=== PATIENT | female | born 1945 | race Hispanic/Latino ===

== ENCOUNTER 2016-06-08 20:24 | Inpatient (IN) | payer MEDICARE ==
[2016-06-08 20:30] VITALS: BMI 37.2
[2016-06-08 21:24] LABS: ADD MANUAL DIFF? NO
--- NOTE | 2016-06-08 21:37 | ED PDOC ---
Arrival/HPI - General Chief Complaint: Shortness Of Breath Time Seen by Provider: 06/08/16 20:31 Historian: Patient - History of Present Illness Narrative History of Present Illness (Text): 06/08/16 21:35 70 year old female with a past medical history that includes COPD and CHF presents to the emergency department with increasing shortness of breath since yesterday. Patient also reports chronic dry cough. Denies chest pain, fever, nausea, or vomiting. Time/Duration: 24 hours Symptom Onset: Gradual Symptom Course: Unchanged Modifying Factors (Text): None Associated Symptoms (Text): None Past Medical History - Provider Review Nursing Documentation Reviewed: Yes - Infectious Disease Hx of Infectious Diseases: None - Tetanus Immunization Tetanus Immunization: Unknown - Cardiac Hx Cardiac Disorders: Yes Hx Congestive Heart Failure: Yes Hx Hypertension: Yes - Pulmonary Hx Chronic Obstructive Pulmonary Disease (COPD): Yes (Home O2 2L) - Neurological Hx Neurological Disorder: Yes - HEENT Hx HEENT Disorder: No - Renal Hx Renal Failure: Yes - Endocrine/Metabolic Hx Diabetes Mellitus Type 2: Yes Hx Hypothyroidism: Yes - Hematological/Oncological Hx Blood Transfusions: No Hx Blood Transfusion Reaction: No - Integumentary Hx Dermatological Disorder: Yes Other/Comment: +3 pitting edema ble redness dry skin, toenail was removed to b/ l great toes " yrs ago". small red area to nose - Musculoskeletal/Rheumatological Hx Falls: No - Gastrointestinal Hx Gastrointestinal Disorders: Yes (obesity) Hx Gastroesophageal Reflux: Yes (GI bleed) - Genitourinary/Gynecological Hx Genitourinary Disorders: Yes Hx Incontinence: Yes - Psychiatric Hx Emotional Abuse: No Hx Physical Abuse: No Hx Substance Use: No - Surgical History Hx Cardiac Catheterization: Yes Hx Hysterectomy: Yes Hx Joint Replacement: Yes (bilateral knee replacement) Other/Comment: L breast lumpectomy, h/o breast CA, rcw pac - Anesthesia Hx Anesthesia Reactions: No Hx Malignant Hyperthermia: No - Suicidal Assessment Feels Threatened In Home Enviroment: No Family/Social History - Physician Review Nursing Documentation Reviewed: Yes Family/Social History: Unknown Family HX Smoking Status: Heavy Smoker > 10 Cigarettes Daily Hx Alcohol Use: No Hx Substance Use: No Hx Substance Use Treatment: No Allergies/Home Meds Allergies/Adverse Reactions: Allergies No Known Allergies Allergy (Verified 06/08/16 20:30) Home Medications: Home Meds Medication Instructions Recorded Confirmed Aspirin [Aspir 81] 81 mg PO DAILY 10/29/12 05/06/16 Furosemide [Lasix] 20 mg PO QPM 01/14/16 05/06/16 Furosemide [Lasix] 40 mg PO QAM 01/14/16 05/06/16 Potassium Chloride [Klor-Con 10] 10 meq PO DAILY 01/14/16 05/06/16 oxyCODONE [oxyCODONE Immediate 1 tab PO Q6H PRN 01/14/16 05/06/16 Release Tab] Review of Systems - Physician Review All systems were reviewed & negative as marked: Yes - Review of Systems Constitutional: absent: Fevers Respiratory: SOB, Cough (chronic) Cardiovascular: absent: Chest Pain Gastrointestinal: absent: Nausea, Vomiting Physical Exam Vital Signs Reviewed: Yes Vital Signs Temp Pulse Resp BP Pulse Ox 06/08/16 21:34 117/61 06/08/16 20:31 98.2 F 82 25 H 117/61 94 L 06/08/16 20:30 98.2 F 82 25 H 117/61 94 L Temperature: Afebrile Blood Pressure: Normal Pulse: Regular Respiratory Rate: Tachypneic Appearance: Positive for: Well-Appearing, Non-Toxic, Comfortable Pain Distress: None Mental Status: Positive for: Alert and Oriented X 3 - Systems Exam Head: Present: Atraumatic, Normocephalic Pupils: Present: PERRL Extroacular Muscles: Present: EOMI Conjunctiva: Present: Normal Mouth: Present: Moist Mucous Membranes Neck: Present: Normal Range of Motion Respiratory/Chest: Present: Good Air Exchange, Rales (at the bases bilaterally) . No: Respiratory Distress, Accessory Muscle Use Cardiovascular: Present: Normal S1, S2, Irregular Rhythm (Irregularly irregular) . No: Murmurs Abdomen: Present: Normal Bowel Sounds. No: Tenderness, Distention, Peritoneal Signs Back: Present: Normal Inspection Upper Extremity: Present: Normal Inspection. No: Cyanosis, Edema Lower Extremity: Present: Edema (Bilateral edema with warmth and redness. ) Neurological: Present: GCS=15, CN II-XII Intact, Speech Normal Skin: Present: Warm, Dry, Normal Color. No: Rashes Psychiatric: Present: Alert, Oriented x 3, Normal Insight, Normal Concentration Medical Decision Making ED Course and Treatment: Impression: 70 year old female with a past medical history that includes COPD and CHF presents to the emergency department with increasing shortness of breath since yesterday. Differential Diagnosis included but are not limited to: COPD exacerbation vs CHF exacerbation Plan: -- EKG, Chest X-ray -- Lasix -- Labs -- Reassess and disposition Prior Visits: Notes and results from previous visits were reviewed. Patient was admitted for cellulitis on 05/06/16. Progress Notes: 06/08/16 21:40 EKG shows atrial fibrillation at 80 BPM, no changes from previous EKG, interpreted by me. . - Lab Interpretations Lab Results: 06/08/16 21:05 06/08/16 21:05 Lab Results 06/08/16 21:05: WBC 8.0 D, RBC 2.73 L, Hgb 7.6 L, Hct 24.8 L, MCV 90.8, MCH 27.8, MCHC 30.6 L, RDW 17.0 H, Plt Count 252, MPV 10.5, Gran % 68.4 H, Lymph % ( Auto) 19.8 L, [place] % (Auto) 8.3 H, Eos % (Auto) 3.1, Baso % (Auto) 0.4, Gran # 5.46, Lymph # 1.6, [place] # 0.7 H, Eos # 0.3, Baso # 0.03, Sodium 136, Potassium 3.6, Chloride 98, Carbon Dioxide 28, Anion Gap 14, BUN 43 H, Creatinine 0.9, Est GFR ( Amer) > 60, Est GFR (Non-Af Amer) > 60, Random Glucose 206 H, Calcium 8.9, Magnesium 1.7, Total Bilirubin 0.5, AST 15, ALT 13, Alkaline Phosphatase 73, Lactate Dehydrogenase 377, Total Creatine Kinase 27 L, Troponin I 0.02 D, NT-Pro-B Natriuret Pep 2350 H, Total Protein 6.2, Albumin 3.7, Globulin 2.6, Albumin/Globulin Ratio 1.4 - RAD Interpretation Radiology Orders: 06/08/16 20:35 CHEST PORTABLE [RAD] Stat - EKG Interpretation Interpreted by ED Physician: Yes Type: 12 lead EKG - Medication Orders Current Medication Orders: Discontinued Medications Furosemide (Lasix) 40 mg IVP STAT STA Stop: 06/08/16 20:58 Last Admin: 06/08/16 21:34 Dose: 40 MG MAR Blood Pressure Document 06/08/16 21:34 [email or web address] (Rec: 06/08/16 21:34 [email or web address] [id number]) Blood Pressure Blood Pressure (100/60-150/90) 117/61 IVP Administration Document 06/08/16 21:34 [email or web address] (Rec: 06/08/16 21:34 [email or web address] [id number]) Charges for Administration # of IVP Administrations 1 - Scribe Statement The provider has reviewed the documentation as recorded by the Martina Virk Provider Scribe Attestation: All medical record entries made by the Martina were at my direction and personally dictated by me. I have reviewed the chart and agree that the record accurately reflects my personal performance of the history, physical exam, medical decision making, and the department course for this patient. I have also personally directed, reviewed, and agree with the discharge instructions and disposition. Disposition/Present on Arrival - Present on Arrival Any Indicators Present on Arrival: No History of DVT/PE: No History of Uncontrolled Diabetes: No Urinary Catheter: No History of Decub. Ulcer: No History Surgical Site Infection Following: None - Disposition Have Diagnosis and Disposition been Completed?: Yes Diagnosis: CHF (congestive heart failure) Disposition: HOSPITALIZED Disposition Time: 23:00 Patient Plan: Admission, Telemetry Condition: STABLE Discharge Instructions (ExitCare): Heart Failure (ED)
[2016-06-08 22:04] LABS: BASO # 0.03 K/mm3 (0.0-2.0); BASO % 0.4 % (0.0-3.0); EOS # 0.3 (0.0-0.7); EOS % 3.1 % (1.5-5.0); GRAN # 5.46 (1.4-6.5); GRAN % 68.4 % (50.0-68.0); HEMATOCRIT 24.8 % (36.0-48.0); LYMPH # 1.6 (1.2-3.4); LYMPH % 19.8 % (22.0-35.0); MEAN CELL VOLUME 90.8 fL (80.0-105.0); MEAN CORPUSCULAR HEMOGLOBIN 27.8 pg (25.0-35.0); MEAN CORPUSCULAR HGB CONC 30.6 g/dl (31.0-37.0); MEAN PLATELET VOLUME 10.5 fl (7.0-11.0); MONO # 0.7 (0.1-0.6); MONO % 8.3 % (1.0-6.0); PLATELET COUNT 252 10^3/uL (120.0-450.0)
[2016-06-08 22:08] LABS: ALB/GLOB RATIO 1.4 (1.1-1.8); ALKALINE PHOSPHATASE 73 U/L (38-133); ALT/SGPT 13 U/L (7-56); AST/SGOT 15 U/L (15-39); BILIRUBIN,TOTAL 0.5 mg/dL (0.2-1.3); BLOOD UREA NITROGEN 43 mg/dL (7-21); CALCIUM 8.9 mg/dL (8.4-10.5); CARBON DIOXIDE 28 mmol/L (21-33); CHLORIDE 98 mmol/L (98-107); GFR AFRICAN-AMERICAN > 60; GLUCOSE,RANDOM 206 mg/dL (70-110); MAGNESIUM 1.7 mg/dL (1.7-2.2); POTASSIUM 3.6 mmol/L (3.6-5.0); SODIUM 136 mmol/L (132-148); TOTAL PROTEIN 6.2 g/dL (5.8-8.3)
[2016-06-08 22:19] LABS: TROPONIN I 0.02 ng/mL
[2016-06-08] MEDS ORDERED: Albuterol-Ipratrop 3 mg / 0.5 (3 ml) UD IH PRN ×2 (23:17→23:19)
[2016-06-08] MEDS ORDERED: Oxycodone/Acetaminophen 5/325 mg Tab PO PRN (23:19)
[2016-06-09 00:07] LABS: URINE BILIRUBIN NEGATIVE (NEGATIVE); URINE BLOOD SMALL (NEGATIVE); URINE GLUCOSE (UA) NEGATIVE (NEGATIVE); URINE KETONE NEGATIVE (NEGATIVE); URINE LEUKOCYTE ESTERASE SMALL Leu/uL (NEGATIVE); URINE PROTEIN NEGATIVE mg/dL (<30 mg/dL); URINE UROBILINOGEN 0.2 E.U./dL (<1 E.U./dL)
[2016-06-09 00:09] LABS: URINE APPEARANCE SLIGHT-CLOUDY (CLEAR); URINE COLOR YELLOW (YELLOW)
[2016-06-09 00:25] LABS: URINE BACTERIA SMALL (NEG)
[2016-06-09] MEDS: Pantoprazole 40 mg EC Tab PO SCH (06:35)
[2016-06-09 06:45] LABS: ADD MANUAL DIFF? NO
[2016-06-09 07:10] LABS: BASO # 0.01 K/mm3 (0.0-2.0); BASO % 0.1 % (0.0-3.0); EOS # 0.3 (0.0-0.7); EOS % 3.7 % (1.5-5.0); GRAN % 58.2 % (50.0-68.0); HEMATOCRIT 25.9 % (36.0-48.0); LYMPH # 1.9 (1.2-3.4); MEAN CELL VOLUME 89.9 fL (80.0-105.0); MEAN CORPUSCULAR HEMOGLOBIN 27.4 pg (25.0-35.0); MEAN CORPUSCULAR HGB CONC 30.5 g/dl (31.0-37.0); MEAN PLATELET VOLUME 10.4 fl (7.0-11.0); MONO # 0.7 (0.1-0.6); PLATELET COUNT 220 10^3/uL (120.0-450.0); WHITE BLOOD COUNT 6.7 10^3/ul (4.5-11.0)
[2016-06-09 07:12] LABS: ALB/GLOB RATIO 1.3 (1.1-1.8); ALKALINE PHOSPHATASE 72 U/L (38-133); ALT/SGPT 16 U/L (7-56); AST/SGOT 18 U/L (15-39); BILIRUBIN,TOTAL 0.4 mg/dL (0.2-1.3); BLOOD UREA NITROGEN 43 mg/dL (7-21); CALCIUM 9.2 mg/dL (8.4-10.5); CARBON DIOXIDE 31 mmol/L (21-33); CHLORIDE 98 mmol/L (98-107); GFR AFRICAN-AMERICAN > 60; GLUCOSE,RANDOM 172 mg/dL (70-110); MAGNESIUM 1.8 mg/dL (1.7-2.2); PHOSPHOROUS 3.9 mg/dL (2.5-4.5); POTASSIUM 3.7 mmol/L (3.6-5.0); SODIUM 140 mmol/L (132-148); TOTAL PROTEIN 6.2 g/dL (5.8-8.3)
[2016-06-09 07:15] LABS: TROPONIN I 0.03 ng/mL
[2016-06-09 07:24] LABS: INR 4.46 (0.93-1.08)
[2016-06-09] MEDS: Insulin Reg-MEDIUM-Coverage SC SCH ×4 (07:52→22:42)
[2016-06-09] MEDS ORDERED: Insulin Regular 1 UNITS/0.01 ML ML ONE (07:53)
--- NOTE | 2016-06-09 10:04 | CARD ---
APPROVED REPORT EKG Measurement Heart [id number] <Conclusion> Atrial fibrillation Anterior infarct, old IMI, old STTW changes c/w ischemia No change
[2016-06-09] MEDS: Potassium Chloride 10 mEq ER Tab PO SCH (11:20)
--- NOTE | 2016-06-09 12:04 | RAD ---
HISTORY: SOB COMPARISON: Comparison is made to the previous study dated 05/06/2016 FINDINGS: LUNGS: Mild pulmonary vascular congestion is noted. PLEURA: No significant pleural effusion identified, no pneumothorax apparent. CARDIOVASCULAR: The cardiac silhouette is enlarged. OSSEOUS STRUCTURES: No significant abnormalities. VISUALIZED UPPER ABDOMEN: Normal. OTHER FINDINGS: Right-sided subclavian catheter is seen in place. IMPRESSION: Cardiomegaly and mild pulmonary vascular congestion.
[2016-06-09] MEDS ORDERED: Levalbuterol 1.25 MG/3 ML Inhal Soln UD IH PRN (12:13)
[2016-06-09] MEDS: Tiotropium 18 mcg Cap For Inhalation IH SCH (12:38)
--- NOTE | 2016-06-09 13:30 | HP ---
HISTORY OF PRESENT ILLNESS: The patient is a 70-year-old who came to Emergency Room because of incre asing cough, congestion and bilateral leg swelling. She denies any fever or chills. She denies any nausea or vomiting. She did not have black stool nor hemoptysis, no hematemesis. She does have occa sional dry cough, but no fever or chills noted at home. However, she did complain of increasing shor tness of breath that was going on for the last few days, but it got worse last night, so she came to the ER. PAST MEDICAL HISTORY: Significant for: 1. Hypertension. 2. Coronary artery disease, status post cardiac cath. She was found to have portal RCA occlusion wi th good collateral development. 3. History of pulmonary hypertension. 4. Congestive gastropathy. 5. Cardiac cirrhosis. 6. Morbid obesity. 7. Status post right carotid endarterectomy. 8. Non-insulin dependent diabetes. 9. Chronic anemia, status post multiple endoscopies. 10. Chronic atrial fibrillation. 11. Chronic anemia. ALLERGIES: She is not allergic to any medications. MEDICATIONS AT HOME: She is on hydralazine 50 mg twice a day. She is on Coumadin 5 mg daily, valsar [place] 320 daily, Spiriva 18 mcg daily. She is on Janumet one twice a day, potassium 10 mEq debo ly, nadolol 20 mg daily, isosorbide 60 mg daily, Amaryl 4 mg twice a day, Lasix 20 mg daily, Advair 2 50/50 one puff twice a day, aspirin 81 daily and nebulizer treatment. SOCIAL HISTORY: She lives by herself. She has a daughter who lives a little distance from the [facility], but in the same town. She actively smokes almost half pack a day. REVIEW OF SYSTEMS: Significant for leg swelling, increasing shortness of breath and generalized body aches and pain. PHYSICAL EXAMINATION: GENERAL: She is awake and alert, communicative. VITAL SIGNS: She is afebrile, pulse 78, respirations 22, blood pressure 124/60. LUNGS: Bilateral expiratory rhonchi. Soft crackle at bases. HEART: S1, S2 audible. ABDOMEN: Soft, obese, nontender, no rebound, no guarding. NEUROLOGIC: The patient is awake and alert, communicative. EXTREMITIES: Bilateral leg +2 edema. LABORATORY EXAMINATION: Upon admission, her WBC 8.0, hemoglobin 7.6; followup hemoglobin is 7.9, hem atocrit 25.9 and PT is 48.2, INR 4.46. Chemistry: Sodium 140, potassium 3.7, chloride 98, CO2 31, B UN 43, creatinine 0.9, blood sugar 174. BNP is 2350. Urinalysis shows positive nitrites and leukocy te is small. Her x-ray chest shows cardiomegaly and mild pulmonary vascular congestion. ASSESSMENT AND PLAN: 1. Chronic obstructive pulmonary disease exacerbation. 2. Congestive heart failure exacerbation. 3. Non-insulin dependent diabetes. 4. Coronary artery disease. 5. Chronic atrial fibrillation. 6. Hypertension. 7. Pulmonary hypertension. 8. Congestive gastropathy. 9. Morbid obesity. 10. Acute on chronic anemia. PLAN: Given patient's comorbidities, will transfuse 1 pack RBCs. Will continue to diurese. Follow up H and H in the a.m. Continue on her own nebulizer treatment and will hold Coumadin today. Willie holloway follow up patient in the a.m. Edwige Kirby MD cc: [phone] TT: 06/09/2016 13:30:20 kareem
--- NOTE | 2016-06-09 16:40 | CON ---
DATE: 06/09/2016 REASON FOR CONSULTATION AND FOLLOWUP: Cardiac evaluation, history of chronic atrial fibrillation, one vessel coronary artery disease, admitted with complaint of cough, congestion, shortness of breath. BRIEF CLINICAL HISTORY: This is a 70-year-old morbidly obese female with past medical history of tobacco abuse, active pulmonary hypertension, diabetes, hypertension, hyperlipidemia, chronic atrial fibrillation, coronary artery disease. Came to the ER with complaint of shortness of breath, cough, congestion. PAST MEDICAL HISTORY: Significant for diabetes, hypertension, hyperlipidemia, chronic atrial fibrillation, morbid obesity, congestive heart failure, history of single vessel RCA totally occluded very ____ LAD, cardiac cath 2-1/2 years ago, chronic atrial fibrillation, hypertension, hyperlipidemia, obesity, pulmonary hypertension. History of GI bleed, on Coumadin. PREVIOUS CARDIAC WORKUP: As follows: History of cardiac catheterization 2-1/2 years ago, one vessel coronary artery disease, RCA ____ from LAD. RCA is total. Most recently, patient had a DARIUS, transesophageal echo done to rule out endocarditis, dated 04/07/2016, that shows ejection fraction 65%, atrial fibrillation, trace aortic regurgitation, moderate valvular aortic stenosis, valve area 1 cm2 by planimetry and continuity equation. Peak gradient across the aortic valve was 21 mmHg. Mitral regurgitation was moderate to severe, mild tricuspid regurgitation, moderate plaque in descending aorta, velocity in left atrial appendage less than 0.4 meter per second. No vegetation noted, dated 04/07/2016. SOCIAL HISTORY: He claims that she quits but in fact still smokes a half a pack a day. ALLERGIES: No known drug allergy. CURRENT MEDICATIONS: The patient is taking at home oxycodone, hydralazine, warfarin, valsartan, Spiriva, potassium chloride, nadolol, Cozaar, isosorbide mononitrate, glimepiride, Amaryl, Lasix 40 in the morning and 20 mg at noon, aspirin, and albuterol inhaler. REVIEW OF SYSTEMS: As per HPI. PHYSICAL EXAMINATION: As follows: VITAL SIGNS: Temperature afebrile, heart rate 66, blood pressure 121/60. HEENT: PERRLA. Extraocular muscles intact. NECK: Supple. No carotid bruits. No thyromegaly. CHEST: Clear to auscultation. HEART: S1, S2 regular. ABDOMEN: Soft. EXTREMITIES: Clubbing and cyanosis negative. BLOOD WORKUP: As follows: WBC 6.7, hemoglobin 7.9, hematocrit 25.9, platelet count 220. Chemistry shows sodium 140, potassium 3.7, chloride 90, carbon dioxide 31, anion gap of 15, BUN 43, creatinine 0.9. Troponin 0.03, negative. INR 4.46. IMPRESSION: Supratherapeutic INR, chronic atrial fibrillation, anemia, history of gastrointestinal bleed, morbid obesity, active tobacco abuse, one vessel coronary artery disease, status post cardiac catheterization 2-1/2 years ago, right coronary artery totally occluded, status post recently transesophageal echocardiogram on 04/07/2016 that shows moderate aortic stenosis, valve area 1 cm2, [id number] mitral regurgitation, moderate tricuspid regurgitation, preserved left ventricular function, ejection fraction 60% to 65%. RECOMMENDATION: Continue Lasix. Hold Coumadin. Closely monitor for drop in H and H. We will try not to reverse at this time, but see the trend of PT/INR. If the trend up, then we can reverse it. Otherwise, we will resume all previous medication including nadolol, valsartan, ____, isosorbide. Continue IV Lasix daily. We will follow with you. Thank you, Dr. Kirby, for providing the opportunity in taking care of the patient. We will follow with you. We will get lipid profile, TSH, and hemoglobin A1c as well. Thank you, Dr. Kirby, for providing the opportunity in taking care of the patient. Brianna Sandra MD cc: Edwige Kirby MD [phone] TT: 06/09/2016 16:39:22 Confirmation # [id number] Dictation # [id number] sn [email or web address]
[2016-06-10] MEDS: Pantoprazole 40 mg EC Tab PO SCH (06:33)
[2016-06-10 07:27] LABS: ADD MANUAL DIFF? NO
[2016-06-10 07:29] LABS: BASO # 0.01 K/mm3 (0.0-2.0); BASO % 0.1 % (0.0-3.0); EOS # 0.2 (0.0-0.7); EOS % 2.7 % (1.5-5.0); GRAN % 71.6 % (50.0-68.0); HEMATOCRIT 25.7 % (36.0-48.0); LYMPH # 1.3 (1.2-3.4); MEAN CELL VOLUME 89.9 fL (80.0-105.0); MEAN CORPUSCULAR HEMOGLOBIN 27.6 pg (25.0-35.0); MEAN CORPUSCULAR HGB CONC 30.7 g/dl (31.0-37.0); MEAN PLATELET VOLUME 10.3 fl (7.0-11.0); MONO # 0.7 (0.1-0.6); MONO % 8.6 % (1.0-6.0); PLATELET COUNT 239 10^3/uL (120.0-450.0); RED CELL DISTRIBUTION WIDTH 16.9 % (11.5-14.5); WHITE BLOOD COUNT 7.8 10^3/ul (4.5-11.0)
[2016-06-10 07:30] LABS: INR 2.77 (0.93-1.08)
[2016-06-10 07:38] LABS: ALB/GLOB RATIO 1.3 (1.1-1.8); ALKALINE PHOSPHATASE 71 U/L (38-133); ALT/SGPT 16 U/L (7-56); AST/SGOT 22 U/L (15-39); BILIRUBIN,TOTAL 0.5 mg/dL (0.2-1.3); BLOOD UREA NITROGEN 41 mg/dL (7-21); CALCIUM 9.5 mg/dL (8.4-10.5); CARBON DIOXIDE 35 mmol/L (21-33); CHLORIDE 98 mmol/L (98-107); CHOLESTEROL 185 mg/dL (130-200); GFR AFRICAN-AMERICAN > 60; GLUCOSE,RANDOM 76 mg/dL (70-110); MAGNESIUM 1.8 mg/dL (1.7-2.2); PHOSPHOROUS 3.8 mg/dL (2.5-4.5); POTASSIUM 4.3 mmol/L (3.6-5.0); SODIUM 140 mmol/L (132-148); TOTAL PROTEIN 6.3 g/dL (5.8-8.3)
[2016-06-10] MEDS: Insulin Reg-MEDIUM-Coverage SC SCH ×4 (07:57→22:00)
[2016-06-10] MEDS: Potassium Chloride 10 mEq ER Tab PO SCH (10:11)
[2016-06-10] MEDS: Tiotropium 18 mcg Cap For Inhalation IH SCH (10:12)
--- NOTE | 2016-06-10 12:49 | PN ---
DATE: 06/10/2016 REASON FOR CONSULTATION AND FOLLOWUP: Cardiac evaluation, history of chronic atrial fibrillation, ad mitted with shortness of breath, severe anemia, decompensated congestive heart failure. BRIEF CLINICAL HISTORY: This is a 70-year-old morbidly obese female with a past medical history of t obacco abuse, pulmonary hypertension, diabetes, hypertension, hyperlipidemia, chronic atrial fibrilla tion, COPD, who came with leg swelling and shortness of breath, found to be severely anemic. Repeat hemoglobin today is 7.5. Did not get blood but in the preparation of getting blood. PHYSICAL EXAMINATION: VITAL SIGNS: Temperature afebrile, heart rate ____, blood pressure 118/62. HEENT: PERRLA. Extraocular muscles intact. NECK: Supple. No carotid bruit or thyromegaly. CHEST: Clear to auscultation. HEART: S1, S2 regular. ABDOMEN: Soft. EXTREMITIES: Clubbing and cyanosis negative. BLOOD WORKUP: WBC 7.____, hemoglobin 7.9, hematocrit 25.7, platelet count 239. Chemistry shows sodi um 140, potassium 4.____, chloride ____, carbon dioxide 35, anion gap of 11, BUN 41, creatinine 1.0. BNP 2550. IMPRESSION: Morbid obesity, body mass index 37.5 kg/m2; diabetes, hypertension, hyperlipidemia; carina nary artery disease, 1-vessel coronary artery disease, right coronary artery totally occluded, well c ollateralized from left anterior descending; moderate aortic stenosis, valve area 1 cm2 by planimetry and continuity equation; congestive heart failure secondary to diastolic dysfunction as well as anem ia; ejection fraction 65% by last transesophageal echocardiogram dated 04/07/2016; severe anemia. RECOMMENDATION: Will give 2 units of packed RBCs. Today INR is 2.77, therapeutic. Give the Lasix i n between. Continue hydralazine. Avoid nephrotoxic medication. Supplement potassium, electrolytes as needed. Repeat the blood workup in the morning. Continue diuretics. Will follow with you. Thank you, Dr. Kirby, for providing the opportunity in taking care of this patient. Will discontin ue telemetry. Brianna Sandra MD cc: [phone] TT: 06/10/2016 12:49:24 Confirmation # [id number] Dictation # [id number] mn
[2016-06-10] MEDS: metOLazone 2.5 MG TAB PO SCH (13:19)
--- NOTE | 2016-06-10 14:27 | PN ---
DATE: 06/10/2016 The patient is a 70-year-old, seen and examined. She came in with increasing shortness of breath. S he was supposed to get blood transfusion yesterday but did not happen, and patient received 1 blood t ransfusion this morning. No complaint of chest pain, no shortness of breath. The patient complained of feeling tired. No nausea, vomiting. No diarrhea. PHYSICAL EXAMINATION: VITAL SIGNS: She is afebrile, pulse 70, respirations 18, blood pressure 118/62. LUNGS: Bilateral fair airflow. No rhonchi. A few soft crackles at bases. HEART: S1, S2 audible. ABDOMEN: Soft, obese, nontender. No rebound, no guarding. NEUROLOGIC: The patient is awake and alert, communicative. Moves all extremities. EXTREMITIES: Bilateral legs positive cellulitis and +2 edema. LABORATORY EXAM: WBC 7.8, hemoglobin 7.9, hematocrit 25.7, platelets 239 before transfusion. Her PT is 29.9, INR 2.77. Chemistry: Sodium 140, potassium 4.3, chloride 98, CO2 35, BUN 41, creatinine 1 .0, blood sugar of 55, hemoglobin A1c 6.6. ASSESSMENT AND PLAN: 1. Congestive heart failure exacerbation. 2. The patient has episode of bradycardia and 2 pauses at different timings. 3. Chronic obstructive pulmonary disease. 4. Pulmonary hypertension. 5. Bradycardia. 6. Hypertension. 7. Noninsulin-dependent diabetes. 8. Coronary artery disease, status post cardiac catheterization a year and a half or so ago and was found to have complete right coronary artery occlusion with collaterals. 9. Gastritis and congestive gastropathy. PLAN: Will continue patient on Xopenex, glimepiride and metformin. She is getting Spiriva. She is on Protonix and analgesic as needed. I will increase her Lasix. I will add metolazone, as she usual ly responds well to metolazone. I will add 2.5 mg metolazone daily. She will get a second blood tra nsfusion and will follow up her CBC and CMP in the a.m. Edwige Kirby MD cc: [phone] TT: 06/10/2016 14:27:01 Confirmation # [id number] Dictation # [id number] mn
[2016-06-11] MEDS: Pantoprazole 40 mg EC Tab PO SCH (06:08)
[2016-06-11 07:17] LABS: ADD MANUAL DIFF? NO
[2016-06-11 07:30] LABS: BASO # 0.01 K/mm3 (0.0-2.0); BASO % 0.1 % (0.0-3.0); EOS # 0.3 (0.0-0.7); EOS % 3.7 % (1.5-5.0); GRAN # 4.42 (1.4-6.5); GRAN % 66.1 % (50.0-68.0); HEMATOCRIT 29.7 % (36.0-48.0); LYMPH # 1.3 (1.2-3.4); MEAN CELL VOLUME 88.1 fL (80.0-105.0); MEAN CORPUSCULAR HEMOGLOBIN 27.9 pg (25.0-35.0); MEAN CORPUSCULAR HGB CONC 31.6 g/dl (31.0-37.0); MEAN PLATELET VOLUME 10.1 fl (7.0-11.0); MONO # 0.7 (0.1-0.6); MONO % 11.1 % (1.0-6.0); PLATELET COUNT 223 10^3/uL (120.0-450.0); RED CELL DISTRIBUTION WIDTH 15.9 % (11.5-14.5); WHITE BLOOD COUNT 6.7 10^3/ul (4.5-11.0)
[2016-06-11 08:01] LABS: ALB/GLOB RATIO 1.3 (1.1-1.8); ALKALINE PHOSPHATASE 69 U/L (38-133); ALT/SGPT 19 U/L (7-56); AST/SGOT 23 U/L (15-39); BILIRUBIN,TOTAL 0.8 mg/dL (0.2-1.3); BLOOD UREA NITROGEN 33 mg/dL (7-21); CALCIUM 9.1 mg/dL (8.4-10.5); CARBON DIOXIDE 36 mmol/L (21-33); CHLORIDE 94 mmol/L (98-107); GFR AFRICAN-AMERICAN > 60; GLUCOSE,RANDOM 75 mg/dL (70-110); MAGNESIUM 1.8 mg/dL (1.7-2.2); PHOSPHOROUS 3.7 mg/dL (2.5-4.5); POTASSIUM 3.5 mmol/L (3.6-5.0); SODIUM 137 mmol/L (132-148); TOTAL PROTEIN 6.5 g/dL (5.8-8.3)
[2016-06-11] MEDS: Insulin Reg-MEDIUM-Coverage SC SCH ×4 (08:01→22:21)
[2016-06-11] MEDS ORDERED: Potassium Chloride 20 mEq ER Tab PO ONE (10:20)
[2016-06-11] MEDS: Tiotropium 18 mcg Cap For Inhalation IH SCH (10:22)
[2016-06-11] MEDS: metOLazone 2.5 MG TAB PO SCH (10:22)
[2016-06-11] MEDS: Potassium Chloride 10 mEq ER Tab PO SCH (10:22)
--- NOTE | 2016-06-11 11:46 | RAD ---
HISTORY: F/U pneumonia Vs CHF and compare COMPARISON: No prior. TECHNIQUE: Chest PA and lateral FINDINGS: LUNGS: The pulmonary vasculature appears less congested. Suspect bibasilar atelectasis. No change right subclavian catheter with tip in the SVC PLEURA: No significant pleural effusion identified. No pneumothorax apparent. CARDIOVASCULAR: Cardiomegaly. OSSEOUS STRUCTURES: No significant abnormalities. VISUALIZED UPPER ABDOMEN: Normal. OTHER FINDINGS: None. IMPRESSION: Cardiomegaly. Mild bibasilar atelectasis. Pulmonary vasculature appears less congested.
[2016-06-11] MEDS: Nystatin-Triamcinolone Cream(30 gm) TOP SCH (17:58)
--- NOTE | 2016-06-11 19:58 | PN ---
DATE: 06/11/2016 The patient is 70 years old, seen and examined lying in bed. Complained of generalized weakness. Co mplained of leg swelling and redness. Complained of generalized weakness. Eating and tolerating. VITAL SIGNS: She is afebrile, pulse 75, respirations 18, blood pressure 137/60. LUNGS: Bilateral good airflow. No rhonchi or crackle. HEART: S1, S2 audible. No murmur. ABDOMEN: Soft, obese, nontender. No guarding. NEUROLOGICALLY: The patient is awake and alert, communicative. Moves all extremities. Bilateral legs +1 edema. LABORATORY EXAMINATION: WBC 6.7, hemoglobin 9.4, hematocrit 29.7, platelet 223. PTT 29.9, INR 2.77. Chemistry: Sodium 137, potassium 3.5, chloride 94, CO2 of 36, BUN 33, creatinine 0.9. Blood sugar of 76. Urine analysis shows Escherichia coli UTI that is sensitive to Cipro, nitrofurantoin, and Ro cephin. ASSESSMENT AND PLAN: 1. Chronic obstructive pulmonary disease exacerbation. 2. . 3. Symptomatic anemia. 4. Congestive heart failure exacerbation. 5. Non-insulin dependent diabetes. 6. Hypertension. 7. Hyperlipidemia. 8. Non-insulin dependent diabetes. 9. Pulmonary hypertension. 10. Congestive gastropathy. 11. Escherichia coli urinary tract infection. PLAN: Will start the patient on Rocephin. Will monitor her blood sugar. Physical therapy evaluatio n has been requested, and TCU evaluation has been requested also. If patient is accepted, she can be transferred to TCU. Edwige Kirby MD cc: [phone] TT: 06/11/2016 19:57:36 Confirmation # [id number] Dictation # [id number] kulwinder
--- NOTE | 2016-06-11 20:36 | PN ---
DATE: 06/11/2016 REASON FOR CONSULTATION AND FOLLOWUP: Cardiac evaluation, history of chronic atrial fibrillation, ad mitted with shortness of breath, severe anemia, decompensated congestive heart failure, status post 2 units of packed RBCs. BRIEF CLINICAL HISTORY: A 70-year-old female, morbidly obese, with past medical history significant for tobacco abuse, pulmonary hypertension, diabetes, hypertension, hyperlipidemia, chronic atrial fib rillation, COPD, who came in with leg swelling and shortness of breath, found to be hemoglobin 7.5. Yesterday patient got 2 units of packed RBCs. Lying flat. Denies any chest pain, denies any shortne ss of breath. PHYSICAL EXAMINATION: VITAL SIGNS: Temperature afebrile, heart rate 60, blood pressure 135/60. HEENT: PERRLA. Extraocular muscles intact. NECK: Supple. No carotid bruits. No thyromegaly. CHEST: Clear to auscultation. HEART: S1, S2 regular. ABDOMEN: Soft. EXTREMITIES: Clubbing and cyanosis negative. LABORATORY DATA: Blood workup as follows: WBC ____, hemoglobin ____, hematocrit 29.7, platelet coun t 223. Chemistry shows sodium 137, potassium 3.5, chloride 94, carbon dioxide 36, anion gap of 11, B UN ____, creatinine 0.9. IMPRESSION: Chronic atrial fibrillation, diabetes, hypertension, hyperlipidemia, morbid obesity, cor onary artery disease, 1 vessel, right coronary artery totally occluded, very well collateralized from left anterior descending, moderate aortic stenosis, valve area ____ cm2, chronic obstructive pulmona ry disease, pulmonary hypertension, severe anemia, status post 2 packed RBC transfusion. RECOMMENDATION: Monitor H and H. Resume back Coumadin. Goal is to keep INR between 2 and 2.5. We w ill give 1 mg of Coumadin today and PT/INR in the morning. We will follow with you. Since the INR i s not available, we will not give Coumadin today. Will repeat lab in the morning depending upon ____ will follow the Coumadin level. Supplement potassium. We will check the lab in the morning. Thank you, Dr. Kriby, for providing the opportunity in taking care of this patient. Brianna Sandra MD cc:Edwige Kirby MD [phone] TT: 06/11/2016 20:36:07 Confirmation # [id number] Dictation # [id number] rn
[2016-06-12] MEDS: Pantoprazole 40 mg EC Tab PO SCH (05:36)
[2016-06-12 08:18] LABS: ADD MANUAL DIFF? NO
[2016-06-12 08:24] LABS: BASO # 0.02 K/mm3 (0.0-2.0); BASO % 0.3 % (0.0-3.0); EOS # 0.3 (0.0-0.7); EOS % 3.5 % (1.5-5.0); GRAN # 5.12 (1.4-6.5); GRAN % 69.3 % (50.0-68.0); HEMATOCRIT 32.6 % (36.0-48.0); LYMPH # 1.3 (1.2-3.4); LYMPH % 18.1 % (22.0-35.0); MEAN CELL VOLUME 88.8 fL (80.0-105.0); MEAN CORPUSCULAR HEMOGLOBIN 27.5 pg (25.0-35.0); MEAN PLATELET VOLUME 9.5 fl (7.0-11.0); MONO # 0.7 (0.1-0.6); MONO % 8.8 % (1.0-6.0); PLATELET COUNT 232 10^3/uL (120.0-450.0); RED CELL DISTRIBUTION WIDTH 15.7 % (11.5-14.5); WHITE BLOOD COUNT 7.4 10^3/ul (4.5-11.0)
[2016-06-12 08:29] LABS: INR 1.2 (0.93-1.08)
[2016-06-12] MEDS: Insulin Reg-MEDIUM-Coverage SC SCH ×4 (08:32→22:34)
[2016-06-12 09:11] LABS: ALB/GLOB RATIO 1.3 (1.1-1.8); ALKALINE PHOSPHATASE 70 U/L (38-133); ALT/SGPT 15 U/L (7-56); AST/SGOT 22 U/L (15-39); BILIRUBIN,TOTAL 0.7 mg/dL (0.2-1.3); BLOOD UREA NITROGEN 32 mg/dL (7-21); CALCIUM 9.5 mg/dL (8.4-10.5); CARBON DIOXIDE 35 mmol/L (21-33); CHLORIDE 95 mmol/L (98-107); GFR AFRICAN-AMERICAN > 60; GLUCOSE,RANDOM 112 mg/dL (70-110); MAGNESIUM 1.9 mg/dL (1.7-2.2); PHOSPHOROUS 3.7 mg/dL (2.5-4.5); POTASSIUM 4.1 mmol/L (3.6-5.0); SODIUM 139 mmol/L (132-148); TOTAL PROTEIN 6.7 g/dL (5.8-8.3)
[2016-06-12] MEDS: Potassium Chloride 10 mEq ER Tab PO SCH (11:19)
[2016-06-12] MEDS: metOLazone 2.5 MG TAB PO SCH (11:21)
[2016-06-12] MEDS: Tiotropium 18 mcg Cap For Inhalation IH SCH (11:23)
[2016-06-12] MEDS: cefTRIAXone 1 gm 100 ML IVPB SCH (11:23)
[2016-06-12] MEDS: Nystatin-Triamcinolone Cream(30 gm) TOP SCH ×2 (11:23→17:02)
[2016-06-12] MEDS: Oxycodone/Acetaminophen 5/325 mg Tab PO PRN ×2 (12:24→16:56)
--- NOTE | 2016-06-12 13:33 | PN ---
DATE: 06/12/2016 SUBJECTIVE: The patient is 70 years old, seen and examined, sitting in chair, complaining of pain in the left foot close to the heel. Probably heel spur, having difficulty walking because of that. Chi shah thinks because of that she probably fell at home. PHYSICAL EXAMINATION: VITAL SIGNS: She is afebrile, pulse 60, respirations 20, blood pressure 140/70. LUNGS: Bilateral good airflow, no rhonchi or crackle. HEART: S1, S2 audible. No murmur. ABDOMEN: Soft, obese, nontender, no rebound, no guarding. NEUROLOGIC: She is awake and alert, communicative, able to ambulate. EXTREMITIES: Left heel, she has palpable discomfort close to her heel area, more so on lateral aspec t, but no erythema, no lump palpable. LABORATORY EXAMINATION: WBC 7.4, hemoglobin 10, hematocrit 32.6, platelet of 232. PT is 13.0, INR 1 .20. Chemistry: Sodium 139, potassium 4.1, chloride 95, CO2 35, BUN 32, creatinine 0.9, blood sugar of 221. Has urine culture positive for E. coli sensitive to Rocephin. ASSESSMENT: 1. Congestive heart failure exacerbation. 2. Chronic obstructive pulmonary disease exacerbation. 3. Escherichia coli urinary tract infection. 4. Left heel calcaneal spur, difficulty walking because of that 5. Deconditioning and difficulty walking. PLAN: We will continue patient on current medication. I will give her 10 mg of Coumadin today and w ill monitor her PT/INR. TCU evaluation has been requested. If she is accepted, she will be transfer red to TCU when bed available. Edwige Kirby MD cc: [phone] TT: 06/12/2016 13:32:28 Confirmation # [id number] Dictation # [id number] tn
--- NOTE | 2016-06-12 14:45 | RAD ---
PROCEDURE: Left Foot Radiographs. HISTORY: Pain. No history of recent/ related trauma provided, anatomic area of interest left heel COMPARISON: None. FINDINGS: BONES: Plantar and Achilles Tendon insertion calcaneal spurs JOINTS: The ankle mortise is intact including the anatomic relationships of the distal tibia, fibula and talus. SOFT TISSUES: No appreciable soft tissue swelling. OTHER FINDINGS: Hallux valgus deformity noted. IMPRESSION: No acute findings related to/accounting for the clinical presentation.
--- NOTE | 2016-06-12 20:41 | PN ---
DATE: 06/12/2016 Room 372, bed 1. REASON FOR CONSULTATION AND FOLLOWUP: Chronic atrial fibrillation, shortness of breath, severe anemi a, decompensated congestive heart failure, status post packed cell transfusions. HISTORY OF PRESENT ILLNESS: A 70-year-old female, morbidly obese, with past medical history signific ant for tobacco abuse, pulmonary hypertension, diabetes, hypertension, hyperlipidemia, chronic atrial fibrillation, COPD, was admitted with swelling of legs and shortness of breath; found to have hemogl obin 7.5. The patient received 2 units of packed RBCs. The patient is sitting in chair comfortably without chest pain, shortness of breath, palpitation. The patient on examination: VITAL SIGNS: Blood pressure 100/58, respirations 18, pulse 73, temperature 98.6. HEAD: Normocephalic. EYES: Pupils normal, conjunctivae slightly pale. NECK: JVP low. Carotids equal. THORAX: AP diameter normal. LUNGS: Clear. CARDIOVASCULAR: S1, S2. Irregular rhythm due to atrial fibrillation. ABDOMEN: Soft, nontender, no organomegaly. EXTREMITIES: No clubbing, no cyanosis. LABORATORIES: WBC 7.4, hemoglobin 10.1, hematocrit 32.6, platelet 232. Sodium 139, potassium 4.1, B UN 32, creatinine 0.9. Random sugar 191, blood sugar level 112. Calcium, phosphorus, magnesium, AST , ALT, total protein, and albumin normal. DIAGNOSES: Chronic atrial fibrillation, diabetes, hypertension, hyperlipidemia, morbid obesity. Cor onary artery disease, 1 vessel right coronary artery which is totally occluded, very well collaterali zed from left anterior descending artery. Moderate aortic stenosis, chronic obstructive pulmonary di sease, pulmonary hypertension, severe anemia, status post RBC transfusion. PLAN: The patient's prothrombin time today is 13.0, INR 1.20, and at time of admission, the patient' s prothrombin time was at 48.2 and INR 4.46. The patient on 10 mg b.i.d., warfarin 10 mg p.o. for today has been ordered by Dr. Kofi june. Diovan 320 p.o. daily and DuoNeb hand nebulizer therapy, aspirin 81 mg daily, isosorbide mono 60 p.o. daily, Januvia 50 mg daily, potassium 10 mEq p.o. daily, furosemide 40 mg IV daily, Protonix 40 p.o. daily, Rocephin 1 g IV daily, Xopenex nebulizer therapy, Zaroxolyn 2.5 mg p.o. daily, Amaryl 4 mg b.i.d., metformin 1000 mg b.i.d. Will continue present therapy, and will continue diuresis and will follow with you. Brianna Deng MD cc: [phone] TT: 06/12/2016 20:40:44 Confirmation # [id number] Dictation # [id number] jn
[2016-06-13] MEDS: Insulin Reg-MEDIUM-Coverage SC SCH ×4 (08:23→21:20)
[2016-06-13] MEDS: Tiotropium 18 mcg Cap For Inhalation IH SCH (10:02)
[2016-06-13] MEDS: Potassium Chloride 10 mEq ER Tab PO SCH (10:03)
[2016-06-13] MEDS: metOLazone 2.5 MG TAB PO SCH (10:04)
[2016-06-13] MEDS: cefTRIAXone 1 gm 100 ML IVPB SCH (10:05)
[2016-06-13] MEDS: Nystatin-Triamcinolone Cream(30 gm) TOP SCH ×2 (12:22→17:06)
--- NOTE | 2016-06-13 12:33 | PN ---
DATE: 06/13/2016 The patient is 70 years old, seen and examined, lying in bed, complained of pain in the left foot, un able to stand up and walk because of the pain and shortness of breath, complaining of having craving for smoking. No nausea, vomiting or diarrhea. PHYSICAL EXAMINATION: VITAL SIGNS: She is afebrile, pulse 84, respirations 20, blood pressure 145/74. LUNGS: Bilateral good airflow, few expiratory rhonchi. HEART: S1, S2 audible. Irregular rate control. ABDOMEN: Soft, obese, nontender, no rebound, no guarding. NEUROLOGIC: She is awake and alert. She has bilateral cellulitis that is improving. LABORATORY EXAMINATION: Her blood sugar is 205. Her urine is positive for E. coli. X-ray of the fo ot shows no acute finding related for the clinical presentation. ASSESSMENT: 1. Left heel pain, probably calcaneal spur. 2. Chronic obstructive pulmonary disease, seems to be stable. 3. Bilateral leg cellulitis. 4. Escherichia coli urinary tract infection. 5. Hypertension. 6. Coronary artery disease. PLAN: We will continue her on current dose of Coumadin. Follow up CBC, CMP, PT, INR in a.m. [facility] podiatry input. She has had a fall because of limping and not having stable gait. Once her foot issue is resolved and her PT/INR is therapeutic, we will make discharge plan. Edwige Kirby MD cc: [facility] TT: 06/13/2016 12:32:36 Confirmation # [id number] Dictation # [id number]
--- NOTE | 2016-06-13 13:10 | CP.PCM.CON ---
<Laisha De Leon - Last Filed: 06/13/16 13:06> History of Present Illness - History of Present Illness History of Present Illness: 70 year old female with a past medical history that includes COPD and CHF seen at bedside at the request of podiatry consultation. Patient states that she has been having a lot of pain in her left heel for the past 2 weeks. patient states that she usually uses a walker to ambulate but she has been having too much pain now. Patient denies any other pedal complaints. Patient denies numbness, burning, tingling in her feet. Patient denies n/f/c/v/d/sob. Review of Systems - Constitutional Constitutional: As Per HPI Past Patient History - Infectious Disease Hx of Infectious Diseases: None - Tetanus Immunizations Tetanus Immunization: Unknown - Past Social History Smoking Status: Current Some Days Smoker - CARDIAC Hx Cardiac Disorders: Yes Hx Congestive Heart Failure: Yes Hx Hypertension: Yes - PULMONARY Hx Chronic Obstructive Pulmonary Disease (COPD): Yes (Home O2 2L) - NEUROLOGICAL Hx Neurological Disorder: Yes - HEENT Hx HEENT Problems: No - RENAL Hx Renal Failure: Yes - ENDOCRINE/METABOLIC Hx Diabetes Mellitus Type 2: Yes Hx Hypothyroidism: Yes - HEMATOLOGICAL/ONCOLOGICAL Hx Blood Transfusions: No Hx Blood Transfusion Reaction: No - INTEGUMENTARY Hx Dermatological Problems: Yes Other/Comment: +3 pitting edema ble redness dry skin, toenail was removed to b/ l great toes " yrs ago". small red area to nose - MUSCULOSKELETAL/RHEUMATOLOGICAL Hx Falls: No - GASTROINTESTINAL Hx Gastrointestinal Disorders: Yes (obesity) Hx Gastroesophageal Reflux: Yes (GI bleed) - GENITOURINARY/GYNECOLOGICAL Hx Genitourinary Disorders: Yes Hx Incontinence: Yes - PSYCHIATRIC Hx Substance Use: Yes - SURGICAL HISTORY Hx Cardiac Catheterization: Yes Hx Hysterectomy: Yes Hx Joint Replacement: Yes (bilateral knee replacement) Other/Comment: L breast lumpectomy, h/o breast CA, rcw pac - ANESTHESIA Hx Anesthesia Reactions: No Hx Malignant Hyperthermia: No Meds Allergies/Adverse Reactions: Allergies Allergy/AdvReac Type Severity Reaction Status Date / Time No Known Allergies Allergy Verified 06/08/16 20:30 - Medications Medications: Current Medications Acetaminophen (Tylenol 325mg Tab) 650 mg PO Q6H PRN PRN Reason: Fever >100.4 F Albuterol/Ipratropium (Duoneb 3 Mg/0.5 Mg (3 Ml) Ud) 3 ml IH Q2H PRN PRN Reason: Shortness of Breath Aspirin (Ecotrin) 81 mg PO DAILY [facility] Last Admin: 06/13/16 10:01 Dose: 81 mg Furosemide (Lasix) 40 mg IVP DAILY [facility] Last Admin: 06/13/16 10:04 Dose: 40 mg Glimepiride (Amaryl) 4 mg PO BID [facility] Last Admin: 06/13/16 10:03 Dose: 4 mg Hydralazine HCl (Apresoline) 50 mg PO BID [facility] Last Admin: 06/13/16 10:03 Dose: 50 mg Ceftriaxone Sodium (Rocephin 1 Gram Ivpb) 100 mls @ 100 mls/hr IVPB DAILY [facility] PRN Reason: Protocol Last Admin: 06/13/16 10:05 Dose: 100 mls/hr Insulin Human Regular (Humulin R Med) 0 units SC ACHS [facility] PRN Reason: Protocol Last Admin: 06/13/16 12:16 Dose: 3 units Isosorbide Mononitrate (Imdur) 60 mg PO DAILY [facility] Last Admin: 06/13/16 10:03 Dose: 60 mg Levalbuterol HCl (Xopenex) 1.25 mg IH [id number] PRN PRN Reason: Shortness of Breath Metformin HCl (Glucophage) 1,000 mg PO BID [facility] Last Admin: 06/13/16 10:04 Dose: 1,000 mg Metolazone (Zaroxolyn) 2.5 mg PO DAILY [facility] Last Admin: 06/13/16 10:04 Dose: 2.5 mg Nadolol (Corgard) 10 mg PO BID [facility] Last Admin: 06/13/16 10:02 Dose: 10 mg Nicotine (Nicoderm Cq) 1 patch TD DAILY [facility] Last Admin: 06/13/16 12:15 Dose: 1 patch Nystatin/Triamcinolone Acetonide (Nystatin/Triamcinolone Cream) 0 ea TOP BID [facility] Last Admin: 06/13/16 12:22 Dose: Not Given Oxycodone/Acetaminophen (Percocet 5/325 Mg Tab) 1 tab PO Q4H PRN PRN Reason: Pain, moderate (4-7) Stop: 06/15/16 12:19 Last Admin: 06/12/16 16:56 Dose: 1 tab Pantoprazole Sodium (Protonix Ec Tab) 40 mg PO 0630 [facility] Last Admin: 06/12/16 05:36 Dose: 40 mg Potassium Chloride (Klor-Con 10) 10 meq PO DAILY [facility] Last Admin: 06/13/16 10:03 Dose: 10 meq Sitagliptin Phosphate (Januvia) 50 mg PO DAILY [facility] Last Admin: 06/13/16 10:04 Dose: 50 mg Tiotropium [place] (Spiriva) 18 mcg IH DAILY [facility] Last Admin: 06/13/16 10:02 Dose: 18 mcg Valsartan (Diovan) 320 mg PO DAILY [facility] Last Admin: 06/13/16 10:01 Dose: 320 mg Warfarin Sodium (Coumadin) 10 mg PO 1800 [facility] PRN Reason: Protocol Last Admin: 06/12/16 17:01 Dose: 10 mg Warfarin Sodium (Coumadin) 6 mg PO 1800 [facility] PRN Reason: Protocol Zolpidem Tartrate (Ambien) 5 mg PO HS [facility] PRN Reason: Protocol Last Admin: 06/12/16 22:33 Dose: 5 mg Physical Exam - Constitutional Appears: Well, Non-toxic, No Acute Distress - Extremities Exam Additional comments: Vasc: nonpalpable pedal pulses bilaterally, TG wnl, CFT < 3 sec to all digits, + 1 pitting edema b/l neuro: grossly diminished derm: +1 pitting edema, diffuse brawny discoloration and hyperpigmentation to dorsal feet and legs b/l with purplish color, no open lesions, no acute clinical signs of infection, no hyperkeratotitc lesions, mild xerosis noted to plantar feet b/l ortho: pain on palpation of plantar medial tubercle of left foot - Neurological Exam Neurological exam: Alert, Oriented x3 - Psychiatric Exam Psychiatric exam: Normal Affect, Normal Mood Results - Vital Signs Recent Vital Signs: Last Vital Signs Temp 98.3 F 06/13/16 06:00 Pulse 84 06/13/16 10:03 Resp 20 06/13/16 06:00 BP 145/74 06/13/16 10:04 Pulse Ox 96 06/13/16 06:00 - Labs Result Diagrams: 06/12/16 08:00 06/12/16 08:00 Labs: Laboratory Results - last 24 hr 03/23/17 03/23/17 03/24/17 16:15 21:24 07:37 POC Glucose (mg/dL) 191 H 92 147 H 06/13/16 11:52 POC Glucose (mg/dL) 205 H Assessment & Plan - Assessment and Plan (Free Text) Assessment: 70 y/o female with a past medical history that includes COPD and CHF, seen at bedside for left heel pain Plan: patient evaluated and chart reviewed discussed in detail with attending Dr. Henriquez labs and vitals reviewed Rx Ibuprofen 600mg BID Rx multipodus boots while bedbound ordered RAMON/PVR to assess vascular flow since pulses nonpalpable x rays show plantar heel spur, no evidence of fracture or dislocation, mild soft tissue swelling podiatry will continue to follow while patient remains in house <Deric Henriquez - Last Filed: 06/14/16 07:26> Meds - Medications Medications: Current Medications Acetaminophen (Tylenol 325mg Tab) 650 mg PO Q6H PRN PRN Reason: Fever >100.4 F Albuterol/Ipratropium (Duoneb 3 Mg/0.5 Mg (3 Ml) Ud) 3 ml IH Q2H PRN PRN Reason: Shortness of Breath Aspirin (Ecotrin) 81 mg PO DAILY [facility] Last Admin: 06/13/16 10:01 Dose: 81 mg Furosemide (Lasix) 40 mg IVP DAILY [facility] Last Admin: 06/13/16 10:04 Dose: 40 mg Glimepiride (Amaryl) 4 mg PO BID [facility] Last Admin: 06/13/16 17:06 Dose: 4 mg Hydralazine HCl (Apresoline) 50 mg PO BID [facility] Last Admin: 06/13/16 17:08 Dose: Not Given Ceftriaxone Sodium (Rocephin 1 Gram Ivpb) 100 mls @ 100 mls/hr IVPB DAILY [facility] PRN Reason: Protocol Last Admin: 06/13/16 10:05 Dose: 100 mls/hr Ibuprofen (Motrin Tab) 600 mg PO BID PRN PRN Reason: Pain, moderate (4-7) Insulin Human Regular (Humulin R Med) 0 units SC ACHS [facility] PRN Reason: Protocol Last Admin: 06/13/16 21:20 Dose: Not Given Isosorbide Mononitrate (Imdur) 60 mg PO DAILY [facility] Last Admin: 06/13/16 10:03 Dose: 60 mg Levalbuterol HCl (Xopenex) 1.25 mg IH [id number] PRN PRN Reason: Shortness of Breath Metformin HCl (Glucophage) 1,000 mg PO BID [facility] Last Admin: 06/13/16 17:06 Dose: 1,000 mg Metolazone (Zaroxolyn) 2.5 mg PO DAILY [facility] Last Admin: 06/13/16 10:04 Dose: 2.5 mg Nadolol (Corgard) 10 mg PO BID [facility] Last Admin: 06/13/16 17:08 Dose: Not Given Nicotine (Nicoderm Cq) 1 patch TD DAILY [facility] Last Admin: 06/13/16 12:15 Dose: 1 patch Nystatin/Triamcinolone Acetonide (Nystatin/Triamcinolone Cream) 0 ea TOP BID [facility] Last Admin: 06/13/16 17:06 Dose: 1 applic Oxycodone/Acetaminophen (Percocet 5/325 Mg Tab) 1 tab PO Q4H PRN PRN Reason: Pain, moderate (4-7) Stop: 06/15/16 12:19 Last Admin: 06/13/16 19:44 Dose: 1 tab Pantoprazole Sodium (Protonix Ec Tab) 40 mg PO 0630 [facility] Last Admin: 06/12/16 05:36 Dose: 40 mg Potassium Chloride (Klor-Con 10) 10 meq PO DAILY [facility] Last Admin: 06/13/16 10:03 Dose: 10 meq Sitagliptin Phosphate (Januvia) 50 mg PO DAILY [facility] Last Admin: 06/13/16 10:04 Dose: 50 mg Tiotropium [place] (Spiriva) 18 mcg IH DAILY [facility] Last Admin: 06/13/16 10:02 Dose: 18 mcg Valsartan (Diovan) 320 mg PO DAILY [facility] Last Admin: 06/13/16 10:01 Dose: 320 mg Warfarin Sodium (Coumadin) 10 mg PO 1800 [facility] PRN Reason: Protocol Last Admin: 06/13/16 17:06 Dose: 10 mg Warfarin Sodium (Coumadin) 6 mg PO 1800 [facility] PRN Reason: Protocol Results - Vital Signs Recent Vital Signs: Last Vital Signs Temp 98.2 F 06/13/16 16:00 Pulse 71 06/13/16 16:00 Resp 20 06/13/16 16:00 BP 103/41 L 06/13/16 17:08 Pulse Ox 99 06/13/16 16:00 - Labs Result Diagrams: 06/12/16 08:00 06/12/16 08:00 Labs: Laboratory Results - last 24 hr 06/13/16 06/13/16 06/13/16 07:37 11:52 16:18 POC Glucose (mg/dL) 147 H 205 H 103 06/13/16 06/14/16 20:47 03:00 POC Glucose (mg/dL) 86 92 Attending/Attestation - Attestation I have personally seen and examined this patient.: Yes I have fully participated in the care of the patient.: Yes I have reviewed all pertinent clinical information: Yes
[2016-06-13] MEDS: Oxycodone/Acetaminophen 5/325 mg Tab PO PRN ×2 (14:45→19:44)
--- NOTE | 2016-06-13 14:47 | PN ---
DATE: 06/13/2016 Room 372, bed 1. REASON FOR CONSULTATION AND FOLLOWUP: Chronic atrial fibrillation, shortness of breath, severe anemi a and decompensated congestive heart failure, status post packed cell transfusion. HISTORY OF PRESENT ILLNESS: A 70-year-old female, morbidly obese, with past medical history signific ant for tobacco abuse, the patient still continues to smoke, pulmonary hypertension, diabetes, hypert ension, hyperlipidemia, chronic atrial fibrillation, chronic obstructive pulmonary disease was admitt ed with swelling of legs and shortness of breath and found to have hemoglobin was 7.5. The patient r eceived blood transfusions. The patient denies any chest pain. Her breathing is better and denies a ny palpitation. PHYSICAL EXAMINATION: VITAL SIGNS: Blood pressure 145/74, respirations 20, pulse 84, temperature 98.3. HEAD: Normocephalic. EYES: Pupils normal. Conjunctivae slightly pale. NECK: JVP low. Carotid equal. THORAX: AP diameter normal. LUNGS: Clear. CARDIOVASCULAR: S1, S2. ABDOMEN: Soft, nontender, no organomegaly. EXTREMITIES: No clubbing, no cyanosis. LABORATORY DATA: WBC 7.4, hemoglobin 10.1, hematocrit 32.6, platelet 232. Sodium 139, potassium 4.1 , BUN 32, creatinine 0.9. Random glucose 112. Calcium, phosphorus, magnesium normal. AST, ALT norm al. Total protein and albumin normal. DIAGNOSES: Chronic atrial fibrillation, diabetes, hypertension, hyperlipidemia, morbid obesity, carina nary artery disease, 1 vessel right coronary artery, which is occluded, but getting very well collate ralized from the left anterior descending artery, moderate aortic stenosis, chronic obstructive pulmo nary disease, pulmonary hypertension, severe anemia, status post blood transfusions. PLAN: The patient on Corgard 10 mg b.i.d., warfarin 10 mg given today as per Dr. Kirby and kunal perez tomorrow the patient will be on Coumadin 6 mg p.o. daily, Diovan 320 mg p.o. daily, DuoNeb hand neb ulizer therapy, aspirin 81 mg p.o. daily, isosorbide mono 60 p.o. daily, Januvia 50 mg p.o. daily, po tassium 10 mEq p.o. daily, furosemide 40 mg IV daily, Protonix 40 mg p.o. daily, Rocephin 1 gram IV d aida, Xopenex hand nebulizer therapy, Amaryl 4 mg b.i.d., metformin 1000 mg b.i.d. The patient will have a PT/INR checked tomorrow morning. We will follow with you. Brianna Deng MD cc: [phone] TT: 06/13/2016 14:46:37 Confirmation # [id number] Dictation # [id number] jn
--- NOTE | 2016-06-14 02:56 | CP.PCM.PN ---
Subjective - Date & Time of Evaluation Date of Evaluation: 06/14/16 Time of Evaluation: 02:55 - Subjective Subjective: Patient has been confused. It was requested to hold Ambien. Patient was seen at bedside. Has no complaints to offer. States that this is May,she is in the hospital. Complains that "They have locked me up here." FSBS-92 mg% , Pulse ox 97% on 2L/Min. Medical record was reviewed. This 70 year old white woman was admitted with increasing cough, congestion , bilateral leg swelling. Has PMH of Hypertension, S/P cardiac cath, occlusion RCA , pulmonary HTN, cardiac cirrhosis, anemia, NIDDM, atrial fibrillation, obesity, right carotid endarterectomy. Objective - Vital Signs/Intake and Output Vital Signs (last 24 hours): Temp Pulse Resp BP Pulse Ox 98.2 F 71 20 103/41 L 99 06/13/16 16:00 06/13/16 16:00 06/13/16 16:00 06/13/16 17:08 06/13/16 16:00 Intake and Output: 06/13/16 06/14/16 18:59 06:59 Intake Total 840 Output Total 600 Balance 240 - Medications Medications: Current Medications Acetaminophen (Tylenol 325mg Tab) 650 mg PO Q6H PRN PRN Reason: Fever >100.4 F Albuterol/Ipratropium (Duoneb 3 Mg/0.5 Mg (3 Ml) Ud) 3 ml IH Q2H PRN PRN Reason: Shortness of Breath Aspirin (Ecotrin) 81 mg PO DAILY [facility] Last Admin: 06/13/16 10:01 Dose: 81 mg Furosemide (Lasix) 40 mg IVP DAILY [facility] Last Admin: 06/13/16 10:04 Dose: 40 mg Glimepiride (Amaryl) 4 mg PO BID [facility] Last Admin: 06/13/16 17:06 Dose: 4 mg Hydralazine HCl (Apresoline) 50 mg PO BID [facility] Last Admin: 06/13/16 17:08 Dose: Not Given Ceftriaxone Sodium (Rocephin 1 Gram Ivpb) 100 mls @ 100 mls/hr IVPB DAILY [facility] PRN Reason: Protocol Last Admin: 06/13/16 10:05 Dose: 100 mls/hr Ibuprofen (Motrin Tab) 600 mg PO BID PRN PRN Reason: Pain, moderate (4-7) Insulin Human Regular (Humulin R Med) 0 units SC ACHS [facility] PRN Reason: Protocol Last Admin: 06/13/16 21:20 Dose: Not Given Isosorbide Mononitrate (Imdur) 60 mg PO DAILY [facility] Last Admin: 06/13/16 10:03 Dose: 60 mg Levalbuterol HCl (Xopenex) 1.25 mg IH [id number] PRN PRN Reason: Shortness of Breath Metformin HCl (Glucophage) 1,000 mg PO BID [facility] Last Admin: 06/13/16 17:06 Dose: 1,000 mg Metolazone (Zaroxolyn) 2.5 mg PO DAILY [facility] Last Admin: 06/13/16 10:04 Dose: 2.5 mg Nadolol (Corgard) 10 mg PO BID [facility] Last Admin: 06/13/16 17:08 Dose: Not Given Nicotine (Nicoderm Cq) 1 patch TD DAILY [facility] Last Admin: 06/13/16 12:15 Dose: 1 patch Nystatin/Triamcinolone Acetonide (Nystatin/Triamcinolone Cream) 0 ea TOP BID [facility] Last Admin: 06/13/16 17:06 Dose: 1 applic Oxycodone/Acetaminophen (Percocet 5/325 Mg Tab) 1 tab PO Q4H PRN PRN Reason: Pain, moderate (4-7) Stop: 06/15/16 12:19 Last Admin: 06/13/16 19:44 Dose: 1 tab Pantoprazole Sodium (Protonix Ec Tab) 40 mg PO 0630 [facility] Last Admin: 06/12/16 05:36 Dose: 40 mg Potassium Chloride (Klor-Con 10) 10 meq PO DAILY [facility] Last Admin: 06/13/16 10:03 Dose: 10 meq Sitagliptin Phosphate (Januvia) 50 mg PO DAILY [facility] Last Admin: 06/13/16 10:04 Dose: 50 mg Tiotropium [place] (Spiriva) 18 mcg IH DAILY [facility] Last Admin: 06/13/16 10:02 Dose: 18 mcg Valsartan (Diovan) 320 mg PO DAILY [facility] Last Admin: 06/13/16 10:01 Dose: 320 mg Warfarin Sodium (Coumadin) 10 mg PO 1800 [facility] PRN Reason: Protocol Last Admin: 06/13/16 17:06 Dose: 10 mg Warfarin Sodium (Coumadin) 6 mg PO 1800 [facility] PRN Reason: Protocol - Labs Labs: 06/12/16 08:00 06/12/16 08:00 PT 13.0 Seconds (9.9-11.8) H 06/12/16 08:00 INR 1.20 (0.93-1.08) H 06/12/16 08:00 - Constitutional Appears: No Acute Distress - Head Exam Head Exam: ATRAUMATIC, NORMAL INSPECTION, NORMOCEPHALIC - Eye Exam Eye Exam: Normal appearance - ENT Exam ENT Exam: Normal External Ear Exam - Neck Exam Neck Exam: Normal Inspection - Respiratory Exam Respiratory Exam: NORMAL BREATHING PATTERN - Cardiovascular Exam Cardiovascular Exam: absent: JVD - GI/Abdominal Exam GI & Abdominal Exam: absent: Distended - Rectal Exam Rectal Exam: Deferred - Extremities Exam Extremities Exam: Normal Inspection - Back Exam Back Exam: NORMAL INSPECTION - Neurological Exam Neurological Exam: Altered - Psychiatric Exam Psychiatric exam: Normal Affect - Skin Skin Exam: Normal Color Assessment and Plan - Assessment and Plan (Free Text) Assessment: A/P Confusion 2* to Ambien? HTN. Pulmonary HTN. CAD NIDDM. Hold Ambien.
[2016-06-14] MEDS: Pantoprazole 40 mg EC Tab PO SCH (06:30)
[2016-06-14] MEDS: Insulin Reg-MEDIUM-Coverage SC SCH ×4 (08:00→22:39)
[2016-06-14 08:05] LABS: ADD MANUAL DIFF? NO
[2016-06-14 08:22] LABS: BASO # 0.01 K/mm3 (0.0-2.0); BASO % 0.2 % (0.0-3.0); EOS # 0.3 (0.0-0.7); EOS % 4.2 % (1.5-5.0); GRAN # 3.79 (1.4-6.5); LYMPH # 1.5 (1.2-3.4); LYMPH % 24.5 % (22.0-35.0); MEAN CELL VOLUME 88.4 fL (80.0-105.0); MEAN CORPUSCULAR HEMOGLOBIN 27.3 pg (25.0-35.0); MEAN CORPUSCULAR HGB CONC 30.9 g/dl (31.0-37.0); MEAN PLATELET VOLUME 9.8 fl (7.0-11.0); MONO # 0.6 (0.1-0.6); MONO % 10.1 % (1.0-6.0); PLATELET COUNT 236 10^3/uL (120.0-450.0); RED CELL DISTRIBUTION WIDTH 15.3 % (11.5-14.5); WHITE BLOOD COUNT 6.2 10^3/ul (4.5-11.0)
[2016-06-14 08:24] LABS: INR 1.53 (0.93-1.08)
[2016-06-14 08:35] LABS: ALB/GLOB RATIO 1.3 (1.1-1.8); ALKALINE PHOSPHATASE 63 U/L (38-133); ALT/SGPT 16 U/L (7-56); AST/SGOT 21 U/L (15-39); BILIRUBIN,TOTAL 0.4 mg/dL (0.2-1.3); BLOOD UREA NITROGEN 49 mg/dL (7-21); CALCIUM 9.4 mg/dL (8.4-10.5); CARBON DIOXIDE 36 mmol/L (21-33); CHLORIDE 97 mmol/L (95-110); GFR AFRICAN-AMERICAN > 60; GLUCOSE,RANDOM 109 mg/dL (70-110); POTASSIUM 4.4 mmol/L (3.6-5.0); SODIUM 140 mmol/L (132-148); TOTAL PROTEIN 6.6 g/dL (5.8-8.3)
[2016-06-14] MEDS: Potassium Chloride 10 mEq ER Tab PO SCH (10:30)
[2016-06-14] MEDS: metOLazone 2.5 MG TAB PO SCH (10:31)
[2016-06-14] MEDS: cefTRIAXone 1 gm 100 ML IVPB SCH (10:38)
[2016-06-14] MEDS: Nystatin-Triamcinolone Cream(30 gm) TOP SCH ×2 (10:38→18:00)
[2016-06-14] MEDS: Tiotropium 18 mcg Cap For Inhalation IH SCH (10:39)
[2016-06-14] MEDS: Oxycodone/Acetaminophen 5/325 mg Tab PO PRN (11:38)
--- NOTE | 2016-06-14 12:19 | PN ---
DATE: 06/14/2016 SUBJECTIVE: The patient is a 70-year-old, seen and examined. She states she is doing well, but her left foot is hurting. She is unable to walk. She lives by herself. She is high risk to fall. She has fallen multiple times, awaiting podiatry input. PHYSICAL EXAMINATION: GENERAL: Otherwise, she is awake, alert, oriented, not much shortness of breath. VITAL SIGNS: She is afebrile, pulse 79, respirations 20, blood pressure 127/48. LUNGS: Bilateral good airflow, no rhonchi or crackle. HEART: S1, S2 audible, irregular rate control. ABDOMEN: Soft, obese, nontender, no rebound, no guarding. NEUROLOGIC: She is awake and alert, communicative. EXTREMITIES: Bilateral leg +1 edema and mild erythema. LABORATORY EXAMINATION: WBC 6.2, hemoglobin 9.9, hematocrit 32, platelet of 236. PT 16.5, INR is 1. 53. Chemistry: Sodium 140, potassium 4.4, chloride 97, CO2 36, BUN 49, creatinine 0.9, blood sugar of 181. ASSESSMENT: 1. Status post chronic obstructive pulmonary disease exacerbation. 2. Congestive heart failure exacerbation. 3. Symptomatic anemia, status post blood transfusion. 4. Left foot calcaneal spur 5. Chronic atrial fibrillation. 6. Non-insulin dependent diabetes. 7. Morbid obesity. 8. Coronary artery disease, complete occlusion of right coronary artery. PLAN: The patient is still subtherapeutic for her Coumadin. Currently, she is getting oral hypoglyc emic. She is on aspirin 81 daily. She will receive Coumadin 10 mg today. We will reevaluate ronen rivera in a.m. I will order for PT/INR for a.m. Awaiting Dr. Henriquez. Once her foot problem is taken car e of, we will make discharge plan. Edwige Kirby MD cc: [phone] TT: 06/14/2016 12:18:54 Confirmation # [id number] Dictation # [id number] tn
--- NOTE | 2016-06-14 13:44 | PN ---
DATE: 06/14/2016 A 70-year-old female seen at bedside stating that she has been having a great deal of pain in both of her heels for the last few days. She does state that she fell, but does not believe that it is rela leticia to her heel pain. X-rays taken reveal plantar and Achilles tendon insertion calcaneal spurs. VITAL SIGNS: Reveal a temperature of 97.8, pulse rate of 79, blood pressure of 127/48, respiratory r ate of 20. LABORATORY FINDINGS: Reveal a white count of 6.2, hemoglobin of 9.9, hematocrit of 32.0, platelet co unt of 236. OBJECTIVE: Nonpalpable posterior tibial pulse and palpable dorsalis pedis pulse noted bilaterally. The patient is able to detect 5.07 gram monofilament wire testing bilaterally, +1 pitting edema noted bilaterally. Capillary filling time is delayed. Both heels present with full thickness skin fissur ing which are extremely painful upon palpation. There appears to be no drainage and no acute bacteri al infection. ASSESSMENT: Full thickness heel fissures on both heels as well as calcaneal spurs. PLAN: Excisional debridement was performed on heel fissures and we will apply Xeroform and a dry swati rile dressing daily. Lac-Hydrin will be ordered to hydrate both heels and the patient will be seen a nd followed as needed. Deric Henriquez DPM cc: [phone] TT: 06/14/2016 13:43:30 Confirmation # [id number] Dictation # [id number] tn
--- NOTE | 2016-06-14 16:52 | US ---
PROCEDURE: Lower extremity RAMON exam HISTORY: Peripheral vascular disease with pain and claudication. PHYSICIAN(S): Maldonado Barnett MD. FINDINGS: The resting RAMON's are moderately abnormal: Right 0.62 and left 0.51. The RAMON are likely inaccurate due to Ca++ The low thigh pressures and waveforms are relatively normal. The right calf PVR waveform is relatively normal. The left calf PVR waveform is mildly blunted c/w left SFA disease. The right ankle PVR waveform is mildly abnormal. The left ankle PVR waveform is essentially flat IMPRESSION: 1. Bilateral tibial disease, greater on the left than right 2. Left SFA occlusive disease.
[2016-06-14] MEDS: Ammonium Lactate 12% Lotion (225 g) EXT SCH (19:52)
[2016-06-15 05:47] LABS: INR 1.81 (0.93-1.08)
[2016-06-15] MEDS: Insulin Reg-MEDIUM-Coverage SC SCH ×4 (07:39→21:34)
[2016-06-15] MEDS: cefTRIAXone 1 gm 100 ML IVPB SCH (09:17)
[2016-06-15] MEDS: Nystatin-Triamcinolone Cream(30 gm) TOP SCH ×2 (09:17→17:19)
[2016-06-15] MEDS: Potassium Chloride 10 mEq ER Tab PO SCH (09:18)
[2016-06-15] MEDS: metOLazone 2.5 MG TAB PO SCH (09:19)
[2016-06-15] MEDS: Tiotropium 18 mcg Cap For Inhalation IH SCH (09:19)
[2016-06-15] MEDS: Ammonium Lactate 12% Lotion (225 g) EXT SCH (09:20)
[2016-06-15] MEDS: Oxycodone/Acetaminophen 5/325 mg Tab PO PRN (13:58)
--- NOTE | 2016-06-15 15:06 | PN ---
DATE: 06/15/2016 The patient is a 70-year-old, seen and examined, doing well, complaining of left foot pain. She stat es she feels somewhat better since she was treated by ventilating engineer. Still not very stable to walk. No chest pain, no shortness of breath. PHYSICAL EXAMINATION: VITAL SIGNS: She is afebrile, pulse 94, respirations 18, blood pressure 120/55. LUNGS: Bilateral good airflow, no rhonchi or crackle. HEART: S1, S2 audible. No murmur. ABDOMEN: Soft, obese, nontender, no rebound, no guarding. NEUROLOGIC: She is awake and alert, communicative. Ambulates with a walker. EXTREMITIES: Still has pain in the left foot. Her PT is 19.5, INR 1.85. ASSESSMENT: 1. Symptomatic anemia. 2. Chronic atrial fibrillation. 3. Coronary artery disease. 4. Hypertension. 5. Hyperlipidemia. PLAN: We will continue patient on current medication. I will talk to ventilating engineer if something else c an be done to improve her foot pain, so she can be discharged home in a stable condition since she is high risk to fall since she lives alone. Follow up PT/INR in a.m. Edwige Kirby MD cc: [phone] TT: 06/15/2016 15:05:55 Confirmation # [id number] Dictation # [id number] en
[2016-06-15] MEDS ORDERED: Oxycodone/Acetaminophen 5/325 mg Tab PO PRN ×2 (15:28→15:29)
[2016-06-16 05:32] LABS: ADD MANUAL DIFF? NO
[2016-06-16 05:39] LABS: BASO # 0.01 K/mm3 (0.0-2.0); BASO % 0.2 % (0.0-3.0); EOS # 0.2 (0.0-0.7); EOS % 3.1 % (1.5-5.0); GRAN % 72.7 % (50.0-68.0); HEMATOCRIT 30.9 % (36.0-48.0); LYMPH # 0.5 (1.2-3.4); LYMPH % 9.4 % (22.0-35.0); MEAN CELL VOLUME 87.5 fL (80.0-105.0); MEAN CORPUSCULAR HEMOGLOBIN 27.5 pg (25.0-35.0); MEAN CORPUSCULAR HGB CONC 31.4 g/dl (31.0-37.0); MEAN PLATELET VOLUME 9.6 fl (7.0-11.0); MONO # 0.8 (0.1-0.6); MONO % 14.6 % (1.0-6.0); PLATELET COUNT 212 10^3/uL (120.0-450.0); RED CELL DISTRIBUTION WIDTH 15.4 % (11.5-14.5); WHITE BLOOD COUNT 5.8 10^3/ul (4.5-11.0)
[2016-06-16 05:46] LABS: INR 2.57 (0.93-1.08)
[2016-06-16] MEDS: Pantoprazole 40 mg EC Tab PO SCH (08:23)
[2016-06-16] MEDS: Insulin Reg-MEDIUM-Coverage SC SCH ×4 (08:24→21:15)
[2016-06-16] MEDS: Nystatin-Triamcinolone Cream(30 gm) TOP SCH ×2 (09:23→17:30)
[2016-06-16] MEDS: cefTRIAXone 1 gm 100 ML IVPB SCH (09:23)
[2016-06-16] MEDS: Tiotropium 18 mcg Cap For Inhalation IH SCH (09:25)
[2016-06-16] MEDS: Potassium Chloride 10 mEq ER Tab PO SCH (09:26)
[2016-06-16] MEDS: metOLazone 2.5 MG TAB PO SCH (09:27)
[2016-06-16] MEDS: Ammonium Lactate 12% Lotion (225 g) EXT SCH ×2 (09:28→17:29)
[2016-06-16 12:16] LABS: ADD MANUAL DIFF? NO
[2016-06-16 12:23] LABS: BASO # 0.01 K/mm3 (0.0-2.0); BASO % 0.2 % (0.0-3.0); EOS # 0.1 (0.0-0.7); EOS % 2.4 % (1.5-5.0); GRAN # 4.12 (1.4-6.5); GRAN % 71.7 % (50.0-68.0); HEMATOCRIT 31.7 % (36.0-48.0); LYMPH # 0.6 (1.2-3.4); LYMPH % 9.8 % (22.0-35.0); MEAN CELL VOLUME 86.8 fL (80.0-105.0); MEAN CORPUSCULAR HEMOGLOBIN 27.7 pg (25.0-35.0); MEAN CORPUSCULAR HGB CONC 31.9 g/dl (31.0-37.0); MEAN PLATELET VOLUME 9.7 fl (7.0-11.0); MONO # 0.9 (0.1-0.6); MONO % 15.9 % (1.0-6.0); PLATELET COUNT 213 10^3/uL (120.0-450.0); RED CELL DISTRIBUTION WIDTH 15.3 % (11.5-14.5); WHITE BLOOD COUNT 5.7 10^3/ul (4.5-11.0)
[2016-06-16 12:28] LABS: ALB/GLOB RATIO 1.3 (1.1-1.8); ALKALINE PHOSPHATASE 65 U/L (38-133); ALT/SGPT 11 U/L (7-56); AST/SGOT 24 U/L (15-39); BILIRUBIN,TOTAL 0.4 mg/dL (0.2-1.3); BLOOD UREA NITROGEN 45 mg/dL (7-21); CALCIUM 9.6 mg/dL (8.4-10.5); CARBON DIOXIDE 34 mmol/L (21-33); CHLORIDE 93 mmol/L (95-110); GFR AFRICAN-AMERICAN > 60; GLUCOSE,RANDOM 161 mg/dL (70-110); MAGNESIUM 1.8 mg/dL (1.7-2.2); POTASSIUM 4.1 mmol/L (3.6-5.0); SODIUM 136 mmol/L (132-148); TOTAL PROTEIN 6.9 g/dL (5.8-8.3)
--- NOTE | 2016-06-16 13:06 | PN ---
DATE: 06/16/2016 SUBJECTIVE: The patient is 70 years old, seen and examined. Had diarrhea all night, seems to be wea k, tired, somewhat confused. PHYSICAL EXAMINATION: VITAL SIGNS: She has temperature 99.0, pulse 81, respirations 19, blood pressure 153/61. LUNGS: Bilateral fair airflow, no rhonchi or crackle. HEART: S1, S2 audible. No murmur. ABDOMEN: Soft, nontender, no rebound, no guarding. NEUROLOGIC: The patient is awake and alert, communicative, somewhat confused and forgetful, able to answer simple questions. LABORATORY EXAMINATION: WBC is 5.7, hemoglobin 10, hematocrit 31.7, platelets of 213. PT 27.8, INR 2.57. Chemistry: Sodium 136, potassium 4.1, chloride 93, CO2 of 34, BUN 45, creatinine 0.9. Stool for C. diff is negative. ASSESSMENT AND PLAN: Diarrhea, probably secondary to antibiotic related. PLAN: We will continue patient on current medication. I will discontinue metolazone and stool for C . diff is negative and encourage p.o. intake and ambulation. Once patient's mental status improved, we will make discharge plan. Edwige Kirby MD cc: [phone] TT: 06/16/2016 13:06:08 Confirmation # [id number] Dictation # [id number]
--- NOTE | 2016-06-16 21:15 | PN ---
DATE: 06/16/2016 This is a 70-year-old female seen at bedside for bilateral fissures, which were debrided by Dr. Mirza mendoza to her heels on Thursday. The patient is seen at bedside. She is awake, but not very alert. She is in offloading boots. Her neurovascular status is unchanged. She has capillary refill time. She has mild edema to the feet and legs, and there are no wounds, there are no ulcers, and the fissures h ave resolved. ASSESSMENT: Resolved fissures status post debridement. PLAN OF TREATMENT: The patient will continue with the Lac-Hydrin, the offloading boots, and the bandar ge topped preventive cream should be placed on the heels daily. Nikia Hfofman DPM cc: [phone] TT: 06/16/2016 21:14:48 Confirmation # [id number] Dictation # [id number] mn
[2016-06-17] MEDS: Insulin Reg-MEDIUM-Coverage SC SCH ×4 (08:38→22:18)
[2016-06-17] MEDS: cefTRIAXone 1 gm 100 ML IVPB SCH (11:03)
[2016-06-17] MEDS: Tiotropium 18 mcg Cap For Inhalation IH SCH (11:03)
[2016-06-17] MEDS: Pantoprazole 40 mg EC Tab PO SCH (11:07)
[2016-06-17] MEDS: Potassium Chloride 10 mEq ER Tab PO SCH (11:08)
[2016-06-17] MEDS: Ammonium Lactate 12% Lotion (225 g) EXT SCH ×3 (11:09→17:58)
[2016-06-17] MEDS: Nystatin-Triamcinolone Cream(30 gm) TOP SCH ×2 (11:10→17:34)
--- NOTE | 2016-06-17 11:59 | PN ---
DATE: 06/17/2016 REASON FOR CONSULTATION AND FOLLOWUP: Chronic atrial fibrillation, shortness of breath, severe anemi a, decompensated congestive heart failure, status post packed RBC transfusion. BRIEF CLINICAL HISTORY: A 70-year-old morbidly obese female with past medical history significant fo r tobacco abuse, active, still smokes, pulmonary hypertension, diabetes, hypertension, hyperlipidemia , chronic atrial fibrillation, 1-vessel coronary artery disease, had been feeling weak and lethargic, hemoglobin 7, status post 2 packed RBC transfusion. Denies any chest pain, shortness of breath, any palpitation. PHYSICAL EXAMINATION: VITAL SIGNS: Temperature afebrile, heart rate 84, blood pressure 150/74. HEENT: PERRLA. Extraocular muscles intact. NECK: Supple. No carotid bruit or thyromegaly. CHEST: Clear to auscultation. HEART: S1, S2 regular. ABDOMEN: Soft. EXTREMITIES: Clubbing and cyanosis negative. LABORATORY DATA: Blood workup as follows: WBC 5.0, hemoglobin 10.9, hematocrit 31.7, platelet count 213. Chemistry shows sodium on 06/16 of 130, potassium 4.0, chloride 93, carbon dioxide 34, anion ga p of 13, BUN 45, creatinine 0.9. IMPRESSION: Chronic atrial fibrillation, diabetes, hypertension, hyperlipidemia, obesity, coronary a rtery disease, 1-vessel, right coronary artery occluded, very well collateralized from left anterior descending and circumflex, moderate aortic stenosis, chronic obstructive pulmonary disease, pulmonary hypertension, severe anemia, status post packed red blood cell transfusion. RECOMMENDATION: Continue Corgard. Continue Coumadin. Goal is to keep INR 2-2.5. Try not to over s hoot since today the patient has Coumadin, 2.57 INR. We will put down 4 mg of Coumadin today and try to keep PT on low side to prevent further anemia and GI bleed. We will follow with you. Thank you, Dr. Kirby, for providing us the opportunity in taking care of the patient. Medical ricky tment for CAD,, complete cessation of smoking and complete modification of lifestyle. Emphasis on we ight reduction and aggressive medical treatment recommended. No invasive cardiac workup at this poin t. Brianna Sandra MD cc: [phone] TT: 06/17/2016 11:58:49 Confirmation # [id number] Dictation # [id number] tn
--- NOTE | 2016-06-17 12:07 | CP.PCM.PN ---
<Laisha De Leon - Last Filed: 06/17/16 12:04> Subjective - Date & Time of Evaluation Date of Evaluation: 06/17/16 Time of Evaluation: 12:04 - Subjective Subjective: 70 y/o female seen at bedside for bilateral fissures which were debrided by Dr. Henriquez on thursday. Patient seen at bedside awake, not very alert or oriented. Patient appears in NAD. Patient's offloading boots appear intact to both feet. Objective - Vital Signs/Intake and Output Vital Signs (last 24 hours): Temp Pulse Resp BP Pulse Ox 99.9 F H 84 17 151/74 H 89 L 06/17/16 06:00 06/17/16 11:08 06/17/16 06:00 06/17/16 11:09 06/17/16 06:00 Intake and Output: 06/17/16 06/17/16 06:59 18:59 Intake Total 540 Balance 540 - Medications Medications: Current Medications Acetaminophen (Tylenol 325mg Tab) 650 mg PO Q6H PRN PRN Reason: Fever >100.4 F Albuterol/Ipratropium (Duoneb 3 Mg/0.5 Mg (3 Ml) Ud) 3 ml IH Q2H PRN PRN Reason: Shortness of Breath Aspirin (Ecotrin) 81 mg PO DAILY [facility] Last Admin: 06/17/16 11:08 Dose: 81 mg Furosemide (Lasix) 40 mg IVP DAILY [facility] Last Admin: 06/17/16 11:09 Dose: 40 mg Glimepiride (Amaryl) 4 mg PO BID [facility] Last Admin: 06/17/16 11:07 Dose: 4 mg Hydralazine HCl (Apresoline) 50 mg PO BID [facility] Last Admin: 06/17/16 11:06 Dose: 50 mg Ceftriaxone Sodium (Rocephin 1 Gram Ivpb) 100 mls @ 100 mls/hr IVPB DAILY [facility] PRN Reason: Protocol Last Admin: 06/17/16 11:03 Dose: 100 mls/hr Ibuprofen (Motrin Tab) 600 mg PO BID PRN PRN Reason: Pain, moderate (4-7) Insulin Human Regular (Humulin R Med) 0 units SC ACHS [facility] PRN Reason: Protocol Last Admin: 06/17/16 08:38 Dose: Not Given Isosorbide Mononitrate (Imdur) 60 mg PO DAILY [facility] Last Admin: 06/17/16 11:08 Dose: 60 mg Lactic Acid (Lac-Hydrin 12% Lotion (225 G)) 0 gm EXT BID [facility] Last Admin: 06/17/16 11:09 Dose: 1 applic Levalbuterol HCl (Xopenex) 1.25 mg IH [id number] PRN PRN Reason: Shortness of Breath Metformin HCl (Glucophage) 1,000 mg PO BID [facility] Last Admin: 06/17/16 11:07 Dose: 1,000 mg Nadolol (Corgard) 10 mg PO BID [facility] Last Admin: 06/17/16 11:08 Dose: 10 mg Nicotine (Nicoderm Cq) 1 patch TD DAILY [facility] Last Admin: 06/17/16 11:10 Dose: 1 patch Nystatin/Triamcinolone Acetonide (Nystatin/Triamcinolone Cream) 0 ea TOP BID [facility] Last Admin: 06/17/16 11:10 Dose: 1 applic Oxycodone/Acetaminophen (Percocet 5/325 Mg Tab) 1 tab PO Q4H PRN PRN Reason: Pain, moderate (4-7) Stop: 06/18/16 15:30 Pantoprazole Sodium (Protonix Ec Tab) 40 mg PO ACB [facility] Last Admin: 06/17/16 11:07 Dose: 40 mg Potassium Chloride (Klor-Con 10) 10 meq PO DAILY [facility] Last Admin: 06/17/16 11:08 Dose: 10 meq Sitagliptin Phosphate (Januvia) 50 mg PO DAILY [facility] Last Admin: 06/17/16 11:07 Dose: 50 mg Tiotropium [place] (Spiriva) 18 mcg IH DAILY [facility] Last Admin: 06/17/16 11:03 Dose: 18 mcg Valsartan (Diovan) 320 mg PO DAILY [facility] Last Admin: 06/17/16 11:07 Dose: 320 mg Warfarin Sodium (Coumadin) 4 mg PO 1800 WAYNE PRN Reason: Protocol - Labs Labs: 06/16/16 12:00 06/16/16 12:00 PT 27.8 Seconds (9.9-11.8) H 06/16/16 05:31 INR 2.57 (0.93-1.08) H 06/16/16 05:31 - Constitutional Appears: Well, Non-toxic, No Acute Distress - Extremities Exam Additional comments: Vasc: nonpalpable pedal pulses due to nonpittng edema, CFT < 3 sec to all digis , TG wnl neuro: grossly diminished derm: resolved fissures, no open wounds, no acute clinical signs of infection, no erythema, no hyperkeratotic lesions - Neurological Exam Neurological Exam: Alert Assessment and Plan - Assessment and Plan (Free Text) Assessment: 70 y/o female seen at bedside for resolved fissures s/p debridement Plan: patient evaluated and chart reviewed discussed in detail with attending Dr. Henriquez labs and vitals reviewed continue applying lac hydrin daily continue offloading boots while patient remains in bed podiatry will continue to monitor while patient remains in house <Deric Henriquez - Last Filed: 06/17/16 12:42> Objective - Vital Signs/Intake and Output Vital Signs (last 24 hours): Temp Pulse Resp BP Pulse Ox 101.7 F H 84 17 151/74 H 89 L 06/17/16 12:05 06/17/16 11:08 06/17/16 06:00 06/17/16 11:09 06/17/16 06:00 Intake and Output: 06/17/16 06/17/16 06:59 18:59 Intake Total 540 Balance 540 - Medications Medications: Current Medications Acetaminophen (Tylenol 325mg Tab) 650 mg PO Q6H PRN PRN Reason: Fever >100.4 F Last Admin: 06/17/16 12:05 Dose: 650 mg Albuterol/Ipratropium (Duoneb 3 Mg/0.5 Mg (3 Ml) Ud) 3 ml IH Q2H PRN PRN Reason: Shortness of Breath Aspirin (Ecotrin) 81 mg PO DAILY [facility] Last Admin: 06/17/16 11:08 Dose: 81 mg Furosemide (Lasix) 40 mg IVP DAILY [facility] Last Admin: 06/17/16 11:09 Dose: 40 mg Glimepiride (Amaryl) 4 mg PO BID [facility] Last Admin: 06/17/16 11:07 Dose: 4 mg Hydralazine HCl (Apresoline) 50 mg PO BID [facility] Last Admin: 06/17/16 11:06 Dose: 50 mg Ceftriaxone Sodium (Rocephin 1 Gram Ivpb) 100 mls @ 100 mls/hr IVPB DAILY [facility] PRN Reason: Protocol Last Admin: 06/17/16 11:03 Dose: 100 mls/hr Ibuprofen (Motrin Tab) 600 mg PO BID PRN PRN Reason: Pain, moderate (4-7) Insulin Human Regular (Humulin R Med) 0 units SC ACHS [facility] PRN Reason: Protocol Last Admin: 06/17/16 12:04 Dose: Not Given Isosorbide Mononitrate (Imdur) 60 mg PO DAILY [facility] Last Admin: 06/17/16 11:08 Dose: 60 mg Lactic Acid (Lac-Hydrin 12% Lotion (225 G)) 0 gm EXT BID [facility] Last Admin: 06/17/16 11:09 Dose: 1 applic Levalbuterol HCl (Xopenex) 1.25 mg IH [id number] PRN PRN Reason: Shortness of Breath Metformin HCl (Glucophage) 1,000 mg PO BID [facility] Last Admin: 06/17/16 11:07 Dose: 1,000 mg Nadolol (Corgard) 10 mg PO BID [facility] Last Admin: 06/17/16 11:08 Dose: 10 mg Nicotine (Nicoderm Cq) 1 patch TD DAILY [facility] Last Admin: 06/17/16 11:10 Dose: 1 patch Nystatin/Triamcinolone Acetonide (Nystatin/Triamcinolone Cream) 0 ea TOP BID [facility] Last Admin: 06/17/16 11:10 Dose: 1 applic Oxycodone/Acetaminophen (Percocet 5/325 Mg Tab) 1 tab PO Q4H PRN PRN Reason: Pain, moderate (4-7) Stop: 06/18/16 15:30 Pantoprazole Sodium (Protonix Ec Tab) 40 mg PO ACB [facility] Last Admin: 06/17/16 11:07 Dose: 40 mg Potassium Chloride (Klor-Con 10) 10 meq PO DAILY [facility] Last Admin: 06/17/16 11:08 Dose: 10 meq Sitagliptin Phosphate (Januvia) 50 mg PO DAILY [facility] Last Admin: 06/17/16 11:07 Dose: 50 mg Tiotropium [place] (Spiriva) 18 mcg IH DAILY [facility] Last Admin: 06/17/16 11:03 Dose: 18 mcg Valsartan (Diovan) 320 mg PO DAILY [facility] Last Admin: 06/17/16 11:07 Dose: 320 mg Warfarin Sodium (Coumadin) 4 mg PO 1800 WAYNE PRN Reason: Protocol - Labs Labs: 06/16/16 12:00 06/16/16 12:00 PT 27.8 Seconds (9.9-11.8) H 06/16/16 05:31 INR 2.57 (0.93-1.08) H 06/16/16 05:31 Attending/Attestation - Attestation I have personally seen and examined this patient.: Yes I have fully participated in the care of the patient.: Yes I have reviewed all pertinent clinical information, including history, physical exam and plan: Yes
--- NOTE | 2016-06-17 13:20 | CT ---
PROCEDURE: CT Chest without contrast HISTORY: fever, r/o infiltrates COMPARISON: 12/17/2015 TECHNIQUE: Contiguous axial images were obtained through the chest without intravenous contrast enhancement. Sagittal and coronal reconstructions were performed. Radiation dose (DLP): 821 mGy-cm. FINDINGS: LUNGS: Minimal patchy infiltrates are seen in the posterior left upper lobe. There is also an infiltrate in the posterior left upper lobe bordering the major fissure. The right lung is clear. The previous study showed right-sided infiltrates which have cleared. MEDIASTINUM: Coronary artery calcifications are seen. Mild cardiomegaly Main pulmonary artery unremarkable. No vascular congestion. No lymphadenopathy. PLEURA: No pleural fluid. No pneumothorax. BONES: No fracture. No destructive lesion. UPPER ABDOMEN: Grossly unremarkable. OTHER FINDINGS: None. IMPRESSION: Infiltrates in the left upper lobe
--- NOTE | 2016-06-17 14:17 | PN ---
DATE: 06/16/2016 The patient in room 372, bed 1. REASON FOR CONSULTATION AND FOLLOWUP: Chronic atrial fibrillation, shortness of breath, severe anemi a, decompensated congestive heart failure status post packed cell transfusions, diarrhea last night. HISTORY OF PRESENT ILLNESS: A 70-year-old female with morbid obesity, past medical history significa nt for tobacco abuse; the patient still continues to smoke, pulmonary hypertension, diabetes, hypert ension, hyperlipidemia, chronic atrial fibrillation, chronic obstructive pulmonary disease, decompens ated CHF, admitted with swelling of legs and shortness of breath, and found to have a hemoglobin of 7 .5. The patient received blood transfusion. The patient denies chest pain now. She says her breath ing is better. Denies palpitations. The patient had diarrhea during the night. The patient lying f lat in bed without any cardiac symptoms. The patient, on examination: VITAL SIGNS: Blood pressure 153/61, respirations 18, pulse 72, temperature 97. HEAD: Normocephalic. EYES: Pupils normal. Conjunctivae slightly pale. NECK: JVP low. Carotid equal. THORAX: AP diameter normal. LUNGS: No significant rales. CARDIOVASCULAR: S1, S2, systolic murmur, no rub. ABDOMEN: Soft, nontender, no organomegaly. EXTREMITIES: No clubbing, no cyanosis. LABORATORIES: WBC 5.7, hemoglobin 10.1, hematocrit 31.7, platelet 213. Sodium 136, BUN 45, creatini ne 0.9, , potassium 4.1, glucose 105, calcium 9.6, magnesium 1.8. AST, ALT normal. Total prote in 6.9, albumin 3.9. DIAGNOSES: Chronic atrial fibrillation, diabetes, hypertension, hyperlipidemia, morbid obesity, 1-ve ssel right coronary artery disease which is occluded but getting very well collaterals from the left anterior descending artery, moderate aortic stenosis, chronic obstructive pulmonary disease, pulmonar y hypertension, severe anemia status post blood transfusions, tobacco abuse, decompensated congestive heart failure. PLAN: Today the patient's prothrombin time 27.8, INR 2.57 which is therapeutic. Will continue Corga rd 10 mg b.i.d., warfarin 6 mg daily, Diovan 320 daily, aspirin 81 mg daily, isosorbide mono 60 mg da chris, Januvia 50 mg daily, potassium 10 mEq daily, Spiriva 18 daily, Amaryl 4 mg b.i.d., metform in 1000 mg b.i.d. The patient's C. diff antigen and toxin both are negative. Will continue present therapy. Will foll ow with you. Brianna Deng MD cc: [phone] TT: 06/17/2016 08:46:00 Confirmation # [id number] Dictation # [id number]
[2016-06-17] MEDS ORDERED: Levalbuterol 1.25 MG/3 ML Inhal Soln UD IH PRN (22:00)
[2016-06-17] MEDS: Vancomycin 1gm in NS 250ml 250 ML IVPB SCH (22:19)
--- NOTE | 2016-06-17 23:14 | PN ---
DATE: 06/17/2016 SUBJECTIVE: The patient is a 70-year-old, seen and examined. She was scheduled to be discharged; ho wever, she spiked fever of 101.7 rectally this morning, so her discharge was canceled. Panculture is being done. Urine culture is sent. The patient was already on Rocephin for her E. coli UTI. PHYSICAL EXAMINATION: GENERAL: She is awake and alert, somewhat lethargic, complained of cough and congestion. VITAL SIGNS: She had a T-max of 101.7 this morning, followup of 100.7, pulse 93, respirations 18, bl ood pressure 123/76. LUNGS: Bilateral fair airflow. Upper lung region, few expiratory rhonchi, more so on the right uppe r and left upper lung region. HEART: S1, S2 audible with murmur. ABDOMEN: Soft, obese, nontender, no rebound, no guarding. NEUROLOGIC: She is awake and alert, able to communicate. EXTREMITIES: Bilateral leg, no edema. LABORATORY EXAMINATION: WBC is 5.7, hemoglobin 10.1, hematocrit 31.7, platelets 213. PT 27.8, INR 2 .57. Chemistry: Blood sugar is 153. Urinalysis positive for nitrite. Her CT scan that was done [facility] this morning shows left upper lobe infiltrate. ASSESSMENT AND PLAN: 1. Probably aspiration pneumonia, left upper lobe. 2. Chronic obstructive pulmonary disease. 3. Status post acute on chronic congestive heart failure. 4. Coronary artery disease, status post cardiac catheterization and found to have RCA complete occlu ranjan. 5. Peptic ulcer disease. 6. Angiodysplasia in the stomach. 7. Congestive gastropathy. PLAN: We will add vancomycin 1 gram q. 12, continue on Rocephin and start nebulizer treatment. Foll ow up blood culture and ID consult by is requested. Edwige Kirby MD cc: [phone] TT: 06/17/2016 23:13:50 Confirmation # [id number] Dictation # [id number] mn
[2016-06-18] MEDS: Cefepime 1gm in NS 100ml 100 ML IVPB SCH ×3 (00:01→14:30)
[2016-06-18 07:03] LABS: INR 1.53 (0.93-1.08)
[2016-06-18 07:08] LABS: ALB/GLOB RATIO 1.2 (1.1-1.8); BILIRUBIN,TOTAL 0.4 mg/dL (0.2-1.3); CALCIUM 8.7 mg/dL (8.4-10.5); POTASSIUM 3.9 mmol/L (3.6-5.0); TOTAL PROTEIN 6.7 g/dL (5.8-8.3)
[2016-06-18 07:10] LABS: HEMATOCRIT 31.3 % (36.0-48.0); MEAN CELL VOLUME 87.2 fL (80.0-105.0); MEAN CORPUSCULAR HEMOGLOBIN 27.3 pg (25.0-35.0); MEAN CORPUSCULAR HGB CONC 31.3 g/dl (31.0-37.0); MEAN PLATELET VOLUME 10.1 fl (7.0-11.0); RED CELL DISTRIBUTION WIDTH 15.6 % (11.5-14.5); WHITE BLOOD COUNT 4.4 10^3/ul (4.5-11.0)
[2016-06-18] MEDS: Insulin Reg-MEDIUM-Coverage SC SCH ×3 (07:34→17:03)
[2016-06-18] MEDS: Tiotropium 18 mcg Cap For Inhalation IH SCH (09:50)
[2016-06-18] MEDS: Potassium Chloride 10 mEq ER Tab PO SCH (09:50)
[2016-06-18] MEDS: Pantoprazole 40 mg EC Tab PO SCH (09:53)
[2016-06-18] MEDS: Vancomycin 1gm in NS 250ml 250 ML IVPB SCH (09:56)
[2016-06-18] MEDS: Nystatin-Triamcinolone Cream(30 gm) TOP SCH ×2 (09:57→17:04)
[2016-06-18] MEDS: Ammonium Lactate 12% Lotion (225 g) EXT SCH ×2 (09:58→17:03)
--- NOTE | 2016-06-18 12:58 | PN ---
DATE: 06/18/2016 The patient is in room 372, bed 1. REASON FOR CONSULTATION AND FOLLOWUP: Chronic atrial fibrillation, shortness of breath, severe anemi a and decompensated congestive heart failure, status post blood transfusion. HISTORY OF PRESENT ILLNESS: A 70-year-old morbidly obese female with past medical history significan t for tobacco abuse, she is still smoking, pulmonary hypertension, diabetes, hypertension, hyperlipid emia, chronic atrial fibrillation, 1-vessel coronary artery disease, was admitted with feeling weak a nd lethargic, found to have hemoglobin of 7. The patient was given blood transfusions. The patient lying flat in bed without chest pain, shortness of breath, or palpitation. PHYSICAL EXAMINATION: VITAL SIGNS: Blood pressure 126/50, respirations 17, pulse 79, temperature 99.9. HEAD: Normocephalic. EYES: Pupils normal. Conjunctivae slightly pale. NECK: JVP low. Carotid equal. THORAX: AP diameter normal. LUNGS: A few fine basilar rales. CARDIOVASCULAR: S1, S2, ejection systolic murmur. No rub. ABDOMEN: Soft, nontender, no organomegaly. EXTREMITIES: No clubbing, no cyanosis. LABORATORY DATA: WBC 4.4, hemoglobin 9.8, hematocrit 31.3, platelets 197. Sodium 134, potassium 3.9 , BUN 49, creatinine 1.1, calcium 8.7. AST 31, ALT 20, total protein 6.7, albumin 3.6. DIAGNOSES: Chronic atrial fibrillation, diabetes, hypertension, hyperlipidemia, obesity, 1-vessel co ronary artery disease with right coronary artery completely occluded with well collateralization from the left anterior descending coronary artery, moderate aortic stenosis, chronic obstructive pulmonar y disease, pulmonary hypertension, severe anemia, status post packed red blood cell transfusions. PLAN: Continue hydralazine 50 mg b.i.d., Corgard 10 mg b.i.d., warfarin 10 mg p.o. daily, Diovan 320 p.o. daily, DuoNeb hand nebulizer therapy, aspirin 81 mg p.o. daily, isosorbide mono 60 mg p.o. patricia y, Januvia 50 mg p.o. daily, potassium 10 mEq p.o. daily, furosemide 40 mg IV daily, cefepime 1 gram IV q. 8 hours, Motrin 600 mg b.i.d. p.r.n., nicotine patch, glimepiride 4 mg p.o. b.i.d., metformin 1 000 mg p.o. b.i.d., Xopenex hand nebulizer therapy p.r.n., vancomycin 1 gram IV q. 12 hours. We bo l continue present therapy. Today, the prothrombin time was 16.5, INR 1.53. The patient on warfarin 10 mg p.o. daily. We will continue that and we will follow with you. Brianna Deng MD cc: [id number] TT: 06/18/2016 12:57:34 Confirmation # [id number] Dictation # [id number] tn
--- NOTE | 2016-06-18 13:34 | DS ---
The patient is a 70-year-old, seen and examined, sitting in chair. She states her mental status has significantly improved. She is awake, alert, oriented. She had low-grade fever of 99.9 and complai adalberto of feeling tired, scanty cough. PHYSICAL EXAMINATION: VITAL SIGNS: Temperature 99.9, pulse 79, respirations 17, blood pressure 126/50. LUNGS: Bilateral soft crackles, upper lung region. HEART: S1, S2 audible. ABDOMEN: Soft, obese, nontender, no rebound, no guarding. NEUROLOGIC: She is awake and alert, communicative, ambulatory. LABORATORY EXAM: WBC is 4.4, hemoglobin 9.8, hematocrit 31.3, platelets 197. PT 16.5, INR 1.53. Ch emistry: Sodium 134, potassium 3.9, chloride 95, CO2 30, BUN 49, creatinine 1.1, blood sugar of 183. ASSESSMENT: 1. Left upper lobe infiltrate. 2. Chronic obstructive pulmonary disease. 3. Non-insulin dependent diabetes. 4. Hypertension. 5. Bilateral leg cellulitis, improving. 6. Coronary artery disease. 7. Hyperlipidemia. 8. Status post right carotid endarterectomy. 9. Gastric arteriovenous malformation, status post multiple endoscopies. PLAN: The patient is currently on Maxipime. She is on nebulizer treatment, encourage physical thera py. She has been presented to [facility] and if accepted, she will be discharged to subacute rehab an d completion of course of her antibiotic. Edwige Kirby MD cc: [phone] TT: 06/18/2016 13:33:02 tn
--- NOTE | 2016-06-18 13:58 | CP.PCM.CON ---
History of Present Illness - History of Present Illness History of Present Illness: 70 year old female with PMH of morbid obesity with BMI 42, CAD, GERD, arthritis , history of bilateral knee replacements, chronic CHF, COPD, DM, history of breast CA, History of Strep bovis bacteremia (2012), S/P Port-a-cath placement, history of Group G Strep bacteremia, history of E. coli UTI came in to [facility] because of increasing shortness of breath associated with cough productive of whitish sputum for the past 2-3 days, although she has a cough on a occasion. She denies fever or chills, no sore throat, no rhinorrhea, no chest pain, no headache or dizziness, no diarrhea, no dysuria, no abdominal pain. In the ED, CXR and CT chest revealed left-sided lung infiltrates. Infectious Diseases consult is requested to further evaluate and manage. Review of Systems - Review of Systems All systems: reviewed and no additional remarkable complaints except (as per HPI ) Past Patient History - Infectious Disease Hx of Infectious Diseases: None - Tetanus Immunizations Tetanus Immunization: Unknown - Past Medical History & Family History Past Medical History?: Yes Past Family History: Reviewed and not pertinent - Past Social History Smoking Status: Current Some Days Smoker Alcohol: Occasional Drugs: Denies Home Situation {Lives}: With Family - CARDIAC Hx Cardiac Disorders: Yes Hx Congestive Heart Failure: Yes Hx Hypertension: Yes - PULMONARY Hx Chronic Obstructive Pulmonary Disease (COPD): Yes (Home O2 2L) - NEUROLOGICAL Hx Neurological Disorder: Yes - HEENT Hx HEENT Problems: No - RENAL Hx Renal Failure: Yes - ENDOCRINE/METABOLIC Hx Diabetes Mellitus Type 2: Yes Hx Hypothyroidism: Yes - HEMATOLOGICAL/ONCOLOGICAL Hx Blood Transfusions: No Hx Blood Transfusion Reaction: No - INTEGUMENTARY Hx Dermatological Problems: Yes Other/Comment: +3 pitting edema ble redness dry skin, toenail was removed to b/ l great toes " yrs ago". small red area to nose - MUSCULOSKELETAL/RHEUMATOLOGICAL Hx Falls: No - GASTROINTESTINAL Hx Gastrointestinal Disorders: Yes (obesity) Hx Gastroesophageal Reflux: Yes (GI bleed) - GENITOURINARY/GYNECOLOGICAL Hx Genitourinary Disorders: Yes Hx Incontinence: Yes - PSYCHIATRIC Hx Substance Use: Yes - SURGICAL HISTORY Hx Cardiac Catheterization: Yes Hx Hysterectomy: Yes Hx Joint Replacement: Yes (bilateral knee replacement) Other/Comment: L breast lumpectomy, h/o breast CA, rcw pac - ANESTHESIA Hx Anesthesia Reactions: No Hx Malignant Hyperthermia: No Meds Allergies/Adverse Reactions: Allergies Allergy/AdvReac Type Severity Reaction Status Date / Time No Known Allergies Allergy Verified 06/08/16 20:30 - Medications Medications: Current Medications Acetaminophen (Tylenol 325mg Tab) 650 mg PO Q6H PRN PRN Reason: Fever >100.4 F Last Admin: 06/17/16 12:05 Dose: 650 mg Albuterol/Ipratropium (Duoneb 3 Mg/0.5 Mg (3 Ml) Ud) 3 ml IH Q2H PRN PRN Reason: Shortness of Breath Aspirin (Ecotrin) 81 mg PO DAILY [facility] Last Admin: 06/17/16 11:08 Dose: 81 mg Furosemide (Lasix) 40 mg IVP DAILY [facility] Last Admin: 06/17/16 11:09 Dose: 40 mg Glimepiride (Amaryl) 4 mg PO BID [facility] Last Admin: 06/17/16 17:30 Dose: 4 mg Hydralazine HCl (Apresoline) 50 mg PO BID [facility] Last Admin: 06/17/16 17:30 Dose: 50 mg Ceftriaxone Sodium (Rocephin 1 Gram Ivpb) 100 mls @ 100 mls/hr IVPB DAILY [facility] PRN Reason: Protocol Last Admin: 06/17/16 11:03 Dose: 100 mls/hr Vancomycin HCl (Vancomycin 1gm) 250 mls @ 167 mls/hr IVPB Q12H [facility] PRN Reason: Protocol Last Admin: 06/17/16 22:19 Dose: 167 mls/hr Ibuprofen (Motrin Tab) 600 mg PO BID PRN PRN Reason: Pain, moderate (4-7) Insulin Human Regular (Humulin R Med) 0 units SC ACHS [facility] PRN Reason: Protocol Last Admin: 06/17/16 22:18 Dose: Not Given Isosorbide Mononitrate (Imdur) 60 mg PO DAILY [facility] Last Admin: 06/17/16 11:08 Dose: 60 mg Lactic Acid (Lac-Hydrin 12% Lotion (225 G)) 0 gm EXT BID [facility] Last Admin: 06/17/16 17:34 Dose: 1 applic Levalbuterol HCl (Xopenex) 1.25 mg IH [id number] PRN PRN Reason: Shortness of Breath Levalbuterol HCl (Xopenex) 1.25 mg IH [id number] PRN PRN Reason: Shortness of Breath Metformin HCl (Glucophage) 1,000 mg PO BID [facility] Last Admin: 06/17/16 17:30 Dose: 1,000 mg Nadolol (Corgard) 10 mg PO BID [facility] Last Admin: 06/17/16 17:30 Dose: 10 mg Nicotine (Nicoderm Cq) 1 patch TD DAILY [facility] Last Admin: 06/17/16 11:10 Dose: 1 patch Nystatin/Triamcinolone Acetonide (Nystatin/Triamcinolone Cream) 0 ea TOP BID [facility] Last Admin: 06/17/16 17:34 Dose: 1 applic Oxycodone/Acetaminophen (Percocet 5/325 Mg Tab) 1 tab PO Q4H PRN PRN Reason: Pain, moderate (4-7) Stop: 06/18/16 15:30 Pantoprazole Sodium (Protonix Ec Tab) 40 mg PO ACB [facility] Last Admin: 06/17/16 11:07 Dose: 40 mg Potassium Chloride (Klor-Con 10) 10 meq PO DAILY [facility] Last Admin: 06/17/16 11:08 Dose: 10 meq Sitagliptin Phosphate (Januvia) 50 mg PO DAILY [facility] Last Admin: 06/17/16 11:07 Dose: 50 mg Tiotropium [place] (Spiriva) 18 mcg IH DAILY [facility] Last Admin: 06/17/16 11:03 Dose: 18 mcg Valsartan (Diovan) 320 mg PO DAILY [facility] Last Admin: 06/17/16 11:07 Dose: 320 mg Warfarin Sodium (Coumadin) 4 mg PO 1800 [facility] PRN Reason: Protocol Last Admin: 06/17/16 17:31 Dose: 4 mg Physical Exam - Constitutional Appears: Non-toxic, No Acute Distress - Head Exam Head Exam: NORMAL INSPECTION - ENT Exam ENT Exam: Mucous Membranes Moist - Neck Exam Neck exam: Negative for: Lymphadenopathy, Meningismus - Respiratory Exam Respiratory Exam: Decreased Breath Sounds - Cardiovascular Exam Cardiovascular Exam: +S1, +S2 - GI/Abdominal Exam GI & Abdominal Exam: Soft. absent: Tenderness Results - Vital Signs Recent Vital Signs: Last Vital Signs Temp 98.6 F 06/17/16 16:00 Pulse 88 06/17/16 19:40 Resp 18 06/17/16 16:00 BP 150/102 H 06/17/16 19:40 Pulse Ox 99 06/17/16 16:00 - Labs Result Diagrams: 06/18/16 06:50 06/18/16 06:50 Labs: Laboratory Results - last 24 hr 06/17/16 06/17/16 06/17/16 00:10 07:44 11:47 POC Glucose (mg/dL) 107 107 105 06/17/16 06/17/16 06/17/16 15:10 16:05 21:22 POC Glucose (mg/dL) 162 H 141 H 153 H Assessment & Plan - Assessment and Plan (Free Text) Plan: Assessment Sepsis with acute hypoxic respiratory failure secondary to left-sided healthcare -associated pneumonia with possible gram positive cocci and/or gram negative bacilli Coagulase negative staph in one out of 4 bottles, consider contamination history of Group G Strep bacteremia history of E. coli UTI history of healthcare-associated pneumonia acute renal failure obesity with BMI 38 CAD GERD arthritis history of bilateral knee replacements chronic CHF COPD DM history of breast CA History of Strep bovis bacteremia (2012) S/P Port-a-cath placement Plan started patient on Vancomycin and Cefepime pending sputum cx; reviewed CXR; will follow up PCT will repeat 2 sets of blood cx Will monitor clinical response
[2016-06-18 14:58] VITALS: TEMP 98.6
[2016-06-18 16:13] VITALS: BP 110/50; PULSE 65; RESP 18; O2SAT 94
== END 2016-06-18 17:31 | DRG 166 ==
LOC: ED 20:24 → ERH 22:55 → 2RSO 06-10 00:23 → 3RSO 06-11 16:22
PROVIDERS: ADMIT Internal Medicine; ATTEND Internal Medicine
PROC: 30233N1 Transfusion of Nonautologous Red Blood Cells into Peripheral Vein, Percutaneous Approach (ICD-10-PCS; 2016-06-10)
PROC: 0HBNXZZ Excision of Left Foot Skin, External Approach (ICD-10-PCS; principal; 2016-06-14)
PROC: 0HBMXZZ Excision of Right Foot Skin, External Approach (ICD-10-PCS; 2016-06-14)
DX: J69.0 Pneumonitis due to inhalation of food and vomit (principal); A41.9 Sepsis, unspecified organism; J96.01 Acute respiratory failure with hypoxia; I50.43 Acute on chronic combined systolic (congestive) and diastolic (congestive) heart failure; N17.9 Acute kidney failure, unspecified; K52.1 Toxic gastroenteritis and colitis; L03.115 Cellulitis of right lower limb; J44.1 Chronic obstructive pulmonary disease with (acute) exacerbation; L03.116 Cellulitis of left lower limb; N39.0 Urinary tract infection, site not specified; I25.82 Chronic total occlusion of coronary artery; E66.01 Morbid (severe) obesity due to excess calories; K76.1 Chronic passive congestion of liver; I11.0 Hypertensive heart disease with heart failure; I27.2 Other secondary pulmonary hypertension; D64.9 Anemia, unspecified; E11.9 Type 2 diabetes mellitus without complications; I48.2 Chronic atrial fibrillation; I25.10 Atherosclerotic heart disease of native coronary artery without angina pectoris; I08.3 Combined rheumatic disorders of mitral, aortic and tricuspid valves; E03.9 Hypothyroidism, unspecified; E78.5 Hyperlipidemia, unspecified; F17.210 Nicotine dependence, cigarettes, uncomplicated; K21.9 Gastro-esophageal reflux disease without esophagitis; K27.9 Peptic ulcer, site unspecified, unspecified as acute or chronic, without hemorrhage or perforation; K31.819 Angiodysplasia of stomach and duodenum without bleeding; K31.89 Other diseases of stomach and duodenum; Z68.38 Body mass index [BMI] 38.0-38.9, adult; Z79.01 Long term (current) use of anticoagulants; Z79.51 Long term (current) use of inhaled steroids; Z79.82 Long term (current) use of aspirin; Z79.84 Long term (current) use of oral hypoglycemic drugs; Z85.3 Personal history of malignant neoplasm of breast; Y95 Nosocomial condition; Q27.33 Arteriovenous malformation of digestive system vessel; K29.70 Gastritis, unspecified, without bleeding; M19.90 Unspecified osteoarthritis, unspecified site; M77.30 Calcaneal spur, unspecified foot; Z96.653 Presence of artificial knee joint, bilateral; Z90.710 Acquired absence of both cervix and uterus; Z87.440 Personal history of urinary (tract) infections; B96.20 Unspecified Escherichia coli [E. coli] as the cause of diseases classified elsewhere; Z91.81 History of falling; R40.2412 Glasgow coma scale score 13-15, at arrival to emergency department; Z87.19 Personal history of other diseases of the digestive system; R32 Unspecified urinary incontinence; R00.1 Bradycardia, unspecified; R53.81 Other malaise; R26.2 Difficulty in walking, not elsewhere classified; R41.0 Disorientation, unspecified; T42.6X5A Adverse effect of other antiepileptic and sedative-hypnotic drugs, initial encounter; R23.4 Changes in skin texture; T36.95XA Adverse effect of unspecified systemic antibiotic, initial encounter

== ENCOUNTER 2016-06-18 17:31 | Inpatient (IN) | payer MEDICARE ==
[2016-06-18] MEDS ORDERED: Sodium Chloride 0.9% 500 ML IV SCH (19:15)
[2016-06-18] MEDS ORDERED: Albuterol-Ipratrop 3 mg / 0.5 (3 ml) UD IH PRN (20:21)
[2016-06-18] MEDS ORDERED: Levalbuterol 1.25 MG/3 ML Inhal Soln UD IH PRN ×2 (20:21→20:50)
[2016-06-18] MEDS: Cefepime 1gm in NS 100ml 100 ML IVPB SCH (22:22)
[2016-06-18] MEDS: Insulin Reg-MEDIUM-Coverage SC SCH (22:22)
[2016-06-18] MEDS: Vancomycin 1gm in NS 250ml 250 ML IVPB SCH (22:22)
[2016-06-18] MEDS ORDERED: Dextrose 50% SYRINGE Inj (50 ml) ONE (23:15)
[2016-06-18 23:24] VITALS: BMI 41.8
[2016-06-18] MEDS ORDERED: Influenza Vaccine 45 MCG/0.5 ml IM ONE (23:25)
[2016-06-18] MEDS ORDERED: Pneumococcal 23-Valent Vaccine IM ONE (23:25)
[2016-06-19] MEDS: Pantoprazole 40 mg EC Tab PO SCH (05:39)
[2016-06-19] MEDS: Cefepime 1gm in NS 100ml 100 ML IVPB SCH ×3 (06:04→21:45)
[2016-06-19] MEDS: Insulin Reg-MEDIUM-Coverage SC SCH ×4 (06:47→22:08)
[2016-06-19 07:12] LABS: INR 1.46 (0.93-1.08)
[2016-06-19] MEDS: Potassium Chloride 10 mEq ER Tab PO SCH (08:40)
[2016-06-19] MEDS: Ammonium Lactate 12% Lotion (225 g) EXT SCH ×2 (11:18→17:47)
[2016-06-19] MEDS: Nystatin-Triamcinolone Cream(30 gm) TOP SCH ×2 (11:19→17:47)
[2016-06-19] MEDS: Vancomycin 1gm in NS 250ml 250 ML IVPB SCH ×2 (11:20→21:45)
[2016-06-19] MEDS: Tiotropium 18 mcg Cap For Inhalation IH SCH (11:20)
--- NOTE | 2016-06-19 12:25 | CON ---
DATE: 06/19/2016 The patient is in room 313, bed 1. REASON FOR CONSULTATION: Coronary artery disease, chronic atrial fibrillation, COPD, hypertension. HISTORY OF PRESENT ILLNESS: The patient is a 70-year-old morbidly obese female with past medical his tory significant for tobacco abuse, patient continues to smoke, hypertension, diabetes, hyperlipidemi a, chronic atrial fibrillation, coronary artery disease, COPD, was admitted to the medical floor with shortness of breath, cough and congestion. The patient was treated on medical floor and she improve d and patient also was found to have anemia. She got blood transfusion. 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 The patient now transferred to transitional care unit for deconditio eunice and physical therapy. PAST MEDICAL HISTORY: Positive for diabetes, hypertension, hyperlipidemia, chronic atrial fibrillati on, morbid obesity, congestive heart failure, history of single vessel RCA totally occluded, very wel l collateralized from LAD on cardiac catheterization 2-1/2 years ago, COPD, pulmonary hypertension, h istory of GI bleed, on Coumadin. The patient has history of arteriovenous malformation in the stomac h. PREVIOUS CARDIAC WORKUP: The patient had cardiac catheterization 2-1/2 years ago, 1-vessel coronary artery disease, RCA totally occluded and very well collateralized from LAD. Recently, patient had TE E to rule out endocarditis dated 04/07/2016 that showed ejection fraction 65%. The patient was in atr ial fibrillation, trace aortic regurg, moderate valvular aortic stenosis, valve area 1 cm squared by planimetry and continuity equation, peak gradient across the aortic valve was 21 mmHg, mitral regurgi tation was moderate to severe, mild to moderate tricuspid regurg, moderate plaque in descending aorta , no vegetations were seen on 04/07/2016. PERSONAL HISTORY: Despite telling patient multiple times, patient continues to smoke. Denies drinki ng. ALLERGIES: No known allergies. HOME MEDICATIONS: The patient was on hydralazine, warfarin, valsartan, Spiriva, potassium, nadolol, Cozaar, isosorbide mono, glimepiride, Amaryl, Lasix 40 in the morning and 20 mg at noon time, aspirin , albuterol inhaler. REVIEW OF SYSTEMS: All the systems were reviewed, positives mentioned in the history, others were ne gative. PHYSICAL EXAMINATION: VITAL SIGNS: Blood pressure 100/73, respirations 20, pulse 78, temperature 99. HEAD: Normocephalic. EYES: Pupils normal. Conjunctivae slightly pale. NECK: JVP low. Carotid equal. THORAX: AP diameter normal. LUNGS: No significant rales. CARDIOVASCULAR: S1, S2, ejection systolic murmur grade III/. No rub. ABDOMEN: Soft, no tenderness, no organomegaly. EXTREMITIES: No clubbing, no cyanosis. LABORATORY DATA: WBC 4.4, hemoglobin 9.8, hematocrit 31.3, platelets 197. Random sugar 139, sodium 134, potassium 3.9, BUN 49, creatinine 1.1. AST, ALT normal. DIAGNOSES: Chronic atrial fibrillation, diabetes mellitus, hypertension, hyperlipidemia, obesity, 1- vessel coronary artery disease, totally occluded right coronary artery getting collateral from left a nterior descending, moderate aortic stenosis, chronic obstructive pulmonary disease, pulmonary hypert ension, severe anemia, status post packed cell transfusions, history of arteriovenous malformation in the stomach, deconditioning. PLAN: To continue hydralazine 50 mg b.i.d., nadolol 10 mg p.o. b.i.d., warfarin 10 mg p.o. daily, Di ovan 320 p.o. daily, DuoNeb hand nebulizer therapy, aspirin 81 mg p.o. daily, insulin as ordered, iso sorbide mono 60 mg p.o. daily, Januvia 50 mg p.o. daily, potassium chloride 10 mEq p.o. daily, furose mide 40 mg IV daily, Maxipime 1 gram IV q. 8 hours, Protonix 40 mg daily, Spiriva 18 mcg inhaled patricia y, vancomycin 1 gram IV q. 12 hours, Xopenex hand nebulizer therapy, Amaryl 4 mg b.i.d., metformin 10 00 mg p.o. b.i.d. Continue physical therapy. We will follow with you. Brianna Deng MD cc: [phone] TT: 06/19/2016 12:24:28 Confirmation # [id number] Dictation # [id number] en
--- NOTE | 2016-06-19 13:31 | CP.PCM.CON ---
History of Present Illness - History of Present Illness History of Present Illness: 70 year old female with PMH of morbid obesity with BMI 42, CAD, GERD, arthritis , history of bilateral knee replacements, chronic CHF, COPD, DM, history of breast CA, History of Strep bovis bacteremia (2012), S/P Port-a-cath placement, history of Group G Strep bacteremia, history of E. coli UTI was initially admitted in [facility] because of increasing shortness of breath with cough. She was found to have left-sided pneumonia and was placed on antibiotics. She is now transferred to [facility] for continued medical therapy and physical rehabilitation. Infectious Diseases consult is requested to continue her antibiotic management. She is currently afebrile, breathing a little better. Still with cough but a little better as well. Denies nausea or vomiting , no diarrhea, no abdominal pain, no diarrhea, no dysuria, no chest pain. Review of Systems - Review of Systems All systems: reviewed and no additional remarkable complaints except (as per HPI ) Past Patient History - Infectious Disease Hx of Infectious Diseases: None - Tetanus Immunizations Tetanus Immunization: Unknown - Past Medical History & Family History Past Medical History?: Yes Past Family History: Reviewed and not pertinent - Past Social History Smoking Status: Current Some Days Smoker Alcohol: None Drugs: Denies - CARDIAC Hx Cardiac Disorders: Yes Hx Congestive Heart Failure: Yes Hx Hypertension: Yes - PULMONARY Hx Chronic Obstructive Pulmonary Disease (COPD): Yes (Home O2 2L) - NEUROLOGICAL Hx Neurological Disorder: Yes - HEENT Hx HEENT Problems: No - RENAL Hx Renal Failure: Yes - ENDOCRINE/METABOLIC Hx Diabetes Mellitus Type 2: Yes Hx Hypothyroidism: Yes - HEMATOLOGICAL/ONCOLOGICAL Hx Blood Transfusions: No Hx Blood Transfusion Reaction: No - INTEGUMENTARY Hx Dermatological Problems: Yes Other/Comment: +3 pitting edema ble redness dry skin, toenail was removed to b/ l great toes " yrs ago". small red area to nose - MUSCULOSKELETAL/RHEUMATOLOGICAL Hx Falls: No - GASTROINTESTINAL Hx Gastrointestinal Disorders: (obese/reflux/gib) - GENITOURINARY/GYNECOLOGICAL Hx Reproductive Disorders: Yes (breast ca/ hyst) - PSYCHIATRIC Hx Substance Use: Yes - SURGICAL HISTORY Hx Cardiac Catheterization: Yes Hx Hysterectomy: Yes Hx Joint Replacement: Yes (bilateral knee replacement) Other/Comment: L breast lumpectomy, h/o breast CA, rcw pac - ANESTHESIA Hx Anesthesia Reactions: No Hx Malignant Hyperthermia: No Meds Allergies/Adverse Reactions: Allergies Allergy/AdvReac Type Severity Reaction Status Date / Time No Known Allergies Allergy Verified 06/18/16 20:18 - Medications Medications: Current Medications Acetaminophen (Tylenol 325mg Tab) 650 mg PO Q6H PRN; Protocol PRN Reason: Fever >100.4 F Albuterol/Ipratropium (Duoneb 3 Mg/0.5 Mg (3 Ml) Ud) 3 ml IH Q2H PRN; Protocol PRN Reason: Shortness of Breath Aspirin (Ecotrin) 81 mg PO 0800 [facility] PRN Reason: Protocol Furosemide (Lasix) 40 mg IVP DAILY [facility] PRN Reason: Protocol Glimepiride (Amaryl) 4 mg PO BID [facility] PRN Reason: Protocol Hydralazine HCl (Apresoline) 50 mg PO BID [facility] PRN Reason: Protocol Cefepime HCl (Maxipime 1gm) 100 mls @ 100 mls/hr IVPB Q8 [facility] PRN Reason: Protocol Last Admin: 06/19/16 06:04 Dose: 100 mls/hr Vancomycin HCl (Vancomycin 1gm) 250 mls @ 167 mls/hr IVPB Q12H [facility] PRN Reason: Protocol Last Admin: 06/18/16 22:22 Dose: 167 mls/hr Ibuprofen (Motrin Tab) 600 mg PO BID PRN; Protocol PRN Reason: Pain, moderate (4-7) Insulin Human Regular (Humulin R Med) 0 units SC ACHS [facility] PRN Reason: Protocol Last Admin: 06/19/16 06:47 Dose: Not Given Isosorbide Mononitrate (Imdur) 60 mg PO 0630 [facility] PRN Reason: Protocol Last Admin: 06/19/16 05:39 Dose: 60 mg Lactic Acid (Lac-Hydrin 12% Lotion (225 G)) 0 gm EXT BID [facility] PRN Reason: Protocol Levalbuterol HCl (Xopenex) 1.25 mg IH [id number] PRN; Protocol PRN Reason: Shortness of Breath Levalbuterol HCl (Xopenex) 1.25 mg IH [id number] PRN; Protocol PRN Reason: Shortness of Breath Metformin HCl (Glucophage) 1,000 mg PO 0800,1700 [facility] PRN Reason: Protocol Last Admin: 06/19/16 08:05 Dose: Not Given Nadolol (Corgard) 10 mg PO BID [facility] PRN Reason: Protocol Nicotine (Nicoderm Cq) 1 patch TD DAILY [facility] PRN Reason: Protocol Nystatin/Triamcinolone Acetonide (Nystatin/Triamcinolone Cream) 0 ea TOP BID [facility] PRN Reason: Protocol Pantoprazole Sodium (Protonix Ec Tab) 40 mg PO 0630 [facility] PRN Reason: Protocol Last Admin: 06/19/16 05:39 Dose: 40 mg Potassium Chloride (Klor-Con 10) 10 meq PO 0800 [facility] PRN Reason: Protocol Sitagliptin Phosphate (Januvia) 50 mg PO DAILY [facility] PRN Reason: Protocol Tiotropium [place] (Spiriva) 18 mcg IH DAILY [facility] PRN Reason: Protocol Valsartan (Diovan) 320 mg PO DAILY [facility] PRN Reason: Protocol Warfarin Sodium (Coumadin) 10 mg PO 1800 [facility] PRN Reason: Protocol Physical Exam - Constitutional Appears: No Acute Distress - Head Exam Head Exam: NORMAL INSPECTION - Respiratory Exam Respiratory Exam: Decreased Breath Sounds - Cardiovascular Exam Cardiovascular Exam: +S1, +S2 - GI/Abdominal Exam GI & Abdominal Exam: Soft. absent: Tenderness Results - Vital Signs Recent Vital Signs: Last Vital Signs Temp 99 F 06/18/16 23:15 Pulse 78 06/18/16 23:15 Resp 20 06/18/16 23:15 BP 83/44 L 06/18/16 23:15 Pulse Ox - Labs Labs: Laboratory Results - last 24 hr 06/19/16 06/19/16 06/19/16 00:02 01:56 02:37 PT INR POC Glucose (mg/dL) 124 H 58 L 89 06/19/16 06/19/16 04:48 06:50 PT 15.8 H INR 1.46 H POC Glucose (mg/dL) 104 Assessment & Plan - Assessment and Plan (Free Text) Plan: Assessment Sepsis with acute hypoxic respiratory failure secondary to left-sided healthcare -associated pneumonia with possible gram positive cocci and/or gram negative bacilli, slowly improving Coagulase negative staph in one out of 4 bottles, consider contamination history of Group G Strep bacteremia history of E. coli UTI history of healthcare-associated pneumonia acute renal failure obesity with BMI 38 CAD GERD arthritis history of bilateral knee replacements chronic CHF COPD DM history of breast CA History of Strep bovis bacteremia (2012) S/P Port-a-cath placement Plan continue Vancomycin and Cefepime day 2 pending sputum cx; reviewed CXR; check PCT will repeat 2 sets of blood cx Will continue to monitor clinical response
--- NOTE | 2016-06-19 13:51 | HP ---
HISTORY OF PRESENT ILLNESS: The patient is a 70-year-old, seen and examined. The patient was transf erred from acute care floor because she had new onset of fever and found to have left upper lobe infi ltrate, needed IV antibiotic and physical therapy, so transferred to TCU to complete her course of an tibiotic and get physical therapy. On examination today, denies fever, chills. No nausea, vomiting. Does have cough that is productive, binging clear to yellow phlegm. PAST MEDICAL HISTORY: Significant for: 1. Non-insulin dependent diabetes. 2. Hypertension. 3. Hyperlipidemia. 4. Coronary artery disease with complete occlusion of RCA with good collaterals. 5. Gastropathy, congestive. 6. Pulmonary hypertension. 7. Right heart failure. 8. Chronic anemia. ALLERGIES: She is not allergic to any medications. MEDICATIONS AT HOME: She is on hydralazine 50 mg twice a day, Coumadin 10 mg daily, Diovan 320 daily , Spiriva 18 mcg daily. She is on Janumet, potassium 10 mEq daily, Protonix 40 daily. She is on a n icotine patch, nadolol 10 mg twice a day, metformin 1000 twice a day, Xopenex 1.25 q. 6, isosorbide 6 0 mg daily, glimepiride 4 mg twice a day, Lasix 40 mg daily, aspirin 81 daily. SOCIAL HISTORY: She is single, lives by herself. Daughter is supportive. She is actively smoking a s soon as she goes home. PHYSICAL EXAMINATION: GENERAL: She is awake and alert, communicative. VITAL SIGNS: She is afebrile, pulse 56, respirations 20, blood pressure 100/73. LUNGS: Bilateral fair airflow, no rhonchi or crackle. HEART: S1, S2 audible. ABDOMEN: Soft, nontender, no rebound, no guarding. NEUROLOGIC: The patient is awake and alert, communicative. Moves all extremities. EXTREMITIES: Bilateral legs +1 edema. LABORATORY EXAM: Today, PT is 15.8, INR 1.46. ASSESSMENT: 1. Hospital-acquired pneumonia. 2. Hypertension. 3. Coronary artery disease. 4. Chronic obstructive pulmonary disease. 5. Non-insulin dependent diabetes. 6. Congestive gastropathy. 7. Hyperlipidemia. 8. Deconditioning and difficulty walking. PLAN: I will make some adjustment in her blood pressure medication since her blood pressure has been running low. We will follow PT/INR in a.m. Edwige Kirby MD cc: [phone] TT: 06/19/2016 13:51:18 tn
[2016-06-19 15:40] LABS: ALB/GLOB RATIO 1.2 (1.1-1.8); BILIRUBIN,TOTAL 0.4 mg/dL (0.2-1.3); CALCIUM 8.9 mg/dL (8.4-10.5); POTASSIUM 4.4 mmol/L (3.6-5.0); TOTAL PROTEIN 6.9 g/dL (5.8-8.3)
[2016-06-20] MEDS: Cefepime 1gm in NS 100ml 100 ML IVPB SCH ×3 (05:38→22:36)
[2016-06-20] MEDS: Pantoprazole 40 mg EC Tab PO SCH (05:39)
[2016-06-20] MEDS: Insulin Reg-MEDIUM-Coverage SC SCH ×4 (06:49→22:45)
[2016-06-20] MEDS: Potassium Chloride 10 mEq ER Tab PO SCH (08:21)
[2016-06-20] MEDS: Tiotropium 18 mcg Cap For Inhalation IH SCH (09:44)
[2016-06-20] MEDS: Ammonium Lactate 12% Lotion (225 g) EXT SCH ×2 (09:45→17:09)
[2016-06-20] MEDS: Nystatin-Triamcinolone Cream(30 gm) TOP SCH ×2 (11:08→17:09)
--- NOTE | 2016-06-20 11:58 | PN ---
DATE: 06/20/2016 The patient is in room 313, bed 1. REASON FOR CONSULTATION: Coronary artery disease, chronic atrial fibrillation, COPD, hypertension. HISTORY OF PRESENT ILLNESS: The patient is a 70-year-old morbidly obese female with past medical his tory significant for tobacco abuse, and the patient continues to still smoke; hypertension, diabetes, hyperlipidemia, chronic atrial fibrillation, coronary artery disease, was admitted to medical floor with shortness of breath, cough and congestion. The patient was treated on medical floor. She impro ernie, and now she is in transitional care unit for deconditioning and physical therapy. The patient a lso found to have anemia, and got blood transfusions. The patient has history of AV malformation of the stomach. The patient sitting in chair without any chest pain. She says breathing is also stable . No palpitation. PHYSICAL EXAMINATION: VITAL SIGNS: Blood pressure 132/72, respirations 20, pulse 75. The patient is afebrile. HEAD: Normocephalic. EYES: Pupils normal. Conjunctivae slightly pale. NECK: JVP low. Carotid equal. THORAX: AP diameter normal. LUNGS: No significant rales. CARDIOVASCULAR: S1, S2, systolic murmur, no rub. ABDOMEN: Protuberant, no organomegaly. EXTREMITIES: No clubbing, no cyanosis. LABORATORY DATA: Sodium 133, potassium 4.4, BUN 58, creatinine 1.4. Random sugar 202. Calcium, pebbles irubin, AST, ALT, total protein, and albumin normal. Prothrombin time 15.8, INR 1.46. DIAGNOSES: Chronic atrial fibrillation, diabetes mellitus, hypertension, hyperlipidemia, obesity, 1- vessel coronary artery disease totally occluded, right coronary artery was getting good collaterals f rom left anterior descending coronary artery, moderate aortic stenosis, chronic obstructive pulmonary disease, pulmonary hypertension, severe anemia, status post packed cell transfusions, history of art eriovenous malformation in the stomach, deconditioning. PLAN: Corgard 10 mg b.i.d., warfarin 10 mg daily, Diovan 320 p.o. daily, Doryx 100 mg q. 12 hours, D uoNeb hand nebulizer therapy, aspirin 81 mg daily, isosorbide mono 60 p.o. daily, Januvia 50 mg daily , metformin 1000 mg p.o. b.i.d., Amaryl 4 mg b.i.d., Xopenex p.r.n. The patient getting physical therapy. Will continue present therapy and will follow with you. Brianna Deng MD cc: [phone] TT: 06/20/2016 11:58:52 Confirmation # [id number] Dictation # [id number] jn
--- NOTE | 2016-06-20 13:25 | CP.PCM.PN ---
Subjective - Date & Time of Evaluation Date of Evaluation: 06/20/16 Time of Evaluation: 10:30 - Subjective Subjective: Comfortable in bed, not in distress, afebrile, less short of breath. Objective - Vital Signs/Intake and Output Vital Signs (last 24 hours): Temp Pulse Resp BP Pulse Ox 98.8 F 75 20 75/45 L 100 06/19/16 10:00 06/19/16 17:46 06/19/16 10:00 06/19/16 17:46 06/19/16 10:00 - Medications Medications: Current Medications Acetaminophen (Tylenol 325mg Tab) 650 mg PO Q6H PRN; Protocol PRN Reason: Fever >100.4 F Albuterol/Ipratropium (Duoneb 3 Mg/0.5 Mg (3 Ml) Ud) 3 ml IH Q2H PRN; Protocol PRN Reason: Shortness of Breath Aspirin (Ecotrin) 81 mg PO 0800 [facility] PRN Reason: Protocol Last Admin: 06/20/16 08:20 Dose: 81 mg Doxycycline Hyclate (Doryx) 100 mg PO Q12 [facility] PRN Reason: Protocol Furosemide (Lasix) 40 mg IVP DAILY [facility] PRN Reason: Protocol Last Admin: 06/19/16 11:25 Dose: 40 mg Glimepiride (Amaryl) 4 mg PO BID [facility] PRN Reason: Protocol Last Admin: 06/19/16 17:46 Dose: Not Given Hydralazine HCl (Apresoline) 50 mg PO BID PRN; Protocol PRN Reason: IF BP>160 Cefepime HCl (Maxipime 1gm) 100 mls @ 100 mls/hr IVPB Q8 [facility] PRN Reason: Protocol Last Admin: 06/20/16 05:38 Dose: 100 mls/hr Ibuprofen (Motrin Tab) 600 mg PO BID PRN; Protocol PRN Reason: Pain, moderate (4-7) Insulin Human Regular (Humulin R Med) 0 units SC ACHS [facility] PRN Reason: Protocol Last Admin: 06/20/16 06:49 Dose: Not Given Isosorbide Mononitrate (Imdur) 60 mg PO 0630 [facility] PRN Reason: Protocol Last Admin: 06/20/16 05:39 Dose: 60 mg Lactic Acid (Lac-Hydrin 12% Lotion (225 G)) 0 gm EXT BID [facility] PRN Reason: Protocol Last Admin: 06/19/16 17:47 Dose: 1 applic Levalbuterol HCl (Xopenex) 1.25 mg IH [id number] PRN; Protocol PRN Reason: Shortness of Breath Metformin HCl (Glucophage) 1,000 mg PO 0800,1700 [facility] PRN Reason: Protocol Last Admin: 06/20/16 08:20 Dose: 1,000 mg Nadolol (Corgard) 10 mg PO BID [facility] PRN Reason: Protocol Last Admin: 06/19/16 17:46 Dose: Not Given Nicotine (Nicoderm Cq) 1 patch TD DAILY [facility] PRN Reason: Protocol Last Admin: 06/19/16 11:26 Dose: 1 patch Nystatin/Triamcinolone Acetonide (Nystatin/Triamcinolone Cream) 0 ea TOP BID [facility] PRN Reason: Protocol Last Admin: 06/19/16 17:47 Dose: Not Given Pantoprazole Sodium (Protonix Ec Tab) 40 mg PO 0630 [facility] PRN Reason: Protocol Last Admin: 06/20/16 05:39 Dose: 40 mg Potassium Chloride (Klor-Con 10) 10 meq PO 0800 [facility] PRN Reason: Protocol Last Admin: 06/20/16 08:21 Dose: 10 meq Sitagliptin Phosphate (Januvia) 50 mg PO DAILY [facility] PRN Reason: Protocol Last Admin: 06/19/16 11:18 Dose: Not Given Tiotropium [place] (Spiriva) 18 mcg IH DAILY [facility] PRN Reason: Protocol Last Admin: 06/19/16 11:20 Dose: 18 mcg Valsartan (Diovan) 320 mg PO DAILY [facility] PRN Reason: Protocol Last Admin: 06/19/16 11:18 Dose: Not Given Warfarin Sodium (Coumadin) 10 mg PO 1800 [facility] PRN Reason: Protocol Last Admin: 06/19/16 17:47 Dose: 10 mg - Labs Labs: 06/19/16 15:10 PT 15.8 Seconds (9.9-11.8) H 06/19/16 06:50 INR 1.46 (0.93-1.08) H 06/19/16 06:50 - Constitutional Appears: Non-toxic, No Acute Distress - Head Exam Head Exam: NORMAL INSPECTION - Respiratory Exam Respiratory Exam: Decreased Breath Sounds - Cardiovascular Exam Cardiovascular Exam: +S1, +S2 - GI/Abdominal Exam GI & Abdominal Exam: absent: Tenderness Assessment and Plan - Assessment and Plan (Free Text) Plan: Assessment Sepsis with acute hypoxic respiratory failure secondary to left-sided healthcare -associated pneumonia with possible gram positive cocci and/or gram negative bacilli as well as persistent methicillin-resistant coagulase negative staph bacteremia, R/O port infection history of Group G Strep bacteremia history of E. coli UTI history of healthcare-associated pneumonia acute renal failure obesity with BMI 38 CAD GERD arthritis history of bilateral knee replacements chronic CHF COPD DM history of breast CA History of Strep bovis bacteremia (2012) S/P Port-a-cath placement Plan continue Cefepime day 3 and Doxycycline; will d/c Vancomycin because of the change in renal function and switch to Daptomycin; reviewed CXR; PCT noted to be low will follow up the repeat 2 sets of blood cx from yesterday; will order 2D echo - port may need to be removed Will continue to monitor clinical response
--- NOTE | 2016-06-20 15:27 | PN ---
DATE: 06/20/2016 A 70-year-old female seen at bedside for continued evaluation and management of painful bilateral kay ls. The patient states her heels are feeling much better since the medication has been applied. VITAL SIGNS: Reveal a temperature of 98.3, pulse rate of 75, blood pressure of 100/73 and a respirat ory rate of 18. LABORATORY FINDINGS: Most recent reveal a white count of 4.4, hemoglobin of 9.8, hematocrit of 31.3, platelet count of 197. Her ESR is elevated at 83. OBJECTIVE: Weakly palpable dorsalis pedis pulse and nonpalpable posterior tibial pulse bilaterally. The patient is able to detect 5.07 gram monofilament wire testing bilaterally. Absent pedal hair gr owth noted bilaterally, +1 nonpitting lower extremity edema noted bilaterally. Both heels present wi th discomfort upon palpation, but no longer any pain. There are resolving heel fissures located on b oth heels. There are no acute signs of bacterial infection. ASSESSMENT: Resolving pain in both heels, secondary to healing skin fissures. PLAN: The patient's heels were examined and we will continue applying the orange-topped moisturizing cream to be done twice a day. She was told to continue offloading using the foam boots. The patien t will be seen and followed while in-house. Deric Henriquez DPM cc: [phone] TT: 06/20/2016 15:26:55 Confirmation # [id number] Dictation # [id number]
--- NOTE | 2016-06-20 22:42 | PN ---
DATE: 06/20/2016 SUBJECTIVE: The patient is 70 years old, seen and examined, lying in bed. States she is still cough ing and bringing a lot of phlegm. PHYSICAL EXAMINATION: VITAL SIGNS: He is afebrile, pulse 75, respirations 18, blood pressure 100/73. LUNGS: Bilateral fair airflow. No rhonchi or crackle. HEART: S1, S2 audible. No murmur. ABDOMEN: Soft, obese, nontender. No rebound. No guarding. NEUROLOGIC: The patient is awake and alert, communicative. ASSESSMENT: 1. hospital-acquired pneumonia. 2. Hypertension. 3. Chronic obstructive pulmonary disease. 4. Asthmatic bronchitis. 5. Left upper lobe pneumonia. 6. Non-insulin dependent diabetes. PLAN: Currently, the patient is on Maxipime, daptomycin, and doxycycline. The patient's blood press ure has been running on low side. I will hold off Diovan. Continue on her Lasix, hydralazine is as needed. Continue her on isosorbide, and follow up her CBC, CMP, PT, INR in a.m. Edwige Kirby MD cc: [phone] TT: 06/20/2016 22:41:18 Confirmation # [id number] Dictation # [id number] tn
[2016-06-21] MEDS: Cefepime 1gm in NS 100ml 100 ML IVPB SCH ×2 (05:26→13:24)
[2016-06-21] MEDS: Insulin Reg-MEDIUM-Coverage SC SCH ×4 (06:35→22:15)
[2016-06-21] MEDS: Pantoprazole 40 mg EC Tab PO SCH (06:35)
[2016-06-21 06:50] LABS: ADD MANUAL DIFF? NO
[2016-06-21 06:53] LABS: BASO # 0.01 K/mm3 (0.0-2.0); BASO % 0.3 % (0.0-3.0); EOS # 0.1 (0.0-0.7); EOS % 3.3 % (1.5-5.0); GRAN # 2.47 (1.4-6.5); HEMATOCRIT 28.9 % (36.0-48.0); LYMPH # 0.9 (1.2-3.4); LYMPH % 23.2 % (22.0-35.0); MEAN CELL VOLUME 86.5 fL (80.0-105.0); MEAN CORPUSCULAR HEMOGLOBIN 27.2 pg (25.0-35.0); MEAN CORPUSCULAR HGB CONC 31.5 g/dl (31.0-37.0); MEAN PLATELET VOLUME 9.4 fl (7.0-11.0); MONO # 0.4 (0.1-0.6); MONO % 10.2 % (1.0-6.0); PLATELET COUNT 150 10^3/uL (120.0-450.0); RED CELL DISTRIBUTION WIDTH 15.5 % (11.5-14.5); WHITE BLOOD COUNT 3.9 10^3/ul (4.5-11.0)
[2016-06-21 07:03] LABS: ALB/GLOB RATIO 1.2 (1.1-1.8); ALKALINE PHOSPHATASE 58 U/L (38-133); ALT/SGPT 20 U/L (7-56); AST/SGOT 31 U/L (15-39); BILIRUBIN,TOTAL 0.3 mg/dL (0.2-1.3); BLOOD UREA NITROGEN 52 mg/dL (7-21); CALCIUM 9.3 mg/dL (8.4-10.5); CARBON DIOXIDE 28 mmol/L (21-33); CHLORIDE 103 mmol/L (98-107); GFR AFRICAN-AMERICAN > 60; GLUCOSE,RANDOM 110 mg/dL (70-110); MAGNESIUM 1.8 mg/dL (1.7-2.2); POTASSIUM 4.2 mmol/L (3.6-5.0); SODIUM 139 mmol/L (132-148); TOTAL PROTEIN 6.9 g/dL (5.8-8.3)
[2016-06-21 07:04] LABS: INR 3.3 (0.93-1.08)
[2016-06-21] MEDS: Potassium Chloride 10 mEq ER Tab PO SCH (08:04)
--- NOTE | 2016-06-21 08:39 | CP.PCM.CON ---
<Khris Rowland - Last Filed: 06/21/16 10:05> History of Present Illness - History of Present Illness History of Present Illness: 70 year old female with a past medical history of COPD & CHF seen at bedside for follow-up podiatric care for for bilateral fissures after Transition Care Unit. Patient denies any new pedal complaints. Patient denies numbness, burning , tingling in her feet. Patient appears in NAD. Patient's offloading boots appear intact to both feet. Patient denies n/f/c/v/d/sob. Past Patient History - Infectious Disease Hx of Infectious Diseases: None - Tetanus Immunizations Tetanus Immunization: Unknown - Past Medical History & Family History Past Medical History?: Yes Past Family History: Reviewed and not pertinent - Past Social History Smoking Status: Current Some Days Smoker Alcohol: None Drugs: Denies - CARDIAC Hx Cardiac Disorders: Yes (CAD, Afib) Hx Congestive Heart Failure: Yes Hx Hypertension: Yes - PULMONARY Hx Chronic Obstructive Pulmonary Disease (COPD): Yes (+active smoker; +home O2) - NEUROLOGICAL Hx Neurological Disorder: Yes - HEENT Hx HEENT Problems: No - RENAL Hx Renal Failure: Yes - ENDOCRINE/METABOLIC Hx Diabetes Mellitus Type 2: Yes Hx Hypothyroidism: Yes - HEMATOLOGICAL/ONCOLOGICAL Hx Blood Transfusions: No Hx Blood Transfusion Reaction: No - INTEGUMENTARY Hx Dermatological Problems: Yes Other/Comment: +3 pitting edema ble redness dry skin, toenail was removed to b/ l great toes " yrs ago". small red area to nose - MUSCULOSKELETAL/RHEUMATOLOGICAL Hx Falls: No - GASTROINTESTINAL Hx Gastrointestinal Disorders: (obese/reflux/gib) - GENITOURINARY/GYNECOLOGICAL Hx Reproductive Disorders: Yes (breast ca/ hyst) - PSYCHIATRIC Hx Substance Use: Yes - SURGICAL HISTORY Hx Cardiac Catheterization: Yes Hx Hysterectomy: Yes Hx Joint Replacement: Yes (bilateral knee replacement) Other/Comment: L breast lumpectomy, h/o breast CA, rcw pac - ANESTHESIA Hx Anesthesia Reactions: No Hx Malignant Hyperthermia: No Meds Allergies/Adverse Reactions: Allergies Allergy/AdvReac Type Severity Reaction Status Date / Time No Known Allergies Allergy Verified 06/18/16 20:18 - Medications Medications: Current Medications Acetaminophen (Tylenol 325mg Tab) 650 mg PO Q6H PRN; Protocol PRN Reason: Fever >100.4 F Albuterol/Ipratropium (Duoneb 3 Mg/0.5 Mg (3 Ml) Ud) 3 ml IH Q2H PRN; Protocol PRN Reason: Shortness of Breath Aspirin (Ecotrin) 81 mg PO 0800 [facility] PRN Reason: Protocol Last Admin: 06/21/16 08:04 Dose: 81 mg Doxycycline Hyclate (Doryx) 100 mg PO Q12 [facility] PRN Reason: Protocol Last Admin: 06/20/16 22:35 Dose: 100 mg Furosemide (Lasix) 40 mg IVP DAILY [facility] PRN Reason: Protocol Last Admin: 06/20/16 09:45 Dose: 40 mg Glimepiride (Amaryl) 4 mg PO BID [facility] PRN Reason: Protocol Last Admin: 06/20/16 17:08 Dose: 4 mg Hydralazine HCl (Apresoline) 50 mg PO BID PRN; Protocol PRN Reason: IF BP>160 Cefepime HCl (Maxipime 1gm) 100 mls @ 100 mls/hr IVPB Q8 [facility] PRN Reason: Protocol Last Admin: 06/21/16 05:26 Dose: 100 mls/hr Daptomycin 640 mg/ Sodium (Chloride) 100 mls @ 200 mls/hr IV Q24H [facility] PRN Reason: Protocol Stop: 06/30/16 13:31 Last Admin: 06/20/16 15:04 Dose: 200 mls/hr Ibuprofen (Motrin Tab) 600 mg PO BID PRN; Protocol PRN Reason: Pain, moderate (4-7) Insulin Human Regular (Humulin R Med) 0 units SC ACHS [facility] PRN Reason: Protocol Last Admin: 06/21/16 06:35 Dose: Not Given Isosorbide Mononitrate (Imdur) 60 mg PO 0630 [facility] PRN Reason: Protocol Last Admin: 06/21/16 06:34 Dose: 60 mg Lactic Acid (Lac-Hydrin 12% Lotion (225 G)) 0 gm EXT BID [facility] PRN Reason: Protocol Last Admin: 06/20/16 17:09 Dose: 1 applic Levalbuterol HCl (Xopenex) 1.25 mg IH [id number] PRN; Protocol PRN Reason: Shortness of Breath Metformin HCl (Glucophage) 1,000 mg PO 0800,1700 [facility] PRN Reason: Protocol Last Admin: 06/21/16 08:06 Dose: Not Given Nadolol (Corgard) 10 mg PO BID [facility] PRN Reason: Protocol Last Admin: 06/20/16 17:07 Dose: 10 mg Nicotine (Nicoderm Cq) 1 patch TD DAILY [facility] PRN Reason: Protocol Last Admin: 06/20/16 09:44 Dose: 1 patch Nystatin/Triamcinolone Acetonide (Nystatin/Triamcinolone Cream) 0 ea TOP BID [facility] PRN Reason: Protocol Last Admin: 06/20/16 17:09 Dose: 1 appl Pantoprazole Sodium (Protonix Ec Tab) 40 mg PO 0630 [facility] PRN Reason: Protocol Last Admin: 06/21/16 06:35 Dose: 40 mg Potassium Chloride (Klor-Con 10) 10 meq PO 0800 [facility] PRN Reason: Protocol Last Admin: 06/21/16 08:04 Dose: 10 meq Sitagliptin Phosphate (Januvia) 50 mg PO DAILY [facility] PRN Reason: Protocol Last Admin: 06/20/16 09:44 Dose: 50 mg Tiotropium [place] (Spiriva) 18 mcg IH DAILY [facility] PRN Reason: Protocol Last Admin: 06/20/16 09:44 Dose: 18 mcg Warfarin Sodium (Coumadin) 10 mg PO 1800 [facility] PRN Reason: Protocol Last Admin: 06/20/16 17:09 Dose: 10 mg Physical Exam - Constitutional Appears: Well, Non-toxic, No Acute Distress - Extremities Exam Additional comments: VASC: Non-palpable pedal pulses due to nonpittng edema, CFT < 3 sec to all digis , TG wnl NEURO: grossly diminished DERM: resolved fissures, no open wounds, no acute clinical signs of infection, no erythema, no hyperkeratotic lesions - Neurological Exam Neurological exam: Alert, Oriented x3 - Psychiatric Exam Psychiatric exam: Normal Affect, Normal Mood Results - Vital Signs Recent Vital Signs: Last Vital Signs Temp 98.8 F 06/19/16 10:00 Pulse 75 06/19/16 17:46 Resp 20 06/19/16 10:00 BP 132/72 06/20/16 09:45 Pulse Ox 100 06/19/16 10:00 - Labs Result Diagrams: 06/21/16 06:30 06/21/16 06:30 Labs: Laboratory Results - last 24 hr 06/20/16 06/20/16 06/20/16 05:21 11:02 16:10 WBC RBC Hgb Hct MCV MCH MCHC RDW Plt Count MPV Gran % Lymph % (Auto) [place] % (Auto) Eos % (Auto) Baso % (Auto) Gran # Lymph # [place] # Eos # Baso # PT INR Sodium Potassium Chloride Carbon Dioxide Anion Gap BUN Creatinine Est GFR ( Amer) Est GFR (Non-Af Amer) POC Glucose (mg/dL) 136 H 202 H 131 H Random Glucose Calcium Magnesium Total Bilirubin AST ALT Alkaline Phosphatase Total Protein Albumin Globulin Albumin/Globulin Ratio 06/20/16 06/21/16 06/21/16 21:19 01:29 04:57 WBC RBC Hgb Hct MCV MCH MCHC RDW Plt Count MPV Gran % Lymph % (Auto) [place] % (Auto) Eos % (Auto) Baso % (Auto) Gran # Lymph # [place] # Eos # Baso # PT INR Sodium Potassium Chloride Carbon Dioxide Anion Gap BUN Creatinine Est GFR ( Amer) Est GFR (Non-Af Amer) POC Glucose (mg/dL) 95 90 106 Random Glucose Calcium Magnesium Total Bilirubin AST ALT Alkaline Phosphatase Total Protein Albumin Globulin Albumin/Globulin Ratio 06/21/16 06:30 WBC 3.9 L RBC 3.34 L Hgb 9.1 L Hct 28.9 L MCV 86.5 MCH 27.2 MCHC 31.5 RDW 15.5 H Plt Count 150 MPV 9.4 Gran % 63.0 Lymph % (Auto) 23.2 [place] % (Auto) 10.2 H Eos % (Auto) 3.3 Baso % (Auto) 0.3 Gran # 2.47 Lymph # 0.9 L [place] # 0.4 Eos # 0.1 Baso # 0.01 PT 35.6 H* INR 3.30 H Sodium 139 Potassium 4.2 Chloride 103 Carbon Dioxide 28 Anion Gap 12 BUN 52 H Creatinine 0.9 Est GFR ( Amer) > 60 Est GFR (Non-Af Amer) > 60 POC Glucose (mg/dL) Random Glucose 110 Calcium 9.3 Magnesium 1.8 Total Bilirubin 0.3 AST 31 ALT 20 Alkaline Phosphatase 58 Total Protein 6.9 Albumin 3.7 Globulin 3.1 Albumin/Globulin Ratio 1.2 Assessment & Plan - Assessment and Plan (Free Text) Assessment: 70 y/o female seen at bedside for resolved heel fissures bilaterally. Plan: Patient evaluated & treated with attending Dr. Henriquez. Labs and chart reviewed. Continue applying Lac-hydrin daily. Continue offloading boots while patient remains in bed Podiatry will continue to monitor while patient remains in house - Date & Time Date: 06/21/16 Time: 07:55 <Deric Henriquez - Last Filed: 06/24/16 12:19> Meds - Medications Medications: Current Medications Acetaminophen (Tylenol 325mg Tab) 650 mg PO Q6H PRN; Protocol PRN Reason: Fever >100.4 F Albuterol/Ipratropium (Duoneb 3 Mg/0.5 Mg (3 Ml) Ud) 3 ml IH Q2H PRN; Protocol PRN Reason: Shortness of Breath Aspirin (Ecotrin) 81 mg PO 0800 [facility] PRN Reason: Protocol Last Admin: 06/24/16 07:54 Dose: 81 mg Doxycycline Hyclate (Doryx) 100 mg PO Q12 [facility] PRN Reason: Protocol Last Admin: 06/24/16 09:39 Dose: 100 mg Furosemide (Lasix) 40 mg PO DAILY [facility] Last Admin: 06/24/16 09:39 Dose: 40 mg Glimepiride (Amaryl) 4 mg PO BID [facility] PRN Reason: Protocol Last Admin: 06/24/16 09:37 Dose: Not Given Hydralazine HCl (Apresoline) 50 mg PO BID PRN; Protocol PRN Reason: IF BP>160 Daptomycin 640 mg/ Sodium (Chloride) 100 mls @ 200 mls/hr IV 0600 [facility] PRN Reason: Protocol Stop: 07/02/16 06:01 Last Admin: 06/24/16 05:07 Dose: 200 mls/hr Ibuprofen (Motrin Tab) 600 mg PO BID PRN; Protocol PRN Reason: Pain, moderate (4-7) Last Admin: 06/22/16 14:25 Dose: 600 mg Insulin Human Regular (Humulin R Med) 0 units SC ACHS [facility] PRN Reason: Protocol Last Admin: 06/24/16 12:10 Dose: Not Given Isosorbide Mononitrate (Imdur) 60 mg PO 0630 [facility] PRN Reason: Protocol Last Admin: 06/24/16 07:55 Dose: Not Given Lactic Acid (Lac-Hydrin 12% Lotion (225 G)) 0 gm EXT BID [facility] PRN Reason: Protocol Last Admin: 06/24/16 09:39 Dose: 1 applic Levalbuterol HCl (Xopenex) 1.25 mg IH [id number] PRN; Protocol PRN Reason: Shortness of Breath Metformin HCl (Glucophage) 1,000 mg PO 0800,1700 [facility] PRN Reason: Protocol Last Admin: 06/24/16 07:54 Dose: 1,000 mg Nadolol (Corgard) 10 mg PO BID [facility] PRN Reason: Protocol Last Admin: 06/23/16 17:29 Dose: 10 mg Nicotine (Nicoderm Cq) 1 patch TD DAILY [facility] PRN Reason: Protocol Last Admin: 06/24/16 09:40 Dose: 1 patch Nystatin/Triamcinolone Acetonide (Nystatin/Triamcinolone Cream) 0 ea TOP BID [facility] PRN Reason: Protocol Last Admin: 06/24/16 09:40 Dose: 1 appl Pantoprazole Sodium (Protonix Ec Tab) 40 mg PO 0630 [facility] PRN Reason: Protocol Last Admin: 06/24/16 07:56 Dose: Not Given Potassium Chloride (Klor-Con 10) 10 meq PO 0800 [facility] PRN Reason: Protocol Last Admin: 06/24/16 07:55 Dose: 10 meq Sitagliptin Phosphate (Januvia) 50 mg PO DAILY [facility] PRN Reason: Protocol Last Admin: 06/24/16 09:39 Dose: 50 mg Tiotropium [place] (Spiriva) 18 mcg IH DAILY [facility] PRN Reason: Protocol Last Admin: 06/24/16 09:40 Dose: 18 mcg Warfarin Sodium (Coumadin) 1 mg PO 1800 [facility] PRN Reason: Protocol Last Admin: 06/23/16 17:30 Dose: 1 mg Results - Vital Signs Recent Vital Signs: Last Vital Signs Temp 97.4 F L 06/24/16 10:00 Pulse 84 06/24/16 10:00 Resp 20 06/24/16 10:00 BP 148/83 06/24/16 10:00 Pulse Ox 97 06/24/16 10:00 - Labs Result Diagrams: 06/24/16 11:05 06/24/16 11:05 Labs: Laboratory Results - last 24 hr 06/23/16 06/23/16 06/24/16 16:37 21:43 04:32 WBC RBC Hgb Hct MCV MCH MCHC RDW Plt Count MPV Gran % Lymph % (Auto) [place] % (Auto) Eos % (Auto) Baso % (Auto) Gran # Lymph # [place] # Eos # Baso # PT INR APTT Sodium Potassium Chloride Carbon Dioxide Anion Gap BUN Creatinine Est GFR ( Amer) Est GFR (Non-Af Amer) POC Glucose (mg/dL) 169 H 174 H 72 Random Glucose Calcium Total Bilirubin AST ALT Alkaline Phosphatase Total Protein Albumin Globulin Albumin/Globulin Ratio 06/24/16 11:05 WBC 6.9 D RBC 3.21 L Hgb 8.8 L Hct 27.8 L MCV 86.6 MCH 27.4 MCHC 31.7 RDW 15.4 H Plt Count 222 MPV 9.7 Gran % 71.6 H Lymph % (Auto) 20.6 L [place] % (Auto) 5.8 Eos % (Auto) 1.7 Baso % (Auto) 0.3 Gran # 4.93 Lymph # 1.4 [place] # 0.4 Eos # 0.1 Baso # 0.02 PT 16.0 H INR 1.48 H APTT 31.7 H Sodium 143 Potassium 4.5 Chloride 105 Carbon Dioxide 26 Anion Gap 17 BUN 46 H Creatinine 0.9 Est GFR ( Amer) > 60 Est GFR (Non-Af Amer) > 60 POC Glucose (mg/dL) Random Glucose 180 H Calcium 9.6 Total Bilirubin 0.4 AST 24 ALT 24 Alkaline Phosphatase 61 Total Protein 7.1 Albumin 3.9 Globulin 3.2 Albumin/Globulin Ratio 1.2 Attending/Attestation - Attestation I have personally seen and examined this patient.: Yes I have fully participated in the care of the patient.: Yes I have reviewed all pertinent clinical information: Yes
[2016-06-21] MEDS: Ammonium Lactate 12% Lotion (225 g) EXT SCH ×2 (10:46→17:32)
[2016-06-21] MEDS: Tiotropium 18 mcg Cap For Inhalation IH SCH (10:47)
[2016-06-21] MEDS: Nystatin-Triamcinolone Cream(30 gm) TOP SCH ×2 (10:47→17:33)
--- NOTE | 2016-06-21 15:44 | CP.PCM.PN ---
Subjective - Date & Time of Evaluation Date of Evaluation: 06/21/16 Time of Evaluation: 11:40 - Subjective Subjective: Comfortable in bed, not in distress, afebrile overnight. Objective - Vital Signs/Intake and Output Vital Signs (last 24 hours): Temp Pulse Resp BP Pulse Ox 98.8 F 75 20 132/72 100 06/19/16 10:00 06/19/16 17:46 06/19/16 10:00 06/20/16 09:45 06/19/16 10:00 Intake and Output: 06/21/16 06/21/16 06:59 18:59 Intake Total 520 Output Total 400 Balance 120 - Medications Medications: Current Medications Acetaminophen (Tylenol 325mg Tab) 650 mg PO Q6H PRN; Protocol PRN Reason: Fever >100.4 F Albuterol/Ipratropium (Duoneb 3 Mg/0.5 Mg (3 Ml) Ud) 3 ml IH Q2H PRN; Protocol PRN Reason: Shortness of Breath Aspirin (Ecotrin) 81 mg PO 0800 [facility] PRN Reason: Protocol Last Admin: 06/20/16 08:20 Dose: 81 mg Doxycycline Hyclate (Doryx) 100 mg PO Q12 [facility] PRN Reason: Protocol Last Admin: 06/20/16 22:35 Dose: 100 mg Furosemide (Lasix) 40 mg IVP DAILY [facility] PRN Reason: Protocol Last Admin: 06/20/16 09:45 Dose: 40 mg Glimepiride (Amaryl) 4 mg PO BID [facility] PRN Reason: Protocol Last Admin: 06/20/16 17:08 Dose: 4 mg Hydralazine HCl (Apresoline) 50 mg PO BID PRN; Protocol PRN Reason: IF BP>160 Cefepime HCl (Maxipime 1gm) 100 mls @ 100 mls/hr IVPB Q8 [facility] PRN Reason: Protocol Last Admin: 06/21/16 05:26 Dose: 100 mls/hr Daptomycin 640 mg/ Sodium (Chloride) 100 mls @ 200 mls/hr IV Q24H [facility] PRN Reason: Protocol Stop: 06/30/16 13:31 Last Admin: 06/20/16 15:04 Dose: 200 mls/hr Ibuprofen (Motrin Tab) 600 mg PO BID PRN; Protocol PRN Reason: Pain, moderate (4-7) Insulin Human Regular (Humulin R Med) 0 units SC ACHS [facility] PRN Reason: Protocol Last Admin: 06/21/16 06:35 Dose: Not Given Isosorbide Mononitrate (Imdur) 60 mg PO 0630 [facility] PRN Reason: Protocol Last Admin: 06/21/16 06:34 Dose: 60 mg Lactic Acid (Lac-Hydrin 12% Lotion (225 G)) 0 gm EXT BID [facility] PRN Reason: Protocol Last Admin: 06/20/16 17:09 Dose: 1 applic Levalbuterol HCl (Xopenex) 1.25 mg IH [id number] PRN; Protocol PRN Reason: Shortness of Breath Metformin HCl (Glucophage) 1,000 mg PO 0800,1700 [facility] PRN Reason: Protocol Last Admin: 06/20/16 17:08 Dose: 1,000 mg Nadolol (Corgard) 10 mg PO BID [facility] PRN Reason: Protocol Last Admin: 06/20/16 17:07 Dose: 10 mg Nicotine (Nicoderm Cq) 1 patch TD DAILY [facility] PRN Reason: Protocol Last Admin: 06/20/16 09:44 Dose: 1 patch Nystatin/Triamcinolone Acetonide (Nystatin/Triamcinolone Cream) 0 ea TOP BID [facility] PRN Reason: Protocol Last Admin: 06/20/16 17:09 Dose: 1 appl Pantoprazole Sodium (Protonix Ec Tab) 40 mg PO 0630 [facility] PRN Reason: Protocol Last Admin: 06/21/16 06:35 Dose: 40 mg Potassium Chloride (Klor-Con 10) 10 meq PO 0800 [facility] PRN Reason: Protocol Last Admin: 06/20/16 08:21 Dose: 10 meq Sitagliptin Phosphate (Januvia) 50 mg PO DAILY [facility] PRN Reason: Protocol Last Admin: 06/20/16 09:44 Dose: 50 mg Tiotropium [place] (Spiriva) 18 mcg IH DAILY [facility] PRN Reason: Protocol Last Admin: 06/20/16 09:44 Dose: 18 mcg Warfarin Sodium (Coumadin) 10 mg PO 1800 [facility] PRN Reason: Protocol Last Admin: 06/20/16 17:09 Dose: 10 mg - Labs Labs: 06/21/16 06:30 06/21/16 06:30 PT 35.6 Seconds (9.9-11.8) H* 06/21/16 06:30 INR 3.30 (0.93-1.08) H 06/21/16 06:30 - Constitutional Appears: Non-toxic, No Acute Distress - Head Exam Head Exam: NORMAL INSPECTION - ENT Exam ENT Exam: Mucous Membranes Moist - Neck Exam Neck Exam: absent: Lymphadenopathy, Meningismus - Respiratory Exam Respiratory Exam: Decreased Breath Sounds Additional comments: right sided port on the anterior chest wall in place, site intact - Cardiovascular Exam Cardiovascular Exam: +S1, +S2 - GI/Abdominal Exam GI & Abdominal Exam: Soft. absent: Tenderness Assessment and Plan - Assessment and Plan (Free Text) Plan: Assessment Sepsis with acute hypoxic respiratory failure secondary to left-sided healthcare -associated pneumonia with possible gram positive cocci and/or gram negative bacilli as well as persistent methicillin-resistant coagulase negative staph bacteremia, R/O port infection history of Group G Strep bacteremia history of E. coli UTI history of healthcare-associated pneumonia acute renal failure obesity with BMI 38 CAD GERD arthritis history of bilateral knee replacements chronic CHF COPD DM history of breast CA History of Strep bovis bacteremia (2012) S/P Port-a-cath placement Plan on Cefepime and Doxycycline day 4; reviewed CXR; since PCT is low, will d/c Cefepime and continue Doxycycline to complete a 4-7 day course we have d/c'ed Vancomycin because of the change in renal function and have switched to Daptomycin (day 3 since 1st negative blood cx on 06/19) follow up 2D echo - port may need to be removed because of the bacteremia Will continue to monitor clinical response
--- NOTE | 2016-06-21 16:18 | PN ---
DATE: 06/21/2016 The patient is a 70-year-old, seen and examined, lying in bed, still has cough and congestion. No le g swelling, no nausea, vomiting, no diarrhea. Eating and tolerating. PHYSICAL EXAMINATION: VITAL SIGNS: She is afebrile. Pulse 75, respirations 20, blood pressure 112/44. LUNGS: Bilateral fair airflow. Soft crackle in the upper lung region. HEART: S1, S2 audible. Irregular rate control. ABDOMEN: Soft, obese, nontender, no rebound, no guarding. NEUROLOGIC: She is awake and alert, communicative, moves all extremities. EXTREMITIES: Bilateral legs, no edema. LABORATORY: WBC 3.9, hemoglobin 9.1, hematocrit 28.9, platelets of 150. PT 35.6, INR 3.30. Lace Roller ry: Sodium 139, potassium 4.2, chloride 103, CO2 of 28, BUN 52, creatinine 0.9, blood sugar of 192. ASSESSMENT: 1. Community-acquired pneumonia. 2. Improved congestive heart failure exacerbation. 3. Chronic atrial fibrillation. 4. Chronic obstructive pulmonary disease. 5. Chronic anemia. 6. 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 7. Non-insulin dependent diabetes. PLAN: Lately her blood pressure has been running low. Her medication is adjusted. Will continue he r on nadolol. Will give her 2 mg of warfarin. She is currently on daptomycin, doxycycline, continue nebulizer treatment. She is on aspirin 81 daily. We will monitor her blood sugar. She is on Januv ia 50 daily. Continue her on Lasix. Continue her on Protonix. Will reevaluate the patient in a.m. Edwige Kirby MD cc: [phone] TT: 06/21/2016 16:16:59 Confirmation # [id number] Dictation # [id number] bridget
--- NOTE | 2016-06-21 20:07 | PN ---
DATE: 06/21/2016 LOCATION: Room 313, bed 1. REASON FOR CONSULTATION: Coronary artery disease, chronic atrial fibrillation, chronic obstructive p ulmonary disease, hypertension. HISTORY OF PRESENT ILLNESS: The patient is a 70-year-old morbidly obese female with a past medical h istory significant for tobacco abuse. The patient continues to still smoke, hypertension, diabetes, hyperlipidemia, chronic atrial fibrillation, coronary artery disease, who was admitted to the medical floor with shortness of breath, cough and congestion. The patient was treated on the medical floor. She improved and now she is on the transitional care unit for deconditioning and physical therapy. The patient was also found to have anemia and got blood transfusion. The patient has a history of A V malformation of the stomach. The patient is getting physical therapy. Denies chest pain, shortnes s of breath or palpitations. PHYSICAL EXAMINATION: VITAL SIGNS: Blood pressure 119/52, respirations 18, pulse 67, temperature 97.9. HEAD: Normocephalic. EYES: Pupils normal. Conjunctivae slightly pale. NECK: JVP low. Carotid equal. THORAX: AP diameter normal. LUNGS: No significant rales. CARDIOVASCULAR: S1, S2, ejection systolic murmur, no rub. ABDOMEN: Soft, nontender, no organomegaly. Bowel sounds normal. EXTREMITIES: No clubbing, no cyanosis. LABORATORY DATA: WBC 3.9, hemoglobin 9.1, hematocrit 28.9, and platelets 150. Sodium 139, potassium 4.0, BUN 52, creatinine 0.9, random glucose 110. AST, ALT, total protein and albumin normal. DIAGNOSES: Chronic atrial fibrillation, diabetes mellitus, hypertension, hyperlipidemia, obesity, 1- vessel coronary artery disease, totally occluded right coronary artery, getting collaterals from the left anterior descending coronary artery, moderate aortic stenosis, chronic obstructive pulmonary dis ease, pulmonary hypertension, severe anemia, status post blood transfusions, history of arteriovenous malformation in the stomach and deconditioning. PLAN: Continue physical therapy. Continue Corgard 10 mg b.i.d., warfarin 2 mg daily, daptomycin 640 mg IV q.24 hours, Doryx 100 mg p.o. q.12 hours, DuoNeb hand nebulizer therapy, aspirin 81 mg daily, isosorbide mono 60 mg p.o. daily, Januvia 50 mg p.o. daily, potassium chloride 10 mEq p.o. daily, Las ix 40 mg IV daily, Protonix 40 daily, Xopenex hand nebulizer therapy p.r.n., Amaryl 4 mg b.i.d., metf ormin 1000 mg b.i.d. Today's prothrombin time was 35.6 and INR 3.30. Will hold Coumadin today and f ollow PT/INR tomorrow. Will also discontinue IV Lasix and put Lasix 40 mg daily and will follow with you. Brianna Deng MD cc: [phone] TT: 06/21/2016 20:07:06 Confirmation # [id number] Dictation # [id number] dn
[2016-06-22] MEDS: Pantoprazole 40 mg EC Tab PO SCH (05:35)
[2016-06-22] MEDS: Insulin Reg-MEDIUM-Coverage SC SCH ×4 (06:33→22:05)
[2016-06-22 06:55] LABS: INR 4.31 (0.93-1.08)
[2016-06-22] MEDS: Potassium Chloride 10 mEq ER Tab PO SCH (08:23)
--- NOTE | 2016-06-22 09:59 | PN ---
DATE: 06/22/2016 The patient is in room 313, bed 1. REASON FOR CONSULTATION AND FOLLOWUP: Coronary artery disease, chronic atrial fibrillation, chronic obstructive pulmonary disease, hypertension. HISTORY OF PRESENT ILLNESS: The patient is a 70-year-old morbidly obese female with past medical his tory significant for tobacco abuse. The patient continues to still smoke, hypertension, diabetes, hy perlipidemia, chronic atrial fibrillation, coronary artery disease, was admitted to medical floor wit h shortness of breath, cough and congestion. The patient, with treatment, got better. Now she is in transitional care unit for deconditioning and physical therapy. The patient denies any cardiac symp toms at present. The patient was found to have anemia and got blood transfusion. The patient has hi story of AV malformation of the stomach. The patient continues physical therapy without any chest pa in. PHYSICAL EXAMINATION: VITAL SIGNS: Blood pressure 119/52, respirations 18, pulse 67, temperature 97.9. HEAD: Normocephalic. EYES: Pupils normal. Conjunctivae slightly pale. NECK: JVP low. Carotid equal. THORAX: AP diameter normal. LUNGS: Scattered wheezing. CARDIOVASCULAR: S1 and S2. Systolic murmur grade III/. No rub. ABDOMEN: Protuberant, no organomegaly. EXTREMITIES: No clubbing, no cyanosis. LABORATORY DATA: WBC 3.9, hemoglobin 9.1, hematocrit 28.9, platelets 150. Sodium 139, potassium 4.2 , BUN 52, creatinine 0.9, sugar 178. Calcium, magnesium, total bilirubin normal. Total protein, alb umin normal. DIAGNOSES: Chronic atrial fibrillation, diabetes mellitus, hypertension, hyperlipidemia, obesity, 1- vessel coronary artery disease, totally occluded right coronary artery, getting collateral from the l eft anterior descending coronary artery, moderate aortic stenosis, chronic obstructive pulmonary dise ase, pulmonary hypertension, severe anemia, status post blood transfusions, history of arteriovenous malformation in the stomach and deconditioning. PLAN: Told patient again to stop smoking and we will continue physical therapy. Continue Coreg 10 m g b.i.d. We will hold Coumadin because today's prothrombin time is 46.6 and INR 4.31 and will repeat protime tomorrow. Daptomycin 640 mg IV daily, Doryx 100 mg p.o. q. 12 hours, aspirin 81 mg p.o. debo ly, isosorbide mono 60 daily, Januvia 50 daily, potassium 10 mEq daily, furosemide 40 p.o. daily, Pro tonix 40 daily, Xopenex hand nebulizer therapy, Amaryl 4 mg b.i.d., metformin 1000 mg b.i.d. We will continue to follow with you. Brianna Deng MD cc: [phone] TT: 06/22/2016 09:59:21 Confirmation # [id number] Dictation # [id number] en
[2016-06-22] MEDS: Ammonium Lactate 12% Lotion (225 g) EXT SCH ×2 (10:28→17:57)
--- NOTE | 2016-06-22 10:28 | PN ---
DATE: 06/22/2016 The patient is in bed, was seen earlier this morning. PHYSICAL EXAMINATION: VITAL SIGNS: Temperature is 97, blood pressure is 119/50, respiratory rate of 18. HEENT: Unremarkable. NECK: Supple. LUNGS: Decreased breath sounds. HEART: Normal S1, S2. ABDOMEN: Soft. LABORATORY EXAMINATION: Reveals the blood cultures are negative. White count 3.9, platelets of 150. BUN of 52, creatinine of 0.9. Microbiology reveals the blood cultures are negative. ASSESSMENT AND PLAN: A 70-year-old with sepsis with acute hypoxic respiratory failure secondary to l eft-sided healthcare associated pneumonia, possible gram-positive cocci, possible gram-negative carolyn a s well as methicillin-resistant coag-negative Staph, rule out a port infection with a history of grou p G Strep bacteremia, history of Escherichia coli urinary tract infection, history of healthcare-asso ciated pneumonia, obesity with a body mass index of 38, coronary artery disease, hypertension, gastro esophageal reflux disease and arthritis and bilateral knee replacement in a diabetic with chronic obs tructive lung disease, congestive heart failure, chronic obstructive pulmonary disease and diabetes a nd on cefepime and doxycycline and treated. Now on day #5 of doxycycline. Would complete 4-7 days. The cefepime was discontinued. Review of the orders reveals the patient is on daptomycin and doxycy camejo. The repeat cultures from the are negative. The initial cultures, coag-negative Staph as noted. The repeat cultures from the were positive. However, the cultures from the 30th are ne gative. Today is day #4 of daptomycin. Benjamin Obrien MD cc: [phone] TT: 06/22/2016 10:27:43 Confirmation # [id number] Dictation # [id number] en
[2016-06-22] MEDS: Nystatin-Triamcinolone Cream(30 gm) TOP SCH ×2 (10:29→17:57)
[2016-06-22] MEDS: Tiotropium 18 mcg Cap For Inhalation IH SCH (10:29)
[2016-06-23] MEDS: Pantoprazole 40 mg EC Tab PO SCH (06:36)
[2016-06-23] MEDS: Insulin Reg-MEDIUM-Coverage SC SCH ×4 (07:44→23:58)
[2016-06-23 08:11] LABS: INR 2.13 (0.93-1.08)
[2016-06-23] MEDS: Potassium Chloride 10 mEq ER Tab PO SCH (08:21)
[2016-06-23] MEDS: Ammonium Lactate 12% Lotion (225 g) EXT SCH ×2 (09:45→17:32)
[2016-06-23] MEDS: Nystatin-Triamcinolone Cream(30 gm) TOP SCH ×2 (09:46→17:33)
[2016-06-23] MEDS: Tiotropium 18 mcg Cap For Inhalation IH SCH (09:46)
--- NOTE | 2016-06-23 12:16 | PN ---
DATE: 06/23/2016 The patient in room 313, bed 1. REASON FOR CONSULTATION AND FOLLOWUP: Coronary artery disease, chronic atrial fibrillation, chronic obstructive pulmonary disease, hypertension. HISTORY OF PRESENT ILLNESS: The patient is a 70-year-old morbidly obese female with past medical his tory significant for tobacco abuse. The patient continues to still smoke, hypertension, diabetes, hy perlipidemia, chronic atrial fibrillation, coronary artery disease. Was admitted to medical floor wi th shortness of breath, cough and congestion. The patient had left-sided healthcare related pneumoni a. The patient was treated and got better. Now, she is in transitional care unit where she is getti ng physical therapy. The patient denies any symptoms during physical therapy. The patient also has history of AV malformation stomach. The patient was found to have anemia and got blood transfusion. The patient has no chest pain at present. No palpitation. PHYSICAL EXAMINATION: VITAL SIGNS: Blood pressure 128/74, respirations 18, pulse 68, temperature 98.4. HEAD: Normocephalic. EYES: Pupils normal. Conjunctivae slightly pale. NECK: JVP low. Carotid equal. THORAX: AP diameter is normal. LUNGS: A few rales on the right base, otherwise lungs are clear. CARDIOVASCULAR: S1, S2, ejection systolic murmur grade III/. No rub. ABDOMEN: Soft, no organomegaly. Bowel sounds normal. EXTREMITIES: No clubbing, no cyanosis. LABORATORY DATA: WBC 3.9, hemoglobin 9.1, hematocrit 28.9, platelet 150, random sugar 68. Sodium 13 3, potassium 4.4, BUN 58, creatinine 1.4, random glucose 144, calcium 8.9, bilirubin 0.4. AST, ALT n ormal. Total protein 6.9, albumin 3.8. DIAGNOSES: Chronic atrial fibrillation, diabetes mellitus, hypertension, hyperlipidemia, obesity, on e vessel coronary artery disease, totally occluded right coronary artery, getting collateral from lef t anterior descending coronary artery; moderate aortic stenosis, chronic obstructive pulmonary diseas e, pulmonary hypertension, severe anemia, status post blood transfusion, history of arteriovenous mal formation stomach, deconditioning, respiratory tract infection, pneumonia. PLAN: The patient on Corgard 10 mg b.i.d. Today, patient's prothrombin time is 23.0 with INR 2.13. The patient was on warfarin 2 mg p.o. daily and her INR prothrombin time was elevated yesterday, so we will start today warfarin 1 mg daily. The patient on daptomycin ____ mg IV daily, Doryx 100 mg p. o. q.12 hours, aspirin 81 mg daily, isosorbide mono 60 mg p.o. daily, Januvia 50 mg p.o. daily, potas sium 10 mEq p.o. daily, furosemide 40 mg p.o. daily, Protonix 40 p.o. daily. We will follow with you. Brianna Deng MD cc: [phone] TT: 06/23/2016 12:15:27 Confirmation # [id number] Dictation # [id number] sn
--- NOTE | 2016-06-23 16:24 | CP.PCM.PN ---
Subjective - Date & Time of Evaluation Date of Evaluation: 06/23/16 Time of Evaluation: 10:40 - Subjective Subjective: Comfortable on a chair, not in distress, afebrile overnight, no pain over the port area on the chest, no diarrhea. Objective - Vital Signs/Intake and Output Vital Signs (last 24 hours): Temp Pulse Resp BP Pulse Ox 97.8 F 54 L 18 119/51 L 98 06/23/16 10:00 06/23/16 10:00 06/23/16 10:00 06/23/16 10:00 06/23/16 10:00 - Medications Medications: Current Medications Acetaminophen (Tylenol 325mg Tab) 650 mg PO Q6H PRN; Protocol PRN Reason: Fever >100.4 F Albuterol/Ipratropium (Duoneb 3 Mg/0.5 Mg (3 Ml) Ud) 3 ml IH Q2H PRN; Protocol PRN Reason: Shortness of Breath Aspirin (Ecotrin) 81 mg PO 0800 [facility] PRN Reason: Protocol Last Admin: 06/23/16 08:21 Dose: 81 mg Doxycycline Hyclate (Doryx) 100 mg PO Q12 [facility] PRN Reason: Protocol Last Admin: 06/23/16 09:44 Dose: 100 mg Furosemide (Lasix) 40 mg PO DAILY [facility] Last Admin: 06/23/16 09:45 Dose: 40 mg Glimepiride (Amaryl) 4 mg PO BID [facility] PRN Reason: Protocol Last Admin: 06/23/16 09:56 Dose: 4 mg Hydralazine HCl (Apresoline) 50 mg PO BID PRN; Protocol PRN Reason: IF BP>160 Daptomycin 640 mg/ Sodium (Chloride) 100 mls @ 200 mls/hr IV 0600 [facility] PRN Reason: Protocol Stop: 07/02/16 06:01 Last Admin: 06/23/16 06:33 Dose: 200 mls/hr Ibuprofen (Motrin Tab) 600 mg PO BID PRN; Protocol PRN Reason: Pain, moderate (4-7) Last Admin: 06/22/16 14:25 Dose: 600 mg Insulin Human Regular (Humulin R Med) 0 units SC ACHS [facility] PRN Reason: Protocol Last Admin: 06/23/16 12:25 Dose: 1 units Isosorbide Mononitrate (Imdur) 60 mg PO 0630 [facility] PRN Reason: Protocol Last Admin: 06/23/16 06:35 Dose: 60 mg Lactic Acid (Lac-Hydrin 12% Lotion (225 G)) 0 gm EXT BID [facility] PRN Reason: Protocol Last Admin: 06/23/16 09:45 Dose: 1 applic Levalbuterol HCl (Xopenex) 1.25 mg IH [id number] PRN; Protocol PRN Reason: Shortness of Breath Metformin HCl (Glucophage) 1,000 mg PO 0800,1700 [facility] PRN Reason: Protocol Last Admin: 06/23/16 08:21 Dose: 1,000 mg Nadolol (Corgard) 10 mg PO BID [facility] PRN Reason: Protocol Last Admin: 06/23/16 09:45 Dose: 10 mg Nicotine (Nicoderm Cq) 1 patch TD DAILY [facility] PRN Reason: Protocol Last Admin: 06/23/16 09:45 Dose: 1 patch Nystatin/Triamcinolone Acetonide (Nystatin/Triamcinolone Cream) 0 ea TOP BID [facility] PRN Reason: Protocol Last Admin: 06/23/16 09:46 Dose: 1 appl Pantoprazole Sodium (Protonix Ec Tab) 40 mg PO 0630 [facility] PRN Reason: Protocol Last Admin: 06/23/16 06:36 Dose: 40 mg Potassium Chloride (Klor-Con 10) 10 meq PO 0800 [facility] PRN Reason: Protocol Last Admin: 06/23/16 08:21 Dose: 10 meq Sitagliptin Phosphate (Januvia) 50 mg PO DAILY [facility] PRN Reason: Protocol Last Admin: 06/23/16 09:44 Dose: 50 mg Tiotropium [place] (Spiriva) 18 mcg IH DAILY [facility] PRN Reason: Protocol Last Admin: 06/23/16 09:46 Dose: 18 mcg Warfarin Sodium (Coumadin) 1 mg PO 1800 [facility] PRN Reason: Protocol - Labs Labs: 06/21/16 06:30 06/21/16 06:30 PT 23.0 Seconds (9.9-11.8) H 06/23/16 05:00 INR 2.13 (0.93-1.08) H 06/23/16 05:00 - Constitutional Appears: Non-toxic, No Acute Distress - Head Exam Head Exam: NORMAL INSPECTION - ENT Exam ENT Exam: Mucous Membranes Moist - Neck Exam Neck Exam: absent: Lymphadenopathy, Meningismus - Respiratory Exam Respiratory Exam: Decreased Breath Sounds Additional comments: right anterior chest wall port site clean and intact - Cardiovascular Exam Cardiovascular Exam: +S1, +S2 - GI/Abdominal Exam GI & Abdominal Exam: Soft. absent: Tenderness
--- NOTE | 2016-06-23 20:02 | PN ---
DATE: 06/23/2016 The patient is 70 years old, seen and examined, doing well. Complained of scanty cough. PHYSICAL EXAMINATION: VITAL SIGNS: She is afebrile, pulse 64, respirations 18, blood pressure 116/63. LUNGS: Bilateral fair airflow, no rhonchi or crackle. HEART: S1, S2 audible. No murmur. ABDOMEN: Soft, obese, nontender, no rebound, no guarding. NEUROLOGIC: She is awake and alert, communicative, ambulatory. LABORATORY: PT is 23.0, INR 2.13. Chemistry: Blood sugar is 68. ASSESSMENT AND PLAN: 1. Hospital-acquired pneumonia. 2. Chronic obstructive pulmonary disease exacerbation, improving. 3. Coronary artery disease. 4. Non-insulin dependent diabetes. 5. Hypertension. 6. Chronic anemia. PLAN: Dr. Palomino's notes reviewed and appreciated. In this hospitalization, she has coag negative st aph bacteremia, but her repeat cultures are negative. Will consult Dr. Glynn and get his opinion, because according to last discussion with him, we had decided to keep Port-A-Cath until she comes in again with bacteremia. Will discuss with patient and Dr. Glynn in a.m. for possible Port-A-Cath removal and then we will finalize if port has to be removed after discussing with the patient and anthony espinoza. For now will give just 1 mg of Coumadin today in case it has to be reversed. Edwige Kirby MD cc: [phone] TT: 06/23/2016 20:02:08 Confirmation # [id number] Dictation # [id number] jn
--- NOTE | 2016-06-23 22:53 | CP.PCM.CON ---
<Zoya Gutierrez - Last Filed: 06/24/16 08:27> History of Present Illness - History of Present Illness History of Present Illness: General Surgery Consult note for Dr. Glynn Consult reason: infected portacath Pt is a 70F with extensive PMH including pulmonary HTN, strep bovis bacteremia, group B strep bacteremia, severe obesity, NIDDM, CAD, CHF who was recently [place] [facility] upper lobe pneumonia with IV antibiotics. She was recently transferred to the TCU after being stabilized for continue IV antibiotic administration. Dr. Glynn is consulted due to previous plans to D/ C her chronic portacath if she developed repeat bacteremia. Pt currently reports persistent cough improved since admit to hospital, BL lower extremity edema worse than baseline, and tingling in her fingers BL. Patient denies any SOB, chest pain, fevers, chills, nausea, vomiting, diarrhea, dysuria, hematuria, increased urinary frequency, or any other symptoms. Port is currently utilized for IV access and functioning well with no complications. PMH: HTN, HLD, NIDDM, obeity, strep bovis bacteremia, group B strep bacteremia, CAD, CHF, carotid artery stenosis with 100% block in R CA, L breast cancer, chronic anemia, GERD, congestive gastropathy PSH: BL knee replacements, L breast lumpectomy, removal of nasal skin lesion ALL: NKDA Social: Tob: 1PPD for 46 years, last smoked a month ago. Denies ETOH and drug use. Review of Systems - Review of Systems All systems: reviewed and no additional remarkable complaints except - Constitutional Constitutional: As Per HPI - EENT Nose/Mouth/Throat: absent: Neck Pain - Cardiovascular Cardiovascular: Edema. absent: Chest Pain, Dyspnea, Palpitations - Respiratory Respiratory: As Per HPI. absent: Hemoptysis - Gastrointestinal Gastrointestinal: As Per HPI. absent: Constipation - Genitourinary Genitourinary: As Per HPI, Urinary Incontinence - Musculoskeletal Musculoskeletal: Tingling (in the fingers BL). absent: Numbness - Integumentary Integumentary: absent: Erythema, Swelling - Neurological Neurological: As Per HPI. absent: Numbness - Endocrine Endocrine: absent: Palpitations, Polyuria Past Patient History - Infectious Disease Hx of Infectious Diseases: None - Tetanus Immunizations Tetanus Immunization: Unknown - Past Medical History & Family History Past Medical History?: Yes Past Family History: Reviewed and not pertinent - Past Social History Smoking Status: Current Some Days Smoker Alcohol: None Drugs: Denies - CARDIAC Hx Cardiac Disorders: Yes (CAD, Afib) Hx Congestive Heart Failure: Yes Hx Hypertension: Yes - PULMONARY Hx Chronic Obstructive Pulmonary Disease (COPD): Yes (+active smoker; +home O2) - NEUROLOGICAL Hx Neurological Disorder: Yes - HEENT Hx HEENT Problems: No - RENAL Hx Renal Failure: Yes - ENDOCRINE/METABOLIC Hx Diabetes Mellitus Type 2: Yes Hx Hypothyroidism: Yes - HEMATOLOGICAL/ONCOLOGICAL Hx Blood Transfusions: No Hx Blood Transfusion Reaction: No - INTEGUMENTARY Hx Dermatological Problems: Yes Other/Comment: +3 pitting edema ble redness dry skin, toenail was removed to b/ l great toes " yrs ago". small red area to nose - MUSCULOSKELETAL/RHEUMATOLOGICAL Hx Falls: No - GASTROINTESTINAL Hx Gastrointestinal Disorders: (obese/reflux/gib) - GENITOURINARY/GYNECOLOGICAL Hx Reproductive Disorders: Yes (breast ca/ hyst) - PSYCHIATRIC Hx Substance Use: Yes - SURGICAL HISTORY Hx Cardiac Catheterization: Yes Hx Hysterectomy: Yes Hx Joint Replacement: Yes (bilateral knee replacement) Other/Comment: L breast lumpectomy, h/o breast CA, rcw pac - ANESTHESIA Hx Anesthesia Reactions: No Hx Malignant Hyperthermia: No Meds Allergies/Adverse Reactions: Allergies Allergy/AdvReac Type Severity Reaction Status Date / Time No Known Allergies Allergy Verified 06/18/16 20:18 - Medications Medications: Current Medications Acetaminophen (Tylenol 325mg Tab) 650 mg PO Q6H PRN; Protocol PRN Reason: Fever >100.4 F Albuterol/Ipratropium (Duoneb 3 Mg/0.5 Mg (3 Ml) Ud) 3 ml IH Q2H PRN; Protocol PRN Reason: Shortness of Breath Aspirin (Ecotrin) 81 mg PO 0800 [facility] PRN Reason: Protocol Last Admin: 06/23/16 08:21 Dose: 81 mg Doxycycline Hyclate (Doryx) 100 mg PO Q12 [facility] PRN Reason: Protocol Last Admin: 06/23/16 21:36 Dose: 100 mg Furosemide (Lasix) 40 mg PO DAILY [facility] Last Admin: 06/23/16 09:45 Dose: 40 mg Glimepiride (Amaryl) 4 mg PO BID [facility] PRN Reason: Protocol Last Admin: 06/23/16 17:28 Dose: 4 mg Hydralazine HCl (Apresoline) 50 mg PO BID PRN; Protocol PRN Reason: IF BP>160 Daptomycin 640 mg/ Sodium (Chloride) 100 mls @ 200 mls/hr IV 0600 [facility] PRN Reason: Protocol Stop: 07/02/16 06:01 Last Admin: 06/23/16 06:33 Dose: 200 mls/hr Ibuprofen (Motrin Tab) 600 mg PO BID PRN; Protocol PRN Reason: Pain, moderate (4-7) Last Admin: 06/22/16 14:25 Dose: 600 mg Insulin Human Regular (Humulin R Med) 0 units SC ACHS [facility] PRN Reason: Protocol Last Admin: 06/23/16 16:45 Dose: 1 units Isosorbide Mononitrate (Imdur) 60 mg PO 0630 [facility] PRN Reason: Protocol Last Admin: 06/23/16 06:35 Dose: 60 mg Lactic Acid (Lac-Hydrin 12% Lotion (225 G)) 0 gm EXT BID [facility] PRN Reason: Protocol Last Admin: 06/23/16 17:32 Dose: 1 applic Levalbuterol HCl (Xopenex) 1.25 mg IH [id number] PRN; Protocol PRN Reason: Shortness of Breath Metformin HCl (Glucophage) 1,000 mg PO 0800,1700 [facility] PRN Reason: Protocol Last Admin: 06/23/16 17:30 Dose: 1,000 mg Nadolol (Corgard) 10 mg PO BID [facility] PRN Reason: Protocol Last Admin: 06/23/16 17:29 Dose: 10 mg Nicotine (Nicoderm Cq) 1 patch TD DAILY [facility] PRN Reason: Protocol Last Admin: 06/23/16 09:45 Dose: 1 patch Nystatin/Triamcinolone Acetonide (Nystatin/Triamcinolone Cream) 0 ea TOP BID [facility] PRN Reason: Protocol Last Admin: 06/23/16 17:33 Dose: Not Given Pantoprazole Sodium (Protonix Ec Tab) 40 mg PO 0630 [facility] PRN Reason: Protocol Last Admin: 06/23/16 06:36 Dose: 40 mg Potassium Chloride (Klor-Con 10) 10 meq PO 0800 [facility] PRN Reason: Protocol Last Admin: 06/23/16 08:21 Dose: 10 meq Sitagliptin Phosphate (Januvia) 50 mg PO DAILY [facility] PRN Reason: Protocol Last Admin: 06/23/16 09:44 Dose: 50 mg Tiotropium [place] (Spiriva) 18 mcg IH DAILY [facility] PRN Reason: Protocol Last Admin: 06/23/16 09:46 Dose: 18 mcg Warfarin Sodium (Coumadin) 1 mg PO 1800 [facility] PRN Reason: Protocol Last Admin: 06/23/16 17:30 Dose: 1 mg Physical Exam - Constitutional Appears: Non-toxic, No Acute Distress - Head Exam Head Exam: ATRAUMATIC, NORMOCEPHALIC - Eye Exam Eye Exam: Normal appearance. absent: Scleral icterus - ENT Exam ENT Exam: Mucous Membranes Moist, Normal Oropharynx - Respiratory Exam Respiratory Exam: Prolonged Expiratory Phase, Wheezes, NORMAL BREATHING PATTERN. absent: Accessory Muscle Use Additional comments: BL - Cardiovascular Exam Cardiovascular Exam: RRR, +S1, +S2, Systolic Murmur (V/ harsh sytolic murmur) - GI/Abdominal Exam GI & Abdominal Exam: Soft. absent: Distended, Tenderness - Extremities Exam Extremities exam: Positive for: pedal edema (2+ pitting edema from the foot to the knee), tenderness (anterior lower leg). Negative for: calf tenderness - Neurological Exam Neurological exam: Alert, Oriented x3 - Psychiatric Exam Psychiatric exam: Normal Affect, Normal Mood - Skin Skin Exam: Dry, Intact, Normal Color, Warm Results - Vital Signs Recent Vital Signs: Last Vital Signs Temp 98.6 F 06/23/16 16:30 Pulse 67 06/23/16 17:29 Resp 18 06/23/16 16:30 BP 116/63 06/23/16 17:29 Pulse Ox 94 L 06/23/16 16:30 - Labs Result Diagrams: 06/21/16 06:30 06/21/16 06:30 Labs: Laboratory Results - last 24 hr 06/22/16 06/22/16 06/22/16 04:13 16:35 21:59 PT INR POC Glucose (mg/dL) 74 280 H 168 H 06/23/16 06/23/16 04:46 05:00 PT 23.0 H INR 2.13 H POC Glucose (mg/dL) 68 Assessment & Plan - Assessment and Plan (Free Text) Assessment: 70F currently undergoing IV antibiotic treatment for recent L upper lobe pneumonia with current leukopenia with concern for possible infected portacath afebrile, VSS WBC on 06/21: 3.9, H/H: 9.1/28.9 Blood cultures 06/17: coagulase neg staph x2 Blood cultures 06/19: negative for growth for 4 days Plan: -No indication for emergent surgical intervention -f/u AM labs -continue antibiotic therapy per ID -continue cardiac therapy per cardiology -continue management per primary team -consult Dr. Maldonado Barnett for PICC line -Plan to remove portacath after established other vascular access site Discussed with Dr. Glynn Thank you for this consult Zoya Gutierrez, PGY1 <Parviz Glynn - Last Filed: 06/30/16 10:11> Meds - Medications Medications: Current Medications Acetaminophen (Tylenol 325mg Tab) 650 mg PO Q6H PRN; Protocol PRN Reason: Fever >100.4 F Last Admin: 06/30/16 02:45 Dose: 650 mg Albuterol/Ipratropium (Duoneb 3 Mg/0.5 Mg (3 Ml) Ud) 3 ml IH Q2H PRN; Protocol PRN Reason: Shortness of Breath Aspirin (Ecotrin) 81 mg PO 0800 [facility] PRN Reason: Protocol Last Admin: 06/30/16 08:34 Dose: 81 mg Enoxaparin Sodium (Lovenox) 100 mg SC 0600,1800 [facility] PRN Reason: Protocol Last Admin: 06/30/16 05:18 Dose: 100 mg Furosemide (Lasix) 40 mg PO DAILY [facility] Last Admin: 06/30/16 09:15 Dose: 40 mg Glimepiride (Amaryl) 4 mg PO 0800,1700 [facility] PRN Reason: Protocol Last Admin: 06/30/16 08:34 Dose: 4 mg Hydralazine HCl (Apresoline) 50 mg PO BID PRN; Protocol PRN Reason: IF BP>160 Last Admin: 06/28/16 18:56 Dose: 50 mg Vancomycin HCl (Vancomycin 1gm) 250 mls @ 167 mls/hr IVPB 0600,1800 [facility] PRN Reason: Protocol Stop: 07/01/16 06:00 Last Admin: 06/30/16 05:17 Dose: 167 mls/hr Ibuprofen (Motrin Tab) 600 mg PO BID PRN; Protocol PRN Reason: Pain, moderate (4-7) Last Admin: 06/22/16 14:25 Dose: 600 mg Insulin Human Regular (Humulin R Med) 0 units SC ACHS [facility] PRN Reason: Protocol Last Admin: 06/30/16 06:48 Dose: Not Given Isosorbide Mononitrate (Imdur) 60 mg PO 0630 [facility] PRN Reason: Protocol Last Admin: 06/30/16 06:47 Dose: 60 mg Lactic Acid (Lac-Hydrin 12% Lotion (225 G)) 0 gm EXT BID [facility] PRN Reason: Protocol Last Admin: 06/30/16 09:15 Dose: 1 applic Levalbuterol HCl (Xopenex) 1.25 mg IH [id number] PRN; Protocol PRN Reason: Shortness of Breath Metformin HCl (Glucophage) 1,000 mg PO 0800,1700 [facility] PRN Reason: Protocol Last Admin: 06/30/16 08:34 Dose: 1,000 mg Nadolol (Corgard) 10 mg PO BID [facility] PRN Reason: Protocol Last Admin: 06/30/16 09:14 Dose: 10 mg Nicotine (Nicoderm Cq) 1 patch TD DAILY [facility] PRN Reason: Protocol Last Admin: 06/30/16 09:16 Dose: 1 patch Nystatin/Triamcinolone Acetonide (Nystatin/Triamcinolone Cream) 0 ea TOP BID [facility] PRN Reason: Protocol Last Admin: 06/30/16 09:16 Dose: Not Given Pantoprazole Sodium (Protonix Ec Tab) 40 mg PO 0630 [facility] PRN Reason: Protocol Last Admin: 06/30/16 06:47 Dose: 40 mg Potassium Chloride (Klor-Con 10) 10 meq PO 0800 [facility] PRN Reason: Protocol Last Admin: 06/30/16 08:35 Dose: 10 meq Sitagliptin Phosphate (Januvia) 50 mg PO DAILY [facility] PRN Reason: Protocol Last Admin: 06/30/16 09:15 Dose: 50 mg Tiotropium [place] (Spiriva) 18 mcg IH DAILY [facility] PRN Reason: Protocol Last Admin: 06/30/16 09:16 Dose: 18 mcg Warfarin Sodium (Coumadin) 10 mg PO 1800 [facility] PRN Reason: Protocol Last Admin: 06/29/16 17:54 Dose: 10 mg Warfarin Sodium (Coumadin) 5 mg PO 1800 [facility] PRN Reason: Protocol Last Admin: 06/29/16 17:55 Dose: 5 mg Results - Vital Signs Recent Vital Signs: Last Vital Signs Temp 98.6 F 06/29/16 16:00 Pulse 74 06/30/16 09:14 Resp 15 06/29/16 16:00 BP 159/70 H 06/30/16 09:15 Pulse Ox 94 L 06/29/16 16:00 - Labs Result Diagrams: 06/30/16 06:00 06/29/16 09:01 Labs: Laboratory Results - last 24 hr 06/29/16 06/29/16 06/30/16 06:06 06:59 06:00 WBC 6.6 D RBC 2.99 L Hgb 8.1 L Hct 26.3 L MCV 88.0 MCH 27.1 MCHC 30.8 L RDW 16.1 H Plt Count 222 MPV 10.4 Gran % 69.6 H Lymph % (Auto) 19.8 L Mills % (Auto) 8.7 H Eos % (Auto) 1.7 Baso % (Auto) 0.2 Gran # 4.57 Lymph # 1.3 Mills # 0.6 Eos # 0.1 Baso # 0.01 PT 17.3 H INR 1.60 H POC Glucose (mg/dL) 54 L 101 Assessment & Plan - Assessment and Plan (Free Text) Assessment: Dx Recurrent Infected Portacath Jesus Removal(Off coumadin) Consult done under my direct supervision Traci Glynn MD FACS
[2016-06-24] MEDS: Pantoprazole 40 mg EC Tab PO SCH ×2 (05:14→07:56)
[2016-06-24] MEDS: Insulin Reg-MEDIUM-Coverage SC SCH ×4 (06:33→22:37)
--- NOTE | 2016-06-24 07:53 | CP.PCM.PCO ---
Physician Communication Note - Physician Communication Note Physician Communication Note: Rec Bacteremia/Rx PICC then remove PAC
[2016-06-24] MEDS: Potassium Chloride 10 mEq ER Tab PO SCH (07:55)
--- NOTE | 2016-06-24 09:09 | CP.PCM.PN ---
Subjective - Date & Time of Evaluation Date of Evaluation: 06/24/16 Time of Evaluation: 09:05 - Subjective Subjective: SURGICAL PROGRESS NOTE FOR DR. WALKER Pt seen and examined. No acute events overnight. Denies having any pain at site of portacath. Denies having any N/V/D/C, fevers or chills. Objective - Vital Signs/Intake and Output Vital Signs (last 24 hours): Temp Pulse Resp BP Pulse Ox 98.6 F 67 18 116/63 94 L 06/23/16 16:30 06/23/16 17:29 06/23/16 16:30 06/23/16 17:29 06/23/16 16:30 - Medications Medications: Current Medications Acetaminophen (Tylenol 325mg Tab) 650 mg PO Q6H PRN; Protocol PRN Reason: Fever >100.4 F Albuterol/Ipratropium (Duoneb 3 Mg/0.5 Mg (3 Ml) Ud) 3 ml IH Q2H PRN; Protocol PRN Reason: Shortness of Breath Aspirin (Ecotrin) 81 mg PO 0800 [facility] PRN Reason: Protocol Last Admin: 06/24/16 07:54 Dose: 81 mg Doxycycline Hyclate (Doryx) 100 mg PO Q12 [facility] PRN Reason: Protocol Last Admin: 06/23/16 21:36 Dose: 100 mg Furosemide (Lasix) 40 mg PO DAILY [facility] Last Admin: 06/23/16 09:45 Dose: 40 mg Glimepiride (Amaryl) 4 mg PO BID [facility] PRN Reason: Protocol Last Admin: 06/24/16 07:54 Dose: 4 mg Hydralazine HCl (Apresoline) 50 mg PO BID PRN; Protocol PRN Reason: IF BP>160 Daptomycin 640 mg/ Sodium (Chloride) 100 mls @ 200 mls/hr IV 0600 [facility] PRN Reason: Protocol Stop: 07/02/16 06:01 Last Admin: 06/24/16 05:07 Dose: 200 mls/hr Ibuprofen (Motrin Tab) 600 mg PO BID PRN; Protocol PRN Reason: Pain, moderate (4-7) Last Admin: 06/22/16 14:25 Dose: 600 mg Insulin Human Regular (Humulin R Med) 0 units SC ACHS [facility] PRN Reason: Protocol Last Admin: 06/24/16 06:33 Dose: Not Given Isosorbide Mononitrate (Imdur) 60 mg PO 0630 [facility] PRN Reason: Protocol Last Admin: 06/24/16 07:55 Dose: Not Given Lactic Acid (Lac-Hydrin 12% Lotion (225 G)) 0 gm EXT BID [facility] PRN Reason: Protocol Last Admin: 06/23/16 17:32 Dose: 1 applic Levalbuterol HCl (Xopenex) 1.25 mg IH [id number] PRN; Protocol PRN Reason: Shortness of Breath Metformin HCl (Glucophage) 1,000 mg PO 0800,1700 [facility] PRN Reason: Protocol Last Admin: 06/24/16 07:54 Dose: 1,000 mg Nadolol (Corgard) 10 mg PO BID [facility] PRN Reason: Protocol Last Admin: 06/23/16 17:29 Dose: 10 mg Nicotine (Nicoderm Cq) 1 patch TD DAILY [facility] PRN Reason: Protocol Last Admin: 06/23/16 09:45 Dose: 1 patch Nystatin/Triamcinolone Acetonide (Nystatin/Triamcinolone Cream) 0 ea TOP BID [facility] PRN Reason: Protocol Last Admin: 06/23/16 17:33 Dose: Not Given Pantoprazole Sodium (Protonix Ec Tab) 40 mg PO 0630 [facility] PRN Reason: Protocol Last Admin: 06/24/16 07:56 Dose: Not Given Potassium Chloride (Klor-Con 10) 10 meq PO 0800 [facility] PRN Reason: Protocol Last Admin: 06/24/16 07:55 Dose: 10 meq Sitagliptin Phosphate (Januvia) 50 mg PO DAILY [facility] PRN Reason: Protocol Last Admin: 06/23/16 09:44 Dose: 50 mg Tiotropium [place] (Spiriva) 18 mcg IH DAILY [facility] PRN Reason: Protocol Last Admin: 06/23/16 09:46 Dose: 18 mcg Warfarin Sodium (Coumadin) 1 mg PO 1800 [facility] PRN Reason: Protocol Last Admin: 06/23/16 17:30 Dose: 1 mg - Labs Labs: 06/21/16 06:30 06/21/16 06:30 PT 23.0 Seconds (9.9-11.8) H 06/23/16 05:00 INR 2.13 (0.93-1.08) H 06/23/16 05:00 - Constitutional Appears: Non-toxic, No Acute Distress - Head Exam Head Exam: ATRAUMATIC - ENT Exam ENT Exam: Mucous Membranes Moist - Respiratory Exam Respiratory Exam: absent: Accessory Muscle Use, Respiratory Distress - GI/Abdominal Exam GI & Abdominal Exam: Soft. absent: Distended, Firm, Guarding, Rigid, Tenderness - Neurological Exam Neurological Exam: Alert, Awake, Oriented x3 - Skin Skin Exam: Dry, Normal Color, Warm Additional comments: no erythema or tenderness around portacath site Assessment and Plan - Assessment and Plan (Free Text) Assessment: 70F currently undergoing IV antibiotic treatment for recent L upper lobe pneumonia with current leukopenia with concern for possible infected portacath Plan: - PICC line placed. Will remove portacath in future - Continue IV abx - Cont current medical management Will discuss with attending Dr. Renard Dnaiels PGY1
[2016-06-24] MEDS: Ammonium Lactate 12% Lotion (225 g) EXT SCH ×2 (09:39→18:20)
[2016-06-24] MEDS: Tiotropium 18 mcg Cap For Inhalation IH SCH (09:40)
[2016-06-24] MEDS: Nystatin-Triamcinolone Cream(30 gm) TOP SCH ×2 (09:40→18:20)
[2016-06-24 11:17] LABS: ADD MANUAL DIFF? NO
[2016-06-24 11:22] LABS: BASO # 0.02 K/mm3 (0.0-2.0); BASO % 0.3 % (0.0-3.0); EOS # 0.1 (0.0-0.7); EOS % 1.7 % (1.5-5.0); GRAN # 4.93 (1.4-6.5); GRAN % 71.6 % (50.0-68.0); HEMATOCRIT 27.8 % (36.0-48.0); LYMPH # 1.4 (1.2-3.4); LYMPH % 20.6 % (22.0-35.0); MEAN CELL VOLUME 86.6 fL (80.0-105.0); MEAN CORPUSCULAR HEMOGLOBIN 27.4 pg (25.0-35.0); MEAN CORPUSCULAR HGB CONC 31.7 g/dl (31.0-37.0); MEAN PLATELET VOLUME 9.7 fl (7.0-11.0); MONO # 0.4 (0.1-0.6); MONO % 5.8 % (1.0-6.0); PLATELET COUNT 222 10^3/uL (120.0-450.0); RED CELL DISTRIBUTION WIDTH 15.4 % (11.5-14.5); WHITE BLOOD COUNT 6.9 10^3/ul (4.5-11.0)
[2016-06-24 11:30] LABS: ALB/GLOB RATIO 1.2 (1.1-1.8); ALKALINE PHOSPHATASE 61 U/L (38-133); ALT/SGPT 24 U/L (7-56); AST/SGOT 24 U/L (15-39); BILIRUBIN,TOTAL 0.4 mg/dL (0.2-1.3); BLOOD UREA NITROGEN 46 mg/dL (7-21); CALCIUM 9.6 mg/dL (8.4-10.5); CARBON DIOXIDE 26 mmol/L (21-33); CHLORIDE 105 mmol/L (98-107); GFR AFRICAN-AMERICAN > 60; GLUCOSE,RANDOM 180 mg/dL (70-110); POTASSIUM 4.5 mmol/L (3.6-5.0); SODIUM 143 mmol/L (132-148); TOTAL PROTEIN 7.1 g/dL (5.8-8.3)
[2016-06-24 11:33] LABS: INR 1.48 (0.93-1.08); PARTIAL THROMBOPLASTIN TIME 31.7 Seconds (23.7-30.8)
--- NOTE | 2016-06-24 13:33 | PN ---
DATE: 06/24/2016 The patient is a 70 years old, seen and examined sitting in chair, comfortable. Scanty cough. No fe modesta, no chills. No nausea, vomiting, no diarrhea. VITAL SIGNS: She is afebrile, pulse 84, respirations 20, blood pressure 148/83. LUNGS: Bilateral fair airflow. No rhonchi or crackle. HEART: S1, S2 audible. No murmur. ABDOMEN: Soft, obese, nontender, no rebound, no guarding. NEUROLOGIC: She is awake and alert, communicative. Ambulates with a walker. LABORATORY EXAMINATION: WBC 6.9, hemoglobin 8.8, hematocrit 27.8, platelet of 222. PT 16.0, INR 1.4 8. Chemistry: Sodium 143, potassium 4.5, chloride 105, CO2 of 26, BUN 46, creatinine 0.9. Blood gonzalez gar of 180. Her previous blood cultures were negative. She did have positive blood culture on 06/18 with coag negative staph that she always has, so Dr. Glynn was consulted. : 1. Chronic obstructive pulmonary disease exacerbation that is stable. 2. Hospital-acquired pneumonia. 3. Hypertension. 4. Non-insulin dependent diabetes. PLAN: Dr. Glynn' input noted and appreciated. I will consult Dr. Maldonado Barnett for PICC line, and once PICC line is in, Port-A-Cath will be removed. Edwige Kirby MD cc: [phone] TT: 06/24/2016 13:32:39 Confirmation # [id number] Dictation # [id number]
--- NOTE | 2016-06-24 14:00 | CP.PCM.PN ---
<Conrad Vega - Last Filed: 06/24/16 13:57> Subjective - Date & Time of Evaluation Date of Evaluation: 06/24/16 Time of Evaluation: 11:00 - Subjective Subjective: 70 year old female patient with PMHx of COPD & CHF was seen at bedside concerning bilateral fissures to feet. Patient was resting comfortably in bed with no acute overnight distress. AAO x3. Patient denies any new pedal complaints. Patient denies numbness, burning, tingling in her feet. Patient appears in NAD. Patient's offloading boots appear intact to both feet. Patient denies n/f/c/v/d/sob. Objective - Vital Signs/Intake and Output Vital Signs (last 24 hours): Temp Pulse Resp BP Pulse Ox 97.4 F L 84 20 148/83 97 06/24/16 10:00 06/24/16 10:40 06/24/16 10:00 06/24/16 10:40 06/24/16 10:00 - Medications Medications: Current Medications Acetaminophen (Tylenol 325mg Tab) 650 mg PO Q6H PRN; Protocol PRN Reason: Fever >100.4 F Albuterol/Ipratropium (Duoneb 3 Mg/0.5 Mg (3 Ml) Ud) 3 ml IH Q2H PRN; Protocol PRN Reason: Shortness of Breath Aspirin (Ecotrin) 81 mg PO 0800 [facility] PRN Reason: Protocol Last Admin: 06/24/16 07:54 Dose: 81 mg Doxycycline Hyclate (Doryx) 100 mg PO Q12 [facility] PRN Reason: Protocol Last Admin: 06/24/16 09:39 Dose: 100 mg Furosemide (Lasix) 40 mg PO DAILY [facility] Last Admin: 06/24/16 09:39 Dose: 40 mg Glimepiride (Amaryl) 4 mg PO BID [facility] PRN Reason: Protocol Last Admin: 06/24/16 09:37 Dose: Not Given Hydralazine HCl (Apresoline) 50 mg PO BID PRN; Protocol PRN Reason: IF BP>160 Daptomycin 640 mg/ Sodium (Chloride) 100 mls @ 200 mls/hr IV 0600 [facility] PRN Reason: Protocol Stop: 07/02/16 06:01 Last Admin: 06/24/16 05:07 Dose: 200 mls/hr Ibuprofen (Motrin Tab) 600 mg PO BID PRN; Protocol PRN Reason: Pain, moderate (4-7) Last Admin: 06/22/16 14:25 Dose: 600 mg Insulin Human Regular (Humulin R Med) 0 units SC ACHS [facility] PRN Reason: Protocol Last Admin: 06/24/16 12:10 Dose: Not Given Isosorbide Mononitrate (Imdur) 60 mg PO 0630 [facility] PRN Reason: Protocol Last Admin: 06/24/16 07:55 Dose: Not Given Lactic Acid (Lac-Hydrin 12% Lotion (225 G)) 0 gm EXT BID [facility] PRN Reason: Protocol Last Admin: 06/24/16 09:39 Dose: 1 applic Levalbuterol HCl (Xopenex) 1.25 mg IH [id number] PRN; Protocol PRN Reason: Shortness of Breath Metformin HCl (Glucophage) 1,000 mg PO 0800,1700 [facility] PRN Reason: Protocol Last Admin: 06/24/16 07:54 Dose: 1,000 mg Nadolol (Corgard) 10 mg PO BID [facility] PRN Reason: Protocol Last Admin: 06/24/16 10:40 Dose: 10 mg Nicotine (Nicoderm Cq) 1 patch TD DAILY [facility] PRN Reason: Protocol Last Admin: 06/24/16 09:40 Dose: 1 patch Nystatin/Triamcinolone Acetonide (Nystatin/Triamcinolone Cream) 0 ea TOP BID [facility] PRN Reason: Protocol Last Admin: 06/24/16 09:40 Dose: 1 appl Pantoprazole Sodium (Protonix Ec Tab) 40 mg PO 0630 [facility] PRN Reason: Protocol Last Admin: 06/24/16 07:56 Dose: Not Given Potassium Chloride (Klor-Con 10) 10 meq PO 0800 [facility] PRN Reason: Protocol Last Admin: 06/24/16 07:55 Dose: 10 meq Sitagliptin Phosphate (Januvia) 50 mg PO DAILY [facility] PRN Reason: Protocol Last Admin: 06/24/16 09:39 Dose: 50 mg Tiotropium [place] (Spiriva) 18 mcg IH DAILY [facility] PRN Reason: Protocol Last Admin: 06/24/16 09:40 Dose: 18 mcg Warfarin Sodium (Coumadin) 1 mg PO 1800 [facility] PRN Reason: Protocol Last Admin: 06/23/16 17:30 Dose: 1 mg - Labs Labs: 06/24/16 11:05 06/24/16 11:05 PT 16.0 Seconds (9.9-11.8) H 06/24/16 11:05 INR 1.48 (0.93-1.08) H 06/24/16 11:05 APTT 31.7 Seconds (23.7-30.8) H 06/24/16 11:05 - Constitutional Appears: Well, Non-toxic, No Acute Distress - Extremities Exam Additional comments: DERM: No open wound noted. Resolved fissures, no drainage, no acute clinical signs of infection, no erythema, no hyperkeratotic lesions VASC: Non-palpable pedal pulses due to nonpittng edema, CFT < 3 sec to all digis , TG wnl NEURO: grossly diminished - Psychiatric Exam Psychiatric exam: Normal Mood - Skin Skin Exam: Normal Color, Warm Assessment and Plan - Assessment and Plan (Free Text) Assessment: 70 y/o female seen at bedside for resolved heel fissures bilaterally. Plan: Patient evaluated & treated with attending Dr. Henriquez. Labs and chart reviewed. Continue applying Lac-hydrin daily. Continue offloading boots while patient remains in bed Podiatry will continue to monitor while patient remains in house <Deric Henriquez - Last Filed: 06/24/16 15:28> Objective - Vital Signs/Intake and Output Vital Signs (last 24 hours): Temp Pulse Resp BP Pulse Ox 97.4 F L 84 20 148/83 97 06/24/16 10:00 06/24/16 10:40 06/24/16 10:00 06/24/16 10:40 06/24/16 10:00 - Medications Medications: Current Medications Acetaminophen (Tylenol 325mg Tab) 650 mg PO Q6H PRN; Protocol PRN Reason: Fever >100.4 F Albuterol/Ipratropium (Duoneb 3 Mg/0.5 Mg (3 Ml) Ud) 3 ml IH Q2H PRN; Protocol PRN Reason: Shortness of Breath Aspirin (Ecotrin) 81 mg PO 0800 [facility] PRN Reason: Protocol Last Admin: 06/24/16 07:54 Dose: 81 mg Doxycycline Hyclate (Doryx) 100 mg PO Q12 [facility] PRN Reason: Protocol Last Admin: 06/24/16 09:39 Dose: 100 mg Furosemide (Lasix) 40 mg PO DAILY [facility] Last Admin: 06/24/16 09:39 Dose: 40 mg Glimepiride (Amaryl) 4 mg PO BID [facility] PRN Reason: Protocol Last Admin: 06/24/16 09:37 Dose: Not Given Hydralazine HCl (Apresoline) 50 mg PO BID PRN; Protocol PRN Reason: IF BP>160 Daptomycin 640 mg/ Sodium (Chloride) 100 mls @ 200 mls/hr IV 0600 [facility] PRN Reason: Protocol Stop: 07/02/16 06:01 Last Admin: 06/24/16 05:07 Dose: 200 mls/hr Ibuprofen (Motrin Tab) 600 mg PO BID PRN; Protocol PRN Reason: Pain, moderate (4-7) Last Admin: 06/22/16 14:25 Dose: 600 mg Insulin Human Regular (Humulin R Med) 0 units SC ACHS [facility] PRN Reason: Protocol Last Admin: 06/24/16 12:10 Dose: Not Given Isosorbide Mononitrate (Imdur) 60 mg PO 0630 [facility] PRN Reason: Protocol Last Admin: 06/24/16 07:55 Dose: Not Given Lactic Acid (Lac-Hydrin 12% Lotion (225 G)) 0 gm EXT BID [facility] PRN Reason: Protocol Last Admin: 06/24/16 09:39 Dose: 1 applic Levalbuterol HCl (Xopenex) 1.25 mg IH [id number] PRN; Protocol PRN Reason: Shortness of Breath Metformin HCl (Glucophage) 1,000 mg PO 0800,1700 [facility] PRN Reason: Protocol Last Admin: 06/24/16 07:54 Dose: 1,000 mg Nadolol (Corgard) 10 mg PO BID [facility] PRN Reason: Protocol Last Admin: 06/24/16 10:40 Dose: 10 mg Nicotine (Nicoderm Cq) 1 patch TD DAILY [facility] PRN Reason: Protocol Last Admin: 06/24/16 09:40 Dose: 1 patch Nystatin/Triamcinolone Acetonide (Nystatin/Triamcinolone Cream) 0 ea TOP BID [facility] PRN Reason: Protocol Last Admin: 06/24/16 09:40 Dose: 1 appl Pantoprazole Sodium (Protonix Ec Tab) 40 mg PO 0630 [facility] PRN Reason: Protocol Last Admin: 06/24/16 07:56 Dose: Not Given Potassium Chloride (Klor-Con 10) 10 meq PO 0800 [facility] PRN Reason: Protocol Last Admin: 06/24/16 07:55 Dose: 10 meq Sitagliptin Phosphate (Januvia) 50 mg PO DAILY [facility] PRN Reason: Protocol Last Admin: 06/24/16 09:39 Dose: 50 mg Tiotropium [place] (Spiriva) 18 mcg IH DAILY [facility] PRN Reason: Protocol Last Admin: 06/24/16 09:40 Dose: 18 mcg Warfarin Sodium (Coumadin) 1 mg PO 1800 [facility] PRN Reason: Protocol Last Admin: 06/23/16 17:30 Dose: 1 mg - Labs Labs: 06/24/16 11:05 06/24/16 11:05 PT 16.0 Seconds (9.9-11.8) H 06/24/16 11:05 INR 1.48 (0.93-1.08) H 06/24/16 11:05 APTT 31.7 Seconds (23.7-30.8) H 06/24/16 11:05 Attending/Attestation - Attestation I have personally seen and examined this patient.: Yes I have fully participated in the care of the patient.: Yes I have reviewed all pertinent clinical information, including history, physical exam and plan: Yes
--- NOTE | 2016-06-24 14:55 | CP.PCM.PN ---
Subjective - Date & Time of Evaluation Date of Evaluation: 06/24/16 Time of Evaluation: 09:55 - Subjective Subjective: Comfortable in bed, not in distress, afebrile overnight. Objective - Vital Signs/Intake and Output Vital Signs (last 24 hours): Temp Pulse Resp BP Pulse Ox 97.4 F L 84 20 148/83 97 06/24/16 10:00 06/24/16 10:40 06/24/16 10:00 06/24/16 10:40 06/24/16 10:00 - Medications Medications: Current Medications Acetaminophen (Tylenol 325mg Tab) 650 mg PO Q6H PRN; Protocol PRN Reason: Fever >100.4 F Albuterol/Ipratropium (Duoneb 3 Mg/0.5 Mg (3 Ml) Ud) 3 ml IH Q2H PRN; Protocol PRN Reason: Shortness of Breath Aspirin (Ecotrin) 81 mg PO 0800 [facility] PRN Reason: Protocol Last Admin: 06/24/16 07:54 Dose: 81 mg Doxycycline Hyclate (Doryx) 100 mg PO Q12 [facility] PRN Reason: Protocol Last Admin: 06/24/16 09:39 Dose: 100 mg Furosemide (Lasix) 40 mg PO DAILY [facility] Last Admin: 06/24/16 09:39 Dose: 40 mg Glimepiride (Amaryl) 4 mg PO BID [facility] PRN Reason: Protocol Last Admin: 06/24/16 09:37 Dose: Not Given Hydralazine HCl (Apresoline) 50 mg PO BID PRN; Protocol PRN Reason: IF BP>160 Daptomycin 640 mg/ Sodium (Chloride) 100 mls @ 200 mls/hr IV 0600 [facility] PRN Reason: Protocol Stop: 07/02/16 06:01 Last Admin: 06/24/16 05:07 Dose: 200 mls/hr Ibuprofen (Motrin Tab) 600 mg PO BID PRN; Protocol PRN Reason: Pain, moderate (4-7) Last Admin: 06/22/16 14:25 Dose: 600 mg Insulin Human Regular (Humulin R Med) 0 units SC ACHS [facility] PRN Reason: Protocol Last Admin: 06/24/16 12:10 Dose: Not Given Isosorbide Mononitrate (Imdur) 60 mg PO 0630 [facility] PRN Reason: Protocol Last Admin: 06/24/16 07:55 Dose: Not Given Lactic Acid (Lac-Hydrin 12% Lotion (225 G)) 0 gm EXT BID [facility] PRN Reason: Protocol Last Admin: 06/24/16 09:39 Dose: 1 applic Levalbuterol HCl (Xopenex) 1.25 mg IH [id number] PRN; Protocol PRN Reason: Shortness of Breath Metformin HCl (Glucophage) 1,000 mg PO 0800,1700 [facility] PRN Reason: Protocol Last Admin: 06/24/16 07:54 Dose: 1,000 mg Nadolol (Corgard) 10 mg PO BID [facility] PRN Reason: Protocol Last Admin: 06/24/16 10:40 Dose: 10 mg Nicotine (Nicoderm Cq) 1 patch TD DAILY [facility] PRN Reason: Protocol Last Admin: 06/24/16 09:40 Dose: 1 patch Nystatin/Triamcinolone Acetonide (Nystatin/Triamcinolone Cream) 0 ea TOP BID [facility] PRN Reason: Protocol Last Admin: 06/24/16 09:40 Dose: 1 appl Pantoprazole Sodium (Protonix Ec Tab) 40 mg PO 0630 [facility] PRN Reason: Protocol Last Admin: 06/24/16 07:56 Dose: Not Given Potassium Chloride (Klor-Con 10) 10 meq PO 0800 [facility] PRN Reason: Protocol Last Admin: 06/24/16 07:55 Dose: 10 meq Sitagliptin Phosphate (Januvia) 50 mg PO DAILY [facility] PRN Reason: Protocol Last Admin: 06/24/16 09:39 Dose: 50 mg Tiotropium [place] (Spiriva) 18 mcg IH DAILY [facility] PRN Reason: Protocol Last Admin: 06/24/16 09:40 Dose: 18 mcg Warfarin Sodium (Coumadin) 1 mg PO 1800 [facility] PRN Reason: Protocol Last Admin: 06/23/16 17:30 Dose: 1 mg - Labs Labs: 06/24/16 11:05 06/24/16 11:05 PT 16.0 Seconds (9.9-11.8) H 06/24/16 11:05 INR 1.48 (0.93-1.08) H 06/24/16 11:05 APTT 31.7 Seconds (23.7-30.8) H 06/24/16 11:05 - Constitutional Appears: Non-toxic, No Acute Distress - Head Exam Head Exam: NORMAL INSPECTION - ENT Exam ENT Exam: Mucous Membranes Moist - Neck Exam Neck Exam: absent: Lymphadenopathy, Meningismus - Respiratory Exam Respiratory Exam: Decreased Breath Sounds - Cardiovascular Exam Cardiovascular Exam: +S1, +S2 - GI/Abdominal Exam GI & Abdominal Exam: Soft. absent: Tenderness Assessment and Plan - Assessment and Plan (Free Text) Plan: Assessment Sepsis with acute hypoxic respiratory failure secondary to left-sided healthcare -associated pneumonia with possible gram positive cocci and/or gram negative bacilli, clinically improved as well as persistent methicillin-resistant coagulase negative staph bacteremia, R/O port infection history of Group G Strep bacteremia history of E. coli UTI history of healthcare-associated pneumonia acute renal failure obesity with BMI 38 CAD GERD arthritis history of bilateral knee replacements chronic CHF COPD DM history of breast CA History of Strep bovis bacteremia (2012) S/P Port-a-cath placement Plan on Doxycycline day 7 - will d/c after today we have d/c'ed Vancomycin because of the change in renal function and have switched to Daptomycin (day 6 since 1st negative blood cx on 06/19) discussed with Dr. Kirby - plan is to remove the port because of the bacteremia
--- NOTE | 2016-06-24 20:55 | PN ---
DATE: 06/24/2016 The patient is in room 313, bed 1. REASON FOR CONSULTATION AND FOLLOWUP: Coronary artery disease, chronic atrial fibrillation, chronic obstructive pulmonary disease, hypertension. HISTORY OF PRESENT ILLNESS: A 70-year-old morbidly obese female with past medical history significan t for tobacco abuse. The patient continues to still smoke. History of hypertension, diabetes, hyper lipidemia, chronic atrial fibrillation, coronary artery disease, admitted to medical floor with short ness of breath, cough and congestion. The patient had left-sided healthcare-related pneumonia. The patient was treated with medication and she got better. Now she is in transitional care unit for dec onditioning and physical therapy. 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 The patient denies any cardiac symptoms at present, and she is getting physical therapy. The patient, on examination: VITAL SIGNS: Blood pressure 132/63, respirations 20, pulse 84, temperature 97.4. HEAD: Normocephalic. EYES: Pupils normal, conjunctivae slightly pale. NECK: JVP low. Carotid equal. THORAX: AP diameter normal. LUNGS: No significant rales. CARDIOVASCULAR: S1, S2, ejection systolic murmur grade III/. No rub. ABDOMEN: Protuberant, no organomegaly. EXTREMITIES: No clubbing, no cyanosis. LABORATORIES: WBC 6.9, hemoglobin 8.8, hematocrit 27.8, platelet 222. Sodium 143, potassium 4.5, BU N 46, creatinine 0.9. Random sugar 180. AST, ALT, total protein, albumin normal. Prothrombin time today is 16.2 with INR 1.48. DIAGNOSES: Chronic atrial fibrillation, diabetes mellitus, hypertension, hyperlipidemia, obesity, 1- vessel coronary artery disease, totally occluded right coronary artery getting collaterals from the l eft anterior descending coronary artery, moderate aortic stenosis, chronic obstructive pulmonary dise ase, pulmonary hypertension, severe anemia, status post blood transfusion, history of intravenous mal formations stoma, deconditioned, respiratory tract infection, pneumonia, tobacco abuse. PLAN: The patient on Corgard 10 mg t.i.d., daptomycin 640 mg IV daily, Doryx 100 mg p.o. q. 12 hours , DuoNeb hand nebulizer therapy, aspirin 81 mg daily, isosorbide mono 60 mg daily, Januvia 50 mg patricia y, potassium 10 mEq daily, furosemide 40 daily, Protonix 40 daily, Amaryl 4 mg daily, metformin 1000 mg p.o. b.i.d. Brianna Deng MD cc: [phone] TT: 06/24/2016 20:54:53 Confirmation # [id number] Dictation # [id number]
[2016-06-25] MEDS: Pantoprazole 40 mg EC Tab PO SCH (05:48)
[2016-06-25 06:38] LABS: ADD MANUAL DIFF? NO
[2016-06-25 06:46] LABS: BASO # 0.02 K/mm3 (0.0-2.0); BASO % 0.3 % (0.0-3.0); EOS # 0.1 (0.0-0.7); EOS % 2.2 % (1.5-5.0); GRAN # 4.43 (1.4-6.5); GRAN % 69.7 % (50.0-68.0); HEMATOCRIT 26.6 % (36.0-48.0); LYMPH # 1.4 (1.2-3.4); LYMPH % 21.3 % (22.0-35.0); MEAN CELL VOLUME 86.9 fL (80.0-105.0); MEAN CORPUSCULAR HEMOGLOBIN 27.5 pg (25.0-35.0); MEAN CORPUSCULAR HGB CONC 31.6 g/dl (31.0-37.0); MEAN PLATELET VOLUME 9.8 fl (7.0-11.0); MONO # 0.4 (0.1-0.6); MONO % 6.5 % (1.0-6.0); PLATELET COUNT 230 10^3/uL (120.0-450.0); RED CELL DISTRIBUTION WIDTH 15.4 % (11.5-14.5); WHITE BLOOD COUNT 6.4 10^3/ul (4.5-11.0)
[2016-06-25 06:55] LABS: ALB/GLOB RATIO 1.1 (1.1-1.8); ALKALINE PHOSPHATASE 58 U/L (38-133); ALT/SGPT 27 U/L (7-56); AST/SGOT 23 U/L (15-39); BILIRUBIN,TOTAL 0.3 mg/dL (0.2-1.3); BLOOD UREA NITROGEN 44 mg/dL (7-21); CALCIUM 9.6 mg/dL (8.4-10.5); CARBON DIOXIDE 28 mmol/L (21-33); CHLORIDE 107 mmol/L (98-107); GFR AFRICAN-AMERICAN > 60; GLUCOSE,RANDOM 67 mg/dL (70-110); POTASSIUM 4.3 mmol/L (3.6-5.0); SODIUM 143 mmol/L (132-148); TOTAL PROTEIN 6.8 g/dL (5.8-8.3)
[2016-06-25 07:00] LABS: INR 1.47 (0.93-1.08); PARTIAL THROMBOPLASTIN TIME 32.2 Seconds (23.7-30.8)
[2016-06-25] MEDS: Insulin Reg-MEDIUM-Coverage SC SCH ×4 (07:05→23:02)
[2016-06-25] MEDS: Potassium Chloride 10 mEq ER Tab PO SCH (08:00)
--- NOTE | 2016-06-25 08:27 | CP.PCM.PN ---
Subjective - Date & Time of Evaluation Date of Evaluation: 06/25/16 Time of Evaluation: 08:25 - Subjective Subjective: SURGICAL PROGRESS NOTE FOR DR. WALKER Pt seen and examined. No acute events overnight. Pt had PICC line inserted yesterday. Denies having any pain at site of portacath. Denies having any pain or pruritus on nose from previous lesion. Objective - Vital Signs/Intake and Output Vital Signs (last 24 hours): Temp Pulse Resp BP Pulse Ox 97.4 F L 79 20 132/63 97 06/24/16 10:00 06/24/16 18:18 06/24/16 10:00 06/24/16 18:18 06/24/16 10:00 - Medications Medications: Current Medications Acetaminophen (Tylenol 325mg Tab) 650 mg PO Q6H PRN; Protocol PRN Reason: Fever >100.4 F Albuterol/Ipratropium (Duoneb 3 Mg/0.5 Mg (3 Ml) Ud) 3 ml IH Q2H PRN; Protocol PRN Reason: Shortness of Breath Aspirin (Ecotrin) 81 mg PO 0800 [facility] PRN Reason: Protocol Last Admin: 06/25/16 07:58 Dose: 81 mg Doxycycline Hyclate (Doryx) 100 mg PO Q12 [facility] PRN Reason: Protocol Last Admin: 06/24/16 22:37 Dose: 100 mg Furosemide (Lasix) 40 mg PO DAILY [facility] Last Admin: 06/24/16 09:39 Dose: 40 mg Glimepiride (Amaryl) 4 mg PO 0800,1700 [facility] PRN Reason: Protocol Last Admin: 06/25/16 07:58 Dose: Not Given Hydralazine HCl (Apresoline) 50 mg PO BID PRN; Protocol PRN Reason: IF BP>160 Daptomycin 640 mg/ Sodium (Chloride) 100 mls @ 200 mls/hr IV 0600 [facility] PRN Reason: Protocol Stop: 07/02/16 06:01 Last Admin: 06/25/16 05:41 Dose: 200 mls/hr Ibuprofen (Motrin Tab) 600 mg PO BID PRN; Protocol PRN Reason: Pain, moderate (4-7) Last Admin: 06/22/16 14:25 Dose: 600 mg Insulin Human Regular (Humulin R Med) 0 units SC ACHS [facility] PRN Reason: Protocol Last Admin: 06/25/16 07:05 Dose: Not Given Isosorbide Mononitrate (Imdur) 60 mg PO 0630 [facility] PRN Reason: Protocol Last Admin: 06/25/16 07:04 Dose: 60 mg Lactic Acid (Lac-Hydrin 12% Lotion (225 G)) 0 gm EXT BID [facility] PRN Reason: Protocol Last Admin: 06/24/16 18:20 Dose: 1 applic Levalbuterol HCl (Xopenex) 1.25 mg IH [id number] PRN; Protocol PRN Reason: Shortness of Breath Metformin HCl (Glucophage) 1,000 mg PO 0800,1700 [facility] PRN Reason: Protocol Last Admin: 06/25/16 07:58 Dose: Not Given Nadolol (Corgard) 10 mg PO BID [facility] PRN Reason: Protocol Last Admin: 06/24/16 18:18 Dose: 10 mg Nicotine (Nicoderm Cq) 1 patch TD DAILY [facility] PRN Reason: Protocol Last Admin: 06/24/16 09:40 Dose: 1 patch Nystatin/Triamcinolone Acetonide (Nystatin/Triamcinolone Cream) 0 ea TOP BID [facility] PRN Reason: Protocol Last Admin: 06/24/16 18:20 Dose: 1 appl Pantoprazole Sodium (Protonix Ec Tab) 40 mg PO 0630 [facility] PRN Reason: Protocol Last Admin: 06/25/16 05:48 Dose: 40 mg Phytonadione (Vitamin K Inj) 10 mg SC ONCE ONE Stop: 06/25/16 08:31 Last Admin: 06/25/16 08:00 Dose: 10 mg Potassium Chloride (Klor-Con 10) 10 meq PO 0800 [facility] PRN Reason: Protocol Last Admin: 06/25/16 08:00 Dose: 10 meq Sitagliptin Phosphate (Januvia) 50 mg PO DAILY [facility] PRN Reason: Protocol Last Admin: 06/24/16 09:39 Dose: 50 mg Tiotropium [place] (Spiriva) 18 mcg IH DAILY [facility] PRN Reason: Protocol Last Admin: 06/24/16 09:40 Dose: 18 mcg - Labs Labs: 06/25/16 05:00 06/25/16 05:00 PT 15.9 Seconds (9.9-11.8) H 06/25/16 05:00 INR 1.47 (0.93-1.08) H 06/25/16 05:00 APTT 32.2 Seconds (23.7-30.8) H 06/25/16 05:00 - Constitutional Appears: Non-toxic, No Acute Distress - Head Exam Head Exam: ATRAUMATIC - ENT Exam ENT Exam: Mucous Membranes Moist - Respiratory Exam Respiratory Exam: absent: Accessory Muscle Use, Respiratory Distress - GI/Abdominal Exam GI & Abdominal Exam: Soft. absent: Distended, Firm, Guarding, Rigid, Tenderness - Neurological Exam Neurological Exam: Alert, Awake, Oriented x3 - Psychiatric Exam Psychiatric exam: Normal Affect, Normal Mood - Skin Skin Exam: Dry, Intact, Normal Color, Warm Assessment and Plan - Assessment and Plan (Free Text) Assessment: 70F currently undergoing IV antibiotic treatment for recent L upper lobe pneumonia with current leukopenia with concern for possible infected portacath Plan: - PICC line placed yesterday. Portacath removal tentatively scheduled for tomorrow - Continue IV abx - Cont current medical management Will discuss with attending Dr. Renard Daniels PGY1
[2016-06-25] MEDS ORDERED: Phytonadione 10 mg/ml Inj (Adult) SC ONE (08:30)
[2016-06-25] MEDS: Ammonium Lactate 12% Lotion (225 g) EXT SCH ×2 (09:58→17:27)
[2016-06-25] MEDS: Nystatin-Triamcinolone Cream(30 gm) TOP SCH ×2 (09:59→17:27)
[2016-06-25] MEDS: Tiotropium 18 mcg Cap For Inhalation IH SCH (10:00)
--- NOTE | 2016-06-25 11:54 | CP.PCM.PCO ---
Physician Communication Note - Physician Communication Note Physician Communication Note: OR am-removal PAC
--- NOTE | 2016-06-25 15:30 | CP.PCM.PN ---
Subjective - Date & Time of Evaluation Date of Evaluation: 06/25/16 Time of Evaluation: 10:20 - Subjective Subjective: Comfortable in bed, not in distress, no fevers overnight. No nausea, no body aches. Objective - Vital Signs/Intake and Output Vital Signs (last 24 hours): Temp Pulse Resp BP Pulse Ox 98.3 F 81 20 142/80 99 06/25/16 10:00 06/25/16 10:00 06/25/16 10:00 06/25/16 10:00 06/25/16 10:00 - Medications Medications: Current Medications Acetaminophen (Tylenol 325mg Tab) 650 mg PO Q6H PRN; Protocol PRN Reason: Fever >100.4 F Albuterol/Ipratropium (Duoneb 3 Mg/0.5 Mg (3 Ml) Ud) 3 ml IH Q2H PRN; Protocol PRN Reason: Shortness of Breath Aspirin (Ecotrin) 81 mg PO 0800 [facility] PRN Reason: Protocol Last Admin: 06/25/16 07:58 Dose: 81 mg Furosemide (Lasix) 40 mg PO DAILY [facility] Last Admin: 06/25/16 09:58 Dose: 40 mg Glimepiride (Amaryl) 4 mg PO 0800,1700 [facility] PRN Reason: Protocol Last Admin: 06/25/16 07:58 Dose: Not Given Heparin Sodium (Porcine) (Heparin) 5,000 units SC Q8 [facility] PRN Reason: Protocol Stop: 06/26/16 07:00 Last Admin: 06/25/16 09:57 Dose: Not Given Hydralazine HCl (Apresoline) 50 mg PO BID PRN; Protocol PRN Reason: IF BP>160 Daptomycin 640 mg/ Sodium (Chloride) 100 mls @ 200 mls/hr IV 0600 [facility] PRN Reason: Protocol Stop: 07/02/16 06:01 Last Admin: 06/25/16 05:41 Dose: 200 mls/hr Ibuprofen (Motrin Tab) 600 mg PO BID PRN; Protocol PRN Reason: Pain, moderate (4-7) Last Admin: 06/22/16 14:25 Dose: 600 mg Insulin Human Regular (Humulin R Med) 0 units SC ACHS [facility] PRN Reason: Protocol Last Admin: 06/25/16 11:56 Dose: Not Given Isosorbide Mononitrate (Imdur) 60 mg PO 0630 [facility] PRN Reason: Protocol Last Admin: 06/25/16 07:04 Dose: 60 mg Lactic Acid (Lac-Hydrin 12% Lotion (225 G)) 0 gm EXT BID [facility] PRN Reason: Protocol Last Admin: 06/25/16 09:58 Dose: 1 applic Levalbuterol HCl (Xopenex) 1.25 mg IH [id number] PRN; Protocol PRN Reason: Shortness of Breath Metformin HCl (Glucophage) 1,000 mg PO 0800,1700 [facility] PRN Reason: Protocol Last Admin: 06/25/16 07:58 Dose: Not Given Nadolol (Corgard) 10 mg PO BID [facility] PRN Reason: Protocol Last Admin: 06/25/16 09:56 Dose: 10 mg Nicotine (Nicoderm Cq) 1 patch TD DAILY [facility] PRN Reason: Protocol Last Admin: 06/25/16 09:59 Dose: 1 patch Nystatin/Triamcinolone Acetonide (Nystatin/Triamcinolone Cream) 0 ea TOP BID [facility] PRN Reason: Protocol Last Admin: 06/25/16 09:59 Dose: 1 appl Pantoprazole Sodium (Protonix Ec Tab) 40 mg PO 0630 [facility] PRN Reason: Protocol Last Admin: 06/25/16 05:48 Dose: 40 mg Potassium Chloride (Klor-Con 10) 10 meq PO 0800 [facility] PRN Reason: Protocol Last Admin: 06/25/16 08:00 Dose: 10 meq Sitagliptin Phosphate (Januvia) 50 mg PO DAILY [facility] PRN Reason: Protocol Last Admin: 06/25/16 09:58 Dose: Not Given Tiotropium [place] (Spiriva) 18 mcg IH DAILY [facility] PRN Reason: Protocol Last Admin: 06/25/16 10:00 Dose: 18 mcg - Labs Labs: 06/25/16 05:00 06/25/16 05:00 PT 15.9 Seconds (9.9-11.8) H 06/25/16 05:00 INR 1.47 (0.93-1.08) H 06/25/16 05:00 APTT 32.2 Seconds (23.7-30.8) H 06/25/16 05:00 - Constitutional Appears: Non-toxic, No Acute Distress - Head Exam Head Exam: NORMAL INSPECTION - Neck Exam Neck Exam: absent: Lymphadenopathy, Meningismus - Respiratory Exam Respiratory Exam: Decreased Breath Sounds - Cardiovascular Exam Cardiovascular Exam: +S1, +S2 - GI/Abdominal Exam GI & Abdominal Exam: Soft. absent: Tenderness Assessment and Plan - Assessment and Plan (Free Text) Plan: Assessment Sepsis with acute hypoxic respiratory failure secondary to left-sided healthcare -associated pneumonia with possible gram positive cocci and/or gram negative bacilli, clinically improved and S/P treatment as well as persistent methicillin -resistant coagulase negative staph bacteremia, suspect port infection history of Group G Strep bacteremia history of E. coli UTI history of healthcare-associated pneumonia acute renal failure obesity with BMI 38 CAD GERD arthritis history of bilateral knee replacements chronic CHF COPD DM history of breast CA History of Strep bovis bacteremia (2012) S/P Port-a-cath placement Plan continue Daptomycin (day 7 since 1st negative blood cx on 06/19) - awaiting port removal - discussed with Dr. Kirby
--- NOTE | 2016-06-25 19:15 | PN ---
DATE: 06/25/2016 LOCATION: Room 313, bed 1. REASON FOR CONSULTATION AND FOLLOWUP: Coronary artery disease, chronic atrial fibrillation, chronic obstructive pulmonary disease, hypertension. HISTORY OF PRESENT ILLNESS: A 70-year-old morbidly obese female with past medical history significan t for tobacco abuse, patient continues to smoke, hypertension, diabetes, hyperlipidemia, chronic atri al fibrillation, coronary artery disease, admitted to medical floor with shortness of breath, cough a nd congestion. The patient also found to have left-sided healthcare related pneumonia. The patient also got blood transfusion due to severe anemia. The patient known to have AV malformation in the [facility]. The patient clinically stable, getting physical therapy without any cardiac symptoms. PHYSICAL EXAMINATION: VITAL SIGNS: Blood pressure is 142/80, repeat blood pressure 123/74, respirations 20, pulse 81, temp erature 98.3. HEENT: Head is normocephalic. Eyes: Pupils normal. Conjunctivae are slightly pale. NECK: JVP low. Carotids equal. THORAX: AP diameter normal. LUNGS: Clear. CARDIOVASCULAR: S1, S2, ejection systolic murmur grade III/. No rub. ABDOMEN: Soft, protuberant, no organomegaly. Bowel sounds normal. EXTREMITIES: No clubbing, no cyanosis. LABORATORY DATA: WBC 6.4, hemoglobin 8.4, hematocrit 26.6, platelet 230. Sodium 143, potassium 4.3, BUN 44, creatinine 0.8, sugar 128. AST, ALT, total protein and albumin normal. DIAGNOSES: Chronic atrial fibrillation, diabetes mellitus, hypertension, hyperlipidemia, obesity, 1 vessel coronary artery disease, totally occluded right coronary artery, getting collaterals from the left anterior descending coronary artery, moderate aortic stenosis, chronic obstructive pulmonary dis ease, pulmonary hypertension, severe anemia, status post blood transfusion, history of AV malformati on in the stomach, deconditioning, respiratory tract infection, healthcare related pneumonia, tobacco abuse. PLAN: Clinically, the patient getting physical therapy and she is symptomatic. Will continue presen t therapy and will continue physical therapy. The patient on nadolol 10 mg b.i.d., daptomycin 640 IV daily, aspirin 81 mg p.o. daily, heparin 5000 units subq q. 8 hours, isosorbide mono 60 mg p.o. patricia y, Januvia 50 mg daily, furosemide 40 daily, Protonix 40 daily, Amaryl 4 mg daily, metformin 1000 mg daily. The patient's Coumadin is on hold because the patient is going to OR tomorrow for removal of . We will continue present therapy and will follow with you. Brianna Deng MD cc: [phone] TT: 06/25/2016 19:14:26 Confirmation # [id number] Dictation # [id number] rn
--- NOTE | 2016-06-25 19:49 | PN ---
DATE: 06/25/2016 The patient is a 70-year-old, seen and examined, lying in bed, comfortable, complained of feeling wea k and tired. PHYSICAL EXAMINATION: VITAL SIGNS: She is afebrile, pulse 81, respirations 20, blood pressure 142/80. LUNGS: Bilateral fair airflow, no rhonchi or crackle. HEART: S1, S2 audible. ABDOMEN: Soft, obese, nontender, no rebound, no guarding. NEUROLOGIC: She is awake and alert, tired but able to ambulate with some assistance. EXTREMITIES: Bilateral legs, no edema. Her erythema has improved significantly. LABORATORY EXAMINATION: WBCs 6.4, hemoglobin 8.4, hematocrit 26, platelet 230. PT is 15.9, INR 1.47 . Chemistry: Sodium 143, potassium 4.3, chloride 107, CO2 28, BUN 44, creatinine 0.8, blood sugar o f 128. ASSESSMENT: 1. Status post coagulase-negative Staphylococcus bacteremia, currently on antibiotic. 2. Hospital-acquired pneumonia. 3. Hypertension. 4. Coronary artery disease. 5. Chronic obstructive pulmonary disease. 6. Non-insulin dependent diabetes. PLAN: Currently, her Coumadin is on hold. We will start her on Lovenox until she has her Port-A-Cat h removed tomorrow. Her PICC line has been placed by Dr. Maldonado Barnett yesterday. After Port-A-Cath i s placed, we will restart her on Coumadin and take her off of Lovenox. Edwige Kirby MD cc: [phone] TT: 06/25/2016 19:48:58 Confirmation # [id number] Dictation # [id number] en
[2016-06-25] MEDS: Enoxaparin 120 mg Syringe SC SCH (23:24)
[2016-06-26] MEDS: Pantoprazole 40 mg EC Tab PO SCH (05:49)
[2016-06-26] MEDS: Insulin Reg-MEDIUM-Coverage SC SCH ×4 (06:36→22:40)
[2016-06-26 07:21] LABS: PARTIAL THROMBOPLASTIN TIME 33.4 Seconds (23.7-30.8)
[2016-06-26] MEDS: Enoxaparin 120 mg Syringe SC SCH ×2 (09:36→22:38)
[2016-06-26] MEDS: Potassium Chloride 10 mEq ER Tab PO SCH (09:37)
[2016-06-26 10:00] LABS: INR 1.29 (0.93-1.08)
[2016-06-26] MEDS: Ammonium Lactate 12% Lotion (225 g) EXT SCH ×2 (10:17→17:56)
[2016-06-26] MEDS: Nystatin-Triamcinolone Cream(30 gm) TOP SCH ×2 (10:17→17:56)
[2016-06-26] MEDS: Tiotropium 18 mcg Cap For Inhalation IH SCH (11:02)
--- NOTE | 2016-06-26 11:10 | CP.PCM.PN ---
<Conrad Vega - Last Filed: 06/26/16 11:08> Subjective - Date & Time of Evaluation Date of Evaluation: 06/26/16 Time of Evaluation: 06:50 - Subjective Subjective: 70 year old female patient with PMHx of COPD & CHF was seen at bedside concerning bilateral fissures to feet and xerosis. Patient was sleeping in bed and reports no acute overnight distress. AAO x3. Patient denies any new pedal complaints. Patient denies numbness, burning, tingling in her feet. Patient appears in NAD. Patient's offloading boots appear intact to both feet. Patient denies n/f/c/v/d/sob. Objective - Vital Signs/Intake and Output Vital Signs (last 24 hours): Temp Pulse Resp BP Pulse Ox 98 F 78 18 164/65 H 97 06/26/16 06:00 06/26/16 06:00 06/26/16 06:00 06/26/16 06:00 06/26/16 06:00 - Medications Medications: Current Medications Acetaminophen (Tylenol 325mg Tab) 650 mg PO Q6H PRN; Protocol PRN Reason: Fever >100.4 F Albuterol/Ipratropium (Duoneb 3 Mg/0.5 Mg (3 Ml) Ud) 3 ml IH Q2H PRN; Protocol PRN Reason: Shortness of Breath Aspirin (Ecotrin) 81 mg PO 0800 [facility] PRN Reason: Protocol Last Admin: 06/26/16 09:37 Dose: Not Given Enoxaparin Sodium (Lovenox) 110 mg SC Q12H [facility] PRN Reason: Protocol Last Admin: 06/26/16 09:36 Dose: Not Given Furosemide (Lasix) 40 mg PO DAILY [facility] Last Admin: 06/26/16 11:01 Dose: Not Given Glimepiride (Amaryl) 4 mg PO 0800,1700 [facility] PRN Reason: Protocol Last Admin: 06/26/16 09:37 Dose: Not Given Hydralazine HCl (Apresoline) 50 mg PO BID PRN; Protocol PRN Reason: IF BP>160 Daptomycin 640 mg/ Sodium (Chloride) 100 mls @ 200 mls/hr IV 0600 [facility] PRN Reason: Protocol Stop: 07/02/16 06:01 Last Admin: 06/26/16 05:26 Dose: 200 mls/hr Ibuprofen (Motrin Tab) 600 mg PO BID PRN; Protocol PRN Reason: Pain, moderate (4-7) Last Admin: 06/22/16 14:25 Dose: 600 mg Insulin Human Regular (Humulin R Med) 0 units SC ACHS [facility] PRN Reason: Protocol Last Admin: 06/26/16 06:36 Dose: Not Given Isosorbide Mononitrate (Imdur) 60 mg PO 0630 [facility] PRN Reason: Protocol Last Admin: 06/26/16 05:30 Dose: 60 mg Lactic Acid (Lac-Hydrin 12% Lotion (225 G)) 0 gm EXT BID [facility] PRN Reason: Protocol Last Admin: 06/26/16 10:17 Dose: Not Given Levalbuterol HCl (Xopenex) 1.25 mg IH [id number] PRN; Protocol PRN Reason: Shortness of Breath Metformin HCl (Glucophage) 1,000 mg PO 0800,1700 [facility] PRN Reason: Protocol Last Admin: 06/26/16 09:37 Dose: Not Given Nadolol (Corgard) 10 mg PO BID [facility] PRN Reason: Protocol Last Admin: 06/26/16 11:01 Dose: Not Given Nicotine (Nicoderm Cq) 1 patch TD DAILY [facility] PRN Reason: Protocol Last Admin: 06/26/16 11:02 Dose: Not Given Nystatin/Triamcinolone Acetonide (Nystatin/Triamcinolone Cream) 0 ea TOP BID [facility] PRN Reason: Protocol Last Admin: 06/26/16 10:17 Dose: Not Given Pantoprazole Sodium (Protonix Ec Tab) 40 mg PO 0630 [facility] PRN Reason: Protocol Last Admin: 06/26/16 05:49 Dose: Not Given Potassium Chloride (Klor-Con 10) 10 meq PO 0800 [facility] PRN Reason: Protocol Last Admin: 06/26/16 09:37 Dose: Not Given Sitagliptin Phosphate (Januvia) 50 mg PO DAILY [facility] PRN Reason: Protocol Last Admin: 06/26/16 10:17 Dose: Not Given Tiotropium [place] (Spiriva) 18 mcg IH DAILY [facility] PRN Reason: Protocol Last Admin: 06/26/16 11:02 Dose: Not Given - Labs Labs: 06/25/16 05:00 06/25/16 05:00 PT 13.9 Seconds (9.9-11.8) H 06/26/16 06:50 INR 1.29 (0.93-1.08) H 06/26/16 06:50 APTT 33.4 Seconds (23.7-30.8) H 06/26/16 06:50 - Constitutional Appears: Well, Non-toxic, No Acute Distress - Extremities Exam Additional comments: DERM: No open wound noted. Resolved fissures, no drainage, no acute clinical signs of infection, no erythema, no hyperkeratotic lesions Xerosis noted to bilateral lower extremities VASC: Non-palpable pedal pulses due to nonpittng edema, CFT < 3 sec to all digis , TG wnl NEURO: grossly diminished - Neurological Exam Neurological Exam: Alert, Awake, Oriented x3 - Psychiatric Exam Psychiatric exam: Normal Affect, Normal Mood - Skin Skin Exam: Normal Color, Warm Assessment and Plan - Assessment and Plan (Free Text) Assessment: 70 y/o female seen at bedside for resolved heel fissures bilaterally. Plan: Patient evaluated & treated this AM Labs and chart reviewed. Continue applying Lac-hydrin daily. Continue offloading boots while patient remains in bed Podiatry will continue to monitor while patient remains in house <Deric Henriquez - Last Filed: 06/28/16 08:17> Objective - Vital Signs/Intake and Output Vital Signs (last 24 hours): Temp Pulse Resp BP Pulse Ox 98.8 F 78 18 154/70 H 100 06/27/16 16:00 06/27/16 17:22 06/27/16 16:00 06/27/16 17:22 06/27/16 16:00 - Medications Medications: Current Medications Acetaminophen (Tylenol 325mg Tab) 650 mg PO Q6H PRN; Protocol PRN Reason: Fever >100.4 F Albuterol/Ipratropium (Duoneb 3 Mg/0.5 Mg (3 Ml) Ud) 3 ml IH Q2H PRN; Protocol PRN Reason: Shortness of Breath Aspirin (Ecotrin) 81 mg PO 0800 [facility] PRN Reason: Protocol Last Admin: 06/27/16 07:53 Dose: 81 mg Enoxaparin Sodium (Lovenox) 100 mg SC 0600,1800 [facility] PRN Reason: Protocol Last Admin: 06/28/16 05:18 Dose: 100 mg Furosemide (Lasix) 40 mg PO DAILY [facility] Last Admin: 06/27/16 10:03 Dose: 40 mg Glimepiride (Amaryl) 4 mg PO 0800,1700 [facility] PRN Reason: Protocol Last Admin: 06/27/16 17:22 Dose: 4 mg Hydralazine HCl (Apresoline) 50 mg PO BID PRN; Protocol PRN Reason: IF BP>160 Vancomycin HCl (Vancomycin 1gm) 250 mls @ 167 mls/hr IVPB 0600,1800 [facility] PRN Reason: Protocol Stop: 07/01/16 06:00 Last Admin: 06/28/16 05:17 Dose: 167 mls/hr Ibuprofen (Motrin Tab) 600 mg PO BID PRN; Protocol PRN Reason: Pain, moderate (4-7) Last Admin: 06/22/16 14:25 Dose: 600 mg Insulin Human Regular (Humulin R Med) 0 units SC ACHS [facility] PRN Reason: Protocol Last Admin: 06/28/16 06:47 Dose: Not Given Isosorbide Mononitrate (Imdur) 60 mg PO 0630 [facility] PRN Reason: Protocol Last Admin: 06/28/16 06:20 Dose: 60 mg Lactic Acid (Lac-Hydrin 12% Lotion (225 G)) 0 gm EXT BID [facility] PRN Reason: Protocol Last Admin: 06/27/16 17:26 Dose: 1 applic Levalbuterol HCl (Xopenex) 1.25 mg IH [id number] PRN; Protocol PRN Reason: Shortness of Breath Metformin HCl (Glucophage) 1,000 mg PO 0800,1700 [facility] PRN Reason: Protocol Last Admin: 06/27/16 17:25 Dose: 1,000 mg Nadolol (Corgard) 10 mg PO BID [facility] PRN Reason: Protocol Last Admin: 06/27/16 17:22 Dose: 10 mg Nicotine (Nicoderm Cq) 1 patch TD DAILY [facility] PRN Reason: Protocol Last Admin: 06/27/16 10:03 Dose: 1 patch Nystatin/Triamcinolone Acetonide (Nystatin/Triamcinolone Cream) 0 ea TOP BID [facility] PRN Reason: Protocol Last Admin: 06/27/16 17:27 Dose: 1 appl Pantoprazole Sodium (Protonix Ec Tab) 40 mg PO 0630 [facility] PRN Reason: Protocol Last Admin: 06/28/16 06:20 Dose: 40 mg Potassium Chloride (Klor-Con 10) 10 meq PO 0800 [facility] PRN Reason: Protocol Last Admin: 06/27/16 07:54 Dose: 10 meq Sitagliptin Phosphate (Januvia) 50 mg PO DAILY [facility] PRN Reason: Protocol Last Admin: 06/27/16 10:03 Dose: 50 mg Tiotropium [place] (Spiriva) 18 mcg IH DAILY [facility] PRN Reason: Protocol Last Admin: 06/27/16 10:04 Dose: 18 mcg Warfarin Sodium (Coumadin) 8 mg PO 1800 [facility] PRN Reason: Protocol Last Admin: 06/27/16 17:24 Dose: 8 mg - Labs Labs: 06/25/16 05:00 06/25/16 05:00 PT 12.0 Seconds (9.9-11.8) H 06/28/16 06:56 INR 1.11 (0.93-1.08) H 06/28/16 06:56 APTT 28.9 Seconds (23.7-30.8) 06/28/16 06:56 Attending/Attestation - Attestation I have personally seen and examined this patient.: Yes I have fully participated in the care of the patient.: Yes I have reviewed all pertinent clinical information, including history, physical exam and plan: Yes
[2016-06-26] MEDS ORDERED: HYDROmorphone 0.5 mg/0.5 ml ISec IVP PRN (11:29)
[2016-06-26] MEDS ORDERED: Lactated Ringer's 1,000 ML IV SCH (11:30)
--- NOTE | 2016-06-26 13:06 | PN ---
DATE: 06/26/2016 SUBJECTIVE: The patient is a 70-year-old, seen and examined, lying in bed, seems to be comfortable, had Port-A-Cath removed. No chest pain, no shortness of breath. PHYSICAL EXAMINATION: VITAL SIGNS: She is afebrile, pulse 70, respirations 18, blood pressure 164/65. LUNGS: Bilateral fair airflow, no rhonchi or crackle. HEART: S1, S2 audible, irregular rate control. ABDOMEN: Soft, nontender, obese. No hepatosplenomegaly. NEUROLOGIC: She is awake and alert, communicative. LABORATORY EXAMINATION: PT 13.9, INR 1.29, blood sugar this morning was 72. ASSESSMENT: 1. Coagulase-negative staph bacteremia, probably secondary to hardware of Port-A-Cath, so the patien t had a PICC line placed by Dr. Maldonado Barnett yesterday, had a Port-A-Cath removed today. 2. Chronic obstructive pulmonary disease exacerbation. 3. Hypertension. 4. Noninsulin dependent diabetes. 5. Hyperlipidemia. 6. Coronary artery disease. 7. Congestive gastropathy. 8. Pulmonary hypertension. PLAN: The patient really became hypothermic after anesthesia. That will be watched closely during r ecovery. If patient remains stable, we will make discharge plan according to Dr. Eugene's suggestio n of duration of antibiotic. Edwige Kirby MD cc: [phone] TT: 06/26/2016 13:05:49 Confirmation # [id number] Dictation # [id number] tn
--- NOTE | 2016-06-26 20:00 | PN ---
DATE: 06/26/2016 The patient is in room 313, bed 1. REASON FOR CONSULTATION AND FOLLOWUP: Coronary artery disease, chronic atrial fibrillation, chronic obstructive pulmonary disease, hypertension. HISTORY OF PRESENT ILLNESS: The patient is a 70-year-old, was admitted with shortness of breath, cou gh and congestion to medical floor. The patient also received blood transfusion due to severe anemia . The patient had AV malformation in the stomach. The patient also developed staph bacteremia and p guerline's Port-A-Cath is being removed today. The patient's shortness of breath, cough has improved. The patient has been getting physical therapy without any cardiac symptoms. PHYSICAL EXAMINATION: VITAL SIGNS: Blood pressure is 156/82, yesterday was 123/74, respirations 18, pulse 80, temperature 98.8. HEAD: Normocephalic. EYES: Pupils normal. Conjunctivae slightly pale. NECK: JVP low. Carotid equal. THORAX: AP diameter normal. LUNGS: No significant rales. CARDIOVASCULAR: S1, S2, ejection systolic murmur. No rub. ABDOMEN: Soft, nontender, no organomegaly. EXTREMITIES: No clubbing, no cyanosis. LABORATORY DATA: WBC 6.4, hemoglobin 8.4, hematocrit 26.6, platelet 230. Sodium 143, potassium 4.3, BUN 44, creatinine 0.8, sugar 72. AST, ALT normal. Total protein and albumin normal. Prothrombin time 13.9, INR 1.29. DIAGNOSES: Chronic atrial fibrillation, diabetes mellitus, hypertension, hyperlipidemia, obesity, on e vessel coronary artery disease, totally occluded right coronary artery getting collaterals from lef t anterior descending coronary artery, moderate aortic stenosis, chronic obstructive pulmonary diseas e, pulmonary hypertension, severe anemia, status post blood transfusion, history of AV malformation o f the stomach, deconditioning, respiratory tract infection, healthcare related pneumonia, staph bacte remia, tobacco abuse. PLAN: Due to staph bacteria the patient's Port-A-Cath is being removed today and the patient will co ntinue present therapy. We will continue physical therapy and will follow with you. Brianna Deng MD cc: [phone] TT: 06/26/2016 19:59:17 Confirmation # [id number] Dictation # [id number] jn
[2016-06-27] MEDS: Pantoprazole 40 mg EC Tab PO SCH (06:37)
[2016-06-27] MEDS: Insulin Reg-MEDIUM-Coverage SC SCH ×4 (06:38→22:34)
[2016-06-27] MEDS: Potassium Chloride 10 mEq ER Tab PO SCH (07:54)
--- NOTE | 2016-06-27 08:35 | CP.PCM.PN ---
Subjective - Date & Time of Evaluation Date of Evaluation: 06/27/16 Time of Evaluation: 07:25 - Subjective Subjective: SURGERY NOTE FOR DR MARIA EUGENIA WALKER Pt seen and evaluated at the bedside. Denies pain. Is eating, no N/V. Afebrile overnight. Objective - Vital Signs/Intake and Output Vital Signs (last 24 hours): Temp Pulse Resp BP Pulse Ox 98.8 F 80 18 156/82 H 100 06/26/16 16:00 06/26/16 17:55 06/26/16 16:00 06/26/16 17:55 06/26/16 16:00 Intake and Output: 06/27/16 06/27/16 06:59 18:59 Intake Total 240 Balance 240 - Medications Medications: Current Medications Acetaminophen (Tylenol 325mg Tab) 650 mg PO Q6H PRN; Protocol PRN Reason: Fever >100.4 F Albuterol/Ipratropium (Duoneb 3 Mg/0.5 Mg (3 Ml) Ud) 3 ml IH Q2H PRN; Protocol PRN Reason: Shortness of Breath Aspirin (Ecotrin) 81 mg PO 0800 [facility] PRN Reason: Protocol Last Admin: 06/27/16 07:53 Dose: 81 mg Enoxaparin Sodium (Lovenox) 110 mg SC Q12H [facility] PRN Reason: Protocol Last Admin: 06/26/16 22:38 Dose: 110 mg Furosemide (Lasix) 40 mg PO DAILY [facility] Last Admin: 06/26/16 11:01 Dose: Not Given Glimepiride (Amaryl) 4 mg PO 0800,1700 [facility] PRN Reason: Protocol Last Admin: 06/27/16 07:53 Dose: 4 mg Hydralazine HCl (Apresoline) 50 mg PO BID PRN; Protocol PRN Reason: IF BP>160 Daptomycin 640 mg/ Sodium (Chloride) 100 mls @ 200 mls/hr IV 0600 [facility] PRN Reason: Protocol Stop: 07/02/16 06:01 Last Admin: 06/27/16 05:13 Dose: 200 mls/hr Ibuprofen (Motrin Tab) 600 mg PO BID PRN; Protocol PRN Reason: Pain, moderate (4-7) Last Admin: 06/22/16 14:25 Dose: 600 mg Insulin Human Regular (Humulin R Med) 0 units SC ACHS [facility] PRN Reason: Protocol Last Admin: 06/27/16 06:38 Dose: Not Given Isosorbide Mononitrate (Imdur) 60 mg PO 0630 [facility] PRN Reason: Protocol Last Admin: 06/27/16 06:37 Dose: 60 mg Lactic Acid (Lac-Hydrin 12% Lotion (225 G)) 0 gm EXT BID [facility] PRN Reason: Protocol Last Admin: 06/26/16 17:56 Dose: 1 applic Levalbuterol HCl (Xopenex) 1.25 mg IH [id number] PRN; Protocol PRN Reason: Shortness of Breath Metformin HCl (Glucophage) 1,000 mg PO 0800,1700 [facility] PRN Reason: Protocol Last Admin: 06/27/16 07:53 Dose: 1,000 mg Nadolol (Corgard) 10 mg PO BID [facility] PRN Reason: Protocol Last Admin: 06/26/16 17:55 Dose: 10 mg Nicotine (Nicoderm Cq) 1 patch TD DAILY [facility] PRN Reason: Protocol Last Admin: 06/26/16 11:02 Dose: Not Given Nystatin/Triamcinolone Acetonide (Nystatin/Triamcinolone Cream) 0 ea TOP BID [facility] PRN Reason: Protocol Last Admin: 06/26/16 17:56 Dose: 1 appl Pantoprazole Sodium (Protonix Ec Tab) 40 mg PO 0630 [facility] PRN Reason: Protocol Last Admin: 06/27/16 06:37 Dose: 40 mg Potassium Chloride (Klor-Con 10) 10 meq PO 0800 [facility] PRN Reason: Protocol Last Admin: 06/27/16 07:54 Dose: 10 meq Sitagliptin Phosphate (Januvia) 50 mg PO DAILY [facility] PRN Reason: Protocol Last Admin: 06/26/16 10:17 Dose: Not Given Tiotropium [place] (Spiriva) 18 mcg IH DAILY [facility] PRN Reason: Protocol Last Admin: 06/26/16 11:02 Dose: Not Given - Labs Labs: 06/25/16 05:00 06/25/16 05:00 PT 13.9 Seconds (9.9-11.8) H 06/26/16 06:50 INR 1.29 (0.93-1.08) H 06/26/16 06:50 APTT 33.4 Seconds (23.7-30.8) H 06/26/16 06:50 - Constitutional Appears: No Acute Distress - Head Exam Head Exam: NORMAL INSPECTION - Eye Exam Eye Exam: EOMI - ENT Exam ENT Exam: Mucous Membranes Moist - Respiratory Exam Respiratory Exam: NORMAL BREATHING PATTERN - Cardiovascular Exam Cardiovascular Exam: REGULAR RHYTHM - GI/Abdominal Exam GI & Abdominal Exam: Soft. absent: Tenderness - Neurological Exam Neurological Exam: Alert, Awake - Skin Skin Exam: Normal Color, Warm Additional comments: surgical site on R chest w/o erythema, induration or discharge. Assessment and Plan - Assessment and Plan (Free Text) Assessment: 70F currently undergoing IV antibiotic treatment for recent L upper lobe pneumonia, s/p portacath removal POD#1 for infected portacath Plan: - Continue IV abx - coumadin on board-taper Lovenox/Hold Ibuprofen now Will discuss with attending Dr. Renard Ribeiro PGY1
[2016-06-27] MEDS: Ammonium Lactate 12% Lotion (225 g) EXT SCH ×2 (10:03→17:26)
[2016-06-27] MEDS: Nystatin-Triamcinolone Cream(30 gm) TOP SCH ×2 (10:04→17:27)
[2016-06-27] MEDS: Tiotropium 18 mcg Cap For Inhalation IH SCH (10:04)
[2016-06-27] MEDS ORDERED: Enoxaparin 100 mg Syringe SC SCH (12:00)
--- NOTE | 2016-06-27 14:57 | CP.PCM.PCO ---
Physician Communication Note - Physician Communication Note Physician Communication Note: Rx coumadin-taper Lovenox/Hold Ibuprofen now
[2016-06-27] MEDS: Enoxaparin 100 mg Syringe SC SCH (17:27)
[2016-06-27] MEDS: Vancomycin 1gm in NS 250ml 250 ML IVPB SCH (17:36)
[2016-06-27] MEDS: Enoxaparin 120 mg Syringe SC SCH (17:36)
[2016-06-27] MEDS ORDERED: Vancomycin 1gm in NS 250ml 250 ML IVPB SCH (18:00)
[2016-06-27] MEDS ORDERED: Enoxaparin 120 mg Syringe SC SCH (18:00)
--- NOTE | 2016-06-27 19:02 | PN ---
DATE: 06/27/2016 The patient is 70 years old, seen and examined, sitting in a chair, comfortable. PHYSICAL EXAMINATION: VITAL SIGNS: The patient is afebrile, pulse 70, respirations 18, blood pressure 154/70. LUNGS: Bilateral fair airflow, no rhonchi or crackle. HEART: S1, S2 audible. ABDOMEN: Soft, obese, nontender, no rebound, no guarding. NEUROLOGIC: The patient is awake and alert, communicative. EXTREMITIES: Bilateral leg, no edema. LABORATORY: WBC 6.4, hemoglobin 8.4, hematocrit 26, platelet 230. PT 13.9, INR 1.29. Chemistry: B lood sugar is . Blood cultures are negative. ASSESSMENT: 1. Status post Port-A-Cath removal secondary to persistent bacteremia on 3 different admissions. 2. Community-acquired pneumonia, improving. 3. Chronic obstructive pulmonary disease. 4. Hypertension. 5. Coronary artery disease. 6. Congestive gastropathy. PLAN: Will give her 8 mg of Coumadin today. Will continue her on Lovenox. I will monitor her blood sugar and I will reevaluate the patient in a.m. Edwige Kirby MD cc: [phone] TT: 06/27/2016 19:02:27 Confirmation # [id number] Dictation # [id number]
--- NOTE | 2016-06-27 23:54 | CP.PCM.PN ---
Subjective - Date & Time of Evaluation Date of Evaluation: 06/27/16 Time of Evaluation: 10:05 - Subjective Subjective: Comfortable in bed, not in distress. No fevers overnight, no pain in the chest, no nausea. Objective - Vital Signs/Intake and Output Vital Signs (last 24 hours): Temp Pulse Resp BP Pulse Ox 98.8 F 78 18 154/70 H 100 06/27/16 16:00 06/27/16 17:22 06/27/16 16:00 06/27/16 17:22 06/27/16 16:00 - Medications Medications: Current Medications Acetaminophen (Tylenol 325mg Tab) 650 mg PO Q6H PRN; Protocol PRN Reason: Fever >100.4 F Albuterol/Ipratropium (Duoneb 3 Mg/0.5 Mg (3 Ml) Ud) 3 ml IH Q2H PRN; Protocol PRN Reason: Shortness of Breath Aspirin (Ecotrin) 81 mg PO 0800 [facility] PRN Reason: Protocol Last Admin: 06/27/16 07:53 Dose: 81 mg Enoxaparin Sodium (Lovenox) 100 mg SC 0600,1800 [facility] PRN Reason: Protocol Last Admin: 06/27/16 17:27 Dose: 100 mg Furosemide (Lasix) 40 mg PO DAILY [facility] Last Admin: 06/27/16 10:03 Dose: 40 mg Glimepiride (Amaryl) 4 mg PO 0800,1700 [facility] PRN Reason: Protocol Last Admin: 06/27/16 17:22 Dose: 4 mg Hydralazine HCl (Apresoline) 50 mg PO BID PRN; Protocol PRN Reason: IF BP>160 Vancomycin HCl (Vancomycin 1gm) 250 mls @ 167 mls/hr IVPB 0600,1800 [facility] PRN Reason: Protocol Stop: 07/01/16 06:00 Last Admin: 06/27/16 17:36 Dose: 167 mls/hr Ibuprofen (Motrin Tab) 600 mg PO BID PRN; Protocol PRN Reason: Pain, moderate (4-7) Last Admin: 06/22/16 14:25 Dose: 600 mg Insulin Human Regular (Humulin R Med) 0 units SC ACHS [facility] PRN Reason: Protocol Last Admin: 06/27/16 22:34 Dose: Not Given Isosorbide Mononitrate (Imdur) 60 mg PO 0630 [facility] PRN Reason: Protocol Last Admin: 06/27/16 06:37 Dose: 60 mg Lactic Acid (Lac-Hydrin 12% Lotion (225 G)) 0 gm EXT BID [facility] PRN Reason: Protocol Last Admin: 06/27/16 17:26 Dose: 1 applic Levalbuterol HCl (Xopenex) 1.25 mg IH [id number] PRN; Protocol PRN Reason: Shortness of Breath Metformin HCl (Glucophage) 1,000 mg PO 0800,1700 [facility] PRN Reason: Protocol Last Admin: 06/27/16 17:25 Dose: 1,000 mg Nadolol (Corgard) 10 mg PO BID [facility] PRN Reason: Protocol Last Admin: 06/27/16 17:22 Dose: 10 mg Nicotine (Nicoderm Cq) 1 patch TD DAILY [facility] PRN Reason: Protocol Last Admin: 06/27/16 10:03 Dose: 1 patch Nystatin/Triamcinolone Acetonide (Nystatin/Triamcinolone Cream) 0 ea TOP BID [facility] PRN Reason: Protocol Last Admin: 06/27/16 17:27 Dose: 1 appl Pantoprazole Sodium (Protonix Ec Tab) 40 mg PO 0630 [facility] PRN Reason: Protocol Last Admin: 06/27/16 06:37 Dose: 40 mg Potassium Chloride (Klor-Con 10) 10 meq PO 0800 [facility] PRN Reason: Protocol Last Admin: 06/27/16 07:54 Dose: 10 meq Sitagliptin Phosphate (Januvia) 50 mg PO DAILY [facility] PRN Reason: Protocol Last Admin: 06/27/16 10:03 Dose: 50 mg Tiotropium [place] (Spiriva) 18 mcg IH DAILY [facility] PRN Reason: Protocol Last Admin: 06/27/16 10:04 Dose: 18 mcg Warfarin Sodium (Coumadin) 8 mg PO 1800 [facility] PRN Reason: Protocol Last Admin: 06/27/16 17:24 Dose: 8 mg - Labs Labs: 06/25/16 05:00 06/25/16 05:00 PT 13.9 Seconds (9.9-11.8) H 06/26/16 06:50 INR 1.29 (0.93-1.08) H 06/26/16 06:50 APTT 33.4 Seconds (23.7-30.8) H 04/06/17 06:50 - Constitutional Appears: Non-toxic, No Acute Distress - Head Exam Head Exam: NORMAL INSPECTION - Neck Exam Neck Exam: absent: Lymphadenopathy, Meningismus - Respiratory Exam Respiratory Exam: Decreased Breath Sounds - Cardiovascular Exam Cardiovascular Exam: +S1, +S2 - GI/Abdominal Exam GI & Abdominal Exam: Soft. absent: Tenderness Assessment and Plan - Assessment and Plan (Free Text) Plan: Assessment S/P Sepsis with acute hypoxic respiratory failure secondary to left-sided healthcare-associated pneumonia with possible gram positive cocci and/or gram negative bacilli, clinically improved and S/P treatment as well as sepsis from persistent methicillin-resistant coagulase negative staph bacteremia , probably port infection S/P removal of the port POD #1 history of Group G Strep bacteremia history of E. coli UTI history of healthcare-associated pneumonia acute renal failure obesity with BMI 38 CAD GERD arthritis history of bilateral knee replacements chronic CHF COPD DM history of breast CA History of Strep bovis bacteremia (2012) S/P Port-a-cath placement Plan switched Daptomycin back to Vancomycin (day 2 since surgery, to complete a 5-7 day course
[2016-06-28] MEDS: Vancomycin 1gm in NS 250ml 250 ML IVPB SCH ×2 (05:17→18:50)
[2016-06-28] MEDS: Enoxaparin 100 mg Syringe SC SCH ×2 (05:18→18:52)
[2016-06-28] MEDS: Pantoprazole 40 mg EC Tab PO SCH (06:20)
[2016-06-28] MEDS: Insulin Reg-MEDIUM-Coverage SC SCH ×4 (06:47→22:20)
[2016-06-28 07:35] LABS: INR 1.11 (0.93-1.08); PARTIAL THROMBOPLASTIN TIME 28.9 Seconds (23.7-30.8)
[2016-06-28] MEDS: Potassium Chloride 10 mEq ER Tab PO SCH (08:45)
--- NOTE | 2016-06-28 09:04 | CP.PCM.PN ---
<Merle Mckeon - Last Filed: 06/28/16 09:00> Subjective - Date & Time of Evaluation Date of Evaluation: 06/28/16 Time of Evaluation: 09:00 - Subjective Subjective: Patient seen and evaluated at bedside this morning, patient AAOx3, NAD. Patient denies any acute complaints at this time. Objective - Vital Signs/Intake and Output Vital Signs (last 24 hours): Temp Pulse Resp BP Pulse Ox 98.8 F 78 18 154/70 H 100 06/27/16 16:00 06/27/16 17:22 06/27/16 16:00 06/27/16 17:22 06/27/16 16:00 - Medications Medications: Current Medications Acetaminophen (Tylenol 325mg Tab) 650 mg PO Q6H PRN; Protocol PRN Reason: Fever >100.4 F Albuterol/Ipratropium (Duoneb 3 Mg/0.5 Mg (3 Ml) Ud) 3 ml IH Q2H PRN; Protocol PRN Reason: Shortness of Breath Aspirin (Ecotrin) 81 mg PO 0800 [facility] PRN Reason: Protocol Last Admin: 06/28/16 08:48 Dose: 81 mg Enoxaparin Sodium (Lovenox) 100 mg SC 0600,1800 [facility] PRN Reason: Protocol Last Admin: 06/28/16 05:18 Dose: 100 mg Furosemide (Lasix) 40 mg PO DAILY [facility] Last Admin: 06/27/16 10:03 Dose: 40 mg Glimepiride (Amaryl) 4 mg PO 0800,1700 [facility] PRN Reason: Protocol Last Admin: 06/28/16 08:48 Dose: 4 mg Hydralazine HCl (Apresoline) 50 mg PO BID PRN; Protocol PRN Reason: IF BP>160 Vancomycin HCl (Vancomycin 1gm) 250 mls @ 167 mls/hr IVPB 0600,1800 [facility] PRN Reason: Protocol Stop: 07/01/16 06:00 Last Admin: 06/28/16 05:17 Dose: 167 mls/hr Ibuprofen (Motrin Tab) 600 mg PO BID PRN; Protocol PRN Reason: Pain, moderate (4-7) Last Admin: 06/22/16 14:25 Dose: 600 mg Insulin Human Regular (Humulin R Med) 0 units SC ACHS [facility] PRN Reason: Protocol Last Admin: 06/28/16 06:47 Dose: Not Given Isosorbide Mononitrate (Imdur) 60 mg PO 0630 [facility] PRN Reason: Protocol Last Admin: 06/28/16 06:20 Dose: 60 mg Lactic Acid (Lac-Hydrin 12% Lotion (225 G)) 0 gm EXT BID [facility] PRN Reason: Protocol Last Admin: 06/27/16 17:26 Dose: 1 applic Levalbuterol HCl (Xopenex) 1.25 mg IH [id number] PRN; Protocol PRN Reason: Shortness of Breath Metformin HCl (Glucophage) 1,000 mg PO 0800,1700 [facility] PRN Reason: Protocol Last Admin: 06/28/16 08:47 Dose: 1,000 mg Nadolol (Corgard) 10 mg PO BID [facility] PRN Reason: Protocol Last Admin: 06/27/16 17:22 Dose: 10 mg Nicotine (Nicoderm Cq) 1 patch TD DAILY [facility] PRN Reason: Protocol Last Admin: 06/27/16 10:03 Dose: 1 patch Nystatin/Triamcinolone Acetonide (Nystatin/Triamcinolone Cream) 0 ea TOP BID [facility] PRN Reason: Protocol Last Admin: 06/27/16 17:27 Dose: 1 appl Pantoprazole Sodium (Protonix Ec Tab) 40 mg PO 0630 [facility] PRN Reason: Protocol Last Admin: 06/28/16 06:20 Dose: 40 mg Potassium Chloride (Klor-Con 10) 10 meq PO 0800 [facility] PRN Reason: Protocol Last Admin: 06/27/16 07:54 Dose: 10 meq Sitagliptin Phosphate (Januvia) 50 mg PO DAILY [facility] PRN Reason: Protocol Last Admin: 06/27/16 10:03 Dose: 50 mg Tiotropium [place] (Spiriva) 18 mcg IH DAILY [facility] PRN Reason: Protocol Last Admin: 06/27/16 10:04 Dose: 18 mcg Warfarin Sodium (Coumadin) 8 mg PO 1800 [facility] PRN Reason: Protocol Last Admin: 06/27/16 17:24 Dose: 8 mg - Labs Labs: 06/25/16 05:00 06/25/16 05:00 PT 12.0 Seconds (9.9-11.8) H 06/28/16 06:56 INR 1.11 (0.93-1.08) H 06/28/16 06:56 APTT 28.9 Seconds (23.7-30.8) 06/28/16 06:56 - Constitutional Appears: Well, Non-toxic, No Acute Distress - Neurological Exam Neurological Exam: Oriented x3 - Psychiatric Exam Psychiatric exam: Normal Affect, Normal Mood - Additional Findings Additional findings: DERMATOLOGIC: Diffuse xerosis of bilateral lower extremities present. There are no open lesions or rashes. skin color is normal, no drainage or erythema present. Nails are elongated and thickened x10. VASCULAR: DP/PT pulses 2/4, [employer]<3 seconds, skin temperature is normal b/l. Mild diffuse edema of the lower extremities is present. NEUROLOGIC: Gross sensation intact, motor function intact ORTHOPEDIC: Mild pain on palpation to the lower extremities Assessment and Plan - Assessment and Plan (Free Text) Assessment: 70 year old female with bilateral lower extremity xerosis Plan: Patient seen and evaluated, d/w attending Dr. Henriquez Applied Lac-hydrin cream to bilateral lower extremities Podiatry will continue to follow while in house <Deric Henriquez - Last Filed: 06/28/16 12:02> Objective - Vital Signs/Intake and Output Vital Signs (last 24 hours): Temp Pulse Resp BP Pulse Ox 98.8 F 84 18 119/62 100 06/27/16 16:00 06/28/16 10:42 06/27/16 16:00 06/28/16 10:43 06/27/16 16:00 - Medications Medications: Current Medications Acetaminophen (Tylenol 325mg Tab) 650 mg PO Q6H PRN; Protocol PRN Reason: Fever >100.4 F Albuterol/Ipratropium (Duoneb 3 Mg/0.5 Mg (3 Ml) Ud) 3 ml IH Q2H PRN; Protocol PRN Reason: Shortness of Breath Aspirin (Ecotrin) 81 mg PO 0800 [facility] PRN Reason: Protocol Last Admin: 06/28/16 08:48 Dose: 81 mg Enoxaparin Sodium (Lovenox) 100 mg SC 0600,1800 [facility] PRN Reason: Protocol Last Admin: 06/28/16 05:18 Dose: 100 mg Furosemide (Lasix) 40 mg PO DAILY [facility] Last Admin: 06/28/16 10:43 Dose: 40 mg Glimepiride (Amaryl) 4 mg PO 0800,1700 [facility] PRN Reason: Protocol Last Admin: 06/28/16 08:48 Dose: 4 mg Hydralazine HCl (Apresoline) 50 mg PO BID PRN; Protocol PRN Reason: IF BP>160 Last Admin: 06/28/16 10:41 Dose: 50 mg Vancomycin HCl (Vancomycin 1gm) 250 mls @ 167 mls/hr IVPB 0600,1800 [facility] PRN Reason: Protocol Stop: 07/01/16 06:00 Last Admin: 06/28/16 05:17 Dose: 167 mls/hr Ibuprofen (Motrin Tab) 600 mg PO BID PRN; Protocol PRN Reason: Pain, moderate (4-7) Last Admin: 06/22/16 14:25 Dose: 600 mg Insulin Human Regular (Humulin R Med) 0 units SC ACHS [facility] PRN Reason: Protocol Last Admin: 06/28/16 06:47 Dose: Not Given Isosorbide Mononitrate (Imdur) 60 mg PO 0630 [facility] PRN Reason: Protocol Last Admin: 06/28/16 06:20 Dose: 60 mg Lactic Acid (Lac-Hydrin 12% Lotion (225 G)) 0 gm EXT BID [facility] PRN Reason: Protocol Last Admin: 06/28/16 10:44 Dose: 1 applic Levalbuterol HCl (Xopenex) 1.25 mg IH [id number] PRN; Protocol PRN Reason: Shortness of Breath Metformin HCl (Glucophage) 1,000 mg PO 0800,1700 [facility] PRN Reason: Protocol Last Admin: 06/28/16 08:47 Dose: 1,000 mg Nadolol (Corgard) 10 mg PO BID [facility] PRN Reason: Protocol Last Admin: 06/28/16 10:42 Dose: 10 mg Nicotine (Nicoderm Cq) 1 patch TD DAILY [facility] PRN Reason: Protocol Last Admin: 06/28/16 10:43 Dose: 1 patch Nystatin/Triamcinolone Acetonide (Nystatin/Triamcinolone Cream) 0 ea TOP BID [facility] PRN Reason: Protocol Last Admin: 06/28/16 10:44 Dose: 1 appl Pantoprazole Sodium (Protonix Ec Tab) 40 mg PO 0630 [facility] PRN Reason: Protocol Last Admin: 06/28/16 06:20 Dose: 40 mg Potassium Chloride (Klor-Con 10) 10 meq PO 0800 [facility] PRN Reason: Protocol Last Admin: 06/28/16 08:45 Dose: 10 meq Sitagliptin Phosphate (Januvia) 50 mg PO DAILY [facility] PRN Reason: Protocol Last Admin: 06/28/16 10:40 Dose: 50 mg Tiotropium [place] (Spiriva) 18 mcg IH DAILY [facility] PRN Reason: Protocol Last Admin: 06/28/16 10:43 Dose: 18 mcg Warfarin Sodium (Coumadin) 10 mg PO 1800 [facility] PRN Reason: Protocol - Labs Labs: 06/25/16 05:00 06/25/16 05:00 PT 12.0 Seconds (9.9-11.8) H 06/28/16 06:56 INR 1.11 (0.93-1.08) H 06/28/16 06:56 APTT 28.9 Seconds (23.7-30.8) 06/28/16 06:56 Attending/Attestation - Attestation I have personally seen and examined this patient.: Yes I have fully participated in the care of the patient.: Yes I have reviewed all pertinent clinical information, including history, physical exam and plan: Yes
--- NOTE | 2016-06-28 10:36 | CP.PCM.PN ---
Subjective - Date & Time of Evaluation Date of Evaluation: 06/28/16 Time of Evaluation: 09:00 - Subjective Subjective: GENERAL SURGERY PROGRESS NOTE FOR DR. WALKER Patient seen and examined in TCU. She states that she is tired but denies pain. She is tolerating her diet. Objective - Vital Signs/Intake and Output Vital Signs (last 24 hours): Temp Pulse Resp BP Pulse Ox 98.8 F 78 18 154/70 H 100 06/27/16 16:00 06/27/16 17:22 06/27/16 16:00 06/27/16 17:22 06/27/16 16:00 - Medications Medications: Current Medications Acetaminophen (Tylenol 325mg Tab) 650 mg PO Q6H PRN; Protocol PRN Reason: Fever >100.4 F Albuterol/Ipratropium (Duoneb 3 Mg/0.5 Mg (3 Ml) Ud) 3 ml IH Q2H PRN; Protocol PRN Reason: Shortness of Breath Aspirin (Ecotrin) 81 mg PO 0800 [facility] PRN Reason: Protocol Last Admin: 06/28/16 08:48 Dose: 81 mg Enoxaparin Sodium (Lovenox) 100 mg SC 0600,1800 [facility] PRN Reason: Protocol Last Admin: 06/28/16 05:18 Dose: 100 mg Furosemide (Lasix) 40 mg PO DAILY [facility] Last Admin: 06/27/16 10:03 Dose: 40 mg Glimepiride (Amaryl) 4 mg PO 0800,1700 [facility] PRN Reason: Protocol Last Admin: 06/28/16 08:48 Dose: 4 mg Hydralazine HCl (Apresoline) 50 mg PO BID PRN; Protocol PRN Reason: IF BP>160 Vancomycin HCl (Vancomycin 1gm) 250 mls @ 167 mls/hr IVPB 0600,1800 [facility] PRN Reason: Protocol Stop: 07/01/16 06:00 Last Admin: 06/28/16 05:17 Dose: 167 mls/hr Ibuprofen (Motrin Tab) 600 mg PO BID PRN; Protocol PRN Reason: Pain, moderate (4-7) Last Admin: 06/22/16 14:25 Dose: 600 mg Insulin Human Regular (Humulin R Med) 0 units SC ACHS [facility] PRN Reason: Protocol Last Admin: 06/28/16 06:47 Dose: Not Given Isosorbide Mononitrate (Imdur) 60 mg PO 0630 [facility] PRN Reason: Protocol Last Admin: 06/28/16 06:20 Dose: 60 mg Lactic Acid (Lac-Hydrin 12% Lotion (225 G)) 0 gm EXT BID [facility] PRN Reason: Protocol Last Admin: 06/27/16 17:26 Dose: 1 applic Levalbuterol HCl (Xopenex) 1.25 mg IH [id number] PRN; Protocol PRN Reason: Shortness of Breath Metformin HCl (Glucophage) 1,000 mg PO 0800,1700 [facility] PRN Reason: Protocol Last Admin: 06/28/16 08:47 Dose: 1,000 mg Nadolol (Corgard) 10 mg PO BID [facility] PRN Reason: Protocol Last Admin: 06/27/16 17:22 Dose: 10 mg Nicotine (Nicoderm Cq) 1 patch TD DAILY [facility] PRN Reason: Protocol Last Admin: 06/27/16 10:03 Dose: 1 patch Nystatin/Triamcinolone Acetonide (Nystatin/Triamcinolone Cream) 0 ea TOP BID [facility] PRN Reason: Protocol Last Admin: 06/27/16 17:27 Dose: 1 appl Pantoprazole Sodium (Protonix Ec Tab) 40 mg PO 0630 [facility] PRN Reason: Protocol Last Admin: 06/28/16 06:20 Dose: 40 mg Potassium Chloride (Klor-Con 10) 10 meq PO 0800 [facility] PRN Reason: Protocol Last Admin: 06/27/16 07:54 Dose: 10 meq Sitagliptin Phosphate (Januvia) 50 mg PO DAILY [facility] PRN Reason: Protocol Last Admin: 06/27/16 10:03 Dose: 50 mg Tiotropium [place] (Spiriva) 18 mcg IH DAILY [facility] PRN Reason: Protocol Last Admin: 06/27/16 10:04 Dose: 18 mcg Warfarin Sodium (Coumadin) 8 mg PO 1800 [facility] PRN Reason: Protocol Last Admin: 06/27/16 17:24 Dose: 8 mg - Labs Labs: 06/25/16 05:00 06/25/16 05:00 PT 12.0 Seconds (9.9-11.8) H 06/28/16 06:56 INR 1.11 (0.93-1.08) H 06/28/16 06:56 APTT 28.9 Seconds (23.7-30.8) 06/28/16 06:56 - Constitutional Appears: Non-toxic, No Acute Distress - Respiratory Exam Respiratory Exam: NORMAL BREATHING PATTERN. absent: Respiratory Distress Additional comments: Right portacath site: dressing clean/dry/intact. Removed. Dermabond in place - Cardiovascular Exam Cardiovascular Exam: +S1, +S2 - Neurological Exam Neurological Exam: Alert, Awake, Oriented x3 - Psychiatric Exam Psychiatric exam: Normal Affect, Normal Mood - Skin Skin Exam: Normal Color, Warm Assessment and Plan - Assessment and Plan (Free Text) Plan: 70yo F with infected portacath s/p removal POD#2 - Afebrile, VSS - Dressing clean/dry/intact, removed, dermabond in place - INR 1.11 today, PT 12, PTT 28.9 - On Warfarin and Lovenox - Further recs per Dr. Renard Andrea PGY-2
[2016-06-28] MEDS: Tiotropium 18 mcg Cap For Inhalation IH SCH (10:43)
[2016-06-28] MEDS: Ammonium Lactate 12% Lotion (225 g) EXT SCH ×2 (10:44→18:51)
[2016-06-28] MEDS: Nystatin-Triamcinolone Cream(30 gm) TOP SCH ×2 (10:44→18:55)
--- NOTE | 2016-06-28 11:55 | PN ---
DATE: 06/28/2016 The patient is a 70-year-old, seen and examined. Doing well, sitting in chair. Had Port-A-Cath gibran ernie because of recurrent bacteremia. On examination, the patient is awake and alert, communicative. VITAL SIGNS: She is afebrile, pulse 84, respirations 18, blood pressure 119/62. LUNGS: Bilateral fair airflow. No rhonchi or crackle. HEART: S1, S2 audible, irregular rate control. ABDOMEN: Soft, nontender, no rebound, no guarding. NEUROLOGICALLY: The patient is awake and alert, communicative. LABORATORY EXAMINATION: Her PT is 12.0, INR 1.11. Chemistry: Blood sugar is 172. ASSESSMENT AND PLAN: 1. Status post Port-A-Cath removal. 2. Status post left arm PICC line placement. 3. Congestive gastropathy. 4. Chronic obstructive pulmonary disease. 5. Non-insulin dependent diabetes. PLAN: Will continue patient on Lovenox and give 10 mg of Coumadin today, and will monitor blood suga r. Will reevaluate the patient in a.m. Follow up on PT/INR and CBC in a.m. Edwige Kirby MD cc: [phone] TT: 06/28/2016 11:53:59 Confirmation # [id number] Dictation # [id number] [email or web address]
[2016-06-28 14:03] LABS: ADD MANUAL DIFF? NO
[2016-06-28 14:05] LABS: BASO # 0.02 K/mm3 (0.0-2.0); BASO % 0.2 % (0.0-3.0); EOS # 0.1 (0.0-0.7); EOS % 1.4 % (1.5-5.0); GRAN # 6.56 (1.4-6.5); GRAN % 74.8 % (50.0-68.0); HEMATOCRIT 27.8 % (36.0-48.0); LYMPH # 1.4 (1.2-3.4); LYMPH % 15.8 % (22.0-35.0); MEAN CELL VOLUME 86.9 fL (80.0-105.0); MEAN CORPUSCULAR HEMOGLOBIN 27.5 pg (25.0-35.0); MEAN CORPUSCULAR HGB CONC 31.7 g/dl (31.0-37.0); MEAN PLATELET VOLUME 9.5 fl (7.0-11.0); MONO # 0.7 (0.1-0.6); MONO % 7.8 % (1.0-6.0); PLATELET COUNT 263 10^3/uL (120.0-450.0); RED CELL DISTRIBUTION WIDTH 15.7 % (11.5-14.5); WHITE BLOOD COUNT 8.8 10^3/ul (4.5-11.0)
[2016-06-28 14:16] LABS: ALB/GLOB RATIO 1.2 (1.1-1.8); ALKALINE PHOSPHATASE 69 U/L (38-133); ALT/SGPT 29 U/L (7-56); AST/SGOT 22 U/L (15-39); BILIRUBIN,TOTAL 0.5 mg/dL (0.2-1.3); BLOOD UREA NITROGEN 23 mg/dL (7-21); CALCIUM 9.8 mg/dL (8.4-10.5); CARBON DIOXIDE 25 mmol/L (21-33); CHLORIDE 104 mmol/L (98-107); GFR AFRICAN-AMERICAN > 60; GLUCOSE,RANDOM 127 mg/dL (70-110); POTASSIUM 4.2 mmol/L (3.6-5.0); SODIUM 140 mmol/L (132-148); TOTAL PROTEIN 7.1 g/dL (5.8-8.3)
--- NOTE | 2016-06-28 14:30 | CP.PCM.PN ---
Subjective - Date & Time of Evaluation Date of Evaluation: 06/28/16 Time of Evaluation: 13:45 - Subjective Subjective: Comfortable on a chair, no fevers overnight, no diarrhea. Objective - Vital Signs/Intake and Output Vital Signs (last 24 hours): Temp Pulse Resp BP Pulse Ox 98.8 F 84 18 119/62 100 06/27/16 16:00 06/28/16 10:42 06/27/16 16:00 06/28/16 10:43 06/27/16 16:00 - Medications Medications: Current Medications Acetaminophen (Tylenol 325mg Tab) 650 mg PO Q6H PRN; Protocol PRN Reason: Fever >100.4 F Albuterol/Ipratropium (Duoneb 3 Mg/0.5 Mg (3 Ml) Ud) 3 ml IH Q2H PRN; Protocol PRN Reason: Shortness of Breath Aspirin (Ecotrin) 81 mg PO 0800 [facility] PRN Reason: Protocol Last Admin: 06/28/16 08:48 Dose: 81 mg Enoxaparin Sodium (Lovenox) 100 mg SC 0600,1800 [facility] PRN Reason: Protocol Last Admin: 06/28/16 05:18 Dose: 100 mg Furosemide (Lasix) 40 mg PO DAILY [facility] Last Admin: 06/28/16 10:43 Dose: 40 mg Glimepiride (Amaryl) 4 mg PO 0800,1700 [facility] PRN Reason: Protocol Last Admin: 06/28/16 08:48 Dose: 4 mg Hydralazine HCl (Apresoline) 50 mg PO BID PRN; Protocol PRN Reason: IF BP>160 Last Admin: 06/28/16 10:41 Dose: 50 mg Vancomycin HCl (Vancomycin 1gm) 250 mls @ 167 mls/hr IVPB 0600,1800 [facility] PRN Reason: Protocol Stop: 07/01/16 06:00 Last Admin: 06/28/16 05:17 Dose: 167 mls/hr Ibuprofen (Motrin Tab) 600 mg PO BID PRN; Protocol PRN Reason: Pain, moderate (4-7) Last Admin: 06/22/16 14:25 Dose: 600 mg Insulin Human Regular (Humulin R Med) 0 units SC ACHS [facility] PRN Reason: Protocol Last Admin: 06/28/16 06:47 Dose: Not Given Isosorbide Mononitrate (Imdur) 60 mg PO 0630 [facility] PRN Reason: Protocol Last Admin: 06/28/16 06:20 Dose: 60 mg Lactic Acid (Lac-Hydrin 12% Lotion (225 G)) 0 gm EXT BID [facility] PRN Reason: Protocol Last Admin: 06/28/16 10:44 Dose: 1 applic Levalbuterol HCl (Xopenex) 1.25 mg IH [id number] PRN; Protocol PRN Reason: Shortness of Breath Metformin HCl (Glucophage) 1,000 mg PO 0800,1700 [facility] PRN Reason: Protocol Last Admin: 06/28/16 08:47 Dose: 1,000 mg Nadolol (Corgard) 10 mg PO BID [facility] PRN Reason: Protocol Last Admin: 06/28/16 10:42 Dose: 10 mg Nicotine (Nicoderm Cq) 1 patch TD DAILY [facility] PRN Reason: Protocol Last Admin: 06/28/16 10:43 Dose: 1 patch Nystatin/Triamcinolone Acetonide (Nystatin/Triamcinolone Cream) 0 ea TOP BID [facility] PRN Reason: Protocol Last Admin: 06/28/16 10:44 Dose: 1 appl Pantoprazole Sodium (Protonix Ec Tab) 40 mg PO 0630 [facility] PRN Reason: Protocol Last Admin: 06/28/16 06:20 Dose: 40 mg Potassium Chloride (Klor-Con 10) 10 meq PO 0800 [facility] PRN Reason: Protocol Last Admin: 06/28/16 08:45 Dose: 10 meq Sitagliptin Phosphate (Januvia) 50 mg PO DAILY [facility] PRN Reason: Protocol Last Admin: 06/28/16 10:40 Dose: 50 mg Tiotropium [place] (Spiriva) 18 mcg IH DAILY [facility] PRN Reason: Protocol Last Admin: 06/28/16 10:43 Dose: 18 mcg Warfarin Sodium (Coumadin) 10 mg PO 1800 [facility] PRN Reason: Protocol - Labs Labs: 06/28/16 14:00 06/28/16 14:00 PT 12.0 Seconds (9.9-11.8) H 06/28/16 06:56 INR 1.11 (0.93-1.08) H 06/28/16 06:56 APTT 28.9 Seconds (23.7-30.8) 06/28/16 06:56 - Constitutional Appears: Non-toxic, No Acute Distress - Head Exam Head Exam: NORMAL INSPECTION - ENT Exam ENT Exam: Mucous Membranes Moist - Neck Exam Neck Exam: absent: Lymphadenopathy, Meningismus - Respiratory Exam Respiratory Exam: Decreased Breath Sounds - Cardiovascular Exam Cardiovascular Exam: +S1, +S2 - GI/Abdominal Exam GI & Abdominal Exam: Soft. absent: Tenderness Assessment and Plan - Assessment and Plan (Free Text) Plan: Assessment S/P Sepsis with acute hypoxic respiratory failure secondary to left-sided healthcare-associated pneumonia with possible gram positive cocci and/or gram negative bacilli, clinically improved and S/P treatment as well as sepsis from persistent methicillin-resistant coagulase negative staph bacteremia , probably port infection S/P removal of the port POD #2 history of Group G Strep bacteremia history of E. coli UTI history of healthcare-associated pneumonia acute renal failure obesity with BMI 38 CAD GERD arthritis history of bilateral knee replacements chronic CHF COPD DM history of breast CA History of Strep bovis bacteremia (2012) S/P Port-a-cath placement Plan continue Vancomycin (day 3 since surgery, to complete a 5-7 day course - follow up BUN/Crea today) Will follow clinically
[2016-06-29] MEDS: Vancomycin 1gm in NS 250ml 250 ML IVPB SCH ×2 (05:38→17:57)
[2016-06-29] MEDS: Enoxaparin 100 mg Syringe SC SCH ×2 (05:38→17:56)
[2016-06-29] MEDS: Pantoprazole 40 mg EC Tab PO SCH (05:39)
[2016-06-29] MEDS: Insulin Reg-MEDIUM-Coverage SC SCH ×4 (08:55→21:46)
[2016-06-29] MEDS: Potassium Chloride 10 mEq ER Tab PO SCH (08:55)
[2016-06-29 09:03] LABS: ADD MANUAL DIFF? NO
[2016-06-29 09:14] LABS: BASO # 0.01 K/mm3 (0.0-2.0); BASO % 0.1 % (0.0-3.0); EOS # 0.1 (0.0-0.7); EOS % 1.7 % (1.5-5.0); GRAN # 6.11 (1.4-6.5); HEMATOCRIT 26.5 % (36.0-48.0); LYMPH # 1.4 (1.2-3.4); LYMPH % 16.9 % (22.0-35.0); MEAN CORPUSCULAR HEMOGLOBIN 27.9 pg (25.0-35.0); MEAN CORPUSCULAR HGB CONC 31.7 g/dl (31.0-37.0); MEAN PLATELET VOLUME 9.7 fl (7.0-11.0); MONO # 0.7 (0.1-0.6); MONO % 8.3 % (1.0-6.0); PLATELET COUNT 244 10^3/uL (120.0-450.0); WHITE BLOOD COUNT 8.4 10^3/ul (4.5-11.0)
[2016-06-29 09:23] LABS: INR 1.22 (0.93-1.08)
[2016-06-29 09:24] LABS: ALB/GLOB RATIO 1.2 (1.1-1.8); ALKALINE PHOSPHATASE 69 U/L (38-133); ALT/SGPT 24 U/L (7-56); AST/SGOT 22 U/L (15-39); BILIRUBIN,TOTAL 0.3 mg/dL (0.2-1.3); BLOOD UREA NITROGEN 25 mg/dL (7-21); CALCIUM 9.3 mg/dL (8.4-10.5); CARBON DIOXIDE 27 mmol/L (21-33); CHLORIDE 104 mmol/L (95-110); GFR AFRICAN-AMERICAN > 60; GLUCOSE,RANDOM 179 mg/dL (70-110); POTASSIUM 4.1 mmol/L (3.6-5.0); SODIUM 142 mmol/L (132-148); TOTAL PROTEIN 6.4 g/dL (5.8-8.3)
[2016-06-29] MEDS: Ammonium Lactate 12% Lotion (225 g) EXT SCH ×2 (11:02→17:56)
[2016-06-29] MEDS: Tiotropium 18 mcg Cap For Inhalation IH SCH (11:05)
[2016-06-29] MEDS: Nystatin-Triamcinolone Cream(30 gm) TOP SCH ×2 (11:14→17:58)
--- NOTE | 2016-06-29 13:18 | CP.PCM.PN ---
Subjective - Date & Time of Evaluation Date of Evaluation: 06/29/16 Time of Evaluation: 11:50 - Subjective Subjective: Comfortable on a chair, no fevers overnight, no nausea, no diarrhea, no SOB or cough currently. Objective - Vital Signs/Intake and Output Vital Signs (last 24 hours): Temp Pulse Resp BP Pulse Ox 97.3 F L 64 20 133/61 95 06/29/16 10:35 06/29/16 11:01 06/29/16 10:35 06/29/16 11:03 06/29/16 10:35 - Medications Medications: Current Medications Acetaminophen (Tylenol 325mg Tab) 650 mg PO Q6H PRN; Protocol PRN Reason: Fever >100.4 F Albuterol/Ipratropium (Duoneb 3 Mg/0.5 Mg (3 Ml) Ud) 3 ml IH Q2H PRN; Protocol PRN Reason: Shortness of Breath Aspirin (Ecotrin) 81 mg PO 0800 [facility] PRN Reason: Protocol Last Admin: 06/29/16 08:54 Dose: 81 mg Enoxaparin Sodium (Lovenox) 100 mg SC 0600,1800 [facility] PRN Reason: Protocol Last Admin: 06/29/16 05:38 Dose: 100 mg Furosemide (Lasix) 40 mg PO DAILY [facility] Last Admin: 06/29/16 11:03 Dose: 40 mg Glimepiride (Amaryl) 4 mg PO 0800,1700 [facility] PRN Reason: Protocol Last Admin: 06/29/16 08:54 Dose: 4 mg Hydralazine HCl (Apresoline) 50 mg PO BID PRN; Protocol PRN Reason: IF BP>160 Last Admin: 06/28/16 18:56 Dose: 50 mg Vancomycin HCl (Vancomycin 1gm) 250 mls @ 167 mls/hr IVPB 0600,1800 [facility] PRN Reason: Protocol Stop: 07/01/16 06:00 Last Admin: 06/29/16 05:38 Dose: 167 mls/hr Ibuprofen (Motrin Tab) 600 mg PO BID PRN; Protocol PRN Reason: Pain, moderate (4-7) Last Admin: 06/22/16 14:25 Dose: 600 mg Insulin Human Regular (Humulin R Med) 0 units SC ACHS [facility] PRN Reason: Protocol Last Admin: 06/29/16 11:06 Dose: 10 units Isosorbide Mononitrate (Imdur) 60 mg PO 0630 [facility] PRN Reason: Protocol Last Admin: 06/29/16 05:39 Dose: 60 mg Lactic Acid (Lac-Hydrin 12% Lotion (225 G)) 0 gm EXT BID [facility] PRN Reason: Protocol Last Admin: 06/29/16 11:02 Dose: 1 applic Levalbuterol HCl (Xopenex) 1.25 mg IH [id number] PRN; Protocol PRN Reason: Shortness of Breath Metformin HCl (Glucophage) 1,000 mg PO 0800,1700 [facility] PRN Reason: Protocol Last Admin: 06/29/16 08:54 Dose: 1,000 mg Nadolol (Corgard) 10 mg PO BID [facility] PRN Reason: Protocol Last Admin: 06/29/16 11:01 Dose: 10 mg Nicotine (Nicoderm Cq) 1 patch TD DAILY [facility] PRN Reason: Protocol Last Admin: 06/29/16 11:03 Dose: 1 patch Nystatin/Triamcinolone Acetonide (Nystatin/Triamcinolone Cream) 0 ea TOP BID [facility] PRN Reason: Protocol Last Admin: 06/29/16 11:14 Dose: Not Given Pantoprazole Sodium (Protonix Ec Tab) 40 mg PO 0630 [facility] PRN Reason: Protocol Last Admin: 06/29/16 05:39 Dose: 40 mg Potassium Chloride (Klor-Con 10) 10 meq PO 0800 [facility] PRN Reason: Protocol Last Admin: 06/29/16 08:55 Dose: 10 meq Sitagliptin Phosphate (Januvia) 50 mg PO DAILY [facility] PRN Reason: Protocol Last Admin: 06/29/16 11:01 Dose: 50 mg Tiotropium [place] (Spiriva) 18 mcg IH DAILY [facility] PRN Reason: Protocol Last Admin: 06/29/16 11:05 Dose: 18 mcg Warfarin Sodium (Coumadin) 10 mg PO 1800 [facility] PRN Reason: Protocol Last Admin: 06/28/16 18:51 Dose: 10 mg - Labs Labs: 06/29/16 09:01 06/29/16 09:01 PT 13.2 Seconds (9.9-11.8) H 06/29/16 09:01 INR 1.22 (0.93-1.08) H 06/29/16 09:01 APTT 28.9 Seconds (23.7-30.8) 06/28/16 06:56 - Constitutional Appears: Non-toxic, No Acute Distress - Head Exam Head Exam: NORMAL INSPECTION - ENT Exam ENT Exam: Mucous Membranes Moist - Neck Exam Neck Exam: absent: Lymphadenopathy, Meningismus - Respiratory Exam Respiratory Exam: Decreased Breath Sounds - Cardiovascular Exam Cardiovascular Exam: +S1, +S2 - GI/Abdominal Exam GI & Abdominal Exam: Soft. absent: Tenderness Assessment and Plan - Assessment and Plan (Free Text) Plan: Assessment S/P Sepsis with acute hypoxic respiratory failure secondary to left-sided healthcare-associated pneumonia with possible gram positive cocci and/or gram negative bacilli, clinically improved and S/P treatment as well as sepsis from persistent methicillin-resistant coagulase negative staph bacteremia , probably port infection S/P removal of the port POD #3 history of Group G Strep bacteremia history of E. coli UTI history of healthcare-associated pneumonia acute renal failure obesity with BMI 38 CAD GERD arthritis history of bilateral knee replacements chronic CHF COPD DM history of breast CA History of Strep bovis bacteremia (2012) S/P Port-a-cath placement Plan continue Vancomycin (day 4 since surgery, to complete a 5-7 day course - continue to monitor BUN/Crea) Will continue to follow clinically
--- NOTE | 2016-06-29 14:01 | CP.PCM.PN ---
Subjective - Date & Time of Evaluation Date of Evaluation: 06/29/16 Time of Evaluation: 12:30 - Subjective Subjective: General Surgery progress note for Dr. Glynn Pt s/e at bedside. NAEO. Patient reports a productive cough but denies any pain , fevers, chills, nausea, vomiting, SOB, chest pain. Denies any pain, swelling, or active drainage from the site of the portacath removal in the right upper chest. Objective - Vital Signs/Intake and Output Vital Signs (last 24 hours): Temp Pulse Resp BP Pulse Ox 97.3 F L 64 20 133/61 95 06/29/16 10:35 06/29/16 11:01 06/29/16 10:35 06/29/16 11:03 06/29/16 10:35 - Medications Medications: Current Medications Acetaminophen (Tylenol 325mg Tab) 650 mg PO Q6H PRN; Protocol PRN Reason: Fever >100.4 F Albuterol/Ipratropium (Duoneb 3 Mg/0.5 Mg (3 Ml) Ud) 3 ml IH Q2H PRN; Protocol PRN Reason: Shortness of Breath Aspirin (Ecotrin) 81 mg PO 0800 [facility] PRN Reason: Protocol Last Admin: 06/29/16 08:54 Dose: 81 mg Enoxaparin Sodium (Lovenox) 100 mg SC 0600,1800 [facility] PRN Reason: Protocol Last Admin: 06/29/16 05:38 Dose: 100 mg Furosemide (Lasix) 40 mg PO DAILY [facility] Last Admin: 06/29/16 11:03 Dose: 40 mg Glimepiride (Amaryl) 4 mg PO 0800,1700 [facility] PRN Reason: Protocol Last Admin: 06/29/16 08:54 Dose: 4 mg Hydralazine HCl (Apresoline) 50 mg PO BID PRN; Protocol PRN Reason: IF BP>160 Last Admin: 06/28/16 18:56 Dose: 50 mg Vancomycin HCl (Vancomycin 1gm) 250 mls @ 167 mls/hr IVPB 0600,1800 [facility] PRN Reason: Protocol Stop: 07/01/16 06:00 Last Admin: 06/29/16 05:38 Dose: 167 mls/hr Ibuprofen (Motrin Tab) 600 mg PO BID PRN; Protocol PRN Reason: Pain, moderate (4-7) Last Admin: 06/22/16 14:25 Dose: 600 mg Insulin Human Regular (Humulin R Med) 0 units SC ACHS [facility] PRN Reason: Protocol Last Admin: 06/29/16 11:06 Dose: 10 units Isosorbide Mononitrate (Imdur) 60 mg PO 0630 [facility] PRN Reason: Protocol Last Admin: 06/29/16 05:39 Dose: 60 mg Lactic Acid (Lac-Hydrin 12% Lotion (225 G)) 0 gm EXT BID [facility] PRN Reason: Protocol Last Admin: 06/29/16 11:02 Dose: 1 applic Levalbuterol HCl (Xopenex) 1.25 mg IH [id number] PRN; Protocol PRN Reason: Shortness of Breath Metformin HCl (Glucophage) 1,000 mg PO 0800,1700 [facility] PRN Reason: Protocol Last Admin: 06/29/16 08:54 Dose: 1,000 mg Nadolol (Corgard) 10 mg PO BID [facility] PRN Reason: Protocol Last Admin: 06/29/16 11:01 Dose: 10 mg Nicotine (Nicoderm Cq) 1 patch TD DAILY [facility] PRN Reason: Protocol Last Admin: 06/29/16 11:03 Dose: 1 patch Nystatin/Triamcinolone Acetonide (Nystatin/Triamcinolone Cream) 0 ea TOP BID [facility] PRN Reason: Protocol Last Admin: 06/29/16 11:14 Dose: Not Given Pantoprazole Sodium (Protonix Ec Tab) 40 mg PO 0630 [facility] PRN Reason: Protocol Last Admin: 06/29/16 05:39 Dose: 40 mg Potassium Chloride (Klor-Con 10) 10 meq PO 0800 [facility] PRN Reason: Protocol Last Admin: 06/29/16 08:55 Dose: 10 meq Sitagliptin Phosphate (Januvia) 50 mg PO DAILY [facility] PRN Reason: Protocol Last Admin: 06/29/16 11:01 Dose: 50 mg Tiotropium [place] (Spiriva) 18 mcg IH DAILY [facility] PRN Reason: Protocol Last Admin: 06/29/16 11:05 Dose: 18 mcg Warfarin Sodium (Coumadin) 10 mg PO 1800 [facility] PRN Reason: Protocol Last Admin: 06/28/16 18:51 Dose: 10 mg - Labs Labs: 06/29/16 09:01 06/29/16 09:01 PT 13.2 Seconds (9.9-11.8) H 06/29/16 09:01 INR 1.22 (0.93-1.08) H 06/29/16 09:01 APTT 28.9 Seconds (23.7-30.8) 06/28/16 06:56 - Constitutional Appears: Well, Non-toxic, No Acute Distress - Head Exam Head Exam: ATRAUMATIC, NORMOCEPHALIC - Eye Exam Eye Exam: Normal appearance. absent: Conjunctival injection, Scleral icterus - ENT Exam ENT Exam: Mucous Membranes Moist, Normal Oropharynx - Respiratory Exam Respiratory Exam: Respiratory Distress, NORMAL BREATHING PATTERN. absent: Accessory Muscle Use Additional comments: intermittent productive cough. Surgical site of the portacath removal in right chest is covered in dermabond, well approximated, with no active drainage, surrounding erythema or swelling. - GI/Abdominal Exam GI & Abdominal Exam: Distended, Soft - Extremities Exam Extremities Exam: Pedal Edema. absent: Calf Tenderness Additional comments: PICC line in the left upper extremity with no active bleeding - Neurological Exam Neurological Exam: Alert, Awake, Oriented x3 - Psychiatric Exam Psychiatric exam: Normal Affect, Normal Mood - Skin Skin Exam: Dry, Intact, Normal Color, Warm Assessment and Plan - Assessment and Plan (Free Text) Assessment: 70yo F with infected portacath s/p removal POD#3 WBC wnl Hgb slightly decreased: 8.4 INR only 1.22 up from 1.11 with 10mg coumadin Plan: - F/U AM Hgb - Increase dose of coumadin today to 15mg PO - Continue therapeutic lovenox Pt discussed with Dr. Renard Gutierrez, PGY1
--- NOTE | 2016-06-29 17:05 | PN ---
DATE: 06/29/2016 REASON FOR CONSULTATION: Coronary artery disease, chronic atrial fibrillation, COPD, hypertension. BRIEF CLINICAL HISTORY: A 70-year-old morbidly obese female with a past medical history significant for 1 vessel coronary artery disease, chronic atrial fibrillation, aortic stenosis, developed staph b acteremia, status post removal of Port-A-Cath. Now patient is in transitional care for the continuit y of care. Denies any chest pain, shortness of breath, any palpitation. PHYSICAL EXAMINATION: VITAL SIGNS: Temperature afebrile, heart rate 64, blood pressure 152/61. HEENT: PERRLA. Extraocular muscles intact. NECK: Supple. No carotid bruits. No thyromegaly. CHEST: Clear to auscultation. HEART: S1, S2 regular. ABDOMEN: Soft. EXTREMITIES: Clubbing, cyanosis negative. LABORATORY DATA: Blood workup as follows: WBC 8.4, hemoglobin 8.4, hematocrit 26.5, platelet count 244. Chemistry shows sodium 140, potassium 4.0, chloride 104, carbon dioxide 27, anion gap of 15, BU N 25, creatinine 0.9. INR 1.22. IMPRESSION: Atrial fibrillation, aortic stenosis, coronary artery disease, 1 vessel, chronic obstruct klaus pulmonary disease, morbid obesity, staph bacteremia, status post removal of the Port-A-Cath, hype rtension, hyperlipidemia, pneumonia, community-acquired healthcare pneumonia. RECOMMENDATION: Continue hydralazine, continue Coumadin, restart it. Continue medication. Continue rehabilitation. Continue enoxaparin as a bridge . Repeat the lab in the morning. Repeat a CB C and PT in the morning. We will follow with you. Thank you, Dr. Kirby, for providing the opportunity in taking care of this patient. Will follow wi th you. Brianna Sandra MD cc: [phone] TT: 06/29/2016 17:05:07 Confirmation # [id number] Dictation # [id number] bridget
[2016-06-30] MEDS ORDERED: Dextrose 50% SYRINGE Inj (50 ml) ONE (02:34)
[2016-06-30] MEDS ORDERED: Dextrose 50% SYRINGE Inj (50 ml) IVP STA ×2 (02:47→06:03)
--- NOTE | 2016-06-30 02:52 | CP.PCM.PN ---
Subjective - Date & Time of Evaluation Date of Evaluation: 06/30/16 Time of Evaluation: 02:48 - Subjective Subjective: S:Nurse calls with finger stick reading of 40 mg %.Patient awake , alert , asymptomatic. I ordered D50% , 50 ml IV stat. Went to see patient . She is getting D50%. Has no complaints. Had been eating all day allegedly . Has not received extra insulin. Denies sweating, palpitation, stomach cramps. Pertinent medical record was reviewed. O: Last Vital Signs 3 Temp 98.6 F 06/29/16 16:00 Pulse 76 06/29/16 17:53 Resp 15 06/29/16 16:00 BP 139/65 06/29/16 17:53 Pulse Ox 94 L 06/29/16 16:00 Awake, alert, not in distress. Sitting on the edge of bed. LUNGS:Normal breathing pattern. NEURO:Speech normal. A:Hypoglycemia.Aetio? P:D50% , 50 ml IV stat. Objective - Vital Signs/Intake and Output Vital Signs (last 24 hours): Temp Pulse Resp BP Pulse Ox 98.6 F 76 15 139/65 94 L 06/29/16 16:00 06/29/16 17:53 06/29/16 16:00 06/29/16 17:53 06/29/16 16:00 - Medications Medications: Current Medications Acetaminophen (Tylenol 325mg Tab) 650 mg PO Q6H PRN; Protocol PRN Reason: Fever >100.4 F Last Admin: 06/30/16 02:45 Dose: 650 mg Albuterol/Ipratropium (Duoneb 3 Mg/0.5 Mg (3 Ml) Ud) 3 ml IH Q2H PRN; Protocol PRN Reason: Shortness of Breath Aspirin (Ecotrin) 81 mg PO 0800 [facility] PRN Reason: Protocol Last Admin: 06/29/16 08:54 Dose: 81 mg Dextrose (Dextrose 50% Inj) 50 ml IVP STAT [facility] Stop: 06/30/16 02:48 Enoxaparin Sodium (Lovenox) 100 mg SC 0600,1800 [facility] PRN Reason: Protocol Last Admin: 06/29/16 17:56 Dose: 100 mg Furosemide (Lasix) 40 mg PO DAILY [facility] Last Admin: 06/29/16 11:03 Dose: 40 mg Glimepiride (Amaryl) 4 mg PO 0800,1700 [facility] PRN Reason: Protocol Last Admin: 06/29/16 17:53 Dose: 4 mg Hydralazine HCl (Apresoline) 50 mg PO BID PRN; Protocol PRN Reason: IF BP>160 Last Admin: 06/28/16 18:56 Dose: 50 mg Vancomycin HCl (Vancomycin 1gm) 250 mls @ 167 mls/hr IVPB 0600,1800 [facility] PRN Reason: Protocol Stop: 07/01/16 06:00 Last Admin: 06/29/16 17:57 Dose: 167 mls/hr Ibuprofen (Motrin Tab) 600 mg PO BID PRN; Protocol PRN Reason: Pain, moderate (4-7) Last Admin: 06/22/16 14:25 Dose: 600 mg Insulin Human Regular (Humulin R Med) 0 units SC ACHS [facility] PRN Reason: Protocol Last Admin: 06/29/16 21:46 Dose: Not Given Isosorbide Mononitrate (Imdur) 60 mg PO 0630 [facility] PRN Reason: Protocol Last Admin: 06/29/16 05:39 Dose: 60 mg Lactic Acid (Lac-Hydrin 12% Lotion (225 G)) 0 gm EXT BID [facility] PRN Reason: Protocol Last Admin: 06/29/16 17:56 Dose: 1 applic Levalbuterol HCl (Xopenex) 1.25 mg IH [id number] PRN; Protocol PRN Reason: Shortness of Breath Metformin HCl (Glucophage) 1,000 mg PO 0800,1700 [facility] PRN Reason: Protocol Last Admin: 06/29/16 17:55 Dose: 1,000 mg Nadolol (Corgard) 10 mg PO BID [facility] PRN Reason: Protocol Last Admin: 06/29/16 17:53 Dose: 10 mg Nicotine (Nicoderm Cq) 1 patch TD DAILY [facility] PRN Reason: Protocol Last Admin: 06/29/16 11:03 Dose: 1 patch Nystatin/Triamcinolone Acetonide (Nystatin/Triamcinolone Cream) 0 ea TOP BID [facility] PRN Reason: Protocol Last Admin: 06/29/16 17:58 Dose: Not Given Pantoprazole Sodium (Protonix Ec Tab) 40 mg PO 0630 [facility] PRN Reason: Protocol Last Admin: 06/29/16 05:39 Dose: 40 mg Potassium Chloride (Klor-Con 10) 10 meq PO 0800 [facility] PRN Reason: Protocol Last Admin: 06/29/16 08:55 Dose: 10 meq Sitagliptin Phosphate (Januvia) 50 mg PO DAILY [facility] PRN Reason: Protocol Last Admin: 06/29/16 11:01 Dose: 50 mg Tiotropium [place] (Spiriva) 18 mcg IH DAILY [facility] PRN Reason: Protocol Last Admin: 06/29/16 11:05 Dose: 18 mcg Warfarin Sodium (Coumadin) 10 mg PO 1800 [facility] PRN Reason: Protocol Last Admin: 06/29/16 17:54 Dose: 10 mg Warfarin Sodium (Coumadin) 5 mg PO 1800 [facility] PRN Reason: Protocol Last Admin: 06/29/16 17:55 Dose: 5 mg - Labs Labs: 06/29/16 09:01 06/29/16 09:01 PT 13.2 Seconds (9.9-11.8) H 06/29/16 09:01 INR 1.22 (0.93-1.08) H 06/29/16 09:01 APTT 28.9 Seconds (23.7-30.8) 06/28/16 06:56
[2016-06-30] MEDS: Vancomycin 1gm in NS 250ml 250 ML IVPB SCH ×2 (05:17→17:28)
[2016-06-30] MEDS: Enoxaparin 100 mg Syringe SC SCH (05:18)
[2016-06-30 06:40] LABS: ADD MANUAL DIFF? NO
[2016-06-30] MEDS: Pantoprazole 40 mg EC Tab PO SCH (06:47)
[2016-06-30] MEDS: Insulin Reg-MEDIUM-Coverage SC SCH ×4 (06:48→22:43)
[2016-06-30 06:54] LABS: INR 1.6 (0.93-1.08)
[2016-06-30 07:16] LABS: BASO # 0.01 K/mm3 (0.0-2.0); BASO % 0.2 % (0.0-3.0); EOS # 0.1 (0.0-0.7); EOS % 1.7 % (1.5-5.0); GRAN # 4.57 (1.4-6.5); GRAN % 69.6 % (50.0-68.0); HEMATOCRIT 26.3 % (36.0-48.0); LYMPH # 1.3 (1.2-3.4); LYMPH % 19.8 % (22.0-35.0); MEAN CORPUSCULAR HEMOGLOBIN 27.1 pg (25.0-35.0); MEAN CORPUSCULAR HGB CONC 30.8 g/dl (31.0-37.0); MEAN PLATELET VOLUME 10.4 fl (7.0-11.0); MONO # 0.6 (0.1-0.6); MONO % 8.7 % (1.0-6.0); PLATELET COUNT 222 10^3/uL (120.0-450.0); RED CELL DISTRIBUTION WIDTH 16.1 % (11.5-14.5); WHITE BLOOD COUNT 6.6 10^3/ul (4.5-11.0)
[2016-06-30] MEDS: Potassium Chloride 10 mEq ER Tab PO SCH (08:35)
--- NOTE | 2016-06-30 09:06 | PN ---
DATE: 06/27/2016 The patient is in room 313, bed 1. REASON FOR CONSULTATION AND FOLLOWUP: Coronary artery disease, chronic atrial fibrillation, chronic obstructive pulmonary disease, hypertension. HISTORY OF PRESENT ILLNESS: The patient is a 70-year-old female admitted with shortness of breath, c ough and congestion. The patient also found to have severe anemia, received blood transfusion. 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 The patient also noted to have Staph bacterem ia and patient's Port-A-Cath has to be removed. The patient is sitting in chair without any chest pa in, shortness of breath, or palpitation. The patient continues to get physical therapy. PHYSICAL EXAMINATION: VITAL SIGNS: Blood pressure 146/67, respirations 18, pulse 88. The patient is afebrile. HEAD: Normocephalic. EYES: Pupils normal. Conjunctivae slightly pale. NECK: JVP low. Carotid equal. THORAX: AP diameter normal. LUNGS: Few wheezing. CARDIOVASCULAR: S1, S2, ejection systolic murmur grade III/. No rub. ABDOMEN: Protuberant, no organomegaly. EXTREMITIES: No clubbing, no cyanosis. LABORATORIES: Random sugar 248. Other labs were done on 06/25. They were reported in our previous n otes. 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 PLAN: The patient's Port-A-Cath has been removed because of Staph bacteremia. The patient on Corgar d 10 mg b.i.d., warfarin has been started again 8 mg p.o. daily, DuoNeb hand nebulizer therapy, aspir in 81 mg p.o. daily, vancomycin 1 gram IV q. 12 hours, Xopenex hand nebulizer therapy, Amaryl 4 mg da chris, metformin 1000 mg b.i.d., Amaryl 4 mg b.i.d., Lovenox 100 mg subQ b.i.d., furosemide 40 mg daily , potassium 10 mEq daily, Januvia 50 mg daily, isosorbide mono 60 mg daily. We will continue to jordan tor the blood pressure and if it stays high, we will adjust the medication. Brianna Deng MD cc: [id number] TT: 06/27/2016 15:11:44 Confirmation # [id number] Dictation # [id number] en
[2016-06-30] MEDS: Ammonium Lactate 12% Lotion (225 g) EXT SCH ×2 (09:15→17:27)
[2016-06-30] MEDS: Nystatin-Triamcinolone Cream(30 gm) TOP SCH ×2 (09:16→17:27)
[2016-06-30] MEDS: Tiotropium 18 mcg Cap For Inhalation IH SCH (09:16)
[2016-06-30 12:53] VITALS: RESP 20; O2SAT 96
--- NOTE | 2016-06-30 12:58 | PN ---
DATE: 06/30/2016 The patient seen earlier today in room 313. No fevers and no chills, no nausea. She wants to leave. She wants to be discharged. She wants to have a cigarette. PHYSICAL EXAMINATION: VITAL SIGNS: Temperature is 98, blood pressure is 130/60, respiratory rate of 18. HEENT: Unremarkable. NECK: Supple. LUNGS: Have decreased breath sounds. HEART: Normal S1, S2. ABDOMEN: Soft, nontender, no rebound, no guarding. LABORATORY EXAMINATION: Reveals the patient's white count is 6.6, hemoglobin of 8, platelets of 222. BUN of 25, creatinine of 0.9. Procalcitonin is less than 0.05. ASSESSMENT AND PLAN: A 71-year-old with status post sepsis with acute hypoxic respiratory failure, l eft-sided healthcare-associated pneumonia and possible gram-positive cocci, possible gram-negative ro d, clinically improved, now in transitional care with methicillin-resistant with resistant coag negat klaus Staph bacteremia secondary to a Port-A-Cath, which was removed, postop day #4. Currently on vanc omycin, day #5. Would complete 7-10 days. Case discussed with Dr. Kirby at length. If the patien t insists on going home, would ideally like to reach at least 10 days of intravenous therapy from the time of the cultures and the Port-A-Cath had been removed. Benjamin Obrien MD cc: [id number] TT: 06/30/2016 12:57:58 Confirmation # [id number] Dictation # [id number] en
--- NOTE | 2016-06-30 13:17 | PN ---
DATE: 06/30/2016 The patient is in room 313, bed 1. REASON FOR CONSULTATION AND FOLLOWUP: Coronary artery disease, chronic atrial fibrillation, COPD, hy pertension. HISTORY OF PRESENT ILLNESS: The patient is a 71-year-old morbidly obese female with a past medical h istory significant for 1-vessel coronary artery disease, chronic atrial fibrillation, aortic stenosis , developed staph bacteremia, status post removal of Port-A-Cath. Now patient is in transitional car e unit for continuity of the care. The patient is getting physical therapy without any cardiac sympt oms. PHYSICAL EXAMINATION: VITAL SIGNS: Blood pressure 130/66, respirations 20, pulse 75, temperature 97.8. HEAD: Normocephalic. EYES: Pupils normal. Conjunctivae slightly pale. NECK: JVP low. Carotid equal. THORAX: AP diameter normal. LUNGS: Clear. CARDIOVASCULAR: S1, S2, ejection systolic murmur grade III/, no rub. ABDOMEN: Soft, no tenderness, no organomegaly. Bowel sounds normal. EXTREMITIES: No clubbing, no cyanosis. LABORATORY DATA: WBC 6.6, hemoglobin 8.1, hematocrit 26.3, platelets 222. Sodium 142, potassium 4.1 , BUN 25, creatinine 0.9, random sugar 179. AST, ALT normal. Total protein, albumin normal. DIAGNOSES: Atrial fibrillation, aortic stenosis, 1-vessel coronary artery disease, totally occluded right coronary artery getting collateral from left anterior descending artery, chronic obstructive pu lmonary disease, morbid obesity, staph bacteremia, status post removal of Port-A-Cath, hypertension, hyperlipidemia, community-acquired pneumonia. PLAN: The patient's prothrombin time today is 17.3, INR 1.60. The patient is getting nadolol 10 mg b.i.d., warfarin 10 mg p.o. daily. The patient received yesterday 5 mg extra of Coumadin. Now, she is on 10 plus 5, 15 mg of Coumadin, DuoNeb hand nebulizer therapy, aspirin 81 mg daily, isosorbide mo no 60 daily, Januvia 50 mg daily, potassium 10 mEq daily, furosemide 40 daily, Protonix 40 daily, Spi christiano 18 mcg inhaled daily, vancomycin 1 gram IV b.i.d., Amaryl 4 mg daily, metformin 1000 mg b.i.d. Brianna Deng MD cc: [phone] TT: 06/30/2016 13:16:23 Confirmation # [id number] Dictation # [id number] en
--- NOTE | 2016-06-30 18:11 | CP.PCM.PN ---
Subjective - Date & Time of Evaluation Date of Evaluation: 06/30/16 Time of Evaluation: 18:04 - Subjective Subjective: Patient has Picc line that could not be flushed. She has very poor veins,needs iv access. Objective - Vital Signs/Intake and Output Vital Signs (last 24 hours): Temp Pulse Resp BP Pulse Ox 97.8 F 75 20 125/60 96 06/30/16 10:00 06/30/16 17:25 06/30/16 10:00 06/30/16 17:25 06/30/16 10:00 - Medications Medications: Current Medications Acetaminophen (Tylenol 325mg Tab) 650 mg PO Q6H PRN; Protocol PRN Reason: Fever >100.4 F Last Admin: 06/30/16 02:45 Dose: 650 mg Albuterol/Ipratropium (Duoneb 3 Mg/0.5 Mg (3 Ml) Ud) 3 ml IH Q2H PRN; Protocol PRN Reason: Shortness of Breath Aspirin (Ecotrin) 81 mg PO 0800 [facility] PRN Reason: Protocol Last Admin: 06/30/16 08:34 Dose: 81 mg Furosemide (Lasix) 40 mg PO DAILY [facility] Last Admin: 06/30/16 09:15 Dose: 40 mg Glimepiride (Amaryl) 4 mg PO 0800,1700 [facility] PRN Reason: Protocol Last Admin: 06/30/16 17:25 Dose: 4 mg Hydralazine HCl (Apresoline) 50 mg PO BID PRN; Protocol PRN Reason: IF BP>160 Last Admin: 06/28/16 18:56 Dose: 50 mg Vancomycin HCl (Vancomycin 1gm) 250 mls @ 167 mls/hr IVPB 0600,1800 [facility] PRN Reason: Protocol Stop: 07/01/16 06:00 Last Admin: 06/30/16 17:28 Dose: 167 mls/hr Insulin Human Regular (Humulin R Med) 0 units SC ACHS [facility] PRN Reason: Protocol Last Admin: 06/30/16 17:27 Dose: Not Given Isosorbide Mononitrate (Imdur) 60 mg PO 0630 [facility] PRN Reason: Protocol Last Admin: 06/30/16 06:47 Dose: 60 mg Lactic Acid (Lac-Hydrin 12% Lotion (225 G)) 0 gm EXT BID [facility] PRN Reason: Protocol Last Admin: 06/30/16 17:27 Dose: 1 applic Levalbuterol HCl (Xopenex) 1.25 mg IH [id number] PRN; Protocol PRN Reason: Shortness of Breath Metformin HCl (Glucophage) 1,000 mg PO 0800,1700 [facility] PRN Reason: Protocol Last Admin: 06/30/16 17:26 Dose: 1,000 mg Nadolol (Corgard) 10 mg PO BID [facility] PRN Reason: Protocol Last Admin: 06/30/16 17:25 Dose: 10 mg Nicotine (Nicoderm Cq) 1 patch TD DAILY [facility] PRN Reason: Protocol Last Admin: 06/30/16 09:16 Dose: 1 patch Nystatin/Triamcinolone Acetonide (Nystatin/Triamcinolone Cream) 0 ea TOP BID [facility] PRN Reason: Protocol Last Admin: 06/30/16 17:27 Dose: Not Given Pantoprazole Sodium (Protonix Ec Tab) 40 mg PO 0630 [facility] PRN Reason: Protocol Last Admin: 06/30/16 06:47 Dose: 40 mg Potassium Chloride (Klor-Con 10) 10 meq PO 0800 [facility] PRN Reason: Protocol Last Admin: 06/30/16 08:35 Dose: 10 meq Sitagliptin Phosphate (Januvia) 50 mg PO DAILY [facility] PRN Reason: Protocol Last Admin: 06/30/16 09:15 Dose: 50 mg Tiotropium Stephenson (Spiriva) 18 mcg IH DAILY [facility] PRN Reason: Protocol Last Admin: 06/30/16 09:16 Dose: 18 mcg Warfarin Sodium (Coumadin) 10 mg PO 1800 [facility] PRN Reason: Protocol Last Admin: 06/30/16 17:26 Dose: 10 mg Warfarin Sodium (Coumadin) 5 mg PO 1800 [facility] PRN Reason: Protocol Last Admin: 06/30/16 17:26 Dose: 5 mg - Labs Labs: 06/30/16 06:00 06/29/16 09:01 PT 17.3 Seconds (9.9-11.8) H 06/30/16 06:00 INR 1.60 (0.93-1.08) H 06/30/16 06:00 APTT 28.9 Seconds (23.7-30.8) 06/28/16 06:56 - Constitutional Appears: No Acute Distress Assessment and Plan - Assessment and Plan (Free Text) Assessment: Poor venous access. Plan: Hep lock inserted in the L hand, #24 angiocath used.
--- NOTE | 2016-06-30 19:16 | PN ---
DATE: 06/30/2016 SUBJECTIVE: The patient is a 71-year-old, seen and examined sitting in chair. Anxious to go home be cause today is her birthday. She is desperate to go home and smoke a cigarette. PHYSICAL EXAMINATION: VITAL SIGNS: She is afebrile, pulse 75, respirations 20, blood pressure 125/60. LUNGS: Bilateral fair airflow. Few expiratory crackles bilaterally. HEART: S1, S2 audible, irregular rate control. ABDOMEN: Soft, obese, nontender, no rebound, no guarding. NEUROLOGIC: She is awake and alert, communicative, moves all extremities. EXTREMITIES: Bilateral legs, +1 edema. LABORATORY: WBC 6.6, hemoglobin 8.1, hematocrit 26.3, platelets 222. PT 17.3, INR 1.60. Chemistry: Blood sugar is 179. ASSESSMENT: 1. Status post Port-A-Cath removal. 2. Coagulase-negative staphylococcus bacteremia. 3. Hypertension. 4. Coronary artery disease. 5. [id number] diabetes. PLAN: I will continue patient on nadolol for congestive gastropathy. I will give her Coumadin 10 mg today. I will continue her on nebulizer treatment. She is on aspirin 81 daily. She will continue her Imdur and Januvia. Continue her on Protonix. She is getting vancomycin that she will be finishi ng by tomorrow. Will make discharge plan in the a.m. Edwige Kirby MD cc: [phone] TT: 06/30/2016 19:15:40 Confirmation # [id number] Dictation # [id number] mn
[2016-07-01] MEDS: Pantoprazole 40 mg EC Tab PO SCH (05:48)
[2016-07-01] MEDS: Vancomycin 1gm in NS 250ml 250 ML IVPB SCH (05:48)
[2016-07-01 06:30] VITALS: PULSE 81; TEMP 98.4
[2016-07-01] MEDS: Insulin Reg-MEDIUM-Coverage SC SCH (06:48)
[2016-07-01] MEDS: Potassium Chloride 10 mEq ER Tab PO SCH (08:09)
[2016-07-01] MEDS: Ammonium Lactate 12% Lotion (225 g) EXT SCH (09:56)
[2016-07-01] MEDS: Nystatin-Triamcinolone Cream(30 gm) TOP SCH (09:57)
[2016-07-01] MEDS: Tiotropium 18 mcg Cap For Inhalation IH SCH (09:58)
[2016-07-01 10:01] VITALS: BP 182/76
--- NOTE | 2016-07-01 10:13 | CP.PCM.PN ---
Subjective - Date & Time of Evaluation Date of Evaluation: 07/01/16 Time of Evaluation: 10:09 - Subjective Subjective: PICC Line removed upon request of the PMD as the patient was being discharged home. Area in the left arm cleaned after removal of tegaderm, sutures removed, picc line pulled out without difficulty, hemostasis achieved, area cleaned again and covered with tegaderm around white gauze. 45 cm arnaldo noticed on the picc line. Patient tolerated well. Objective - Vital Signs/Intake and Output Vital Signs (last 24 hours): Temp Pulse Resp BP Pulse Ox 98.4 F 81 20 182/76 H 96 07/01/16 06:00 07/01/16 09:55 07/01/16 06:00 07/01/16 09:57 07/01/16 06:00 - Medications Medications: Current Medications Acetaminophen (Tylenol 325mg Tab) 650 mg PO Q6H PRN; Protocol PRN Reason: Fever >100.4 F Last Admin: 06/30/16 02:45 Dose: 650 mg Albuterol/Ipratropium (Duoneb 3 Mg/0.5 Mg (3 Ml) Ud) 3 ml IH Q2H PRN; Protocol PRN Reason: Shortness of Breath Aspirin (Ecotrin) 81 mg PO 0800 [facility] PRN Reason: Protocol Last Admin: 07/01/16 08:08 Dose: 81 mg Furosemide (Lasix) 40 mg PO DAILY [facility] Last Admin: 07/01/16 09:57 Dose: 40 mg Glimepiride (Amaryl) 4 mg PO 0800,1700 [facility] PRN Reason: Protocol Last Admin: 07/01/16 08:07 Dose: 4 mg Hydralazine HCl (Apresoline) 50 mg PO BID PRN; Protocol PRN Reason: IF BP>160 Last Admin: 06/28/16 18:56 Dose: 50 mg Insulin Human Regular (Humulin R Med) 0 units SC ACHS [facility] PRN Reason: Protocol Last Admin: 07/01/16 06:48 Dose: Not Given Isosorbide Mononitrate (Imdur) 60 mg PO 0630 [facility] PRN Reason: Protocol Last Admin: 07/01/16 05:47 Dose: 60 mg Lactic Acid (Lac-Hydrin 12% Lotion (225 G)) 0 gm EXT BID [facility] PRN Reason: Protocol Last Admin: 07/01/16 09:56 Dose: 1 applic Levalbuterol HCl (Xopenex) 1.25 mg IH [id number] PRN; Protocol PRN Reason: Shortness of Breath Metformin HCl (Glucophage) 1,000 mg PO 0800,1700 [facility] PRN Reason: Protocol Last Admin: 07/01/16 08:08 Dose: 1,000 mg Nadolol (Corgard) 10 mg PO BID [facility] PRN Reason: Protocol Last Admin: 07/01/16 09:55 Dose: 10 mg Nicotine (Nicoderm Cq) 1 patch TD DAILY [facility] PRN Reason: Protocol Last Admin: 07/01/16 09:57 Dose: 1 patch Nystatin/Triamcinolone Acetonide (Nystatin/Triamcinolone Cream) 0 ea TOP BID [facility] PRN Reason: Protocol Last Admin: 07/01/16 09:57 Dose: 1 appl Pantoprazole Sodium (Protonix Ec Tab) 40 mg PO 0630 [facility] PRN Reason: Protocol Last Admin: 07/01/16 05:48 Dose: 40 mg Potassium Chloride (Klor-Con 10) 10 meq PO 0800 [facility] PRN Reason: Protocol Last Admin: 07/01/16 08:09 Dose: 10 meq Sitagliptin Phosphate (Januvia) 50 mg PO DAILY [facility] PRN Reason: Protocol Last Admin: 07/01/16 09:56 Dose: 50 mg Tiotropium Beverly (Spiriva) 18 mcg IH DAILY [facility] PRN Reason: Protocol Last Admin: 07/01/16 09:58 Dose: 18 mcg Warfarin Sodium (Coumadin) 10 mg PO 1800 [facility] PRN Reason: Protocol Last Admin: 06/30/16 17:26 Dose: 10 mg - Labs Labs: 06/30/16 06:00 06/29/16 09:01 PT 17.3 Seconds (9.9-11.8) H 06/30/16 06:00 INR 1.60 (0.93-1.08) H 06/30/16 06:00 APTT 28.9 Seconds (23.7-30.8) 06/28/16 06:56
--- NOTE | 2016-07-01 11:48 | PN ---
DATE: 07/01/2016 The patient is in bed, in no acute distress, nontoxic. PHYSICAL EXAMINATION: VITAL SIGNS: Temperature is 98, blood pressure is 180/70, respiratory rate of 20, heart rate of 81. HEENT: Unremarkable. NECK: Supple. LUNGS: Have decreased breath sounds. HEART: Normal S1, S2. ABDOMEN: Soft, nontender. LABORATORY DATA: Reveals a white count of 6.6, hemoglobin of 8, platelets of 222. Chemistries revea l a BUN of 25, creatinine of 0.9. ASSESSMENT AND PLAN: This is a 71-year-old status post sepsis with acute hypoxic respiratory failure , left-sided healthcare-associated pneumonia, possible gram-positive cocci, possible gram-negative ro d, clinically improved now with transitional care with a methicillin-resistant coagulase-negative sta phylococcus bacteremia secondary to a Port-A-Cath which was removed. Postoperative day #5. Currentl y on vancomycin day #6. The patient for possible discharge today. The patient had received vancomyc in prior to that and will follow up with PMD closely as outpatient. Benjamin Obrien MD cc: [phone] TT: 07/01/2016 11:48:02 Confirmation # [id number] Dictation # [id number] mn
--- NOTE | 2016-07-01 12:17 | PN ---
DATE: 07/01/2016 REASON FOR CONSULTATION AND FOLLOWUP: Coronary artery disease, chronic atrial fibrillation, COPD, hy pertension. BRIEF CLINICAL HISTORY: This is a 71-year-old obese female with past medical history significant for 1-vessel coronary artery disease, moderate aortic stenosis, COPD, admitted with sepsis, bacteremia, status post removal of the Port-A-Cath, getting rehab in TCU. Denies any chest pain, shortness of br eath, any palpitation. PHYSICAL EXAMINATION: VITAL SIGNS: Temperature afebrile, heart rate 81, blood pressure 157/74. HEENT: PERRLA. Extraocular muscles intact. NECK: Supple. No carotid bruits. No thyromegaly. CHEST: Clear to auscultation. HEART: S1, S2 regular. ABDOMEN: Soft. EXTREMITIES: Clubbing and cyanosis negative. LABORATORY DATA: Blood workup as follows: WBC 6.6 as of yesterday, hemoglobin 8.1, hematocrit 26.3, platelet count 222. IMPRESSION: Sepsis, status removal of Port-A-Cath, morbid obesity, chronic obstructive pulmonary dis ease, diabetes, hypertension, hyperlipidemia, chronic atrial fibrillation on anticoagulation. INR is 1.6 today, 1-vessel coronary artery disease, aortic stenosis. RECOMMENDATION: Aggressive medical treatment. Continue rehab. We will follow with you. Thank you, Dr. Kirby, for providing the opportunity in taking care of the patient. CVS status is s table. Brianna Sandra MD cc: [phone] TT: 07/01/2016 12:17:01 Confirmation # [id number] Dictation # [id number] tn
--- NOTE | 2016-07-01 13:01 | CP.PCM.PN ---
<Conrad Vega - Last Filed: 07/01/16 12:57> Subjective - Date & Time of Evaluation Date of Evaluation: 07/01/16 Time of Evaluation: 11:00 - Subjective Subjective: 70 year old female patient with PMHx of COPD & CHF was seen at bedside this morning concerning bilateral fissures to feet and xerosis. Patient was resting in bedside chair and denies of any acute overnight distress. AAO x3. Patient denies any new pedal complaints. Patient denies numbness, burning, tingling in her feet. Patient denies n/f/c/v/d/sob. Patient was reminded of wearing prevlon boots when in bed. Objective - Vital Signs/Intake and Output Vital Signs (last 24 hours): Temp Pulse Resp BP Pulse Ox 98.4 F 81 20 182/76 H 96 07/01/16 06:00 07/01/16 09:55 07/01/16 06:00 07/01/16 09:57 07/01/16 06:00 - Labs Labs: 06/30/16 06:00 06/29/16 09:01 PT 17.3 Seconds (9.9-11.8) H 06/30/16 06:00 INR 1.60 (0.93-1.08) H 06/30/16 06:00 APTT 28.9 Seconds (23.7-30.8) 06/28/16 06:56 - Constitutional Appears: Well, Non-toxic, No Acute Distress - Extremities Exam Additional comments: DERM: No open wound noted. Resolved fissures, no drainage, no acute clinical signs of infection, no erythema, no hyperkeratotic lesions Mild Xerosis noted to bilateral lower extremities VASC: Non-palpable pedal pulses due to nonpittng edema, CFT < 3 sec to all digis , TG wnl NEURO: grossly diminished - Neurological Exam Neurological Exam: Alert, Awake, Oriented x3 - Psychiatric Exam Psychiatric exam: Normal Affect, Normal Mood - Skin Skin Exam: Normal Color, Warm Assessment and Plan - Assessment and Plan (Free Text) Assessment: 70 y/o female seen at bedside for resolved heel fissures bilaterally presenting with xerosis Plan: Patient seen and evaluated this AM discussed with Dr. Henriquez Labs and chart reviewed. Continue applying Lac-hydrin daily. Continue offloading boots while patient remains in bed Patient is stable from podiatry stand point. Podiatry signing off. Please re-consul podiatry as needed. Thank you. <Deric Henriquez - Last Filed: 07/04/16 11:35> Objective - Vital Signs/Intake and Output Vital Signs (last 24 hours): Temp Pulse Resp BP Pulse Ox 98.4 F 81 20 182/76 H 96 07/01/16 06:00 07/01/16 09:55 07/01/16 06:00 07/01/16 09:57 07/01/16 06:00 - Labs Labs: 06/30/16 06:00 06/29/16 09:01 PT 17.3 Seconds (9.9-11.8) H 06/30/16 06:00 INR 1.60 (0.93-1.08) H 06/30/16 06:00 APTT 28.9 Seconds (23.7-30.8) 06/28/16 06:56 Attending/Attestation - Attestation I have personally seen and examined this patient.: Yes I have fully participated in the care of the patient.: Yes I have reviewed all pertinent clinical information, including history, physical exam and plan: Yes
--- NOTE | 2016-07-01 19:37 | DS ---
The patient is 71 years old, who came to Emergency Room on 06/08 with a complaint of cough, congestio n, shortness of breath, leg swelling. She was found to be bacteremic. Was doing well, and developed acute shortness of breath. Developed hospital-acquired pneumonia, and also during this time her blo od culture came out positive for coag negative Staphylococcus. The patient has a Port-A-Cath for the last 5 years, so ID recommended to remove the Port-A-Cath since she has blood culture on 06/17 two b ottles, and 06/18 one bottle positive. So, she ended up having a Port-A-Cath removed and she receive d antibiotic for 10 days, and she had PICC line placed that was removed today also. On examination today she looks comfortable, has scanty cough here and there. VITAL SIGNS: She is afebrile, pulse 81, respirations 20, blood pressure 157/74. LUNGS: Bilateral few soft crackles in left upper lung region. HEART: S1, S2 audible. ABDOMEN: Soft, obese, nontender. No rebound, no guarding. NEUROLOGICALLY: She is awake and alert, able to communicate. Feels tired and sleepy. Her blood sugar is 179. ASSESSMENT AND PLAN: 1. Coagulase negative Staphylococcus bacteremia, status post Port-A-Cath removal. The patient recei ernie 10 days of antibiotic. Initially was on daptomycin and vancomycin, and then daptomycin was disco ntinued by ID, and maintained on vancomycin for total of 10 days. 1. Hypertension. 2. Coronary artery disease. 3. Hyperlipidemia. 4. Non-insulin dependent diabetes. 5. Morbid obesity. 6. Chronic obstructive pulmonary disease. 7. Pulmonary hypertension. 8. Right heart failure. PLAN: The patient finished her course of antibiotics. She is being discharged home. She is on hydr alazine 50 mg twice a day. She is on Coumadin 10 mg daily, valsartan 320 daily, Spiriva 18 mcg daily . She is on metformin twice a day, potassium 10 mEq daily, Protonix 40 daily, nadolol 10 mg twice a day, metformin 1000 twice a day, Xopenex, isosorbide. She is on glimepiride 4 mg twice a day , aspirin 81 daily. The patient will be followed as an outpatient to monitor her PT/INR end of this week. Edwige Kirby MD cc: [phone] TT: 07/01/2016 19:36:19 jn
== END 2016-07-01 12:35 | disposition home or self-care (01) | DRG 871 ==
LOC: TRCU 17:31
PROVIDERS: ADMIT Internal Medicine; ATTEND Internal Medicine
PROC: F07Z9FZ Gait Training/Functional Ambulation Treatment using Assistive, Adaptive, Supportive or Protective Equipment (ICD-10-PCS; principal; 2016-06-20)
PROC: F07Z5FZ Bed Mobility Treatment using Assistive, Adaptive, Supportive or Protective Equipment (ICD-10-PCS; 2016-06-20)
PROC: F07Z8FZ Transfer Training Treatment using Assistive, Adaptive, Supportive or Protective Equipment (ICD-10-PCS; 2016-06-20)
PROC: F07L6YZ Therapeutic Exercise Treatment of Musculoskeletal System - Lower Back / Lower Extremity using Other Equipment (ICD-10-PCS; 2016-06-20)
PROC: F08Z1FZ Dressing Techniques Treatment using Assistive, Adaptive, Supportive or Protective Equipment (ICD-10-PCS; 2016-06-25)
DX: A41.9 Sepsis, unspecified organism (principal); J18.9 Pneumonia, unspecified organism; J44.0 Chronic obstructive pulmonary disease with (acute) lower respiratory infection; J44.1 Chronic obstructive pulmonary disease with (acute) exacerbation; Z68.41 Body mass index [BMI] 40.0-44.9, adult; I11.0 Hypertensive heart disease with heart failure; I25.82 Chronic total occlusion of coronary artery; E11.649 Type 2 diabetes mellitus with hypoglycemia without coma; I50.9 Heart failure, unspecified; T80.218A Other infection due to central venous catheter, initial encounter; I27.2 Other secondary pulmonary hypertension; E66.01 Morbid (severe) obesity due to excess calories; R26.2 Difficulty in walking, not elsewhere classified; Z79.2 Long term (current) use of antibiotics; K31.89 Other diseases of stomach and duodenum; I25.10 Atherosclerotic heart disease of native coronary artery without angina pectoris; I48.2 Chronic atrial fibrillation; K31.819 Angiodysplasia of stomach and duodenum without bleeding; D64.9 Anemia, unspecified; I35.0 Nonrheumatic aortic (valve) stenosis; K21.9 Gastro-esophageal reflux disease without esophagitis; E78.5 Hyperlipidemia, unspecified; F17.200 Nicotine dependence, unspecified, uncomplicated; M19.90 Unspecified osteoarthritis, unspecified site; M79.672 Pain in left foot; M79.671 Pain in right foot; J45.909 Unspecified asthma, uncomplicated; L85.3 Xerosis cutis; Z96.653 Presence of artificial knee joint, bilateral; R23.4 Changes in skin texture; Y95 Nosocomial condition; Y83.8 Other surgical procedures as the cause of abnormal reaction of the patient, or of later complication, without mention of misadventure at the time of the procedure; Z85.3 Personal history of malignant neoplasm of breast; Z79.01 Long term (current) use of anticoagulants; Z79.84 Long term (current) use of oral hypoglycemic drugs

== ENCOUNTER 2016-06-24 11:41 | Day surgery (SDC) | payer MEDICARE, OTHER ==
[2016-06-24 12:02] VITALS: RESP 18; O2SAT 99
[2016-06-24] MEDS ORDERED: Lidocaine 2% Inj (20ml) ONE (13:15)
[2016-06-24 14:26] VITALS: BP 146/53; PULSE 69; TEMP 98
--- NOTE | 2016-06-24 17:53 | VASCULAR ---
PROCEDURE: Ultrasound and fluoroscopically placed left upper extremity PICC line. HISTORY: Sepsis. Possible infected port. Long-term IV antibiotics. Needs PICC line PHYSICIAN(S): Maldonado Barnett MD. TECHNIQUE: The relative risks and indications of the procedure were explained to the patient and consent obtained. The patient was placed supine on the arteriogram table and the left arm prepped and draped in the usual sterile fashion. A tourniquet was applied to the left axilla. 1% Xylocaine was used to anesthetize the skin and soft tissues at the puncture site above the elbow. The left basilic vein was punctured under direct ultrasound guidance with a micropuncture set. A 0.018 guidewire was advanced centrally and used to measure the length to the SVC/RA junction. A 5 [place] single-lumen PICC line 45 cm long was advanced to the SVC/RA junction. The catheter was flushed and secured. The patient tolerated the procedure well. IMPRESSION: 1. Ultrasound and fluoroscopically placed left upper extremity PICC line. A 5 [place] single-lumen PICC line 45 cm long was advanced to the SVC/RA junction.
== END 2016-06-24 14:40 | disposition home or self-care (01) ==
LOC: OPSURG 11:41
PROVIDERS: ATTEND Radiology Vascular & Interventional Radiology
DX: A41.9 Sepsis, unspecified organism (principal); Z79.2 Long term (current) use of antibiotics
CPT/HCPCS: 36569; 76937; 77001; C1751; J1644

== ENCOUNTER 2016-06-26 09:13 | Day surgery (SDC) | payer MEDICARE, OTHER ==
[2016-06-25 12:58] VITALS: BMI 39.4
[2016-06-26] MEDS ORDERED: Lidocaine 1% Inj (20ml) ONE (09:58)
[2016-06-26] MEDS ORDERED: Bupivacaine 0.5% Inj(30mL) ONE (09:58)
[2016-06-26] MEDS ORDERED: Midazolam 2 MG/2 ML VIAL ONE (10:26)
--- NOTE | 2016-06-26 11:24 | PCM.SURG1 ---
Surgeon's Initial Post Op Note - Surgeon's Notes Surgeon: Dr. Glynn Electrician Rectifier Maintenance: Dr. Key PGY-1 Type of Anesthesia: MAC, Local Pre-Operative Diagnosis: Infected Port Operative Findings: See Operative note Post-Operative Diagnosis: Infected Port Operation Performed: Portacath Removal Specimen/Specimens Removed: Portacath Estimated Blood Loss: EBL {In ML}: 1 Post-Op Condition: Good Date of Surgery/Procedure: 06/26/16 Time of Surgery/Procedure: 11:24
[2016-06-26] MEDS ORDERED: Lactated Ringer's 1,000 ML IV SCH (12:00)
[2016-06-26 12:14] VITALS: BP 116/65; PULSE 76; RESP 18; TEMP 98.2; O2SAT 93
--- NOTE | 2016-07-02 14:53 | OP ---
PROCEDURE DATE: 06/26/2016 ROOM: [facility]. SURGEON: Parviz Glynn M.D. HUMAN RESOURCES TRAINING MANAGER: DO Yesi, PGY-1. STORE SALES LEADER: Dr. Rivera. ANESTHESIA: MAC -- Marcaine 0.5-14 mL. PREOPERATIVE DIAGNOSES: 1. Recurrent infected Port-A-Cath with bacteremia. 2. Hypertensive coronary disease. 3. History of breast carcinoma. POSTOPERATIVE DIAGNOSES: 1. Recurrent infected Port-A-Cath with bacteremia. 2. Hypertensive coronary disease. 3. History of breast carcinoma. PROCEDURE: 06/26/2016: 1. Removal of a Port-A-Cath. 2. Intermediate layered closure 6 cm. OPERATIVE INDICATION: The patient is a 70-year-old morbidly obese female with recurring ba cteremias and a Port-A-Cath that has been in place for the past 8 years. She has not needed a Port-A -Cath for the past 3 years following treatment for breast cancer and has been treated with antibiotic s on previous bacteremias and sepsis and advised that when she recurs, that the port will be removed. Risks, benefits and alternatives with their anticipated outcomes were discussed with the patient an d she signs the informed consent. OPERATIVE NOTE: The patient was brought to the operating room, identified by her wrist band, undergo es timeout procedure, and is placed on the table in a supine manner and undergoes light intravenous s edation and oxygenation monitoring by the anesthesiologist. The right chest was prepped with Hibiclens, chlorhexidine preparation and the patient is aseptically draped. Infiltration over the palpable port is employed with bupivacaine plain and following this, incision m carlos over the port down through the skin, controlling hemostasis with coagulating . The port is exposed. The content of the pocket is cultured and the port is then brought out through the incision , removing adhesions with the cautery scalpel. The entry site into the subcutaneous tissue was close d with a pursestring suture of 3-0 Polysorb and the port is removed with gentle traction releasing ad hesions and pulling the port out completely and closing the catheter site to prevent air aspiration a nd embolism. The contents of the port are now evacuated onto a culturette by compressing the diaphragm of the port and the port is submitted to pathology for gross examination. The skin is closed with subcutaneous 3-0 Polysorb interrupted suture and 4-0 Biosyn subcuticular clos ure with Dermabond and Steri-Strip. A Tegaderm dressing is placed over same. The patient is awakene d, extubated and transported to the recovery room in a satisfactory condition. Sponge, instrument an d suture count were verified as correct at the end of the procedure. Estimated blood loss during thi s procedure was less than 10 mL of blood. The surgical orderly was present throughout the procedure from beginning to end and was extremely h elpful in removal of the port and closing the incision in a plastic layer. Parviz Glynn MD cc: [phone] TT: 07/02/2016 14:52:52 bridget
== END 2016-06-26 11:57 ==
LOC: SDS 09:13
PROVIDERS: ATTEND Surgery
DX: T80.212A Local infection due to central venous catheter, initial encounter (principal); T82.7XXA Infection and inflammatory reaction due to other cardiac and vascular devices, implants and grafts, initial encounter; I11.9 Hypertensive heart disease without heart failure; Z85.3 Personal history of malignant neoplasm of breast
CPT/HCPCS: 12031; 36590; 87070; 87075; 88300; J2250; J3010; J7120 ×2

== ENCOUNTER 2016-07-16 14:50 | Inpatient (IN) | payer MEDICARE, OTHER ==
--- NOTE | 2016-07-16 15:04 | ED PDOC ---
Arrival/HPI - General Time Seen by Provider: 07/16/16 14:58 Historian: Family (Daughter), EMS - History of Present Illness Narrative History of Present Illness (Text): 07/16/16 15:00 71 year old female with a past medical history that includes COPD, CHF, and anemia presents to the emergency department with altered mental status since yesterday. Daughter states family came home and saw her slumped over. Daughter reports the patient has had episodes of altered mental status in the past when the patient had a low blood count. Daughter reports at baseline, the patient is alert and oriented x 3. On arrival patient is lethargic, answering questions. Denies chest pain or bloody stool. Time/Duration: 24 hours Symptom Onset: Sudden Symptom Course: Unchanged Modifying Factors (Text): None Associated Symptoms (Text): None Past Medical History - Provider Review Nursing Documentation Reviewed: Yes - Infectious Disease Hx of Infectious Diseases: None - Tetanus Immunization Tetanus Immunization: Unknown - Cardiac Hx Pacemaker: No - Pulmonary Hx Chronic Obstructive Pulmonary Disease (COPD): Yes (+active smoker; +home O2) - Neurological Hx Paralysis: No - HEENT Hx HEENT Disorder: No - Renal Hx Renal Failure: Yes - Endocrine/Metabolic Hx Diabetes Mellitus Type 2: Yes Hx Hypothyroidism: Yes - Hematological/Oncological Hx Blood Transfusions: No Hx Blood Transfusion Reaction: No - Integumentary Hx Dermatological Disorder: Yes Other/Comment: +3 pitting edema ble redness dry skin, toenail was removed to b/ l great toes " yrs ago". small red area to nose - Musculoskeletal/Rheumatological Hx Musculoskeletal Disorders: No - Gastrointestinal Hx Gastrointestinal Disorders: (obese/reflux/gib) - Genitourinary/Gynecological Hx Reproductive Disorders: Yes (breast ca/ hyst) - Psychiatric Hx Emotional Abuse: No Hx Physical Abuse: No - Surgical History Hx Cardiac Catheterization: Yes Hx Hysterectomy: Yes Hx Joint Replacement: Yes (bilateral knee replacement) Other/Comment: L breast lumpectomy, h/o breast CA, rcw pac - Anesthesia Hx Anesthesia Reactions: No Hx Malignant Hyperthermia: No - Suicidal Assessment Feels Threatened In Home Enviroment: No Family/Social History - Physician Review Nursing Documentation Reviewed: Yes Family/Social History: Unknown Family HX Smoking Status: Current Some Days Smoker Hx Alcohol Use: Yes Hx Substance Use Treatment: No Allergies/Home Meds Allergies/Adverse Reactions: Allergies No Known Allergies Allergy (Verified 06/18/16 20:18) Review of Systems - Review of Systems Systems not reviewed;Unavailable: Altered Mental Status Cardiovascular: absent: Chest Pain Gastrointestinal: absent: Stool Changes, Hematochezia Physical Exam Vital Signs Reviewed: Yes Vital Signs Temp Pulse Resp BP Pulse Ox 07/17/16 00:36 113 H 07/16/16 23:25 70 18 165/74 H 100 07/16/16 22:04 99.2 F 102 H 18 152/93 H 07/16/16 19:18 102 H 18 152/93 H 100 07/16/16 17:16 70 18 145/52 L 100 07/16/16 15:25 99.2 F 80 24 146/70 97 07/16/16 15:04 18 Temperature: Afebrile Blood Pressure: Normal Pulse: Regular Respiratory Rate: Normal Appearance: Positive for: Non-Toxic, Other (Morbidly obese) Pain Distress: None Mental Status: Positive for: Lethargic - Systems Exam Head: Present: Atraumatic, Normocephalic Pupils: Present: PERRL Extroacular Muscles: Present: EOMI Conjunctiva: Present: Normal Mouth: Present: Moist Mucous Membranes Neck: Present: Normal Range of Motion Respiratory/Chest: Present: Good Air Exchange, Rhonchi (mainly on the right), Other (Healing wound over chest wall from previous port. No signs of infection) . No: Respiratory Distress, Accessory Muscle Use Cardiovascular: Present: Regular Rate and Rhythm, Normal S1, S2. No: Murmurs Abdomen: Present: Normal Bowel Sounds. No: Tenderness, Distention, Peritoneal Signs Back: Present: Normal Inspection Upper Extremity: Present: Normal Inspection. No: Cyanosis, Edema Lower Extremity: Present: Edema (2+ bilateral pitting edema) Neurological: Present: GCS=15, CN II-XII Intact, Other (No focal deficits) Skin: Present: Warm, Dry, Normal Color. No: Rashes Psychiatric: Present: Normal Concentration, Lethargic Medical Decision Making ED Course and Treatment: EKG shows atrial fibrillation at 77 BPM with nonspecific IVCD, ST and T-wave changes in I, aVL, and III; appears similar to prior on 06/08/16 07/16/16 18:50 - Critical Care Critical Care Minutes: 60 minutes - Lab Interpretations Microbiology Results: Microbiology Results 07/16/16 15:15 Blood-Venous Blood Culture - Preliminary NO GROWTH AFTER 24 HOURS 07/16/16 15:00 Blood-Venous Blood Culture - Preliminary NO GROWTH AFTER 24 HOURS 07/16/16 15:00 Urine Urine Culture - Preliminary Gram Negative Sameer Lab Results: 07/16/16 15:00 07/16/16 15:00 Lab Results 07/16/16 17:00: Blood Type AB NEGATIVE, Antibody Screen Negative, Crossmatch See Detail, BBK History Checked Patient has bt 07/16/16 16:55: pCO2 60 H, pO2 208.0 H, HCO3 25.7, ABG pH 7.24 L, ABG Total CO2 27.5, ABG O2 Saturation 98.6 H, ABG O2 Content 9.7 L, ABG Base Excess -1.7, ABG Hemoglobin 6.9 L, ABG Carboxyhemoglobin 4.0 H, POC ABG HHb (Measured) 1.3, ABG Methemoglobin 0.4, ABG O2 Capacity 9.8 L, Hgb O2 Saturation 94.4 L, FiO2 50.0 07/16/16 16:00: pCO2 63 H, pO2 372.0 H, HCO3 27.0, ABG pH 7.24 L, ABG Total CO2 28.9 H, ABG O2 Saturation 98.6 H, ABG Base Excess -1.7, ABG Potassium 3.9, Glucose 135 H, Lactate 0.9, FiO2 100.0, Sodium 139.0, Chloride 112.0 H, Arterial Blood Potassium 3.9 07/16/16 15:00: Serum Osmolality 313 H, Alcohol, Quantitative < 10 07/16/16 15:00: WBC 8.0 D, RBC 2.87 L, Hgb 7.9 L, Hct 26.3 L, MCV 91.6, MCH 27.5, MCHC 30.0 L, RDW 20.4 H, Plt Count 278, MPV 11.0, Gran % 69.1 H, Lymph % ( Auto) 17.5 L, [place] % (Auto) 10.5 H, Eos % (Auto) 2.6, Baso % (Auto) 0.3, Gran # 5.51, Lymph # 1.4, [place] # 0.8 H, Eos # 0.2, Baso # 0.02 07/16/16 15:00: Sodium 140, Potassium 4.2, Chloride 102, Carbon Dioxide 27, Anion Gap 15, BUN 54 H, Creatinine 1.4, Est GFR ( Amer) 45, Est GFR (Non- Af Amer) 37, Random Glucose 153 H, Calcium 8.8, Total Bilirubin 0.6, AST 22, ALT 30, Alkaline Phosphatase 79, Troponin I 0.09 D, NT-Pro-B Natriuret Pep 4050 H, Total Protein 6.9, Albumin 3.9, Globulin 3.0, Albumin/Globulin Ratio 1.3 07/16/16 15:00: Urine Color Yellow, Urine Appearance Sl cloudy, Urine pH 6.0, Ur Specific [place] 1.020, Urine Protein 30 H, Urine Glucose (UA) Negative, Urine Ketones Negative, Urine Blood Large H, Urine Nitrate Positive H, Urine Bilirubin Negative, Urine Urobilinogen 0.2, Ur Leukocyte Esterase Small H, Urine RBC 25 - 30, Urine WBC 2 - 5, Ur Epithelial Cells 1 - 3, Amorphous Sediment Moderate, Urine Bacteria Large, Urine Other Fiber 07/16/16 15:00: PT 51.8 H*, INR 4.80 H* - RAD Interpretation Radiology Orders: 07/16/16 15:01 CHEST PORTABLE [RAD] Stat - EKG Interpretation Interpreted by ED Physician: Yes Type: 12 lead EKG - Medication Orders Current Medication Orders: Acetaminophen (Tylenol 325mg Tab) 650 mg PO Q6H PRN PRN Reason: Fever >100.4 F Albuterol/Ipratropium (Duoneb 3 Mg/0.5 Mg (3 Ml) Ud) 3 ml IH Q2H PRN PRN Reason: Shortness of Breath Albuterol/Ipratropium (Duoneb 3 Mg/0.5 Mg (3 Ml) Ud) 3 ml IH Q6H [facility] Last Admin: 07/17/16 20:50 Dose: 3 ml Aspirin (Ecotrin) 81 mg PO DAILY [facility] Last Admin: 07/17/16 11:34 Dose: 81 mg Furosemide (Lasix) 40 mg IVP DAILY [facility] Last Admin: 07/17/16 11:26 Dose: 40 mg Glimepiride (Amaryl) 4 mg PO BID [facility] Last Admin: 07/16/16 21:00 Dose: Guaifenesin (Mucinex La) 600 mg PO BID [facility] Last Admin: 07/17/16 17:15 Dose: 600 mg Hydralazine HCl (Apresoline) 50 mg PO BID [facility] Last Admin: 07/17/16 17:11 Dose: 50 mg Vancomycin HCl (Vancomycin 1gm) 1 gm in 250 mls @ 167 mls/hr IVPB DAILY [facility] PRN Reason: Protocol Last Admin: 07/17/16 11:40 Dose: 167 mls/hr Cefepime HCl (Maxipime 1gm) 1 gm in 100 mls @ 100 mls/hr IVPB Q24H [facility] PRN Reason: Protocol Last Admin: 07/17/16 11:25 Dose: 100 mls/hr Insulin Human Lispro (Humalog High) 0 units SC ACHS [facility] PRN Reason: Protocol Last Admin: 07/17/16 22:11 Dose: 2 units Isosorbide Mononitrate (Imdur) 60 mg PO DAILY [facility] Last Admin: 07/17/16 11:35 Dose: 60 mg Methylprednisolone (Solu-Medrol) 30 mg IVP BID [facility] Last Admin: 07/17/16 18:17 Dose: 30 mg Nadolol (Corgard) 10 mg PO BID [facility] Last Admin: 07/17/16 17:10 Dose: 10 mg Nicotine (Nicoderm Cq) 1 patch TD DAILY [facility] Last Admin: 07/17/16 11:20 Dose: 1 patch Pantoprazole Sodium (Protonix Ec Tab) 40 mg PO ACB [facility] Last Admin: 07/17/16 08:48 Dose: 40 mg Potassium Chloride (Klor-Con 10) 10 meq PO DAILY [facility] Last Admin: 07/17/16 11:29 Dose: 10 meq Sitagliptin Phosphate (Januvia) 50 mg PO DAILY [facility] Sodium Chloride ([place] Nasal [place]) 0 ml NS BID PRN PRN Reason: Dry nasal passages Valsartan (Diovan) 320 mg PO DAILY [facility] Last Admin: 07/17/16 11:34 Dose: 320 mg Discontinued Medications Albuterol/Ipratropium (Duoneb 3 Mg/0.5 Mg (3 Ml) Ud) 3 ml IH Q15M [facility] Stop: 07/16/16 15:46 Last Admin: 07/16/16 16:35 Dose: 3 ml Albuterol/Ipratropium (Duoneb 3 Mg/0.5 Mg (3 Ml) Ud) 3 ml IH Q2 [facility] Stop: 07/17/16 00:01 Last Admin: 07/16/16 22:40 Dose: Furosemide (Lasix) 60 mg IVP STAT [facility] Stop: 07/16/16 20:58 Last Admin: 07/16/16 21:00 Dose: 60 mg Ceftriaxone Sodium (Rocephin 1 Gram Ivpb) 1 gm in 100 mls @ 200 mls/hr IVPB STAT [facility] PRN Reason: Protocol Last Admin: 07/16/16 16:45 Dose: 200 mls/hr Azithromycin (Zithromax 500mg In Ns) 500 mg in 250 mls @ 167 mls/hr IVPB STAT [facility] PRN Reason: Protocol Stop: 07/16/16 17:53 Last Admin: 07/16/16 17:43 Dose: 167 mls/hr Methylprednisolone (Solu-Medrol) 125 mg IVP STAT ST[facility] Stop: 07/16/16 15:04 Last Admin: 07/16/16 15:50 Dose: 125 mg Methylprednisolone (Solu-Medrol) 40 mg IVP BID [facility] Last Admin: 07/17/16 11:35 Dose: 40 mg Pneumococcal Polyvalent Vaccine (Pneumovax 23 Vaccine) 0.5 ml IM .ONCE ONE Stop: 07/16/16 22:26 - Scribe Statement The provider has reviewed the documentation as recorded by the Martina Virk Provider Scribe Attestation: All medical record entries made by the Nancyibjanel were at my direction and personally dictated by me. I have reviewed the chart and agree that the record accurately reflects my personal performance of the history, physical exam, medical decision making, and the department course for this patient. I have also personally directed, reviewed, and agree with the discharge instructions and disposition. Disposition/Present on Arrival - Present on Arrival Any Indicators Present on Arrival: No History of DVT/PE: No History of Uncontrolled Diabetes: No Urinary Catheter: No History Surgical Site Infection Following: None - Disposition Have Diagnosis and Disposition been Completed?: Yes Diagnosis: COPD exacerbation, Acute hypercapnic respiratory failure, Altered mental status Disposition: HOSPITALIZED Disposition Time: 18:32 Patient Problems: Current Active Problems Problem Status Onset Acute hypercapnic respiratory failure Acute Altered mental status Acute COPD exacerbation Acute Condition: GUARDED
--- NOTE | 2016-07-16 15:27 | RAD ---
HISTORY: ams COMPARISON: 06/11/2016 FINDINGS: LUNGS: Exam is limited given patient's ability to cooperate and portable status and large body habitus. 2 frontal views were obtained. On the 1st image there is vague hazy opacity the root right lung base than on the 2nd they image with greater penetration this appears clear. Visualization is limited regarding the left retrocardiac lung base due to the cardiomegaly and soft tissue summation/ large body habitus. . Pulmonary venous congestion is a consideration. This may be chronic PLEURA: No significant pleural effusion identified, no pneumothorax apparent. CARDIOVASCULAR: Cardio megaly OSSEOUS STRUCTURES: No significant abnormalities. VISUALIZED UPPER ABDOMEN: Normal. OTHER FINDINGS: The prior right central line has been removed IMPRESSION: Limited exam. Pulmonary venous congestion -is suspect. This may be chronic. The hazy opacity at the right lung base inconstant between the 2 exams. No dense consolidation noted Cardiomegaly as before
[2016-07-16 15:28] VITALS: BMI 41.8
[2016-07-16 15:46] LABS: URINE BILIRUBIN NEGATIVE (NEGATIVE); URINE BLOOD LARGE (NEGATIVE); URINE GLUCOSE (UA) NEGATIVE (NEGATIVE); URINE KETONE NEGATIVE (NEGATIVE); URINE LEUKOCYTE ESTERASE SMALL Leu/uL (NEGATIVE); URINE PROTEIN 30 mg/dL (<30 mg/dL); URINE UROBILINOGEN 0.2 E.U./dL (<1 E.U./dL)
[2016-07-16 15:47] LABS: URINE APPEARANCE SL CLOUDY (CLEAR); URINE COLOR YELLOW (YELLOW)
[2016-07-16] MEDS: Albuterol-Ipratrop 3 mg / 0.5 (3 ml) UD IH SCH ×5 (15:50→22:40)
[2016-07-16 15:53] LABS: ALB/GLOB RATIO 1.3 (1.1-1.8); BILIRUBIN,TOTAL 0.6 mg/dL (0.2-1.3); CALCIUM 8.8 mg/dL (8.4-10.5); POTASSIUM 4.2 mmol/L (3.6-5.0); TOTAL PROTEIN 6.9 g/dL (5.8-8.3)
[2016-07-16 16:05] LABS: TROPONIN I 0.09 ng/mL
[2016-07-16 16:11] LABS: ARTERIAL BLOOD GAS PH 7.24 (7.35-7.45)
[2016-07-16] MEDS ORDERED: cefTRIAXone 1 gm 1 GM/100 ML BAG IVPB SCH (16:23)
[2016-07-16] MEDS ORDERED: Azithromycin 500MG/NS 250ml 500 MG/250 ML BAG IVPB STA (16:24)
[2016-07-16 16:49] LABS: ADD MANUAL DIFF? NO
[2016-07-16 16:52] LABS: BASO # 0.02 K/mm3 (0.0-2.0); BASO % 0.3 % (0.0-3.0); EOS # 0.2 (0.0-0.7); EOS % 2.6 % (1.5-5.0); GRAN # 5.51 (1.4-6.5); GRAN % 69.1 % (50.0-68.0); HEMATOCRIT 26.3 % (36.0-48.0); LYMPH # 1.4 (1.2-3.4); LYMPH % 17.5 % (22.0-35.0); MEAN CELL VOLUME 91.6 fL (80.0-105.0); MEAN CORPUSCULAR HEMOGLOBIN 27.5 pg (25.0-35.0); MONO # 0.8 (0.1-0.6); MONO % 10.5 % (1.0-6.0); PLATELET COUNT 278 10^3/uL (120.0-450.0); RED CELL DISTRIBUTION WIDTH 20.4 % (11.5-14.5)
[2016-07-16 17:04] LABS: ARTERIAL BLOOD GAS HCO3 25.7 mmol/L (21-28); ARTERIAL BLOOD GAS O2 CAPACITY 9.8 mL/dl (16-24); ARTERIAL BLOOD GAS O2 CONTENT 9.7 ML/dl (15-23); ARTERIAL BLOOD GAS PH 7.24 (7.35-7.45); ARTERIAL BLOOD HGB O2 SAT 94.4 % (95.0-98.0); HHB 1.3 % (0-5); METHEMOGLOBIN 0.4 % (0.0-3.0)
[2016-07-16 17:18] LABS: URINE BACTERIA LARGE (NEG); URINE RBC 25 - 30 /hpf (0-2)
[2016-07-16 17:19] LABS: URINE AMORPHOUS SEDIMENT MODERATE
--- NOTE | 2016-07-16 18:16 | CP.PCM.CON ---
History of Present Illness - History of Present Illness History of Present Illness: 71 year old female with PMH includes COPD on home 02, active smoker, CHF, IDDM 2 , Hx breast Cancer (rcw pac) s/p L breast lumpectomy, and Hx GI bleed chronic anemia presents to the emergency department with altered mental status since yesterday. Daughter reports this has happened before when the patient had a low blood count. Daughter reports at baseline, the patient is alert and oriented x 3. On arrival patient is lethargic, answering questions. At ED arrival T 99.2 rectal, P80, RR 24 shallow, 146/70. 97POx Mask. 100 on biPAP CO2 not changed IPAP increased Received Duoneb x 1, solumedrol 125, Azithromax, ceftriaxone EKG shows atrial fibrillation at 77 BPM with nonspecific IVCD, ST and T-wave changes in I, aVL, and III; appears similar to prior on 06/08/16 Denies chest pain or bloody stool. AMS - ISchemic Metabolic Iatrogenic Resp Acid Non-pily MA Past Patient History - Infectious Disease Hx of Infectious Diseases: None - Tetanus Immunizations Tetanus Immunization: Unknown - Past Medical History & Family History Past Medical History?: Yes - Past Social History Smoking Status: Current Some Days Smoker - CARDIAC Hx Pacemaker: No - PULMONARY Hx Chronic Obstructive Pulmonary Disease (COPD): Yes (+active smoker; +home O2) - NEUROLOGICAL Hx Paralysis: No - HEENT Hx HEENT Problems: No - RENAL Hx Renal Failure: Yes - ENDOCRINE/METABOLIC Hx Diabetes Mellitus Type 2: Yes Hx Hypothyroidism: Yes - HEMATOLOGICAL/ONCOLOGICAL Hx Blood Transfusions: No Hx Blood Transfusion Reaction: No - INTEGUMENTARY Hx Dermatological Problems: Yes Other/Comment: +3 pitting edema ble redness dry skin, toenail was removed to b/ l great toes " yrs ago". small red area to nose - MUSCULOSKELETAL/RHEUMATOLOGICAL Hx Musculoskeletal Disorders: No - GASTROINTESTINAL Hx Gastrointestinal Disorders: (obese/reflux/gib) - GENITOURINARY/GYNECOLOGICAL Hx Reproductive Disorders: Yes (breast ca/ hyst) - PSYCHIATRIC Hx Emotional Abuse: No Hx Physical Abuse: No - SURGICAL HISTORY Hx Cardiac Catheterization: Yes Hx Hysterectomy: Yes Hx Joint Replacement: Yes (bilateral knee replacement) Other/Comment: L breast lumpectomy, h/o breast CA, rcw pac - ANESTHESIA Hx Anesthesia Reactions: No Hx Malignant Hyperthermia: No Meds Allergies/Adverse Reactions: Allergies Allergy/AdvReac Type Severity Reaction Status Date / Time No Known Allergies Allergy Verified 06/18/16 20:18 - Medications Medications: Current Medications Ceftriaxone Sodium (Rocephin 1 Gram Ivpb) 1 gm in 100 mls @ 200 mls/hr IVPB STAT [facility] PRN Reason: Protocol Last Admin: 07/16/16 16:45 Dose: 200 mls/hr Results - Vital Signs Recent Vital Signs: Last Vital Signs Temp 99.2 F 07/16/16 15:25 Pulse 70 07/16/16 17:16 Resp 18 07/16/16 17:16 BP 145/52 L 07/16/16 17:16 Pulse Ox 100 07/16/16 17:16 - Labs Result Diagrams: 07/16/16 15:00 07/16/16 15:00 Labs: Laboratory Results - last 24 hr 07/16/16 07/16/16 07/16/16 15:00 15:00 15:00 WBC 8.0 D RBC 2.87 L Hgb 7.9 L Hct 26.3 L MCV 91.6 MCH 27.5 MCHC 30.0 L RDW 20.4 H Plt Count 278 MPV 11.0 Gran % 69.1 H Lymph % (Auto) 17.5 L [place] % (Auto) 10.5 H Eos % (Auto) 2.6 Baso % (Auto) 0.3 Gran # 5.51 Lymph # 1.4 [place] # 0.8 H Eos # 0.2 Baso # 0.02 pCO2 pO2 HCO3 ABG pH ABG Total CO2 ABG O2 Saturation ABG O2 Content ABG Base Excess ABG Hemoglobin ABG Carboxyhemoglobin POC ABG HHb (Measured) ABG Methemoglobin ABG O2 Capacity ABG Potassium Hgb O2 Saturation Glucose Lactate FiO2 Sodium 140 Potassium 4.2 Chloride 102 Carbon Dioxide 27 Anion Gap 15 BUN 54 H Creatinine 1.4 Est GFR ( Amer) 45 Est GFR (Non-Af Amer) 37 Random Glucose 153 H Calcium 8.8 Total Bilirubin 0.6 AST 22 ALT 30 Alkaline Phosphatase 79 Troponin I 0.09 D NT-Pro-B Natriuret Pep 4050 H Total Protein 6.9 Albumin 3.9 Globulin 3.0 Albumin/Globulin Ratio 1.3 Arterial Blood Potassium Urine Color Yellow Urine Appearance Sl cloudy Urine pH 6.0 Ur Specific [place] 1.020 Urine Protein 30 H Urine Glucose (UA) Negative Urine Ketones Negative Urine Blood Large H Urine Nitrate Positive H Urine Bilirubin Negative Urine Urobilinogen 0.2 Ur Leukocyte Esterase Small H Urine RBC 25 - 30 Urine WBC 2 - 5 Ur Epithelial Cells 1 - 3 Amorphous Sediment Moderate Urine Bacteria Large Urine Other Fiber 07/16/16 07/16/16 16:00 16:55 WBC RBC Hgb Hct MCV MCH MCHC RDW Plt Count MPV Gran % Lymph % (Auto) [place] % (Auto) Eos % (Auto) Baso % (Auto) Gran # Lymph # [place] # Eos # Baso # pCO2 63 H 60 H pO2 372.0 H 208.0 H HCO3 27.0 25.7 ABG pH 7.24 L 7.24 L ABG Total CO2 28.9 H 27.5 ABG O2 Saturation 98.6 H 98.6 H ABG O2 Content 9.7 L ABG Base Excess -1.7 -1.7 ABG Hemoglobin 6.9 L ABG Carboxyhemoglobin 4.0 H POC ABG HHb (Measured) 1.3 ABG Methemoglobin 0.4 ABG O2 Capacity 9.8 L ABG Potassium 3.9 Hgb O2 Saturation 94.4 L Glucose 135 H Lactate 0.9 FiO2 100.0 50.0 Sodium 139.0 Potassium Chloride 112.0 H Carbon Dioxide Anion Gap BUN Creatinine Est GFR ( Amer) Est GFR (Non-Af Amer) Random Glucose Calcium Total Bilirubin AST ALT Alkaline Phosphatase Troponin I NT-Pro-B Natriuret Pep Total Protein Albumin Globulin Albumin/Globulin Ratio Arterial Blood Potassium 3.9 Urine Color Urine Appearance Urine pH Ur Specific [place] Urine Protein Urine Glucose (UA) Urine Ketones Urine Blood Urine Nitrate Urine Bilirubin Urine Urobilinogen Ur Leukocyte Esterase Urine RBC Urine WBC Ur Epithelial Cells Amorphous Sediment Urine Bacteria Urine Other
[2016-07-16 18:52] LABS: ARTERIAL BLOOD GAS HCO3 24.7 mmol/L (21-28); ARTERIAL BLOOD GAS O2 CAPACITY 9.6 mL/dl (16-24); ARTERIAL BLOOD GAS O2 CONTENT 9.4 ML/dl (15-23); ARTERIAL BLOOD GAS PH 7.26 (7.35-7.45); ARTERIAL BLOOD HGB O2 SAT 94.5 % (95.0-98.0); CARBOXYHEMOGLOBIN 3.6 % (0.5-1.5); HHB 1.5 % (0-5); METHEMOGLOBIN 0.4 % (0.0-3.0)
--- NOTE | 2016-07-16 19:01 | CARD ---
APPROVED REPORT EKG Measurement Heart [id number] <Conclusion> Atrial fibrillation Nonspecific intraventricular block Inferior infarct, age undetermined Possible Anterolateral infarct, age undetermined Abnormal ECG
[2016-07-16] MEDS ORDERED: Albuterol-Ipratrop 3 mg / 0.5 (3 ml) UD IH PRN (19:15)
[2016-07-16 19:20] LABS: ALCOHOL SERUM < 10 mg/dL (0-10)
[2016-07-16 19:46] LABS: OSMOLALITY,SERUM 313 mosm/kg (271-296)
[2016-07-16 20:02] LABS: INR 4.8 (0.93-1.08)
--- NOTE | 2016-07-16 20:02 | HP ---
ADDENDUM The patient was reevaluated. Since her ABG shows CO2 narcosis with CO2 of 63 she is currently on BiPAP, so will be transferred to ICU where she will be closely monitored. Will start her on IV st eroids and monitor her blood sugar closely. Dr. Sandra will be consulted and will follow up. Will give her 1 blood transfusion and follow up her CBC and CMP in a.m. Edwige Kirby MD cc: [phone] TT: 07/16/2016 20:01:41 bridget
[2016-07-16 20:26] LABS: TROPONIN I 0.09 ng/mL
[2016-07-16] MEDS ORDERED: Insulin Reg-LOW-Coverage SC SCH (22:00)
[2016-07-16] MEDS ORDERED: Insulin Reg-MEDIUM-Coverage SC SCH (22:00)
[2016-07-16] MEDS ORDERED: MethylPREDNISolone 40 mg Vial IV SCH (22:00)
[2016-07-16] MEDS ORDERED: Pneumococcal 23-Valent Vaccine IM ONE (22:25)
--- NOTE | 2016-07-16 23:25 | HP ---
HISTORY OF PRESENT ILLNESS: The patient is a 71-year-old who came to Emergency Room because of incre asing shortness of breath. She has been complaining of cough and congestion and also complained of b ilateral leg swelling. The patient is very noncompliant and she sits all day long watching TV and, a ccording to daughter, she is a chain smoker and she was seen by Dr. Oneill and had iron transfusions g iven few days ago. According to Dr. Oneill, she was getting short of breath even at that time. Her s hortness of breath got worse, so she called ambulance and she was brought to the Emergency Room. Den ies any fever or chills. Complained of cough with phlegm. Denies any chest pain. Does complain of shortness of breath. No headache, no dizziness, no blurry vision. PAST MEDICAL HISTORY: Significant for: 1. Hypertension. 2. Non-insulin dependent diabetes. 3. Pulmonary hypertension. 4. Coronary artery disease, status post cardiac catheterization 2 years ago and was found to have ri ght carotic artery complete occlusion with good collaterals. 5. According to daughter, she has been somewhat confused for the last 24 hours. 6. Morbid obesity. 7. Bilateral groin fungal infection. 8. Congestive hepatomegaly. 9. Cirrhosis of liver. ALLERGIES: She is not allergic to any medications. MEDICATIONS AT HOME: She is on hydralazine 50 mg twice a day, Coumadin 10 mg daily, Diovan 320 daily , Spiriva 18 mcg daily, Januvia 50 daily, potassium 10 mEq daily, Protonix. Nadolol, metformin, Xope nex, isosorbide, Motrin and Glimepiride. SOCIAL HISTORY: She lives by herself. She is a heavy smoker and denies alcohol use. PHYSICAL EXAMINATION: GENERAL: She is sleepy, but arousable. VITAL SIGNS: She has temperature 99.2, pulse 80, respirations 18, blood pressure ____/93. LUNGS: Bilateral fair airflow, but few expiratory rhonchi and diffusely decreased breath sounds in t he lower lung region. HEART: S1, S2 audible, irregular rate control. ABDOMEN: Soft, obese, nontender, no rebound, no guarding. NEUROLOGIC: She is sleepy, but arousable. EXTREMITIES: Bilateral leg +1 edema. LABORATORY DATA: WBC is 8.0, hemoglobin 7.9, hematocrit 26.3, platelet 278. Chemistry: Sodium 140, potassium 4.2, chloride 102, CO2 of 27, BUN 54, creatinine 1.4, blood sugar 153 and BNP 4050. Urine is positive for nitrites and small leukocyte. X-ray chest shows pulmonary venous congestion. EKG s hows AFib, nonspecific intraventricular block. ASSESSMENT: 1. Altered mental status, probably secondary to hypoxia. 2. Chronic obstructive pulmonary disease. 3. Hypertension. 4. Non-insulin dependent diabetes. 5. Chronic atrial fibrillation. 6. Coronary artery disease. 7. Chronic anemia. 8. History of gastric arteriovenous malformation. 9. Status post endoscopic submucosal resection of the polyp. PLAN: We will monitor her blood sugar, will continue nebulizer treatment. Will start IV steroids. Monitor blood sugar. IV diuretic has been started. We will call cardiology consult and will reevalu ate the patient in a.m. Edwige Kirby MD cc: [phone] TT: 07/16/2016 23:24:58 [email or web address]
--- NOTE | 2016-07-16 23:26 | CON ---
DATE: 07/16/2016 HISTORY OF PRESENT ILLNESS: The patient is a 71-year-old female with multiple admissions to the medical ICU in [facility] in the past, who presents with acute altered mental status and decreased ability to be aroused, increased shortness of breath in the Emergency Room. The patient's family is at bedside and explained that the patient has been smoking more recently, and after smoking a cigarette earlier today, was found to be difficult to arouse, shortness of breath, difficulty speaking in sentences. Upon seeing the patient in the ER, she was placed on BiPAP, arousable to voice and touch, but not able to fully conversate and follow commands. PAST MEDICAL HISTORY: Diabetes, hypertension, hyperlipidemia, CAD, COPD, pulmonary hypertension, right heart failure, chronic anemia. ALLERGIES: No known drug allergies. HOME MEDICATIONS: Hydralazine, Coumadin, Diovan, Spiriva, Janumet, Protonix, nicotine patch, metformin, Xopenex, isosorbide, glimepiride, Lasix, aspirin. SOCIAL HISTORY: The patient has a [id number] smoking history. Continues to smoke, no alcohol or IV drug abuse. LABORATORY RESULTS: White blood cell count 8, hemoglobin 8, platelet count 278. Sodium 140, potassium 4.2, chloride 102, bicarb 27, BUN 54, creatinine 1.4 , glucose 153. ProBNP 4000. Arterial blood gas showed ABG pH 7.24, pO2 of 208 on 50%, pCO2 of 60. Chest x-ray reviewed by me showed difficult to view lung bases, mild pulmonary vascular congestion, no obvious infiltrate. PHYSICAL EXAMINATION: VITAL SIGNS: Temp 99.2, heart rate 70, blood pressure 145/52, respiratory rate 18, 100% on BiPAP 50%, 16/5, respiratory rate is 22. HEENT: The pupils are equal, round, reactive to light. Extraocular eye movements are intact. Dry mucous membranes. BiPAP mask on face. NECK: No JVD. CHEST: Scattered rhonchi, decreased breath sounds at the bases, poor air entry. CARDIOVASCULAR: S1, S2 is heard, irregular without any murmurs. ABDOMEN: Soft, nontender, without any rebound or guarding. EXTREMITIES: Show bilateral erythema with further ulceration on the patient's toes and redness, +2 pedal edema. GENITOURINARY: Rosas is in place. The patient moves all extremities. NEUROLOGIC: The patient is oriented, awake, alertness. ASSESSMENT AND PLAN: The patient is a 71-year-old female with presumed chronic obstructive pulmonary disease exacerbation, also found to have a urinary tract infection on UA. At this time, the patient will continue on BiPAP repeat arterial blood gas to be done. The patient has obstructive sleep apnea, chronic obstructive pulmonary disease and possibly obesity hypoventilation disorder the patient is a chronic CO2 retainer. At this time, the patient is more lethargic, which possibly could be from chronic obstructive pulmonary disease exacerbation, CO2 narcosis. Therefore, at this time, we will see what the new arterial blood gas shows after the patient's settings have been changed. The patient should be off of all medications that can cause alveolar hypoventilation. The patient should be placed on albuterol with ipratropium q. 4 hours standing. The patient should also be started on Solu-Medrol 40 mg b.i.d., nicotine patch to be placed. The patient also should have sputum cultures, urine culture, blood cultures sent. The patient empirically treated with Zithromax and Rocephin in the ER for which the patient was treated for community-acquired pneumonia, for chronic obstructive pulmonary disease exacerbation and the patient's presumed urinary tract infection. The patient's blood pressure is currently under control. The patient has diabetes, she will be placed on insulin sliding scale, hold all oral hypoglycemics. The patient is in atrial fibrillation, was on Coumadin at home. Currently right now, hemoglobin is 7.9, which is mildly lower no signs of bleeding right now, Coumadin can be started. The patient also needs to have an INR checked at this time prior to Coumadin starting. SCDs for DVT prophylaxis. The patient's cellulitis also looks pretty rampant. Need to have ID consult and follow. The patient was on treatment prior 2 weeks ago. May need to upgrade antibiotics thus far. TOTAL CRITICAL CARE TIME: 60 minutes. Braden Gaitan M.D. cc: [id number] TT: 07/16/2016 23:26:35 Confirmation # [id number] Dictation # [id number] MTDD
[2016-07-17 03:23] LABS: BASO # 0.01 K/mm3 (0.0-2.0); BASO % 0.1 % (0.0-3.0); EOS % 0.1 % (1.5-5.0); GRAN # 6.29 (1.4-6.5); GRAN % 88.6 % (50.0-68.0); HEMATOCRIT 25.7 % (36.0-48.0); LYMPH # 0.7 (1.2-3.4); LYMPH % 9.9 % (22.0-35.0); MEAN CELL VOLUME 91.8 fL (80.0-105.0); MEAN CORPUSCULAR HEMOGLOBIN 27.9 pg (25.0-35.0); MEAN CORPUSCULAR HGB CONC 30.4 g/dl (31.0-37.0); MONO # 0.1 (0.1-0.6); MONO % 1.3 % (1.0-6.0); PLATELET COUNT 214 10^3/uL (120.0-450.0); RED CELL DISTRIBUTION WIDTH 20.4 % (11.5-14.5); WHITE BLOOD COUNT 7.1 10^3/ul (4.5-11.0)
[2016-07-17 03:31] LABS: ALB/GLOB RATIO 1.2 (1.1-1.8); BILIRUBIN,TOTAL 0.5 mg/dL (0.2-1.3); CALCIUM 8.7 mg/dL (8.4-10.5); MAGNESIUM 2.1 mg/dL (1.7-2.2); PHOSPHOROUS 4.7 mg/dL (2.5-4.5); POTASSIUM 4.2 mmol/L (3.6-5.0); TOTAL PROTEIN 6.8 g/dL (5.8-8.3)
[2016-07-17 03:36] LABS: PARTIAL THROMBOPLASTIN TIME 46.8 Seconds (23.7-30.8)
[2016-07-17 03:40] LABS: INR 4.89 (0.93-1.08)
[2016-07-17 03:41] LABS: TROPONIN I 0.07 ng/mL
[2016-07-17 05:50] LABS: ADD MANUAL DIFF? NO
[2016-07-17] MEDS: Albuterol-Ipratrop 3 mg / 0.5 (3 ml) UD IH SCH ×3 (08:10→20:50)
[2016-07-17] MEDS: Insulin Lispro (HUMAlog) HIGH Coverage SC SCH ×5 (08:45→22:11)
[2016-07-17] MEDS: Pantoprazole 40 mg EC Tab PO SCH (08:48)
--- NOTE | 2016-07-17 08:49 | RAD ---
HISTORY: eval for infiltrate COMPARISON: 06/11/2016 FINDINGS: LUNGS: Bilateral perihilar infiltrates common nonspecific. Mild congestive change. Possible pulmonary edema versus bilateral pneumonia. Followup advised. PLEURA: Probable small left pleural effusion. No right pleural effusion. No pneumothorax. CARDIOVASCULAR: Normal. OSSEOUS STRUCTURES: No significant abnormalities. VISUALIZED UPPER ABDOMEN: Normal. OTHER FINDINGS: None. IMPRESSION: Bilateral perihilar infiltrate mild congestive change. Small left pleural effusion. Congestive heart failure/pulmonary edema versus bilateral pneumonia. Followup advised.
[2016-07-17 09:58] LABS: ARTERIAL BLOOD GAS HCO3 29.5 mmol/L (21-28); ARTERIAL BLOOD GAS O2 CAPACITY 10.4 mL/dl (16-24); ARTERIAL BLOOD GAS O2 CONTENT 10.3 ML/dl (15-23); ARTERIAL BLOOD HGB O2 SAT 96.5 % (95.0-98.0); CARBOXYHEMOGLOBIN 2.3 % (0.5-1.5); HHB 1.2 % (0-5)
--- NOTE | 2016-07-17 09:58 | RAD ---
HISTORY: Chest congestion COMPARISON: 07/16/2016 FINDINGS: LUNGS: Decreased vascular congestion. PLEURA: No significant pleural effusion identified, no pneumothorax apparent. CARDIOVASCULAR: Moderate cardiomegaly OSSEOUS STRUCTURES: No significant abnormalities. VISUALIZED UPPER ABDOMEN: Normal. OTHER FINDINGS: None. IMPRESSION: Moderate cardiomegaly. Decreased vascular congestion
[2016-07-17] MEDS ORDERED: cefTRIAXone 1 gm 1 GM/100 ML BAG IVPB SCH (10:00)
[2016-07-17] MEDS ORDERED: MethylPREDNISolone 40 mg Vial IVP SCH (10:00)
--- NOTE | 2016-07-17 11:22 | CON ---
DATE: 07/17/2016 SERVICE: Cardiology. CONSULTING PHYSICIAN: Dr. Brianna Sandra. REASON FOR CONSULTATION: Cardiac evaluation, history of coronary artery disease, history of atrial f ibrillation, chronic aortic stenosis, 1-vessel RCA disease, admitted with altered mental status. BRIEF CLINICAL HISTORY: This is a 71-year-old morbidly obese female, very noncompliant to the medica tion as well as active tobacco abuse, history of COPD, morbid obesity, diabetes, hypertension, hyperl ipidemia, chronic atrial fibrillation, failed DARIUS cardioversion in the past, history of 1-vessel RCA disease, moderate aortic stenosis, came to the Emergency Room at [facility] because of altered mental st atus, brought by the family. The patient was watching TV the whole day as per daughter and smoking a nd later on, became very weak, lethargic, brought here with acute exacerbation of COPD as well. Kimo es any chest pain. Now, patient is much awake and alert in ICU 128, bed 4. Denies any chest pain, s hortness of breath, any palpitation. PAST MEDICAL HISTORY: Significant for morbid obesity, congestive heart failure, aortic stenosis, lamin betes, hypertension, hyperlipidemia, chronic atrial fibrillation, status post failed DARIUS cardioversio n, 1-vessel RCA, totally occluded RCA, very well collateralized from LAD, cardiac catheterization 2-1 /2 years ago, chronic atrial fibrillation, hypertension, hyperlipidemia, pulmonary hypertension, hist ory of GI bleed on Coumadin. Previous cardiac workup as follows: History of cardiac catheterization 2-1/2 years ago, 1-vessel cor onary artery disease, RCA which is the very well collateralized from LAD, RCA has a total CODING TEAM LEAD. Most recently, patient's transesophageal echo was done to rule out endocarditis dated 04/07/2016 that showe d ejection fraction 65%, atrial fibrillation, trace aortic regurgitation, moderate valvular aortic st enosis, valve area 1 cm2 by planimetry and continuity equation. Peak gradient across the aortic valv e was 21 mmHg. Mitral regurgitation was moderate to severe, mild tricuspid regurgitation, moderate p laque in descending aorta. Velocity in left atrial appendage was 0.4 meter per second. No vegetatio n noted, dated 03/28/2016. SOCIAL HISTORY: Active tobacco abuse. Denies any history of alcohol abuse. ALLERGIES: No known drug allergy. CURRENT MEDICATIONS: The patient is taking oxycodone, hydralazine, warfarin, losartan, Spiriva, pota ssium chloride, nadolol, Cozaar, isosorbide nitrate, glyburide, Amaryl, Lasix in the morning 40 and 2 0 at night, aspirin, and albuterol inhaler. REVIEW OF SYSTEMS: As per HPI. PHYSICAL EXAMINATION: VITAL SIGNS: Temperature afebrile, heart rate 68, blood pressure 122/55. HEENT: PERRLA. Extraocular muscles intact. NECK: Supple. No carotid bruits. No thyromegaly. CHEST: Clear to auscultation. HEART: S1, S2 regular. ABDOMEN: Soft. EXTREMITIES: Clubbing and cyanosis negative. LABORATORY DATA: Blood workup as follows: WBC 7.1, hemoglobin 7.8, hematocrit 25.7, platelet count 214. Chemistry shows sodium 140, potassium 4.2, chloride 111, carbon dioxide 28, anion gap of 15, BU N 52, creatinine 1.3. Troponin, 0.07 and 0.07. INR 4.89. IMPRESSION: The patient has supratherapeutic INR, anemia, history of gastrointestinal bleed in the p ast, history of 1-vessel coronary artery disease, right coronary artery, very well collateralized fro m left anterior descending, preserved left ventricular function. Recent echo shows ejection fraction 65%, moderate to severe mitral regurgitation, mild tricuspid regurgitation, moderate aortic stenosis , valve area of 1.0 cm2 planimetry and continuity equation consistent with moderate aortic stenosis, chronic atrial fibrillation, failed transesophageal echocardiogram/cardioversion in the ____, history of chronic obstructive pulmonary disease, history of removal of the Port-A-Cath, history of sepsis. No evidence of endocarditis in March by transesophageal echocardiogram . RECOMMENDATION: Avoid narcotic analgesics. Monitor H and H. history of GI bleed, hold Coumadin for now until the patient gets therapeutic INR. Stool guaiac. Overall, the patient's condition is criti rosalino. Prognosis overall prison is guarded because the patient is very noncompliant. We will follow with you. No further cardiac workup is planned at this time. Thank you, Dr. Kirby, for providing the opportunity in taking care of the patient. We will follow with you. Brianna Sandra MD cc: [id number] TT: 07/17/2016 11:21:34 Confirmation # [id number] Dictation # [id number]
[2016-07-17] MEDS: Cefepime 1gm in NS 100ml 1 GM/100 ML BAG IVPB SCH (11:25)
[2016-07-17] MEDS: Potassium Chloride 10 mEq ER Tab PO SCH (11:29)
[2016-07-17] MEDS: Vancomycin 1gm in NS 250ml 1 GM/250 ML BAG IVPB SCH (11:40)
[2016-07-17 12:59] LABS: ARTERIAL BLOOD GAS HCO3 27.8 mmol/L (21-28); ARTERIAL BLOOD GAS O2 CAPACITY 10.3 mL/dl (16-24); ARTERIAL BLOOD GAS O2 CONTENT 10.1 ML/dl (15-23); ARTERIAL BLOOD GAS PH 7.32 (7.35-7.45); ARTERIAL BLOOD HGB O2 SAT 95.2 % (95.0-98.0); CARBOXYHEMOGLOBIN 2.3 % (0.5-1.5); HHB 1.9 % (0-5); METHEMOGLOBIN 0.6 % (0.0-3.0)
--- NOTE | 2016-07-17 13:52 | CP.CCUPN ---
<Heaven Smith - Last Filed: 07/17/16 16:00> CCU Subjective - Physician Review Events Since Last Encounter (Free Text): 07/17/16 13:50 Mentation improves. Switch to 4L NC from bipap. 07/17/16 15:34 No acute complaint. CCU Objective - Vital Signs / Intake & Output Vital Signs (Last 4 hours): Vital Signs Pulse BP 07/17/16 11:31 67 135/100 H 07/17/16 11:26 150/100 H Intake and Output (Last 8hrs): Intake & Output 07/16/16 07/17/16 07/17/16 22:59 06:59 14:59 Intake Total 400 Output Total 775 1375 Balance -775 -975 Weight 236 lb 242 lb 12.8 oz Intake: IV 400 Right Anterior Chest Wall 400 Output: Urine 575 1375 Urethral (Rosas) 1200 Stool 200 Other: Voiding Method Indwelling Catheter Indwelling Catheter - Physical Exam Head: Positive for: Atraumatic, Normocephalic Pupils: Positive for: PERRL Extroacular Muscles: Positive for: EOMI Conjunctiva: Positive for: Normal Mouth: Positive for: Moist Mucous Membranes Neck: Positive for: Normal Range of Motion Respiratory/Chest: Positive for: Good Air Exchange, Rales, Rhonchi (mainly on the right), Other (Healing wound over chest wall from previous port. No signs of infection). Negative for: Respiratory Distress, Accessory Muscle Use Cardiovascular: Positive for: Regular Rate and Rhythm, Normal S1, S2. Negative for: Murmurs Abdomen: Positive for: Normal Bowel Sounds. Negative for: Tenderness, Distention, Peritoneal Signs Back: Positive for: Normal Inspection Upper Extremity: Positive for: Normal Inspection. Negative for: Cyanosis, Edema Lower Extremity: Positive for: Edema (2+ bilateral pitting edema) Neurological: Positive for: GCS=15, CN II-XII Intact, Other (No focal deficits) Skin: Positive for: Warm, Dry, Normal Color. Negative for: Rashes Psychiatric: Positive for: Normal Concentration - Medications Active Medications: Active Medications Generic Name Dose Route Start Last Admin Trade Name Freq PRN Reason Stop Dose Admin Acetaminophen 650 mg 07/16/16 19:15 Tylenol 325mg Tab PO Q6H PRN Fever >100.4 F Albuterol/Ipratropium 3 ml 07/16/16 19:15 Duoneb 3 Mg/0.5 Mg (3 Ml) Ud IH Q2H PRN Shortness of Breath Albuterol/Ipratropium 3 ml 07/16/16 21:15 07/17/16 13:33 Duoneb 3 Mg/0.5 Mg (3 Ml) Ud IH 3 ml Q6H WAYNE Administration Aspirin 81 mg 07/17/16 10:00 07/17/16 11:34 Ecotrin PO 81 mg DAILY WAYNE Administration Furosemide 40 mg 07/17/16 10:00 07/17/16 11:26 Lasix IVP 40 mg DAILY WAYNE Administration Glimepiride 4 mg 07/16/16 19:15 07/16/16 21:00 Amaryl PO Not Given BID WAYNE Hydralazine HCl 50 mg 07/16/16 19:15 07/17/16 11:31 Apresoline PO 50 mg BID WAYNE Administration Vancomycin HCl 1 gm in 250 mls @ 167 mls/hr 07/17/16 10:00 07/17/16 11:40 Vancomycin 1gm IVPB 167 mls/hr DAILY WAYNE Administration Protocol Cefepime HCl 1 gm in 100 mls @ 100 mls/hr 07/17/16 10:00 07/17/16 11:25 Maxipime 1gm IVPB 100 mls/hr Q24H WAYNE Administration Protocol Insulin Human Lispro 0 units 07/16/16 22:00 07/17/16 08:46 Humalog High SC 4 units ACHS WAYNE Administration Protocol Isosorbide Mononitrate 60 mg 07/17/16 10:00 07/17/16 11:35 Imdur PO 60 mg DAILY WAYNE Administration Methylprednisolone 40 mg 07/17/16 10:00 07/17/16 11:35 Solu-Medrol IVP 40 mg BID WAYNE Administration Nadolol 10 mg 07/16/16 19:15 07/17/16 11:31 Corgard PO 10 mg BID WAYNE Administration Nicotine 1 patch 07/17/16 10:00 07/17/16 11:20 Nicoderm Cq TD 1 patch DAILY WAYNE Administration Pantoprazole Sodium 40 mg 07/17/16 07:30 07/17/16 08:48 Protonix Ec Tab PO 40 mg ACB WAYNE Administration Potassium Chloride 10 meq 07/17/16 10:00 07/17/16 11:29 Klor-Con 10 PO 10 meq DAILY WAYNE Administration Sitagliptin Phosphate 50 mg 07/17/16 10:00 Januvia PO DAILY WAYNE Valsartan 320 mg 07/17/16 10:00 07/17/16 11:34 Diovan PO 320 mg DAILY WAYNE Administration - Patient Studies Lab Studies: Lab Studies 07/17/16 07/17/16 07/17/16 Range/Units 12:00 09:56 03:05 WBC (4.5-11.0) 10^3/ul RBC (3.5-6.1) 10^6/uL Hgb (12.0-16.0) gm/dL Hct (36.0-48.0) % MCV (80.0-105.0) fL MCH (25.0-35.0) pg MCHC (31.0-37.0) g/dl RDW (11.5-14.5) % Plt Count (120.0-450.0) 10^3/uL MPV (7.0-11.0) fl Gran % (50.0-68.0) % Lymph % (Auto) (22.0-35.0) % Antelope % (Auto) (1.0-6.0) % Eos % (Auto) (1.5-5.0) % Baso % (Auto) (0.0-3.0) % Gran # (1.4-6.5) Lymph # (1.2-3.4) Antelope # (0.1-0.6) Eos # (0.0-0.7) Baso # (0.0-2.0) K/mm3 PT 52.8 H* (9.9-11.8) Seconds INR 4.89 H* (0.93-1.08) APTT 46.8 H (23.7-30.8) Seconds pCO2 54 H 60 H (35-45) mm/Hg pO2 99.0 124.0 H (80-100) mm/Hg HCO3 27.8 29.5 H (21-28) mmol/L ABG pH 7.32 L 7.30 L (7.35-7.45) ABG Total CO2 29.5 H 31.3 H (22-28) mmol.L ABG O2 Saturation 98.0 98.8 H (95-98) % ABG O2 Content 10.1 L 10.3 L (15-23) ML/dl ABG Base Excess 1.4 2.6 (-2.0-3.0) mmol/L ABG Hemoglobin 7.4 L 7.4 L (11.7-17.4) g/dL ABG Carboxyhemoglobin 2.3 H 2.3 H (0.5-1.5) % POC ABG HHb (Measured) 1.9 1.2 (0-5) % ABG Methemoglobin 0.6 0.0 (0.0-3.0) % ABG O2 Capacity 10.3 L 10.4 L (16-24) mL/dl Hgb O2 Saturation 95.2 96.5 (95.0-98.0) % FiO2 32.0 35.0 % Sodium (132-148) mmol/L Potassium (3.6-5.0) mmol/L Chloride (98-107) mmol/L Carbon Dioxide (21-33) mmol/L Anion Gap (10-20) BUN (7-21) mg/dL Creatinine (0.5-1.4) mg/dL Est GFR ( Amer) Est GFR (Non-Af Amer) POC Glucose (mg/dL) (65-110) mg/dL Random Glucose (70-110) mg/dL Calcium (8.4-10.5) mg/dL Phosphorus (2.5-4.5) mg/dL Magnesium (1.7-2.2) mg/dL Total Bilirubin (0.2-1.3) mg/dL AST (15-39) U/L ALT (7-56) U/L Alkaline Phosphatase (38-133) U/L Lactate Dehydrogenase (333-699) U/L Total Creatine Kinase (35-230) U/L Troponin I ng/mL Total Protein (5.8-8.3) g/dL Albumin (3.0-4.8) g/dL Globulin gm/dL Albumin/Globulin Ratio (1.1-1.8) Urine Osmolality (50-645) mosm/kg Ur Random Creatinine mg/dL Urine Opiates Screen (NEGATIVE) Urine Methadone Screen (NEGATIVE) Ur Barbiturates Screen (NEGATIVE) Ur Phencyclidine Scrn (NEGATIVE) Ur Amphetamines Screen (NEGATIVE) U Benzodiazepines Scrn (NEGATIVE) U Oth Cocaine Metabols (NEGATIVE) U Cannabinoids Screen (NEGATIVE) 07/17/16 07/17/16 07/17/16 Range/Units 03:05 03:05 01:48 WBC 7.1 (4.5-11.0) 10^3/ul RBC 2.80 L (3.5-6.1) 10^6/uL Hgb 7.8 L (12.0-16.0) gm/dL Hct 25.7 L (36.0-48.0) % MCV 91.8 (80.0-105.0) fL MCH 27.9 (25.0-35.0) pg MCHC 30.4 L (31.0-37.0) g/dl RDW 20.4 H (11.5-14.5) % Plt Count 214 (120.0-450.0) 10^3/uL MPV 10.0 (7.0-11.0) fl Gran % 88.6 H (50.0-68.0) % Lymph % (Auto) 9.9 L (22.0-35.0) % Antelope % (Auto) 1.3 (1.0-6.0) % Eos % (Auto) 0.1 L (1.5-5.0) % Baso % (Auto) 0.1 (0.0-3.0) % Gran # 6.29 (1.4-6.5) Lymph # 0.7 L (1.2-3.4) Antelope # 0.1 (0.1-0.6) Eos # 0.0 (0.0-0.7) Baso # 0.01 (0.0-2.0) K/mm3 PT (9.9-11.8) Seconds INR (0.93-1.08) APTT (23.7-30.8) Seconds pCO2 (35-45) mm/Hg pO2 (80-100) mm/Hg HCO3 (21-28) mmol/L ABG pH (7.35-7.45) ABG Total CO2 (22-28) mmol.L ABG O2 Saturation (95-98) % ABG O2 Content (15-23) ML/dl ABG Base Excess (-2.0-3.0) mmol/L ABG Hemoglobin (11.7-17.4) g/dL ABG Carboxyhemoglobin (0.5-1.5) % POC ABG HHb (Measured) (0-5) % ABG Methemoglobin (0.0-3.0) % ABG O2 Capacity (16-24) mL/dl Hgb O2 Saturation (95.0-98.0) % FiO2 % Sodium 140 (132-148) mmol/L Potassium 4.2 (3.6-5.0) mmol/L Chloride 101 (98-107) mmol/L Carbon Dioxide 28 (21-33) mmol/L Anion Gap 15 (10-20) BUN 52 H (7-21) mg/dL Creatinine 1.3 (0.5-1.4) mg/dL Est GFR ( Amer) 49 Est GFR (Non-Af Amer) 41 POC Glucose (mg/dL) 272 H (65-110) mg/dL Random Glucose 240 H (70-110) mg/dL Calcium 8.7 (8.4-10.5) mg/dL Phosphorus 4.7 H (2.5-4.5) mg/dL Magnesium 2.1 (1.7-2.2) mg/dL Total Bilirubin 0.5 (0.2-1.3) mg/dL AST 21 (15-39) U/L ALT 32 (7-56) U/L Alkaline Phosphatase 81 (38-133) U/L Lactate Dehydrogenase 432 (333-699) U/L Total Creatine Kinase 39 (35-230) U/L Troponin I 0.07 D ng/mL Total Protein 6.8 (5.8-8.3) g/dL Albumin 3.7 (3.0-4.8) g/dL Globulin 3.1 gm/dL Albumin/Globulin Ratio 1.2 (1.1-1.8) Urine Osmolality (50-645) mosm/kg Ur Random Creatinine mg/dL Urine Opiates Screen (NEGATIVE) Urine Methadone Screen (NEGATIVE) Ur Barbiturates Screen (NEGATIVE) Ur Phencyclidine Scrn (NEGATIVE) Ur Amphetamines Screen (NEGATIVE) U Benzodiazepines Scrn (NEGATIVE) U Oth Cocaine Metabols (NEGATIVE) U Cannabinoids Screen (NEGATIVE) 07/16/16 07/16/16 07/16/16 Range/Units 19:50 18:49 18:49 WBC (4.5-11.0) 10^3/ul RBC (3.5-6.1) 10^6/uL Hgb (12.0-16.0) gm/dL Hct (36.0-48.0) % MCV (80.0-105.0) fL MCH (25.0-35.0) pg MCHC (31.0-37.0) g/dl RDW (11.5-14.5) % Plt Count (120.0-450.0) 10^3/uL MPV (7.0-11.0) fl Gran % (50.0-68.0) % Lymph % (Auto) (22.0-35.0) % Antelope % (Auto) (1.0-6.0) % Eos % (Auto) (1.5-5.0) % Baso % (Auto) (0.0-3.0) % Gran # (1.4-6.5) Lymph # (1.2-3.4) Antelope # (0.1-0.6) Eos # (0.0-0.7) Baso # (0.0-2.0) K/mm3 PT (9.9-11.8) Seconds INR (0.93-1.08) APTT (23.7-30.8) Seconds pCO2 55 H (35-45) mm/Hg pO2 110.0 H (80-100) mm/Hg HCO3 24.7 (21-28) mmol/L ABG pH 7.26 L (7.35-7.45) ABG Total CO2 26.4 (22-28) mmol.L ABG O2 Saturation 98.4 H (95-98) % ABG O2 Content 9.4 L (15-23) ML/dl ABG Base Excess -2.3 L (-2.0-3.0) mmol/L ABG Hemoglobin 6.9 L (11.7-17.4) g/dL ABG Carboxyhemoglobin 3.6 H (0.5-1.5) % POC ABG HHb (Measured) 1.5 (0-5) % ABG Methemoglobin 0.4 (0.0-3.0) % ABG O2 Capacity 9.6 L (16-24) mL/dl Hgb O2 Saturation 94.5 L (95.0-98.0) % FiO2 35.0 % Sodium (132-148) mmol/L Potassium (3.6-5.0) mmol/L Chloride (98-107) mmol/L Carbon Dioxide (21-33) mmol/L Anion Gap (10-20) BUN (7-21) mg/dL Creatinine (0.5-1.4) mg/dL Est GFR ( Amer) Est GFR (Non-Af Amer) POC Glucose (mg/dL) (65-110) mg/dL Random Glucose (70-110) mg/dL Calcium (8.4-10.5) mg/dL Phosphorus (2.5-4.5) mg/dL Magnesium (1.7-2.2) mg/dL Total Bilirubin (0.2-1.3) mg/dL AST (15-39) U/L ALT (7-56) U/L Alkaline Phosphatase (38-133) U/L Lactate Dehydrogenase 444 (333-699) U/L Total Creatine Kinase 44 (35-230) U/L Troponin I 0.09 ng/mL Total Protein (5.8-8.3) g/dL Albumin (3.0-4.8) g/dL Globulin gm/dL Albumin/Globulin Ratio (1.1-1.8) Urine Osmolality 424 (50-645) mosm/kg Ur Random Creatinine 66 mg/dL Urine Opiates Screen Negative (NEGATIVE) Urine Methadone Screen Negative (NEGATIVE) Ur Barbiturates Screen Negative (NEGATIVE) Ur Phencyclidine Scrn Negative (NEGATIVE) Ur Amphetamines Screen Negative (NEGATIVE) U Benzodiazepines Scrn Negative (NEGATIVE) U Oth Cocaine Metabols Negative (NEGATIVE) U Cannabinoids Screen Negative (NEGATIVE) Laboratory Results - last 24 hr 07/16/16 07/16/16 07/16/16 18:49 18:49 19:50 WBC RBC Hgb Hct MCV MCH MCHC RDW Plt Count MPV Gran % Lymph % (Auto) Antelope % (Auto) Eos % (Auto) Baso % (Auto) Gran # Lymph # Antelope # Eos # Baso # PT INR APTT pCO2 55 H pO2 110.0 H HCO3 24.7 ABG pH 7.26 L ABG Total CO2 26.4 ABG O2 Saturation 98.4 H ABG O2 Content 9.4 L ABG Base Excess -2.3 L ABG Hemoglobin 6.9 L ABG Carboxyhemoglobin 3.6 H POC ABG HHb (Measured) 1.5 ABG Methemoglobin 0.4 ABG O2 Capacity 9.6 L Hgb O2 Saturation 94.5 L FiO2 35.0 Sodium Potassium Chloride Carbon Dioxide Anion Gap BUN Creatinine Est GFR ( Amer) Est GFR (Non-Af Amer) POC Glucose (mg/dL) Random Glucose Calcium Phosphorus Magnesium Total Bilirubin AST ALT Alkaline Phosphatase Lactate Dehydrogenase 444 Total Creatine Kinase 44 Troponin I 0.09 Total Protein Albumin Globulin Albumin/Globulin Ratio Urine Osmolality 424 Ur Random Creatinine 66 Urine Opiates Screen Negative Urine Methadone Screen Negative Ur Barbiturates Screen Negative Ur Phencyclidine Scrn Negative Ur Amphetamines Screen Negative U Benzodiazepines Scrn Negative U Oth Cocaine Metabols Negative U Cannabinoids Screen Negative 07/17/16 07/17/16 07/17/16 01:48 03:05 03:05 WBC 7.1 RBC 2.80 L Hgb 7.8 L Hct 25.7 L MCV 91.8 MCH 27.9 MCHC 30.4 L RDW 20.4 H Plt Count 214 MPV 10.0 Gran % 88.6 H Lymph % (Auto) 9.9 L Antelope % (Auto) 1.3 Eos % (Auto) 0.1 L Baso % (Auto) 0.1 Gran # 6.29 Lymph # 0.7 L Antelope # 0.1 Eos # 0.0 Baso # 0.01 PT INR APTT pCO2 pO2 HCO3 ABG pH ABG Total CO2 ABG O2 Saturation ABG O2 Content ABG Base Excess ABG Hemoglobin ABG Carboxyhemoglobin POC ABG HHb (Measured) ABG Methemoglobin ABG O2 Capacity Hgb O2 Saturation FiO2 Sodium 140 Potassium 4.2 Chloride 101 Carbon Dioxide 28 Anion Gap 15 BUN 52 H Creatinine 1.3 Est GFR ( Amer) 49 Est GFR (Non-Af Amer) 41 POC Glucose (mg/dL) 272 H Random Glucose 240 H Calcium 8.7 Phosphorus 4.7 H Magnesium 2.1 Total Bilirubin 0.5 AST 21 ALT 32 Alkaline Phosphatase 81 Lactate Dehydrogenase 432 Total Creatine Kinase 39 Troponin I 0.07 D Total Protein 6.8 Albumin 3.7 Globulin 3.1 Albumin/Globulin Ratio 1.2 Urine Osmolality Ur Random Creatinine Urine Opiates Screen Urine Methadone Screen Ur Barbiturates Screen Ur Phencyclidine Scrn Ur Amphetamines Screen U Benzodiazepines Scrn U Oth Cocaine Metabols U Cannabinoids Screen 07/17/16 07/17/16 07/17/16 03:05 09:56 12:00 WBC RBC Hgb Hct MCV MCH MCHC RDW Plt Count MPV Gran % Lymph % (Auto) Antelope % (Auto) Eos % (Auto) Baso % (Auto) Gran # Lymph # Antelope # Eos # Baso # PT 52.8 H* INR 4.89 H* APTT 46.8 H pCO2 60 H 54 H pO2 124.0 H 99.0 HCO3 29.5 H 27.8 ABG pH 7.30 L 7.32 L ABG Total CO2 31.3 H 29.5 H ABG O2 Saturation 98.8 H 98.0 ABG O2 Content 10.3 L 10.1 L ABG Base Excess 2.6 1.4 ABG Hemoglobin 7.4 L 7.4 L ABG Carboxyhemoglobin 2.3 H 2.3 H POC ABG HHb (Measured) 1.2 1.9 ABG Methemoglobin 0.0 0.6 ABG O2 Capacity 10.4 L 10.3 L Hgb O2 Saturation 96.5 95.2 FiO2 35.0 32.0 Sodium Potassium Chloride Carbon Dioxide Anion Gap BUN Creatinine Est GFR ( Amer) Est GFR (Non-Af Amer) POC Glucose (mg/dL) Random Glucose Calcium Phosphorus Magnesium Total Bilirubin AST ALT Alkaline Phosphatase Lactate Dehydrogenase Total Creatine Kinase Troponin I Total Protein Albumin Globulin Albumin/Globulin Ratio Urine Osmolality Ur Random Creatinine Urine Opiates Screen Urine Methadone Screen Ur Barbiturates Screen Ur Phencyclidine Scrn Ur Amphetamines Screen U Benzodiazepines Scrn U Oth Cocaine Metabols U Cannabinoids Screen EKG/Cardiology Studies: Cardiology / EKG Studies 07/17/16 07:14 EKG [ELECTROCARDIOGRAM] Urgent Comment: Reason For Exam: follow up Fingerstick Blood Sugar Results: 240 Critical Care Progress Note - Nutrition Nutrition: Nutrition Category Date Time Status Heart Healthy Diet [DIET] Diets 07/17/16 Lunch Ordered Assessment/Plan - Assessment and Plan (Free Text) Plan: 71 F [place] PMHx of non-compliant, morbid-obese, diabetes, HTN, HLD, [id number] , A-fib on coumadin, COPD, pulm HTN, R heart failure, chronic anemia Hx GI bleed , was admitted for AMS. After pt smoked a cigarrette, she was found to difficulty arouse, SOB, difficulty speaking in full sentences. She was on Bipap. Pt has respiratory acidosis, likely from COPD exacerbation and CO2 narcosis Neuro - improves mentation, back to baseline - nicoderm PRN - Avoid narcotics Card - Hold comadin for supratherapeutic INR - asa, laxis 40 iv daily, hydralazine 50 PO BID, isosorbide 60 PO daily, Valsartan 320 daily Pulm - CO2 narcosis - On 4L NC. 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 - Monitor POx when eating, should be off Bipap mask during eating - BUN is high at 50s; stool guaiac ordered; consider GI consult for EGD/ Colonoscopy. - Hold amaryl, hold januvia Endo - ISSS Heme - Hb 7.9, no sign of bleedind; stool guaiac ordered - On coumadin; INR supratherapeutic - will receive 1u pRBC per primary team ID - Urine - GNR - Pending sputum, blood culture - Zithromax and rocephin in ED - Cefepime, vanco daily - Pt was hospitalized 2 weeks ago, at risk for hospital infection Prophylaxis - SCD - protonix CONSULT - Dr. Sandra S/R/D/w Dr. Yaa Gaitan - Date & Time Date: 07/17/16 Time: 13:52 <Kandy MERLOS,Braden Raymond - Last Filed: 07/17/16 17:03> CCU Objective - Vital Signs / Intake & Output Vital Signs (Last 4 hours): Vital Signs Temp Pulse Resp BP 07/17/16 16:41 98.3 F 68 18 106/53 L Intake and Output (Last 8hrs): Intake & Output 07/17/16 07/17/16 07/17/16 06:59 14:59 22:59 Intake Total 400 0 Output Total 1375 Balance -975 0 Weight 242 lb 12.8 oz Intake: IV 400 Right Anterior Chest Wall 400 Blood Product 0 Red Blood Cells Cpd As1 0 Lr Unit [id number] Output: Urine 1375 Urethral (Rosas) 1200 Other: Voiding Method Indwelling Catheter - Medications Active Medications: Active Medications Generic Name Dose Route Start Last Admin Trade Name Freq PRN Reason Stop Dose Admin Acetaminophen 650 mg 07/16/16 19:15 Tylenol 325mg Tab PO Q6H PRN Fever >100.4 F Albuterol/Ipratropium 3 ml 07/16/16 19:15 Duoneb 3 Mg/0.5 Mg (3 Ml) Ud IH Q2H PRN Shortness of Breath Albuterol/Ipratropium 3 ml 07/16/16 21:15 07/17/16 13:33 Duoneb 3 Mg/0.5 Mg (3 Ml) Ud IH 3 ml Q6H WAYNE Administration Aspirin 81 mg 07/17/16 10:00 07/17/16 11:34 Ecotrin PO 81 mg DAILY WAYNE Administration Furosemide 40 mg 07/17/16 10:00 07/17/16 11:26 Lasix IVP 40 mg DAILY WAYNE Administration Glimepiride 4 mg 07/16/16 19:15 07/16/16 21:00 Amaryl PO Not Given BID WAYNE Hydralazine HCl 50 mg 07/16/16 19:15 07/17/16 11:31 Apresoline PO 50 mg BID WAYNE Administration Vancomycin HCl 1 gm in 250 mls @ 167 mls/hr 07/17/16 10:00 07/17/16 11:40 Vancomycin 1gm IVPB 167 mls/hr DAILY WAYNE Administration Protocol Cefepime HCl 1 gm in 100 mls @ 100 mls/hr 07/17/16 10:00 07/17/16 11:25 Maxipime 1gm IVPB 100 mls/hr Q24H WAYNE Administration Protocol Insulin Human Lispro 0 units 07/16/16 22:00 07/17/16 13:15 Humalog High SC 4 units ACHS WAYNE Administration Protocol Isosorbide Mononitrate 60 mg 07/17/16 10:00 07/17/16 11:35 Imdur PO 60 mg DAILY WAYNE Administration Methylprednisolone 40 mg 07/17/16 10:00 07/17/16 11:35 Solu-Medrol IVP 40 mg BID WAYNE Administration Nadolol 10 mg 07/16/16 19:15 07/17/16 11:31 Corgard PO 10 mg BID WAYNE Administration Nicotine 1 patch 07/17/16 10:00 07/17/16 11:20 Nicoderm Cq TD 1 patch DAILY WAYNE Administration Pantoprazole Sodium 40 mg 07/17/16 07:30 07/17/16 08:48 Protonix Ec Tab PO 40 mg ACB WAYNE Administration Potassium Chloride 10 meq 07/17/16 10:00 07/17/16 11:29 Klor-Con 10 PO 10 meq DAILY WAYNE Administration Sitagliptin Phosphate 50 mg 07/17/16 10:00 Januvia PO DAILY WAYNE Valsartan 320 mg 07/17/16 10:00 07/17/16 11:34 Diovan PO 320 mg DAILY WAYNE Administration - Patient Studies Lab Studies: Lab Studies 07/17/16 07/17/16 07/17/16 Range/Units 12:00 09:56 03:05 WBC (4.5-11.0) 10^3/ul RBC (3.5-6.1) 10^6/uL Hgb (12.0-16.0) gm/dL Hct (36.0-48.0) % MCV (80.0-105.0) fL MCH (25.0-35.0) pg MCHC (31.0-37.0) g/dl RDW (11.5-14.5) % Plt Count (120.0-450.0) 10^3/uL MPV (7.0-11.0) fl Gran % (50.0-68.0) % Lymph % (Auto) (22.0-35.0) % Antelope % (Auto) (1.0-6.0) % Eos % (Auto) (1.5-5.0) % Baso % (Auto) (0.0-3.0) % Gran # (1.4-6.5) Lymph # (1.2-3.4) Antelope # (0.1-0.6) Eos # (0.0-0.7) Baso # (0.0-2.0) K/mm3 PT 52.8 H* (9.9-11.8) Seconds INR 4.89 H* (0.93-1.08) APTT 46.8 H (23.7-30.8) Seconds pCO2 54 H 60 H (35-45) mm/Hg pO2 99.0 124.0 H (80-100) mm/Hg HCO3 27.8 29.5 H (21-28) mmol/L ABG pH 7.32 L 7.30 L (7.35-7.45) ABG Total CO2 29.5 H 31.3 H (22-28) mmol.L ABG O2 Saturation 98.0 98.8 H (95-98) % ABG O2 Content 10.1 L 10.3 L (15-23) ML/dl ABG Base Excess 1.4 2.6 (-2.0-3.0) mmol/L ABG Hemoglobin 7.4 L 7.4 L (11.7-17.4) g/dL ABG Carboxyhemoglobin 2.3 H 2.3 H (0.5-1.5) % POC ABG HHb (Measured) 1.9 1.2 (0-5) % ABG Methemoglobin 0.6 0.0 (0.0-3.0) % ABG O2 Capacity 10.3 L 10.4 L (16-24) mL/dl Hgb O2 Saturation 95.2 96.5 (95.0-98.0) % FiO2 32.0 35.0 % Sodium (132-148) mmol/L Potassium (3.6-5.0) mmol/L Chloride (98-107) mmol/L Carbon Dioxide (21-33) mmol/L Anion Gap (10-20) BUN (7-21) mg/dL Creatinine (0.5-1.4) mg/dL Est GFR ( Amer) Est GFR (Non-Af Amer) POC Glucose (mg/dL) (65-110) mg/dL Random Glucose (70-110) mg/dL Calcium (8.4-10.5) mg/dL Phosphorus (2.5-4.5) mg/dL Magnesium (1.7-2.2) mg/dL Total Bilirubin (0.2-1.3) mg/dL AST (15-39) U/L ALT (7-56) U/L Alkaline Phosphatase (38-133) U/L Lactate Dehydrogenase (333-699) U/L Total Creatine Kinase (35-230) U/L Troponin I ng/mL Total Protein (5.8-8.3) g/dL Albumin (3.0-4.8) g/dL Globulin gm/dL Albumin/Globulin Ratio (1.1-1.8) Urine Osmolality (50-645) mosm/kg Ur Random Creatinine mg/dL Urine Opiates Screen (NEGATIVE) Urine Methadone Screen (NEGATIVE) Ur Barbiturates Screen (NEGATIVE) Ur Phencyclidine Scrn (NEGATIVE) Ur Amphetamines Screen (NEGATIVE) U Benzodiazepines Scrn (NEGATIVE) U Oth Cocaine Metabols (NEGATIVE) U Cannabinoids Screen (NEGATIVE) 07/17/16 07/17/16 07/17/16 Range/Units 03:05 03:05 01:48 WBC 7.1 (4.5-11.0) 10^3/ul RBC 2.80 L (3.5-6.1) 10^6/uL Hgb 7.8 L (12.0-16.0) gm/dL Hct 25.7 L (36.0-48.0) % MCV 91.8 (80.0-105.0) fL MCH 27.9 (25.0-35.0) pg MCHC 30.4 L (31.0-37.0) g/dl RDW 20.4 H (11.5-14.5) % Plt Count 214 (120.0-450.0) 10^3/uL MPV 10.0 (7.0-11.0) fl Gran % 88.6 H (50.0-68.0) % Lymph % (Auto) 9.9 L (22.0-35.0) % Antelope % (Auto) 1.3 (1.0-6.0) % Eos % (Auto) 0.1 L (1.5-5.0) % Baso % (Auto) 0.1 (0.0-3.0) % Gran # 6.29 (1.4-6.5) Lymph # 0.7 L (1.2-3.4) Antelope # 0.1 (0.1-0.6) Eos # 0.0 (0.0-0.7) Baso # 0.01 (0.0-2.0) K/mm3 PT (9.9-11.8) Seconds INR (0.93-1.08) APTT (23.7-30.8) Seconds pCO2 (35-45) mm/Hg pO2 (80-100) mm/Hg HCO3 (21-28) mmol/L ABG pH (7.35-7.45) ABG Total CO2 (22-28) mmol.L ABG O2 Saturation (95-98) % ABG O2 Content (15-23) ML/dl ABG Base Excess (-2.0-3.0) mmol/L ABG Hemoglobin (11.7-17.4) g/dL ABG Carboxyhemoglobin (0.5-1.5) % POC ABG HHb (Measured) (0-5) % ABG Methemoglobin (0.0-3.0) % ABG O2 Capacity (16-24) mL/dl Hgb O2 Saturation (95.0-98.0) % FiO2 % Sodium 140 (132-148) mmol/L Potassium 4.2 (3.6-5.0) mmol/L Chloride 101 (98-107) mmol/L Carbon Dioxide 28 (21-33) mmol/L Anion Gap 15 (10-20) BUN 52 H (7-21) mg/dL Creatinine 1.3 (0.5-1.4) mg/dL Est GFR ( Amer) 49 Est GFR (Non-Af Amer) 41 POC Glucose (mg/dL) 272 H (65-110) mg/dL Random Glucose 240 H (70-110) mg/dL Calcium 8.7 (8.4-10.5) mg/dL Phosphorus 4.7 H (2.5-4.5) mg/dL Magnesium 2.1 (1.7-2.2) mg/dL Total Bilirubin 0.5 (0.2-1.3) mg/dL AST 21 (15-39) U/L ALT 32 (7-56) U/L Alkaline Phosphatase 81 (38-133) U/L Lactate Dehydrogenase 432 (333-699) U/L Total Creatine Kinase 39 (35-230) U/L Troponin I 0.07 D ng/mL Total Protein 6.8 (5.8-8.3) g/dL Albumin 3.7 (3.0-4.8) g/dL Globulin 3.1 gm/dL Albumin/Globulin Ratio 1.2 (1.1-1.8) Urine Osmolality (50-645) mosm/kg Ur Random Creatinine mg/dL Urine Opiates Screen (NEGATIVE) Urine Methadone Screen (NEGATIVE) Ur Barbiturates Screen (NEGATIVE) Ur Phencyclidine Scrn (NEGATIVE) Ur Amphetamines Screen (NEGATIVE) U Benzodiazepines Scrn (NEGATIVE) U Oth Cocaine Metabols (NEGATIVE) U Cannabinoids Screen (NEGATIVE) 07/16/16 07/16/16 07/16/16 Range/Units 19:50 18:49 18:49 WBC (4.5-11.0) 10^3/ul RBC (3.5-6.1) 10^6/uL Hgb (12.0-16.0) gm/dL Hct (36.0-48.0) % MCV (80.0-105.0) fL MCH (25.0-35.0) pg MCHC (31.0-37.0) g/dl RDW (11.5-14.5) % Plt Count (120.0-450.0) 10^3/uL MPV (7.0-11.0) fl Gran % (50.0-68.0) % Lymph % (Auto) (22.0-35.0) % Antelope % (Auto) (1.0-6.0) % Eos % (Auto) (1.5-5.0) % Baso % (Auto) (0.0-3.0) % Gran # (1.4-6.5) Lymph # (1.2-3.4) Antelope # (0.1-0.6) Eos # (0.0-0.7) Baso # (0.0-2.0) K/mm3 PT (9.9-11.8) Seconds INR (0.93-1.08) APTT (23.7-30.8) Seconds pCO2 55 H (35-45) mm/Hg pO2 110.0 H (80-100) mm/Hg HCO3 24.7 (21-28) mmol/L ABG pH 7.26 L (7.35-7.45) ABG Total CO2 26.4 (22-28) mmol.L ABG O2 Saturation 98.4 H (95-98) % ABG O2 Content 9.4 L (15-23) ML/dl ABG Base Excess -2.3 L (-2.0-3.0) mmol/L ABG Hemoglobin 6.9 L (11.7-17.4) g/dL ABG Carboxyhemoglobin 3.6 H (0.5-1.5) % POC ABG HHb (Measured) 1.5 (0-5) % ABG Methemoglobin 0.4 (0.0-3.0) % ABG O2 Capacity 9.6 L (16-24) mL/dl Hgb O2 Saturation 94.5 L (95.0-98.0) % FiO2 35.0 % Sodium (132-148) mmol/L Potassium (3.6-5.0) mmol/L Chloride (98-107) mmol/L Carbon Dioxide (21-33) mmol/L Anion Gap (10-20) BUN (7-21) mg/dL Creatinine (0.5-1.4) mg/dL Est GFR ( Amer) Est GFR (Non-Af Amer) POC Glucose (mg/dL) (65-110) mg/dL Random Glucose (70-110) mg/dL Calcium (8.4-10.5) mg/dL Phosphorus (2.5-4.5) mg/dL Magnesium (1.7-2.2) mg/dL Total Bilirubin (0.2-1.3) mg/dL AST (15-39) U/L ALT (7-56) U/L Alkaline Phosphatase (38-133) U/L Lactate Dehydrogenase 444 (333-699) U/L Total Creatine Kinase 44 (35-230) U/L Troponin I 0.09 ng/mL Total Protein (5.8-8.3) g/dL Albumin (3.0-4.8) g/dL Globulin gm/dL Albumin/Globulin Ratio (1.1-1.8) Urine Osmolality 424 (50-645) mosm/kg Ur Random Creatinine 66 mg/dL Urine Opiates Screen Negative (NEGATIVE) Urine Methadone Screen Negative (NEGATIVE) Ur Barbiturates Screen Negative (NEGATIVE) Ur Phencyclidine Scrn Negative (NEGATIVE) Ur Amphetamines Screen Negative (NEGATIVE) U Benzodiazepines Scrn Negative (NEGATIVE) U Oth Cocaine Metabols Negative (NEGATIVE) U Cannabinoids Screen Negative (NEGATIVE) Laboratory Results - last 24 hr 07/16/16 07/16/16 07/16/16 18:49 18:49 19:50 WBC RBC Hgb Hct MCV MCH MCHC RDW Plt Count MPV Gran % Lymph % (Auto) Antelope % (Auto) Eos % (Auto) Baso % (Auto) Gran # Lymph # Antelope # Eos # Baso # PT INR APTT pCO2 55 H pO2 110.0 H HCO3 24.7 ABG pH 7.26 L ABG Total CO2 26.4 ABG O2 Saturation 98.4 H ABG O2 Content 9.4 L ABG Base Excess -2.3 L ABG Hemoglobin 6.9 L ABG Carboxyhemoglobin 3.6 H POC ABG HHb (Measured) 1.5 ABG Methemoglobin 0.4 ABG O2 Capacity 9.6 L Hgb O2 Saturation 94.5 L FiO2 35.0 Sodium Potassium Chloride Carbon Dioxide Anion Gap BUN Creatinine Est GFR ( Amer) Est GFR (Non-Af Amer) POC Glucose (mg/dL) Random Glucose Calcium Phosphorus Magnesium Total Bilirubin AST ALT Alkaline Phosphatase Lactate Dehydrogenase 444 Total Creatine Kinase 44 Troponin I 0.09 Total Protein Albumin Globulin Albumin/Globulin Ratio Urine Osmolality 424 Ur Random Creatinine 66 Urine Opiates Screen Negative Urine Methadone Screen Negative Ur Barbiturates Screen Negative Ur Phencyclidine Scrn Negative Ur Amphetamines Screen Negative U Benzodiazepines Scrn Negative U Oth Cocaine Metabols Negative U Cannabinoids Screen Negative 07/17/16 07/17/16 07/17/16 01:48 03:05 03:05 WBC 7.1 RBC 2.80 L Hgb 7.8 L Hct 25.7 L MCV 91.8 MCH 27.9 MCHC 30.4 L RDW 20.4 H Plt Count 214 MPV 10.0 Gran % 88.6 H Lymph % (Auto) 9.9 L Antelope % (Auto) 1.3 Eos % (Auto) 0.1 L Baso % (Auto) 0.1 Gran # 6.29 Lymph # 0.7 L Antelope # 0.1 Eos # 0.0 Baso # 0.01 PT INR APTT pCO2 pO2 HCO3 ABG pH ABG Total CO2 ABG O2 Saturation ABG O2 Content ABG Base Excess ABG Hemoglobin ABG Carboxyhemoglobin POC ABG HHb (Measured) ABG Methemoglobin ABG O2 Capacity Hgb O2 Saturation FiO2 Sodium 140 Potassium 4.2 Chloride 101 Carbon Dioxide 28 Anion Gap 15 BUN 52 H Creatinine 1.3 Est GFR ( Amer) 49 Est GFR (Non-Af Amer) 41 POC Glucose (mg/dL) 272 H Random Glucose 240 H Calcium 8.7 Phosphorus 4.7 H Magnesium 2.1 Total Bilirubin 0.5 AST 21 ALT 32 Alkaline Phosphatase 81 Lactate Dehydrogenase 432 Total Creatine Kinase 39 Troponin I 0.07 D Total Protein 6.8 Albumin 3.7 Globulin 3.1 Albumin/Globulin Ratio 1.2 Urine Osmolality Ur Random Creatinine Urine Opiates Screen Urine Methadone Screen Ur Barbiturates Screen Ur Phencyclidine Scrn Ur Amphetamines Screen U Benzodiazepines Scrn U Oth Cocaine Metabols U Cannabinoids Screen 07/17/16 07/17/16 07/17/16 03:05 09:56 12:00 WBC RBC Hgb Hct MCV MCH MCHC RDW Plt Count MPV Gran % Lymph % (Auto) Antelope % (Auto) Eos % (Auto) Baso % (Auto) Gran # Lymph # Antelope # Eos # Baso # PT 52.8 H* INR 4.89 H* APTT 46.8 H pCO2 60 H 54 H pO2 124.0 H 99.0 HCO3 29.5 H 27.8 ABG pH 7.30 L 7.32 L ABG Total CO2 31.3 H 29.5 H ABG O2 Saturation 98.8 H 98.0 ABG O2 Content 10.3 L 10.1 L ABG Base Excess 2.6 1.4 ABG Hemoglobin 7.4 L 7.4 L ABG Carboxyhemoglobin 2.3 H 2.3 H POC ABG HHb (Measured) 1.2 1.9 ABG Methemoglobin 0.0 0.6 ABG O2 Capacity 10.4 L 10.3 L Hgb O2 Saturation 96.5 95.2 FiO2 35.0 32.0 Sodium Potassium Chloride Carbon Dioxide Anion Gap BUN Creatinine Est GFR ( Amer) Est GFR (Non-Af Amer) POC Glucose (mg/dL) Random Glucose Calcium Phosphorus Magnesium Total Bilirubin AST ALT Alkaline Phosphatase Lactate Dehydrogenase Total Creatine Kinase Troponin I Total Protein Albumin Globulin Albumin/Globulin Ratio Urine Osmolality Ur Random Creatinine Urine Opiates Screen Urine Methadone Screen Ur Barbiturates Screen Ur Phencyclidine Scrn Ur Amphetamines Screen U Benzodiazepines Scrn U Oth Cocaine Metabols U Cannabinoids Screen EKG/Cardiology Studies: Cardiology / EKG Studies 07/17/16 07:14 EKG [ELECTROCARDIOGRAM] Urgent Comment: Reason For Exam: follow up Critical Care Progress Note - Nutrition Nutrition: Nutrition Category Date Time Status Heart Healthy Diet [DIET] Diets 07/17/16 Lunch Ordered Attending/Attestation - Attestation I have personally seen and examined this patient.: Yes I have fully participated in the care of the patient.: Yes I have reviewed all pertinent clinical information: Yes Notes (Text): 07/17/16 17:02 71 y/o F w/ End stage COPD walk distance (<100 ft) Active smoker On BIPAP overnight with subjective improvement but co2 remains high at baseline. Placed on NC , with improved mentation. On Steroids, nebulizers and 3L NC to keep o2 sat> 92%. UTi on ABX, cx pending. Pt need to stop smoking, pulmonary Rehab . Out of bd/ PT/OT cc time 65 min
[2016-07-17] MEDS: guaiFENesin 600 mg ER Tab PO SCH (17:15)
[2016-07-17] MEDS: MethylPREDNISolone 40 mg Vial IVP SCH (18:17)
--- NOTE | 2016-07-17 18:39 | PN ---
DATE: 07/17/2016 The patient is a 71-year-old, seen and examined. She is on BiPAP. She is fully awake and alert, com municative, just had breakfast. PHYSICAL EXAMINATION: VITAL SIGNS: She is afebrile, pulse 79, respirations 18, blood pressure 109/52. LUNGS: Bilateral fair airflow, no rhonchi or crackle. HEART: S1, S2 audible. Irregular rate control. ABDOMEN: Soft, nontender, obese. No hepatosplenomegaly. NEUROLOGIC: She is awake and alert, communicative. EXTREMITIES: Bilateral legs +1 edema. LABORATORY EXAMINATION: WBCs 7.1, hemoglobin 7.8, hematocrit 25.7, platelets of 214. PT 52.8, INR 4 .89. Chemistry: Sodium 140, potassium 4.2, chloride 101, CO2 28, BUN 52, creatinine 1.3, blood suga r of 240. ASSESSMENT: 1. Status post altered mental status, secondary to carbon dioxide narcosis. 2. Chronic obstructive pulmonary disease exacerbation. 3. Congestive heart failure exacerbation. 4. Hypertension. 5. Noninsulin dependent diabetes. 6. Hyperlipidemia. 7. Gastric arteriovenous malformation, status post cauterization. 8. Blood loss anemia. PLAN: The patient will receive 1 blood transfusion. We will diurese her and continue her on her usu al medication including Amaryl 4 mg twice a day. She is on hydralazine 50 twice a day. Will give he r a small dose of steroid. She is on Maxipime. She is on Protonix. Edwige Kirby MD cc: [phone] TT: 07/17/2016 18:38:45 Confirmation # [id number] Dictation # [id number] en
[2016-07-18] MEDS: Albuterol-Ipratrop 3 mg / 0.5 (3 ml) UD IH SCH ×6 (02:24→19:57)
[2016-07-18 06:10] LABS: ADD MANUAL DIFF? NO
[2016-07-18 06:15] LABS: GRAN # 7.78 (1.4-6.5); GRAN % 86.3 % (50.0-68.0); LYMPH # 0.7 (1.2-3.4); LYMPH % 7.9 % (22.0-35.0); MEAN CELL VOLUME 90.6 fL (80.0-105.0); MEAN CORPUSCULAR HEMOGLOBIN 27.9 pg (25.0-35.0); MEAN CORPUSCULAR HGB CONC 30.7 g/dl (31.0-37.0); MEAN PLATELET VOLUME 10.2 fl (7.0-11.0); MONO # 0.5 (0.1-0.6); MONO % 5.8 % (1.0-6.0); PLATELET COUNT 237 10^3/uL (120.0-450.0); RED CELL DISTRIBUTION WIDTH 19.3 % (11.5-14.5)
[2016-07-18 06:38] LABS: ARTERIAL BLOOD GAS O2 CAPACITY 15.5 mL/dl (16-24); ARTERIAL BLOOD GAS O2 CONTENT 9.5 ML/dl (15-23); ARTERIAL BLOOD HGB O2 SAT 59.7 % (95.0-98.0); CARBOXYHEMOGLOBIN 2.2 % (0.5-1.5); HHB 37.7 % (0-5); METHEMOGLOBIN 0.4 % (0.0-3.0)
[2016-07-18 06:44] LABS: ALB/GLOB RATIO 1.2 (1.1-1.8); BILIRUBIN,TOTAL 0.6 mg/dL (0.2-1.3); CALCIUM 9.3 mg/dL (8.4-10.5); MAGNESIUM 2.3 mg/dL (1.7-2.2); PHOSPHOROUS 3.6 mg/dL (2.5-4.5); POTASSIUM 4.6 mmol/L (3.6-5.0); TOTAL PROTEIN 6.7 g/dL (5.8-8.3)
[2016-07-18 06:53] LABS: INR 4.06 (0.93-1.08)
[2016-07-18] MEDS: Pantoprazole 40 mg EC Tab PO SCH (07:55)
[2016-07-18] MEDS: Insulin Lispro (HUMAlog) HIGH Coverage SC SCH ×3 (07:55→17:31)
[2016-07-18] MEDS: MethylPREDNISolone 40 mg Vial IVP SCH (09:17)
[2016-07-18] MEDS: Cefepime 1gm in NS 100ml 1 GM/100 ML BAG IVPB SCH (09:17)
[2016-07-18] MEDS: Vancomycin 1gm in NS 250ml 1 GM/250 ML BAG IVPB SCH (09:18)
[2016-07-18] MEDS: Potassium Chloride 10 mEq ER Tab PO SCH (09:19)
[2016-07-18] MEDS: guaiFENesin 600 mg ER Tab PO SCH ×2 (09:20→17:30)
--- NOTE | 2016-07-18 09:53 | PN ---
DATE: 07/18/2016 REASON FOR CONSULTATION AND FOLLOWUP: Cardiac evaluation, history of coronary artery disease, histor y of atrial fibrillation, chronic atrial fibrillation, aortic stenosis, 1-vessel CAD, admitted with a ltered mental status, improved. BRIEF CLINICAL HISTORY: A 71-year-old morbidly obese female, very noncompliant, active tobacco abuse , history of COPD, morbid obesity, diabetes, hypertension, hyperlipidemia, chronic atrial fibrillatio n, failed DARIUS cardioversion in the past, history of 1-vessel RCA disease, very well collateralized fr om LAD, moderate aortic stenosis. Came with altered mental status after having keep on smoking at [facility]. Now, patient is awake, alert. Denies any chest pain, shortness of breath, any palpitation. Say s that she will quit smoking. PHYSICAL EXAMINATION: VITAL SIGNS: Temperature afebrile, heart rate 64, blood pressure 149/ . HEENT: PERRLA. Extraocular muscles intact. NECK: Supple. No carotid bruits. No thyromegaly. CHEST: Clear to auscultation. HEART: S1, S2 regular. ABDOMEN: Soft. EXTREMITIES: Clubbing, cyanosis negative. BLOOD WORKUP: WBC 9, hemoglobin 8. , hematocrit 27, platelet count 237. Chemistry shows sodium 130, potassium 4. , chloride 90, carbon dioxide 32, anion gap of 13, BUN 54, creatinine 1.1. IMPRESSION: Chronic atrial fibrillation, anemia, history of gastrointestinal bleed, on anticoagulati on, supratherapeutic INR, trending down, 1-vessel coronary artery disease, right coronary artery tota lly occluded, very well collateralized from left anterior descending, moderate aortic stenosis, chron ic obstructive pulmonary disease, morbid obesity, active tobacco abuse. RECOMMENDATION: Compliance with the medication, compliance with complete cessation of smoking, compl iance with the diet. Continue Corgard. Continue gentle diuretics. Hold off Coumadin for now. Shelley tor H and H. Once therapeutic below 2-2.5, will start Coumadin. We will follow with you. No furthe r cardiac workup is planned. Thank you, Dr. Kirby. The patient had recently DARIUS done to rule out endocarditis dated 04/07/2016 t hat shows ejection fraction 65%, trace aortic regurgitation, moderate aortic stenosis, valve area 1.0 cm squared by planimetry and continuity equation, peak gradient across aortic valve was 21 mmHg, mod erate to severe mitral regurgitation, mild tricuspid regurgitation, moderate plaque in descending aor ta, velocity in left atrial appendage was less than 0.4 meters per second, no vegetation noted, dated 03/28/2016. No further cardiac workup is planned at this time. Thank you, Dr. Kirby, for providing us the opportunity in taking care of the patient. We will foll ow with you. Brianna Sandra MD cc: [phone] TT: 07/18/2016 09:36:49 Confirmation # [id number] Dictation # [id number] en
--- NOTE | 2016-07-18 09:53 | CP.PCM.PN ---
Subjective - Date & Time of Evaluation Date of Evaluation: 07/18/16 Time of Evaluation: 09:00 - Subjective Subjective: No acute events overnight Respiratory status at baseline Sitting up eating breakfast today without distress. Objective - Vital Signs/Intake and Output Vital Signs (last 24 hours): Temp Pulse Resp BP Pulse Ox 98.6 F 73 23 141/71 100 07/18/16 04:00 07/18/16 09:19 07/18/16 07:30 07/18/16 09:20 07/18/16 07:30 Intake and Output: 07/18/16 07/18/16 06:59 18:59 Intake Total 325 Output Total 600 Balance -275 - Medications Medications: Current Medications Acetaminophen (Tylenol 325mg Tab) 650 mg PO Q6H PRN PRN Reason: Fever >100.4 F Albuterol/Ipratropium (Duoneb 3 Mg/0.5 Mg (3 Ml) Ud) 3 ml IH Q2H PRN PRN Reason: Shortness of Breath Albuterol/Ipratropium (Duoneb 3 Mg/0.5 Mg (3 Ml) Ud) 3 ml IH Q6H [facility] Last Admin: 07/18/16 07:20 Dose: 3 ml Aspirin (Ecotrin) 81 mg PO DAILY [facility] Last Admin: 07/18/16 09:19 Dose: 81 mg Furosemide (Lasix) 40 mg IVP DAILY [facility] Last Admin: 07/18/16 09:20 Dose: 40 mg Glimepiride (Amaryl) 4 mg PO BID [facility] Last Admin: 07/16/16 21:00 Dose: Not Given Guaifenesin (Mucinex La) 600 mg PO BID [facility] Last Admin: 07/18/16 09:20 Dose: 600 mg Hydralazine HCl (Apresoline) 50 mg PO BID [facility] Last Admin: 07/18/16 09:18 Dose: 50 mg Vancomycin HCl (Vancomycin 1gm) 1 gm in 250 mls @ 167 mls/hr IVPB DAILY [facility] PRN Reason: Protocol Last Admin: 07/18/16 09:18 Dose: 167 mls/hr Cefepime HCl (Maxipime 1gm) 1 gm in 100 mls @ 100 mls/hr IVPB Q24H [facility] PRN Reason: Protocol Last Admin: 07/18/16 09:17 Dose: 100 mls/hr Insulin Human Lispro (Humalog High) 0 units SC ACHS [facility] PRN Reason: Protocol Last Admin: 07/18/16 07:55 Dose: 4 units Isosorbide Mononitrate (Imdur) 60 mg PO DAILY [facility] Last Admin: 07/18/16 09:19 Dose: 60 mg Methylprednisolone (Solu-Medrol) 30 mg IVP BID [facility] Last Admin: 07/18/16 09:17 Dose: 30 mg Nadolol (Corgard) 10 mg PO BID [facility] Last Admin: 07/18/16 09:19 Dose: 10 mg Nicotine (Nicoderm Cq) 1 patch TD DAILY [facility] Last Admin: 07/18/16 09:16 Dose: 1 patch Pantoprazole Sodium (Protonix Ec Tab) 40 mg PO ACB [facility] Last Admin: 07/18/16 07:55 Dose: 40 mg Potassium Chloride (Klor-Con 10) 10 meq PO DAILY [facility] Last Admin: 07/18/16 09:19 Dose: 10 meq Sitagliptin Phosphate (Januvia) 50 mg PO DAILY [facility] Sodium Chloride ([place]al [place]) 0 ml NS BID PRN PRN Reason: Dry nasal passages Valsartan (Diovan) 320 mg PO DAILY [facility] Last Admin: 07/18/16 09:19 Dose: 320 mg - Labs Labs: 07/18/16 05:30 07/18/16 05:30 PT 43.8 Seconds (9.9-11.8) H* 07/18/16 05:30 INR 4.06 (0.93-1.08) H* 07/18/16 05:30 APTT 40.0 Seconds (23.7-30.8) H 07/18/16 05:30 - Constitutional Appears: No Acute Distress - Head Exam Head Exam: ATRAUMATIC, NORMAL INSPECTION - Eye Exam Eye Exam: EOMI, Normal appearance - ENT Exam ENT Exam: Mucous Membranes Moist, Normal Exam - Respiratory Exam Respiratory Exam: Rhonchi, Wheezes, NORMAL BREATHING PATTERN - Cardiovascular Exam Cardiovascular Exam: REGULAR RHYTHM - GI/Abdominal Exam GI & Abdominal Exam: Normal Bowel Sounds (hernia ) - Exam Exam: absent: Circumcision, NORMAL INSPECTION, Scrotal Swelling, Testicular Tenderness, Uretheral Discharge, Testicular Vertical Lie, Bladder Distension - Extremities Exam Extremities Exam: Full ROM - Back Exam Back Exam: NORMAL INSPECTION - Neurological Exam Neurological Exam: Alert, Awake, Oriented x3 Assessment and Plan - Assessment and Plan (Free Text) Assessment: 71 y/o F w/ COPD exacerbation and UTI COPD Continue Solumedrol 40mg BID Duoneb q4hrs prn needs Pulmonary Rehab and Smoking cessation ON NC 3L to keep o2 sat > 92% Walk distance < 100 ft. BIPAP as needed. OHS, SALOMON,COPD co2 appx 55 at baseline. UTI On ABX pending bacteria identification. dvt p Heparin sq tid.
--- NOTE | 2016-07-18 10:08 | RAD ---
HISTORY: Chest congestion COMPARISON: 07/17/2016 FINDINGS: LUNGS: No active pulmonary disease. PLEURA: No significant pleural effusion identified, no pneumothorax apparent. CARDIOVASCULAR: Mild cardiomegaly. Mild vascular congestion OSSEOUS STRUCTURES: No significant abnormalities. VISUALIZED UPPER ABDOMEN: Normal. OTHER FINDINGS: None. IMPRESSION: Mild vascular congestion
--- NOTE | 2016-07-18 18:15 | PN ---
DATE: 07/18/2016 SUBJECTIVE: The patient is 71 years old, seen and examined, sitting in chair, seems to be comfortab le. PHYSICAL EXAMINATION: GENERAL: Fully awake, alert, oriented, communicative, cognitive. VITAL SIGNS: She is afebrile, pulse 75, respirations 20, blood pressure 141/74. LUNGS: Bilateral good airflow. Few expiratory rhonchi but diffusely decreased breath sounds. HEART: S1, S2 audible. ABDOMEN: Soft, obese, nontender, no rebound, no guarding. NEUROLOGIC: She is awake and alert, communicative. EXTREMITIES: Bilateral leg +4 edema. LABORATORY EXAMINATION: WBC is 9.0, hemoglobin 8.3, hematocrit 27, platelet 237. PT 43.8, INR 4.06. Chemistry: Sodium 138, potassium 4.6, chloride 98, CO2 of 32, BUN 54, creatinine 1.1, blood sugar of 241. Urine shows E. coli that is sensitive to Cipro . ASSESSMENT: 1. Altered mental status secondary to CO2 narcosis. 2. Escherichia coli urinary tract infection. 3. Chronic obstructive pulmonary disease exacerbation. 4. Bronchospasm. 5. Non-insulin dependent diabetes. 6. Hypertension. 7. Peptic ulcer disease. 8. Coronary artery disease with a right coronary artery occlusion. 9. Supratherapeutic PT/INR. PLAN: Currently, the patient is on glimepiride. She is eating and tolerating, will restart that. C ontinue on hydralazine, nadolol and valsartan. Will continue on nebulizer treatment. She is on aspir in 81 daily. She is getting Lasix 40 daily. She is on cefepime q. 24 hours; discontinue cefepime an d start her on Rocephin. We will monitor her blood sugar. Start her on physical therapy and we will evaluate her in a.m. Edwige Kirby MD cc: [phone] TT: 07/18/2016 18:14:36 Confirmation # [id number] Dictation # [id number] ln
[2016-07-19] MEDS: Insulin Lispro (HUMAlog) HIGH Coverage SC SCH ×5 (03:17→22:39)
[2016-07-19 09:17] LABS: ADD MANUAL DIFF? NO
[2016-07-19 09:20] LABS: GRAN # 8.51 (1.4-6.5); GRAN % 85.9 % (50.0-68.0); HEMATOCRIT 26.2 % (36.0-48.0); LYMPH # 0.7 (1.2-3.4); LYMPH % 6.6 % (22.0-35.0); MEAN CELL VOLUME 90.3 fL (80.0-105.0); MEAN CORPUSCULAR HEMOGLOBIN 28.3 pg (25.0-35.0); MEAN CORPUSCULAR HGB CONC 31.3 g/dl (31.0-37.0); MEAN PLATELET VOLUME 10.4 fl (7.0-11.0); MONO # 0.7 (0.1-0.6); MONO % 7.5 % (1.0-6.0); PLATELET COUNT 237 10^3/uL (120.0-450.0); RED CELL DISTRIBUTION WIDTH 19.4 % (11.5-14.5); WHITE BLOOD COUNT 9.9 10^3/ul (4.5-11.0)
[2016-07-19 09:29] LABS: ALB/GLOB RATIO 1.3 (1.1-1.8); ALKALINE PHOSPHATASE 58 U/L (38-133); ALT/SGPT 27 U/L (7-56); AST/SGOT 16 U/L (15-39); BILIRUBIN,TOTAL 0.7 mg/dL (0.2-1.3); BLOOD UREA NITROGEN 48 mg/dL (7-21); CALCIUM 9.6 mg/dL (8.4-10.5); CARBON DIOXIDE 29 mmol/L (21-33); CHLORIDE 98 mmol/L (98-107); GFR AFRICAN-AMERICAN > 60; GLUCOSE,RANDOM 254 mg/dL (70-110); INR 2.36 (0.93-1.08); MAGNESIUM 2.1 mg/dL (1.7-2.2); PARTIAL THROMBOPLASTIN TIME 34.2 Seconds (23.7-30.8); PHOSPHOROUS 3.1 mg/dL (2.5-4.5); POTASSIUM 4.4 mmol/L (3.6-5.0); SODIUM 135 mmol/L (132-148); TOTAL PROTEIN 6.8 g/dL (5.8-8.3)
[2016-07-19] MEDS: Albuterol-Ipratrop 3 mg / 0.5 (3 ml) UD IH SCH ×3 (09:31→21:59)
[2016-07-19] MEDS: Potassium Chloride 10 mEq ER Tab PO SCH (09:58)
[2016-07-19] MEDS: cefTRIAXone 1 gm 1 GM/100 ML BAG IVPB SCH (09:58)
[2016-07-19] MEDS: guaiFENesin 600 mg ER Tab PO SCH ×2 (09:59→18:04)
[2016-07-19] MEDS: Pantoprazole 40 mg EC Tab PO SCH (09:59)
[2016-07-19] MEDS: Vancomycin 1gm in NS 250ml 1 GM/250 ML BAG IVPB SCH (10:00)
--- NOTE | 2016-07-19 12:09 | PN ---
DATE: 07/19/2016 REASON FOR CONSULTATION AND FOLLOWUP: Cardiac evaluation, history of coronary artery disease, histor y of atrial fibrillation, chronic aortic stenosis, 1 vessel coronary artery disease admitted with men nayan status change, now has improved. BRIEF CLINICAL HISTORY: A 71-year-old morbidly obese female, very noncompliant, active tobacco abuse , history of COPD, morbid obesity, diabetes, hypertension, hyperlipidemia, chronic atrial fibrillatio n, failed DARIUS cardioversion in the past, history of 1-vessel CAD, very well ____ from LAD, moderate a ortic stenosis, came with altered mental status after keeping smoking, now patient is in med/surg candice or 576, bed 2. Denies any chest pain, shortness of breath, any palpitation. PHYSICAL EXAMINATION: VITAL SIGNS: Temperature afebrile, heart rate 69, blood pressure 154/78. HEENT: PERRLA. Extraocular muscles intact. NECK: Supple. No carotid bruits. No thyromegaly. CHEST: Clear to auscultation. HEART: S1, S2 regular. ABDOMEN: Soft. EXTREMITIES: Clubbing, cyanosis negative. LABORATORY DATA: Blood workup as follows: WBC ____, hemoglobin 8.2, hematocrit 26.2, platelet count 237. Chemistry shows sodium 135, potassium 4.0, chloride 98, carbon dioxide 29, anion gap of 12, BU N 48, creatinine 0.8. IMPRESSION: Acute exacerbation of chronic obstructive pulmonary disease, altered mental status impro ernie, history of chronic atrial fibrillation, noncompliance with the medication, active tobacco abuse, morbid obesity, 1 vessel coronary artery disease, status post DARIUS on 04/07/2016. Ejection fraction o f 65%, trace aortic regurgitation, moderate aortic stenosis, 1.7 meters square ____ by ____ and by p lanimetry. There is moderate plaque in the descending aorta. INR is therapeutic now. We will resta rt Coumadin, it was on hold. RECOMMENDATION: Restart Continue losartan, continue nadolol. We will follow with you. We will star t 6 mg of Coumadin today and will follow the PT/INR. Brianna Sandra MD cc: [phone] TT: 07/19/2016 12:08:06 Confirmation # [id number] Dictation # [id number] jn
--- NOTE | 2016-07-19 17:51 | PN ---
DATE: 07/19/2016 SUBJECTIVE: The patient is 71 years old, seen and examined, sitting in chair, fully awake, alert and oriented. No cough, no congestion. Complained of difficulty walking. PHYSICAL EXAMINATION: VITAL SIGNS: She is afebrile, pulse 69, respirations 18, blood pressure 154/78. LUNGS: Bilateral diffusely decreased breath sounds, no active rhonchi or crackle. HEART: S1, S2 audible. ABDOMEN: Soft, obese, nontender, no rebound, no guarding. NEUROLOGIC: She is awake and alert, communicative. Moves all extremities. LABORATORY EXAMINATION: WBC is 9.9, hemoglobin 8.2, hematocrit 26, platelets 237. PT 25.1, INR 2.36 . Chemistry: Sodium 135, potassium 4.4, chloride 98, CO2 of 29, BUN 48, creatinine 0.8, blood sugar of 345. ASSESSMENT AND PLAN: 1. Status post CO2 narcosis. 2. Escherichia coli urinary tract infection. 3. Hypertension. 4. Insulin-dependent diabetes. 5. Chronic anemia. 6. Active smoker. 7. Deconditioning and difficulty walking. PLAN: Will continue her on her current medication. Continue nebulizer treatment. Will follow up el ectrolyte and CBC intermittently. Have a request for TCU evaluation. Start her on Coumadin 1 mg tod ay. Encourage physical therapy. Will reevaluate the patient in a.m. Edwige Kirby MD cc: [phone] TT: 07/19/2016 17:51:26 Confirmation # [id number] Dictation # [id number] dn
--- NOTE | 2016-07-19 18:31 | RAD ---
HISTORY: Chest congestion COMPARISON: Comparison chest dated 07/18/2016 and 5:22 a.m. FINDINGS: LUNGS: Re- demonstrated are mild vascular congestive changes with bilateral alveolar-type infiltrates and bilateral effusions left greater than right. PLEURA: As above. No evidence of pneumothorax pneumothorax apparent. CARDIOVASCULAR: Cardiomegaly. OSSEOUS STRUCTURES: No significant abnormalities. VISUALIZED UPPER ABDOMEN: Normal. OTHER FINDINGS: None. IMPRESSION: Re- demonstrated are mild vascular congestive changes with bilateral alveolar-type infiltrates and bilateral effusions left greater than right.
[2016-07-20] MEDS: Albuterol-Ipratrop 3 mg / 0.5 (3 ml) UD IH SCH ×4 (02:30→20:30)
[2016-07-20] MEDS: Pantoprazole 40 mg EC Tab PO SCH (08:19)
[2016-07-20] MEDS: Insulin Lispro (HUMAlog) HIGH Coverage SC SCH ×4 (08:20→21:21)
[2016-07-20] MEDS: guaiFENesin 600 mg ER Tab PO SCH ×2 (10:23→17:42)
[2016-07-20 10:24] LABS: ADD MANUAL DIFF? NO
[2016-07-20] MEDS: cefTRIAXone 1 gm 1 GM/100 ML BAG IVPB SCH (10:24)
[2016-07-20 10:29] LABS: BASO # 0.01 K/mm3 (0.0-2.0); BASO % 0.1 % (0.0-3.0); EOS % 0.3 % (1.5-5.0); GRAN # 6.44 (1.4-6.5); GRAN % 72.9 % (50.0-68.0); HEMATOCRIT 26.2 % (36.0-48.0); LYMPH # 1.5 (1.2-3.4); LYMPH % 16.6 % (22.0-35.0); MEAN CELL VOLUME 90.3 fL (80.0-105.0); MEAN CORPUSCULAR HEMOGLOBIN 27.9 pg (25.0-35.0); MEAN CORPUSCULAR HGB CONC 30.9 g/dl (31.0-37.0); MEAN PLATELET VOLUME 9.8 fl (7.0-11.0); MONO # 0.9 (0.1-0.6); MONO % 10.1 % (1.0-6.0); PLATELET COUNT 190 10^3/uL (120.0-450.0); RED CELL DISTRIBUTION WIDTH 18.9 % (11.5-14.5); WHITE BLOOD COUNT 8.8 10^3/ul (4.5-11.0)
[2016-07-20 10:37] LABS: INR 1.69 (0.93-1.08)
[2016-07-20 10:45] LABS: ALB/GLOB RATIO 1.3 (1.1-1.8); ALKALINE PHOSPHATASE 51 U/L (38-133); ALT/SGPT 32 U/L (7-56); AST/SGOT 20 U/L (15-39); BILIRUBIN,TOTAL 0.7 mg/dL (0.2-1.3); BLOOD UREA NITROGEN 43 mg/dL (7-21); CALCIUM 9.9 mg/dL (8.4-10.5); CARBON DIOXIDE 36 mmol/L (21-33); CHLORIDE 97 mmol/L (98-107); GFR AFRICAN-AMERICAN > 60; GLUCOSE,RANDOM 203 mg/dL (70-110); POTASSIUM 5.2 mmol/L (3.6-5.0); SODIUM 139 mmol/L (132-148); TOTAL PROTEIN 6.8 g/dL (5.8-8.3)
[2016-07-20] MEDS: Potassium Chloride 10 mEq ER Tab PO SCH (11:14)
[2016-07-20] MEDS: Vancomycin 1gm in NS 250ml 1 GM/250 ML BAG IVPB SCH (11:36)
--- NOTE | 2016-07-20 14:04 | PN ---
DATE: 07/20/2016 REASON FOR CONSULTATION: Cardiac evaluation, history of coronary artery disease, history of atrial f ibrillation, chronic, aortic stenosis, 1-vessel CAD, admitted with altered mental status. BRIEF CLINICAL HISTORY: A 71-year-old morbidly obese female, noncompliant, active tobacco abuse, his tory of COPD, history of aortic stenosis, moderate, history of 1-vessel coronary artery disease. Rec ently had DARIUS done, moderate aortic stenosis, no evidence of endocarditis. Admitted with altered men nayan status. Now, patient is awake and alert. Denies any chest pain, shortness of breath, any palpit ation. PHYSICAL EXAMINATION: VITAL SIGNS: Temperature afebrile, heart rate 61, blood pressure 171/68. HEENT: PERRLA. Extraocular muscles intact. NECK: Supple. No carotid bruits. No thyromegaly. CHEST: Clear to auscultation. HEART: S1, S2 regular. ABDOMEN: Soft. EXTREMITIES: Clubbing, cyanosis negative. WBC 8.8, hemoglobin , hematocrit 26.2, platelet count 190. Chemistry shows sodium 130, potassiu m 5.2, chloride 97, carbon dioxide 30, anion gap of 11, BUN , creatinine 0.8. IMPRESSION: Altered mental status, which is improved, active tobacco abuse, morbid obesity, chronic atrial fibrillation, 1-vessel coronary artery disease, recently had transesophageal echocardiogram , ejection fraction %, trace aortic regurgitation, moderate aortic stenosis, valve area o f 1.07 cm squared by planimetry and continuity equation, moderate plaque in descending aorta, INR yes terday was therapeutic, so started Coumadin. It slipped to 1.69, so we will increase back Coumadin. Yesterday, increased to 6 mg. Will give 7.5 today. We will follow with you. Thank you, Dr. Kirby, for providing us the opportunity in taking care of the patient. Brianna Sandra MD cc:Edwige Kirby MD [phone] TT: 07/20/2016 14:03:26 Confirmation # [id number] Dictation # [id number] en
--- NOTE | 2016-07-20 16:42 | RAD ---
HISTORY: Chest congestion COMPARISON: 07/19/2016. FINDINGS: LUNGS: Mild pulmonary vascular congestive changes with bilateral alveolar-type infiltrates slightly improved on the left side. . Small left and possible tiny right-sided effusion PLEURA: No pneumothorax apparent. CARDIOVASCULAR: Cardiomegaly. OSSEOUS STRUCTURES: No significant abnormalities. VISUALIZED UPPER ABDOMEN: Normal. OTHER FINDINGS: None. IMPRESSION: Mild pulmonary vascular congestive changes with bilateral alveolar-type infiltrates slightly improved on the left side. . Small left and possible tiny right-sided effusion
--- NOTE | 2016-07-20 21:08 | PN ---
DATE: 07/20/2016 SUBJECTIVE: The patient is currently comfortable. She says her breathing is better. She has no complaints of any headaches or dizziness. PHYSICAL EXAMINATION: VITAL SIGNS: Temperature is 97.8, pulse of 81, blood pressure 144/103, respiration is 18. GENERAL: The patient comfortable, in no acute distress. HEENT: Anicteric sclerae. Moist mucosa. NECK: No JVD or adenopathy. CARDIAC: S1/S2. No murmurs. No rubs. Regular. RESPIRATORY: Clear to auscultation bilaterally. No wheezes, rales, or rhonchi. Good air entry. ABDOMEN: Bowel sounds are positive, soft, nontender, and nondistended. EXTREMITIES: 1+ edema. Has 1+ pulses. LABORATORY: Hemoglobin is 8.1. ASSESSMENT: 1. Shortness of breath, improved. 2. Urinary tract infection secondary to Escherichia coli. 3. Hypertension. 4. Diabetes type 2. 5. Chronic anemia. 6. Smoking. 7. Gait dysfunction. PLAN: The patient is breathing better. Her hemoglobin borderline. She had a potassium that is elevated. I will discontinue her KCl. I will add iron studies to tomorrow's labs. She is on Coumadin. Her INR is subtherapeutic at 1.69. It was elevated initially. Dr. Sandra is managing it. The patient is on Amaryl for diabetes and Diovan for hypertension, is on isosorbide. Da Wooten MD cc: [phone] TT: 07/20/2016 21:07:45 Confirmation # [id number] Dictation # [id number] mn DELBERT
[2016-07-21] MEDS: Albuterol-Ipratrop 3 mg / 0.5 (3 ml) UD IH SCH ×5 (01:47→20:00)
[2016-07-21 07:27] LABS: ADD MANUAL DIFF? NO
[2016-07-21 07:34] LABS: EOS % 0.2 % (1.5-5.0); GRAN # 7.32 (1.4-6.5); HEMATOCRIT 27.6 % (36.0-48.0); LYMPH # 1.4 (1.2-3.4); LYMPH % 15.2 % (22.0-35.0); MEAN CELL VOLUME 89.9 fL (80.0-105.0); MEAN CORPUSCULAR HEMOGLOBIN 27.7 pg (25.0-35.0); MEAN CORPUSCULAR HGB CONC 30.8 g/dl (31.0-37.0); MEAN PLATELET VOLUME 10.3 fl (7.0-11.0); MONO # 0.6 (0.1-0.6); MONO % 6.6 % (1.0-6.0); PLATELET COUNT 218 10^3/uL (120.0-450.0); RED CELL DISTRIBUTION WIDTH 18.4 % (11.5-14.5); WHITE BLOOD COUNT 9.4 10^3/ul (4.5-11.0)
[2016-07-21 07:43] LABS: INR 1.68 (0.93-1.08)
[2016-07-21 07:53] LABS: IRON 33 ug/dL (45-180)
[2016-07-21 07:58] LABS: ALB/GLOB RATIO 1.3 (1.1-1.8); ALKALINE PHOSPHATASE 55 U/L (38-133); ALT/SGPT 40 U/L (7-56); AST/SGOT 24 U/L (15-39); BILIRUBIN,TOTAL 0.7 mg/dL (0.2-1.3); BLOOD UREA NITROGEN 42 mg/dL (7-21); CALCIUM 10.2 mg/dL (8.4-10.5); CARBON DIOXIDE 36 mmol/L (21-33); CHLORIDE 96 mmol/L (98-107); GFR AFRICAN-AMERICAN > 60; GLUCOSE,RANDOM 180 mg/dL (70-110); POTASSIUM 4.6 mmol/L (3.6-5.0); SODIUM 139 mmol/L (132-148); TOTAL PROTEIN 6.8 g/dL (5.8-8.3)
[2016-07-21] MEDS: Pantoprazole 40 mg EC Tab PO SCH (08:45)
[2016-07-21] MEDS: Insulin Lispro (HUMAlog) HIGH Coverage SC SCH ×4 (08:45→21:49)
[2016-07-21] MEDS: guaiFENesin 600 mg ER Tab PO SCH ×2 (09:13→17:51)
[2016-07-21] MEDS: cefTRIAXone 1 gm 1 GM/100 ML BAG IVPB SCH (09:16)
[2016-07-21] MEDS: Vancomycin 1gm in NS 250ml 1 GM/250 ML BAG IVPB SCH (09:16)
--- NOTE | 2016-07-21 11:42 | PN ---
DATE: 07/21/2016 The patient is in room 576, bed 2. REASON FOR CONSULTATION AND FOLLOWUP: History of coronary artery disease, history of atrial fibrilla tion, aortic stenosis, 1-vessel coronary artery disease, admitted with altered mental status. HISTORY OF PRESENT ILLNESS: The patient is a 71-year-old morbidly obese female, noncompliant, active tobacco abuse, history of COPD, aortic stenosis, 1-vessel coronary artery disease. Recent DARIUS was d one which showed moderate aortic stenosis, no evidence of endocarditis. Admitted with altered mental status. Now patient has improved. Denies any chest pain, shortness of breath or palpitation. The patient is sitting comfortably in a chair. PHYSICAL EXAMINATION: VITAL SIGNS: Blood pressure 140/73, respirations 20, pulse 61, temperature 97.5. HEAD: Normocephalic. EYES: Pupils normal. Conjunctivae slightly pale. NECK: JVP low. Carotid equal. THORAX: AP diameter normal. LUNGS: No rales. CARDIOVASCULAR: S1, S2. Systolic murmur, no rub. ABDOMEN: Protuberant, no organomegaly. EXTREMITIES: No clubbing, no cyanosis. LABORATORY DATA: WBC 9.4, hemoglobin 8.5, hematocrit 27.6, platelets 218. Sodium 139, potassium 4.6 , BUN 42, creatinine 0.8, random sugar 214, calcium 10.2. AST, ALT normal. Total protein and albumi n normal. DIAGNOSES: Altered mental status, active tobacco abuse, morbid obesity, chronic atrial fibrillation, 1-vessel coronary artery disease. Recent transesophageal echocardiogram on 04/07/2016 was negative for endocarditis, moderate aortic stenosis, valve area 1.7 cm2, moderate plaque in descending aorta, ejection fraction 65%. The patient's prothrombin time is 18.1, INR 1.68. On admission, the patient' s INR was elevated. PLAN: The patient is on Amaryl 4 mg p.o. ACB, hydralazine 50 mg b.i.d., Corgard 10 mg b.i.d., warfar in 7.5 mg p.o. daily, Diovan 320 p.o. daily, DuoNeb 3 mL IH q. 2 hours p.r.n., aspirin 81 mg p.o. debo ly, isosorbide 60 mg daily, Januvia 50 mg p.o. daily, Lasix 40 mg IV daily, prednisone 20 mg b.i.d., Protonix 40 daily, Rocephin 1 gram IV daily, vancomycin 1 gram IV daily. Will continue present thera jazz and will follow PT/INR tomorrow morning. Will follow with you. Brianna Deng MD cc: [phone] TT: 07/21/2016 11:41:49 Confirmation # [id number] Dictation # [id number] mn
[2016-07-22] MEDS: Albuterol-Ipratrop 3 mg / 0.5 (3 ml) UD IH SCH ×5 (03:43→20:26)
--- NOTE | 2016-07-22 08:06 | DS ---
The patient is a 71-year-old, seen and examined, sitting in chair, upset about her daughter telling h er that if she did not quit smoking, daughter will place her in a halfway. She is crying, does not want to go to halfway, wants some physical therapy. She states "Once I'm stable, I would li ke to go home". PHYSICAL EXAMINATION: GENERAL: She is awake and alert, communicative. VITAL SIGNS: She is afebrile, pulse 61, respiration 20, blood pressure 140/73. LUNGS: Bilateral diffusely decreased breath sounds, no significant rhonchi or crackle. HEART: S1, S2 audible. No murmur. ABDOMEN: Soft, obese, nontender, no rebound, no guarding. NEUROLOGIC: The patient is awake and alert, communicative. Moves all extremities. EXTREMITIES: Bilateral legs, +2 edema. LABORATORY EXAMINATION: WBCs 9.4, hemoglobin 8.5, hematocrit 27.6, platelets of 215. PT is 18.1, IN R 1.68. Chemistry: Sodium is 139, potassium 4.6, chloride 96, CO2 36, BUN 42, creatinine 0.8, blood sugar of 210. ASSESSMENT: 1. Status post chronic obstructive pulmonary disease exacerbation. 2. Anemia, status post blood transfusion. 3. Hypertension. 4. Coronary artery disease. 5. Chronic kidney disease. 6. Obstructive sleep apnea. 7. 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 PLAN: We will continue patient on current medication. She is getting nebulizer treatment. She is o n glimepiride. She will get nadolol 10 mg twice a day, Coumadin 7.5 twice a day and she is on Lasix 40 IV daily. She is doing well with the patch for now. She has Escherichia coli urinary tract infec tion that is being covered by Rocephin and she is receiving Rocephin that she needs 2 more days. Re uest for TCU evaluation. If accepted, she can be transferred to TCU. Edwige Kirby MD cc: [phone] TT: 07/21/2016 15:12:53 en
[2016-07-22 08:07] LABS: INR 2.1 (0.93-1.08)
[2016-07-22] MEDS: Pantoprazole 40 mg EC Tab PO SCH (08:50)
[2016-07-22] MEDS: Insulin Lispro (HUMAlog) HIGH Coverage SC SCH ×4 (08:50→21:17)
[2016-07-22] MEDS: guaiFENesin 600 mg ER Tab PO SCH ×2 (09:19→18:36)
[2016-07-22] MEDS: Vancomycin 1gm in NS 250ml 1 GM/250 ML BAG IVPB SCH (09:22)
[2016-07-22] MEDS: cefTRIAXone 1 gm 1 GM/100 ML BAG IVPB SCH (09:22)
--- NOTE | 2016-07-22 09:27 | RAD ---
HISTORY: Chest congestion COMPARISON: 07/20/2016 FINDINGS: LUNGS: There is improvement in the bilateral infiltrates and vascular congestion PLEURA: No significant pleural effusion identified, no pneumothorax apparent. CARDIOVASCULAR: Mild cardiomegaly OSSEOUS STRUCTURES: No significant abnormalities. VISUALIZED UPPER ABDOMEN: Normal. OTHER FINDINGS: None. IMPRESSION: Improvement in bilateral infiltrates and vascular congestion
--- NOTE | 2016-07-22 13:38 | PN ---
DATE: 07/22/2016 REASON FOR CONSULTATION AND FOLLOWUP: History of coronary artery disease, history of atrial fibrilla tion, aortic stenosis, one-vessel disease, admitted with altered mental status. BRIEF CLINICAL HISTORY: This is a 71-year-old morbidly obese female, noncompliant with the medicatio n, active tobacco abuse, COPD, aortic stenosis, one-vessel CAD, moderate aortic stenosis, admitted wi th altered mental status. Now, patient is stable. Denies any chest pain, shortness of breath, any p alpitation. Family, the daughter, is at the bedside. PHYSICAL EXAMINATION: As follows: VITAL SIGNS: Temperature afebrile, heart rate 63, blood pressure 163/63. HEENT: PERRLA. Extraocular muscles intact. NECK: Supple. No carotid bruits. No thyromegaly. CHEST: Clear to auscultation. HEART: S1, S2 regular. ABDOMEN: Soft. EXTREMITIES: Clubbing and cyanosis negative. LABORATORY DATA: WBC 9.4, hemoglobin 8.5, hematocrit 27.6 as of yesterday. INR today is 2.1. IMPRESSION: Morbid obesity, diabetes, hypertension, hyperlipidemia, one-vessel coronary artery disea se, moderate aortic stenosis, chronic atrial fibrillation, on anticoagulation; noncompliance with the medication, active tobacco abuse. RECOMMENDATION: Continue nadolol. Continue Coumadin. Monitor INR. Continue rehab, compliance with the medication, and complete compliance with medication and compliance with the diet and complete ce ssation of smoking. We will follow with you. Thank you, Dr. Kirby, for providing the opportunity in taking care of the patient. Brianna Sandra MD cc: [phone] TT: 07/22/2016 13:37:08 Confirmation # [id number] Dictation # [id number] sn
--- NOTE | 2016-07-22 13:51 | DS ---
The patient is 71 years old, seen and examined, sitting with her daughter. Seems to be upset and anthony olga is advising her not to smoke and she gets upset about it. She complained of feeling weak and t ired and difficulty walking. PHYSICAL EXAMINATION: VITAL SIGNS: She is afebrile, pulse 63, respirations 18, blood pressure 163/63. LUNGS: Bilateral fair airflow, no rhonchi or crackle. HEART: S1, S2 audible. ABDOMEN: Soft, nontender, obese. No hepatosplenomegaly. NEUROLOGIC: She is awake and alert, communicative. LABORATORY EXAM: Her PT is 22.7, INR 2.10. Chemistry: Blood sugar is 234. ASSESSMENT AND PLAN: 1. Status post CO2 narcosis with altered mental status. 2. Chronic obstructive pulmonary disease exacerbation. 3. Congestive heart failure exacerbation. 4. Hypertension. 5. Coronary artery disease. 6. Morbid obesity. 7. Non-insulin dependent diabetes. 8. Active smoking. 9. Deconditioning and difficulty walking. PLAN: Continue patient on current medication. She is on Amaryl, she is on hydralazine and nadolol. We will give her 5 mg of Coumadin today. We will monitor her PT/INR intermittently. Request for TC U has been placed and once she is accepted, she can be transferred to TCU today. Edwige Kirby MD cc: [phone] TT: 07/22/2016 13:50:40 sn
[2016-07-22 15:57] LABS: URINE BILIRUBIN NEGATIVE (NEGATIVE); URINE BLOOD LARGE (NEGATIVE); URINE GLUCOSE (UA) 500 mg/dL (NEGATIVE); URINE KETONE NEGATIVE (NEGATIVE); URINE LEUKOCYTE ESTERASE SMALL Leu/uL (NEGATIVE); URINE PROTEIN TRACE mg/dL (<30 mg/dL); URINE UROBILINOGEN 0.2 E.U./dL (<1 E.U./dL)
[2016-07-22 15:59] LABS: URINE APPEARANCE SL CLOUDY (CLEAR); URINE COLOR YELLOW (YELLOW)
[2016-07-22 16:13] LABS: URINE BACTERIA SMALL (NEG); URINE RBC TNTC /hpf (0-2)
[2016-07-22 16:22] VITALS: RESP 20
[2016-07-23] MEDS: Albuterol-Ipratrop 3 mg / 0.5 (3 ml) UD IH SCH ×5 (03:22→21:24)
[2016-07-23 07:41] LABS: INR 2.48 (0.93-1.08)
[2016-07-23] MEDS: Pantoprazole 40 mg EC Tab PO SCH (08:23)
[2016-07-23] MEDS: Insulin Lispro (HUMAlog) HIGH Coverage SC SCH ×4 (08:24→21:59)
[2016-07-23] MEDS: Vancomycin 1gm in NS 250ml 1 GM/250 ML BAG IVPB SCH (09:33)
[2016-07-23] MEDS: guaiFENesin 600 mg ER Tab PO SCH ×2 (09:37→17:41)
[2016-07-23] MEDS: cefTRIAXone 1 gm 1 GM/100 ML BAG IVPB SCH (11:46)
--- NOTE | 2016-07-23 12:07 | PN ---
DATE: 07/23/2016 The patient is in room 576, bed #2. REASON FOR CONSULTATION AND FOLLOWUP: Coronary artery disease, history of atrial fibrillation, aorti c stenosis, 1-vessel disease, admitted with altered mental status. HISTORY OF PRESENT ILLNESS: The patient is a 71-year-old morbidly obese female, noncompliant with me dication, active tobacco abuse, COPD, aortic stenosis, 1-vessel CAD, moderate aortic stenosis, admitt ed with altered mental status. Now, patient is sitting in chair without any chest pain, shortness of breath, or palpitation. The patient is conscious and alert now, answers questions appropriately. PHYSICAL EXAMINATION: VITAL SIGNS: Blood pressure 115/67, respirations 20, pulse 65, patient is afebrile. HEAD: Normocephalic. EYES: Pupils normal. Conjunctivae slightly pale. NECK: JVP low. Carotid equal. THORAX: AP diameter normal. LUNGS: Clear. CARDIOVASCULAR: S1, S2. Ejection systolic murmur grade III/. No rub. ABDOMEN: Protuberant, no organomegaly. EXTREMITIES: No clubbing, no cyanosis. LABORATORY DATA: WBC 9.4, hemoglobin 8.5, hematocrit 27.6, platelets 218. Random sugar 237. Sodium 139, potassium 4.6, BUN 42, creatinine 0.8. AST, ALT, total protein and albumin normal. DIAGNOSES: Morbid obesity, diabetes, hypertension, hyperlipidemia, 1-vessel coronary artery disease, moderate aortic stenosis; chronic atrial fibrillation, on anticoagulation, noncompliant with medicat ion; active tobacco abuse. PLAN: The patient is on glimepiride 4 mg daily, hydralazine 50 mg b.i.d., Corgard 10 mg b.i.d., warf alvin 5 mg daily, Diovan 320 p.o. daily, DuoNeb hand nebulizer therapy, aspirin 81 mg daily, metformin 500 b.i.d., isosorbide mono 60 p.o. daily, Januvia 50 mg daily, furosemide 40 IV daily for swelling on the legs, prednisone 20 mg daily, Protonix 40 daily, Rocephin 1 gram IV daily. Will continue pres ent therapy and will repeat SMA-7 in the morning. Brianna Deng MD cc: [phone] TT: 07/23/2016 12:06:34 Confirmation # [id number] Dictation # [id number] mn
[2016-07-24] MEDS: Albuterol-Ipratrop 3 mg / 0.5 (3 ml) UD IH SCH ×4 (07:25→19:37)
--- NOTE | 2016-07-24 07:55 | PN ---
DATE: 07/23/2016 The patient is a 71-year-old, seen and examined, sitting in chair, seems to be comfortable, eating al l different kind of food brought in by the family including chips, grapes, although patient is diabet ic. I spoke to patient's daughter, who states that mom is very depressed and she asked her to bring all those kinds of foods. She was instructed not to take high carb diet. That is raising her blood sugars since she is on oral steroids for her COPD exacerbation. PHYSICAL EXAMINATION: GENERAL: She is awake and alert, communicative. VITAL SIGNS: She is afebrile, pulse 63, respirations 20, blood pressure 137/59. LUNGS: Bilateral diffusely decreased breath sounds, occasional expiratory rhonchi. HEART: S1, S2 audible. ABDOMEN: Soft, obese, nontender, no rebound, no guarding. NEUROLOGIC: She is awake and alert, communicative, moves all extremities. EXTREMITIES: +2 leg edema. LABORATORY EXAMINATION: PT 26.8, INR 2.48. Blood sugar is 237. ASSESSMENT: 1. Status post carbon dioxide narcosis. 2. Chronic obstructive pulmonary disease exacerbation. 3. Hypertension. 4. Hyperlipidemia. 5. Non-insulin dependent diabetes. 6. Status post carotid endarterectomy. 7. Morbid obesity. PLAN: Earlier, plan was to send patient to TCU and her case was reviewed and she was about to be tra nsferred to TCU, but then she was declined because of her insurance reason. I will reach out to the patient's family and either she will be sent to subacute rehabilitation or sent home with PT. Edwige Kirby MD cc: [phone] TT: 07/24/2016 07:54:34 Confirmation # [id number] Dictation # [id number] en
[2016-07-24] MEDS: Insulin Lispro (HUMAlog) HIGH Coverage SC SCH ×3 (08:05→17:18)
[2016-07-24 08:58] LABS: BLOOD UREA NITROGEN 38 mg/dL (7-21); CALCIUM 9.9 mg/dL (8.4-10.5); CARBON DIOXIDE 36 mmol/L (21-33); CHLORIDE 97 mmol/L (98-107); GFR AFRICAN-AMERICAN > 60; GLUCOSE,RANDOM 95 mg/dL (70-110); MAGNESIUM 2.1 mg/dL (1.7-2.2); PHOSPHOROUS 4.2 mg/dL (2.5-4.5); POTASSIUM 4.5 mmol/L (3.6-5.0); SODIUM 139 mmol/L (132-148)
[2016-07-24] MEDS: Pantoprazole 40 mg EC Tab PO SCH (09:08)
[2016-07-24] MEDS: cefTRIAXone 1 gm 1 GM/100 ML BAG IVPB SCH (09:14)
[2016-07-24] MEDS: guaiFENesin 600 mg ER Tab PO SCH ×2 (09:16→17:18)
--- NOTE | 2016-07-24 12:56 | PN ---
DATE: 07/24/2016 The patient is in room 576, bed #2. REASON FOR CONSULTATION AND FOLLOWUP: Coronary artery disease, history of atrial fibrillation, aorti c stenosis, 1 vessel disease, admitted with altered mental status. HISTORY OF PRESENT ILLNESS: The patient is a 71-year-old morbidly obese female, noncompliant with me dication, continues to smoke, COPD, aortic stenosis, 1 vessel CAD, aortic stenosis which is moderate, admitted with altered mental status. The patient with therapy has improved. Denies chest pain, den ies shortness of breath. Sitting in chair comfortably. PHYSICAL EXAMINATION: VITAL SIGNS: Blood pressure 160/60, yesterday blood pressure was 137/59, respirations 20, pulse 60, temperature 97.5. HEAD: Normocephalic. EYES: Pupils normal. Conjunctivae are slightly pale. NECK: JVP low. Carotids equal. THORAX: AP diameter normal. LUNGS: No significant rales. CARDIOVASCULAR: S1, S2, ejection systolic murmur. ABDOMEN: Protuberant, no organomegaly. EXTREMITIES: No clubbing, no cyanosis. LABORATORY DATA: WBC 9.4, hemoglobin 8.5, hematocrit 27.6, platelets 218. Sodium 139, potassium 4.5 , BUN 38, creatinine 0.8, random glucose 95, calcium 9.9, phosphorus 4.2, magnesium 2.1. DIAGNOSES: Morbid obesity, diabetes, hypertension, hyperlipidemia, 1 vessel coronary artery disease, moderate aortic stenosis, chronic atrial fibrillation on anticoagulation, noncompliant with medicati on, active tobacco abuse, chronic obstructive pulmonary disease. PLAN: Prothrombin time yesterday 26.8, INR 2.48, therapeutic. Continue warfarin 5 mg daily. The jt villalobos is on Diovan, hydralazine, glimepiride, DuoNeb hand nebulizer therapy, aspirin 81 mg daily, iso sorbide mono 60 daily, Januvia 50 mg p.o. daily, furosemide 40 mg IV daily, prednisone 20 mg p.o. debo ly, Rocephin 1 gram IV daily. The patient is getting physical therapy. We will continue to follow w ith you. Brianna Deng MD cc: [phone] TT: 07/24/2016 12:55:55 Confirmation # [id number] Dictation # [id number] rn
[2016-07-24] MEDS: Nystatin 100,000 Units/gm Topical Pow(15 gm) TOP SCH ×2 (14:00→17:19)
[2016-07-24 16:14] VITALS: BP 157/51; PULSE 64; TEMP 98.2; O2SAT 95
--- NOTE | 2016-07-24 23:35 | DS ---
HISTORY OF PRESENT ILLNESS: The patient is 71 years old. Seen and examined and seemed to be doing wel l. No chest pain, no shortness of breath. Complained of bilateral leg swelling. As per nurse, she w as able to walk in the hallway with a walker without getting short of breath. PHYSICAL EXAMINATION: VITAL SIGNS: She is afebrile, pulse 60, respirations 20, blood pressure 160/60. LUNGS: Bilateral good air flow, although she has diffusely decreased breath sounds posteriorly. HEART: S1, S2 audible. ABDOMEN: Soft, obese, nontender, no rebound, no guarding. GENITOURINARY: She has vaginal itching. NEUROLOGIC: She is awake and alert. EXTREMITIES: Bilateral leg +2 edema. LABORATORY EXAM: WBC is 9.4, hemoglobin 8.5, hematocrit 27.6, platelet of 218. PT 2.48. Chem istry: Sodium 139, potassium 4.5, chloride 97, CO2 36, BUN 38, creatinine 0.8, blood sugar 138. ASSESSMENT AND PLAN: 1. Status post CO2 narcosis. 2. Chronic obstructive pulmonary disease exacerbation. 3. Hypertension. 4. Morbid obesity. 5. Pulmonary hypertension. 6. Coronary artery disease. PLAN: The patient was declined by TCU. She does need some rehabilitation. That has been arranged a s home PT, so we will discontinue IV Lasix and switch to p.o. and discontinue antibiotics since she h as finished course of 1 week of Rocephin and patient will be discharged home and she has no active wh eezing. Will discontinue her steroid also and follow her up as outpatient. Edwige Kirby MD cc: [phone] TT: 07/24/2016 23:34:43 ln
== END 2016-07-24 21:15 | DRG 191 ==
LOC: ED 14:50 → ERH 18:32 → CCU 07-17 00:43 → 5RSO 07-18 13:39
PROVIDERS: ADMIT Internal Medicine; ATTEND Internal Medicine
PROC: 5A09357 Assistance with Respiratory Ventilation, Less than 24 Consecutive Hours, Continuous Positive Airway Pressure (ICD-10-PCS; principal; 2016-07-17)
PROC: 3E0F7GC Introduction of Other Therapeutic Substance into Respiratory Tract, Via Natural or Artificial Opening (ICD-10-PCS; 2016-07-17)
PROC: 30233N1 Transfusion of Nonautologous Red Blood Cells into Peripheral Vein, Percutaneous Approach (ICD-10-PCS; 2016-07-17)
DX: J44.1 Chronic obstructive pulmonary disease with (acute) exacerbation (principal); N39.0 Urinary tract infection, site not specified; D50.0 Iron deficiency anemia secondary to blood loss (chronic); I27.2 Other secondary pulmonary hypertension; E11.22 Type 2 diabetes mellitus with diabetic chronic kidney disease; I13.0 Hypertensive heart and chronic kidney disease with heart failure and stage 1 through stage 4 chronic kidney disease, or unspecified chronic kidney disease; Z68.41 Body mass index [BMI] 40.0-44.9, adult; I50.9 Heart failure, unspecified; K31.819 Angiodysplasia of stomach and duodenum without bleeding; J98.01 Acute bronchospasm; K74.60 Unspecified cirrhosis of liver; I48.2 Chronic atrial fibrillation; I25.10 Atherosclerotic heart disease of native coronary artery without angina pectoris; E78.5 Hyperlipidemia, unspecified; R09.02 Hypoxemia; G47.33 Obstructive sleep apnea (adult) (pediatric); N18.9 Chronic kidney disease, unspecified; B96.20 Unspecified Escherichia coli [E. coli] as the cause of diseases classified elsewhere; E66.01 Morbid (severe) obesity due to excess calories; I08.3 Combined rheumatic disorders of mitral, aortic and tricuspid valves; K27.9 Peptic ulcer, site unspecified, unspecified as acute or chronic, without hemorrhage or perforation; F17.210 Nicotine dependence, cigarettes, uncomplicated; R26.2 Difficulty in walking, not elsewhere classified; Z96.653 Presence of artificial knee joint, bilateral; Z79.01 Long term (current) use of anticoagulants; Z79.84 Long term (current) use of oral hypoglycemic drugs; Z91.19 Patient's noncompliance with other medical treatment and regimen; Z91.14 Patient's other noncompliance with medication regimen; Z85.3 Personal history of malignant neoplasm of breast

== ENCOUNTER 2016-07-24 21:15 | Inpatient (IN) | payer MEDICARE, OTHER ==
[2016-07-24] MEDS ORDERED: Albuterol-Ipratrop 3 mg / 0.5 (3 ml) UD IH SCH (22:15)
[2016-07-24] MEDS ORDERED: Albuterol-Ipratrop 3 mg / 0.5 (3 ml) UD IH PRN (23:15)
[2016-07-25] MEDS: Albuterol-Ipratrop 3 mg / 0.5 (3 ml) UD IH SCH ×4 (01:46→20:14)
[2016-07-25] MEDS: Pantoprazole 40 mg EC Tab PO SCH (05:57)
[2016-07-25] MEDS: Insulin Lispro (HUMAlog) HIGH Coverage SC SCH ×4 (06:53→22:01)
[2016-07-25] MEDS: guaiFENesin 600 mg ER Tab PO SCH ×2 (09:40→17:32)
[2016-07-25] MEDS ORDERED: Nystatin 100,000 Units/gm Topical Pow(15 gm) TOP SCH (10:00)
--- NOTE | 2016-07-25 15:12 | HP ---
HISTORY OF PRESENT ILLNESS: The patient is a 71-year-old who was admitted with altered mental status when her daughter found her slumped over in the chair. She was brought to Emergency Room. ABG show ed CO2 retention. She was placed on BiPAP. She was in ICU for 2 days, given nebulizer treatment, IV steroids. Found to have UTI. Has been on IV antibiotics. Doing well. Complained of feeling weak, tired and unstable gait. She had multiple falls at home, so [facility] PAST MEDICAL HISTORY: Significant for: 1. Multiple admissions with COPD exacerbation and CHF exacerbation. 2. Coronary artery disease. 3. Hypertension. 4. Hyperlipidemia. 5. Chronic atrial fibrillation. 6. Qax-kaopyjs-wazjvzezo diabetes. 7. Gastric AVMs, status post multiple endoscopies. 8. Active smoker. 9. Coronary artery disease with complete occlusion of RCA. ALLERGIES: She is not allergic to any medications. MEDICATIONS AT HOME: She is on hydralazine 50 mg twice a day, Coumadin 10 mg daily, valsartan 320 da chris. She is on Spiriva. She is on Janumet and Januvia. She is on Protonix 40 daily. She is on july otine 25 daily, nadolol 10 mg twice a day, Xopenex 1.25 q. 6, isosorbide 60 mg daily, glimepiride 4 m g twice a day, Lasix 40 daily, aspirin 81 daily. SOCIAL HISTORY: She is single, lives by herself. Daughter often visits her on a twice a day basis. She is an active smoker. PHYSICAL EXAMINATION: GENERAL: She is awake and alert, communicative. VITAL SIGNS: She is afebrile, pulse 62, respirations 20, blood pressure 121/61. LUNGS: Bilateral good airflow. A few expiratory occasional rhonchi. HEART: S1, S2 audible. ABDOMEN: Soft, nontender, no rebound, no guarding. NEUROLOGIC: She is awake and alert, communicative. EXTREMITIES: Bilateral legs, +2 edema. ASSESSMENT: 1. Status post carbon dioxide narcosis. 2. Hypertension. 3. Sst-tcmrpnn-zzgmaulbj diabetes. 4. Morbid obesity. 5. Fungal infection in perineal area with erythema. 6. Coronary artery disease. 7. Peptic ulcer disease. PLAN: Will continue patient on nebulizer treatment. Monitor her blood sugars. Started her on oral hypoglycemic and aggressive physical therapy, and order for Mycostatin cream to the perineal area. Edwige Kirby MD cc: 413 TT: 07/25/2016 15:11:23 mn
[2016-07-25] MEDS: Nystatin 100,000 Units/gm Cream(15 gm) TOP SCH (17:32)
[2016-07-25] MEDS ORDERED: Nystatin-Triamcinolone Cream(30 gm) TOP SCH (18:00)
[2016-07-26] MEDS: Albuterol-Ipratrop 3 mg / 0.5 (3 ml) UD IH SCH ×4 (01:14→21:30)
[2016-07-26] MEDS: Pantoprazole 40 mg EC Tab PO SCH (05:48)
[2016-07-26] MEDS: Insulin Lispro (HUMAlog) HIGH Coverage SC SCH ×4 (07:30→22:04)
[2016-07-26] MEDS: Nystatin 100,000 Units/gm Cream(15 gm) TOP SCH ×3 (10:55→17:08)
[2016-07-26] MEDS: guaiFENesin 600 mg ER Tab PO SCH ×2 (10:55→17:03)
--- NOTE | 2016-07-26 12:16 | PN ---
DATE: 07/26/2016 SUBJECTIVE: Lying in bed, denies any shortness of breath, no chest pain. PHYSICAL EXAMINATION: VITAL SIGNS: The patient is afebrile, pulse 62, respirations 20, blood pressure 124/66. LUNGS: Bilateral few expiratory rhonchi, diffusely decreased breath sounds. HEART: S1, S2 audible. ABDOMEN: Soft, nontender, no rebound. Obese. She has perineal area redness, seems to be doing well with Mycostatin cream. EXTREMITIES: Bilateral legs +2 edema. ASSESSMENT: 1. Morbid obesity. 2. Chronic obstructive pulmonary disease exacerbation seems to be improving. 3. Status post CO2 narcosis. 4. Coronary artery disease, status post catheterization 2 years ago showing right coronary artery oc clusion with good collaterals. 5. Bilateral leg edema seems to be improving. 6. Chronic atrial fibrillation. 7. Non-insulin dependent diabetes. PLAN: MAR reviewed, seems to be appropriate. Encourage ambulation, monitor PT/INR in a.m. Edwige Kirby MD cc: [phone] TT: 07/26/2016 12:15:26 Confirmation # [id number] Dictation # [id number] tn
[2016-07-27] MEDS: Albuterol-Ipratrop 3 mg / 0.5 (3 ml) UD IH SCH ×4 (03:10→21:30)
[2016-07-27] MEDS: Pantoprazole 40 mg EC Tab PO SCH (06:14)
[2016-07-27] MEDS: Insulin Lispro (HUMAlog) HIGH Coverage SC SCH ×4 (07:18→21:45)
[2016-07-27 08:17] LABS: INR 2.2 (0.93-1.08)
[2016-07-27] MEDS: guaiFENesin 600 mg ER Tab PO SCH ×2 (09:18→17:49)
[2016-07-27] MEDS: Nystatin 100,000 Units/gm Cream(15 gm) TOP SCH ×3 (09:25→17:55)
--- NOTE | 2016-07-27 15:56 | PN ---
DATE: 07/27/2016 SUBJECTIVE: The patient is 71 years old, seen and examined, doing well, lying in bed, cooperative fo r therapy, eating and tolerating. PHYSICAL EXAMINATION: VITAL SIGNS: She is afebrile, pulse 61, respirations 20, blood pressure . LUNGS: Bilateral fair airflow. Diffusely decreased breath sounds. HEART: S1, S2 audible. ABDOMEN: Soft, obese, nontender, no rebound, no guarding. NEUROLOGIC: She is awake and alert, communicative, able to ambulate with a walker. LABORATORY DATA: PT 23.8, INR 2.20, blood sugar is 139. ASSESSMENT AND PLAN: 1. Morbid obesity. 2. Chronic obstructive pulmonary disease exacerbation. 3. Status post altered mental status secondary to CO2 narcosis. 4. Hyperlipidemia. 5. Coronary artery disease. 6. Peptic ulcer disease. 7. Gastric arteriovenous malformation. 8. Chronic anemia. PLAN: Will continue the patient on current medication. I will order for Venofer in the morning and continue all these current medication. Edwige Kirby MD cc: 413 TT: 07/27/2016 15:56:04 Confirmation # [id number] Dictation # [id number] dn
[2016-07-28] MEDS: Albuterol-Ipratrop 3 mg / 0.5 (3 ml) UD IH SCH ×3 (02:45→20:10)
[2016-07-28] MEDS: Pantoprazole 40 mg EC Tab PO SCH (06:24)
[2016-07-28] MEDS: Insulin Lispro (HUMAlog) HIGH Coverage SC SCH ×4 (06:34→21:44)
[2016-07-28] MEDS: guaiFENesin 600 mg ER Tab PO SCH ×2 (09:25→17:03)
[2016-07-28] MEDS: Nystatin 100,000 Units/gm Cream(15 gm) TOP SCH ×3 (09:25→17:04)
--- NOTE | 2016-07-28 13:04 | PN ---
DATE: 07/28/2016 The patient is a 71-year-old, seen and examined, lying in bed, seems to be comfortable, anxious to go home. No chest pain, no shortness of breath. Her perineal burning has improved significantly. PHYSICAL EXAMINATION: VITAL SIGNS: She is afebrile, pulse 84, respirations 16, blood pressure 102/ . LUNGS: Bilateral fair airflow, no rhonchi or crackle. HEART: S1, S2 audible. ABDOMEN: Soft, nontender, no rebound, no guarding. NEUROLOGIC: The patient is awake and alert, communicative, moves all extremities. EXTREMITIES: Bilateral legs, +1 edema. LABORATORY EXAMINATION: PT 23.8, INR 2.20. ASSESSMENT: 1. Status post chronic obstructive pulmonary disease exacerbation. 2. Status post carbon dioxide narcosis. 3. Congestive heart failure. 4. Morbid obesity. 5. Coronary artery disease, status post right coronary occlusion. 6. Hyperlipidemia. 7. Non-insulin dependent diabetes. 8. Gastropathy. PLAN: We will continue patient on current medication. Encourage ambulation. She is scheduled to be discharged on or Thursday. I will follow up for PT/INR. Edwige Kirby MD cc: [phone] TT: 07/28/2016 13:03:12 Confirmation # [id number] Dictation # [id number] en
[2016-07-29] MEDS: Albuterol-Ipratrop 3 mg / 0.5 (3 ml) UD IH SCH ×5 (02:14→19:29)
[2016-07-29] MEDS: Pantoprazole 40 mg EC Tab PO SCH (06:54)
[2016-07-29] MEDS: Insulin Lispro (HUMAlog) HIGH Coverage SC SCH ×4 (06:54→21:22)
[2016-07-29 07:17] LABS: INR 2.44 (0.93-1.08)
[2016-07-29] MEDS: guaiFENesin 600 mg ER Tab PO SCH ×2 (10:33→17:17)
[2016-07-29] MEDS: Nystatin 100,000 Units/gm Cream(15 gm) TOP SCH ×3 (10:36→17:18)
[2016-07-29] MEDS ORDERED: Iron Sucrose 100 mg/5 ml Inj (RENAL) IVP ONE (12:26)
--- NOTE | 2016-07-29 12:55 | CP.PCM.CON ---
<Kylah Byrd - Last Filed: 07/29/16 12:50> History of Present Illness - History of Present Illness History of Present Illness: 71 year old female with PMHx of DM, COPD, and CFH was seen resting comfortably at bedside regarding bilateral xerosis. Patient states that her left foot is more dry than her right foot. She states that last time she was here, she was given a cream which helped. She admits she has not had her toenails trimmed in a while as she cannot cut them. She denies any n/v/f/c/sob/cp. Past Patient History - Infectious Disease Hx of Infectious Diseases: None - Tetanus Immunizations Tetanus Immunization: Unknown - Past Medical History & Family History Past Medical History?: Yes - Past Social History Smoking Status: Current Some Days Smoker - CARDIAC Hx Cardiac Disorders: Yes (CAD; Chronic Afib) Hx Hypercholesterolemia: Yes Hx Hypertension: Yes - PULMONARY Hx Chronic Obstructive Pulmonary Disease (COPD): Yes - NEUROLOGICAL Hx Neurological Disorder: Yes - HEENT Hx HEENT Problems: No - RENAL Hx Renal Failure: Yes - ENDOCRINE/METABOLIC Hx Diabetes Mellitus Type 2: Yes - HEMATOLOGICAL/ONCOLOGICAL Hx Blood Disorders: Yes (sepsis) Hx Anemia: Yes (iron deficiency) Hx Cancer: Yes (left breast lumpectomy) Hx Chemotherapy: Yes - INTEGUMENTARY Hx Dermatological Problems: Yes Other/Comment: +3 pitting edema ble redness dry skin, toenail was removed to b/ l great toes " yrs ago". small red area to nose - MUSCULOSKELETAL/RHEUMATOLOGICAL Hx Falls: Yes Hx Unsteady Gait: Yes - GASTROINTESTINAL Hx Gastrointestinal Disorders: No - GENITOURINARY/GYNECOLOGICAL Hx Genitourinary Disorders: Yes Hx Incontinence: Yes Hx Reproductive Disorders: No Hx Urinary Tract Infection: Yes - PSYCHIATRIC Hx Anxiety: Yes - SURGICAL HISTORY Hx Cardiac Catheterization: Yes Hx Joint Replacement: Yes (B/L knee replacement.) - ANESTHESIA Hx Anesthesia Reactions: No Hx Malignant Hyperthermia: No Meds Allergies/Adverse Reactions: Allergies Allergy/AdvReac Type Severity Reaction Status Date / Time No Known Allergies Allergy Verified 06/18/16 20:18 - Medications Medications: Current Medications Acetaminophen (Tylenol 325mg Tab) 650 mg PO Q6H PRN; Protocol PRN Reason: Fever >100.4 F Albuterol/Ipratropium (Duoneb 3 Mg/0.5 Mg (3 Ml) Ud) 3 ml IH [id number] WAYNE PRN Reason: Protocol Last Admin: 07/29/16 07:46 Dose: Not Given Albuterol/Ipratropium (Duoneb 3 Mg/0.5 Mg (3 Ml) Ud) 3 ml IH Q2H PRN; Protocol PRN Reason: Shortness of Breath Alprazolam (Xanax) 0.25 mg PO HS WAYNE PRN Reason: Protocol Stop: 07/31/16 22:01 Last Admin: 07/28/16 21:44 Dose: Not Given Aspirin (Ecotrin) 81 mg PO 0800 WAYNE PRN Reason: Protocol Last Admin: 07/29/16 08:30 Dose: 81 mg Furosemide (Lasix) 40 mg PO BID WAYNE PRN Reason: Protocol Last Admin: 07/29/16 10:32 Dose: Not Given Glimepiride (Amaryl) 4 mg PO ACBD WAYNE PRN Reason: Protocol Last Admin: 07/29/16 08:30 Dose: 4 mg Guaifenesin (Mucinex La) 600 mg PO BID WAYNE PRN Reason: Protocol Last Admin: 07/29/16 10:33 Dose: 600 mg Hydralazine HCl (Apresoline) 50 mg PO BID WAYNE PRN Reason: Protocol Last Admin: 07/29/16 10:31 Dose: Not Given Iron Sucrose 100 mg/ Sodium (Chloride) 105 mls @ 210 mls/hr IVPB ONCE ONE Stop: 07/29/16 13:14 Insulin Human Lispro (Humalog High) 0 units SC ACHS WAYNE PRN Reason: Protocol Last Admin: 07/29/16 06:54 Dose: Not Given Isosorbide Mononitrate (Imdur) 60 mg PO 0600 WAYNE PRN Reason: Protocol Last Admin: 07/29/16 06:54 Dose: 60 mg Metformin HCl (Glucophage) 500 mg PO BID WAYNE PRN Reason: Protocol Last Admin: 07/29/16 10:32 Dose: 500 mg Nadolol (Corgard) 10 mg PO BID WAYNE PRN Reason: Protocol Last Admin: 07/29/16 10:31 Dose: Not Given Nicotine (Nicoderm Cq) 1 patch TD DAILY WAYNE PRN Reason: Protocol Last Admin: 07/29/16 10:34 Dose: 1 patch Nystatin (Mycostatin Cream) 0 ea TOP TID WAYNE Last Admin: 07/29/16 10:36 Dose: 1 applic Pantoprazole Sodium (Protonix Ec Tab) 40 mg PO 0630 WAYNE PRN Reason: Protocol Last Admin: 07/29/16 06:54 Dose: 40 mg Sitagliptin Phosphate (Januvia) 50 mg PO DAILY WAYNE PRN Reason: Protocol Last Admin: 07/29/16 10:32 Dose: 50 mg Sodium Chloride ([place]illar Nasal [place]) 0 ml NS BID PRN; Protocol PRN Reason: Nasal congestion Valsartan (Diovan) 320 mg PO DAILY WAYNE PRN Reason: Protocol Last Admin: 07/29/16 10:31 Dose: 320 mg Warfarin Sodium (Coumadin) 5 mg PO 1800 WAYNE PRN Reason: Protocol Last Admin: 07/28/16 17:03 Dose: 5 mg Physical Exam - Constitutional Appears: No Acute Distress, Chronically Ill - Extremities Exam Additional comments: Lower extremity focused exam: VASC: Non-palpable pedal pulses b/l. +1 pitting edema noted to b/l LE. CFT < 4 seconds to all digits. Skin temperature warm to cool from proximal to distal b/ l. DERM: Nails 2-5 b/l are thickened and elongated, no nail noted to digits 1 b/l. No open wound noted, no drainage, no acute clinical signs of infection, no erythema, no hyperkeratotic lesions Mild Xerosis noted to bilateral lower extremities. NEURO: grossly diminished ORTHO: No pain on palpation of distal digits b/l. - Neurological Exam Neurological exam: Alert - Psychiatric Exam Psychiatric exam: Agitated Results - Vital Signs Recent Vital Signs: Last Vital Signs Temp 97.6 F 07/29/16 10:00 Pulse 73 07/29/16 10:31 Resp 18 07/29/16 10:00 BP 99/44 L 07/29/16 10:32 Pulse Ox 96 07/29/16 10:00 - Labs Labs: Laboratory Results - last 24 hr 07/29/16 06:00 PT 26.4 H INR 2.44 H Assessment & Plan - Assessment and Plan (Free Text) Assessment: 71 year old female seen at bedside regarding b/l xerosis and elongated nails 2- 5 b/l. Plan: Patient examined evaluated discussed with Dr. Henriquez Labs and chart reviewed. Lac-hydrin ordered, to be applied to LE daily Nails 2-5 b/l were debrided in thickness and in length without incident Patient is stable from podiatry stand point. Podiatry will continue to follow patient while in house <Deric Henriquez - Last Filed: 08/01/16 11:25> Results - Vital Signs Recent Vital Signs: Last Vital Signs Temp 97.8 F 07/31/16 10:00 Pulse 72 07/31/16 10:04 Resp 16 07/31/16 10:00 BP 120/73 07/31/16 10:08 Pulse Ox 99 07/31/16 10:00 Attending/Attestation - Attestation I have personally seen and examined this patient.: Yes I have fully participated in the care of the patient.: Yes I have reviewed all pertinent clinical information: Yes
--- NOTE | 2016-07-29 13:02 | PN ---
DATE: 07/29/2016 SUBJECTIVE: The patient is a 71-year-old seen and examined, lying in bed, seems to be comfortable, e ating and tolerating. Bilateral leg swelling has significantly improved. No chest pain, no shortnes s of breath. PHYSICAL EXAMINATION: VITAL SIGNS: She is afebrile, pulse 73, respirations 18, blood pressure 99/54. LUNGS: Bilateral fair airflow, no rhonchi or crackle. HEART: S1, S2 audible. No murmur. ABDOMEN: Soft, obese, nontender, no rebound, no guarding. NEUROLOGIC: She is awake and alert, communicative. Moves all extremities. LABORATORY: PT is 26.4, INR 2.44. ASSESSMENT: 1. Status post CO2 narcosis. 2. Chronic obstructive pulmonary disease exacerbation. 3. Hypertension. 4. Coronary artery disease. 5. Congestive heart failure, acute on chronic systolic. 6. Noninsulin dependent diabetes. 7. Pulmonary hypertension. 8. Right RCA occlusion with good collaterals. 9. Chronic gastrointestinal bleed. PLAN: Will order for 1 dose of Venofer today. The patient is scheduled to be discharged on o r Thursday, depending on how she is going to perform in the next day or two. Edwige Kirby MD cc: [phone] TT: 07/29/2016 13:01:41 Confirmation # [id number] Dictation # [id number] bridget
[2016-07-29] MEDS: Ammonium Lactate 12% Lotion (225 g) EXT SCH (14:00)
--- NOTE | 2016-07-29 15:37 | CP.PCM.PN ---
Subjective - Date & Time of Evaluation Date of Evaluation: 07/29/16 Time of Evaluation: 15:36 - Subjective Subjective: pt needs angiocath insertion . Objective - Vital Signs/Intake and Output Vital Signs (last 24 hours): Temp Pulse Resp BP Pulse Ox 97.6 F 73 18 99/44 L 96 07/29/16 10:00 07/29/16 10:31 07/29/16 10:00 07/29/16 10:32 07/29/16 10:00 - Medications Medications: Current Medications Acetaminophen (Tylenol 325mg Tab) 650 mg PO Q6H PRN; Protocol PRN Reason: Fever >100.4 F Albuterol/Ipratropium (Duoneb 3 Mg/0.5 Mg (3 Ml) Ud) 3 ml IH [id number] WAYNE PRN Reason: Protocol Last Admin: 07/29/16 13:35 Dose: Not Given Albuterol/Ipratropium (Duoneb 3 Mg/0.5 Mg (3 Ml) Ud) 3 ml IH Q2H PRN; Protocol PRN Reason: Shortness of Breath Alprazolam (Xanax) 0.25 mg PO HS WAYNE PRN Reason: Protocol Stop: 07/31/16 22:01 Last Admin: 07/28/16 21:44 Dose: Not Given Aspirin (Ecotrin) 81 mg PO 0800 WAYNE PRN Reason: Protocol Last Admin: 07/29/16 08:30 Dose: 81 mg Furosemide (Lasix) 40 mg PO BID WAYNE PRN Reason: Protocol Last Admin: 07/29/16 10:32 Dose: Not Given Glimepiride (Amaryl) 4 mg PO ACBD WAYNE PRN Reason: Protocol Last Admin: 07/29/16 08:30 Dose: 4 mg Guaifenesin (Mucinex La) 600 mg PO BID WAYNE PRN Reason: Protocol Last Admin: 07/29/16 10:33 Dose: 600 mg Hydralazine HCl (Apresoline) 50 mg PO BID WAYNE PRN Reason: Protocol Last Admin: 07/29/16 10:31 Dose: Not Given Insulin Human Lispro (Humalog High) 0 units SC ACHS WAYNE PRN Reason: Protocol Last Admin: 07/29/16 12:50 Dose: 2 units Isosorbide Mononitrate (Imdur) 60 mg PO 0600 WAYNE PRN Reason: Protocol Last Admin: 07/29/16 06:54 Dose: 60 mg Lactic Acid (Lac-Hydrin 12% Lotion (225 G)) 0 gm EXT DAILY [facility] Metformin HCl (Glucophage) 500 mg PO BID WAYNE PRN Reason: Protocol Last Admin: 07/29/16 10:32 Dose: 500 mg Nadolol (Corgard) 10 mg PO BID WAYNE PRN Reason: Protocol Last Admin: 07/29/16 10:31 Dose: Not Given Nicotine (Nicoderm Cq) 1 patch TD DAILY WAYNE PRN Reason: Protocol Last Admin: 07/29/16 10:34 Dose: 1 patch Nystatin (Mycostatin Cream) 0 ea TOP TID WAYNE Last Admin: 07/29/16 10:36 Dose: 1 applic Pantoprazole Sodium (Protonix Ec Tab) 40 mg PO 0630 WAYNE PRN Reason: Protocol Last Admin: 07/29/16 06:54 Dose: 40 mg Sitagliptin Phosphate (Januvia) 50 mg PO DAILY WAYNE PRN Reason: Protocol Last Admin: 07/29/16 10:32 Dose: 50 mg Sodium Chloride ([place]anch Nasal [place]) 0 ml NS BID PRN; Protocol PRN Reason: Nasal congestion Valsartan (Diovan) 320 mg PO DAILY WAYNE PRN Reason: Protocol Last Admin: 07/29/16 10:31 Dose: 320 mg Warfarin Sodium (Coumadin) 5 mg PO 1800 WAYNE PRN Reason: Protocol Last Admin: 07/28/16 17:03 Dose: 5 mg - Labs Labs: PT 26.4 Seconds (9.9-11.8) H 07/29/16 06:00 INR 2.44 (0.93-1.08) H 07/29/16 06:00 Assessment and Plan - Assessment and Plan (Free Text) Assessment: 20 guagr angiocath inserted in left forearm.
[2016-07-30] MEDS: Albuterol-Ipratrop 3 mg / 0.5 (3 ml) UD IH SCH ×4 (03:00→20:51)
[2016-07-30] MEDS: Pantoprazole 40 mg EC Tab PO SCH (06:21)
[2016-07-30] MEDS: Insulin Lispro (HUMAlog) HIGH Coverage SC SCH ×4 (08:04→23:48)
[2016-07-30] MEDS: Ammonium Lactate 12% Lotion (225 g) EXT SCH (09:23)
[2016-07-30] MEDS: Nystatin 100,000 Units/gm Cream(15 gm) TOP SCH ×3 (09:24→17:28)
[2016-07-30] MEDS: guaiFENesin 600 mg ER Tab PO SCH ×2 (09:24→17:28)
[2016-07-30] MEDS ORDERED: Iron Sucrose 100 mg/5 ml Inj (RENAL) IVP ONE (18:43)
--- NOTE | 2016-07-30 19:12 | PN ---
DATE: 07/30/2016 SUBJECTIVE: The patient is a 71-year-old, seen and examined, sitting in chair, seems to be comfortab le. No chest pain, no shortness of breath, bilateral leg swelling has improved. PHYSICAL EXAMINATION: VITAL SIGNS: She is afebrile, pulse 74, respirations 18, blood pressure 100/48. LUNGS: Bilateral fair airflow, no rhonchi or crackle. HEART: S1, S2 audible. No murmur. ABDOMEN: Soft, nontender, no rebound, no guarding, obese, her inguinal fold erythema has significant ly improved. Bilateral leg +1 edema. ASSESSMENT AND PLAN: 1. Status post CO2 narcosis. 2. Chronic obstructive pulmonary disease exacerbation, improved. 3. Hypertension. 4. Hyperlipidemia. 5. Chronic atrial fibrillation. 6. Coronary artery disease. 7. Chronic anemia. PLAN: We will reevaluate the patient in a.m. I will order for to be given in the morning and then she will be discharged later on tomorrow. Edwige Kirby MD cc: [phone] TT: 07/30/2016 19:12:18 Confirmation # [id number] Dictation # [id number] mn
[2016-07-31] MEDS: Albuterol-Ipratrop 3 mg / 0.5 (3 ml) UD IH SCH ×2 (03:00→07:43)
[2016-07-31] MEDS: Pantoprazole 40 mg EC Tab PO SCH (05:58)
[2016-07-31] MEDS: Insulin Lispro (HUMAlog) HIGH Coverage SC SCH (06:43)
[2016-07-31 08:58] LABS: INR 2.56 (0.93-1.08)
[2016-07-31] MEDS: Ammonium Lactate 12% Lotion (225 g) EXT SCH (10:07)
[2016-07-31] MEDS: guaiFENesin 600 mg ER Tab PO SCH (10:09)
[2016-07-31] MEDS: Nystatin 100,000 Units/gm Cream(15 gm) TOP SCH (10:09)
[2016-07-31 10:13] VITALS: BP 120/73; PULSE 72
[2016-07-31 11:58] VITALS: RESP 16; TEMP 97.8; O2SAT 99
--- NOTE | 2016-07-31 13:40 | DS ---
The patient is 71 years old, seen and examined sitting in chair. Seems to be comfortable. No nausea , vomiting. No diarrhea. No fever, no chills. No rectal bleeding. No hemoptysis. No hematemesis. PHYSICAL EXAMINATION: VITAL SIGNS: She is afebrile. Pulse 72, respirations 16, blood pressure 120/73. LUNGS: Bilateral fair airflow, no rhonchi or crackle. HEART: S1, S2 audible. ABDOMEN: Soft, obese, nontender, no rebound, no guarding. EXTREMITIES: Bilateral leg, no erythema. No swelling. LABORATORY EXAM: PT 27.7, INR 2.56. Chemistry: Blood sugar is 260. ASSESSMENT AND PLAN: 1. Status post CO2 narcosis. 2. Hypertension. 3. Coronary artery disease. 4. Noninsulin dependent diabetes. 5. Hyperlipidemia. 6. Gastric arteriovenous malformations. 7. Chronic anemia. 8. Atrial fibrillation. PLAN: We will continue patient on current medication. She is off of steroids. She is ambulating wi th a walker with minimal shortness of breath. She will resume her medication as prior to admission. I will follow up in office in a week to check her PT/INR. Edwige Kirby MD cc: [phone] TT: 07/31/2016 13:39:35 sn
== END 2016-07-31 13:05 | disposition home or self-care (01) | DRG 945 ==
LOC: TRCU 21:15
PROVIDERS: ADMIT Internal Medicine; ATTEND Internal Medicine
PROC: F07Z9FZ Gait Training/Functional Ambulation Treatment using Assistive, Adaptive, Supportive or Protective Equipment (ICD-10-PCS; principal; 2016-07-25)
PROC: 3E0F7GC Introduction of Other Therapeutic Substance into Respiratory Tract, Via Natural or Artificial Opening (ICD-10-PCS; 2016-07-25)
PROC: F08Z4FZ Home Management Treatment using Assistive, Adaptive, Supportive or Protective Equipment (ICD-10-PCS; 2016-07-28)
PROC: 0HBRXZZ Excision of Toe Nail, External Approach (ICD-10-PCS; 2016-07-29)
PROC: 0HBRXZZ Excision of Toe Nail, External Approach (ICD-10-PCS; 2016-07-29)
PROC: 0HBRXZZ Excision of Toe Nail, External Approach (ICD-10-PCS; 2016-07-29)
PROC: 0HBRXZZ Excision of Toe Nail, External Approach (ICD-10-PCS; 2016-07-29)
PROC: 0HBRXZZ Excision of Toe Nail, External Approach (ICD-10-PCS; 2016-07-29)
PROC: 0HBRXZZ Excision of Toe Nail, External Approach (ICD-10-PCS; 2016-07-29)
PROC: 0HBRXZZ Excision of Toe Nail, External Approach (ICD-10-PCS; 2016-07-29)
PROC: 0HBRXZZ Excision of Toe Nail, External Approach (ICD-10-PCS; 2016-07-29)
DX: R53.1 Weakness (principal); R26.81 Unsteadiness on feet; J44.1 Chronic obstructive pulmonary disease with (acute) exacerbation; I27.2 Other secondary pulmonary hypertension; I11.0 Hypertensive heart disease with heart failure; I50.22 Chronic systolic (congestive) heart failure; Z68.41 Body mass index [BMI] 40.0-44.9, adult; I48.2 Chronic atrial fibrillation; E11.9 Type 2 diabetes mellitus without complications; K27.9 Peptic ulcer, site unspecified, unspecified as acute or chronic, without hemorrhage or perforation; D64.9 Anemia, unspecified; I25.10 Atherosclerotic heart disease of native coronary artery without angina pectoris; R29.6 Repeated falls; E66.01 Morbid (severe) obesity due to excess calories; F17.210 Nicotine dependence, cigarettes, uncomplicated; L85.3 Xerosis cutis; E78.5 Hyperlipidemia, unspecified; K31.819 Angiodysplasia of stomach and duodenum without bleeding; Z79.84 Long term (current) use of oral hypoglycemic drugs; Z79.01 Long term (current) use of anticoagulants

== ENCOUNTER 2016-08-07 18:20 | Inpatient (IN) | payer MEDICARE, OTHER ==
[2016-08-07 22:39] LABS: ALB/GLOB RATIO 1.5 (1.1-1.8); BILIRUBIN,TOTAL 0.8 mg/dL (0.2-1.3); CALCIUM 9.1 mg/dL (8.4-10.5); POTASSIUM 4.2 mmol/L (3.6-5.0); TOTAL PROTEIN 6.8 g/dL (5.8-8.3)
[2016-08-08 00:36] LABS: HEMATOCRIT 21.3 % (36.0-48.0); MEAN CELL VOLUME 93.4 fL (80.0-105.0); MEAN CORPUSCULAR HEMOGLOBIN 27.2 pg (25.0-35.0); MEAN CORPUSCULAR HGB CONC 29.1 g/dl (31.0-37.0); MEAN PLATELET VOLUME 10.4 fl (7.0-11.0); WHITE BLOOD COUNT 7.7 10^3/ul (4.5-11.0)
--- NOTE | 2016-08-08 01:46 | CP.PCM.PN ---
Subjective - Date & Time of Evaluation Date of Evaluation: 08/08/16 Time of Evaluation: 01:41 - Subjective Subjective: S: It was requested to get a consent for blood transfusion. Patient has no acute symptoms now. Denies CP, SOB. Has had blood transfusion in the past. She has no questions to ask me about blood transfusion. Pertinent medical record was reviewed. O:112/55,98*F 72 18 pulse ox 98 %. Awake, alert, not in distress. LUNGS:Normal breathing pattern. NEURO:Speech nomal. SKIN:Pale. A:Anemia. Informed consent. P:A consent for blood transfusion was obtained in presence of nurse Lv Mireles. Objective - Medications Medications: Current Medications Acetaminophen (Tylenol 325mg Tab) 650 mg PO Q4H PRN PRN Reason: Pain, moderate (4-7) Zolpidem Tartrate (Ambien) 5 mg PO HS PRN; Protocol PRN Reason: Insomnia Last Admin: 08/08/16 01:16 Dose: 5 mg - Labs Labs: 08/07/16 20:19 08/07/16 20:19
[2016-08-08 02:41] VITALS: BMI 39.9
[2016-08-08 07:42] LABS: MEAN CELL VOLUME 91.3 fL (80.0-105.0); MEAN CORPUSCULAR HEMOGLOBIN 28.1 pg (25.0-35.0); MEAN CORPUSCULAR HGB CONC 30.7 g/dl (31.0-37.0); RED CELL DISTRIBUTION WIDTH 20.1 % (11.5-14.5); WHITE BLOOD COUNT 5.9 10^3/ul (4.5-11.0)
[2016-08-08 08:18] LABS: ALB/GLOB RATIO 1.4 (1.1-1.8); BILIRUBIN,TOTAL 1.1 mg/dL (0.2-1.3); TOTAL PROTEIN 6.3 g/dL (5.8-8.3)
[2016-08-08 08:26] LABS: HEMATOCRIT 23.1 % (36.0-48.0)
[2016-08-08] MEDS: Pantoprazole 40 mg EC Tab PO SCH (10:57)
[2016-08-08] MEDS: Tiotropium 18 mcg Cap For Inhalation IH SCH (10:58)
--- NOTE | 2016-08-08 15:32 | CP.PCM.CON ---
<Leonides Pete - Last Filed: 08/08/16 15:49> History of Present Illness - History of Present Illness History of Present Illness: GI Consult for Dr. Hamilton 71 year old female with PMHx of GI bleed, Duodenal telangiectasia, diverticulosis, rectosigmoid ulcer and polyps, Abif on coumadin, DM, COPD, and CHF came with weakness. Pt was found to have hg level of 6.8 and 2PRBC was given. Pt was admitted many time for same reason. Pt is known to Dr. Hamilton. She denies recent hematemesis, hematochezia, melena, n/v/f/c/sob/cp/diarrhea. c-scope 06/2015 Diverticulosis, Rectosigmoid ulcer. Polyps (tubular adenoma) j EGD 04/2016 Duodenal telangiectasia Review of Systems - Review of Systems Review of Systems: See HPI Past Patient History - Infectious Disease Hx of Infectious Diseases: None - Tetanus Immunizations Tetanus Immunization: Unknown - Past Medical History & Family History Past Medical History?: Yes - Past Social History Smoking Status: Current Some Days Smoker - CARDIAC Hx Cardiac Disorders: Yes Hx Cardia Arrhythmia: Yes Hx Circulatory Problems: Yes Hx Congestive Heart Failure: Yes Hx Hypercholesterolemia: Yes Hx Hypertension: Yes Hx Peripheral Edema: Yes - PULMONARY Hx Chronic Obstructive Pulmonary Disease (COPD): Yes Hx Pneumonia: Yes Hx Respiratory Tract Infection: Yes Hx Sleep Apnea: Yes - NEUROLOGICAL Hx Neurological Disorder: Yes Hx Seizures: Yes - HEENT Hx HEENT Problems: No - RENAL Hx Chronic Kidney Disease: Yes Hx Renal Failure: Yes - ENDOCRINE/METABOLIC Hx Endocrine Disorders: Yes Hx Diabetes Mellitus Type 1: Yes Hx Diabetes Mellitus Type 2: Yes Hx Hypothyroidism: Yes - HEMATOLOGICAL/ONCOLOGICAL Hx Blood Disorders: Yes (sepsis) Hx Anemia: Yes (iron deficiency) Hx Cancer: Yes (left breast lumpectomy) Hx Chemotherapy: Yes - INTEGUMENTARY Hx Dermatological Problems: No - MUSCULOSKELETAL/RHEUMATOLOGICAL Hx Musculoskeletal Disorders: Yes Hx Arthritis: Yes Hx Back Pain: Yes Hx Degenerative Joint Disease: Yes (Bilateral knee replacement) Hx Falls: Yes Hx Unsteady Gait: Yes - GASTROINTESTINAL Hx Gastrointestinal Disorders: Yes Hx Gastroesophageal Reflux: Yes - GENITOURINARY/GYNECOLOGICAL Hx Genitourinary Disorders: Yes Hx Incontinence: Yes Hx Urinary Tract Infection: Yes - PSYCHIATRIC Hx Psychophysiologic Disorder: Yes Hx Anxiety: Yes - SURGICAL HISTORY Hx Surgeries: Yes Hx Cardiac Catheterization: Yes Hx Joint Replacement: Yes Hx Orthopedic Surgery: Yes - ANESTHESIA Hx Anesthesia Reactions: No Hx Malignant Hyperthermia: No Meds Allergies/Adverse Reactions: Allergies Allergy/AdvReac Type Severity Reaction Status Date / Time No Known Allergies Allergy Verified 06/18/16 20:18 - Medications Medications: Current Medications Acetaminophen (Tylenol 325mg Tab) 650 mg PO Q4H PRN PRN Reason: Pain, moderate (4-7) Last Admin: 08/08/16 10:58 Dose: 650 mg Glimepiride (Amaryl) 4 mg PO ACBD [facility] Hydralazine HCl (Apresoline) 50 mg PO BID [facility] Last Admin: 08/08/16 10:57 Dose: 50 mg Isosorbide Mononitrate (Imdur) 60 mg PO DAILY [facility] Last Admin: 08/08/16 10:58 Dose: 60 mg Nadolol (Corgard) 10 mg PO BID [facility] Pantoprazole Sodium (Protonix Ec Tab) 40 mg PO DAILY [facility] Last Admin: 08/08/16 10:57 Dose: 40 mg Tiotropium [place] (Spiriva) 18 mcg IH DAILY [facility] Last Admin: 08/08/16 10:58 Dose: 18 mcg Zolpidem Tartrate (Ambien) 5 mg PO HS PRN; Protocol PRN Reason: Insomnia Last Admin: 08/08/16 01:16 Dose: 5 mg Physical Exam - Constitutional Appears: Non-toxic, No Acute Distress - Head Exam Head Exam: ATRAUMATIC, NORMAL INSPECTION, NORMOCEPHALIC - Eye Exam Eye Exam: EOMI, Normal appearance, PERRL Pupil Exam: NORMAL ACCOMODATION, PERRL - ENT Exam ENT Exam: Mucous Membranes Moist, Normal Exam - Neck Exam Neck exam: Positive for: Normal Inspection - Respiratory Exam Respiratory Exam: Clear to Auscultation Bilateral, NORMAL BREATHING PATTERN - Cardiovascular Exam Cardiovascular Exam: REGULAR RHYTHM - GI/Abdominal Exam GI & Abdominal Exam: Normal Bowel Sounds, Soft. absent: Distended, Firm, Guarding, Hernia, Rigid, Tenderness - Extremities Exam Extremities exam: Positive for: normal inspection - Neurological Exam Neurological exam: Alert, CN II-XII Intact, Normal Gait, Oriented x3, Reflexes Normal - Psychiatric Exam Psychiatric exam: Normal Affect, Normal Mood - Skin Skin Exam: Dry, Intact, Normal Color, Warm Results - Vital Signs Recent Vital Signs: Last Vital Signs Temp 98.4 F 08/08/16 14:25 Pulse 78 08/08/16 14:25 Resp 18 08/08/16 14:25 BP 107/58 L 08/08/16 14:25 Pulse Ox 95 08/08/16 07:30 - Labs Result Diagrams: 08/08/16 07:30 08/08/16 07:30 Labs: Laboratory Results - last 24 hr 08/08/16 08/08/16 08/08/16 01:15 07:30 07:30 WBC 5.9 D RBC 2.53 L Hgb 7.1 L Hct 23.1 L MCV 91.3 MCH 28.1 MCHC 30.7 L RDW 20.1 H Plt Count 235 MPV 10.0 Sodium 140 Potassium 4.0 Chloride 100 Carbon Dioxide 30 Anion Gap 14 BUN 59 H Creatinine 1.2 Est GFR ( Amer) 54 Est GFR (Non-Af Amer) 45 Random Glucose 123 H Calcium 9.0 Total Bilirubin 1.1 AST 15 ALT 26 Alkaline Phosphatase 52 Total Protein 6.3 Albumin 3.7 Globulin 2.6 Albumin/Globulin Ratio 1.4 Blood Type AB NEGATIVE Antibody Screen Negative Crossmatch See Detail BBK History Checked Patient has bt Assessment & Plan - Assessment and Plan (Free Text) Assessment: Anemia Past EGD and colonoscopy, 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 Chronic A. fib Hypertension Coronary artery disease stable PLAN: Continue to monitor H&H Hold Coumadin Patient was seen and examined with Dr. Hamilton. <Rahel Hamilton V - Last Filed: 08/09/16 01:22> Meds - Medications Medications: Current Medications Acetaminophen (Tylenol 325mg Tab) 650 mg PO Q4H PRN PRN Reason: Pain, moderate (4-7) Last Admin: 08/08/16 10:58 Dose: 650 mg Glimepiride (Amaryl) 4 mg PO ACBD [facility] Last Admin: 08/08/16 17:39 Dose: 4 mg Hydralazine HCl (Apresoline) 50 mg PO BID [facility] Last Admin: 08/08/16 18:46 Dose: 50 mg Isosorbide Mononitrate (Imdur) 60 mg PO DAILY [facility] Last Admin: 08/08/16 10:58 Dose: 60 mg Nadolol (Corgard) 10 mg PO BID [facility] Last Admin: 08/08/16 17:39 Dose: 10 mg Pantoprazole Sodium (Protonix Ec Tab) 40 mg PO DAILY [facility] Last Admin: 08/08/16 10:57 Dose: 40 mg Tiotropium [place] (Spiriva) 18 mcg IH DAILY [facility] Last Admin: 08/08/16 10:58 Dose: 18 mcg Zolpidem Tartrate (Ambien) 5 mg PO HS PRN; Protocol PRN Reason: Insomnia Last Admin: 08/08/16 23:36 Dose: 5 mg Results - Vital Signs Recent Vital Signs: Last Vital Signs Temp 98 F 08/08/16 16:00 Pulse 10 L 08/08/16 17:39 Resp 18 08/08/16 16:00 BP 132/52 L 08/08/16 16:00 Pulse Ox 93 L 08/08/16 16:00 - Labs Result Diagrams: 08/08/16 07:30 08/08/16 07:30 Labs: Laboratory Results - last 24 hr 08/08/16 08/08/16 08/08/16 01:15 07:30 07:30 WBC 5.9 D RBC 2.53 L Hgb 7.1 L Hct 23.1 L MCV 91.3 MCH 28.1 MCHC 30.7 L RDW 20.1 H Plt Count 235 MPV 10.0 Sodium 140 Potassium 4.0 Chloride 100 Carbon Dioxide 30 Anion Gap 14 BUN 59 H Creatinine 1.2 Est GFR ( Amer) 54 Est GFR (Non-Af Amer) 45 Random Glucose 123 H Calcium 9.0 Total Bilirubin 1.1 AST 15 ALT 26 Alkaline Phosphatase 52 Total Protein 6.3 Albumin 3.7 Globulin 2.6 Albumin/Globulin Ratio 1.4 Blood Type AB NEGATIVE Antibody Screen Negative Crossmatch See Detail BBK History Checked Patient has bt Assessment & Plan - Assessment and Plan (Free Text) Assessment: This patient was seen and evaluated earlier. This is an addendum to consult report done by . Previous workup reviewed. Will dw Dr Kirby prior to cosiderig repeat endoscopic evaluation.Elevated INR,receiving PRBBC - Date & Time Date: 08/08/16 Time: 04:30
--- NOTE | 2016-08-08 20:51 | PN ---
DATE: 08/08/2016 SUBJECTIVE: The patient has no complaints of any chest pain or shortness of breath. PHYSICAL EXAMINATION: VITAL SIGNS: Temperature 98, pulse of 80, blood pressure 132/52. GENERAL: The patient comfortable, in no acute distress. HEENT: Anicteric sclerae. Moist mucosa. NECK: No JVD or adenopathy. CARDIAC: S1/S2. No murmurs. No rubs. Regular. RESPIRATORY: Clear to auscultation bilaterally. No wheezes, rales, or rhonchi. Good air entry. ABDOMEN: Bowel sounds are positive, soft, nontender, and nondistended. EXTREMITIES: No edema. Has 1+ pulses. LABORATORY DATA: White count of 5.9, hemoglobin 7.1, creatinine is 1.2. ASSESSMENT: 1. Acute anemia. 2. Diverticulosis. 3. Atrial fibrillation, on Coumadin, now on hold. 4. Coronary artery disease. 5. Hypertension. 6. Dyslipidemia. 7. Diabetes type 2. 8. Obese with a body mass index of 39. PLAN: The patient is currently on Amaryl for his diabetes. He is on hydralazine. The patient is go ing to be on Ambien for sleep. He is going to continue with Spiriva. The patient is on Tylenol as n eeded. Da Wooten MD cc: [phone] TT: 08/08/2016 20:51:14 Confirmation # [id number] Dictation # [id number]
--- NOTE | 2016-08-09 03:17 | CON ---
DATE: 08/08/2016 REASON FOR CONSULTATION AND FOLLOWUP: Shortness of breath, anemia, atrial fibrillation, coronary art dhaval disease. BRIEF CLINICAL HISTORY: This is a 71-year-old morbidly obese female with multiple admissions with CH F, COPD exacerbation, active tobacco abuse, who came in with complaints of feeling very weak, letharg ic, found to be severely anemic. Has a history of diabetes, hypertension, hyperlipidemia, chronic at rial fibrillation, status post failed DARIUS cardioversion, history of cardiac catheterization, 1-vessel , RCA, moderate aortic stenosis, who came in feeling very weak and lethargic. Admitting hemoglobin f ound to be 6.2. Denies any chest pain and denies any palpitation. PAST MEDICAL HISTORY: Significant for morbid obesity, congestive heart failure, aortic stenosis, lamin betes, hypertension, hyperlipidemia, chronic atrial fibrillation, status post DARIUS cardioversion, 1-ve ssel CAD, totally occluded RCA, well-collateralized. Cardiac catheterization 2-1/2 years ago. Chron ic atrial fibrillation, hypertension, hyperlipidemia, pulmonary hypertension, history of multiple gas trointestinal bleeds in the past. PREVIOUS CARDIAC WORKUP: History of cardiac catheterization 2-1/2 years ago,1-vessel CAD, RCA totall y occluded, very well-collateralized LAD. Most recently, the patient has a transesophageal echo to harsha altman dated 04/07/2016 that shows ejection fraction of 65%, chronic atrial fibrillation , trace aortic regurgitation, moderate valvular aortic stenosis, valve area 1 cm2 by planimetry and c ontinuity equation. Peak gradient across the aortic valve was 21 mmHg, mitral regurgitation moderate -to-severe, mild tricuspid regurgitation and moderate plaque in descending aorta. Velocity left ____ _ 0.4 meter per second squared. No vegetation noted at that time dated 03/28/2016. SOCIAL HISTORY: Active tobacco abuse. Denies any history of alcohol abuse. ALLERGIES: No known drug allergy. CURRENT MEDICATIONS: The patient is taking OxyContin, hydralazine, warfarin, losartan, Spiriva, pota ssium chloride, , Cozaar, isosorbide mononitrate, glyburide, Amaryl, Lasix and albuterol inhaler . REVIEW OF SYSTEMS: As per HPI. PHYSICAL EXAMINATION: VITAL SIGNS: Temperature afebrile, heart rate 80, blood pressure 130/52. HEENT: PERRLA. Extraocular muscles intact. NECK: Supple. No carotid bruits. No thyromegaly. CHEST: Clear to auscultation. HEART: S1, S2 regular. ABDOMEN: Soft. EXTREMITIES: Clubbing and cyanosis negative. LABORATORY DATA: Blood workup as follows: WBC , hemoglobin 7.1, hematocrit 23.1, platelet coun t 235. Chemistry shows sodium 140, potassium 4.1, chloride 100, carbon dioxide 30, anion gap of 14, BUN of 15, creatinine 1.2. IMPRESSION: Gastrointestinal bleed, anemia, coronary artery, 1-vessel coronary artery disease, faile d DARIUS cardioversion, moderate aortic stenosis, morbid obesity, chronic obstructive pulmonary disease. RECOMMENDATION: Transfuse blood , keep hemoglobin 10. If the patient needs endoscopy and colon oscopy, the patient is okay to go. No absolute contraindication. He is cleared from a cardiac point of view to go for endoscopy and colonoscopy. Will follow with you. The patient was on Coumadin for atrial fibrillation. INR was therapeutic in the past. Will repeat blood workup in the morning. Thank you, , for providing the opportunity in taking care of this patient. Brianna Sandra MD cc: [id number] TT: 08/08/2016 22:13:36 Confirmation # [id number] Dictation # [id number] denise
[2016-08-09 07:28] LABS: ADD MANUAL DIFF? NO
[2016-08-09 07:33] LABS: BASO # 0.01 K/mm3 (0.0-2.0); BASO % 0.2 % (0.0-3.0); EOS # 0.2 (0.0-0.7); EOS % 3.7 % (1.5-5.0); GRAN # 3.38 (1.4-6.5); GRAN % 69.1 % (50.0-68.0); LYMPH # 0.9 (1.2-3.4); LYMPH % 18.8 % (22.0-35.0); MEAN CELL VOLUME 89.1 fL (80.0-105.0); MEAN CORPUSCULAR HEMOGLOBIN 27.7 pg (25.0-35.0); MEAN CORPUSCULAR HGB CONC 31.1 g/dl (31.0-37.0); MEAN PLATELET VOLUME 9.6 fl (7.0-11.0); MONO # 0.4 (0.1-0.6); MONO % 8.2 % (1.0-6.0); PLATELET COUNT 206 10^3/uL (120.0-450.0); RED CELL DISTRIBUTION WIDTH 19.9 % (11.5-14.5); WHITE BLOOD COUNT 4.9 10^3/ul (4.5-11.0)
[2016-08-09 07:49] LABS: ALB/GLOB RATIO 1.5 (1.1-1.8); BILIRUBIN,TOTAL 0.8 mg/dL (0.2-1.3); MAGNESIUM 2.1 mg/dL (1.7-2.2); PHOSPHOROUS 4.4 mg/dL (2.5-4.5); POTASSIUM 3.5 mmol/L (3.6-5.0); TOTAL PROTEIN 5.7 g/dL (5.8-8.3)
[2016-08-09 08:12] LABS: INR 3.81 (0.93-1.08)
[2016-08-09 08:18] LABS: HEMATOCRIT 22.8 % (36.0-48.0)
[2016-08-09] MEDS: Pantoprazole 40 mg EC Tab PO SCH (10:57)
[2016-08-09] MEDS: Tiotropium 18 mcg Cap For Inhalation IH SCH (12:13)
[2016-08-09 16:54] VITALS: O2SAT 95
[2016-08-09] MEDS ORDERED: Nystatin 100,000 Units/gm Topical Pow(15 gm) TOP PRN (17:12)
--- NOTE | 2016-08-09 17:20 | CP.PCM.PN ---
<Juan RLeonides - Last Filed: 08/09/16 17:15> Subjective - Date & Time of Evaluation Date of Evaluation: 08/09/16 Time of Evaluation: 17:16 - Subjective Subjective: GI for Dr. Hamilton Pt s&e. Pt still feel weak. Tolerating PO. Hgb still low at 7.1 after transfusion. INR 3.8 this AM. Pt getting more transfusion today. Per nurse, she is having melena. Objective - Vital Signs/Intake and Output Vital Signs (last 24 hours): Temp Pulse Resp BP Pulse Ox 98.5 F 67 14 113/52 L 95 08/09/16 16:08 08/09/16 16:08 08/09/16 16:08 08/09/16 16:08 08/09/16 14:00 Intake and Output: 08/09/16 08/09/16 06:59 18:59 Intake Total 600 605 Output Total 420 Balance 600 185 - Medications Medications: Current Medications Acetaminophen (Tylenol 325mg Tab) 650 mg PO Q4H PRN PRN Reason: Pain, moderate (4-7) Last Admin: 08/08/16 10:58 Dose: 650 mg Glimepiride (Amaryl) 4 mg PO ACBD [facility] Last Admin: 08/09/16 10:49 Dose: 4 mg Hydralazine HCl (Apresoline) 50 mg PO BID [facility] Last Admin: 08/09/16 10:59 Dose: 50 mg Isosorbide Mononitrate (Imdur) 60 mg PO DAILY [facility] Last Admin: 08/09/16 10:49 Dose: 60 mg Nadolol (Corgard) 10 mg PO BID [facility] Last Admin: 08/09/16 10:49 Dose: 10 mg Nystatin (Nystop Topical Powder) 0 gm TOP DAILY PRN PRN Reason: Rash Pantoprazole Sodium (Protonix Ec Tab) 40 mg PO DAILY [facility] Last Admin: 08/09/16 10:57 Dose: 40 mg Tiotropium [place] (Spiriva) 18 mcg IH DAILY [facility] Last Admin: 08/09/16 12:13 Dose: 18 mcg Zolpidem Tartrate (Ambien) 5 mg PO HS PRN; Protocol PRN Reason: Insomnia Last Admin: 08/08/16 23:36 Dose: 5 mg - Labs Labs: 08/09/16 07:25 08/09/16 07:25 PT 41.2 Seconds (9.9-11.8) H* 08/09/16 07:25 INR 3.81 (0.93-1.08) H* 08/09/16 07:25 - Constitutional Appears: Non-toxic, Chronically Ill - Head Exam Head Exam: ATRAUMATIC, NORMAL INSPECTION, NORMOCEPHALIC - Eye Exam Eye Exam: EOMI, Normal appearance, PERRL Pupil Exam: NORMAL ACCOMODATION, PERRL - ENT Exam ENT Exam: Mucous Membranes Moist, Normal Exam - Neck Exam Neck Exam: Full ROM, Normal Inspection. absent: Lymphadenopathy - Respiratory Exam Respiratory Exam: Clear to Ausculation Bilateral, NORMAL BREATHING PATTERN - Cardiovascular Exam Cardiovascular Exam: REGULAR RHYTHM, +S1, +S2. absent: Murmur - GI/Abdominal Exam GI & Abdominal Exam: Soft, Normal Bowel Sounds. 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 Chronic A. fib Hypertension Coronary artery disease stable PLAN: Continue to monitor H&H and INR: hgb 7.1 and INR 3.8 Hold Coumadin for now Possible repeat endoscopy when INR normalize. Patient was seen and examined with Dr. Hamilton. <Rahel Hamilton V - Last Filed: 10/01/16 14:02> Objective - Vital Signs/Intake and Output Vital Signs (last 24 hours): Temp Pulse Resp BP Pulse Ox 97.7 F 92 H 22 136/70 95 08/11/16 07:25 08/11/16 07:25 08/11/16 07:25 08/11/16 10:39 08/11/16 07:25 - Labs Labs: 08/11/16 06:30 08/11/16 06:30 PT 17.1 Seconds (9.9-11.8) H 08/11/16 06:30 INR 1.58 (0.93-1.08) H 08/11/16 06:30 - GI/Abdominal Exam GI & Abdominal Exam: Soft, Normal Bowel Sounds. absent: Guarding, Tenderness, Organomegaly, Rebound Assessment and Plan - Assessment and Plan (Free Text) Assessment: This is an addendum note for the consult done by Dr. Pete, patient was seen and examined, chart reviewed by me and agree to the assessment and treatment plan of this patient.
--- NOTE | 2016-08-09 17:24 | CP.PCM.PN ---
Subjective - Date & Time of Evaluation Date of Evaluation: 08/09/16 Time of Evaluation: 14:00 - Subjective Subjective: Pt has very poor veins,needs iv access Objective - Vital Signs/Intake and Output Vital Signs (last 24 hours): Temp Pulse Resp BP Pulse Ox 98.5 F 67 14 113/52 L 95 08/09/16 16:08 08/09/16 16:08 08/09/16 16:08 08/09/16 16:08 08/09/16 14:00 Intake and Output: 08/09/16 08/09/16 06:59 18:59 Intake Total 600 605 Output Total 420 Balance 600 185 - Medications Medications: Current Medications Acetaminophen (Tylenol 325mg Tab) 650 mg PO Q4H PRN PRN Reason: Pain, moderate (4-7) Last Admin: 08/08/16 10:58 Dose: 650 mg Glimepiride (Amaryl) 4 mg PO ACBD [facility] Last Admin: 08/09/16 10:49 Dose: 4 mg Hydralazine HCl (Apresoline) 50 mg PO BID [facility] Last Admin: 08/09/16 10:59 Dose: 50 mg Isosorbide Mononitrate (Imdur) 60 mg PO DAILY [facility] Last Admin: 08/09/16 10:49 Dose: 60 mg Nadolol (Corgard) 10 mg PO BID [facility] Last Admin: 08/09/16 10:49 Dose: 10 mg Nystatin (Nystop Topical Powder) 0 gm TOP DAILY PRN PRN Reason: Rash Pantoprazole Sodium (Protonix Ec Tab) 40 mg PO DAILY [facility] Last Admin: 08/09/16 10:57 Dose: 40 mg Tiotropium [place] (Spiriva) 18 mcg IH DAILY [facility] Last Admin: 08/09/16 12:13 Dose: 18 mcg Zolpidem Tartrate (Ambien) 5 mg PO HS PRN; Protocol PRN Reason: Insomnia Last Admin: 08/08/16 23:36 Dose: 5 mg - Labs Labs: 08/09/16 07:25 08/09/16 07:25 PT 41.2 Seconds (9.9-11.8) H* 08/09/16 07:25 INR 3.81 (0.93-1.08) H* 08/09/16 07:25 - Constitutional Appears: No Acute Distress Assessment and Plan - Assessment and Plan (Free Text) Assessment: Poor venous access. Plan: Unable to insert heplock due to very poor veins. To be tried again later.
--- NOTE | 2016-08-09 19:30 | PN ---
DATE: 08/09/2016 SUBJECTIVE: The patient is 71 years old, known to me from multiple previous admissions. The patient was seen in the office 3 days ago when her daughter that she is very sleepy and barely arousab le; I checked her out. She looked anemic. I bishop blood work in the office. Her hemoglobin was 6.3, so I directed her daughter to bring her to the Emergency Room for blood transfusion. The patient re ceived 2 blood transfusions and her hemoglobin is still low and she will be receiving 2 more units of packed RBCs. PHYSICAL EXAMINATION: GENERAL: She is awake and alert, sleepy, but arousable. VITAL SIGNS: She is afebrile, pulse 67, respirations 14, blood pressure 130/52. LUNGS: Bilateral fair airflow, a few soft crackles that improve after coughing. HEART: S1, S2 audible. Irregular, rate controlled. ABDOMEN: Soft, very obese, nontender, no rebound, no guarding. NEUROLOGIC: She is awake and alert, answers appropriately. EXTREMITIES: Bilateral leg +2 edema. LABORATORY EXAMINATION: WBC is 4.9, hemoglobin 7.1, hematocrit 22.8, platelet of 206. PT is 41.2, I NR 3.81. Chemistry: Sodium 137, potassium 3.5, chloride 100, CO2 of 32, BUN 54, creatinine 1.1, blo od sugar of 51. ASSESSMENT AND PLAN: 1. Iron deficiency anemia versus blood loss anemia. The patient has cardiac cirrhosis and congestiv e gastropathy. She is has arteriovenous malformations on her upper GI system and probably she had a constant slow bleed. She has been given IV Venofer by Dr. Oneill intermittently. 2. Coronary artery disease, status post cardiac catheterization showing complete occlusion of right coronary artery. 3. Chronic atrial fibrillation. 4. Non-insulin dependent diabetes. 5. Deconditioning and difficulty walking. 6. Peptic ulcer disease. PLAN: At this point, her Coumadin is on hold. Will transfuse 2 packed RBCs Lasix and will fol low up CBC and CMP in a.m. Discussed with Dr. Hamilton. Since the patient's INR is very high, is no t feasible to do either endoscopy or colonoscopy. After giving 2 blood transfusions, will follow up her PT/INR and follow up her H and H. For now Coumadin is on hold until her INR is 2 and below. Edwige Kirby MD cc: [phone] TT: 08/09/2016 19:29:46 Confirmation # [id number] Dictation # [id number] dn
[2016-08-10 07:23] LABS: ADD MANUAL DIFF? NO
[2016-08-10 07:35] LABS: BASO # 0.01 K/mm3 (0.0-2.0); BASO % 0.2 % (0.0-3.0); EOS # 0.1 (0.0-0.7); EOS % 2.7 % (1.5-5.0); GRAN # 3.72 (1.4-6.5); GRAN % 71.4 % (50.0-68.0); HEMATOCRIT 27.9 % (36.0-48.0); LYMPH # 0.8 (1.2-3.4); LYMPH % 16.1 % (22.0-35.0); MEAN CELL VOLUME 89.1 fL (80.0-105.0); MEAN CORPUSCULAR HEMOGLOBIN 28.1 pg (25.0-35.0); MEAN CORPUSCULAR HGB CONC 31.5 g/dl (31.0-37.0); MEAN PLATELET VOLUME 9.7 fl (7.0-11.0); MONO # 0.5 (0.1-0.6); MONO % 9.6 % (1.0-6.0); PLATELET COUNT 192 10^3/uL (120.0-450.0); RED CELL DISTRIBUTION WIDTH 19.2 % (11.5-14.5); WHITE BLOOD COUNT 5.2 10^3/ul (4.5-11.0)
[2016-08-10 07:40] LABS: ALB/GLOB RATIO 1.5 (1.1-1.8); ALKALINE PHOSPHATASE 53 U/L (38-133); ALT/SGPT 31 U/L (7-56); AST/SGOT 16 U/L (15-39); BLOOD UREA NITROGEN 45 mg/dL (7-21); CALCIUM 9.2 mg/dL (8.4-10.5); CARBON DIOXIDE 31 mmol/L (21-33); CHLORIDE 104 mmol/L (98-107); GFR AFRICAN-AMERICAN > 60; GLUCOSE,RANDOM 82 mg/dL (70-110); POTASSIUM 3.6 mmol/L (3.6-5.0); SODIUM 140 mmol/L (132-148); TOTAL PROTEIN 5.9 g/dL (5.8-8.3)
--- NOTE | 2016-08-10 09:01 | PN ---
DATE: 08/09/2016 SUBJECTIVE: This patient was seen and evaluated earlier today. The patient is tolerating the diet. No bleeding per rectum. No melena. PHYSICAL EXAMINATION: VITAL SIGNS: Stable. She is afebrile, blood pressure 130/52. Respiration was 14, pulse 67. HEENT: Atraumatic, anicteric. NECK: Supple. HEART: S1, S2 heard. LUNGS: Bilateral air entry present. ABDOMEN: Soft. EXTREMITIES: Mild edema present. LABORATORY DATA: Hemoglobin 7.1, hematocrit 22.8, INR 3.8. IMPRESSION: This is review of a 71-year-old patient with a history of cirrhosis of the liver, with g astric vascular ectasia, arteriovenous malformations treated before with argon plasma coagulation, hi story of large polyps in the colon, status post endoscopic mucosal resection, recurrent admissions wi th anemia, multiple endoscopies done, but unfortunately even. The patient developed pneumonia with p revious ____ careful consideration with anesthesiologist. I suspect the real concern is the signific ant weight loss. INR is also elevated at 3.8 in this patient. We will continue to follow up the hemoglobin and hematocrit. We will discuss with Dr. Kirby again. INR is elevated at 3.8. Need to hold the Coumadin. Close followup of the hemoglobin and hematocri t. The patient did receive transfusions - hemoglobin on the low side. Thank you very much for allowing us to participate in the care of the patient. Rahel Hamilton MD cc: [phone] TT: 08/10/2016 09:00:42 Confirmation # [id number] Dictation # [id number] kulwinder
[2016-08-10 10:20] VITALS: RESP 22
[2016-08-10] MEDS: Tiotropium 18 mcg Cap For Inhalation IH SCH (10:22)
[2016-08-10] MEDS: Pantoprazole 40 mg EC Tab PO SCH (10:26)
--- NOTE | 2016-08-10 11:05 | PN ---
DATE: 08/10/2016 SUBJECTIVE: The patient has no complaints of any chest pain, no shortness of breath, no headaches. PHYSICAL EXAMINATION: VITAL SIGNS: Temperature is 98.7, pulse of 56, blood pressure 106/78, respirations 18. GENERAL: The patient comfortable, in no acute distress. HEENT: Anicteric sclerae. Moist mucosa. NECK: No JVD or adenopathy. CARDIAC: S1/S2. No murmurs. No rubs. Regular. RESPIRATORY: Clear to auscultation bilaterally. No wheezes, rales, or rhonchi. Good air entry. ABDOMEN: Bowel sounds are positive, soft, nontender, and nondistended. EXTREMITIES: No edema. Has 1+ pulses. LABORATORIES: White count of 5.2, hemoglobin 8.8. Creatinine 0.9. ASSESSMENT: 1. Acute anemia, secondary to blood loss. 2. Atrial fibrillation, Coumadin on hold. 3. Diverticulosis. 4. Coronary artery disease. 5. Hypertension. 6. Dyslipidemia. 7. Diabetes type 2. 8. Obesity with a body mass index of 39. PLAN: The patient is currently comfortable. She received a transfusion yesterday. Her hemoglobin i s better today. The patient's Coumadin continues to be on hold. She is being followed by Dr. María negrete. The patient is on nadolol, is going to continue on Lasix. The patient is on Spiriva for chronic obstructive pulmonary disease, is on Ambien for sleep. She is on Amaryl for her diabetes. We will place her on insulin coverage. Da Wooten MD cc: [id number] TT: 08/10/2016 11:04:41 Confirmation # [id number] Dictation # [id number] en
[2016-08-10] MEDS: Insulin Reg-LOW-Coverage SC SCH ×3 (12:05→22:47)
--- NOTE | 2016-08-10 17:12 | PN ---
DATE: 08/10/2016 SUBJECTIVE: This patient was seen and evaluated earlier. The patient is comfortable. No obvious bleeding, melena or bright red blood per rectum. PHYSICAL EXAMINATION: VITAL SIGNS: Temperature 98, her pulse 80, blood pressure 140/70. HEENT: Atraumatic, anicteric. NECK: Supple. HEART: S1, S2 heard. LUNGS: Bilateral air entry present. ABDOMEN: Soft, distended. EXTREMITIES: Mild edema present. LABORATORY DATA: Hemoglobin 8.8, hematocrit 27.9, WBC 5.2, platelets 192. Chemistry is essentially otherwise unremarkable. The patient had an upper GI endoscopy done 05/12/2016 and it was a push enteroscopy and she was found to have portal gastropathy and also an angiodysplasia seen in the duodenum which was treated. The patient had a colonoscopy done in 09/2015. She was also found to have multiple colon polyps. She was found to have small rectosigmoid ulcerations. It was done in 09/2015. The consent we had about this patient is her risk of endoscopic procedure. The patient did have episodes of post- procedure, patient did have pneumonias in spite of careful monitoring the airways. The risk/benefit ratio has to be clearly outweighed. The overall general plan is to supplement the patient on iron supplements and use p.r.n. blood transfusion and if the patient has significant drop in blood count, would consider repeating the endoscopic evaluation. PLAN: Presently, the patient's INR is significantly elevated. Would recommend to hold off the Coumadin and we will have further discussion with the patient and the family. If they are agreeable, we will consider repeating the EGD and the colonoscopic studies. This is a 71-year-old patient who has a multiple high risk condition. At the moment, the plan is to hold off the Coumadin. She may need a Lovenox bridge before the endoscopic evaluation is planned. Thank you very much for allowing us to participate in the care of the patient. Rahel Hamilton MD cc: [id number] TT: 08/10/2016 17:11:06 Confirmation # [id number] Dictation # [id number] [facility]
--- NOTE | 2016-08-10 22:35 | CP.PCM.CON ---
History of Present Illness - History of Present Illness History of Present Illness: Ms. Baxter is 71 year old female admitted with Hemoglobin of 6 gm/dl. She has occult GI bleed and chronic iron deficiency anemia. She is on coumadin for A-Fib. She also has COPD, continues to smoke. No shortness of breath. CHF - Stable. She has history of breast cancer, no evidence of disease. Received 2 units of PRBC since admission. Review of Systems - Constitutional Constitutional: Fatigue, Malaise, Weakness - EENT Eyes: absent: As Per HPI, Blind Spots, Blurred Vision, Change in Vision, Decreased Night Vision, Diplopia, Discharge, Dry Eye, Exophthalmos, Floaters, Irritation, Itchy Eyes, Loss of Peripheral Vision, Pain, Photophobia, Requires Corrective Lenses, Sees Flashes, Spots in Vision, Tunnel Vision, Other Visual Disturbances, Loss of Vision, Other Nose/Mouth/Throat: absent: As Per HPI, Epistaxis, Nasal Congestion, Nasal Discharge, Nasal Obstruction, Nasal Trauma, Nose Pain, Post Nasal Drip, Sinus Pain, Sinus Pressure, Bleeding Gums, Change in Voice, Dental Pain, Dry Mouth, Dysphagia, Halitosis, Hoarsness, Lip Swelling, Mouth Lesions, Mouth Pain, Odynophagia, Sore Throat, Throat Swelling, Tongue Swelling, Facial Pain, Neck Pain, Neck Mass, Other - Breasts Breasts: As Per HPI - Cardiovascular Cardiovascular: Dyspnea, Irregular Heart Rhythm - Respiratory Respiratory: Cough, Dyspnea on Exertion - Gastrointestinal Gastrointestinal: absent: As Per HPI, Abdominal Pain, Belching, Bloating, Change in Bowel Habits, Change in Stool Character, Coffee Ground Emesis, Constipation, Cramping, Diarrhea, Dyspepsia, Dysphagia, Early Satiety, Excessive Flatus, Fecal Incontinence, Heartburn, Hematemesis, Hematochezia, Loose Stools, Melena, Nausea, Odynophagia, Temesmus, Vomiting, Other - Genitourinary Genitourinary: absent: As Per HPI, Change in Urinary Stream, Difficulty Urinating, Dysuria, Flank Pain, Hematuria, Pyuria, Nocturia, Urinary Incontinence, Urinary Frequency, Urinary Hesitance, Urinary Urgency, Voiding Freq/Small Amts, Freq UTI, Hx Renal/Bladder Calculi, Hx /Renal Surgery, Bladder Distension, Other - Reproductive: Female Reproductive:Female: absent: As Per HPI, Amenorrhea, Amenorrhea/ Control, Currently Menstual, Cycle <21 Days, Cycle >35 Days, Cycle Variable, Menses 1-7 Days, Menses >/= 8 Days, Menses Variable, Cycle > 4 Weeks Between, No Menses for 6 Months, Heavy Menses, Light Menses, Normal Menses, Spotting Between Cycles , S/P Hysterectomy, Menopausal, Post Menopausal, Premenarche, Abnormal Vaginal Bleeding, Dysmenorrhea, Dyspareunia, Genital Lesions, Genital Pruritis, Pelvic Pain, Prolapse Symptoms, Sexual Dysfunction, Vaginal Discharge, Vaginal Dryness , Vaginal Odor, Vaginal Pruritis, Other - Musculoskeletal Musculoskeletal: Muscle Weakness. absent: As Per HPI, Abnormal Gait, Arthralgias, Atrophy, Back Pain, Deformity, Joint Swelling, Limited Range of Motion, Loss of Height, Muscle Cramps, Myalgias, Neck Pain, Numbness, Radiating Pain into Limb, Stiffness, Tingling, Other - Integumentary Integumentary: absent: As Per HPI, Acne, Alopecia, Bleeding Lesions, Change in Hair, Change in Nails, Change in Pigmentation, Changing Lesions, Dry Skin, Erythema, Furuncle, Hirsutism, Lesions, New Lesions, Non-Healing Lesions, Photosensitivity, Pruritus, Rash, Skin Pain, Skin Ulcer, Sores, Striae, Swelling , Unusual Bruising, Wounds, Jaundice, Other - Neurological Neurological: absent: As Per HPI, Abnormal Gait, Abnormal Hearing, Abnormal Movements, Abnormal Speech, Behavioral Changes, Burning Sensations, Confusion, Convulsions, Disequilibrium, Dizziness, Numbness, Focal Weakness, Frequent Falls , Headaches, Lack of Coordination, Loss of Vision, Memory Loss, Paresthesias, Radicular Pain, Restless Legs, Sensory Deficit, Syncope, Tingling, Tremor, Vertigo, Weakness, Other Visual Disturbances, Other - Psychiatric Psychiatric: absent: As Per HPI, Abnormal Sleep Pattern, Anhedonia, Anxiety, Auditory Hallucinations, Behavioral Changes, Change in Appetite, Change in Libido, Confusion, Depression, Difficulty Concentrating, Hallucinations, Homicidal Ideation, Hopelessness, Irritability, Memory Loss, Mood Swings, Panic Attacks, Paranoia, Suicidal Ideation, Visual Hallucinations, Tactile Hallucinations, Other - Endocrine Endocrine: absent: As Per HPI, Change in Body Appearance, Change in Libido, Cold Intolorance, Deepening of Voice, Excessive Sweating, Fatigue, Flushing, Heat Intolorance, Increase in Ring/Shoe/Hat Size, Palpitations, Polydipsia, Polyphagia, Polyuria, Other - Hematologic/Lymphatic Hematologic: As Per HPI Past Patient History - Infectious Disease Hx of Infectious Diseases: None - Tetanus Immunizations Tetanus Immunization: Unknown - Past Medical History & Family History Past Medical History?: Yes - Past Social History Smoking Status: Heavy Smoker > 10 Cigarettes Daily - CARDIAC Hx Cardiac Disorders: Yes Hx Cardia Arrhythmia: Yes Hx Circulatory Problems: Yes Hx Congestive Heart Failure: Yes Hx Hypercholesterolemia: Yes Hx Hypertension: Yes Hx Peripheral Edema: Yes - PULMONARY Hx Chronic Obstructive Pulmonary Disease (COPD): Yes Hx Pneumonia: Yes Hx Respiratory Tract Infection: Yes Hx Sleep Apnea: Yes - NEUROLOGICAL Hx Neurological Disorder: Yes Hx Seizures: Yes - HEENT Hx HEENT Problems: No - RENAL Hx Chronic Kidney Disease: Yes Hx Renal Failure: Yes - ENDOCRINE/METABOLIC Hx Endocrine Disorders: Yes Hx Diabetes Mellitus Type 1: Yes Hx Diabetes Mellitus Type 2: Yes Hx Hypothyroidism: Yes - HEMATOLOGICAL/ONCOLOGICAL Hx Blood Disorders: Yes (sepsis) Hx Anemia: Yes (iron deficiency) Hx Cancer: Yes (left breast lumpectomy) Hx Chemotherapy: Yes - INTEGUMENTARY Hx Dermatological Problems: No - MUSCULOSKELETAL/RHEUMATOLOGICAL Hx Musculoskeletal Disorders: Yes Hx Arthritis: Yes Hx Back Pain: Yes Hx Degenerative Joint Disease: Yes (Bilateral knee replacement) Hx Falls: Yes Hx Unsteady Gait: Yes - GASTROINTESTINAL Hx Gastrointestinal Disorders: Yes Hx Gastroesophageal Reflux: Yes - GENITOURINARY/GYNECOLOGICAL Hx Genitourinary Disorders: Yes Hx Incontinence: Yes Hx Urinary Tract Infection: Yes - PSYCHIATRIC Hx Psychophysiologic Disorder: Yes Hx Anxiety: Yes - SURGICAL HISTORY Hx Surgeries: Yes Hx Cardiac Catheterization: Yes Hx Joint Replacement: Yes Hx Orthopedic Surgery: Yes - ANESTHESIA Hx Anesthesia Reactions: No Hx Malignant Hyperthermia: No Meds Allergies/Adverse Reactions: Allergies Allergy/AdvReac Type Severity Reaction Status Date / Time No Known Allergies Allergy Verified 06/18/16 20:18 - Medications Medications: Current Medications Acetaminophen (Tylenol 325mg Tab) 650 mg PO Q4H PRN PRN Reason: Pain, moderate (4-7) Last Admin: 08/08/16 10:58 Dose: 650 mg Furosemide (Lasix) 40 mg IVP DAILY [facility] Last Admin: 08/10/16 10:22 Dose: 40 mg Glimepiride (Amaryl) 4 mg PO ACBD [facility] Last Admin: 08/10/16 18:21 Dose: 4 mg Hydralazine HCl (Apresoline) 50 mg PO BID [facility] Last Admin: 08/10/16 18:17 Dose: 50 mg Insulin Human Regular (Humulin R Low) 0 units SC ACHS [facility] PRN Reason: Protocol Last Admin: 08/10/16 16:21 Dose: Not Given Isosorbide Mononitrate (Imdur) 60 mg PO DAILY [facility] Last Admin: 08/10/16 10:24 Dose: 60 mg Nadolol (Corgard) 10 mg PO BID [facility] Last Admin: 08/10/16 18:18 Dose: 10 mg Nystatin (Nystop Topical Powder) 0 gm TOP DAILY PRN PRN Reason: Rash Last Admin: 08/10/16 10:22 Dose: 1 applic Pantoprazole Sodium (Protonix Ec Tab) 40 mg PO DAILY [facility] Last Admin: 08/10/16 10:26 Dose: 40 mg Tiotropium [place] (Spiriva) 18 mcg IH DAILY [facility] Last Admin: 08/10/16 10:22 Dose: 18 mcg Zolpidem Tartrate (Ambien) 5 mg PO HS PRN; Protocol PRN Reason: Insomnia Last Admin: 08/08/16 23:36 Dose: 5 mg Physical Exam - Constitutional Appears: Well, Non-toxic - Head Exam Head Exam: ATRAUMATIC, NORMAL INSPECTION, NORMOCEPHALIC - Eye Exam Eye Exam: Normal appearance Pupil Exam: NORMAL ACCOMODATION, PERRL - ENT Exam ENT Exam: Mucous Membranes Moist, Normal Exam - Neck Exam Neck exam: Positive for: Normal Inspection - Respiratory Exam Respiratory Exam: Clear to Auscultation Bilateral, NORMAL BREATHING PATTERN - Cardiovascular Exam Cardiovascular Exam: Irregular Rhythm, +S1, +S2 - GI/Abdominal Exam GI & Abdominal Exam: Normal Bowel Sounds, Soft - Extremities Exam Extremities exam: Positive for: normal inspection, pedal edema - Back Exam Back exam: NORMAL INSPECTION - Neurological Exam Neurological exam: CN II-XII Intact, Normal Gait, Oriented x3, Reflexes Normal - Skin Skin Exam: Normal Color, Pallor, Warm Results - Vital Signs Recent Vital Signs: Last Vital Signs Temp 98 F 08/10/16 16:18 Pulse 70 08/10/16 18:18 Resp 22 08/10/16 16:18 BP 140/70 08/10/16 18:18 Pulse Ox 95 08/10/16 08:00 - Labs Result Diagrams: 08/10/16 07:00 08/10/16 07:00 Labs: Laboratory Results - last 24 hr 08/10/16 08/10/16 07:00 07:00 WBC 5.2 RBC 3.13 L Hgb 8.8 L Hct 27.9 L MCV 89.1 MCH 28.1 MCHC 31.5 RDW 19.2 H Plt Count 192 MPV 9.7 Gran % 71.4 H Lymph % (Auto) 16.1 L [place] % (Auto) 9.6 H Eos % (Auto) 2.7 Baso % (Auto) 0.2 Gran # 3.72 Lymph # 0.8 L [place] # 0.5 Eos # 0.1 Baso # 0.01 Sodium 140 Potassium 3.6 Chloride 104 Carbon Dioxide 31 Anion Gap 9 L BUN 45 H Creatinine 0.9 Est GFR ( Amer) > 60 Est GFR (Non-Af Amer) > 60 Random Glucose 82 Calcium 9.2 Total Bilirubin 1.0 AST 16 ALT 31 Alkaline Phosphatase 53 Total Protein 5.9 Albumin 3.6 Globulin 2.4 Albumin/Globulin Ratio 1.5 Assessment & Plan (1) Anemia Status: Acute Comment: Chronic iron deficiecncy anemia. S/P 2 units of PRBC. iron studies. She has chronic GI bleed. She is on coumadin. mutliple EGD in past. I would recommend IV iron as out patient as and when needed. (2) Atrial fibrillation Status: Chronic Comment: heart rate controlled with current meds. On coumadin . Pt. INR monitoring. (3) CHF (congestive heart failure) Status: Chronic Comment: Stable. (4) COPD (chronic obstructive pulmonary disease) Status: Chronic Comment: no exacerbation during this admission, continues to smoke. Multiple frequent exacerbations
[2016-08-11 06:54] LABS: ADD MANUAL DIFF? NO
[2016-08-11 07:08] LABS: INR 1.58 (0.93-1.08)
[2016-08-11 07:17] LABS: BASO # 0.02 K/mm3 (0.0-2.0); BASO % 0.5 % (0.0-3.0); EOS # 0.1 (0.0-0.7); EOS % 3.2 % (1.5-5.0); GRAN # 2.92 (1.4-6.5); GRAN % 66.5 % (50.0-68.0); HEMATOCRIT 28.9 % (36.0-48.0); LYMPH # 0.9 (1.2-3.4); LYMPH % 20.5 % (22.0-35.0); MEAN CELL VOLUME 90.9 fL (80.0-105.0); MEAN CORPUSCULAR HGB CONC 30.8 g/dl (31.0-37.0); MEAN PLATELET VOLUME 10.1 fl (7.0-11.0); MONO # 0.4 (0.1-0.6); MONO % 9.3 % (1.0-6.0); PLATELET COUNT 211 10^3/uL (120.0-450.0); RED CELL DISTRIBUTION WIDTH 18.8 % (11.5-14.5); WHITE BLOOD COUNT 4.4 10^3/ul (4.5-11.0)
[2016-08-11 07:26] VITALS: BP 136/70; PULSE 92; TEMP 97.7
[2016-08-11 07:29] LABS: ALB/GLOB RATIO 1.4 (1.1-1.8); ALKALINE PHOSPHATASE 49 U/L (38-133); ALT/SGPT 30 U/L (7-56); AST/SGOT 18 U/L (15-39); BILIRUBIN,TOTAL 0.8 mg/dL (0.2-1.3); BLOOD UREA NITROGEN 42 mg/dL (7-21); CALCIUM 9.1 mg/dL (8.4-10.5); CARBON DIOXIDE 32 mmol/L (21-33); CHLORIDE 101 mmol/L (95-110); GFR AFRICAN-AMERICAN > 60; GLUCOSE,RANDOM 62 mg/dL (70-110); IRON 30 ug/dL (45-180); POTASSIUM 3.6 mmol/L (3.6-5.0); SODIUM 140 mmol/L (132-148); TOTAL PROTEIN 6.2 g/dL (5.8-8.3)
[2016-08-11] MEDS: Insulin Reg-LOW-Coverage SC SCH ×3 (07:52→17:13)
[2016-08-11] MEDS: Pantoprazole 40 mg EC Tab PO SCH (10:39)
[2016-08-11] MEDS: Tiotropium 18 mcg Cap For Inhalation IH SCH (10:39)
[2016-08-11] MEDS ORDERED: Iron Sucrose 100 mg/5 ml Inj IVP ONE (11:40)
--- NOTE | 2016-08-11 12:07 | PN ---
DATE: 08/11/2016 Seen and examined at the bedside this morning. She is out of bed to chair. No reports of any acute overnight events. Denies any nausea, vomiting or abdominal pain. No reports of any overt GI bleed. VITAL SIGNS: Temperature is 97.7, blood pressure is 136/70, pulse 92, respirations 18, 95% with nasal cannula. LABORATORIES: WBC 4.4, H and H is 8.9 and 28.9, platelets is . PT is 17.1 , INR is 1.58. Chem: Sodium 140, K 3.6, BUN 42, creatinine 0.9. Her iron is low at 30, TIBC is 428, and percent saturation is 7. LFTs are within normal limits. Ferritin is pending right now. PHYSICAL EXAMINATION: HEENT: Sclera is anicteric. NECK: Supple. CARDIAC: S1, S2. LUNG SOUNDS: With decreased breath sounds, but good air entry, no rales or wheeze. ABDOMEN: With bowel sounds, softly obese and distended, but no tenderness on palpation. EXTREMITIES: Positive bilateral edema. NEUROLOGIC: Awake, alert, and oriented. 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 She has a history of large colon polyps, status post endoscopic mucosal resection with recurrent admissions with anemia and status post multiple endoscopies. The patient is here with pneumonia with past history of chronic obstructive pulmonary disease and history of atrial fibrillation with coagulopathy. Her Coumadin is currently on hold. She also has a history of diabetes mellitus. PLAN: May benefit from EGD/flexsig in view of H/O AMV and anastomic ulcer, did speak to Dr Kirby, hold off for now as patient with multiple comorbidities and high risk, recondsider when patient is more optimal . Patient to be restarted back on Coumadin. Will continue the diet. Continue PPI. She is on Protonix. Continue to monitor H and H. The patient was seen and case discussed with Dr. Hamilton. Esther PÉREZ cc: [id number] TT: 08/11/2016 11:50:01 Confirmation # [id number] Dictation # [id number] en DELBERT
--- NOTE | 2016-08-11 13:48 | DS ---
The patient is a 71-year-old, seen and examined, sitting in chair, seems to be doing a little better, still feels very sleepy and tired. PHYSICAL EXAMINATION: VITAL SIGNS: The patient is afebrile, pulse 92, respirations 22, blood pressure 136/70. LUNGS: Bilateral good airflow, no rhonchi or crackle. HEART: S1, S2 audible. ABDOMEN: Soft, obese, nontender, no rebound, no guarding. NEUROLOGIC: The patient is awake and alert, communicative. LABORATORY EXAMINATION: WBCs 4.4, hemoglobin 8.9, hematocrit 28.9, platelets of 211. PT 17.1, INR 1 .58. Chemistry: Sodium 140, potassium 3.6, chloride 101, CO2 32, BUN 42, creatinine 0.9, blood suga r of 62. ASSESSMENT: 1. Symptomatic anemia. 2. Chronic obstructive pulmonary disease. 3. Right ventricular failure. 4. Coronary artery disease, status post angioplasty. 5. Non-insulin dependent diabetes. 6. Congestive gastropathy. PLAN: I will talk to Dr. Sandra. The patient is not actively bleeding. We might have to hold off for endoscopy and colonoscopy. If she continues to drop her hemoglobin, then we will make a plan for fl ex sig and endoscopy. We will resume her usual dose of Coumadin and make a discharge plan later on after she receives her Venofer. Edwige Kirby MD cc: [phone] TT: 08/11/2016 13:47:22 en
--- NOTE | 2016-08-11 18:23 | PN ---
DATE: 08/11/2016 The patient in room 561, bed #2. REASON FOR CONSULTATION AND FOLLOWUP: Shortness of breath, anemia, atrial fibrillation, coronary art dhaval disease. HISTORY OF PRESENT ILLNESS: A 71-year-old morbidly obese female who still continues to smoke. Known case of CHF, COPD exacerbation, active tobacco abuse, who was admitted feeling very weak, lethargic, found to have severe anemic. The patient also known to have diabetes, hypertension, hyperlipidemia, chronic atrial fibrillation, status post failed DARIUS cardioversion, history of cardiac catheterizatio n 1 vessel, RCA disease, moderate aortic stenosis. The patient's admitting hemoglobin 6.2. The nabil ent sitting in chair comfortably at present without chest pain, shortness of breath, or palpitation. The patient had cardiac catheterization 2-1/2 years ago and patient had a DARIUS 04/07/2016, findings we re mentioned in our consult of 08/08/2016. PHYSICAL EXAMINATION: VITAL SIGNS: Blood pressure 136/70, respirations 22, pulse 92, temperature 97.7. HEAD: Normocephalic. EYES: Pupils normal. Conjunctivae slightly pale. NECK: JVP low. Carotid equal. THORAX: AP diameter normal. LUNGS: No significant rales. CARDIOVASCULAR: S1, S2, ejection systolic murmur, no rub. ABDOMEN: Protuberant, no organomegaly. EXTREMITIES: No clubbing, no cyanosis. LABORATORY DATA: WBC 4.4, hemoglobin 8.9, hematocrit 28.9, platelet 211. Sodium 140, potassium 3.6, BUN 42, creatinine 0.9, random glucose 62 yesterday was 82, calcium 9.1. AST, ALT normal. Total pr otein and albumin normal. DIAGNOSES: Severe anemia, probably gastrointestinal bleeding, coronary artery disease, 1-vessel carina nary artery disease, failed DARIUS cardioversion of atrial fibrillation, moderate aortic stenosis, morbi d obesity, chronic obstructive pulmonary disease, tobacco abuse, hypertension, hyperlipidemia, diabet es, obesity, chronic atrial fibrillation. PLAN: The patient has been transfused and if patient needs any GI procedure, there is no absolute co ntraindication. The patient can go from cardiac point of view for endoscopy or colonoscopy or any ot her GI procedure. Prothrombin time is 17.1, INR 1.58. The patient had been restarted on warfarin 5 mg p.o. daily, Corgard 10 mg b.i.d., Amaryl 4 mg p.o. ____, hydralazine 50 mg b.i.d., isosorbide mono 60 daily, furosemide 40 IV daily, Protonix 40 p.o. daily, iron sucrose therapy has been also given t trey. We will follow with you. Brianna Deng MD cc: [phone] TT: 08/11/2016 18:22:45 Confirmation # [id number] Dictation # [id number] jn
--- NOTE | 2016-08-11 22:49 | CP.PCM.PN ---
Subjective - Date & Time of Evaluation Date of Evaluation: 08/11/16 Time of Evaluation: 15:00 - Subjective Subjective: Comfortable in bed. Hb is stable at 9.4 gm/dl. On coumadin for A-Fib. INR supratherapeutic. Shortness of breath on walking short distances. No bleeding RI, no dark colored stools. History of breast cancer, in remission. Objective - Vital Signs/Intake and Output Vital Signs (last 24 hours): Temp Pulse Resp BP Pulse Ox 97.7 F 92 H 22 136/70 95 08/11/16 07:25 08/11/16 07:25 08/11/16 07:25 08/11/16 10:39 08/11/16 07:25 Intake and Output: 08/11/16 08/12/16 18:59 06:59 Intake Total 720 Balance 720 - Labs Labs: 08/11/16 06:30 08/11/16 06:30 PT 17.1 Seconds (9.9-11.8) H 08/11/16 06:30 INR 1.58 (0.93-1.08) H 08/11/16 06:30 - Head Exam Head Exam: ATRAUMATIC, NORMAL INSPECTION, NORMOCEPHALIC - Eye Exam Eye Exam: Normal appearance, PERRL Pupil Exam: NORMAL ACCOMODATION - ENT Exam ENT Exam: Mucous Membranes Moist, Normal Exam, Normal Oropharynx - Neck Exam Neck Exam: Normal Inspection - Respiratory Exam Respiratory Exam: Clear to Ausculation Bilateral, NORMAL BREATHING PATTERN - Cardiovascular Exam Cardiovascular Exam: Irregular Rhythm, +S1, +S2 - GI/Abdominal Exam GI & Abdominal Exam: Soft, Normal Bowel Sounds - Extremities Exam Extremities Exam: Normal Inspection, Pedal Edema - Back Exam Back Exam: NORMAL INSPECTION - Neurological Exam Neurological Exam: Alert, Awake, CN II-XII Intact, Normal Gait, Oriented x3 - Psychiatric Exam Psychiatric exam: Normal Affect, Normal Mood - Skin Skin Exam: Dry, Normal Color, Warm Assessment and Plan (1) Anemia Assessment & Plan: Iron deficiency, will continue IV iron as out patient. Received one dose of IV iron today. Status: Acute (2) Atrial fibrillation Assessment & Plan: A- FIB , continue to be on coumadin. management as per Dr. Kirby Status: Chronic (3) CHF (congestive heart failure) Assessment & Plan: stable. Status: Chronic (4) COPD (chronic obstructive pulmonary disease) Assessment & Plan: continue to smoke. Gets frequent exacerbation Status: Chronic
--- NOTE | 2016-08-12 00:48 | PN ---
DATE: 08/11/2016 ADDENDUM: This is an addendum to the GI progress report dictated by Esther Santos NP. SUBJECTIVE: The patient's hemoglobin is 8.9. I have discussed, again, with Dr. Kirby regarding the endoscopy and flexible sigmoidoscopy examination on anticoagulation. She has discussed with the patient and the decision was to hold off the endoscopy and colonoscopy procedure. PLAN: The plan is to follow up in outpatient infusion and followup. If the hemoglobin continues to drop significantly, then, she we will consider for the endoscopic evaluation. The present plan was to cancel the procedure. Will hold off the procedure. Thank you very much for allowing us to participate in the care of the patient. Rahel Hamilton MD cc: [phone] TT: 08/12/2016 00:48:29 Confirmation # [id number] Dictation # [id number] [email or web address] [email or web address]
--- NOTE | 2016-10-15 08:39 | HP ---
DATE: 10/14/2016 BRIEF HISTORY AND HISTORY OF PRESENT ILLNESS: This is a 71-year-old female who is coming into the hospital with a hemoglobin of 6. The patient had chronic iron deficiency amenia and she was admitted to get evaluated for bleeding from the GI tract. She has been on Coumadin for her atrial fibrillation. The patient has a history of COPD. She is a smoker. She has a history of breast cancer. She says she is fatigued, she is weak, she has been having difficulty with walking because of shortness of breath. She has no complaints of any chest pain. No nausea. No vomiting. No dysuria or frequency. No nocturia. REVIEW OF SYSTEMS: All other review of systems are within normal limits except what is mentioned. ALLERGIES: NO KNOWN DRUG ALLERGIES. PAST MEDICAL HISTORY: As above. Also diabetes type 2, dyslipidemia, hypertension, atrial fibrillation, lower extremity edema and breast cancer status post lumpectomy. PAST SURGICAL HISTORY: Hysterectomy and lumpectomy. SOCIAL HISTORY: She is a smoker with greater than 10 cigarettes per day. FAMILY HISTORY: Noncontributory. PHYSICAL EXAMINATION VITAL SIGNS: Temperature is 98, pulse is 70, respirations 20, blood pressure is 140/70, O2 saturation 95%. GENERAL: The patient is lying in bed flat, comfortable, in no acute distress. HEENT: Atraumatic and normocephalic. EOMI, PERRLA. Anicteric sclerae. Moist mucosa. NECK: No JVD, adenopathy, thyromegaly or bruits. CARDIOVASCULAR: S1 and S2 irregular. No murmurs or rubs. LUNGS: Good bilateral air entry. No wheezes, rales, or rhonchi. ABDOMEN: Bowel sounds are positive. Soft, nontender and nondistended. No hepatosplenomegaly. No rebound. No guarding. NEUROLOGIC: She is alert, awake, and oriented x3. No facial asymmetry. Tongue is midline. No uvula deviation. PSYCHIATRIC: Good insight. No hallucinations. No depression. No anxiety. EXTREMITIES: No cyanosis, clubbing, or edema. Lower extremity 2+ pulses. LABORATORY DATA: The patient has a white count of 5.2, hemoglobin is 8.8. After the transfusion, creatinine is 0.9. ASSESSMENT: 1. Acute anemia secondary to blood loss. 2. Chronic obstructive pulmonary disease. 3. Hypertension. 4. Atrial fibrillation. 5. Aortic stenosis. 6. Diabetes type 2. 7. Dyslipidemia. PLAN: The patient is admitted to the hospital and is given transfusion. The patient is going to need to continue on Coumadin. The patient is going to have GI evaluation and cardiac evaluation. She has been treated with IV iron for iron deficiency. We will wait further input from Dr. Hamilton and Dr. Sandra. Da Wooten MD
== END 2016-08-11 17:57 | disposition home or self-care (01) | DRG 811 ==
LOC: ED 18:20 → ERH 19:07 → 5RNO 23:59 → OBSVTOIN 08-08 00:14
PROVIDERS: ADMIT Internal Medicine; ATTEND Internal Medicine
PROC: 30233N1 Transfusion of Nonautologous Red Blood Cells into Peripheral Vein, Percutaneous Approach (ICD-10-PCS; principal; 2016-08-08)
DX: D62 Acute posthemorrhagic anemia (principal); J18.9 Pneumonia, unspecified organism; K63.3 Ulcer of intestine; I13.0 Hypertensive heart and chronic kidney disease with heart failure and stage 1 through stage 4 chronic kidney disease, or unspecified chronic kidney disease; E11.22 Type 2 diabetes mellitus with diabetic chronic kidney disease; I25.82 Chronic total occlusion of coronary artery; I50.9 Heart failure, unspecified; J44.0 Chronic obstructive pulmonary disease with (acute) lower respiratory infection; E66.01 Morbid (severe) obesity due to excess calories; J44.1 Chronic obstructive pulmonary disease with (acute) exacerbation; K92.1 Melena; I27.2 Other secondary pulmonary hypertension; I48.2 Chronic atrial fibrillation; I25.10 Atherosclerotic heart disease of native coronary artery without angina pectoris; Z98.61 Coronary angioplasty status; E03.9 Hypothyroidism, unspecified; N18.9 Chronic kidney disease, unspecified; E78.00 Pure hypercholesterolemia, unspecified; E78.5 Hyperlipidemia, unspecified; F17.200 Nicotine dependence, unspecified, uncomplicated; F17.210 Nicotine dependence, cigarettes, uncomplicated; G47.30 Sleep apnea, unspecified; I08.1 Rheumatic disorders of both mitral and tricuspid valves; I35.0 Nonrheumatic aortic (valve) stenosis; K21.9 Gastro-esophageal reflux disease without esophagitis; K27.9 Peptic ulcer, site unspecified, unspecified as acute or chronic, without hemorrhage or perforation; K29.70 Gastritis, unspecified, without bleeding; K31.89 Other diseases of stomach and duodenum; K57.90 Diverticulosis of intestine, part unspecified, without perforation or abscess without bleeding; K74.60 Unspecified cirrhosis of liver; K76.1 Chronic passive congestion of liver; Z68.39 Body mass index [BMI] 39.0-39.9, adult; Z79.01 Long term (current) use of anticoagulants; D50.0 Iron deficiency anemia secondary to blood loss (chronic); Z79.4 Long term (current) use of insulin; Z79.84 Long term (current) use of oral hypoglycemic drugs; Z86.010 Personal history of colon polyps; Z87.01 Personal history of pneumonia (recurrent); Z85.3 Personal history of malignant neoplasm of breast; Z87.440 Personal history of urinary (tract) infections; Z96.653 Presence of artificial knee joint, bilateral; I78.1 Nevus, non-neoplastic; Z86.19 Personal history of other infectious and parasitic diseases; Z87.09 Personal history of other diseases of the respiratory system; Z86.69 Personal history of other diseases of the nervous system and sense organs; Z87.448 Personal history of other diseases of urinary system; M19.90 Unspecified osteoarthritis, unspecified site; R32 Unspecified urinary incontinence; F41.9 Anxiety disorder, unspecified; M54.9 Dorsalgia, unspecified; R53.81 Other malaise; R26.2 Difficulty in walking, not elsewhere classified; Z87.19 Personal history of other diseases of the digestive system

== ENCOUNTER 2016-09-24 14:44 | Inpatient (IN) | payer MEDICARE, OTHER ==
[2016-09-24] MEDS ORDERED: Vancomycin 1gm in NS 250ml 1 GM/250 ML BAG IVPB STA (15:45)
--- NOTE | 2016-09-24 16:02 | ED PDOC ---
Arrival/HPI - General Historian: Patient - History of Present Illness Time/Duration: < month Symptom Onset: Gradual Symptom Course: Worsening - General Chief Complaint: Lower Extremity Problem/Injury Time Seen by Provider: 09/24/16 15:05 - History of Present Illness Narrative History of Present Illness (Text): 09/24/16 16:02 71 year old female with past medical history DM, COPD, CHF, anemia, CAD, and Afib was sent in by Dr. Henriquez for diabetic left foot infection with ulceration. Patient reports accidentally kicking a rock with her left foot 3 weeks ago. Initially there was redness and eventually developed into an ulcer. Patient started experiencing pain 2 weeks ago. Patient finished a course of oral antibiotics prescribed by her PMD, but the toe did not improve. Patient also complains of chronic bilateral lower extremity swelling. Patient denies having headache, fever, chills, shortness of breath, chest pain, nausea, vomiting, or diarrhea. (Vicki Faye) Past Medical History - Provider Review Nursing Documentation Reviewed: Yes - Infectious Disease Hx of Infectious Diseases: None - Tetanus Immunization Tetanus Immunization: Unknown - Cardiac Hx Cardiac Disorders: Yes Hx Cardiac Arrhythmia: Yes Hx Circulatory Problems: Yes Hx Congestive Heart Failure: Yes Hx Hypertension: Yes Hx Peripheral Edema: Yes - Pulmonary Hx Chronic Obstructive Pulmonary Disease (COPD): Yes Hx Pneumonia: Yes Hx Respiratory Tract Infection: Yes Hx Sleep Apnea: Yes - Neurological Hx Neurological Disorder: Yes Hx Seizures: Yes - HEENT Hx HEENT Disorder: No - Renal Hx Renal Disorder: Yes Hx Renal Failure: Yes - Endocrine/Metabolic Hx Endocrine Disorders: Yes Hx Diabetes Mellitus Type 1: Yes Hx Diabetes Mellitus Type 2: Yes Hx Hypothyroidism: Yes - Hematological/Oncological Hx Blood Disorders: Yes (sepsis) Hx Anemia: Yes (iron deficiency) Hx Cancer: Yes (left breast lumpectomy) Hx Chemotherapy: Yes - Integumentary Hx Dermatological Disorder: No - Musculoskeletal/Rheumatological Hx Musculoskeletal Disorders: Yes Hx Arthritis: Yes Hx Back Pain: Yes Hx Degenerative Joint Disease: Yes (Bilateral knee replacement) Hx Falls: Yes Hx Unsteady Gait: Yes - Gastrointestinal Hx Gastrointestinal Disorders: Yes Hx Gastroesophageal Reflux: Yes - Genitourinary/Gynecological Hx Genitourinary Disorders: Yes Hx Incontinence: Yes Hx Urinary Tract Infection: Yes - Psychiatric Hx Psychophysiologic Disorder: Yes Hx Anxiety: Yes - Surgical History Hx Cardiac Catheterization: Yes Hx Joint Replacement: Yes Hx Orthopedic Surgery: Yes - Anesthesia Hx Anesthesia Reactions: No Hx Malignant Hyperthermia: No - Suicidal Assessment Feels Threatened In Home Enviroment: No Family/Social History - Physician Review Nursing Documentation Reviewed: Yes Family/Social History: Unknown Family HX Smoking Status: Heavy Smoker > 10 Cigarettes Daily Hx Alcohol Use: Yes Hx Substance Use Treatment: No Allergies/Home Meds Allergies/Adverse Reactions: Allergies No Known Allergies Allergy (Verified 09/24/16 15:08) Review of Systems - Review of Systems Constitutional: Normal. absent: Fatigue, Fevers Eyes: Normal ENT: Normal. absent: Hearing Changes, Rhinorrhea Respiratory: Normal. absent: SOB Cardiovascular: Normal. absent: Chest Pain, Syncope Gastrointestinal: Normal, Stool Changes. absent: Abdominal Pain, Nausea, Vomiting Musculoskeletal: Normal Skin: Skin Lesions, Cellulitis Neurological: Normal. absent: Headache, Dizziness Endocrine: Normal Psychiatric: Normal. absent: Anxiety, Depression Physical Exam Vital Signs Reviewed: Yes Temperature: Afebrile Blood Pressure: Normal Pulse: Regular Respiratory Rate: Normal Appearance: Positive for: Non-Toxic, Comfortable Pain Distress: None Mental Status: Positive for: Alert and Oriented X 3 - Systems Exam Head: Present: Atraumatic, Normocephalic Extroacular Muscles: Present: EOMI Conjunctiva: Present: Normal Mouth: Present: Moist Mucous Membranes Neck: Present: Normal Range of Motion Respiratory/Chest: Present: Clear to Auscultation, Good Air Exchange. No: Respiratory Distress, Accessory Muscle Use Cardiovascular: Present: Regular Rate and Rhythm, Normal S1, S2. No: Murmurs Abdomen: Present: Normal Bowel Sounds. No: Tenderness, Distention, Peritoneal Signs Upper Extremity: Present: Normal Inspection. No: Cyanosis, Edema Lower Extremity: Present: Edema (bilateral lower legs swelling with skin xerosis ), NORMAL PULSES, Tenderness, Erythema, Other (left medial great toe ulceration with minimal clear fluid drainage) Neurological: Present: GCS=15, CN II-XII Intact, Speech Normal. No: Normal Sensory Function (slight decreased senosry function on the left foot) Skin: Present: Warm, Dry Psychiatric: Present: Alert, Oriented x 3, Normal Insight, Normal Concentration Vital Signs Temp Pulse Resp BP Pulse Ox 09/24/16 18:00 75 18 105/65 98 09/24/16 16:26 98.7 F 77 18 103/66 98 09/24/16 15:03 99 F 77 16 103/ 96 Medical Decision Making ED Course and Treatment: Seen and examined with resident. 71 year old F p/w infected diabetic foot ulcer. Failed outpatient treatment, requires further inpatient care. 1st digit area swollen, erythematous with ulceration. (Avery Matta) 09/24/16 16:34 -CBC, CMP -Left foot xray -IV vancomycin -Wound and blood cultures DDx: Infect diabetic foot ulcer, osteomyelitis 09/24/16 16:[address] Kirby, accepted patient under her service. Recommended ID and podiatry consults Prior visit: 07/16/16 for COPD exacerbation and AMS 71 year old female with past medical history of DM, COPD, CHF, anemia, CAD, and Afib presents with infected diabetic left great toe. Patient was treated with vancomycin and zosyn. Patient will be admitted to med/surg for further treatment. (Vicki Faye) - Lab Interpretations Lab Results: 09/24/16 16:00 09/24/16 16:00 Lab Results 09/24/16 17:00: Blood Type AB NEGATIVE, Antibody Screen Positive, Antibody Identification Pending, Crossmatch See Detail, BBK History Checked Patient has bt 09/24/16 16:00: Sodium 138, Potassium 3.8, Chloride 99, Carbon Dioxide 28, Anion Gap 15, BUN 46 H, Creatinine 1.1, Est GFR ( Amer) 60, Est GFR (Non- Af Amer) 49, Random Glucose 244 H, Calcium 9.3, Total Bilirubin 0.4, AST 15, ALT 20, Alkaline Phosphatase 68, Total Protein 6.2, Albumin 3.8, Globulin 2.4, Albumin/Globulin Ratio 1.6 09/24/16 16:00: WBC 9.3 D, RBC 2.71 L, Hgb 7.5 L, Hct 24.2 L, MCV 89.3, MCH 27.7, MCHC 31.0, RDW 17.1 H, Plt Count 273, MPV 9.8, Gran % 74.1 H, Lymph % ( Auto) 17.0 L, [place] % (Auto) 6.9 H, Eos % (Auto) 1.7, Baso % (Auto) 0.3, Gran # 6.86 H, Lymph # 1.6, [place] # 0.6, Eos # 0.2, Baso # 0.03 - RAD Interpretation Radiology Orders: 09/24/16 15:51 FOOT LEFT GREAT TOE ROUTINE [RAD] Stat - Medication Orders Current Medication Orders: Cefepime HCl (Maxipime 1gm) 1 gm in 100 mls @ 100 mls/hr IVPB Q12 WAYNE PRN Reason: Protocol Discontinued Medications Vancomycin HCl (Vancomycin 1gm) 1 gm in 250 mls @ 167 mls/hr IVPB STAT STA PRN Reason: Protocol Stop: 09/24/16 17:14 Last Admin: 09/24/16 16:37 Dose: 167 mls/hr Piperacillin Sod/Tazobactam Sod (Zosyn 3.375 In Ns 100ml) 100 mls @ 200 mls/hr IVPB STAT STA PRN Reason: Protocol Stop: 09/24/16 17:18 Last Admin: 09/24/16 18:18 Dose: 200 mls/hr - PA / NANNY/HOUSEHOLD MANAGER / Resident Statement / has reviewed & agrees with the documentation as recorded. / has examined the patient and agrees with the treatment plan. Disposition/Present on Arrival - Present on Arrival Any Indicators Present on Arrival: No History of DVT/PE: No History of Uncontrolled Diabetes: No Urinary Catheter: No History of Decub. Ulcer: No History Surgical Site Infection Following: None - Disposition Have Diagnosis and Disposition been Completed?: Yes Disposition Time: 17:02 - Disposition Diagnosis: Type 2 diabetes mellitus with diabetic foot infection Disposition: HOSPITALIZED Condition: STABLE Referrals: Edwige Kirby MD [Primary Care Provider] - Follow up with primary
[2016-09-24 16:33] LABS: BASO # 0.03 K/mm3 (0.0-2.0); BASO % 0.3 % (0.0-3.0); EOS # 0.2 (0.0-0.7); EOS % 1.7 % (1.5-5.0); GRAN # 6.86 (1.4-6.5); GRAN % 74.1 % (50.0-68.0); LYMPH # 1.6 (1.2-3.4); MEAN CELL VOLUME 89.3 fL (80.0-105.0); MEAN CORPUSCULAR HEMOGLOBIN 27.7 pg (25.0-35.0); MEAN PLATELET VOLUME 9.8 fl (7.0-11.0); MONO # 0.6 (0.1-0.6); MONO % 6.9 % (1.0-6.0); PLATELET COUNT 273 10^3/uL (120.0-450.0); RBC 2.71 10^6/uL (3.5-6.1); RED CELL DISTRIBUTION WIDTH 17.1 % (11.5-14.5); WHITE BLOOD COUNT 9.3 10^3/ul (4.5-11.0)
[2016-09-24 16:39] LABS: HEMOGLOBIN 7.5 gm/dL (12.0-16.0)
[2016-09-24] MEDS ORDERED: Piperacillin/Tazobact 3.375 gm 100 ML IVPB STA (16:49)
[2016-09-24 16:52] LABS: ALB/GLOB RATIO 1.6 (1.1-1.8); ALBUMIN 3.8 g/dL (3.0-4.8); CALCIUM 9.3 mg/dL (8.4-10.5)
[2016-09-24] MEDS ORDERED: Albuterol-Ipratrop 3 mg / 0.5 (3 ml) UD IH PRN (21:29)
[2016-09-24] MEDS ORDERED: Non Formulary Medication (Sitagliptin Phos/Metformin Hcl [Janumet 50-1,000 Mg Tablet] 1 EA PO SCH (21:30)
[2016-09-24 22:14] VITALS: BMI 38.9
[2016-09-24] MEDS ORDERED: Pneumococcal 23-Valent Vaccine IM ONE (22:15)
[2016-09-24] MEDS: Cefepime 1gm in NS 100ml 1 GM/100 ML BAG IVPB SCH (22:25)
[2016-09-25] MEDS: Levalbuterol 1.25 MG/3 ML Inhal Soln UD IH SCH ×4 (00:20→20:27)
[2016-09-25] MEDS: Pantoprazole 40 mg EC Tab PO SCH (06:16)
[2016-09-25 07:18] LABS: BASO # 0.02 K/mm3 (0.0-2.0); BASO % 0.2 % (0.0-3.0); EOS # 0.2 (0.0-0.7); EOS % 2.9 % (1.5-5.0); GRAN # 5.77 (1.4-6.5); GRAN % 71.8 % (50.0-68.0); LYMPH # 1.4 (1.2-3.4); LYMPH % 17.5 % (22.0-35.0); MEAN CELL VOLUME 89.9 fL (80.0-105.0); MEAN CORPUSCULAR HGB CONC 30.1 g/dl (31.0-37.0); MEAN PLATELET VOLUME 9.9 fl (7.0-11.0); MONO # 0.6 (0.1-0.6); MONO % 7.6 % (1.0-6.0); PLATELET COUNT 249 10^3/uL (120.0-450.0); RBC 2.96 10^6/uL (3.5-6.1); RED CELL DISTRIBUTION WIDTH 16.8 % (11.5-14.5)
--- NOTE | 2016-09-25 08:23 | RAD ---
PROCEDURE: Radiographs of the left great toe. TECHNIQUE:: AP radiograph of the left foot, with oblique and lateral view of the left great toe. COMPARISON: None. FINDINGS: BONES: Normal. No fracture. JOINTS: Minimal hallux valgus. No arthritis identified. SOFT TISSUES: Normal. OTHER FINDINGS: None. IMPRESSION: No acute fracture.
[2016-09-25] MEDS: Insulin Lispro (humaLOG) MEDIUM Coverage SC SCH ×4 (09:25→21:46)
[2016-09-25 10:32] LABS: INR 3.39 (0.93-1.08); PROTHROMBIN TIME 36.6 Seconds (9.9-11.8)
--- NOTE | 2016-09-25 10:53 | CP.PCM.CON ---
<Kylah Byrd - Last Filed: 09/25/16 10:50> History of Present Illness - History of Present Illness History of Present Illness: 71 year old female with a PMHx including COPD & CHF was seen at bedside with attending, Dr. Hoffman regarding L hallux ulceration. Patient has her legs hanging of her bed and no dressing to her left hallux. Patient admits she still smokes cigarettes but states that she is smoking less then before. She states that she had outpatient Abx but they did not help. She denies any n/v/f/c /sob/cp. Past Patient History - Infectious Disease Hx of Infectious Diseases: None - Tetanus Immunizations Tetanus Immunization: Unknown - Past Medical History & Family History Past Medical History?: Yes - Past Social History Smoking Status: Heavy Smoker > 10 Cigarettes Daily - CARDIAC Hx Cardiac Disorders: Yes Hx Cardia Arrhythmia: Yes (afib) Hx Circulatory Problems: Yes Hx Congestive Heart Failure: Yes Hx Hypercholesterolemia: Yes Hx Hypertension: Yes Hx Peripheral Edema: Yes (ble +3 pitting edema) Hx Peripheral Vascular Disease: Yes - PULMONARY Hx Chronic Obstructive Pulmonary Disease (COPD): Yes Hx Pneumonia: Yes Hx Respiratory Tract Infection: Yes Hx Sleep Apnea: Yes Other/Comment: home o2 and home nebulizer machine - NEUROLOGICAL Hx Neurological Disorder: Yes Hx Seizures: (denies seizures) - HEENT Hx HEENT Problems: No - RENAL Hx Chronic Kidney Disease: Yes Hx Renal Failure: Yes - ENDOCRINE/METABOLIC Hx Endocrine Disorders: Yes Hx Diabetes Mellitus Type 1: Yes Hx Diabetes Mellitus Type 2: Yes Hx Hypothyroidism: Yes - HEMATOLOGICAL/ONCOLOGICAL Hx Blood Disorders: Yes (sepsis) Hx Anemia: Yes (iron deficiency) Hx Cancer: Yes (left breast lumpectomy) Hx Chemotherapy: Yes - INTEGUMENTARY Hx Dermatological Problems: No Other/Comment: left great toe has no toenail, red purple swollen painful drainage clear fluid, foul smell, redness to ble, no toenail to right great toe - MUSCULOSKELETAL/RHEUMATOLOGICAL Hx Musculoskeletal Disorders: Yes Hx Arthritis: Yes Hx Back Pain: Yes Hx Degenerative Joint Disease: Yes (Bilateral knee replacement) Hx Falls: Yes (past) Hx Unsteady Gait: Yes (cane walker) - GASTROINTESTINAL Hx Gastrointestinal Disorders: Yes (obese) Hx Gastroesophageal Reflux: Yes - GENITOURINARY/GYNECOLOGICAL Hx Genitourinary Disorders: Yes Hx Incontinence: Yes Hx Urinary Tract Infection: Yes - PSYCHIATRIC Hx Psychophysiologic Disorder: Yes Hx Anxiety: Yes Hx Substance Use: No - SURGICAL HISTORY Hx Cardiac Catheterization: Yes Hx Hysterectomy: Yes Hx Joint Replacement: Yes Hx Orthopedic Surgery: Yes Other/Comment: left breast lumpectomy, b/l knee replacement - ANESTHESIA Hx Anesthesia Reactions: No Hx Malignant Hyperthermia: No Meds Allergies/Adverse Reactions: Allergies Allergy/AdvReac Type Severity Reaction Status Date / Time No Known Allergies Allergy Verified 09/24/16 15:08 - Medications Medications: Current Medications Albuterol/Ipratropium (Duoneb 3 Mg/0.5 Mg (3 Ml) Ud) 3 ml IH Q2H PRN PRN Reason: Shortness of Breath Alprazolam (Xanax) 0.25 mg PO HS WAYNE PRN Reason: Protocol Stop: 10/01/16 22:01 Last Admin: 09/24/16 22:50 Dose: 0.25 mg Aspirin (Ecotrin) 81 mg PO 0800 [facility] Last Admin: 09/25/16 09:25 Dose: 81 mg Furosemide (Lasix) 40 mg IVP DAILY WAYNE Glimepiride (Amaryl) 4 mg PO ACBD [facility] Last Admin: 09/25/16 09:25 Dose: 4 mg Hydralazine HCl (Apresoline) 50 mg PO BID [facility] Last Admin: 09/24/16 22:47 Dose: Not Given Cefepime HCl (Maxipime 1gm) 1 gm in 100 mls @ 100 mls/hr IVPB Q12 WAYNE PRN Reason: Protocol Last Admin: 09/24/16 22:25 Dose: 100 mls/hr Linezolid (Zyvox 600mg/300ml D5w) 600 mg in 300 mls @ 200 mls/hr IVPB Q12 WAYNE PRN Reason: Protocol Stop: 10/02/16 10:01 Insulin Human Lispro (Humalog Med) 0 units SC ACHS WAYNE PRN Reason: Protocol Last Admin: 09/25/16 09:25 Dose: 1 units Isosorbide Mononitrate (Imdur) 60 mg PO DAILY [facility] Levalbuterol HCl (Xopenex) 1.25 mg IH [id number] [facility] Last Admin: 09/25/16 07:48 Dose: 1.25 mg Metformin HCl (Glucophage) 500 mg PO BID [facility] Last Admin: 09/24/16 22:48 Dose: 500 mg Nadolol (Corgard) 10 mg PO BID [facility] Last Admin: 09/24/16 22:47 Dose: Not Given Nystatin (Mycostatin Cream) 0 ea TOP TID [facility] Pantoprazole Sodium (Protonix Ec Tab) 40 mg PO 629 [facility] Last Admin: 09/25/16 06:16 Dose: 40 mg Potassium Chloride (Klor-Con 10) 10 meq PO DAILY [facility] Sitagliptin Phosphate (Januvia) 50 mg PO DAILY [facility] Tiotropium [place] (Spiriva) 18 mcg IH DAILY [facility] Valsartan (Diovan) 320 mg PO DAILY [facility] Physical Exam - Constitutional Appears: No Acute Distress, Chronically Ill - Extremities Exam Additional comments: Lower extremity focused exam: VASC: Non-palpable pedal pulses b/l. +1 pitting edema noted to b/l LE. CFT < 4 seconds to all digits. Skin temperature warm to cool from proximal to distal b/ l. DERM: ulceration noted to the medial aspect of the left great toe, with scant amount of serous drainage noted, periwound is erythematous. Mild Xerosis noted to bilateral lower extremities. NEURO: grossly diminished ORTHO: No pain on palpation of distal digits b/l. - Neurological Exam Neurological exam: Alert - Psychiatric Exam Psychiatric exam: Normal Affect, Normal Mood Results - Vital Signs Recent Vital Signs: Last Vital Signs Temp 98.4 F 09/25/16 08:08 Pulse 74 09/25/16 08:08 Resp 20 09/25/16 08:08 BP 134/47 L 09/25/16 08:08 Pulse Ox 95 09/25/16 08:08 - Labs Result Diagrams: 09/25/16 06:45 09/24/16 16:00 Labs: Laboratory Results - last 24 hr 09/25/16 09/25/16 06:45 10:20 WBC 8.0 RBC 2.96 L Hgb 8.0 L Hct 26.6 L MCV 89.9 MCH 27.0 MCHC 30.1 L RDW 16.8 H Plt Count 249 MPV 9.9 Gran % 71.8 H Lymph % (Auto) 17.5 L [place] % (Auto) 7.6 H Eos % (Auto) 2.9 Baso % (Auto) 0.2 Gran # 5.77 Lymph # 1.4 [place] # 0.6 Eos # 0.2 Baso # 0.02 ESR 75 H PT 36.6 H* INR 3.39 H Assessment & Plan - Assessment and Plan (Free Text) Assessment: 71 year old female with left great toe ulceration secondary to DM Plan: patient examined and evaluated with attending, Dr. Hoffman chart, labs, vitals reviewed radiographs reviewed-no signs of acute fracture noted wound culture pending left hallux dressed with DSD lotion applied to legs b/l podiatry will continue to follow patient while in house <Nikia Hoffman - Last Filed: 09/27/16 14:52> Meds - Medications Medications: Current Medications Albuterol/Ipratropium (Duoneb 3 Mg/0.5 Mg (3 Ml) Ud) 3 ml IH Q2H PRN PRN Reason: Shortness of Breath Alprazolam (Xanax) 0.25 mg PO HS WAYNE PRN Reason: Protocol Stop: 10/01/16 22:01 Last Admin: 09/26/16 21:44 Dose: 0.25 mg Aspirin (Ecotrin) 81 mg PO 0800 [facility] Last Admin: 09/26/16 08:19 Dose: 81 mg Enoxaparin Sodium (Lovenox) 70 mg SC Q12H WAYNE PRN Reason: Protocol Furosemide (Lasix) 40 mg IVP DAILY [facility] Last Admin: 09/27/16 10:20 Dose: 40 mg Glimepiride (Amaryl) 4 mg PO ACBD [facility] Last Admin: 09/26/16 16:19 Dose: 4 mg Hydralazine HCl (Apresoline) 50 mg PO BID [facility] Last Admin: 09/27/16 10:19 Dose: 50 mg Linezolid (Zyvox 600mg/300ml D5w) 600 mg in 300 mls @ 200 mls/hr IVPB Q12 WAYNE PRN Reason: Protocol Stop: 10/02/16 10:01 Last Admin: 09/27/16 10:22 Dose: 200 mls/hr Sodium Chloride (Sodium Chloride 0.45%) 1,000 mls @ 80 mls/hr IV .[id number] [facility] Stop: 09/28/16 12:00 Last Admin: 09/27/16 10:22 Dose: 80 mls/hr Insulin Human Lispro (Humalog Med) 0 units SC ACHS WAYNE PRN Reason: Protocol Last Admin: 09/27/16 12:00 Dose: Not Given Isosorbide Mononitrate (Imdur) 60 mg PO DAILY [facility] Last Admin: 09/27/16 10:21 Dose: 60 mg Levalbuterol HCl (Xopenex) 1.25 mg IH [id number] [facility] Last Admin: 09/27/16 13:43 Dose: Not Given Metformin HCl (Glucophage) 500 mg PO BID [facility] Last Admin: 09/27/16 10:00 Dose: Not Given Nadolol (Corgard) 10 mg PO BID [facility] Last Admin: 09/27/16 10:20 Dose: 10 mg Nystatin (Mycostatin Cream) 0 ea TOP TID [facility] Last Admin: 09/27/16 10:21 Dose: 1 dose Pantoprazole Sodium (Protonix Ec Tab) 40 mg PO 0630 [facility] Last Admin: 09/27/16 05:36 Dose: 40 mg Potassium Chloride (Klor-Con 10) 10 meq PO DAILY [facility] Last Admin: 09/27/16 10:20 Dose: 10 meq Sitagliptin Phosphate (Januvia) 50 mg PO DAILY [facility] Last Admin: 09/27/16 10:21 Dose: Not Given Tiotropium [place] (Spiriva) 18 mcg IH DAILY [facility] Last Admin: 09/27/16 10:19 Dose: 18 mcg Tramadol/Acetaminophen (Ultracet 37.5/325 Mg) 1 tab PO Q6H PRN PRN Reason: Pain, moderate (4-7) Valsartan (Diovan) 320 mg PO DAILY [facility] Last Admin: 09/27/16 10:19 Dose: 320 mg Results - Vital Signs Recent Vital Signs: Last Vital Signs Temp 97.7 F 09/27/16 08:00 Pulse 75 09/27/16 08:00 Resp 18 09/27/16 08:00 BP 140/78 09/27/16 10:20 Pulse Ox 97 09/27/16 08:00 - Labs Result Diagrams: 09/27/16 06:30 09/27/16 06:30 Labs: Laboratory Results - last 24 hr 09/27/16 09/27/16 09/27/16 06:30 06:30 06:30 WBC 8.7 RBC 3.16 L Hgb 8.7 L Hct 28.1 L MCV 88.9 MCH 27.5 MCHC 31.0 RDW 16.5 H Plt Count 244 MPV 10.2 PT 18.1 H INR 1.68 H APTT 33.6 H Sodium 138 Potassium 3.8 Chloride 100 Carbon Dioxide 29 Anion Gap 13 BUN 31 H Creatinine 0.8 Est GFR ( Amer) > 60 Est GFR (Non-Af Amer) > 60 Random Glucose 64 L Calcium 9.2 Attending/Attestation - Attestation I have personally seen and examined this patient.: Yes I have fully participated in the care of the patient.: Yes I have reviewed all pertinent clinical information: Yes
[2016-09-25] MEDS: Cefepime 1gm in NS 100ml 1 GM/100 ML BAG IVPB SCH ×2 (10:57→21:42)
[2016-09-25] MEDS: Nystatin 100,000 Units/gm Cream(15 gm) TOP SCH ×2 (11:07→16:10)
[2016-09-25] MEDS: Potassium Chloride 10 mEq ER Tab PO SCH (11:07)
[2016-09-25] MEDS: Tiotropium 18 mcg Cap For Inhalation IH SCH (11:08)
--- NOTE | 2016-09-25 11:38 | CP.PCM.CON ---
History of Present Illness - History of Present Illness History of Present Illness: 71 year old female with PMH of obesity with BMI 39, CAD, GERD, arthritis, history of bilateral knee replacements, chronic CHF, COPD, DM, history of breast CA, History of Strep bovis bacteremia (2012), S/P Port-a-cath placement, history of Group G Strep bacteremia, history of E. coli UTI, history of left sided HCAP, S/P methicillin-resistant coagulase negative staph bacteremia, probably port infection S/P removal of the port came in to [facility] because of worsening left hallux pain and ulceration. She apparently kicked a rock on a street about 3 weeks ago and developed a wound from it. The wound continued to worsen and the she started seeing her Account Supervisor for local wound care and was given PO antibiotics but the wound continued to worsen. The patient denies fever or chills, no headache or dizziness, no nausea or vomiting , no sore throat, no dysphagia, no diarrhea, no abdominal pain, no diarrhea, no dysuria, no chest pain. She also denies animal contacts and denies soaking her feet in water. Infectious Diseases consult is requested to further evaluate and manage. Review of Systems - Review of Systems All systems: reviewed and no additional remarkable complaints except (as per HPI ) Past Patient History - Infectious Disease Hx of Infectious Diseases: None - Tetanus Immunizations Tetanus Immunization: Unknown - Past Medical History & Family History Past Medical History?: Yes - Past Social History Smoking Status: Heavy Smoker > 10 Cigarettes Daily - CARDIAC Hx Cardiac Disorders: Yes Hx Cardia Arrhythmia: Yes Hx Circulatory Problems: Yes Hx Congestive Heart Failure: Yes Hx Hypertension: Yes Hx Peripheral Edema: Yes - PULMONARY Hx Chronic Obstructive Pulmonary Disease (COPD): Yes Hx Pneumonia: Yes Hx Respiratory Tract Infection: Yes Hx Sleep Apnea: Yes - NEUROLOGICAL Hx Neurological Disorder: Yes Hx Seizures: Yes - HEENT Hx HEENT Problems: No - RENAL Hx Chronic Kidney Disease: Yes Hx Renal Failure: Yes - ENDOCRINE/METABOLIC Hx Endocrine Disorders: Yes Hx Diabetes Mellitus Type 1: Yes Hx Diabetes Mellitus Type 2: Yes Hx Hypothyroidism: Yes - HEMATOLOGICAL/ONCOLOGICAL Hx Blood Disorders: Yes (sepsis) Hx Anemia: Yes (iron deficiency) Hx Cancer: Yes (left breast lumpectomy) Hx Chemotherapy: Yes - INTEGUMENTARY Hx Dermatological Problems: No - MUSCULOSKELETAL/RHEUMATOLOGICAL Hx Musculoskeletal Disorders: Yes Hx Arthritis: Yes Hx Back Pain: Yes Hx Degenerative Joint Disease: Yes (Bilateral knee replacement) Hx Falls: Yes Hx Unsteady Gait: Yes - GASTROINTESTINAL Hx Gastrointestinal Disorders: Yes Hx Gastroesophageal Reflux: Yes - GENITOURINARY/GYNECOLOGICAL Hx Genitourinary Disorders: Yes Hx Incontinence: Yes Hx Urinary Tract Infection: Yes - PSYCHIATRIC Hx Psychophysiologic Disorder: Yes Hx Anxiety: Yes - SURGICAL HISTORY Hx Cardiac Catheterization: Yes Hx Joint Replacement: Yes Hx Orthopedic Surgery: Yes - ANESTHESIA Hx Anesthesia Reactions: No Hx Malignant Hyperthermia: No Meds Allergies/Adverse Reactions: Allergies Allergy/AdvReac Type Severity Reaction Status Date / Time No Known Allergies Allergy Verified 09/24/16 15:08 Physical Exam - Constitutional Appears: Non-toxic, No Acute Distress - Head Exam Head Exam: NORMAL INSPECTION - Neck Exam Neck exam: Negative for: Meningismus - Respiratory Exam Respiratory Exam: Decreased Breath Sounds - Cardiovascular Exam Cardiovascular Exam: +S1, +S2 - GI/Abdominal Exam GI & Abdominal Exam: Soft. absent: Tenderness - Extremities Exam Additional comments: left hallux with medial ulceration, dry, tender to touch Results - Vital Signs Recent Vital Signs: Last Vital Signs Temp 98.7 F 09/24/16 16:26 Pulse 77 09/24/16 16:26 Resp 18 09/24/16 16:26 BP 103/66 09/24/16 16:26 Pulse Ox 98 09/24/16 16:26 - Labs Result Diagrams: 09/25/16 06:45 09/24/16 16:00 Assessment & Plan - Assessment and Plan (Free Text) Plan: Assessment Probable infected diabetic ulceration of the left hallux associated with trauma R/O peripheral vascular disease, R/O osteomyelitis S/P Sepsis with acute hypoxic respiratory failure secondary to left-sided healthcare-associated pneumonia with possible gram positive cocci and/or gram negative bacilli, clinically improved and S/P treatment as well as sepsis from persistent methicillin-resistant coagulase negative staph bacteremia , probably port infection S/P removal of the port POD #3 history of Group G Strep bacteremia history of E. coli UTI history of healthcare-associated pneumonia acute renal failure obesity with BMI 38 CAD GERD arthritis history of bilateral knee replacements chronic CHF COPD DM history of breast CA History of Strep bovis bacteremia (2012) S/P Port-a-cath placement Plan started patient on Zyvox and Cefepime pending wound cx and blood cx; Follow up Podiatry plans - recommend MRI of left foot and RAMON measurements will monitor clinically
[2016-09-25] MEDS: Linezolid 600 mg in D5W 300 ml 600 MG/300 ML BAG IVPB SCH ×2 (12:16→23:46)
--- NOTE | 2016-09-25 14:45 | US ---
PROCEDURE: Lower extremity RAMON exam HISTORY: Peripheral vascular disease with pain and claudication. Smoker. Diabetes. PHYSICIAN(S): Maldonado Barnett MD. FINDINGS: The resting RAMON's are inaccurate due to calcification: Right, 0.74 and left, 0.74 The brachial systolic pressures are symmetric. The low thigh PVR waveforms are mildly to moderately blunted. No obvious pressure gradient is seen. The appearance is suggestive of aortoiliac disease. The calf PVR waveforms are moderately blunted bilaterally. They do not augment. The findings are consistent with bilateral SFA disease The ankle and metatarsal waveforms are moderately to severely blunted and symmetric. This is consistent with bilateral tibial occlusive disease. IMPRESSION: 1. Aortoiliac disease. 2. Bilateral SFA disease. 3. Bilateral tibial occlusive disease. 4. If clinically indicated, further evaluation with CTA runoff, MRA runoff, or conventional arteriogram can be considered.
--- NOTE | 2016-09-25 20:56 | MRI ---
EXAM: MR Left Lower Extremity Without Intravenous Contrast, Foot CLINICAL HISTORY: The patient age is 71 years old and is female; Pain and injury or trauma; Injury As per patient she step on something. ? Osteo left toes; Initial encounter; Wound; Foot and toes; Left great; With foreign body; Additional info: Rule out osteomyelitis of the left hallux Facility exam id and description: Mri footwoconl foot w/o contrast left TECHNIQUE: Multiplanar magnetic resonance images of the left foot without intravenous contrast. EXAM DATE/TIME: 09/25/2016 11:39 AM COMPARISON: DX - FOOT LEFT GREAT TOE ROUTINE 09/24/2016 8:03:47 PM FINDINGS: LIGAMENTS: Medial collateral: No visible acute tear. Lateral collateral: No visible acute tear. Lisfranc: No visualized acute tear. TENDONS: No visualized acute tear of the flexor and extensor tendons of the forefoot. Muscles: No acute abnormality. Fluid: No significant joint effusion. Sinus tarsi: Mild edema is identified within the sinus tarsi. Plantar fascia: No visualized acute tear. Bones/joints: There is no acute marrow edema involving the visualized foot to suggest osteomyelitis. A bipartite medial subhallux sesamoid bone is visualized. There is dorsal spurring of the talus and midfoot. Soft tissues: There is mild soft tissue swelling at the dorsum of the foot, as well as the medial mid to hindfoot. This is consistent with cellulitis in the appropriate clinical setting. Other findings: There is mild valgus deviation of the great toe. This study concentrates on the mid or forefoot. There is a failure of fat saturation involving the toes on the T2-weighted sequence. IMPRESSION: 1. There is mild soft tissue swelling at the dorsum of the foot, as well as the medial mid to hindfoot. This is consistent with cellulitis in the appropriate clinical setting. 2. There is no acute marrow edema involving the visualized foot to suggest osteomyelitis. 3. There is mild valgus deviation of the great toe. 4. Degenerative changes are noted above. 5. Additional findings described above.
[2016-09-26] MEDS: Levalbuterol 1.25 MG/3 ML Inhal Soln UD IH SCH ×4 (02:09→20:00)
[2016-09-26] MEDS: Pantoprazole 40 mg EC Tab PO SCH (06:16)
[2016-09-26] MEDS: Insulin Lispro (humaLOG) MEDIUM Coverage SC SCH ×4 (07:56→23:18)
[2016-09-26 08:51] LABS: HEMOGLOBIN 9.1 gm/dL (12.0-16.0); MEAN CELL VOLUME 90.6 fL (80.0-105.0); MEAN CORPUSCULAR HEMOGLOBIN 28.4 pg (25.0-35.0); MEAN CORPUSCULAR HGB CONC 31.4 g/dl (31.0-37.0); MEAN PLATELET VOLUME 9.6 fl (7.0-11.0); RBC 3.2 10^6/uL (3.5-6.1); RED CELL DISTRIBUTION WIDTH 16.5 % (11.5-14.5); WHITE BLOOD COUNT 10.6 10^3/ul (4.5-11.0)
[2016-09-26 09:01] LABS: ALB/GLOB RATIO 1.5 (1.1-1.8); ALBUMIN 3.7 g/dL (3.0-4.8); ALT/SGPT 22 U/L (7-56); AST/SGOT 18 U/L (15-39); BLOOD UREA NITROGEN 33 mg/dL (7-21); GFR AFRICAN-AMERICAN > 60; GFR NON-AFRICAN AMERICAN > 60
[2016-09-26 09:41] LABS: INR 3.15 (0.93-1.08); PARTIAL THROMBOPLASTIN TIME 40.6 Seconds (23.7-30.8)
[2016-09-26] MEDS: Linezolid 600 mg in D5W 300 ml 600 MG/300 ML BAG IVPB SCH ×2 (10:36→21:44)
[2016-09-26] MEDS: Potassium Chloride 10 mEq ER Tab PO SCH (10:45)
[2016-09-26] MEDS: Tiotropium 18 mcg Cap For Inhalation IH SCH (10:45)
--- NOTE | 2016-09-26 11:18 | CP.PCM.PN ---
Subjective - Date & Time of Evaluation Date of Evaluation: 09/26/16 Time of Evaluation: 10:05 - Subjective Subjective: Less pain in the foot, comfortable, afebrile. Objective - Vital Signs/Intake and Output Vital Signs (last 24 hours): Temp Pulse Resp BP Pulse Ox 98.0 F 54 L 20 164/45 H 94 L 09/26/16 07:30 09/26/16 07:30 09/26/16 07:30 09/26/16 07:30 09/26/16 07:30 Intake and Output: 09/26/16 09/26/16 06:59 18:59 Intake Total 780 405 Balance 780 405 - Medications Medications: Current Medications Albuterol/Ipratropium (Duoneb 3 Mg/0.5 Mg (3 Ml) Ud) 3 ml IH Q2H PRN PRN Reason: Shortness of Breath Alprazolam (Xanax) 0.25 mg PO HS [facility] PRN Reason: Protocol Stop: 10/01/16 22:01 Last Admin: 09/25/16 23:50 Dose: Not Given Aspirin (Ecotrin) 81 mg PO 0800 [facility] Last Admin: 09/25/16 09:25 Dose: 81 mg Furosemide (Lasix) 40 mg IVP DAILY [facility] Last Admin: 09/25/16 10:57 Dose: 40 mg Glimepiride (Amaryl) 4 mg PO ACBD [facility] Last Admin: 09/25/16 17:23 Dose: 4 mg Hydralazine HCl (Apresoline) 50 mg PO BID [facility] Last Admin: 09/25/16 17:23 Dose: 50 mg Cefepime HCl (Maxipime 1gm) 1 gm in 100 mls @ 100 mls/hr IVPB Q12 [facility] PRN Reason: Protocol Last Admin: 09/25/16 21:42 Dose: 100 mls/hr Linezolid (Zyvox 600mg/300ml D5w) 600 mg in 300 mls @ 200 mls/hr IVPB Q12 [facility] PRN Reason: Protocol Stop: 10/02/16 10:01 Last Admin: 09/25/16 23:46 Dose: 200 mls/hr Insulin Human Lispro (Humalog Med) 0 units SC ACHS [facility] PRN Reason: Protocol Last Admin: 09/26/16 07:56 Dose: Not Given Isosorbide Mononitrate (Imdur) 60 mg PO DAILY [facility] Last Admin: 09/25/16 11:07 Dose: 60 mg Levalbuterol HCl (Xopenex) 1.25 mg IH [id number] [facility] Last Admin: 09/26/16 07:21 Dose: 1.25 mg Metformin HCl (Glucophage) 500 mg PO BID [facility] Last Admin: 09/25/16 17:23 Dose: 500 mg Nadolol (Corgard) 10 mg PO BID [facility] Last Admin: 09/25/16 17:23 Dose: 10 mg Nystatin (Mycostatin Cream) 0 ea TOP TID [facility] Last Admin: 09/25/16 16:10 Dose: Not Given Pantoprazole Sodium (Protonix Ec Tab) 40 mg PO 0630 [facility] Last Admin: 09/26/16 06:16 Dose: 40 mg Potassium Chloride (Klor-Con 10) 10 meq PO DAILY [facility] Last Admin: 09/25/16 11:07 Dose: 10 meq Sitagliptin Phosphate (Januvia) 50 mg PO DAILY [facility] Last Admin: 09/25/16 11:07 Dose: 50 mg Tiotropium [place] (Spiriva) 18 mcg IH DAILY [facility] Last Admin: 09/25/16 11:08 Dose: 18 mcg Valsartan (Diovan) 320 mg PO DAILY [facility] Last Admin: 09/25/16 11:06 Dose: 320 mg - Labs Labs: 09/25/16 06:45 PT 36.6 Seconds (9.9-11.8) H* 09/25/16 10:20 INR 3.39 (0.93-1.08) H 09/25/16 10:20 - Constitutional Appears: Non-toxic, No Acute Distress - Head Exam Head Exam: NORMAL INSPECTION - Neck Exam Neck Exam: absent: Lymphadenopathy, Meningismus - Respiratory Exam Respiratory Exam: Decreased Breath Sounds - Cardiovascular Exam Cardiovascular Exam: +S1, +S2 - GI/Abdominal Exam GI & Abdominal Exam: Soft. absent: Tenderness - Extremities Exam Additional comments: left hallux with dry dressings in place Assessment and Plan - Assessment and Plan (Free Text) Plan: Assessment Probable infected diabetic ulceration of the left hallux associated with trauma with probable peripheral vascular disease - no evidence of osteomyelitis on MRI S/P Sepsis with acute hypoxic respiratory failure secondary to left-sided healthcare-associated pneumonia with possible gram positive cocci and/or gram negative bacilli, clinically improved and S/P treatment as well as sepsis from persistent methicillin-resistant coagulase negative staph bacteremia , probably port infection S/P removal of the port history of Group G Strep bacteremia history of E. coli UTI history of healthcare-associated pneumonia acute renal failure obesity with BMI 38 CAD GERD arthritis history of bilateral knee replacements chronic CHF COPD DM history of breast CA History of Strep bovis bacteremia (2012) S/P Port-a-cath placement Plan continue Zyvox and Cefepime day 2 pending final wound cx results (so far growing Staph aureus); blood cx are negative; Follow up Podiatry plans -follow up RAMON measurements will monitor clinically
--- NOTE | 2016-09-26 11:49 | CP.PCM.PN ---
<Kylah Byrd - Last Filed: 09/26/16 11:46> Subjective - Date & Time of Evaluation Date of Evaluation: 09/26/16 Time of Evaluation: 11:46 - Subjective Subjective: 71 year old female was seen at bedside regarding left hallux ulceration. Dressing is clean, dry, intact to left foot. She admits to some pain to her left foot. She denies any n/v/f/c/sob/cp. Objective - Vital Signs/Intake and Output Vital Signs (last 24 hours): Temp Pulse Resp BP Pulse Ox 98.0 F 69 20 132/44 L 94 L 09/26/16 07:30 09/26/16 10:42 09/26/16 07:30 09/26/16 10:42 09/26/16 07:30 Intake and Output: 09/26/16 09/26/16 06:59 18:59 Intake Total 780 405 Balance 780 405 - Medications Medications: Current Medications Albuterol/Ipratropium (Duoneb 3 Mg/0.5 Mg (3 Ml) Ud) 3 ml IH Q2H PRN PRN Reason: Shortness of Breath Alprazolam (Xanax) 0.25 mg PO HS [facility] PRN Reason: Protocol Stop: 10/01/16 22:01 Last Admin: 09/25/16 23:50 Dose: Not Given Aspirin (Ecotrin) 81 mg PO 0800 [facility] Last Admin: 09/26/16 08:19 Dose: 81 mg Furosemide (Lasix) 40 mg IVP DAILY [facility] Last Admin: 09/26/16 10:20 Dose: 40 mg Glimepiride (Amaryl) 4 mg PO ACBD [facility] Last Admin: 09/26/16 08:19 Dose: 4 mg Hydralazine HCl (Apresoline) 50 mg PO BID [facility] Last Admin: 09/26/16 10:42 Dose: 50 mg Cefepime HCl (Maxipime 1gm) 1 gm in 100 mls @ 100 mls/hr IVPB Q12 [facility] PRN Reason: Protocol Last Admin: 09/25/16 21:42 Dose: 100 mls/hr Linezolid (Zyvox 600mg/300ml D5w) 600 mg in 300 mls @ 200 mls/hr IVPB Q12 [facility] PRN Reason: Protocol Stop: 10/02/16 10:01 Last Admin: 09/26/16 10:36 Dose: 200 mls/hr Insulin Human Lispro (Humalog Med) 0 units SC ACHS [facility] PRN Reason: Protocol Last Admin: 09/26/16 07:56 Dose: Not Given Isosorbide Mononitrate (Imdur) 60 mg PO DAILY [facility] Last Admin: 09/26/16 10:44 Dose: 60 mg Levalbuterol HCl (Xopenex) 1.25 mg IH [id number] [facility] Last Admin: 09/26/16 07:21 Dose: 1.25 mg Metformin HCl (Glucophage) 500 mg PO BID [facility] Last Admin: 09/26/16 10:43 Dose: 500 mg Nadolol (Corgard) 10 mg PO BID [facility] Last Admin: 09/26/16 10:42 Dose: 10 mg Nystatin (Mycostatin Cream) 0 ea TOP TID [facility] Last Admin: 09/25/16 16:10 Dose: Not Given Pantoprazole Sodium (Protonix Ec Tab) 40 mg PO 0630 [facility] Last Admin: 09/26/16 06:16 Dose: 40 mg Potassium Chloride (Klor-Con 10) 10 meq PO DAILY [facility] Last Admin: 09/26/16 10:45 Dose: 10 meq Sitagliptin Phosphate (Januvia) 50 mg PO DAILY [facility] Last Admin: 09/26/16 10:44 Dose: 50 mg Tiotropium [place] (Spiriva) 18 mcg IH DAILY [facility] Last Admin: 09/26/16 10:45 Dose: 18 mcg Valsartan (Diovan) 320 mg PO DAILY [facility] Last Admin: 09/26/16 10:43 Dose: 320 mg - Labs Labs: 09/26/16 08:20 09/26/16 08:20 PT 34.0 Seconds (9.9-11.8) H* 09/26/16 09:00 INR 3.15 (0.93-1.08) H 09/26/16 09:00 APTT 40.6 Seconds (23.7-30.8) H 09/26/16 09:00 - Constitutional Appears: No Acute Distress, Chronically Ill - Extremities Exam Additional comments: Lower extremity focused exam: VASC: Non-palpable pedal pulses b/l. +1 pitting edema noted to b/l LE. CFT < 4 seconds to all digits. Skin temperature cool to cool from proximal to distal b/ l. DERM: Unstageable ulceration noted to the medial aspect of the left great toe measure approximately 1.2 cm by 2 cm with scant amount of serous drainage noted , periwound is erythematous. Mild Xerosis noted to bilateral lower extremities. NEURO: grossly diminished ORTHO: No pain on palpation of distal digits b/l. - Neurological Exam Neurological Exam: Alert, Awake - Psychiatric Exam Psychiatric exam: Normal Affect, Normal Mood Assessment and Plan - Assessment and Plan (Free Text) Assessment: 71 year old female with left great toe ulceration secondary to DM Plan: patient examined and evaluated discussed with attending, Dr. Henriquez chart, labs, vitals reviewed radiographs reviewed-no signs of acute fracture noted wound culture pending continue ivab per ID left hallux dressed with betadine, DSD lotion applied to legs b/l podiatry will continue to follow patient while in house <Deric Henriquez - Last Filed: 09/26/16 12:18> Objective - Vital Signs/Intake and Output Vital Signs (last 24 hours): Temp Pulse Resp BP Pulse Ox 98.0 F 69 20 132/44 L 94 L 09/26/16 07:30 09/26/16 10:42 09/26/16 07:30 09/26/16 10:42 09/26/16 07:30 Intake and Output: 09/26/16 09/26/16 06:59 18:59 Intake Total 780 405 Balance 780 405 - Medications Medications: Current Medications Albuterol/Ipratropium (Duoneb 3 Mg/0.5 Mg (3 Ml) Ud) 3 ml IH Q2H PRN PRN Reason: Shortness of Breath Alprazolam (Xanax) 0.25 mg PO HS [facility] PRN Reason: Protocol Stop: 10/01/16 22:01 Last Admin: 09/25/16 23:50 Dose: Not Given Aspirin (Ecotrin) 81 mg PO 0800 [facility] Last Admin: 09/26/16 08:19 Dose: 81 mg Furosemide (Lasix) 40 mg IVP DAILY [facility] Last Admin: 09/26/16 10:20 Dose: 40 mg Glimepiride (Amaryl) 4 mg PO ACBD [facility] Last Admin: 09/26/16 08:19 Dose: 4 mg Hydralazine HCl (Apresoline) 50 mg PO BID [facility] Last Admin: 09/26/16 10:42 Dose: 50 mg Cefepime HCl (Maxipime 1gm) 1 gm in 100 mls @ 100 mls/hr IVPB Q12 [facility] PRN Reason: Protocol Last Admin: 09/25/16 21:42 Dose: 100 mls/hr Linezolid (Zyvox 600mg/300ml D5w) 600 mg in 300 mls @ 200 mls/hr IVPB Q12 [facility] PRN Reason: Protocol Stop: 10/02/16 10:01 Last Admin: 09/26/16 10:36 Dose: 200 mls/hr Insulin Human Lispro (Humalog Med) 0 units SC ACHS [facility] PRN Reason: Protocol Last Admin: 09/26/16 12:03 Dose: 3 units Isosorbide Mononitrate (Imdur) 60 mg PO DAILY [facility] Last Admin: 09/26/16 10:44 Dose: 60 mg Levalbuterol HCl (Xopenex) 1.25 mg IH [id number] [facility] Last Admin: 09/26/16 07:21 Dose: 1.25 mg Metformin HCl (Glucophage) 500 mg PO BID [facility] Last Admin: 09/26/16 10:43 Dose: 500 mg Nadolol (Corgard) 10 mg PO BID [facility] Last Admin: 09/26/16 10:42 Dose: 10 mg Nystatin (Mycostatin Cream) 0 ea TOP TID [facility] Last Admin: 09/26/16 12:08 Dose: Not Given Pantoprazole Sodium (Protonix Ec Tab) 40 mg PO 0630 [facility] Last Admin: 09/26/16 06:16 Dose: 40 mg Potassium Chloride (Klor-Con 10) 10 meq PO DAILY [facility] Last Admin: 09/26/16 10:45 Dose: 10 meq Sitagliptin Phosphate (Januvia) 50 mg PO DAILY [facility] Last Admin: 09/26/16 10:44 Dose: 50 mg Tiotropium [place] (Spiriva) 18 mcg IH DAILY [facility] Last Admin: 09/26/16 10:45 Dose: 18 mcg Valsartan (Diovan) 320 mg PO DAILY [facility] Last Admin: 09/26/16 10:43 Dose: 320 mg - Labs Labs: 09/26/16 08:20 09/26/16 08:20 PT 34.0 Seconds (9.9-11.8) H* 09/26/16 09:00 INR 3.15 (0.93-1.08) H 09/26/16 09:00 APTT 40.6 Seconds (23.7-30.8) H 09/26/16 09:00 Attending/Attestation - Attestation I have personally seen and examined this patient.: Yes I have fully participated in the care of the patient.: Yes I have reviewed all pertinent clinical information, including history, physical exam and plan: Yes
[2016-09-26] MEDS: Nystatin 100,000 Units/gm Cream(15 gm) TOP SCH ×2 (12:08→14:19)
[2016-09-26] MEDS: Cefepime 1gm in NS 100ml 1 GM/100 ML BAG IVPB SCH ×2 (13:23→21:43)
[2016-09-26] MEDS ORDERED: Phytonadione 10 mg/ml Inj (Adult) SC ONE (18:30)
--- NOTE | 2016-09-26 18:37 | CP.PCM.CON ---
Past Patient History - Infectious Disease Hx of Infectious Diseases: None - Tetanus Immunizations Tetanus Immunization: Unknown - Past Medical History & Family History Past Medical History?: Yes - Past Social History Smoking Status: Heavy Smoker > 10 Cigarettes Daily - CARDIAC Hx Cardiac Disorders: Yes Hx Cardia Arrhythmia: Yes Hx Circulatory Problems: Yes Hx Congestive Heart Failure: Yes Hx Hypertension: Yes Hx Peripheral Edema: Yes - PULMONARY Hx Chronic Obstructive Pulmonary Disease (COPD): Yes Hx Pneumonia: Yes Hx Respiratory Tract Infection: Yes Hx Sleep Apnea: Yes - NEUROLOGICAL Hx Neurological Disorder: Yes Hx Seizures: Yes - HEENT Hx HEENT Problems: No - RENAL Hx Chronic Kidney Disease: Yes Hx Renal Failure: Yes - ENDOCRINE/METABOLIC Hx Endocrine Disorders: Yes Hx Diabetes Mellitus Type 1: Yes Hx Diabetes Mellitus Type 2: Yes Hx Hypothyroidism: Yes - HEMATOLOGICAL/ONCOLOGICAL Hx Blood Disorders: Yes (sepsis) Hx Anemia: Yes (iron deficiency) Hx Cancer: Yes (left breast lumpectomy) Hx Chemotherapy: Yes - INTEGUMENTARY Hx Dermatological Problems: No - MUSCULOSKELETAL/RHEUMATOLOGICAL Hx Musculoskeletal Disorders: Yes Hx Arthritis: Yes Hx Back Pain: Yes Hx Degenerative Joint Disease: Yes (Bilateral knee replacement) Hx Falls: Yes Hx Unsteady Gait: Yes - GASTROINTESTINAL Hx Gastrointestinal Disorders: Yes Hx Gastroesophageal Reflux: Yes - GENITOURINARY/GYNECOLOGICAL Hx Genitourinary Disorders: Yes Hx Incontinence: Yes Hx Urinary Tract Infection: Yes - PSYCHIATRIC Hx Psychophysiologic Disorder: Yes Hx Anxiety: Yes - SURGICAL HISTORY Hx Cardiac Catheterization: Yes Hx Joint Replacement: Yes Hx Orthopedic Surgery: Yes - ANESTHESIA Hx Anesthesia Reactions: No Hx Malignant Hyperthermia: No Meds Allergies/Adverse Reactions: Allergies Allergy/AdvReac Type Severity Reaction Status Date / Time No Known Allergies Allergy Verified 09/24/16 15:08 - Medications Medications: Current Medications Albuterol/Ipratropium (Duoneb 3 Mg/0.5 Mg (3 Ml) Ud) 3 ml IH Q2H PRN PRN Reason: Shortness of Breath Alprazolam (Xanax) 0.25 mg PO HS [facility] PRN Reason: Protocol Stop: 10/01/16 22:01 Last Admin: 09/25/16 23:50 Dose: Not Given Aspirin (Ecotrin) 81 mg PO 0800 [facility] Last Admin: 09/26/16 08:19 Dose: 81 mg Furosemide (Lasix) 40 mg IVP DAILY [facility] Last Admin: 09/26/16 10:20 Dose: 40 mg Glimepiride (Amaryl) 4 mg PO ACBD [facility] Last Admin: 09/26/16 16:19 Dose: 4 mg Hydralazine HCl (Apresoline) 50 mg PO BID [facility] Last Admin: 09/26/16 10:42 Dose: 50 mg Cefepime HCl (Maxipime 1gm) 1 gm in 100 mls @ 100 mls/hr IVPB Q12 [facility] PRN Reason: Protocol Last Admin: 09/26/16 13:23 Dose: 100 mls/hr Linezolid (Zyvox 600mg/300ml D5w) 600 mg in 300 mls @ 200 mls/hr IVPB Q12 [facility] PRN Reason: Protocol Stop: 10/02/16 10:01 Last Admin: 09/26/16 10:36 Dose: 200 mls/hr Sodium Chloride (Sodium Chloride 0.45%) 1,000 mls @ 80 mls/hr IV .[id number] [facility] Stop: 09/28/16 12:00 Insulin Human Lispro (Humalog Med) 0 units SC ACHS [facility] PRN Reason: Protocol Last Admin: 09/26/16 16:19 Dose: 3 units Isosorbide Mononitrate (Imdur) 60 mg PO DAILY [facility] Last Admin: 09/26/16 10:44 Dose: 60 mg Levalbuterol HCl (Xopenex) 1.25 mg IH [id number] [facility] Last Admin: 09/26/16 13:13 Dose: 1.25 mg Metformin HCl (Glucophage) 500 mg PO BID [facility] Last Admin: 09/26/16 10:43 Dose: 500 mg Nadolol (Corgard) 10 mg PO BID [facility] Last Admin: 09/26/16 10:42 Dose: 10 mg Nystatin (Mycostatin Cream) 0 ea TOP TID [facility] Last Admin: 09/26/16 14:19 Dose: 1 dose Pantoprazole Sodium (Protonix Ec Tab) 40 mg PO 0630 [facility] Last Admin: 09/26/16 06:16 Dose: 40 mg Phytonadione (Vitamin K Inj) 10 mg SC ONCE [facility] Stop: 09/27/16 06:01 Potassium Chloride (Klor-Con 10) 10 meq PO DAILY [facility] Last Admin: 09/26/16 10:45 Dose: 10 meq Sitagliptin Phosphate (Januvia) 50 mg PO DAILY [facility] Last Admin: 09/26/16 10:44 Dose: 50 mg Tiotropium [place] (Spiriva) 18 mcg IH DAILY [facility] Last Admin: 09/26/16 10:45 Dose: 18 mcg Tramadol/Acetaminophen (Ultracet 37.5/325 Mg) 1 tab PO Q6H PRN PRN Reason: Pain, moderate (4-7) Valsartan (Diovan) 320 mg PO DAILY [facility] Last Admin: 09/26/16 10:43 Dose: 320 mg Results - Vital Signs Recent Vital Signs: Last Vital Signs Temp 98 F 09/26/16 15:57 Pulse 64 09/26/16 15:57 Resp 20 09/26/16 15:57 BP 119/49 L 09/26/16 15:57 Pulse Ox 96 09/26/16 15:57 - Labs Result Diagrams: 09/26/16 08:20 09/26/16 08:20 Labs: Laboratory Results - last 24 hr 09/26/16 09/26/16 09/26/16 08:20 08:20 09:00 WBC 10.6 D RBC 3.20 L Hgb 9.1 L Hct 29.0 L MCV 90.6 MCH 28.4 MCHC 31.4 RDW 16.5 H Plt Count 231 MPV 9.6 PT 34.0 H* INR 3.15 H APTT 40.6 H Sodium 136 Potassium 3.7 Chloride 98 Carbon Dioxide 32 Anion Gap 10 BUN 33 H Creatinine 0.9 Est GFR ( Amer) > 60 Est GFR (Non-Af Amer) > 60 Random Glucose 138 H Calcium 9.0 Total Bilirubin 0.6 AST 18 ALT 22 Alkaline Phosphatase 69 Total Protein 6.2 Albumin 3.7 Globulin 2.5 Albumin/Globulin Ratio 1.5 Assessment & Plan - Assessment and Plan (Free Text) Plan: Trauma left 1st toe 3 wks ago Pain and ulceration Smoker, DM, Afib on warfarin Nl Cr. Multilevel occlusive disease on RAMON/PVR Spoke with Dr. Henriquez Left forefoot is ischemic with cellulitis. Palpable left femoral pulse but absent left popliteal and pedal pulses. Plan Angio and LLE endovascular rx if possible. Spoke at length with pt.
[2016-09-26] MEDS: Sodium Chloride 0.45% 1,000 ML IV SCH (21:45)
--- NOTE | 2016-09-27 00:49 | CP.PCM.PN ---
Subjective - Date & Time of Evaluation Date of Evaluation: 09/27/16 Time of Evaluation: 00:48 - Subjective Subjective: # 22 angiocath was inserted in right upper arm. Dx: Poor venous access. Objective - Vital Signs/Intake and Output Vital Signs (last 24 hours): Temp Pulse Resp BP Pulse Ox 98 F 72 20 135/68 96 09/26/16 15:57 09/26/16 18:36 09/26/16 15:57 09/26/16 18:36 09/26/16 15:57 Intake and Output: 09/26/16 09/27/16 18:59 06:59 Intake Total 1230 660 Balance 1230 660 - Medications Medications: Current Medications Albuterol/Ipratropium (Duoneb 3 Mg/0.5 Mg (3 Ml) Ud) 3 ml IH Q2H PRN PRN Reason: Shortness of Breath Alprazolam (Xanax) 0.25 mg PO HS [facility] PRN Reason: Protocol Stop: 10/01/16 22:01 Last Admin: 09/26/16 21:44 Dose: 0.25 mg Aspirin (Ecotrin) 81 mg PO 0800 [facility] Last Admin: 09/26/16 08:19 Dose: 81 mg Furosemide (Lasix) 40 mg IVP DAILY [facility] Last Admin: 09/26/16 10:20 Dose: 40 mg Glimepiride (Amaryl) 4 mg PO ACBD [facility] Last Admin: 09/26/16 16:19 Dose: 4 mg Hydralazine HCl (Apresoline) 50 mg PO BID [facility] Last Admin: 09/26/16 18:36 Dose: 50 mg Cefepime HCl (Maxipime 1gm) 1 gm in 100 mls @ 100 mls/hr IVPB Q12 [facility] PRN Reason: Protocol Last Admin: 09/26/16 21:43 Dose: 100 mls/hr Linezolid (Zyvox 600mg/300ml D5w) 600 mg in 300 mls @ 200 mls/hr IVPB Q12 [facility] PRN Reason: Protocol Stop: 10/02/16 10:01 Last Admin: 09/26/16 21:44 Dose: 200 mls/hr Sodium Chloride (Sodium Chloride 0.45%) 1,000 mls @ 80 mls/hr IV .[id number] [facility] Stop: 09/28/16 12:00 Last Admin: 09/26/16 21:45 Dose: 80 mls/hr Insulin Human Lispro (Humalog Med) 0 units SC ACHS [facility] PRN Reason: Protocol Last Admin: 09/26/16 23:18 Dose: Not Given Isosorbide Mononitrate (Imdur) 60 mg PO DAILY [facility] Last Admin: 09/26/16 10:44 Dose: 60 mg Levalbuterol HCl (Xopenex) 1.25 mg IH [id number] [facility] Last Admin: 09/26/16 13:13 Dose: 1.25 mg Metformin HCl (Glucophage) 500 mg PO BID [facility] Last Admin: 09/26/16 18:36 Dose: 500 mg Nadolol (Corgard) 10 mg PO BID [facility] Last Admin: 09/26/16 18:35 Dose: 10 mg Nystatin (Mycostatin Cream) 0 ea TOP TID [facility] Last Admin: 09/26/16 14:19 Dose: 1 dose Pantoprazole Sodium (Protonix Ec Tab) 40 mg PO 0630 [facility] Last Admin: 09/26/16 06:16 Dose: 40 mg Phytonadione (Vitamin K Inj) 10 mg SC ONCE [facility] Stop: 09/27/16 06:01 Potassium Chloride (Klor-Con 10) 10 meq PO DAILY [facility] Last Admin: 09/26/16 10:45 Dose: 10 meq Sitagliptin Phosphate (Januvia) 50 mg PO DAILY [facility] Last Admin: 09/26/16 10:44 Dose: 50 mg Tiotropium [place] (Spiriva) 18 mcg IH DAILY [facility] Last Admin: 09/26/16 10:45 Dose: 18 mcg Tramadol/Acetaminophen (Ultracet 37.5/325 Mg) 1 tab PO Q6H PRN PRN Reason: Pain, moderate (4-7) Valsartan (Diovan) 320 mg PO DAILY [facility] Last Admin: 09/26/16 10:43 Dose: 320 mg - Labs Labs: 09/26/16 08:20 09/26/16 08:20 PT 34.0 Seconds (9.9-11.8) H* 09/26/16 09:00 INR 3.15 (0.93-1.08) H 09/26/16 09:00 APTT 40.6 Seconds (23.7-30.8) H 09/26/16 09:00
[2016-09-27] MEDS: Levalbuterol 1.25 MG/3 ML Inhal Soln UD IH SCH ×4 (02:15→21:09)
[2016-09-27] MEDS: Pantoprazole 40 mg EC Tab PO SCH (05:36)
[2016-09-27] MEDS ORDERED: Phytonadione 10 mg/ml Inj (Adult) SC ONE (06:00)
[2016-09-27 07:15] LABS: HEMOGLOBIN 8.7 gm/dL (12.0-16.0); MEAN CELL VOLUME 88.9 fL (80.0-105.0); MEAN CORPUSCULAR HEMOGLOBIN 27.5 pg (25.0-35.0); MEAN PLATELET VOLUME 10.2 fl (7.0-11.0); RBC 3.16 10^6/uL (3.5-6.1); RED CELL DISTRIBUTION WIDTH 16.5 % (11.5-14.5); WHITE BLOOD COUNT 8.7 10^3/ul (4.5-11.0)
[2016-09-27 07:19] LABS: BLOOD UREA NITROGEN 31 mg/dL (7-21); CALCIUM 9.2 mg/dL (8.4-10.5); GFR AFRICAN-AMERICAN > 60; GFR NON-AFRICAN AMERICAN > 60
[2016-09-27 07:22] LABS: INR 1.68 (0.93-1.08); PARTIAL THROMBOPLASTIN TIME 33.6 Seconds (23.7-30.8); PROTHROMBIN TIME 18.1 Seconds (9.9-11.8)
--- NOTE | 2016-09-27 09:46 | CP.PCM.PN ---
<Tone,Sp - Last Filed: 09/27/16 09:40> Subjective - Date & Time of Evaluation Date of Evaluation: 09/27/16 Time of Evaluation: 09:40 - Subjective Subjective: 71 year old female seen sitting next to her bed for left hallux ulceration. Patient states that her left foot is hurting her this morning. She denies any acute overnight events. She denies N/V/F/C/CP/SOB and she denies any further pedal complaints at this time. Objective - Vital Signs/Intake and Output Vital Signs (last 24 hours): Temp Pulse Resp BP Pulse Ox 97.7 F 75 18 140/56 L 97 09/27/16 08:00 09/27/16 08:00 09/27/16 08:00 09/27/16 08:00 09/27/16 08:00 Intake and Output: 09/27/16 09/27/16 06:59 18:59 Intake Total 900 Output Total 300 Balance 600 - Medications Medications: Current Medications Albuterol/Ipratropium (Duoneb 3 Mg/0.5 Mg (3 Ml) Ud) 3 ml IH Q2H PRN PRN Reason: Shortness of Breath Alprazolam (Xanax) 0.25 mg PO HS [facility] PRN Reason: Protocol Stop: 10/01/16 22:01 Last Admin: 09/26/16 21:44 Dose: 0.25 mg Aspirin (Ecotrin) 81 mg PO 0800 [facility] Last Admin: 09/26/16 08:19 Dose: 81 mg Enoxaparin Sodium (Lovenox) 70 mg SC Q12H [facility] PRN Reason: Protocol Furosemide (Lasix) 40 mg IVP DAILY [facility] Last Admin: 09/26/16 10:20 Dose: 40 mg Glimepiride (Amaryl) 4 mg PO ACBD [facility] Last Admin: 09/26/16 16:19 Dose: 4 mg Hydralazine HCl (Apresoline) 50 mg PO BID [facility] Last Admin: 09/26/16 18:36 Dose: 50 mg Cefepime HCl (Maxipime 1gm) 1 gm in 100 mls @ 100 mls/hr IVPB Q12 [facility] PRN Reason: Protocol Last Admin: 09/26/16 21:43 Dose: 100 mls/hr Linezolid (Zyvox 600mg/300ml D5w) 600 mg in 300 mls @ 200 mls/hr IVPB Q12 [facility] PRN Reason: Protocol Stop: 10/02/16 10:01 Last Admin: 09/26/16 21:44 Dose: 200 mls/hr Sodium Chloride (Sodium Chloride 0.45%) 1,000 mls @ 80 mls/hr IV .[id number] [facility] Stop: 09/28/16 12:00 Last Admin: 09/26/16 21:45 Dose: 80 mls/hr Insulin Human Lispro (Humalog Med) 0 units SC ACHS [facility] PRN Reason: Protocol Last Admin: 09/26/16 23:18 Dose: Not Given Isosorbide Mononitrate (Imdur) 60 mg PO DAILY [facility] Last Admin: 09/26/16 10:44 Dose: 60 mg Levalbuterol HCl (Xopenex) 1.25 mg IH [id number] [facility] Last Admin: 09/27/16 07:30 Dose: 1.25 mg Metformin HCl (Glucophage) 500 mg PO BID [facility] Last Admin: 09/26/16 18:36 Dose: 500 mg Nadolol (Corgard) 10 mg PO BID [facility] Last Admin: 09/26/16 18:35 Dose: 10 mg Nystatin (Mycostatin Cream) 0 ea TOP TID [facility] Last Admin: 09/26/16 14:19 Dose: 1 dose Pantoprazole Sodium (Protonix Ec Tab) 40 mg PO 0630 [facility] Last Admin: 09/27/16 05:36 Dose: 40 mg Potassium Chloride (Klor-Con 10) 10 meq PO DAILY [facility] Last Admin: 09/26/16 10:45 Dose: 10 meq Sitagliptin Phosphate (Januvia) 50 mg PO DAILY [facility] Last Admin: 09/26/16 10:44 Dose: 50 mg Tiotropium [place] (Spiriva) 18 mcg IH DAILY [facility] Last Admin: 09/26/16 10:45 Dose: 18 mcg Tramadol/Acetaminophen (Ultracet 37.5/325 Mg) 1 tab PO Q6H PRN PRN Reason: Pain, moderate (4-7) Valsartan (Diovan) 320 mg PO DAILY [facility] Last Admin: 09/26/16 10:43 Dose: 320 mg - Labs Labs: 09/27/16 06:30 09/27/16 06:30 PT 18.1 Seconds (9.9-11.8) H 09/27/16 06:30 INR 1.68 (0.93-1.08) H 09/27/16 06:30 APTT 33.6 Seconds (23.7-30.8) H 09/27/16 06:30 - Constitutional Appears: Well, Toxic, No Acute Distress - Extremities Exam Additional comments: Lower Extremity Focused exam Vasc: DP/PT pulses non-palpable b/l. Mild pitting edema noted to left lower extremity. CFT < 4 seconds to digits 1-10. Skin temperature cool to cool from proximal to distal b/l. Derm: Unstageable ulceration noted to medial aspect of patients left hallux which measures roughly 1.1 cm x 2.1 cm. Mild xerotic skin changes are noted to periwound area. No drainage, malodor, erythema, fluctuance or other clincal signs of infection are noted at this time. Neuro: Epicritic and protective sensation grossly diminished b/l Ortho: No POP noted to distal digits b/l - Neurological Exam Neurological Exam: Alert, Awake, Oriented x3 - Psychiatric Exam Psychiatric exam: Normal Affect, Normal Mood Assessment and Plan - Assessment and Plan (Free Text) Assessment: 71 year old female with left hallux ulceration secondary to DM Plan: Patient seen and evaluated in her room with attending Dr. Hoffman Charts, labs and vitals reviewed; afebrile, WBC 8.7 Final wound culture results (09/24/16) are positive for MRSA Continue IV abx per ID Left hallux dressed with betadine, DSD Patient scheduled for LE angio next week Podiatry will continue to follow while in house <Nikia Hoffman - Last Filed: 09/27/16 14:54> Objective - Vital Signs/Intake and Output Vital Signs (last 24 hours): Temp Pulse Resp BP Pulse Ox 97.7 F 75 18 140/78 97 09/27/16 08:00 09/27/16 08:00 09/27/16 08:00 09/27/16 10:20 09/27/16 08:00 Intake and Output: 09/27/16 09/27/16 06:59 18:59 Intake Total 900 Output Total 300 Balance 600 - Medications Medications: Current Medications Albuterol/Ipratropium (Duoneb 3 Mg/0.5 Mg (3 Ml) Ud) 3 ml IH Q2H PRN PRN Reason: Shortness of Breath Alprazolam (Xanax) 0.25 mg PO HS [facility] PRN Reason: Protocol Stop: 10/01/16 22:01 Last Admin: 09/26/16 21:44 Dose: 0.25 mg Aspirin (Ecotrin) 81 mg PO 0800 [facility] Last Admin: 09/26/16 08:19 Dose: 81 mg Enoxaparin Sodium (Lovenox) 70 mg SC Q12H [facility] PRN Reason: Protocol Furosemide (Lasix) 40 mg IVP DAILY [facility] Last Admin: 09/27/16 10:20 Dose: 40 mg Glimepiride (Amaryl) 4 mg PO ACBD [facility] Last Admin: 09/26/16 16:19 Dose: 4 mg Hydralazine HCl (Apresoline) 50 mg PO BID [facility] Last Admin: 09/27/16 10:19 Dose: 50 mg Linezolid (Zyvox 600mg/300ml D5w) 600 mg in 300 mls @ 200 mls/hr IVPB Q12 [facility] PRN Reason: Protocol Stop: 10/02/16 10:01 Last Admin: 09/27/16 10:22 Dose: 200 mls/hr Sodium Chloride (Sodium Chloride 0.45%) 1,000 mls @ 80 mls/hr IV .[id number] [facility] Stop: 09/28/16 12:00 Last Admin: 09/27/16 10:22 Dose: 80 mls/hr Insulin Human Lispro (Humalog Med) 0 units SC ACHS [facility] PRN Reason: Protocol Last Admin: 09/27/16 12:00 Dose: Not Given Isosorbide Mononitrate (Imdur) 60 mg PO DAILY [facility] Last Admin: 09/27/16 10:21 Dose: 60 mg Levalbuterol HCl (Xopenex) 1.25 mg IH [id number] [facility] Last Admin: 09/27/16 13:43 Dose: Not Given Metformin HCl (Glucophage) 500 mg PO BID [facility] Last Admin: 09/27/16 10:00 Dose: Not Given Nadolol (Corgard) 10 mg PO BID [facility] Last Admin: 09/27/16 10:20 Dose: 10 mg Nystatin (Mycostatin Cream) 0 ea TOP TID [facility] Last Admin: 09/27/16 10:21 Dose: 1 dose Pantoprazole Sodium (Protonix Ec Tab) 40 mg PO 0630 [facility] Last Admin: 09/27/16 05:36 Dose: 40 mg Potassium Chloride (Klor-Con 10) 10 meq PO DAILY [facility] Last Admin: 09/27/16 10:20 Dose: 10 meq Sitagliptin Phosphate (Januvia) 50 mg PO DAILY [facility] Last Admin: 09/27/16 10:21 Dose: Not Given Tiotropium [place] (Spiriva) 18 mcg IH DAILY [facility] Last Admin: 09/27/16 10:19 Dose: 18 mcg Tramadol/Acetaminophen (Ultracet 37.5/325 Mg) 1 tab PO Q6H PRN PRN Reason: Pain, moderate (4-7) Valsartan (Diovan) 320 mg PO DAILY [facility] Last Admin: 09/27/16 10:19 Dose: 320 mg - Labs Labs: 09/27/16 06:30 09/27/16 06:30 PT 18.1 Seconds (9.9-11.8) H 09/27/16 06:30 INR 1.68 (0.93-1.08) H 09/27/16 06:30 APTT 33.6 Seconds (23.7-30.8) H 09/27/16 06:30 Attending/Attestation - Attestation I have personally seen and examined this patient.: Yes I have fully participated in the care of the patient.: Yes I have reviewed all pertinent clinical information, including history, physical exam and plan: Yes
[2016-09-27] MEDS: Tiotropium 18 mcg Cap For Inhalation IH SCH (10:19)
[2016-09-27] MEDS: Potassium Chloride 10 mEq ER Tab PO SCH (10:20)
[2016-09-27] MEDS: Insulin Lispro (humaLOG) MEDIUM Coverage SC SCH ×4 (10:21→23:19)
[2016-09-27] MEDS: Nystatin 100,000 Units/gm Cream(15 gm) TOP SCH (10:21)
[2016-09-27] MEDS: Linezolid 600 mg in D5W 300 ml 600 MG/300 ML BAG IVPB SCH ×2 (10:22→21:43)
[2016-09-27] MEDS: Sodium Chloride 0.45% 1,000 ML IV SCH (10:22)
[2016-09-27] MEDS ORDERED: Lidocaine 2% Inj (20ml) ONE (11:33)
[2016-09-27] MEDS ORDERED: Midazolam 2 MG/2 ML VIAL ONE ×2 (11:34→13:13)
--- NOTE | 2016-09-27 11:38 | CP.PCM.PN ---
Subjective - Date & Time of Evaluation Date of Evaluation: 09/27/16 Time of Evaluation: 11:00 - Subjective Subjective: Comfortable in bed, not in distress, afebrile. Objective - Vital Signs/Intake and Output Vital Signs (last 24 hours): Temp Pulse Resp BP Pulse Ox 97.7 F 75 18 140/56 L 97 09/27/16 08:00 09/27/16 08:00 09/27/16 08:00 09/27/16 08:00 09/27/16 08:00 Intake and Output: 09/27/16 09/27/16 06:59 18:59 Intake Total 900 Output Total 300 Balance 600 - Medications Medications: Current Medications Albuterol/Ipratropium (Duoneb 3 Mg/0.5 Mg (3 Ml) Ud) 3 ml IH Q2H PRN PRN Reason: Shortness of Breath Alprazolam (Xanax) 0.25 mg PO HS [facility] PRN Reason: Protocol Stop: 10/01/16 22:01 Last Admin: 09/26/16 21:44 Dose: 0.25 mg Aspirin (Ecotrin) 81 mg PO 0800 [facility] Last Admin: 09/26/16 08:19 Dose: 81 mg Enoxaparin Sodium (Lovenox) 70 mg SC Q12H [facility] PRN Reason: Protocol Furosemide (Lasix) 40 mg IVP DAILY [facility] Last Admin: 09/26/16 10:20 Dose: 40 mg Glimepiride (Amaryl) 4 mg PO ACBD [facility] Last Admin: 09/26/16 16:19 Dose: 4 mg Hydralazine HCl (Apresoline) 50 mg PO BID [facility] Last Admin: 09/26/16 18:36 Dose: 50 mg Linezolid (Zyvox 600mg/300ml D5w) 600 mg in 300 mls @ 200 mls/hr IVPB Q12 [facility] PRN Reason: Protocol Stop: 10/02/16 10:01 Last Admin: 09/26/16 21:44 Dose: 200 mls/hr Sodium Chloride (Sodium Chloride 0.45%) 1,000 mls @ 80 mls/hr IV .[id number] [facility] Stop: 09/28/16 12:00 Last Admin: 09/26/16 21:45 Dose: 80 mls/hr Insulin Human Lispro (Humalog Med) 0 units SC ACHS [facility] PRN Reason: Protocol Last Admin: 09/26/16 23:18 Dose: Not Given Isosorbide Mononitrate (Imdur) 60 mg PO DAILY [facility] Last Admin: 09/26/16 10:44 Dose: 60 mg Levalbuterol HCl (Xopenex) 1.25 mg IH [id number] [facility] Last Admin: 09/27/16 07:30 Dose: 1.25 mg Metformin HCl (Glucophage) 500 mg PO BID [facility] Last Admin: 09/26/16 18:36 Dose: 500 mg Nadolol (Corgard) 10 mg PO BID [facility] Last Admin: 09/26/16 18:35 Dose: 10 mg Nystatin (Mycostatin Cream) 0 ea TOP TID [facility] Last Admin: 09/26/16 14:19 Dose: 1 dose Pantoprazole Sodium (Protonix Ec Tab) 40 mg PO 629 [facility] Last Admin: 09/27/16 05:36 Dose: 40 mg Potassium Chloride (Klor-Con 10) 10 meq PO DAILY [facility] Last Admin: 09/26/16 10:45 Dose: 10 meq Sitagliptin Phosphate (Januvia) 50 mg PO DAILY [facility] Last Admin: 09/26/16 10:44 Dose: 50 mg Tiotropium [place] (Spiriva) 18 mcg IH DAILY [facility] Last Admin: 09/26/16 10:45 Dose: 18 mcg Tramadol/Acetaminophen (Ultracet 37.5/325 Mg) 1 tab PO Q6H PRN PRN Reason: Pain, moderate (4-7) Valsartan (Diovan) 320 mg PO DAILY [facility] Last Admin: 09/26/16 10:43 Dose: 320 mg - Labs Labs: 09/27/16 06:30 09/27/16 06:30 PT 18.1 Seconds (9.9-11.8) H 09/27/16 06:30 INR 1.68 (0.93-1.08) H 09/27/16 06:30 APTT 33.6 Seconds (23.7-30.8) H 09/27/16 06:30 - Constitutional Appears: Non-toxic, No Acute Distress - Head Exam Head Exam: NORMAL INSPECTION - ENT Exam ENT Exam: Mucous Membranes Moist - Neck Exam Neck Exam: absent: Lymphadenopathy, Meningismus - Respiratory Exam Respiratory Exam: Decreased Breath Sounds - Cardiovascular Exam Cardiovascular Exam: +S1, +S2 - GI/Abdominal Exam GI & Abdominal Exam: Soft. absent: Tenderness - Extremities Exam Additional comments: left foot with dry dressings in place Assessment and Plan - Assessment and Plan (Free Text) Plan: Assessment Probable infected diabetic ulceration of the left hallux associated with trauma with probable peripheral vascular disease, growing MRSA - no evidence of osteomyelitis on MRI S/P Sepsis with acute hypoxic respiratory failure secondary to left-sided healthcare-associated pneumonia with possible gram positive cocci and/or gram negative bacilli, clinically improved and S/P treatment as well as sepsis from persistent methicillin-resistant coagulase negative staph bacteremia , probably port infection S/P removal of the port history of Group G Strep bacteremia history of E. coli UTI history of healthcare-associated pneumonia acute renal failure obesity with BMI 38 CAD GERD arthritis history of bilateral knee replacements chronic CHF COPD DM history of breast CA History of Strep bovis bacteremia (2012) S/P Port-a-cath placement Plan continue Zyvox day 3; blood cx are negative; reviewed Podiatry plans will continue to monitor clinically
--- NOTE | 2016-09-27 17:05 | VASCULAR ---
PROCEDURE: 1. Abdominal aortogram and bilateral lower extremity runoff with left selective views. 2. Left SFA jet stream atherectomy and drug-eluting balloon angioplasty 3. Left popliteal artery drug-eluting balloon angioplasty 4. Left posterior tibial origin angioplasty 5. Right common iliac artery origin angioplasty and stent placement HISTORY: Severe peripheral vascular disease. Smoker. Diabetes. Ischemic nonhealing ulcer of the left great toe. PHYSICIAN(S): Maldonado Barnett M.D. TECHNIQUE: The relative risks and indications of the procedure were explained to the patient and consent obtained. The patient was hydrated prior to the procedure and the appropriate labs drawn. The patient was placed supine on the arteriogram table and the right groin prepped and draped in the usual sterile fashion. Conscious sedation and monitoring were provided throughout the procedure by a nurse. Via a right common femoral artery approach, a 5 [place]ian sheath was placed in the right groin. Through the sheath and over a guidewire, a 5 [place]ian flush catheter was placed in the abdominal aorta at the level of the renal arteries and a PA DSA abdominal aortogram performed. The catheter was pulled down to the aortic bifurcation and bilateral oblique DSA pelvic arteriograms performed. Overlapping bilateral lower extremity DSA arteriograms were obtained from the inguinal ligaments to the feet. A 0.035 angled Glidewire was advanced over the bifurcation and placed in the proximal left SFA. A 7 Cambodian 45 cm destination sheath was placed in the left common femoral artery.. The diffuse disease throughout the left SFA was crossed with an angled Glidewire and trail oren catheter. 0.014 support wire was placed in the mid to distal left posterior tibial artery. The left posterior tibial artery origin was dilated with 2.5 x 8 cm angioplasty balloon. A good angiographic result was obtained. Left popliteal artery below the knee was dilated with a 5 mm drug-eluting balloon. There was a small dissection but it was not flow limiting. An Cespedes filter was placed in the left popliteal artery above the knee. Jet stream atherectomy of the entire left SFA was performed with 2.4/3 0.4 mm catheter. 3 passes were performed. The left SFA was then dilated with overlapping 6 mm drug-eluting balloons. A good angiographic result with brisk antegrade flow was noted. No stent was placed. The focal severe stenosis at the origin the right common iliac artery was treated with a 9 mm balloon. 10 mm x 3 cm self expanding stent was placed the origin of the right common iliac artery. An excellent result was obtained. Completion angiograms were performed. The sheath was removed and hemostasis obtained with a Mynx device FINDINGS: There are single renal arteries bilaterally which are widely patent and normal in appearance. The nephrograms are symmetric in appearance. The infrarenal abdominal aorta is calcified and ectatic with a small aneurysm distally.. There is a severe focal stenosis at the origin of the right common iliac artery. A mild stenosis of the origin of the left iliac artery is seen. It does not appear radiographically significant. The internal iliac arteries are patent bilaterally. The external iliac arteries are patent bilaterally. Right lower extremity: The right common femoral artery is patent with posterior plaque. The right profunda femoral artery is patent. The right SFA is continuous with diffuse mild to moderate stenoses. The popliteal arteries obscured by right total knee replacement. No obvious popliteal disease is seen. The trifurcation is intact. There is 3 vessel tibial runoff.. The right posterior tibial artery is atretic distally. Left lower extremity: Left common femoral artery is patent with posterior plaque.. The left profunda femoral artery is hypertrophied. The left superficial femoral artery is diffusely and severely disease with significant calcification. A critical stenosis is seen in the adductor canal.. The left popliteal artery is obscured by total knee replacement. There is moderate disease in the left popliteal artery below the knee. The left trifurcation demonstrates a critical stenosis of the origin of the left posterior tibial artery. The left anterior tibial artery occludes 6 cm from its origin. There is reconstitution of the terminal left anterior tibial artery. The predominant supply the foot is the left posterior tibial and peroneal arteries. IMPRESSION: 1.Successful left SFA jet stream atherectomy and drug-eluting balloon angioplasty. 2. Left popliteal artery drug-eluting balloon angioplasty below the knee. A mild dissection was noted but no stent was placed. 3. Successful left posterior tibial artery origin angioplasty. 4. Right common iliac artery origin angioplasty and stent placement.
--- NOTE | 2016-09-27 19:44 | CP.PCM.PN ---
Subjective - Date & Time of Evaluation Date of Evaluation: 09/27/16 Time of Evaluation: 18:46 - Subjective Subjective: Patient seen at the request of Dr Barnett for evaluation of a hematoma that was noted at the site of the R groin from where access was established for the femoral angiogram and angioplasty that pt underwent earlier today. According to pt's RN there was a 15x7cm at the site of the R groin and pt c/o pain at the site. Local pressure was applied for 30 mins with resolution of the hematoma.The pain was also reduced. I was asked to see this patient after this . Patient states the pain at the site is much less than before.She offers no other complaints. Her VS are stable. PMH: Trauma left first toe 3 weeks ago, pain and ulceration Smoker DM AFib Multi level occlusive disease Objective - Vital Signs/Intake and Output Vital Signs (last 24 hours): Temp Pulse Resp BP Pulse Ox 97.7 F 72 18 149/63 97 09/27/16 08:00 09/27/16 18:19 09/27/16 08:00 09/27/16 18:19 09/27/16 08:00 Intake and Output: 09/27/16 09/27/16 06:59 18:59 Intake Total 900 Output Total 300 Balance 600 - Medications Medications: Current Medications Albuterol/Ipratropium (Duoneb 3 Mg/0.5 Mg (3 Ml) Ud) 3 ml IH Q2H PRN PRN Reason: Shortness of Breath Alprazolam (Xanax) 0.25 mg PO HS [facility] PRN Reason: Protocol Stop: 10/01/16 22:01 Last Admin: 09/26/16 21:44 Dose: 0.25 mg Aspirin (Ecotrin) 81 mg PO 0800 [facility] Last Admin: 09/27/16 08:00 Dose: Not Given Enoxaparin Sodium (Lovenox) 70 mg SC Q12H [facility] PRN Reason: Protocol Furosemide (Lasix) 40 mg IVP DAILY [facility] Last Admin: 09/27/16 10:20 Dose: 40 mg Glimepiride (Amaryl) 4 mg PO ACBD [facility] Last Admin: 09/27/16 18:24 Dose: Not Given Hydralazine HCl (Apresoline) 50 mg PO BID [facility] Last Admin: 09/27/16 18:19 Dose: 50 mg Linezolid (Zyvox 600mg/300ml D5w) 600 mg in 300 mls @ 200 mls/hr IVPB Q12 [facility] PRN Reason: Protocol Stop: 10/02/16 10:01 Last Admin: 09/27/16 10:22 Dose: 200 mls/hr Sodium Chloride (Sodium Chloride 0.45%) 1,000 mls @ 80 mls/hr IV .[id number] [facility] Stop: 09/28/16 12:00 Last Admin: 09/27/16 10:22 Dose: 80 mls/hr Insulin Human Lispro (Humalog Med) 0 units SC ACHS [facility] PRN Reason: Protocol Last Admin: 09/27/16 17:10 Dose: Not Given Isosorbide Mononitrate (Imdur) 60 mg PO DAILY [facility] Last Admin: 09/27/16 10:21 Dose: 60 mg Levalbuterol HCl (Xopenex) 1.25 mg IH [id number] [facility] Last Admin: 09/27/16 13:43 Dose: Not Given Metformin HCl (Glucophage) 500 mg PO BID [facility] Last Admin: 09/27/16 18:20 Dose: 500 mg Nadolol (Corgard) 10 mg PO BID [facility] Last Admin: 09/27/16 18:19 Dose: 10 mg Nystatin (Mycostatin Cream) 0 ea TOP TID [facility] Last Admin: 09/27/16 10:21 Dose: 1 dose Pantoprazole Sodium (Protonix Ec Tab) 40 mg PO 0630 [facility] Last Admin: 09/27/16 05:36 Dose: 40 mg Potassium Chloride (Klor-Con 10) 10 meq PO DAILY [facility] Last Admin: 09/27/16 10:20 Dose: 10 meq Sitagliptin Phosphate (Januvia) 50 mg PO DAILY [facility] Last Admin: 09/27/16 10:21 Dose: Not Given Tiotropium [place] (Spiriva) 18 mcg IH DAILY [facility] Last Admin: 09/27/16 10:19 Dose: 18 mcg Tramadol/Acetaminophen (Ultracet 37.5/325 Mg) 1 tab PO Q6H PRN PRN Reason: Pain, moderate (4-7) Valsartan (Diovan) 320 mg PO DAILY [facility] Last Admin: 09/27/16 10:19 Dose: 320 mg - Labs Labs: 09/27/16 06:30 09/27/16 06:30 PT 18.1 Seconds (9.9-11.8) H 09/27/16 06:30 INR 1.68 (0.93-1.08) H 09/27/16 06:30 APTT 33.6 Seconds (23.7-30.8) H 09/27/16 06:30 - Constitutional Appears: No Acute Distress - Head Exam Head Exam: NORMAL INSPECTION - Eye Exam Eye Exam: PERRL - ENT Exam ENT Exam: Mucous Membranes Moist - Neck Exam Neck Exam: Normal Inspection - Respiratory Exam Respiratory Exam: Clear to Ausculation Bilateral - Cardiovascular Exam Cardiovascular Exam: Irregular Rhythm - GI/Abdominal Exam GI & Abdominal Exam: Soft, Normal Bowel Sounds. absent: Tenderness Additional comments: Examination of the R groin reveals mild tenderness,no hematoma felt.Three puncture wounds seen .No active bleeding noted. both femoral pulses felt.Pressure dressing is in place. - Extremities Exam Extremities Exam: absent: Calf Tenderness Additional comments: Non healed ulcer noted on the L big toe.DP pulse is heard by doppler,but is feeble. R DP and posterior tibial pulses heard by Doppler,better than the L side. - Neurological Exam Neurological Exam: Alert, Oriented x3 - Psychiatric Exam Psychiatric exam: Normal Affect - Skin Skin Exam: Dry, Warm Additional comments: Non healed ulcer noted on the L big toe. Assessment and Plan - Assessment and Plan (Free Text) Assessment: S/P femoral angiogram and angioplasty S/P hematoma, right groin, at site of access for procedure History of severe PVD DM A Fib Plan: CBC ordered STAT Discussed findings with Dr. Candi Barnett.Patient is to stay on bed rest tonite and Heparin is to be held.
[2016-09-27 20:02] LABS: HEMOGLOBIN 8.6 gm/dL (12.0-16.0); MEAN CELL VOLUME 89.5 fL (80.0-105.0); MEAN CORPUSCULAR HEMOGLOBIN 28.2 pg (25.0-35.0); MEAN CORPUSCULAR HGB CONC 31.5 g/dl (31.0-37.0); MEAN PLATELET VOLUME 9.2 fl (7.0-11.0); RBC 3.05 10^6/uL (3.5-6.1); RED CELL DISTRIBUTION WIDTH 16.5 % (11.5-14.5); WHITE BLOOD COUNT 11.2 10^3/ul (4.5-11.0)
[2016-09-27] MEDS: Enoxaparin 80 mg Syringe SC SCH (20:19)
[2016-09-27] MEDS: TraMADol/Apap 37.5/325 mg Tab PO PRN (20:47)
[2016-09-28] MEDS: Levalbuterol 1.25 MG/3 ML Inhal Soln UD IH SCH ×4 (01:24→20:10)
--- NOTE | 2016-09-28 02:12 | CP.PCM.PN ---
Subjective - Date & Time of Evaluation Date of Evaluation: 09/28/16 Time of Evaluation: 01:54 - Subjective Subjective: S: Nurse Allan calls and tells that patient is confused and agitated . Patient was seen at bedside. She is confused. States that she is in nurse Jaziel's house. Has no complaints. Medical record was reviewed. O: Last Vital Signs 3 Temp 98.2 F 09/27/16 17:00 Pulse 76 09/27/16 19:10 Resp 16 09/27/16 17:00 BP 133/78 09/27/16 19:10 Pulse Ox 97 09/27/16 08:00 Awake,confused. LUNGS: Normal breathing pattern. Right Inguinal : No expansion of hematoma. Left big toe:ischemic. A: Agitaton. P:Xanax 0.25 mg PO now. Objective - Vital Signs/Intake and Output Vital Signs (last 24 hours): Temp Pulse Resp BP Pulse Ox 98.2 F 76 16 133/78 97 09/27/16 17:00 09/27/16 19:10 09/27/16 17:00 09/27/16 19:10 09/27/16 08:00 - Medications Medications: Current Medications Albuterol/Ipratropium (Duoneb 3 Mg/0.5 Mg (3 Ml) Ud) 3 ml IH Q2H PRN PRN Reason: Shortness of Breath Alprazolam (Xanax) 0.25 mg PO HS [facility] PRN Reason: Protocol Stop: 10/01/16 22:01 Last Admin: 09/27/16 21:43 Dose: 0.25 mg Alprazolam (Xanax) 0.25 mg PO STAT STA PRN Reason: Protocol Stop: 09/28/16 01:53 Aspirin (Ecotrin) 81 mg PO 0800 [facility] Last Admin: 09/27/16 08:00 Dose: Not Given Enoxaparin Sodium (Lovenox) 70 mg SC Q12H [facility] PRN Reason: Protocol Last Admin: 09/27/16 20:19 Dose: Not Given Furosemide (Lasix) 40 mg IVP DAILY [facility] Last Admin: 09/27/16 10:20 Dose: 40 mg Glimepiride (Amaryl) 4 mg PO ACBD [facility] Last Admin: 09/27/16 18:24 Dose: Not Given Hydralazine HCl (Apresoline) 50 mg PO BID [facility] Last Admin: 09/27/16 18:19 Dose: 50 mg Linezolid (Zyvox 600mg/300ml D5w) 600 mg in 300 mls @ 200 mls/hr IVPB Q12 [facility] PRN Reason: Protocol Stop: 10/02/16 10:01 Last Admin: 09/27/16 21:43 Dose: 200 mls/hr Sodium Chloride (Sodium Chloride 0.45%) 1,000 mls @ 80 mls/hr IV .[id number] [facility] Stop: 09/28/16 12:00 Last Admin: 09/27/16 10:22 Dose: 80 mls/hr Insulin Human Lispro (Humalog Med) 0 units SC ACHS [facility] PRN Reason: Protocol Last Admin: 09/27/16 23:19 Dose: Not Given Isosorbide Mononitrate (Imdur) 60 mg PO DAILY [facility] Last Admin: 09/27/16 10:21 Dose: 60 mg Levalbuterol HCl (Xopenex) 1.25 mg IH [id number] [facility] Last Admin: 09/28/16 01:24 Dose: 1.25 mg Metformin HCl (Glucophage) 500 mg PO BID [facility] Last Admin: 09/27/16 18:20 Dose: 500 mg Nadolol (Corgard) 10 mg PO BID [facility] Last Admin: 09/27/16 18:19 Dose: 10 mg Nystatin (Mycostatin Cream) 0 ea TOP TID [facility] Last Admin: 09/27/16 10:21 Dose: 1 dose Pantoprazole Sodium (Protonix Ec Tab) 40 mg PO 0630 [facility] Last Admin: 09/27/16 05:36 Dose: 40 mg Potassium Chloride (Klor-Con 10) 10 meq PO DAILY [facility] Last Admin: 09/27/16 10:20 Dose: 10 meq Sitagliptin Phosphate (Januvia) 50 mg PO DAILY [facility] Last Admin: 09/27/16 10:21 Dose: Not Given Tiotropium [place] (Spiriva) 18 mcg IH DAILY [facility] Last Admin: 09/27/16 10:19 Dose: 18 mcg Tramadol/Acetaminophen (Ultracet 37.5/325 Mg) 1 tab PO Q6H PRN PRN Reason: Pain, moderate (4-7) Last Admin: 09/27/16 20:47 Dose: 1 tab Valsartan (Diovan) 320 mg PO DAILY [facility] Last Admin: 09/27/16 10:19 Dose: 320 mg - Labs Labs: 09/27/16 19:40 09/27/16 06:30 PT 18.1 Seconds (9.9-11.8) H 09/27/16 06:30 INR 1.68 (0.93-1.08) H 09/27/16 06:30 APTT 33.6 Seconds (23.7-30.8) H 09/27/16 06:30
[2016-09-28] MEDS: Pantoprazole 40 mg EC Tab PO SCH (06:22)
[2016-09-28] MEDS: Insulin Lispro (humaLOG) MEDIUM Coverage SC SCH ×4 (08:05→22:51)
[2016-09-28 08:09] LABS: BASO # 0.01 K/mm3 (0.0-2.0); BASO % 0.1 % (0.0-3.0); EOS # 0.2 (0.0-0.7); EOS % 2.7 % (1.5-5.0); GRAN # 5.69 (1.4-6.5); GRAN % 73.3 % (50.0-68.0); LYMPH # 1.2 (1.2-3.4); LYMPH % 15.3 % (22.0-35.0); MEAN CELL VOLUME 89.7 fL (80.0-105.0); MEAN CORPUSCULAR HEMOGLOBIN 28.9 pg (25.0-35.0); MEAN CORPUSCULAR HGB CONC 32.2 g/dl (31.0-37.0); MEAN PLATELET VOLUME 9.8 fl (7.0-11.0); MONO # 0.7 (0.1-0.6); MONO % 8.6 % (1.0-6.0); PLATELET COUNT 217 10^3/uL (120.0-450.0); RBC 2.73 10^6/uL (3.5-6.1); RED CELL DISTRIBUTION WIDTH 16.5 % (11.5-14.5); WHITE BLOOD COUNT 7.8 10^3/ul (4.5-11.0)
[2016-09-28 08:21] LABS: HEMOGLOBIN 7.9 gm/dL (12.0-16.0)
[2016-09-28 08:33] LABS: ALB/GLOB RATIO 1.5 (1.1-1.8); ALBUMIN 3.3 g/dL (3.0-4.8); ALT/SGPT 17 U/L (7-56); AST/SGOT 19 U/L (15-39); BLOOD UREA NITROGEN 24 mg/dL (7-21); CALCIUM 8.7 mg/dL (8.4-10.5); GFR AFRICAN-AMERICAN > 60; GFR NON-AFRICAN AMERICAN > 60
[2016-09-28] MEDS: Linezolid 600 mg in D5W 300 ml 600 MG/300 ML BAG IVPB SCH ×2 (10:19→22:50)
[2016-09-28] MEDS: Tiotropium 18 mcg Cap For Inhalation IH SCH (10:20)
[2016-09-28] MEDS: Potassium Chloride 10 mEq ER Tab PO SCH (10:20)
[2016-09-28] MEDS: Enoxaparin 80 mg Syringe SC SCH ×3 (10:23→22:49)
[2016-09-28] MEDS: Sodium Chloride 0.45% 1,000 ML IV SCH (10:24)
[2016-09-28] MEDS: Nystatin 100,000 Units/gm Cream(15 gm) TOP SCH ×3 (10:26→17:52)
--- NOTE | 2016-09-28 11:05 | CP.PCM.PN ---
Subjective - Date & Time of Evaluation Date of Evaluation: 09/28/16 Time of Evaluation: 10:20 - Subjective Subjective: Resting comfortably in bed, no fevers overnight. Had angioplasty and arthrectomy yesterday. Objective - Vital Signs/Intake and Output Vital Signs (last 24 hours): Temp Pulse Resp BP Pulse Ox 97.4 F L 54 L 21 126/94 H 97 09/28/16 06:00 09/28/16 06:00 09/28/16 06:00 09/28/16 06:00 09/28/16 06:00 Intake and Output: 09/28/16 09/28/16 06:59 18:59 Intake Total 1160 Output Total 1600 Balance -440 - Medications Medications: Current Medications Albuterol/Ipratropium (Duoneb 3 Mg/0.5 Mg (3 Ml) Ud) 3 ml IH Q2H PRN PRN Reason: Shortness of Breath Alprazolam (Xanax) 0.25 mg PO HS [facility] PRN Reason: Protocol Stop: 10/01/16 22:01 Last Admin: 09/27/16 21:43 Dose: 0.25 mg Aspirin (Ecotrin) 81 mg PO 0800 [facility] Last Admin: 09/27/16 08:00 Dose: Not Given Enoxaparin Sodium (Lovenox) 70 mg SC Q12H [facility] PRN Reason: Protocol Last Admin: 09/27/16 20:19 Dose: Not Given Furosemide (Lasix) 40 mg IVP DAILY [facility] Last Admin: 09/27/16 10:20 Dose: 40 mg Glimepiride (Amaryl) 4 mg PO ACBD [facility] Last Admin: 09/27/16 18:24 Dose: Not Given Hydralazine HCl (Apresoline) 50 mg PO BID [facility] Last Admin: 09/27/16 18:19 Dose: 50 mg Linezolid (Zyvox 600mg/300ml D5w) 600 mg in 300 mls @ 200 mls/hr IVPB Q12 [facility] PRN Reason: Protocol Stop: 10/02/16 10:01 Last Admin: 09/27/16 21:43 Dose: 200 mls/hr Sodium Chloride (Sodium Chloride 0.45%) 1,000 mls @ 80 mls/hr IV .[id number] [facility] Stop: 09/28/16 12:00 Last Admin: 09/27/16 10:22 Dose: 80 mls/hr Insulin Human Lispro (Humalog Med) 0 units SC ACHS [facility] PRN Reason: Protocol Last Admin: 09/27/16 23:19 Dose: Not Given Isosorbide Mononitrate (Imdur) 60 mg PO DAILY [facility] Last Admin: 09/27/16 10:21 Dose: 60 mg Levalbuterol HCl (Xopenex) 1.25 mg IH [id number] [facility] Last Admin: 09/28/16 01:24 Dose: 1.25 mg Metformin HCl (Glucophage) 500 mg PO BID [facility] Last Admin: 09/27/16 18:20 Dose: 500 mg Nadolol (Corgard) 10 mg PO BID [facility] Last Admin: 09/27/16 18:19 Dose: 10 mg Nystatin (Mycostatin Cream) 0 ea TOP TID [facility] Last Admin: 09/27/16 10:21 Dose: 1 dose Pantoprazole Sodium (Protonix Ec Tab) 40 mg PO 0630 [facility] Last Admin: 09/28/16 06:22 Dose: 40 mg Potassium Chloride (Klor-Con 10) 10 meq PO DAILY [facility] Last Admin: 09/27/16 10:20 Dose: 10 meq Sitagliptin Phosphate (Januvia) 50 mg PO DAILY [facility] Last Admin: 09/27/16 10:21 Dose: Not Given Tiotropium [place] (Spiriva) 18 mcg IH DAILY [facility] Last Admin: 09/27/16 10:19 Dose: 18 mcg Tramadol/Acetaminophen (Ultracet 37.5/325 Mg) 1 tab PO Q6H PRN PRN Reason: Pain, moderate (4-7) Last Admin: 09/27/16 20:47 Dose: 1 tab Valsartan (Diovan) 320 mg PO DAILY [facility] Last Admin: 09/27/16 10:19 Dose: 320 mg - Labs Labs: 09/27/16 19:40 09/27/16 06:30 PT 18.1 Seconds (9.9-11.8) H 09/27/16 06:30 INR 1.68 (0.93-1.08) H 09/27/16 06:30 APTT 33.6 Seconds (23.7-30.8) H 09/27/16 06:30 - Constitutional Appears: Non-toxic, No Acute Distress - Head Exam Head Exam: NORMAL INSPECTION - Neck Exam Neck Exam: absent: Meningismus - Respiratory Exam Respiratory Exam: Decreased Breath Sounds - Cardiovascular Exam Cardiovascular Exam: +S1, +S2 - GI/Abdominal Exam GI & Abdominal Exam: Soft. absent: Tenderness - Extremities Exam Additional comments: left foot with dry dressings in place Assessment and Plan - Assessment and Plan (Free Text) Plan: Assessment Probable infected diabetic ulceration of the left hallux associated with trauma with probable peripheral vascular disease, growing MRSA - no evidence of osteomyelitis on MRI - patient is S/P arthrectomy and angioplasty of left sided lower extremity vasculature S/P Sepsis with acute hypoxic respiratory failure secondary to left-sided healthcare-associated pneumonia with possible gram positive cocci and/or gram negative bacilli, clinically improved and S/P treatment as well as sepsis from persistent methicillin-resistant coagulase negative staph bacteremia , probably port infection S/P removal of the port history of Group G Strep bacteremia history of E. coli UTI history of healthcare-associated pneumonia acute renal failure obesity with BMI 38 CAD GERD arthritis history of bilateral knee replacements chronic CHF COPD DM history of breast CA History of Strep bovis bacteremia (2012) S/P Port-a-cath placement Plan continue Zyvox day 4 - should complete 7-10 days of antibiotics; blood cx are negative; reviewed Podiatry plans will continue to monitor clinically
[2016-09-28] MEDS ORDERED: Potassium Chloride 20 mEq ER Tab PO ONE (11:28)
[2016-09-29] MEDS: Levalbuterol 1.25 MG/3 ML Inhal Soln UD IH SCH ×4 (02:15→19:23)
[2016-09-29] MEDS: TraMADol/Apap 37.5/325 mg Tab PO PRN (04:55)
[2016-09-29] MEDS: Pantoprazole 40 mg EC Tab PO SCH (06:38)
[2016-09-29] MEDS: Nystatin 100,000 Units/gm Cream(15 gm) TOP SCH ×4 (07:59→18:05)
[2016-09-29] MEDS: Sodium Chloride 0.45% 1,000 ML IV SCH (07:59)
[2016-09-29] MEDS: Enoxaparin 80 mg Syringe SC SCH ×3 (07:59→21:44)
[2016-09-29] MEDS: Insulin Lispro (humaLOG) MEDIUM Coverage SC SCH ×4 (08:18→22:00)
[2016-09-29] MEDS: Tiotropium 18 mcg Cap For Inhalation IH SCH (09:22)
[2016-09-29] MEDS: Linezolid 600 mg in D5W 300 ml 600 MG/300 ML BAG IVPB SCH ×2 (09:22→21:43)
[2016-09-29] MEDS: Potassium Chloride 10 mEq ER Tab PO SCH (09:23)
--- NOTE | 2016-09-29 09:43 | CP.PCM.PN ---
<Kylah Byrd - Last Filed: 09/29/16 09:40> Subjective - Date & Time of Evaluation Date of Evaluation: 09/29/16 Time of Evaluation: 09:40 - Subjective Subjective: 71 year old female was seen sitting next to her bed with attending, Dr. Hoffman regarding left hallux ulceration. Patient states that her left foot is tender this morning. She denies any acute overnight events. She denies any n/v/f/c/sob/ cp. Objective - Vital Signs/Intake and Output Vital Signs (last 24 hours): Temp Pulse Resp BP Pulse Ox 97.8 F 82 18 105/51 L 98 09/29/16 06:00 09/29/16 06:00 09/29/16 06:00 09/29/16 09:24 09/28/16 17:00 Intake and Output: 09/29/16 09/29/16 06:59 18:59 Intake Total 100 Balance 100 - Medications Medications: Current Medications Albuterol/Ipratropium (Duoneb 3 Mg/0.5 Mg (3 Ml) Ud) 3 ml IH Q2H PRN PRN Reason: Shortness of Breath Alprazolam (Xanax) 0.25 mg PO HS [facility] PRN Reason: Protocol Stop: 10/01/16 22:01 Last Admin: 09/28/16 22:51 Dose: 0.25 mg Aspirin (Ecotrin) 81 mg PO 0800 [facility] Last Admin: 09/29/16 08:18 Dose: 81 mg Enoxaparin Sodium (Lovenox) 70 mg SC Q12H [facility] PRN Reason: Protocol Last Admin: 09/29/16 09:27 Dose: 70 mg Furosemide (Lasix) 40 mg IVP DAILY [facility] Last Admin: 09/29/16 09:24 Dose: 40 mg Glimepiride (Amaryl) 4 mg PO ACBD [facility] Last Admin: 09/29/16 08:18 Dose: 4 mg Hydralazine HCl (Apresoline) 50 mg PO BID [facility] Last Admin: 09/29/16 09:23 Dose: 50 mg Linezolid (Zyvox 600mg/300ml D5w) 600 mg in 300 mls @ 200 mls/hr IVPB Q12 [facility] PRN Reason: Protocol Stop: 10/02/16 10:01 Last Admin: 09/29/16 09:22 Dose: 200 mls/hr Insulin Human Lispro (Humalog Med) 0 units SC ACHS [facility] PRN Reason: Protocol Last Admin: 09/29/16 08:18 Dose: Not Given Isosorbide Mononitrate (Imdur) 60 mg PO DAILY [facility] Last Admin: 09/29/16 09:22 Dose: 60 mg Levalbuterol HCl (Xopenex) 1.25 mg IH [id number] [facility] Last Admin: 09/29/16 07:42 Dose: 1.25 mg Metformin HCl (Glucophage) 500 mg PO BID [facility] Last Admin: 09/29/16 09:22 Dose: 500 mg Nadolol (Corgard) 10 mg PO BID [facility] Last Admin: 09/29/16 09:22 Dose: 10 mg Nystatin (Mycostatin Cream) 0 ea TOP TID [facility] Last Admin: 09/29/16 09:23 Dose: 1 dose Pantoprazole Sodium (Protonix Ec Tab) 40 mg PO 0630 [facility] Last Admin: 09/29/16 06:38 Dose: 40 mg Potassium Chloride (Klor-Con 10) 10 meq PO DAILY [facility] Last Admin: 09/29/16 09:23 Dose: 10 meq Sitagliptin Phosphate (Januvia) 50 mg PO DAILY [facility] Last Admin: 09/29/16 09:22 Dose: 50 mg Tiotropium [place] (Spiriva) 18 mcg IH DAILY [facility] Last Admin: 09/29/16 09:22 Dose: 18 mcg Tramadol/Acetaminophen (Ultracet 37.5/325 Mg) 1 tab PO Q6H PRN PRN Reason: Pain, moderate (4-7) Last Admin: 09/29/16 04:55 Dose: 1 tab Valsartan (Diovan) 320 mg PO DAILY [facility] Last Admin: 09/29/16 09:23 Dose: 320 mg Warfarin Sodium (Coumadin) 5 mg PO 1800 [facility] PRN Reason: Protocol Last Admin: 09/28/16 17:58 Dose: 5 mg - Labs Labs: 09/28/16 07:30 09/28/16 07:30 PT 18.1 Seconds (9.9-11.8) H 09/27/16 06:30 INR 1.68 (0.93-1.08) H 09/27/16 06:30 APTT 33.6 Seconds (23.7-30.8) H 09/27/16 06:30 - Constitutional Appears: No Acute Distress, Chronically Ill - Extremities Exam Additional comments: Lower Extremity Focused exam Vasc: DP and PT pulses non-palpable b/l. Mild pitting edema noted to left lower extremity. CFT < 4 seconds to digits 1-5 b/l. Skin temperature cool to cool from proximal to distal b/l. Derm: Unstageable ulceration noted to medial aspect of patients left hallux which measures approximately 1.1 cm x 2.1 cm. Periwound area is erythematous. No drainage, malodor, erythema, fluctuance or other clincal signs of infection are noted at this time. Neuro: Gross sensation diminished b/l Ortho: Tenderness on palpation to left foot - Neurological Exam Neurological Exam: Alert, Awake, Oriented x3 - Psychiatric Exam Psychiatric exam: Normal Affect, Normal Mood Assessment and Plan - Assessment and Plan (Free Text) Assessment: 71 year old female with left hallux ulceration secondary to DM, PVD Plan: Patient examined and evaluated with attending Dr. Hoffman Charts, labs and vitals reviewed; afebrile, WBC 7.8 Final wound culture results (09/24/16) are positive for MRSA Dr. Hoffman spoke with Dr. Barnett regarding angio, IMPRESSION: 1.Successful left SFA jet stream atherectomy and drug-eluting balloon angioplasty. 2. Left popliteal artery drug-eluting balloon angioplasty below the knee. A mild dissection was noted but no stent was placed. 3. Successful left posterior tibial artery origin angioplasty. 4. Right common iliac artery origin angioplasty and stent placement. Pt is optimzed, no bone infection noted Continue IV abx per ID Left hallux cleansed with betadine, dressed with optifoam dressing santyl ordered, to be applied to left hallux wound bilateral surgical shoes ordered for patient to wear when ambulating encouraged patient to ambulate Pt is stable for D/C, may follow up in [facility] for local wound care Podiatry will continue to follow while in house <Nikia Hoffman - Last Filed: 10/05/16 17:15> Objective - Vital Signs/Intake and Output Vital Signs (last 24 hours): Temp Pulse Resp BP Pulse Ox 98.4 F 74 18 123/58 L 93 L 10/01/16 12:00 10/01/16 12:00 10/01/16 12:00 10/01/16 12:00 10/01/16 06:00 - Labs Labs: 10/01/16 07:05 10/01/16 07:05 PT 11.3 Seconds (9.9-11.8) 09/29/16 13:45 INR 1.05 (0.93-1.08) 09/29/16 13:45 APTT 33.6 Seconds (23.7-30.8) H 09/27/16 06:30 Attending/Attestation - Attestation I have personally seen and examined this patient.: Yes I have fully participated in the care of the patient.: Yes I have reviewed all pertinent clinical information, including history, physical exam and plan: Yes
[2016-09-29] MEDS: Collagenase 250 Units/gm Ointment(30 gm) TOP SCH (11:42)
[2016-09-29 14:04] LABS: INR 1.05 (0.93-1.08); PROTHROMBIN TIME 11.3 Seconds (9.9-11.8)
[2016-09-29 14:51] LABS: BASO # 0.04 K/mm3 (0.0-2.0); BASO % 0.4 % (0.0-3.0); EOS # 0.3 (0.0-0.7); EOS % 3.6 % (1.5-5.0); GRAN # 6.34 (1.4-6.5); LYMPH # 1.4 (1.2-3.4); LYMPH % 15.1 % (22.0-35.0); MEAN CELL VOLUME 90.8 fL (80.0-105.0); MEAN CORPUSCULAR HEMOGLOBIN 27.5 pg (25.0-35.0); MEAN CORPUSCULAR HGB CONC 30.3 g/dl (31.0-37.0); MEAN PLATELET VOLUME 9.9 fl (7.0-11.0); MONO # 0.9 (0.1-0.6); MONO % 9.9 % (1.0-6.0); PLATELET COUNT 208 10^3/uL (120.0-450.0); RBC 2.51 10^6/uL (3.5-6.1); RED CELL DISTRIBUTION WIDTH 16.9 % (11.5-14.5); WHITE BLOOD COUNT 8.9 10^3/ul (4.5-11.0)
[2016-09-29 15:05] LABS: HEMOGLOBIN 6.9 gm/dL (12.0-16.0)
--- NOTE | 2016-09-29 19:50 | CP.PCM.CON ---
History of Present Illness - History of Present Illness History of Present Illness: Reason for consultation < : bradicardia Heart rate -39, 2.41 second pause. 71 year old morbidly obese female woith past medical Hx of CAD, one vessel CAD RCA-100% occluded colatralized from LAD. Moderate SKYLER 1.0cm2 .ch. Afib active tobacco abuser, PAD admitted with left foot ulcer underwent peripheral intervention ,developed hematoma, this morning developed bradicardia herat rate 39 with 2.41 second pause on beta [place]. denies cp, SOB, Dizzyness. PMhx. CAD as above, Ch Afib. SKYLER 1 cmc, COPD CHF secodary to diastolic Dys fx. and valvular herat diz T2DM morbid obesity Recent Cardiac W/U DARIUS;04/07/2016 ..EF-65% Ch Afib Trace Ar Moderate SKYLER [id number] Moderate to Sever Mr S/p cardiac cath 2 1/2 years single vessel CAD invoklving RCA . [employer], well collateralized from LAD. Review of Systems - Constitutional Constitutional: As Per HPI - EENT Eyes: As Per HPI Ears: As Per HPI - Breasts Breasts: As Per HPI - Cardiovascular Cardiovascular: As Per HPI, Irregular Heart Rhythm - Respiratory Respiratory: As Per HPI - Gastrointestinal Gastrointestinal: As Per HPI - Genitourinary Genitourinary: As Per HPI - Integumentary Additional comments: Non healinfg ulcer on left Foot. Past Patient History - Infectious Disease Hx of Infectious Diseases: None - Tetanus Immunizations Tetanus Immunization: Unknown - Past Medical History & Family History Past Medical History?: Yes - Past Social History Smoking Status: Heavy Smoker > 10 Cigarettes Daily - CARDIAC Hx Cardiac Disorders: Yes Hx Congestive Heart Failure: Yes Hx Hypertension: Yes - PULMONARY Hx Chronic Obstructive Pulmonary Disease (COPD): Yes - NEUROLOGICAL Hx Neurological Disorder: Yes Hx Seizures: Yes - HEENT Hx HEENT Problems: No - RENAL Hx Renal Failure: Yes - ENDOCRINE/METABOLIC Hx Diabetes Mellitus Type 1: Yes Hx Diabetes Mellitus Type 2: Yes Hx Hypothyroidism: Yes - HEMATOLOGICAL/ONCOLOGICAL Hx Blood Disorders: Yes (sepsis) Hx Anemia: Yes (iron deficiency) Hx Cancer: Yes (left breast lumpectomy) Hx Chemotherapy: Yes - INTEGUMENTARY Hx Dermatological Problems: No - MUSCULOSKELETAL/RHEUMATOLOGICAL Hx Arthritis: Yes - GASTROINTESTINAL Hx Gastrointestinal Disorders: Yes Hx Gastroesophageal Reflux: Yes - GENITOURINARY/GYNECOLOGICAL Hx Genitourinary Disorders: Yes Hx Incontinence: Yes Hx Urinary Tract Infection: Yes - PSYCHIATRIC Hx Psychophysiologic Disorder: Yes Hx Anxiety: Yes - SURGICAL HISTORY Hx Cardiac Catheterization: Yes Hx Joint Replacement: Yes Hx Orthopedic Surgery: Yes - ANESTHESIA Hx Anesthesia Reactions: No Hx Malignant Hyperthermia: No Meds Allergies/Adverse Reactions: Allergies Allergy/AdvReac Type Severity Reaction Status Date / Time No Known Allergies Allergy Verified 09/24/16 15:08 - Medications Medications: Current Medications Albuterol/Ipratropium (Duoneb 3 Mg/0.5 Mg (3 Ml) Ud) 3 ml IH Q2H PRN PRN Reason: Shortness of Breath Alprazolam (Xanax) 0.25 mg PO HS [facility] PRN Reason: Protocol Stop: 10/01/16 22:01 Last Admin: 09/28/16 22:51 Dose: 0.25 mg Aspirin (Ecotrin) 81 mg PO 0800 [facility] Last Admin: 09/29/16 08:18 Dose: 81 mg Collagenase (Santyl) 0 gm TOP DAILY [facility] Last Admin: 09/29/16 11:42 Dose: 1 u Enoxaparin Sodium (Lovenox) 70 mg SC Q12H [facility] PRN Reason: Protocol Last Admin: 09/29/16 09:27 Dose: 70 mg Furosemide (Lasix) 40 mg IVP DAILY [facility] Last Admin: 09/29/16 09:24 Dose: 40 mg Glimepiride (Amaryl) 4 mg PO ACBD [facility] Last Admin: 09/29/16 18:02 Dose: 4 mg Hydralazine HCl (Apresoline) 50 mg PO BID [facility] Last Admin: 09/29/16 18:02 Dose: 50 mg Linezolid (Zyvox 600mg/300ml D5w) 600 mg in 300 mls @ 200 mls/hr IVPB Q12 [facility] PRN Reason: Protocol Stop: 10/02/16 10:01 Last Admin: 09/29/16 09:22 Dose: 200 mls/hr Insulin Human Lispro (Humalog Med) 0 units SC ACHS [facility] PRN Reason: Protocol Last Admin: 09/29/16 18:05 Dose: Not Given Isosorbide Mononitrate (Imdur) 60 mg PO DAILY [facility] Last Admin: 09/29/16 09:22 Dose: 60 mg Levalbuterol HCl (Xopenex) 1.25 mg IH [id number] [facility] Last Admin: 09/29/16 19:23 Dose: 1.25 mg Metformin HCl (Glucophage) 500 mg PO BID [facility] Last Admin: 09/29/16 18:02 Dose: 500 mg Nystatin (Mycostatin Cream) 0 ea TOP TID [facility] Last Admin: 09/29/16 18:05 Dose: 1 dose Pantoprazole Sodium (Protonix Ec Tab) 40 mg PO 0630 [facility] Last Admin: 09/29/16 06:38 Dose: 40 mg Potassium Chloride (Klor-Con 10) 10 meq PO DAILY [facility] Last Admin: 09/29/16 09:23 Dose: 10 meq Sitagliptin Phosphate (Januvia) 50 mg PO DAILY [facility] Last Admin: 09/29/16 09:22 Dose: 50 mg Tiotropium [place] (Spiriva) 18 mcg IH DAILY [facility] Last Admin: 09/29/16 09:22 Dose: 18 mcg Tramadol/Acetaminophen (Ultracet 37.5/325 Mg) 1 tab PO Q6H PRN PRN Reason: Pain, moderate (4-7) Last Admin: 09/29/16 04:55 Dose: 1 tab Valsartan (Diovan) 320 mg PO DAILY [facility] Last Admin: 09/29/16 09:23 Dose: 320 mg Warfarin Sodium (Coumadin) 5 mg PO 1800 [facility] PRN Reason: Protocol Last Admin: 09/29/16 18:05 Dose: 5 mg Physical Exam - Constitutional Appears: Non-toxic - Head Exam Head Exam: ATRAUMATIC - Eye Exam Eye Exam: Conjunctival injection - ENT Exam ENT Exam: Mucous Membranes Dry - Neck Exam Neck exam: Positive for: Full Rom - Respiratory Exam Respiratory Exam: Clear to Auscultation Bilateral - Cardiovascular Exam Cardiovascular Exam: Irregular Rhythm, Systolic Murmur - Rectal Exam Rectal Exam: Deferred Results - Vital Signs Recent Vital Signs: Last Vital Signs Temp 98 F 09/29/16 18:34 Pulse 64 09/29/16 18:34 Resp 18 09/29/16 18:34 BP 91/41 L 09/29/16 18:34 Pulse Ox 98 09/28/16 17:00 - Labs Result Diagrams: 09/29/16 14:30 09/28/16 07:30 Labs: Laboratory Results - last 24 hr 09/28/16 09/28/16 09/29/16 16:02 21:33 07:23 WBC RBC Hgb Hct MCV MCH MCHC RDW Plt Count MPV Gran % Lymph % (Auto) [place] % (Auto) Eos % (Auto) Baso % (Auto) Gran # Lymph # [place] # Eos # Baso # PT INR POC Glucose (mg/dL) 197 H 221 H 100 Blood Type Antibody Screen Crossmatch BBK History Checked 09/29/16 09/29/16 09/29/16 11:15 13:45 14:30 WBC 8.9 RBC 2.51 L Hgb 6.9 L* Hct 22.8 L MCV 90.8 MCH 27.5 MCHC 30.3 L RDW 16.9 H Plt Count 208 MPV 9.9 Gran % 71.0 H Lymph % (Auto) 15.1 L [place] % (Auto) 9.9 H Eos % (Auto) 3.6 Baso % (Auto) 0.4 Gran # 6.34 Lymph # 1.4 [place] # 0.9 H Eos # 0.3 Baso # 0.04 PT 11.3 INR 1.05 POC Glucose (mg/dL) 180 H Blood Type Antibody Screen Crossmatch BBK History Checked 09/29/16 16:12 WBC RBC Hgb Hct MCV MCH MCHC RDW Plt Count MPV Gran % Lymph % (Auto) [place] % (Auto) Eos % (Auto) Baso % (Auto) Gran # Lymph # [place] # Eos # Baso # PT INR POC Glucose (mg/dL) Blood Type AB NEGATIVE Antibody Screen Negative Crossmatch See Detail BBK History Checked Patient has bt Assessment & Plan - Assessment and Plan (Free Text) Assessment: Ch Afib Bradicardia with Heart ray=te 39 and 2.41 second pause R/O SSS. R/o Need for PPM Most likely Vagal secondary to groin hematoma and on Beta [place] CAD RCA..100% [employer] moderate PAD Moderate to Severe MR morbid obesity Anemia .. COPD Plan: Monitor in telemetry to Assess Need for PPM Hold Beta [place] observe 24-48 hours off beta [place] Monitor H &H will foloow. thx. will check TSH as well. - Date & Time Date: 09/29/16 Time: 18:00
[2016-09-30] MEDS: TraMADol/Apap 37.5/325 mg Tab PO PRN ×2 (01:53→21:50)
[2016-09-30] MEDS: Levalbuterol 1.25 MG/3 ML Inhal Soln UD IH SCH ×4 (02:30→20:11)
[2016-09-30] MEDS: Pantoprazole 40 mg EC Tab PO SCH (05:33)
[2016-09-30] MEDS: Enoxaparin 80 mg Syringe SC SCH ×2 (07:50→21:49)
[2016-09-30] MEDS: Insulin Lispro (humaLOG) MEDIUM Coverage SC SCH ×4 (07:59→22:00)
--- NOTE | 2016-09-30 10:04 | CP.PCM.PN ---
Subjective - Date & Time of Evaluation Date of Evaluation: 09/30/16 Time of Evaluation: 07:45 - Subjective Subjective: Feels ok, lying comfortably, No Chest pain, no dizzyness, no palpitation. Objective - Vital Signs/Intake and Output Vital Signs (last 24 hours): Temp Pulse Resp BP Pulse Ox 97.8 F 88 19 121/57 L 96 09/30/16 06:00 09/30/16 06:00 09/30/16 06:00 09/30/16 06:00 09/30/16 06:00 Intake and Output: 09/30/16 09/30/16 06:59 18:59 Intake Total 805 325 Output Total 2 Balance 803 325 - Medications Medications: Current Medications Albuterol/Ipratropium (Duoneb 3 Mg/0.5 Mg (3 Ml) Ud) 3 ml IH Q2H PRN PRN Reason: Shortness of Breath Alprazolam (Xanax) 0.25 mg PO HS [facility] PRN Reason: Protocol Stop: 10/01/16 22:01 Last Admin: 09/29/16 21:44 Dose: 0.25 mg Aspirin (Ecotrin) 81 mg PO 0800 [facility] Last Admin: 09/30/16 07:50 Dose: 81 mg Collagenase (Santyl) 0 gm TOP DAILY [facility] Last Admin: 09/29/16 11:42 Dose: 1 u Enoxaparin Sodium (Lovenox) 70 mg SC Q12H [facility] PRN Reason: Protocol Last Admin: 09/30/16 07:50 Dose: 70 mg Furosemide (Lasix) 40 mg IVP DAILY [facility] Last Admin: 09/29/16 09:24 Dose: 40 mg Glimepiride (Amaryl) 4 mg PO ACBD [facility] Last Admin: 09/30/16 07:50 Dose: 4 mg Hydralazine HCl (Apresoline) 50 mg PO BID [facility] Last Admin: 09/29/16 18:02 Dose: 50 mg Linezolid (Zyvox 600mg/300ml D5w) 600 mg in 300 mls @ 200 mls/hr IVPB Q12 [facility] PRN Reason: Protocol Stop: 10/02/16 10:01 Last Admin: 09/29/16 21:43 Dose: 200 mls/hr Insulin Human Lispro (Humalog Med) 0 units SC ACHS [facility] PRN Reason: Protocol Last Admin: 09/30/16 07:59 Dose: Not Given Isosorbide Mononitrate (Imdur) 60 mg PO DAILY [facility] Last Admin: 09/29/16 09:22 Dose: 60 mg Levalbuterol HCl (Xopenex) 1.25 mg IH [id number] [facility] Last Admin: 09/30/16 07:45 Dose: 1.25 mg Metformin HCl (Glucophage) 500 mg PO BID [facility] Last Admin: 09/29/16 18:02 Dose: 500 mg Nystatin (Mycostatin Cream) 0 ea TOP TID [facility] Last Admin: 09/29/16 18:05 Dose: 1 dose Pantoprazole Sodium (Protonix Ec Tab) 40 mg PO 0630 [facility] Last Admin: 09/30/16 05:33 Dose: 40 mg Potassium Chloride (Klor-Con 10) 10 meq PO DAILY [facility] Last Admin: 09/29/16 09:23 Dose: 10 meq Sitagliptin Phosphate (Januvia) 50 mg PO DAILY [facility] Last Admin: 09/29/16 09:22 Dose: 50 mg Tiotropium [place] (Spiriva) 18 mcg IH DAILY [facility] Last Admin: 09/29/16 09:22 Dose: 18 mcg Tramadol/Acetaminophen (Ultracet 37.5/325 Mg) 1 tab PO Q6H PRN PRN Reason: Pain, moderate (4-7) Last Admin: 09/30/16 01:53 Dose: 1 tab Valsartan (Diovan) 320 mg PO DAILY [facility] Last Admin: 09/29/16 09:23 Dose: 320 mg Warfarin Sodium (Coumadin) 5 mg PO 1800 [facility] PRN Reason: Protocol Last Admin: 09/29/16 18:05 Dose: 5 mg - Labs Labs: 09/29/16 14:30 09/28/16 07:30 PT 11.3 Seconds (9.9-11.8) 09/29/16 13:45 INR 1.05 (0.93-1.08) 09/29/16 13:45 APTT 33.6 Seconds (23.7-30.8) H 09/27/16 06:30 - Constitutional Appears: Well - Head Exam Head Exam: ATRAUMATIC - Eye Exam Eye Exam: Conjunctival injection - ENT Exam ENT Exam: Mucous Membranes Dry - Neck Exam Neck Exam: Full ROM - Respiratory Exam Respiratory Exam: Clear to Ausculation Bilateral - Cardiovascular Exam Cardiovascular Exam: Irregular Rhythm - GI/Abdominal Exam GI & Abdominal Exam: Soft Additional comments: Hematoma on right groin. - Rectal Exam Rectal Exam: Deferred - Extremities Exam Additional comments: Left foot in dessing Assessment and Plan - Assessment and Plan (Free Text) Assessment: Bradicardia multiple pauses but less than 2.5 second , possibly Vagal secondary to large hematoma in groin and was also on beta [place]. No further episode of pause in last 12 hours Ch afib Anemia S/p PRBCs transfusion obesity CAD PAD moderate MR COPD Plan: Monitor in tele 24 hours for heart rate off beta [place] Monitor H & H ( today;s lab Pending) Keep Hb = 10 gm monitor groin. asymptomatic will follow
[2016-09-30] MEDS: Tiotropium 18 mcg Cap For Inhalation IH SCH (10:10)
[2016-09-30] MEDS: Linezolid 600 mg in D5W 300 ml 600 MG/300 ML BAG IVPB SCH ×2 (10:11→21:49)
[2016-09-30] MEDS: Potassium Chloride 10 mEq ER Tab PO SCH (10:11)
[2016-09-30] MEDS: Nystatin 100,000 Units/gm Cream(15 gm) TOP SCH (10:12)
[2016-09-30] MEDS: Collagenase 250 Units/gm Ointment(30 gm) TOP SCH (10:12)
[2016-09-30 10:39] LABS: BASO # 0.02 K/mm3 (0.0-2.0); BASO % 0.3 % (0.0-3.0); EOS # 0.3 (0.0-0.7); EOS % 3.7 % (1.5-5.0); GRAN % 73.3 % (50.0-68.0); LYMPH % 13.3 % (22.0-35.0); MEAN CORPUSCULAR HEMOGLOBIN 28.7 pg (25.0-35.0); MEAN CORPUSCULAR HGB CONC 31.6 g/dl (31.0-37.0); MEAN PLATELET VOLUME 9.4 fl (7.0-11.0); MONO # 0.7 (0.1-0.6); MONO % 9.4 % (1.0-6.0); PLATELET COUNT 183 10^3/uL (120.0-450.0); RED CELL DISTRIBUTION WIDTH 16.6 % (11.5-14.5); WHITE BLOOD COUNT 7.8 10^3/ul (4.5-11.0)
[2016-09-30 10:40] LABS: HEMOGLOBIN 8.9 gm/dL (12.0-16.0)
[2016-09-30 10:45] LABS: ALB/GLOB RATIO 1.5 (1.1-1.8); ALBUMIN 3.7 g/dL (3.0-4.8); ALT/SGPT 16 U/L (7-56); AST/SGOT 16 U/L (15-39); BLOOD UREA NITROGEN 24 mg/dL (7-21); CALCIUM 9.2 mg/dL (8.4-10.5); GFR AFRICAN-AMERICAN > 60; GFR NON-AFRICAN AMERICAN > 60; HDL CHOLESTEROL 30 mg/dL (29-60); LDL CHOLESTEROL 75 mg/dL (0-129); MAGNESIUM 1.9 mg/dL (1.7-2.2)
--- NOTE | 2016-09-30 10:54 | CP.PCM.PN ---
Subjective - Date & Time of Evaluation Date of Evaluation: 09/30/16 Time of Evaluation: 09:55 - Subjective Subjective: Comfortable, not in distress, afebrile. Objective - Vital Signs/Intake and Output Vital Signs (last 24 hours): Temp Pulse Resp BP Pulse Ox 97.8 F 82 18 105/51 L 98 09/29/16 06:00 09/29/16 06:00 09/29/16 06:00 09/29/16 06:00 09/28/16 17:00 Intake and Output: 09/29/16 09/29/16 06:59 18:59 Intake Total 100 Balance 100 - Medications Medications: Current Medications Albuterol/Ipratropium (Duoneb 3 Mg/0.5 Mg (3 Ml) Ud) 3 ml IH Q2H PRN PRN Reason: Shortness of Breath Alprazolam (Xanax) 0.25 mg PO HS [facility] PRN Reason: Protocol Stop: 10/01/16 22:01 Last Admin: 09/28/16 22:51 Dose: 0.25 mg Aspirin (Ecotrin) 81 mg PO 0800 [facility] Last Admin: 09/29/16 08:18 Dose: 81 mg Enoxaparin Sodium (Lovenox) 70 mg SC Q12H [facility] PRN Reason: Protocol Last Admin: 09/29/16 07:59 Dose: Not Given Furosemide (Lasix) 40 mg IVP DAILY [facility] Last Admin: 09/28/16 10:23 Dose: Not Given Glimepiride (Amaryl) 4 mg PO ACBD [facility] Last Admin: 09/29/16 08:18 Dose: 4 mg Hydralazine HCl (Apresoline) 50 mg PO BID [facility] Last Admin: 09/28/16 17:54 Dose: Not Given Linezolid (Zyvox 600mg/300ml D5w) 600 mg in 300 mls @ 200 mls/hr IVPB Q12 [facility] PRN Reason: Protocol Stop: 10/02/16 10:01 Last Admin: 09/28/16 22:50 Dose: 200 mls/hr Insulin Human Lispro (Humalog Med) 0 units SC ACHS [facility] PRN Reason: Protocol Last Admin: 09/29/16 08:18 Dose: Not Given Isosorbide Mononitrate (Imdur) 60 mg PO DAILY [facility] Last Admin: 09/28/16 10:20 Dose: 60 mg Levalbuterol HCl (Xopenex) 1.25 mg IH [id number] [facility] Last Admin: 09/29/16 07:42 Dose: 1.25 mg Metformin HCl (Glucophage) 500 mg PO BID [facility] Last Admin: 09/28/16 17:58 Dose: 500 mg Nadolol (Corgard) 10 mg PO BID [facility] Last Admin: 09/28/16 17:53 Dose: Not Given Nystatin (Mycostatin Cream) 0 ea TOP TID [facility] Last Admin: 09/29/16 07:59 Dose: Not Given Pantoprazole Sodium (Protonix Ec Tab) 40 mg PO 0630 [facility] Last Admin: 09/29/16 06:38 Dose: 40 mg Potassium Chloride (Klor-Con 10) 10 meq PO DAILY [facility] Last Admin: 09/28/16 10:20 Dose: 10 meq Sitagliptin Phosphate (Januvia) 50 mg PO DAILY [facility] Last Admin: 09/28/16 10:20 Dose: 50 mg Tiotropium [place] (Spiriva) 18 mcg IH DAILY [facility] Last Admin: 09/28/16 10:20 Dose: 18 mcg Tramadol/Acetaminophen (Ultracet 37.5/325 Mg) 1 tab PO Q6H PRN PRN Reason: Pain, moderate (4-7) Last Admin: 09/29/16 04:55 Dose: 1 tab Valsartan (Diovan) 320 mg PO DAILY [facility] Last Admin: 09/28/16 10:20 Dose: 320 mg Warfarin Sodium (Coumadin) 5 mg PO 1800 [facility] PRN Reason: Protocol Last Admin: 09/28/16 17:58 Dose: 5 mg - Labs Labs: 09/28/16 07:30 09/28/16 07:30 PT 18.1 Seconds (9.9-11.8) H 09/27/16 06:30 INR 1.68 (0.93-1.08) H 09/27/16 06:30 APTT 33.6 Seconds (23.7-30.8) H 09/27/16 06:30 - Constitutional Appears: Non-toxic, No Acute Distress - Head Exam Head Exam: NORMAL INSPECTION - Respiratory Exam Respiratory Exam: Decreased Breath Sounds - Cardiovascular Exam Cardiovascular Exam: +S1, +S2 - GI/Abdominal Exam GI & Abdominal Exam: Soft. absent: Tenderness - Extremities Exam Additional comments: left foot with dry dressings in place Assessment and Plan - Assessment and Plan (Free Text) Plan: Assessment Probable infected diabetic ulceration of the left hallux associated with trauma with probable peripheral vascular disease, growing MRSA - no evidence of osteomyelitis on MRI - patient is S/P arthrectomy and angioplasty of left sided lower extremity vasculature S/P Sepsis with acute hypoxic respiratory failure secondary to left-sided healthcare-associated pneumonia with possible gram positive cocci and/or gram negative bacilli, clinically improved and S/P treatment as well as sepsis from persistent methicillin-resistant coagulase negative staph bacteremia , probably port infection S/P removal of the port history of Group G Strep bacteremia history of E. coli UTI history of healthcare-associated pneumonia acute renal failure obesity with BMI 38 CAD GERD arthritis history of bilateral knee replacements chronic CHF COPD DM history of breast CA History of Strep bovis bacteremia (2012) S/P Port-a-cath placement Plan continue Zyvox day 6 - should complete 7-10 days of antibiotics; blood cx are negative; reviewed Podiatry plans and discussed with Dr. Hoffman will continue to monitor clinically
--- NOTE | 2016-09-30 12:01 | CP.PCM.PN ---
<Kylah Byrd - Last Filed: 09/30/16 11:58> Subjective - Date & Time of Evaluation Date of Evaluation: 09/30/16 Time of Evaluation: 11:58 - Subjective Subjective: 71 year old female was seen resting comfortably at bedside regarding left hallux ulceration. Patient complains of tenderness to her left hallux. She denies any acute overnight events. She denies any n/v/f/c/sob/cp. Objective - Vital Signs/Intake and Output Vital Signs (last 24 hours): Temp Pulse Resp BP Pulse Ox 97.4 F L 75 19 119/47 L 96 09/30/16 11:42 09/30/16 11:42 09/30/16 11:42 09/30/16 11:42 09/30/16 06:00 Intake and Output: 09/30/16 09/30/16 06:59 18:59 Intake Total 805 325 Output Total 2 Balance 803 325 - Medications Medications: Current Medications Albuterol/Ipratropium (Duoneb 3 Mg/0.5 Mg (3 Ml) Ud) 3 ml IH Q2H PRN PRN Reason: Shortness of Breath Alprazolam (Xanax) 0.25 mg PO HS [facility] PRN Reason: Protocol Stop: 10/01/16 22:01 Last Admin: 09/29/16 21:44 Dose: 0.25 mg Aspirin (Ecotrin) 81 mg PO 0800 [facility] Last Admin: 09/30/16 07:50 Dose: 81 mg Collagenase (Santyl) 0 gm TOP DAILY [facility] Last Admin: 09/30/16 10:12 Dose: 1 u Enoxaparin Sodium (Lovenox) 70 mg SC Q12H [facility] PRN Reason: Protocol Last Admin: 09/30/16 07:50 Dose: 70 mg Furosemide (Lasix) 40 mg IVP DAILY [facility] Last Admin: 09/30/16 10:11 Dose: 40 mg Glimepiride (Amaryl) 4 mg PO ACBD [facility] Last Admin: 09/30/16 07:50 Dose: 4 mg Hydralazine HCl (Apresoline) 50 mg PO BID [facility] Last Admin: 09/30/16 10:11 Dose: 50 mg Linezolid (Zyvox 600mg/300ml D5w) 600 mg in 300 mls @ 200 mls/hr IVPB Q12 [facility] PRN Reason: Protocol Stop: 10/02/16 10:01 Last Admin: 09/30/16 10:11 Dose: 200 mls/hr Insulin Human Lispro (Humalog Med) 0 units SC ACHS [facility] PRN Reason: Protocol Last Admin: 09/30/16 07:59 Dose: Not Given Isosorbide Mononitrate (Imdur) 60 mg PO DAILY [facility] Last Admin: 09/30/16 10:10 Dose: 60 mg Levalbuterol HCl (Xopenex) 1.25 mg IH [id number] [facility] Last Admin: 09/30/16 07:45 Dose: 1.25 mg Metformin HCl (Glucophage) 500 mg PO BID [facility] Last Admin: 09/30/16 10:11 Dose: 500 mg Nystatin (Mycostatin Cream) 0 ea TOP TID [facility] Last Admin: 09/30/16 10:12 Dose: 1 dose Pantoprazole Sodium (Protonix Ec Tab) 40 mg PO 0630 [facility] Last Admin: 09/30/16 05:33 Dose: 40 mg Potassium Chloride (Klor-Con 10) 10 meq PO DAILY [facility] Last Admin: 09/30/16 10:11 Dose: 10 meq Sitagliptin Phosphate (Januvia) 50 mg PO DAILY [facility] Last Admin: 09/30/16 10:10 Dose: 50 mg Tiotropium [place] (Spiriva) 18 mcg IH DAILY [facility] Last Admin: 09/30/16 10:10 Dose: 18 mcg Tramadol/Acetaminophen (Ultracet 37.5/325 Mg) 1 tab PO Q6H PRN PRN Reason: Pain, moderate (4-7) Last Admin: 09/30/16 01:53 Dose: 1 tab Valsartan (Diovan) 320 mg PO DAILY [facility] Last Admin: 09/30/16 10:10 Dose: 320 mg Warfarin Sodium (Coumadin) 5 mg PO 1800 [facility] PRN Reason: Protocol Last Admin: 09/29/16 18:05 Dose: 5 mg - Labs Labs: 09/30/16 09:45 09/30/16 09:45 PT 11.3 Seconds (9.9-11.8) 09/29/16 13:45 INR 1.05 (0.93-1.08) 09/29/16 13:45 APTT 33.6 Seconds (23.7-30.8) H 09/27/16 06:30 - Constitutional Appears: Non-toxic, No Acute Distress, Chronically Ill - Extremities Exam Additional comments: Lower Extremity Focused exam Vasc: DP and PT pulses non-palpable b/l. Mild pitting edema noted to left lower extremity. CFT < 4 seconds to digits 1-5 b/l. Skin temperature cool to cool from proximal to distal b/l. Derm: Unstageable ulceration noted to medial aspect of patients left hallux which measures approximately 1.1 cm x 2.1 cm. Periwound area is erythematous. mild amount of sanguineous drainage. no malodor, no erythema, no fluctuance or other clincal signs of infection are noted at this time. Neuro: Gross sensation diminished b/l Ortho: Tenderness on palpation to left foot - Neurological Exam Neurological Exam: Alert, Awake, Oriented x3 - Psychiatric Exam Psychiatric exam: Normal Affect, Normal Mood Assessment and Plan - Assessment and Plan (Free Text) Assessment: 71 year old female with left hallux ulceration secondary to DM, PVD Plan: Patient examined and evaluated Discussed with attending Dr. Hoffman Charts, labs and vitals reviewed; afebrile, WBC 7.8 Final wound culture results (09/24/16) are positive for MRSA Pt is optimzed, no bone infection noted Continue IV abx per ID Left hallux cleansed with betadine, dressed with optifoam dressing encouraged patient to ambulate Pt is stable for D/C, may follow up in [facility] for local wound care Podiatry will continue to follow while in house <Nikia Hoffman - Last Filed: 10/05/16 17:19> Objective - Vital Signs/Intake and Output Vital Signs (last 24 hours): Temp Pulse Resp BP Pulse Ox 98.4 F 74 18 123/58 L 93 L 10/01/16 12:00 10/01/16 12:00 10/01/16 12:00 10/01/16 12:00 10/01/16 06:00 - Labs Labs: 10/01/16 07:05 10/01/16 07:05 PT 11.3 Seconds (9.9-11.8) 09/29/16 13:45 INR 1.05 (0.93-1.08) 09/29/16 13:45 APTT 33.6 Seconds (23.7-30.8) H 09/27/16 06:30 Attending/Attestation - Attestation I have personally seen and examined this patient.: Yes I have fully participated in the care of the patient.: Yes I have reviewed all pertinent clinical information, including history, physical exam and plan: Yes
[2016-09-30 18:55] LABS: HEMOGLOBIN 8.7 gm/dL (12.0-16.0); MEAN CELL VOLUME 92.1 fL (80.0-105.0); MEAN CORPUSCULAR HEMOGLOBIN 28.7 pg (25.0-35.0); MEAN CORPUSCULAR HGB CONC 31.2 g/dl (31.0-37.0); MEAN PLATELET VOLUME 9.6 fl (7.0-11.0); RBC 3.03 10^6/uL (3.5-6.1); RED CELL DISTRIBUTION WIDTH 16.7 % (11.5-14.5); WHITE BLOOD COUNT 8.7 10^3/ul (4.5-11.0)
--- NOTE | 2016-09-30 23:21 | CP.PCM.PN ---
Subjective - Date & Time of Evaluation Date of Evaluation: 09/30/16 Time of Evaluation: 23:19 - Subjective Subjective: # 24 angiocath inserted in right arm Dx:Poor venpous return. Objective - Vital Signs/Intake and Output Vital Signs (last 24 hours): Temp Pulse Resp BP Pulse Ox 98.4 F 73 20 138/69 96 09/30/16 18:00 09/30/16 18:00 09/30/16 18:00 09/30/16 18:00 09/30/16 06:00 Intake and Output: 09/30/16 10/01/16 18:59 06:59 Intake Total 325 Balance 325 - Medications Medications: Current Medications Albuterol/Ipratropium (Duoneb 3 Mg/0.5 Mg (3 Ml) Ud) 3 ml IH Q2H PRN PRN Reason: Shortness of Breath Alprazolam (Xanax) 0.25 mg PO HS [facility] PRN Reason: Protocol Stop: 10/01/16 22:01 Last Admin: 09/30/16 21:50 Dose: 0.25 mg Aspirin (Ecotrin) 81 mg PO 0800 [facility] Last Admin: 09/30/16 07:50 Dose: 81 mg Collagenase (Santyl) 0 gm TOP DAILY [facility] Last Admin: 09/30/16 10:12 Dose: 1 u Enoxaparin Sodium (Lovenox) 70 mg SC Q12H [facility] PRN Reason: Protocol Last Admin: 09/30/16 21:49 Dose: 70 mg Furosemide (Lasix) 40 mg IVP DAILY [facility] Last Admin: 09/30/16 10:11 Dose: 40 mg Glimepiride (Amaryl) 4 mg PO ACBD [facility] Last Admin: 09/30/16 15:54 Dose: 4 mg Hydralazine HCl (Apresoline) 50 mg PO BID [facility] Last Admin: 09/30/16 17:05 Dose: 50 mg Linezolid (Zyvox 600mg/300ml D5w) 600 mg in 300 mls @ 200 mls/hr IVPB Q12 [facility] PRN Reason: Protocol Stop: 10/02/16 10:01 Last Admin: 09/30/16 21:49 Dose: 200 mls/hr Insulin Human Lispro (Humalog Med) 0 units SC ACHS [facility] PRN Reason: Protocol Last Admin: 09/30/16 16:09 Dose: 1 units Isosorbide Mononitrate (Imdur) 60 mg PO DAILY [facility] Last Admin: 09/30/16 10:10 Dose: 60 mg Levalbuterol HCl (Xopenex) 1.25 mg IH [id number] [facility] Last Admin: 09/30/16 20:11 Dose: 1.25 mg Metformin HCl (Glucophage) 500 mg PO BID [facility] Last Admin: 09/30/16 17:05 Dose: 500 mg Nystatin (Mycostatin Cream) 0 ea TOP TID [facility] Last Admin: 09/30/16 10:12 Dose: 1 dose Pantoprazole Sodium (Protonix Ec Tab) 40 mg PO 0630 [facility] Last Admin: 09/30/16 05:33 Dose: 40 mg Potassium Chloride (Klor-Con 10) 10 meq PO DAILY [facility] Last Admin: 09/30/16 10:11 Dose: 10 meq Sitagliptin Phosphate (Januvia) 50 mg PO DAILY [facility] Last Admin: 09/30/16 10:10 Dose: 50 mg Tiotropium [place] (Spiriva) 18 mcg IH DAILY [facility] Last Admin: 09/30/16 10:10 Dose: 18 mcg Tramadol/Acetaminophen (Ultracet 37.5/325 Mg) 1 tab PO Q6H PRN PRN Reason: Pain, moderate (4-7) Last Admin: 09/30/16 21:50 Dose: 1 tab Valsartan (Diovan) 320 mg PO DAILY [facility] Last Admin: 09/30/16 10:10 Dose: 320 mg Warfarin Sodium (Coumadin) 5 mg PO 1800 [facility] PRN Reason: Protocol Last Admin: 09/30/16 17:05 Dose: 5 mg - Labs Labs: 09/30/16 18:44 09/30/16 09:45 PT 11.3 Seconds (9.9-11.8) 09/29/16 13:45 INR 1.05 (0.93-1.08) 09/29/16 13:45 APTT 33.6 Seconds (23.7-30.8) H 09/27/16 06:30
[2016-10-01] MEDS: Levalbuterol 1.25 MG/3 ML Inhal Soln UD IH SCH ×3 (01:23→14:01)
[2016-10-01 02:35] VITALS: O2SAT 93
[2016-10-01] MEDS: Pantoprazole 40 mg EC Tab PO SCH (05:36)
[2016-10-01 07:29] LABS: BASO # 0.03 K/mm3 (0.0-2.0); BASO % 0.4 % (0.0-3.0); EOS # 0.2 (0.0-0.7); EOS % 3.1 % (1.5-5.0); GRAN # 4.98 (1.4-6.5); GRAN % 72.9 % (50.0-68.0); HEMOGLOBIN 8.4 gm/dL (12.0-16.0); LYMPH % 15.1 % (22.0-35.0); MEAN CELL VOLUME 91.2 fL (80.0-105.0); MEAN CORPUSCULAR HEMOGLOBIN 28.4 pg (25.0-35.0); MEAN CORPUSCULAR HGB CONC 31.1 g/dl (31.0-37.0); MEAN PLATELET VOLUME 9.5 fl (7.0-11.0); MONO # 0.6 (0.1-0.6); MONO % 8.5 % (1.0-6.0); PLATELET COUNT 192 10^3/uL (120.0-450.0); RBC 2.96 10^6/uL (3.5-6.1); RED CELL DISTRIBUTION WIDTH 16.5 % (11.5-14.5); WHITE BLOOD COUNT 6.8 10^3/ul (4.5-11.0)
[2016-10-01] MEDS: Nystatin 100,000 Units/gm Cream(15 gm) TOP SCH ×4 (07:34→15:12)
[2016-10-01] MEDS: Enoxaparin 80 mg Syringe SC SCH (07:43)
[2016-10-01] MEDS: Insulin Lispro (humaLOG) MEDIUM Coverage SC SCH ×3 (07:46→16:40)
[2016-10-01 07:47] LABS: ALB/GLOB RATIO 1.3 (1.1-1.8); ALBUMIN 3.5 g/dL (3.0-4.8); ALT/SGPT 24 U/L (7-56); AST/SGOT 14 U/L (15-39); BLOOD UREA NITROGEN 23 mg/dL (7-21); CALCIUM 9.3 mg/dL (8.4-10.5); GFR AFRICAN-AMERICAN > 60; GFR NON-AFRICAN AMERICAN > 60
[2016-10-01] MEDS: Potassium Chloride 10 mEq ER Tab PO SCH (09:39)
[2016-10-01] MEDS: Tiotropium 18 mcg Cap For Inhalation IH SCH (09:39)
[2016-10-01] MEDS: Linezolid 600 mg in D5W 300 ml 600 MG/300 ML BAG IVPB SCH (09:40)
[2016-10-01] MEDS: Collagenase 250 Units/gm Ointment(30 gm) TOP SCH (09:40)
[2016-10-01] MEDS: TraMADol/Apap 37.5/325 mg Tab PO PRN (09:56)
--- NOTE | 2016-10-01 10:21 | CP.PCM.PN ---
Subjective - Date & Time of Evaluation Date of Evaluation: 10/01/16 Time of Evaluation: 09:20 - Subjective Subjective: Comfortable on a chair, not in distress, anxious to have her foot get better. Objective - Vital Signs/Intake and Output Vital Signs (last 24 hours): Temp Pulse Resp BP Pulse Ox 97.7 F 72 20 139/55 L 93 L 10/01/16 00:01 10/01/16 05:55 10/01/16 00:01 10/01/16 00:01 10/01/16 00:01 Intake and Output: 09/30/16 10/01/16 18:59 06:59 Intake Total 325 300 Output Total 300 Balance 325 0 - Medications Medications: Current Medications Albuterol/Ipratropium (Duoneb 3 Mg/0.5 Mg (3 Ml) Ud) 3 ml IH Q2H PRN PRN Reason: Shortness of Breath Alprazolam (Xanax) 0.25 mg PO HS [facility] PRN Reason: Protocol Stop: 10/01/16 22:01 Last Admin: 09/30/16 21:50 Dose: 0.25 mg Aspirin (Ecotrin) 81 mg PO 0800 [facility] Last Admin: 09/30/16 07:50 Dose: 81 mg Collagenase (Santyl) 0 gm TOP DAILY [facility] Last Admin: 09/30/16 10:12 Dose: 1 u Enoxaparin Sodium (Lovenox) 70 mg SC Q12H [facility] PRN Reason: Protocol Last Admin: 09/30/16 21:49 Dose: 70 mg Furosemide (Lasix) 40 mg IVP DAILY [facility] Last Admin: 09/30/16 10:11 Dose: 40 mg Glimepiride (Amaryl) 4 mg PO ACBD [facility] Last Admin: 09/30/16 15:54 Dose: 4 mg Hydralazine HCl (Apresoline) 50 mg PO BID [facility] Last Admin: 09/30/16 17:05 Dose: 50 mg Linezolid (Zyvox 600mg/300ml D5w) 600 mg in 300 mls @ 200 mls/hr IVPB Q12 [facility] PRN Reason: Protocol Stop: 10/02/16 10:01 Last Admin: 09/30/16 21:49 Dose: 200 mls/hr Insulin Human Lispro (Humalog Med) 0 units SC ACHS [facility] PRN Reason: Protocol Last Admin: 09/30/16 22:00 Dose: Not Given Isosorbide Mononitrate (Imdur) 60 mg PO DAILY [facility] Last Admin: 09/30/16 10:10 Dose: 60 mg Levalbuterol HCl (Xopenex) 1.25 mg IH [id number] [facility] Last Admin: 10/01/16 01:23 Dose: 1.25 mg Metformin HCl (Glucophage) 500 mg PO BID [facility] Last Admin: 09/30/16 17:05 Dose: 500 mg Nystatin (Mycostatin Cream) 0 ea TOP TID [facility] Last Admin: 09/30/16 10:12 Dose: 1 dose Pantoprazole Sodium (Protonix Ec Tab) 40 mg PO 0630 [facility] Last Admin: 10/01/16 05:36 Dose: 40 mg Potassium Chloride (Klor-Con 10) 10 meq PO DAILY [facility] Last Admin: 09/30/16 10:11 Dose: 10 meq Sitagliptin Phosphate (Januvia) 50 mg PO DAILY [facility] Last Admin: 09/30/16 10:10 Dose: 50 mg Tiotropium [place] (Spiriva) 18 mcg IH DAILY [facility] Last Admin: 09/30/16 10:10 Dose: 18 mcg Tramadol/Acetaminophen (Ultracet 37.5/325 Mg) 1 tab PO Q6H PRN PRN Reason: Pain, moderate (4-7) Last Admin: 09/30/16 21:50 Dose: 1 tab Valsartan (Diovan) 320 mg PO DAILY [facility] Last Admin: 09/30/16 10:10 Dose: 320 mg Warfarin Sodium (Coumadin) 5 mg PO 1800 [facility] PRN Reason: Protocol Last Admin: 09/30/16 17:05 Dose: 5 mg - Labs Labs: 09/30/16 18:44 09/30/16 09:45 PT 11.3 Seconds (9.9-11.8) 09/29/16 13:45 INR 1.05 (0.93-1.08) 09/29/16 13:45 APTT 33.6 Seconds (23.7-30.8) H 09/27/16 06:30 - Constitutional Appears: Non-toxic, No Acute Distress - Head Exam Head Exam: NORMAL INSPECTION - ENT Exam ENT Exam: Mucous Membranes Moist - Neck Exam Neck Exam: absent: Meningismus - Respiratory Exam Respiratory Exam: Decreased Breath Sounds - Cardiovascular Exam Cardiovascular Exam: +S1, +S2 - GI/Abdominal Exam GI & Abdominal Exam: Soft. absent: Tenderness - Extremities Exam Additional comments: left foot with dressings in place Assessment and Plan - Assessment and Plan (Free Text) Plan: Assessment infected diabetic ulceration of the left hallux associated with trauma with probable peripheral vascular disease, growing MRSA - no evidence of osteomyelitis on MRI - patient is S/P arthrectomy and angioplasty of left sided lower extremity vasculature S/P Sepsis with acute hypoxic respiratory failure secondary to left-sided healthcare-associated pneumonia with possible gram positive cocci and/or gram negative bacilli, clinically improved and S/P treatment as well as sepsis from persistent methicillin-resistant coagulase negative staph bacteremia , probably port infection S/P removal of the port history of Group G Strep bacteremia history of E. coli UTI history of healthcare-associated pneumonia acute renal failure obesity with BMI 38 CAD GERD arthritis history of bilateral knee replacements chronic CHF COPD DM history of breast CA History of Strep bovis bacteremia (2012) S/P Port-a-cath placement Plan continue Zyvox day 7 - should complete at least 10 days of antibiotics; blood cx are negative; reviewed Podiatry plans and discussed with Dr. Hoffman will continue to monitor clinically
[2016-10-01 12:01] VITALS: BP 123/58; PULSE 74; RESP 18; TEMP 98.4
--- NOTE | 2016-10-01 14:58 | CP.PCM.PN ---
<Kylah Byrd - Last Filed: 10/01/16 14:55> Subjective - Date & Time of Evaluation Date of Evaluation: 10/01/16 Time of Evaluation: 14:55 - Subjective Subjective: 71 year old female was seen resting comfortably at bedside with family member present regarding left hallux ulceration. She admits that her left great toe is tender to palpation. She denies any acute overnight events. She denies any n/v/f /c/sob/cp. Objective - Vital Signs/Intake and Output Vital Signs (last 24 hours): Temp Pulse Resp BP Pulse Ox 98.4 F 74 18 123/58 L 93 L 10/01/16 12:00 10/01/16 12:00 10/01/16 12:00 10/01/16 12:00 10/01/16 06:00 Intake and Output: 10/01/16 10/01/16 06:59 18:59 Intake Total 300 Output Total 300 Balance 0 - Medications Medications: Current Medications Albuterol/Ipratropium (Duoneb 3 Mg/0.5 Mg (3 Ml) Ud) 3 ml IH Q2H PRN PRN Reason: Shortness of Breath Alprazolam (Xanax) 0.25 mg PO HS [facility] PRN Reason: Protocol Stop: 10/01/16 22:01 Last Admin: 09/30/16 21:50 Dose: 0.25 mg Aspirin (Ecotrin) 81 mg PO 0800 [facility] Last Admin: 10/01/16 07:43 Dose: 81 mg Collagenase (Santyl) 0 gm TOP DAILY [facility] Last Admin: 10/01/16 09:40 Dose: 1 u Enoxaparin Sodium (Lovenox) 70 mg SC Q12H [facility] PRN Reason: Protocol Last Admin: 10/01/16 07:43 Dose: 70 mg Furosemide (Lasix) 40 mg IVP DAILY [facility] Last Admin: 10/01/16 09:39 Dose: 40 mg Glimepiride (Amaryl) 4 mg PO ACBD [facility] Last Admin: 10/01/16 07:43 Dose: 4 mg Hydralazine HCl (Apresoline) 50 mg PO BID [facility] Last Admin: 10/01/16 09:39 Dose: 50 mg Insulin Human Lispro (Humalog Med) 0 units SC ACHS [facility] PRN Reason: Protocol Last Admin: 10/01/16 07:46 Dose: Not Given Isosorbide Mononitrate (Imdur) 60 mg PO DAILY [facility] Last Admin: 10/01/16 09:39 Dose: 60 mg Levalbuterol HCl (Xopenex) 1.25 mg IH [id number] [facility] Last Admin: 10/01/16 14:01 Dose: 1.25 mg Linezolid (Zyvox) 600 mg PO BID [facility] PRN Reason: Protocol Last Admin: 10/01/16 11:08 Dose: Not Given Metformin HCl (Glucophage) 500 mg PO BID [facility] Last Admin: 10/01/16 09:38 Dose: 500 mg Nystatin (Mycostatin Cream) 0 ea TOP TID [facility] Last Admin: 10/01/16 09:40 Dose: 1 dose Pantoprazole Sodium (Protonix Ec Tab) 40 mg PO 0630 [facility] Last Admin: 10/01/16 05:36 Dose: 40 mg Potassium Chloride (Klor-Con 10) 10 meq PO DAILY [facility] Last Admin: 10/01/16 09:39 Dose: 10 meq Sitagliptin Phosphate (Januvia) 50 mg PO DAILY [facility] Last Admin: 10/01/16 09:39 Dose: 50 mg Tiotropium [place] (Spiriva) 18 mcg IH DAILY [facility] Last Admin: 10/01/16 09:39 Dose: 18 mcg Tramadol/Acetaminophen (Ultracet 37.5/325 Mg) 1 tab PO Q6H PRN PRN Reason: Pain, moderate (4-7) Last Admin: 10/01/16 09:56 Dose: 1 tab Valsartan (Diovan) 320 mg PO DAILY [facility] Last Admin: 10/01/16 09:39 Dose: 320 mg Warfarin Sodium (Coumadin) 5 mg PO 1800 [facility] PRN Reason: Protocol Last Admin: 09/30/16 17:05 Dose: 5 mg - Labs Labs: 10/01/16 07:05 10/01/16 07:05 PT 11.3 Seconds (9.9-11.8) 09/29/16 13:45 INR 1.05 (0.93-1.08) 09/29/16 13:45 APTT 33.6 Seconds (23.7-30.8) H 09/27/16 06:30 - Constitutional Appears: Non-toxic, No Acute Distress - Extremities Exam Additional comments: Lower Extremity Focused exam Vasc: DP and PT pulses non-palpable b/l. Mild pitting edema noted to left lower extremity. CFT < 4 seconds to digits 1-5 b/l. Skin temperature cool to cool from proximal to distal b/l. Derm: Unstageable ulceration noted to medial aspect of patients left hallux which measures approximately 1.1 cm x 2.1 cm. Periwound area is erythematous. mild amount of sanguineous drainage. no malodor, no erythema, no fluctuance or other clincal signs of infection are noted at this time. Neuro: Gross sensation diminished b/l Ortho: Tenderness on palpation to left foot - Neurological Exam Neurological Exam: Alert, Awake, Oriented x3 - Psychiatric Exam Psychiatric exam: Normal Affect, Normal Mood Assessment and Plan - Assessment and Plan (Free Text) Assessment: 71 year old female with left hallux ulceration secondary to DM, PVD Plan: Patient examined and evaluated Discussed with attending Dr. Hoffman Charts, labs and vitals reviewed; afebrile, WBC 6.8 Final wound culture results (09/24/16) are positive for MRSA Pt is optimzed, no bone infection noted Continue IV abx per ID Left hallux dressed with santyl, optifoam dressing encouraged patient to ambulate Pt is stable for D/C, may follow up in [facility] for local wound care Podiatry will continue to follow while in house <Nikia Hoffman - Last Filed: 10/05/16 17:22> Objective - Vital Signs/Intake and Output Vital Signs (last 24 hours): Temp Pulse Resp BP Pulse Ox 98.4 F 74 18 123/58 L 93 L 10/01/16 12:00 10/01/16 12:00 10/01/16 12:00 10/01/16 12:00 10/01/16 06:00 - Labs Labs: 10/01/16 07:05 10/01/16 07:05 PT 11.3 Seconds (9.9-11.8) 09/29/16 13:45 INR 1.05 (0.93-1.08) 09/29/16 13:45 APTT 33.6 Seconds (23.7-30.8) H 09/27/16 06:30 Attending/Attestation - Attestation I have personally seen and examined this patient.: Yes I have fully participated in the care of the patient.: Yes I have reviewed all pertinent clinical information, including history, physical exam and plan: Yes
--- NOTE | 2016-10-01 17:17 | CP.PCM.PN ---
Subjective - Date & Time of Evaluation Date of Evaluation: 10/01/16 Time of Evaluation: 09:15 - Subjective Subjective: Denies chesty pain, dizzyness Objective - Vital Signs/Intake and Output Vital Signs (last 24 hours): Temp Pulse Resp BP Pulse Ox 98.4 F 74 18 123/58 L 93 L 10/01/16 12:00 10/01/16 12:00 10/01/16 12:00 10/01/16 12:00 10/01/16 06:00 Intake and Output: 10/01/16 10/01/16 06:59 18:59 Intake Total 300 Output Total 300 Balance 0 - Labs Labs: 10/01/16 07:05 10/01/16 07:05 PT 11.3 Seconds (9.9-11.8) 09/29/16 13:45 INR 1.05 (0.93-1.08) 09/29/16 13:45 APTT 33.6 Seconds (23.7-30.8) H 09/27/16 06:30 - Constitutional Appears: Well - Head Exam Head Exam: ATRAUMATIC - Eye Exam Eye Exam: Periorbital tenderness - ENT Exam ENT Exam: Mucous Membranes Dry - Neck Exam Neck Exam: Full ROM - Respiratory Exam Respiratory Exam: Accessory Muscle Use, Clear to Ausculation Bilateral - Cardiovascular Exam Cardiovascular Exam: REGULAR RHYTHM Assessment and Plan - Assessment and Plan (Free Text) Assessment: Bradicardia ... improved off betablocker groin hamatoma.. 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
== END 2016-10-01 16:58 | DRG 271 ==
LOC: ED 14:44 → ERH 17:02 → 5RNO 18:31 → 2RNO 09-27 16:47
PROVIDERS: ADMIT Internal Medicine; ATTEND Internal Medicine
PROC: 30233N1 Transfusion of Nonautologous Red Blood Cells into Peripheral Vein, Percutaneous Approach (ICD-10-PCS; 2016-09-25)
PROC: B40DYZZ Plain Radiography of Aorta and Bilateral Lower Extremity Arteries using Other Contrast (ICD-10-PCS; principal; 2016-09-27)
PROC: 04CL3ZZ Extirpation of Matter from Left Femoral Artery, Percutaneous Approach (ICD-10-PCS; 2016-09-27)
PROC: 047C3DZ Dilation of Right Common Iliac Artery with Intraluminal Device, Percutaneous Approach (ICD-10-PCS; 2016-09-27)
PROC: 047L3Z1 Dilation of Left Femoral Artery using Drug-Coated Balloon, Percutaneous Approach (ICD-10-PCS; 2016-09-27)
PROC: 047N3Z1 Dilation of Left Popliteal Artery using Drug-Coated Balloon, Percutaneous Approach (ICD-10-PCS; 2016-09-27)
PROC: 047S3ZZ Dilation of Left Posterior Tibial Artery, Percutaneous Approach (ICD-10-PCS; 2016-09-27)
DX: E11.51 Type 2 diabetes mellitus with diabetic peripheral angiopathy without gangrene (principal); I13.0 Hypertensive heart and chronic kidney disease with heart failure and stage 1 through stage 4 chronic kidney disease, or unspecified chronic kidney disease; N17.9 Acute kidney failure, unspecified; E11.22 Type 2 diabetes mellitus with diabetic chronic kidney disease; I50.30 Unspecified diastolic (congestive) heart failure; E66.01 Morbid (severe) obesity due to excess calories; I25.82 Chronic total occlusion of coronary artery; L76.32 Postprocedural hematoma of skin and subcutaneous tissue following other procedure; E11.621 Type 2 diabetes mellitus with foot ulcer; L97.529 Non-pressure chronic ulcer of other part of left foot with unspecified severity; I27.2 Other secondary pulmonary hypertension; N18.9 Chronic kidney disease, unspecified; I25.10 Atherosclerotic heart disease of native coronary artery without angina pectoris; F17.210 Nicotine dependence, cigarettes, uncomplicated; E03.9 Hypothyroidism, unspecified; E78.00 Pure hypercholesterolemia, unspecified; G47.30 Sleep apnea, unspecified; I48.91 Unspecified atrial fibrillation; Z87.01 Personal history of pneumonia (recurrent); Z86.69 Personal history of other diseases of the nervous system and sense organs; Z86.19 Personal history of other infectious and parasitic diseases; D50.9 Iron deficiency anemia, unspecified; Z85.3 Personal history of malignant neoplasm of breast; Z92.21 Personal history of antineoplastic chemotherapy; M19.90 Unspecified osteoarthritis, unspecified site; M54.9 Dorsalgia, unspecified; Z96.653 Presence of artificial knee joint, bilateral; R26.81 Unsteadiness on feet; Z91.81 History of falling; K21.9 Gastro-esophageal reflux disease without esophagitis; R32 Unspecified urinary incontinence; Z87.440 Personal history of urinary (tract) infections; F41.9 Anxiety disorder, unspecified; R40.2412 Glasgow coma scale score 13-15, at arrival to emergency department; Z90.710 Acquired absence of both cervix and uterus; Z68.38 Body mass index [BMI] 38.0-38.9, adult; L08.9 Local infection of the skin and subcutaneous tissue, unspecified; Y84.8 Other medical procedures as the cause of abnormal reaction of the patient, or of later complication, without mention of misadventure at the time of the procedure; I34.0 Nonrheumatic mitral (valve) insufficiency; R00.1 Bradycardia, unspecified; R41.0 Disorientation, unspecified; B95.62 Methicillin resistant Staphylococcus aureus infection as the cause of diseases classified elsewhere

== ENCOUNTER 2016-10-01 16:55 | Inpatient (IN) | payer MEDICARE, OTHER ==
[2016-10-01 18:10] VITALS: BMI 42.1
[2016-10-01] MEDS ORDERED: Levalbuterol 1.25 MG/3 ML Inhal Soln UD IH PRN (18:10)
[2016-10-01] MEDS ORDERED: Albuterol-Ipratrop 3 mg / 0.5 (3 ml) UD IH PRN (18:10)
[2016-10-01] MEDS: Levalbuterol 1.25 MG/3 ML Inhal Soln UD IH SCH (19:30)
[2016-10-01] MEDS ORDERED: Pneumococcal 23-Valent Vaccine IM ONE (19:59)
[2016-10-01] MEDS: Insulin Lispro (humaLOG) MEDIUM Coverage SC SCH (21:41)
[2016-10-02] MEDS: Levalbuterol 1.25 MG/3 ML Inhal Soln UD IH SCH ×5 (01:05→20:14)
[2016-10-02] MEDS: Enoxaparin 80 mg Syringe SC SCH ×2 (06:08→17:57)
[2016-10-02] MEDS: Pantoprazole 40 mg EC Tab PO SCH (06:08)
[2016-10-02] MEDS: Insulin Lispro (humaLOG) MEDIUM Coverage SC SCH ×4 (06:40→21:56)
[2016-10-02] MEDS: Potassium Chloride 10 mEq ER Tab PO SCH (08:17)
[2016-10-02] MEDS: Nystatin 100,000 Units/gm Cream(15 gm) TOP SCH ×3 (09:16→17:57)
[2016-10-02] MEDS: Tiotropium 18 mcg Cap For Inhalation IH SCH (09:17)
[2016-10-02] MEDS: Collagenase 250 Units/gm Ointment(30 gm) TOP SCH (09:17)
--- NOTE | 2016-10-02 10:38 | CP.PCM.PN ---
<Kylah Byrd - Last Filed: 10/02/16 10:35> Subjective - Date & Time of Evaluation Date of Evaluation: 10/02/16 Time of Evaluation: 10:35 - Subjective Subjective: 71 year old female was seen resting comfortably at bedside with attending, Dr. Hoffman, regarding left hallux ulceration. She admits that her left great toe is tender to palpation. Dressing is intact to her left hallux. She denies any n/ v/f/c/sob/cp. Objective - Vital Signs/Intake and Output Vital Signs (last 24 hours): Temp Pulse Resp BP Pulse Ox 98.3 F 70 22 186/89 H 10/01/16 19:45 10/01/16 19:45 10/01/16 19:45 10/02/16 08:19 Intake and Output: 10/02/16 10/02/16 06:59 18:59 Intake Total 400 Balance 400 - Medications Medications: Current Medications Albuterol/Ipratropium (Duoneb 3 Mg/0.5 Mg (3 Ml) Ud) 3 ml IH Q2H PRN; Protocol PRN Reason: Shortness of Breath Alprazolam (Xanax) 0.25 mg PO HS [facility] PRN Reason: Protocol Stop: 10/08/16 22:01 Last Admin: 10/01/16 21:41 Dose: 0.25 mg Aspirin (Ecotrin) 81 mg PO 0800 [facility] PRN Reason: Protocol Last Admin: 10/02/16 08:16 Dose: 81 mg Collagenase (Santyl) 1 gm TOP DAILY [facility] PRN Reason: Protocol Last Admin: 10/02/16 09:17 Dose: Not Given Enoxaparin Sodium (Lovenox) 70 mg SC 0600,1800 [facility] PRN Reason: Protocol Last Admin: 10/02/16 06:08 Dose: 70 mg Furosemide (Lasix) 40 mg IVP 0800 [facility] PRN Reason: Protocol Last Admin: 10/02/16 08:19 Dose: 40 mg Glimepiride (Amaryl) 4 mg PO ACBD [facility] PRN Reason: Protocol Last Admin: 10/02/16 08:15 Dose: 4 mg Hydralazine HCl (Apresoline) 50 mg PO 1000,1800 [facility] PRN Reason: Protocol Last Admin: 10/02/16 09:15 Dose: Not Given Insulin Human Lispro (Humalog Med) 0 units SC ACHS [facility] PRN Reason: Protocol Last Admin: 10/02/16 06:40 Dose: Not Given Isosorbide Mononitrate (Imdur) 60 mg PO 0630 [facility] PRN Reason: Protocol Last Admin: 10/02/16 06:08 Dose: 60 mg Levalbuterol HCl (Xopenex) 1.25 mg IH [id number] [facility] PRN Reason: Protocol Last Admin: 10/02/16 07:21 Dose: 1.25 mg Linezolid (Zyvox) 600 mg PO BID [facility] PRN Reason: Protocol Last Admin: 10/02/16 09:18 Dose: 600 mg Metformin HCl (Glucophage) 500 mg PO 0730,1700 [facility] PRN Reason: Protocol Last Admin: 10/02/16 08:16 Dose: 500 mg Nystatin (Mycostatin Cream) 1 ea TOP TID [facility] PRN Reason: Protocol Last Admin: 10/02/16 09:16 Dose: 1 applic Pantoprazole Sodium (Protonix Ec Tab) 40 mg PO 0630 [facility] PRN Reason: Protocol Last Admin: 10/02/16 06:08 Dose: 40 mg Potassium Chloride (Klor-Con 10) 10 meq PO 0800 [facility] PRN Reason: Protocol Last Admin: 10/02/16 08:17 Dose: 10 meq Sitagliptin Phosphate (Januvia) 50 mg PO DAILY [facility] PRN Reason: Protocol Last Admin: 10/02/16 09:16 Dose: 50 mg Tiotropium [place] (Spiriva) 18 mcg IH DAILY [facility] PRN Reason: Protocol Last Admin: 10/02/16 09:17 Dose: 18 mcg Valsartan (Diovan) 320 mg PO DAILY [facility] PRN Reason: Protocol Last Admin: 10/02/16 09:15 Dose: 320 mg Warfarin Sodium (Coumadin) 5 mg PO 1800 [facility] PRN Reason: Protocol - Constitutional Appears: Non-toxic, No Acute Distress - Extremities Exam Additional comments: Lower Extremity Focused exam Vasc: DP and PT pulses non-palpable b/l. +2 pitting edema noted to left lower extremity. CFT < 4 seconds to digits 1-5 b/l. Skin temperature cool to cool from proximal to distal b/l. Derm: Unstageable ulceration noted to medial aspect of patients left hallux which measures approximately 1.1 cm x 2.1 cm. Periwound area is erythematous and macerated. mild amount of sanguineous drainage. no malodor, no erythema, no fluctuance or other clincal signs of infection are noted at this time. Neuro: Gross sensation diminished b/l Ortho: Tenderness on palpation to left foot - Neurological Exam Neurological Exam: Alert, Awake, Oriented x3 - Psychiatric Exam Psychiatric exam: Normal Affect, Normal Mood Assessment and Plan - Assessment and Plan (Free Text) Assessment: 71 year old female with left hallux ulceration secondary to DM, PVD Plan: Patient examined and evaluated with attending Dr. Hoffman Charts, labs and vitals reviewed; afebrile, WBC 6.8 (10/01/16) Final wound culture results (09/24/16) are positive for MRSA Pt is optimzed, no bone infection noted Continue IV abx per ID Left hallux dressed with xeroform, 4x4 gauze encouraged patient to ambulate Pt is stable for D/C, may follow up in [facility] for local wound care Podiatry will continue to follow while in house <Nikia Hoffman - Last Filed: 10/05/16 17:31> Objective - Vital Signs/Intake and Output Vital Signs (last 24 hours): Temp Pulse Resp BP Pulse Ox 98.2 F 95 H 20 119/51 L 97 10/04/16 05:46 10/05/16 09:53 10/04/16 05:46 10/05/16 09:53 10/04/16 05:46 - Medications Medications: Current Medications Acetaminophen (Tylenol 325mg Tab) 650 mg PO Q6H PRN PRN Reason: Fever >100.4 F Last Admin: 10/04/16 18:15 Dose: 650 mg Albuterol/Ipratropium (Duoneb 3 Mg/0.5 Mg (3 Ml) Ud) 3 ml IH Q2H PRN; Protocol PRN Reason: Shortness of Breath Aspirin (Ecotrin) 81 mg PO 0800 [facility] PRN Reason: Protocol Last Admin: 10/05/16 08:04 Dose: 81 mg Collagenase (Santyl) 1 gm TOP DAILY [facility] PRN Reason: Protocol Last Admin: 10/04/16 13:12 Dose: Not Given Enoxaparin Sodium (Lovenox) 70 mg SC 0600,1800 [facility] PRN Reason: Protocol Last Admin: 10/05/16 05:54 Dose: 70 mg Furosemide (Lasix) 40 mg IVP 0800 [facility] PRN Reason: Protocol Last Admin: 10/05/16 08:07 Dose: 40 mg Glimepiride (Amaryl) 4 mg PO ACBD [facility] PRN Reason: Protocol Last Admin: 10/05/16 08:04 Dose: 4 mg Hydralazine HCl (Apresoline) 50 mg PO 1000,1800 [facility] PRN Reason: Protocol Last Admin: 10/05/16 09:53 Dose: 50 mg Insulin Human Lispro (Humalog Med) 0 units SC ACHS [facility] PRN Reason: Protocol Last Admin: 10/05/16 13:32 Dose: Not Given Isosorbide Mononitrate (Imdur) 60 mg PO 0630 [facility] PRN Reason: Protocol Last Admin: 10/05/16 05:54 Dose: 60 mg Levalbuterol HCl (Xopenex) 1.25 mg IH [id number] [facility] PRN Reason: Protocol Last Admin: 10/05/16 13:20 Dose: Not Given Metformin HCl (Glucophage) 500 mg PO 0730,1700 [facility] PRN Reason: Protocol Last Admin: 10/05/16 08:04 Dose: 500 mg Nicotine (Nicoderm Cq) 1 patch TD DAILY [facility] Last Admin: 10/05/16 10:32 Dose: 1 patch Nystatin (Mycostatin Cream) 1 ea TOP TID [facility] PRN Reason: Protocol Last Admin: 10/05/16 13:32 Dose: Not Given Pantoprazole Sodium (Protonix Ec Tab) 40 mg PO 0630 [facility] PRN Reason: Protocol Last Admin: 10/05/16 05:54 Dose: 40 mg Potassium Chloride (Klor-Con 10) 10 meq PO 0800 [facility] PRN Reason: Protocol Last Admin: 10/05/16 08:05 Dose: 10 meq Sitagliptin Phosphate (Januvia) 50 mg PO DAILY [facility] PRN Reason: Protocol Last Admin: 10/05/16 09:54 Dose: 50 mg Tiotropium [place] (Spiriva) 18 mcg IH DAILY [facility] PRN Reason: Protocol Last Admin: 10/05/16 09:54 Dose: 18 mcg Valsartan (Diovan) 320 mg PO DAILY [facility] PRN Reason: Protocol Last Admin: 10/05/16 09:53 Dose: 320 mg Vancomycin HCl (Vancocin 25 Mg/Ml (Oral Use)) 250 mg PO QID [facility] PRN Reason: Protocol Warfarin Sodium (Coumadin) 5 mg PO 1800 [facility] PRN Reason: Protocol Last Admin: 10/04/16 17:57 Dose: 5 mg Zolpidem Tartrate (Ambien) 5 mg PO HS PRN; Protocol PRN Reason: Insomnia Last Admin: 10/04/16 21:33 Dose: 5 mg - Labs Labs: 10/03/16 07:30 10/03/16 07:30 PT 14.6 Seconds (9.9-11.8) H 10/04/16 08:30 INR 1.35 (0.93-1.08) H 10/04/16 08:30 Attending/Attestation - Attestation I have personally seen and examined this patient.: Yes I have fully participated in the care of the patient.: Yes I have reviewed all pertinent clinical information, including history, physical exam and plan: Yes
[2016-10-03] MEDS: Levalbuterol 1.25 MG/3 ML Inhal Soln UD IH SCH ×4 (02:28→21:30)
[2016-10-03] MEDS: Enoxaparin 80 mg Syringe SC SCH ×2 (06:36→17:32)
[2016-10-03] MEDS: Pantoprazole 40 mg EC Tab PO SCH (06:36)
[2016-10-03] MEDS: Insulin Lispro (humaLOG) MEDIUM Coverage SC SCH ×4 (06:37→22:07)
[2016-10-03 08:09] LABS: BASO # 0.02 K/mm3 (0.0-2.0); BASO % 0.3 % (0.0-3.0); EOS # 0.2 (0.0-0.7); EOS % 3.1 % (1.5-5.0); GRAN # 4.69 (1.4-6.5); HEMOGLOBIN 8.5 gm/dL (12.0-16.0); LYMPH # 0.9 (1.2-3.4); LYMPH % 14.6 % (22.0-35.0); MEAN CELL VOLUME 91.4 fL (80.0-105.0); MEAN CORPUSCULAR HEMOGLOBIN 28.1 pg (25.0-35.0); MEAN CORPUSCULAR HGB CONC 30.8 g/dl (31.0-37.0); MEAN PLATELET VOLUME 9.2 fl (7.0-11.0); MONO # 0.5 (0.1-0.6); PLATELET COUNT 204 10^3/uL (120.0-450.0); RBC 3.02 10^6/uL (3.5-6.1); RED CELL DISTRIBUTION WIDTH 16.7 % (11.5-14.5); WHITE BLOOD COUNT 6.4 10^3/ul (4.5-11.0)
[2016-10-03 08:17] LABS: INR 1.2 (0.93-1.08)
[2016-10-03 08:19] LABS: ALB/GLOB RATIO 1.3 (1.1-1.8); ALBUMIN 3.8 g/dL (3.0-4.8); ALT/SGPT 26 U/L (7-56); AST/SGOT 17 U/L (15-39); BLOOD UREA NITROGEN 20 mg/dL (7-21); CALCIUM 9.9 mg/dL (8.4-10.5); GFR AFRICAN-AMERICAN > 60; GFR NON-AFRICAN AMERICAN > 60
[2016-10-03] MEDS: Potassium Chloride 10 mEq ER Tab PO SCH (08:22)
--- NOTE | 2016-10-03 10:51 | CON ---
DATE: 10/02/2016 The patient is seen earlier today in room 321. CHIEF COMPLAINT: Weakness times several days. 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 PAST MEDICAL HISTORY: Significant for coronary artery disease, GERD, asthma, congestive heart failure, arthritis, breast cancer, diabetes, and Streptococcus bovis. PAST SURGICAL HISTORY: *------* of Port-A-Cath. ALLERGIES: THE PATIENT HAS NO KNOWN ALLERGIES. REVIEW OF SYSTEMS: Reveals no fevers and chills, no nausea, no vomiting, no chest pain. PHYSICAL EXAMINATION: VITAL SIGNS: The patient is in bed with temperature of 98, blood pressure is 120/70, respiratory rate of 16. HEENT: Unremarkable. NECK: Supple. HEART: Normal S1 and S2. LUNGS: Decreased breath sounds. ABDOMEN: Soft, nontender. LABORATORY DATA: Reveals white count of 8.7, hemoglobin of 8, hematocrit is 27, platelets of 210. BUN of 24, creatinine of 0.8. Microbiology is reviewed. ASSESSMENT AND PLAN: This 71-year-old female with a left foot hallux methicillin-resistant Staphylococcus aureus with status post arthrectomy, angioplasty and a negative MRI for osteomyelitis day #8 of Zyvox and we will complete 10 days of Zyvox as per Dr. Palomino's recommendation and we will follow with you. Review of orders, the patient is on Zyvox, today would be day 8 of 10 days. The patient is also on Coumadin and last platelet count of 192. We will follow closely with you. Benjamin Obrien MD
[2016-10-03] MEDS: Nystatin 100,000 Units/gm Cream(15 gm) TOP SCH ×3 (10:59→17:33)
[2016-10-03] MEDS: Tiotropium 18 mcg Cap For Inhalation IH SCH (10:59)
--- NOTE | 2016-10-03 11:47 | CP.PCM.PN ---
<Kylah Byrd - Last Filed: 10/03/16 11:44> Subjective - Date & Time of Evaluation Date of Evaluation: 10/03/16 Time of Evaluation: 11:45 - Subjective Subjective: 71 year old female was seen resting comfortably at bedside with attending, Dr. Hoffman, regarding left hallux ulceration. Patient is sleepy this morning. Dressing is intact to her left hallux. She denies any n/v/f/c/sob/cp. Objective - Vital Signs/Intake and Output Vital Signs (last 24 hours): Temp Pulse Resp BP Pulse Ox 97.8 F 81 18 145/64 100 10/03/16 10:00 10/03/16 10:00 10/03/16 10:00 10/03/16 10:00 10/03/16 10:00 - Medications Medications: Current Medications Acetaminophen (Tylenol 325mg Tab) 650 mg PO Q6H PRN PRN Reason: Fever >100.4 F Albuterol/Ipratropium (Duoneb 3 Mg/0.5 Mg (3 Ml) Ud) 3 ml IH Q2H PRN; Protocol PRN Reason: Shortness of Breath Alprazolam (Xanax) 0.25 mg PO HS [facility] PRN Reason: Protocol Stop: 10/09/16 22:01 Last Admin: 10/02/16 21:56 Dose: 0.25 mg Aspirin (Ecotrin) 81 mg PO 0800 [facility] PRN Reason: Protocol Last Admin: 10/03/16 08:22 Dose: 81 mg Collagenase (Santyl) 1 gm TOP DAILY [facility] PRN Reason: Protocol Last Admin: 10/02/16 09:17 Dose: Not Given Enoxaparin Sodium (Lovenox) 70 mg SC 0600,1800 [facility] PRN Reason: Protocol Last Admin: 10/03/16 06:36 Dose: 70 mg Furosemide (Lasix) 40 mg IVP 0800 [facility] PRN Reason: Protocol Last Admin: 10/03/16 08:24 Dose: 40 mg Glimepiride (Amaryl) 4 mg PO ACBD [facility] PRN Reason: Protocol Last Admin: 10/03/16 06:36 Dose: 4 mg Hydralazine HCl (Apresoline) 50 mg PO 1000,1800 [facility] PRN Reason: Protocol Last Admin: 10/02/16 17:53 Dose: 50 mg Insulin Human Lispro (Humalog Med) 0 units SC ACHS [facility] PRN Reason: Protocol Last Admin: 10/03/16 06:37 Dose: Not Given Isosorbide Mononitrate (Imdur) 60 mg PO 0630 [facility] PRN Reason: Protocol Last Admin: 10/03/16 06:36 Dose: 60 mg Levalbuterol HCl (Xopenex) 1.25 mg IH [id number] [facility] PRN Reason: Protocol Last Admin: 10/03/16 07:28 Dose: 1.25 mg Linezolid (Zyvox) 600 mg PO BID [facility] PRN Reason: Protocol Last Admin: 10/02/16 17:58 Dose: 600 mg Metformin HCl (Glucophage) 500 mg PO 0730,1700 [facility] PRN Reason: Protocol Last Admin: 10/03/16 06:36 Dose: 500 mg Nystatin (Mycostatin Cream) 1 ea TOP TID [facility] PRN Reason: Protocol Last Admin: 10/02/16 17:57 Dose: 1 applic Pantoprazole Sodium (Protonix Ec Tab) 40 mg PO 0630 [facility] PRN Reason: Protocol Last Admin: 10/03/16 06:36 Dose: 40 mg Potassium Chloride (Klor-Con 10) 10 meq PO 0800 [facility] PRN Reason: Protocol Last Admin: 10/03/16 08:22 Dose: 10 meq Sitagliptin Phosphate (Januvia) 50 mg PO DAILY [facility] PRN Reason: Protocol Last Admin: 10/02/16 09:16 Dose: 50 mg Tiotropium [place] (Spiriva) 18 mcg IH DAILY [facility] PRN Reason: Protocol Last Admin: 10/02/16 09:17 Dose: 18 mcg Valsartan (Diovan) 320 mg PO DAILY [facility] PRN Reason: Protocol Last Admin: 10/02/16 09:15 Dose: 320 mg Warfarin Sodium (Coumadin) 5 mg PO 1800 [facility] PRN Reason: Protocol Last Admin: 10/02/16 17:54 Dose: 5 mg - Labs Labs: 10/03/16 07:30 10/03/16 07:30 PT 13.0 Seconds (9.9-11.8) H 10/03/16 07:30 INR 1.20 (0.93-1.08) H 10/03/16 07:30 - Constitutional Appears: Non-toxic, No Acute Distress - Extremities Exam Additional comments: Lower Extremity Focused exam Vasc: DP and PT pulses non-palpable b/l. +2 pitting edema noted to left lower extremity. CFT < 4 seconds to digits 1-5 b/l. Skin temperature cool to cool from proximal to distal b/l. Derm: Unstageable ulceration noted to medial aspect of patients left hallux which measures approximately 1.1 cm x 2.1 cm. Periwound area is erythematous and macerated. mild amount of sanguineous drainage. no malodor, no erythema, no fluctuance or other clincal signs of infection are noted at this time. Neuro: Gross sensation diminished b/l Ortho: Tenderness on palpation to left foot - Neurological Exam Neurological Exam: Awake - Psychiatric Exam Psychiatric exam: Normal Affect, Normal Mood Assessment and Plan - Assessment and Plan (Free Text) Assessment: 71 year old female with left hallux ulceration secondary to DM, PVD Plan: Patient examined and evaluated with attending Dr. Hoffman Charts, labs and vitals reviewed; afebrile, WBC 6.4 Final wound culture results (09/24/16) are positive for MRSA Pt is optimzed, no bone infection noted Continue IV abx per ID Left hallux dressed with xeroform, 4x4 gauze encouraged patient to ambulate Pt is stable for D/C, may follow up in [facility] for local wound care Podiatry will continue to follow while in house <Nikia Hoffman - Last Filed: 10/05/16 18:34> Objective - Vital Signs/Intake and Output Vital Signs (last 24 hours): Temp Pulse Resp BP Pulse Ox 98.2 F 69 20 120/65 97 10/04/16 05:46 10/05/16 17:23 10/04/16 05:46 10/05/16 17:23 10/04/16 05:46 - Medications Medications: Current Medications Acetaminophen (Tylenol 325mg Tab) 650 mg PO Q6H PRN PRN Reason: Fever >100.4 F Last Admin: 10/04/16 18:15 Dose: 650 mg Albuterol/Ipratropium (Duoneb 3 Mg/0.5 Mg (3 Ml) Ud) 3 ml IH Q2H PRN; Protocol PRN Reason: Shortness of Breath Aspirin (Ecotrin) 81 mg PO 0800 [facility] PRN Reason: Protocol Last Admin: 10/05/16 08:04 Dose: 81 mg Collagenase (Santyl) 1 gm TOP DAILY [facility] PRN Reason: Protocol Last Admin: 10/05/16 17:28 Dose: Not Given Enoxaparin Sodium (Lovenox) 70 mg SC 0600,1800 [facility] PRN Reason: Protocol Last Admin: 10/05/16 17:27 Dose: 70 mg Furosemide (Lasix) 40 mg IVP 0800 [facility] PRN Reason: Protocol Last Admin: 10/05/16 08:07 Dose: 40 mg Glimepiride (Amaryl) 4 mg PO ACBD [facility] PRN Reason: Protocol Last Admin: 10/05/16 17:23 Dose: 4 mg Hydralazine HCl (Apresoline) 50 mg PO 1000,1800 [facility] PRN Reason: Protocol Last Admin: 10/05/16 17:23 Dose: 50 mg Insulin Human Lispro (Humalog Med) 0 units SC ACHS [facility] PRN Reason: Protocol Last Admin: 10/05/16 17:26 Dose: 1 units Isosorbide Mononitrate (Imdur) 60 mg PO 0630 [facility] PRN Reason: Protocol Last Admin: 10/05/16 05:54 Dose: 60 mg Levalbuterol HCl (Xopenex) 1.25 mg IH [id number] [facility] PRN Reason: Protocol Last Admin: 10/05/16 13:20 Dose: Not Given Metformin HCl (Glucophage) 500 mg PO 0730,1700 [facility] PRN Reason: Protocol Last Admin: 10/05/16 17:26 Dose: 500 mg Nicotine (Nicoderm Cq) 1 patch TD DAILY [facility] Last Admin: 10/05/16 10:32 Dose: 1 patch Nystatin (Mycostatin Cream) 1 ea TOP TID [facility] PRN Reason: Protocol Last Admin: 10/05/16 17:28 Dose: Not Given Pantoprazole Sodium (Protonix Ec Tab) 40 mg PO 0630 [facility] PRN Reason: Protocol Last Admin: 10/05/16 05:54 Dose: 40 mg Potassium Chloride (Klor-Con 10) 10 meq PO 0800 [facility] PRN Reason: Protocol Last Admin: 10/05/16 08:05 Dose: 10 meq Sitagliptin Phosphate (Januvia) 50 mg PO DAILY [facility] PRN Reason: Protocol Last Admin: 10/05/16 09:54 Dose: 50 mg Tiotropium [place] (Spiriva) 18 mcg IH DAILY [facility] PRN Reason: Protocol Last Admin: 10/05/16 09:54 Dose: 18 mcg Valsartan (Diovan) 320 mg PO DAILY [facility] PRN Reason: Protocol Last Admin: 10/05/16 09:53 Dose: 320 mg Vancomycin HCl (Vancocin 25 Mg/Ml (Oral Use)) 250 mg PO QID [facility] PRN Reason: Protocol Last Admin: 10/05/16 17:28 Dose: 250 mg Warfarin Sodium (Coumadin) 5 mg PO 1800 [facility] PRN Reason: Protocol Last Admin: 10/05/16 17:24 Dose: 5 mg Zolpidem Tartrate (Ambien) 5 mg PO HS PRN; Protocol PRN Reason: Insomnia Last Admin: 10/04/16 21:33 Dose: 5 mg - Labs Labs: 10/03/16 07:30 10/03/16 07:30 PT 14.6 Seconds (9.9-11.8) H 10/04/16 08:30 INR 1.35 (0.93-1.08) H 10/04/16 08:30 Attending/Attestation - Attestation I have personally seen and examined this patient.: Yes I have fully participated in the care of the patient.: Yes I have reviewed all pertinent clinical information, including history, physical exam and plan: Yes
[2016-10-03] MEDS: Collagenase 250 Units/gm Ointment(30 gm) TOP SCH (11:59)
--- NOTE | 2016-10-03 16:05 | CP.PCM.PN ---
Subjective - Date & Time of Evaluation Date of Evaluation: 10/03/16 Time of Evaluation: 11:45 - Subjective Subjective: Comfortable, afebrile, not in distress. Objective - Vital Signs/Intake and Output Vital Signs (last 24 hours): Temp Pulse Resp BP Pulse Ox 98 F 97 H 20 177/94 H 98 10/03/16 06:00 10/03/16 06:00 10/03/16 06:00 10/03/16 06:00 10/03/16 06:00 - Medications Medications: Current Medications Acetaminophen (Tylenol 325mg Tab) 650 mg PO Q6H PRN PRN Reason: Fever >100.4 F Albuterol/Ipratropium (Duoneb 3 Mg/0.5 Mg (3 Ml) Ud) 3 ml IH Q2H PRN; Protocol PRN Reason: Shortness of Breath Alprazolam (Xanax) 0.25 mg PO HS WAYNE PRN Reason: Protocol Stop: 10/09/16 22:01 Last Admin: 10/02/16 21:56 Dose: 0.25 mg Aspirin (Ecotrin) 81 mg PO 0800 WAYNE PRN Reason: Protocol Last Admin: 10/02/16 08:16 Dose: 81 mg Collagenase (Santyl) 1 gm TOP DAILY WAYNE PRN Reason: Protocol Last Admin: 10/02/16 09:17 Dose: Not Given Enoxaparin Sodium (Lovenox) 70 mg SC 0600,1800 WAYNE PRN Reason: Protocol Last Admin: 10/03/16 06:36 Dose: 70 mg Furosemide (Lasix) 40 mg IVP 0800 WAYNE PRN Reason: Protocol Last Admin: 10/02/16 08:19 Dose: 40 mg Glimepiride (Amaryl) 4 mg PO ACBD WAYNE PRN Reason: Protocol Last Admin: 10/03/16 06:36 Dose: 4 mg Hydralazine HCl (Apresoline) 50 mg PO 1000,1800 WAYNE PRN Reason: Protocol Last Admin: 10/02/16 17:53 Dose: 50 mg Insulin Human Lispro (Humalog Med) 0 units SC ACHS WAYNE PRN Reason: Protocol Last Admin: 10/03/16 06:37 Dose: Not Given Isosorbide Mononitrate (Imdur) 60 mg PO 0630 WAYNE PRN Reason: Protocol Last Admin: 10/03/16 06:36 Dose: 60 mg Levalbuterol HCl (Xopenex) 1.25 mg IH [id number] WAYNE PRN Reason: Protocol Last Admin: 10/03/16 07:28 Dose: 1.25 mg Linezolid (Zyvox) 600 mg PO BID WAYNE PRN Reason: Protocol Last Admin: 10/02/16 17:58 Dose: 600 mg Metformin HCl (Glucophage) 500 mg PO 0730,1700 WAYNE PRN Reason: Protocol Last Admin: 10/03/16 06:36 Dose: 500 mg Nystatin (Mycostatin Cream) 1 ea TOP TID WAYNE PRN Reason: Protocol Last Admin: 10/02/16 17:57 Dose: 1 applic Pantoprazole Sodium (Protonix Ec Tab) 40 mg PO 0630 WAYNE PRN Reason: Protocol Last Admin: 10/03/16 06:36 Dose: 40 mg Potassium Chloride (Klor-Con 10) 10 meq PO 0800 WAYNE PRN Reason: Protocol Last Admin: 10/02/16 08:17 Dose: 10 meq Sitagliptin Phosphate (Januvia) 50 mg PO DAILY WAYNE PRN Reason: Protocol Last Admin: 10/02/16 09:16 Dose: 50 mg Tiotropium Inez (Spiriva) 18 mcg IH DAILY WAYNE PRN Reason: Protocol Last Admin: 10/02/16 09:17 Dose: 18 mcg Valsartan (Diovan) 320 mg PO DAILY WAYNE PRN Reason: Protocol Last Admin: 10/02/16 09:15 Dose: 320 mg Warfarin Sodium (Coumadin) 5 mg PO 1800 WAYNE PRN Reason: Protocol Last Admin: 10/02/16 17:54 Dose: 5 mg - Labs Labs: 10/03/16 07:30 - Constitutional Appears: Non-toxic, No Acute Distress - Head Exam Head Exam: NORMAL INSPECTION - Neck Exam Neck Exam: absent: Meningismus - Respiratory Exam Respiratory Exam: Decreased Breath Sounds - Cardiovascular Exam Cardiovascular Exam: +S1, +S2 - GI/Abdominal Exam GI & Abdominal Exam: Soft. absent: Tenderness - Extremities Exam Additional comments: left foot with dressings in place Assessment and Plan - Assessment and Plan (Free Text) Plan: Assessment infected diabetic ulceration of the left hallux associated with trauma with probable peripheral vascular disease, growing MRSA - no evidence of osteomyelitis on MRI - patient is S/P arthrectomy and angioplasty of left sided lower extremity vasculature S/P Sepsis with acute hypoxic respiratory failure secondary to left-sided healthcare-associated pneumonia with possible gram positive cocci and/or gram negative bacilli, clinically improved and S/P treatment as well as sepsis from persistent methicillin-resistant coagulase negative staph bacteremia , probably port infection S/P removal of the port history of Group G Strep bacteremia history of E. coli UTI history of healthcare-associated pneumonia acute renal failure obesity with BMI 38 CAD GERD arthritis history of bilateral knee replacements chronic CHF COPD DM history of breast CA History of Strep bovis bacteremia (2012) S/P Port-a-cath placement Plan continue Zyvox day 9 - should complete at least 10 days of antibiotics; blood cx are negative; reviewed Podiatry plans and discussed with Dr. Hoffman will continue to monitor clinically
--- NOTE | 2016-10-03 16:56 | HP ---
HISTORY OF PRESENT ILLNESS: The patient is 71 years' old who was admitted with left foot redness and discomfort to the point where she had difficulty walking, sleeping, started on p.o. antibiotic as outpatient, and did not feel that was working who was monitoring her wound, so when she was seen by Dr. Henriquez on 09/24/2016, she was found to have ulcer on big toe, so she was admitted for IV antibiotics. The patient was evaluated by Dr. Maldonado Barnett and underwent angiography and angioplasty. She had left iliac and superficial femoral artery atherectomy and angioplasty. She also had left popliteal artery drug-eluted balloon angioplasty, left posterior tibial angioplasty, and right common iliac angioplasty and stent placement. PAST MEDICAL HISTORY: Significant for; 1. Hypertension and coronary artery disease, status post cardiac catheterization 2 years ago, was found to have RCA occlusion with good collaterals. 2. Severe peripheral vascular disease. 3. Hypertension. 4. Non-insulin dependent diabetes. 5. Pulmonary hypertension. 6. Heavy smoking. 7. GI AVMs with chronic blood loss requiring blood transfusion. She had multiple endoscopies and colonoscopies recently. ALLERGIES: SHE IS NOT ALLERGIC TO ANY MEDICATIONS. MEDICATIONS: At home, she is on metformin 500 twice a day, hydralazine 50 twice a day, Coumadin 5 mg daily, Diovan 320 daily, Spiriva 18 mcg daily. She is on Janumet. She is also getting Protonix, nadolol, isosorbide 60 mg daily, Amaryl 4 mg twice a day, Lasix 40 twice a day, aspirin 81 daily. SOCIAL HISTORY: She was an active smoker up until prior to admission. REVIEW OF SYSTEMS: Significant for difficulty walking and left foot pain. PHYSICAL EXAMINATION: GENERAL: She is awake and alert, communicative. VITAL SIGNS: She is afebrile, pulse 70, respirations 22, blood pressure 186/82. LUNGS: Bilateral fair air entry. Diffusely decreased breath sounds. No rhonchi or crackles. HEART: Reveals S1, S2 audible. ABDOMEN: Soft, diffuse, nontender. No rebound, no guarding. NEUROLOGIC: The patient is awake and alert. EXTREMITIES: Left toe is in dressing. She has erythema of both legs, left more than the right. ASSESSMENT: 1. Morbid obesity. 2. Peripheral vascular disease, status post angioplasty of left superficial femoral artery and left iliac. 3. Hypertension. 4. Coronary artery disease. 5. Peripheral vascular disease. 6. Chronic anemia. 7. Non-insulin dependent diabetes. 8. Congestive heart failure. 9. Chronic obstructive pulmonary disease. PLAN: Currently, the patient is on Coumadin 5 mg daily. She is on valsartan, nebulizer treatment, metformin 500 twice a day. Monitor her blood sugar. Follow her PT, INR, CBC, and CMP in the morning. The patient is requesting for some sleeping aid for tonight because she has difficulty falling asleep, so I will give a small dose of Xanax since Ambien makes her confused and disoriented. Edwige Kirby MD
[2016-10-04] MEDS: Levalbuterol 1.25 MG/3 ML Inhal Soln UD IH SCH ×4 (02:31→19:50)
[2016-10-04] MEDS: Pantoprazole 40 mg EC Tab PO SCH (05:59)
[2016-10-04] MEDS: Enoxaparin 80 mg Syringe SC SCH ×2 (05:59→17:59)
[2016-10-04] MEDS: Insulin Lispro (humaLOG) MEDIUM Coverage SC SCH ×4 (06:46→21:32)
[2016-10-04] MEDS: Potassium Chloride 10 mEq ER Tab PO SCH (08:12)
[2016-10-04 09:03] LABS: INR 1.35 (0.93-1.08); PROTHROMBIN TIME 14.6 Seconds (9.9-11.8)
[2016-10-04] MEDS: Nystatin 100,000 Units/gm Cream(15 gm) TOP SCH ×3 (10:27→17:59)
[2016-10-04] MEDS: Tiotropium 18 mcg Cap For Inhalation IH SCH (10:27)
--- NOTE | 2016-10-04 11:55 | PN ---
SUBJECTIVE: The patient is a 71-year-old, seen and examined. According to the nurse, the patient complained to the daughter that she is not able to sleep at night. She was given dose of Xanax last night since she become confused and disoriented with Ambien; however, her daughter brought Ambien from home and she was given Ambien along with Xanax, so the patient was found to be very sleepy and according to nurse, she was trying to get out naked. PHYSICAL EXAMINATION: GENERAL: She is sleepy, but arousable. No chest pain. No shortness of breath. VITAL SIGNS: She is afebrile, pulse 86, respirations 14, and blood pressure 143/63. HEART: S1 and S2 audible. LUNGS: Bilateral rhonchi. No expiratory rhonchi, decreased *------* breath sounds. ABDOMEN: Soft, obese, and nontender. No rebound. No guarding. EXTREMITIES: Left foot is in the dressing. NEUROLOGIC: She is awake and alert, communicative, and moves all extremities. LABORATORY DATA: WBC 6.4, hemoglobin 8.5, hematocrit 27.6, and platelets 204. PT 13.0 and INR 1.0. Chemistry; sodium 141, potassium 4.0, chloride 104, CO2 of 27, BUN 20, creatinine 0.7, and blood sugar 175. LFTs are within normal limits. ASSESSMENT: 1. Left big toe cellulitis and diabetic ulcer. 2. Peripheral vascular disease, status post angioplasty. 3. Hypertension. 4. Pulmonary hypertension. 5. Chronic obstructive pulmonary disease. 6. Coronary artery disease. 7. Ilr-Iofuodf-jhfnhqnbi diabetes. 8. Morbid obesity. PLAN: We will discontinue Xanax and start her on 5 mg of Ambien. We will continue her on warfarin 5 mg daily. We will followup her PT/INR in a.m. *------* we will discontinue her Lovenox. We will reevaluate the patient in a.m. Edwige Kirby MD
[2016-10-04] MEDS: Collagenase 250 Units/gm Ointment(30 gm) TOP SCH (13:12)
--- NOTE | 2016-10-04 17:31 | CP.PCM.PN ---
<Monserrat Rodriguez - Last Filed: 10/04/16 18:31> Subjective - Date & Time of Evaluation Date of Evaluation: 10/04/16 Time of Evaluation: 11:35 - Subjective Subjective: 71 year old female was seen resting comfortably in her chair with attending, Dr. Hoffman, regarding left hallux ulceration. Patient states she is still feeling pain in the left foot but has been walking around with her walker. Dressing is intact to her left hallux. She denies any n/v/f/c/sob/cp Objective - Vital Signs/Intake and Output Vital Signs (last 24 hours): Temp Pulse Resp BP Pulse Ox 98.2 F 93 H 20 120/47 L 97 10/04/16 05:46 10/04/16 10:25 10/04/16 05:46 10/04/16 10:25 10/04/16 05:46 - Medications Medications: Current Medications Acetaminophen (Tylenol 325mg Tab) 650 mg PO Q6H PRN PRN Reason: Fever >100.4 F Albuterol/Ipratropium (Duoneb 3 Mg/0.5 Mg (3 Ml) Ud) 3 ml IH Q2H PRN; Protocol PRN Reason: Shortness of Breath Aspirin (Ecotrin) 81 mg PO 0800 WAYNE PRN Reason: Protocol Last Admin: 10/04/16 08:11 Dose: 81 mg Collagenase (Santyl) 1 gm TOP DAILY WAYNE PRN Reason: Protocol Last Admin: 10/04/16 13:12 Dose: Not Given Enoxaparin Sodium (Lovenox) 70 mg SC 0600,1800 WAYNE PRN Reason: Protocol Last Admin: 10/04/16 05:59 Dose: 70 mg Furosemide (Lasix) 40 mg IVP 0800 WAYNE PRN Reason: Protocol Last Admin: 10/04/16 08:14 Dose: 40 mg Glimepiride (Amaryl) 4 mg PO ACBD WAYNE PRN Reason: Protocol Last Admin: 10/04/16 08:11 Dose: 4 mg Hydralazine HCl (Apresoline) 50 mg PO 1000,1800 WAYNE PRN Reason: Protocol Last Admin: 10/04/16 10:25 Dose: 50 mg Insulin Human Lispro (Humalog Med) 0 units SC ACHS WAYNE PRN Reason: Protocol Last Admin: 10/04/16 13:10 Dose: 1 units Isosorbide Mononitrate (Imdur) 60 mg PO 0630 WAYNE PRN Reason: Protocol Last Admin: 10/04/16 05:59 Dose: 60 mg Levalbuterol HCl (Xopenex) 1.25 mg IH [id number] WAYNE PRN Reason: Protocol Last Admin: 10/04/16 13:56 Dose: 1.25 mg Linezolid (Zyvox) 600 mg PO BID WAYNE PRN Reason: Protocol Last Admin: 10/04/16 10:27 Dose: 600 mg Metformin HCl (Glucophage) 500 mg PO 0730,1700 WAYNE PRN Reason: Protocol Last Admin: 10/04/16 08:12 Dose: 500 mg Nicotine (Nicoderm Cq) 1 patch TD DAILY WAYNE Last Admin: 10/04/16 12:11 Dose: 1 patch Nystatin (Mycostatin Cream) 1 ea TOP TID WAYNE PRN Reason: Protocol Last Admin: 10/04/16 13:11 Dose: Not Given Pantoprazole Sodium (Protonix Ec Tab) 40 mg PO 0630 WAYNE PRN Reason: Protocol Last Admin: 10/04/16 05:59 Dose: 40 mg Potassium Chloride (Klor-Con 10) 10 meq PO 0800 WAYNE PRN Reason: Protocol Last Admin: 10/04/16 08:12 Dose: 10 meq Sitagliptin Phosphate (Januvia) 50 mg PO DAILY WAYNE PRN Reason: Protocol Last Admin: 10/04/16 10:27 Dose: 50 mg Tiotropium Pillow (Spiriva) 18 mcg IH DAILY WAYNE PRN Reason: Protocol Last Admin: 10/04/16 10:27 Dose: 18 mcg Valsartan (Diovan) 320 mg PO DAILY WAYNE PRN Reason: Protocol Last Admin: 10/04/16 10:26 Dose: 320 mg Warfarin Sodium (Coumadin) 5 mg PO 1800 WAYNE PRN Reason: Protocol Last Admin: 10/03/16 17:31 Dose: 5 mg Zolpidem Tartrate (Ambien) 5 mg PO HS PRN; Protocol PRN Reason: Insomnia Last Admin: 10/03/16 22:04 Dose: 5 mg - Labs Labs: 10/03/16 07:30 10/03/16 07:30 PT 14.6 Seconds (9.9-11.8) H 10/04/16 08:30 INR 1.35 (0.93-1.08) H 10/04/16 08:30 - Constitutional Appears: Well, Non-toxic, No Acute Distress - Extremities Exam Additional comments: Lower Extremity Focused exam Vasc: DP and PT pulses non-palpable B/L. +2 pitting edema noted to left lower extremity. CFT < 4 seconds to digits 1-5 B/L. Skin temperature cool to cool from proximal to distal b/l. Derm: Unstageable ulceration noted to medial aspect of left hallux measuring approximately 1.0 cm x 2.1 cm. Periwound area is erythematous and macerated. No drainage noted today. No malodor, no erythema, no fluctuance or other clinical signs of infection are noted at this time. Neuro: Gross sensation diminished b/l Ortho: Tenderness on palpation to left foot - Neurological Exam Neurological Exam: Alert, Awake, Oriented x3 - Psychiatric Exam Psychiatric exam: Normal Affect, Normal Mood Assessment and Plan - Assessment and Plan (Free Text) Assessment: 71 year old female with left hallux ulceration secondary to DM, PVD Plan: Patient examined and evaluated with attending Dr. Hoffman Charts, labs and vitals reviewed; afebrile, WBC 6.4 ESR ordered today Continue IV abx per ID Left hallux dressed with betadine pad and 4x4 gauze Encouraged the patient to continue ambulation Pt is stable for D/C, may follow up in [facility] for local wound care Podiatry will continue to follow while in house <Nikia Hoffman - Last Filed: 10/05/16 18:40> Objective - Vital Signs/Intake and Output Vital Signs (last 24 hours): Temp Pulse Resp BP Pulse Ox 98.2 F 69 20 120/65 97 10/04/16 05:46 10/05/16 17:23 10/04/16 05:46 10/05/16 17:23 10/04/16 05:46 - Medications Medications: Current Medications Acetaminophen (Tylenol 325mg Tab) 650 mg PO Q6H PRN PRN Reason: Fever >100.4 F Last Admin: 10/04/16 18:15 Dose: 650 mg Albuterol/Ipratropium (Duoneb 3 Mg/0.5 Mg (3 Ml) Ud) 3 ml IH Q2H PRN; Protocol PRN Reason: Shortness of Breath Aspirin (Ecotrin) 81 mg PO 0800 WAYNE PRN Reason: Protocol Last Admin: 10/05/16 08:04 Dose: 81 mg Collagenase (Santyl) 1 gm TOP DAILY WAYNE PRN Reason: Protocol Last Admin: 10/05/16 17:28 Dose: Not Given Enoxaparin Sodium (Lovenox) 70 mg SC 0600,1800 WAYNE PRN Reason: Protocol Last Admin: 10/05/16 17:27 Dose: 70 mg Furosemide (Lasix) 40 mg IVP 0800 WAYNE PRN Reason: Protocol Last Admin: 10/05/16 08:07 Dose: 40 mg Glimepiride (Amaryl) 4 mg PO ACBD WAYNE PRN Reason: Protocol Last Admin: 10/05/16 17:23 Dose: 4 mg Hydralazine HCl (Apresoline) 50 mg PO 1000,1800 WAYNE PRN Reason: Protocol Last Admin: 10/05/16 17:23 Dose: 50 mg Insulin Human Lispro (Humalog Med) 0 units SC ACHS WAYNE PRN Reason: Protocol Last Admin: 10/05/16 17:26 Dose: 1 units Isosorbide Mononitrate (Imdur) 60 mg PO 0630 WAYNE PRN Reason: Protocol Last Admin: 10/05/16 05:54 Dose: 60 mg Levalbuterol HCl (Xopenex) 1.25 mg IH [id number] WAYNE PRN Reason: Protocol Last Admin: 10/05/16 13:20 Dose: Not Given Metformin HCl (Glucophage) 500 mg PO 0730,1700 WAYNE PRN Reason: Protocol Last Admin: 10/05/16 17:26 Dose: 500 mg Nicotine (Nicoderm Cq) 1 patch TD DAILY WAYNE Last Admin: 10/05/16 10:32 Dose: 1 patch Nystatin (Mycostatin Cream) 1 ea TOP TID WAYNE PRN Reason: Protocol Last Admin: 10/05/16 17:28 Dose: Not Given Pantoprazole Sodium (Protonix Ec Tab) 40 mg PO 0630 WAYNE PRN Reason: Protocol Last Admin: 10/05/16 05:54 Dose: 40 mg Potassium Chloride (Klor-Con 10) 10 meq PO 0800 WAYNE PRN Reason: Protocol Last Admin: 10/05/16 08:05 Dose: 10 meq Sitagliptin Phosphate (Januvia) 50 mg PO DAILY WAYNE PRN Reason: Protocol Last Admin: 10/05/16 09:54 Dose: 50 mg Tiotropium Pillow (Spiriva) 18 mcg IH DAILY WAYNE PRN Reason: Protocol Last Admin: 10/05/16 09:54 Dose: 18 mcg Valsartan (Diovan) 320 mg PO DAILY WAYNE PRN Reason: Protocol Last Admin: 10/05/16 09:53 Dose: 320 mg Vancomycin HCl (Vancocin 25 Mg/Ml (Oral Use)) 250 mg PO QID WAYNE PRN Reason: Protocol Last Admin: 10/05/16 17:28 Dose: 250 mg Warfarin Sodium (Coumadin) 5 mg PO 1800 WAYNE PRN Reason: Protocol Last Admin: 10/05/16 17:24 Dose: 5 mg Zolpidem Tartrate (Ambien) 5 mg PO HS PRN; Protocol PRN Reason: Insomnia Last Admin: 10/04/16 21:33 Dose: 5 mg - Labs Labs: 10/03/16 07:30 10/03/16 07:30 PT 14.6 Seconds (9.9-11.8) H 10/04/16 08:30 INR 1.35 (0.93-1.08) H 10/04/16 08:30 Attending/Attestation - Attestation I have personally seen and examined this patient.: Yes I have fully participated in the care of the patient.: Yes I have reviewed all pertinent clinical information, including history, physical exam and plan: Yes
[2016-10-05] MEDS: Levalbuterol 1.25 MG/3 ML Inhal Soln UD IH SCH ×5 (02:00→21:17)
--- NOTE | 2016-10-05 03:15 | PN ---
DATE: 10/04/2016 SUBJECTIVE: The patient is a 71-year-old, seen and examined, sitting on the chair. She is very upset and agitated because she lost her cell phone. She does admit. She slept well last night. No chest pain. No shortness of breath. No nausea, vomiting, or diarrhea. PHYSICAL EXAMINATION VITAL SIGNS: She is afebrile. Pulse 70, respirations 20, and blood pressure 109/62. LUNGS: Bilateral fair air flow. No rhonchi or crackle. HEART: S1 and S2 audible. ABDOMEN: Soft, obese and nontender. No rebound. No guarding. She has abdominal and cranial fold, improving erythema. NEUROLOGIC: She is awake and alert, communicative. LABORATORY DATA: PT is 14.6, INR 1.35. Blood sugar is 153. ASSESSMENT AND PLAN: 1. Left big toe cellulitis. 2. Severe peripheral vascular disease status post angioplasty. 3. Hypertension. 4. Coronary artery disease. 5. Non-insulin dependent diabetes. 6. Pulmonary hypertension. 7. Chronic anemia with *------* status post multiple endoscopies. 8. Morbid obesity. PLAN: We will continue the patient on Lovenox along with Coumadin. She is going to get 5 mg today. We will follow up PT/INR on Thursday and she is currently on Zyvox. We will follow up on CBC and CMP on Thursday. Edwige Kirby MD
[2016-10-05] MEDS: Enoxaparin 80 mg Syringe SC SCH ×2 (05:54→17:27)
[2016-10-05] MEDS: Pantoprazole 40 mg EC Tab PO SCH (05:54)
[2016-10-05] MEDS: Insulin Lispro (humaLOG) MEDIUM Coverage SC SCH ×4 (06:34→22:08)
[2016-10-05] MEDS: Potassium Chloride 10 mEq ER Tab PO SCH (08:05)
[2016-10-05] MEDS: Nystatin 100,000 Units/gm Cream(15 gm) TOP SCH ×3 (09:54→17:28)
[2016-10-05] MEDS: Tiotropium 18 mcg Cap For Inhalation IH SCH (09:54)
--- NOTE | 2016-10-05 15:54 | CP.PCM.PN ---
<MichaelMonserrat - Last Filed: 10/05/16 22:29> Subjective - Date & Time of Evaluation Date of Evaluation: 10/05/16 Time of Evaluation: 14:00 - Subjective Subjective: 71 year old female was seen resting comfortably in bed regarding left hallux ulceration. Patient is asleep upon visit and states she has been getting a lot of rest today. Dressing is intact to her left hallux and surgical shoe is on upon visit. She denies any F/C/N/V/SOB. Objective - Vital Signs/Intake and Output Vital Signs (last 24 hours): Temp Pulse Resp BP Pulse Ox 98.2 F 95 H 20 119/51 L 97 10/04/16 05:46 10/05/16 09:53 10/04/16 05:46 10/05/16 09:53 10/04/16 05:46 - Medications Medications: Current Medications Acetaminophen (Tylenol 325mg Tab) 650 mg PO Q6H PRN PRN Reason: Fever >100.4 F Last Admin: 10/04/16 18:15 Dose: 650 mg Albuterol/Ipratropium (Duoneb 3 Mg/0.5 Mg (3 Ml) Ud) 3 ml IH Q2H PRN; Protocol PRN Reason: Shortness of Breath Aspirin (Ecotrin) 81 mg PO 0800 [facility] PRN Reason: Protocol Last Admin: 10/05/16 08:04 Dose: 81 mg Collagenase (Santyl) 1 gm TOP DAILY [facility] PRN Reason: Protocol Last Admin: 10/04/16 13:12 Dose: Not Given Enoxaparin Sodium (Lovenox) 70 mg SC 0600,1800 [facility] PRN Reason: Protocol Last Admin: 10/05/16 05:54 Dose: 70 mg Furosemide (Lasix) 40 mg IVP 0800 [facility] PRN Reason: Protocol Last Admin: 10/05/16 08:07 Dose: 40 mg Glimepiride (Amaryl) 4 mg PO ACBD [facility] PRN Reason: Protocol Last Admin: 10/05/16 08:04 Dose: 4 mg Hydralazine HCl (Apresoline) 50 mg PO 1000,1800 [facility] PRN Reason: Protocol Last Admin: 10/05/16 09:53 Dose: 50 mg Insulin Human Lispro (Humalog Med) 0 units SC ACHS [facility] PRN Reason: Protocol Last Admin: 10/05/16 13:32 Dose: Not Given Isosorbide Mononitrate (Imdur) 60 mg PO 0630 [facility] PRN Reason: Protocol Last Admin: 10/05/16 05:54 Dose: 60 mg Levalbuterol HCl (Xopenex) 1.25 mg IH [id number] [facility] PRN Reason: Protocol Last Admin: 10/05/16 13:20 Dose: Not Given Linezolid (Zyvox) 600 mg PO BID [facility] PRN Reason: Protocol Last Admin: 10/05/16 09:55 Dose: 600 mg Metformin HCl (Glucophage) 500 mg PO 0730,1700 [facility] PRN Reason: Protocol Last Admin: 10/05/16 08:04 Dose: 500 mg Nicotine (Nicoderm Cq) 1 patch TD DAILY [facility] Last Admin: 10/05/16 10:32 Dose: 1 patch Nystatin (Mycostatin Cream) 1 ea TOP TID [facility] PRN Reason: Protocol Last Admin: 10/05/16 13:32 Dose: Not Given Pantoprazole Sodium (Protonix Ec Tab) 40 mg PO 0630 [facility] PRN Reason: Protocol Last Admin: 10/05/16 05:54 Dose: 40 mg Potassium Chloride (Klor-Con 10) 10 meq PO 0800 [facility] PRN Reason: Protocol Last Admin: 10/05/16 08:05 Dose: 10 meq Sitagliptin Phosphate (Januvia) 50 mg PO DAILY [facility] PRN Reason: Protocol Last Admin: 10/05/16 09:54 Dose: 50 mg Tiotropium [place] (Spiriva) 18 mcg IH DAILY [facility] PRN Reason: Protocol Last Admin: 10/05/16 09:54 Dose: 18 mcg Valsartan (Diovan) 320 mg PO DAILY [facility] PRN Reason: Protocol Last Admin: 10/05/16 09:53 Dose: 320 mg Vancomycin HCl (Vancocin 25 Mg/Ml (Oral Use)) 250 mg PO QID [facility] PRN Reason: Protocol Warfarin Sodium (Coumadin) 5 mg PO 1800 [facility] PRN Reason: Protocol Last Admin: 10/04/16 17:57 Dose: 5 mg Zolpidem Tartrate (Ambien) 5 mg PO HS PRN; Protocol PRN Reason: Insomnia Last Admin: 10/04/16 21:33 Dose: 5 mg - Labs Labs: 10/03/16 07:30 10/03/16 07:30 PT 14.6 Seconds (9.9-11.8) H 10/04/16 08:30 INR 1.35 (0.93-1.08) H 10/04/16 08:30 - Extremities Exam Additional comments: Lower extremity focused exam Vasc: DP and PT pulses non-palpable B/L. +2 pitting edema noted to left lower extremity. CFT < 4 seconds to digits 1-5 B/L. Skin temperature cool to cool from proximal to distal b/l. Derm: Unstageable ulceration noted to medial aspect of left hallux measuring approximately 1.0 cm x 2.1 cm. Periwound area is erythematous and slightly macerated. Minor serosanguinous drainage noted on dressing. No malodor, no erythema, no fluctuance or other clinical signs of infection are noted at this time. Neuro: Gross sensation diminished b/l Ortho: Tenderness on palpation to left foot Assessment and Plan - Assessment and Plan (Free Text) Assessment: 71 year old female with left hallux ulceration secondary to DM, PVD Plan: Patient examined and evaluated with attending Dr. Hoffman Charts, labs and vitals reviewed; afebrile, WBC 6.4, ESR 75 Continue IV abx per ID Left hallux dressed with betadine pad and 4x4 gauze Pt is stable for D/C, may follow up in [facility] for local wound care Podiatry will continue to follow while in house <Nikia Hoffman - Last Filed: 10/06/16 19:46> Objective - Vital Signs/Intake and Output Vital Signs (last 24 hours): Temp Pulse Resp BP Pulse Ox 97.4 F L 73 18 136/56 L 94 L 10/06/16 16:03 10/06/16 17:58 10/06/16 16:03 10/06/16 17:58 10/06/16 16:03 - Medications Medications: Current Medications Acetaminophen (Tylenol 325mg Tab) 650 mg PO Q6H PRN PRN Reason: Fever >100.4 F Last Admin: 10/06/16 18:04 Dose: 650 mg Albuterol/Ipratropium (Duoneb 3 Mg/0.5 Mg (3 Ml) Ud) 3 ml IH Q2H PRN; Protocol PRN Reason: Shortness of Breath Aspirin (Ecotrin) 81 mg PO 0800 [facility] PRN Reason: Protocol Last Admin: 10/06/16 08:50 Dose: 81 mg Collagenase (Santyl) 1 gm TOP DAILY [facility] PRN Reason: Protocol Last Admin: 10/06/16 18:02 Dose: Not Given Furosemide (Lasix) 40 mg IVP 0800 [facility] PRN Reason: Protocol Last Admin: 10/06/16 08:53 Dose: 40 mg Glimepiride (Amaryl) 4 mg PO ACBD [facility] PRN Reason: Protocol Last Admin: 10/06/16 17:57 Dose: 4 mg Hydralazine HCl (Apresoline) 50 mg PO 1000,1800 [facility] PRN Reason: Protocol Last Admin: 10/06/16 17:58 Dose: 50 mg Insulin Human Lispro (Humalog Med) 0 units SC ACHS [facility] PRN Reason: Protocol Last Admin: 10/06/16 18:01 Dose: Not Given Isosorbide Mononitrate (Imdur) 60 mg PO 0630 [facility] PRN Reason: Protocol Last Admin: 10/06/16 05:43 Dose: 60 mg Levalbuterol HCl (Xopenex) 1.25 mg IH [id number] [facility] PRN Reason: Protocol Last Admin: 10/06/16 19:06 Dose: Not Given Metformin HCl (Glucophage) 500 mg PO 0730,1700 [facility] PRN Reason: Protocol Last Admin: 10/06/16 18:01 Dose: 500 mg Nicotine (Nicoderm Cq) 1 patch TD DAILY [facility] Last Admin: 10/06/16 09:57 Dose: 1 patch Nystatin (Mycostatin Cream) 1 ea TOP TID [facility] PRN Reason: Protocol Last Admin: 10/06/16 18:02 Dose: Not Given Pantoprazole Sodium (Protonix Ec Tab) 40 mg PO 0630 [facility] PRN Reason: Protocol Last Admin: 10/06/16 05:43 Dose: 40 mg Potassium Chloride (Klor-Con 10) 10 meq PO 0800 [facility] PRN Reason: Protocol Last Admin: 10/06/16 08:51 Dose: 10 meq Sitagliptin Phosphate (Januvia) 50 mg PO DAILY [facility] PRN Reason: Protocol Last Admin: 10/06/16 09:56 Dose: 50 mg Tiotropium [place] (Spiriva) 18 mcg IH DAILY [facility] PRN Reason: Protocol Last Admin: 10/06/16 09:58 Dose: 18 mcg Valsartan (Diovan) 320 mg PO DAILY [facility] PRN Reason: Protocol Last Admin: 10/06/16 09:56 Dose: 320 mg Warfarin Sodium (Coumadin) 6 mg PO 1800 [facility] PRN Reason: Protocol Last Admin: 10/06/16 18:00 Dose: 6 mg Zolpidem Tartrate (Ambien) 5 mg PO HS PRN; Protocol PRN Reason: Insomnia Last Admin: 10/06/16 00:12 Dose: 5 mg - Labs Labs: 10/06/16 07:50 10/03/16 07:30 PT 20.6 Seconds (9.9-11.8) H 10/06/16 07:10 INR 1.91 (0.93-1.08) H 10/06/16 07:10 Attending/Attestation - Attestation I have personally seen and examined this patient.: Yes I have fully participated in the care of the patient.: Yes I have reviewed all pertinent clinical information, including history, physical exam and plan: Yes
--- NOTE | 2016-10-05 16:17 | CP.PCM.PN ---
Subjective - Date & Time of Evaluation Date of Evaluation: 10/05/16 Time of Evaluation: 09:20 - Subjective Subjective: Comfortable in bed, still with some foot discomfort, no fevers overnight. Objective - Vital Signs/Intake and Output Vital Signs (last 24 hours): Temp Pulse Resp BP Pulse Ox 98.2 F 107 H 20 146/73 97 10/04/16 05:46 10/04/16 05:46 10/04/16 05:46 10/04/16 05:46 10/04/16 05:46 - Medications Medications: Current Medications Acetaminophen (Tylenol 325mg Tab) 650 mg PO Q6H PRN PRN Reason: Fever >100.4 F Albuterol/Ipratropium (Duoneb 3 Mg/0.5 Mg (3 Ml) Ud) 3 ml IH Q2H PRN; Protocol PRN Reason: Shortness of Breath Aspirin (Ecotrin) 81 mg PO 0800 [facility] PRN Reason: Protocol Last Admin: 10/03/16 08:22 Dose: 81 mg Collagenase (Santyl) 1 gm TOP DAILY [facility] PRN Reason: Protocol Last Admin: 10/03/16 11:59 Dose: Not Given Enoxaparin Sodium (Lovenox) 70 mg SC 0600,1800 [facility] PRN Reason: Protocol Last Admin: 10/04/16 05:59 Dose: 70 mg Furosemide (Lasix) 40 mg IVP 0800 [facility] PRN Reason: Protocol Last Admin: 10/03/16 08:24 Dose: 40 mg Glimepiride (Amaryl) 4 mg PO ACBD [facility] PRN Reason: Protocol Last Admin: 10/03/16 17:29 Dose: 4 mg Hydralazine HCl (Apresoline) 50 mg PO 1000,1800 [facility] PRN Reason: Protocol Last Admin: 10/03/16 17:30 Dose: 50 mg Insulin Human Lispro (Humalog Med) 0 units SC ACHS [facility] PRN Reason: Protocol Last Admin: 10/04/16 06:46 Dose: 3 units Isosorbide Mononitrate (Imdur) 60 mg PO 0630 [facility] PRN Reason: Protocol Last Admin: 10/04/16 05:59 Dose: 60 mg Levalbuterol HCl (Xopenex) 1.25 mg IH [id number] [facility] PRN Reason: Protocol Last Admin: 10/04/16 02:31 Dose: Not Given Linezolid (Zyvox) 600 mg PO BID [facility] PRN Reason: Protocol Last Admin: 10/03/16 17:33 Dose: 600 mg Metformin HCl (Glucophage) 500 mg PO 0730,1700 [facility] PRN Reason: Protocol Last Admin: 10/03/16 17:31 Dose: 500 mg Nystatin (Mycostatin Cream) 1 ea TOP TID [facility] PRN Reason: Protocol Last Admin: 10/03/16 17:33 Dose: 1 applic Pantoprazole Sodium (Protonix Ec Tab) 40 mg PO 0630 [facility] PRN Reason: Protocol Last Admin: 10/04/16 05:59 Dose: 40 mg Potassium Chloride (Klor-Con 10) 10 meq PO 0800 [facility] PRN Reason: Protocol Last Admin: 10/03/16 08:22 Dose: 10 meq Sitagliptin Phosphate (Januvia) 50 mg PO DAILY [facility] PRN Reason: Protocol Last Admin: 10/03/16 10:58 Dose: 50 mg Tiotropium [place] (Spiriva) 18 mcg IH DAILY [facility] PRN Reason: Protocol Last Admin: 10/03/16 10:59 Dose: 18 mcg Valsartan (Diovan) 320 mg PO DAILY [facility] PRN Reason: Protocol Last Admin: 10/03/16 10:57 Dose: 320 mg Warfarin Sodium (Coumadin) 5 mg PO 1800 [facility] PRN Reason: Protocol Last Admin: 10/03/16 17:31 Dose: 5 mg Zolpidem Tartrate (Ambien) 5 mg PO HS PRN; Protocol PRN Reason: Insomnia Last Admin: 10/03/16 22:04 Dose: 5 mg - Labs Labs: 10/03/16 07:30 10/03/16 07:30 PT 13.0 Seconds (9.9-11.8) H 10/03/16 07:30 INR 1.20 (0.93-1.08) H 10/03/16 07:30 - Constitutional Appears: Non-toxic, No Acute Distress - Head Exam Head Exam: NORMAL INSPECTION - ENT Exam ENT Exam: Mucous Membranes Moist - Neck Exam Neck Exam: absent: Lymphadenopathy, Meningismus - Respiratory Exam Respiratory Exam: Decreased Breath Sounds - Cardiovascular Exam Cardiovascular Exam: +S1, +S2 - GI/Abdominal Exam GI & Abdominal Exam: Soft. absent: Tenderness Assessment and Plan - Assessment and Plan (Free Text) Plan: Assessment infected diabetic ulceration of the left hallux associated with trauma with probable peripheral vascular disease, growing MRSA - no evidence of osteomyelitis on MRI - patient is S/P arthrectomy and angioplasty of left sided lower extremity vasculature S/P Sepsis with acute hypoxic respiratory failure secondary to left-sided healthcare-associated pneumonia with possible gram positive cocci and/or gram negative bacilli, clinically improved and S/P treatment as well as sepsis from persistent methicillin-resistant coagulase negative staph bacteremia , probably port infection S/P removal of the port history of Group G Strep bacteremia history of E. coli UTI history of healthcare-associated pneumonia acute renal failure obesity with BMI 38 CAD GERD arthritis history of bilateral knee replacements chronic CHF COPD DM history of breast CA History of Strep bovis bacteremia (2012) S/P Port-a-cath placement Plan continue Zyvox day 11 - will d/c antibiotics and monitor
[2016-10-05] MEDS: Collagenase 250 Units/gm Ointment(30 gm) TOP SCH (17:28)
[2016-10-05] MEDS: Vancomycin 25 MG/ML PO SCH ×2 (17:28→22:08)
[2016-10-06] MEDS: Levalbuterol 1.25 MG/3 ML Inhal Soln UD IH SCH ×4 (01:49→19:06)
[2016-10-06] MEDS: Enoxaparin 80 mg Syringe SC SCH (05:43)
[2016-10-06] MEDS: Pantoprazole 40 mg EC Tab PO SCH (05:43)
[2016-10-06] MEDS: Insulin Lispro (humaLOG) MEDIUM Coverage SC SCH ×4 (06:34→22:44)
--- NOTE | 2016-10-06 07:09 | PN ---
DATE: 10/05/2016 SUBJECTIVE: The patient is a 71 years old, seen and examined, seems to be comfortable. No nausea or vomiting, no diarrhea, eating and tolerating. Left foot erythema seems to be improving significantly. PHYSICAL EXAMINATION: VITAL SIGNS: She is afebrile, pulse 69, respirations 18, and blood pressure 120/65. LUNGS: Bilateral fair airflow. No rhonchi or crackles. HEART: S1 and S2 audible. ABDOMEN: Soft, nontender. No rebound. No guarding. NEUROLOGIC: The patient is awake and alert, able to communicate. LABORATORY DATA: Her PT is 14.6, INR 1.35. Chemistry, blood sugar is 70. ASSESSMENT AND PLAN: 1. Left big toe diabetic ulcer. 2. Severe peripheral vascular disease, status post angioplasty. 3. Hypertension. 4. Pulmonary hypertension. 5. Coronary artery disease. 6. Diarrhea, rule out Clostridium difficile. 7. Gastrointestinal arteriovenous malformations, status post multiple endoscopies and colonoscopy and had endoscopic submucosal resection done. PLAN: I will order for PT/INR in the a.m. We will continue to monitor the patient's blood sugar and follow up CBC and CMP in the a.m. Since the patient complained of diarrhea and she has been on antibiotics, we will peripherally start her on p.o. vancomycin and awaiting the stool for C. diff. Currently, she is on p.o. vancomycin. Her Zyvox has been discontinued by ID recommendation. We will follow up this patient in the a.m. Edwige Kirby MD
[2016-10-06 08:10] LABS: INR 1.91 (0.93-1.08); PROTHROMBIN TIME 20.6 Seconds (9.9-11.8)
[2016-10-06 08:13] LABS: BASO # 0.03 K/mm3 (0.0-2.0); BASO % 0.5 % (0.0-3.0); EOS # 0.3 (0.0-0.7); EOS % 4.2 % (1.5-5.0); GRAN # 4.26 (1.4-6.5); GRAN % 68.5 % (50.0-68.0); HEMOGLOBIN 8.7 gm/dL (12.0-16.0); LYMPH # 1.1 (1.2-3.4); LYMPH % 17.5 % (22.0-35.0); MEAN CELL VOLUME 95.9 fL (80.0-105.0); MEAN CORPUSCULAR HEMOGLOBIN 29.8 pg (25.0-35.0); MEAN CORPUSCULAR HGB CONC 31.1 g/dl (31.0-37.0); MEAN PLATELET VOLUME 9.4 fl (7.0-11.0); MONO # 0.6 (0.1-0.6); MONO % 9.3 % (1.0-6.0); PLATELET COUNT 206 10^3/uL (120.0-450.0); RBC 2.92 10^6/uL (3.5-6.1); RED CELL DISTRIBUTION WIDTH 17.8 % (11.5-14.5); WHITE BLOOD COUNT 6.2 10^3/ul (4.5-11.0)
[2016-10-06] MEDS: Potassium Chloride 10 mEq ER Tab PO SCH (08:51)
[2016-10-06] MEDS: Tiotropium 18 mcg Cap For Inhalation IH SCH (09:58)
[2016-10-06] MEDS: Vancomycin 25 MG/ML PO SCH (09:59)
[2016-10-06] MEDS: Nystatin 100,000 Units/gm Cream(15 gm) TOP SCH ×3 (11:55→18:02)
--- NOTE | 2016-10-06 13:59 | CP.PCM.PN ---
Subjective - Date & Time of Evaluation Date of Evaluation: 10/06/16 Time of Evaluation: 08:50 - Subjective Subjective: Comfortable on a chair, no fevers overnight, not in distress. No nausea, no diarrhea. Objective - Vital Signs/Intake and Output Vital Signs (last 24 hours): Temp Pulse Resp BP Pulse Ox 98.2 F 69 20 120/65 97 10/04/16 05:46 10/05/16 17:23 10/04/16 05:46 10/05/16 17:23 10/04/16 05:46 - Medications Medications: Current Medications Acetaminophen (Tylenol 325mg Tab) 650 mg PO Q6H PRN PRN Reason: Fever >100.4 F Last Admin: 10/04/16 18:15 Dose: 650 mg Albuterol/Ipratropium (Duoneb 3 Mg/0.5 Mg (3 Ml) Ud) 3 ml IH Q2H PRN; Protocol PRN Reason: Shortness of Breath Aspirin (Ecotrin) 81 mg PO 0800 [facility] PRN Reason: Protocol Last Admin: 10/05/16 08:04 Dose: 81 mg Collagenase (Santyl) 1 gm TOP DAILY [facility] PRN Reason: Protocol Last Admin: 10/05/16 17:28 Dose: Not Given Enoxaparin Sodium (Lovenox) 70 mg SC 0600,1800 [facility] PRN Reason: Protocol Last Admin: 10/06/16 05:43 Dose: 70 mg Furosemide (Lasix) 40 mg IVP 0800 [facility] PRN Reason: Protocol Last Admin: 10/05/16 08:07 Dose: 40 mg Glimepiride (Amaryl) 4 mg PO ACBD [facility] PRN Reason: Protocol Last Admin: 10/05/16 17:23 Dose: 4 mg Hydralazine HCl (Apresoline) 50 mg PO 1000,1800 [facility] PRN Reason: Protocol Last Admin: 10/05/16 17:23 Dose: 50 mg Insulin Human Lispro (Humalog Med) 0 units SC ACHS [facility] PRN Reason: Protocol Last Admin: 10/06/16 06:34 Dose: Not Given Isosorbide Mononitrate (Imdur) 60 mg PO 0630 [facility] PRN Reason: Protocol Last Admin: 10/06/16 05:43 Dose: 60 mg Levalbuterol HCl (Xopenex) 1.25 mg IH [id number] [facility] PRN Reason: Protocol Last Admin: 10/06/16 07:30 Dose: 1.25 mg Metformin HCl (Glucophage) 500 mg PO 0730,1700 [facility] PRN Reason: Protocol Last Admin: 10/05/16 17:26 Dose: 500 mg Nicotine (Nicoderm Cq) 1 patch TD DAILY [facility] Last Admin: 10/05/16 10:32 Dose: 1 patch Nystatin (Mycostatin Cream) 1 ea TOP TID [facility] PRN Reason: Protocol Last Admin: 10/05/16 17:28 Dose: Not Given Pantoprazole Sodium (Protonix Ec Tab) 40 mg PO 0630 [facility] PRN Reason: Protocol Last Admin: 10/06/16 05:43 Dose: 40 mg Potassium Chloride (Klor-Con 10) 10 meq PO 0800 [facility] PRN Reason: Protocol Last Admin: 10/05/16 08:05 Dose: 10 meq Sitagliptin Phosphate (Januvia) 50 mg PO DAILY [facility] PRN Reason: Protocol Last Admin: 10/05/16 09:54 Dose: 50 mg Tiotropium [place] (Spiriva) 18 mcg IH DAILY [facility] PRN Reason: Protocol Last Admin: 10/05/16 09:54 Dose: 18 mcg Valsartan (Diovan) 320 mg PO DAILY [facility] PRN Reason: Protocol Last Admin: 10/05/16 09:53 Dose: 320 mg Vancomycin HCl (Vancocin 25 Mg/Ml (Oral Use)) 250 mg PO QID [facility] PRN Reason: Protocol Last Admin: 10/05/16 22:08 Dose: 250 mg Warfarin Sodium (Coumadin) 5 mg PO 1800 [facility] PRN Reason: Protocol Last Admin: 10/05/16 17:24 Dose: 5 mg Zolpidem Tartrate (Ambien) 5 mg PO HS PRN; Protocol PRN Reason: Insomnia Last Admin: 10/06/16 00:12 Dose: 5 mg - Labs Labs: 10/06/16 07:50 10/03/16 07:30 PT 20.6 Seconds (9.9-11.8) H 10/06/16 07:10 INR 1.91 (0.93-1.08) H 10/06/16 07:10 - Constitutional Appears: Non-toxic, No Acute Distress - Head Exam Head Exam: NORMAL INSPECTION - Neck Exam Neck Exam: absent: Meningismus - Respiratory Exam Respiratory Exam: Decreased Breath Sounds - Cardiovascular Exam Cardiovascular Exam: +S1, +S2 - GI/Abdominal Exam GI & Abdominal Exam: Soft. absent: Tenderness - Extremities Exam Additional comments: left foot with dressings in place Assessment and Plan - Assessment and Plan (Free Text) Plan: Assessment infected diabetic ulceration of the left hallux associated with trauma with probable peripheral vascular disease, growing MRSA - no evidence of osteomyelitis on MRI - patient is S/P arthrectomy and angioplasty of left sided lower extremity vasculature - S/P treatment with antibiotics S/P Sepsis with acute hypoxic respiratory failure secondary to left-sided healthcare-associated pneumonia with possible gram positive cocci and/or gram negative bacilli, clinically improved and S/P treatment as well as sepsis from persistent methicillin-resistant coagulase negative staph bacteremia , probably port infection S/P removal of the port history of Group G Strep bacteremia history of E. coli UTI history of healthcare-associated pneumonia acute renal failure obesity with BMI 38 CAD GERD arthritis history of bilateral knee replacements chronic CHF COPD DM history of breast CA History of Strep bovis bacteremia (2012) S/P Port-a-cath placement Plan S/P more than 10 days of Zyvox - will continue to monitor the patient off antibiotics since she is at risk for nosocomial infections
--- NOTE | 2016-10-06 16:17 | CP.PCM.PN ---
<Concepcion Samano - Last Filed: 10/06/16 16:13> Subjective - Date & Time of Evaluation Date of Evaluation: 10/06/16 Time of Evaluation: 16:00 - Subjective Subjective: 71 year old female pt seen resting comfortably in bedside chair at time of visit regarding left hallux ulceration. Pt denies any acute overnight events. Does complain of some tenderness to the left hallux today. Seen wearing surgical shoes to feet bl. Denies any other problems at this time. States that she may be going home later this week. Objective - Vital Signs/Intake and Output Vital Signs (last 24 hours): Temp Pulse Resp BP Pulse Ox 97.4 F L 73 18 136/56 L 94 L 10/06/16 16:03 10/06/16 16:03 10/06/16 16:03 10/06/16 16:03 10/06/16 16:03 - Medications Medications: Current Medications Acetaminophen (Tylenol 325mg Tab) 650 mg PO Q6H PRN PRN Reason: Fever >100.4 F Last Admin: 10/04/16 18:15 Dose: 650 mg Albuterol/Ipratropium (Duoneb 3 Mg/0.5 Mg (3 Ml) Ud) 3 ml IH Q2H PRN; Protocol PRN Reason: Shortness of Breath Aspirin (Ecotrin) 81 mg PO 0800 WAYNE PRN Reason: Protocol Last Admin: 10/06/16 08:50 Dose: 81 mg Collagenase (Santyl) 1 gm TOP DAILY WAYNE PRN Reason: Protocol Last Admin: 10/05/16 17:28 Dose: Not Given Furosemide (Lasix) 40 mg IVP 0800 WAYNE PRN Reason: Protocol Last Admin: 10/06/16 08:53 Dose: 40 mg Glimepiride (Amaryl) 4 mg PO ACBD WAYNE PRN Reason: Protocol Last Admin: 10/06/16 08:47 Dose: 4 mg Hydralazine HCl (Apresoline) 50 mg PO 1000,1800 WAYNE PRN Reason: Protocol Last Admin: 10/06/16 09:55 Dose: 50 mg Insulin Human Lispro (Humalog Med) 0 units SC ACHS WAYNE PRN Reason: Protocol Last Admin: 10/06/16 12:54 Dose: 3 units Isosorbide Mononitrate (Imdur) 60 mg PO 0630 WAYNE PRN Reason: Protocol Last Admin: 10/06/16 05:43 Dose: 60 mg Levalbuterol HCl (Xopenex) 1.25 mg IH [id number] WAYNE PRN Reason: Protocol Last Admin: 10/06/16 13:10 Dose: Not Given Metformin HCl (Glucophage) 500 mg PO 0730,1700 WAYNE PRN Reason: Protocol Last Admin: 10/06/16 08:50 Dose: 500 mg Nicotine (Nicoderm Cq) 1 patch TD DAILY WAYNE Last Admin: 10/06/16 09:57 Dose: 1 patch Nystatin (Mycostatin Cream) 1 ea TOP TID WAYNE PRN Reason: Protocol Last Admin: 10/06/16 13:56 Dose: Not Given Pantoprazole Sodium (Protonix Ec Tab) 40 mg PO 0630 WAYNE PRN Reason: Protocol Last Admin: 10/06/16 05:43 Dose: 40 mg Potassium Chloride (Klor-Con 10) 10 meq PO 0800 WAYNE PRN Reason: Protocol Last Admin: 10/06/16 08:51 Dose: 10 meq Sitagliptin Phosphate (Januvia) 50 mg PO DAILY WAYNE PRN Reason: Protocol Last Admin: 10/06/16 09:56 Dose: 50 mg Tiotropium [place] (Spiriva) 18 mcg IH DAILY WAYNE PRN Reason: Protocol Last Admin: 10/06/16 09:58 Dose: 18 mcg Valsartan (Diovan) 320 mg PO DAILY WAYNE PRN Reason: Protocol Last Admin: 10/06/16 09:56 Dose: 320 mg Warfarin Sodium (Coumadin) 6 mg PO 1800 WAYNE PRN Reason: Protocol Zolpidem Tartrate (Ambien) 5 mg PO HS PRN; Protocol PRN Reason: Insomnia Last Admin: 10/06/16 00:12 Dose: 5 mg - Labs Labs: 10/06/16 07:50 10/03/16 07:30 PT 20.6 Seconds (9.9-11.8) H 10/06/16 07:10 INR 1.91 (0.93-1.08) H 10/06/16 07:10 - Constitutional Appears: Non-toxic, No Acute Distress - Extremities Exam Extremities Exam: absent: Calf Tenderness Additional comments: Left ower extremity focused exam: Dressing appears c/d/i to left hallux Vasc: DP and PT pulses non-palpable B/L. +2 pitting edema noted to left lower extremity. CFT < 4 seconds to digits 1-5 B/L. Skin temperature cool to cool from proximal to distal b/l. Derm: unstageable ulceration with necrotic eschar noted to medial aspect of left hallux measuring approximately 1.0 cm x 2.1 cm. Periwound area is erythematous and slightly macerated. Minor serosanguinous drainage noted on dressing. No malodor, no erythema, no fluctuance or other clinical signs of infection are noted at this time, no ascending cellulitis Neuro: Gross sensation diminished b/l Ortho: tenderness noted on palpation of dorsal hallux - Neurological Exam Neurological Exam: Alert, Awake, Oriented x3 - Psychiatric Exam Psychiatric exam: Normal Affect, Normal Mood Assessment and Plan - Assessment and Plan (Free Text) Assessment: 71 year old female with left hallux ulceration secondary to DM, PVD Plan: Pt S&E at bedside with attending Dr. Hoffman present Chart, labs and vitals reviewed; afebrile, WBC 6.2, ESR 75 Continue IV abx per ID Left hallux cleansed with sterile water, dressed with xeroform, DSD, tape Santyl to be discontinued Additional left foot x-rays ordered: r/o OM Stable per podiatry Will continue to follow, advised to f/u in wound care center upon discharge <Nikia Hoffman - Last Filed: 10/06/16 19:50> Objective - Vital Signs/Intake and Output Vital Signs (last 24 hours): Temp Pulse Resp BP Pulse Ox 97.4 F L 73 18 136/56 L 94 L 10/06/16 16:03 10/06/16 17:58 10/06/16 16:03 10/06/16 17:58 10/06/16 16:03 - Medications Medications: Current Medications Acetaminophen (Tylenol 325mg Tab) 650 mg PO Q6H PRN PRN Reason: Fever >100.4 F Last Admin: 10/06/16 18:04 Dose: 650 mg Albuterol/Ipratropium (Duoneb 3 Mg/0.5 Mg (3 Ml) Ud) 3 ml IH Q2H PRN; Protocol PRN Reason: Shortness of Breath Aspirin (Ecotrin) 81 mg PO 0800 WAYNE PRN Reason: Protocol Last Admin: 10/06/16 08:50 Dose: 81 mg Collagenase (Santyl) 1 gm TOP DAILY WAYNE PRN Reason: Protocol Last Admin: 10/06/16 18:02 Dose: Not Given Furosemide (Lasix) 40 mg IVP 0800 WAYNE PRN Reason: Protocol Last Admin: 10/06/16 08:53 Dose: 40 mg Glimepiride (Amaryl) 4 mg PO ACBD WAYNE PRN Reason: Protocol Last Admin: 10/06/16 17:57 Dose: 4 mg Hydralazine HCl (Apresoline) 50 mg PO 1000,1800 WAYNE PRN Reason: Protocol Last Admin: 10/06/16 17:58 Dose: 50 mg Insulin Human Lispro (Humalog Med) 0 units SC ACHS WAYNE PRN Reason: Protocol Last Admin: 10/06/16 18:01 Dose: Not Given Isosorbide Mononitrate (Imdur) 60 mg PO 0630 WAYNE PRN Reason: Protocol Last Admin: 10/06/16 05:43 Dose: 60 mg Levalbuterol HCl (Xopenex) 1.25 mg IH [id number] WAYNE PRN Reason: Protocol Last Admin: 10/06/16 19:06 Dose: Not Given Metformin HCl (Glucophage) 500 mg PO 0730,1700 WAYNE PRN Reason: Protocol Last Admin: 10/06/16 18:01 Dose: 500 mg Nicotine (Nicoderm Cq) 1 patch TD DAILY WAYNE Last Admin: 10/06/16 09:57 Dose: 1 patch Nystatin (Mycostatin Cream) 1 ea TOP TID WAYNE PRN Reason: Protocol Last Admin: 10/06/16 18:02 Dose: Not Given Pantoprazole Sodium (Protonix Ec Tab) 40 mg PO 0630 WAYNE PRN Reason: Protocol Last Admin: 10/06/16 05:43 Dose: 40 mg Potassium Chloride (Klor-Con 10) 10 meq PO 0800 WAYNE PRN Reason: Protocol Last Admin: 10/06/16 08:51 Dose: 10 meq Sitagliptin Phosphate (Januvia) 50 mg PO DAILY WAYNE PRN Reason: Protocol Last Admin: 10/06/16 09:56 Dose: 50 mg Tiotropium [place] (Spiriva) 18 mcg IH DAILY WAYNE PRN Reason: Protocol Last Admin: 10/06/16 09:58 Dose: 18 mcg Valsartan (Diovan) 320 mg PO DAILY WAYNE PRN Reason: Protocol Last Admin: 10/06/16 09:56 Dose: 320 mg Warfarin Sodium (Coumadin) 6 mg PO 1800 WAYNE PRN Reason: Protocol Last Admin: 10/06/16 18:00 Dose: 6 mg Zolpidem Tartrate (Ambien) 5 mg PO HS PRN; Protocol PRN Reason: Insomnia Last Admin: 10/06/16 00:12 Dose: 5 mg - Labs Labs: 10/06/16 07:50 10/03/16 07:30 PT 20.6 Seconds (9.9-11.8) H 10/06/16 07:10 INR 1.91 (0.93-1.08) H 10/06/16 07:10 Attending/Attestation - Attestation I have personally seen and examined this patient.: Yes I have fully participated in the care of the patient.: Yes I have reviewed all pertinent clinical information, including history, physical exam and plan: Yes
[2016-10-06] MEDS: Collagenase 250 Units/gm Ointment(30 gm) TOP SCH (18:02)
[2016-10-07] MEDS: Levalbuterol 1.25 MG/3 ML Inhal Soln UD IH SCH ×4 (01:49→21:01)
[2016-10-07] MEDS: Pantoprazole 40 mg EC Tab PO SCH (06:13)
[2016-10-07] MEDS: Insulin Lispro (humaLOG) MEDIUM Coverage SC SCH ×4 (06:40→21:46)
[2016-10-07] MEDS: Potassium Chloride 10 mEq ER Tab PO SCH (08:26)
--- NOTE | 2016-10-07 08:56 | RAD ---
PROCEDURE: Left Foot Radiographs. HISTORY: r/o OM left hallux COMPARISON: None. FINDINGS: BONES: No bony destruction to suggest osteomyelitis. JOINTS: Degenerative changes in the 1st MTP joint and PIP joint SOFT TISSUES: Normal. OTHER FINDINGS: None. IMPRESSION: No evidence of osteomyelitis
[2016-10-07] MEDS: Collagenase 250 Units/gm Ointment(30 gm) TOP SCH (11:01)
[2016-10-07] MEDS: Tiotropium 18 mcg Cap For Inhalation IH SCH (11:01)
[2016-10-07] MEDS: Nystatin 100,000 Units/gm Cream(15 gm) TOP SCH ×3 (12:01→18:00)
[2016-10-07] MEDS ORDERED: Loperamide Hydrochloride 1 mg/5 ml Cup PO ONE (13:01)
--- NOTE | 2016-10-07 15:29 | PN ---
DATE: SUBJECTIVE: The patient is 71 years old, seen and examined with complaint of diarrhea, complaint of left foot pain, otherwise doing well. PHYSICAL EXAMINATION GENERAL: She is afebrile. VITAL SIGNS: Pulse 98. Respirations 20. Blood pressure 133/46. HEART: S1 and S2 is audible. LUNGS: Bilateral fair air flow. No rhonchi or click. ABDOMEN: Soft, nontender, no rebound, no guarding. NEUROLOGIC: She is awake and alert, communicative. EXTREMITIES: Bilateral leg, no edema; however, left foot cellulitis has significantly improved. Her left big toe is in the dressing. LABORATORY DATA: There is no . ASSESSMENT: 1. Left foot cellulitis. 2. Left big toe diabetic ulcer. 3. Pulmonary hypertension. 4. 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 5. Diarrhea, rule out C. diff. PLAN: I will get another sample of C. diff and give 1 dose of Imodium and reevaluate patient. Edwige Kirby MD
--- NOTE | 2016-10-07 21:31 | PN ---
DATE: 10/07/2016 SUBJECTIVE: The patient is in bed, in no acute distress and nontoxic. PHYSICAL EXAMINATION: VITAL SIGNS: Temperature is 98, blood pressure is 130/70, respiratory rate of 16. HEENT: Unremarkable. NECK: Supple. LUNGS: Decreased breath sounds. HEART: Normal S1 and S2. ABDOMEN: Soft, nontender. LABORATORY DATA: Reveals white count of 6, hemoglobin of 8 and platelets of 206. Coagulation is noted and chemistries are noted. ASSESSMENT AND PLAN: This is a 71-year-old female with infected diabetic ulcer of the left hallux associated with trauma, peripheral vascular disease, *------* MRSA, no osteo on the MRI currently, status post treatment with 10 days of Zyvox, off antibiotics. The patient had an x-ray of the foot reviewed. The orders reveal the patient is off of antibiotics and the x-ray of the foot from yesterday reveals the patient to have no evidence of osteomyelitis. We will follow with you. Benjamin Obrien MD
--- NOTE | 2016-10-07 21:49 | PN ---
DATE: 10/07/2016 SUBJECTIVE: A 71-year-old female, seen at bedside for continued evaluation and management of a now chronic diabetic left hallux ulceration. The patient had undergone successful left posterior tibial artery angioplasty, right common iliac artery angioplasty and stent placement as well as left popliteal balloon angioplasty on 09/27/2016. The patient is reporting no pain at her left hallux ulceration site. X-rays taken yesterday reveal no radiographic evidence of cortical disruption to suggest osteomyelitis at the underlying ulceration. PHYSICAL EXAMINATION VITAL SIGNS: Reveal a temperature of 98, blood pressure of 133/46, respiratory rate of 20, pulse rate of 98. EXTREMITIES: Nonpalpable pedal pulses noted bilaterally. The patient is unable to take 5.07 g monofilament wire testing bilaterally. Lower extremity skin presents thin, shining discolored bilaterally. There is a full-thickness ulceration located at the dorsal aspect of the left first IPJ. The base of the ulcerations are mixture of necrotic, fibrotic, and slightly gangrenous tissue. The periphery of the wound is macerated. There is no malodor. There is no purulence to suggest underlying abscess formation. The wound does not probe the tendon or bone. The entire area has decreased erythema and edema since admission. LABORATORY DATA: Findings revealed an ESR of 75. White blood cell count of 6.2, hemoglobin of 8.7, hematocrit of 28, platelet count of 206. ASSESSMENT: Full thickness diabetic left hallux ulceration secondary to longstanding diabetes with peripheral arterial disease and decades long history of smoking. PLAN: The patient's wound was cleansed with normal sterile saline. We will apply Xeroform and a dry sterile dressing. We will discontinue Santyl in the short-term as the periphery of the wound has become macerated, but we will continue once the periphery dries out. X-rays taken yesterday shows no radiographic evidence of cortical disruption to suggest osteomyelitis. Once the patient is discharged, he will follow up at the wound center weekly and we will arrange visiting nurses to come to the house to change her dressings twice a week. She will continue with IV antibiotics as per infectious disease. Dr. Kirby's note was read and appreciated. The patient will be seen and followed along at the house daily. Deric Henriquez DPM [facility] # [id number]
[2016-10-08] MEDS: Levalbuterol 1.25 MG/3 ML Inhal Soln UD IH SCH ×4 (03:05→20:38)
[2016-10-08] MEDS: Pantoprazole 40 mg EC Tab PO SCH (06:02)
[2016-10-08] MEDS: Insulin Lispro (humaLOG) MEDIUM Coverage SC SCH ×4 (06:45→21:57)
--- NOTE | 2016-10-08 07:16 | PN ---
SUBJECTIVE: The patient is a 71-year-old female, seen and examined lying in bed, comfortable, eating and tolerating, minimal pain to the left foot. Antibiotics, she finished course of 11 days of Zyvox, doing well. No nausea or vomiting. Diarrhea has improved. Stool for C. diff is negative. PHYSICAL EXAMINATION: VITAL SIGNS: She is afebrile, pulse 97, respirations 12, blood pressure 130/50. LUNGS: Bilateral fair airflow. No rhonchi or crackle. HEART: S1 and S2 audible. ABDOMEN: Soft, obese, nontender. No rebound. No guarding. NEUROLOGIC: The patient is awake and alert, able to communicate, ambulatory. EXTREMITIES: Left leg erythema has significantly improved. Left foot ulcer seems to be healing better. LABORATORY EXAM: WBC is 6.2, hemoglobin 8.7, hematocrit 28, platelet 206, PT 20.6, INR 1.90. Chemistry, blood sugar is 129. ASSESSMENT: 1. Left big toe ulcer. 2. Peripheral vascular disease, status post angioplasty. 3. Hypertension. 4. Hyperlipidemia. 5. Pulmonary hypertension. 6. Gastric arteriovenous malformation. 7. Coronary artery disease. 8. Wlj-jncvepk-neirgkdve diabetes. PLAN: I will give her 6 mg of Coumadin today. We will monitor her blood sugar. I will discontinue Lovenox, and we will reevaluate the patient in a.m. She is scheduled to be discharged on *------*. Edwige Kirby MD
[2016-10-08] MEDS: Potassium Chloride 10 mEq ER Tab PO SCH (08:43)
[2016-10-08] MEDS: Tiotropium 18 mcg Cap For Inhalation IH SCH (10:04)
[2016-10-08] MEDS: Nystatin 100,000 Units/gm Cream(15 gm) TOP SCH ×3 (10:06→17:51)
[2016-10-08] MEDS: Collagenase 250 Units/gm Ointment(30 gm) TOP SCH (10:09)
--- NOTE | 2016-10-09 01:54 | PN ---
DATE: 10/08/2016 SUBJECTIVE: The patient is a 71-year-old, seen and examined sitting in a chair, eating and tolerating, complained of diarrhea, although better than before. PHYSICAL EXAMINATION: VITAL SIGNS: She is afebrile, pulse 98, respiration 14, blood pressure *------*. LUNGS: Bilateral fair airflow. No rhonchi or crackle. HEART: S1, S2, audible. ABDOMEN: Soft. Nontender. No rebound, no guarding. NEUROLOGIC: She is awake and alert, able to communicate. EXTREMITIES: Bilateral legs, she has erythema, right more than the left and left toe is in the dressing. ASSESSMENT AND PLAN: 1. Bilateral leg cellulitis, improving. 2. Left big toe diabetic ulcer. 3. Peripheral vascular disease. 4. Coronary artery disease. 5. Hypertension. 6. Pulmonary hypertension. 7. Xte-ivvhtkx-quoyfjaqt diabetes. PLAN: Currently, the patient is on Coumadin 6 mg. Her Lovenox is discontinued. The patient is scheduled to be discharged tomorrow. Edwige Kirby MD
[2016-10-09] MEDS: Levalbuterol 1.25 MG/3 ML Inhal Soln UD IH SCH ×2 (02:40→07:37)
--- NOTE | 2016-10-09 02:50 | PN ---
DATE: 10/08/2016 SUBJECTIVE: Patient in bed, in no acute distress, nontoxic. Patient is seen early this morning at 3:21. No fevers, no chills. PHYSICAL EXAMINATION VITAL SIGNS: Temperature is 98, blood pressure is 107/70, respiratory rate 16. HEENT: Unremarkable. NECK: Supple. LUNGS: Decreased breath sounds. HEART: Normal S1 and S2. ABDOMEN: Soft, nontender. LABORATORY EXAMINATION: Reveals the patient's white count is 6.2, hemoglobin of 8, platelets of 206. *------* is 75. BUN of 20, creatinine of 0.7. Stool for C diff antigen and toxin are negative. ASSESSMENT AND PLAN: This is a 71-year-old female with infected diabetic ulcer in the left hallux associated with a trauma, peripheral vascular disease, MRI with no osteomyelitis, status post treatment with 10 days of Zyvox, currently off of antibiotics, afebrile. Dr. Deric Henriquez's note is reviewed. Review of orders revealed the patient to be off of antibiotics. Benjamin Obrien MD
[2016-10-09] MEDS: Pantoprazole 40 mg EC Tab PO SCH (05:38)
[2016-10-09] MEDS: Insulin Lispro (humaLOG) MEDIUM Coverage SC SCH ×2 (08:33→13:15)
[2016-10-09] MEDS: Potassium Chloride 10 mEq ER Tab PO SCH (08:34)
[2016-10-09] MEDS: Nystatin 100,000 Units/gm Cream(15 gm) TOP SCH (09:43)
[2016-10-09] MEDS: Collagenase 250 Units/gm Ointment(30 gm) TOP SCH (09:44)
[2016-10-09] MEDS: Tiotropium 18 mcg Cap For Inhalation IH SCH (09:44)
--- NOTE | 2016-10-09 11:20 | CP.PCM.PN ---
Subjective - Date & Time of Evaluation Date of Evaluation: 10/09/16 Time of Evaluation: 10:30 - Subjective Subjective: 71 year old female pt seen at bedside today with Dr. Hoffman present for left hallux ulceration. Pt seen resting comfortably in bed at time of visit. Does complain of some tenderness to the toe today. Denies any acute events overnight. Per nursing pt is for discharge home today. Objective - Vital Signs/Intake and Output Vital Signs (last 24 hours): Temp Pulse Resp BP Pulse Ox 97.1 F L 76 14 127/56 L 100 10/07/16 16:02 10/09/16 09:41 10/08/16 16:00 10/09/16 09:41 10/08/16 16:00 Intake and Output: 10/09/16 10/09/16 06:59 18:59 Intake Total 400 Balance 400 - Medications Medications: Current Medications Acetaminophen (Tylenol 325mg Tab) 650 mg PO Q6H PRN PRN Reason: Fever >100.4 F Last Admin: 10/06/16 18:04 Dose: 650 mg Albuterol/Ipratropium (Duoneb 3 Mg/0.5 Mg (3 Ml) Ud) 3 ml IH Q2H PRN; Protocol PRN Reason: Shortness of Breath Aspirin (Ecotrin) 81 mg PO 0800 WAYNE PRN Reason: Protocol Last Admin: 10/09/16 08:33 Dose: 81 mg Collagenase (Santyl) 1 gm TOP DAILY WAYNE PRN Reason: Protocol Last Admin: 10/09/16 09:44 Dose: Not Given Furosemide (Lasix) 40 mg IVP 0800 WAYNE PRN Reason: Protocol Last Admin: 10/09/16 08:42 Dose: Not Given Glimepiride (Amaryl) 4 mg PO ACBD WAYNE PRN Reason: Protocol Last Admin: 10/09/16 08:32 Dose: 4 mg Hydralazine HCl (Apresoline) 50 mg PO 1000,1800 WAYNE PRN Reason: Protocol Last Admin: 10/09/16 09:41 Dose: 50 mg Insulin Human Lispro (Humalog Med) 0 units SC ACHS WAYNE PRN Reason: Protocol Last Admin: 10/09/16 08:33 Dose: Not Given Isosorbide Mononitrate (Imdur) 60 mg PO 0630 WAYNE PRN Reason: Protocol Last Admin: 10/09/16 05:38 Dose: 60 mg Levalbuterol HCl (Xopenex) 1.25 mg IH [id number] WAYNE PRN Reason: Protocol Last Admin: 10/09/16 07:37 Dose: 1.25 mg Metformin HCl (Glucophage) 500 mg PO 0730,1700 WAYNE PRN Reason: Protocol Last Admin: 10/09/16 08:33 Dose: 500 mg Nicotine (Nicoderm Cq) 1 patch TD DAILY WAYNE Last Admin: 10/09/16 09:43 Dose: 1 patch Nystatin (Mycostatin Cream) 1 ea TOP TID WAYNE PRN Reason: Protocol Last Admin: 10/09/16 09:43 Dose: 1 applic Pantoprazole Sodium (Protonix Ec Tab) 40 mg PO 0630 WAYNE PRN Reason: Protocol Last Admin: 10/09/16 05:38 Dose: 40 mg Potassium Chloride (Klor-Con 10) 10 meq PO 0800 WAYNE PRN Reason: Protocol Last Admin: 10/09/16 08:34 Dose: 10 meq Sitagliptin Phosphate (Januvia) 50 mg PO DAILY WAYNE PRN Reason: Protocol Last Admin: 10/09/16 09:42 Dose: 50 mg Tiotropium [place] (Spiriva) 18 mcg IH DAILY WAYNE PRN Reason: Protocol Last Admin: 10/09/16 09:44 Dose: 18 mcg Valsartan (Diovan) 320 mg PO DAILY WAYNE PRN Reason: Protocol Last Admin: 10/09/16 09:41 Dose: 320 mg Warfarin Sodium (Coumadin) 6 mg PO 1800 WAYNE PRN Reason: Protocol Last Admin: 10/08/16 17:50 Dose: 6 mg Zolpidem Tartrate (Ambien) 5 mg PO HS PRN; Protocol PRN Reason: Insomnia Last Admin: 10/08/16 22:56 Dose: 5 mg - Labs Labs: 10/06/16 07:50 10/03/16 07:30 PT 20.6 Seconds (9.9-11.8) H 10/06/16 07:10 INR 1.91 (0.93-1.08) H 10/06/16 07:10 - Constitutional Appears: Well, Non-toxic, No Acute Distress - Extremities Exam Extremities Exam: absent: Calf Tenderness Additional comments: Left foot exam: Dressing appears c/d/i to left hallux Vasc: DP and PT pulses non-palpable B/L. +2 pitting edema noted to left lower extremity. CFT < 4 seconds to digits 1-5 B/L. Skin temperature cool to cool from proximal to distal b/l. Derm: unstageable ulceration with necrotic eschar noted to medial aspect of left hallux measuring approximately 1.0 cm x 2.1 cm. Periwound area is erythematous and slightly macerated. Minor serosanguinous drainage noted on dressing. No malodor, no erythema, no fluctuance or other clinical signs of infection are noted at this time, no ascending cellulitis Neuro: Gross sensation diminished b/l Ortho: tenderness noted on palpation of dorsal hallux - Neurological Exam Neurological Exam: Alert, Awake, Oriented x3 - Psychiatric Exam Psychiatric exam: Normal Affect, Normal Mood Assessment and Plan - Assessment and Plan (Free Text) Assessment: 71 year old female with left hallux ulceration secondary to DM, PVD Plan: Pt S&E at bedside with attending Dr. Hoffman present Chart, labs and vitals reviewed Left hallux cleansed with sterile water, dressed with betadine, optifoam x-rays are negative for OM of hallux per ID, antibiotics have been discontinued Stable per podiatry She is to f/u with Dr. Hoffman at the wound care center next week upon discharge.
[2016-10-09 11:30] VITALS: BP 107/58; PULSE 110; RESP 12; TEMP 98.5; O2SAT 96
--- NOTE | 2016-10-09 22:50 | PN ---
DATE: 10/09/2016 SUBJECTIVE: The patient is in bed in no acute distress, nontoxic. PHYSICAL EXAMINATION: VITAL SIGNS: Temperature is 98, blood pressure is 107/50, respiratory rate of 12, heart rate of 98. HEENT: Unremarkable. NECK: Supple. LUNGS: Decreased breath sounds. HEART: Normal S1 and S2. ABDOMEN: Soft and nontender. LABORATORY DATA: Laboratory examination reveals a white count of 6.2, hemoglobin 8 and platelets of 206. Chemistries are noted and creatinine is 0.7. Stool for occult blood is negative. ASSESSMENT AND PLAN: This is a 71-year-old female who was seen early this morning in transitional care in [facility]. *------* think the diabetic ulcer has resolved associated with trauma, peripheral vascular disease with MRI that has no *------* was treated for 10 days Zyvox. Currently, off of antibiotics. The patient is at risk for developing of nosocomial infection. Benjamin Obrien MD
--- NOTE | 2016-10-10 08:17 | DS ---
HISTORY OF PRESENT ILLNESS: The patient is a 71-year-old morbidly obese white female. She is being followed in office for her left leg cellulitis and foot erythema. She is started to have some ulceration on her big toe. She was referred to Dr. Hoffman as outpatient who was monitoring, gave her antibiotic, and had wound care, but her wound continue to get worse, so she was referred to emergency room for further evaluation. The patient had evaluation done by Dr. Maldonado Barnett, who did angiography followed by angioplasty and she needs further wound care, so she was transferred to TCU for wound care and physical therapy. PHYSICAL EXAMINATION: GENERAL: She is awake, alert, and communicative. VITAL SIGNS: She is afebrile, pulse 68, respirations 18, and blood pressure 130/80. LUNGS: Bilateral fair airflow. No rhonchi or crackles. HEART: S1 and S2 audible. ABDOMEN: Soft, obese, and nontender. No rebound. No guarding. NEUROLOGIC: The patient is awake and alert, able to communicate. Both legs has mild erythema and left big toe is in the dressing. LABORATORY DATA: Her PT today is 20.6. INR is 1.91 on 10/06/2016. ASSESSMENT: 1. Left big toe diabetic ulcer. 2. Status post right common iliac artery recent angioplasty and stent placement. 3. Left posterior tibial angioplasty. 4. Left popliteal and drug-eluting balloon angioplasty. 5. Left superficial femoral artery Jetstream atherectomy and drug-eluted balloon angioplasty. 6. Noninsulin-dependent diabetes. 7. Chronic obstructive pulmonary disease. 8. Pulmonary hypertension. PLAN: The patient is going to be discharged today. She will resume her medications. She was given prescription of Ambien and Lasix. She will follow up in office. Edwige Kirby MD
--- NOTE | 2016-10-10 12:36 | DS ---
TRIXIE NEGRON. Edwige Kirby MD
== END 2016-10-09 14:49 | disposition home or self-care (01) | DRG 638 ==
LOC: TRCU 16:55
PROVIDERS: ADMIT Internal Medicine; ATTEND Internal Medicine
DX: E11.621 Type 2 diabetes mellitus with foot ulcer (principal); L03.116 Cellulitis of left lower limb; L97.529 Non-pressure chronic ulcer of other part of left foot with unspecified severity; E11.51 Type 2 diabetes mellitus with diabetic peripheral angiopathy without gangrene; I11.0 Hypertensive heart disease with heart failure; I27.2 Other secondary pulmonary hypertension; I50.9 Heart failure, unspecified; E66.01 Morbid (severe) obesity due to excess calories; E11.628 Type 2 diabetes mellitus with other skin complications; Z68.38 Body mass index [BMI] 38.0-38.9, adult; I25.10 Atherosclerotic heart disease of native coronary artery without angina pectoris; F17.210 Nicotine dependence, cigarettes, uncomplicated; I73.9 Peripheral vascular disease, unspecified; Z96.653 Presence of artificial knee joint, bilateral; K21.9 Gastro-esophageal reflux disease without esophagitis; Z85.3 Personal history of malignant neoplasm of breast; J44.9 Chronic obstructive pulmonary disease, unspecified

== ENCOUNTER 2016-10-20 16:12 | Inpatient (IN) | payer MEDICARE, OTHER ==
[2016-10-20 16:33] VITALS: BMI 39.4
--- NOTE | 2016-10-20 16:58 | ED PDOC ---
Arrival/HPI - General Chief Complaint: Altered Mental Status Time Seen by Provider: 10/20/16 16:32 Historian: Patient, Family (daughter ) - History of Present Illness Narrative History of Present Illness (Text): 10/20/16 16:45 Esther Baxter is a 71 year old female, whose past medical history includes diabetes , COPD, CHF, anemia, CAD, renal failure and Afib, presents to the Emergency department accompanied by her daughter, complaining of feeling drowsiness since 13:30 today. Daughter reports that earlier this morning at around 07:00 her mother was fine, but when she went to pick her up at 13:30 her mother was confused and had defacted everywhere. Daughter also notes that patient has a rash on her groin area and her left foot is infected. Patient denies chest pain, shortness of breath, headache, fever, chills, cough, nausea, vomiting, abdominal pain, or other complaints. PMD: Dr. Kirby Time/Duration: 4-6 hours Symptom Onset: Sudden Symptom Course: Unchanged Activities at Onset: Rest Modifying Factors (Text): None Context: Home Associated Symptoms (Text): uncontrollable bowel, rash on groin, and infected left toe Past Medical History - Provider Review Nursing Documentation Reviewed: Yes - Infectious Disease Hx of Infectious Diseases: None - Tetanus Immunization Tetanus Immunization: Unknown - Cardiac Hx Congestive Heart Failure: Yes Hx Hypertension: Yes - Pulmonary Hx Chronic Obstructive Pulmonary Disease (COPD): Yes - Neurological Hx Neurological Disorder: Yes Hx Seizures: Yes - HEENT Hx HEENT Disorder: No - Renal Hx Renal Failure: Yes - Endocrine/Metabolic Hx Diabetes Mellitus Type 2: Yes Hx Hypothyroidism: Yes - Hematological/Oncological Hx Blood Disorders: Yes (sepsis) Hx Anemia: Yes (iron deficiency) Hx Cancer: Yes (left breast lumpectomy) Hx Chemotherapy: Yes - Integumentary Hx Dermatological Disorder: No - Musculoskeletal/Rheumatological Hx Arthritis: Yes - Gastrointestinal Hx Gastrointestinal Disorders: No - Genitourinary/Gynecological Hx Genitourinary Disorders: Yes (UTI) Hx Reproductive Disorders: No - Psychiatric Hx Psychophysiologic Disorder: Yes Hx Anxiety: Yes - Surgical History Hx Cardiac Catheterization: Yes Hx Joint Replacement: Yes Hx Orthopedic Surgery: Yes - Anesthesia Hx Anesthesia: Yes Hx Anesthesia Reactions: No Hx Malignant Hyperthermia: No - Suicidal Assessment Feels Threatened In Home Enviroment: No Family/Social History - Physician Review Nursing Documentation Reviewed: Yes Family/Social History: Unknown Family HX Smoking Status: Heavy Smoker > 10 Cigarettes Daily Hx Alcohol Use: No Hx Substance Use Treatment: No Allergies/Home Meds Allergies/Adverse Reactions: Allergies No Known Allergies Allergy (Verified 10/01/16 18:19) Review of Systems - Physician Review All systems were reviewed & negative as marked: Yes - Review of Systems Systems not reviewed;Unavailable: Other (confused) Respiratory: absent: SOB Cardiovascular: absent: Chest Pain Gastrointestinal: Other (uncontrollable bowel ) Skin: Rash (groin) Neurological: absent: Headache Physical Exam Vital Signs Temp Pulse Resp BP Pulse Ox 10/20/16 19:20 69 19 117/50 L 97 10/20/16 18:46 98.7 F 72 20 105/68 92 L 10/20/16 18:36 68 17 105/68 96 10/20/16 16:46 100.1 F H 72 18 104/50 L 96 Temperature: Febrile Blood Pressure: Hypotensive Pulse: Regular Respiratory Rate: Normal Appearance: Positive for: Well-Appearing, Non-Toxic, Comfortable Pain Distress: None Mental Status: Positive for: Alert and Oriented X 3 Finger Stick Blood Glucose: 239 - Systems Exam Head: Present: Atraumatic, Normocephalic Pupils: Present: PERRL Extroacular Muscles: Present: EOMI Conjunctiva: Present: Normal Mouth: Present: Moist Mucous Membranes Neck: Present: Normal Range of Motion Respiratory/Chest: Present: Clear to Auscultation, Good Air Exchange. No: Respiratory Distress, Accessory Muscle Use Cardiovascular: Present: Regular Rate and Rhythm, Normal S1, S2. No: Murmurs Abdomen: Present: Normal Bowel Sounds. No: Tenderness, Distention, Peritoneal Signs Back: Present: Normal Inspection Upper Extremity: Present: Normal Inspection. No: Cyanosis, Edema Lower Extremity: Present: Normal Inspection, Erythema (left leg ), Other (left foot ulcer healing and no warmth). No: Edema Neurological: Present: GCS=15, CN II-XII Intact, Speech Normal Skin: Present: Warm, Dry, Normal Color. No: Rashes Psychiatric: Present: Alert, Oriented x 3, Normal Insight, Normal Concentration Medical Decision Making ED Course and Treatment: 10/20/16 16:45 Impression: 71 year old female with drowsiness, rash on groin area, and left foot ulcer. Differential Diagnosis included but are not limited to: altered mental status and lower leg cellulitis r/o sepsis Plan: -- EKG -- Chest X-ray -- Labs -- Urinalysis -- Sodium Chloride and Tylenol -- Reassess and disposition Progress Notes: EKG: Ordered, reviewed, and independently interpreted the EKG. Rate : 68 BPM Rhythm : Afib Interpretation : No PBC's 10/20/16 17:40 Chest X-ray: Creator : Tony Swain MD COMPARISON: 07/22/2016 FINDINGS: LUNGS: No active pulmonary disease. PLEURA: No significant pleural effusion identified, no pneumothorax apparent. CARDIOVASCULAR: Moderate cardiomegaly. Moderate vascular congestion OSSEOUS STRUCTURES: No significant abnormalities. VISUALIZED UPPER ABDOMEN: Normal. OTHER FINDINGS: None. IMPRESSION: Moderate cardiomegaly and moderate vascular congestion 10/20/16 18:34 Code Sepsis was called secondary to elevated temp, elevated WBC and elevated LA. Patient is also drowsy and confused. Treated broad spectrum with Vanco and Zosyn IV. Blood cultures already sent. 10/20/16 20:21 HEAD W/O CONTRAST Exam Date: 10/20/16 CT Head Without Intravenous Contrast 10/20/2016 4:59 PM COMPARISON: CT - HEAD W/O CONTRAST 04/01/2016 7:45:43 PM IMPRESSION: 1. No acute intracranial hemorrhage or acute territorial type infarct. 2. There are scattered foci of hypodensity within the cerebral white matter, likely representing small vessel ischemic disease in a patient this age. 3. Mild atrophy. 4. If further evaluation is clinically indicated, an MRI of the brain is recommended. Dictated By: Darrel Watters MD, MD Dictated Date/Time: 10/20/162009 Signed By: Darrel Prescott MD Date Signed: 2009 Transcribed By: PARTH Transcribe Date/Time : 10/20/16200910/20/16 20:[address] Benites who will admit to ICU. Case was discussed with Dr. Kirby who will admit under her service. - Critical Care Critical Care Minutes: 30 minutes - Lab Interpretations Lab Results: 10/20/16 17:50 10/20/16 17:50 Lab Results 10/20/16 18:15: Urine Color Yellow, Urine Appearance Sl cloudy, Urine pH 6.0, Ur Specific Beauty 1.025, Urine Protein 30 H, Urine Glucose (UA) Negative, Urine Ketones Negative, Urine Blood Large H, Urine Nitrate Positive H, Urine Bilirubin Negative, Urine Urobilinogen 0.2, Ur Leukocyte Esterase Small H, Urine RBC 25 - 30, Urine WBC 5 - 10, Ur Epithelial Cells 4 - 5, Urine Bacteria Many 10/20/16 17:50: Sodium 138, Chloride 98, Potassium 4.2, Carbon Dioxide 26, Anion Gap 18, BUN 42 H, Creatinine 0.9, Est GFR ( Amer) > 60, Est GFR ( Non-Af Amer) > 60, Random Glucose 214 H, Calcium 9.4, Phosphorus 3.8, Magnesium 1.7, Total Bilirubin 1.0, AST 26, ALT 20, Alkaline Phosphatase 87, Total Protein 6.6, Albumin 3.9, Globulin 2.6, Albumin/Globulin Ratio 1.5 10/20/16 17:50: PT 32.4 H*, INR 3.00 H, APTT 42.0 H 10/20/16 17:50: WBC 16.5 H D, RBC 3.08 L, Hgb 8.7 L, Hct 27.8 L, MCV 90.3, MCH 28.2, MCHC 31.3, RDW 18.5 H, Plt Count 244, MPV 10.2, Gran % 89.4 H, Lymph % ( Auto) 5.3 L, Duval % (Auto) 5.1, Eos % (Auto) 0.1 L, Baso % (Auto) 0.1, Gran # 14.76 H, Lymph # 0.9 L, Duval # 0.9 H, Eos # 0.0, Baso # 0.01, ESR 54 H 10/20/16 17:45: pO2 88 H, VBG pH 7.33, VBG pCO2 54.0, VBG HCO3 28.5 H, VBG Total CO2 30.2 H, VBG O2 Sat (Calc) 97.7 H, VBG Base Excess 1.9, VBG Potassium 4.2, Sodium 136.0, Chloride 104.0, Glucose 229 H, Lactate 2.6 H, FiO2 21.0, Venous Blood Potassium 4.2 I have reviewed the lab results: Yes - RAD Interpretation Radiology Orders: 10/20/16 16:58 CHEST PORTABLE [RAD] Stat 10/20/16 16:59 HEAD W/O CONTRAST [CT] Stat Aerospace Mechanic: Radiologist - EKG Interpretation Interpreted by ED Physician: Yes Type: 12 lead EKG - Medication Orders Current Medication Orders: Discontinued Medications Acetaminophen (Tylenol 325mg Tab) 975 mg PO STAT STA Stop: 10/20/16 17:04 Last Admin: 10/20/16 18:06 Dose: Sodium Chloride (Sodium Chloride 0.9%) 500 mls @ 999 mls/hr IV .Q31M STA Stop: 10/20/16 17:33 Last Admin: 10/20/16 17:30 Dose: 999 mls/hr Vancomycin HCl (Vancomycin 1gm) 1 gm in 250 mls @ 167 mls/hr IVPB STAT STA PRN Reason: Protocol Stop: 10/20/16 18:40 Last Admin: 10/20/16 18:58 Dose: 167 mls/hr Piperacillin Sod/Tazobactam Sod (Zosyn 3.375 In Ns 100ml) 100 mls @ 200 mls/hr IVPB STAT STA PRN Reason: Protocol Stop: 10/20/16 17:40 Last Admin: 10/20/16 17:30 Dose: 200 mls/hr - Scribe Statement The provider has reviewed the documentation as recorded by the Scribe 10/20/2016 Savana Burton Provider Scribe Attestation: All medical record entries made by the Scribe were at my direction and personally dictated by me. I have reviewed the chart and agree that the record accurately reflects my personal performance of the history, physical exam, medical decision making, and the department course for this patient. I have also personally directed, reviewed, and agree with the discharge instructions and disposition. Disposition/Present on Arrival - Present on Arrival Any Indicators Present on Arrival: No History of DVT/PE: No History of Uncontrolled Diabetes: No Urinary Catheter: No History of Decub. Ulcer: No History Surgical Site Infection Following: None - Disposition Have Diagnosis and Disposition been Completed?: Yes Diagnosis: Sepsis, Cellulitis Disposition: HOSPITALIZED Disposition Time: 20:25 Patient Plan: Admission, ICU Condition: GUARDED Discharge Instructions (ExitCare): Sepsis (ED), Cellulitis (ED) Referrals: Félix Nolan DO [Primary Care Provider] - Follow up with primary Forms: [employer] ([place])
[2016-10-20] MEDS ORDERED: Sodium Chloride 0.9% 500 ML IV STA (17:03)
[2016-10-20] MEDS ORDERED: Piperacillin/Tazobact 3.375 gm 100 ML IVPB STA (17:11)
[2016-10-20] MEDS ORDERED: Vancomycin 1gm in NS 250ml 1 GM/250 ML BAG IVPB STA (17:11)
--- NOTE | 2016-10-20 17:37 | RAD ---
HISTORY: Sepsis Patient COMPARISON: 07/22/2016 FINDINGS: LUNGS: No active pulmonary disease. PLEURA: No significant pleural effusion identified, no pneumothorax apparent. CARDIOVASCULAR: Moderate cardiomegaly. Moderate vascular congestion OSSEOUS STRUCTURES: No significant abnormalities. VISUALIZED UPPER ABDOMEN: Normal. OTHER FINDINGS: None. IMPRESSION: Moderate cardiomegaly and moderate vascular congestion
[2016-10-20 17:58] LABS: VENOUS BLOOD GAS BASE EXCESS 1.9 mmol/L (0.0-2.0); VENOUS BLOOD GAS PO2 88 mm/Hg (30-55); VENOUS BLOOD PH 7.33 (7.32-7.43)
[2016-10-20 18:05] LABS: BASO # 0.01 K/mm3 (0.0-2.0); BASO % 0.1 % (0.0-3.0); EOS % 0.1 % (1.5-5.0); GRAN # 14.76 (1.4-6.5); GRAN % 89.4 % (50.0-68.0); HEMOGLOBIN 8.7 gm/dL (12.0-16.0); LYMPH # 0.9 (1.2-3.4); LYMPH % 5.3 % (22.0-35.0); MEAN CELL VOLUME 90.3 fL (80.0-105.0); MEAN CORPUSCULAR HEMOGLOBIN 28.2 pg (25.0-35.0); MEAN CORPUSCULAR HGB CONC 31.3 g/dl (31.0-37.0); MEAN PLATELET VOLUME 10.2 fl (7.0-11.0); MONO # 0.9 (0.1-0.6); MONO % 5.1 % (1.0-6.0); PLATELET COUNT 244 10^3/uL (120.0-450.0); RBC 3.08 10^6/uL (3.5-6.1); RED CELL DISTRIBUTION WIDTH 18.5 % (11.5-14.5); WHITE BLOOD COUNT 16.5 10^3/ul (4.5-11.0)
[2016-10-20 18:14] LABS: ALB/GLOB RATIO 1.5 (1.1-1.8); ALBUMIN 3.9 g/dL (3.0-4.8); ALT/SGPT 20 U/L (7-56); AST/SGOT 26 U/L (15-39); BLOOD UREA NITROGEN 42 mg/dL (7-21); CALCIUM 9.4 mg/dL (8.4-10.5); GFR AFRICAN-AMERICAN > 60; GFR NON-AFRICAN AMERICAN > 60; MAGNESIUM 1.7 mg/dL (1.7-2.2)
[2016-10-20 18:25] LABS: PROTHROMBIN TIME 32.4 Seconds (9.9-11.8)
[2016-10-20 18:33] LABS: URINE BILIRUBIN NEGATIVE (NEGATIVE); URINE BLOOD LARGE (NEGATIVE); URINE GLUCOSE (UA) NEGATIVE (NEGATIVE); URINE LEUKOCYTE ESTERASE SMALL Leu/uL (NEGATIVE); URINE NITRATE POSITIVE (NEGATIVE); URINE PROTEIN 30 mg/dL (<30 mg/dL); URINE UROBILINOGEN 0.2 E.U./dL (<1 E.U./dL)
[2016-10-20 18:34] LABS: URINE APPEARANCE SL CLOUDY (CLEAR); URINE COLOR YELLOW (YELLOW)
[2016-10-20 18:37] LABS: URINE RBC 25 - 30 /hpf (0-2)
[2016-10-20 18:38] LABS: URINE BACTERIA MANY (NEG)
--- NOTE | 2016-10-20 20:10 | CT ---
EXAM: CT Head Without Intravenous Contrast CLINICAL HISTORY: The patient age is 71 years old and is female; Signs and symptoms; Altered mental status/memory loss; Confusion or disorientation Facility exam id and description: Ct heads head w/o contrast TECHNIQUE: Axial computed tomography images of the head/brain without intravenous contrast. This CT exam was performed using one or more of the following dose reduction techniques: automated exposure control, adjustment of the mA and/or kV according to patient size, and/or use of iterative reconstruction technique. EXAM DATE/TIME: 10/20/2016 4:59 PM COMPARISON: CT - HEAD W/O CONTRAST 04/01/2016 7:45:43 PM FINDINGS: Artifacts: Motion artifact limits this study. Brain: There are scattered foci of hypodensity within the cerebral white matter, likely representing small vessel ischemic disease in a patient this age. The acuity of the white matter disease is indeterminate. The white-escobar differentiation is preserved demonstrating no acute territorial type infarct. There is mild prominence of the ventricles and sulci, compatible with atrophy. No acute intracranial hemorrhage is seen. Midline shift: There is no midline shift. Ventricles: See above. Bones/joints: The calvarium demonstrates no evidence for a depressed fracture. There is a focal area of thickening in the outer table of the right frontal skull, suggestive of an osteoma. Soft tissues: No acute abnormality. Vasculature: There is atherosclerotic calcification of the cavernous internal carotid arteries and distal left vertebral artery. Sinuses: Unremarkable as visualized. No acute sinusitis. Mastoid air cells: No mastoid effusion. IMPRESSION: 1. No acute intracranial hemorrhage or acute territorial type infarct. 2. There are scattered foci of hypodensity within the cerebral white matter, likely representing small vessel ischemic disease in a patient this age. 3. Mild atrophy. 4. If further evaluation is clinically indicated, an MRI of the brain is recommended.
[2016-10-20] MEDS ORDERED: Sodium Chloride 0.9% 1,000 ML IV SCH (22:00)
[2016-10-20 22:09] LABS: VENOUS BLOOD GAS BASE EXCESS 3.1 mmol/L (0.0-2.0); VENOUS BLOOD GAS PO2 192 mm/Hg (30-55); VENOUS BLOOD PH 7.37 (7.32-7.43)
[2016-10-20] MEDS ORDERED: Fluconazole IV 400mg/200ml NS 200 ML IVPB ONE (22:21)
--- NOTE | 2016-10-20 22:59 | CP.PCM.CON ---
<AshleyAlexander locke - Last Filed: 10/21/16 01:26> History of Present Illness - History of Present Illness History of Present Illness: ICU Consult Note CC: AMS, lethargic, foot and groin rash HPI: This is a 71 yo F with PMH of morbid-obesity, diabetes, HTN, HLD , CAD, A-fib on coumadin, COPD, pulm HTN, CHF with preserved EF (52%), chronic anemia, and hx GI bleed who was [place] [facility] [place] for lethargy and altered mental status. HPI/ROS limited as daughter not present at bedside at time of exam and patient remains lethargic/altered. As per ED charting, daughter reported patient fine when last seen in the AM, but upon picking up the patient, the daughter noted her mother was lethargic, confused, and had soiled herself. Daughter also noted what appeared to be an infection in the left foot and a groin rash that she had not noted previously. At bedside, patient remains significantly lethargic, requiring repeated arousals to answer most questions. Oriented to self, knows she is in a hospital, and can recall that her daughter sent her to the hospital because she wasn't feeling well, but doesn't know what hospital she is in, unable to say what didn't feel well or why , and only articulated complaint is feeling tired. Code SEPSIS was called in the ED due to elevated WBCs (>16), lactate of 2.6, and likely source of cellulitis vs UTI. As per charting: PMH: as above PSH: Hysterectomy, b/l knee replacement, left breast lumpectomy Social: Heavy smoker, no alcohol or drug use PMD: Dr. Kirby Review of Systems - Review of Systems Systems not reviewed;Unavailable: Altered Mental Status (lethargic/somnolent, requires frequent arousals and reorientation to answer most questions) Past Patient History - Infectious Disease Hx of Infectious Diseases: None - Tetanus Immunizations Tetanus Immunization: Unknown - Past Medical History & Family History Past Medical History?: Yes - Past Social History Smoking Status: Heavy Smoker > 10 Cigarettes Daily - CARDIAC Hx Congestive Heart Failure: Yes Hx Hypertension: Yes - PULMONARY Hx Chronic Obstructive Pulmonary Disease (COPD): Yes - NEUROLOGICAL Hx Neurological Disorder: Yes Hx Seizures: Yes - HEENT Hx HEENT Problems: No - RENAL Hx Renal Failure: Yes - ENDOCRINE/METABOLIC Hx Diabetes Mellitus Type 2: Yes Hx Hypothyroidism: Yes - HEMATOLOGICAL/ONCOLOGICAL Hx Blood Disorders: Yes (sepsis) Hx Anemia: Yes (iron deficiency) Hx Cancer: Yes (left breast lumpectomy) Hx Chemotherapy: Yes - INTEGUMENTARY Hx Dermatological Problems: No - MUSCULOSKELETAL/RHEUMATOLOGICAL Hx Arthritis: Yes - GASTROINTESTINAL Hx Gastrointestinal Disorders: No - GENITOURINARY/GYNECOLOGICAL Hx Genitourinary Disorders: Yes (UTI) Hx Reproductive Disorders: No - PSYCHIATRIC Hx Psychophysiologic Disorder: Yes Hx Anxiety: Yes - SURGICAL HISTORY Hx Cardiac Catheterization: Yes Hx Joint Replacement: Yes Hx Orthopedic Surgery: Yes - ANESTHESIA Hx Anesthesia: Yes Hx Anesthesia Reactions: No Hx Malignant Hyperthermia: No Meds Allergies/Adverse Reactions: Allergies Allergy/AdvReac Type Severity Reaction Status Date / Time No Known Allergies Allergy Verified 10/01/16 18:19 - Medications Medications: Current Medications Acetaminophen (Tylenol 325mg Tab) 650 mg PO Q6H PRN PRN Reason: Fever >100.4 F Aspirin (Ecotrin) 81 mg PO 0800 WAYNE Hydralazine HCl (Apresoline) 50 mg PO BID WAYNE Fluconazole (Diflucan Iv 400mg/200ml Ns) 200 mls @ 100 mls/hr IVPB STAT ONE PRN Reason: Protocol Stop: 10/21/16 00:20 Sodium Chloride (Sodium Chloride 0.9%) 1,000 mls @ 75 mls/hr IV .[id number] WAYNE Vancomycin HCl (Vancomycin 1gm) 1 gm in 250 mls @ 167 mls/hr IVPB Q12H WAYNE PRN Reason: Protocol Piperacillin Sod/Tazobactam Sod (Zosyn 3.375 In Ns 100ml) 100 mls @ 200 mls/hr IVPB Q6 WAYNE PRN Reason: Protocol Stop: 10/21/16 06:29 Isosorbide Mononitrate (Imdur) 60 mg PO DAILY WAYNE Lactic Acid (Lac-Hydrin 12% Lotion (225 G)) gm EXT BID WAYNE Levalbuterol HCl (Xopenex) 1.25 mg IH [id number] PRN PRN Reason: Shortness of Breath Nadolol (Corgard) 10 mg PO BID WAYNE Tiotropium Adrian (Spiriva) 18 mcg IH DAILY WAYNE Valsartan (Diovan) 320 mg PO DAILY WAYNE Warfarin Sodium (Coumadin) 5 mg PO 1800 WAYNE PRN Reason: Protocol Physical Exam - Constitutional Appears: Non-toxic, No Acute Distress, Older Than Stated Age, Chronically Ill, Other (lethargic/somnolent, briefly arousable but rapidly returns to somnolent state) - Head Exam Head Exam: ATRAUMATIC, NORMAL INSPECTION, NORMOCEPHALIC - Eye Exam Eye Exam: Normal appearance. absent: Conjunctival injection, Scleral icterus Pupil Exam: absent: Irregular, Unequal Additional comments: unable to test EOMI due to patient not following most commands, very somnolent able to open eyes and orient to source of verbal/physical stimuli, very briefly able to track staff within room before becoming somnolent again. - ENT Exam ENT Exam: Mucous Membranes Moist. absent: Mucous Membranes Dry - Respiratory Exam Respiratory Exam: Decreased Breath Sounds (diffusely in all escobar), NORMAL BREATHING PATTERN. absent: Accessory Muscle Use, Chest Wall Tenderness, Rales, Rhonchi, Wheezes, Respiratory Distress - Cardiovascular Exam Cardiovascular Exam: Irregular Rhythm (irregularly irregular, but not grossly bradycardic or tachycardic), +S1, +S2, Systolic Murmur (systolic murmur most prominent at aortic auscultory region). absent: Bradycardia, Tachycardia, REGULAR RHYTHM, RRR, +S4 - GI/Abdominal Exam GI & Abdominal Exam: Normal Bowel Sounds, Soft, Tenderness (mild tenderness to deep palpation along inferior abdominal midline in bladder region). 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 Increased warmth to palpation along both areas of discoloration in LLE +1-2 pitting edema in LLE along areas of discoloration +1 pitting edema RLE along areas of discoloration ulceration of L toe from distal portion to mid-proximal phalanx region, necrotic appearing exudation over ulceration, no gross softness or tenderness on palpation, some swelling of at metatarsal joint, pain with compression of L first toe in direction of metatarsal joint - Neurological Exam Additional comments: Somnolent/lethargic, arousable and briefly awake/alert but rapidly returns to somnolent state, minimal spontaneous movement of extremities oriented to being in a hospital, but not which hospital - Psychiatric Exam Additional comments: unable to assess due to somnolent/lethargic state, requires repeated arousals and reorientation to answer most questions, only partially oriented to location - Skin Additional comments: Scatter echymosis most prominent along abdomen Discoloration and ulcerations as described in extremities exam Results - Vital Signs Recent Vital Signs: Last Vital Signs Temp 98.8 F 10/20/16 20:15 Pulse 67 10/20/16 21:18 Resp 18 10/20/16 21:18 BP 119/55 L 10/20/16 21:18 Pulse Ox 100 10/20/16 21:18 - Labs Result Diagrams: 10/20/16 17:50 10/20/16 17:50 Labs: Laboratory Results - last 24 hr 10/20/16 21:57 pO2 192 H VBG pH 7.37 VBG pCO2 50.0 VBG HCO3 28.9 H VBG Total CO2 30.4 H VBG O2 Sat (Calc) 99.7 H VBG Base Excess 3.1 H VBG Potassium 3.8 Sodium 137.0 Chloride 107.0 Glucose 182 H Lactate 0.8 FiO2 21.0 Venous Blood Potassium 3.8 Assessment & Plan - Assessment and Plan (Free Text) Assessment: This is a 71 yo F with PMH of morbid-obesity, diabetes, HTN, HLD, CAD , A-fib on coumadin, COPD, pulm HTN, CHF with preserved EF (52%), chronic anemia , and hx GI bleed who was brought [place] [facility] [place] daughter for lethargy and altered mental status. She is being worked up for Sepsis 2/2 Cellulitis vs UTI. Plan: Neuro: -Somnolent/lethargic, likely 2/2 Sepsis -some spontaneous extremity movement, responds initially to verbal stimuli and retracts from noxious stimuli -Tmax 100.1F in ED given 975mg Tylenol x1 in ED; maintain normothermia, PRN Tylenol for fevers > 100.4F Pulm: -Diffusely decreased breath sounds on exam, but no gross wheezes/rales/ronchi -No report of shortness of breath, satting well on 2L NC -Goal SaO2 > 88% given hx of COPD, extensive and active tobacco abuse; avoid excessive oxygenation to prevent loss of respiratory drive in COPD pt -Continue home Spiriva -Xopenex prn q6 -Nicotine patch 21mg TD daily given extensive and active tobacco hx Cardio: -Irregularly Irregular, but not grossly tachycardic or bradycardic; Hx afib anticoagulated with coumadin -Hx HTN -Continue home ASA, Hydralazine, Imdur, and Diovan -INR currently high normal therapeutic range, 3.0, repeat PT/PTT in AM and adjust coumadin as appropriate -Maintain MAP > 65, No pressor support indicated at this time -Appears dehydrated, and with Sepsis, want to provide appropriate fluid repletion, but given hx CHF, will gently hydrate at 75cc/hr with NS GI: -NPO due to somnolence and risk of aspiration -Protonix for GI ppx Renal: -Cr 0.9, baseline per prior charting; BUN 42, regularly fluctuates between 20's- 50's per prior charting -BUN/Cr ratio suggestive of some dehydration, but given hx CHF, will gently rehydrate at 75cc/hr -Holding home Lasix for now, will resume when fluid status improved -Monitor I's and O's -Monitor and replete electrolytes as needed; low normal Mg at 1.7, repleted, f/ u on AM labs MSK: -Left 1st toe ulceration, necrotic-appearing debris overlying -no active oozing, no pus expressed with pressure -swelling of 1st metatarsal joint, tender with pressure at distal 1st toe directed towards metatarsal joint -Podiatry (Dr. Hoffman) consulted, appreciate all recs -LE Venous and arterial duplexes ordered, f/u Heme: -Hgb 8.7, baseline per prior charting -Hx of anemia requiring transfusions, last transfused 2 units pRBCs 09/29-2016 -Transfuse if Hgb < 7.0 or decreasing and presenting with Hemodynamic instability, active cardiac event (NSTEMI/STEMI), or signs of end-organ dmg -INR 3.0, repeat PT/PTT in AM and adjust/hold Coumadin dosing appropriately -therapeutic INR covers for DVT ppx ID: -WBC 16.5, Tmax 100.1F, Source cellulitis vs groin rash vs UTI vs 2/2 necrotic L 1st toe ulcer; Code SEPSIS called in the ED at 1835 on 10/20 -1x Vanc and Zosyn IV in ED, continue pending ID eval and recs -ID (Dr. Obrien consulted), appreciate all recs -Lactate 2.6 in ED, 0.8 on repeat -Blood, urine, and wound cultures pending -UA suggestive of UTI, but in setting of diffuse groin rash supicious for haydee, likely unreliable sample, need clean-catch sample -Started on IV fluconazole for possible diffuse candidiasis -Procal ordered, 4.68 Endo: -hold PO hypoglycemics given currently NPO and somnolent state -Insulin Med ISS and Accuchecks ACHS Dispo: ICU, IV abx for suspected sepsis, pending sepsis w/u, ID recs for abx, reassessment of neuro status FEN: NPO, NS 75cc/hr Access: Peripheral IV Consults: ID, Podiatry Ppx: Protonix for GI, therapeutic INR covers for DVT Code Status: Unknown, so full code Patient seen, reviewed, and discussed with attending, Dr. Benites. - Date & Time Date: 10/21/16 Time: 01:55 <Jack Benites P - Last Filed: 10/21/16 05:55> Meds - Medications Medications: Current Medications Acetaminophen (Tylenol 325mg Tab) 650 mg PO Q6H PRN PRN Reason: Fever >100.4 F Aspirin (Ecotrin) 81 mg PO 0800 WAYNE Glimepiride (Amaryl) 4 mg PO ACBD WAYNE Hydralazine HCl (Apresoline) 50 mg PO BID WAYNE Sodium Chloride (Sodium Chloride 0.9%) 1,000 mls @ 75 mls/hr IV .[id number] [facility] Last Admin: 10/20/16 23:00 Dose: 75 mls/hr Vancomycin HCl (Vancomycin 1gm) 1 gm in 250 mls @ 167 mls/hr IVPB Q12H WAYNE PRN Reason: Protocol Piperacillin Sod/Tazobactam Sod (Zosyn 3.375 In Ns 100ml) 100 mls @ 200 mls/hr IVPB Q6 WAYNE PRN Reason: Protocol Stop: 10/28/16 00:01 Last Admin: 10/21/16 05:17 Dose: 200 mls/hr Insulin Human Lispro (Humalog Med) 0 units SC ACHS WAYNE PRN Reason: Protocol Isosorbide Mononitrate (Imdur) 60 mg PO DAILY WAYNE Lactic Acid (Lac-Hydrin 12% Lotion (225 G)) 0 gm EXT BID WAYNE Levalbuterol HCl (Xopenex) 1.25 mg IH [id number] PRN PRN Reason: Shortness of Breath Nicotine (Nicoderm Cq) 1 patch TD DAILY WAYNE Nystatin/Triamcinolone Acetonide (Nystatin/Triamcinolone Cream) 0 ea TOP BID WAYNE Pantoprazole Sodium (Protonix Inj) 40 mg IVP DAILY WAYNE Sitagliptin Phosphate (Januvia) 50 mg PO DAILY WAYNE Tiotropium Adrian (Spiriva) 18 mcg IH DAILY WAYNE Valsartan (Diovan) 320 mg PO DAILY WAYNE Warfarin Sodium (Coumadin) 5 mg PO 1800 WAYNE PRN Reason: Protocol Results - Vital Signs Recent Vital Signs: Last Vital Signs Temp 98.2 F 10/21/16 00:00 Pulse 68 10/21/16 01:50 Resp 17 10/21/16 01:50 BP 109/52 L 10/21/16 01:00 Pulse Ox 93 L 10/21/16 01:50 - Labs Result Diagrams: 10/20/16 17:50 10/20/16 17:50 Labs: Laboratory Results - last 24 hr 10/20/16 10/20/16 10/21/16 21:57 23:45 00:35 pO2 192 H VBG pH 7.37 VBG pCO2 50.0 VBG HCO3 28.9 H VBG Total CO2 30.4 H VBG O2 Sat (Calc) 99.7 H VBG Base Excess 3.1 H VBG Potassium 3.8 Sodium 137.0 Chloride 107.0 Glucose 182 H Lactate 0.8 FiO2 21.0 POC Glucose (mg/dL) 200 H Lactic Acid 0.9 Venous Blood Potassium 3.8 Attending/Attestation - Attestation I have personally seen and examined this patient.: Yes I have fully participated in the care of the patient.: Yes I have reviewed all pertinent clinical information: Yes Notes (Text): Assessment * Lethargy arusable, but suggestive of metabolic encephalopathy * Sepsis suspected sources left 1st metatarso-phylangeal joint swelling, cellulitis of left mid leg, uti, bacterimia * h/o with EF 50%, MR, afib on anticoagulation inr 3, cad single vessel disease. * PVD recent intervention in the left leg multiple levels * Clinically dry * H/o COPD * DM type 2 * Vaginal and skin fold candidiasis Plan * Broad spectrum abx, and diflucan * Gentle Ivf, hold lasix * Podiatry and ID consult * urine cath sample * Foot CT * Arterial dopplers * Observe in icu till MS improves of not get worse * See orders for detail.
--- NOTE | 2016-10-21 00:34 | PCM.SEPTIC ---
Sepsis Progress Note - Reassessment Type Date of Evaluation: 10/21/16 Time of Evaluation: 00:35 Reassessment Type: Non-invasive reassessment - Non Invasive Reassessment Were the most recent vital sign reviewed: Yes Vital Sign (Latest): Temp Pulse Resp BP Pulse Ox 98.2 F 63 16 119/53 L 100 10/20/16 22:55 10/20/16 22:55 10/20/16 22:55 10/20/16 22:55 10/20/16 21:18 Cardiovascular: Yes: Irregularly Irregular Respiratory: Yes: Decreased Breath Sounds (diffusely, unchanged from exam on admission). No: Rales, Rhonchi, Wheezing Capillary Refill: Normal (Less than 2 sec) Pulses: Normal Radial, Absent Dorsalis Pedis, Absent Posterior Tibialis Skin: Other (bilateral LE discoloration L>R, L first toe ulceration, scattered echymosis)
[2016-10-21] MEDS ORDERED: Levalbuterol 1.25 MG/3 ML Inhal Soln UD IH SCH (02:00)
[2016-10-21] MEDS: Piperacillin/Tazobact 3.375 gm 100 ML IVPB SCH ×4 (02:03→21:57)
--- NOTE | 2016-10-21 03:29 | HP ---
HISTORY OF PRESENT ILLNESS: The patient is a 71-year-old known to me from multiple previous admissions, was found to be lethargic, somnolent at home with mild shortness of breath, bilateral leg swelling, and bilateral leg tenderness. According to daughter, she was relatively okay this morning but in the afternoon, she became increasingly drowsy and sleepy and she had bowel movement in her room. , there was no fever noted. No nausea or vomiting. No rectal bleeding. No hemoptysis. No hematemesis. Does have shortness of breath. No complaint of abdominal pain. No cough or congestion. PAST MEDICAL HISTORY: Significant for: 1. Morbid obesity. 2. Coronary artery disease. 3. Status post cardiac cath almost 2 years ago and was found to have right coronary artery occlusion 99% with both collaterals. 4. COPD. 5. Cardiomyopathy. 6. Chronic kidney disease. 7. Noninsulin-dependent diabetes. 8. Chronic anemia. 9. History of GI AVMs and the patient is chronically heme positive. 10. Cardiac cirrhosis. 11. Congestive gastropathy. ALLERGIES: SHE IS NOT ALLERGIC TO ANY MEDICATIONS. MEDICATIONS AT HOME: She is on: 1. Metformin 500 twice a day. 2. Hydralazine 50 mg twice a day. 3. Mucinex 600 twice a day. 4. Zolpidem 5 mg at bedtime. 5. Coumadin 5 mg daily. 6. Valsartan 320 daily. 7. Spiriva. 8. Janumet . 9. Potassium chloride 10 mEq daily. 10. Protonix 40 daily. 11. She is on nicotine patch. 12. Nadolol 10 mg twice a day. 13. Xopenex every 6 hours. 14. Imdur 60 mg daily. 15. Glimepiride 4 mg twice a day. 16. Xanax as needed. SOCIAL HISTORY: She is actively smoking. Has been smoking for more than 50 years. Does not drink. No history of drug use. REVIEW OF SYSTEMS: Seems to be sleepy, but arousable. PHYSICAL EXAMINATION: VITAL SIGNS: She is afebrile, pulse 65, respirations 16, and blood pressure 119/55. HEART: S1 and S2 audible. LUNGS: Bilateral fair airflow. Diffusely decreased breath sounds. scattered bilateral rhonchi. ABDOMEN: Soft, obese, and nontender. SKIN: Foul smell in the groin area because of her chronic fungal skin infection. EXTREMITIES: Bilateral leg diagnosed with +2 edema. Left big toe ulcer present. NEUROLOGIC: She is sleepy, but arousable. Able to move all extremities. LABORATORY DATA: WBC 16.5, hemoglobin 8.7, hematocrit 27.8, and platelets of 244. PT 32.4, INR 3.0, PTT 42.0. Chemistry; sodium 138, potassium 4.0, chloride 98, CO2 of 26, BUN 42, creatinine 0.9, blood sugar of 214. Urinalysis shows large blood, positive nitrites, and leukocytes. CT scan of the head is unremarkable. X-ray of the chest, moderate cardiomegaly and moderate vascular congestion. ASSESSMENT: 1. Chronic obstructive lung disease exacerbation. 2. Carbon dioxide retention and carbon dioxide narcosis. 3. Bilateral leg cellulitis. 4. Hypertension. 5. Coronary artery disease. 6. Cardiomyopathy. 7. Hyperlipidemia. 8. Noninsulin-dependent diabetes. 9. Leukocytosis. PLAN: We will start the patient on IV antibiotics. Blood culture and urine culture have sent. Started on Xopenex. We will continue Coumadin. Follow PT/INR. Monitor blood sugar and monitor blood pressure. Bilateral leg Doppler has been requested to rule out DVT. We will reevaluate the patient in the a.m. Edwige Kirby MD
[2016-10-21 06:37] LABS: BASO # 0.01 K/mm3 (0.0-2.0); BASO % 0.1 % (0.0-3.0); EOS # 0.2 (0.0-0.7); EOS % 1.4 % (1.5-5.0); GRAN # 10.13 (1.4-6.5); GRAN % 85.5 % (50.0-68.0); LYMPH # 0.8 (1.2-3.4); LYMPH % 6.8 % (22.0-35.0); MEAN CELL VOLUME 92.6 fL (80.0-105.0); MEAN CORPUSCULAR HEMOGLOBIN 27.5 pg (25.0-35.0); MEAN CORPUSCULAR HGB CONC 29.7 g/dl (31.0-37.0); MEAN PLATELET VOLUME 9.8 fl (7.0-11.0); MONO # 0.7 (0.1-0.6); MONO % 6.2 % (1.0-6.0); PLATELET COUNT 227 10^3/uL (120.0-450.0); RBC 2.69 10^6/uL (3.5-6.1); RED CELL DISTRIBUTION WIDTH 18.7 % (11.5-14.5); WHITE BLOOD COUNT 11.8 10^3/ul (4.5-11.0)
[2016-10-21 06:48] LABS: INR 2.76 (0.93-1.08); PARTIAL THROMBOPLASTIN TIME 46.9 Seconds (23.7-30.8); PROTHROMBIN TIME 29.8 Seconds (9.9-11.8)
[2016-10-21 06:53] LABS: HEMOGLOBIN 7.4 gm/dL (12.0-16.0)
[2016-10-21 07:57] LABS: ALB/GLOB RATIO 1.2 (1.1-1.8); ALBUMIN 2.9 g/dL (3.0-4.8); ALT/SGPT 20 U/L (7-56); AST/SGOT 17 U/L (15-39); BLOOD UREA NITROGEN 36 mg/dL (7-21); CALCIUM 7.9 mg/dL (8.4-10.5); GFR AFRICAN-AMERICAN > 60; GFR NON-AFRICAN AMERICAN 55; MAGNESIUM 1.6 mg/dL (1.7-2.2)
[2016-10-21] MEDS: Insulin Lispro (humaLOG) MEDIUM Coverage SC SCH ×4 (08:02→22:50)
[2016-10-21] MEDS ORDERED: Magnesium Sulfate 2 GM in Sodium Chloride 0.9% 100 ML IVPB ONE (09:10)
[2016-10-21] MEDS: Vancomycin 1gm in NS 250ml 1 GM/250 ML BAG IVPB SCH ×2 (09:45→22:27)
--- NOTE | 2016-10-21 09:52 | CARD ---
APPROVED REPORT EKG Measurement Heart [id number] <Conclusion> Atrial fibrillation with one premature ventricular or aberrantly conducted complex Anterior infarct, old NSSTW changes No change
[2016-10-21] MEDS: Tiotropium 18 mcg Cap For Inhalation IH SCH (09:57)
--- NOTE | 2016-10-21 10:08 | CARD ---
APPROVED REPORT EKG Measurement Heart [id number] <Conclusion> Atrial fibrillation Anterior infarct, old IVCD NSSTW changes No change
--- NOTE | 2016-10-21 11:45 | CP.PCM.PN ---
<SUNDARRALPHZEYNEP - Last Filed: 10/21/16 13:19> Subjective - Date & Time of Evaluation Date of Evaluation: 10/21/16 Time of Evaluation: 06:45 - Subjective Subjective: Paula Grace DO PGY1 - ICU Progress Note Patient seen and examined at bedside. Patient was admitted overnight to the ICU for sepsis 2/2 cellulitis vs infected left toe wound vs UTI. Nurse reports no acute events overnight. She has been afebrile since admission with stable vital signs. Currently she has no particular complaints, and is hungry, requesting breakfast. She denies CP, SOB, abdominal pain, N/V/D, F/C. Objective - Vital Signs/Intake and Output Vital Signs (last 24 hours): Temp Pulse Resp BP Pulse Ox 98.5 F 74 17 94/51 L 93 L 10/21/16 06:00 10/21/16 09:54 10/21/16 01:50 10/21/16 09:54 10/21/16 01:50 Intake and Output: 10/21/16 10/21/16 06:59 18:59 Intake Total 2250 Output Total 200 Balance 2050 - Medications Medications: Current Medications Acetaminophen (Tylenol 325mg Tab) 650 mg PO Q6H PRN PRN Reason: Fever >100.4 F Aspirin (Ecotrin) 81 mg PO 0800 COUNTS INCLUDE 234 BEDS AT THE [facility] Last Admin: 10/21/16 09:48 Dose: 81 mg Glimepiride (Amaryl) 4 mg PO ACBD COUNTS INCLUDE 234 BEDS AT THE [facility] Last Admin: 10/21/16 09:47 Dose: 4 mg Hydralazine HCl (Apresoline) 50 mg PO BID COUNTS INCLUDE 234 BEDS AT THE [facility] Last Admin: 10/21/16 09:54 Dose: Not Given Sodium Chloride (Sodium Chloride 0.9%) 1,000 mls @ 75 mls/hr IV .[id number] COUNTS INCLUDE 234 BEDS AT THE [facility] Last Admin: 10/20/16 23:00 Dose: 75 mls/hr Vancomycin HCl (Vancomycin 1gm) 1 gm in 250 mls @ 167 mls/hr IVPB Q12H WAYNE PRN Reason: Protocol Last Admin: 10/21/16 09:45 Dose: 167 mls/hr Piperacillin Sod/Tazobactam Sod (Zosyn 3.375 In Ns 100ml) 100 mls @ 200 mls/hr IVPB Q6 WAYNE PRN Reason: Protocol Stop: 10/28/16 00:01 Last Admin: 10/21/16 05:17 Dose: 200 mls/hr Potassium Chloride (Potassium Chloride 10 Meq/100 Ml) 10 meq in 100 mls @ 100 mls/hr IVPB Q2H WAYNE Stop: 10/21/16 11:59 Last Admin: 10/21/16 09:46 Dose: 100 mls/hr Insulin Human Lispro (Humalog Med) 0 units SC ACHS COUNTS INCLUDE 234 BEDS AT THE [facility] PRN Reason: Protocol Last Admin: 10/21/16 08:02 Dose: Not Given Isosorbide Mononitrate (Imdur) 60 mg PO DAILY COUNTS INCLUDE 234 BEDS AT THE [facility] Last Admin: 10/21/16 09:54 Dose: Not Given Lactic Acid (Lac-Hydrin 12% Lotion (225 G)) 0 gm EXT BID WAYNE Levalbuterol HCl (Xopenex) 1.25 mg IH [id number] PRN PRN Reason: Shortness of Breath Nicotine (Nicoderm Cq) 1 patch TD DAILY COUNTS INCLUDE 234 BEDS AT THE [facility] Last Admin: 10/21/16 09:46 Dose: 1 patch Nystatin/Triamcinolone Acetonide (Nystatin/Triamcinolone Cream) 0 ea TOP BID COUNTS INCLUDE 234 BEDS AT THE [facility] Pantoprazole Sodium (Protonix Inj) 40 mg IVP DAILY COUNTS INCLUDE 234 BEDS AT THE [facility] Last Admin: 10/21/16 09:44 Dose: 40 mg Sitagliptin Phosphate (Januvia) 50 mg PO DAILY COUNTS INCLUDE 234 BEDS AT THE [facility] Last Admin: 10/21/16 09:48 Dose: 50 mg Tiotropium Hamilton (Spiriva) 18 mcg IH DAILY COUNTS INCLUDE 234 BEDS AT THE [facility] Last Admin: 10/21/16 09:57 Dose: 18 mcg Valsartan (Diovan) 320 mg PO DAILY COUNTS INCLUDE 234 BEDS AT THE [facility] Last Admin: 10/21/16 09:54 Dose: Not Given Warfarin Sodium (Coumadin) 5 mg PO 1800 COUNTS INCLUDE 234 BEDS AT THE [facility] PRN Reason: Protocol - Labs Labs: 10/21/16 05:30 10/21/16 05:30 PT 29.8 Seconds (9.9-11.8) H 10/21/16 05:30 INR 2.76 (0.93-1.08) H 10/21/16 05:30 APTT 46.9 Seconds (23.7-30.8) H 10/21/16 05:30 - Constitutional Appears: Non-toxic, No Acute Distress, Chronically Ill - Head Exam Head Exam: ATRAUMATIC, NORMOCEPHALIC - Eye Exam Eye Exam: EOMI, Normal appearance Additional comments: Left eye ptotic - ENT Exam ENT Exam: Mucous Membranes Moist - Respiratory Exam Additional comments: Clear but decreased breath sounds. - Cardiovascular Exam Cardiovascular Exam: Irregular Rhythm, +S1, +S2 - GI/Abdominal Exam GI & Abdominal Exam: Soft. absent: Firm, Guarding, Rigid, Tenderness - Extremities Exam Additional comments: 3cm ulcer with necrotic base on left great toe, with surrounding erythema. Tender b/l raised erythematous plaques on shins, anterior and medial aspects, tender - Neurological Exam Neurological Exam: Alert, Awake, Oriented x3 - Psychiatric Exam Psychiatric exam: Flat Affect, Normal Mood - Skin Additional comments: Lesions as described in extremities exam Assessment and Plan - Assessment and Plan (Free Text) Assessment: This is a 71 yo F with PMH of morbid-obesity, diabetes, HTN, HLD, CAD , A-fib on coumadin, COPD, pulm HTN, CHF with preserved EF (52%), chronic anemia , and hx GI bleed who was brought to [facility] by daughter for lethargy and altered mental status. Admitted to the ICU for sepsis 2/2 to cellulitis vs UTI Plan: Neuro: - AAOx3, mentating normally - Continue to monitor Pulm: - Diffusely decreased breath sounds on exam, but no gross wheezes/rales/ronchi - No report of shortness of breath, satting well on 2L NC - Goal SaO2 > 88% given hx of COPD, extensive and active tobacco abuse; avoid excessive oxygenation to prevent loss of respiratory drive in COPD pt - Continue home Spiriva - Xopenex prn q6 - Nicotine patch 21mg TD daily given extensive and active tobacco hx Cardio: - Irregularly Irregular Rhythm; Hx afib anticoagulated with coumadin, INR therapeutic - Hx HTN - Continue home ASA, Hydralazine, Imdur, and Diovan - Maintain MAP > 65 - Continue 75cc/hr with NS GI: - Advance diet as tolerated - Protonix for GI ppx Renal: - Cr 1.0, baseline per prior charting, BUN 36 still slightly dehydrated - Continue gentle hydration at 75cc/hr NS, monitor fluid status closely - Still holding home Lasix for now, will resume when fluid status improved, monitoring closely - Monitor I's and O's - Monitor and replete electrolytes as needed MSK: - Left 1st toe ulceration, necrotic-appearing base - no active oozing, no pus expressed with pressure - swelling of 1st metatarsal joint, tender with pressure at distal 1st toe directed towards metatarsal joint - Podiatry (Dr. Hoffman) consulted, appreciate all recs - LE Venous and arterial duplexes ordered, f/u Heme: - Hgb 7.4, likely dilutional, from 8.7 (baseline) yesterday - Hx of anemia requiring transfusions, last transfused 2 units pRBCs 09/29-2016 - Transfuse if Hgb < 7.0 or decreasing and presenting with Hemodynamic instability, active cardiac event (NSTEMI/STEMI), or signs of end-organ dmg - INR 2.76, continue to monitor INR and PTT - therapeutic INR covers for DVT ppx ID: - WBC improved to 11.8, Tmax 100.1F, but resolved overnight, Source cellulitis vs groin rash vs UTI vs 2/2 necrotic L 1st toe ulcer; Code SEPSIS called in the ED at 1835 on 10/20 - Vanc and Zosyn IV, continue pending ID eval and recs - ID (Dr. Obrien consulted), appreciate all recs - Lactate 2.6 in ED, 0.8 on repeat - Blood culture pending. Wound cultures negative after 24 hours. Urine culture positive for gram negative rods, sensitivity pending. - Received one dose of IV fluconazole in ED for diffuse fungal appearing rashes. - Procal 4.68 Endo: - Glimepiride 4mg PO ACBD, Januvia 50mg PO QD - Insulin Med ISS and Accuchecks ACHS - Maintain blood glucose 120-150 Dispo: Likely d/c from ICU today as patient is stable and no longer meets criteria for ICU admission, IV abx for suspected sepsis, ongoing sepsis w/u, ID recs for abx, podiatry recs for wound Ppx: Protonix for GI, therapeutic INR covers for DVT Patient seen, reviewed, and discussed with senior resident and attending <Cassius Storm - Last Filed: 10/21/16 17:15> Objective - Vital Signs/Intake and Output Vital Signs (last 24 hours): Temp Pulse Resp BP Pulse Ox 98.1 F 66 21 112/50 L 93 L 10/21/16 16:59 10/21/16 16:59 10/21/16 16:59 10/21/16 16:59 10/21/16 01:50 Intake and Output: 10/21/16 10/21/16 06:59 18:59 Intake Total 2250 0 Output Total 200 Balance 2050 0 - Medications Medications: Current Medications Acetaminophen (Tylenol 325mg Tab) 650 mg PO Q6H PRN PRN Reason: Fever >100.4 F Last Admin: 10/21/16 16:29 Dose: 650 mg Aspirin (Ecotrin) 81 mg PO 0800 COUNTS INCLUDE 234 BEDS AT THE [facility] Last Admin: 10/21/16 09:48 Dose: 81 mg Glimepiride (Amaryl) 4 mg PO ACBD COUNTS INCLUDE 234 BEDS AT THE [facility] Last Admin: 10/21/16 16:29 Dose: 4 mg Hydralazine HCl (Apresoline) 50 mg PO BID COUNTS INCLUDE 234 BEDS AT THE [facility] Last Admin: 10/21/16 09:54 Dose: Not Given Vancomycin HCl (Vancomycin 1gm) 1 gm in 250 mls @ 167 mls/hr IVPB Q12H WAYNE PRN Reason: Protocol Last Admin: 10/21/16 09:45 Dose: 167 mls/hr Piperacillin Sod/Tazobactam Sod (Zosyn 3.375 In Ns 100ml) 100 mls @ 200 mls/hr IVPB Q6 WAYNE PRN Reason: Protocol Stop: 10/28/16 00:01 Last Admin: 10/21/16 16:07 Dose: 200 mls/hr Insulin Human Lispro (Humalog Med) 0 units SC ACHS WAYNE PRN Reason: Protocol Last Admin: 10/21/16 12:17 Dose: Not Given Isosorbide Mononitrate (Imdur) 60 mg PO DAILY COUNTS INCLUDE 234 BEDS AT THE [facility] Last Admin: 10/21/16 09:54 Dose: Not Given Lactic Acid (Lac-Hydrin 12% Lotion (225 G)) 0 gm EXT BID COUNTS INCLUDE 234 BEDS AT THE [facility] Last Admin: 10/21/16 12:21 Dose: 1 applic Levalbuterol HCl (Xopenex) 1.25 mg IH [id number] PRN PRN Reason: Shortness of Breath Mupirocin (Bactroban Ointment) 0 gm TOP BID COUNTS INCLUDE 234 BEDS AT THE [facility] Nicotine (Nicoderm Cq) 1 patch TD DAILY COUNTS INCLUDE 234 BEDS AT THE [facility] Last Admin: 10/21/16 09:46 Dose: 1 patch Nystatin/Triamcinolone Acetonide (Nystatin/Triamcinolone Cream) 0 ea TOP BID COUNTS INCLUDE 234 BEDS AT THE [facility] Last Admin: 10/21/16 12:21 Dose: Not Given Pantoprazole Sodium (Protonix Inj) 40 mg IVP DAILY COUNTS INCLUDE 234 BEDS AT THE [facility] Last Admin: 10/21/16 09:44 Dose: 40 mg Sitagliptin Phosphate (Januvia) 50 mg PO DAILY COUNTS INCLUDE 234 BEDS AT THE [facility] Last Admin: 10/21/16 09:48 Dose: 50 mg Tiotropium Hamilton (Spiriva) 18 mcg IH DAILY COUNTS INCLUDE 234 BEDS AT THE [facility] Last Admin: 10/21/16 09:57 Dose: 18 mcg Valsartan (Diovan) 320 mg PO DAILY COUNTS INCLUDE 234 BEDS AT [facility] Last Admin: 10/21/16 09:54 Dose: Not Given Warfarin Sodium (Coumadin) 4 mg PO 1800 COUNTS INCLUDE 234 BEDS AT THE [facility] PRN Reason: Protocol - Labs Labs: 10/21/16 05:30 10/21/16 05:30 PT 29.8 Seconds (9.9-11.8) H 10/21/16 05:30 INR 2.76 (0.93-1.08) H 10/21/16 05:30 APTT 46.9 Seconds (23.7-30.8) H 10/21/16 05:30 Attending/Attestation - Attestation I have personally seen and examined this patient.: Yes I have fully participated in the care of the patient.: Yes I have reviewed all pertinent clinical information, including history, physical exam and plan: Yes Notes (Text): 10/21/16 17:13 71 yo female admitted with severe sepsis due to b/l cellulitis and L. toe osteomyelitis. Fluid resuscitated with resolution of lactic acidosis and improved mental status, [facility] of hemodynamic stability. cont abx. ok to downgrade to [facility]. ccm time 40 min
[2016-10-21] MEDS: Nystatin-Triamcinolone Cream(30 gm) TOP SCH ×2 (12:21→17:56)
[2016-10-21] MEDS: Ammonium Lactate 12% Lotion (225 g) EXT SCH ×2 (12:21→17:56)
--- NOTE | 2016-10-21 13:08 | CP.PCM.CON ---
<Khris Rowland - Last Filed: 10/21/16 13:05> History of Present Illness - History of Present Illness History of Present Illness: 71 year old female pt seen at bedside today, with attending Dr. Henriquez, concerning for left hallux ulceration and sepsis. PMH includes diabetes, COPD, CHF, anemia, CAD, renal failure and A-fib. Pt seen resting comfortably in bed at time of visit. Does complain of some tenderness to the toe today. Denies any acute events overnight. Pt peroprts decrease in tenderness and redness of left lower leg upon after admission to hospital. Patient denies chest pain, shortness of breath, headache, fever, chills, cough, nausea, vomiting, abdominal pain, or other complaints. Review of Systems - Review of Systems All systems: reviewed and no additional remarkable complaints except Past Patient History - Infectious Disease Hx of Infectious Diseases: None - Tetanus Immunizations Tetanus Immunization: Unknown - Past Medical History & Family History Past Medical History?: Yes - Past Social History Smoking Status: Heavy Smoker > 10 Cigarettes Daily - CARDIAC Hx Congestive Heart Failure: Yes Hx Hypertension: Yes - PULMONARY Hx Chronic Obstructive Pulmonary Disease (COPD): Yes - NEUROLOGICAL Hx Neurological Disorder: Yes Hx Seizures: Yes - HEENT Hx HEENT Problems: No - RENAL Hx Renal Failure: Yes - ENDOCRINE/METABOLIC Hx Diabetes Mellitus Type 2: Yes Hx Hypothyroidism: Yes - HEMATOLOGICAL/ONCOLOGICAL Hx Blood Disorders: Yes (sepsis) Hx Anemia: Yes (iron deficiency) Hx Cancer: Yes (left breast lumpectomy) Hx Chemotherapy: Yes - INTEGUMENTARY Hx Dermatological Problems: No - MUSCULOSKELETAL/RHEUMATOLOGICAL Hx Arthritis: Yes - GASTROINTESTINAL Hx Gastrointestinal Disorders: No - GENITOURINARY/GYNECOLOGICAL Hx Genitourinary Disorders: Yes (UTI) Hx Reproductive Disorders: No - PSYCHIATRIC Hx Psychophysiologic Disorder: Yes Hx Anxiety: Yes - SURGICAL HISTORY Hx Cardiac Catheterization: Yes Hx Joint Replacement: Yes Hx Orthopedic Surgery: Yes - ANESTHESIA Hx Anesthesia: Yes Hx Anesthesia Reactions: No Hx Malignant Hyperthermia: No Meds Allergies/Adverse Reactions: Allergies Allergy/AdvReac Type Severity Reaction Status Date / Time No Known Allergies Allergy Verified 10/01/16 18:19 - Medications Medications: Current Medications Acetaminophen (Tylenol 325mg Tab) 650 mg PO Q6H PRN PRN Reason: Fever >100.4 F Aspirin (Ecotrin) 81 mg PO 0800 [facility] Last Admin: 10/21/16 09:48 Dose: 81 mg Glimepiride (Amaryl) 4 mg PO ACBD [facility] Last Admin: 10/21/16 09:47 Dose: 4 mg Hydralazine HCl (Apresoline) 50 mg PO BID [facility] Last Admin: 10/21/16 09:54 Dose: Not Given Sodium Chloride (Sodium Chloride 0.9%) 1,000 mls @ 75 mls/hr IV .[id number] [facility] Last Admin: 10/20/16 23:00 Dose: 75 mls/hr Vancomycin HCl (Vancomycin 1gm) 1 gm in 250 mls @ 167 mls/hr IVPB Q12H [facility] PRN Reason: Protocol Last Admin: 10/21/16 09:45 Dose: 167 mls/hr Piperacillin Sod/Tazobactam Sod (Zosyn 3.375 In Ns 100ml) 100 mls @ 200 mls/hr IVPB Q6 [facility] PRN Reason: Protocol Stop: 10/28/16 00:01 Last Admin: 10/21/16 05:17 Dose: 200 mls/hr Insulin Human Lispro (Humalog Med) 0 units SC ACHS [facility] PRN Reason: Protocol Last Admin: 10/21/16 12:17 Dose: Not Given Isosorbide Mononitrate (Imdur) 60 mg PO DAILY [facility] Last Admin: 10/21/16 09:54 Dose: Not Given Lactic Acid (Lac-Hydrin 12% Lotion (225 G)) 0 gm EXT BID [facility] Last Admin: 10/21/16 12:21 Dose: 1 applic Levalbuterol HCl (Xopenex) 1.25 mg IH [id number] PRN PRN Reason: Shortness of Breath Nicotine (Nicoderm Cq) 1 patch TD DAILY [facility] Last Admin: 10/21/16 09:46 Dose: 1 patch Nystatin/Triamcinolone Acetonide (Nystatin/Triamcinolone Cream) 0 ea TOP BID [facility] Last Admin: 10/21/16 12:21 Dose: Not Given Pantoprazole Sodium (Protonix Inj) 40 mg IVP DAILY [facility] Last Admin: 10/21/16 09:44 Dose: 40 mg Sitagliptin Phosphate (Januvia) 50 mg PO DAILY [facility] Last Admin: 10/21/16 09:48 Dose: 50 mg Tiotropium [place] (Spiriva) 18 mcg IH DAILY [facility] Last Admin: 10/21/16 09:57 Dose: 18 mcg Valsartan (Diovan) 320 mg PO DAILY [facility] Last Admin: 10/21/16 09:54 Dose: Not Given Warfarin Sodium (Coumadin) 5 mg PO 1800 [facility] PRN Reason: Protocol Physical Exam - Constitutional Appears: Well, No Acute Distress - Extremities Exam Additional comments: Left foot exam: Vasc: DP and PT pulses non-palpable B/L secondary to edema, Distal anterio tibial artery flow is palpable. +2 pitting edema noted to left lower extremity. CFT < 4 seconds to digits 1-5 B/L. Skin temperature hot to cool from proximal to distal compared to contra-lateral limb. Derm: Unstageable ulceration with fibrotic eschar noted to medial aspect of left hallux measuring approximately 1.5 cm x 2. cm. Marita-wound area is erythematous macerated. No active drainage or exudate noted. No malodor, no fluctuance or other clinical signs of infection are noted at this time. Left lower leg non-blanchable erytema and callor extending from supra-malleolar level to tibial tuberosity circumferentially. Neuro: Gross sensation diminished b/l Ortho: Mild tenderness noted on palpation of dorsal hallux - Neurological Exam Neurological exam: Alert, Oriented x3 - Psychiatric Exam Psychiatric exam: Normal Affect, Normal Mood Results - Vital Signs Recent Vital Signs: Last Vital Signs Temp 98.5 F 10/21/16 06:00 Pulse 74 10/21/16 09:54 Resp 17 10/21/16 01:50 BP 94/51 L 10/21/16 09:54 Pulse Ox 93 L 10/21/16 01:50 - Labs Result Diagrams: 10/21/16 05:30 10/21/16 05:30 Labs: Laboratory Results - last 24 hr 10/20/16 10/20/16 10/21/16 21:57 23:45 00:35 WBC RBC Hgb Hct MCV MCH MCHC RDW Plt Count MPV Gran % Lymph % (Auto) [place] % (Auto) Eos % (Auto) Baso % (Auto) Gran # Lymph # [place] # Eos # Baso # PT INR APTT pO2 192 H VBG pH 7.37 VBG pCO2 50.0 VBG HCO3 28.9 H VBG Total CO2 30.4 H VBG O2 Sat (Calc) 99.7 H VBG Base Excess 3.1 H VBG Potassium 3.8 Sodium 137.0 Chloride 107.0 Glucose 182 H Lactate 0.8 FiO2 21.0 Potassium Carbon Dioxide Anion Gap BUN Creatinine Est GFR ( Amer) Est GFR (Non-Af Amer) POC Glucose (mg/dL) 200 H Random Glucose Lactic Acid 0.9 Calcium Phosphorus Magnesium Total Bilirubin AST ALT Alkaline Phosphatase Total Protein Albumin Globulin Albumin/Globulin Ratio Venous Blood Potassium 3.8 10/21/16 10/21/16 10/21/16 05:30 05:30 05:30 WBC 11.8 H D RBC 2.69 L Hgb 7.4 L Hct 24.9 L MCV 92.6 MCH 27.5 MCHC 29.7 L RDW 18.7 H Plt Count 227 MPV 9.8 Gran % 85.5 H Lymph % (Auto) 6.8 L [place] % (Auto) 6.2 H Eos % (Auto) 1.4 L Baso % (Auto) 0.1 Gran # 10.13 H Lymph # 0.8 L [place] # 0.7 H Eos # 0.2 Baso # 0.01 PT 29.8 H INR 2.76 H APTT 46.9 H pO2 VBG pH VBG pCO2 VBG HCO3 VBG Total CO2 VBG O2 Sat (Calc) VBG Base Excess VBG Potassium Sodium 140 Chloride 106 Glucose Lactate FiO2 Potassium 3.4 L Carbon Dioxide 25 Anion Gap 12 BUN 36 H Creatinine 1.0 Est GFR ( Amer) > 60 Est GFR (Non-Af Amer) 55 POC Glucose (mg/dL) Random Glucose 132 H Lactic Acid Calcium 7.9 L Phosphorus 3.9 Magnesium 1.6 L Total Bilirubin 0.6 AST 17 ALT 20 Alkaline Phosphatase 75 Total Protein 5.3 L Albumin 2.9 L Globulin 2.4 Albumin/Globulin Ratio 1.2 Venous Blood Potassium 10/21/16 10/21/16 05:30 07:57 WBC RBC Hgb Hct MCV MCH MCHC RDW Plt Count MPV Gran % Lymph % (Auto) [place] % (Auto) Eos % (Auto) Baso % (Auto) Gran # Lymph # [place] # Eos # Baso # PT INR APTT pO2 VBG pH VBG pCO2 VBG HCO3 VBG Total CO2 VBG O2 Sat (Calc) VBG Base Excess VBG Potassium Sodium Chloride Glucose Lactate FiO2 Potassium Carbon Dioxide Anion Gap BUN Creatinine Est GFR ( Amer) Est GFR (Non-Af Amer) POC Glucose (mg/dL) 155 H Random Glucose Lactic Acid 0.8 Calcium Phosphorus Magnesium Total Bilirubin AST ALT Alkaline Phosphatase Total Protein Albumin Globulin Albumin/Globulin Ratio Venous Blood Potassium Assessment & Plan - Assessment and Plan (Free Text) Assessment: 71 year old female with 1) Left hallux ulceration secondary to DM and PVD. 2) Left lower leg cellulits. Plan: Pt S&E at bedside with attending Dr. Henriquez present. Chart, labs and vitals reviewed; pt is afebrile, WBC= 11.8K. Left hallux cleansed with sterile water, dressed with xeroform and DSD. Left lower extremity dressed with Kelly. Prior radiographs (from 10/06/16) reviewed negative for osteomyelitis of left hallux Will continue to monitor left leg cellulits, limitation on decrease of symptoms will indicate alternative direct intervention. Continue IV abx per ID. Podiatry will continue to follow while inhouse. - Date & Time Date: 10/21/16 Time: 12:45 <Deric Henriquez - Last Filed: 10/22/16 11:34> Meds - Medications Medications: Current Medications Acetaminophen (Tylenol 325mg Tab) 650 mg PO Q6H PRN PRN Reason: Fever >100.4 F Last Admin: 10/21/16 16:29 Dose: 650 mg Aspirin (Ecotrin) 81 mg PO 0800 [facility] Last Admin: 10/22/16 08:43 Dose: 81 mg Clopidogrel Bisulfate (Plavix) 75 mg PO DAILY [facility] Last Admin: 10/22/16 10:13 Dose: Not Given Glimepiride (Amaryl) 4 mg PO ACBD [facility] Last Admin: 10/22/16 08:34 Dose: Not Given Guaifenesin (Robitussin) 200 mg PO Q4H PRN PRN Reason: Cough and congestion Last Admin: 10/21/16 23:42 Dose: 200 mg Hydralazine HCl (Apresoline) 50 mg PO BID [facility] Last Admin: 10/21/16 18:32 Dose: Not Given Piperacillin Sod/Tazobactam Sod (Zosyn 3.375 In Ns 100ml) 100 mls @ 200 mls/hr IVPB Q6 [facility] PRN Reason: Protocol Stop: 10/28/16 00:01 Last Admin: 10/22/16 06:01 Dose: 200 mls/hr Sodium Chloride (Sodium Chloride 0.9%) 1,000 mls @ 75 mls/hr IV .[id number] [facility] Stop: 10/22/16 17:49 Last Admin: 10/22/16 04:30 Dose: 75 mls/hr Insulin Human Lispro (Humalog Med) 0 units SC ACHS [facility] PRN Reason: Protocol Last Admin: 10/22/16 08:35 Dose: Not Given Isosorbide Mononitrate (Imdur) 60 mg PO DAILY [facility] Last Admin: 10/21/16 09:54 Dose: Not Given Lactic Acid (Lac-Hydrin 12% Lotion (225 G)) 0 gm EXT BID [facility] Last Admin: 10/22/16 10:08 Dose: 1 applic Levalbuterol HCl (Xopenex) 1.25 mg IH [id number] PRN PRN Reason: Shortness of Breath Mupirocin (Bactroban Ointment) 0 gm TOP BID [facility] Last Admin: 10/21/16 18:31 Dose: Not Given Nicotine (Nicoderm Cq) 1 patch TD DAILY [facility] Last Admin: 10/22/16 10:08 Dose: Not Given Nystatin/Triamcinolone Acetonide (Nystatin/Triamcinolone Cream) 0 ea TOP BID [facility] Last Admin: 10/22/16 10:07 Dose: 1 applic Pantoprazole Sodium (Protonix Inj) 40 mg IVP DAILY [facility] Last Admin: 10/22/16 10:05 Dose: 40 mg Sitagliptin Phosphate (Januvia) 50 mg PO DAILY [facility] Last Admin: 10/22/16 10:07 Dose: Not Given Tiotropium [place] (Spiriva) 18 mcg IH DAILY [facility] Last Admin: 10/22/16 10:05 Dose: 18 mcg Valsartan (Diovan) 320 mg PO DAILY [facility] Last Admin: 10/21/16 09:54 Dose: Not Given Warfarin Sodium (Coumadin) 4 mg PO 1800 [facility] PRN Reason: Protocol Last Admin: 10/21/16 17:54 Dose: 4 mg Results - Vital Signs Recent Vital Signs: Last Vital Signs Temp 97.5 F L 10/22/16 04:00 Pulse 85 10/22/16 11:30 Resp 17 10/22/16 06:00 BP 86/37 L 10/22/16 06:00 Pulse Ox 100 10/22/16 06:00 - Labs Result Diagrams: 10/22/16 04:57 10/22/16 04:57 Labs: Laboratory Results - last 24 hr 10/21/16 10/21/16 10/21/16 12:11 14:24 16:40 WBC RBC Hgb Hct MCV MCH MCHC RDW Plt Count MPV Gran % Lymph % (Auto) [place] % (Auto) Eos % (Auto) Baso % (Auto) Gran # Lymph # [place] # Eos # Baso # PT INR APTT pCO2 pO2 HCO3 ABG pH ABG Total CO2 ABG O2 Saturation ABG O2 Content ABG Base Excess ABG Hemoglobin ABG Carboxyhemoglobin POC ABG HHb (Measured) ABG Methemoglobin ABG O2 Capacity VBG pH VBG pCO2 VBG HCO3 VBG Total CO2 VBG O2 Sat (Calc) VBG Base Excess VBG Potassium Hgb O2 Saturation Glucose Lactate FiO2 Sodium Potassium Chloride Carbon Dioxide Anion Gap BUN Creatinine Est GFR ( Amer) Est GFR (Non-Af Amer) POC Glucose (mg/dL) 135 H 153 H Random Glucose Calcium Phosphorus Magnesium Total Bilirubin AST ALT Alkaline Phosphatase Troponin I Total Protein Albumin Globulin Albumin/Globulin Ratio Venous Blood Potassium Blood Type AB NEGATIVE Antibody Screen Negative Crossmatch See Detail BBK History Checked Patient has bt 10/22/16 10/22/16 10/22/16 04:57 04:57 04:57 WBC 11.2 H RBC 3.26 L Hgb 9.2 L Hct 29.9 L MCV 91.7 MCH 28.2 MCHC 30.8 L RDW 18.7 H Plt Count 254 MPV 9.7 Gran % 79.5 H Lymph % (Auto) 8.8 L [place] % (Auto) 8.1 H Eos % (Auto) 3.4 Baso % (Auto) 0.2 Gran # 8.87 H Lymph # 1.0 L [place] # 0.9 H Eos # 0.4 Baso # 0.02 PT 24.5 H INR 2.27 H APTT 45.1 H pCO2 pO2 HCO3 ABG pH ABG Total CO2 ABG O2 Saturation ABG O2 Content ABG Base Excess ABG Hemoglobin ABG Carboxyhemoglobin POC ABG HHb (Measured) ABG Methemoglobin ABG O2 Capacity VBG pH VBG pCO2 VBG HCO3 VBG Total CO2 VBG O2 Sat (Calc) VBG Base Excess VBG Potassium Hgb O2 Saturation Glucose Lactate FiO2 Sodium 141 Potassium 4.2 Chloride 105 Carbon Dioxide 26 Anion Gap 14 BUN 44 H Creatinine 1.3 Est GFR ( Amer) 49 Est GFR (Non-Af Amer) 41 POC Glucose (mg/dL) Random Glucose 67 L Calcium 8.7 Phosphorus 4.5 Magnesium 2.4 H Total Bilirubin 0.8 AST 17 ALT 24 Alkaline Phosphatase 88 Troponin I 0.37 H* D Total Protein 6.4 Albumin 3.5 Globulin 2.9 Albumin/Globulin Ratio 1.2 Venous Blood Potassium Blood Type Antibody Screen Crossmatch BBK History Checked 10/22/16 10/22/16 10:35 11:00 WBC RBC Hgb Hct MCV MCH MCHC RDW Plt Count MPV Gran % Lymph % (Auto) [place] % (Auto) Eos % (Auto) Baso % (Auto) Gran # Lymph # [place] # Eos # Baso # PT INR APTT pCO2 61 H pO2 27 L 123.0 H HCO3 25.0 ABG pH 7.22 L ABG Total CO2 26.9 ABG O2 Saturation 99.6 H ABG O2 Content 11.8 L ABG Base Excess -3.0 L ABG Hemoglobin 8.6 L ABG Carboxyhemoglobin 3.2 H POC ABG HHb (Measured) 0.4 ABG Methemoglobin 0.7 ABG O2 Capacity 11.8 L VBG pH 7.17 L* VBG pCO2 73.0 H* VBG HCO3 26.6 VBG Total CO2 28.8 H VBG O2 Sat (Calc) 54.9 VBG Base Excess -2.6 L VBG Potassium 4.7 Hgb O2 Saturation 95.6 Glucose 68 Lactate 0.7 FiO2 21.0 40.0 Sodium 153.0 H Potassium Chloride 98.0 Carbon Dioxide Anion Gap BUN Creatinine Est GFR ( Amer) Est GFR (Non-Af Amer) POC Glucose (mg/dL) Random Glucose Calcium Phosphorus Magnesium Total Bilirubin AST ALT Alkaline Phosphatase Troponin I Total Protein Albumin Globulin Albumin/Globulin Ratio Venous Blood Potassium 4.7 Blood Type Antibody Screen Crossmatch BBK History Checked Attending/Attestation - Attestation I have personally seen and examined this patient.: Yes I have fully participated in the care of the patient.: Yes I have reviewed all pertinent clinical information: Yes
--- NOTE | 2016-10-21 13:44 | CP.PCM.CON ---
History of Present Illness - History of Present Illness History of Present Illness: 71 year old female with PMH of obesity with BMI 39, CAD, GERD, arthritis, history of bilateral knee replacements, chronic CHF, COPD, DM, history of breast CA, History of Strep bovis bacteremia (2012), S/P Port-a-cath placement, history of Group G Strep bacteremia, history of E. coli UTI, history of left sided HCAP, S/P methicillin-resistant coagulase negative staph bacteremia, probably port infection S/P removal of the port was recently admitted in [facility] for infected diabetic ulcer on the left hallux with MRSA. She was treated with antibiotics. She comes back to [facility] after her daughter found her lethargic and difficult to arouse at the daughter's home. There was no note of convulsions, no trauma to the head, no known fall, no bowel or urinary incontinence, no vomiting. The patient does not recall being brought to the hospital. She is currently awake and coherent. She states she has some cough but no sputum production, has urinary frequency, no fever or chills, no headache or dizziness, no sore throat, no dysphagia, no chest pain, no SOB, no abdominal pain, no diarrhea. In the ED, she was noted to have leukocytosis. Infectious Diseases consult is requested to further evaluate and manage. Review of Systems - Review of Systems All systems: reviewed and no additional remarkable complaints except (as per HPI ) Past Patient History - Infectious Disease Hx of Infectious Diseases: None - Tetanus Immunizations Tetanus Immunization: Unknown - Past Medical History & Family History Past Medical History?: Yes - Past Social History Smoking Status: Heavy Smoker > 10 Cigarettes Daily - CARDIAC Hx Congestive Heart Failure: Yes Hx Hypertension: Yes - PULMONARY Hx Chronic Obstructive Pulmonary Disease (COPD): Yes - NEUROLOGICAL Hx Neurological Disorder: Yes Hx Seizures: Yes - HEENT Hx HEENT Problems: No - RENAL Hx Renal Failure: Yes - ENDOCRINE/METABOLIC Hx Diabetes Mellitus Type 2: Yes Hx Hypothyroidism: Yes - HEMATOLOGICAL/ONCOLOGICAL Hx Blood Disorders: Yes (sepsis) Hx Anemia: Yes (iron deficiency) Hx Cancer: Yes (left breast lumpectomy) Hx Chemotherapy: Yes - INTEGUMENTARY Hx Dermatological Problems: No - MUSCULOSKELETAL/RHEUMATOLOGICAL Hx Arthritis: Yes - GASTROINTESTINAL Hx Gastrointestinal Disorders: No - GENITOURINARY/GYNECOLOGICAL Hx Genitourinary Disorders: Yes (UTI) Hx Reproductive Disorders: No - PSYCHIATRIC Hx Psychophysiologic Disorder: Yes Hx Anxiety: Yes - SURGICAL HISTORY Hx Cardiac Catheterization: Yes Hx Joint Replacement: Yes Hx Orthopedic Surgery: Yes - ANESTHESIA Hx Anesthesia: Yes Hx Anesthesia Reactions: No Hx Malignant Hyperthermia: No Meds Allergies/Adverse Reactions: Allergies Allergy/AdvReac Type Severity Reaction Status Date / Time No Known Allergies Allergy Verified 10/01/16 18:19 - Medications Medications: Current Medications Acetaminophen (Tylenol 325mg Tab) 650 mg PO Q6H PRN PRN Reason: Fever >100.4 F Aspirin (Ecotrin) 81 mg PO 0800 [facility] Glimepiride (Amaryl) 4 mg PO ACBD [facility] Hydralazine HCl (Apresoline) 50 mg PO BID [facility] Sodium Chloride (Sodium Chloride 0.9%) 1,000 mls @ 75 mls/hr IV .[id number] [facility] Last Admin: 10/20/16 23:00 Dose: 75 mls/hr Vancomycin HCl (Vancomycin 1gm) 1 gm in 250 mls @ 167 mls/hr IVPB Q12H [facility] PRN Reason: Protocol Piperacillin Sod/Tazobactam Sod (Zosyn 3.375 In Ns 100ml) 100 mls @ 200 mls/hr IVPB Q6 [facility] PRN Reason: Protocol Stop: 10/28/16 00:01 Last Admin: 10/21/16 05:17 Dose: 200 mls/hr Insulin Human Lispro (Humalog Med) 0 units SC ACHS [facility] PRN Reason: Protocol Last Admin: 10/21/16 08:02 Dose: Not Given Isosorbide Mononitrate (Imdur) 60 mg PO DAILY [facility] Lactic Acid (Lac-Hydrin 12% Lotion (225 G)) 0 gm EXT BID [facility] Levalbuterol HCl (Xopenex) 1.25 mg IH [id number] PRN PRN Reason: Shortness of Breath Nicotine (Nicoderm Cq) 1 patch TD DAILY [facility] Nystatin/Triamcinolone Acetonide (Nystatin/Triamcinolone Cream) 0 ea TOP BID [facility] Pantoprazole Sodium (Protonix Inj) 40 mg IVP DAILY [facility] Sitagliptin Phosphate (Januvia) 50 mg PO DAILY [facility] Tiotropium [place] (Spiriva) 18 mcg IH DAILY [facility] Valsartan (Diovan) 320 mg PO DAILY [facility] Warfarin Sodium (Coumadin) 5 mg PO 1800 [facility] PRN Reason: Protocol Physical Exam - Constitutional Appears: Non-toxic, No Acute Distress - Head Exam Head Exam: NORMAL INSPECTION - ENT Exam ENT Exam: Mucous Membranes Moist - Neck Exam Neck exam: Negative for: Meningismus - Respiratory Exam Respiratory Exam: Decreased Breath Sounds - Cardiovascular Exam Cardiovascular Exam: +S1, +S2 - GI/Abdominal Exam GI & Abdominal Exam: Soft. absent: Tenderness - Extremities Exam Additional comments: left hallux with dry ulceration with mild erythema surround it Results - Vital Signs Recent Vital Signs: Last Vital Signs Temp 98.5 F 10/21/16 06:00 Pulse 69 10/21/16 06:55 Resp 17 10/21/16 01:50 BP 109/52 L 10/21/16 01:00 Pulse Ox 93 L 10/21/16 01:50 - Labs Result Diagrams: 10/21/16 05:30 10/21/16 05:30 Labs: Laboratory Results - last 24 hr 10/20/16 10/20/16 10/21/16 21:57 23:45 00:35 WBC RBC Hgb Hct MCV MCH MCHC RDW Plt Count MPV Gran % Lymph % (Auto) [place] % (Auto) Eos % (Auto) Baso % (Auto) Gran # Lymph # [place] # Eos # Baso # PT INR APTT pO2 192 H VBG pH 7.37 VBG pCO2 50.0 VBG HCO3 28.9 H VBG Total CO2 30.4 H VBG O2 Sat (Calc) 99.7 H VBG Base Excess 3.1 H VBG Potassium 3.8 Sodium 137.0 Chloride 107.0 Glucose 182 H Lactate 0.8 FiO2 21.0 Potassium Carbon Dioxide Anion Gap BUN Creatinine Est GFR ( Amer) Est GFR (Non-Af Amer) POC Glucose (mg/dL) 200 H Random Glucose Lactic Acid 0.9 Calcium Phosphorus Magnesium Total Bilirubin AST ALT Alkaline Phosphatase Total Protein Albumin Globulin Albumin/Globulin Ratio Venous Blood Potassium 3.8 10/21/16 10/21/16 10/21/16 05:30 05:30 05:30 WBC 11.8 H D RBC 2.69 L Hgb 7.4 L Hct 24.9 L MCV 92.6 MCH 27.5 MCHC 29.7 L RDW 18.7 H Plt Count 227 MPV 9.8 Gran % 85.5 H Lymph % (Auto) 6.8 L [place] % (Auto) 6.2 H Eos % (Auto) 1.4 L Baso % (Auto) 0.1 Gran # 10.13 H Lymph # 0.8 L [place] # 0.7 H Eos # 0.2 Baso # 0.01 PT 29.8 H INR 2.76 H APTT 46.9 H pO2 VBG pH VBG pCO2 VBG HCO3 VBG Total CO2 VBG O2 Sat (Calc) VBG Base Excess VBG Potassium Sodium 140 Chloride 106 Glucose Lactate FiO2 Potassium 3.4 L Carbon Dioxide 25 Anion Gap 12 BUN 36 H Creatinine 1.0 Est GFR ( Amer) > 60 Est GFR (Non-Af Amer) 55 POC Glucose (mg/dL) Random Glucose 132 H Lactic Acid Calcium 7.9 L Phosphorus 3.9 Magnesium 1.6 L Total Bilirubin 0.6 AST 17 ALT 20 Alkaline Phosphatase 75 Total Protein 5.3 L Albumin 2.9 L Globulin 2.4 Albumin/Globulin Ratio 1.2 Venous Blood Potassium 10/21/16 07:57 WBC RBC Hgb Hct MCV MCH MCHC RDW Plt Count MPV Gran % Lymph % (Auto) [place] % (Auto) Eos % (Auto) Baso % (Auto) Gran # Lymph # [place] # Eos # Baso # PT INR APTT pO2 VBG pH VBG pCO2 VBG HCO3 VBG Total CO2 VBG O2 Sat (Calc) VBG Base Excess VBG Potassium Sodium Chloride Glucose Lactate FiO2 Potassium Carbon Dioxide Anion Gap BUN Creatinine Est GFR ( Amer) Est GFR (Non-Af Amer) POC Glucose (mg/dL) 155 H Random Glucose Lactic Acid Calcium Phosphorus Magnesium Total Bilirubin AST ALT Alkaline Phosphatase Total Protein Albumin Globulin Albumin/Globulin Ratio Venous Blood Potassium Assessment & Plan - Assessment and Plan (Free Text) Plan: Assessment Systemic Inflammatory Response Syndrome, R/O sepsis from UTI history of infected diabetic ulceration of the left hallux associated with trauma with probable peripheral vascular disease, growing MRSA - no evidence of osteomyelitis on MRI - S/P arthrectomy and angioplasty of left sided lower extremity vasculature S/P Sepsis with acute hypoxic respiratory failure secondary to left-sided healthcare-associated pneumonia with possible gram positive cocci and/or gram negative bacilli, clinically improved and S/P treatment as well as sepsis from persistent methicillin-resistant coagulase negative staph bacteremia , probably port infection S/P removal of the port history of Group G Strep bacteremia history of E. coli UTI history of healthcare-associated pneumonia acute renal failure obesity with BMI 38 CAD GERD arthritis history of bilateral knee replacements chronic CHF COPD DM history of breast CA History of Strep bovis bacteremia (2012) S/P Port-a-cath placement Plan started patient on Vancomycin and Zosyn pending blood, urine cx, PCT; reviewed CXR which does not show infiltrates will monitor clinically follow up Podiatry evaluation of the left hallux
--- NOTE | 2016-10-21 18:15 | US ---
PROCEDURE: Lower extremity RAMON exam HISTORY: Peripheral vascular disease with pain and ulceration. Smoker. Diabetes. PHYSICIAN(S): Maldonado Barnett MD. FINDINGS: The resting RAMON's are mildly abnormal but are likely inaccurate due to calcification: Right, 0.79 and left, 0.75 The brachial systolic pressures are symmetric. The low thigh PVR waveforms are mildly to moderately blunted. This suggests aortoiliac disease. The calf PVR waveforms augment normally. There are significant gradients across both knees. This is consistent with bilateral distal SFA, popliteal, and/ or trifurcation disease IMPRESSION: 1. Mildly abnormal ABIs at rest. The ABIs may be inaccurate due to calcification. 2. Bilateral distal SFA, popliteal, and/or trifurcation disease. 3. Aortoiliac disease. 4. If clinically indicated, additional evaluation can be obtained through CTA runoff, MRA runoff, or conventional arteriogram
--- NOTE | 2016-10-21 18:21 | PN ---
DATE: 10/21/2016 SUBJECTIVE: The patient is a 71-year-old seen and examined, much more awake and alert today as compared to yesterday. No shortness of breath. She does have bilateral leg redness. No nausea, no vomiting, no diarrhea. Eating and tolerating. PHYSICAL EXAMINATION: VITAL SIGNS: The patient is afebrile, pulse is 74, respirations 18, blood pressure 94/51. LUNGS: Bilateral diffusely decreased breath sounds. HEART: S1 and S2 audible. ABDOMEN: Soft, obese, nontender, no rebound, no guarding. NEUROLOGIC: The patient is awake and alert, able to communicate. She has bilateral leg +2 edema. LABORATORY DATA: WBC is 11.8, hemoglobin 7.4, hematocrit 24.9, platelets 227. PT is 29.8. INR 2.76. Chemistries: Sodium 140, potassium 3.4, chloride 106, CO2 25, BUN 36, creatinine 1.0, blood sugar of 155, magnesium is 1.6. Her urine positive for nitrates and leukocyte. Urine positive for gram negative rods, colony count is more than 100,000. Bilateral leg Doppler pending. ASSESSMENT: 1. Bilateral leg cellulitis. 2. Escherichia coli urinary tract infection. 3. Hypertension. 4. Hyperlipidemia. 5. Coronary artery disease. 6. Noninsulin-dependent diabetes. 7. Chronic obstructive pulmonary disease. 8. Cardiac cirrhosis. 9. History of arteriovenous malformation and chronic small gastrointestinal bleed. PLAN: I will order for 1 pack RBCs and I will continue on current antibiotics, since the patient is eating and tolerating. We will discontinue her IV fluid and give her 4 mg of Coumadin today. Followup PT, INR, CBC, and CMP Edwige Kirby MD
--- NOTE | 2016-10-21 18:33 | US ---
HISTORY: Bilateral lower extremity venous ultrasound PHYSICIAN(S): Maldonado Barnett MD. TECHNIQUE: Duplex sonography and color-flow Doppler with graded compression were used to evaluate the deep venous systems of both lower extremities. FINDINGS: The exam is very limited by body habitus and edema. The tibial veins are not adequately seen. The visualized deep venous systems of both lower extremities are sonographically normal and compressible. Normal wave forms and augmentation are seen. There is no sonographic evidence for deep venous thrombosis in the visualized segments of both lower extremities. IMPRESSION: No sonographic evidence for deep venous thrombosis in the visualized segments of both lower extremities. Very limited study.
[2016-10-21] MEDS ORDERED: Oxycodone/Acetaminophen 10/325 mg Tab PO STA (23:29)
--- NOTE | 2016-10-21 23:31 | CP.PCM.PN ---
Subjective - Date & Time of Evaluation Date of Evaluation: 10/21/16 Time of Evaluation: 23:30 - Subjective Subjective: Patient was seen at bedside. She requested cough medicine. She also complained of pain in left big toe. She had debridement done earlier in the day. Also nurse requested to cosme page because it had timed out. Patient has no other complaints. Medical record was reviewed. This 71 year old white woman was admitted lethargy, sob , bilateral leg swelling and tenderness. Has PMH of COPD, CMP , morbid obesity, CAD, S/P cardiac cath, CKD, NIDDM, anemia, GI AVM, cardiac cirrhosis. Objective - Vital Signs/Intake and Output Vital Signs (last 24 hours): Temp Pulse Resp BP Pulse Ox 98.3 F 72 20 94/40 L 93 L 10/21/16 20:00 10/21/16 22:55 10/21/16 20:00 10/21/16 20:00 10/21/16 01:50 Intake and Output: 10/21/16 10/22/16 18:59 06:59 Intake Total 2125 325 Balance 2125 325 - Medications Medications: Current Medications Acetaminophen (Tylenol 325mg Tab) 650 mg PO Q6H PRN PRN Reason: Fever >100.4 F Last Admin: 10/21/16 16:29 Dose: 650 mg Aspirin (Ecotrin) 81 mg PO 0800 [facility] Last Admin: 10/21/16 09:48 Dose: 81 mg Glimepiride (Amaryl) 4 mg PO ACBD [facility] Last Admin: 10/21/16 16:29 Dose: 4 mg Hydralazine HCl (Apresoline) 50 mg PO BID [facility] Last Admin: 10/21/16 18:32 Dose: Not Given Vancomycin HCl (Vancomycin 1gm) 1 gm in 250 mls @ 167 mls/hr IVPB Q12H [facility] PRN Reason: Protocol Last Admin: 10/21/16 22:27 Dose: 167 mls/hr Piperacillin Sod/Tazobactam Sod (Zosyn 3.375 In Ns 100ml) 100 mls @ 200 mls/hr IVPB Q6 [facility] PRN Reason: Protocol Stop: 10/28/16 00:01 Last Admin: 10/21/16 21:57 Dose: 200 mls/hr Insulin Human Lispro (Humalog Med) 0 units SC ACHS [facility] PRN Reason: Protocol Last Admin: 10/21/16 22:50 Dose: Not Given Isosorbide Mononitrate (Imdur) 60 mg PO DAILY [facility] Last Admin: 10/21/16 09:54 Dose: Not Given Lactic Acid (Lac-Hydrin 12% Lotion (225 G)) 0 gm EXT BID [facility] Last Admin: 10/21/16 17:56 Dose: 1 applic Levalbuterol HCl (Xopenex) 1.25 mg IH [id number] PRN PRN Reason: Shortness of Breath Mupirocin (Bactroban Ointment) 0 gm TOP BID [facility] Last Admin: 10/21/16 18:31 Dose: Not Given Nicotine (Nicoderm Cq) 1 patch TD DAILY [facility] Last Admin: 10/21/16 09:46 Dose: 1 patch Nystatin/Triamcinolone Acetonide (Nystatin/Triamcinolone Cream) 0 ea TOP BID [facility] Last Admin: 10/21/16 17:56 Dose: 1 applic Pantoprazole Sodium (Protonix Inj) 40 mg IVP DAILY [facility] Last Admin: 10/21/16 09:44 Dose: 40 mg Sitagliptin Phosphate (Januvia) 50 mg PO DAILY [facility] Last Admin: 10/21/16 09:48 Dose: 50 mg Tiotropium [place] (Spiriva) 18 mcg IH DAILY [facility] Last Admin: 10/21/16 09:57 Dose: 18 mcg Valsartan (Diovan) 320 mg PO DAILY [facility] Last Admin: 10/21/16 09:54 Dose: Not Given Warfarin Sodium (Coumadin) 4 mg PO 1800 [facility] PRN Reason: Protocol Last Admin: 10/21/16 17:54 Dose: 4 mg - Labs Labs: 10/21/16 05:30 10/21/16 05:30 PT 29.8 Seconds (9.9-11.8) H 10/21/16 05:30 INR 2.76 (0.93-1.08) H 10/21/16 05:30 APTT 46.9 Seconds (23.7-30.8) H 10/21/16 05:30 Micro Results 10/20/16 17:20 Blood Blood Culture - Preliminary NO GROWTH AFTER 24 HOURS 10/20/16 17:50 Blood Blood Culture - Preliminary NO GROWTH AFTER 24 HOURS 10/20/16 18:15 Urine Urine Culture - Preliminary Gram Negative Sameer 10/20/16 17:50 Toe Gram Stain - Final Most Recent Lab Values WBC 11.8 10^3/ul (4.5-11.0) H D 10/21/16 05:30 RBC 2.69 10^6/uL (3.5-6.1) L 10/21/16 05:30 Hgb 7.4 gm/dL (12.0-16.0) L 10/21/16 05:30 Hct 24.9 % (36.0-48.0) L 10/21/16 05:30 MCV 92.6 fL (80.0-105.0) 10/21/16 05:30 MCH 27.5 pg (25.0-35.0) 10/21/16 05:30 MCHC 29.7 g/dl (31.0-37.0) L 10/21/16 05:30 RDW 18.7 % (11.5-14.5) H 10/21/16 05:30 Plt Count 227 10^3/uL (120.0-450.0) 10/21/16 05:30 MPV 9.8 fl (7.0-11.0) 10/21/16 05:30 Gran % 85.5 % (50.0-68.0) H 10/21/16 05:30 Lymph % (Auto) 6.8 % (22.0-35.0) L 10/21/16 05:30 [place] % (Auto) 6.2 % (1.0-6.0) H 10/21/16 05:30 Eos % (Auto) 1.4 % (1.5-5.0) L 10/21/16 05:30 Baso % (Auto) 0.1 % (0.0-3.0) 10/21/16 05:30 Gran # 10.13 (1.4-6.5) H 10/21/16 05:30 Lymph # 0.8 (1.2-3.4) L 10/21/16 05:30 [place] # 0.7 (0.1-0.6) H 10/21/16 05:30 Eos # 0.2 (0.0-0.7) 10/21/16 05:30 Baso # 0.01 K/mm3 (0.0-2.0) 10/21/16 05:30 ESR 54 mm/hr (0.0-20.0) H 10/20/16 17:50 PT 29.8 Seconds (9.9-11.8) H 10/21/16 05:30 INR 2.76 (0.93-1.08) H 10/21/16 05:30 APTT 46.9 Seconds (23.7-30.8) H 10/21/16 05:30 pO2 192 mm/Hg (30-55) H 10/20/16 21:57 VBG pH 7.37 (7.32-7.43) 10/20/16 21:57 VBG pCO2 50.0 (40-60) 10/20/16 21:57 VBG HCO3 28.9 mmol/l (21-28) H 10/20/16 21:57 VBG Total CO2 30.4 mmol.L (22-28) H 10/20/16 21:57 VBG O2 Sat (Calc) 99.7 % (40-65) H 10/20/16 21:57 VBG Base Excess 3.1 mmol/L (0.0-2.0) H 10/20/16 21:57 VBG Potassium 3.8 mmol/L (3.6-5.2) 10/20/16 21:57 Sodium 137.0 mmol/L (132-148) 10/20/16 21:57 Chloride 107.0 mmol/L (98-107) 10/20/16 21:57 Glucose 182 mg/dl (65-105) H 10/20/16 21:57 Lactate 0.8 mmol/L (0.7-2.1) 10/20/16 21:57 FiO2 21.0 % 10/20/16 21:57 Sodium 140 mmol/L (132-148) 10/21/16 05:30 Potassium 3.4 mmol/L (3.6-5.0) L 10/21/16 05:30 Chloride 106 mmol/L (95-110) 10/21/16 05:30 Carbon Dioxide 25 mmol/L (21-33) 10/21/16 05:30 Anion Gap 12 (10-20) 10/21/16 05:30 BUN 36 mg/dL (7-21) H 10/21/16 05:30 Creatinine 1.0 mg/dL (0.5-1.4) 10/21/16 05:30 Est GFR ( Amer) > 60 10/21/16 05:30 Est GFR (Non-Af Amer) 55 10/21/16 05:30 POC Glucose (mg/dL) 153 mg/dL (65-110) H 10/21/16 16:40 Random Glucose 132 mg/dL (70-110) H 10/21/16 05:30 Lactic Acid 0.8 mmol/L (0.7-2.1) 10/21/16 05:30 Calcium 7.9 mg/dL (8.4-10.5) L 10/21/16 05:30 Phosphorus 3.9 mg/dL (2.5-4.5) 10/21/16 05:30 Magnesium 1.6 mg/dL (1.7-2.2) L 10/21/16 05:30 Total Bilirubin 0.6 mg/dL (0.2-1.3) 10/21/16 05:30 AST 17 U/L (15-39) 10/21/16 05:30 ALT 20 U/L (7-56) 10/21/16 05:30 Alkaline Phosphatase 75 U/L (38-133) 10/21/16 05:30 Total Protein 5.3 g/dL (5.8-8.3) L 10/21/16 05:30 Albumin 2.9 g/dL (3.0-4.8) L 10/21/16 05:30 Globulin 2.4 gm/dL 10/21/16 05:30 Albumin/Globulin Ratio 1.2 (1.1-1.8) 10/21/16 05:30 Procalcitonin 4.68 NG/ML (0.19-0.49) H 10/20/16 16:58 Venous Blood Potassium 3.8 mmol/L (3.6-5.2) 10/20/16 21:57 Urine Color Yellow (YELLOW) 10/20/16 18:15 Urine Appearance Sl cloudy (CLEAR) 10/20/16 18:15 Urine pH 6.0 (4.7-8.0) 10/20/16 18:15 Ur Specific [place] 1.025 (1.005-1.035) 10/20/16 18:15 Urine Protein 30 mg/dL (<30 mg/dL) H 10/20/16 18:15 Urine Glucose (UA) Negative mg/dL (NEGATIVE) 10/20/16 18:15 Urine Ketones Negative mg/dL (NEGATIVE) 10/20/16 18:15 Urine Blood Large (NEGATIVE) H 10/20/16 18:15 Urine Nitrate Positive (NEGATIVE) H 10/20/16 18:15 Urine Bilirubin Negative (NEGATIVE) 10/20/16 18:15 Urine Urobilinogen 0.2 E.U./dL (<1 E.U./dL) 10/20/16 18:15 Ur Leukocyte Esterase Small Geetha/uL (NEGATIVE) H 10/20/16 18:15 Urine RBC 25 - 30 /hpf (0-2) 10/20/16 18:15 Urine WBC 5 - 10 /hpf (0-6) 10/20/16 18:15 Ur Epithelial Cells 4 - 5 /hpf (0-5) 10/20/16 18:15 Urine Bacteria Many (NEG) 10/20/16 18:15 Blood Type AB NEGATIVE 10/21/16 14:24 Antibody Screen Negative 10/21/16 14:24 Crossmatch See Detail 10/21/16 14:24 BBK History Checked Patient has bt 10/21/16 14:24 - Constitutional Appears: Well, No Acute Distress - Head Exam Head Exam: ATRAUMATIC, NORMAL INSPECTION, NORMOCEPHALIC - Eye Exam Eye Exam: Normal appearance - ENT Exam ENT Exam: Normal External Ear Exam - Neck Exam Neck Exam: Normal Inspection - Respiratory Exam Respiratory Exam: Clear to Ausculation Bilateral, NORMAL BREATHING PATTERN. absent: Accessory Muscle Use, Chest Wall Tenderness, Rales, Rhonchi, Wheezes, Respiratory Distress, Stridor - Cardiovascular Exam Cardiovascular Exam: absent: JVD - GI/Abdominal Exam GI & Abdominal Exam: absent: Distended - Rectal Exam Rectal Exam: Deferred - Exam Additional comments: Deferred. - Extremities Exam Additional comments: Left foot dressing clean and dry. - Back Exam Back Exam: NORMAL INSPECTION - Neurological Exam Neurological Exam: Alert, Oriented x3 - Psychiatric Exam Psychiatric exam: Normal Affect, Normal Mood - Skin Skin Exam: Normal Color Assessment and Plan - Assessment and Plan (Free Text) Assessment: Cough. Left foot pain. Hypokalemia. Obesity. NIDDM. CKD. Anemia. CMP. CAD. GI AVM. Plan: Robitussin PO as ordered. K Palmer as ordered. Percocet 10+325 PO stat. Continue present management.
[2016-10-21] MEDS: guaiFENesin 200 mg/10 ml Syrup UD PO PRN (23:42)
[2016-10-22] MEDS: Piperacillin/Tazobact 3.375 gm 100 ML IVPB SCH ×3 (00:59→12:11)
[2016-10-22] MEDS ORDERED: Sodium Chloride 0.9% 500 ML IV STA (03:55)
--- NOTE | 2016-10-22 04:01 | CP.PCM.PN ---
Subjective - Date & Time of Evaluation Date of Evaluation: 10/22/16 Time of Evaluation: 03:57 - Subjective Subjective: Patient was seen at bedside because her blood pressure was low. 79/40, 67/min,T:97.6*F, RR 16/min, pulse ox : 92 % on 2 L/min. She denies any chest pain, sob, nausea, sweating , palpitations. No rectal bleeding, no hemetemesis, no hematuria. She is somewhat confused. 71 year old white woman was admitted lethargy, sob , bilateral leg swelling and tenderness. PMH:NIDDM,COPD, CAD, CMP , morbid obesity, S/P cardiac cath, CKD, anemia, GI AVM, cardiac cirrhosis. Objective - Vital Signs/Intake and Output Vital Signs (last 24 hours): Temp Pulse Resp BP Pulse Ox 98.3 F 76 20 94/40 L 93 L 10/21/16 20:00 10/22/16 02:00 10/21/16 20:00 10/21/16 20:00 10/21/16 01:50 Intake and Output: 10/21/16 10/22/16 18:59 06:59 Intake Total 2125 325 Balance 2125 325 - Medications Medications: Current Medications Acetaminophen (Tylenol 325mg Tab) 650 mg PO Q6H PRN PRN Reason: Fever >100.4 F Last Admin: 10/21/16 16:29 Dose: 650 mg Aspirin (Ecotrin) 81 mg PO 0800 [facility] Last Admin: 10/21/16 09:48 Dose: 81 mg Glimepiride (Amaryl) 4 mg PO ACBD [facility] Last Admin: 10/21/16 16:29 Dose: 4 mg Guaifenesin (Robitussin) 200 mg PO Q4H PRN PRN Reason: Cough and congestion Last Admin: 10/21/16 23:42 Dose: 200 mg Hydralazine HCl (Apresoline) 50 mg PO BID [facility] Last Admin: 10/21/16 18:32 Dose: Not Given Vancomycin HCl (Vancomycin 1gm) 1 gm in 250 mls @ 167 mls/hr IVPB Q12H [facility] PRN Reason: Protocol Last Admin: 10/21/16 22:27 Dose: 167 mls/hr Piperacillin Sod/Tazobactam Sod (Zosyn 3.375 In Ns 100ml) 100 mls @ 200 mls/hr IVPB Q6 [facility] PRN Reason: Protocol Stop: 10/28/16 00:01 Last Admin: 10/22/16 00:59 Dose: 200 mls/hr Sodium Chloride (Sodium Chloride 0.9%) 500 mls @ 999 mls/hr IV .Q31M STA Stop: 10/22/16 04:25 Insulin Human Lispro (Humalog Med) 0 units SC ACHS [facility] PRN Reason: Protocol Last Admin: 10/21/16 22:50 Dose: Not Given Isosorbide Mononitrate (Imdur) 60 mg PO DAILY [facility] Last Admin: 10/21/16 09:54 Dose: Not Given Lactic Acid (Lac-Hydrin 12% Lotion (225 G)) 0 gm EXT BID [facility] Last Admin: 10/21/16 17:56 Dose: 1 applic Levalbuterol HCl (Xopenex) 1.25 mg IH [id number] PRN PRN Reason: Shortness of Breath Mupirocin (Bactroban Ointment) 0 gm TOP BID [facility] Last Admin: 10/21/16 18:31 Dose: Not Given Nicotine (Nicoderm Cq) 1 patch TD DAILY [facility] Last Admin: 10/21/16 09:46 Dose: 1 patch Nystatin/Triamcinolone Acetonide (Nystatin/Triamcinolone Cream) 0 ea TOP BID [facility] Last Admin: 10/21/16 17:56 Dose: 1 applic Pantoprazole Sodium (Protonix Inj) 40 mg IVP DAILY [facility] Last Admin: 10/21/16 09:44 Dose: 40 mg Sitagliptin Phosphate (Januvia) 50 mg PO DAILY [facility] Last Admin: 10/21/16 09:48 Dose: 50 mg Tiotropium [place] (Spiriva) 18 mcg IH DAILY [facility] Last Admin: 10/21/16 09:57 Dose: 18 mcg Valsartan (Diovan) 320 mg PO DAILY [facility] Last Admin: 10/21/16 09:54 Dose: Not Given Warfarin Sodium (Coumadin) 4 mg PO 1800 [facility] PRN Reason: Protocol Last Admin: 10/21/16 17:54 Dose: 4 mg - Labs Labs: 10/21/16 05:30 10/21/16 05:30 PT 29.8 Seconds (9.9-11.8) H 10/21/16 05:30 INR 2.76 (0.93-1.08) H 10/21/16 05:30 APTT 46.9 Seconds (23.7-30.8) H 10/21/16 05:30 Laboratory Last Values WBC 11.8 10^3/ul (4.5-11.0) H D 10/21/16 05:30 RBC 2.69 10^6/uL (3.5-6.1) L 10/21/16 05:30 Hgb 7.4 gm/dL (12.0-16.0) L 10/21/16 05:30 Hct 24.9 % (36.0-48.0) L 10/21/16 05:30 MCV 92.6 fL (80.0-105.0) 10/21/16 05:30 MCH 27.5 pg (25.0-35.0) 10/21/16 05:30 MCHC 29.7 g/dl (31.0-37.0) L 10/21/16 05:30 RDW 18.7 % (11.5-14.5) H 10/21/16 05:30 Plt Count 227 10^3/uL (120.0-450.0) 10/21/16 05:30 MPV 9.8 fl (7.0-11.0) 10/21/16 05:30 Gran % 85.5 % (50.0-68.0) H 10/21/16 05:30 Lymph % (Auto) 6.8 % (22.0-35.0) L 10/21/16 05:30 [place] % (Auto) 6.2 % (1.0-6.0) H 10/21/16 05:30 Eos % (Auto) 1.4 % (1.5-5.0) L 10/21/16 05:30 Baso % (Auto) 0.1 % (0.0-3.0) 10/21/16 05:30 Gran # 10.13 (1.4-6.5) H 10/21/16 05:30 Lymph # 0.8 (1.2-3.4) L 10/21/16 05:30 [place] # 0.7 (0.1-0.6) H 10/21/16 05:30 Eos # 0.2 (0.0-0.7) 10/21/16 05:30 Baso # 0.01 K/mm3 (0.0-2.0) 10/21/16 05:30 ESR 54 mm/hr (0.0-20.0) H 10/20/16 17:50 PT 29.8 Seconds (9.9-11.8) H 10/21/16 05:30 INR 2.76 (0.93-1.08) H 10/21/16 05:30 APTT 46.9 Seconds (23.7-30.8) H 10/21/16 05:30 pO2 192 mm/Hg (30-55) H 10/20/16 21:57 VBG pH 7.37 (7.32-7.43) 10/20/16 21:57 VBG pCO2 50.0 (40-60) 10/20/16 21:57 VBG HCO3 28.9 mmol/l (21-28) H 10/20/16 21:57 VBG Total CO2 30.4 mmol.L (22-28) H 10/20/16 21:57 VBG O2 Sat (Calc) 99.7 % (40-65) H 10/20/16 21:57 VBG Base Excess 3.1 mmol/L (0.0-2.0) H 10/20/16 21:57 VBG Potassium 3.8 mmol/L (3.6-5.2) 10/20/16 21:57 Sodium 137.0 mmol/L (132-148) 10/20/16 21:57 Chloride 107.0 mmol/L (98-107) 10/20/16 21:57 Glucose 182 mg/dl (65-105) H 10/20/16 21:57 Lactate 0.8 mmol/L (0.7-2.1) 10/20/16 21:57 FiO2 21.0 % 10/20/16 21:57 Sodium 140 mmol/L (132-148) 10/21/16 05:30 Potassium 3.4 mmol/L (3.6-5.0) L 10/21/16 05:30 Chloride 106 mmol/L (95-110) 10/21/16 05:30 Carbon Dioxide 25 mmol/L (21-33) 10/21/16 05:30 Anion Gap 12 (10-20) 10/21/16 05:30 BUN 36 mg/dL (7-21) H 10/21/16 05:30 Creatinine 1.0 mg/dL (0.5-1.4) 10/21/16 05:30 Est GFR ( Amer) > 60 10/21/16 05:30 Est GFR (Non-Af Amer) 55 10/21/16 05:30 POC Glucose (mg/dL) 153 mg/dL (65-110) H 10/21/16 16:40 Random Glucose 132 mg/dL (70-110) H 10/21/16 05:30 Lactic Acid 0.8 mmol/L (0.7-2.1) 10/21/16 05:30 Calcium 7.9 mg/dL (8.4-10.5) L 10/21/16 05:30 Phosphorus 3.9 mg/dL (2.5-4.5) 10/21/16 05:30 Magnesium 1.6 mg/dL (1.7-2.2) L 10/21/16 05:30 Total Bilirubin 0.6 mg/dL (0.2-1.3) 10/21/16 05:30 AST 17 U/L (15-39) 10/21/16 05:30 ALT 20 U/L (7-56) 10/21/16 05:30 Alkaline Phosphatase 75 U/L (38-133) 10/21/16 05:30 Total Protein 5.3 g/dL (5.8-8.3) L 10/21/16 05:30 Albumin 2.9 g/dL (3.0-4.8) L 10/21/16 05:30 Globulin 2.4 gm/dL 10/21/16 05:30 Albumin/Globulin Ratio 1.2 (1.1-1.8) 10/21/16 05:30 Procalcitonin 4.68 NG/ML (0.19-0.49) H 10/20/16 16:58 Venous Blood Potassium 3.8 mmol/L (3.6-5.2) 10/20/16 21:57 Urine Color Yellow (YELLOW) 10/20/16 18:15 Urine Appearance Sl cloudy (CLEAR) 10/20/16 18:15 Urine pH 6.0 (4.7-8.0) 10/20/16 18:15 Ur Specific [place] 1.025 (1.005-1.035) 10/20/16 18:15 Urine Protein 30 mg/dL (<30 mg/dL) H 10/20/16 18:15 Urine Glucose (UA) Negative mg/dL (NEGATIVE) 10/20/16 18:15 Urine Ketones Negative mg/dL (NEGATIVE) 10/20/16 18:15 Urine Blood Large (NEGATIVE) H 10/20/16 18:15 Urine Nitrate Positive (NEGATIVE) H 10/20/16 18:15 Urine Bilirubin Negative (NEGATIVE) 10/20/16 18:15 Urine Urobilinogen 0.2 E.U./dL (<1 E.U./dL) 10/20/16 18:15 Ur Leukocyte Esterase Small [place]eth[place]/uL (NEGATIVE) H 10/20/16 18:15 Urine RBC 25 - 30 /hpf (0-2) 10/20/16 18:15 Urine WBC 5 - 10 /hpf (0-6) 10/20/16 18:15 Ur Epithelial Cells 4 - 5 /hpf (0-5) 10/20/16 18:15 Urine Bacteria Many (NEG) 10/20/16 18:15 Blood Type AB NEGATIVE 10/21/16 14:24 Antibody Screen Negative 10/21/16 14:24 Crossmatch See Detail 10/21/16 14:24 BBK History Checked Patient has bt 10/21/16 14:24 - Constitutional Appears: Well, No Acute Distress - Head Exam Head Exam: ATRAUMATIC, NORMAL INSPECTION, NORMOCEPHALIC - Eye Exam Eye Exam: Normal appearance - ENT Exam ENT Exam: Mucous Membranes Dry - Neck Exam Neck Exam: Normal Inspection - Respiratory Exam Respiratory Exam: Clear to Ausculation Bilateral, NORMAL BREATHING PATTERN. absent: Rales, Rhonchi, Wheezes, Respiratory Distress, Stridor - Cardiovascular Exam Cardiovascular Exam: REGULAR RHYTHM, +S1 (Normal.), +S2 (Normal.). absent: JVD - GI/Abdominal Exam GI & Abdominal Exam: Normal Bowel Sounds. absent: Distended - Rectal Exam Rectal Exam: Deferred - Exam Additional comments: Deferred. - Extremities Exam Extremities Exam: Normal Inspection - Back Exam Back Exam: NORMAL INSPECTION - Neurological Exam Neurological Exam: Altered, Awake - Psychiatric Exam Psychiatric exam: Normal Affect, Normal Mood - Skin Skin Exam: Dry Assessment and Plan - Assessment and Plan (Free Text) Assessment: Hypotension.R/O hypovolemia. R/O sepsis. R/O cardiac event. HTN. DM. Obesity. CAD. Anemia. CKD. Anemia. Coagulopathy. Hypomagnesemia. Plan: Normal saline bolus as ordered. Follow it by normal saline at 75 cc / hr. CBC,CMP, troponin, mag, phos ,PT/INR stat. Hold Diovan, Imdur , Apresoline. Continue present management. Will notify PMD in AM.
[2016-10-22] MEDS ORDERED: Sodium Chloride 0.9% 1,000 ML IV SCH (04:30)
[2016-10-22 05:06] LABS: BASO # 0.02 K/mm3 (0.0-2.0); BASO % 0.2 % (0.0-3.0); EOS # 0.4 (0.0-0.7); EOS % 3.4 % (1.5-5.0); GRAN # 8.87 (1.4-6.5); GRAN % 79.5 % (50.0-68.0); HEMOGLOBIN 9.2 gm/dL (12.0-16.0); LYMPH % 8.8 % (22.0-35.0); MEAN CELL VOLUME 91.7 fL (80.0-105.0); MEAN CORPUSCULAR HEMOGLOBIN 28.2 pg (25.0-35.0); MEAN CORPUSCULAR HGB CONC 30.8 g/dl (31.0-37.0); MEAN PLATELET VOLUME 9.7 fl (7.0-11.0); MONO # 0.9 (0.1-0.6); MONO % 8.1 % (1.0-6.0); PLATELET COUNT 254 10^3/uL (120.0-450.0); RBC 3.26 10^6/uL (3.5-6.1); RED CELL DISTRIBUTION WIDTH 18.7 % (11.5-14.5); WHITE BLOOD COUNT 11.2 10^3/ul (4.5-11.0)
[2016-10-22 05:12] LABS: ALB/GLOB RATIO 1.2 (1.1-1.8); ALBUMIN 3.5 g/dL (3.0-4.8); CALCIUM 8.7 mg/dL (8.4-10.5); MAGNESIUM 2.4 mg/dL (1.7-2.2)
[2016-10-22 05:15] LABS: INR 2.27 (0.93-1.08); PARTIAL THROMBOPLASTIN TIME 45.1 Seconds (23.7-30.8); PROTHROMBIN TIME 24.5 Seconds (9.9-11.8)
[2016-10-22 06:04] LABS: TROPONIN I 0.37 ng/mL
[2016-10-22] MEDS: Insulin Lispro (humaLOG) MEDIUM Coverage SC SCH ×4 (08:35→23:15)
[2016-10-22] MEDS ORDERED: Sodium Chloride 0.9% 1,000 ML IV STA (09:36)
[2016-10-22] MEDS: Tiotropium 18 mcg Cap For Inhalation IH SCH (10:05)
[2016-10-22] MEDS: Nystatin-Triamcinolone Cream(30 gm) TOP SCH (10:07)
[2016-10-22] MEDS: Ammonium Lactate 12% Lotion (225 g) EXT SCH (10:08)
[2016-10-22 10:39] LABS: VENOUS BLOOD GAS BASE EXCESS -2.6 mmol/L (0.0-2.0); VENOUS BLOOD GAS PO2 27 mm/Hg (30-55)
--- NOTE | 2016-10-22 10:39 | CP.PCM.PN ---
<Khris Rowland - Last Filed: 10/22/16 12:25> Subjective - Date & Time of Evaluation Date of Evaluation: 10/22/16 Time of Evaluation: 11:40 - Subjective Subjective: 71 year old female pt seen at bedside today concerning for left hallux ulceration and leg cellulits. Pt sleeping comfortably in bed at time of visit, not easily rousable. largely lethatgic. Continues to complain of tenderness to the toe today, manipulation of entire left lower extremity illicits mild pain. Patient denies chest pain, shortness of breath, headache, fever, chills, cough, nausea, vomiting, abdominal pain, or other complaints Objective - Vital Signs/Intake and Output Vital Signs (last 24 hours): Temp Pulse Resp BP Pulse Ox 97.5 F L 71 17 86/37 L 100 10/22/16 04:00 10/22/16 09:08 10/22/16 06:00 10/22/16 06:00 10/22/16 06:00 Intake and Output: 10/22/16 10/22/16 06:59 18:59 Intake Total 1975 Output Total 500 Balance 1475 - Medications Medications: Current Medications Acetaminophen (Tylenol 325mg Tab) 650 mg PO Q6H PRN PRN Reason: Fever >100.4 F Last Admin: 10/21/16 16:29 Dose: 650 mg Aspirin (Ecotrin) 81 mg PO 0800 ON LICENSE OF [facility] Last Admin: 10/22/16 08:43 Dose: 81 mg Clopidogrel Bisulfate (Plavix) 75 mg PO DAILY ON LICENSE OF [facility] Last Admin: 10/22/16 10:13 Dose: Not Given Glimepiride (Amaryl) 4 mg PO ACBD ON LICENSE OF [facility] Last Admin: 10/22/16 08:34 Dose: Not Given Guaifenesin (Robitussin) 200 mg PO Q4H PRN PRN Reason: Cough and congestion Last Admin: 10/21/16 23:42 Dose: 200 mg Hydralazine HCl (Apresoline) 50 mg PO BID ON LICENSE OF [facility] Last Admin: 10/21/16 18:32 Dose: Not Given Piperacillin Sod/Tazobactam Sod (Zosyn 3.375 In Ns 100ml) 100 mls @ 200 mls/hr IVPB Q6 ON LICENSE OF [facility] PRN Reason: Protocol Stop: 10/28/16 00:01 Last Admin: 10/22/16 06:01 Dose: 200 mls/hr Sodium Chloride (Sodium Chloride 0.9%) 1,000 mls @ 75 mls/hr IV .[id number] [facility] Stop: 10/22/16 17:49 Last Admin: 10/22/16 04:30 Dose: 75 mls/hr Sodium Chloride (Sodium Chloride 0.9%) 1,000 mls @ 999 mls/hr IV .Q1H1M STA Stop: 10/22/16 10:36 Last Admin: 10/22/16 10:04 Dose: 999 mls/hr Insulin Human Lispro (Humalog Med) 0 units SC ACHS ON LICENSE OF [facility] PRN Reason: Protocol Last Admin: 10/22/16 08:35 Dose: Not Given Isosorbide Mononitrate (Imdur) 60 mg PO DAILY ON [facility] OF [facility] Last Admin: 10/21/16 09:54 Dose: Not Given Lactic Acid (Lac-Hydrin 12% Lotion (225 G)) 0 gm EXT BID ON [facility] OF [facility] Last Admin: 10/22/16 10:08 Dose: 1 applic Levalbuterol HCl (Xopenex) 1.25 mg IH [id number] PRN PRN Reason: Shortness of Breath Mupirocin (Bactroban Ointment) 0 gm TOP BID ON [facility] OF [facility] Last Admin: 10/21/16 18:31 Dose: Not Given Nicotine (Nicoderm Cq) 1 patch TD DAILY ON [facility] OF [facility] Last Admin: 10/22/16 10:08 Dose: Not Given Nystatin/Triamcinolone Acetonide (Nystatin/Triamcinolone Cream) 0 ea TOP BID ON [facility] OF [facility] Last Admin: 10/22/16 10:07 Dose: 1 applic Pantoprazole Sodium (Protonix Inj) 40 mg IVP DAILY ON [facility] OF [facility] Last Admin: 10/22/16 10:05 Dose: 40 mg Sitagliptin Phosphate (Januvia) 50 mg PO DAILY ON [facility] OF [facility] Last Admin: 10/22/16 10:07 Dose: Not Given Tiotropium [place] (Spiriva) 18 mcg IH DAILY ON [facility] OF [facility] Last Admin: 10/22/16 10:05 Dose: 18 mcg Valsartan (Diovan) 320 mg PO DAILY ON [facility] OF [facility] Last Admin: 10/21/16 09:54 Dose: Not Given Warfarin Sodium (Coumadin) 4 mg PO 1800 [facility] PRN Reason: Protocol Last Admin: 10/21/16 17:54 Dose: 4 mg - Labs Labs: 10/22/16 04:57 10/22/16 04:57 PT 24.5 Seconds (9.9-11.8) H 10/22/16 04:57 INR 2.27 (0.93-1.08) H 10/22/16 04:57 APTT 45.1 Seconds (23.7-30.8) H 10/22/16 04:57 - Constitutional Appears: Non-toxic, No Acute Distress - Extremities Exam Additional comments: Lower extremity focused exam: Vasc: DP and PT pulses non-palpable B/L secondary to edema, Distal anterior tibial artery flow is palpable. +2 pitting edema noted to left lower extremity. CFT < 4 seconds to digits 1-5 B/L. Skin temperature runs hot to cool from proximal to distal on left lower extremity; runs warm to cold on right foot. Derm: Left: Partial thickness ulceration with fibrotic central eschar noted to medial aspect of left hallux measuring approximately 3.8 cm x 3.2cm. Marita-wound margins are macerated. No active drainage or exudate noted. No malodor, no fluctuance or other clinical signs of infection are noted at this time. Left lower leg non-blanchable erythema and callor extending from supra-malleolar level to tibial tuberosity circumfrentially. Right: Plantar distal tuft of hallux and 5th digit show ischemic changes, cold to touch, and darkening Neuro: Gross sensation diminished b/l Ortho: Mild tenderness noted on palpation of dorsal hallux Assessment and Plan - Assessment and Plan (Free Text) Assessment: 71 year old female with 1) Left hallux ulceration secondary to DM and PVD. 2) Left lower leg cellulits. 3) Rigth foot ischemia of 1st and 5th digits secondary to PVD. Plan: Pt seen and evaluated at bedside. Discussed with attending, Dr. Henriquez, in detail. Chart, labs and vitals reviewed; pt is afebrile, WBC= 11.2K. -Arterial duplex scan shows distal SFA, popliteal, and Trifucation disease, and significant diffuse calcifications of lower extremity vasculature. Left hallux cleansed with sterile water, dressed with Bactroban, xeroform and DSD. Left lower extremity dressed with BONI. Cellulits margins and intensity of left leg is: static-no change. Will continue to monitor left leg cellulits, limitation on decrease of symptoms will indicate alternative direct intervention. Continue IV abx per ID. Will monitor ischemia. Potential indication for Vascular consultation for potential intervention recommendations. Podiatry will continue to follow while inhouse. <Deric Henriquez - Last Filed: 10/23/16 08:11> Objective - Vital Signs/Intake and Output Vital Signs (last 24 hours): Temp Pulse Resp BP Pulse Ox 98.9 F 80 23 157/81 H 93 L 10/22/16 20:00 10/23/16 08:01 10/23/16 07:01 10/23/16 07:01 10/23/16 07:01 Intake and Output: 10/23/16 10/23/16 06:59 18:59 Intake Total 1460 Output Total 1100 Balance 360 - Medications Medications: Current Medications Acetaminophen (Tylenol 325mg Tab) 650 mg PO Q6H PRN PRN Reason: Fever >100.4 F Last Admin: 10/21/16 16:29 Dose: 650 mg Aspirin (Ecotrin) 81 mg PO 0800 ON [facility] Last Admin: 10/22/16 08:43 Dose: 81 mg Clopidogrel Bisulfate (Plavix) 75 mg PO DAILY ON [facility] Last Admin: 10/22/16 10:13 Dose: Not Given Glimepiride (Amaryl) 4 mg PO ACBD ON [facility] OF [facility] Last Admin: 10/22/16 17:23 Dose: Not Given Guaifenesin (Robitussin) 200 mg PO Q4H PRN PRN Reason: Cough and congestion Last Admin: 10/21/16 23:42 Dose: 200 mg Hydralazine HCl (Apresoline) 50 mg PO BID ON [facility] OF [facility] Last Admin: 10/21/16 18:32 Dose: Not Given Dextrose/Sodium Chloride (Dextrose 5%/0.9% Ns 1000 Ml) 1,000 mls @ 75 mls/hr IV .[id number] ON [facility] OF [facility] Last Admin: 10/22/16 16:22 Dose: 75 mls/hr Meropenem 1g/NS 100mL IVPB (Meropenem 1g/Ns 100ml Ivpb) 1 gm in 100 mls @ 100 mls/hr IVPB Q8 [facility] PRN Reason: Protocol Last Admin: 10/23/16 05:36 Dose: 100 mls/hr Linezolid (Zyvox 600mg/300ml D5w) 600 mg in 300 mls @ 200 mls/hr IVPB Q12 [facility] PRN Reason: Protocol Last Admin: 10/22/16 21:32 Dose: 200 mls/hr Insulin Human Lispro (Humalog Med) 0 units SC ACHS [facility] PRN Reason: Protocol Last Admin: 10/23/16 07:49 Dose: Not Given Isosorbide Mononitrate (Imdur) 60 mg PO DAILY ON [facility] Last Admin: 10/21/16 09:54 Dose: Not Given Lactic Acid (Lac-Hydrin 12% Lotion (225 G)) 0 gm EXT BID ON [facility] Last Admin: 10/22/16 10:08 Dose: 1 applic Levalbuterol HCl (Xopenex) 1.25 mg IH [id number] PRN PRN Reason: Shortness of Breath Mupirocin (Bactroban Ointment) 0 gm TOP BID ON [facility] Last Admin: 10/22/16 18:21 Dose: 1 applic Nicotine (Nicoderm Cq) 1 patch TD DAILY ON [facility] Last Admin: 10/22/16 10:08 Dose: Not Given Nystatin/Triamcinolone Acetonide (Nystatin/Triamcinolone Cream) 0 ea TOP BID ON [facility] Last Admin: 10/22/16 10:07 Dose: 1 applic Pantoprazole Sodium (Protonix Ec Tab) 40 mg PO 0600 ON [facility] Last Admin: 10/23/16 05:40 Dose: 40 mg Sitagliptin Phosphate (Januvia) 50 mg PO DAILY ON [facility] Last Admin: 10/22/16 10:07 Dose: Not Given Tiotropium [place] (Spiriva) 18 mcg IH DAILY ON [facility] Last Admin: 10/22/16 10:05 Dose: 18 mcg Valsartan (Diovan) 320 mg PO DAILY ON [facility] Last Admin: 10/21/16 09:54 Dose: Not Given Warfarin Sodium (Coumadin) 4 mg PO 1800 [facility] PRN Reason: Protocol Last Admin: 10/22/16 17:35 Dose: 4 mg - Labs Labs: 10/23/16 05:40 10/23/16 05:40 PT 28.0 Seconds (9.9-11.8) H 10/23/16 05:40 INR 2.59 (0.93-1.08) H 10/23/16 05:40 APTT 39.9 Seconds (23.7-30.8) H 10/23/16 05:40 Attending/Attestation - Attestation I have personally seen and examined this patient.: Yes I have fully participated in the care of the patient.: Yes I have reviewed all pertinent clinical information, including history, physical exam and plan: Yes
[2016-10-22 10:42] LABS: VENOUS BLOOD PH 7.17 (7.32-7.43)
[2016-10-22 11:10] LABS: ARTERIAL BLOOD GAS HEMOGLOBIN 8.6 g/dL (11.7-17.4); ARTERIAL BLOOD GAS O2 CAPACITY 11.8 mL/dl (16-24); ARTERIAL BLOOD GAS O2 CONTENT 11.8 ML/dl (15-23); ARTERIAL BLOOD GAS O2 SAT 99.6 % (95-98); ARTERIAL BLOOD GAS PCO2 61 mm/Hg (35-45); ARTERIAL BLOOD GAS PH 7.22 (7.35-7.45); ARTERIAL BLOOD GAS TCO2 26.9 mmol.L (22-28)
--- NOTE | 2016-10-22 13:21 | CP.PCM.PN ---
<Ly Etienne - Last Filed: 10/22/16 13:09> Subjective - Date & Time of Evaluation Date of Evaluation: 10/22/16 Time of Evaluation: 09:00 - Subjective Subjective: ICU Progress Note, Ly Etienne PGY-2 Pt was seen and examined at bedside. Pt was hypotensive overnight at which time pt was bolused and started on 75cc/hr NS. Pt is AAOx3 denied fever, chills, chest pains, abdominal pains, n/v/d/c. Pt admitted to continued left lower extremity tenderness and sob. Objective - Vital Signs/Intake and Output Vital Signs (last 24 hours): Temp Pulse Resp BP Pulse Ox 97.5 F L 85 17 86/37 L 100 10/22/16 04:00 10/22/16 11:30 10/22/16 06:00 10/22/16 06:00 10/22/16 06:00 Intake and Output: 10/22/16 10/22/16 06:59 18:59 Intake Total 1975 Output Total 500 Balance 1475 - Medications Medications: Current Medications Acetaminophen (Tylenol 325mg Tab) 650 mg PO Q6H PRN PRN Reason: Fever >100.4 F Last Admin: 10/21/16 16:29 Dose: 650 mg Aspirin (Ecotrin) 81 mg PO 0800 [facility] Last Admin: 10/22/16 08:43 Dose: 81 mg Clopidogrel Bisulfate (Plavix) 75 mg PO DAILY [facility] Last Admin: 10/22/16 10:13 Dose: Not Given Glimepiride (Amaryl) 4 mg PO ACBD [facility] Last Admin: 10/22/16 08:34 Dose: Not Given Guaifenesin (Robitussin) 200 mg PO Q4H PRN PRN Reason: Cough and congestion Last Admin: 10/21/16 23:42 Dose: 200 mg Hydralazine HCl (Apresoline) 50 mg PO BID [facility] Last Admin: 10/21/16 18:32 Dose: Not Given Piperacillin Sod/Tazobactam Sod (Zosyn 3.375 In Ns 100ml) 100 mls @ 200 mls/hr IVPB Q6 [facility] PRN Reason: Protocol Stop: 10/28/16 00:01 Last Admin: 10/22/16 12:11 Dose: 200 mls/hr Sodium Chloride (Sodium Chloride 0.9%) 1,000 mls @ 75 mls/hr IV .[id number] [facility] Stop: 10/22/16 17:49 Last Admin: 10/22/16 04:30 Dose: 75 mls/hr Insulin Human Lispro (Humalog Med) 0 units SC ACHS [facility] PRN Reason: Protocol Last Admin: 10/22/16 08:35 Dose: Not Given Isosorbide Mononitrate (Imdur) 60 mg PO DAILY [facility] Last Admin: 10/21/16 09:54 Dose: Not Given Lactic Acid (Lac-Hydrin 12% Lotion (225 G)) 0 gm EXT BID [facility] Last Admin: 10/22/16 10:08 Dose: 1 applic Levalbuterol HCl (Xopenex) 1.25 mg IH [id number] PRN PRN Reason: Shortness of Breath Mupirocin (Bactroban Ointment) 0 gm TOP BID [facility] Last Admin: 10/21/16 18:31 Dose: Not Given Nicotine (Nicoderm Cq) 1 patch TD DAILY [facility] Last Admin: 10/22/16 10:08 Dose: Not Given Nystatin/Triamcinolone Acetonide (Nystatin/Triamcinolone Cream) 0 ea TOP BID [facility] Last Admin: 10/22/16 10:07 Dose: 1 applic Pantoprazole Sodium (Protonix Inj) 40 mg IVP DAILY [facility] Last Admin: 10/22/16 10:05 Dose: 40 mg Sitagliptin Phosphate (Januvia) 50 mg PO DAILY [facility] Last Admin: 10/22/16 10:07 Dose: Not Given Tiotropium [place] (Spiriva) 18 mcg IH DAILY [facility] Last Admin: 10/22/16 10:05 Dose: 18 mcg Valsartan (Diovan) 320 mg PO DAILY [facility] Last Admin: 10/21/16 09:54 Dose: Not Given Warfarin Sodium (Coumadin) 4 mg PO 1800 [facility] PRN Reason: Protocol Last Admin: 10/21/16 17:54 Dose: 4 mg - Labs Labs: 10/22/16 04:57 10/22/16 04:57 PT 24.5 Seconds (9.9-11.8) H 10/22/16 04:57 INR 2.27 (0.93-1.08) H 10/22/16 04:57 APTT 45.1 Seconds (23.7-30.8) H 10/22/16 04:57 - Constitutional Appears: No Acute Distress - Head Exam Head Exam: ATRAUMATIC, NORMAL INSPECTION, NORMOCEPHALIC - Eye Exam Eye Exam: EOMI, Normal appearance, PERRL Pupil Exam: NORMAL ACCOMODATION, PERRL - ENT Exam ENT Exam: Mucous Membranes Moist, Normal Exam - Respiratory Exam Respiratory Exam: Rhonchi, Wheezes - Cardiovascular Exam Cardiovascular Exam: REGULAR RHYTHM, +S1, +S2. absent: Murmur - GI/Abdominal Exam GI & Abdominal Exam: Soft, Normal Bowel Sounds. absent: Tenderness - Extremities Exam Extremities Exam: Pedal Edema, Tenderness Additional comments: LLE tenderness, bandaged, left toe dressed - Neurological Exam Neurological Exam: Alert, Awake, CN II-XII Intact, Oriented x3 - Psychiatric Exam Psychiatric exam: Normal Affect, Normal Mood - Skin Skin Exam: Dry, Erythema (b/l le) Assessment and Plan - Assessment and Plan (Free Text) Assessment: 71 F with PMHx morbid-obesity, diabetes, HTN, HLD, CAD, A-fib on coumadin, COPD , pulm HTN, CHF (EF 52%), chronic anemia, and hx GI bleed admitted to the ICU for severe sepsis 2/2 to cellulitis and gangrenous left toe. Pt was fluid resuscitated initially with resolution of lactic acidosis and improved mental status. Pt experienced hypotensive episode overnight at which point pt was started on IVF. Pt was placed on BIPAP after being found to be acidodic 2/2 retaining co2. Neuro: - AAOx3, mentating well - Continue to monitor Pulm: - Acidodic on ABG, started on Bipap 03/09/29 - Goal SaO2 > 88% - Spiriva, Xopenex prn q6 Cardio: - positive trop in the setting of severe sepsis - afib anticoagulated with coumadin, INR therapeutic - Continue home ASA - Hydralazine, Imdur, and Diovan held on account of episode of hypotension - Maintain MAP > 65 - Continue 75cc/hr with NS, pt no longer hypotensive GI: - tolerating diet - Protonix GI ppx Renal: - Monitor Renal fcn - Continue gentle hydration at 75cc/hr NS, monitor fluid status closely - Monitor I's and O's - Monitor and replete electrolytes as needed MSK: - Left 1st toe ulceration, necrotic-appearing base, b/l cellulitis - Podiatry Dr. Hoffman consulted, wrapped ba lle, dressed with bactroban xeroform and dsd Heme: - Hgb 9.2,stable - INR 2.27, - therapeutic INR covers for DVT ppx ID: - Fluid resuscitated with resolution of lactic acidosis and improved mental status - Zosyn IV, continue pending ID eval and recs - ID Dr. Obrien consulted and following Endo: - Glimepiride 4mg PO ACBD, Januvia 50mg PO QD - Insulin Med ISS and Accuchecks ACHS - Maintain blood glucose 140-180 Patient seen, reviewed, and discussed with attending <Cassius Storm - Last Filed: 10/22/16 14:41> Objective - Vital Signs/Intake and Output Vital Signs (last 24 hours): Temp Pulse Resp BP Pulse Ox 97.5 F L 80 17 86/37 L 100 10/22/16 04:00 10/22/16 14:00 10/22/16 06:00 10/22/16 06:00 10/22/16 06:00 Intake and Output: 10/22/16 10/22/16 06:59 18:59 Intake Total 1975 Output Total 500 Balance 1475 - Medications Medications: Current Medications Acetaminophen (Tylenol 325mg Tab) 650 mg PO Q6H PRN PRN Reason: Fever >100.4 F Last Admin: 10/21/16 16:29 Dose: 650 mg Aspirin (Ecotrin) 81 mg PO 0800 [facility] Last Admin: 10/22/16 08:43 Dose: 81 mg Clopidogrel Bisulfate (Plavix) 75 mg PO DAILY [facility] Last Admin: 10/22/16 10:13 Dose: Not Given Glimepiride (Amaryl) 4 mg PO ACBD [facility] Last Admin: 10/22/16 08:34 Dose: Not Given Guaifenesin (Robitussin) 200 mg PO Q4H PRN PRN Reason: Cough and congestion Last Admin: 10/21/16 23:42 Dose: 200 mg Hydralazine HCl (Apresoline) 50 mg PO BID [facility] Last Admin: 10/21/16 18:32 Dose: Not Given Piperacillin Sod/Tazobactam Sod (Zosyn 3.375 In Ns 100ml) 100 mls @ 200 mls/hr IVPB Q6 [facility] PRN Reason: Protocol Stop: 10/28/16 00:01 Last Admin: 10/22/16 12:11 Dose: 200 mls/hr Sodium Chloride (Sodium Chloride 0.9%) 1,000 mls @ 75 mls/hr IV .[id number] [facility] Stop: 10/22/16 17:49 Last Admin: 10/22/16 04:30 Dose: 75 mls/hr Insulin Human Lispro (Humalog Med) 0 units SC ACHS [facility] PRN Reason: Protocol Last Admin: 10/22/16 12:00 Dose: Not Given Isosorbide Mononitrate (Imdur) 60 mg PO DAILY [facility] Last Admin: 10/21/16 09:54 Dose: Not Given Lactic Acid (Lac-Hydrin 12% Lotion (225 G)) 0 gm EXT BID [facility] Last Admin: 10/22/16 10:08 Dose: 1 applic Levalbuterol HCl (Xopenex) 1.25 mg IH [id number] PRN PRN Reason: Shortness of Breath Mupirocin (Bactroban Ointment) 0 gm TOP BID [facility] Last Admin: 10/22/16 12:00 Dose: 1 applic Nicotine (Nicoderm Cq) 1 patch TD DAILY [facility] Last Admin: 10/22/16 10:08 Dose: Not Given Nystatin/Triamcinolone Acetonide (Nystatin/Triamcinolone Cream) 0 ea TOP BID [facility] Last Admin: 10/22/16 10:07 Dose: 1 applic Pantoprazole Sodium (Protonix Inj) 40 mg IVP DAILY [facility] Last Admin: 10/22/16 10:05 Dose: 40 mg Sitagliptin Phosphate (Januvia) 50 mg PO DAILY [facility] Last Admin: 10/22/16 10:07 Dose: Not Given Tiotropium [place] (Spiriva) 18 mcg IH DAILY [facility] Last Admin: 10/22/16 10:05 Dose: 18 mcg Valsartan (Diovan) 320 mg PO DAILY [facility] Last Admin: 10/21/16 09:54 Dose: Not Given Warfarin Sodium (Coumadin) 4 mg PO 1800 [facility] PRN Reason: Protocol Last Admin: 10/21/16 17:54 Dose: 4 mg - Labs Labs: 10/22/16 04:57 10/22/16 04:57 PT 24.5 Seconds (9.9-11.8) H 10/22/16 04:57 INR 2.27 (0.93-1.08) H 10/22/16 04:57 APTT 45.1 Seconds (23.7-30.8) H 10/22/16 04:57 Attending/Attestation - Attestation I have personally seen and examined this patient.: Yes I have fully participated in the care of the patient.: Yes I have reviewed all pertinent clinical information, including history, physical exam and plan: Yes Notes (Text): 10/22/16 14:37 71 yo female with severe sepsis due to pansensitive Klebsiella pneumoniae UTI complicated by MODS with respiratory insufficiency, RENEE, septic cardiomyopathy. Would proceed with IVF bolus, cont abx--would de-escalate to ceftriaxone, BPAP for respiratory acidosis. continue bronchodilators and ICS. Cardiology, nephro consult. GI prophylaxis. TAC with warfarin is ongoing ccm time 40 min
--- NOTE | 2016-10-22 13:36 | PN ---
SUBJECTIVE: The patient is a 71 years old who seems to sleepy, but arousable. She was found to be acidotic, currently on BiPAP with pressure of 15/5 and 35% of oxygen. She was hypotensive this morning, not in acute distress. PHYSICAL EXAMINATION: VITAL SIGNS: She is afebrile, pulse is 85, respirations 17, blood pressure 86/37. LUNGS: Bilateral diffusely decreased breath sounds. HEART: S1 and S2 audible. Irregular rate control. ABDOMEN: Soft, obese, nontender, no rebound, no guarding. NEUROLOGIC: She is sleepy, but arousable. Bilateral leg she had cellulitis left more than the right. She has healing ulcer on the left big toe; however, she has bluish-purplish discoloration of the fifth toe of the right side. LABORATORY DATA: WBC is 11.2, hemoglobin 9.2, hematocrit 29, platelets of 254. Her PT is 24.5. INR 2.27. Today's AP/GP is 7.22, bicarbonate 25, CO2 26, pulse ox 99%. Chemistry show sodium 41, potassium 4.2, chloride 105, BUN 44, creatinine 1.3, blood sugar of 67, troponin 0.37. Her urine culture shows gram-negative that is Klebsiella and her stool cultures are positive for pseudomonas and enterococcus faecalis. ASSESSMENT: 1. Probably demand ischemia. 2. Chronic obstructive pulmonary disease exacerbation. 3. Bilateral leg cellulitis. 4. Atb-rqmvuhj-iyzjxpjfn diabetes. 5. Morbid obesity. 6. Pseudomonas toe infection. 7. Klebsiella urinary tract infection. PLAN: Currently, the patient is on her oral hypoglycemics. She is getting Zosyn and local wound care is done for her left big toe. She is currently on BiPAP. She has received one blood transfusion yesterday. We will give her challenge of IV fluid to boost up her blood pressure and we will get CBC and CMP in the a.m. Edwige Kirby MD
--- NOTE | 2016-10-22 14:00 | CON ---
DATE: 10/22/2016 CONSULT SERVICE CARDIOLOGY PHYSICIAN: Dr. Brianna Sandra. REASON FOR THE CONSULTATION: Positive troponin admitted with altered mental status, history of CAD, history of chronic atrial fibrillation, COPD. BRIEF CLINICAL HISTORY: This is a 71-year-old female with past medical history significant for diabetes, hypertension, hyperlipidemia, COPD, coronary artery disease, status post cath in the past, one vessel coronary artery disease, renal insufficiency, chronic atrial fibrillation, on anticoagulation, history of COPD, moderate aortic stenosis, admitted with altered mental status on 10/20/2016 and possibly sepsis. This morning, troponin was found to be positive, so cardiology consult was called. The patient denies any chest pain, denies any shortness of breath or any palpitations, though appears lethargic. PAST MEDICAL HISTORY: Significant for morbid obesity, COPD, chronic atrial fibrillation, moderate aortic stenosis, valve area 1 cm2; COPD, secondary to CHF and diastolic dysfunction, valvular heart disease, type 2 diabetes and morbid obesity. RECENT CARDIAC WORKUP: As follows: DARIUS on 04/07/2016, ejection fraction 65%, trace AR, moderate , aortic valve area 1 cm2, mild TR, trace aortic regurgitation, wdcueqii-in-pkhzmi mitral regurgitation. Status post cardiac catheterization 2-1/2 years ago, single vessel RCA totally occluded, well collateralized of LAD. Medical treatment recommended. SOCIAL HISTORY: Active tobacco abuse. Denies any history of alcohol abuse. CURRENT MEDICATIONS: At home, before the patient came in, was taking metformin, Glucophage, guaifenesin, hydralazine, Coumadin 5 mg alternating with 2.5 mg, valsartan 320 mg daily, Januvia, potassium, nadolol 10 mg daily, glimepiride, aspirin and Xanax. REVIEW OF SYSTEMS: As per HPI. PHYSICAL EXAMINATION: As follows. VITAL SIGNS: Temperature afebrile, heart rate 71 and blood pressure 95/47. HEENT: PERRLA intact. NECK: Supple. No carotid bruit. No thyromegaly. CHEST: Clear to auscultation. HEART: S1, S2 regular. ABDOMEN: Soft, EXTREMITIES: Clubbing and cyanosis negative. LABORATORY DATA: WBC 11.2, hemoglobin 9.2, hematocrit 29.9 and platelet count 254. Chemistry shows sodium 141, potassium 4.2, chloride 105, carbon dioxide 26, anion gap of 14, BUN 44, creatinine 1.3. Troponin 0.37. MICROBIOLOGY: Blood culture negative, but urine positive Gram-negative rods. IMPRESSION: A 71-year-old morbidly obese female with past medical history significant for coronary artery one vessel of right coronary artery totally occluded, cardiac catheterization 2-1/2 years ago, history of chronic atrial fibrillation, history of preserved left ventricular function by echo recently , moderate aortic stenosis, valve area 1 cm2, uuupkhgd-sj-[place] mitral regurgitation, trace tricuspid regurgitation, trace aortic regurgitation, admitted with altered mental status, possible sepsis and urinary tract infection. This morning, troponin is positive. The patient denies any chest pain. History of chronic atrial fibrillation, was on anticoagulation, admitting INR was therapeutic, I believe, 2.27. EKG shows atrial fibrillation, no acute ST-T wave changes noted. RECOMMENDATION: Continue anticoagulation loaded with Plavix, but we will leave it as it is. Continue rest of the medication. Continue broad-spectrum antibiotic. Follow the trend. Continue IV fluids for hypotension. Possibly, this troponin is secondary to hemodynamic instability. At one point, the patient's blood pressure was low for possibly secondary to demand and supply mismatch as well as underlying coronary artery disease. Give IV fluid. Follow the trend. Further recommendations during the hospital course. We will follow with you. However, her last echo shows preserved LV function and the medical treatment was recommended. We will follow with you. Aggressively give IV fluid and antibiotic and follow the trend of troponin. Thank you Dr. Kirby for the opportunity in taking care of the patient Esther Baxter. Brianna Sandra MD
--- NOTE | 2016-10-22 14:58 | CP.PCM.PN ---
Subjective - Date & Time of Evaluation Date of Evaluation: 10/22/16 Time of Evaluation: 09:40 - Subjective Subjective: Comfortable in bed, no fevers overnight, not in distress. Objective - Vital Signs/Intake and Output Vital Signs (last 24 hours): Temp Pulse Resp BP Pulse Ox 97.5 F L 71 17 86/37 L 100 10/22/16 04:00 10/22/16 06:00 10/22/16 06:00 10/22/16 06:00 10/22/16 06:00 Intake and Output: 10/21/16 10/22/16 18:59 06:59 Intake Total 2125 1975 Output Total 500 Balance 2125 1475 - Medications Medications: Current Medications Acetaminophen (Tylenol 325mg Tab) 650 mg PO Q6H PRN PRN Reason: Fever >100.4 F Last Admin: 10/21/16 16:29 Dose: 650 mg Aspirin (Ecotrin) 81 mg PO 0800 [facility] Last Admin: 10/21/16 09:48 Dose: 81 mg Glimepiride (Amaryl) 4 mg PO ACBD [facility] Last Admin: 10/21/16 16:29 Dose: 4 mg Guaifenesin (Robitussin) 200 mg PO Q4H PRN PRN Reason: Cough and congestion Last Admin: 10/21/16 23:42 Dose: 200 mg Hydralazine HCl (Apresoline) 50 mg PO BID [facility] Last Admin: 10/21/16 18:32 Dose: Not Given Vancomycin HCl (Vancomycin 1gm) 1 gm in 250 mls @ 167 mls/hr IVPB Q12H [facility] PRN Reason: Protocol Last Admin: 10/21/16 22:27 Dose: 167 mls/hr Piperacillin Sod/Tazobactam Sod (Zosyn 3.375 In Ns 100ml) 100 mls @ 200 mls/hr IVPB Q6 [facility] PRN Reason: Protocol Stop: 10/28/16 00:01 Last Admin: 10/22/16 06:01 Dose: 200 mls/hr Sodium Chloride (Sodium Chloride 0.9%) 1,000 mls @ 75 mls/hr IV .[id number] [facility] Stop: 10/22/16 17:49 Last Admin: 10/22/16 04:30 Dose: 75 mls/hr Insulin Human Lispro (Humalog Med) 0 units SC ACHS [facility] PRN Reason: Protocol Last Admin: 10/21/16 22:50 Dose: Not Given Isosorbide Mononitrate (Imdur) 60 mg PO DAILY [facility] Last Admin: 10/21/16 09:54 Dose: Not Given Lactic Acid (Lac-Hydrin 12% Lotion (225 G)) 0 gm EXT BID [facility] Last Admin: 10/21/16 17:56 Dose: 1 applic Levalbuterol HCl (Xopenex) 1.25 mg IH [id number] PRN PRN Reason: Shortness of Breath Mupirocin (Bactroban Ointment) 0 gm TOP BID [facility] Last Admin: 10/21/16 18:31 Dose: Not Given Nicotine (Nicoderm Cq) 1 patch TD DAILY [facility] Last Admin: 10/21/16 09:46 Dose: 1 patch Nystatin/Triamcinolone Acetonide (Nystatin/Triamcinolone Cream) 0 ea TOP BID [facility] Last Admin: 10/21/16 17:56 Dose: 1 applic Pantoprazole Sodium (Protonix Inj) 40 mg IVP DAILY [facility] Last Admin: 10/21/16 09:44 Dose: 40 mg Sitagliptin Phosphate (Januvia) 50 mg PO DAILY [facility] Last Admin: 10/21/16 09:48 Dose: 50 mg Tiotropium [place] (Spiriva) 18 mcg IH DAILY [facility] Last Admin: 10/21/16 09:57 Dose: 18 mcg Valsartan (Diovan) 320 mg PO DAILY [facility] Last Admin: 10/21/16 09:54 Dose: Not Given Warfarin Sodium (Coumadin) 4 mg PO 1800 [facility] PRN Reason: Protocol Last Admin: 10/21/16 17:54 Dose: 4 mg - Labs Labs: 10/22/16 04:57 10/22/16 04:57 PT 24.5 Seconds (9.9-11.8) H 10/22/16 04:57 INR 2.27 (0.93-1.08) H 10/22/16 04:57 APTT 45.1 Seconds (23.7-30.8) H 10/22/16 04:57 - Constitutional Appears: Non-toxic, No Acute Distress - Head Exam Head Exam: NORMAL INSPECTION - ENT Exam ENT Exam: Mucous Membranes Moist - Neck Exam Neck Exam: absent: Meningismus - Respiratory Exam Respiratory Exam: Decreased Breath Sounds - Cardiovascular Exam Cardiovascular Exam: +S1, +S2 - GI/Abdominal Exam GI & Abdominal Exam: Soft. absent: Tenderness - Extremities Exam Additional comments: left foot with dry dressings in place Assessment and Plan - Assessment and Plan (Free Text) Plan: Assessment Systemic Inflammatory Response Syndrome, consider sepsis from UTI history of infected diabetic ulceration of the left hallux associated with trauma with probable peripheral vascular disease, growing MRSA - no evidence of osteomyelitis on MRI - S/P arthrectomy and angioplasty of left sided lower extremity vasculature S/P Sepsis with acute hypoxic respiratory failure secondary to left-sided healthcare-associated pneumonia with possible gram positive cocci and/or gram negative bacilli, clinically improved and S/P treatment as well as sepsis from persistent methicillin-resistant coagulase negative staph bacteremia , probably port infection S/P removal of the port history of Group G Strep bacteremia history of E. coli UTI history of healthcare-associated pneumonia acute renal failure obesity with BMI 38 CAD GERD arthritis history of bilateral knee replacements chronic CHF COPD DM history of breast CA History of Strep bovis bacteremia (2012) S/P Port-a-cath placement Plan held Vancomycin because of increase in creatinine; will continue Zosyn day 2 pending identification and sensitivities of the gram negative bacilli in the urine cx; reviewed CXR which does not show infiltrates will continue to monitor clinically
[2016-10-22 15:18] LABS: ARTERIAL BLOOD GAS HCO3 24.7 mmol/L (21-28); ARTERIAL BLOOD GAS PCO2 59 mm/Hg (35-45); ARTERIAL BLOOD GAS PH 7.23 (7.35-7.45); ARTERIAL BLOOD GAS TCO2 26.5 mmol.L (22-28)
[2016-10-22 15:44] LABS: CALCIUM 8.3 mg/dL (8.4-10.5)
[2016-10-22] MEDS ORDERED: Dextrose 50% SYRINGE Inj (50 ml) ONE (15:51)
[2016-10-22] MEDS ORDERED: Dextrose 50% SYRINGE Inj (50 ml) IVP ONE (15:52)
[2016-10-22 16:05] LABS: CREATININE,RANDOM URINE 39 mg/dL
[2016-10-22 16:14] LABS: TROPONIN I 0.3 ng/mL
[2016-10-22] MEDS: Dextrose 5%/0.9% NS 1,000 ML IV SCH (16:22)
--- NOTE | 2016-10-22 16:35 | CARD ---
APPROVED REPORT EKG Measurement Heart [id number] <Conclusion> Atrial fibrillation Rightward axis Nonspecific intraventricular block Cannot rule out Anteroseptal infarct, age undetermined STTW changes c/w ischemia
[2016-10-22] MEDS: Meropenem 1g/NS 100mL IVPB 1 GM/100 ML PIGGYBACK IVPB SCH ×2 (17:35→21:35)
--- NOTE | 2016-10-22 17:44 | CON ---
DATE: 10/22/2016 REASON FOR CONSULTATION: Acute kidney injury, sepsis, hypotension. HISTORY OF PRESENT ILLNESS: A 71-year-old lady previously unknown to me is seen in the intensive care unit. The patient was admitted on 10/20 with complaints of somnolence, lethargy at home, shortness of breath, bilateral lower extremity swelling, bilateral lower extremity tenderness. According to the history in the chart, the patient was relatively okay in the morning. After day of admission, but in the afternoon became increasingly drowsy and sleepy. She had a bowel movement. There was no history of any nausea or vomiting. No history of any hematemesis or hemoptysis. The patient was thought to be short of breath. She was brought to the emergency room. She was noted to have edema and swelling of the left lower extremity, also groin rash. In the emergency room "sepsis" was called because WBC count was 16, 000, lactate of 2.6. The patient was evaluated over the ICU and she was admitted to the ICU for septic shock. Initial vital signs found to be blood pressure of 104/50, heart rate of 70, temperature of 100.1. Also her WBC count was 16.5. At the time of admission her creatinine was 0.9. Creatinine has risen to 1.3 and consultation is requested for acute kidney injury. PAST MEDICAL/SURGICAL HISTORY: Morbid obesity, CAD, PTCA and stent, cardiomyopathy, COPD, chronic kidney disease, NIDDM, history of GI bleed, cardiac cirrhosis, congestive gastropathy, gastroparesis. FAMILY HISTORY: Noncontributory. SOCIAL HISTORY: current heavy smoker, no alcohol use, no drug abuse. ALLERGIES: NO KNOWN DRUG ALLERGIES. MEDICATIONS: At home, metformin 500 b.i.d., hydralazine 50 b.i.d., guanfacine, zolpidem, Coumadin, Diovan, 320 daily, Janumet 550/1000 b.i.d., Januvia 50 daily, potassium, nystatin, Corgard 10 b.i.d., Lasix 40 b.i.d., Amaryl 4 mg three times a day before meals, Imdur 60. REVIEW OF SYSTEMS: Systems review unable because patient is fully unable to cooperate with systems review. PHYSICAL EXAMINATION GENERAL: Morbidly obese, elderly lady, lying in the bed in the ICU. VITAL SIGNS: Blood pressure 86/37, heart rate 91, respiratory rate 18 to 25, temperature 97.5. HEENT: Normocephalic, atraumatic, positive pallor. NECK: Supple. No JVD. LUNGS: Bilateral rhonchi, distant breath sounds, no rales appreciated anteriorly. CARDIAC: S1 and S2, regular rate and rhythm. No murmur, no rub. ABDOMEN: Obese, distended, soft, nontender. Bowel sounds present. EXTREMITIES: Chronic stasis changes. Marked erythema of the left lower extremity, 3+ pitting edema. Cyanosis of the right toes. INTAKE AND OUTPUT: 4100/500. LABORATORY DATA: WBC 11.2, hemoglobin 9.2, hematocrit 29.9, platelet is 254 , sodium 141, potassium 4.2, CO2 of 26, BUN 44, creatinine 1.3, glucose 67, calcium 8.7, phosphorus 4.5, magnesium 2.4, AST 17, ALT 24, troponin 0.37, albumin 3.5. Urinalysis yellow cloudy. PH 6.0, specific gravity 1.025, protein 30, blood large, nitrate positive, leukocyte esterase small. INR 2.2, PH 7.22. Urine culture gram-negative carolyn. Wound culture pseudomonas and enterococcus faecalis, blood cultures no growth so far. Urine culture Klebsiella pneumoniae, lower extremity Doppler, bilateral distal SFA, popliteal and trifurcation disease. CURRENT MEDICATIONS: Amaryl, Apresoline on hold, Coumadin, Diovan on hold, Ecotrin, Humalog, Imdur, Januvia 50 daily not given, Plavix 75 not given, Protonix, Robitussin, normal saline at 75 mL per hour, Spiriva, Tylenol, Xopenex, Zosyn 3.74 q. 6, vancomycin 1 g given yesterday. ASSESSMENT: 1. Septic shock, multiorgan dysfunction,hypotension, leukocytosis, acute kidney injury, acute coronary syndrome. 2. Source of sepsis is likely to be the urine, Klebsiella urinary tract infection. 3. Acute kidney injury, acute tubular necrosis in the setting of sepsis, hypotension. 4. Elevated troponin. 5. Sever anemia. 6. Dcm-ttivxvj-hhzfbqgxo diabetes mellitus. 7. Hypertension. 8. Coronary artery disease. 9. Morbid obesity. PLAN: 1. Fluid resuscitation. 2. IV antibiotics as per IV recommendations, dose for creatinine clearance 30 to 50 mL per minute. 3. Avoid nephrotoxins. 4. Check urine sodium and urine creatinine to calculate FENa. 5. Maintain euglycemia. 6. Hold antihypertensive. 7. Continue to monitor in the ICU. 8. Case discuss with Dr. Storm at length, case discussed with ICU staff, more than 35 minutes spent in the care of this critically ill patient. Naomi Hinojosa MD MTDD
[2016-10-22] MEDS: Linezolid 600 mg in D5W 300 ml 600 MG/300 ML BAG IVPB SCH (21:32)
[2016-10-23] MEDS: Meropenem 1g/NS 100mL IVPB 1 GM/100 ML PIGGYBACK IVPB SCH ×3 (05:36→21:05)
[2016-10-23] MEDS: Pantoprazole 40 mg EC Tab PO SCH (05:40)
[2016-10-23 06:31] LABS: ARTERIAL BLOOD GAS HCO3 23.1 mmol/L (21-28); ARTERIAL BLOOD GAS HEMOGLOBIN 10.6 g/dL (11.7-17.4); ARTERIAL BLOOD GAS O2 CAPACITY 14.4 mL/dl (16-24); ARTERIAL BLOOD GAS O2 CONTENT 13.7 ML/dl (15-23); ARTERIAL BLOOD GAS O2 SAT 95.4 % (95-98); ARTERIAL BLOOD GAS PCO2 54 mm/Hg (35-45); ARTERIAL BLOOD GAS PH 7.24 (7.35-7.45); ARTERIAL BLOOD GAS TCO2 24.8 mmol.L (22-28)
[2016-10-23 06:37] LABS: BASO # 0.01 K/mm3 (0.0-2.0); BASO % 0.1 % (0.0-3.0); EOS # 0.2 (0.0-0.7); EOS % 2.1 % (1.5-5.0); GRAN # 7.23 (1.4-6.5); GRAN % 79.9 % (50.0-68.0); HEMOGLOBIN 9.6 gm/dL (12.0-16.0); LYMPH # 0.9 (1.2-3.4); LYMPH % 9.5 % (22.0-35.0); MEAN CELL VOLUME 92.2 fL (80.0-105.0); MEAN CORPUSCULAR HEMOGLOBIN 27.7 pg (25.0-35.0); MEAN CORPUSCULAR HGB CONC 30.1 g/dl (31.0-37.0); MONO # 0.8 (0.1-0.6); MONO % 8.4 % (1.0-6.0); PLATELET COUNT 247 10^3/uL (120.0-450.0); RBC 3.46 10^6/uL (3.5-6.1); RED CELL DISTRIBUTION WIDTH 18.2 % (11.5-14.5); WHITE BLOOD COUNT 9.1 10^3/ul (4.5-11.0)
[2016-10-23 06:39] LABS: INR 2.59 (0.93-1.08); PARTIAL THROMBOPLASTIN TIME 39.9 Seconds (23.7-30.8)
[2016-10-23 06:46] LABS: ALB/GLOB RATIO 1.3 (1.1-1.8); ALBUMIN 3.7 g/dL (3.0-4.8); MAGNESIUM 2.4 mg/dL (1.7-2.2)
[2016-10-23 07:18] LABS: TROPONIN I 0.26 ng/mL
[2016-10-23] MEDS: Insulin Lispro (humaLOG) MEDIUM Coverage SC SCH ×4 (07:49→21:42)
--- NOTE | 2016-10-23 08:44 | RAD ---
HISTORY: resp failure COMPARISON: 10/20/2016 FINDINGS: LUNGS: Diffuse bilateral alveolar opacity, with some apical sparing. This represents interval change from prior examination. Nonspecific finding. Possible pulmonary edema. PLEURA: No significant pleural effusion identified, no pneumothorax apparent. CARDIOVASCULAR: Grossly normal heart size. Pulmonary vascular congestive change is noted. OSSEOUS STRUCTURES: No significant abnormalities. VISUALIZED UPPER ABDOMEN: Normal. OTHER FINDINGS: None. IMPRESSION: Diffuse bilateral alveolar infiltrate, possible pulmonary edema. No pleural effusion.
--- NOTE | 2016-10-23 09:51 | CP.PCM.PN ---
Subjective - Date & Time of Evaluation Date of Evaluation: 10/23/16 Time of Evaluation: 09:40 - Subjective Subjective: Comfortable in bed, not in distress, still with pain in the left foot but swelling is decreased. No fevers overnight. Objective - Vital Signs/Intake and Output Vital Signs (last 24 hours): Temp Pulse Resp BP Pulse Ox 98.9 F 91 H 22 146/86 75 L 10/22/16 20:00 10/23/16 06:01 10/23/16 06:01 10/23/16 06:01 10/23/16 03:00 Intake and Output: 10/22/16 10/23/16 18:59 06:59 Intake Total 4000 Output Total 1150 Balance 2850 - Medications Medications: Current Medications Acetaminophen (Tylenol 325mg Tab) 650 mg PO Q6H PRN PRN Reason: Fever >100.4 F Last Admin: 10/21/16 16:29 Dose: 650 mg Aspirin (Ecotrin) 81 mg PO 0800 [facility] Last Admin: 10/22/16 08:43 Dose: 81 mg Clopidogrel Bisulfate (Plavix) 75 mg PO DAILY [facility] Last Admin: 10/22/16 10:13 Dose: Not Given Glimepiride (Amaryl) 4 mg PO ACBD [facility] Last Admin: 10/22/16 17:23 Dose: Not Given Guaifenesin (Robitussin) 200 mg PO Q4H PRN PRN Reason: Cough and congestion Last Admin: 10/21/16 23:42 Dose: 200 mg Hydralazine HCl (Apresoline) 50 mg PO BID [facility] Last Admin: 10/21/16 18:32 Dose: Not Given Dextrose/Sodium Chloride (Dextrose 5%/0.9% Ns 1000 Ml) 1,000 mls @ 75 mls/hr IV [id number] [facility] Last Admin: 10/22/16 16:22 Dose: 75 mls/hr Meropenem 1g/NS 100mL IVPB (Meropenem 1g/Ns 100ml Ivpb) 1 gm in 100 mls @ 100 mls/hr IVPB Q8 [facility] PRN Reason: Protocol Last Admin: 10/23/16 05:36 Dose: 100 mls/hr Linezolid (Zyvox 600mg/300ml D5w) 600 mg in 300 mls @ 200 mls/hr IVPB Q12 [facility] PRN Reason: Protocol Last Admin: 10/22/16 21:32 Dose: 200 mls/hr Insulin Human Lispro (Humalog Med) 0 units SC ACHS [facility] PRN Reason: Protocol Last Admin: 10/22/16 23:15 Dose: Not Given Isosorbide Mononitrate (Imdur) 60 mg PO DAILY [facility] Last Admin: 10/21/16 09:54 Dose: Not Given Lactic Acid (Lac-Hydrin 12% Lotion (225 G)) 0 gm EXT BID [facility] Last Admin: 10/22/16 10:08 Dose: 1 applic Levalbuterol HCl (Xopenex) 1.25 mg IH [id number] PRN PRN Reason: Shortness of Breath Mupirocin (Bactroban Ointment) 0 gm TOP BID [facility] Last Admin: 10/22/16 18:21 Dose: 1 applic Nicotine (Nicoderm Cq) 1 patch TD DAILY [facility] Last Admin: 10/22/16 10:08 Dose: Not Given Nystatin/Triamcinolone Acetonide (Nystatin/Triamcinolone Cream) 0 ea TOP BID [facility] Last Admin: 10/22/16 10:07 Dose: 1 applic Pantoprazole Sodium (Protonix Ec Tab) 40 mg PO 0600 [facility] Last Admin: 10/23/16 05:40 Dose: 40 mg Sitagliptin Phosphate (Januvia) 50 mg PO DAILY [facility] Last Admin: 10/22/16 10:07 Dose: Not Given Tiotropium [place] (Spiriva) 18 mcg IH DAILY [facility] Last Admin: 10/22/16 10:05 Dose: 18 mcg Valsartan (Diovan) 320 mg PO DAILY [facility] Last Admin: 10/21/16 09:54 Dose: Not Given Warfarin Sodium (Coumadin) 4 mg PO 1800 [facility] PRN Reason: Protocol Last Admin: 10/22/16 17:35 Dose: 4 mg - Labs Labs: 10/22/16 04:57 10/22/16 15:15 PT 24.5 Seconds (9.9-11.8) H 10/22/16 04:57 INR 2.27 (0.93-1.08) H 10/22/16 04:57 APTT 45.1 Seconds (23.7-30.8) H 10/22/16 04:57 - Constitutional Appears: Non-toxic, No Acute Distress - Head Exam Head Exam: NORMAL INSPECTION - ENT Exam ENT Exam: Mucous Membranes Moist - Neck Exam Neck Exam: absent: Meningismus - Respiratory Exam Respiratory Exam: Decreased Breath Sounds - Cardiovascular Exam Cardiovascular Exam: +S1, +S2 - GI/Abdominal Exam GI & Abdominal Exam: Soft. absent: Tenderness Assessment and Plan - Assessment and Plan (Free Text) Plan: Assessment Systemic Inflammatory Response Syndrome, consider sepsis from UTI, and cellulitis of the left foot, slowly improving history of infected diabetic ulceration of the left hallux associated with trauma with probable peripheral vascular disease, growing MRSA - no evidence of osteomyelitis on MRI - S/P arthrectomy and angioplasty of left sided lower extremity vasculature S/P Sepsis with acute hypoxic respiratory failure secondary to left-sided healthcare-associated pneumonia with possible gram positive cocci and/or gram negative bacilli, clinically improved and S/P treatment as well as sepsis from persistent methicillin-resistant coagulase negative staph bacteremia , probably port infection S/P removal of the port history of Group G Strep bacteremia history of E. coli UTI history of healthcare-associated pneumonia acute renal failure obesity with BMI 38 CAD GERD arthritis history of bilateral knee replacements chronic CHF COPD DM history of breast CA History of Strep bovis bacteremia (2012) S/P Port-a-cath placement Plan changed Vancomycin to Zyvox because of increase in creatinine; changed Zosyn to Merrem day 3; toe cx growing E. faecalis and Pseudomonas, urine growing Klebsiella; reviewed CXR which does not show infiltrates will continue to monitor clinically
--- NOTE | 2016-10-23 10:00 | CARD ---
APPROVED REPORT EKG Measurement Heart [id number] <Conclusion> Atrial fibrillation RAD Septal infarct, age undetermined IVCD STTW changes
--- NOTE | 2016-10-23 10:02 | CP.PCM.PN ---
<Khris Rowland - Last Filed: 10/23/16 09:57> Subjective - Date & Time of Evaluation Date of Evaluation: 10/23/16 Time of Evaluation: 09:25 - Subjective Subjective: 71 year old female pt seen at bedside today concerning for left hallux ulceration, leg erythema, and right digital ischemia. Pt sleeping comfortably in bed at time of visit,and alert. Continues to complain of tenderness to the toe today, though no illicitation of pain during manipulation of left lower extremity. Patient denies chest pain, shortness of breath, headache, fever, chills, cough, nausea, vomiting, abdominal pain, or other complaints Objective - Vital Signs/Intake and Output Vital Signs (last 24 hours): Temp Pulse Resp BP Pulse Ox 98.9 F 80 23 157/81 H 93 L 10/22/16 20:00 10/23/16 08:01 10/23/16 07:01 10/23/16 07:01 10/23/16 07:01 Intake and Output: 10/23/16 10/23/16 06:59 18:59 Intake Total 1460 Output Total 1100 Balance 360 - Medications Medications: Current Medications Acetaminophen (Tylenol 325mg Tab) 650 mg PO Q6H PRN PRN Reason: Fever >100.4 F Last Admin: 10/21/16 16:29 Dose: 650 mg Aspirin (Ecotrin) 81 mg PO 0800 [facility] Last Admin: 10/22/16 08:43 Dose: 81 mg Furosemide (Lasix) 40 mg IVP Q12 [facility] Guaifenesin (Robitussin) 200 mg PO Q4H PRN PRN Reason: Cough and congestion Last Admin: 10/21/16 23:42 Dose: 200 mg Hydralazine HCl (Apresoline) 50 mg PO BID [facility] Last Admin: 10/21/16 18:32 Dose: Not Given Dextrose/Sodium Chloride (Dextrose 5%/0.9% Ns 1000 Ml) 1,000 mls @ 75 mls/hr IV .[id number] [facility] Last Admin: 10/22/16 16:22 Dose: 75 mls/hr Meropenem 1g/NS 100mL IVPB (Meropenem 1g/Ns 100ml Ivpb) 1 gm in 100 mls @ 100 mls/hr IVPB Q8 [facility] PRN Reason: Protocol Last Admin: 10/23/16 05:36 Dose: 100 mls/hr Linezolid (Zyvox 600mg/300ml D5w) 600 mg in 300 mls @ 200 mls/hr IVPB Q12 [facility] PRN Reason: Protocol Last Admin: 10/22/16 21:32 Dose: 200 mls/hr Insulin Human Lispro (Humalog Med) 0 units SC ACHS [facility] PRN Reason: Protocol Last Admin: 10/23/16 07:49 Dose: Not Given Isosorbide Mononitrate (Imdur) 60 mg PO DAILY [facility] Last Admin: 10/21/16 09:54 Dose: Not Given Lactic Acid (Lac-Hydrin 12% Lotion (225 G)) 0 gm EXT BID [facility] Last Admin: 10/22/16 10:08 Dose: 1 applic Levalbuterol HCl (Xopenex) 1.25 mg IH [id number] PRN PRN Reason: Shortness of Breath Metoprolol Tartrate (Lopressor) 25 mg PO BID [facility] Mupirocin (Bactroban Ointment) 0 gm TOP BID [facility] Last Admin: 10/22/16 18:21 Dose: 1 applic Nicotine (Nicoderm Cq) 1 patch TD DAILY [facility] Last Admin: 10/22/16 10:08 Dose: Not Given Nystatin/Triamcinolone Acetonide (Nystatin/Triamcinolone Cream) 0 ea TOP BID [facility] Last Admin: 10/22/16 10:07 Dose: 1 applic Pantoprazole Sodium (Protonix Ec Tab) 40 mg PO 0600 [facility] Last Admin: 10/23/16 05:40 Dose: 40 mg Tiotropium Adah (Spiriva) 18 mcg IH DAILY [facility] Last Admin: 10/22/16 10:05 Dose: 18 mcg Valsartan (Diovan) 320 mg PO DAILY [facility] Last Admin: 10/21/16 09:54 Dose: Not Given Warfarin Sodium (Coumadin) 4 mg PO 1800 [facility] PRN Reason: Protocol Last Admin: 10/22/16 17:35 Dose: 4 mg - Labs Labs: 10/23/16 05:40 10/23/16 05:40 PT 28.0 Seconds (9.9-11.8) H 10/23/16 05:40 INR 2.59 (0.93-1.08) H 10/23/16 05:40 APTT 39.9 Seconds (23.7-30.8) H 10/23/16 05:40 - Constitutional Appears: Well, No Acute Distress - Extremities Exam Additional comments: Lower extremity focused exam: Vasc: DP and PT pulses non-palpable B/L secondary to edema, Distal anterior tibial artery flow is palpable. +2 pitting edema noted to left lower extremity. CFT < 4 seconds to digits 1-5 B/L. Skin temperature runs hot to cool from proximal to distal on left lower extremity; runs warm to cold on right foot. Derm: Left: Partial thickness ulceration with fibrotic central eschar noted to medial aspect of left hallux measuring approximately 3.8 cm x 3.2cm. Marita-wound margins are macerated. No active drainage or exudate noted. No malodor, no fluctuance or other clinical signs of infection are noted at this time. Left lower leg non-blanchable erythema and callor extending from supra-malleolar level to tibial tuberosity circumfrentially. Right: Plantar distal tuft of hallux and 5th digit show ischemic changes, cold to touch, and darkening Neuro: Gross sensation diminished b/l Ortho: Mild tenderness noted on palpation of dorsal hallux - Neurological Exam Neurological Exam: Alert, Awake, Oriented x3 Assessment and Plan - Assessment and Plan (Free Text) Assessment: 71 year old female with 1) Left hallux ulceration secondary to DM and PVD. 2) Left lower leg cellulits. 3) Rigth foot ischemia of 1st and 5th digits secondary to PVD. Plan: Pt seen and evaluated at bedside with attending, Dr. Henriquez, present. Chart, labs and vitals reviewed; pt is afebrile, WBC= 9.1K. -Arterial duplex scan shows distal SFA, popliteal, and Trifucation disease, and significant diffuse calcifications of lower extremity vasculature. Left hallux cleansed with sterile water, dressed with Bactroban, xeroform and DSD. No compressive ba applied. Erythematous margins and intensity of left leg is: static-no change. Will continue to monitor left leg cellulits, limitation on decrease of symptoms despite antibiotic therapy and decrease of WBC indicates vascular compromise. Continue IV abx per ID. Vascular consult requested for potential intervention recommendations. Podiatry will continue to follow while inhouse. <Deric Henriquez - Last Filed: 10/24/16 11:13> Objective - Vital Signs/Intake and Output Vital Signs (last 24 hours): Temp Pulse Resp BP Pulse Ox 97.7 F 76 18 110/68 89 L 10/23/16 16:00 10/24/16 08:00 10/24/16 10:00 10/24/16 10:47 10/24/16 08:00 Intake and Output: 10/24/16 10/24/16 06:59 18:59 Intake Total 736 Output Total 1400 Balance -664 - Medications Medications: Current Medications Acetaminophen (Tylenol 325mg Tab) 650 mg PO Q6H PRN PRN Reason: Fever >100.4 F Last Admin: 10/21/16 16:29 Dose: 650 mg Aspirin (Ecotrin) 81 mg PO 0800 [facility] Last Admin: 10/24/16 08:53 Dose: Not Given Furosemide (Lasix) 40 mg IVP Q12 [facility] Last Admin: 10/24/16 10:40 Dose: 40 mg Guaifenesin (Robitussin) 200 mg PO Q4H PRN PRN Reason: Cough and congestion Last Admin: 10/21/16 23:42 Dose: 200 mg Hydralazine HCl (Apresoline) 50 mg PO BID [facility] Last Admin: 10/21/16 18:32 Dose: Not Given Meropenem 1g/NS 100mL IVPB (Meropenem 1g/Ns 100ml Ivpb) 1 gm in 100 mls @ 100 mls/hr IVPB Q8 [facility] PRN Reason: Protocol Last Admin: 10/24/16 06:01 Dose: 100 mls/hr Linezolid (Zyvox 600mg/300ml D5w) 600 mg in 300 mls @ 200 mls/hr IVPB Q12 [facility] PRN Reason: Protocol Last Admin: 10/24/16 10:39 Dose: 200 mls/hr Insulin Human Lispro (Humalog Med) 0 units SC ACHS [facility] PRN Reason: Protocol Last Admin: 10/24/16 07:56 Dose: Not Given Isosorbide Mononitrate (Imdur) 60 mg PO DAILY [facility] Last Admin: 10/21/16 09:54 Dose: Not Given Lactic Acid (Lac-Hydrin 12% Lotion (225 G)) 0 gm EXT BID [facility] Last Admin: 10/24/16 10:41 Dose: 1 applic Levalbuterol HCl (Xopenex) 1.25 mg IH [id number] PRN PRN Reason: Shortness of Breath Last Admin: 10/23/16 21:11 Dose: 1.25 mg Metoprolol Tartrate (Lopressor) 25 mg PO BID [facility] Last Admin: 10/24/16 10:47 Dose: Not Given Mupirocin (Bactroban Ointment) 0 gm TOP BID [facility] Last Admin: 10/23/16 17:10 Dose: 1 applic Nicotine (Nicoderm Cq) 1 patch TD DAILY [facility] Last Admin: 10/24/16 10:39 Dose: 1 patch Nystatin/Triamcinolone Acetonide (Nystatin/Triamcinolone Cream) 0 ea TOP BID [facility] Last Admin: 10/24/16 10:41 Dose: 1 applic Pantoprazole Sodium (Protonix Ec Tab) 40 mg PO 0600 [facility] Last Admin: 10/24/16 06:01 Dose: 40 mg Risperidone (Risperdal Tab) 0.25 mg PO BID [facility] PRN Reason: Protocol Last Admin: 10/24/16 10:37 Dose: 0.25 mg Tiotropium Adah (Spiriva) 18 mcg IH DAILY [facility] Last Admin: 10/24/16 10:37 Dose: 18 mcg Valsartan (Diovan) 320 mg PO DAILY [facility] Last Admin: 10/21/16 09:54 Dose: Not Given Warfarin Sodium (Coumadin) 4 mg PO 1800 [facility] PRN Reason: Protocol Last Admin: 10/23/16 17:44 Dose: 4 mg - Labs Labs: 10/24/16 05:35 10/24/16 05:35 PT 34.8 Seconds (9.9-11.8) H* 10/24/16 05:35 INR 3.22 (0.93-1.08) H 10/24/16 05:35 APTT 39.9 Seconds (23.7-30.8) H 10/23/16 05:40 Attending/Attestation - Attestation I have personally seen and examined this patient.: Yes I have fully participated in the care of the patient.: Yes I have reviewed all pertinent clinical information, including history, physical exam and plan: Yes
[2016-10-23] MEDS: Tiotropium 18 mcg Cap For Inhalation IH SCH (10:12)
[2016-10-23] MEDS: Ammonium Lactate 12% Lotion (225 g) EXT SCH ×2 (10:15→17:10)
[2016-10-23] MEDS: Linezolid 600 mg in D5W 300 ml 600 MG/300 ML BAG IVPB SCH ×2 (10:18→21:06)
[2016-10-23] MEDS: Dextrose 5%/0.9% NS 1,000 ML IV SCH (10:20)
[2016-10-23] MEDS: Nystatin-Triamcinolone Cream(30 gm) TOP SCH ×2 (10:25→17:11)
[2016-10-23 10:40] LABS: % IRON SATURATION 5 % (20-55); IRON 17 ug/dL (45-180); TOTAL IRON BINDING CAPACITY 384 ug/dL (265-497)
--- NOTE | 2016-10-23 12:44 | PN ---
DATE: 10/23/2016 SUBJECTIVE: The patient is seen in the ICU. She is awake. She is alert. She is sitting up in bed. She is complaining of pain in her left toe. She also appears to be mildly short of breath. Tachypneic. PHYSICAL EXAMINATION: GENERAL: Obese elderly lady, sitting in bed in the ICU. VITAL SIGNS: Blood pressure 157/81, heart rate 89, respiratory rate 23, and temperature 98.9. HEENT: Normocephalic, atraumatic, positive pallor. NECK: Supple. No JVD. LUNGS: Bilateral rhonchi, distant breath sounds, bilateral equal expansion. CARDIAC: S1 and S2, regular rate and rhythm. No murmur, no rub. ABDOMEN: Obese, distended, soft, nontender. Bowel sounds present. EXTREMITIES: Severe erythema of the left lower extremity, ulcer of the great toe, edema of the left lower extremity. INTAKE AND OUTPUT: 5460/2250. LABORATORY DATA: WBC 9.1, hemoglobin 9.6, hematocrit 32, platelets 247. Sodium 141, potassium 4.3, chloride 107, CO2 25, BUN 36, creatinine 1.1, glucose 108, calcium 9.0, phosphorus 3.9, magnesium 2.4, troponin 0.26, albumin 3.7. TSH 0.87. Urine sodium 67, urine creatinine 39, INR 2.5, pH 7.24, PO2 68, and pCO2 of 54. Urine culture Klebsiella. Wound culture pseudomonas and enterococcus. Blood cultures no growth so far. Chest x-ray, defuse bilateral alveolar infiltrates, possible pulmonary edema. No pleural effusion. CURRENT MEDICATIONS: Apresoline 50 mg b.i.d., Bactroban, Coumadin 4 mg, D5 normal saline at 75, Diovan 320 not given, Ecotrin, Humalog, Imdur 60 mg, Lasix 40 IV q. 12 hours, Lopressor, meropenem 1 g q. 8 hours, Nicoderm CQ, Nystatin, Protonix, Robitussin, Spiriva, Tylenol, Xopenex, Zyvox 600 mg q. 12 hours. ASSESSMENT: 1. Status post septic shock, multiorgan dysfunction, acute kidney injury, acute coronary syndrome. 2. Klebsiella urinary tract infection. 3. Pseudomonas and enterococcal wound infection. 4. Acute tubular necrosis in the setting of sepsis and hypotension, slowly resolving. 5. Sever anemia. 6. Morbid obesity. 7. Wmi-lxijpab-vlnziyisa diabetes mellitus. 8. Hypertension. 9. Coronary artery disease. 10. Peripheral arterial disease, ischemic ulcer left great toe. 11. Status post one unit of blood transfusion. PLAN: 1. Discontinue IV fluids. 2. Agree with Lasix in light of pulmonary edema, respiratory failure. 3. Antibiotics as per ID recommendations. 4. antibiotics for creatinine clearance about 50 mL per minute. 5. Check iron stores. 6. Check stool occult. 7. Agree with consult with Dr. Maldonado Barnett for evaluation of peripheral arterial disease. 8. Avoid nephrotoxins. 9. Okay to restart Diovan. 10. Case discussed with ICU staff at length, case discussed with Podiatry, case discussed with ICU residents. More than 35 minutes spent in the care of this critically ill patient. Naomi Hinojosa MD
--- NOTE | 2016-10-23 13:14 | PN ---
DATE: 10/23/2016 CONSULTING PHYSICIAN: Cherry Sandra MD REASON FOR CONSULTATION: Positive troponin, admitted with altered mental status, history of CAD, history of chronic atrial fibrillation, COPD. SUBJECTIVE: The patient denies any chest pain, shortness of breath, any palpitation. OBJECTIVE: GENERAL: Lying comfortable in ICU room 128, bed 1, not in apparent distress. VITAL SIGNS: Temperature afebrile, heart rate is 80, blood pressure 127/81. HEENT: PERRLA, extraocular muscles intact. NECK: Supple. No carotid bruit. No thyromegaly. CHEST: Clear to auscultation. HEART: S1 and S2 irregular. ABDOMEN: Soft. EXTREMITIES: Clubbing and cyanosis negative. LABORATORY DATA: Blood workup as follows: WBC is 9.1, hemoglobin 9.6, hematocrit 31.9, platelet count 247. Chemistry shows sodium 141, potassium 4.3, chloride 107, carbon dioxide 25, anion gap of 13, BUN 36, creatinine 1.1. Troponin 0.26. Albumin 3.7, total protein 6.6, albumin and globulin ratio 1.3. Triglyceride of 166, cholesterol 172, LDL 119, HDL 28. TSH is 0.87. IMPRESSION: A 71-year-old female with past medical history significant for diabetes, hypertension, hyperlipidemia, morbid obesity, chronic obstructive pulmonary disease, active tobacco abuse, history of one vessel coronary artery disease status post cardiac catheterization [id number] years ago, right coronary artery totally occluded, very well collateralized from LAD, moderate aortic stenosis admitted with lethargy, possible sepsis, blood culture remains negative, but urine culture positive for Klebsiella pneumoniae. The wound culture is positive for Pseudomonas aeruginosa. History of chronic atrial fibrillation on anticoagulation, active tobacco abuse, moderate aortic stenosis by D[facility] dated 04/07/2016 done to rule out endocarditis. At that time, it showed ejection fraction 65%, trace aortic regurgitation, moderate aortic stenosis, valve area 1 cm2, mild TR, trace aortic regurgitation, [id number] mitral regurgitation. As mentioned, status post cardiac catheterization [id number] years ago, right coronary artery totally occluded, very well collateralized from LAD. Positive troponin most likely secondary to demand and supply and total chronic RCA and maximum troponin was 0.37 now the trend is down 0.27 asymptomatic. RECOMMENDATIONS: Continue aggressive medical treatment, continue anticoagulation for atrial fibrillation, goal is to keep 2 to 2.5. Continue p.r.n. hydralazine. Continue aspirin. Continue isosorbide nitrate. We will discontinue Plavix in view of blood thinner, in view of patient has already been on Coumadin and probably this is small leak of the troponin. I doubt it is a non-STEMI, it is probably secondary to demand and supply mismatch so I will discontinue Plavix, continue baby aspirin, continue Coumadin. Reviewed from the home medication, patient was on 5 mg of Coumadin, so yesterday Dr. Kirby adjusted to 4 mg, we will continue 4 mg. Repeat lab in the morning with troponin also to see the trend, if downward, we will just treat medically and patient is asymptomatic, we will continue broad-spectrum antibiotic. We will follow with you. Thank you Dr. Kirby for the opportunity in taking care of patient Esther Baxter. We will follow with you. Brianna Sandra MD cc: Edwige Kirby MD
--- NOTE | 2016-10-23 13:34 | PN ---
DATE: SUBJECTIVE: The patient is 71 years old seen and examined. Seemed to be lethargic, but arousable. As per nurse, did eat fair. PHYSICAL EXAMINATION VITAL SIGNS: She is afebrile. Pulse 62, respirations 13, blood pressure 143/65. LUNGS: Bilateral diffusely decreased breath sounds. HEART: S1 and S2, audible. ABDOMEN: Soft, obese, nontender. No rebound. No guarding. NEUROLOGIC: She is sleepy but arousable, able to move all extremities. Bilateral leg +2 edema. Right leg banks is deep red because of cellulitis, while left big toe also has erythema. LABORATORY DATA: WBC 9.1, hemoglobin 9.6, hematocrit 31.9, platelets 247. PT/INR 28/2.59. Chemistry: Sodium 141, potassium 4.3, chloride 107, CO2 25, BUN 26, creatinine 1.1, blood sugar of 108, troponin 0.26, iron is 17, and saturation is 5%. ASSESSMENT AND PLAN: 1. Chronic obstructive pulmonary disease excerebration. 2. Bilateral leg cellulitis. 3. Carbon dioxide narcosis. 4. Renal insufficiency. 5. Chronic atrial fibrillation. 6. Coronary artery disease. PLAN: We will continue on current dose of Coumadin. Continue her on Diovan and monitor blood sugar. Continue on Lasix. She is receiving meropenem. She is being cared by manager customer for her left big toe wound. The patient has iron deficiency because of AVMs and chronic blood loss. I will give her Venofer, out of bed to chair. Edwige Kirby MD
--- NOTE | 2016-10-23 15:56 | CP.PCM.PN ---
<PAULA KWOK - Last Filed: 10/23/16 15:50> Subjective - Date & Time of Evaluation Date of Evaluation: 10/23/16 Time of Evaluation: 07:30 - Subjective Subjective: Paula Kwok DO PGY1 - ICU Progress Note Patient seen and examined at beside. Nurse reports that overnight, patient repeatedly removed her BIPAP mask and was pulling out her IV line. She was confused, and unaware that she was in the hospital, and did not understand the need for BIPAP, IV, and the treatment she was receiving. Soft restraints were ordered, and she slept well after 2AM on BIPAP. She continued to maintain her O2 sat on 30% by BIPAP, and became normotensive, after episodes of hypotension yesterday. She has also remained euglycemic after one episode of hypoglycemia yesterday. Today, she denies any CP, MARX, abdominal pain, N/V/D. She admits to some SOB on 3L O2 by NC. Objective - Vital Signs/Intake and Output Vital Signs (last 24 hours): Temp Pulse Resp BP Pulse Ox 97.9 F 90 41 H 157/89 H 92 L 10/23/16 08:00 10/23/16 14:02 10/23/16 14:02 10/23/16 14:02 10/23/16 14:02 Intake and Output: 10/23/16 10/23/16 06:59 18:59 Intake Total 1460 Output Total 1100 Balance 360 - Medications Medications: Current Medications Acetaminophen (Tylenol 325mg Tab) 650 mg PO Q6H PRN PRN Reason: Fever >100.4 F Last Admin: 10/21/16 16:29 Dose: 650 mg Aspirin (Ecotrin) 81 mg PO 0800 [facility] Last Admin: 10/23/16 08:00 Dose: 81 mg Furosemide (Lasix) 40 mg IVP Q12 [facility] Last Admin: 10/23/16 10:14 Dose: 40 mg Guaifenesin (Robitussin) 200 mg PO Q4H PRN PRN Reason: Cough and congestion Last Admin: 10/21/16 23:42 Dose: 200 mg Hydralazine HCl (Apresoline) 50 mg PO BID [facility] Last Admin: 10/21/16 18:32 Dose: Not Given Meropenem 1g/NS 100mL IVPB (Meropenem 1g/Ns 100ml Ivpb) 1 gm in 100 mls @ 100 mls/hr IVPB Q8 [facility] PRN Reason: Protocol Last Admin: 10/23/16 14:14 Dose: 100 mls/hr Linezolid (Zyvox 600mg/300ml D5w) 600 mg in 300 mls @ 200 mls/hr IVPB Q12 [facility] PRN Reason: Protocol Last Admin: 10/23/16 10:18 Dose: 200 mls/hr Insulin Human Lispro (Humalog Med) 0 units SC ACHS [facility] PRN Reason: Protocol Last Admin: 10/23/16 12:23 Dose: 1 units Isosorbide Mononitrate (Imdur) 60 mg PO DAILY [facility] Last Admin: 10/21/16 09:54 Dose: Not Given Lactic Acid (Lac-Hydrin 12% Lotion (225 G)) 0 gm EXT BID [facility] Last Admin: 10/23/16 10:15 Dose: 1 applic Levalbuterol HCl (Xopenex) 1.25 mg IH [id number] PRN PRN Reason: Shortness of Breath Metoprolol Tartrate (Lopressor) 25 mg PO BID [facility] Last Admin: 10/23/16 10:13 Dose: 25 mg Mupirocin (Bactroban Ointment) 0 gm TOP BID [facility] Last Admin: 10/23/16 10:30 Dose: 1 applic Nicotine (Nicoderm Cq) 1 patch TD DAILY [facility] Last Admin: 10/23/16 10:17 Dose: 1 patch Nystatin/Triamcinolone Acetonide (Nystatin/Triamcinolone Cream) 0 ea TOP BID [facility] Last Admin: 10/23/16 10:25 Dose: 1 applic Pantoprazole Sodium (Protonix Ec Tab) 40 mg PO 0600 [facility] Last Admin: 10/23/16 05:40 Dose: 40 mg Tiotropium [place] (Spiriva) 18 mcg IH DAILY [facility] Last Admin: 10/23/16 10:12 Dose: 18 mcg Valsartan (Diovan) 320 mg PO DAILY [facility] Last Admin: 10/21/16 09:54 Dose: Not Given Warfarin Sodium (Coumadin) 4 mg PO 1800 [facility] PRN Reason: Protocol Last Admin: 10/22/16 17:35 Dose: 4 mg - Labs Labs: 10/23/16 05:40 10/23/16 05:40 PT 28.0 Seconds (9.9-11.8) H 10/23/16 05:40 INR 2.59 (0.93-1.08) H 10/23/16 05:40 APTT 39.9 Seconds (23.7-30.8) H 10/23/16 05:40 - Constitutional Appears: No Acute Distress, Confused, Chronically Ill - Head Exam Head Exam: ATRAUMATIC, NORMOCEPHALIC - Eye Exam Eye Exam: EOMI, Normal appearance - ENT Exam ENT Exam: Mucous Membranes Moist - Neck Exam Neck Exam: Normal Inspection - Respiratory Exam Respiratory Exam: Decreased Breath Sounds, Prolonged Expiratory Phase, Rales, Rhonchi - Cardiovascular Exam Cardiovascular Exam: Irregular Rhythm, +S1, +S2, Murmur (known hx of aortic stenosis) - GI/Abdominal Exam GI & Abdominal Exam: Soft, Normal Bowel Sounds. absent: Tenderness - Extremities Exam Extremities Exam: Pedal Edema, Tenderness Additional comments: LLE tenderness, bandaged, left toe dressed - Neurological Exam Neurological Exam: Awake Neuro motor strength exam: Left Upper Extremity: 5, Right Upper Extremity: 5 Additional comments: Somewhat lethargic. Unresponsive, but unsure if it is due to mental status or patient's frustration with situation - Psychiatric Exam Psychiatric exam: Depressed, Flat Affect - Skin Skin Exam: Dry, Intact Additional comments: Except as noted in extremities Assessment and Plan - Assessment and Plan (Free Text) Assessment: 71 F with PMHx morbid-obesity, diabetes, HTN, HLD, CAD, A-fib on coumadin, COPD , pulm HTN, CHF (EF 52%), chronic anemia, and hx GI bleed admitted to the ICU for severe sepsis 2/2 to cellulitis and gangrenous left toe. Pt was fluid resuscitated initially with resolution of lactic acidosis and improved mental status. Transferred then readmitted to the ICU for hypercapnic respiratory failure. Pt was placed on BIPAP after being found to be acidotic 2/2 retaining co2. Plan: Neuro: - Somewhat confused, tired, but arousable, refusing to answer questions so unable to assess orientation - Continue to monitor Pulm: - Remains acidotic and hypercapnic on ABG, hypercapnia improving slightly, started on Bipap 03/09/29 last night. Patient is refusing BIPAP, supplementing with O2 by NC when she takes off the BIPAP mask - New CXR shows likely pulmonary edema. - Start lasix 40 Q12 for cardiogenic pulmonary edema - Goal SaO2 > 88% considering history of COPD - Spiriva, Xopenex prn q6 Cardio: - positive trop in the setting of severe sepsis on admission - afib anticoagulated with coumadin, INR therapeutic - Continue home ASA - Hydralazine, Imdur, and Diovan held on account of episode of hypotension - Start Metoprolol 25 mg BID per cardio - Maintain MAP > 65 - Hold fluids, pt no longer hypotensive - Cardio consulted (Boaz), all recs appreciated GI: - tolerating diet - Protonix GI ppx Renal: - Monitor Renal fcn - Hold IVF due to pulmonary congestion, monitor fluid status closely - Monitor I's and O's - Monitor and replete electrolytes as needed MSK: - Left 1st toe ulceration, necrotic-appearing base, b/l cellulitis - Podiatry Dr. Hoffman consulted, wrapped ba lle, dressed with bactroban xeroform and dsd Heme: - Hgb 9.6,stable - INR 2.59, - therapeutic INR covers for DVT ppx ID: - Afebrile, leukocytosis improved since yesterday - Merrem and Zyvox IV - ID Dr. Obrien consulted and following Endo: - Holding PO DM meds due to hypoglycemia yesterday - Insulin Med ISS and Accuchecks ACHS and Q4 - Maintain blood glucose 140-180 Patient seen, reviewed, and discussed with attending <Kandy MERLOS,Braden H - Last Filed: 10/23/16 16:40> Objective - Vital Signs/Intake and Output Vital Signs (last 24 hours): Temp Pulse Resp BP Pulse Ox 97.7 F 83 19 139/51 L 90 L 10/23/16 16:00 10/23/16 16:18 10/23/16 16:18 10/23/16 16:18 10/23/16 16:18 Intake and Output: 10/23/16 10/23/16 06:59 18:59 Intake Total 1460 Output Total 1100 Balance 360 - Medications Medications: Current Medications Acetaminophen (Tylenol 325mg Tab) 650 mg PO Q6H PRN PRN Reason: Fever >100.4 F Last Admin: 10/21/16 16:29 Dose: 650 mg Aspirin (Ecotrin) 81 mg PO 0800 [facility] Last Admin: 10/23/16 08:00 Dose: 81 mg Furosemide (Lasix) 40 mg IVP Q12 [facility] Last Admin: 10/23/16 10:14 Dose: 40 mg Guaifenesin (Robitussin) 200 mg PO Q4H PRN PRN Reason: Cough and congestion Last Admin: 10/21/16 23:42 Dose: 200 mg Hydralazine HCl (Apresoline) 50 mg PO BID [facility] Last Admin: 10/21/16 18:32 Dose: Not Given Meropenem 1g/NS 100mL IVPB (Meropenem 1g/Ns 100ml Ivpb) 1 gm in 100 mls @ 100 mls/hr IVPB Q8 [facility] PRN Reason: Protocol Last Admin: 10/23/16 14:14 Dose: 100 mls/hr Linezolid (Zyvox 600mg/300ml D5w) 600 mg in 300 mls @ 200 mls/hr IVPB Q12 [facility] PRN Reason: Protocol Last Admin: 10/23/16 10:18 Dose: 200 mls/hr Insulin Human Lispro (Humalog Med) 0 units SC ACHS [facility] PRN Reason: Protocol Last Admin: 10/23/16 12:23 Dose: 1 units Isosorbide Mononitrate (Imdur) 60 mg PO DAILY [facility] Last Admin: 10/21/16 09:54 Dose: Not Given Lactic Acid (Lac-Hydrin 12% Lotion (225 G)) 0 gm EXT BID [facility] Last Admin: 10/23/16 10:15 Dose: 1 applic Levalbuterol HCl (Xopenex) 1.25 mg IH [id number] PRN PRN Reason: Shortness of Breath Metoprolol Tartrate (Lopressor) 25 mg PO BID [facility] Last Admin: 10/23/16 10:13 Dose: 25 mg Mupirocin (Bactroban Ointment) 0 gm TOP BID [facility] Last Admin: 10/23/16 10:30 Dose: 1 applic Nicotine (Nicoderm Cq) 1 patch TD DAILY [facility] Last Admin: 10/23/16 10:17 Dose: 1 patch Nystatin/Triamcinolone Acetonide (Nystatin/Triamcinolone Cream) 0 ea TOP BID [facility] Last Admin: 10/23/16 10:25 Dose: 1 applic Pantoprazole Sodium (Protonix Ec Tab) 40 mg PO 0600 [facility] Last Admin: 10/23/16 05:40 Dose: 40 mg Tiotropium [place] (Spiriva) 18 mcg IH DAILY [facility] Last Admin: 10/23/16 10:12 Dose: 18 mcg Valsartan (Diovan) 320 mg PO DAILY [facility] Last Admin: 10/21/16 09:54 Dose: Not Given Warfarin Sodium (Coumadin) 4 mg PO 1800 [facility] PRN Reason: Protocol Last Admin: 10/22/16 17:35 Dose: 4 mg - Labs Labs: 10/23/16 05:40 10/23/16 05:40 PT 28.0 Seconds (9.9-11.8) H 10/23/16 05:40 INR 2.59 (0.93-1.08) H 10/23/16 05:40 APTT 39.9 Seconds (23.7-30.8) H 10/23/16 05:40 Attending/Attestation - Attestation I have personally seen and examined this patient.: Yes I have fully participated in the care of the patient.: Yes I have reviewed all pertinent clinical information, including history, physical exam and plan: Yes Notes (Text): 10/23/16 16:37 71 y/o F w/ hypercarbic resp failure in the setting of COPD Overnight was non compliants w/ BIPAP and noted to have elevated pco2 and low PH Hypoxia also worsened overnight due to increased volume given . Lasix 40mg given, urine output 1L thus far and WOb and hypoxia improved. Otherwise oxygen to be titrated to keep o2 sat> 88%. Continue antibiotic treatment per ID DVT P A fib rate controlled. cc time 55 min
[2016-10-23] MEDS: Levalbuterol 1.25 MG/3 ML Inhal Soln UD IH PRN (21:11)
[2016-10-24] MEDS: Pantoprazole 40 mg EC Tab PO SCH (06:01)
[2016-10-24] MEDS: Meropenem 1g/NS 100mL IVPB 1 GM/100 ML PIGGYBACK IVPB SCH ×3 (06:01→22:50)
[2016-10-24 06:50] LABS: BASO # 0.01 K/mm3 (0.0-2.0); BASO % 0.1 % (0.0-3.0); EOS # 0.2 (0.0-0.7); EOS % 2.1 % (1.5-5.0); GRAN # 5.62 (1.4-6.5); GRAN % 77.2 % (50.0-68.0); HEMOGLOBIN 9.8 gm/dL (12.0-16.0); LYMPH # 0.8 (1.2-3.4); LYMPH % 10.6 % (22.0-35.0); MEAN CELL VOLUME 91.1 fL (80.0-105.0); MEAN CORPUSCULAR HEMOGLOBIN 28.1 pg (25.0-35.0); MEAN CORPUSCULAR HGB CONC 30.8 g/dl (31.0-37.0); MONO # 0.7 (0.1-0.6); PLATELET COUNT 248 10^3/uL (120.0-450.0); RBC 3.49 10^6/uL (3.5-6.1); RED CELL DISTRIBUTION WIDTH 17.6 % (11.5-14.5); WHITE BLOOD COUNT 7.3 10^3/ul (4.5-11.0)
[2016-10-24 06:51] LABS: INR 3.22 (0.93-1.08); PROTHROMBIN TIME 34.8 Seconds (9.9-11.8)
[2016-10-24 07:28] LABS: ALB/GLOB RATIO 1.5 (1.1-1.8); ALBUMIN 3.8 g/dL (3.0-4.8); ALT/SGPT 24 U/L (7-56); AST/SGOT 21 U/L (15-39); BLOOD UREA NITROGEN 30 mg/dL (7-21); CALCIUM 9.6 mg/dL (8.4-10.5); GFR AFRICAN-AMERICAN > 60; GFR NON-AFRICAN AMERICAN 55; MAGNESIUM 1.9 mg/dL (1.7-2.2)
[2016-10-24 07:33] LABS: TROPONIN I 0.18 ng/mL
[2016-10-24] MEDS: Insulin Lispro (humaLOG) MEDIUM Coverage SC SCH ×4 (07:56→22:00)
--- NOTE | 2016-10-24 09:40 | CP.PCM.PN ---
Subjective - Date & Time of Evaluation Date of Evaluation: 10/24/16 Time of Evaluation: 09:20 - Subjective Subjective: Comfortable, not in distress, still with left leg pain, no fevers overnight, breathing better. Objective - Vital Signs/Intake and Output Vital Signs (last 24 hours): Temp Pulse Resp BP Pulse Ox 97.7 F 88 23 134/74 100 10/23/16 16:00 10/24/16 06:01 10/24/16 06:01 10/24/16 06:01 10/24/16 06:01 Intake and Output: 10/23/16 10/24/16 18:59 06:59 Intake Total 1265 736 Output Total 1500 1400 Balance -235 -664 - Medications Medications: Current Medications Acetaminophen (Tylenol 325mg Tab) 650 mg PO Q6H PRN PRN Reason: Fever >100.4 F Last Admin: 10/21/16 16:29 Dose: 650 mg Aspirin (Ecotrin) 81 mg PO 0800 [facility] Last Admin: 10/23/16 08:00 Dose: 81 mg Furosemide (Lasix) 40 mg IVP Q12 [facility] Last Admin: 10/23/16 21:03 Dose: 40 mg Guaifenesin (Robitussin) 200 mg PO Q4H PRN PRN Reason: Cough and congestion Last Admin: 10/21/16 23:42 Dose: 200 mg Hydralazine HCl (Apresoline) 50 mg PO BID [facility] Last Admin: 10/21/16 18:32 Dose: Not Given Meropenem 1g/NS 100mL IVPB (Meropenem 1g/Ns 100ml Ivpb) 1 gm in 100 mls @ 100 mls/hr IVPB Q8 [facility] PRN Reason: Protocol Last Admin: 10/24/16 06:01 Dose: 100 mls/hr Linezolid (Zyvox 600mg/300ml D5w) 600 mg in 300 mls @ 200 mls/hr IVPB Q12 [facility] PRN Reason: Protocol Last Admin: 10/23/16 21:06 Dose: 200 mls/hr Insulin Human Lispro (Humalog Med) 0 units SC ACHS [facility] PRN Reason: Protocol Last Admin: 10/23/16 21:42 Dose: Not Given Isosorbide Mononitrate (Imdur) 60 mg PO DAILY [facility] Last Admin: 10/21/16 09:54 Dose: Not Given Lactic Acid (Lac-Hydrin 12% Lotion (225 G)) 0 gm EXT BID [facility] Last Admin: 10/23/16 17:10 Dose: 1 applic Levalbuterol HCl (Xopenex) 1.25 mg IH [id number] PRN PRN Reason: Shortness of Breath Last Admin: 10/23/16 21:11 Dose: 1.25 mg Metoprolol Tartrate (Lopressor) 25 mg PO BID [facility] Last Admin: 10/23/16 17:35 Dose: 25 mg Mupirocin (Bactroban Ointment) 0 gm TOP BID [facility] Last Admin: 10/23/16 17:10 Dose: 1 applic Nicotine (Nicoderm Cq) 1 patch TD DAILY [facility] Last Admin: 10/23/16 10:17 Dose: 1 patch Nystatin/Triamcinolone Acetonide (Nystatin/Triamcinolone Cream) 0 ea TOP BID [facility] Last Admin: 10/23/16 17:11 Dose: 1 applic Pantoprazole Sodium (Protonix Ec Tab) 40 mg PO 0600 [facility] Last Admin: 10/24/16 06:01 Dose: 40 mg Tiotropium [place] (Spiriva) 18 mcg IH DAILY [facility] Last Admin: 10/23/16 10:12 Dose: 18 mcg Valsartan (Diovan) 320 mg PO DAILY [facility] Last Admin: 10/21/16 09:54 Dose: Not Given Warfarin Sodium (Coumadin) 4 mg PO 1800 [facility] PRN Reason: Protocol Last Admin: 10/23/16 17:44 Dose: 4 mg - Labs Labs: 10/23/16 05:40 10/23/16 05:40 PT 28.0 Seconds (9.9-11.8) H 10/23/16 05:40 INR 2.59 (0.93-1.08) H 10/23/16 05:40 APTT 39.9 Seconds (23.7-30.8) H 10/23/16 05:40 - Constitutional Appears: Non-toxic, No Acute Distress - Head Exam Head Exam: NORMAL INSPECTION - Neck Exam Neck Exam: absent: Meningismus - Respiratory Exam Respiratory Exam: Decreased Breath Sounds - Cardiovascular Exam Cardiovascular Exam: +S1, +S2 - GI/Abdominal Exam GI & Abdominal Exam: Soft. absent: Tenderness - Extremities Exam Additional comments: left foot with dry dressings in place; swelling is better Assessment and Plan - Assessment and Plan (Free Text) Plan: Assessment Systemic Inflammatory Response Syndrome, consider sepsis from UTI, and cellulitis of the left foot, slowly improving history of infected diabetic ulceration of the left hallux associated with trauma with probable peripheral vascular disease, growing MRSA - no evidence of osteomyelitis on MRI - S/P arthrectomy and angioplasty of left sided lower extremity vasculature S/P Sepsis with acute hypoxic respiratory failure secondary to left-sided healthcare-associated pneumonia with possible gram positive cocci and/or gram negative bacilli, clinically improved and S/P treatment as well as sepsis from persistent methicillin-resistant coagulase negative staph bacteremia , probably port infection S/P removal of the port history of Group G Strep bacteremia history of E. coli UTI history of healthcare-associated pneumonia acute renal failure obesity with BMI 38 CAD GERD arthritis history of bilateral knee replacements chronic CHF COPD DM history of breast CA History of Strep bovis bacteremia (2012) S/P Port-a-cath placement Plan continue Zyvox and Merrem day 4; toe cx growing E. faecalis and Pseudomonas, urine growing Klebsiella; reviewed CXR which does not show infiltrates follow up Dr. Maldonado Barnett's evaluation of the patient's peripheral vascular disease will continue to monitor clinically
[2016-10-24] MEDS: Tiotropium 18 mcg Cap For Inhalation IH SCH (10:37)
[2016-10-24] MEDS: Linezolid 600 mg in D5W 300 ml 600 MG/300 ML BAG IVPB SCH ×2 (10:39→23:39)
[2016-10-24] MEDS: Nystatin-Triamcinolone Cream(30 gm) TOP SCH ×4 (10:41→18:58)
[2016-10-24] MEDS: Ammonium Lactate 12% Lotion (225 g) EXT SCH ×2 (10:41→18:35)
--- NOTE | 2016-10-24 11:30 | PN ---
DATE: 10/24/2016 REASON FOR CONSULTATION: Positive troponin, admitted with altered mental status, history of CAD, history of chronic atrial fibrillation, and COPD. SUBJECTIVE: Lying comfortable. Denies any chest pain, shortness of breath, or any palpitations. PHYSICAL EXAMINATION: GENERAL: Not in apparent distress, lying in ICU, and waiting to be transferred to out of ICU. VITAL SIGNS: Temperature afebrile, heart rate 76, and blood pressure 125/60. HEENT: PERRLA. Extraocular muscles intact. NECK: Supple. No carotid bruit or thyromegaly. CHEST: Clear to auscultation. HEART: S1 and S2 regular. ABDOMEN: Soft. EXTREMITIES: Clubbing and cyanosis negative. LABORATORY DATA: Blood workup as follows; WBC , hemoglobin 9.8, hematocrit 31.8, and platelet count 248. Chemistry shows sodium , potassium 3.9, chloride 103, carbon dioxide 30, anion gap 11, BUN 30, and creatinine 1.0. Troponin 0.18. IMPRESSION: Positive troponin possibly secondary to hemodynamic instability, history of one-vessel coronary artery disease, right coronary artery totally occluded, status post cardiac catheterization 2 years ago, diabetes, hypertension, hyperlipidemia, obesity, chronic atrial fibrillation, on anticoagulation, today INR is 3.22, altered mental status, sepsis, urinary tract infection, and moderate aortic stenosis. RECOMMENDATIONS: We will hold Coumadin. Followup PT/INR tomorrow. Hold Coumadin. We will repeat INR in the morning. Further recommendation during hospital course, okay to transfer to [facility]. We will follow with you. Thank you Dr. Kirby for providing the opportunity in taking care of patient, Esther Baxter. Brianna Sandra MD
--- NOTE | 2016-10-24 13:29 | PN ---
SUBJECTIVE: The patient is a [id number] seen and examined sitting in chair seems to be much more awake, alert, oriented, communicative. No more shortness of breath. No chest pain. PHYSICAL EXAMINATION: VITAL SIGNS: She is afebrile, pulse 81, respirations 18 and blood pressure 110/68. LUNGS: Bilateral fair airflow. No rhonchi or crackle. HEART: S1 and S2 audible. ABDOMEN: Soft, obese, nontender. No rebound. No guarding. NEUROLOGIC: The patient awake, alert, able to communicate. LABORATORY DATA: WBC is 7.3, hemoglobin is 9.8, hematocrit 31.8, platelet of 248, PT is 34.8, INR is 3.22. Chemistry: Sodium 140, potassium 3.9, chloride 103, CO2 of 30, BUN 30, creatinine 1.0, blood sugar of 208, urine positive for Klebsiella, toe is growing pseudomonas. Blood culture are negative. ASSESSMENT: 1. Klebsiella pneumonia urinary tract infection. 2. Left leg cellulitis. 3. Left big toe cellulitis. 4. Severe peripheral vascular disease, status post angioplasty. 5. Hypertension. 6. Hyperlipidemia. 7. Non-insulin dependent diabetes. 8. Deconditioning. PLAN: Currently the patient is on Coumadin and valsartan is on hold. We will continue nebulizer treatment. She will receive one Venofer today. We will followup her electrolyte, CBC and CMP in a. m. and make further recommendations. The patient will transferred to . Edwige Kirby MD
--- NOTE | 2016-10-24 14:12 | CP.PCM.PN ---
<Khris Rowland - Last Filed: 10/24/16 14:37> Subjective - Date & Time of Evaluation Date of Evaluation: 10/24/16 Time of Evaluation: 13:38 - Subjective Subjective: 71 year old female pt seen today concerning for left hallux ulceration, leg erythema, and right digital ischemia. Pt was siiting comfortably in armchair with legs in dependent position during arrival and for evalaution. Continues to complain of tenderness to the toe today, though no illicitation of pain during manipulation of left lower extremity. Patient denies chest pain, shortness of breath, headache, fever, chills, cough, nausea, vomiting, abdominal pain, or other complaints. Objective - Vital Signs/Intake and Output Vital Signs (last 24 hours): Temp Pulse Resp BP Pulse Ox 97.7 F 81 18 110/68 89 L 10/23/16 16:00 10/24/16 11:00 10/24/16 10:00 10/24/16 10:47 10/24/16 08:00 Intake and Output: 10/24/16 10/24/16 06:59 18:59 Intake Total 736 Output Total 1400 Balance -664 - Medications Medications: Current Medications Acetaminophen (Tylenol 325mg Tab) 650 mg PO Q6H PRN PRN Reason: Fever >100.4 F Last Admin: 10/21/16 16:29 Dose: 650 mg Aspirin (Ecotrin) 81 mg PO 0800 [facility] Last Admin: 10/24/16 08:53 Dose: Not Given Furosemide (Lasix) 40 mg IVP Q12 [facility] Last Admin: 10/24/16 10:40 Dose: 40 mg Guaifenesin (Robitussin) 200 mg PO Q4H PRN PRN Reason: Cough and congestion Last Admin: 10/21/16 23:42 Dose: 200 mg Hydralazine HCl (Apresoline) 50 mg PO BID [facility] Last Admin: 10/21/16 18:32 Dose: Not Given Meropenem 1g/NS 100mL IVPB (Meropenem 1g/Ns 100ml Ivpb) 1 gm in 100 mls @ 100 mls/hr IVPB Q8 [facility] PRN Reason: Protocol Last Admin: 10/24/16 13:11 Dose: 100 mls/hr Linezolid (Zyvox 600mg/300ml D5w) 600 mg in 300 mls @ 200 mls/hr IVPB Q12 [facility] PRN Reason: Protocol Last Admin: 10/24/16 10:39 Dose: 200 mls/hr Insulin Human Lispro (Humalog Med) 0 units SC ACHS [facility] PRN Reason: Protocol Last Admin: 10/24/16 12:08 Dose: 3 units Isosorbide Mononitrate (Imdur) 60 mg PO DAILY [facility] Last Admin: 10/21/16 09:54 Dose: Not Given Lactic Acid (Lac-Hydrin 12% Lotion (225 G)) 0 gm EXT BID [facility] Last Admin: 10/24/16 10:41 Dose: 1 applic Levalbuterol HCl (Xopenex) 1.25 mg IH [id number] PRN PRN Reason: Shortness of Breath Last Admin: 10/23/16 21:11 Dose: 1.25 mg Metoprolol Tartrate (Lopressor) 25 mg PO BID [facility] Last Admin: 10/24/16 10:47 Dose: Not Given Mupirocin (Bactroban Ointment) 0 gm TOP BID [facility] Last Admin: 10/24/16 10:00 Dose: 1 applic Nicotine (Nicoderm Cq) 1 patch TD DAILY [facility] Last Admin: 10/24/16 10:39 Dose: 1 patch Nystatin/Triamcinolone Acetonide (Nystatin/Triamcinolone Cream) 0 ea TOP BID [facility] Last Admin: 10/24/16 10:41 Dose: 1 applic Pantoprazole Sodium (Protonix Ec Tab) 40 mg PO 0600 [facility] Last Admin: 10/24/16 06:01 Dose: 40 mg Risperidone (Risperdal Tab) 0.25 mg PO BID [facility] PRN Reason: Protocol Last Admin: 10/24/16 10:37 Dose: 0.25 mg Tiotropium [place] (Spiriva) 18 mcg IH DAILY [facility] Last Admin: 10/24/16 10:37 Dose: 18 mcg Valsartan (Diovan) 320 mg PO DAILY [facility] Last Admin: 10/21/16 09:54 Dose: Not Given Warfarin Sodium (Coumadin) 4 mg PO 1800 [facility] PRN Reason: Protocol Last Admin: 10/23/16 17:44 Dose: 4 mg - Labs Labs: 10/24/16 05:35 10/24/16 05:35 PT 34.8 Seconds (9.9-11.8) H* 10/24/16 05:35 INR 3.22 (0.93-1.08) H 10/24/16 05:35 APTT 39.9 Seconds (23.7-30.8) H 10/23/16 05:40 - Constitutional Appears: Well, Non-toxic, No Acute Distress - Extremities Exam Additional comments: Lower extremity focused exam: Vasc: DP and PT pulses non-palpable B/L secondary to edema, Distal anterior tibial artery flow is palpable. +2 pitting edema noted to left lower extremity. CFT < 4 seconds to digits 1-5 B/L. Skin temperature runs warm to cool from proximal to distal on left lower extremity; runs warm to cool on right foot. ; improved from prior evaluation. Derm: Left: Partial thickness ulceration with fibrotic central eschar noted to medial aspect of left hallux measuring approximately 3.8 cm x 3.2cm. Marita-wound margins absent maceration. Fibrotic wound base border noted. . No active drainage or exudate noted. No malodor, no fluctuance or other clinical signs of infection are noted at this time. Left lower leg non-blanchable erythema and callor extending from supra-malleolar level to tibial tuberosity circumfrentially. Right: Plantar distal tuft of hallux and 5th digit show ischemic changes, cold to touch, and darkening Neuro: Gross sensation diminished b/l Ortho: Mild tenderness noted on palpation of dorsal hallux - Neurological Exam Neurological Exam: Alert, Awake, Oriented x3 - Psychiatric Exam Psychiatric exam: Normal Affect, Normal Mood Assessment and Plan - Assessment and Plan (Free Text) Assessment: 71 year old female with 1) Left hallux ulceration secondary to DM and PVD. 2) Left lower leg vasculopathy vs less likely cellulits. 3) Right foot ischemia of 1st and 5th digits secondary to PVD. Plan: Pt seen and evaluated at bedside. Discussed with attending, Dr. Henriquez. Chart, labs and vitals reviewed; pt is afebrile, WBC= 7.3K. -Arterial duplex scan shows distal SFA, popliteal, and Trifucation disease, and significant diffuse calcifications of lower extremity vasculature. Left hallux cleansed with sterile water, dressed with Bactroban, xeroform and DSD. No compressive ba applied. -Erythematous margins and intensity of left leg remains static despite continued downward trend of WBC. Clinical presentation pattern more likely indicates vasculopathy dermal presentation as opposed to cellulits. Continue IV abx per ID. Vascular consult:pending. Podiatry will continue to follow patient while inhouse. <Deric Henriquez - Last Filed: 10/24/16 17:40> Objective - Vital Signs/Intake and Output Vital Signs (last 24 hours): Temp Pulse Resp BP Pulse Ox 97.2 F L 91 H 33 H 124/42 L 82 L 10/24/16 14:33 10/24/16 14:27 10/24/16 14:27 10/24/16 14:27 10/24/16 14:27 Intake and Output: 10/24/16 10/24/16 06:59 18:59 Intake Total 736 1160 Output Total 1400 2300 Balance -664 -1140 - Medications Medications: Current Medications Acetaminophen (Tylenol 325mg Tab) 650 mg PO Q6H PRN PRN Reason: Fever >100.4 F Last Admin: 10/24/16 14:33 Dose: 650 mg Aspirin (Ecotrin) 81 mg PO 0800 [facility] Last Admin: 10/24/16 08:53 Dose: Not Given Furosemide (Lasix) 40 mg IVP Q12 [facility] Last Admin: 10/24/16 10:40 Dose: 40 mg Guaifenesin (Robitussin) 200 mg PO Q4H PRN PRN Reason: Cough and congestion Last Admin: 10/21/16 23:42 Dose: 200 mg Hydralazine HCl (Apresoline) 50 mg PO BID [facility] Last Admin: 10/21/16 18:32 Dose: Not Given Meropenem 1g/NS 100mL IVPB (Meropenem 1g/Ns 100ml Ivpb) 1 gm in 100 mls @ 100 mls/hr IVPB Q8 [facility] PRN Reason: Protocol Last Admin: 10/24/16 13:11 Dose: 100 mls/hr Linezolid (Zyvox 600mg/300ml D5w) 600 mg in 300 mls @ 200 mls/hr IVPB Q12 [facility] PRN Reason: Protocol Last Admin: 10/24/16 10:39 Dose: 200 mls/hr Insulin Human Lispro (Humalog Med) 0 units SC ACHS [facility] PRN Reason: Protocol Last Admin: 10/24/16 12:08 Dose: 3 units Isosorbide Mononitrate (Imdur) 60 mg PO DAILY [facility] Last Admin: 10/21/16 09:54 Dose: Not Given Lactic Acid (Lac-Hydrin 12% Lotion (225 G)) 0 gm EXT BID [facility] Last Admin: 10/24/16 10:41 Dose: 1 applic Levalbuterol HCl (Xopenex) 1.25 mg IH [id number] PRN PRN Reason: Shortness of Breath Last Admin: 10/23/16 21:11 Dose: 1.25 mg Metoprolol Tartrate (Lopressor) 25 mg PO BID [facility] Last Admin: 10/24/16 10:47 Dose: Not Given Mupirocin (Bactroban Ointment) 0 gm TOP BID [facility] Last Admin: 10/24/16 10:00 Dose: 1 applic Nicotine (Nicoderm Cq) 1 patch TD DAILY [facility] Last Admin: 10/24/16 10:39 Dose: 1 patch Nystatin/Triamcinolone Acetonide (Nystatin/Triamcinolone Cream) 0 ea TOP BID [facility] Last Admin: 10/24/16 10:41 Dose: 1 applic Pantoprazole Sodium (Protonix Ec Tab) 40 mg PO 0600 [facility] Last Admin: 10/24/16 06:01 Dose: 40 mg Risperidone (Risperdal Tab) 0.25 mg PO BID [facility] PRN Reason: Protocol Last Admin: 10/24/16 10:37 Dose: 0.25 mg Tiotropium [place] (Spiriva) 18 mcg IH DAILY [facility] Last Admin: 10/24/16 10:37 Dose: 18 mcg Valsartan (Diovan) 320 mg PO DAILY [facility] Last Admin: 10/21/16 09:54 Dose: Not Given Warfarin Sodium (Coumadin) 4 mg PO 1800 [facility] PRN Reason: Protocol Last Admin: 10/23/16 17:44 Dose: 4 mg - Labs Labs: 10/24/16 05:35 10/24/16 05:35 PT 34.8 Seconds (9.9-11.8) H* 10/24/16 05:35 INR 3.22 (0.93-1.08) H 10/24/16 05:35 APTT 39.9 Seconds (23.7-30.8) H 10/23/16 05:40 Attending/Attestation - Attestation I have personally seen and examined this patient.: Yes I have fully participated in the care of the patient.: Yes I have reviewed all pertinent clinical information, including history, physical exam and plan: Yes
--- NOTE | 2016-10-24 15:01 | PN ---
ADDENDUM Lasix 40 mg IV q. 12, Lopressor 25 b.i.d. not give, meropenem 1 g q. 8, Protonix, Risperdal, Spiriva, Tylenol, Xopenex, Zyvox. ASSESSMENT: 1. Resolved acute kidney injury. 2. Status post sepsis. 3. Status post hypotension, improving blood pressure parameters. 4. Morbid obesity. 5. [id number] diabetes mellitus. 6. History of hypertension. PLAN: 1. Continue to hold antihypertensive. 2. Continue antibiotics as per ID recommendation. 3. Avoid nephrotoxins. 4. Continue to diurese. Naomi Hinojosa MD
--- NOTE | 2016-10-24 15:07 | PN ---
DATE: 10/24/2016 SUBJECTIVE: The patient is seen, sitting in chair in the ICU. She is awake. She is alert. She is comfortable. She does have some cough. She does have some shortness of breath. PHYSICAL EXAMINATION: GENERAL: Morbidly obese elderly lady, sitting in chair. VITAL SIGNS: Blood pressure 110/68, heart rate 81, respiratory rate 18, and temperature 97.7. HEENT: Normocephalic, atraumatic. NECK: Supple. No JVD. LUNGS: Bilateral rhonchi, distant breath sounds, scattered wheeze. CARDIAC: S1 and S2, regular rate and rhythm. No murmur, no rub. ABDOMEN: Obese, distended, soft, nontender. Bowel sounds present. EXTREMITIES: Erythema of the left lower extremity, dressing of the left great toe. INTAKE AND OUTPUT: 2000/2900. LABORATORY DATA: WBC 7, hemoglobin 9.8, hematocrit 32, platelets 248. Sodium 140, potassium 3.9, chloride 103, CO2 of 30, BUN , creatinine 1.0, glucose 133, calcium 9.6, phosphorus 3.3, magnesium 1.9, AST 21, ALT 24, troponin 0.18, albumin 3.8. Urine sodium 67, urine creatinine 39. CURRENT MEDICATIONS: Bactroban, Coumadin, Diovan on hold; Imdur on hold; Lasix 40 IV q. . Naomi Hinojosa MD
[2016-10-24 17:57] LABS: ARTERIAL BLOOD GAS O2 SAT 99.6 % (95-98); ARTERIAL BLOOD GAS PCO2 58 mm/Hg (35-45); ARTERIAL BLOOD GAS PH 7.26 (7.35-7.45); ARTERIAL BLOOD GAS TCO2 27.8 mmol.L (22-28)
--- NOTE | 2016-10-24 18:46 | CP.PCM.PN ---
Subjective - Date & Time of Evaluation Date of Evaluation: 10/24/16 Time of Evaluation: 18:31 - Subjective Subjective: responded to [employer] f/u by code alcon . pt was transferred today from icu. pt has multiple medical problems including copd chf ckd , DM, was found unresposive , seen by nurse 20 minutes ago when she was ok . pt, monitor showed yessy cadia ,no pulse not breathing . acls protocaol was performed ,pt was intubated with 8 english ET tube . pt regained the pulse with one epi.pt was transferred to icu .pt wa discussed with Dr mike soto.Dr gutiérrez was called.chest x-ray showed diffuse infiltrate. Objective - Vital Signs/Intake and Output Vital Signs (last 24 hours): Temp Pulse Resp BP Pulse Ox 97.9 F 104 H 22 104/50 L 98 10/24/16 16:00 10/24/16 18:01 10/24/16 18:16 10/24/16 18:01 10/24/16 18:01 Intake and Output: 10/24/16 10/24/16 06:59 18:59 Intake Total 736 1160 Output Total 1400 2300 Balance -664 -1140 - Medications Medications: Current Medications Acetaminophen (Tylenol 325mg Tab) 650 mg PO Q6H PRN PRN Reason: Fever >100.4 F Last Admin: 10/24/16 14:33 Dose: 650 mg Aspirin (Ecotrin) 81 mg PO 0800 [facility] Last Admin: 10/24/16 08:53 Dose: Not Given Furosemide (Lasix) 40 mg IVP Q12 [facility] Last Admin: 10/24/16 10:40 Dose: 40 mg Guaifenesin (Robitussin) 200 mg PO Q4H PRN PRN Reason: Cough and congestion Last Admin: 10/21/16 23:42 Dose: 200 mg Hydralazine HCl (Apresoline) 50 mg PO BID [facility] Last Admin: 10/21/16 18:32 Dose: Not Given Meropenem 1g/NS 100mL IVPB (Meropenem 1g/Ns 100ml Ivpb) 1 gm in 100 mls @ 100 mls/hr IVPB Q8 [facility] PRN Reason: Protocol Last Admin: 10/24/16 13:11 Dose: 100 mls/hr Linezolid (Zyvox 600mg/300ml D5w) 600 mg in 300 mls @ 200 mls/hr IVPB Q12 [facility] PRN Reason: Protocol Last Admin: 10/24/16 10:39 Dose: 200 mls/hr Insulin Human Lispro (Humalog Med) 0 units SC ACHS [facility] PRN Reason: Protocol Last Admin: 10/24/16 12:08 Dose: 3 units Isosorbide Mononitrate (Imdur) 60 mg PO DAILY [facility] Last Admin: 10/21/16 09:54 Dose: Not Given Lactic Acid (Lac-Hydrin 12% Lotion (225 G)) 0 gm EXT BID [facility] Last Admin: 10/24/16 10:41 Dose: 1 applic Levalbuterol HCl (Xopenex) 1.25 mg IH [id number] PRN PRN Reason: Shortness of Breath Last Admin: 10/23/16 21:11 Dose: 1.25 mg Metoprolol Tartrate (Lopressor) 25 mg PO BID [facility] Last Admin: 10/24/16 18:18 Dose: Not Given Mupirocin (Bactroban Ointment) 0 gm TOP BID [facility] Last Admin: 10/24/16 10:00 Dose: 1 applic Nicotine (Nicoderm Cq) 1 patch TD DAILY [facility] Last Admin: 10/24/16 10:39 Dose: 1 patch Nystatin/Triamcinolone Acetonide (Nystatin/Triamcinolone Cream) 0 ea TOP BID [facility] Last Admin: 10/24/16 10:41 Dose: 1 applic Pantoprazole Sodium (Protonix Ec Tab) 40 mg PO 0600 [facility] Last Admin: 10/24/16 06:01 Dose: 40 mg Risperidone (Risperdal Tab) 0.25 mg PO BID [facility] PRN Reason: Protocol Last Admin: 10/24/16 18:25 Dose: Not Given Tiotropium [place] (Spiriva) 18 mcg IH DAILY [facility] Last Admin: 10/24/16 10:37 Dose: 18 mcg Valsartan (Diovan) 320 mg PO DAILY [facility] Last Admin: 10/21/16 09:54 Dose: Not Given Warfarin Sodium (Coumadin) 4 mg PO 1800 [facility] PRN Reason: Protocol Last Admin: 10/23/16 17:44 Dose: 4 mg - Labs Labs: 10/24/16 05:35 10/24/16 05:35 PT 34.8 Seconds (9.9-11.8) H* 10/24/16 05:35 INR 3.22 (0.93-1.08) H 10/24/16 05:35 APTT 39.9 Seconds (23.7-30.8) H 10/23/16 05:40 - Constitutional Appears: Other (cardiac arrest.) Assessment and Plan - Assessment and Plan (Free Text) Assessment: cardiac arrest regained pulse . pulmonary edema. hx of chf ,copd .dm. Plan: acls protocol was performed .pt was intubated with 8 f ET tube. pt was transferred to icu.
--- NOTE | 2016-10-24 18:52 | CP.CCUPN ---
CCU Subjective - Physician Review Events Since Last Encounter (Free Text): 10/24/16 18:45 71 y/o F who was recently in the ICU was upstairs on the medical floors when she was found to be lethargic and having agonal breaths. RR was called and code blue thereafter . The patient was noted to become bradycardic and was intubated and given 1mg EPI for low BP and bradycardia pending cardiac arrest. Presented to ICU intubated. CCU Objective - Vital Signs / Intake & Output Vital Signs (Last 4 hours): Vital Signs Temp Pulse Resp BP Pulse Ox 10/24/16 18:29 117/66 10/24/16 18:16 22 10/24/16 18:01 104 H 104/50 L 98 10/24/16 18:00 114 H 98 10/24/16 17:45 127 H 117/66 95 10/24/16 17:42 118 H 5 L 10/24/16 16:00 97.9 F 102 H 240 H 140/76 Intake and Output (Last 8hrs): Intake & Output 10/24/16 10/24/16 10/24/16 06:59 14:59 22:59 Intake Total 736 1160 Output Total 1400 2300 Balance -664 -1140 Intake: IV 500 400 Right Forearm 400 right thumb 500 Oral 236 760 Output: Urine 1400 2300 2-way Urethral 1400 2300 Other: Voiding Method Indwelling Catheter # Bowel Movements 1 - Physical Exam Head: Positive for: Atraumatic, Normocephalic Pupils: Positive for: PERRL Extroacular Muscles: Positive for: EOMI Conjunctiva: Positive for: Normal Mouth: Positive for: Moist Mucous Membranes Neck: Positive for: Normal Range of Motion Respiratory/Chest: Positive for: Clear to Auscultation, Good Air Exchange. Negative for: Respiratory Distress, Accessory Muscle Use Cardiovascular: Positive for: Regular Rate and Rhythm, Normal S1, S2. Negative for: Murmurs Abdomen: Positive for: Normal Bowel Sounds. Negative for: Tenderness, Distention, Peritoneal Signs Back: Positive for: Normal Inspection Upper Extremity: Positive for: Normal Inspection. Negative for: Cyanosis, Edema Lower Extremity: Positive for: Normal Inspection, Erythema (left leg ), Other ( left foot ulcer healing and no warmth). Negative for: Edema Neurological: Positive for: GCS=15, CN II-XII Intact, Speech Normal Skin: Positive for: Warm, Dry, Normal Color. Negative for: Rashes Psychiatric: Positive for: Alert, Oriented x 3, Normal Insight, Normal Concentration - Medications Active Medications: Active Medications Generic Name Dose Route Start Last Admin Trade Name Freq PRN Reason Stop Dose Admin Acetaminophen 650 mg 10/20/16 22:15 10/24/16 14:33 Tylenol 325mg Tab PO 650 mg Q6H PRN Administration Fever >100.4 F Aspirin 81 mg 10/21/16 08:00 10/24/16 08:53 Ecotrin PO Not Given 0800 WAYNE Furosemide 40 mg 10/23/16 10:00 10/24/16 10:40 Lasix IVP 40 mg Q12 WAYNE Administration Guaifenesin 200 mg 10/21/16 23:29 10/21/16 23:42 Robitussin PO 200 mg Q4H PRN Administration Cough and congestion Hydralazine HCl 50 mg 10/21/16 10:00 10/21/16 18:32 Apresoline PO Not Given BID WAYNE Meropenem 1g/NS 100mL IVPB 1 gm in 100 mls @ 100 mls/hr 10/22/16 16:15 13:11 Meropenem 1g/Ns 100ml Ivpb IVPB 100 mls/hr Q8 WAYNE Administration Protocol Linezolid 600 mg in 300 mls @ 200 mls/hr 10/22/16 22:00 10/24/16 10:39 Zyvox 600mg/300ml D5w IVPB 200 mls/hr Q12 WAYNE Administration Protocol Insulin Human Lispro 0 units 10/21/16 07:30 10/24/16 18:35 Humalog Med SC 7 units ACHS WAYNE Administration Protocol Isosorbide Mononitrate 60 mg 10/21/16 10:00 10/21/16 09:54 Imdur PO Not Given DAILY WAYNE Lactic Acid 0 gm 10/21/16 10:00 10/24/16 18:35 Lac-Hydrin 12% Lotion (225 G) EXT 1 applic BID WAYNE Administration Levalbuterol HCl 1.25 mg 10/20/16 22:15 10/23/16 21:11 Xopenex IH 1.25 mg [id number] PRN Administration Shortness of Breath Metoprolol Tartrate 25 mg 10/23/16 10:00 10/24/16 18:18 Lopressor PO Not Given BID WAYNE Mupirocin 0 gm 10/21/16 18:00 10/24/16 18:36 Bactroban Ointment TOP 1 applic BID WAYNE Administration Nicotine 1 patch 10/21/16 10:00 10/24/16 10:39 Nicoderm Cq TD 1 patch DAILY WAYNE Administration Nystatin/Triamcinolone Acetonide 0 ea 10/21/16 10:00 10/24/16 18:44 Nystatin/Triamcinolone Cream TOP 1 applic BID WAYNE Administration Pantoprazole Sodium 40 mg 10/23/16 06:00 10/24/16 06:01 Protonix Ec Tab PO 40 mg 0600 WAYNE Administration Risperidone 0.25 mg 10/24/16 10:00 10/24/16 18:25 Risperdal Tab PO Not Given BID [facility] Protocol Tiotropium [place] 18 mcg 10/21/16 10:00 10/24/16 10:37 Spiriva IH 18 mcg DAILY WAYNE Administration Valsartan 320 mg 10/21/16 10:00 10/21/16 09:54 Diovan PO Not Given DAILY WAYNE Warfarin Sodium 4 mg 10/21/16 18:00 10/23/16 17:44 Coumadin PO 4 mg 1800 WAYNE Administration Protocol - Patient Studies Lab Studies: Lab Studies 10/24/16 10/24/16 10/24/16 Range/Units 18:19 17:45 11:28 WBC (4.5-11.0) 10^3/ul RBC (3.5-6.1) 10^6/uL Hgb (12.0-16.0) gm/dL Hct (36.0-48.0) % MCV (80.0-105.0) fL MCH (25.0-35.0) pg MCHC (31.0-37.0) g/dl RDW (11.5-14.5) % Plt Count (120.0-450.0) 10^3/uL MPV (7.0-11.0) fl Gran % (50.0-68.0) % Lymph % (Auto) (22.0-35.0) % Gulf % (Auto) (1.0-6.0) % Eos % (Auto) (1.5-5.0) % Baso % (Auto) (0.0-3.0) % Gran # (1.4-6.5) Lymph # (1.2-3.4) [place] # (0.1-0.6) Eos # (0.0-0.7) Baso # (0.0-2.0) K/mm3 PT (9.9-11.8) Seconds INR (0.93-1.08) pCO2 58 H (35-45) mm/Hg pO2 203.0 H (80-100) mm/Hg HCO3 26.0 (21-28) mmol/L ABG pH 7.26 L (7.35-7.45) ABG Total CO2 27.8 (22-28) mmol.L ABG O2 Saturation 99.6 H (95-98) % ABG Base Excess -2.1 L (-2.0-3.0) mmol/L ABG Potassium 3.9 (3.6-5.2) mmol/L Glucose 308 H (65-105) mg/dl Lactate 3.7 H (0.7-2.1) mmol/L FiO2 100.0 % Sodium 140.0 (132-148) mmol/L Potassium (3.6-5.0) mmol/L Chloride 108.0 H (98-107) mmol/L Carbon Dioxide (21-33) mmol/L Anion Gap (10-20) BUN (7-21) mg/dL Creatinine (0.5-1.4) mg/dL Est GFR ( Amer) Est GFR (Non-Af Amer) POC Glucose (mg/dL) 329 H 208 H (65-110) mg/dL Random Glucose (70-110) mg/dL Calcium (8.4-10.5) mg/dL Phosphorus (2.5-4.5) mg/dL Magnesium (1.7-2.2) mg/dL Total Bilirubin (0.2-1.3) mg/dL AST (15-39) U/L ALT (7-56) U/L Alkaline Phosphatase (38-133) U/L Lactate Dehydrogenase (333-699) U/L Total Creatine Kinase (35-230) U/L Troponin I ng/mL Total Protein (5.8-8.3) g/dL Albumin (3.0-4.8) g/dL Globulin gm/dL Albumin/Globulin Ratio (1.1-1.8) Arterial Blood Potassium 3.9 (3.6-5.2) mmol/L 10/24/16 10/24/16 10/24/16 Range/Units 07:52 05:35 05:35 WBC (4.5-11.0) 10^3/ul RBC (3.5-6.1) 10^6/uL Hgb (12.0-16.0) gm/dL Hct (36.0-48.0) % MCV (80.0-105.0) fL MCH (25.0-35.0) pg MCHC (31.0-37.0) g/dl RDW (11.5-14.5) % Plt Count (120.0-450.0) 10^3/uL MPV (7.0-11.0) fl Gran % (50.0-68.0) % Lymph % (Auto) (22.0-35.0) % Gulf % (Auto) (1.0-6.0) % Eos % (Auto) (1.5-5.0) % Baso % (Auto) (0.0-3.0) % Gran # (1.4-6.5) Lymph # (1.2-3.4) [place] # (0.1-0.6) Eos # (0.0-0.7) Baso # (0.0-2.0) K/mm3 PT 34.8 H* (9.9-11.8) Seconds INR 3.22 H (0.93-1.08) pCO2 (35-45) mm/Hg pO2 (80-100) mm/Hg HCO3 (21-28) mmol/L ABG pH (7.35-7.45) ABG Total CO2 (22-28) mmol.L ABG O2 Saturation (95-98) % ABG Base Excess (-2.0-3.0) mmol/L ABG Potassium (3.6-5.2) mmol/L Glucose (65-105) mg/dl Lactate (0.7-2.1) mmol/L FiO2 % Sodium 140 (132-148) mmol/L Potassium 3.9 (3.6-5.0) mmol/L Chloride 103 (98-107) mmol/L Carbon Dioxide 30 (21-33) mmol/L Anion Gap 11 (10-20) BUN 30 H (7-21) mg/dL Creatinine 1.0 (0.5-1.4) mg/dL Est GFR ( Amer) > 60 Est GFR (Non-Af Amer) 55 POC Glucose (mg/dL) 134 H (65-110) mg/dL Random Glucose 133 H (70-110) mg/dL Calcium 9.6 (8.4-10.5) mg/dL Phosphorus 3.3 (2.5-4.5) mg/dL Magnesium 1.9 (1.7-2.2) mg/dL Total Bilirubin 0.6 (0.2-1.3) mg/dL AST 21 (15-39) U/L ALT 24 (7-56) U/L Alkaline Phosphatase 116 (38-133) U/L Lactate Dehydrogenase 497 (333-699) U/L Total Creatine Kinase < 20 L (35-230) U/L Troponin I 0.18 H* D ng/mL Total Protein 6.4 (5.8-8.3) g/dL Albumin 3.8 (3.0-4.8) g/dL Globulin 2.6 gm/dL Albumin/Globulin Ratio 1.5 (1.1-1.8) Arterial Blood Potassium (3.6-5.2) mmol/L 10/24/16 10/23/16 10/23/16 Range/Units 05:35 22:01 19:39 WBC 7.3 (4.5-11.0) 10^3/ul RBC 3.49 L (3.5-6.1) 10^6/uL Hgb 9.8 L (12.0-16.0) gm/dL Hct 31.8 L (36.0-48.0) % MCV 91.1 (80.0-105.0) fL MCH 28.1 (25.0-35.0) pg MCHC 30.8 L (31.0-37.0) g/dl RDW 17.6 H (11.5-14.5) % Plt Count 248 (120.0-450.0) 10^3/uL MPV 10.0 (7.0-11.0) fl Gran % 77.2 H (50.0-68.0) % Lymph % (Auto) 10.6 L (22.0-35.0) % [place] % (Auto) 10.0 H (1.0-6.0) % Eos % (Auto) 2.1 (1.5-5.0) % Baso % (Auto) 0.1 (0.0-3.0) % Gran # 5.62 (1.4-6.5) Lymph # 0.8 L (1.2-3.4) [place] # 0.7 H (0.1-0.6) Eos # 0.2 (0.0-0.7) Baso # 0.01 (0.0-2.0) K/mm3 PT (9.9-11.8) Seconds INR (0.93-1.08) pCO2 (35-45) mm/Hg pO2 (80-100) mm/Hg HCO3 (21-28) mmol/L ABG pH (7.35-7.45) ABG Total CO2 (22-28) mmol.L ABG O2 Saturation (95-98) % ABG Base Excess (-2.0-3.0) mmol/L ABG Potassium (3.6-5.2) mmol/L Glucose (65-105) mg/dl Lactate (0.7-2.1) mmol/L FiO2 % Sodium (132-148) mmol/L Potassium (3.6-5.0) mmol/L Chloride (98-107) mmol/L Carbon Dioxide (21-33) mmol/L Anion Gap (10-20) BUN (7-21) mg/dL Creatinine (0.5-1.4) mg/dL Est GFR ( Amer) Est GFR (Non-Af Amer) POC Glucose (mg/dL) 258 H 237 H (65-110) mg/dL Random Glucose (70-110) mg/dL Calcium (8.4-10.5) mg/dL Phosphorus (2.5-4.5) mg/dL Magnesium (1.7-2.2) mg/dL Total Bilirubin (0.2-1.3) mg/dL AST (15-39) U/L ALT (7-56) U/L Alkaline Phosphatase (38-133) U/L Lactate Dehydrogenase (333-699) U/L Total Creatine Kinase (35-230) U/L Troponin I ng/mL Total Protein (5.8-8.3) g/dL Albumin (3.0-4.8) g/dL Globulin gm/dL Albumin/Globulin Ratio (1.1-1.8) Arterial Blood Potassium (3.6-5.2) mmol/L 10/23/16 10/23/16 10/23/16 Range/Units 16:25 12:54 11:15 WBC (4.5-11.0) 10^3/ul RBC (3.5-6.1) 10^6/uL Hgb (12.0-16.0) gm/dL Hct (36.0-48.0) % MCV (80.0-105.0) fL MCH (25.0-35.0) pg MCHC (31.0-37.0) g/dl RDW (11.5-14.5) % Plt Count (120.0-450.0) 10^3/uL MPV (7.0-11.0) fl Gran % (50.0-68.0) % Lymph % (Auto) (22.0-35.0) % [place] % (Auto) (1.0-6.0) % Eos % (Auto) (1.5-5.0) % Baso % (Auto) (0.0-3.0) % Gran # (1.4-6.5) Lymph # (1.2-3.4) [place] # (0.1-0.6) Eos # (0.0-0.7) Baso # (0.0-2.0) K/mm3 PT (9.9-11.8) Seconds INR (0.93-1.08) pCO2 (35-45) mm/Hg pO2 (80-100) mm/Hg HCO3 (21-28) mmol/L ABG pH (7.35-7.45) ABG Total CO2 (22-28) mmol.L ABG O2 Saturation (95-98) % ABG Base Excess (-2.0-3.0) mmol/L ABG Potassium (3.6-5.2) mmol/L Glucose (65-105) mg/dl Lactate (0.7-2.1) mmol/L FiO2 % Sodium (132-148) mmol/L Potassium (3.6-5.0) mmol/L Chloride (98-107) mmol/L Carbon Dioxide (21-33) mmol/L Anion Gap (10-20) BUN (7-21) mg/dL Creatinine (0.5-1.4) mg/dL Est GFR ( Amer) Est GFR (Non-Af Amer) POC Glucose (mg/dL) 215 H 243 H 197 H (65-110) mg/dL Random Glucose (70-110) mg/dL Calcium (8.4-10.5) mg/dL Phosphorus (2.5-4.5) mg/dL Magnesium (1.7-2.2) mg/dL Total Bilirubin (0.2-1.3) mg/dL AST (15-39) U/L ALT (7-56) U/L Alkaline Phosphatase (38-133) U/L Lactate Dehydrogenase (333-699) U/L Total Creatine Kinase (35-230) U/L Troponin I ng/mL Total Protein (5.8-8.3) g/dL Albumin (3.0-4.8) g/dL Globulin gm/dL Albumin/Globulin Ratio (1.1-1.8) Arterial Blood Potassium (3.6-5.2) mmol/L 10/23/16 10/23/16 10/23/16 Range/Units 09:10 07:29 06:12 WBC (4.5-11.0) 10^3/ul RBC (3.5-6.1) 10^6/uL Hgb (12.0-16.0) gm/dL Hct (36.0-48.0) % MCV (80.0-105.0) fL MCH (25.0-35.0) pg MCHC (31.0-37.0) g/dl RDW (11.5-14.5) % Plt Count (120.0-450.0) 10^3/uL MPV (7.0-11.0) fl Gran % (50.0-68.0) % Lymph % (Auto) (22.0-35.0) % [place] % (Auto) (1.0-6.0) % Eos % (Auto) (1.5-5.0) % Baso % (Auto) (0.0-3.0) % Gran # (1.4-6.5) Lymph # (1.2-3.4) [place] # (0.1-0.6) Eos # (0.0-0.7) Baso # (0.0-2.0) K/mm3 PT (9.9-11.8) Seconds INR (0.93-1.08) pCO2 (35-45) mm/Hg pO2 (80-100) mm/Hg HCO3 (21-28) mmol/L ABG pH (7.35-7.45) ABG Total CO2 (22-28) mmol.L ABG O2 Saturation (95-98) % ABG Base Excess (-2.0-3.0) mmol/L ABG Potassium (3.6-5.2) mmol/L Glucose (65-105) mg/dl Lactate (0.7-2.1) mmol/L FiO2 % Sodium (132-148) mmol/L Potassium (3.6-5.0) mmol/L Chloride (98-107) mmol/L Carbon Dioxide (21-33) mmol/L Anion Gap (10-20) BUN (7-21) mg/dL Creatinine (0.5-1.4) mg/dL Est GFR ( Amer) Est GFR (Non-Af Amer) POC Glucose (mg/dL) 174 H 105 123 H (65-110) mg/dL Random Glucose (70-110) mg/dL Calcium (8.4-10.5) mg/dL Phosphorus (2.5-4.5) mg/dL Magnesium (1.7-2.2) mg/dL Total Bilirubin (0.2-1.3) mg/dL AST (15-39) U/L ALT (7-56) U/L Alkaline Phosphatase (38-133) U/L Lactate Dehydrogenase (333-699) U/L Total Creatine Kinase (35-230) U/L Troponin I ng/mL Total Protein (5.8-8.3) g/dL Albumin (3.0-4.8) g/dL Globulin gm/dL Albumin/Globulin Ratio (1.1-1.8) Arterial Blood Potassium (3.6-5.2) mmol/L 10/23/16 10/22/16 10/22/16 Range/Units 02:05 23:57 22:05 WBC (4.5-11.0) 10^3/ul RBC (3.5-6.1) 10^6/uL Hgb (12.0-16.0) gm/dL Hct (36.0-48.0) % MCV (80.0-105.0) fL MCH (25.0-35.0) pg MCHC (31.0-37.0) g/dl RDW (11.5-14.5) % Plt Count (120.0-450.0) 10^3/uL MPV (7.0-11.0) fl Gran % (50.0-68.0) % Lymph % (Auto) (22.0-35.0) % [place] % (Auto) (1.0-6.0) % Eos % (Auto) (1.5-5.0) % Baso % (Auto) (0.0-3.0) % Gran # (1.4-6.5) Lymph # (1.2-3.4) [place] # (0.1-0.6) Eos # (0.0-0.7) Baso # (0.0-2.0) K/mm3 PT (9.9-11.8) Seconds INR (0.93-1.08) pCO2 (35-45) mm/Hg pO2 (80-100) mm/Hg HCO3 (21-28) mmol/L ABG pH (7.35-7.45) ABG Total CO2 (22-28) mmol.L ABG O2 Saturation (95-98) % ABG Base Excess (-2.0-3.0) mmol/L ABG Potassium (3.6-5.2) mmol/L Glucose (65-105) mg/dl Lactate (0.7-2.1) mmol/L FiO2 % Sodium (132-148) mmol/L Potassium (3.6-5.0) mmol/L Chloride (98-107) mmol/L Carbon Dioxide (21-33) mmol/L Anion Gap (10-20) BUN (7-21) mg/dL Creatinine (0.5-1.4) mg/dL Est GFR ( Amer) Est GFR (Non-Af Amer) POC Glucose (mg/dL) 135 H 129 H 96 (65-110) mg/dL Random Glucose (70-110) mg/dL Calcium (8.4-10.5) mg/dL Phosphorus (2.5-4.5) mg/dL Magnesium (1.7-2.2) mg/dL Total Bilirubin (0.2-1.3) mg/dL AST (15-39) U/L ALT (7-56) U/L Alkaline Phosphatase (38-133) U/L Lactate Dehydrogenase (333-699) U/L Total Creatine Kinase (35-230) U/L Troponin I ng/mL Total Protein (5.8-8.3) g/dL Albumin (3.0-4.8) g/dL Globulin gm/dL Albumin/Globulin Ratio (1.1-1.8) Arterial Blood Potassium (3.6-5.2) mmol/L 10/22/16 10/22/16 10/22/16 Range/Units 20:04 17:57 16:27 WBC (4.5-11.0) 10^3/ul RBC (3.5-6.1) 10^6/uL Hgb (12.0-16.0) gm/dL Hct (36.0-48.0) % MCV (80.0-105.0) fL MCH (25.0-35.0) pg MCHC (31.0-37.0) g/dl RDW (11.5-14.5) % Plt Count (120.0-450.0) 10^3/uL MPV (7.0-11.0) fl Gran % (50.0-68.0) % Lymph % (Auto) (22.0-35.0) % [place] % (Auto) (1.0-6.0) % Eos % (Auto) (1.5-5.0) % Baso % (Auto) (0.0-3.0) % Gran # (1.4-6.5) Lymph # (1.2-3.4) [place] # (0.1-0.6) Eos # (0.0-0.7) Baso # (0.0-2.0) K/mm3 PT (9.9-11.8) Seconds INR (0.93-1.08) pCO2 (35-45) mm/Hg pO2 (80-100) mm/Hg HCO3 (21-28) mmol/L ABG pH (7.35-7.45) ABG Total CO2 (22-28) mmol.L ABG O2 Saturation (95-98) % ABG Base Excess (-2.0-3.0) mmol/L ABG Potassium (3.6-5.2) mmol/L Glucose (65-105) mg/dl Lactate (0.7-2.1) mmol/L FiO2 % Sodium (132-148) mmol/L Potassium (3.6-5.0) mmol/L Chloride (98-107) mmol/L Carbon Dioxide (21-33) mmol/L Anion Gap (10-20) BUN (7-21) mg/dL Creatinine (0.5-1.4) mg/dL Est GFR ( Amer) Est GFR (Non-Af Amer) POC Glucose (mg/dL) 104 139 H 119 H (65-110) mg/dL Random Glucose (70-110) mg/dL Calcium (8.4-10.5) mg/dL Phosphorus (2.5-4.5) mg/dL Magnesium (1.7-2.2) mg/dL Total Bilirubin (0.2-1.3) mg/dL AST (15-39) U/L ALT (7-56) U/L Alkaline Phosphatase (38-133) U/L Lactate Dehydrogenase (333-699) U/L Total Creatine Kinase (35-230) U/L Troponin I ng/mL Total Protein (5.8-8.3) g/dL Albumin (3.0-4.8) g/dL Globulin gm/dL Albumin/Globulin Ratio (1.1-1.8) Arterial Blood Potassium (3.6-5.2) mmol/L Laboratory Results - last 24 hr 10/22/16 10/22/16 10/22/16 16:27 17:57 20:04 WBC RBC Hgb Hct MCV MCH MCHC RDW Plt Count MPV Gran % Lymph % (Auto) Gulf % (Auto) Eos % (Auto) Baso % (Auto) Gran # Lymph # [place] # Eos # Baso # PT INR pCO2 pO2 HCO3 ABG pH ABG Total CO2 ABG O2 Saturation ABG Base Excess ABG Potassium Glucose Lactate FiO2 Sodium Potassium Chloride Carbon Dioxide Anion Gap BUN Creatinine Est GFR ( Amer) Est GFR (Non-Af Amer) POC Glucose (mg/dL) 119 H 139 H 104 Random Glucose Calcium Phosphorus Magnesium Total Bilirubin AST ALT Alkaline Phosphatase Lactate Dehydrogenase Total Creatine Kinase Troponin I Total Protein Albumin Globulin Albumin/Globulin Ratio Arterial Blood Potassium 10/22/16 10/22/16 10/23/16 22:05 23:57 02:05 WBC RBC Hgb Hct MCV MCH MCHC RDW Plt Count MPV Gran % Lymph % (Auto) [place] % (Auto) Eos % (Auto) Baso % (Auto) Gran # Lymph # [place] # Eos # Baso # PT INR pCO2 pO2 HCO3 ABG pH ABG Total CO2 ABG O2 Saturation ABG Base Excess ABG Potassium Glucose Lactate FiO2 Sodium Potassium Chloride Carbon Dioxide Anion Gap BUN Creatinine Est GFR ( Amer) Est GFR (Non-Af Amer) POC Glucose (mg/dL) 96 129 H 135 H Random Glucose Calcium Phosphorus Magnesium Total Bilirubin AST ALT Alkaline Phosphatase Lactate Dehydrogenase Total Creatine Kinase Troponin I Total Protein Albumin Globulin Albumin/Globulin Ratio Arterial Blood Potassium 10/23/16 10/23/16 10/23/16 06:12 07:29 09:10 WBC RBC Hgb Hct MCV MCH MCHC RDW Plt Count MPV Gran % Lymph % (Auto) [place] % (Auto) Eos % (Auto) Baso % (Auto) Gran # Lymph # [place] # Eos # Baso # PT INR pCO2 pO2 HCO3 ABG pH ABG Total CO2 ABG O2 Saturation ABG Base Excess ABG Potassium Glucose Lactate FiO2 Sodium Potassium Chloride Carbon Dioxide Anion Gap BUN Creatinine Est GFR ( Amer) Est GFR (Non-Af Amer) POC Glucose (mg/dL) 123 H 105 174 H Random Glucose Calcium Phosphorus Magnesium Total Bilirubin AST ALT Alkaline Phosphatase Lactate Dehydrogenase Total Creatine Kinase Troponin I Total Protein Albumin Globulin Albumin/Globulin Ratio Arterial Blood Potassium 10/23/16 10/23/16 10/23/16 11:15 12:54 16:25 WBC RBC Hgb Hct MCV MCH MCHC RDW Plt Count MPV Gran % Lymph % (Auto) [place] % (Auto) Eos % (Auto) Baso % (Auto) Gran # Lymph # [place] # Eos # Baso # PT INR pCO2 pO2 HCO3 ABG pH ABG Total CO2 ABG O2 Saturation ABG Base Excess ABG Potassium Glucose Lactate FiO2 Sodium Potassium Chloride Carbon Dioxide Anion Gap BUN Creatinine Est GFR ( Amer) Est GFR (Non-Af Amer) POC Glucose (mg/dL) 197 H 243 H 215 H Random Glucose Calcium Phosphorus Magnesium Total Bilirubin AST ALT Alkaline Phosphatase Lactate Dehydrogenase Total Creatine Kinase Troponin I Total Protein Albumin Globulin Albumin/Globulin Ratio Arterial Blood Potassium 10/23/16 10/23/16 10/24/16 19:39 22:01 05:35 WBC 7.3 RBC 3.49 L Hgb 9.8 L Hct 31.8 L MCV 91.1 MCH 28.1 MCHC 30.8 L RDW 17.6 H Plt Count 248 MPV 10.0 Gran % 77.2 H Lymph % (Auto) 10.6 L Gulf % (Auto) 10.0 H Eos % (Auto) 2.1 Baso % (Auto) 0.1 Gran # 5.62 Lymph # 0.8 L Gulf # 0.7 H Eos # 0.2 Baso # 0.01 PT INR pCO2 pO2 HCO3 ABG pH ABG Total CO2 ABG O2 Saturation ABG Base Excess ABG Potassium Glucose Lactate FiO2 Sodium Potassium Chloride Carbon Dioxide Anion Gap BUN Creatinine Est GFR ( Amer) Est GFR (Non-Af Amer) POC Glucose (mg/dL) 237 H 258 H Random Glucose Calcium Phosphorus Magnesium Total Bilirubin AST ALT Alkaline Phosphatase Lactate Dehydrogenase Total Creatine Kinase Troponin I Total Protein Albumin Globulin Albumin/Globulin Ratio Arterial Blood Potassium 10/24/16 10/24/16 10/24/16 05:35 05:35 07:52 WBC RBC Hgb Hct MCV MCH MCHC RDW Plt Count MPV Gran % Lymph % (Auto) Gulf % (Auto) Eos % (Auto) Baso % (Auto) Gran # Lymph # Gulf # Eos # Baso # PT 34.8 H* INR 3.22 H pCO2 pO2 HCO3 ABG pH ABG Total CO2 ABG O2 Saturation ABG Base Excess ABG Potassium Glucose Lactate FiO2 Sodium 140 Potassium 3.9 Chloride 103 Carbon Dioxide 30 Anion Gap 11 BUN 30 H Creatinine 1.0 Est GFR ( Amer) > 60 Est GFR (Non-Af Amer) 55 POC Glucose (mg/dL) 134 H Random Glucose 133 H Calcium 9.6 Phosphorus 3.3 Magnesium 1.9 Total Bilirubin 0.6 AST 21 ALT 24 Alkaline Phosphatase 116 Lactate Dehydrogenase 497 Total Creatine Kinase < 20 L Troponin I 0.18 H* D Total Protein 6.4 Albumin 3.8 Globulin 2.6 Albumin/Globulin Ratio 1.5 Arterial Blood Potassium 10/24/16 10/24/16 10/24/16 11:28 17:45 18:19 WBC RBC Hgb Hct MCV MCH MCHC RDW Plt Count MPV Gran % Lymph % (Auto) Gulf % (Auto) Eos % (Auto) Baso % (Auto) Gran # Lymph # Gulf # Eos # Baso # PT INR pCO2 58 H pO2 203.0 H HCO3 26.0 ABG pH 7.26 L ABG Total CO2 27.8 ABG O2 Saturation 99.6 H ABG Base Excess -2.1 L ABG Potassium 3.9 Glucose 308 H Lactate 3.7 H FiO2 100.0 Sodium 140.0 Potassium Chloride 108.0 H Carbon Dioxide Anion Gap BUN Creatinine Est GFR ( Amer) Est GFR (Non-Af Amer) POC Glucose (mg/dL) 208 H 329 H Random Glucose Calcium Phosphorus Magnesium Total Bilirubin AST ALT Alkaline Phosphatase Lactate Dehydrogenase Total Creatine Kinase Troponin I Total Protein Albumin Globulin Albumin/Globulin Ratio Arterial Blood Potassium 3.9 EKG/Cardiology Studies: Cardiology / EKG Studies 10/24/16 17:18 ELECTROCARDIOGRAM Stat Comment: Reason For Exam: code blue Fingerstick Blood Sugar Results: 329 Review of Systems - Review of Systems Systems not reviewed;Unavailable: Altered Mental Status Critical Care Progress Note - Ventilator Checklist Head of Bed 30 Degrees: Yes PUD Prophalyxis: Yes DVT Prophylaxis: Yes - Nutrition Nutrition: Nutrition Category Date Time Status Heart Healthy Diet [DIET] Diets 10/21/16 Breakfast Ordered Assessment/Plan - Assessment and Plan (Free Text) Assessment: 71 y/o F w/ Acute respiratory failure likely from acute pulmonary edema On PRVC w/ sluggish respiratory effort. Seen to have frothy sputum and cxr shows B/L sudden infiltrates suggestive for Pulmonary edema. STAT LASIX given. HX of and CHF. ABG drawn , PH and CO2 at patient's baseline. On ABX treatment for resistant UTI per ID. EKG does show lateral inversion post semi code situation and chest compressions. Will need ECHO within 24 hrs. PRn sedation, SBT in the a.m dvt P ppi cc time 65 min
--- NOTE | 2016-10-24 22:02 | CP.PCM.PN ---
Subjective - Date & Time of Evaluation Date of Evaluation: 10/24/16 Time of Evaluation: 17:00 - Subjective Subjective: CODE BLUE NOTE: Rapid response was called at 16:55 because patient was altered and not responding. At 17:00 code blue was called. House doc and Senior resident responded to the code. Patient was found to be pulseless and not breathing. ACLS protocol was performed, Chest compressions were initiated. One dose of epinephrine was administered at 17:06. Patient received a bolus of NS and mouth was suctioned. Patient was found to be bradycardic with HR in the 20-30s. Chest compressions concluded after total 10 minutes. Patient was subsequently intubated with 8 welsh ET tube. ETT positioning was confirmed on CXR. CXR also showed diffuse inflitrates. Labs ordered included ABG shock, CBC, CMP, mag, phos , blood cx x 2. EKG was done. Patient was transferred to ICU for continued management at 17:40. Primary attending, Statement Processor, and family members notified. Objective - Vital Signs/Intake and Output Vital Signs (last 24 hours): Temp Pulse Resp BP Pulse Ox 97.9 F 104 H 22 117/66 98 10/24/16 16:00 10/24/16 18:01 10/24/16 18:16 10/24/16 18:29 10/24/16 18:01 Intake and Output: 10/24/16 10/25/16 18:59 06:59 Intake Total 1160 Output Total 2300 Balance -1140 - Medications Medications: Current Medications Acetaminophen (Tylenol 325mg Tab) 650 mg PO Q6H PRN PRN Reason: Fever >100.4 F Last Admin: 10/24/16 14:33 Dose: 650 mg Aspirin (Ecotrin) 81 mg PO 0800 [facility] Last Admin: 10/24/16 08:53 Dose: Not Given Furosemide (Lasix) 40 mg IVP Q12 [facility] Last Admin: 10/24/16 10:40 Dose: 40 mg Guaifenesin (Robitussin) 200 mg PO Q4H PRN PRN Reason: Cough and congestion Last Admin: 10/21/16 23:42 Dose: 200 mg Hydralazine HCl (Apresoline) 50 mg PO BID [facility] Last Admin: 10/21/16 18:32 Dose: Not Given Meropenem 1g/NS 100mL IVPB (Meropenem 1g/Ns 100ml Ivpb) 1 gm in 100 mls @ 100 mls/hr IVPB Q8 [facility] PRN Reason: Protocol Last Admin: 10/24/16 13:11 Dose: 100 mls/hr Linezolid (Zyvox 600mg/300ml D5w) 600 mg in 300 mls @ 200 mls/hr IVPB Q12 [facility] PRN Reason: Protocol Last Admin: 10/24/16 10:39 Dose: 200 mls/hr Insulin Human Lispro (Humalog Med) 0 units SC ACHS [facility] PRN Reason: Protocol Last Admin: 10/24/16 18:35 Dose: 7 units Isosorbide Mononitrate (Imdur) 60 mg PO DAILY [facility] Last Admin: 10/21/16 09:54 Dose: Not Given Lactic Acid (Lac-Hydrin 12% Lotion (225 G)) 0 gm EXT BID [facility] Last Admin: 10/24/16 18:35 Dose: 1 applic Levalbuterol HCl (Xopenex) 1.25 mg IH [id number] PRN PRN Reason: Shortness of Breath Last Admin: 10/23/16 21:11 Dose: 1.25 mg Metoprolol Tartrate (Lopressor) 25 mg PO BID [facility] Last Admin: 10/24/16 18:18 Dose: Not Given Mupirocin (Bactroban Ointment) 0 gm TOP BID [facility] Last Admin: 10/24/16 18:36 Dose: 1 applic Nicotine (Nicoderm Cq) 1 patch TD DAILY [facility] Last Admin: 10/24/16 10:39 Dose: 1 patch Nystatin/Triamcinolone Acetonide (Nystatin/Triamcinolone Cream) 0 ea TOP BID [facility] Last Admin: 10/24/16 18:58 Dose: 1 applic Pantoprazole Sodium (Protonix Ec Tab) 40 mg PO 0600 [facility] Last Admin: 10/24/16 06:01 Dose: 40 mg Risperidone (Risperdal Tab) 0.25 mg PO BID [facility] PRN Reason: Protocol Last Admin: 10/24/16 18:25 Dose: Not Given Tiotropium [place] (Spiriva) 18 mcg IH DAILY [facility] Last Admin: 10/24/16 10:37 Dose: 18 mcg Valsartan (Diovan) 320 mg PO DAILY [facility] Last Admin: 10/21/16 09:54 Dose: Not Given Warfarin Sodium (Coumadin) 4 mg PO 1800 [facility] PRN Reason: Protocol Last Admin: 10/23/16 17:44 Dose: 4 mg - Labs Labs: 10/24/16 05:35 10/24/16 05:35 PT 34.8 Seconds (9.9-11.8) H* 10/24/16 05:35 INR 3.22 (0.93-1.08) H 10/24/16 05:35 APTT 39.9 Seconds (23.7-30.8) H 10/23/16 05:40
[2016-10-24 22:14] LABS: HEMOGLOBIN 9.5 gm/dL (12.0-16.0); MEAN CELL VOLUME 88.3 fL (80.0-105.0); MEAN CORPUSCULAR HEMOGLOBIN 27.7 pg (25.0-35.0); MEAN CORPUSCULAR HGB CONC 31.4 g/dl (31.0-37.0); MEAN PLATELET VOLUME 9.9 fl (7.0-11.0); PLATELET COUNT 229 10^3/uL (120.0-450.0); RBC 3.43 10^6/uL (3.5-6.1); RED CELL DISTRIBUTION WIDTH 17.1 % (11.5-14.5); WHITE BLOOD COUNT 12.2 10^3/ul (4.5-11.0)
[2016-10-24 22:16] LABS: VENOUS BLOOD GAS BASE EXCESS 8.4 mmol/L (0.0-2.0); VENOUS BLOOD GAS PO2 69 mm/Hg (30-55); VENOUS BLOOD PH 7.45 (7.32-7.43)
[2016-10-24 22:28] LABS: ALB/GLOB RATIO 1.2 (1.1-1.8); ALBUMIN 3.5 g/dL (3.0-4.8); ALT/SGPT 28 U/L (7-56); AST/SGOT 23 U/L (15-39); BLOOD UREA NITROGEN 33 mg/dL (7-21); CALCIUM 9.4 mg/dL (8.4-10.5); GFR AFRICAN-AMERICAN > 60; GFR NON-AFRICAN AMERICAN > 60; MAGNESIUM 1.7 mg/dL (1.7-2.2)
[2016-10-24 22:35] LABS: HYPOCHROMIA SLIGHT; LYMPHOCYTE 7 % (22.0-35.0); MONOCYTE 10 % (1.0-6.0); NEUTROPHIL 83 % (50.0-70.0); PLATELET ESTIMATE NORMAL (NORMAL); POIKILOCYTOSIS SLIGHT; POLYCHROMASIA SLIGHT
[2016-10-25] MEDS: Meropenem 1g/NS 100mL IVPB 1 GM/100 ML PIGGYBACK IVPB SCH ×3 (05:19→21:35)
[2016-10-25 06:37] LABS: BASO # 0.02 K/mm3 (0.0-2.0); BASO % 0.2 % (0.0-3.0); EOS # 0.1 (0.0-0.7); EOS % 0.7 % (1.5-5.0); GRAN # 7.02 (1.4-6.5); GRAN % 77.2 % (50.0-68.0); HEMOGLOBIN 9.3 gm/dL (12.0-16.0); LYMPH # 1.1 (1.2-3.4); LYMPH % 12.1 % (22.0-35.0); MEAN CELL VOLUME 87.7 fL (80.0-105.0); MEAN PLATELET VOLUME 9.7 fl (7.0-11.0); MONO # 0.9 (0.1-0.6); MONO % 9.8 % (1.0-6.0); PLATELET COUNT 226 10^3/uL (120.0-450.0); RBC 3.32 10^6/uL (3.5-6.1); WHITE BLOOD COUNT 9.1 10^3/ul (4.5-11.0)
[2016-10-25 06:49] LABS: INR 3.78 (0.93-1.08); PROTHROMBIN TIME 40.8 Seconds (9.9-11.8)
[2016-10-25 06:51] LABS: ALB/GLOB RATIO 1.2 (1.1-1.8); ALBUMIN 3.4 g/dL (3.0-4.8); ALT/SGPT 27 U/L (7-56); AST/SGOT 24 U/L (15-39); BLOOD UREA NITROGEN 30 mg/dL (7-21); CALCIUM 9.4 mg/dL (8.4-10.5); GFR AFRICAN-AMERICAN > 60; GFR NON-AFRICAN AMERICAN > 60; MAGNESIUM 1.6 mg/dL (1.7-2.2)
[2016-10-25] MEDS: Pantoprazole 40 mg EC Tab PO SCH (07:08)
[2016-10-25] MEDS: Insulin Lispro (humaLOG) MEDIUM Coverage SC SCH ×4 (07:50→22:15)
[2016-10-25 08:01] LABS: ARTERIAL BLOOD GAS HEMOGLOBIN 10.1 g/dL (11.7-17.4); ARTERIAL BLOOD GAS O2 CONTENT 13.9 ML/dl (15-23); ARTERIAL BLOOD GAS PCO2 42 mm/Hg (35-45); ARTERIAL BLOOD GAS PH 7.49 (7.35-7.45); ARTERIAL BLOOD GAS TCO2 33.3 mmol.L (22-28)
[2016-10-25] MEDS ORDERED: Magnesium Sulfate 2 GM in Sodium Chloride 0.9% 100 ML IVPB ONE (08:32)
[2016-10-25] MEDS: Tiotropium 18 mcg Cap For Inhalation IH SCH (09:13)
[2016-10-25] MEDS: Linezolid 600 mg in D5W 300 ml 600 MG/300 ML BAG IVPB SCH ×2 (09:18→22:10)
[2016-10-25] MEDS: Ammonium Lactate 12% Lotion (225 g) EXT SCH ×2 (09:29→18:02)
[2016-10-25] MEDS: Nystatin-Triamcinolone Cream(30 gm) TOP SCH ×2 (09:30→18:04)
--- NOTE | 2016-10-25 10:38 | CP.PCM.PN ---
<HoldenNoemymatti - Last Filed: 10/25/16 10:33> Subjective - Date & Time of Evaluation Date of Evaluation: 10/25/16 Time of Evaluation: 10:33 - Subjective Subjective: 71 year old female patient seen at bedside with attending, Dr. Henriquez, for left hallux ulceration, leg erythema, and right digital ischemia. Respiratory therapy working with patient at time of visit. Patient denies any acute events overnight. Continues to complain of tenderness to the toe today, though no illicitation of pain during manipulation of left lower extremity. Patient denies chest pain, shortness of breath, headache, fever, chills, cough, nausea, vomiting, abdominal pain. No other pedal complaints at this time. Objective - Vital Signs/Intake and Output Vital Signs (last 24 hours): Temp Pulse Resp BP Pulse Ox 99.3 F 94 H 18 165/81 H 100 10/25/16 08:00 10/25/16 09:41 10/25/16 07:14 10/25/16 09:19 10/25/16 07:14 Intake and Output: 10/25/16 10/25/16 06:59 18:59 Intake Total 500 Output Total 2400 Balance -1900 - Medications Medications: Current Medications Acetaminophen (Tylenol 325mg Tab) 650 mg PO Q6H PRN PRN Reason: Fever >100.4 F Last Admin: 10/24/16 14:33 Dose: 650 mg Aspirin (Ecotrin) 81 mg PO 0800 [facility] Last Admin: 10/25/16 08:54 Dose: Not Given Aspirin (Aspirin Supp) 300 mg RC DAILY [facility] Last Admin: 10/25/16 09:19 Dose: 300 mg Furosemide (Lasix) 40 mg IVP Q12 [facility] Last Admin: 10/25/16 09:19 Dose: 40 mg Guaifenesin (Robitussin) 200 mg PO Q4H PRN PRN Reason: Cough and congestion Last Admin: 10/21/16 23:42 Dose: 200 mg Hydralazine HCl (Apresoline) 50 mg PO BID [facility] Last Admin: 10/21/16 18:32 Dose: Not Given Hydralazine HCl (Apresoline) 10 mg IVP Q6 PRN PRN Reason: give for SBP above 150 Last Admin: 10/25/16 07:09 Dose: 10 mg Meropenem 1g/NS 100mL IVPB (Meropenem 1g/Ns 100ml Ivpb) 1 gm in 100 mls @ 100 mls/hr IVPB Q8 [facility] PRN Reason: Protocol Last Admin: 10/25/16 05:19 Dose: 100 mls/hr Linezolid (Zyvox 600mg/300ml D5w) 600 mg in 300 mls @ 200 mls/hr IVPB Q12 [facility] PRN Reason: Protocol Last Admin: 10/25/16 09:18 Dose: 200 mls/hr Potassium Chloride (Potassium Chloride 10 Meq/100 Ml) 10 meq in 100 mls @ 100 mls/hr IVPB Q2H [facility] Stop: 10/25/16 11:44 Last Admin: 10/25/16 08:55 Dose: 100 mls/hr Insulin Human Lispro (Humalog Med) 0 units SC ACHS [facility] PRN Reason: Protocol Last Admin: 10/25/16 07:50 Dose: Not Given Isosorbide Mononitrate (Imdur) 60 mg PO DAILY [facility] Last Admin: 10/21/16 09:54 Dose: Not Given Lactic Acid (Lac-Hydrin 12% Lotion (225 G)) 0 gm EXT BID [facility] Last Admin: 10/25/16 09:29 Dose: 1 applic Levalbuterol HCl (Xopenex) 1.25 mg IH [id number] PRN PRN Reason: Shortness of Breath Last Admin: 10/23/16 21:11 Dose: 1.25 mg Metoprolol Tartrate (Lopressor) 25 mg PO BID [facility] Last Admin: 10/25/16 09:41 Dose: Not Given Mupirocin (Bactroban Ointment) 0 gm TOP BID [facility] Last Admin: 10/25/16 09:29 Dose: 1 applic Nicotine (Nicoderm Cq) 1 patch TD DAILY [facility] Last Admin: 10/25/16 09:17 Dose: 1 patch Nystatin/Triamcinolone Acetonide (Nystatin/Triamcinolone Cream) 0 ea TOP BID [facility] Last Admin: 10/25/16 09:30 Dose: 1 applic Pantoprazole Sodium (Protonix Inj) 40 mg IVP DAILY [facility] Last Admin: 10/25/16 09:18 Dose: 40 mg Risperidone (Risperdal Tab) 0.25 mg PO BID [facility] PRN Reason: Protocol Last Admin: 10/25/16 09:13 Dose: Not Given Tiotropium [place] (Spiriva) 18 mcg IH DAILY [facility] Last Admin: 10/25/16 09:13 Dose: Not Given Valsartan (Diovan) 320 mg PO DAILY [facility] Last Admin: 10/21/16 09:54 Dose: Not Given Warfarin Sodium (Coumadin) 4 mg PO 1800 [facility] PRN Reason: Protocol Last Admin: 10/23/16 17:44 Dose: 4 mg - Labs Labs: 10/25/16 06:00 10/25/16 06:00 PT 40.8 Seconds (9.9-11.8) H* 10/25/16 06:00 INR 3.78 (0.93-1.08) H* 10/25/16 06:00 APTT 39.9 Seconds (23.7-30.8) H 10/23/16 05:40 - Constitutional Appears: Well, Non-toxic, No Acute Distress - Extremities Exam Additional comments: Lower extremity focused exam: Vasc: DP and PT pulses non-palpable B/L secondary to edema. +2 pitting edema noted to left lower extremity. CFT < 4 seconds to digits 1-5 B/L. Derm: Left: Partial thickness ulceration with fibrotic central eschar noted to medial aspect of left hallux measuring approximately 3.8 cm x 3.2cm. Marita-wound margins absent maceration. Fibrotic wound base border noted. No active drainage or exudate noted. No malodor, no fluctuance or other clinical signs of infection are noted at this time. Left lower leg non-blanchable erythema and callor extending from supra-malleolar level to tibial tuberosity circumfrentially. Right: Plantar distal tuft of hallux and 5th digit show ischemic changes, cold to touch, and darkening Neuro: Gross sensation diminished b/l Ortho: Mild tenderness noted on palpation of dorsal hallux - Neurological Exam Neurological Exam: Alert, Awake, Oriented x3 - Psychiatric Exam Psychiatric exam: Normal Affect, Normal Mood Assessment and Plan - Assessment and Plan (Free Text) Assessment: 71 year old female with 1) Left hallux ulceration secondary to DM and PVD. 2) Left lower leg vasculopathy vs less likely cellulits. 3) Right foot ischemia of 1st and 5th digits secondary to PVD. Plan: Pt seen and evaluated at bedside with attending, Dr. Henriquez. Chart, labs and vitals reviewed; pt is afebrile, WBC WNL @ 9.1 Left hallux cleansed with sterile saline. Bactroban applied to dorsal hallux and dressed with 4x4s and kerlix. Continue IV abx per ID. Podiatry will continue to follow patient while inhouse. <Deric Henriquez - Last Filed: 10/28/16 11:56> Objective - Vital Signs/Intake and Output Vital Signs (last 24 hours): Temp Pulse Resp BP Pulse Ox 98.1 F 87 13 162/94 H 98 10/28/16 04:00 10/28/16 10:02 10/28/16 05:01 10/28/16 10:02 10/28/16 05:01 Intake and Output: 10/28/16 10/28/16 06:59 18:59 Intake Total 450 Output Total 1500 Balance -1050 - Medications Medications: Current Medications Acetaminophen (Tylenol 325mg Tab) 650 mg PO Q6H PRN PRN Reason: Fever >100.4 F Last Admin: 10/28/16 11:23 Dose: 650 mg Aspirin (Ecotrin) 81 mg PO 0800 [facility] Last Admin: 10/28/16 10:02 Dose: 81 mg Furosemide (Lasix) 40 mg IVP Q12 [facility] Last Admin: 10/28/16 10:02 Dose: 40 mg Guaifenesin (Robitussin) 200 mg PO Q4H PRN PRN Reason: Cough and congestion Last Admin: 10/21/16 23:42 Dose: 200 mg Hydralazine HCl (Apresoline) 50 mg PO BID [facility] Last Admin: 10/21/16 18:32 Dose: Not Given Hydralazine HCl (Apresoline) 10 mg IVP Q6 PRN PRN Reason: give for SBP above 150 Last Admin: 10/26/16 14:41 Dose: 10 mg Meropenem 1g/NS 100mL IVPB (Meropenem 1g/Ns 100ml Ivpb) 1 gm in 100 mls @ 100 mls/hr IVPB Q8 [facility] PRN Reason: Protocol Last Admin: 10/28/16 06:02 Dose: 100 mls/hr Linezolid (Zyvox 600mg/300ml D5w) 600 mg in 300 mls @ 200 mls/hr IVPB Q12 [facility] PRN Reason: Protocol Last Admin: 10/28/16 09:54 Dose: 200 mls/hr Propofol (Diprivan) 1,000 mg in 100 mls @ 3.333 mls/hr IV .Q24H PRN; Protocol; 5 MCG/KG/MIN PRN Reason: TITRATE PER MD ORDER Last Admin: 10/27/16 10:31 Dose: 10 mcg/kg/min, 6.665 mls/hr Insulin Human Lispro (Humalog Med) 0 units SC ACHS [facility] PRN Reason: Protocol Last Admin: 10/28/16 08:08 Dose: Not Given Isosorbide Mononitrate (Imdur) 60 mg PO DAILY [facility] Last Admin: 10/21/16 09:54 Dose: Not Given Lactic Acid (Lac-Hydrin 12% Lotion (225 G)) 0 gm EXT BID [facility] Last Admin: 10/28/16 11:44 Dose: 1 applic Levalbuterol HCl (Xopenex) 1.25 mg IH [id number] PRN PRN Reason: Shortness of Breath Last Admin: 10/27/16 02:20 Dose: 1.25 mg Metoprolol Tartrate (Lopressor) 25 mg PO BID [facility] Last Admin: 10/28/16 10:02 Dose: 25 mg Mupirocin (Bactroban Ointment) 0 gm TOP BID [facility] Last Admin: 10/28/16 11:37 Dose: 1 applic Nicotine (Nicoderm Cq) 1 patch TD DAILY [facility] Last Admin: 10/27/16 10:29 Dose: 1 patch Nystatin/Triamcinolone Acetonide (Nystatin/Triamcinolone Cream) 0 ea TOP BID [facility] Last Admin: 10/28/16 11:37 Dose: 1 applic Pantoprazole Sodium (Protonix Inj) 40 mg IVP DAILY [facility] Last Admin: 10/28/16 10:01 Dose: 40 mg Risperidone (Risperdal Tab) 0.25 mg PO BID [facility] PRN Reason: Protocol Last Admin: 10/28/16 11:24 Dose: 0.25 mg Spironolactone (Aldactone) 25 mg PO DAILY [facility] Last Admin: 10/28/16 11:23 Dose: 25 mg Tiotropium [place] (Spiriva) 18 mcg IH DAILY [facility] Last Admin: 10/28/16 10:02 Dose: 18 mcg Valsartan (Diovan) 320 mg PO DAILY [facility] Last Admin: 10/21/16 09:54 Dose: Not Given Warfarin Sodium (Coumadin) 2 mg PO 1800 [facility] PRN Reason: Protocol - Labs Labs: 10/28/16 05:50 10/28/16 05:50 PT 29.4 Seconds (9.9-11.8) H 10/28/16 05:50 INR 2.72 (0.93-1.08) H 10/28/16 05:50 APTT 39.9 Seconds (23.7-30.8) H 10/23/16 05:40 Attending/Attestation - Attestation I have personally seen and examined this patient.: Yes I have fully participated in the care of the patient.: Yes I have reviewed all pertinent clinical information, including history, physical exam and plan: Yes
--- NOTE | 2016-10-25 10:47 | CARD ---
APPROVED REPORT EKG Measurement Heart [id number] <Conclusion> AF with RVR ASMI, age unknown IVCD STTW changes c/w ischemia RAD
--- NOTE | 2016-10-25 11:27 | CP.PCM.PN ---
Subjective - Date & Time of Evaluation Date of Evaluation: 10/25/16 Time of Evaluation: 10:30 - Subjective Subjective: Noted patient to have been intubated overnight. No fevers noted, not in distress but on the ventilator. Objective - Vital Signs/Intake and Output Vital Signs (last 24 hours): Temp Pulse Resp BP Pulse Ox 98.1 F 79 22 169/73 H 97 10/25/16 00:00 10/25/16 03:00 10/24/16 18:16 10/25/16 03:00 10/25/16 03:00 - Medications Medications: Current Medications Acetaminophen (Tylenol 325mg Tab) 650 mg PO Q6H PRN PRN Reason: Fever >100.4 F Last Admin: 10/24/16 14:33 Dose: 650 mg Aspirin (Ecotrin) 81 mg PO 0800 [facility] Last Admin: 10/24/16 08:53 Dose: Not Given Furosemide (Lasix) 40 mg IVP Q12 [facility] Last Admin: 10/24/16 22:50 Dose: 40 mg Guaifenesin (Robitussin) 200 mg PO Q4H PRN PRN Reason: Cough and congestion Last Admin: 10/21/16 23:42 Dose: 200 mg Hydralazine HCl (Apresoline) 50 mg PO BID [facility] Last Admin: 10/21/16 18:32 Dose: Not Given Hydralazine HCl (Apresoline) 10 mg IVP Q6 PRN PRN Reason: give for SBP above 150 Last Admin: 10/25/16 01:18 Dose: 10 mg Meropenem 1g/NS 100mL IVPB (Meropenem 1g/Ns 100ml Ivpb) 1 gm in 100 mls @ 100 mls/hr IVPB Q8 [facility] PRN Reason: Protocol Last Admin: 10/25/16 05:19 Dose: 100 mls/hr Linezolid (Zyvox 600mg/300ml D5w) 600 mg in 300 mls @ 200 mls/hr IVPB Q12 [facility] PRN Reason: Protocol Last Admin: 10/24/16 23:39 Dose: 200 mls/hr Insulin Human Lispro (Humalog Med) 0 units SC ACHS [facility] PRN Reason: Protocol Last Admin: 10/24/16 22:00 Dose: Not Given Isosorbide Mononitrate (Imdur) 60 mg PO DAILY [facility] Last Admin: 10/21/16 09:54 Dose: Not Given Lactic Acid (Lac-Hydrin 12% Lotion (225 G)) 0 gm EXT BID [facility] Last Admin: 10/24/16 18:35 Dose: 1 applic Levalbuterol HCl (Xopenex) 1.25 mg IH [id number] PRN PRN Reason: Shortness of Breath Last Admin: 10/23/16 21:11 Dose: 1.25 mg Metoprolol Tartrate (Lopressor) 25 mg PO BID [facility] Last Admin: 10/24/16 18:18 Dose: Not Given Mupirocin (Bactroban Ointment) 0 gm TOP BID [facility] Last Admin: 10/24/16 18:36 Dose: 1 applic Nicotine (Nicoderm Cq) 1 patch TD DAILY [facility] Last Admin: 10/24/16 10:39 Dose: 1 patch Nystatin/Triamcinolone Acetonide (Nystatin/Triamcinolone Cream) 0 ea TOP BID [facility] Last Admin: 10/24/16 18:58 Dose: 1 applic Pantoprazole Sodium (Protonix Ec Tab) 40 mg PO 0600 [facility] Last Admin: 10/24/16 06:01 Dose: 40 mg Risperidone (Risperdal Tab) 0.25 mg PO BID [facility] PRN Reason: Protocol Last Admin: 10/24/16 18:25 Dose: Not Given Tiotropium [place] (Spiriva) 18 mcg IH DAILY [facility] Last Admin: 10/24/16 10:37 Dose: 18 mcg Valsartan (Diovan) 320 mg PO DAILY [facility] Last Admin: 10/21/16 09:54 Dose: Not Given Warfarin Sodium (Coumadin) 4 mg PO 1800 [facility] PRN Reason: Protocol Last Admin: 10/23/16 17:44 Dose: 4 mg - Labs Labs: 10/25/16 06:00 10/25/16 06:00 PT 40.8 Seconds (9.9-11.8) H* 10/25/16 06:00 INR 3.78 (0.93-1.08) H* 10/25/16 06:00 APTT 39.9 Seconds (23.7-30.8) H 10/23/16 05:40 - Constitutional Appears: Other (Intubated and sedated) - ENT Exam Additional comments: Et tube in place - Neck Exam Neck Exam: absent: Meningismus - Respiratory Exam Respiratory Exam: Decreased Breath Sounds - Cardiovascular Exam Cardiovascular Exam: +S1, +S2 - GI/Abdominal Exam GI & Abdominal Exam: Soft. absent: Tenderness Assessment and Plan - Assessment and Plan (Free Text) Plan: Assessment Systemic Inflammatory Response Syndrome, consider sepsis from UTI, and cellulitis of the left foot, slowly improving Ventilator-dependent respiratory failure probably from hypoventilation history of infected diabetic ulceration of the left hallux associated with trauma with probable peripheral vascular disease, growing MRSA - no evidence of osteomyelitis on MRI - S/P arthrectomy and angioplasty of left sided lower extremity vasculature S/P Sepsis with acute hypoxic respiratory failure secondary to left-sided healthcare-associated pneumonia with possible gram positive cocci and/or gram negative bacilli, clinically improved and S/P treatment as well as sepsis from persistent methicillin-resistant coagulase negative staph bacteremia , probably port infection S/P removal of the port history of Group G Strep bacteremia history of E. coli UTI history of healthcare-associated pneumonia acute renal failure obesity with BMI 38 CAD GERD arthritis history of bilateral knee replacements chronic CHF COPD DM history of breast CA History of Strep bovis bacteremia (2012) S/P Port-a-cath placement Plan continue Zyvox and Merrem day 5; toe cx growing E. faecalis and Pseudomonas, urine growing Klebsiella; reviewed CXR which does not show infiltrates follow up Dr. Maldonado Barnett's evaluation of the patient's peripheral vascular disease will continue to follow clinically
--- NOTE | 2016-10-25 12:24 | RAD ---
HISTORY: intubated COMPARISON: 10/23/2016 FINDINGS: LUNGS: The endotracheal tube is in satisfactory position. There is vascular congestion with interstitial infiltrates consistent with CHF PLEURA: No significant pleural effusion identified, no pneumothorax apparent. CARDIOVASCULAR: Moderate cardiomegaly OSSEOUS STRUCTURES: No significant abnormalities. VISUALIZED UPPER ABDOMEN: Normal. OTHER FINDINGS: None. IMPRESSION: The endotracheal tube is in satisfactory position. There is vascular congestion with interstitial infiltrates consistent with CHF
--- NOTE | 2016-10-25 12:26 | PN ---
SUBJECTIVE: Events of the last 24 hours noted. The patient was transferred to the floor, developed a cardiac arrest, and she was intubated and brought back to the ICU. She is currently on ventilator. The patient was felt to have pulmonary edema on her chest x-ray. The patient appears to be asleep. MEDICATIONS: Medication list reviewed. The patient is currently on p.r.n. hydralazine, aspirin, mupirocin, Ecotrin, IV Lasix, Lopressor, meropenem, NiQuitin CQ, nystatin, triamcinolone cream, Protonix, Risperdal, Robitussin, Spiriva, Tylenol, Xopenex, and Zyvox. PHYSICAL EXAMINATION INTAKE/OUTPUT: Intake 1660 and output 4700. VITAL SIGNS: Blood pressure 165/81, temperature 99.3, pulse 94, and respiratory rate of 18 on ventilator. HEENT: Eyes are closed. The patient is intubated. NECK: No neck vein distention. CHEST: Scattered rhonchi and rales. Decreased breath sounds at the bases. CARDIAC: S1 and S2 normal. No audible murmurs, rubs, or gallops. ABDOMEN: Obese. No distention. Soft and nontender. Bowel sounds are normal. EXTREMITIES: Lower extremity mild erythema with edema 1+ bilaterally. NEUROLOGIC: Difficult to asses. LABORATORY DATA AND IMAGING: Chest x-ray done at the time of culture, pulmonary edema, and followup chest x-ray reports are pending. CBC; white blood cell count today 9.1, hemoglobin 9.2 with a platelet count of 226,000. Blood gas today; pO2 of 145, pH of 7.49, and pCO2 of 42. Chemistry show sodium of 142, potassium low at 3.3, chloride 99 with CO2 of 34, BUN is improved from yesterday, it is 30 down from 33, and creatinine is stable at 0.9. Glucose is 134. Calcium 9.4, phosphorous 2.4, and magnesium level 1.6. Liver enzymes are normal. Albumin is 3.4. Microbiology; wound cultures are positive for Pseudomonas and Enterococcus from her toe. Urine is positive for Klebsiella. ASSESSMENT: 1. Stable renal parameters. The patient remains mildly prerenal, this will likely worsen with IV diuretic therapy. The patient has a negative fluid balance as her chest x-ray at the time of the culture and pulmonary edema. 2. Mild hypokalemia. Today, the patient is receiving potassium supplements. Borderline low magnesium, the patient might need magnesium supplements also. 3. Lower extremity cellulitis left leg with wound cultures positive for Pseudomonas and Enterococcus. The patient is on appropriate antibiotic therapy. This appears to be improving. 4. Klebsiella urinary tract infection on appropriate antibiotic therapy, this appears to be improving. 5. No history of baseline chronic kidney disease, baseline creatinine is less than 1.0. 6. Anemia impart secondary to infection with bone marrow suppression impart secondary to iron deficiency. The patient's iron saturations were extremely low. The patient would be a candidate for IV Venofer therapy as long as she is not septicemic. 7. History of morbid obesity. 8. History of [id number] diabetes mellitus. 9. History of hypertension, blood pressure is currently controlled on present therapy. 10. History of peripheral vascular disease, status post angioplasty currently stable. PLAN: 1. Discussed with ICU staff. Agree with potassium and magnesium supplements. 2. From my standpoint, the patient may receive IV Venofer infusion in light of her iron saturation of 5% on her anemia. 3. Continue to monitor accurate I's and O's, in light of the fact that she is on diuretic therapy and presented with pulmonary edema. Once her chest x-ray clears, the patient should be easy to extubate. 4. Daily labs. 5. Close renal followup. Greater than 35 minutes spent in the care of this patient. El Walden MD MTDD
--- NOTE | 2016-10-25 12:50 | CP.CCUPN ---
CCU Subjective - Physician Review Events Since Last Encounter (Free Text): 10/25/16 12:47 71 y/o F who remained intubated overnight for Hypoxemic failure Mental status sluggish despite no sedation. No focal neurological deficits CCU Objective - Vital Signs / Intake & Output Vital Signs (Last 4 hours): Vital Signs Pulse BP Pulse Ox 10/25/16 11:00 81 156/75 H 95 10/25/16 10:00 87 151/73 H 95 10/25/16 09:41 94 H 10/25/16 09:19 165/81 H 10/25/16 09:00 82 165/81 H 93 L Intake and Output (Last 8hrs): Intake & Output 10/24/16 10/25/16 10/25/16 22:59 06:59 14:59 Intake Total 1160 500 Output Total 2300 2400 Balance -1140 -1900 Weight 244 lb 9 oz Intake: IV 400 Right Forearm 400 Oral 760 Other 500 Output: Urine 2300 2400 2-way Urethral 2300 2400 Other: Voiding Method Indwelling Catheter Indwelling Catheter # Bowel Movements 1 0 - Physical Exam Head: Positive for: Atraumatic, Normocephalic Pupils: Positive for: PERRL Extroacular Muscles: Positive for: EOMI Conjunctiva: Positive for: Normal Mouth: Positive for: Moist Mucous Membranes Neck: Positive for: Normal Range of Motion Respiratory/Chest: Positive for: Clear to Auscultation, Good Air Exchange. Negative for: Respiratory Distress, Accessory Muscle Use Cardiovascular: Positive for: Regular Rate and Rhythm, Normal S1, S2. Negative for: Murmurs Abdomen: Positive for: Normal Bowel Sounds. Negative for: Tenderness, Distention, Peritoneal Signs Back: Positive for: Normal Inspection Upper Extremity: Positive for: Normal Inspection. Negative for: Cyanosis, Edema Lower Extremity: Positive for: Normal Inspection, Erythema (left leg ), Other ( left foot ulcer healing and no warmth). Negative for: Edema Neurological: Positive for: GCS=15, CN II-XII Intact, Speech Normal Skin: Positive for: Warm, Dry, Normal Color. Negative for: Rashes Psychiatric: Positive for: Alert, Oriented x 3, Normal Insight, Normal Concentration - Medications Active Medications: Active Medications Generic Name Dose Route Start Last Admin Trade Name Freq PRN Reason Stop Dose Admin Acetaminophen 650 mg 10/20/16 22:15 10/24/16 14:33 Tylenol 325mg Tab PO 650 mg Q6H PRN Administration Fever >100.4 F Aspirin 81 mg 10/21/16 08:00 10/25/16 08:54 Ecotrin PO Not Given 0800 [facility] Aspirin 300 mg 10/25/16 10:00 10/25/16 09:19 Aspirin Supp RC 300 mg DAILY [facility] Administration Furosemide 40 mg 10/23/16 10:00 10/25/16 09:19 Lasix IVP 40 mg Q12 [facility] Administration Guaifenesin 200 mg 10/21/16 23:29 10/21/16 23:42 Robitussin PO 200 mg Q4H PRN Administration Cough and congestion Hydralazine HCl 50 mg 10/21/16 10:00 10/21/16 18:32 Apresoline PO Not Given BID [facility] Hydralazine HCl 10 mg 10/25/16 00:08 10/25/16 07:09 Apresoline IVP 10 mg Q6 PRN Administration give for SBP above 150 Meropenem 1g/NS 100mL IVPB 1 gm in 100 mls @ 100 mls/hr 10/22/16 16:15 05:19 Meropenem 1g/Ns 100ml Ivpb IVPB 100 mls/hr Q8 [facility] Administration Protocol Linezolid 600 mg in 300 mls @ 200 mls/hr 10/22/16 22:00 10/25/16 09:18 Zyvox 600mg/300ml D5w IVPB 200 mls/hr Q12 [facility] Administration Protocol Potassium Chloride 10 meq in 100 mls @ 100 mls/hr 10/25/16 12:00 Potassium Chloride 10 Meq/100 Ml IVPB 10/25/16 14:59 Q2H [facility] Insulin Human Lispro 0 units 10/21/16 07:30 10/25/16 07:50 Humalog Med SC Not Given ACHS [facility] Protocol Isosorbide Mononitrate 60 mg 10/21/16 10:00 10/21/16 09:54 Imdur PO Not Given DAILY [facility] Lactic Acid 0 gm 10/21/16 10:00 10/25/16 09:29 Lac-Hydrin 12% Lotion (225 G) EXT 1 applic BID [facility] Administration Levalbuterol HCl 1.25 mg 10/20/16 22:15 10/23/16 21:11 Xopenex IH 1.25 mg [id number] PRN Administration Shortness of Breath Metoprolol Tartrate 25 mg 10/23/16 10:00 10/25/16 09:41 Lopressor PO Not Given BID [facility] Mupirocin 0 gm 10/21/16 18:00 10/25/16 09:29 Bactroban Ointment TOP 1 applic BID [facility] Administration Nicotine 1 patch 10/21/16 10:00 10/25/16 09:17 Nicoderm Cq TD 1 patch DAILY [facility] Administration Nystatin/Triamcinolone Acetonide 0 ea 10/21/16 10:00 10/25/16 09:30 Nystatin/Triamcinolone Cream TOP 1 applic BID [facility] Administration Pantoprazole Sodium 40 mg 10/25/16 10:00 10/25/16 09:18 Protonix Inj IVP 40 mg DAILY [facility] Administration Risperidone 0.25 mg 10/24/16 10:00 10/25/16 09:13 Risperdal Tab PO Not Given BID [facility] Protocol Tiotropium [place] 18 mcg 10/21/16 10:00 10/25/16 09:13 Spiriva IH Not Given DAILY [facility] Valsartan 320 mg 10/21/16 10:00 10/21/16 09:54 Diovan PO Not Given DAILY [facility] Warfarin Sodium 4 mg 10/21/16 18:00 10/23/16 17:44 Coumadin PO 4 mg 1800 [facility] Administration Protocol - Patient Studies Lab Studies: Lab Studies 10/25/16 10/25/16 10/25/16 Range/Units 11:22 07:50 07:38 WBC (4.5-11.0) 10^3/ul RBC (3.5-6.1) 10^6/uL Hgb (12.0-16.0) gm/dL Hct (36.0-48.0) % MCV (80.0-105.0) fL MCH (25.0-35.0) pg MCHC (31.0-37.0) g/dl RDW (11.5-14.5) % Plt Count (120.0-450.0) 10^3/uL MPV (7.0-11.0) fl Gran % (50.0-68.0) % Lymph % (Auto) (22.0-35.0) % [place] % (Auto) (1.0-6.0) % Eos % (Auto) (1.5-5.0) % Baso % (Auto) (0.0-3.0) % Gran # (1.4-6.5) Lymph # (1.2-3.4) [place] # (0.1-0.6) Eos # (0.0-0.7) Baso # (0.0-2.0) K/mm3 Neutrophils % (Manual) (50.0-70.0) % Lymphocytes % (Manual) (22.0-35.0) % Monocytes % (Manual) (1.0-6.0) % Platelet Evaluation (NORMAL) Polychromasia Hypochromasia Poikilocytosis (manual PT (9.9-11.8) Seconds INR (0.93-1.08) pCO2 42 (35-45) mm/Hg pO2 145.0 H (80-100) mm/Hg HCO3 32.0 H (21-28) mmol/L ABG pH 7.49 H (7.35-7.45) ABG Total CO2 33.3 H (22-28) mmol.L ABG O2 Saturation 99.0 H (95-98) % ABG O2 Content 13.9 L (15-23) ML/dl ABG Base Excess 7.9 H (-2.0-3.0) mmol/L ABG Hemoglobin 10.1 L (11.7-17.4) g/dL ABG Carboxyhemoglobin 2.0 H (0.5-1.5) % POC ABG HHb (Measured) 1.0 (0-5) % ABG Methemoglobin 1.0 (0.0-3.0) % ABG O2 Capacity 14.0 L (16-24) mL/dl ABG Potassium (3.6-5.2) mmol/L VBG pH (7.32-7.43) VBG pCO2 (40-60) VBG HCO3 (21-28) mmol/l VBG Total CO2 (22-28) mmol.L VBG O2 Sat (Calc) (40-65) % VBG Base Excess (0.0-2.0) mmol/L VBG Potassium (3.6-5.2) mmol/L Hgb O2 Saturation 96.0 (95.0-98.0) % Sodium (132-148) mmol/L Chloride (98-107) mmol/L Glucose (65-105) mg/dl Lactate (0.7-2.1) mmol/L FiO2 50.0 % Potassium (3.6-5.0) mmol/L Carbon Dioxide (21-33) mmol/L Anion Gap (10-20) BUN (7-21) mg/dL Creatinine (0.5-1.4) mg/dL Est GFR ( Amer) Est GFR (Non-Af Amer) POC Glucose (mg/dL) 172 H 137 H (65-110) mg/dL Random Glucose (70-110) mg/dL Calcium (8.4-10.5) mg/dL Phosphorus (2.5-4.5) mg/dL Magnesium (1.7-2.2) mg/dL Total Bilirubin (0.2-1.3) mg/dL AST (15-39) U/L ALT (7-56) U/L Alkaline Phosphatase (38-133) U/L Total Protein (5.8-8.3) g/dL Albumin (3.0-4.8) g/dL Globulin gm/dL Albumin/Globulin Ratio (1.1-1.8) Arterial Blood Potassium (3.6-5.2) mmol/L Venous Blood Potassium (3.6-5.2) mmol/L 10/25/16 10/25/16 10/25/16 Range/Units 06:00 06:00 06:00 WBC 9.1 D (4.5-11.0) 10^3/ul RBC 3.32 L (3.5-6.1) 10^6/uL Hgb 9.3 L (12.0-16.0) gm/dL Hct 29.1 L (36.0-48.0) % MCV 87.7 (80.0-105.0) fL MCH 28.0 (25.0-35.0) pg MCHC 32.0 (31.0-37.0) g/dl RDW 17.0 H (11.5-14.5) % Plt Count 226 (120.0-450.0) 10^3/uL MPV 9.7 (7.0-11.0) fl Gran % 77.2 H (50.0-68.0) % Lymph % (Auto) 12.1 L (22.0-35.0) % [place] % (Auto) 9.8 H (1.0-6.0) % Eos % (Auto) 0.7 L (1.5-5.0) % Baso % (Auto) 0.2 (0.0-3.0) % Gran # 7.02 H (1.4-6.5) Lymph # 1.1 L (1.2-3.4) [place] # 0.9 H (0.1-0.6) Eos # 0.1 (0.0-0.7) Baso # 0.02 (0.0-2.0) K/mm3 Neutrophils % (Manual) (50.0-70.0) % Lymphocytes % (Manual) (22.0-35.0) % Monocytes % (Manual) (1.0-6.0) % Platelet Evaluation (NORMAL) Polychromasia Hypochromasia Poikilocytosis (manual PT 40.8 H* (9.9-11.8) Seconds INR 3.78 H* (0.93-1.08) pCO2 (35-45) mm/Hg pO2 (80-100) mm/Hg HCO3 (21-28) mmol/L ABG pH (7.35-7.45) ABG Total CO2 (22-28) mmol.L ABG O2 Saturation (95-98) % ABG O2 Content (15-23) ML/dl ABG Base Excess (-2.0-3.0) mmol/L ABG Hemoglobin (11.7-17.4) g/dL ABG Carboxyhemoglobin (0.5-1.5) % POC ABG HHb (Measured) (0-5) % ABG Methemoglobin (0.0-3.0) % ABG O2 Capacity (16-24) mL/dl ABG Potassium (3.6-5.2) mmol/L VBG pH (7.32-7.43) VBG pCO2 (40-60) VBG HCO3 (21-28) mmol/l VBG Total CO2 (22-28) mmol.L VBG O2 Sat (Calc) (40-65) % VBG Base Excess (0.0-2.0) mmol/L VBG Potassium (3.6-5.2) mmol/L Hgb O2 Saturation (95.0-98.0) % Sodium 142 (132-148) mmol/L Chloride 99 (98-107) mmol/L Glucose (65-105) mg/dl Lactate (0.7-2.1) mmol/L FiO2 % Potassium 3.3 L (3.6-5.0) mmol/L Carbon Dioxide 34 H (21-33) mmol/L Anion Gap 12 (10-20) BUN 30 H (7-21) mg/dL Creatinine 0.9 (0.5-1.4) mg/dL Est GFR ( Amer) > 60 Est GFR (Non-Af Amer) > 60 POC Glucose (mg/dL) (65-110) mg/dL Random Glucose 134 H (70-110) mg/dL Calcium 9.4 (8.4-10.5) mg/dL Phosphorus 2.4 L (2.5-4.5) mg/dL Magnesium 1.6 L (1.7-2.2) mg/dL Total Bilirubin 0.7 (0.2-1.3) mg/dL AST 24 (15-39) U/L ALT 27 (7-56) U/L Alkaline Phosphatase 105 (38-133) U/L Total Protein 6.2 (5.8-8.3) g/dL Albumin 3.4 (3.0-4.8) g/dL Globulin 2.8 gm/dL Albumin/Globulin Ratio 1.2 (1.1-1.8) Arterial Blood Potassium (3.6-5.2) mmol/L Venous Blood Potassium (3.6-5.2) mmol/L 10/24/16 10/24/16 10/24/16 Range/Units 22:00 22:00 22:00 WBC 12.2 H D (4.5-11.0) 10^3/ul RBC 3.43 L (3.5-6.1) 10^6/uL Hgb 9.5 L (12.0-16.0) gm/dL Hct 30.3 L (36.0-48.0) % MCV 88.3 (80.0-105.0) fL MCH 27.7 (25.0-35.0) pg MCHC 31.4 (31.0-37.0) g/dl RDW 17.1 H (11.5-14.5) % Plt Count 229 (120.0-450.0) 10^3/uL MPV 9.9 (7.0-11.0) fl Gran % (50.0-68.0) % Lymph % (Auto) (22.0-35.0) % [place] % (Auto) (1.0-6.0) % Eos % (Auto) (1.5-5.0) % Baso % (Auto) (0.0-3.0) % Gran # (1.4-6.5) Lymph # (1.2-3.4) [place] # (0.1-0.6) Eos # (0.0-0.7) Baso # (0.0-2.0) K/mm3 Neutrophils % (Manual) 83 H (50.0-70.0) % Lymphocytes % (Manual) 7 L (22.0-35.0) % Monocytes % (Manual) 10 H (1.0-6.0) % Platelet Evaluation Normal (NORMAL) Polychromasia Slight Hypochromasia Slight Poikilocytosis (manual Slight PT (9.9-11.8) Seconds INR (0.93-1.08) pCO2 (35-45) mm/Hg pO2 69 H (80-100) mm/Hg HCO3 (21-28) mmol/L ABG pH (7.35-7.45) ABG Total CO2 (22-28) mmol.L ABG O2 Saturation (95-98) % ABG O2 Content (15-23) ML/dl ABG Base Excess (-2.0-3.0) mmol/L ABG Hemoglobin (11.7-17.4) g/dL ABG Carboxyhemoglobin (0.5-1.5) % POC ABG HHb (Measured) (0-5) % ABG Methemoglobin (0.0-3.0) % ABG O2 Capacity (16-24) mL/dl ABG Potassium (3.6-5.2) mmol/L VBG pH 7.45 H (7.32-7.43) VBG pCO2 48.0 (40-60) VBG HCO3 33.4 H (21-28) mmol/l VBG Total CO2 34.9 H (22-28) mmol.L VBG O2 Sat (Calc) 97.0 H (40-65) % VBG Base Excess 8.4 H (0.0-2.0) mmol/L VBG Potassium 3.8 (3.6-5.2) mmol/L Hgb O2 Saturation (95.0-98.0) % Sodium 141.0 140 (132-148) mmol/L Chloride 108.0 H 101 (98-107) mmol/L Glucose 202 H (65-105) mg/dl Lactate 1.9 (0.7-2.1) mmol/L FiO2 21.0 % Potassium 3.7 (3.6-5.0) mmol/L Carbon Dioxide 30 (21-33) mmol/L Anion Gap 13 (10-20) BUN 33 H (7-21) mg/dL Creatinine 0.9 (0.5-1.4) mg/dL Est GFR ( Amer) > 60 Est GFR (Non-Af Amer) > 60 POC Glucose (mg/dL) (65-110) mg/dL Random Glucose 190 H (70-110) mg/dL Calcium 9.4 (8.4-10.5) mg/dL Phosphorus 2.4 L (2.5-4.5) mg/dL Magnesium 1.7 (1.7-2.2) mg/dL Total Bilirubin 0.7 (0.2-1.3) mg/dL AST 23 (15-39) U/L ALT 28 (7-56) U/L Alkaline Phosphatase 109 (38-133) U/L Total Protein 6.4 (5.8-8.3) g/dL Albumin 3.5 (3.0-4.8) g/dL Globulin 2.9 gm/dL Albumin/Globulin Ratio 1.2 (1.1-1.8) Arterial Blood Potassium (3.6-5.2) mmol/L Venous Blood Potassium 3.8 (3.6-5.2) mmol/L 10/24/16 10/24/16 10/24/16 Range/Units 18:19 17:45 17:04 WBC (4.5-11.0) 10^3/ul RBC (3.5-6.1) 10^6/uL Hgb (12.0-16.0) gm/dL Hct (36.0-48.0) % MCV (80.0-105.0) fL MCH (25.0-35.0) pg MCHC (31.0-37.0) g/dl RDW (11.5-14.5) % Plt Count (120.0-450.0) 10^3/uL MPV (7.0-11.0) fl Gran % (50.0-68.0) % Lymph % (Auto) (22.0-35.0) % [place] % (Auto) (1.0-6.0) % Eos % (Auto) (1.5-5.0) % Baso % (Auto) (0.0-3.0) % Gran # (1.4-6.5) Lymph # (1.2-3.4) [place] # (0.1-0.6) Eos # (0.0-0.7) Baso # (0.0-2.0) K/mm3 Neutrophils % (Manual) (50.0-70.0) % Lymphocytes % (Manual) (22.0-35.0) % Monocytes % (Manual) (1.0-6.0) % Platelet Evaluation (NORMAL) Polychromasia Hypochromasia Poikilocytosis (manual PT (9.9-11.8) Seconds INR (0.93-1.08) pCO2 58 H (35-45) mm/Hg pO2 203.0 H (80-100) mm/Hg HCO3 26.0 (21-28) mmol/L ABG pH 7.26 L (7.35-7.45) ABG Total CO2 27.8 (22-28) mmol.L ABG O2 Saturation 99.6 H (95-98) % ABG O2 Content (15-23) ML/dl ABG Base Excess -2.1 L (-2.0-3.0) mmol/L ABG Hemoglobin (11.7-17.4) g/dL ABG Carboxyhemoglobin (0.5-1.5) % POC ABG HHb (Measured) (0-5) % ABG Methemoglobin (0.0-3.0) % ABG O2 Capacity (16-24) mL/dl ABG Potassium 3.9 (3.6-5.2) mmol/L VBG pH (7.32-7.43) VBG pCO2 (40-60) VBG HCO3 (21-28) mmol/l VBG Total CO2 (22-28) mmol.L VBG O2 Sat (Calc) (40-65) % VBG Base Excess (0.0-2.0) mmol/L VBG Potassium (3.6-5.2) mmol/L Hgb O2 Saturation (95.0-98.0) % Sodium 140.0 (132-148) mmol/L Chloride 108.0 H (98-107) mmol/L Glucose 308 H (65-105) mg/dl Lactate 3.7 H (0.7-2.1) mmol/L FiO2 100.0 % Potassium (3.6-5.0) mmol/L Carbon Dioxide (21-33) mmol/L Anion Gap (10-20) BUN (7-21) mg/dL Creatinine (0.5-1.4) mg/dL Est GFR ( Amer) Est GFR (Non-Af Amer) POC Glucose (mg/dL) 329 H 300 H (65-110) mg/dL Random Glucose (70-110) mg/dL Calcium (8.4-10.5) mg/dL Phosphorus (2.5-4.5) mg/dL Magnesium (1.7-2.2) mg/dL Total Bilirubin (0.2-1.3) mg/dL AST (15-39) U/L ALT (7-56) U/L Alkaline Phosphatase (38-133) U/L Total Protein (5.8-8.3) g/dL Albumin (3.0-4.8) g/dL Globulin gm/dL Albumin/Globulin Ratio (1.1-1.8) Arterial Blood Potassium 3.9 (3.6-5.2) mmol/L Venous Blood Potassium (3.6-5.2) mmol/L 10/24/16 Range/Units 16:13 WBC (4.5-11.0) 10^3/ul RBC (3.5-6.1) 10^6/uL Hgb (12.0-16.0) gm/dL Hct (36.0-48.0) % MCV (80.0-105.0) fL MCH (25.0-35.0) pg MCHC (31.0-37.0) g/dl RDW (11.5-14.5) % Plt Count (120.0-450.0) 10^3/uL MPV (7.0-11.0) fl Gran % (50.0-68.0) % Lymph % (Auto) (22.0-35.0) % [place] % (Auto) (1.0-6.0) % Eos % (Auto) (1.5-5.0) % Baso % (Auto) (0.0-3.0) % Gran # (1.4-6.5) Lymph # (1.2-3.4) [place] # (0.1-0.6) Eos # (0.0-0.7) Baso # (0.0-2.0) K/mm3 Neutrophils % (Manual) (50.0-70.0) % Lymphocytes % (Manual) (22.0-35.0) % Monocytes % (Manual) (1.0-6.0) % Platelet Evaluation (NORMAL) Polychromasia Hypochromasia Poikilocytosis (manual PT (9.9-11.8) Seconds INR (0.93-1.08) pCO2 (35-45) mm/Hg pO2 (80-100) mm/Hg HCO3 (21-28) mmol/L ABG pH (7.35-7.45) ABG Total CO2 (22-28) mmol.L ABG O2 Saturation (95-98) % ABG O2 Content (15-23) ML/dl ABG Base Excess (-2.0-3.0) mmol/L ABG Hemoglobin (11.7-17.4) g/dL ABG Carboxyhemoglobin (0.5-1.5) % POC ABG HHb (Measured) (0-5) % ABG Methemoglobin (0.0-3.0) % ABG O2 Capacity (16-24) mL/dl ABG Potassium (3.6-5.2) mmol/L VBG pH (7.32-7.43) VBG pCO2 (40-60) VBG HCO3 (21-28) mmol/l VBG Total CO2 (22-28) mmol.L VBG O2 Sat (Calc) (40-65) % VBG Base Excess (0.0-2.0) mmol/L VBG Potassium (3.6-5.2) mmol/L Hgb O2 Saturation (95.0-98.0) % Sodium (132-148) mmol/L Chloride (98-107) mmol/L Glucose (65-105) mg/dl Lactate (0.7-2.1) mmol/L FiO2 % Potassium (3.6-5.0) mmol/L Carbon Dioxide (21-33) mmol/L Anion Gap (10-20) BUN (7-21) mg/dL Creatinine (0.5-1.4) mg/dL Est GFR ( Amer) Est GFR (Non-Af Amer) POC Glucose (mg/dL) 284 H (65-110) mg/dL Random Glucose (70-110) mg/dL Calcium (8.4-10.5) mg/dL Phosphorus (2.5-4.5) mg/dL Magnesium (1.7-2.2) mg/dL Total Bilirubin (0.2-1.3) mg/dL AST (15-39) U/L ALT (7-56) U/L Alkaline Phosphatase (38-133) U/L Total Protein (5.8-8.3) g/dL Albumin (3.0-4.8) g/dL Globulin gm/dL Albumin/Globulin Ratio (1.1-1.8) Arterial Blood Potassium (3.6-5.2) mmol/L Venous Blood Potassium (3.6-5.2) mmol/L Laboratory Results - last 24 hr 10/24/16 10/24/16 10/24/16 16:13 17:04 17:45 WBC RBC Hgb Hct MCV MCH MCHC RDW Plt Count MPV Gran % Lymph % (Auto) [place] % (Auto) Eos % (Auto) Baso % (Auto) Gran # Lymph # [place] # Eos # Baso # Neutrophils % (Manual) Lymphocytes % (Manual) Monocytes % (Manual) Platelet Evaluation Polychromasia Hypochromasia Poikilocytosis (manual PT INR pCO2 58 H pO2 203.0 H HCO3 26.0 ABG pH 7.26 L ABG Total CO2 27.8 ABG O2 Saturation 99.6 H ABG O2 Content ABG Base Excess -2.1 L ABG Hemoglobin ABG Carboxyhemoglobin POC ABG HHb (Measured) ABG Methemoglobin ABG O2 Capacity ABG Potassium 3.9 VBG pH VBG pCO2 VBG HCO3 VBG Total CO2 VBG O2 Sat (Calc) VBG Base Excess VBG Potassium Hgb O2 Saturation Sodium 140.0 Chloride 108.0 H Glucose 308 H Lactate 3.7 H FiO2 100.0 Potassium Carbon Dioxide Anion Gap BUN Creatinine Est GFR ( Amer) Est GFR (Non-Af Amer) POC Glucose (mg/dL) 284 H 300 H Random Glucose Calcium Phosphorus Magnesium Total Bilirubin AST ALT Alkaline Phosphatase Total Protein Albumin Globulin Albumin/Globulin Ratio Arterial Blood Potassium 3.9 Venous Blood Potassium 10/24/16 10/24/16 10/24/16 18:19 22:00 22:00 WBC 12.2 H D RBC 3.43 L Hgb 9.5 L Hct 30.3 L MCV 88.3 MCH 27.7 MCHC 31.4 RDW 17.1 H Plt Count 229 MPV 9.9 Gran % Lymph % (Auto) [place] % (Auto) Eos % (Auto) Baso % (Auto) Gran # Lymph # [place] # Eos # Baso # Neutrophils % (Manual) 83 H Lymphocytes % (Manual) 7 L Monocytes % (Manual) 10 H Platelet Evaluation Normal Polychromasia Slight Hypochromasia Slight Poikilocytosis (manual Slight PT INR pCO2 pO2 HCO3 ABG pH ABG Total CO2 ABG O2 Saturation ABG O2 Content ABG Base Excess ABG Hemoglobin ABG Carboxyhemoglobin POC ABG HHb (Measured) ABG Methemoglobin ABG O2 Capacity ABG Potassium VBG pH VBG pCO2 VBG HCO3 VBG Total CO2 VBG O2 Sat (Calc) VBG Base Excess VBG Potassium Hgb O2 Saturation Sodium 140 Chloride 101 Glucose Lactate FiO2 Potassium 3.7 Carbon Dioxide 30 Anion Gap 13 BUN 33 H Creatinine 0.9 Est GFR ( Amer) > 60 Est GFR (Non-Af Amer) > 60 POC Glucose (mg/dL) 329 H Random Glucose 190 H Calcium 9.4 Phosphorus 2.4 L Magnesium 1.7 Total Bilirubin 0.7 AST 23 ALT 28 Alkaline Phosphatase 109 Total Protein 6.4 Albumin 3.5 Globulin 2.9 Albumin/Globulin Ratio 1.2 Arterial Blood Potassium Venous Blood Potassium 10/24/16 10/25/16 10/25/16 22:00 06:00 06:00 WBC 9.1 D RBC 3.32 L Hgb 9.3 L Hct 29.1 L MCV 87.7 MCH 28.0 MCHC 32.0 RDW 17.0 H Plt Count 226 MPV 9.7 Gran % 77.2 H Lymph % (Auto) 12.1 L [place] % (Auto) 9.8 H Eos % (Auto) 0.7 L Baso % (Auto) 0.2 Gran # 7.02 H Lymph # 1.1 L [place] # 0.9 H Eos # 0.1 Baso # 0.02 Neutrophils % (Manual) Lymphocytes % (Manual) Monocytes % (Manual) Platelet Evaluation Polychromasia Hypochromasia Poikilocytosis (manual PT 40.8 H* INR 3.78 H* pCO2 pO2 69 H HCO3 ABG pH ABG Total CO2 ABG O2 Saturation ABG O2 Content ABG Base Excess ABG Hemoglobin ABG Carboxyhemoglobin POC ABG HHb (Measured) ABG Methemoglobin ABG O2 Capacity ABG Potassium VBG pH 7.45 H VBG pCO2 48.0 VBG HCO3 33.4 H VBG Total CO2 34.9 H VBG O2 Sat (Calc) 97.0 H VBG Base Excess 8.4 H VBG Potassium 3.8 Hgb O2 Saturation Sodium 141.0 Chloride 108.0 H Glucose 202 H Lactate 1.9 FiO2 21.0 Potassium Carbon Dioxide Anion Gap BUN Creatinine Est GFR ( Amer) Est GFR (Non-Af Amer) POC Glucose (mg/dL) Random Glucose Calcium Phosphorus Magnesium Total Bilirubin AST ALT Alkaline Phosphatase Total Protein Albumin Globulin Albumin/Globulin Ratio Arterial Blood Potassium Venous Blood Potassium 3.8 10/25/16 10/25/16 10/25/16 06:00 07:38 07:50 WBC RBC Hgb Hct MCV MCH MCHC RDW Plt Count MPV Gran % Lymph % (Auto) [place] % (Auto) Eos % (Auto) Baso % (Auto) Gran # Lymph # [place] # Eos # Baso # Neutrophils % (Manual) Lymphocytes % (Manual) Monocytes % (Manual) Platelet Evaluation Polychromasia Hypochromasia Poikilocytosis (manual PT INR pCO2 42 pO2 145.0 H HCO3 32.0 H ABG pH 7.49 H ABG Total CO2 33.3 H ABG O2 Saturation 99.0 H ABG O2 Content 13.9 L ABG Base Excess 7.9 H ABG Hemoglobin 10.1 L ABG Carboxyhemoglobin 2.0 H POC ABG HHb (Measured) 1.0 ABG Methemoglobin 1.0 ABG O2 Capacity 14.0 L ABG Potassium VBG pH VBG pCO2 VBG HCO3 VBG Total CO2 VBG O2 Sat (Calc) VBG Base Excess VBG Potassium Hgb O2 Saturation 96.0 Sodium 142 Chloride 99 Glucose Lactate FiO2 50.0 Potassium 3.3 L Carbon Dioxide 34 H Anion Gap 12 BUN 30 H Creatinine 0.9 Est GFR ( Amer) > 60 Est GFR (Non-Af Amer) > 60 POC Glucose (mg/dL) 137 H Random Glucose 134 H Calcium 9.4 Phosphorus 2.4 L Magnesium 1.6 L Total Bilirubin 0.7 AST 24 ALT 27 Alkaline Phosphatase 105 Total Protein 6.2 Albumin 3.4 Globulin 2.8 Albumin/Globulin Ratio 1.2 Arterial Blood Potassium Venous Blood Potassium 10/25/16 11:22 WBC RBC Hgb Hct MCV MCH MCHC RDW Plt Count MPV Gran % Lymph % (Auto) [place] % (Auto) Eos % (Auto) Baso % (Auto) Gran # Lymph # [place] # Eos # Baso # Neutrophils % (Manual) Lymphocytes % (Manual) Monocytes % (Manual) Platelet Evaluation Polychromasia Hypochromasia Poikilocytosis (manual PT INR pCO2 pO2 HCO3 ABG pH ABG Total CO2 ABG O2 Saturation ABG O2 Content ABG Base Excess ABG Hemoglobin ABG Carboxyhemoglobin POC ABG HHb (Measured) ABG Methemoglobin ABG O2 Capacity ABG Potassium VBG pH VBG pCO2 VBG HCO3 VBG Total CO2 VBG O2 Sat (Calc) VBG Base Excess VBG Potassium Hgb O2 Saturation Sodium Chloride Glucose Lactate FiO2 Potassium Carbon Dioxide Anion Gap BUN Creatinine Est GFR ( Amer) Est GFR (Non-Af Amer) POC Glucose (mg/dL) 172 H Random Glucose Calcium Phosphorus Magnesium Total Bilirubin AST ALT Alkaline Phosphatase Total Protein Albumin Globulin Albumin/Globulin Ratio Arterial Blood Potassium Venous Blood Potassium EKG/Cardiology Studies: Cardiology / EKG Studies 10/24/16 17:18 ELECTROCARDIOGRAM Stat Comment: Reason For Exam: code blue Fingerstick Blood Sugar Results: 137 Review of Systems - Review of Systems Systems not reviewed;Unavailable: Altered Mental Status Critical Care Progress Note - Ventilator Checklist Head of Bed 30 Degrees: Yes Daily Sedation Vacation: Yes Daily Assessment of Readiness to Wean: Yes PUD Prophalyxis: Yes DVT Prophylaxis: Yes Oral Care with Chlorhexidine Gluconate {CHG}: Yes - Nutrition Nutrition: Nutrition Category Date Time Status Heart Healthy Diet [DIET] Diets 10/21/16 Breakfast Ordered Assessment/Plan - Assessment and Plan (Free Text) Assessment: 71 y/o F w/ Acute respiratory failure . Intubated 6ml/ kg to keep pao2> 60 Ph> 7.3 mental status poor after bradycardic, hypoxic episode . Will need Ct head to check for any signs of CVA or Anoxia. SBT trial daily. PRn sedation if needed. CXR showed pulmonary edema, continued on Lasix and cardiac medications w/ Cardiology following as well. MDR UTi and Aspiration Pneumonitis treatment on ABX per ID. DVT P PPI CC time 65 min
--- NOTE | 2016-10-25 12:57 | RAD ---
HISTORY: Intubated COMPARISON: 10/24/2016 FINDINGS: LUNGS: Endotracheal tube in satisfactory position. Slight improvement in bilateral infiltrates and vascular congestion PLEURA: No significant pleural effusion identified, no pneumothorax apparent. CARDIOVASCULAR: Normal. OSSEOUS STRUCTURES: No significant abnormalities. VISUALIZED UPPER ABDOMEN: Normal. OTHER FINDINGS: None. IMPRESSION: Endotracheal tube in satisfactory position. Slight improvement in bilateral infiltrates and vascular congestion
[2016-10-25] MEDS: Levalbuterol 1.25 MG/3 ML Inhal Soln UD IH PRN ×2 (12:59→20:56)
--- NOTE | 2016-10-25 14:00 | PN ---
SUBJECTIVE: The patient is a 71-year-old, yesterday's events noted, patient was found to be unresponsive. She was bradycardiac . However, she was resuscitated and intubated on the floor and transferred to ICU again. On examination today, she is sedated, minimally arousable on vent. PHYSICAL EXAMINATION: VITAL SIGNS: She is afebrile, pulse 81, respiration 18, and blood pressure 156/75. LUNGS: Bilateral fair air flow, no rhonchi or crackle. HEART: S1 and S2, audible. ABDOMEN: Soft and nontender. No rebound. No guarding. NEUROLOGICAL: She is sedated on vent. LABORATORY DATA: WBC is 9.1, hemoglobin 9.3, hematocrit 29, and platelet of 226. PT 40.8, INR 3.78. Chemistry sodium 142, potassium 3.3, chloride 99, CO2 of 34, BUN 30, creatinine 0.9, and blood sugar 172. ASSESSMENT AND PLAN: 1. Respiratory failure. 2. Chronic obstructive pulmonary disease, exacerbation. 3. Bronchospasm. 4. Acute renal failure. 5. Morbid obesity. 6. Coronary artery disease. 7. Pulmonary hypertension. 8. History of cancer breast. PLAN: The patient is intermittently being diuresed. She is on IV antibiotics. She is on nebulizer treatment. Discussed with patient's daughter. She is thinking about making her DNR. Edwige Kirby MD
[2016-10-25] MEDS: Propofol 10 mg/ml 1,000 MG/100 ML VIAL IV PRN (20:44)
[2016-10-26] MEDS: Levalbuterol 1.25 MG/3 ML Inhal Soln UD IH PRN ×3 (02:42→13:14)
[2016-10-26 05:47] LABS: BASO # 0.02 K/mm3 (0.0-2.0); BASO % 0.2 % (0.0-3.0); EOS # 0.2 (0.0-0.7); EOS % 1.4 % (1.5-5.0); GRAN # 9.13 (1.4-6.5); GRAN % 80.8 % (50.0-68.0); HEMOGLOBIN 9.5 gm/dL (12.0-16.0); LYMPH % 9.1 % (22.0-35.0); MEAN CELL VOLUME 88.3 fL (80.0-105.0); MEAN CORPUSCULAR HEMOGLOBIN 27.2 pg (25.0-35.0); MEAN CORPUSCULAR HGB CONC 30.8 g/dl (31.0-37.0); MONO % 8.5 % (1.0-6.0); PLATELET COUNT 227 10^3/uL (120.0-450.0); RBC 3.49 10^6/uL (3.5-6.1); RED CELL DISTRIBUTION WIDTH 17.5 % (11.5-14.5); WHITE BLOOD COUNT 11.3 10^3/ul (4.5-11.0)
[2016-10-26] MEDS: Meropenem 1g/NS 100mL IVPB 1 GM/100 ML PIGGYBACK IVPB SCH ×3 (05:54→21:29)
[2016-10-26 05:55] LABS: ALB/GLOB RATIO 1.2 (1.1-1.8); ALBUMIN 3.5 g/dL (3.0-4.8); ALT/SGPT 28 U/L (7-56); AST/SGOT 23 U/L (15-39); BLOOD UREA NITROGEN 24 mg/dL (7-21); CALCIUM 9.4 mg/dL (8.4-10.5); GFR AFRICAN-AMERICAN > 60; GFR NON-AFRICAN AMERICAN > 60; MAGNESIUM 1.5 mg/dL (1.7-2.2); PROTHROMBIN TIME 41.2 Seconds (9.9-11.8)
[2016-10-26 05:57] LABS: INR 3.81 (0.93-1.08)
[2016-10-26 06:46] LABS: ARTERIAL BLOOD GAS HCO3 35.9 mmol/L (21-28); ARTERIAL BLOOD GAS HEMOGLOBIN 10.1 g/dL (11.7-17.4); ARTERIAL BLOOD GAS O2 CAPACITY 13.9 mL/dl (16-24); ARTERIAL BLOOD GAS O2 CONTENT 13.8 ML/dl (15-23); ARTERIAL BLOOD GAS PCO2 44 mm/Hg (35-45); ARTERIAL BLOOD GAS PH 7.52 (7.35-7.45); ARTERIAL BLOOD GAS TCO2 37.3 mmol.L (22-28)
[2016-10-26] MEDS ORDERED: Magnesium Sulfate 2 GM in Sodium Chloride 0.9% 100 ML IVPB ONE (07:12)
[2016-10-26] MEDS: Insulin Lispro (humaLOG) MEDIUM Coverage SC SCH ×4 (07:59→21:29)
[2016-10-26] MEDS: Propofol 10 mg/ml 1,000 MG/100 ML VIAL IV PRN ×2 (08:05→21:37)
[2016-10-26] MEDS: Linezolid 600 mg in D5W 300 ml 600 MG/300 ML BAG IVPB SCH ×2 (09:29→22:11)
[2016-10-26] MEDS: Tiotropium 18 mcg Cap For Inhalation IH SCH (09:31)
[2016-10-26] MEDS: Nystatin-Triamcinolone Cream(30 gm) TOP SCH ×2 (10:00→17:50)
[2016-10-26] MEDS: Ammonium Lactate 12% Lotion (225 g) EXT SCH ×2 (10:00→17:51)
--- NOTE | 2016-10-26 11:05 | CP.PCM.PN ---
Subjective - Date & Time of Evaluation Date of Evaluation: 10/26/16 Time of Evaluation: 09:20 - Subjective Subjective: Continues to be on the ventilator and sedated. No fevers overnight. Objective - Vital Signs/Intake and Output Vital Signs (last 24 hours): Temp Pulse Resp BP Pulse Ox 98.1 F 89 18 171/78 H 90 L 10/26/16 03:11 10/26/16 03:00 10/25/16 07:14 10/26/16 03:00 10/26/16 03:00 Intake and Output: 10/25/16 10/26/16 18:59 06:59 Intake Total 620 10 Output Total 1880 Balance -1260 10 - Medications Medications: Current Medications Acetaminophen (Tylenol 325mg Tab) 650 mg PO Q6H PRN PRN Reason: Fever >100.4 F Last Admin: 10/24/16 14:33 Dose: 650 mg Aspirin (Ecotrin) 81 mg PO 0800 [facility] Last Admin: 10/25/16 08:54 Dose: Not Given Aspirin (Aspirin Supp) 300 mg RC DAILY [facility] Last Admin: 10/25/16 09:19 Dose: 300 mg Furosemide (Lasix) 40 mg IVP Q12 [facility] Last Admin: 10/25/16 21:34 Dose: 40 mg Guaifenesin (Robitussin) 200 mg PO Q4H PRN PRN Reason: Cough and congestion Last Admin: 10/21/16 23:42 Dose: 200 mg Hydralazine HCl (Apresoline) 50 mg PO BID [facility] Last Admin: 10/21/16 18:32 Dose: Not Given Hydralazine HCl (Apresoline) 10 mg IVP Q6 PRN PRN Reason: give for SBP above 150 Last Admin: 10/25/16 22:22 Dose: 10 mg Meropenem 1g/NS 100mL IVPB (Meropenem 1g/Ns 100ml Ivpb) 1 gm in 100 mls @ 100 mls/hr IVPB Q8 [facility] PRN Reason: Protocol Last Admin: 10/25/16 21:35 Dose: 100 mls/hr Linezolid (Zyvox 600mg/300ml D5w) 600 mg in 300 mls @ 200 mls/hr IVPB Q12 [facility] PRN Reason: Protocol Last Admin: 10/25/16 22:10 Dose: 200 mls/hr Propofol (Diprivan) 1,000 mg in 100 mls @ 3.333 mls/hr IV .Q24H PRN; Protocol; 5 MCG/KG/MIN PRN Reason: TITRATE PER MD ORDER Last Titration: 10/25/16 22:00 Dose: 10 mcg/kg/min, 6.665 mls/hr Insulin Human Lispro (Humalog Med) 0 units SC ACHS [facility] PRN Reason: Protocol Last Admin: 10/25/16 22:15 Dose: Not Given Isosorbide Mononitrate (Imdur) 60 mg PO DAILY [facility] Last Admin: 10/21/16 09:54 Dose: Not Given Lactic Acid (Lac-Hydrin 12% Lotion (225 G)) 0 gm EXT BID [facility] Last Admin: 10/25/16 18:02 Dose: 1 applic Levalbuterol HCl (Xopenex) 1.25 mg IH [id number] PRN PRN Reason: Shortness of Breath Last Admin: 10/26/16 02:42 Dose: 1.25 mg Metoprolol Tartrate (Lopressor) 25 mg PO BID [facility] Last Admin: 10/25/16 17:52 Dose: Not Given Mupirocin (Bactroban Ointment) 0 gm TOP BID [facility] Last Admin: 10/25/16 18:03 Dose: 1 applic Nicotine (Nicoderm Cq) 1 patch TD DAILY [facility] Last Admin: 10/25/16 09:17 Dose: 1 patch Nystatin/Triamcinolone Acetonide (Nystatin/Triamcinolone Cream) 0 ea TOP BID [facility] Last Admin: 10/25/16 18:04 Dose: 1 applic Pantoprazole Sodium (Protonix Inj) 40 mg IVP DAILY [facility] Last Admin: 10/25/16 09:18 Dose: 40 mg Risperidone (Risperdal Tab) 0.25 mg PO BID [facility] PRN Reason: Protocol Last Admin: 10/25/16 17:52 Dose: Not Given Tiotropium [place] (Spiriva) 18 mcg IH DAILY [facility] Last Admin: 10/25/16 09:13 Dose: Not Given Valsartan (Diovan) 320 mg PO DAILY [facility] Last Admin: 10/21/16 09:54 Dose: Not Given Warfarin Sodium (Coumadin) 4 mg PO 1800 [facility] PRN Reason: Protocol Last Admin: 08/03/17 17:44 Dose: 4 mg - Labs Labs: 10/26/16 05:15 10/26/16 05:15 PT 41.2 Seconds (9.9-11.8) H* 10/26/16 05:15 INR 3.81 (0.93-1.08) H* 10/26/16 05:15 APTT 39.9 Seconds (23.7-30.8) H 10/23/16 05:40 - Constitutional Appears: Other (Intubated and sedated) - Head Exam Head Exam: NORMAL INSPECTION - ENT Exam Additional comments: ET tube in place - Neck Exam Neck Exam: absent: Meningismus - Respiratory Exam Respiratory Exam: Decreased Breath Sounds - Cardiovascular Exam Cardiovascular Exam: +S1, +S2 - GI/Abdominal Exam GI & Abdominal Exam: Soft. 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 coli UTI history of healthcare-associated pneumonia acute renal failure obesity with BMI 38 CAD GERD arthritis history of bilateral knee replacements chronic CHF COPD DM history of breast CA History of Strep bovis bacteremia (2012) S/P Port-a-cath placement Plan continue Zyvox and Merrem day 6; toe cx growing E. faecalis and Pseudomonas, urine growing Klebsiella; will target 7-10 days of therapy follow up Dr. Maldonado Barnett's evaluation of the patient's peripheral vascular disease will continue to follow clinically
--- NOTE | 2016-10-26 12:52 | CP.CCUPN ---
CCU Subjective - Physician Review Events Since Last Encounter (Free Text): 10/26/16 12:48 71 y/o F w/ Acute respiratory failure On ac/ vc tried on PS trial SBT . Failed in in 45 min due to increased rr rate Continued on Solumedrol, Nebs and Diuresis to help resp status. End stage COPD with multiple intubations in the past. Mental status iimproved since re-intubation and following commands but agitated at times, therefore started on Propofol overnight. CCU Objective - Vital Signs / Intake & Output Vital Signs (Last 4 hours): Vital Signs Pulse BP Pulse Ox 10/26/16 10:09 106 H 154/74 H 99 10/26/16 10:00 101 H 98 10/26/16 09:29 150/97 H 10/26/16 09:00 114 H 150/97 H 90 L 10/26/16 08:57 113 H 167/92 H 63 L Intake and Output (Last 8hrs): Intake & Output 10/25/16 10/26/16 10/26/16 22:59 06:59 14:59 Intake Total 630 551 70 Output Total 1880 2800 Balance -1250 -2249 70 Weight 241 lb Intake: IV 630 51 70 Left Wrist 31 Right Forearm 620 Oral 0 Other 500 Output: Urine 1880 2800 2-way Urethral 1880 2800 Other: Voiding Method Indwelling Catheter Indwelling Catheter - Physical Exam Head: Positive for: Atraumatic, Normocephalic Pupils: Positive for: PERRL Extroacular Muscles: Positive for: EOMI Conjunctiva: Positive for: Normal Mouth: Positive for: Moist Mucous Membranes Neck: Positive for: Normal Range of Motion Respiratory/Chest: Positive for: Clear to Auscultation, Good Air Exchange. Negative for: Respiratory Distress, Accessory Muscle Use Cardiovascular: Positive for: Regular Rate and Rhythm, Normal S1, S2. Negative for: Murmurs Abdomen: Positive for: Normal Bowel Sounds. Negative for: Tenderness, Distention, Peritoneal Signs Back: Positive for: Normal Inspection Upper Extremity: Positive for: Normal Inspection. Negative for: Cyanosis, Edema Lower Extremity: Positive for: Normal Inspection, Erythema (left leg ), Other ( left foot ulcer healing and no warmth). Negative for: Edema Neurological: Positive for: GCS=15, CN II-XII Intact, Speech Normal Skin: Positive for: Warm, Dry, Normal Color. Negative for: Rashes Psychiatric: Positive for: Alert, Oriented x 3, Normal Insight, Normal Concentration - Medications Active Medications: Active Medications Generic Name Dose Route Start Last Admin Trade Name Freq PRN Reason Stop Dose Admin Acetaminophen 650 mg 10/20/16 22:15 10/24/16 14:33 Tylenol 325mg Tab PO 650 mg Q6H PRN Administration Fever >100.4 F Aspirin 81 mg 10/21/16 08:00 10/26/16 08:07 Ecotrin PO Not Given 0800 [facility] Aspirin 300 mg 10/25/16 10:00 10/26/16 09:30 Aspirin Supp RC 300 mg DAILY [facility] Administration Furosemide 40 mg 10/23/16 10:00 10/26/16 09:29 Lasix IVP 40 mg Q12 [facility] Administration Guaifenesin 200 mg 10/21/16 23:29 10/21/16 23:42 Robitussin PO 200 mg Q4H PRN Administration Cough and congestion Hydralazine HCl 50 mg 10/21/16 10:00 10/21/16 18:32 Apresoline PO Not Given BID [facility] Hydralazine HCl 10 mg 10/25/16 00:08 10/25/16 22:22 Apresoline IVP 10 mg Q6 PRN Administration give for SBP above 150 Meropenem 1g/NS 100mL IVPB 1 gm in 100 mls @ 100 mls/hr 10/22/16 16:15 05:54 Meropenem 1g/Ns 100ml Ivpb IVPB 100 mls/hr Q8 [facility] Administration Protocol Linezolid 600 mg in 300 mls @ 200 mls/hr 10/22/16 22:00 10/26/16 09:29 Zyvox 600mg/300ml D5w IVPB 200 mls/hr Q12 [facility] Administration Protocol Propofol 1,000 mg in 100 mls @ 3.333 mls/hr 10/25/16 20:05 10/26/16 08:46 Diprivan IV 10 mcg/kg/min .Q24H PRN 6.665 mls/hr TITRATE PER MD ORDER Titration Protocol 5 MCG/KG/MIN Insulin Human Lispro 0 units 10/21/16 07:30 10/26/16 11:50 Humalog Med SC Not Given ACHS [facility] Protocol Isosorbide Mononitrate 60 mg 10/21/16 10:00 10/21/16 09:54 Imdur PO Not Given DAILY [facility] Lactic Acid 0 gm 10/21/16 10:00 10/26/16 10:00 Lac-Hydrin 12% Lotion (225 G) EXT 1 applic BID [facility] Administration Levalbuterol HCl 1.25 mg 10/20/16 22:15 10/26/16 07:07 Xopenex IH 1.25 mg [id number] PRN Administration Shortness of Breath Metoprolol Tartrate 25 mg 10/23/16 10:00 10/26/16 09:26 Lopressor PO Not Given BID [facility] Mupirocin 0 gm 10/21/16 18:00 10/26/16 10:00 Bactroban Ointment TOP 1 applic BID [facility] Administration Nicotine 1 patch 10/21/16 10:00 10/26/16 09:30 Nicoderm Cq TD 1 patch DAILY [facility] Administration Nystatin/Triamcinolone Acetonide 0 ea 10/21/16 10:00 10/26/16 10:00 Nystatin/Triamcinolone Cream TOP 1 applic BID [facility] Administration Pantoprazole Sodium 40 mg 10/25/16 10:00 10/26/16 09:29 Protonix Inj IVP 40 mg DAILY [facility] Administration Risperidone 0.25 mg 10/24/16 10:00 10/26/16 09:29 Risperdal Tab PO Not Given BID [facility] Protocol Tiotropium [place] 18 mcg 10/21/16 10:00 10/26/16 09:31 Spiriva IH Not Given DAILY [facility] Valsartan 320 mg 10/21/16 10:00 10/21/16 09:54 Diovan PO Not Given DAILY [facility] Warfarin Sodium 4 mg 10/21/16 18:00 10/23/16 17:44 Coumadin PO 4 mg 1800 [facility] Administration Protocol - Patient Studies Lab Studies: Microbiology Studies 10/24/16 22:00 Blood Culture - Preliminary Blood NO GROWTH AFTER 24 HOURS Lab Studies 10/26/16 10/26/16 10/26/16 Range/Units 11:47 07:58 06:30 WBC (4.5-11.0) 10^3/ul RBC (3.5-6.1) 10^6/uL Hgb (12.0-16.0) gm/dL Hct (36.0-48.0) % MCV (80.0-105.0) fL MCH (25.0-35.0) pg MCHC (31.0-37.0) g/dl RDW (11.5-14.5) % Plt Count (120.0-450.0) 10^3/uL MPV (7.0-11.0) fl Gran % (50.0-68.0) % Lymph % (Auto) (22.0-35.0) % [place] % (Auto) (1.0-6.0) % Eos % (Auto) (1.5-5.0) % Baso % (Auto) (0.0-3.0) % Gran # (1.4-6.5) Lymph # (1.2-3.4) [place] # (0.1-0.6) Eos # (0.0-0.7) Baso # (0.0-2.0) K/mm3 PT (9.9-11.8) Seconds INR (0.93-1.08) pCO2 44 (35-45) mm/Hg pO2 92.0 (80-100) mm/Hg HCO3 35.9 H (21-28) mmol/L ABG pH 7.52 H (7.35-7.45) ABG Total CO2 37.3 H (22-28) mmol.L ABG O2 Saturation 99.0 H (95-98) % ABG O2 Content 13.8 L (15-23) ML/dl ABG Base Excess 11.8 H (-2.0-3.0) mmol/L ABG Hemoglobin 10.1 L (11.7-17.4) g/dL ABG Carboxyhemoglobin 2.4 H (0.5-1.5) % POC ABG HHb (Measured) 1.0 (0-5) % ABG Methemoglobin 0.5 (0.0-3.0) % ABG O2 Capacity 13.9 L (16-24) mL/dl Hgb O2 Saturation 96.1 (95.0-98.0) % FiO2 35.0 % Sodium (132-148) mmol/L Potassium (3.6-5.0) mmol/L Chloride (98-107) mmol/L Carbon Dioxide (21-33) mmol/L Anion Gap (10-20) BUN (7-21) mg/dL Creatinine (0.5-1.4) mg/dL Est GFR ( Amer) Est GFR (Non-Af Amer) POC Glucose (mg/dL) 182 H 165 H (65-110) mg/dL Random Glucose (70-110) mg/dL Calcium (8.4-10.5) mg/dL Phosphorus (2.5-4.5) mg/dL Magnesium (1.7-2.2) mg/dL Total Bilirubin (0.2-1.3) mg/dL AST (15-39) U/L ALT (7-56) U/L Alkaline Phosphatase (38-133) U/L Total Protein (5.8-8.3) g/dL Albumin (3.0-4.8) g/dL Globulin gm/dL Albumin/Globulin Ratio (1.1-1.8) 10/26/16 10/26/16 10/26/16 Range/Units 05:15 05:15 05:15 WBC 11.3 H D (4.5-11.0) 10^3/ul RBC 3.49 L (3.5-6.1) 10^6/uL Hgb 9.5 L (12.0-16.0) gm/dL Hct 30.8 L (36.0-48.0) % MCV 88.3 (80.0-105.0) fL MCH 27.2 (25.0-35.0) pg MCHC 30.8 L (31.0-37.0) g/dl RDW 17.5 H (11.5-14.5) % Plt Count 227 (120.0-450.0) 10^3/uL MPV 9.0 (7.0-11.0) fl Gran % 80.8 H (50.0-68.0) % Lymph % (Auto) 9.1 L (22.0-35.0) % [place] % (Auto) 8.5 H (1.0-6.0) % Eos % (Auto) 1.4 L (1.5-5.0) % Baso % (Auto) 0.2 (0.0-3.0) % Gran # 9.13 H (1.4-6.5) Lymph # 1.0 L (1.2-3.4) [place] # 1.0 H (0.1-0.6) Eos # 0.2 (0.0-0.7) Baso # 0.02 (0.0-2.0) K/mm3 PT 41.2 H* (9.9-11.8) Seconds INR 3.81 H* (0.93-1.08) pCO2 (35-45) mm/Hg pO2 (80-100) mm/Hg HCO3 (21-28) mmol/L ABG pH (7.35-7.45) ABG Total CO2 (22-28) mmol.L ABG O2 Saturation (95-98) % ABG O2 Content (15-23) ML/dl ABG Base Excess (-2.0-3.0) mmol/L ABG Hemoglobin (11.7-17.4) g/dL ABG Carboxyhemoglobin (0.5-1.5) % POC ABG HHb (Measured) (0-5) % ABG Methemoglobin (0.0-3.0) % ABG O2 Capacity (16-24) mL/dl Hgb O2 Saturation (95.0-98.0) % FiO2 % Sodium 140 (132-148) mmol/L Potassium 3.3 L (3.6-5.0) mmol/L Chloride 93 L (98-107) mmol/L Carbon Dioxide 37 H (21-33) mmol/L Anion Gap 13 (10-20) BUN 24 H (7-21) mg/dL Creatinine 0.8 (0.5-1.4) mg/dL Est GFR ( Amer) > 60 Est GFR (Non-Af Amer) > 60 POC Glucose (mg/dL) (65-110) mg/dL Random Glucose 149 H (70-110) mg/dL Calcium 9.4 (8.4-10.5) mg/dL Phosphorus 2.7 (2.5-4.5) mg/dL Magnesium 1.5 L (1.7-2.2) mg/dL Total Bilirubin 1.0 (0.2-1.3) mg/dL AST 23 (15-39) U/L ALT 28 (7-56) U/L Alkaline Phosphatase 113 (38-133) U/L Total Protein 6.5 (5.8-8.3) g/dL Albumin 3.5 (3.0-4.8) g/dL Globulin 3.0 gm/dL Albumin/Globulin Ratio 1.2 (1.1-1.8) 10/25/16 10/25/16 Range/Units 22:11 15:48 WBC (4.5-11.0) 10^3/ul RBC (3.5-6.1) 10^6/uL Hgb (12.0-16.0) gm/dL Hct (36.0-48.0) % MCV (80.0-105.0) fL MCH (25.0-35.0) pg MCHC (31.0-37.0) g/dl RDW (11.5-14.5) % Plt Count (120.0-450.0) 10^3/uL MPV (7.0-11.0) fl Gran % (50.0-68.0) % Lymph % (Auto) (22.0-35.0) % [place] % (Auto) (1.0-6.0) % Eos % (Auto) (1.5-5.0) % Baso % (Auto) (0.0-3.0) % Gran # (1.4-6.5) Lymph # (1.2-3.4) [place] # (0.1-0.6) Eos # (0.0-0.7) Baso # (0.0-2.0) K/mm3 PT (9.9-11.8) Seconds INR (0.93-1.08) pCO2 (35-45) mm/Hg pO2 (80-100) mm/Hg HCO3 (21-28) mmol/L ABG pH (7.35-7.45) ABG Total CO2 (22-28) mmol.L ABG O2 Saturation (95-98) % ABG O2 Content (15-23) ML/dl ABG Base Excess (-2.0-3.0) mmol/L ABG Hemoglobin (11.7-17.4) g/dL ABG Carboxyhemoglobin (0.5-1.5) % POC ABG HHb (Measured) (0-5) % ABG Methemoglobin (0.0-3.0) % ABG O2 Capacity (16-24) mL/dl Hgb O2 Saturation (95.0-98.0) % FiO2 % Sodium (132-148) mmol/L Potassium (3.6-5.0) mmol/L Chloride (98-107) mmol/L Carbon Dioxide (21-33) mmol/L Anion Gap (10-20) BUN (7-21) mg/dL Creatinine (0.5-1.4) mg/dL Est GFR ( Amer) Est GFR (Non-Af Amer) POC Glucose (mg/dL) 188 H 158 H (65-110) mg/dL Random Glucose (70-110) mg/dL Calcium (8.4-10.5) mg/dL Phosphorus (2.5-4.5) mg/dL Magnesium (1.7-2.2) mg/dL Total Bilirubin (0.2-1.3) mg/dL AST (15-39) U/L ALT (7-56) U/L Alkaline Phosphatase (38-133) U/L Total Protein (5.8-8.3) g/dL Albumin (3.0-4.8) g/dL Globulin gm/dL Albumin/Globulin Ratio (1.1-1.8) Laboratory Results - last 24 hr 10/25/16 10/25/16 10/26/16 15:48 22:11 05:15 WBC 11.3 H D RBC 3.49 L Hgb 9.5 L Hct 30.8 L MCV 88.3 MCH 27.2 MCHC 30.8 L RDW 17.5 H Plt Count 227 MPV 9.0 Gran % 80.8 H Lymph % (Auto) 9.1 L [place] % (Auto) 8.5 H Eos % (Auto) 1.4 L Baso % (Auto) 0.2 Gran # 9.13 H Lymph # 1.0 L [place] # 1.0 H Eos # 0.2 Baso # 0.02 PT INR pCO2 pO2 HCO3 ABG pH ABG Total CO2 ABG O2 Saturation ABG O2 Content ABG Base Excess ABG Hemoglobin ABG Carboxyhemoglobin POC ABG HHb (Measured) ABG Methemoglobin ABG O2 Capacity Hgb O2 Saturation FiO2 Sodium Potassium Chloride Carbon Dioxide Anion Gap BUN Creatinine Est GFR ( Amer) Est GFR (Non-Af Amer) POC Glucose (mg/dL) 158 H 188 H Random Glucose Calcium Phosphorus Magnesium Total Bilirubin AST ALT Alkaline Phosphatase Total Protein Albumin Globulin Albumin/Globulin Ratio 10/26/16 10/26/16 10/26/16 05:15 05:15 06:30 WBC RBC Hgb Hct MCV MCH MCHC RDW Plt Count MPV Gran % Lymph % (Auto) [place] % (Auto) Eos % (Auto) Baso % (Auto) Gran # Lymph # [place] # Eos # Baso # PT 41.2 H* INR 3.81 H* pCO2 44 pO2 92.0 HCO3 35.9 H ABG pH 7.52 H ABG Total CO2 37.3 H ABG O2 Saturation 99.0 H ABG O2 Content 13.8 L ABG Base Excess 11.8 H ABG Hemoglobin 10.1 L ABG Carboxyhemoglobin 2.4 H POC ABG HHb (Measured) 1.0 ABG Methemoglobin 0.5 ABG O2 Capacity 13.9 L Hgb O2 Saturation 96.1 FiO2 35.0 Sodium 140 Potassium 3.3 L Chloride 93 L Carbon Dioxide 37 H Anion Gap 13 BUN 24 H Creatinine 0.8 Est GFR ( Amer) > 60 Est GFR (Non-Af Amer) > 60 POC Glucose (mg/dL) Random Glucose 149 H Calcium 9.4 Phosphorus 2.7 Magnesium 1.5 L Total Bilirubin 1.0 AST 23 ALT 28 Alkaline Phosphatase 113 Total Protein 6.5 Albumin 3.5 Globulin 3.0 Albumin/Globulin Ratio 1.2 10/26/16 10/26/16 07:58 11:47 WBC RBC Hgb Hct MCV MCH MCHC RDW Plt Count MPV Gran % Lymph % (Auto) [place] % (Auto) Eos % (Auto) Baso % (Auto) Gran # Lymph # [place] # Eos # Baso # PT INR pCO2 pO2 HCO3 ABG pH ABG Total CO2 ABG O2 Saturation ABG O2 Content ABG Base Excess ABG Hemoglobin ABG Carboxyhemoglobin POC ABG HHb (Measured) ABG Methemoglobin ABG O2 Capacity Hgb O2 Saturation FiO2 Sodium Potassium Chloride Carbon Dioxide Anion Gap BUN Creatinine Est GFR ( Amer) Est GFR (Non-Af Amer) POC Glucose (mg/dL) 165 H 182 H Random Glucose Calcium Phosphorus Magnesium Total Bilirubin AST ALT Alkaline Phosphatase Total Protein Albumin Globulin Albumin/Globulin Ratio Fingerstick Blood Sugar Results: 182 Critical Care Progress Note - Ventilator Checklist Daily Spontaneous Breathing Trial: Yes PUD Prophalyxis: Yes DVT Prophylaxis: Yes Oral Care with Chlorhexidine Gluconate {CHG}: Yes - Nutrition Nutrition: Nutrition Category Date Time Status Heart Healthy Diet [DIET] Diets 10/21/16 Breakfast Ordered Assessment/Plan - Assessment and Plan (Free Text) Assessment: 71 y/o F w/ Acute respiratory failure PRVC SBT trail daily Continue Nebs, Solumedrol and Diuresis CXR show increased PVC, On lasix BID and urine output improving. On ABX treatment for MDR UTI per ID Htn controlled . DVT P Tube feeds to begin. Will need family meeting in the event she cannot extubate for possible trach due to multiple intubation history. cc time 55 min
--- NOTE | 2016-10-26 13:11 | RAD ---
HISTORY: intubated COMPARISON: 10/25/2016 FINDINGS: LUNGS: The endotracheal tube is in satisfactory position. There is improvement in the right upper lobe infiltrate PLEURA: No significant pleural effusion identified, no pneumothorax apparent. CARDIOVASCULAR: Moderate cardiomegaly moderate vascular congestion OSSEOUS STRUCTURES: No significant abnormalities. VISUALIZED UPPER ABDOMEN: Normal. OTHER FINDINGS: None. IMPRESSION: Endotracheal tube in satisfactory position. Improvement in right upper lobe infiltrate. Moderate vascular congestion
--- NOTE | 2016-10-26 13:12 | RAD ---
HISTORY: OG tube COMPARISON: Earlier same day FINDINGS: LUNGS: No active pulmonary disease. PLEURA: No significant pleural effusion identified, no pneumothorax apparent. CARDIOVASCULAR: Mild to moderate cardiomegaly OSSEOUS STRUCTURES: No significant abnormalities. VISUALIZED UPPER ABDOMEN: Normal. OTHER FINDINGS: None. IMPRESSION: Endotracheal tube and nasogastric tube in satisfactory position
[2016-10-27] MEDS: Levalbuterol 1.25 MG/3 ML Inhal Soln UD IH PRN (02:20)
[2016-10-27] MEDS: Meropenem 1g/NS 100mL IVPB 1 GM/100 ML PIGGYBACK IVPB SCH ×3 (05:28→21:50)
[2016-10-27] MEDS: Propofol 10 mg/ml 1,000 MG/100 ML VIAL IV PRN ×2 (05:29→10:31)
[2016-10-27 05:59] LABS: BASO # 0.01 K/mm3 (0.0-2.0); BASO % 0.1 % (0.0-3.0); EOS # 0.2 (0.0-0.7); EOS % 1.9 % (1.5-5.0); GRAN # 8.32 (1.4-6.5); GRAN % 80.5 % (50.0-68.0); HEMOGLOBIN 9.6 gm/dL (12.0-16.0); LYMPH # 0.9 (1.2-3.4); LYMPH % 8.2 % (22.0-35.0); MEAN CELL VOLUME 89.7 fL (80.0-105.0); MEAN CORPUSCULAR HEMOGLOBIN 27.6 pg (25.0-35.0); MEAN CORPUSCULAR HGB CONC 30.8 g/dl (31.0-37.0); MEAN PLATELET VOLUME 9.4 fl (7.0-11.0); MONO % 9.3 % (1.0-6.0); PLATELET COUNT 236 10^3/uL (120.0-450.0); RBC 3.48 10^6/uL (3.5-6.1); RED CELL DISTRIBUTION WIDTH 17.6 % (11.5-14.5); WHITE BLOOD COUNT 10.3 10^3/ul (4.5-11.0)
[2016-10-27 06:05] LABS: ARTERIAL BLOOD GAS HCO3 36.8 mmol/L (21-28); ARTERIAL BLOOD GAS HEMOGLOBIN 9.2 g/dL (11.7-17.4); ARTERIAL BLOOD GAS O2 CAPACITY 12.7 mL/dl (16-24); ARTERIAL BLOOD GAS O2 CONTENT 12.6 ML/dl (15-23); ARTERIAL BLOOD GAS O2 SAT 99.1 % (95-98); ARTERIAL BLOOD GAS PCO2 43 mm/Hg (35-45); ARTERIAL BLOOD GAS PH 7.54 (7.35-7.45); ARTERIAL BLOOD GAS TCO2 38.1 mmol.L (22-28)
[2016-10-27 06:11] LABS: ALB/GLOB RATIO 1.2 (1.1-1.8); ALBUMIN 3.4 g/dL (3.0-4.8); ALT/SGPT 25 U/L (7-56); AST/SGOT 23 U/L (15-39); BLOOD UREA NITROGEN 21 mg/dL (7-21); CALCIUM 9.2 mg/dL (8.4-10.5); GFR AFRICAN-AMERICAN > 60; GFR NON-AFRICAN AMERICAN > 60; MAGNESIUM 1.7 mg/dL (1.7-2.2)
[2016-10-27 06:13] LABS: INR 3.37 (0.93-1.08); PROTHROMBIN TIME 36.4 Seconds (9.9-11.8)
--- NOTE | 2016-10-27 07:38 | RAD ---
HISTORY: intubated COMPARISON: Chest radiograph 10/26/2016. FINDINGS: LUNGS: No definite interval infiltrate is identified. Some crowding of the left basilar bronchovascular markings identified. PLEURA: No significant pleural effusion identified, no pneumothorax apparent. CARDIOVASCULAR: . Stable cardiomegaly is appreciated. No definite pulmonary vascular derangement. OSSEOUS STRUCTURES: No significant abnormalities. VISUALIZED UPPER ABDOMEN: Normal. OTHER FINDINGS: An endotracheal tube is identified placed, stable in position with a J-tube likely advanced further into the left upper quadrant terminating in the region of the gastric viscus. IMPRESSION: Crowding of the left basilar bronchovascular markings is appreciated with no definite interval infiltrate or pleural effusion.
[2016-10-27] MEDS: Linezolid 600 mg in D5W 300 ml 600 MG/300 ML BAG IVPB SCH ×2 (10:32→21:51)
[2016-10-27] MEDS: Nystatin-Triamcinolone Cream(30 gm) TOP SCH ×2 (10:36→19:01)
[2016-10-27] MEDS: Ammonium Lactate 12% Lotion (225 g) EXT SCH ×3 (10:36→19:01)
[2016-10-27] MEDS: Tiotropium 18 mcg Cap For Inhalation IH SCH (10:41)
--- NOTE | 2016-10-27 10:57 | CP.PCM.PN ---
Subjective - Date & Time of Evaluation Date of Evaluation: 10/27/16 Time of Evaluation: 08:50 - Subjective Subjective: Continues to be on the ventilator, and sedated. No fevers overnight. Objective - Vital Signs/Intake and Output Vital Signs (last 24 hours): Temp Pulse Resp BP Pulse Ox 98.2 F 81 27 H 161/87 H 97 10/27/16 04:00 10/27/16 04:00 10/26/16 07:09 10/27/16 04:00 10/27/16 04:00 Intake and Output: 10/26/16 10/27/16 18:59 06:59 Intake Total 890 800 Output Total 1850 1725 Balance -960 -925 - Medications Medications: Current Medications Acetaminophen (Tylenol 325mg Tab) 650 mg PO Q6H PRN PRN Reason: Fever >100.4 F Last Admin: 10/24/16 14:33 Dose: 650 mg Aspirin (Ecotrin) 81 mg PO 0800 [facility] Last Admin: 10/26/16 08:07 Dose: Not Given Aspirin (Aspirin Supp) 300 mg RC DAILY [facility] Last Admin: 10/26/16 09:30 Dose: 300 mg Furosemide (Lasix) 40 mg IVP Q12 [facility] Last Admin: 10/26/16 22:20 Dose: 40 mg Guaifenesin (Robitussin) 200 mg PO Q4H PRN PRN Reason: Cough and congestion Last Admin: 10/21/16 23:42 Dose: 200 mg Hydralazine HCl (Apresoline) 50 mg PO BID [facility] Last Admin: 10/21/16 18:32 Dose: Not Given Hydralazine HCl (Apresoline) 10 mg IVP Q6 PRN PRN Reason: give for SBP above 150 Last Admin: 10/26/16 14:41 Dose: 10 mg Meropenem 1g/NS 100mL IVPB (Meropenem 1g/Ns 100ml Ivpb) 1 gm in 100 mls @ 100 mls/hr IVPB Q8 [facility] PRN Reason: Protocol Last Admin: 10/27/16 05:28 Dose: 100 mls/hr Linezolid (Zyvox 600mg/300ml D5w) 600 mg in 300 mls @ 200 mls/hr IVPB Q12 [facility] PRN Reason: Protocol Last Admin: 10/26/16 22:11 Dose: 200 mls/hr Propofol (Diprivan) 1,000 mg in 100 mls @ 3.333 mls/hr IV .Q24H PRN; Protocol; 5 MCG/KG/MIN PRN Reason: TITRATE PER MD ORDER Last Admin: 10/27/16 05:29 Dose: 10 mcg/kg/min, 6.665 mls/hr Insulin Human Lispro (Humalog Med) 0 units SC ACHS [facility] PRN Reason: Protocol Last Admin: 10/26/16 21:29 Dose: Not Given Isosorbide Mononitrate (Imdur) 60 mg PO DAILY [facility] Last Admin: 10/21/16 09:54 Dose: Not Given Lactic Acid (Lac-Hydrin 12% Lotion (225 G)) 0 gm EXT BID [facility] Last Admin: 10/26/16 17:51 Dose: 1 applic Levalbuterol HCl (Xopenex) 1.25 mg IH [id number] PRN PRN Reason: Shortness of Breath Last Admin: 10/27/16 02:20 Dose: 1.25 mg Metoprolol Tartrate (Lopressor) 25 mg PO BID [facility] Last Admin: 10/26/16 17:49 Dose: 25 mg Mupirocin (Bactroban Ointment) 0 gm TOP BID [facility] Last Admin: 10/26/16 17:51 Dose: 1 applic Nicotine (Nicoderm Cq) 1 patch TD DAILY [facility] Last Admin: 10/26/16 09:30 Dose: 1 patch Nystatin/Triamcinolone Acetonide (Nystatin/Triamcinolone Cream) 0 ea TOP BID [facility] Last Admin: 10/26/16 17:50 Dose: 1 applic Pantoprazole Sodium (Protonix Inj) 40 mg IVP DAILY [facility] Last Admin: 10/26/16 09:29 Dose: 40 mg Risperidone (Risperdal Tab) 0.25 mg PO BID [facility] PRN Reason: Protocol Last Admin: 10/26/16 17:49 Dose: 0.25 mg Tiotropium [place] (Spiriva) 18 mcg IH DAILY [facility] Last Admin: 10/26/16 09:31 Dose: Not Given Valsartan (Diovan) 320 mg PO DAILY [facility] Last Admin: 10/21/16 09:54 Dose: Not Given Warfarin Sodium (Coumadin) 4 mg PO 1800 [facility] PRN Reason: Protocol Last Admin: 10/23/16 17:44 Dose: 4 mg - Labs Labs: 10/27/16 05:45 10/26/16 05:15 PT 41.2 Seconds (9.9-11.8) H* 10/26/16 05:15 INR 3.81 (0.93-1.08) H* 10/26/16 05:15 APTT 39.9 Seconds (23.7-30.8) H 10/23/16 05:40 - Constitutional Appears: Other (Intubated and sedated) - Head Exam Head Exam: NORMAL INSPECTION - Neck Exam Neck Exam: absent: Meningismus - Respiratory Exam Respiratory Exam: Decreased Breath Sounds - Cardiovascular Exam Cardiovascular Exam: +S1, +S2 - GI/Abdominal Exam GI & Abdominal Exam: Soft. absent: Tenderness - Extremities Exam Additional comments: left foot with dressings in place, less swelling of the left foot Assessment and Plan - Assessment and Plan (Free Text) Plan: Assessment sepsis from UTI, and cellulitis of the left foot, slowly improving Ventilator-dependent respiratory failure probably from pulmonary edema hypoventilation R/O aspiration pneumonia, healthcare-associated history of infected diabetic ulceration of the left hallux associated with trauma with probable peripheral vascular disease, growing MRSA - no evidence of osteomyelitis on MRI - S/P arthrectomy and angioplasty of left sided lower extremity vasculature S/P Sepsis with acute hypoxic respiratory failure secondary to left-sided healthcare-associated pneumonia with possible gram positive cocci and/or gram negative bacilli, clinically improved and S/P treatment as well as sepsis from persistent methicillin-resistant coagulase negative staph bacteremia , probably port infection S/P removal of the port history of Group G Strep bacteremia history of E. coli UTI history of healthcare-associated pneumonia acute renal failure obesity with BMI 38 CAD GERD arthritis history of bilateral knee replacements chronic CHF COPD DM history of breast CA History of Strep bovis bacteremia (2012) S/P Port-a-cath placement Plan continue Zyvox and Merrem day 7; toe cx growing E. faecalis and Pseudomonas, urine growing Klebsiella; will target 7-10 days of therapy follow up Dr. Maldonado Barnett's evaluation of the patient's peripheral vascular disease will continue to monitor clinically
--- NOTE | 2016-10-27 11:31 | CP.PCM.PN ---
<Khris Rowland - Last Filed: 10/27/16 11:27> Subjective - Date & Time of Evaluation Date of Evaluation: 10/27/16 Time of Evaluation: 11:20 - Subjective Subjective: 71 year old female patient seen at bedside with attending, Dr. Hoffman, for left hallux ulceration, leg erythema, and right digital ischemia. Pt is intubated and on ventilation at time of visit. Pt's responses are sluggish but patient is alert to people. Reported acute overnight respiratory distress. Objective - Vital Signs/Intake and Output Vital Signs (last 24 hours): Temp Pulse Resp BP Pulse Ox 98.2 F 90 27 H 110/57 L 90 L 10/27/16 04:00 10/27/16 10:31 10/26/16 07:09 10/27/16 10:31 10/27/16 08:00 Intake and Output: 10/27/16 10/27/16 06:59 18:59 Intake Total 800 100 Output Total 1725 Balance -925 100 - Medications Medications: Current Medications Acetaminophen (Tylenol 325mg Tab) 650 mg PO Q6H PRN PRN Reason: Fever >100.4 F Last Admin: 10/24/16 14:33 Dose: 650 mg Aspirin (Ecotrin) 81 mg PO 0800 [facility] Last Admin: 10/27/16 10:37 Dose: Not Given Aspirin (Aspirin Supp) 300 mg RC DAILY [facility] Last Admin: 10/27/16 10:30 Dose: 300 mg Furosemide (Lasix) 40 mg IVP Q12 [facility] Last Admin: 10/27/16 10:30 Dose: 40 mg Guaifenesin (Robitussin) 200 mg PO Q4H PRN PRN Reason: Cough and congestion Last Admin: 10/21/16 23:42 Dose: 200 mg Hydralazine HCl (Apresoline) 50 mg PO BID [facility] Last Admin: 10/21/16 18:32 Dose: Not Given Hydralazine HCl (Apresoline) 10 mg IVP Q6 PRN PRN Reason: give for SBP above 150 Last Admin: 10/26/16 14:41 Dose: 10 mg Meropenem 1g/NS 100mL IVPB (Meropenem 1g/Ns 100ml Ivpb) 1 gm in 100 mls @ 100 mls/hr IVPB Q8 [facility] PRN Reason: Protocol Last Admin: 10/27/16 05:28 Dose: 100 mls/hr Linezolid (Zyvox 600mg/300ml D5w) 600 mg in 300 mls @ 200 mls/hr IVPB Q12 [facility] PRN Reason: Protocol Last Admin: 10/27/16 10:32 Dose: 200 mls/hr Propofol (Diprivan) 1,000 mg in 100 mls @ 3.333 mls/hr IV .Q24H PRN; Protocol; 5 MCG/KG/MIN PRN Reason: TITRATE PER MD ORDER Last Admin: 10/27/16 10:31 Dose: 10 mcg/kg/min, 6.665 mls/hr Potassium Chloride (Potassium Chloride 20 Meq/100 Ml) 20 meq in 100 mls @ 50 mls/hr IVPB Q2H [facility] Stop: 10/27/16 11:29 Last Admin: 10/27/16 10:39 Dose: Not Given Insulin Human Lispro (Humalog Med) 0 units SC ACHS [facility] PRN Reason: Protocol Last Admin: 10/26/16 21:29 Dose: Not Given Isosorbide Mononitrate (Imdur) 60 mg PO DAILY [facility] Last Admin: 10/21/16 09:54 Dose: Not Given Lactic Acid (Lac-Hydrin 12% Lotion (225 G)) 0 gm EXT BID [facility] Last Admin: 10/27/16 10:39 Dose: 1 applic Levalbuterol HCl (Xopenex) 1.25 mg IH [id number] PRN PRN Reason: Shortness of Breath Last Admin: 10/27/16 02:20 Dose: 1.25 mg Metoprolol Tartrate (Lopressor) 25 mg PO BID [facility] Last Admin: 10/27/16 10:31 Dose: 25 mg Mupirocin (Bactroban Ointment) 0 gm TOP BID [facility] Last Admin: 10/27/16 10:36 Dose: 1 applic Nicotine (Nicoderm Cq) 1 patch TD DAILY [facility] Last Admin: 10/27/16 10:29 Dose: 1 patch Nystatin/Triamcinolone Acetonide (Nystatin/Triamcinolone Cream) 0 ea TOP BID [facility] Last Admin: 10/27/16 10:36 Dose: 1 applic Pantoprazole Sodium (Protonix Inj) 40 mg IVP DAILY [facility] Last Admin: 10/27/16 10:29 Dose: 40 mg Risperidone (Risperdal Tab) 0.25 mg PO BID [facility] PRN Reason: Protocol Last Admin: 10/27/16 10:31 Dose: 0.25 mg Tiotropium [place] (Spiriva) 18 mcg IH DAILY [facility] Last Admin: 10/27/16 10:41 Dose: Not Given Valsartan (Diovan) 320 mg PO DAILY [facility] Last Admin: 10/21/16 09:54 Dose: Not Given Warfarin Sodium (Coumadin) 4 mg PO 1800 [facility] PRN Reason: Protocol Last Admin: 10/23/16 17:44 Dose: 4 mg - Labs Labs: 10/27/16 05:45 10/27/16 05:45 PT 36.4 Seconds (9.9-11.8) H* 10/27/16 05:45 INR 3.37 (0.93-1.08) H 10/27/16 05:45 APTT 39.9 Seconds (23.7-30.8) H 10/23/16 05:40 - Constitutional Appears: Well, Non-toxic, No Acute Distress - Extremities Exam Additional comments: Lower extremity focused exam Vasc: DP and PT pulses non-palpable B/L secondary to edema. +1 pitting edema noted to left lower extremity. CFT < 4 seconds to digits 1-5 B/L. Derm: Left: Full thickness ulceration with necrotic central eschar noted to medial aspect of left hallux measuring approximately 4.1 cm x 3.5cm. Marita-wound margins absent maceration. Fibrotic wound border noted. No active drainage or exudate noted. No malodor, no fluctuance or other clinical signs of infection are noted at this time. Left lower leg non-blanchable erythema and callor extending from supra-malleolar level to tibial tuberosity circumfrentially. Right: Plantar distal tuft of hallux and 5th digit show ischemic changes, perfusion and skin tone within normal limits absent prior ischemic presentation. Neuro: Gross sensation diminished b/l Ortho: Mild tenderness noted on palpation of dorsal hallux Assessment and Plan - Assessment and Plan (Free Text) Assessment: 71 year old female with 1) Left hallux ulceration secondary to DM and PVD. 2) Left lower leg vasculopathy vs less likely cellulits. 3) Right foot ischemia of 1st and 5th digits secondary to PVD. Plan: Pt seen and evaluated at bedside with attending, Dr. Hoffman. Chart, labs and vitals reviewed; pt is afebrile, WBC WNL @ 10.3 Left hallux cleansed with sterile saline. Dressed with 4x4s and kerlix. Continue IV abx per ID. Ordered pair of multipodus boots to be used bilaterally for heel offloading. Podiatry will continue to follow patient while inhouse. <Nikia Hoffman - Last Filed: 11/02/16 19:52> Objective - Vital Signs/Intake and Output Vital Signs (last 24 hours): Temp Pulse Resp BP Pulse Ox 98 F 92 H 20 158/67 H 100 11/02/16 17:47 11/02/16 18:00 11/02/16 17:47 11/02/16 18:00 11/01/16 17:08 - Medications Medications: Current Medications Acetaminophen (Tylenol 325mg Tab) 650 mg PO Q6H PRN PRN Reason: Fever >100.4 F Last Admin: 11/02/16 16:47 Dose: 650 mg Aspirin (Ecotrin) 81 mg PO 0800 [facility] Last Admin: 11/02/16 08:41 Dose: 81 mg Furosemide (Lasix) 40 mg PO DAILY [facility] Last Admin: 11/02/16 10:29 Dose: 40 mg Guaifenesin (Robitussin) 200 mg PO Q4H PRN PRN Reason: Cough and congestion Last Admin: 11/01/16 14:45 Dose: 200 mg Hydralazine HCl (Apresoline) 50 mg PO BID [facility] Last Admin: 10/21/16 18:32 Dose: Not Given Hydralazine HCl (Apresoline) 10 mg IVP Q6 PRN PRN Reason: give for SBP above 150 Last Admin: 11/02/16 00:58 Dose: 10 mg Insulin Human Lispro (Humalog Med) 0 units SC ACHS [facility] PRN Reason: Protocol Last Admin: 11/02/16 18:01 Dose: 3 units Isosorbide Mononitrate (Imdur) 60 mg PO DAILY [facility] Last Admin: 10/21/16 09:54 Dose: Not Given Lactic Acid (Lac-Hydrin 12% Lotion (225 G)) 0 gm EXT BID [facility] Last Admin: 11/02/16 18:05 Dose: 1 applic Levalbuterol HCl (Xopenex) 1.25 mg IH [id number] PRN PRN Reason: Shortness of Breath Last Admin: 10/31/16 08:00 Dose: 1.25 mg Metoprolol Tartrate (Lopressor) 25 mg PO BID [facility] Last Admin: 11/02/16 18:00 Dose: 25 mg Mupirocin (Bactroban Ointment) 0 gm TOP BID [facility] Last Admin: 11/02/16 18:04 Dose: 1 applic Nicotine (Nicoderm Cq) 1 patch TD DAILY [facility] Last Admin: 11/02/16 10:30 Dose: 1 patch Nystatin/Triamcinolone Acetonide (Nystatin/Triamcinolone Cream) 0 ea TOP BID [facility] Last Admin: 11/02/16 18:07 Dose: 1 applic Pantoprazole Sodium (Protonix Ec Tab) 40 mg PO 0600 [facility] Last Admin: 11/02/16 08:40 Dose: 40 mg Risperidone (Risperdal Tab) 0.25 mg PO BID [facility] PRN Reason: Protocol Last Admin: 11/02/16 18:00 Dose: 0.25 mg Spironolactone (Aldactone) 25 mg PO DAILY [facility] Last Admin: 11/02/16 10:29 Dose: 25 mg Tiotropium [place] (Spiriva) 18 mcg IH DAILY [facility] Last Admin: 11/02/16 10:31 Dose: 18 mcg Valsartan (Diovan) 320 mg PO DAILY [facility] Last Admin: 11/02/16 10:30 Dose: 320 mg Warfarin Sodium (Coumadin) 4 mg PO 1800 [facility] PRN Reason: Protocol Last Admin: 11/02/16 18:00 Dose: 4 mg - Labs Labs: 11/01/16 05:33 11/01/16 05:33 PT 20.0 Seconds (9.9-11.8) H 11/01/16 05:33 INR 1.85 (0.93-1.08) H 11/01/16 05:33 APTT 39.9 Seconds (23.7-30.8) H 10/23/16 05:40 Attending/Attestation - Attestation I have personally seen and examined this patient.: Yes I have fully participated in the care of the patient.: Yes I have reviewed all pertinent clinical information, including history, physical exam and plan: Yes
--- NOTE | 2016-10-27 13:06 | CARD ---
APPROVED REPORT EKG Measurement Heart [id number] <Conclusion> Atrial fibrillation Nonspecific intraventricular block Cannot rule out Anteroseptal infarct, age undetermined T wave abnormality, consider lateral ischemia or digitalis effect possible old inferior infarct Abnormal ECG
[2016-10-27] MEDS: Insulin Lispro (humaLOG) MEDIUM Coverage SC SCH ×4 (15:05→22:00)
--- NOTE | 2016-10-27 16:07 | PN ---
DATE: 10/27/2016 REASON FOR CONSULTATION: Cardiac evaluation, coronary artery disease one vessel, status post respiratory failure, intubated. SUBJECTIVE: The patient is awake and alert on vent. OBJECTIVE: GENERAL: Not in apparent distress. VITAL SIGNS: Temperature afebrile, heart rate 90, blood pressure 110/57. HEENT: PERRLA. Extraocular muscles intact. NECK: Supple. No carotid bruit. No thyromegaly. CHEST: Clear to auscultation. HEART: S1 and S2 irregular. ABDOMEN: Soft. EXTREMITIES: Clubbing and cyanosis negative. LABORATORY DATA: Blood workup as follows: WBC 10, hemoglobin 10.9, hematocrit 31.2, platelet count 236. Chemistry shows sodium 137, potassium 3.3, chloride 91, carbon dioxide 30, anion gap of 11, BUN 21, creatinine 0.7. Total protein 6.3, albumin 3.4, albumin and globulin ratio 1.2. IMPRESSION: A 71-year-old morbidly obese female with past medical history significant for chronic obstructive pulmonary disease, obstructive sleep apnea, diabetes, hypertension, hyperlipidemia, chronic atrial fibrillation, admitted with sepsis, was transferred to the floor, the patient with acute respiratory failure, history of coronary artery disease one-vessel, status post cardiac catheterization one-vessel, right coronary artery totally occluded, very well collateralized from LAD, history of moderate aortic stenosis, who was sent to the floor from ICU. The patient had rapid response with respiratory failure, intubated. Now the patient is in the process of weaning off the vent. INR is 3.37. RECOMMENDATION: Wean of the vent. Hold Coumadin till the INR gets to 2.5. Continue valsartan. Continue isosorbide nitrate. Continue Lasix. Keep at negative fluid balance. We will hold Coumadin till the INR get improved. We will supplement potassium. We will follow with you. Thank you Dr. Kirby for providing the opportunity in taking care of patient. Brianna Sandra MD
--- NOTE | 2016-10-27 17:03 | PN ---
DATE: 10/27/2016 SUBJECTIVE: The patient is 71 years old, seen and examined, remains intubated on vent, alert though, opens eyes on verbal command. PHYSICAL EXAMINATION VITAL SIGNS: She is afebrile, pulse 90, respiration 18, blood pressure 110/57. LUNGS: Bilateral good air flow. No rhonchi or crackle. HEART: S1, S2 audible with systolic murmur. ABDOMEN: Soft, obese, nontender, no rebound, no guarding. NEUROLOGIC: She is sleepy, but arousal. LABORATORY DATA: WBC is 10.3, hemoglobin 9.6, hematocrit 31.2, platelet of 236. PT 36.4, INR 3.37. Chemistry: Sodium 137, potassium 3.3, chloride 91, CO2 38, BUN 21, creatinine 0.7, blood sugar of 147. X-ray of chest done today shows crowding of left basilar rhonchi with marking. No infiltrate. ASSESSMENT: 1. Respiratory failure. 2. Chronic obstructive pulmonary disease. 3. Pulmonary hypertension. 4. Hypertension. 5. Coronary artery disease. 6. Cardiac cirrhosis. 7. Non-insulin dependent diabetes. PLAN: We will hold off her Coumadin today. We will continue her on nebulizer treatment, continue diuresis. Continue on meropenem. Potassium has been supplemented. Currently, she is on Zyvox. We will discuss with patient's daughter at length. We will follow up this patient. Edwige Kirby MD
[2016-10-27] MEDS ORDERED: Potassium Chloride 20 mEq ER Tab PO ONE (18:11)
--- NOTE | 2016-10-27 19:41 | PN ---
DATE: 10/27/2016 SUBJECTIVE: The patient is seen sitting in bed in the ICU. She is awake. She is alert. She is somewhat groggy. She does not appear to be in any kind of distress. PHYSICAL EXAMINATION: GENERAL: Morbidly obese elderly lady, sitting in bed. VITAL SIGNS: Blood pressure 130/73, heart rate 95, respiratory rate 18 and temperature 98.2. HEENT: Normocephalic, atraumatic. NECK: Supple. No JVD. LUNGS: Bilateral rhonchi, distant breath sounds, equal expansion. CARDIAC: S1 and S2, regular rate and rhythm. No murmur, no rub. ABDOMEN: Obese, distended, soft, nontender. Bowel sounds present. EXTREMITIES: Erythema of the left lower extremity, dressing of the left foot, 1+ pitting edema of the right lower extremity. INTAKE AND OUTPUT: [id number]/3575. LABORATORY DATA: WBC 10, hemoglobin 9.6, hematocrit 31, platelets 236. Sodium 137, potassium 3.3, chloride 91, CO2 of 38, BUN 21, creatinine 0.7, glucose 147, calcium 9.2, phosphorus 3.3, magnesium 1.7, albumin 3.4. Urine culture, Klebsiella. Wound culture, pseudomonas and enterococcus. CURRENT MEDICATIONS: Apresoline, Bactroban, Coumadin, Diovan, Diprivan, aspirin, Imdur 60, Lasix 40 IV q. 12 hours, Lopressor 25 b.i.d., meropenem 1 g, potassium 20 mEq x2, Protonix 40, Risperdal, Robitussin, Spiriva and Tylenol. ASSESSMENT: 1. Resolved acute kidney injury, now with prerenal azotemia. 2. Severe hypokalemia. 3. Alkalemia. 4. Lower extremity cellulitis with cultures showing pseudomonas and enterococcus. 5. Klebsiella urinary tract infection. 6. Morbid obesity. 7. Chronic obstructive pulmonary disease. 8. [id number] diabetes mellitus. 9. Hypertension. 10. Peripheral vascular disease, status post angioplasty, currently stable. 11. Anemia of chronic disease. PLAN: 1. Aggressive potassium supplementation. 2. Start Aldactone 25 mg daily. 3. Continue antibiotics as per ID recommendation. 4. Switch to p.o. Lasix soon. 5. Continue to monitor electrolytes. 6. Case D/w ICU staff, residents. > 35 min spent in the care of this patient Naomi Hinojosa MD MTDD
--- NOTE | 2016-10-27 21:54 | CP.PCM.PN ---
<PAULA KWOK - Last Filed: 10/27/16 21:50> Subjective - Date & Time of Evaluation Date of Evaluation: 10/27/16 Time of Evaluation: 07:30 - Subjective Subjective: Paula Kwok DO PGY1 - ICU Progress Note Patient seen and examined at bedside. No acute events reported overnight. Patient failed weaning trial yesterday, will reattempt today. Patient remained intubated, but is awake and responsive. Appears to be in no acute distress. Objective - Vital Signs/Intake and Output Vital Signs (last 24 hours): Temp Pulse Resp BP Pulse Ox 98.2 F 90 22 143/95 H 89 L 10/27/16 04:00 10/27/16 21:30 10/27/16 21:30 10/27/16 21:30 10/27/16 21:30 Intake and Output: 10/27/16 10/28/16 18:59 06:59 Intake Total 100 Balance 100 - Medications Medications: Current Medications Acetaminophen (Tylenol 325mg Tab) 650 mg PO Q6H PRN PRN Reason: Fever >100.4 F Last Admin: 10/27/16 19:23 Dose: 650 mg Aspirin (Ecotrin) 81 mg PO 0800 [facility] Last Admin: 10/27/16 10:37 Dose: Not Given Furosemide (Lasix) 40 mg IVP Q12 [facility] Last Admin: 10/27/16 10:30 Dose: 40 mg Guaifenesin (Robitussin) 200 mg PO Q4H PRN PRN Reason: Cough and congestion Last Admin: 10/21/16 23:42 Dose: 200 mg Hydralazine HCl (Apresoline) 50 mg PO BID [facility] Last Admin: 10/21/16 18:32 Dose: Not Given Hydralazine HCl (Apresoline) 10 mg IVP Q6 PRN PRN Reason: give for SBP above 150 Last Admin: 10/26/16 14:41 Dose: 10 mg Meropenem 1g/NS 100mL IVPB (Meropenem 1g/Ns 100ml Ivpb) 1 gm in 100 mls @ 100 mls/hr IVPB Q8 [facility] PRN Reason: Protocol Last Admin: 10/27/16 18:29 Dose: 100 mls/hr Linezolid (Zyvox 600mg/300ml D5w) 600 mg in 300 mls @ 200 mls/hr IVPB Q12 [facility] PRN Reason: Protocol Last Admin: 10/27/16 10:32 Dose: 200 mls/hr Propofol (Diprivan) 1,000 mg in 100 mls @ 3.333 mls/hr IV .Q24H PRN; Protocol; 5 MCG/KG/MIN PRN Reason: TITRATE PER MD ORDER Last Admin: 10/27/16 10:31 Dose: 10 mcg/kg/min, 6.665 mls/hr Insulin Human Lispro (Humalog Med) 0 units SC ACHS [facility] PRN Reason: Protocol Last Admin: 10/27/16 16:30 Dose: Not Given Isosorbide Mononitrate (Imdur) 60 mg PO DAILY [facility] Last Admin: 10/21/16 09:54 Dose: Not Given Lactic Acid (Lac-Hydrin 12% Lotion (225 G)) 0 gm EXT BID [facility] Last Admin: 10/27/16 19:01 Dose: Not Given Levalbuterol HCl (Xopenex) 1.25 mg IH [id number] PRN PRN Reason: Shortness of Breath Last Admin: 10/27/16 02:20 Dose: 1.25 mg Metoprolol Tartrate (Lopressor) 25 mg PO BID [facility] Last Admin: 10/27/16 18:36 Dose: 25 mg Mupirocin (Bactroban Ointment) 0 gm TOP BID [facility] Last Admin: 10/27/16 19:01 Dose: Not Given Nicotine (Nicoderm Cq) 1 patch TD DAILY [facility] Last Admin: 10/27/16 10:29 Dose: 1 patch Nystatin/Triamcinolone Acetonide (Nystatin/Triamcinolone Cream) 0 ea TOP BID [facility] Last Admin: 10/27/16 19:01 Dose: Not Given Pantoprazole Sodium (Protonix Inj) 40 mg IVP DAILY [facility] Last Admin: 10/27/16 10:29 Dose: 40 mg Risperidone (Risperdal Tab) 0.25 mg PO BID [facility] PRN Reason: Protocol Last Admin: 10/27/16 18:35 Dose: 0.25 mg Spironolactone (Aldactone) 25 mg PO DAILY [facility] Last Admin: 10/27/16 18:35 Dose: 25 mg Tiotropium [place] (Spiriva) 18 mcg IH DAILY [facility] Last Admin: 10/27/16 10:41 Dose: Not Given Valsartan (Diovan) 320 mg PO DAILY [facility] Last Admin: 10/21/16 09:54 Dose: Not Given Warfarin Sodium (Coumadin) 4 mg PO 1800 [facility] PRN Reason: Protocol Last Admin: 10/23/16 17:44 Dose: 4 mg - Labs Labs: 10/27/16 05:45 10/27/16 05:45 PT 36.4 Seconds (9.9-11.8) H* 10/27/16 05:45 INR 3.37 (0.93-1.08) H 10/27/16 05:45 APTT 39.9 Seconds (23.7-30.8) H 10/23/16 05:40 - Constitutional Appears: Non-toxic, No Acute Distress, Chronically Ill - Head Exam Head Exam: ATRAUMATIC, NORMOCEPHALIC - Eye Exam Eye Exam: EOMI, PERRL - ENT Exam ENT Exam: Mucous Membranes Moist - Neck Exam Neck Exam: Normal Inspection. absent: Meningismus - Respiratory Exam Respiratory Exam: Rales (mild), NORMAL BREATHING PATTERN Additional comments: Intubated, on pressure support during exam. - Cardiovascular Exam Cardiovascular Exam: RRR, +S1, +S2 - GI/Abdominal Exam GI & Abdominal Exam: Soft, Normal Bowel Sounds. absent: Tenderness - Extremities Exam Additional comments: Erythema improving on b/l LE. Left great toe dressed. - Neurological Exam Neurological Exam: Alert, Awake - Psychiatric Exam Psychiatric exam: absent: Agitated, Anxious - Skin Skin Exam: Dry, Intact Additional comments: Improving erythema on b/l LE Assessment and Plan - Assessment and Plan (Free Text) Assessment: 71 F with PMHx morbid-obesity, diabetes, HTN, HLD, CAD, A-fib on coumadin, COPD , pulm HTN, CHF (EF 52%), chronic anemia, and hx GI bleed, previously admitted to the ICU for sepsis 2/2 MDR UTI, then discharged and readmitted for hypercapnic respiratory failure, then transfered and readmitted for hypoxemic respiratory failure 2/2 likely cardiogenic pulmonary edema, s/p code blue and currently intubated. Plan: Neuro: - Awake, alert, holding propofol for weaning trial - Continue to monitor Pulm: - Hypoxic respiratory failure, improving. - Currently intubated on pressure support, tolerating well, will extubate to BIPAP if continues to tolerate weaning trial. - CXR unchanged since yesterday - Continue lasix 40 Q12 for cardiogenic pulmonary edema, nebs, solumedrol - Goal SaO2 > 88% considering history of COPD - Spiriva, Xopenex prn q6 Cardio: - afib anticoagulated with coumadin, INR supratherapeutic, holding coumadin - Continue home ASA - Hydralazine, Imdur, and Diovan held on account of episode of hypotension - Continue Metoprolol 25 mg BID per cardio - Hydralazine 10mg IP Q6 PRN - Maintain MAP > 65 - Cardio consulted (Boaz), all recs appreciated GI: - OG tube in place, but currently NPO, will advance diet as tolerate - Protonix GI ppx Renal: - MDR UTI, on abx - Hold IVF due to pulmonary congestion, monitor fluid status closely - Monitor I's and O's - Monitor and replete electrolytes as needed MSK: - Left 1st toe ulceration, necrotic-appearing base, b/l cellulitis improving - Podiatry Dr. Hoffman consulted, wrapped ba lle, dressed with bactroban xeroform and dsd Heme: - Hgb 9.6,stable - INR 3.37, remains supratherapeutic, but improved since yesterday - therapeutic INR covers for DVT ppx ID: - Afebrile, leukocytosis improved since yesterday - MDR UTI and b/l LE cellulitis - Merrem and Zyvox IV - ID Dr. Obrien consulted and following Endo: - Holding PO DM meds - Insulin Med ISS and Accuchecks ACHS and Q4 - Maintain blood glucose 140-180 Ppx: protonix, therapeutic INR Patient seen, reviewed, and discussed with attending <Cassius Storm - Last Filed: 10/28/16 07:45> Objective - Vital Signs/Intake and Output Vital Signs (last 24 hours): Temp Pulse Resp BP Pulse Ox 98.4 F 85 13 162/76 H 98 10/28/16 00:00 10/28/16 05:01 10/28/16 05:01 10/28/16 05:01 10/28/16 05:01 Intake and Output: 10/28/16 10/28/16 06:59 18:59 Intake Total 450 Output Total 1500 Balance -1050 - Medications Medications: Current Medications Acetaminophen (Tylenol 325mg Tab) 650 mg PO Q6H PRN PRN Reason: Fever >100.4 F Last Admin: 10/27/16 19:23 Dose: 650 mg Aspirin (Ecotrin) 81 mg PO 0800 [facility] Last Admin: 10/27/16 10:37 Dose: Not Given Furosemide (Lasix) 40 mg IVP Q12 [facility] Last Admin: 10/27/16 21:51 Dose: 40 mg Guaifenesin (Robitussin) 200 mg PO Q4H PRN PRN Reason: Cough and congestion Last Admin: 10/21/16 23:42 Dose: 200 mg Hydralazine HCl (Apresoline) 50 mg PO BID [facility] Last Admin: 10/21/16 18:32 Dose: Not Given Hydralazine HCl (Apresoline) 10 mg IVP Q6 PRN PRN Reason: give for SBP above 150 Last Admin: 10/26/16 14:41 Dose: 10 mg Meropenem 1g/NS 100mL IVPB (Meropenem 1g/Ns 100ml Ivpb) 1 gm in 100 mls @ 100 mls/hr IVPB Q8 [facility] PRN Reason: Protocol Last Admin: 10/28/16 06:02 Dose: 100 mls/hr Linezolid (Zyvox 600mg/300ml D5w) 600 mg in 300 mls @ 200 mls/hr IVPB Q12 [facility] PRN Reason: Protocol Last Admin: 10/27/16 21:51 Dose: 200 mls/hr Propofol (Diprivan) 1,000 mg in 100 mls @ 3.333 mls/hr IV .Q24H PRN; Protocol; 5 MCG/KG/MIN PRN Reason: TITRATE PER MD ORDER Last Admin: 10/27/16 10:31 Dose: 10 mcg/kg/min, 6.665 mls/hr Insulin Human Lispro (Humalog Med) 0 units SC ACHS [facility] PRN Reason: Protocol Last Admin: 10/27/16 22:00 Dose: Not Given Isosorbide Mononitrate (Imdur) 60 mg PO DAILY [facility] Last Admin: 10/21/16 09:54 Dose: Not Given Lactic Acid (Lac-Hydrin 12% Lotion (225 G)) 0 gm EXT BID [facility] Last Admin: 10/27/16 19:01 Dose: Not Given Levalbuterol HCl (Xopenex) 1.25 mg IH [id number] PRN PRN Reason: Shortness of Breath Last Admin: 10/27/16 02:20 Dose: 1.25 mg Metoprolol Tartrate (Lopressor) 25 mg PO BID [facility] Last Admin: 10/27/16 18:36 Dose: 25 mg Mupirocin (Bactroban Ointment) 0 gm TOP BID [facility] Last Admin: 10/27/16 19:01 Dose: Not Given Nicotine (Nicoderm Cq) 1 patch TD DAILY [facility] Last Admin: 10/27/16 10:29 Dose: 1 patch Nystatin/Triamcinolone Acetonide (Nystatin/Triamcinolone Cream) 0 ea TOP BID [facility] Last Admin: 10/27/16 19:01 Dose: Not Given Pantoprazole Sodium (Protonix Inj) 40 mg IVP DAILY [facility] Last Admin: 10/27/16 10:29 Dose: 40 mg Risperidone (Risperdal Tab) 0.25 mg PO BID [facility] PRN Reason: Protocol Last Admin: 10/27/16 18:35 Dose: 0.25 mg Spironolactone (Aldactone) 25 mg PO DAILY [facility] Last Admin: 10/27/16 18:35 Dose: 25 mg Tiotropium [place] (Spiriva) 18 mcg IH DAILY [facility] Last Admin: 10/27/16 10:41 Dose: Not Given Valsartan (Diovan) 320 mg PO DAILY [facility] Last Admin: 10/21/16 09:54 Dose: Not Given Warfarin Sodium (Coumadin) 4 mg PO 1800 [facility] PRN Reason: Protocol Last Admin: 10/23/16 17:44 Dose: 4 mg - Labs Labs: 10/28/16 05:50 10/27/16 05:45 PT 29.4 Seconds (9.9-11.8) H 10/28/16 05:50 INR 2.72 (0.93-1.08) H 10/28/16 05:50 APTT 39.9 Seconds (23.7-30.8) H 10/23/16 05:40 Attending/Attestation - Attestation I have personally seen and examined this patient.: Yes I have fully participated in the care of the patient.: Yes I have reviewed all pertinent clinical information, including history, physical exam and plan: Yes Notes (Text): 10/28/16 07:44 71 yo female with severe COPD, initially admitted with hypercapnic respiratory failure, which required BPAP, nebs, steroid taper and abx. Will maintain euvolemia, euglycemia and normtohermia. DVT/GI prophylaxis ccm time 40 min
[2016-10-28] MEDS: Meropenem 1g/NS 100mL IVPB 1 GM/100 ML PIGGYBACK IVPB SCH ×3 (06:02→22:00)
[2016-10-28 06:31] LABS: ARTERIAL BLOOD GAS HCO3 38.2 mmol/L (21-28); ARTERIAL BLOOD GAS HEMOGLOBIN 9.5 g/dL (11.7-17.4); ARTERIAL BLOOD GAS O2 CAPACITY 13.3 mL/dl (16-24); ARTERIAL BLOOD GAS O2 CONTENT 13.2 ML/dl (15-23); ARTERIAL BLOOD GAS O2 SAT 99.2 % (95-98); ARTERIAL BLOOD GAS PCO2 55 mm/Hg (35-45); ARTERIAL BLOOD GAS PH 7.45 (7.35-7.45); ARTERIAL BLOOD GAS TCO2 39.9 mmol.L (22-28)
[2016-10-28 07:04] LABS: INR 2.72 (0.93-1.08); PROTHROMBIN TIME 29.4 Seconds (9.9-11.8)
[2016-10-28 07:08] LABS: BASO # 0.01 K/mm3 (0.0-2.0); BASO % 0.1 % (0.0-3.0); EOS # 0.3 (0.0-0.7); EOS % 3.3 % (1.5-5.0); GRAN # 6.98 (1.4-6.5); GRAN % 77.7 % (50.0-68.0); HEMOGLOBIN 10.2 g/dL (12.0-16.0); LYMPH # 0.9 (1.2-3.4); LYMPH % 10.5 % (22.0-35.0); MEAN CELL VOLUME 90.1 fl (80.0-105.0); MEAN CORPUSCULAR HEMOGLOBIN 27.4 pg (25.0-35.0); MEAN CORPUSCULAR HGB CONC 30.4 g/dl (31.0-37.0); MEAN PLATELET VOLUME 9.3 fl (7.0-11.0); MONO # 0.8 (0.1-0.6); MONO % 8.4 % (1.0-6.0); PLATELET COUNT 276 10^3/uL (120.0-450.0); RBC 3.72 10^6/uL (3.5-6.1); RED CELL DISTRIBUTION WIDTH 17.5 % (11.5-14.5)
[2016-10-28 07:33] LABS: ALB/GLOB RATIO 1.3 (1.1-1.8); ALBUMIN 3.8 g/dL (3.0-4.8); ALT/SGPT 19 U/L (7-56); AST/SGOT 23 U/L (15-39); BLOOD UREA NITROGEN 23 mg/dL (7-21); CALCIUM 9.4 mg/dL (8.4-10.5); GFR AFRICAN-AMERICAN > 60; GFR NON-AFRICAN AMERICAN > 60; MAGNESIUM 1.8 mg/dL (1.7-2.2)
[2016-10-28] MEDS: Insulin Lispro (humaLOG) MEDIUM Coverage SC SCH ×3 (08:08→23:28)
--- NOTE | 2016-10-28 08:14 | RAD ---
HISTORY: intubated COMPARISON: 10/27/2016 FINDINGS: LUNGS: No active pulmonary disease. PLEURA: No significant pleural effusion identified, no pneumothorax apparent. CARDIOVASCULAR: Endotracheal tube and nasogastric tube have been removed. OSSEOUS STRUCTURES: No significant abnormalities. VISUALIZED UPPER ABDOMEN: Normal. OTHER FINDINGS: None. IMPRESSION: No active disease.
--- NOTE | 2016-10-28 08:35 | CP.PCM.PN ---
Subjective - Date & Time of Evaluation Date of Evaluation: 10/28/16 Time of Evaluation: 08:35 - Subjective Subjective: Patient is now extubated and on a BiPAP, not in distress, no fevers overnight. Objective - Vital Signs/Intake and Output Vital Signs (last 24 hours): Temp Pulse Resp BP Pulse Ox 98.4 F 85 13 162/76 H 98 10/28/16 00:00 10/28/16 05:01 10/28/16 05:01 10/28/16 05:01 10/28/16 05:01 Intake and Output: 10/27/16 10/28/16 18:59 06:59 Intake Total 800 Output Total 1800 Balance -1000 - Medications Medications: Current Medications Acetaminophen (Tylenol 325mg Tab) 650 mg PO Q6H PRN PRN Reason: Fever >100.4 F Last Admin: 10/27/16 19:23 Dose: 650 mg Aspirin (Ecotrin) 81 mg PO 0800 [facility] Last Admin: 10/27/16 10:37 Dose: Not Given Furosemide (Lasix) 40 mg IVP Q12 [facility] Last Admin: 10/27/16 21:51 Dose: 40 mg Guaifenesin (Robitussin) 200 mg PO Q4H PRN PRN Reason: Cough and congestion Last Admin: 10/21/16 23:42 Dose: 200 mg Hydralazine HCl (Apresoline) 50 mg PO BID [facility] Last Admin: 10/21/16 18:32 Dose: Not Given Hydralazine HCl (Apresoline) 10 mg IVP Q6 PRN PRN Reason: give for SBP above 150 Last Admin: 10/26/16 14:41 Dose: 10 mg Meropenem 1g/NS 100mL IVPB (Meropenem 1g/Ns 100ml Ivpb) 1 gm in 100 mls @ 100 mls/hr IVPB Q8 [facility] PRN Reason: Protocol Last Admin: 10/28/16 06:02 Dose: 100 mls/hr Linezolid (Zyvox 600mg/300ml D5w) 600 mg in 300 mls @ 200 mls/hr IVPB Q12 [facility] PRN Reason: Protocol Last Admin: 10/27/16 21:51 Dose: 200 mls/hr Propofol (Diprivan) 1,000 mg in 100 mls @ 3.333 mls/hr IV .Q24H PRN; Protocol; 5 MCG/KG/MIN PRN Reason: TITRATE PER MD ORDER Last Admin: 10/27/16 10:31 Dose: 10 mcg/kg/min, 6.665 mls/hr Insulin Human Lispro (Humalog Med) 0 units SC ACHS [facility] PRN Reason: Protocol Last Admin: 10/27/16 22:00 Dose: Not Given Isosorbide Mononitrate (Imdur) 60 mg PO DAILY [facility] Last Admin: 10/21/16 09:54 Dose: Not Given Lactic Acid (Lac-Hydrin 12% Lotion (225 G)) 0 gm EXT BID [facility] Last Admin: 10/27/16 19:01 Dose: Not Given Levalbuterol HCl (Xopenex) 1.25 mg IH [id number] PRN PRN Reason: Shortness of Breath Last Admin: 10/27/16 02:20 Dose: 1.25 mg Metoprolol Tartrate (Lopressor) 25 mg PO BID [facility] Last Admin: 10/27/16 18:36 Dose: 25 mg Mupirocin (Bactroban Ointment) 0 gm TOP BID [facility] Last Admin: 10/27/16 19:01 Dose: Not Given Nicotine (Nicoderm Cq) 1 patch TD DAILY [facility] Last Admin: 10/27/16 10:29 Dose: 1 patch Nystatin/Triamcinolone Acetonide (Nystatin/Triamcinolone Cream) 0 ea TOP BID [facility] Last Admin: 10/27/16 19:01 Dose: Not Given Pantoprazole Sodium (Protonix Inj) 40 mg IVP DAILY [facility] Last Admin: 10/27/16 10:29 Dose: 40 mg Risperidone (Risperdal Tab) 0.25 mg PO BID [facility] PRN Reason: Protocol Last Admin: 10/27/16 18:35 Dose: 0.25 mg Spironolactone (Aldactone) 25 mg PO DAILY [facility] Last Admin: 10/27/16 18:35 Dose: 25 mg Tiotropium [place] (Spiriva) 18 mcg IH DAILY [facility] Last Admin: 10/27/16 10:41 Dose: Not Given Valsartan (Diovan) 320 mg PO DAILY [facility] Last Admin: 10/21/16 09:54 Dose: Not Given Warfarin Sodium (Coumadin) 4 mg PO 1800 [facility] PRN Reason: Protocol Last Admin: 10/23/16 17:44 Dose: 4 mg - Labs Labs: 10/27/16 05:45 10/27/16 05:45 PT 36.4 Seconds (9.9-11.8) H* 10/27/16 05:45 INR 3.37 (0.93-1.08) H 10/27/16 05:45 APTT 39.9 Seconds (23.7-30.8) H 10/23/16 05:40 - Constitutional Appears: Non-toxic, No Acute Distress - Head Exam Head Exam: NORMAL INSPECTION - Neck Exam Neck Exam: absent: Meningismus - Respiratory Exam Respiratory Exam: Decreased Breath Sounds - Cardiovascular Exam Cardiovascular Exam: +S1, +S2 - GI/Abdominal Exam GI & Abdominal Exam: Soft. absent: Tenderness - Extremities Exam Additional comments: right foot with dry dressings in place Assessment and Plan - Assessment and Plan (Free Text) Plan: Assessment sepsis from UTI, and cellulitis of the left foot, slowly improving S/P Ventilator-dependent respiratory failure probably from pulmonary edema hypoventilation R/O aspiration pneumonia, healthcare-associated history of infected diabetic ulceration of the left hallux associated with trauma with probable peripheral vascular disease, growing MRSA - no evidence of osteomyelitis on MRI - S/P arthrectomy and angioplasty of left sided lower extremity vasculature S/P Sepsis with acute hypoxic respiratory failure secondary to left-sided healthcare-associated pneumonia with possible gram positive cocci and/or gram negative bacilli, clinically improved and S/P treatment as well as sepsis from persistent methicillin-resistant coagulase negative staph bacteremia , probably port infection S/P removal of the port history of Group G Strep bacteremia history of E. coli UTI history of healthcare-associated pneumonia acute renal failure obesity with BMI 38 CAD GERD arthritis history of bilateral knee replacements chronic CHF COPD DM history of breast CA History of Strep bovis bacteremia (2012) S/P Port-a-cath placement Plan continue Zyvox and Merrem day 8; toe cx growing E. faecalis and Pseudomonas, urine growing Klebsiella; will target 7-10 days of therapy follow up Dr. Maldonado Barnett's evaluation of the patient's peripheral vascular disease will continue to followup clinically
[2016-10-28] MEDS ORDERED: Potassium Chloride 20 mEq ER Tab PO ONE (09:25)
[2016-10-28] MEDS: Linezolid 600 mg in D5W 300 ml 600 MG/300 ML BAG IVPB SCH ×2 (09:54→22:01)
[2016-10-28] MEDS: Tiotropium 18 mcg Cap For Inhalation IH SCH (10:02)
[2016-10-28] MEDS: Nystatin-Triamcinolone Cream(30 gm) TOP SCH ×2 (11:37→17:31)
[2016-10-28] MEDS: Ammonium Lactate 12% Lotion (225 g) EXT SCH ×2 (11:44→17:30)
--- NOTE | 2016-10-28 12:51 | CP.PCM.PN ---
<LowellLy - Last Filed: 10/28/16 12:47> Subjective - Date & Time of Evaluation Date of Evaluation: 10/28/16 Time of Evaluation: 07:00 - Subjective Subjective: ICU Progress Note, Ly Etienne PGY-1 Patient seen and examined at bedside. Pt has mild complaints of low back pain. As per nursing staff, pt had isolated episodes of htn. Pt is extubated and tolerated BIPAP. Objective - Vital Signs/Intake and Output Vital Signs (last 24 hours): Temp Pulse Resp BP Pulse Ox 98.1 F 87 13 162/94 H 98 10/28/16 04:00 10/28/16 10:02 10/28/16 05:01 10/28/16 10:02 10/28/16 05:01 Intake and Output: 10/28/16 10/28/16 06:59 18:59 Intake Total 450 Output Total 1500 Balance -1050 - Medications Medications: Current Medications Acetaminophen (Tylenol 325mg Tab) 650 mg PO Q6H PRN PRN Reason: Fever >100.4 F Last Admin: 10/28/16 11:23 Dose: 650 mg Aspirin (Ecotrin) 81 mg PO 0800 [facility] Last Admin: 10/28/16 10:02 Dose: 81 mg Furosemide (Lasix) 40 mg IVP Q12 [facility] Last Admin: 10/28/16 10:02 Dose: 40 mg Guaifenesin (Robitussin) 200 mg PO Q4H PRN PRN Reason: Cough and congestion Last Admin: 10/21/16 23:42 Dose: 200 mg Hydralazine HCl (Apresoline) 50 mg PO BID [facility] Last Admin: 10/21/16 18:32 Dose: Not Given Hydralazine HCl (Apresoline) 10 mg IVP Q6 PRN PRN Reason: give for SBP above 150 Last Admin: 10/26/16 14:41 Dose: 10 mg Meropenem 1g/NS 100mL IVPB (Meropenem 1g/Ns 100ml Ivpb) 1 gm in 100 mls @ 100 mls/hr IVPB Q8 [facility] PRN Reason: Protocol Last Admin: 10/28/16 06:02 Dose: 100 mls/hr Linezolid (Zyvox 600mg/300ml D5w) 600 mg in 300 mls @ 200 mls/hr IVPB Q12 [facility] PRN Reason: Protocol Last Admin: 10/28/16 09:54 Dose: 200 mls/hr Propofol (Diprivan) 1,000 mg in 100 mls @ 3.333 mls/hr IV .Q24H PRN; Protocol; 5 MCG/KG/MIN PRN Reason: TITRATE PER MD ORDER Last Admin: 10/27/16 10:31 Dose: 10 mcg/kg/min, 6.665 mls/hr Insulin Human Lispro (Humalog Med) 0 units SC ACHS [facility] PRN Reason: Protocol Last Admin: 10/28/16 08:08 Dose: Not Given Isosorbide Mononitrate (Imdur) 60 mg PO DAILY [facility] Last Admin: 10/21/16 09:54 Dose: Not Given Lactic Acid (Lac-Hydrin 12% Lotion (225 G)) 0 gm EXT BID [facility] Last Admin: 10/28/16 11:44 Dose: 1 applic Levalbuterol HCl (Xopenex) 1.25 mg IH [id number] PRN PRN Reason: Shortness of Breath Last Admin: 10/27/16 02:20 Dose: 1.25 mg Metoprolol Tartrate (Lopressor) 25 mg PO BID [facility] Last Admin: 10/28/16 10:02 Dose: 25 mg Mupirocin (Bactroban Ointment) 0 gm TOP BID [facility] Last Admin: 10/28/16 11:37 Dose: 1 applic Nicotine (Nicoderm Cq) 1 patch TD DAILY [facility] Last Admin: 10/28/16 12:10 Dose: 1 patch Nystatin/Triamcinolone Acetonide (Nystatin/Triamcinolone Cream) 0 ea TOP BID [facility] Last Admin: 10/28/16 11:37 Dose: 1 applic Pantoprazole Sodium (Protonix Inj) 40 mg IVP DAILY [facility] Last Admin: 10/28/16 10:01 Dose: 40 mg Risperidone (Risperdal Tab) 0.25 mg PO BID [facility] PRN Reason: Protocol Last Admin: 10/28/16 11:24 Dose: 0.25 mg Spironolactone (Aldactone) 25 mg PO DAILY [facility] Last Admin: 10/28/16 11:23 Dose: 25 mg Tiotropium [place] (Spiriva) 18 mcg IH DAILY [facility] Last Admin: 10/28/16 10:02 Dose: 18 mcg Valsartan (Diovan) 320 mg PO DAILY [facility] Last Admin: 10/21/16 09:54 Dose: Not Given Warfarin Sodium (Coumadin) 2 mg PO 1800 [facility] PRN Reason: Protocol - Labs Labs: 10/28/16 05:50 10/28/16 05:50 PT 29.4 Seconds (9.9-11.8) H 10/28/16 05:50 INR 2.72 (0.93-1.08) H 10/28/16 05:50 APTT 39.9 Seconds (23.7-30.8) H 10/23/16 05:40 - Constitutional Appears: No Acute Distress, Other (morbidly obese) - Head Exam Head Exam: ATRAUMATIC, NORMAL INSPECTION, NORMOCEPHALIC - Eye Exam Eye Exam: EOMI, Normal appearance, PERRL Pupil Exam: NORMAL ACCOMODATION, PERRL - ENT Exam ENT Exam: Mucous Membranes Moist, Normal Exam - Neck Exam Neck Exam: Full ROM, Normal Inspection. absent: Lymphadenopathy - Respiratory Exam Respiratory Exam: Decreased Breath Sounds, NORMAL BREATHING PATTERN - Cardiovascular Exam Cardiovascular Exam: REGULAR RHYTHM, +S1, +S2. absent: Murmur - GI/Abdominal Exam GI & Abdominal Exam: Soft, Normal Bowel Sounds. absent: Tenderness - Extremities Exam Extremities Exam: Pedal Edema Additional comments: improved erythema b/l le. Bandaged LLE - Neurological Exam Neurological Exam: Alert, Awake, CN II-XII Intact, Oriented x3 - Psychiatric Exam Psychiatric exam: Normal Affect, Normal Mood - Skin Skin Exam: Dry, Intact, Normal Color, Warm Assessment and Plan - Assessment and Plan (Free Text) Assessment: 71 F with PMHx morbid-obesity, diabetes, HTN, HLD, CAD, A-fib on coumadin, COPD , pulm HTN, CHF (EF 52%), chronic anemia, and hx GI bleed, previously admitted to the ICU for sepsis 2/2 MDR UTI, then discharged and readmitted for hypercapnic respiratory failure, then transfered and readmitted for hypoxemic respiratory failure 2/2 likely cardiogenic pulmonary edema, s/p code blue and recently extubated to Bipap and tolerating well. Neuro: - AAOx3 - Stable - Moving all extremities - Continue to monitor Pulm: - Hypoxic respiratory failure, resolved - extubated to BIPAP - CXR improved from yesterday - lasix for symptomatic relief however monitor for contraction alkalosis - Continue pulmonary toilet duonebs, solumedrol - Goal SaO2 > 88% considering history of COPD - Spiriva, Xopenex prn q6 Cardio: - afib anticoagulated with coumadin, INR therapeutic, will restart coumadin - Continue home ASA - Hydralazine 10mg IP Q6 PRN for isolated HTN episodes SBP>150 - Maintain MAP > 65 - Cardio consulted (Boaz), will discuss all cardiac meds at this time considering pt's last recorded EF GI: - FLD advance diet as tolerate - Protonix GI ppx Renal: - MDR UTI, on abx - Monitor I's and O's - Monitor and replete electrolytes as needed MSK: - Left 1st toe ulceration, necrotic-appearing base, b/l cellulitis improving - Podiatry Dr. Hoffman consulted, wrapped ba lle, dressed with bactroban xeroform and dsd Heme: - H&H stable - INR therapeutic, restart coumadin - therapeutic INR covers for DVT ppx ID: - Afebrile, leukocytosis improved - MDR UTI and b/l LE cellulitis - Merrem and Zyvox - ID Dr. Obrien consulted and following Endo: - Insulin Med ISS and Accuchecks ACHS and Q4 - Maintain blood glucose 140-180 DVT/GI Ppx: protonix, therapeutic INR Patient seen, reviewed, and discussed with attending <Cassius Storm - Last Filed: 10/28/16 16:40> Objective - Vital Signs/Intake and Output Vital Signs (last 24 hours): Temp Pulse Resp BP Pulse Ox 98.1 F 87 13 162/94 H 98 10/28/16 04:00 10/28/16 10:02 10/28/16 05:01 10/28/16 10:02 10/28/16 05:01 Intake and Output: 10/28/16 10/28/16 06:59 18:59 Intake Total 450 Output Total 1500 Balance -1050 - Medications Medications: Current Medications Acetaminophen (Tylenol 325mg Tab) 650 mg PO Q6H PRN PRN Reason: Fever >100.4 F Last Admin: 10/28/16 11:23 Dose: 650 mg Aspirin (Ecotrin) 81 mg PO 0800 [facility] Last Admin: 10/28/16 10:02 Dose: 81 mg Furosemide (Lasix) 40 mg PO DAILY [facility] Guaifenesin (Robitussin) 200 mg PO Q4H PRN PRN Reason: Cough and congestion Last Admin: 10/21/16 23:42 Dose: 200 mg Hydralazine HCl (Apresoline) 50 mg PO BID [facility] Last Admin: 10/21/16 18:32 Dose: Not Given Hydralazine HCl (Apresoline) 10 mg IVP Q6 PRN PRN Reason: give for SBP above 150 Last Admin: 10/26/16 14:41 Dose: 10 mg Meropenem 1g/NS 100mL IVPB (Meropenem 1g/Ns 100ml Ivpb) 1 gm in 100 mls @ 100 mls/hr IVPB Q8 [facility] PRN Reason: Protocol Last Admin: 10/28/16 14:20 Dose: 100 mls/hr Linezolid (Zyvox 600mg/300ml D5w) 600 mg in 300 mls @ 200 mls/hr IVPB Q12 [facility] PRN Reason: Protocol Last Admin: 10/28/16 09:54 Dose: 200 mls/hr Propofol (Diprivan) 1,000 mg in 100 mls @ 3.333 mls/hr IV .Q24H PRN; Protocol; 5 MCG/KG/MIN PRN Reason: TITRATE PER MD ORDER Last Admin: 10/27/16 10:31 Dose: 10 mcg/kg/min, 6.665 mls/hr Insulin Human Lispro (Humalog Med) 0 units SC ACHS [facility] PRN Reason: Protocol Last Admin: 10/28/16 14:20 Dose: 5 units Isosorbide Mononitrate (Imdur) 60 mg PO DAILY [facility] Last Admin: 10/21/16 09:54 Dose: Not Given Lactic Acid (Lac-Hydrin 12% Lotion (225 G)) 0 gm EXT BID [facility] Last Admin: 10/28/16 11:44 Dose: 1 applic Levalbuterol HCl (Xopenex) 1.25 mg IH [id number] PRN PRN Reason: Shortness of Breath Last Admin: 10/27/16 02:20 Dose: 1.25 mg Metoprolol Tartrate (Lopressor) 25 mg PO BID [facility] Last Admin: 10/28/16 10:02 Dose: 25 mg Mupirocin (Bactroban Ointment) 0 gm TOP BID [facility] Last Admin: 10/28/16 11:37 Dose: 1 applic Nicotine (Nicoderm Cq) 1 patch TD DAILY [facility] Last Admin: 10/28/16 12:10 Dose: 1 patch Nystatin/Triamcinolone Acetonide (Nystatin/Triamcinolone Cream) 0 ea TOP BID [facility] Last Admin: 10/28/16 11:37 Dose: 1 applic Pantoprazole Sodium (Protonix Inj) 40 mg IVP DAILY [facility] Last Admin: 10/28/16 10:01 Dose: 40 mg Risperidone (Risperdal Tab) 0.25 mg PO BID [facility] PRN Reason: Protocol Last Admin: 10/28/16 11:24 Dose: 0.25 mg Spironolactone (Aldactone) 25 mg PO DAILY [facility] Last Admin: 10/28/16 11:23 Dose: 25 mg Tiotropium [place] (Spiriva) 18 mcg IH DAILY [facility] Last Admin: 10/28/16 10:02 Dose: 18 mcg Valsartan (Diovan) 320 mg PO DAILY [facility] Last Admin: 10/28/16 14:19 Dose: 320 mg Warfarin Sodium (Coumadin) 2 mg PO 1800 [facility] PRN Reason: Protocol - Labs Labs: 10/28/16 05:50 10/28/16 05:50 PT 29.4 Seconds (9.9-11.8) H 10/28/16 05:50 INR 2.72 (0.93-1.08) H 10/28/16 05:50 APTT 39.9 Seconds (23.7-30.8) H 10/23/16 05:40 Attending/Attestation - Attestation I have personally seen and examined this patient.: Yes I have fully participated in the care of the patient.: Yes I have reviewed all pertinent clinical information, including history, physical exam and plan: Yes Notes (Text): 10/28/16 16:34 71 yo with HcRF and severe COPD, with now resolved HcRF and successfully extubated. Tolerated BPAP overnight. Ate, while on NC, comfortable. DVT/GI prophylaxis, bronchodilators, steroids taper, abx, BPAP at night ccm time 40 min
--- NOTE | 2016-10-28 13:40 | PN ---
DATE: 10/28/2016 REASON FOR CONSULTATION: Followup cardiac evaluation, coronary artery disease one vessel, status post respiratory failure, status post successfully extubated. SUBJECTIVE: The patient is awake and alert. Denies any chest pain or shortness of breath or any palpitations. Status post extubated on Venti mask. PHYSICAL EXAMINATION: GENERAL: Not in apparent distress, lying flat. VITAL SIGNS: Temperature afebrile, heart rate 85, and blood pressure 162/76. HEENT: PERRLA. Extraocular muscles intact. NECK: Supple. No carotid bruit or thyromegaly. CHEST: Clear to auscultation. HEART: S1 and S2 regular. ABDOMEN: Soft. EXTREMITIES: Clubbing and cyanosis negative. LABORATORY DATA: Blood workup as follows: WBC 9, hemoglobin 10.2, hematocrit 33.5, and platelet count 276. Chemistry shows sodium 140, potassium 3.5, chloride 90, carbon dioxide 36, anion gap of 18, BUN 23, and creatinine 0.6. Total protein 6.8, albumin 3.8, and albumin and globulin ratio 1.3. IMPRESSION: 1. Status post respiratory failure, intubated, now successfully extubated. 2. History of chronic atrial fibrillation. 3. History of coronary artery disease one vessel right coronary artery totally occluded, very well collateralized from left anterior descending. 4. Morbid obesity. 5. Chronic atrial fibrillation. 6. Moderate aortic stenosis. 7. Mitral regurgitation. RECOMMENDATIONS: I resume back Coumadin low dose as the goal is to keep INR between 2 to 2.5, supplement potassium. Repeat INR in the morning. Continue low-dose beta-chico. We will follow with you. Continue gentle diuretic. Keep negative fluid balance. We will follow with you. Continue hydralazine b.i.d. Continue supplement potassium. Continue Lasix. Continue metoprolol. We will follow with you. Repeat the blood work in the morning. Thank you Dr. Kirby for providing the opportunity in taking care of patient, Esther Baxter. Brianna Sandra MD
--- NOTE | 2016-10-28 13:47 | CP.PCM.PN ---
<Khris Rowland - Last Filed: 10/28/16 13:42> Subjective - Date & Time of Evaluation Date of Evaluation: 10/28/16 Time of Evaluation: 12:50 - Subjective Subjective: 71 year old female patient seen at bedside with attending, Dr. Henriquez, for left hallux ulceration, leg erythema, and right digital ischemia. Pt is extubated and breathing normally at time of visit. Pt's responses are sluggish but patient is alert awake, and oriented. Pt deneis recent f/c/cp/sob.n/v. No toehr pedal complaints. Objective - Vital Signs/Intake and Output Vital Signs (last 24 hours): Temp Pulse Resp BP Pulse Ox 98.1 F 87 13 162/94 H 98 10/28/16 04:00 10/28/16 10:02 10/28/16 05:01 10/28/16 10:02 10/28/16 05:01 Intake and Output: 10/28/16 10/28/16 06:59 18:59 Intake Total 450 Output Total 1500 Balance -1050 - Medications Medications: Current Medications Acetaminophen (Tylenol 325mg Tab) 650 mg PO Q6H PRN PRN Reason: Fever >100.4 F Last Admin: 10/28/16 11:23 Dose: 650 mg Aspirin (Ecotrin) 81 mg PO 0800 [facility] Last Admin: 10/28/16 10:02 Dose: 81 mg Furosemide (Lasix) 40 mg PO DAILY [facility] Guaifenesin (Robitussin) 200 mg PO Q4H PRN PRN Reason: Cough and congestion Last Admin: 10/21/16 23:42 Dose: 200 mg Hydralazine HCl (Apresoline) 50 mg PO BID [facility] Last Admin: 10/21/16 18:32 Dose: Not Given Hydralazine HCl (Apresoline) 10 mg IVP Q6 PRN PRN Reason: give for SBP above 150 Last Admin: 10/26/16 14:41 Dose: 10 mg Meropenem 1g/NS 100mL IVPB (Meropenem 1g/Ns 100ml Ivpb) 1 gm in 100 mls @ 100 mls/hr IVPB Q8 [facility] PRN Reason: Protocol Last Admin: 10/28/16 06:02 Dose: 100 mls/hr Linezolid (Zyvox 600mg/300ml D5w) 600 mg in 300 mls @ 200 mls/hr IVPB Q12 [facility] PRN Reason: Protocol Last Admin: 10/28/16 09:54 Dose: 200 mls/hr Propofol (Diprivan) 1,000 mg in 100 mls @ 3.333 mls/hr IV .Q24H PRN; Protocol; 5 MCG/KG/MIN PRN Reason: TITRATE PER MD ORDER Last Admin: 10/27/16 10:31 Dose: 10 mcg/kg/min, 6.665 mls/hr Insulin Human Lispro (Humalog Med) 0 units SC ACHS [facility] PRN Reason: Protocol Last Admin: 10/28/16 08:08 Dose: Not Given Isosorbide Mononitrate (Imdur) 60 mg PO DAILY [facility] Last Admin: 10/21/16 09:54 Dose: Not Given Lactic Acid (Lac-Hydrin 12% Lotion (225 G)) 0 gm EXT BID [facility] Last Admin: 10/28/16 11:44 Dose: 1 applic Levalbuterol HCl (Xopenex) 1.25 mg IH [id number] PRN PRN Reason: Shortness of Breath Last Admin: 10/27/16 02:20 Dose: 1.25 mg Metoprolol Tartrate (Lopressor) 25 mg PO BID [facility] Last Admin: 10/28/16 10:02 Dose: 25 mg Mupirocin (Bactroban Ointment) 0 gm TOP BID [facility] Last Admin: 10/28/16 11:37 Dose: 1 applic Nicotine (Nicoderm Cq) 1 patch TD DAILY [facility] Last Admin: 10/28/16 12:10 Dose: 1 patch Nystatin/Triamcinolone Acetonide (Nystatin/Triamcinolone Cream) 0 ea TOP BID [facility] Last Admin: 10/28/16 11:37 Dose: 1 applic Pantoprazole Sodium (Protonix Inj) 40 mg IVP DAILY [facility] Last Admin: 10/28/16 10:01 Dose: 40 mg Risperidone (Risperdal Tab) 0.25 mg PO BID [facility] PRN Reason: Protocol Last Admin: 10/28/16 11:24 Dose: 0.25 mg Spironolactone (Aldactone) 25 mg PO DAILY [facility] Last Admin: 10/28/16 11:23 Dose: 25 mg Tiotropium [place] (Spiriva) 18 mcg IH DAILY [facility] Last Admin: 10/28/16 10:02 Dose: 18 mcg Valsartan (Diovan) 320 mg PO DAILY [facility] Warfarin Sodium (Coumadin) 2 mg PO 1800 [facility] PRN Reason: Protocol - Labs Labs: 10/28/16 05:50 10/28/16 05:50 PT 29.4 Seconds (9.9-11.8) H 10/28/16 05:50 INR 2.72 (0.93-1.08) H 10/28/16 05:50 APTT 39.9 Seconds (23.7-30.8) H 10/23/16 05:40 - Constitutional Appears: Well, Non-toxic, No Acute Distress - Extremities Exam Additional comments: Lower extremity focused exam Vasc: DP and PT pulses non-palpable B/L secondary to edema. +1 pitting edema noted to left lower extremity. CFT < 4 seconds to digits 1-5 B/L. Derm: Left: Full thickness ulceration with necrotic central eschar noted to medial aspect of left hallux measuring approximately 4.1 cm x 3.5cm. Marita-wound margins absent maceration. Fibrotic wound border noted. No active drainage or exudate noted. No malodor, no fluctuance or other clinical signs of infection are noted at this time. Left lower leg blanchable erythema absent callor extending from supra-malleolar level to tibial tuberosity circumfrentially. Intensity markedly decreased and area of erythema regressing compared to marked perimeter. Right: Plantar distal tuft of hallux and 5th digit show ischemic changes, perfusion and skin tone within normal limits absent prior ischemic presentation. Neuro: Gross sensation diminished b/l Ortho: Mild tenderness noted on palpation of dorsal hallux - Neurological Exam Neurological Exam: Alert, Awake, Oriented x3 Assessment and Plan - Assessment and Plan (Free Text) Assessment: 71 year old female with 1) Left hallux ulceration secondary to DM and PVD. 2) Left lower leg vasculopathy vs less likely cellulits. 3) Right foot ischemia of 1st and 5th digits secondary to PVD. Plan: Pt seen and evaluated at bedside with attending, Dr. Henriquez. Chart, labs and vitals reviewed; pt is afebrile, WBC WNL @ 9.0 Left hallux cleansed with sterile saline. Dressed with 4x4s and kerlix. Continue IV abx per ID. Pending pair of multipodus boots to be used bilaterally for heel offloading. Podiatry will continue to follow patient while inhouse. <Deric Henriquez - Last Filed: 10/28/16 13:50> Objective - Vital Signs/Intake and Output Vital Signs (last 24 hours): Temp Pulse Resp BP Pulse Ox 98.1 F 87 13 162/94 H 98 10/28/16 04:00 10/28/16 10:02 10/28/16 05:01 10/28/16 10:02 10/28/16 05:01 Intake and Output: 10/28/16 10/28/16 06:59 18:59 Intake Total 450 Output Total 1500 Balance -1050 - Medications Medications: Current Medications Acetaminophen (Tylenol 325mg Tab) 650 mg PO Q6H PRN PRN Reason: Fever >100.4 F Last Admin: 10/28/16 11:23 Dose: 650 mg Aspirin (Ecotrin) 81 mg PO 0800 [facility] Last Admin: 10/28/16 10:02 Dose: 81 mg Furosemide (Lasix) 40 mg PO DAILY [facility] Guaifenesin (Robitussin) 200 mg PO Q4H PRN PRN Reason: Cough and congestion Last Admin: 10/21/16 23:42 Dose: 200 mg Hydralazine HCl (Apresoline) 50 mg PO BID [facility] Last Admin: 10/21/16 18:32 Dose: Not Given Hydralazine HCl (Apresoline) 10 mg IVP Q6 PRN PRN Reason: give for SBP above 150 Last Admin: 10/26/16 14:41 Dose: 10 mg Meropenem 1g/NS 100mL IVPB (Meropenem 1g/Ns 100ml Ivpb) 1 gm in 100 mls @ 100 mls/hr IVPB Q8 [facility] PRN Reason: Protocol Last Admin: 10/28/16 06:02 Dose: 100 mls/hr Linezolid (Zyvox 600mg/300ml D5w) 600 mg in 300 mls @ 200 mls/hr IVPB Q12 [facility] PRN Reason: Protocol Last Admin: 10/28/16 09:54 Dose: 200 mls/hr Propofol (Diprivan) 1,000 mg in 100 mls @ 3.333 mls/hr IV .Q24H PRN; Protocol; 5 MCG/KG/MIN PRN Reason: TITRATE PER MD ORDER Last Admin: 10/27/16 10:31 Dose: 10 mcg/kg/min, 6.665 mls/hr Insulin Human Lispro (Humalog Med) 0 units SC ACHS [facility] PRN Reason: Protocol Last Admin: 10/28/16 08:08 Dose: Not Given Isosorbide Mononitrate (Imdur) 60 mg PO DAILY [facility] Last Admin: 10/21/16 09:54 Dose: Not Given Lactic Acid (Lac-Hydrin 12% Lotion (225 G)) 0 gm EXT BID [facility] Last Admin: 10/28/16 11:44 Dose: 1 applic Levalbuterol HCl (Xopenex) 1.25 mg IH [id number] PRN PRN Reason: Shortness of Breath Last Admin: 10/27/16 02:20 Dose: 1.25 mg Metoprolol Tartrate (Lopressor) 25 mg PO BID [facility] Last Admin: 10/28/16 10:02 Dose: 25 mg Mupirocin (Bactroban Ointment) 0 gm TOP BID [facility] Last Admin: 10/28/16 11:37 Dose: 1 applic Nicotine (Nicoderm Cq) 1 patch TD DAILY [facility] Last Admin: 10/28/16 12:10 Dose: 1 patch Nystatin/Triamcinolone Acetonide (Nystatin/Triamcinolone Cream) 0 ea TOP BID [facility] Last Admin: 10/28/16 11:37 Dose: 1 applic Pantoprazole Sodium (Protonix Inj) 40 mg IVP DAILY [facility] Last Admin: 10/28/16 10:01 Dose: 40 mg Risperidone (Risperdal Tab) 0.25 mg PO BID [facility] PRN Reason: Protocol Last Admin: 10/28/16 11:24 Dose: 0.25 mg Spironolactone (Aldactone) 25 mg PO DAILY [facility] Last Admin: 10/28/16 11:23 Dose: 25 mg Tiotropium [place] (Spiriva) 18 mcg IH DAILY [facility] Last Admin: 10/28/16 10:02 Dose: 18 mcg Valsartan (Diovan) 320 mg PO DAILY [facility] Warfarin Sodium (Coumadin) 2 mg PO 1800 [facility] PRN Reason: Protocol - Labs Labs: 10/28/16 05:50 10/28/16 05:50 PT 29.4 Seconds (9.9-11.8) H 10/28/16 05:50 INR 2.72 (0.93-1.08) H 10/28/16 05:50 APTT 39.9 Seconds (23.7-30.8) H 10/23/16 05:40 Attending/Attestation - Attestation I have personally seen and examined this patient.: Yes I have fully participated in the care of the patient.: Yes I have reviewed all pertinent clinical information, including history, physical exam and plan: Yes
--- NOTE | 2016-10-28 16:21 | CARD ---
APPROVED REPORT EKG Measurement Heart [id number] <Conclusion> Atrial fibrillation Anteroseptal infarct, age undetermined ST & T wave abnormality, consider lateral ischemia or digitalis effect Abnormal ECG
--- NOTE | 2016-10-28 17:15 | PN ---
SUBJECTIVE: The patient currently seen in ICU bed 1. She has been transferred to the medical floor. When she was last seen by me, the patient developed a cardiac arrest. She was intubated, came to the ICU. She appears to be stable off the ventilator, hemodynamically doing well. She was given IV diuretic therapy for pulmonary edema. MEDICATIONS: Current medications include that of Aldactone, hydralazine p.r.n., mupirocin, Coumadin, Ecotrin, insulin, Lac-Hydrin, IV Lasix, Lopressor, meropenem, NicoDerm CQ, nystatin and triamcinolone cream, Protonix, Risperdal, Robitussin, Spiriva, Tylenol p.r.n., Xopenex p.r.n., and Zyvox IV. OBJECTIVE: INTAKE/OUTPUT: Intake 1250 and output 3300. VITAL SIGNS: Blood pressure 162/94, pulse 87, temperature 98.1, respiratory rate is 13. HEENT: The patient is sitting up in bed. Pupils equally reactive to light and accommodation. Extraocular muscles are intact. NECK: Supple. No neck vein distention. CHEST: Decreased breath sounds at the bases. Occasional rhonchi. No rales or wheezing. CARDIOVASCULAR: Showed a normal S1 and S2. No audible murmurs, rubs, or gallops noted. ABDOMEN: Obese. No distention. Soft and nontender. Bowel sounds are normal. EXTREMITIES: Show wound of her left lower extremity, currently being bandaged and dressed. Significant decrease in her lower extremity edema. LAB DATA AND IMAGING: CBC; white blood cell count 9.0, hemoglobin 10.2, platelet count of 276,000. Chemistries; sodium 140, potassium 3.5, chloride 90 with a CO2 of 36. BUN 22 with a creatinine of 0.6. Glucose is 124. Calcium 9.4, phosphorous 3.7, and magnesium level 1.8. Liver enzymes are normal. Microbiology; urines were positive for Klebsiella. Cultures of her feet were positive for Pseudomonas and Enterococcus. Chest x-ray from today shows no active pulmonary disease. Given her negative fluid balance over the last several days, we would decrease her Lasix to 40 mg by mouth daily. ASSESSMENT: 1. Stable renal parameters. Despite aggressive IV diuretic therapy, no significant worsening of her renal parameters. BUN is 22 with a creatinine of 0.6. 2. Borderline hypokalemia. The patient may continue on Aldactone and receive potassium supplements on an as-needed basis. 3. Klebsiella urinary tract infection, receiving appropriate antibiotic therapy. 4. Lower extremity cellulitis with wound cultures of her left foot positive for Pseudomonas and Enterococcus. The patient is again receiving appropriate antibiotic therapy. 5. Anemia in part secondary to infection with bone marrow suppression. The patient's iron saturations were low. The patient may receive from my standpoint IV iron supplements. This will likely help improve her hemoglobin. 6. History of morbid obesity. 8. History of pso-ycryyvl-nvtasmnpt diabetes mellitus. 9. History of hypertension, blood pressure controlled, is slightly suboptimal with systolics in the 160+ range on current meds. I will start the patient back on Diovan 320 mg a day. 10. History of peripheral vascular disease, status post angioplasty, currently stable. PLAN: 1. Agree with plans to transfer patient out of the ICU. 2. From my standpoint, the patient may receive Venofer therapy in light of her iron saturation of 5%. 3. Continue to monitor accurate I's and O's. Her pulmonary edema has resolved, and I will decrease Lasix to 40 mg daily p.o. 4. Follow daily labs. 5. Close renal followup through our hospitalization. El Walden MD
--- NOTE | 2016-10-28 18:19 | PN ---
DATE: 10/26/2016 HISTORY OF PRESENT ILLNESS: Ms. Baxter is admitted with sepsis, MRSA, coagulase negative staphylococcus bacteremia likely due to port infection status post port removal. She remains intubated sedated. Attempts to wean the ventilator have failed. She is agitated now. She also has acute renal failure morbid obesity. She has a history of breast cancer in remission. REVIEW OF SYSTEM: As per HPI. A 12-point review of system could not be obtained as the patient sedated intubated. PHYSICAL EXAMINATION VITAL SIGNS: Stable. Temperature 98.7, heart rate is 100 per minute, respiratory rate intubated sedated. HEENT: Pallor positive. NECK: No lymphadenopathy. CHEST: Air entry present and equal bilaterally. No added sounds. CARDIOVASCULAR: S1 and S2 normal. No murmur. No gallop. ABDOMEN: Soft, nontender, obese. EXTREMITIES: Bilateral edema present. SURGICAL SCHEDULER: Sedated intubated. Moving all the limbs. LABORATORY DATA: White count 11.3, hemoglobin 9.5, hematocrit 30.8, platelet count 227. Sodium 140, potassium 3.3, creatinine 0.8, glucose 140, INR 3.8. MEDICATIONS: Reviewed. ASSESSMENT AND PLAN: 1. Sepsis from urinary tract infection, cellulitis of the left foot. Sepsis improving currently on IV antibiotics as per ID. 2. Methicillin resistant staphylococcus aureus, coagulase negative staphylococcus likely port infection. 3. Acute renal failure, improving. 4. Morbid obesity, BMI 38. 5. Coronary artery disease, good. 6. Arthritis. 7. History of breast cancer, in remission. Suellen Oneill MD
[2016-10-28] MEDS: guaiFENesin 200 mg/10 ml Syrup UD PO PRN (22:25)
--- NOTE | 2016-10-28 23:23 | PN ---
SUBJECTIVE: The patient is a 71-year-old seen and examined. extubated, awake and alert, able to communicate. Not is any acute distress. Denies any nausea or vomiting. No diarrhea. No abdominal pain. PHYSICAL EXAMINATION: VITAL SIGNS: She is afebrile. Pulse 80, respirations 18 and blood pressure 151/82. LUNGS: Bilateral fair air flow. No rhonchi or crackles. HEART: S1 and S2 audible. ABDOMEN: Soft, obese, nontender. No rebound, no guarding. NEUROLOGIC: She is awake, alert, and able to communicate. LABORATORY DATA: WBC is 9.0, hemoglobin 10, hematocrit 33, platelets 276. PT 29.4, INR 2.72. Chemistry; sodium 140, potassium 3.5, chloride 90, CO2 of 36, BUN 23, creatinine 0.6, blood sugar of 255, troponin 0.272. ASSESSMENT: 1. Status post respiratory failure. 2. Pneumonia. 3. Left leg cellulitis. 4. Left big toe ulcer. 5. Severe peripheral vascular disease, status post angioplasty. 6. Pulmonary hypertension. 7. Congestive gastropathy. 8. 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 9. Chronic anemia. 10. Chronic obstructive pulmonary disease. PLAN: Currently, the patient is on nebulizer treatment, she is receiving Coumadin, she is therapeutic, she is under care of Dr. Hoffman for her left big toe ulcer, she is getting Diovan. She is on meropenem. We will followup her CBC, CMP, PT and INR in the a.m. Edwige Kirby MD
[2016-10-29] MEDS: oxyCODONE 10 mg Immediate Release Tab PO PRN ×2 (05:29→16:24)
[2016-10-29] MEDS: Pantoprazole 40 mg EC Tab PO SCH (06:09)
[2016-10-29] MEDS: Meropenem 1g/NS 100mL IVPB 1 GM/100 ML PIGGYBACK IVPB SCH ×3 (06:09→21:58)
[2016-10-29] MEDS: guaiFENesin 200 mg/10 ml Syrup UD PO PRN ×2 (06:13→16:24)
[2016-10-29 06:58] LABS: INR 2.72 (0.93-1.08); PROTHROMBIN TIME 29.4 Seconds (9.9-11.8)
[2016-10-29 07:06] LABS: BASO # 0.01 K/mm3 (0.0-2.0); BASO % 0.1 % (0.0-3.0); EOS # 0.4 (0.0-0.7); EOS % 5.2 % (1.5-5.0); GRAN # 6.13 (1.4-6.5); GRAN % 73.8 % (50.0-68.0); HEMOGLOBIN 9.8 g/dL (12.0-16.0); MEAN CELL VOLUME 90.1 fl (80.0-105.0); MEAN CORPUSCULAR HEMOGLOBIN 27.8 pg (25.0-35.0); MEAN CORPUSCULAR HGB CONC 30.8 g/dl (31.0-37.0); MEAN PLATELET VOLUME 9.4 fl (7.0-11.0); MONO # 0.7 (0.1-0.6); MONO % 8.9 % (1.0-6.0); PLATELET COUNT 295 10^3/uL (120.0-450.0); RBC 3.53 10^6/uL (3.5-6.1); RED CELL DISTRIBUTION WIDTH 17.4 % (11.5-14.5); WHITE BLOOD COUNT 8.3 10^3/ul (4.5-11.0)
[2016-10-29 07:14] LABS: ALB/GLOB RATIO 1.1 (1.1-1.8); ALBUMIN 3.4 g/dL (3.0-4.8); ALT/SGPT 24 U/L (7-56); AST/SGOT 25 U/L (15-39); BLOOD UREA NITROGEN 25 mg/dL (7-21); CALCIUM 9.3 mg/dL (8.4-10.5); GFR AFRICAN-AMERICAN > 60; GFR NON-AFRICAN AMERICAN > 60; MAGNESIUM 1.8 mg/dL (1.7-2.2)
--- NOTE | 2016-10-29 08:43 | CP.PCM.PN ---
Subjective - Date & Time of Evaluation Date of Evaluation: 10/29/16 Time of Evaluation: 08:25 - Subjective Subjective: Comfortable on a chair, more awake compared to yesterday, no fevers overnight. Objective - Vital Signs/Intake and Output Vital Signs (last 24 hours): Temp Pulse Resp BP Pulse Ox 97.9 F 100 H 27 H 149/74 100 10/29/16 04:00 10/29/16 04:00 10/29/16 04:00 10/29/16 04:00 10/29/16 04:00 Intake and Output: 10/28/16 10/29/16 18:59 06:59 Intake Total 1200 Output Total 700 Balance 500 - Medications Medications: Current Medications Acetaminophen (Tylenol 325mg Tab) 650 mg PO Q6H PRN PRN Reason: Fever >100.4 F Last Admin: 10/28/16 11:23 Dose: 650 mg Aspirin (Ecotrin) 81 mg PO 0800 [facility] Last Admin: 10/28/16 10:02 Dose: 81 mg Furosemide (Lasix) 40 mg PO DAILY [facility] Guaifenesin (Robitussin) 200 mg PO Q4H PRN PRN Reason: Cough and congestion Last Admin: 10/28/16 22:25 Dose: 200 mg Hydralazine HCl (Apresoline) 50 mg PO BID [facility] Last Admin: 10/21/16 18:32 Dose: Not Given Hydralazine HCl (Apresoline) 10 mg IVP Q6 PRN PRN Reason: give for SBP above 150 Last Admin: 10/26/16 14:41 Dose: 10 mg Meropenem 1g/NS 100mL IVPB (Meropenem 1g/Ns 100ml Ivpb) 1 gm in 100 mls @ 100 mls/hr IVPB Q8 [facility] PRN Reason: Protocol Last Admin: 10/28/16 22:00 Dose: 100 mls/hr Linezolid (Zyvox 600mg/300ml D5w) 600 mg in 300 mls @ 200 mls/hr IVPB Q12 [facility] PRN Reason: Protocol Last Admin: 10/28/16 22:01 Dose: 200 mls/hr Propofol (Diprivan) 1,000 mg in 100 mls @ 3.333 mls/hr IV .Q24H PRN; Protocol; 5 MCG/KG/MIN PRN Reason: TITRATE PER MD ORDER Last Admin: 10/27/16 10:31 Dose: 10 mcg/kg/min, 6.665 mls/hr Insulin Human Lispro (Humalog Med) 0 units SC ACHS [facility] PRN Reason: Protocol Last Admin: 10/28/16 23:28 Dose: Not Given Isosorbide Mononitrate (Imdur) 60 mg PO DAILY [facility] Last Admin: 10/21/16 09:54 Dose: Not Given Lactic Acid (Lac-Hydrin 12% Lotion (225 G)) 0 gm EXT BID [facility] Last Admin: 10/28/16 17:30 Dose: 1 applic Levalbuterol HCl (Xopenex) 1.25 mg IH [id number] PRN PRN Reason: Shortness of Breath Last Admin: 10/27/16 02:20 Dose: 1.25 mg Metoprolol Tartrate (Lopressor) 25 mg PO BID [facility] Last Admin: 10/28/16 17:29 Dose: 25 mg Mupirocin (Bactroban Ointment) 0 gm TOP BID [facility] Last Admin: 10/28/16 19:42 Dose: 1 applic Nicotine (Nicoderm Cq) 1 patch TD DAILY [facility] Last Admin: 10/28/16 12:10 Dose: 1 patch Nystatin/Triamcinolone Acetonide (Nystatin/Triamcinolone Cream) 0 ea TOP BID [facility] Last Admin: 10/28/16 17:31 Dose: 1 applic Oxycodone HCl (Oxycodone Immediate Release Tab) 10 mg PO Q6H PRN PRN Reason: Pain, severe (8-10) Last Admin: 10/29/16 05:29 Dose: 10 mg Pantoprazole Sodium (Protonix Ec Tab) 40 mg PO 0600 [facility] Risperidone (Risperdal Tab) 0.25 mg PO BID [facility] PRN Reason: Protocol Last Admin: 10/28/16 17:33 Dose: 0.25 mg Spironolactone (Aldactone) 25 mg PO DAILY [facility] Last Admin: 10/28/16 11:23 Dose: 25 mg Tiotropium [place] (Spiriva) 18 mcg IH DAILY [facility] Last Admin: 10/28/16 10:02 Dose: 18 mcg Valsartan (Diovan) 320 mg PO DAILY [facility] Last Admin: 10/28/16 14:19 Dose: 320 mg Warfarin Sodium (Coumadin) 2 mg PO 1800 [facility] PRN Reason: Protocol Last Admin: 10/28/16 17:28 Dose: 2 mg - Labs Labs: 10/28/16 05:50 10/28/16 05:50 PT 29.4 Seconds (9.9-11.8) H 10/28/16 05:50 INR 2.72 (0.93-1.08) H 10/28/16 05:50 APTT 39.9 Seconds (23.7-30.8) H 10/23/16 05:40 - Constitutional Appears: Non-toxic, No Acute Distress - Head Exam Head Exam: NORMAL INSPECTION - Neck Exam Neck Exam: absent: Meningismus - Respiratory Exam Respiratory Exam: Decreased Breath Sounds - Cardiovascular Exam Cardiovascular Exam: +S1, +S2 - GI/Abdominal Exam GI & Abdominal Exam: Soft. absent: Tenderness Assessment and Plan - Assessment and Plan (Free Text) Plan: Assessment sepsis from UTI, and cellulitis of the left foot, slowly improving S/P Ventilator-dependent respiratory failure probably from pulmonary edema hypoventilation R/O aspiration pneumonia, healthcare-associated history of infected diabetic ulceration of the left hallux associated with trauma with probable peripheral vascular disease, growing MRSA - no evidence of osteomyelitis on MRI - S/P arthrectomy and angioplasty of left sided lower extremity vasculature S/P Sepsis with acute hypoxic respiratory failure secondary to left-sided healthcare-associated pneumonia with possible gram positive cocci and/or gram negative bacilli, clinically improved and S/P treatment as well as sepsis from persistent methicillin-resistant coagulase negative staph bacteremia , probably port infection S/P removal of the port history of Group G Strep bacteremia history of E. coli UTI history of healthcare-associated pneumonia acute renal failure obesity with BMI 38 CAD GERD arthritis history of bilateral knee replacements chronic CHF COPD DM history of breast CA History of Strep bovis bacteremia (2012) S/P Port-a-cath placement Plan continue Zyvox and Merrem day 9; toe cx growing E. faecalis and Pseudomonas, urine growing Klebsiella; will target 7-10 days of therapy follow up Dr. Maldonado Barnett's evaluation of the patient's peripheral vascular disease will continue to follow clinically
[2016-10-29] MEDS: Ammonium Lactate 12% Lotion (225 g) EXT SCH ×2 (10:11→19:34)
[2016-10-29] MEDS: Nystatin-Triamcinolone Cream(30 gm) TOP SCH ×2 (10:12→16:35)
[2016-10-29] MEDS: Linezolid 600 mg in D5W 300 ml 600 MG/300 ML BAG IVPB SCH ×2 (10:19→21:58)
[2016-10-29] MEDS: Tiotropium 18 mcg Cap For Inhalation IH SCH (10:21)
--- NOTE | 2016-10-29 10:33 | CP.PCM.PN ---
<Khris Rowland - Last Filed: 10/29/16 14:13> Subjective - Date & Time of Evaluation Date of Evaluation: 10/29/16 Time of Evaluation: 13:50 - Subjective Subjective: 71 year old female patient seen at bedside for left hallux ulceration, leg erythema, and right digital ischemia. Pt is resting in arm chair, eating lunch under own ability, and breathing normally at time of visit. Pt's responses are prompt and patient is alert awake, and oriented. Pt denies recent f/c/cp/sob.n/ v. No new pedal complaints. Objective - Vital Signs/Intake and Output Vital Signs (last 24 hours): Temp Pulse Resp BP Pulse Ox 97.9 F 93 H 27 H 98/56 L 100 10/29/16 04:00 10/29/16 10:20 10/29/16 04:00 10/29/16 10:20 10/29/16 04:00 Intake and Output: 10/29/16 10/29/16 06:59 18:59 Intake Total 600 Output Total 700 Balance -100 - Medications Medications: Current Medications Acetaminophen (Tylenol 325mg Tab) 650 mg PO Q6H PRN PRN Reason: Fever >100.4 F Last Admin: 10/28/16 11:23 Dose: 650 mg Aspirin (Ecotrin) 81 mg PO 0800 [facility] Last Admin: 10/29/16 10:21 Dose: 81 mg Furosemide (Lasix) 40 mg PO DAILY [facility] Last Admin: 10/29/16 10:20 Dose: 40 mg Guaifenesin (Robitussin) 200 mg PO Q4H PRN PRN Reason: Cough and congestion Last Admin: 10/29/16 06:13 Dose: 200 mg Hydralazine HCl (Apresoline) 50 mg PO BID [facility] Last Admin: 10/21/16 18:32 Dose: Not Given Hydralazine HCl (Apresoline) 10 mg IVP Q6 PRN PRN Reason: give for SBP above 150 Last Admin: 10/26/16 14:41 Dose: 10 mg Meropenem 1g/NS 100mL IVPB (Meropenem 1g/Ns 100ml Ivpb) 1 gm in 100 mls @ 100 mls/hr IVPB Q8 [facility] PRN Reason: Protocol Last Admin: 10/29/16 06:09 Dose: 100 mls/hr Linezolid (Zyvox 600mg/300ml D5w) 600 mg in 300 mls @ 200 mls/hr IVPB Q12 [facility] PRN Reason: Protocol Last Admin: 10/29/16 10:19 Dose: 200 mls/hr Propofol (Diprivan) 1,000 mg in 100 mls @ 3.333 mls/hr IV .Q24H PRN; Protocol; 5 MCG/KG/MIN PRN Reason: TITRATE PER MD ORDER Last Admin: 10/27/16 10:31 Dose: 10 mcg/kg/min, 6.665 mls/hr Insulin Human Lispro (Humalog Med) 0 units SC ACHS [facility] PRN Reason: Protocol Last Admin: 10/28/16 23:28 Dose: Not Given Isosorbide Mononitrate (Imdur) 60 mg PO DAILY [facility] Last Admin: 10/21/16 09:54 Dose: Not Given Lactic Acid (Lac-Hydrin 12% Lotion (225 G)) 0 gm EXT BID [facility] Last Admin: 10/29/16 10:11 Dose: 1 applic Levalbuterol HCl (Xopenex) 1.25 mg IH [id number] PRN PRN Reason: Shortness of Breath Last Admin: 10/27/16 02:20 Dose: 1.25 mg Metoprolol Tartrate (Lopressor) 25 mg PO BID [facility] Last Admin: 10/29/16 10:20 Dose: 25 mg Mupirocin (Bactroban Ointment) 0 gm TOP BID [facility] Last Admin: 10/29/16 10:11 Dose: 1 applic Nicotine (Nicoderm Cq) 1 patch TD DAILY [facility] Last Admin: 10/28/16 12:10 Dose: 1 patch Nystatin/Triamcinolone Acetonide (Nystatin/Triamcinolone Cream) 0 ea TOP BID [facility] Last Admin: 10/29/16 10:12 Dose: 1 applic Oxycodone HCl (Oxycodone Immediate Release Tab) 10 mg PO Q6H PRN PRN Reason: Pain, severe (8-10) Last Admin: 10/29/16 05:29 Dose: 10 mg Pantoprazole Sodium (Protonix Ec Tab) 40 mg PO 0600 [facility] Last Admin: 10/29/16 06:09 Dose: 40 mg Risperidone (Risperdal Tab) 0.25 mg PO BID [facility] PRN Reason: Protocol Last Admin: 10/29/16 10:20 Dose: 0.25 mg Spironolactone (Aldactone) 25 mg PO DAILY [facility] Last Admin: 10/29/16 10:20 Dose: 25 mg Tiotropium [place] (Spiriva) 18 mcg IH DAILY [facility] Last Admin: 10/29/16 10:21 Dose: 18 mcg Valsartan (Diovan) 320 mg PO DAILY [facility] Last Admin: 10/29/16 10:20 Dose: 320 mg Warfarin Sodium (Coumadin) 2 mg PO 1800 [facility] PRN Reason: Protocol Last Admin: 10/28/16 17:28 Dose: 2 mg - Labs Labs: 10/29/16 06:00 10/29/16 06:00 PT 29.4 Seconds (9.9-11.8) H 10/29/16 06:00 INR 2.72 (0.93-1.08) H 10/29/16 06:00 APTT 39.9 Seconds (23.7-30.8) H 10/23/16 05:40 - Constitutional Appears: Non-toxic, No Acute Distress - Extremities Exam Additional comments: Lower extremity focused exam Vasc: DP and PT pulses non-palpable B/L secondary to edema. +1 pitting edema noted to left lower extremity. CFT < 4 seconds to digits 1-5 B/L. Derm: Left: Full thickness ulceration with necrotic central eschar noted to medial aspect of left hallux measuring approximately 4.1 cm x 3.5cm. Marita-wound margins absent maceration. Fibrotic wound border noted. No active drainage or exudate noted. No malodor, no fluctuance or other clinical signs of infection are noted at this time. Left lower leg blanchable erythema absent callor extending from supra-malleolar level to middle 1/3 of leg circumfrentially. Intensity markedly decreased and area of erythema static compared to marked perimeter. Right: Plantar distal tuft of hallux and 5th digit show ischemic changes, perfusion and skin tone within normal limits absent prior ischemic presentation. Neuro: Gross sensation diminished b/l Ortho: Mild tenderness noted on palpation of dorsal hallux - Neurological Exam Neurological Exam: Alert, Awake Assessment and Plan - Assessment and Plan (Free Text) Assessment: 71 year old female with 1) Left hallux ulceration secondary to DM and PVD. 2) Left lower leg vasculopathy 3) Right foot ischemia of 1st and 5th digits secondary to PVD, resolved. Plan: Pt seen and evaluated at bedside. Discussed with attending, Dr. Hoffman. Chart, labs and vitals reviewed; pt is afebrile, WBC WNL @ 8.3 Left hallux cleansed with sterile saline. Dressed with 4x4s and kerlix. Continue IV abx per ID. Pending pair of multipodus boots to be used bilaterally for heel offloading. Pending vascular consult. Podiatry will continue to follow patient while inhouse. <Nikia Hoffman - Last Filed: 11/02/16 19:56> Objective - Vital Signs/Intake and Output Vital Signs (last 24 hours): Temp Pulse Resp BP Pulse Ox 98 F 92 H 20 158/67 H 100 11/02/16 17:47 11/02/16 18:00 11/02/16 17:47 11/02/16 18:00 11/01/16 17:08 - Medications Medications: Current Medications Acetaminophen (Tylenol 325mg Tab) 650 mg PO Q6H PRN PRN Reason: Fever >100.4 F Last Admin: 11/02/16 16:47 Dose: 650 mg Aspirin (Ecotrin) 81 mg PO 0800 [facility] Last Admin: 11/02/16 08:41 Dose: 81 mg Furosemide (Lasix) 40 mg PO DAILY [facility] Last Admin: 11/02/16 10:29 Dose: 40 mg Guaifenesin (Robitussin) 200 mg PO Q4H PRN PRN Reason: Cough and congestion Last Admin: 11/01/16 14:45 Dose: 200 mg Hydralazine HCl (Apresoline) 50 mg PO BID [facility] Last Admin: 10/21/16 18:32 Dose: Not Given Hydralazine HCl (Apresoline) 10 mg IVP Q6 PRN PRN Reason: give for SBP above 150 Last Admin: 11/02/16 00:58 Dose: 10 mg Insulin Human Lispro (Humalog Med) 0 units SC ACHS [facility] PRN Reason: Protocol Last Admin: 11/02/16 18:01 Dose: 3 units Isosorbide Mononitrate (Imdur) 60 mg PO DAILY [facility] Last Admin: 10/21/16 09:54 Dose: Not Given Lactic Acid (Lac-Hydrin 12% Lotion (225 G)) 0 gm EXT BID [facility] Last Admin: 11/02/16 18:05 Dose: 1 applic Levalbuterol HCl (Xopenex) 1.25 mg IH [id number] PRN PRN Reason: Shortness of Breath Last Admin: 10/31/16 08:00 Dose: 1.25 mg Metoprolol Tartrate (Lopressor) 25 mg PO BID [facility] Last Admin: 11/02/16 18:00 Dose: 25 mg Mupirocin (Bactroban Ointment) 0 gm TOP BID [facility] Last Admin: 11/02/16 18:04 Dose: 1 applic Nicotine (Nicoderm Cq) 1 patch TD DAILY [facility] Last Admin: 11/02/16 10:30 Dose: 1 patch Nystatin/Triamcinolone Acetonide (Nystatin/Triamcinolone Cream) 0 ea TOP BID [facility] Last Admin: 11/02/16 18:07 Dose: 1 applic Pantoprazole Sodium (Protonix Ec Tab) 40 mg PO 0600 [facility] Last Admin: 11/02/16 08:40 Dose: 40 mg Risperidone (Risperdal Tab) 0.25 mg PO BID [facility] PRN Reason: Protocol Last Admin: 11/02/16 18:00 Dose: 0.25 mg Spironolactone (Aldactone) 25 mg PO DAILY [facility] Last Admin: 11/02/16 10:29 Dose: 25 mg Tiotropium [place] (Spiriva) 18 mcg IH DAILY [facility] Last Admin: 11/02/16 10:31 Dose: 18 mcg Valsartan (Diovan) 320 mg PO DAILY [facility] Last Admin: 11/02/16 10:30 Dose: 320 mg Warfarin Sodium (Coumadin) 4 mg PO 1800 [facility] PRN Reason: Protocol Last Admin: 11/02/16 18:00 Dose: 4 mg - Labs Labs: 11/01/16 05:33 11/01/16 05:33 PT 20.0 Seconds (9.9-11.8) H 11/01/16 05:33 INR 1.85 (0.93-1.08) H 11/01/16 05:33 APTT 39.9 Seconds (23.7-30.8) H 10/23/16 05:40 Attending/Attestation - Attestation I have personally seen and examined this patient.: Yes I have fully participated in the care of the patient.: Yes I have reviewed all pertinent clinical information, including history, physical exam and plan: Yes
[2016-10-29] MEDS: Insulin Lispro (humaLOG) MEDIUM Coverage SC SCH ×4 (11:30→22:46)
--- NOTE | 2016-10-29 13:58 | PN ---
DATE: 10/29/2016 SUBJECTIVE: The patient is seen sitting in chair, but she is awake, she is alert. She is groggy. PHYSICAL EXAMINATION: GENERAL: Obese, elderly lady sitting in chair. VITAL SIGNS: Blood pressure 98/56, heart rate 93, respiratory rate 27, temperature 97.9. HEENT: Normocephalic, atraumatic. Positive pallor. NECK: Supple. No JVD. LUNGS: Bilateral rhonchi, distant breath sounds, equal air entry. HEART: S1 and S2. Regular rate and rhythm. No murmur, no rub. ABDOMEN: Obese, distended, soft, nontender. Bowel sounds present. EXTREMITIES: Erythema of the left lower extremity, dressing of the left foot. INTAKE AND OUTPUT: 1250/3300. LABORATORY DATA: WBC 8.3, hemoglobin 9.8, hematocrit is 32, platelet 295. Sodium 137, potassium 4.1, chloride 90, CO2 40. BUN 25, creatinine 0.8, glucose 143, calcium 9.3, phosphorus 3.0, magnesium 1.8, albumin 3.4. Urine culture Klebsiella. Blood culture, no growth. CURRENT MEDICATIONS: Aldactone 25 mg daily, Coumadin, Diovan 320, Diprivan, Ecotrin, insulin, Imdur, Lasix 40 mg p.o. daily, Lopressor 25 mg b.i.d., Protonix, Risperdal, Robitussin, Spiriva, Xopenex, Zyvox. ASSESSMENT: 1. Resolved acute kidney injury. 2. Resolved sepsis. 3. Lower extremity cellulitis. 4. Chronic obstructive pulmonary disease. 5. Total body volume overload, responding to Lasix. 6. Alkalemia secondary to diuresis. 7. Resolved hypokalemia. PLAN: 1. Agree with changing Lasix to 40 mg p.o. daily. 2. Continue Aldactone 25 mg daily. 3. Continue Diovan. 4. Monitor potassium and creatinine closely. 5. Antibiotic asper ID recommendations 6. Physical therapy. Naomi Hinojosa MD
--- NOTE | 2016-10-29 15:21 | PN ---
SUBJECTIVE: The patient is 71 years old, seen and examined, sleepy but arousable. Not in any acute distress. PHYSICAL EXAMINATION VITAL SIGNS: She is afebrile. Pulse 93, respirations 27, blood pressure 98/56. LUNGS: Bilaterally diffusely decreased breath sounds. Some bilateral rhonchi. HEART: S1 and S2 audible with systolic murmur, because of aortic insufficiency. NEUROLOGIC: She is sleepy but arousable. EXTREMITIES: Bilateral legs; she has +2 edema, left more than right. Left foot big toe ulcer and erythema. She also has bluish discoloration, also at right fifth toe and big toe. LABORATORY EXAM: WBC is 8.3, hemoglobin 9.8, hematocrit 31.8, platelets 295. PT 29.4, INR 2.72. Chemistries: Sodium 137, potassium 4.1, chloride 90, CO2 of 40, BUN 25, creatinine 0.8, blood sugar 337. Troponin is 0.72. ASSESSMENT: 1. Respiratory failure, status post extubation. 2. Coronary artery disease, status post cardiac catheterization showing right coronary artery complete occlusion with collateral. 3. Escherichia coli urinary tract infection. 4. Renal failure improving. 5. Peptic ulcer disease. 6. Congestive gastropathy. 7. Pulmonary hypertension. 8. Borderline hypertension. 9. History of carcinoma of breast. PLAN: Currently, the patient is on Zyvox and meropenem, took for Klebsiella. We will monitor the blood sugar. Analgesic as needed. Revaluate the patient. Edwige Kirby MD
--- NOTE | 2016-10-29 17:55 | PN ---
DATE: 10/29/2016 REASON FOR CONSULTATION: Followup cardiac evaluation, coronary artery disease one vessel, status post respiratory failure is successfully extubated. SUBJECTIVE: The patient denies any chest pain or shortness of breath or any palpitations. OBJECTIVE: GENERAL: Lying comfortable. Awake and alert. VITAL SIGNS: Temperature afebrile, heart rate 93, and blood pressure 149/74. HEENT: PERRLA. Extraocular muscles intact. NECK: Supple. No carotid bruit or thyromegaly. CHEST: Clear to auscultation. HEART: S1 and S2 regular. ABDOMEN: Soft. EXTREMITIES: Clubbing and cyanosis negative. LABORATORY DATA: Blood workup as follows: WBC 8.3, hemoglobin 9.8, hematocrit 31.8, and platelet count 295. Chemistry shows sodium 137, potassium 4.0, chloride 90, carbon dioxide 40, anion gap of 20, BUN 25, and creatinine 0.9. IMPRESSION: A 71-year-old morbidly obese female with past medical history significant for chronic atrial fibrillation, mitral and tricuspid regurgitation, moderate aortic stenosis, valve area 1 cm2, one-vessel coronary artery disease, right coronary artery totally occluded, well collateralized from left anterior descending, admitted with sepsis, treated and will be discharged and transferred to medical floor with rapid response, intubated and now successfully extubated. The patient's borderline troponin is 0.72 probable secondary to demand and supply mismatch, no further evaluation of the troponin noted. RECOMMENDATION: Continue aggressively treatment for COPD with broad-spectrum antibiotics. Continue spironolactone. Continue aspirin. Continue Valsartan. Continue Imdur 60 mg. Monitor electrolytes. Continue Lasix. Continue metoprolol 25 mg b.i.d. Restarted Coumadin yesterday, is a 2.72 today INR, we will continue 2 mg of Coumadin. We will follow the labs in the morning. Resume the patient antibiotics as well as close monitor of PT INR because 2 mg can over shoot. We will follow with you. Repeat the lab in the morning. We will repeat the troponin in morning. Thank you Dr. Kirby for the opportunity in taking care of the patient. Brianna Sandra MD
[2016-10-29] MEDS: Levalbuterol 1.25 MG/3 ML Inhal Soln UD IH PRN (20:11)
[2016-10-30] MEDS: Meropenem 1g/NS 100mL IVPB 1 GM/100 ML PIGGYBACK IVPB SCH ×3 (05:46→22:08)
[2016-10-30] MEDS: Pantoprazole 40 mg EC Tab PO SCH (05:46)
[2016-10-30 06:45] LABS: BASO # 0.02 K/mm3 (0.0-2.0); BASO % 0.2 % (0.0-3.0); EOS # 0.5 (0.0-0.7); EOS % 4.9 % (1.5-5.0); GRAN # 6.84 (1.4-6.5); GRAN % 75.2 % (50.0-68.0); HEMOGLOBIN 10.2 g/dL (12.0-16.0); LYMPH # 1.1 (1.2-3.4); LYMPH % 11.8 % (22.0-35.0); MEAN CELL VOLUME 90.5 fl (80.0-105.0); MEAN CORPUSCULAR HEMOGLOBIN 27.6 pg (25.0-35.0); MEAN CORPUSCULAR HGB CONC 30.4 g/dl (31.0-37.0); MEAN PLATELET VOLUME 9.3 fl (7.0-11.0); MONO # 0.7 (0.1-0.6); MONO % 7.9 % (1.0-6.0); PLATELET COUNT 284 10^3/uL (120.0-450.0); RED CELL DISTRIBUTION WIDTH 17.3 % (11.5-14.5); WHITE BLOOD COUNT 9.1 10^3/ul (4.5-11.0)
[2016-10-30 06:47] LABS: INR 2.47 (0.93-1.08); PROTHROMBIN TIME 26.7 Seconds (9.9-11.8)
[2016-10-30 07:03] LABS: ALB/GLOB RATIO 1.2 (1.1-1.8); ALBUMIN 3.6 g/dL (3.0-4.8); ALT/SGPT 24 U/L (7-56); AST/SGOT 18 U/L (15-39); BLOOD UREA NITROGEN 28 mg/dL (7-21); CALCIUM 9.6 mg/dL (8.4-10.5); GFR AFRICAN-AMERICAN > 60; GFR NON-AFRICAN AMERICAN > 60; MAGNESIUM 1.8 mg/dL (1.7-2.2)
[2016-10-30] MEDS: Levalbuterol 1.25 MG/3 ML Inhal Soln UD IH PRN ×2 (07:22→13:43)
[2016-10-30 07:23] LABS: TROPONIN I 0.26 ng/mL
[2016-10-30] MEDS: oxyCODONE 10 mg Immediate Release Tab PO PRN (08:51)
[2016-10-30] MEDS: Linezolid 600 mg in D5W 300 ml 600 MG/300 ML BAG IVPB SCH ×3 (08:53→22:08)
[2016-10-30] MEDS: Nystatin-Triamcinolone Cream(30 gm) TOP SCH ×2 (09:12→18:11)
[2016-10-30] MEDS: Insulin Lispro (humaLOG) MEDIUM Coverage SC SCH ×4 (09:18→22:13)
[2016-10-30] MEDS: Ammonium Lactate 12% Lotion (225 g) EXT SCH ×2 (09:53→18:11)
[2016-10-30] MEDS: guaiFENesin 200 mg/10 ml Syrup UD PO PRN ×2 (10:08→18:20)
--- NOTE | 2016-10-30 11:10 | CP.PCM.PN ---
<Sp Wayne - Last Filed: 10/30/16 11:06> Subjective - Date & Time of Evaluation Date of Evaluation: 10/30/16 Time of Evaluation: 10:07 - Subjective Subjective: 71 year old female patient seen at bedside for left hallux ulceration, leg erythema. Pt is resting comfortably in bed, eating breakfast under own ability, and breathing normally at time of visit. Pt's responses are prompt and patient is alert awake, and oriented. Pt denies recent f/c/cp/sob.n/v. No new pedal complaints. Objective - Vital Signs/Intake and Output Vital Signs (last 24 hours): Temp Pulse Resp BP Pulse Ox 98.1 F 89 23 144/61 100 10/30/16 08:00 10/30/16 10:57 10/30/16 10:00 10/30/16 10:00 10/30/16 10:00 - Medications Medications: Current Medications Acetaminophen (Tylenol 325mg Tab) 650 mg PO Q6H PRN PRN Reason: Fever >100.4 F Last Admin: 10/28/16 11:23 Dose: 650 mg Aspirin (Ecotrin) 81 mg PO 0800 [facility] Last Admin: 10/30/16 08:50 Dose: 81 mg Furosemide (Lasix) 40 mg PO DAILY [facility] Last Admin: 10/30/16 09:53 Dose: Not Given Guaifenesin (Robitussin) 200 mg PO Q4H PRN PRN Reason: Cough and congestion Last Admin: 10/30/16 10:08 Dose: 200 mg Hydralazine HCl (Apresoline) 50 mg PO BID [facility] Last Admin: 10/21/16 18:32 Dose: Not Given Hydralazine HCl (Apresoline) 10 mg IVP Q6 PRN PRN Reason: give for SBP above 150 Last Admin: 10/26/16 14:41 Dose: 10 mg Meropenem 1g/NS 100mL IVPB (Meropenem 1g/Ns 100ml Ivpb) 1 gm in 100 mls @ 100 mls/hr IVPB Q8 [facility] PRN Reason: Protocol Last Admin: 10/30/16 05:46 Dose: 100 mls/hr Linezolid (Zyvox 600mg/300ml D5w) 600 mg in 300 mls @ 200 mls/hr IVPB Q12 [facility] PRN Reason: Protocol Last Admin: 10/30/16 08:53 Dose: 200 mls/hr Propofol (Diprivan) 1,000 mg in 100 mls @ 3.333 mls/hr IV .Q24H PRN; Protocol; 5 MCG/KG/MIN PRN Reason: TITRATE PER MD ORDER Last Admin: 10/27/16 10:31 Dose: 10 mcg/kg/min, 6.665 mls/hr Insulin Human Lispro (Humalog Med) 0 units SC ACHS [facility] PRN Reason: Protocol Last Admin: 10/30/16 09:18 Dose: 1 units Isosorbide Mononitrate (Imdur) 60 mg PO DAILY [facility] Last Admin: 10/21/16 09:54 Dose: Not Given Lactic Acid (Lac-Hydrin 12% Lotion (225 G)) 0 gm EXT BID [facility] Last Admin: 10/30/16 09:53 Dose: 1 applic Levalbuterol HCl (Xopenex) 1.25 mg IH [id number] PRN PRN Reason: Shortness of Breath Last Admin: 10/30/16 07:22 Dose: 1.25 mg Metoprolol Tartrate (Lopressor) 25 mg PO BID [facility] Last Admin: 10/30/16 09:53 Dose: Not Given Mupirocin (Bactroban Ointment) 0 gm TOP BID [facility] Last Admin: 10/30/16 10:07 Dose: 1 applic Nicotine (Nicoderm Cq) 1 patch TD DAILY [facility] Last Admin: 10/30/16 08:51 Dose: 1 patch Nystatin/Triamcinolone Acetonide (Nystatin/Triamcinolone Cream) 0 ea TOP BID [facility] Last Admin: 10/30/16 09:12 Dose: 1 applic Oxycodone HCl (Oxycodone Immediate Release Tab) 10 mg PO Q6H PRN PRN Reason: Pain, severe (8-10) Last Admin: 10/30/16 08:51 Dose: 10 mg Pantoprazole Sodium (Protonix Ec Tab) 40 mg PO 0600 [facility] Last Admin: 10/30/16 05:46 Dose: 40 mg Risperidone (Risperdal Tab) 0.25 mg PO BID [facility] PRN Reason: Protocol Last Admin: 10/30/16 08:50 Dose: 0.25 mg Spironolactone (Aldactone) 25 mg PO DAILY [facility] Last Admin: 10/30/16 09:52 Dose: Not Given Tiotropium Edson (Spiriva) 18 mcg IH DAILY [facility] Last Admin: 10/29/16 10:21 Dose: 18 mcg Valsartan (Diovan) 320 mg PO DAILY [facility] Last Admin: 10/30/16 09:53 Dose: Not Given Warfarin Sodium (Coumadin) 2 mg PO 1800 [facility] PRN Reason: Protocol Last Admin: 10/29/16 17:54 Dose: 2 mg - Labs Labs: 10/30/16 05:30 10/30/16 05:30 PT 26.7 Seconds (9.9-11.8) H 10/30/16 05:30 INR 2.47 (0.93-1.08) H 10/30/16 05:30 APTT 39.9 Seconds (23.7-30.8) H 10/23/16 05:40 - Constitutional Appears: Well, Non-toxic, No Acute Distress - Extremities Exam Additional comments: Lower extremity focused exam Vasc: DP and PT pulses non-palpable B/L secondary to edema. +1 pitting edema noted to left lower extremity. CFT < 4 seconds to digits 1-5 B/L. Derm: Left: Full thickness ulceration with necrotic central eschar noted to medial aspect of left hallux measuring approximately 4.1 cm x 3.5cm. Marita-wound margins absent maceration. Fibrotic wound border noted. Minimal serous drainage noted at this time. No malodor, no fluctuance or other clinical signs of infection are noted at this time. Left lower leg blanchable erythema absent callor extending from supra-malleolar level to middle 1/3 of leg circumfrentially. Intensity markedly decreased and area of erythema static compared to marked perimeter. Right: Ischemic changes seen on 10/29/16 are resolved at this time Neuro: Gross sensation diminished b/l Ortho: Mild tenderness noted on palpation of dorsal hallux - Neurological Exam Neurological Exam: Alert, Awake, Oriented x3 - Psychiatric Exam Psychiatric exam: Normal Affect, Normal Mood Assessment and Plan - Assessment and Plan (Free Text) Assessment: 71 year old female with 1) Left hallux ulceration secondary to DM and PVD. 2) Left lower leg vasculopathy Plan: Pt seen and evaluated at bedside. Discussed with attending, Dr. Hoffman. Chart, labs and vitals reviewed; pt is afebrile, WBC WNL @ 9.1 Left hallux ulceration painted with betadine. Dressed with 4x4s and kerlix. Order placed for MRI and ESR Continue IV abx per ID. Pending pair of multipodus boots to be used bilaterally for heel offloading. Pending vascular consult. Podiatry will continue to follow patient while inhouse. <Nikia Hoffman - Last Filed: 11/02/16 19:56> Objective - Vital Signs/Intake and Output Vital Signs (last 24 hours): Temp Pulse Resp BP Pulse Ox 98 F 92 H 20 158/67 H 100 11/02/16 17:47 11/02/16 18:00 11/02/16 17:47 11/02/16 18:00 11/01/16 17:08 - Medications Medications: Current Medications Acetaminophen (Tylenol 325mg Tab) 650 mg PO Q6H PRN PRN Reason: Fever >100.4 F Last Admin: 11/02/16 16:47 Dose: 650 mg Aspirin (Ecotrin) 81 mg PO 0800 [facility] Last Admin: 11/02/16 08:41 Dose: 81 mg Furosemide (Lasix) 40 mg PO DAILY [facility] Last Admin: 11/02/16 10:29 Dose: 40 mg Guaifenesin (Robitussin) 200 mg PO Q4H PRN PRN Reason: Cough and congestion Last Admin: 11/01/16 14:45 Dose: 200 mg Hydralazine HCl (Apresoline) 50 mg PO BID [facility] Last Admin: 10/21/16 18:32 Dose: Not Given Hydralazine HCl (Apresoline) 10 mg IVP Q6 PRN PRN Reason: give for SBP above 150 Last Admin: 11/02/16 00:58 Dose: 10 mg Insulin Human Lispro (Humalog Med) 0 units SC ACHS [facility] PRN Reason: Protocol Last Admin: 11/02/16 18:01 Dose: 3 units Isosorbide Mononitrate (Imdur) 60 mg PO DAILY [facility] Last Admin: 10/21/16 09:54 Dose: Not Given Lactic Acid (Lac-Hydrin 12% Lotion (225 G)) 0 gm EXT BID [facility] Last Admin: 11/02/16 18:05 Dose: 1 applic Levalbuterol HCl (Xopenex) 1.25 mg IH [id number] PRN PRN Reason: Shortness of Breath Last Admin: 10/31/16 08:00 Dose: 1.25 mg Metoprolol Tartrate (Lopressor) 25 mg PO BID [facility] Last Admin: 11/02/16 18:00 Dose: 25 mg Mupirocin (Bactroban Ointment) 0 gm TOP BID [facility] Last Admin: 11/02/16 18:04 Dose: 1 applic Nicotine (Nicoderm Cq) 1 patch TD DAILY [facility] Last Admin: 11/02/16 10:30 Dose: 1 patch Nystatin/Triamcinolone Acetonide (Nystatin/Triamcinolone Cream) 0 ea TOP BID [facility] Last Admin: 11/02/16 18:07 Dose: 1 applic Pantoprazole Sodium (Protonix Ec Tab) 40 mg PO 0600 [facility] Last Admin: 11/02/16 08:40 Dose: 40 mg Risperidone (Risperdal Tab) 0.25 mg PO BID [facility] PRN Reason: Protocol Last Admin: 11/02/16 18:00 Dose: 0.25 mg Spironolactone (Aldactone) 25 mg PO DAILY [facility] Last Admin: 11/02/16 10:29 Dose: 25 mg Tiotropium Eds[place] (Spiriva) 18 mcg IH DAILY [facility] Last Admin: 11/02/16 10:31 Dose: 18 mcg Valsartan (Diovan) 320 mg PO DAILY [facility] Last Admin: 11/02/16 10:30 Dose: 320 mg Warfarin Sodium (Coumadin) 4 mg PO 1800 [facility] PRN Reason: Protocol Last Admin: 11/02/16 18:00 Dose: 4 mg - Labs Labs: 11/01/16 05:33 11/01/16 05:33 PT 20.0 Seconds (9.9-11.8) H 11/01/16 05:33 INR 1.85 (0.93-1.08) H 11/01/16 05:33 APTT 39.9 Seconds (23.7-30.8) H 10/23/16 05:40 Attending/Attestation - Attestation I have personally seen and examined this patient.: Yes I have fully participated in the care of the patient.: Yes I have reviewed all pertinent clinical information, including history, physical exam and plan: Yes
--- NOTE | 2016-10-30 15:02 | PN ---
DATE: 10/30/2016 SUBJECTIVE: The patient is seen, sitting in chair. She is awake. She is alert. She denies any shortness of breath. She denies any pain at present. PHYSICAL EXAMINATION: GENERAL: Morbidly obese, elderly lady, sitting in bed. VITAL SIGNS: Blood pressure 144/61, heart rate 95, respiratory rate 23, temperature 98.1. HEENT: Normocephalic and atraumatic. Positive pallor. NECK: Supple. No JVD. LUNGS: Bilateral rhonchi, distant breath sounds, no rales appreciated. CARDIAC: S1 and S2, regular rate and rhythm, no murmur, no rub. ABDOMEN: Obese, distended, soft, nontender. Bowel sounds present. EXTREMITIES: 1+ pitting edema upper lower extremity, erythema of the left lower extremity, dressing of the left great toe. INTAKE AND OUTPUT: 1300/300. LABORATORY DATA: WBC 9, hemoglobin 10, hematocrit 34, platelets 284. Sodium 137, potassium 4.8, chloride 91, CO2 of 39, BUN 28, creatinine 0.7, glucose 192, calcium 9.6, phosphorous 3.1, magnesium 1.8, AST 18, ALT 24, CPK 22, troponin 0.2, albumin 3.6. CURRENT MEDICATIONS: Aldactone 25 mg not given, hydralazine 10 mg IV push q. 6 hours, Coumadin 2 mg, Diovan 320 mg not given, Propofol, Imdur 60 mg, Lasix 40 mg daily, Lopressor 25 mg b.i.d., meropenem 1 g q. 8 hours, Nystatin, Percocet, Protonix, Risperdal, Robitussin, Spiriva, Tylenol, Xopenex, Zyvox 600 mg q. 12 hours. ASSESSMENT AND PLAN: 1. Resolved acute kidney injury. 2. Resolved sepsis. 3. Lower extremity cellulitis. 4. Morbid obesity. 5. Chronic obstructive pulmonary disease, active smoking. 6. History of carcinoma of breast. PLAN: 1. Continue antibiotics as per ID recommendations. 2. Avoid nephrotoxins. 3. Continue Lasix and Aldactone. 4. Physical therapy. 5. Continue respiratory treatments. Naomi Hinojosa MD
--- NOTE | 2016-10-30 15:28 | CP.PCM.PN ---
Subjective - Date & Time of Evaluation Date of Evaluation: 10/30/16 Time of Evaluation: 08:45 - Subjective Subjective: Comfortable on a chair, no fevers, improved pain in the left leg, breathing better. Objective - Vital Signs/Intake and Output Vital Signs (last 24 hours): Temp Pulse Resp BP Pulse Ox 98.2 F 78 23 135/53 L 100 10/30/16 04:00 10/30/16 04:03 10/30/16 04:03 10/30/16 04:03 10/30/16 04:03 Intake and Output: 10/29/16 10/30/16 18:59 06:59 Intake Total 1300 Output Total 300 Balance 1000 - Medications Medications: Current Medications Acetaminophen (Tylenol 325mg Tab) 650 mg PO Q6H PRN PRN Reason: Fever >100.4 F Last Admin: 10/28/16 11:23 Dose: 650 mg Aspirin (Ecotrin) 81 mg PO 0800 [facility] Last Admin: 10/29/16 10:21 Dose: 81 mg Furosemide (Lasix) 40 mg PO DAILY [facility] Last Admin: 10/29/16 10:20 Dose: 40 mg Guaifenesin (Robitussin) 200 mg PO Q4H PRN PRN Reason: Cough and congestion Last Admin: 10/29/16 16:24 Dose: 200 mg Hydralazine HCl (Apresoline) 50 mg PO BID [facility] Last Admin: 10/21/16 18:32 Dose: Not Given Hydralazine HCl (Apresoline) 10 mg IVP Q6 PRN PRN Reason: give for SBP above 150 Last Admin: 10/26/16 14:41 Dose: 10 mg Meropenem 1g/NS 100mL IVPB (Meropenem 1g/Ns 100ml Ivpb) 1 gm in 100 mls @ 100 mls/hr IVPB Q8 [facility] PRN Reason: Protocol Last Admin: 10/30/16 05:46 Dose: 100 mls/hr Linezolid (Zyvox 600mg/300ml D5w) 600 mg in 300 mls @ 200 mls/hr IVPB Q12 [facility] PRN Reason: Protocol Last Admin: 10/29/16 21:58 Dose: 200 mls/hr Propofol (Diprivan) 1,000 mg in 100 mls @ 3.333 mls/hr IV .Q24H PRN; Protocol; 5 MCG/KG/MIN PRN Reason: TITRATE PER MD ORDER Last Admin: 10/27/16 10:31 Dose: 10 mcg/kg/min, 6.665 mls/hr Insulin Human Lispro (Humalog Med) 0 units SC ACHS [facility] PRN Reason: Protocol Last Admin: 10/29/16 22:46 Dose: Not Given Isosorbide Mononitrate (Imdur) 60 mg PO DAILY [facility] Last Admin: 10/21/16 09:54 Dose: Not Given Lactic Acid (Lac-Hydrin 12% Lotion (225 G)) 0 gm EXT BID [facility] Last Admin: 10/29/16 19:34 Dose: 1 applic Levalbuterol HCl (Xopenex) 1.25 mg IH [id number] PRN PRN Reason: Shortness of Breath Last Admin: 10/29/16 20:11 Dose: 1.25 mg Metoprolol Tartrate (Lopressor) 25 mg PO BID [facility] Last Admin: 10/29/16 17:43 Dose: 25 mg Mupirocin (Bactroban Ointment) 0 gm TOP BID [facility] Last Admin: 10/29/16 19:35 Dose: 1 applic Nicotine (Nicoderm Cq) 1 patch TD DAILY [facility] Last Admin: 10/29/16 16:24 Dose: 1 patch Nystatin/Triamcinolone Acetonide (Nystatin/Triamcinolone Cream) 0 ea TOP BID [facility] Last Admin: 10/29/16 16:35 Dose: 1 applic Oxycodone HCl (Oxycodone Immediate Release Tab) 10 mg PO Q6H PRN PRN Reason: Pain, severe (8-10) Last Admin: 10/29/16 16:24 Dose: 10 mg Pantoprazole Sodium (Protonix Ec Tab) 40 mg PO 0600 [facility] Last Admin: 10/30/16 05:46 Dose: 40 mg Risperidone (Risperdal Tab) 0.25 mg PO BID [facility] PRN Reason: Protocol Last Admin: 10/29/16 19:32 Dose: 0.25 mg Spironolactone (Aldactone) 25 mg PO DAILY [facility] Last Admin: 10/29/16 10:20 Dose: 25 mg Tiotropium [place] (Spiriva) 18 mcg IH DAILY [facility] Last Admin: 10/29/16 10:21 Dose: 18 mcg Valsartan (Diovan) 320 mg PO DAILY [facility] Last Admin: 10/29/16 10:20 Dose: 320 mg Warfarin Sodium (Coumadin) 2 mg PO 1800 [facility] PRN Reason: Protocol Last Admin: 10/29/16 17:54 Dose: 2 mg - Labs Labs: 10/29/16 06:00 10/29/16 06:00 PT 29.4 Seconds (9.9-11.8) H 10/29/16 06:00 INR 2.72 (0.93-1.08) H 10/29/16 06:00 APTT 39.9 Seconds (23.7-30.8) H 10/23/16 05:40 - Constitutional Appears: Non-toxic, No Acute Distress - Head Exam Head Exam: NORMAL INSPECTION - ENT Exam ENT Exam: Mucous Membranes Moist - Neck Exam Neck Exam: absent: Lymphadenopathy, Meningismus - Respiratory Exam Respiratory Exam: Decreased Breath Sounds - Cardiovascular Exam Cardiovascular Exam: +S1, +S2 - GI/Abdominal Exam GI & Abdominal Exam: Soft. absent: Tenderness Assessment and Plan - Assessment and Plan (Free Text) Plan: Assessment sepsis from UTI, and cellulitis of the left foot, clinically improving S/P Ventilator-dependent respiratory failure probably from pulmonary edema hypoventilation R/O aspiration pneumonia, healthcare-associated history of infected diabetic ulceration of the left hallux associated with trauma with probable peripheral vascular disease, growing MRSA - no evidence of osteomyelitis on MRI - S/P arthrectomy and angioplasty of left sided lower extremity vasculature S/P Sepsis with acute hypoxic respiratory failure secondary to left-sided healthcare-associated pneumonia with possible gram positive cocci and/or gram negative bacilli, clinically improved and S/P treatment as well as sepsis from persistent methicillin-resistant coagulase negative staph bacteremia , probably port infection S/P removal of the port history of Group G Strep bacteremia history of E. coli UTI history of healthcare-associated pneumonia acute renal failure obesity with BMI 38 CAD GERD arthritis history of bilateral knee replacements chronic CHF COPD DM history of breast CA History of Strep bovis bacteremia (2012) S/P Port-a-cath placement Plan continue Zyvox and Merrem day 10; toe cx growing E. faecalis and Pseudomonas, urine growing Klebsiella; will target 7-10 days of therapy - will d/c antibiotics after today will continue to follow clinically
--- NOTE | 2016-10-30 20:37 | PN ---
DATE: 10/30/2016 REASON FOR CONSULTATION: Followup cardiac evaluation of coronary artery disease of one vessel, status post respiratory failure, status post extubated. SUBJECTIVE: The patient is awake and alert. Denies any chest pain, shortness of breath, or any palpitation. OBJECTIVE: GENERAL: Not in apparent distress, lying flat. VITAL SIGNS: As follows: Temperature afebrile, heart rate 80, and blood pressure 105/59. HEENT: PERRLA. Extraocular muscles are intact. NECK: Supple. No carotid bruits or thyromegaly. CHEST: Clear to auscultation. HEART: S1 and S2 regular. ABDOMEN: Soft. EXTREMITIES: Clubbing and cyanosis negative. LABORATORY DATA: Blood workup as follows: WBC 9.8, hemoglobin 10.8, hematocrit 33.5, and platelet count 284. Chemistry shows sodium 137, potassium 4.8, chloride 91, carbon dioxide 39, anion gap of 12, BUN 28, and creatinine 0.7. Troponin is 0.26. IMPRESSION: A 71-year-old female with a past medical history significant for chronic atrial fibrillation, moderate aortic stenosis, one vessel coronary artery disease, admitted with sepsis, status post intubated, acute kidney injury, and morbid obesity, status post respiratory failure, intubated on oxygen and now the patient successfully extubated, history of chronic atrial fibrillation on Coumadin, supratherapeutic INR on admission. History of moderate stenosis with valve area of 1 cm2. The patient's borderline troponin was 0.72, now it is trending down. A history of cardiac catheterization 2-1/2 years ago, one vessel coronary artery disease, right coronary artery totally occluded, well collateralized from left anterior descending, and positive troponin possibly secondary to demand and supply mismatch. RECOMMENDATIONS: Follow up troponin. If the troponin is trending down will have medical treatment. If the troponin trends up the patient can consider cardiac catheterization, but since the troponin is trending down and the patient is asymptomatic, no plan for cardiac catheterization. Continue medical treatment. We started yesterday Coumadin, INR is 2.47, continue 2 mg of Coumadin. Continue hydralazine and avoid nephrotoxic medication. Continue gentle Lasix. Repeat the blood workup in the morning. Continue beta-[place] 25 mg metoprolol tartrate twice. Okay to transfer to telemetry. We will follow with you. Thank you Dr. Kirby for the opportunity in taking care of your patient, Esther Baxter. Brianna Sandra MD
--- NOTE | 2016-10-30 20:59 | PN ---
DATE: SUBJECTIVE: The patient is 71-year-old, seen and examined, sitting in the chair. No chest pain. No shortness of breath. No nausea, vomiting or diarrhea. PHYSICAL EXAMINATION: VITAL SIGNS: The patient is afebrile, pulse 81, respirations 19 and blood pressure 118/52. LUNGS: Bilateral good air flow. Diffusely decreased breath sounds. EXTREMITIES: Bilateral legs, +2 edema, left banks has erythema. Warm to touch. Her left big toe has ulcer. LABORATORY DATA: WBC 9.1, hemoglobin 10.2, hematocrit 33.5 and platelets 284. PT 26.7, INR 2.47. Chemistries; sodium 137, potassium 4.8, chloride 91, CO2 is 39, BUN 28, creatinine 0.7 and blood sugar 181. Troponin is 0.26. ASSESSMENT: 1. Status post respiratory failure. 2. Resolving renal insufficiency. 3. Coronary artery disease. 4. Gastroesophageal reflux disease. 5. History of carcinoma of the breast. 6. Severe peripheral vascular disease. 7. Left big toe cellulitis and ulceration. PLAN: We will continue the patient on current medication. She seems to be stable. From respiratory point of view, can be transferred to telemetry. We will continue on spironolactone and hydralazine. She is on Coumadin 2 mg, valsartan 320 daily. We will continue to monitor her blood sugar. She is currently on meropenem, analgesic as needed. MRI of the left foot has been ordered to rule out underlying osteomyelitis for possible amputation and follow up the patient in a.m. Edwige Kirby MD
[2016-10-31] MEDS: Meropenem 1g/NS 100mL IVPB 1 GM/100 ML PIGGYBACK IVPB SCH (05:48)
[2016-10-31] MEDS: Pantoprazole 40 mg EC Tab PO SCH (05:48)
[2016-10-31 06:27] LABS: BASO # 0.03 K/mm3 (0.0-2.0); BASO % 0.4 % (0.0-3.0); EOS # 0.4 (0.0-0.7); EOS % 5.7 % (1.5-5.0); GRAN # 5.55 (1.4-6.5); GRAN % 73.3 % (50.0-68.0); HEMOGLOBIN 10.2 g/dL (12.0-16.0); LYMPH % 13.2 % (22.0-35.0); MEAN CELL VOLUME 90.3 fl (80.0-105.0); MEAN CORPUSCULAR HEMOGLOBIN 27.6 pg (25.0-35.0); MEAN CORPUSCULAR HGB CONC 30.5 g/dl (31.0-37.0); MEAN PLATELET VOLUME 9.1 fl (7.0-11.0); MONO # 0.6 (0.1-0.6); MONO % 7.4 % (1.0-6.0); PLATELET COUNT 287 10^3/uL (120.0-450.0); RED CELL DISTRIBUTION WIDTH 17.2 % (11.5-14.5); WHITE BLOOD COUNT 7.6 10^3/ul (4.5-11.0)
[2016-10-31 06:38] LABS: INR 2.02 (0.93-1.08); PROTHROMBIN TIME 21.8 Seconds (9.9-11.8)
[2016-10-31 06:44] LABS: ALB/GLOB RATIO 1.2 (1.1-1.8); ALBUMIN 3.7 g/dL (3.0-4.8); ALT/SGPT 20 U/L (7-56); AST/SGOT 22 U/L (15-39); BLOOD UREA NITROGEN 25 mg/dL (7-21); CALCIUM 9.7 mg/dL (8.4-10.5); GFR AFRICAN-AMERICAN > 60; GFR NON-AFRICAN AMERICAN > 60; MAGNESIUM 1.8 mg/dL (1.7-2.2)
[2016-10-31] MEDS: guaiFENesin 200 mg/10 ml Syrup UD PO PRN ×2 (07:25→17:16)
[2016-10-31] MEDS: Levalbuterol 1.25 MG/3 ML Inhal Soln UD IH PRN (08:00)
[2016-10-31] MEDS: Insulin Lispro (humaLOG) MEDIUM Coverage SC SCH ×5 (09:22→22:08)
--- NOTE | 2016-10-31 09:53 | CP.PCM.PN ---
Subjective - Date & Time of Evaluation Date of Evaluation: 10/31/16 Time of Evaluation: 08:50 - Subjective Subjective: Comfortable in bed, no fevers, not in distress. Less pain in the left foot. Objective - Vital Signs/Intake and Output Vital Signs (last 24 hours): Temp Pulse Resp BP Pulse Ox 98.9 F 68 17 117/71 96 10/30/16 16:00 10/30/16 19:00 10/30/16 19:00 10/30/16 19:00 10/30/16 19:00 Intake and Output: 10/30/16 10/31/16 18:59 06:59 Intake Total 1000 Output Total 600 Balance 400 - Medications Medications: Current Medications Acetaminophen (Tylenol 325mg Tab) 650 mg PO Q6H PRN PRN Reason: Fever >100.4 F Last Admin: 10/28/16 11:23 Dose: 650 mg Aspirin (Ecotrin) 81 mg PO 0800 [facility] Last Admin: 10/30/16 08:50 Dose: 81 mg Furosemide (Lasix) 40 mg PO DAILY [facility] Last Admin: 10/30/16 09:53 Dose: Not Given Guaifenesin (Robitussin) 200 mg PO Q4H PRN PRN Reason: Cough and congestion Last Admin: 10/30/16 18:20 Dose: 200 mg Hydralazine HCl (Apresoline) 50 mg PO BID [facility] Last Admin: 10/21/16 18:32 Dose: Not Given Hydralazine HCl (Apresoline) 10 mg IVP Q6 PRN PRN Reason: give for SBP above 150 Last Admin: 10/26/16 14:41 Dose: 10 mg Propofol (Diprivan) 1,000 mg in 100 mls @ 3.333 mls/hr IV .Q24H PRN; Protocol; 5 MCG/KG/MIN PRN Reason: TITRATE PER MD ORDER Last Admin: 10/27/16 10:31 Dose: 10 mcg/kg/min, 6.665 mls/hr Insulin Human Lispro (Humalog Med) 0 units SC ACHS [facility] PRN Reason: Protocol Last Admin: 10/30/16 22:13 Dose: Not Given Isosorbide Mononitrate (Imdur) 60 mg PO DAILY [facility] Last Admin: 10/21/16 09:54 Dose: Not Given Lactic Acid (Lac-Hydrin 12% Lotion (225 G)) 0 gm EXT BID [facility] Last Admin: 10/30/16 18:11 Dose: 1 applic Levalbuterol HCl (Xopenex) 1.25 mg IH [id number] PRN PRN Reason: Shortness of Breath Last Admin: 10/30/16 13:43 Dose: 1.25 mg Metoprolol Tartrate (Lopressor) 25 mg PO BID [facility] Last Admin: 10/30/16 18:14 Dose: Not Given Mupirocin (Bactroban Ointment) 0 gm TOP BID [facility] Last Admin: 10/30/16 18:10 Dose: 1 applic Nicotine (Nicoderm Cq) 1 patch TD DAILY [facility] Last Admin: 10/30/16 18:11 Dose: Not Given Nystatin/Triamcinolone Acetonide (Nystatin/Triamcinolone Cream) 0 ea TOP BID [facility] Last Admin: 10/30/16 18:11 Dose: 1 applic Oxycodone HCl (Oxycodone Immediate Release Tab) 10 mg PO Q6H PRN PRN Reason: Pain, severe (8-10) Last Admin: 10/30/16 08:51 Dose: 10 mg Pantoprazole Sodium (Protonix Ec Tab) 40 mg PO 0600 [facility] Last Admin: 10/31/16 05:48 Dose: 40 mg Risperidone (Risperdal Tab) 0.25 mg PO BID [facility] PRN Reason: Protocol Last Admin: 10/30/16 18:16 Dose: 0.25 mg Spironolactone (Aldactone) 25 mg PO DAILY [facility] Last Admin: 10/30/16 09:52 Dose: Not Given Tiotropium [place] (Spiriva) 18 mcg IH DAILY [facility] Last Admin: 10/29/16 10:21 Dose: 18 mcg Valsartan (Diovan) 320 mg PO DAILY [facility] Last Admin: 10/30/16 09:53 Dose: Not Given Warfarin Sodium (Coumadin) 2 mg PO 1800 [facility] PRN Reason: Protocol Last Admin: 10/30/16 18:16 Dose: 2 mg - Labs Labs: 10/30/16 05:30 10/30/16 05:30 PT 26.7 Seconds (9.9-11.8) H 10/30/16 05:30 INR 2.47 (0.93-1.08) H 10/30/16 05:30 APTT 39.9 Seconds (23.7-30.8) H 10/23/16 05:40 - Constitutional Appears: Non-toxic, No Acute Distress - Head Exam Head Exam: NORMAL INSPECTION - ENT Exam ENT Exam: Mucous Membranes Moist - Neck Exam Neck Exam: absent: Lymphadenopathy, Meningismus - Respiratory Exam Respiratory Exam: Decreased Breath Sounds - Cardiovascular Exam Cardiovascular Exam: +S1, +S2 - GI/Abdominal Exam GI & Abdominal Exam: Soft. absent: Tenderness - Extremities Exam Additional comments: left foot with dressings in place Assessment and Plan - Assessment and Plan (Free Text) Plan: Assessment sepsis from UTI, and cellulitis of the left foot, clinically improving S/P Ventilator-dependent respiratory failure probably from pulmonary edema hypoventilation R/O aspiration pneumonia, healthcare-associated history of infected diabetic ulceration of the left hallux associated with trauma with probable peripheral vascular disease, growing MRSA - no evidence of osteomyelitis on MRI - S/P arthrectomy and angioplasty of left sided lower extremity vasculature S/P Sepsis with acute hypoxic respiratory failure secondary to left-sided healthcare-associated pneumonia with possible gram positive cocci and/or gram negative bacilli, clinically improved and S/P treatment as well as sepsis from persistent methicillin-resistant coagulase negative staph bacteremia , probably port infection S/P removal of the port history of Group G Strep bacteremia history of E. coli UTI history of healthcare-associated pneumonia acute renal failure obesity with BMI 38 CAD GERD arthritis history of bilateral knee replacements chronic CHF COPD DM history of breast CA History of Strep bovis bacteremia (2012) S/P Port-a-cath placement Plan completed 10 days of Zyvox and Merrem; toe cx grew E. faecalis and Pseudomonas, urine growing Klebsiella; will target 7-10 days of therapy - will d/c antibiotics today will continue to follow clinically off antibiotics since she is at risk for nosocomial infections
[2016-10-31] MEDS: Nystatin-Triamcinolone Cream(30 gm) TOP SCH ×2 (10:00→18:22)
[2016-10-31] MEDS: Ammonium Lactate 12% Lotion (225 g) EXT SCH ×2 (10:00→18:23)
[2016-10-31] MEDS: oxyCODONE 10 mg Immediate Release Tab PO PRN (10:52)
[2016-10-31] MEDS: Tiotropium 18 mcg Cap For Inhalation IH SCH (11:00)
--- NOTE | 2016-10-31 13:14 | PN ---
DATE: SUBJECTIVE: The patient is 71 years old seen and examined sitting in chair, seems to be comfortable, complaining of pain in both feet, left more than the right, bilateral leg swelling. Denies any nausea or vomiting, eating and tolerating. No shortness of breath. Still has productive cough. PHYSICAL EXAMINATION: VITAL SIGNS: She is afebrile, pulse 95, respirations 15, and blood pressure 125/56. HEART: S1 and S2 audible. LUNGS: Bilateral fair airflow. No rhonchi or crackles. ABDOMEN: Soft and nontender. No rebound. No guarding. NEUROLOGIC: The patient is awake and alert, communicative. Moves all extremities. Has generalized weakness. As per nurse, she was able to standup today. Still has difficulty walking because of generalized weakness and pain in both feet. LABORATORY DATA: WBC 7.6, hemoglobin 10.2, hematocrit 33.4, and platelet of 287. PT 21.8. INR 2.02. Chemistry, sodium 137, potassium 4.7, chloride 91, CO2 36, BUN 25, creatinine 0.7, and blood sugar of 177. ASSESSMENT: 1. Status post respiratory failure. 2. Community-acquired pneumonia. 3. Pulmonary hypertension. 4. Moderate aortic stenosis. 5. Chronic atrial fibrillation. 6. 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 7. Chronic anemia requiring intermittent blood transfusion. 8. Resolving kidney failure. 9. Severe peripheral vascular disease, status post angioplasty. 10. Left big toe cellulitis and ulcer. PLAN: Currently, the patient is awaiting to be transferred to telemetry. For now, we will continue her on current medication that include Aldactone, hydralazine, Coumadin 2 mg daily, valsartan, Lasix, and Protonix. I will request PCU evaluation. The patient is unable to ambulate. She might be benefit from physical therapy. Edwige Kirby MD
--- NOTE | 2016-10-31 16:09 | PN ---
DATE: 10/31/2016 SUBJECTIVE: The patient is seen, sitting in chair. She is awake. She is alert. She is groggy. PHYSICAL EXAMINATION: GENERAL: Morbidly obese, elderly lady, sitting in chair. VITAL SIGNS: Blood pressure 146/82, heart rate 95, respiratory rate 15, temperature 98.9. HEENT: Normocephalic and atraumatic. Positive pallor. NECK: Supple. No JVD. LUNGS: Bilateral equal air entry, bilateral rhonchi, no rales. CARDIAC: S1 and S2, regular rate and rhythm, no murmur, no rub. ABDOMEN: Obese, distended, soft, nontender. Bowel sounds present. EXTREMITIES: 1+ pitting edema of the lower extremities, erythema of the left lower extremity, dressing of the left foot. INTAKE AND OUTPUT: 1000/600. LABORATORY DATA: WBC 7.6, hemoglobin 10, hematocrit 33, platelets 287. Sodium 137, potassium 4.7, chloride 91, CO2 of 36, BUN 25, creatinine 0.7, glucose 177, calcium 9.7, phosphorous 2.9, magnesium 1.8, albumin 3.7, troponin 0.20. CURRENT MEDICATIONS: List reviewed. ASSESSMENT: 1. Resolved acute kidney injury. 2. Resolving alkalosis. 3. Resolved hypokalemia. 4. Resolved sepsis. 5. Cellulitis of the lower extremity. 6. Chronic obstructive pulmonary disease, chronic atrial fibrillation, atrial flutter. PLAN: 1. Continue Aldactone and Lasix. 2. Follow troponin. 3. Conservative management for acute coronary syndrome as per cardiology. 4. Antibiotics as per ID recommendations. 5. Continue respiratory treatments. Naomi Hinojosa MD
--- NOTE | 2016-10-31 22:56 | PN ---
REASON FOR CONSULTATION: Cardiac evaluation; coronary artery disease, one vessel; status post respiratory failure; status post extubated; chronic atrial fibrillation. SUBJECTIVE: The patient is awake and alert. Denies any chest pain, shortness of breath, or any palpitations. PHYSICAL EXAMINATION: GENERAL: Awake and alert, lying comfortably in the bed. VITAL SIGNS: Temperature afebrile, heart rate 89, blood pressure 146/82. HEENT: PERRLA. Extraocular muscles intact. NECK: Supple. No carotid bruit. No thyromegaly. CHEST: Clear to auscultation. HEART: S1 and S2 regular. ABDOMEN: Soft. EXTREMITIES: Clubbing and cyanosis negative. LABORATORY DATA: Blood workup as follows: WBC 7.6, hemoglobin 10.8, hematocrit 33.4, platelet count 287. Chemistry shows sodium 137, potassium 4.0, chloride 91, carbon dioxide 36, anion gap of 15, BUN 25, creatinine 0.7, troponin 0.2. ASSESSMENT: This is a 71 year old female with past medical history significant for coronary artery disease, one vessel, status post transesophageal echocardiogram in the past; moderate aortic stenosis; chronic atrial fibrillation, on anticoagulation; pulmonary hypertension; [id number] tricuspid and mitral valve regurgitation; admitted with sepsis, possible pneumonia, intubated, sent to the floor, re-intubated, now the patient is status post extubated, history of peripheral arterial disease, cellulitis of her big toe, chronic atrial fibrillation, positive troponin borderline secondary to rather than true [id number] myocardial infarction. INR is 2.1. RECOMMENDATION: Continue spironolactone. Continue diuretics. Increase Coumadin to 3 mg a day, PT/INR daily. No coronary intervention is planned at this time, aggressive medical treatment, avoid nephrotoxic medication,continue isosorbide , continue metoprolol, continue aspirin, continue valsartan, continue hydralazine. We will follow with you. Thank you Dr. Kirby for providing the opportunity in taking care of the patient. Brianna Sandra MD
--- NOTE | 2016-11-01 01:25 | PN ---
SUBJECTIVE: A 71-year-old female seen in ICU for continued evaluation and management of a full-thickness diabetic ulceration to her left hallux. PHYSICAL EXAMINATION VITAL SIGNS: Reveal a temperature of 98.7, pulse rate of 79, blood pressure of 155/71 and respiratory rate of 18. LABORATORY FINDINGS: Reveal a white count of 7.6, hemoglobin of 10.2, hematocrit of 33.4 and platelet count of 287. OBJECTIVE: Nonpalpable pedal pulses noted bilaterally, +1 pitting edema to both lower extremities. Capillary filling time is greatly delayed x10. There is a full-thickness ulceration at the medial aspect of the left hallux, which measures approximately 4 cm x 3.5 cm x 0.2 cm. Base of the ulcer is fibrotic with gangrenous tissue. There is no drainage noted. No purulence to suggest underlying abscess formation. There is no malodor. The wound does not probe to tendon or bone. Right hallux and fifth digit present with discoloration which are ischemic in nature, but with no open lesions or rudolph gangrene at this point. ASSESSMENT: A 71-year-old diabetic female with a full-thickness diabetic left hallux ulceration. PLAN: The patient was seen and evaluated at bedside. Wounds were cleansed with normal sterile saline, application of Bactroban and a dry sterile dressing was applied. We will continue with IV antibiotics as per infectious disease. No surgical intervention is planned at this time. The patient will be seen and followed daily. Deric Henriquez DPM
[2016-11-01] MEDS: oxyCODONE 10 mg Immediate Release Tab PO PRN (02:01)
[2016-11-01 06:02] LABS: BASO # 0.02 K/mm3 (0.0-2.0); BASO % 0.2 % (0.0-3.0); EOS # 0.3 (0.0-0.7); EOS % 2.8 % (1.5-5.0); GRAN # 8.39 (1.4-6.5); GRAN % 80.4 % (50.0-68.0); HEMOGLOBIN 9.9 g/dL (12.0-16.0); LYMPH # 1.1 (1.2-3.4); LYMPH % 10.2 % (22.0-35.0); MEAN CELL VOLUME 89.8 fl (80.0-105.0); MEAN CORPUSCULAR HGB CONC 31.1 g/dl (31.0-37.0); MEAN PLATELET VOLUME 8.9 fl (7.0-11.0); MONO # 0.7 (0.1-0.6); MONO % 6.4 % (1.0-6.0); PLATELET COUNT 287 10^3/uL (120.0-450.0); RBC 3.54 10^6/uL (3.5-6.1); RED CELL DISTRIBUTION WIDTH 16.9 % (11.5-14.5); WHITE BLOOD COUNT 10.4 10^3/ul (4.5-11.0)
[2016-11-01 06:08] LABS: INR 1.85 (0.93-1.08)
[2016-11-01 06:17] LABS: ALB/GLOB RATIO 1.3 (1.1-1.8); ALBUMIN 3.5 g/dL (3.0-4.8); ALT/SGPT 24 U/L (7-56); AST/SGOT 31 U/L (15-39); BLOOD UREA NITROGEN 32 mg/dL (7-21); CALCIUM 9.8 mg/dL (8.4-10.5); GFR AFRICAN-AMERICAN > 60; GFR NON-AFRICAN AMERICAN > 60; MAGNESIUM 1.9 mg/dL (1.7-2.2)
[2016-11-01] MEDS: Insulin Lispro (humaLOG) MEDIUM Coverage SC SCH ×4 (09:01→22:42)
[2016-11-01] MEDS: Tiotropium 18 mcg Cap For Inhalation IH SCH (09:02)
[2016-11-01] MEDS: guaiFENesin 200 mg/10 ml Syrup UD PO PRN ×2 (09:02→14:45)
[2016-11-01] MEDS: Pantoprazole 40 mg EC Tab PO SCH (09:04)
[2016-11-01] MEDS: Ammonium Lactate 12% Lotion (225 g) EXT SCH ×2 (09:08→17:45)
[2016-11-01] MEDS: Nystatin-Triamcinolone Cream(30 gm) TOP SCH ×2 (09:08→17:46)
--- NOTE | 2016-11-01 09:15 | CP.PCM.PN ---
<Sp Wayne - Last Filed: 11/01/16 09:11> Subjective - Date & Time of Evaluation Date of Evaluation: 11/01/16 Time of Evaluation: 09:12 - Subjective Subjective: 71 year old female patient seen at bedside for left hallux ulceration, leg erythema. Pt is resting comfortably in bed, eating breakfast under own ability, and breathing normally at time of visit with assistance of nasal canula. Pt's responses are prompt and patient is alert awake, and oriented. Pt denies recent f/c/cp/sob.n/v. Patient denies any acute overnight events and denies any new pedal complaints. Objective - Vital Signs/Intake and Output Vital Signs (last 24 hours): Temp Pulse Resp BP Pulse Ox 98.8 F 102 H 40 H 130/87 83 L 11/01/16 04:00 11/01/16 09:04 11/01/16 04:00 11/01/16 09:04 11/01/16 05:00 Intake and Output: 11/01/16 11/01/16 06:59 18:59 Intake Total 560 Output Total 800 Balance -240 - Medications Medications: Current Medications Acetaminophen (Tylenol 325mg Tab) 650 mg PO Q6H PRN PRN Reason: Fever >100.4 F Last Admin: 10/28/16 11:23 Dose: 650 mg Aspirin (Ecotrin) 81 mg PO 0800 [facility] Last Admin: 10/31/16 09:35 Dose: 81 mg Furosemide (Lasix) 40 mg PO DAILY [facility] Last Admin: 11/01/16 09:03 Dose: 40 mg Guaifenesin (Robitussin) 200 mg PO Q4H PRN PRN Reason: Cough and congestion Last Admin: 11/01/16 09:02 Dose: 200 mg Hydralazine HCl (Apresoline) 50 mg PO BID [facility] Last Admin: 10/21/16 18:32 Dose: Not Given Hydralazine HCl (Apresoline) 10 mg IVP Q6 PRN PRN Reason: give for SBP above 150 Last Admin: 10/26/16 14:41 Dose: 10 mg Propofol (Diprivan) 1,000 mg in 100 mls @ 3.333 mls/hr IV .Q24H PRN; Protocol; 5 MCG/KG/MIN PRN Reason: TITRATE PER MD ORDER Last Admin: 10/27/16 10:31 Dose: 10 mcg/kg/min, 6.665 mls/hr Insulin Human Lispro (Humalog Med) 0 units SC ACHS [facility] PRN Reason: Protocol Last Admin: 11/01/16 09:01 Dose: 1 units Isosorbide Mononitrate (Imdur) 60 mg PO DAILY [facility] Last Admin: 10/21/16 09:54 Dose: Not Given Lactic Acid (Lac-Hydrin 12% Lotion (225 G)) 0 gm EXT BID [facility] Last Admin: 11/01/16 09:08 Dose: 1 applic Levalbuterol HCl (Xopenex) 1.25 mg IH [id number] PRN PRN Reason: Shortness of Breath Last Admin: 10/31/16 08:00 Dose: 1.25 mg Metoprolol Tartrate (Lopressor) 25 mg PO BID [facility] Last Admin: 11/01/16 09:04 Dose: 25 mg Mupirocin (Bactroban Ointment) 0 gm TOP BID [facility] Last Admin: 11/01/16 09:07 Dose: 1 applic Nicotine (Nicoderm Cq) 1 patch TD DAILY [facility] Last Admin: 11/01/16 09:05 Dose: 1 patch Nystatin/Triamcinolone Acetonide (Nystatin/Triamcinolone Cream) 0 ea TOP BID [facility] Last Admin: 11/01/16 09:08 Dose: 1 applic Oxycodone HCl (Oxycodone Immediate Release Tab) 10 mg PO Q6H PRN PRN Reason: Pain, severe (8-10) Last Admin: 11/01/16 02:01 Dose: 10 mg Pantoprazole Sodium (Protonix Ec Tab) 40 mg PO 0600 [facility] Last Admin: 11/01/16 09:04 Dose: 40 mg Risperidone (Risperdal Tab) 0.25 mg PO BID [facility] PRN Reason: Protocol Last Admin: 11/01/16 09:04 Dose: 0.25 mg Spironolactone (Aldactone) 25 mg PO DAILY [facility] Last Admin: 11/01/16 09:03 Dose: 25 mg Tiotropium [place] (Spiriva) 18 mcg IH DAILY [facility] Last Admin: 11/01/16 09:02 Dose: 18 mcg Valsartan (Diovan) 320 mg PO DAILY [facility] Last Admin: 11/01/16 09:02 Dose: 320 mg Warfarin Sodium (Coumadin) 3 mg PO 1800 [facility] PRN Reason: Protocol Last Admin: 10/31/16 17:15 Dose: 3 mg - Labs Labs: 11/01/16 05:33 11/01/16 05:33 PT 20.0 Seconds (9.9-11.8) H 11/01/16 05:33 INR 1.85 (0.93-1.08) H 11/01/16 05:33 APTT 39.9 Seconds (23.7-30.8) H 10/23/16 05:40 - Constitutional Appears: Well, Non-toxic - Extremities Exam Additional comments: Lower extremity focused exam Vasc: DP and PT pulses non-palpable B/L secondary to edema. +1 pitting edema noted to left lower extremity. CFT < 4 seconds to digits 1-5 B/L. Derm: Left: Full thickness ulceration with necrotic central eschar noted to medial aspect of left hallux measuring approximately 4.1 cm x 3.5cm. Marita-wound margins absent maceration. Fibrotic wound border noted. No drainage noted at this time. No malodor, no fluctuance or other clinical signs of infection are noted at this time. Left lower leg blanchable erythema decreased at this time and area of erythema static compared to marked perimeter. Right: Ischemic changes seen on 10/29/16 are resolved at this time Neuro: Gross sensation diminished b/l Ortho: Mild tenderness noted on palpation of dorsal hallux - Neurological Exam Neurological Exam: Alert, Awake, Oriented x3 - Psychiatric Exam Psychiatric exam: Normal Affect, Normal Mood Assessment and Plan - Assessment and Plan (Free Text) Assessment: 71 year old female with 1) Left hallux ulceration secondary to DM and PVD. 2) Left lower leg vasculopathy Plan: Pt seen and evaluated at bedside with Dr. Henriquez Chart, labs and vitals reviewed; pt is afebrile, WBC 10.4 Left hallux ulceration dressed with Mupirocin ointment and DSD Still awaiting MRI and ESR Still no offloading boots at bedside Podiatry will continue to follow patient while inhouse. <Deric Henriquez - Last Filed: 11/01/16 09:44> Objective - Vital Signs/Intake and Output Vital Signs (last 24 hours): Temp Pulse Resp BP Pulse Ox 98.8 F 102 H 40 H 130/87 83 L 11/01/16 04:00 11/01/16 09:04 11/01/16 04:00 11/01/16 09:04 11/01/16 05:00 Intake and Output: 11/01/16 11/01/16 06:59 18:59 Intake Total 560 Output Total 800 Balance -240 - Medications Medications: Current Medications Acetaminophen (Tylenol 325mg Tab) 650 mg PO Q6H PRN PRN Reason: Fever >100.4 F Last Admin: 10/28/16 11:23 Dose: 650 mg Aspirin (Ecotrin) 81 mg PO 0800 [facility] Last Admin: 10/31/16 09:35 Dose: 81 mg Furosemide (Lasix) 40 mg PO DAILY [facility] Last Admin: 11/01/16 09:03 Dose: 40 mg Guaifenesin (Robitussin) 200 mg PO Q4H PRN PRN Reason: Cough and congestion Last Admin: 11/01/16 09:02 Dose: 200 mg Hydralazine HCl (Apresoline) 50 mg PO BID [facility] Last Admin: 10/21/16 18:32 Dose: Not Given Hydralazine HCl (Apresoline) 10 mg IVP Q6 PRN PRN Reason: give for SBP above 150 Last Admin: 10/26/16 14:41 Dose: 10 mg Propofol (Diprivan) 1,000 mg in 100 mls @ 3.333 mls/hr IV .Q24H PRN; Protocol; 5 MCG/KG/MIN PRN Reason: TITRATE PER MD ORDER Last Admin: 10/27/16 10:31 Dose: 10 mcg/kg/min, 6.665 mls/hr Insulin Human Lispro (Humalog Med) 0 units SC ACHS [facility] PRN Reason: Protocol Last Admin: 11/01/16 09:01 Dose: 1 units Isosorbide Mononitrate (Imdur) 60 mg PO DAILY [facility] Last Admin: 10/21/16 09:54 Dose: Not Given Lactic Acid (Lac-Hydrin 12% Lotion (225 G)) 0 gm EXT BID [facility] Last Admin: 11/01/16 09:08 Dose: 1 applic Levalbuterol HCl (Xopenex) 1.25 mg IH [id number] PRN PRN Reason: Shortness of Breath Last Admin: 10/31/16 08:00 Dose: 1.25 mg Metoprolol Tartrate (Lopressor) 25 mg PO BID [facility] Last Admin: 11/01/16 09:04 Dose: 25 mg Mupirocin (Bactroban Ointment) 0 gm TOP BID [facility] Last Admin: 11/01/16 09:07 Dose: 1 applic Nicotine (Nicoderm Cq) 1 patch TD DAILY [facility] Last Admin: 11/01/16 09:05 Dose: 1 patch Nystatin/Triamcinolone Acetonide (Nystatin/Triamcinolone Cream) 0 ea TOP BID [facility] Last Admin: 11/01/16 09:08 Dose: 1 applic Oxycodone HCl (Oxycodone Immediate Release Tab) 10 mg PO Q6H PRN PRN Reason: Pain, severe (8-10) Last Admin: 11/01/16 02:01 Dose: 10 mg Pantoprazole Sodium (Protonix Ec Tab) 40 mg PO 0600 [facility] Last Admin: 11/01/16 09:04 Dose: 40 mg Risperidone (Risperdal Tab) 0.25 mg PO BID [facility] PRN Reason: Protocol Last Admin: 11/01/16 09:04 Dose: 0.25 mg Spironolactone (Aldactone) 25 mg PO DAILY [facility] Last Admin: 11/01/16 09:03 Dose: 25 mg Tiotropium [place] (Spiriva) 18 mcg IH DAILY [facility] Last Admin: 11/01/16 09:02 Dose: 18 mcg Valsartan (Diovan) 320 mg PO DAILY [facility] Last Admin: 11/01/16 09:02 Dose: 320 mg Warfarin Sodium (Coumadin) 3 mg PO 1800 [facility] PRN Reason: Protocol Last Admin: 10/31/16 17:15 Dose: 3 mg - Labs Labs: 11/01/16 05:33 11/01/16 05:33 PT 20.0 Seconds (9.9-11.8) H 11/01/16 05:33 INR 1.85 (0.93-1.08) H 11/01/16 05:33 APTT 39.9 Seconds (23.7-30.8) H 10/23/16 05:40 Attending/Attestation - Attestation I have personally seen and examined this patient.: Yes I have fully participated in the care of the patient.: Yes I have reviewed all pertinent clinical information, including history, physical exam and plan: Yes
--- NOTE | 2016-11-01 12:40 | MRI ---
EXAM: MR Left Lower Extremity Without Intravenous Contrast, Foot CLINICAL HISTORY: 71 years old, female; Signs and symptoms; Other: ? Ulcer left toes; Additional info: Ulcer left hallux TECHNIQUE: Multiplanar magnetic resonance images of the left foot without intravenous contrast. COMPARISON: MR - FOOT W/O CONTRAST LEFT 09/25/2016 7:28:21 PM FINDINGS: LIGAMENTS: Medial collateral: Unremarkable. Lateral collateral: Unremarkable. Lisfranc: Unremarkable. Muscles: Unremarkable. Plantar fascia: There is a small plantar calcaneal spur with mild plantar fasciitis. Bones/joints: There is moderate hallux valgus deformity.There are moderate degenerative osteo-arthritic changes in the first metatarsophalangeal joint with joint space narrowing , subchondral sclerosis and osteophyte formation. Bone marrow signal intensity of the visualized osseous structures is unremarkable. No evidence for osteomyelitis, acute fracture or dislocation is seen. Soft tissues: There is mild diffuse soft tissue swelling in the dorsum of the foot consistent with cellulitis in the proper clinical setting.There is no evidence of focal fluid collections to suggest abscess formation. IMPRESSION: 1. There is moderate hallux valgus deformity.There are moderate degenerative osteo-arthritic changes in the first metatarsophalangeal joint with joint space narrowing , subchondral sclerosis and osteophyte formation. 2. Bone marrow signal intensity of the visualized osseous structures is unremarkable. No evidence for osteomyelitis, acute fracture or dislocation is seen. 3. There is mild diffuse soft tissue swelling in the dorsum of the foot consistent with cellulitis in the proper clinical setting.There is no evidence of focal fluid collections to suggest abscess formation. 4. There is a small plantar calcaneal spur with mild plantar fasciitis.
--- NOTE | 2016-11-01 16:18 | PN ---
DATE: SUBJECTIVE: The patient is 71 years old seen and examined sitting in chair, denies any chest pain, shortness of breath, she still has productive cough. Complained of foot pain. PHYSICAL EXAMINATION: VITAL SIGNS: She is afebrile pulse 102, respiration 23, and blood pressure 130/87. LUNGS: Bilateral fair air flow. Few expiratory rhonchi. HEART: S1 and S2, audible. ABDOMEN: Soft, obese, nontender, no rebound, no guarding. NEUROLOGICALLY: She is awake, and alert able to communicate. EXTREMITIES: Bilateral leg edema +2. Left leg erythema. She has left big toes in the dressing. LABORATORY DATA: WBC is 10.4, hemoglobin 9.9, hematocrit 31.8, platelet of 287, PT 20.0, and INR 1.85. Chemistry sodium 138, potassium 4.9, chloride 93, CO2 of 39, BUN 32, creatinine 0.7, and blood sugar of 191. ASSESSMENT: 1. Klebsiella pneumonia. 2. Urinary tract infection treated. 3. Status post respiratory failure. 4. Severe peripheral vascular disease, status post angioplasty. 5. Left big toe ulceration and cellulitis. 6. Gastrointestinal arteriovenous malformations. 7. Chronic anemia. PLAN: We will continue patient on current medications. She will be given 4 mg of Coumadin today. The patient will be transferred to telemetry. We will followup her electrolytes CBC, PT/INR intermittently. Edwige Kirby MD
[2016-11-02] MEDS: Pantoprazole 40 mg EC Tab PO SCH (08:40)
[2016-11-02] MEDS: Insulin Lispro (humaLOG) MEDIUM Coverage SC SCH ×4 (08:41→22:23)
[2016-11-02] MEDS: Nystatin-Triamcinolone Cream(30 gm) TOP SCH ×2 (10:30→18:07)
[2016-11-02] MEDS: Tiotropium 18 mcg Cap For Inhalation IH SCH (10:31)
[2016-11-02] MEDS: Ammonium Lactate 12% Lotion (225 g) EXT SCH ×2 (10:32→18:05)
--- NOTE | 2016-11-02 15:24 | CP.PCM.PN ---
<Sp Wayne - Last Filed: 11/02/16 15:20> Subjective - Date & Time of Evaluation Date of Evaluation: 11/02/16 Time of Evaluation: 15:21 - Subjective Subjective: 71 year old female patient seen at bedside for left hallux ulceration and leg erythema. Pt is resting comfortably in bed and breathing normally at time of visit. Patient's responses are prompt and patient is alert awake, and oriented. Patient denies recent f/c/cp/sob.n/v. No new pedal complaints. Objective - Vital Signs/Intake and Output Vital Signs (last 24 hours): Temp Pulse Resp BP Pulse Ox 98.6 F 76 18 112/46 L 100 11/02/16 13:30 11/02/16 13:30 11/02/16 13:30 11/02/16 13:30 11/01/16 17:08 Intake and Output: 11/02/16 11/02/16 06:59 18:59 Intake Total 260 Output Total 500 Balance -240 - Medications Medications: Current Medications Acetaminophen (Tylenol 325mg Tab) 650 mg PO Q6H PRN PRN Reason: Fever >100.4 F Last Admin: 11/01/16 21:56 Dose: 650 mg Aspirin (Ecotrin) 81 mg PO 0800 [facility] Last Admin: 11/02/16 08:41 Dose: 81 mg Furosemide (Lasix) 40 mg PO DAILY [facility] Last Admin: 11/02/16 10:29 Dose: 40 mg Guaifenesin (Robitussin) 200 mg PO Q4H PRN PRN Reason: Cough and congestion Last Admin: 11/01/16 14:45 Dose: 200 mg Hydralazine HCl (Apresoline) 50 mg PO BID [facility] Last Admin: 10/21/16 18:32 Dose: Not Given Hydralazine HCl (Apresoline) 10 mg IVP Q6 PRN PRN Reason: give for SBP above 150 Last Admin: 11/02/16 00:58 Dose: 10 mg Insulin Human Lispro (Humalog Med) 0 units SC ACHS [facility] PRN Reason: Protocol Last Admin: 11/02/16 13:13 Dose: 5 units Isosorbide Mononitrate (Imdur) 60 mg PO DAILY [facility] Last Admin: 10/21/16 09:54 Dose: Not Given Lactic Acid (Lac-Hydrin 12% Lotion (225 G)) 0 gm EXT BID [facility] Last Admin: 11/02/16 10:32 Dose: 1 applic Levalbuterol HCl (Xopenex) 1.25 mg IH [id number] PRN PRN Reason: Shortness of Breath Last Admin: 10/31/16 08:00 Dose: 1.25 mg Metoprolol Tartrate (Lopressor) 25 mg PO BID [facility] Last Admin: 11/02/16 10:29 Dose: 25 mg Mupirocin (Bactroban Ointment) 0 gm TOP BID [facility] Last Admin: 11/02/16 10:31 Dose: 1 applic Nicotine (Nicoderm Cq) 1 patch TD DAILY [facility] Last Admin: 11/02/16 10:30 Dose: 1 patch Nystatin/Triamcinolone Acetonide (Nystatin/Triamcinolone Cream) 0 ea TOP BID [facility] Last Admin: 11/02/16 10:30 Dose: 1 applic Pantoprazole Sodium (Protonix Ec Tab) 40 mg PO 0600 [facility] Last Admin: 11/02/16 08:40 Dose: 40 mg Risperidone (Risperdal Tab) 0.25 mg PO BID [facility] PRN Reason: Protocol Last Admin: 11/02/16 10:39 Dose: 0.25 mg Spironolactone (Aldactone) 25 mg PO DAILY [facility] Last Admin: 11/02/16 10:29 Dose: 25 mg Tiotropium [place] (Spiriva) 18 mcg IH DAILY [facility] Last Admin: 11/02/16 10:31 Dose: 18 mcg Valsartan (Diovan) 320 mg PO DAILY [facility] Last Admin: 11/02/16 10:30 Dose: 320 mg Warfarin Sodium (Coumadin) 4 mg PO 1800 [facility] PRN Reason: Protocol Last Admin: 11/01/16 17:44 Dose: 4 mg - Labs Labs: 11/01/16 05:33 11/01/16 05:33 PT 20.0 Seconds (9.9-11.8) H 11/01/16 05:33 INR 1.85 (0.93-1.08) H 11/01/16 05:33 APTT 39.9 Seconds (23.7-30.8) H 10/23/16 05:40 - Constitutional Appears: Well, Non-toxic, No Acute Distress - Extremities Exam Additional comments: Lower extremity focused exam Vasc: DP and PT pulses non-palpable B/L secondary to edema. +1 pitting edema noted to left lower extremity. CFT < 4 seconds to digits 1-5 B/L. Derm: Left: Full thickness ulceration with necrotic central eschar noted to medial aspect of left hallux measuring approximately 4.3 cm x 3.6cm. Marita-wound margins absent maceration. Fibrotic wound border noted. No serous drainage noted at this time. No malodor, no fluctuance or other clinical signs of infection are noted at this time. Right: Ischemic changes seen on 10/29/16 are resolved at this time Neuro: Gross sensation diminished b/l Ortho: Mild tenderness noted on palpation of dorsal hallux - Neurological Exam Neurological Exam: Alert, Awake, Oriented x3 - Psychiatric Exam Psychiatric exam: Normal Affect, Normal Mood Assessment and Plan - Assessment and Plan (Free Text) Assessment: 71 year old female with 1) Left hallux ulceration secondary to DM and PVD. 2) Left lower leg vasculopathy Plan: Patient seen and treated at bedside Charts, labs and vitals reviewed; afebrile, WBC 10.4 Left foot ulcer dressed with Mupirocin and DSD MRI (-) for OM Continue IV abx per ID No surgical intervention planned at this time Podiatry will continue to follow while patient is in house <Nikia Hoffman - Last Filed: 11/02/16 19:59> Objective - Vital Signs/Intake and Output Vital Signs (last 24 hours): Temp Pulse Resp BP Pulse Ox 98 F 92 H 20 158/67 H 100 11/02/16 17:47 11/02/16 18:00 11/02/16 17:47 11/02/16 18:00 11/01/16 17:08 - Medications Medications: Current Medications Acetaminophen (Tylenol 325mg Tab) 650 mg PO Q6H PRN PRN Reason: Fever >100.4 F Last Admin: 11/02/16 16:47 Dose: 650 mg Aspirin (Ecotrin) 81 mg PO 0800 [facility] Last Admin: 11/02/16 08:41 Dose: 81 mg Furosemide (Lasix) 40 mg PO DAILY [facility] Last Admin: 11/02/16 10:29 Dose: 40 mg Guaifenesin (Robitussin) 200 mg PO Q4H PRN PRN Reason: Cough and congestion Last Admin: 11/01/16 14:45 Dose: 200 mg Hydralazine HCl (Apresoline) 50 mg PO BID [facility] Last Admin: 10/21/16 18:32 Dose: Not Given Hydralazine HCl (Apresoline) 10 mg IVP Q6 PRN PRN Reason: give for SBP above 150 Last Admin: 11/02/16 00:58 Dose: 10 mg Insulin Human Lispro (Humalog Med) 0 units SC ACHS [facility] PRN Reason: Protocol Last Admin: 11/02/16 18:01 Dose: 3 units Isosorbide Mononitrate (Imdur) 60 mg PO DAILY [facility] Last Admin: 10/21/16 09:54 Dose: Not Given Lactic Acid (Lac-Hydrin 12% Lotion (225 G)) 0 gm EXT BID [facility] Last Admin: 11/02/16 18:05 Dose: 1 applic Levalbuterol HCl (Xopenex) 1.25 mg IH [id number] PRN PRN Reason: Shortness of Breath Last Admin: 10/31/16 08:00 Dose: 1.25 mg Metoprolol Tartrate (Lopressor) 25 mg PO BID [facility] Last Admin: 11/02/16 18:00 Dose: 25 mg Mupirocin (Bactroban Ointment) 0 gm TOP BID [facility] Last Admin: 11/02/16 18:04 Dose: 1 applic Nicotine (Nicoderm Cq) 1 patch TD DAILY [facility] Last Admin: 11/02/16 10:30 Dose: 1 patch Nystatin/Triamcinolone Acetonide (Nystatin/Triamcinolone Cream) 0 ea TOP BID [facility] Last Admin: 11/02/16 18:07 Dose: 1 applic Pantoprazole Sodium (Protonix Ec Tab) 40 mg PO 0600 [facility] Last Admin: 11/02/16 08:40 Dose: 40 mg Risperidone (Risperdal Tab) 0.25 mg PO BID [facility] PRN Reason: Protocol Last Admin: 11/02/16 18:00 Dose: 0.25 mg Spironolactone (Aldactone) 25 mg PO DAILY [facility] Last Admin: 11/02/16 10:29 Dose: 25 mg Tiotropium [place] (Spiriva) 18 mcg IH DAILY [facility] Last Admin: 11/02/16 10:31 Dose: 18 mcg Valsartan (Diovan) 320 mg PO DAILY [facility] Last Admin: 11/02/16 10:30 Dose: 320 mg Warfarin Sodium (Coumadin) 4 mg PO 1800 [facility] PRN Reason: Protocol Last Admin: 11/02/16 18:00 Dose: 4 mg - Labs Labs: 11/01/16 05:33 11/01/16 05:33 PT 20.0 Seconds (9.9-11.8) H 11/01/16 05:33 INR 1.85 (0.93-1.08) H 11/01/16 05:33 APTT 39.9 Seconds (23.7-30.8) H 10/23/16 05:40 Attending/Attestation - Attestation I have personally seen and examined this patient.: Yes I have fully participated in the care of the patient.: Yes I have reviewed all pertinent clinical information, including history, physical exam and plan: Yes
--- NOTE | 2016-11-02 19:57 | PN ---
DATE: 11/02/2016 SUBJECTIVE: The patient is seen, sitting in bed. She is awake. She is alert. She is comfortable. She does not appear to be in any kind of distress. PHYSICAL EXAMINATION: VITAL SIGNS: Blood pressure 112/46, heart rate 76, respiratory rate 18, temperature 98.6. HEENT: Normocephalic, atraumatic, positive pallor. NECK: Supple. No JVD. LUNGS: Bilateral rhonchi, distant breath sounds, no rales. CARDIAC: S1 and S2, regular rate and rhythm, no murmur, no rub. ABDOMEN: Obese, distended, soft, nontender. Bowel sounds present. EXTREMITIES: 1+ pitting edema of the lower extremities, decreasing erythema of the left lower extremity. INTAKE AND OUTPUT: 660/2000. LABORATORY DATA: WBC 10, hemoglobin 9.9, hematocrit 32, platelets 287. Sodium 138, potassium 4.9, chloride 93, CO2 of 39, BUN 32, creatinine 0.7, glucose 191, calcium 9.8, phosphorous 3.2, magnesium 1.9. AST 31 and ALT 24. Albumin 3.5. CURRENT MEDICATIONS: Aldactone 25 mg daily, Diovan 320, insulin 40 p.o. daily. ASSESSMENT: 1. Resolved acute kidney injury. 2. Volume overload, diuresing well with Aldactone and Lasix. 3. Stats post sepsis. 4. Cellulitis. 5. Klebsiella urinary tract infection. PLAN: 1. Continue current management. 2. Continue antibiotics as per ID. 3. Continue Lasix and Aldactone. 4. Okay to continue Diovan 320. Naomi Hinojosa MD
[2016-11-03] MEDS: Pantoprazole 40 mg EC Tab PO SCH (05:31)
--- NOTE | 2016-11-03 05:36 | PN ---
DATE: 11/02/2016 SUBJECTIVE: The patient has no complaints of any chest pain, shortness of breath, headaches, or dizziness. PHYSICAL EXAMINATION VITAL SIGNS: Temperature is 98, pulse of 90, blood pressure is 158/67, respiration is 20. GENERAL: The patient is lying in bed, flat, comfortable. HEENT: No oral lesion. Anicteric sclerae. Moist mucosa. NECK: No JVD, adenopathy, or thyromegaly. CARDIOVASCULAR: S1 and S2, regular. No murmurs, rubs, or gallops. LUNGS: Clear to auscultation bilaterally. No wheeze, rales, or rhonchi. ABDOMEN: Bowel sounds are positive, soft, nontender and nondistended. EXTREMITIES: No cyanosis, clubbing, or edema. LABORATORY DATA: Labs reviewed. Creatinine 0.7. White count of 10.4. MRI done of the left foot shows moderate hallux valgus deformity with moderate degenerative osteoarthritis, rest of the report was reviewed. ASSESSMENT: 1. Urinary tract infection secondary to Klebsiella. 2. Peripheral arterial disease. 3. Gastrointestinal arteriovenous malformation. 4. Chronic anemia. 5. Acute kidney injury, resolved. PLAN: The patient is currently comfortable. She is on Aldactone. She is going to continue with hydralazine and valsartan for her hypertension. She is on Lasix daily. She is receiving Protonix. She is on risperidone. She is on Spiriva for her breathing. She is receiving Xopenex. She has BiPAP as well. The patient is going to have TCU evaluation done. Da Wooten MD
[2016-11-03] MEDS: Insulin Lispro (humaLOG) MEDIUM Coverage SC SCH ×3 (07:45→22:30)
[2016-11-03] MEDS: Tiotropium 18 mcg Cap For Inhalation IH SCH (10:34)
[2016-11-03] MEDS: Nystatin-Triamcinolone Cream(30 gm) TOP SCH ×2 (10:35→19:54)
[2016-11-03] MEDS: Ammonium Lactate 12% Lotion (225 g) EXT SCH ×2 (13:00→17:30)
--- NOTE | 2016-11-03 14:15 | PN ---
DATE: 11/03/2016 SUBJECTIVE: The patient is seen sitting in bed. She is awake, she is alert. She is comfortable. She denies any cough, shortness of breath. PHYSICAL EXAMINATION: GENERAL: Morbidly obese, elderly lady, lying in bed. VITAL SIGNS: Blood pressure 164/86, heart rate 82, respiratory rate 20, temperature 98. HEENT: Normocephalic and atraumatic. NECK: Supple. No JVD. LUNGS: Bilateral equal air entry, bilateral rhonchi, no rales. CARDIAC: S1 and S2, regular rate and rhythm, no murmur, no rub. ABDOMEN: Obese, distended, soft, nontender. Bowel sounds present. EXTREMITIES: Lower extremity erythema both legs, ulcer of the left great toe. INTAKE AND OUTPUT: 720/not charted. LABORATORY DATA: WBC 10, hemoglobin 9.9, hematocrit 32, platelets 287. No chemistry. CURRENT MEDICATIONS: Aldactone 25, hydralazine 50 b.i.d., Bactroban, Coumadin 4, Diovan 320, Ecotrin 81, Imdur 60, Lasix 20, Lopressor 25 b.i.d., Nicoderm patch daily, nystatin, Protonix, Risperdal, guaifenesin, Spiriva, Tylenol, Xopenex. ASSESSMENT AND PLAN: 1. Resolved acute kidney injury. 2. Status post sepsis. 3. Klebsiella urinary tract infection. 4. Cellulitis of the lower extremities with pseudomonas wound infection. 5. Morbid obesity. 6. Ggi-euvqwrd-uzblduhnt diabetes mellitus. 7. Chronic obstructive pulmonary disease. 8. Volume overload. PLAN: 1. The patient is off antibiotics. 2. Continue Lasix and Aldactone. 3. Continue Diovan. 4. Restart hydralazine 50 b.i.d. 5. Continue finger pricks and insulin coverage. 6. Continue to work on smoking cessation. Naomi Hinojosa MD
--- NOTE | 2016-11-03 16:46 | CP.PCM.PN ---
Subjective - Date & Time of Evaluation Date of Evaluation: 11/03/16 Time of Evaluation: 17:00 - Subjective Subjective: 71 year old female patient seen at bedside for left hallux ulceration and leg erythema. Pt is resting comfortably in bed and breathing normally at time of visit. Patient's responses are prompt and patient is alert awake, and oriented. Patient denies recent f/c/cp/sob.n/v. No new pedal complaints. Objective - Vital Signs/Intake and Output Vital Signs (last 24 hours): Temp Pulse Resp BP Pulse Ox 98 F 90 20 164/86 H 100 11/02/16 17:47 11/03/16 14:00 11/02/16 17:47 11/03/16 10:34 11/01/16 17:08 Intake and Output: 11/03/16 11/03/16 06:59 18:59 Intake Total 720 Balance 720 - Medications Medications: Current Medications Acetaminophen (Tylenol 325mg Tab) 650 mg PO Q6H PRN PRN Reason: Fever >100.4 F Last Admin: 11/03/16 16:35 Dose: 650 mg Aspirin (Ecotrin) 81 mg PO 0800 [facility] Last Admin: 11/03/16 07:47 Dose: 81 mg Furosemide (Lasix) 40 mg PO DAILY [facility] Last Admin: 11/03/16 10:34 Dose: 40 mg Guaifenesin (Robitussin) 200 mg PO Q4H PRN PRN Reason: Cough and congestion Last Admin: 11/01/16 14:45 Dose: 200 mg Hydralazine HCl (Apresoline) 50 mg PO BID [facility] Last Admin: 10/21/16 18:32 Dose: Not Given Hydralazine HCl (Apresoline) 10 mg IVP Q6 PRN PRN Reason: give for SBP above 150 Last Admin: 11/02/16 00:58 Dose: 10 mg Insulin Human Lispro (Humalog Med) 0 units SC ACHS [facility] PRN Reason: Protocol Last Admin: 11/03/16 07:45 Dose: 1 units Isosorbide Mononitrate (Imdur) 60 mg PO DAILY [facility] Last Admin: 10/21/16 09:54 Dose: Not Given Lactic Acid (Lac-Hydrin 12% Lotion (225 G)) 0 gm EXT BID [facility] Last Admin: 11/03/16 13:00 Dose: Not Given Levalbuterol HCl (Xopenex) 1.25 mg IH [id number] PRN PRN Reason: Shortness of Breath Last Admin: 10/31/16 08:00 Dose: 1.25 mg Metoprolol Tartrate (Lopressor) 25 mg PO BID [facility] Last Admin: 11/03/16 10:34 Dose: 25 mg Mupirocin (Bactroban Ointment) 0 gm TOP BID [facility] Last Admin: 11/02/16 18:04 Dose: 1 applic Nicotine (Nicoderm Cq) 1 patch TD DAILY [facility] Last Admin: 11/03/16 10:33 Dose: 1 patch Nystatin/Triamcinolone Acetonide (Nystatin/Triamcinolone Cream) 0 ea TOP BID [facility] Last Admin: 11/03/16 10:35 Dose: 1 applic Pantoprazole Sodium (Protonix Ec Tab) 40 mg PO 0600 [facility] Last Admin: 11/03/16 05:31 Dose: 40 mg Risperidone (Risperdal Tab) 0.25 mg PO BID [facility] PRN Reason: Protocol Last Admin: 11/03/16 10:33 Dose: 0.25 mg Spironolactone (Aldactone) 25 mg PO DAILY [facility] Last Admin: 11/03/16 10:33 Dose: 25 mg Tiotropium [place] (Spiriva) 18 mcg IH DAILY [facility] Last Admin: 11/03/16 10:34 Dose: 18 mcg Valsartan (Diovan) 320 mg PO DAILY [facility] Last Admin: 11/03/16 10:34 Dose: 320 mg Warfarin Sodium (Coumadin) 5 mg PO 1800 [facility] PRN Reason: Protocol - Labs Labs: 11/01/16 05:33 11/01/16 05:33 PT 20.0 Seconds (9.9-11.8) H 11/01/16 05:33 INR 1.85 (0.93-1.08) H 11/01/16 05:33 APTT 39.9 Seconds (23.7-30.8) H 10/23/16 05:40 - Constitutional Appears: Well, Non-toxic, No Acute Distress - Extremities Exam Additional comments: Lower extremity focused exam Vasc: DP and PT pulses non-palpable B/L secondary to edema. +1 pitting edema noted to left lower extremity. CFT < 4 seconds to digits 1-5 B/L. Derm: Left: Full thickness ulceration with necrotic central eschar noted to medial aspect of left hallux measuring approximately 4.3 cm x 3.6cm. Marita-wound margins absent maceration. Fibrotic wound border noted. No serous drainage noted at this time. No malodor, no fluctuance or other clinical signs of infection are noted at this time. Right: Ischemic changes seen on 10/29/16 are resolved at this time Neuro: Gross sensation diminished b/l Ortho: Mild tenderness noted on palpation of dorsal hallux - Neurological Exam Neurological Exam: Alert, Awake, Oriented x3 Assessment and Plan - Assessment and Plan (Free Text) Assessment: 71 year old female with 1) Left hallux ulceration secondary to DM and PVD. 2) Left lower leg vasculopathy Plan: Patient seen and treated at bedside with attending, Dr. Hoffman. Charts, labs and vitals reviewed; afebrile. Left foot ulcer dressed with Betadine & DSD. -Extensive discussion had with patient by Dr. Hoffman. Details risk, benefits, and complications for the following treatment options: amputation of left hallux vs sharp debridement of ulcer base. Discussed negative MRI finding and due to pt's vascular compromise an amputation of the digit is recommended. Educated pt however the vascular compromise will likely impede the healing process to the point healing may not occur and additional surgical intervention may be necessitated. 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 However, due to the depth of the ulceration, debridement attempts will likely compromise cortical bone and introduce infective agent into medullary bone leading to osteomyelitis and potential sepsis. -Pt verbalizes understanding and will take time decided on her preferred treatment option. Continue IV abx per ID Podiatry will continue to follow while patient is in house.
--- NOTE | 2016-11-03 18:33 | PN ---
DATE: 11/03/2016 REASON FOR CONSULTATION: Cardiac evaluation; coronary artery disease, one vessel; status post respiratory failure; intubated, subsequently extubated; chronic atrial fibrillation. SUBJECTIVE: Denies any chest pain, shortness of breath, or any palpitations. Lying flat on the bed. OBJECTIVE: GENERAL: Comfortably lying on the bed, not in distress. VITAL SIGNS: As follows, temperature afebrile, heart rate 82, blood pressure 164/86. HEENT: PERRLA. Extraocular muscles intact. NECK: Supple. No carotid bruit. No thyromegaly. CHEST: Clear to auscultation. HEART: S1 and S2 regular. ABDOMEN: Soft. EXTREMITIES: Clubbing and cyanosis negative. LABORATORY DATA: Blood workup as follows: WBC 10.5, hemoglobin 9.9, hematocrit 31.8, platelet count 287. Chemistry shows sodium 130, potassium 4.9, chloride 93, carbon dioxide 39, anion gap of 11, BUN 32, creatinine 0.7. Total protein 6.1, albumin 3.5, albumin-globulin ratio 1.3. IMPRESSION: A 71-year-old female with a past medical history significant for one vessel coronary artery disease, right coronary artery totally occluded, chronic atrial fibrillation, anticoagulation, morbid obesity, active tobacco abuse, chronic atrial fibrillation on Coumadin, admitted with pneumonia, intubated subsequently extubated, re-intubated extubated, comfortable, history of moderate aortic stenosis, history of mild pulmonary hypertension, mitral regurgitation, tricuspid regurgitation, subtherapeutic INR, acute kidney injury resolved. RECOMMENDATIONS: Continue spironolactone. Continue diuretics. The patient is on 4 mg of Coumadin, we will increase to 5 mg from today. Follow up PT, INR in the morning. Depending upon tomorrow's INR, we will Coumadin will be given. We will follow with you. We will repeat the blood workup at the morning. We will discontinue telemetry. Thank you Dr. Kirby, for the opportunity in taking care of patient, Vee Santana. Brianna Sandra MD cc: Edwige Kirby MD
[2016-11-03 19:21] LABS: INR 2.27 (0.93-1.08); PROTHROMBIN TIME 24.5 Seconds (9.9-11.8)
[2016-11-04] MEDS: Pantoprazole 40 mg EC Tab PO SCH (06:06)
[2016-11-04 06:23] VITALS: TEMP 98.6; O2SAT 95
[2016-11-04 06:44] LABS: BASO # 0.02 K/mm3 (0.0-2.0); BASO % 0.3 % (0.0-3.0); EOS # 0.3 (0.0-0.7); EOS % 3.9 % (1.5-5.0); GRAN # 4.79 (1.4-6.5); HEMOGLOBIN 9.6 g/dL (12.0-16.0); LYMPH # 1.1 (1.2-3.4); LYMPH % 16.3 % (22.0-35.0); MEAN CELL VOLUME 87.6 fl (80.0-105.0); MEAN CORPUSCULAR HEMOGLOBIN 27.7 pg (25.0-35.0); MEAN CORPUSCULAR HGB CONC 31.7 g/dl (31.0-37.0); MONO # 0.7 (0.1-0.6); MONO % 10.5 % (1.0-6.0); PLATELET COUNT 297 10^3/uL (120.0-450.0); RBC 3.46 10^6/uL (3.5-6.1); RED CELL DISTRIBUTION WIDTH 17.1 % (11.5-14.5); WHITE BLOOD COUNT 6.9 10^3/ul (4.5-11.0)
[2016-11-04 06:54] LABS: INR 2.46 (0.93-1.08); PROTHROMBIN TIME 26.6 Seconds (9.9-11.8)
[2016-11-04 07:03] LABS: ALB/GLOB RATIO 1.3 (1.1-1.8); ALBUMIN 3.5 g/dL (3.0-4.8); ALT/SGPT 35 U/L (7-56); AST/SGOT 28 U/L (15-39); BLOOD UREA NITROGEN 35 mg/dL (7-21); CALCIUM 9.8 mg/dL (8.4-10.5); GFR AFRICAN-AMERICAN > 60; GFR NON-AFRICAN AMERICAN > 60; MAGNESIUM 1.8 mg/dL (1.7-2.2)
[2016-11-04] MEDS: Insulin Lispro (humaLOG) MEDIUM Coverage SC SCH ×3 (08:35→17:28)
[2016-11-04] MEDS: Tiotropium 18 mcg Cap For Inhalation IH SCH (11:19)
--- NOTE | 2016-11-04 11:56 | CP.PCM.PN ---
<Khris Rowland - Last Filed: 11/04/16 13:51> Subjective - Date & Time of Evaluation Date of Evaluation: 11/04/16 Time of Evaluation: 13:40 - Subjective Subjective: 71 year old female patient seen at bedside for left hallux ulceration and leg erythema. Pt is resting comfortably in bed and breathing normally at time of visit. Patient's responses are prompt and patient is alert awake, and oriented. Patient denies recent f/c/cp/sob.n/v. No new pedal complaints. Objective - Vital Signs/Intake and Output Vital Signs (last 24 hours): Temp Pulse Resp BP Pulse Ox 98.6 F 95 H 19 120/72 95 11/04/16 06:00 11/04/16 11:17 11/04/16 06:00 11/04/16 11:17 11/04/16 06:00 Intake and Output: 11/04/16 11/04/16 06:59 18:59 Intake Total 480 Balance 480 - Medications Medications: Current Medications Acetaminophen (Tylenol 325mg Tab) 650 mg PO Q6H PRN PRN Reason: Fever >100.4 F Last Admin: 11/03/16 16:35 Dose: 650 mg Aspirin (Ecotrin) 81 mg PO 0800 [facility] Last Admin: 11/04/16 08:35 Dose: 81 mg Furosemide (Lasix) 40 mg PO DAILY [facility] Last Admin: 11/04/16 11:17 Dose: 40 mg Guaifenesin (Robitussin) 200 mg PO Q4H PRN PRN Reason: Cough and congestion Last Admin: 11/01/16 14:45 Dose: 200 mg Hydralazine HCl (Apresoline) 50 mg PO BID [facility] Last Admin: 10/21/16 18:32 Dose: Not Given Hydralazine HCl (Apresoline) 10 mg IVP Q6 PRN PRN Reason: give for SBP above 150 Last Admin: 11/04/16 00:30 Dose: 10 mg Insulin Human Lispro (Humalog Med) 0 units SC ACHS [facility] PRN Reason: Protocol Last Admin: 11/04/16 08:35 Dose: 1 units Isosorbide Mononitrate (Imdur) 60 mg PO DAILY [facility] Last Admin: 10/21/16 09:54 Dose: Not Given Lactic Acid (Lac-Hydrin 12% Lotion (225 G)) 0 gm EXT BID [facility] Last Admin: 11/03/16 17:30 Dose: 1 applic Levalbuterol HCl (Xopenex) 1.25 mg IH [id number] PRN PRN Reason: Shortness of Breath Last Admin: 10/31/16 08:00 Dose: 1.25 mg Metoprolol Tartrate (Lopressor) 25 mg PO BID [facility] Last Admin: 11/04/16 11:17 Dose: 25 mg Mupirocin (Bactroban Ointment) 0 gm TOP BID [facility] Last Admin: 11/03/16 17:31 Dose: Not Given Nicotine (Nicoderm Cq) 1 patch TD DAILY [facility] Last Admin: 11/04/16 11:16 Dose: 1 patch Nystatin/Triamcinolone Acetonide (Nystatin/Triamcinolone Cream) 0 ea TOP BID [facility] Last Admin: 11/03/16 19:54 Dose: 1 applic Pantoprazole Sodium (Protonix Ec Tab) 40 mg PO 0600 [facility] Last Admin: 11/04/16 06:06 Dose: 40 mg Risperidone (Risperdal Tab) 0.25 mg PO BID [facility] PRN Reason: Protocol Last Admin: 11/04/16 11:08 Dose: 0.25 mg Spironolactone (Aldactone) 25 mg PO DAILY [facility] Last Admin: 11/04/16 11:18 Dose: 25 mg Tiotropium [place] (Spiriva) 18 mcg IH DAILY [facility] Last Admin: 11/04/16 11:19 Dose: 18 mcg Valsartan (Diovan) 320 mg PO DAILY [facility] Last Admin: 11/04/16 11:17 Dose: 320 mg Warfarin Sodium (Coumadin) 4 mg PO 1800 [facility] PRN Reason: Protocol - Labs Labs: 11/04/16 05:45 11/04/16 05:45 PT 26.6 Seconds (9.9-11.8) H 11/04/16 05:45 INR 2.46 (0.93-1.08) H 11/04/16 05:45 APTT 39.9 Seconds (23.7-30.8) H 10/23/16 05:40 - Constitutional Appears: Well, Non-toxic, No Acute Distress - Extremities Exam Additional comments: Lower extremity focused exam Vasc: DP and PT pulses non-palpable B/L secondary to edema. +1 pitting edema noted to left lower extremity. CFT < 4 seconds to digits 1-5 B/L. Derm: Left: Full thickness ulceration with necrotic central eschar noted to medial aspect of left hallux measuring approximately 4.3 cm x 3.6cm. Marita-wound margins absent maceration. Fibrotic wound border noted. Distal phalynx base flare noted and prominent at center of ulcer bed. No serous drainage or exudate noted at this time. No malodor, no fluctuance or other clinical signs of infection are noted at this time. Neuro: Gross sensation diminished b/l Ortho: Mild tenderness noted on palpation of dorsal hallux - Neurological Exam Neurological Exam: Alert, Awake, Oriented x3 - Psychiatric Exam Psychiatric exam: Normal Affect, Normal Mood Assessment and Plan - Assessment and Plan (Free Text) Assessment: 71 year old female with 1) Left hallux ulceration secondary to DM and PVD. 2) Left lower leg vasculopathy Plan: Patient seen and treated at bedside with attending, Dr. Henriquez. Charts, labs and vitals reviewed; afebrile, WBC 6.9 Left foot ulcer dressed with betadine and DSD Discussed with pt need for surgical intervention as ulceration site is continueing to demarcate. Vasculopathy makes heaing unlikely and removal of necrotic area indicated. Continue IV abx per ID. Podiatry will continue to follow while patient is in house <Deric Henriquez - Last Filed: 11/05/16 16:49> Objective - Vital Signs/Intake and Output Vital Signs (last 24 hours): Temp Pulse Resp BP Pulse Ox 98.6 F 75 19 96/53 L 95 11/04/16 18:00 11/04/16 18:00 11/04/16 18:00 11/04/16 18:00 11/04/16 06:00 - Labs Labs: 11/04/16 05:45 11/04/16 05:45 PT 26.6 Seconds (9.9-11.8) H 11/04/16 05:45 INR 2.46 (0.93-1.08) H 11/04/16 05:45 APTT 39.9 Seconds (23.7-30.8) H 10/23/16 05:40 Attending/Attestation - Attestation I have personally seen and examined this patient.: Yes I have fully participated in the care of the patient.: Yes I have reviewed all pertinent clinical information, including history, physical exam and plan: Yes
--- NOTE | 2016-11-04 12:00 | DS ---
HISTORY OF PRESENT ILLNESS: The patient is a 71-year-old female seen and examined, lying in bed, seems to be comfortable not in any acute distress. No nausea or vomiting and no diarrhea. Eating and tolerating. She complained of foot pain and complained of leg pain. PHYSICAL EXAMINATION: VITAL SIGNS: The patient is afebrile, pulse is 82, respirations are 18, and blood pressure is 164/86. LUNGS: Bilateral fair air flow. Soft crackles. HEART: S1 and S2 audible with systolic murmur. Regular rate control. ABDOMEN: Soft, obese, and nontender. No rebound. No guarding. NEUROLOGIC: The patient is awake and alert. Able to communicate. EXTREMITIES: Bilateral leg +2 edema with left banks erythema. Left foot is in the dressing. Left big toe MRI shows no osteomyelitis. LABORATORY DATA: Chemistries: Blood sugar is 238. Urine on 10/20/2016 growing Klebsiella. ASSESSMENT: 1. Status post respiratory failure. 2. Status post chronic obstructive pulmonary disease exacerbation. 3. Congestive heart failure, acute on chronic systolic, stable now. 4. Klebsiella pneumoniae urinary tract infection. 6. Pseudomonas aeruginosa, wound infection. 7. Coronary artery disease. 8. History of gastrointestinal malformation. 9. Chronic anemia. PLAN: Currently, the patient is on hydralazine, spironolactone, we will continue her on Coumadin 4 mg daily. I will order for PT and INR in a.m. The patient finished her course of antibiotic, this was discussed with Dr. Palomino, no more need for antibiotic and discussed with social service assistant. We will make a plan to transfer her to subacute rehab. If the bed is available, the patient can be transfer to subacute rehab under Dr. Wooten's service. Edwige Kirby MD
--- NOTE | 2016-11-04 15:18 | PN ---
DATE: 11/04/2016 CONSULTING PHYSICIAN: Dr. Brianna Sandra. REASON FOR CONSULTATION: Cardiac evaluation, coronary artery disease, status post intubated and subsequently extubated, history of coronary artery disease, history of atrial fibrillation. SUBJECTIVE: Denies any chest pain, shortness of breath, or any palpitations. OBJECTIVE: GENERAL: Sitting in the bed comfortably, not in apparent distress. VITAL SIGNS: Temperature afebrile, heart rate 80, blood pressure 141/79. HEENT: PERRLA. Extraocular muscles intact. NECK: Supple. No carotid bruit or thyromegaly. CHEST: Clear to auscultation. HEART: S1 and S2 regular. ABDOMEN: Soft. EXTREMITIES: Clubbing and cyanosis negative. LABORATORY DATA: Blood workup as follows: WBC 6.9, hemoglobin 9.6, hematocrit 30.3, platelets count 297. Chemistry shows sodium 130, potassium 4.0, chloride 94, carbon dioxide 33, anion gap of 13, BUN 35, creatinine 0.7. Total protein 6.2, albumin 3.5, albumin-globulin ratio 1.3. IMPRESSION: A 71-year-old female with past medical history of significant morbid obesity, diabetes, hypertension, hyperlipidemia, coronary artery disease, one-vessel coronary artery disease, chronic atrial fibrillation on Coumadin, admitted with acute exacerbation of chronic obstructive pulmonary disease, pneumonia, decompensated heart failure, intubated and subsequently extubated, re-intubated again, now the patient is stable. Denies any chest pain, shortness of breath, or any palpitation. The patient may be troponin positive secondary to hemodynamic instability, maximum troponin was 0.72 because the patient had one-vessel coronary artery disease, history of chronic atrial fibrillation and obesity. RECOMMENDATIONS: We will decrease dose of Coumadin to 4 mg from tomorrow. Continue valsartan. Continue isosorbide dinitrate. Continue metoprolol. Discontinue telemetry. Followup PT/INR in the morning. Thank you Dr. Kirby, for providing the opportunity in taking care of the patient. We will follow with you. I will change the Coumadin to 4 mg from tomorrow to prevent over shoot. PT/ INR in the morning Brianna Sandra MD cc: Edwige Kirby MD
[2016-11-04] MEDS: Ammonium Lactate 12% Lotion (225 g) EXT SCH ×2 (15:30→17:30)
[2016-11-04] MEDS: Nystatin-Triamcinolone Cream(30 gm) TOP SCH ×2 (15:31→17:30)
--- NOTE | 2016-11-04 15:58 | CP.PCM.PN ---
Subjective - Date & Time of Evaluation Date of Evaluation: 11/04/16 Time of Evaluation: 10:05 - Subjective Subjective: Comfortable in bed, not in distress, afebrile. Objective - Vital Signs/Intake and Output Vital Signs (last 24 hours): Temp Pulse Resp BP Pulse Ox 98.6 F 90 19 141/79 95 11/04/16 06:00 11/04/16 06:00 11/04/16 06:00 11/04/16 06:00 11/04/16 06:00 Intake and Output: 11/04/16 11/04/16 06:59 18:59 Intake Total 480 Balance 480 - Medications Medications: Current Medications Acetaminophen (Tylenol 325mg Tab) 650 mg PO Q6H PRN PRN Reason: Fever >100.4 F Last Admin: 11/03/16 16:35 Dose: 650 mg Aspirin (Ecotrin) 81 mg PO 0800 [facility] Last Admin: 11/03/16 07:47 Dose: 81 mg Furosemide (Lasix) 40 mg PO DAILY [facility] Last Admin: 11/03/16 10:34 Dose: 40 mg Guaifenesin (Robitussin) 200 mg PO Q4H PRN PRN Reason: Cough and congestion Last Admin: 11/01/16 14:45 Dose: 200 mg Hydralazine HCl (Apresoline) 50 mg PO BID [facility] Last Admin: 10/21/16 18:32 Dose: Not Given Hydralazine HCl (Apresoline) 10 mg IVP Q6 PRN PRN Reason: give for SBP above 150 Last Admin: 11/04/16 00:30 Dose: 10 mg Insulin Human Lispro (Humalog Med) 0 units SC ACHS [facility] PRN Reason: Protocol Last Admin: 11/03/16 22:30 Dose: Not Given Isosorbide Mononitrate (Imdur) 60 mg PO DAILY [facility] Last Admin: 10/21/16 09:54 Dose: Not Given Lactic Acid (Lac-Hydrin 12% Lotion (225 G)) 0 gm EXT BID [facility] Last Admin: 11/03/16 17:30 Dose: 1 applic Levalbuterol HCl (Xopenex) 1.25 mg IH [id number] PRN PRN Reason: Shortness of Breath Last Admin: 10/31/16 08:00 Dose: 1.25 mg Metoprolol Tartrate (Lopressor) 25 mg PO BID [facility] Last Admin: 11/03/16 17:28 Dose: 25 mg Mupirocin (Bactroban Ointment) 0 gm TOP BID [facility] Last Admin: 11/03/16 17:31 Dose: Not Given Nicotine (Nicoderm Cq) 1 patch TD DAILY [facility] Last Admin: 11/03/16 10:33 Dose: 1 patch Nystatin/Triamcinolone Acetonide (Nystatin/Triamcinolone Cream) 0 ea TOP BID [facility] Last Admin: 11/03/16 19:54 Dose: 1 applic Pantoprazole Sodium (Protonix Ec Tab) 40 mg PO 0600 [facility] Last Admin: 11/04/16 06:06 Dose: 40 mg Risperidone (Risperdal Tab) 0.25 mg PO BID [facility] PRN Reason: Protocol Last Admin: 11/03/16 19:08 Dose: 0.25 mg Spironolactone (Aldactone) 25 mg PO DAILY [facility] Last Admin: 11/03/16 10:33 Dose: 25 mg Tiotropium [place] (Spiriva) 18 mcg IH DAILY [facility] Last Admin: 11/03/16 10:34 Dose: 18 mcg Valsartan (Diovan) 320 mg PO DAILY [facility] Last Admin: 11/03/16 10:34 Dose: 320 mg Warfarin Sodium (Coumadin) 5 mg PO 1800 [facility] PRN Reason: Protocol Last Admin: 11/03/16 19:53 Dose: 5 mg - Labs Labs: 11/04/16 05:45 11/04/16 05:45 PT 26.6 Seconds (9.9-11.8) H 11/04/16 05:45 INR 2.46 (0.93-1.08) H 11/04/16 05:45 APTT 39.9 Seconds (23.7-30.8) H 10/23/16 05:40 - Constitutional Appears: Non-toxic, No Acute Distress - Head Exam Head Exam: NORMAL INSPECTION - ENT Exam ENT Exam: Mucous Membranes Moist - Neck Exam Neck Exam: absent: Meningismus - Respiratory Exam Respiratory Exam: Decreased Breath Sounds - Cardiovascular Exam Cardiovascular Exam: +S1, +S2 - GI/Abdominal Exam GI & Abdominal Exam: Soft. absent: Tenderness Assessment and Plan - Assessment and Plan (Free Text) Plan: Assessment S/P sepsis from UTI, and cellulitis of the left foot, clinically improved and S/ P treatment S/P Ventilator-dependent respiratory failure probably from pulmonary edema hypoventilation R/O aspiration pneumonia, healthcare-associated history of infected diabetic ulceration of the left hallux associated with trauma with probable peripheral vascular disease, growing MRSA - no evidence of osteomyelitis on MRI - S/P arthrectomy and angioplasty of left sided lower extremity vasculature S/P Sepsis with acute hypoxic respiratory failure secondary to left-sided healthcare-associated pneumonia with possible gram positive cocci and/or gram negative bacilli, clinically improved and S/P treatment as well as sepsis from persistent methicillin-resistant coagulase negative staph bacteremia , probably port infection S/P removal of the port history of Group G Strep bacteremia history of E. coli UTI history of healthcare-associated pneumonia acute renal failure obesity with BMI 38 CAD GERD arthritis history of bilateral knee replacements chronic CHF COPD DM history of breast CA History of Strep bovis bacteremia (2012) S/P Port-a-cath placement Plan completed 10 days of Zyvox and Merrem; toe cx grew E. faecalis and Pseudomonas, urine grew Klebsiella will continue to follow clinically off antibiotics since she is at risk for hospital-acquired infections
[2016-11-04 18:08] VITALS: BP 96/53; PULSE 75; RESP 19
--- NOTE | 2016-11-04 22:49 | PN ---
DATE: 11/04/2016 SUBJECTIVE: The patient is currently seen on telemetry. She states that she will be leaving later today to go to [facility] for rehabilitation and wound care. The patient is currently off all antibiotic therapy. MEDICATIONS: Medication list reviewed. The patient is currently on Aldactone, hydralazine, mupirocin, Coumadin, Diovan, Ecotrin, insulin, Lac-Hydrin, oral Lasix, Lopressor, Nicoderm subq, Nystatin and Triamcinolone cream, Protonix, Risperdal, Robitussin, Spiriva, Tylenol p.r.n., and Xopenex p.r.n. OBJECTIVE: INTAKE/OUTPUT: Intake is 840 and output is not charted. VITAL SIGNS: Blood pressure is 92/56, pulse is 88, temperature 98.6 and respiratory rate 20. HEENT: The patient is sitting in a chair on telemetry. Normocephalic and atraumatic. Conjunctivae are pale. Sclerae anicteric. NECK: Supple. No neck vein distention. CHEST: Clear to auscultation and percussion with slight decreased breath sounds at the bases. Scattered rhonchi. No rales or wheezing. CARDIOVASCULAR: Shows regular S1 and S2. No audible murmurs, rubs or gallops noted. ABDOMEN: Obese. Nondistended. Soft and nontender. Bowel sounds are normal. No rebound. No guarding. EXTREMITIES: Show dressing over her left foot. She has trace edema of her lower extremity bilaterally. LABORATORY DATA AND IMAGING: CBC today white blood cell count down to 6.9, hemoglobin 9.6 and platelet count of 297,000. Chemistry showed normal electrolytes. CO2 is 33, BUN 35 with a creatinine of 0.7. Glucose is 155. Calcium, phosphorus, and magnesium levels are normal. Liver enzymes are normal. Alkaline phosphatase is 161 with an albumin of 3.5. Microbiology was positive for Klebsiella in her urine, pseudomonas and enterococcus from her left toe. The patient has completed a course of antibiotics. ASSESSMENT: 1. Stable renal parameters. The patient is mildly prerenal on diuretic therapy for lower extremity edema. 2. Elevated bicarbonate level secondary to CO2 retention. The patient is in a compensated state. 3. Klebsiella urinary tract infection, treated with appropriate antibiotic therapy. 4. Status post lower extremity cellulitis and left foot toe infection, positive for Pseudomonas and Enterococcus. The patient completed a course of antibiotic therapy. 5. History of anemia in part secondary to bone marrow suppression from infection, in part secondary to low iron saturations. The patient had received iron supplements during the hospitalization. 6. History of obesity. 7. History of bfi-htyzvxy-tbuvlsded diabetes mellitus. Sugar control is acceptable. 8. History of hypertension, blood pressure control is in the low normal range on present medication. Medications are held on a p.r.n. basis. 9. History of peripheral vascular disease status post angioplasty, currently stable. PLAN: 1. Agree with decision for the patient to continue rehabilitation and wound care at perhaps [facility]. 2. The patient may continue oral iron supplements upon discharge, post IV Venofer. 3. The patient may continue low-dose diuretic therapy together with Aldactone for lower extremity edema and to maintain the potassium level in the normal range. 4. Close renal followup will be discontinued as the patient is likely being discharged later today. El Walden MD
--- NOTE | 2016-11-05 10:47 | DS ---
HISTORY OF PRESENT ILLNESS: The patient is 71 years old, seen and examined, doing well. Eating and tolerating. Complained of mild shortness of breath. PHYSICAL EXAMINATION: GENERAL: She is awake, alert and communicative. VITAL SIGNS: She is afebrile, pulse 80, respirations 20 and blood pressure 120/72. LUNGS: Bilateral fair air flow. No rhonchi or crackle. HEART: S1 and S2 audible. ABDOMEN: Soft and nontender. No rebound. No guarding. NEUROLOGIC: The patient is awake, alert and communicative. LABORATORY DATA: WBC 6.9, hemoglobin 9.6, hematocrit 30 and platelet of 297. PT 26.6 and INR 2.46. Chemistry: Sodium 136, potassium 4.4, chloride 94, CO2 is 33, BUN 35, creatinine 0.7 and blood sugar of 220. ASSESSMENT: 1. Status post respiratory failure. 2. Hypertension. 3. Hyperlipidemia. 4. Coronary artery disease. 5. Xin-fslqokf-hiqlcxnlm diabetes. 6. Chronic obstructive pulmonary disease. 7. Severe peripheral vascular disease, status post angioplasty. 8. Left leg cellulitis. 9. Left toe cellulitis. PLAN: The patient finished her course of antibiotic. She is awaiting transfer to subacute rehab. Once the bed is available, she can be transferred to subacute rehab. She is off antibiotic. Edwige Kirby MD
== END 2016-11-04 19:40 | DRG 871 ==
LOC: ED 16:12 → ERH 20:18 → CCU 22:21 → 5RSO 10-24 15:24 → CCU 10-24 17:57 → 2RNO 11-01 15:36
PROVIDERS: ADMIT Internal Medicine; ATTEND Internal Medicine
PROC: 30233N1 Transfusion of Nonautologous Red Blood Cells into Peripheral Vein, Percutaneous Approach (ICD-10-PCS; 2016-10-21)
PROC: 5A09457 Assistance with Respiratory Ventilation, 24-96 Consecutive Hours, Continuous Positive Airway Pressure (ICD-10-PCS; 2016-10-22)
PROC: 5A1945Z Respiratory Ventilation, 24-96 Consecutive Hours (ICD-10-PCS; principal; 2016-10-24)
PROC: 0BH17EZ Insertion of Endotracheal Airway into Trachea, Via Natural or Artificial Opening (ICD-10-PCS; 2016-10-24)
DX: A41.9 Sepsis, unspecified organism (principal); N17.0 Acute kidney failure with tubular necrosis; J96.01 Acute respiratory failure with hypoxia; J69.0 Pneumonitis due to inhalation of food and vomit; I50.43 Acute on chronic combined systolic (congestive) and diastolic (congestive) heart failure; I46.9 Cardiac arrest, cause unspecified; R65.21 Severe sepsis with septic shock; I42.9 Cardiomyopathy, unspecified; K76.1 Chronic passive congestion of liver; I48.92 Unspecified atrial flutter; I48.2 Chronic atrial fibrillation; J44.1 Chronic obstructive pulmonary disease with (acute) exacerbation; L03.115 Cellulitis of right lower limb; N39.0 Urinary tract infection, site not specified; L03.116 Cellulitis of left lower limb; I13.0 Hypertensive heart and chronic kidney disease with heart failure and stage 1 through stage 4 chronic kidney disease, or unspecified chronic kidney disease; Z99.11 Dependence on respirator [ventilator] status; E83.42 Hypomagnesemia; B37.3 Candidiasis of vulva and vagina; E11.22 Type 2 diabetes mellitus with diabetic chronic kidney disease; E11.51 Type 2 diabetes mellitus with diabetic peripheral angiopathy without gangrene; E66.01 Morbid (severe) obesity due to excess calories; B96.1 Klebsiella pneumoniae [K. pneumoniae] as the cause of diseases classified elsewhere; B96.5 Pseudomonas (aeruginosa) (mallei) (pseudomallei) as the cause of diseases classified elsewhere; I25.10 Atherosclerotic heart disease of native coronary artery without angina pectoris; D50.9 Iron deficiency anemia, unspecified; F17.200 Nicotine dependence, unspecified, uncomplicated; E78.5 Hyperlipidemia, unspecified; L03.032 Cellulitis of left toe; B37.2 Candidiasis of skin and nail; Z96.653 Presence of artificial knee joint, bilateral; N18.9 Chronic kidney disease, unspecified; M19.90 Unspecified osteoarthritis, unspecified site; E87.6 Hypokalemia; K21.9 Gastro-esophageal reflux disease without esophagitis; I27.2 Other secondary pulmonary hypertension; E11.621 Type 2 diabetes mellitus with foot ulcer; L97.529 Non-pressure chronic ulcer of other part of left foot with unspecified severity; I08.3 Combined rheumatic disorders of mitral, aortic and tricuspid valves; E11.649 Type 2 diabetes mellitus with hypoglycemia without coma; D63.8 Anemia in other chronic diseases classified elsewhere; Z85.3 Personal history of malignant neoplasm of breast; Z79.01 Long term (current) use of anticoagulants; Z79.84 Long term (current) use of oral hypoglycemic drugs

== ENCOUNTER 2016-11-20 18:19 | Inpatient (IN) | payer MEDICARE, OTHER ==
[2016-11-20] MEDS ORDERED: Vancomycin 1gm in NS 250ml 1 GM/250 ML BAG IVPB STA (19:02)
--- NOTE | 2016-11-20 19:08 | ED PDOC ---
Arrival/HPI - General Chief Complaint: Lower Extremity Problem/Injury Time Seen by Provider: 11/20/16 18:52 Historian: Patient - History of Present Illness Narrative History of Present Illness (Text): 11/20/16 19:00 Esther Baxter is a 71 year old female, whose past medical history includes diabetes , COPD, hyperlipidemia, CHF, anemia, CAD, renal failure and Afib, presents to the Emergency department complaining of swelling with erythema on bilateral legs for the last couple of days but she says the left one is much worse and the left 1st toe is black. Patient also notes having a small mass on the left side of her head. Mass is not painful. She's not sure how long it's been there. She notes having an oxygen machine at home. Patient denies any chest pain, fever, chills, abdominal pain, or other complaints. PMD: Dr. Kirby Time/Duration: < week (couple of days) Symptom Onset: Sudden Symptom Course: Unchanged Modifying Factors (Text): None Context: Home Associated Symptoms (Text): leg swelling, erythema, and small mass on left side of head Past Medical History - Provider Review Nursing Documentation Reviewed: Yes - Infectious Disease Hx of Infectious Diseases: None - Tetanus Immunization Tetanus Immunization: Unknown - Reproductive Menopause: Yes - Cardiac Hx Congestive Heart Failure: Yes Hx Hypertension: Yes - Pulmonary Hx Chronic Obstructive Pulmonary Disease (COPD): Yes - Neurological Hx Neurological Disorder: Yes Hx Seizures: Yes - HEENT Hx HEENT Disorder: No - Renal Hx Renal Failure: Yes - Endocrine/Metabolic Hx Diabetes Mellitus Type 2: Yes Hx Hypothyroidism: Yes - Hematological/Oncological Hx Blood Disorders: Yes (sepsis) Hx Anemia: Yes (iron deficiency) Hx Cancer: Yes (left breast lumpectomy) Hx Chemotherapy: Yes - Integumentary Hx Dermatological Disorder: No - Musculoskeletal/Rheumatological Hx Arthritis: Yes - Gastrointestinal Hx Gastrointestinal Disorders: No - Genitourinary/Gynecological Hx Genitourinary Disorders: Yes (UTI) Hx Reproductive Disorders: No - Psychiatric Hx Psychophysiologic Disorder: Yes Hx Anxiety: Yes - Surgical History Hx Cardiac Catheterization: Yes Hx Joint Replacement: Yes Hx Orthopedic Surgery: Yes - Anesthesia Hx Anesthesia: Yes Hx Anesthesia Reactions: No Hx Malignant Hyperthermia: No - Suicidal Assessment Feels Threatened In Home Enviroment: No Family/Social History - Physician Review Nursing Documentation Reviewed: Yes Family/Social History: Unknown Family HX Smoking Status: Heavy Smoker > 10 Cigarettes Daily Hx Alcohol Use: No Hx Substance Use Treatment: No Allergies/Home Meds Allergies/Adverse Reactions: Allergies No Known Allergies Allergy (Verified 10/01/16 18:19) Home Medications: Home Meds Medication Instructions Recorded Confirmed Acetaminophen [Tylenol 325mg tab] 650 mg PO PRN PRN 11/20/16 11/20/16 Albuterol/Ipratropium [Duoneb 3 3 ml IH Q6 11/20/16 11/20/16 mg/0.5 mg (3 ml) UD] Insulin Lispro [humALOG] 0 11/20/16 Isosorbide Mononitrate [Imdur] 60 mg PO DAILY 11/20/16 11/20/16 Metoprolol Tartrate [Lopressor] 25 mg PO BID 11/20/16 11/20/16 Oxycodone HCl/Acetaminophen 5 mg PO Q6 PRN 11/20/16 11/20/16 [Endocet 325 mg-10 mg] Spironolactone [Aldactone] 25 mg PO DAILY 11/20/16 11/20/16 Warfarin [Coumadin] 2.5 mg PO 1800 11/20/16 11/20/16 guaiFENesin [Mucinex LA] 200 mg PO Q4 PRN 11/20/16 11/20/16 Review of Systems - Review of Systems Constitutional: absent: Fevers Cardiovascular: absent: Chest Pain Gastrointestinal: absent: Abdominal Pain, Diarrhea, Vomiting Genitourinary Female: absent: Dysuria Musculoskeletal: Other (leg swelling b/l; left lower leg redness) Skin: Other (small mass on the left side of her head) Neurological: absent: Headache, Dizziness Physical Exam Vital Signs Reviewed: Yes Vital Signs Temp Pulse Resp BP Pulse Ox 11/20/16 18:30 99.4 F 87 16 131/88 99 Temperature: Afebrile Blood Pressure: Normal Pulse: Regular Respiratory Rate: Normal Appearance: Positive for: Well-Appearing, Non-Toxic, Comfortable Pain Distress: None Mental Status: Positive for: Alert and Oriented X 3 - Systems Exam Head: Present: Atraumatic, Normocephalic, Other (1cm mass on the left side of head; nontender) Pupils: Present: PERRL Extroacular Muscles: Present: EOMI Conjunctiva: Present: Normal Mouth: Present: Moist Mucous Membranes Neck: Present: Normal Range of Motion Respiratory/Chest: Present: Clear to Auscultation, Good Air Exchange. No: Respiratory Distress, Accessory Muscle Use Cardiovascular: Present: Regular Rate and Rhythm, Normal S1, S2. No: Murmurs Abdomen: Present: Normal Bowel Sounds. No: Tenderness, Distention, Peritoneal Signs Back: Present: Normal Inspection Upper Extremity: Present: Normal Inspection. No: Cyanosis, Edema Lower Extremity: Present: Normal Inspection, Tenderness (left lower leg), Swelling (left lower leg > right lower leg), Erythema (left lower leg), Other ( Unable to palpate pedal pulses. Hallux toe is black gangrene. PT with doppler b/ l.). No: Edema Neurological: Present: GCS=15, CN II-XII Intact, Speech Normal Skin: Present: Warm, Dry, Normal Color. No: Rashes Psychiatric: Present: Alert, Oriented x 3, Normal Insight, Normal Concentration Medical Decision Making ED Course and Treatment: 11/20/16 Impression: 71 year old female with erythema, warmth, and tenderness to left lower leg with gangrene of 1st toe. Patient also has 1cm mass on left side of head. Plan: -- EKG -- Chest X-ray -- Labs -- Urinalysis -- Vancomycin and Zosyn -- Reassess and disposition Progress Notes: Below are results from previous MRI and US's reviewed by me. 11/20/16 19:40 Report Date: 10/21/2016 18:10 Lower extremity RAMON exam Ultrasound: Creator : Maldonado Wade MD FINDINGS: The resting RAMON's are mildly abnormal but are likely inaccurate due to calcification: Right, 0.79 and left, 0.75 The brachial systolic pressures are symmetric. The low thigh PVR waveforms are mildly to moderately blunted. This suggests aortoiliac disease. The calf PVR waveforms augment normally. There are significant gradients across both knees. This is consistent with bilateral distal SFA, popliteal, and/ or trifurcation disease IMPRESSION: 1. Mildly abnormal ABIs at rest. The ABIs may be inaccurate due to calcification. 2. Bilateral distal SFA, popliteal, and/or trifurcation disease. 3. Aortoiliac disease. 4. If clinically indicated, additional evaluation can be obtained through CTA runoff, MRA runoff, or conventional arteriogram 11/20/16 19:44 Report Date: 11/01/2016 12:40 MR Left Lower Extremity Without Intravenous Contrast, Foot: Creator : CAM KIM FINDINGS: LIGAMENTS: Medial collateral: Unremarkable. Lateral collateral: Unremarkable. Lisfranc: Unremarkable. Muscles: Unremarkable. Plantar fascia: There is a small plantar calcaneal spur with mild plantar fasciitis. Bones/joints: There is moderate hallux valgus deformity.There are moderate degenerative osteo-arthritic changes in the first metatarsophalangeal joint with joint space narrowing , subchondral sclerosis and osteophyte formation. Bone marrow signal intensity of the visualized osseous structures is unremarkable. No evidence for osteomyelitis, acute fracture or dislocation is seen. Soft tissues: There is mild diffuse soft tissue swelling in the dorsum of the foot consistent with cellulitis in the proper clinical setting.There is no evidence of focal fluid collections to suggest abscess formation. IMPRESSION: 1. There is moderate hallux valgus deformity.There are moderate degenerative osteo-arthritic changes in the first metatarsophalangeal joint with joint space narrowing , subchondral sclerosis and osteophyte formation. 2. Bone marrow signal intensity of the visualized osseous structures is unremarkable. No evidence for osteomyelitis, acute fracture or dislocation is seen. 3. There is mild diffuse soft tissue swelling in the dorsum of the foot consistent with cellulitis in the proper clinical setting.There is no evidence of focal fluid collections to suggest abscess formation. 4. There is a small plantar calcaneal spur with mild plantar fasciitis. 11/20/16 EKG: Ordered, reviewed, and independently interpreted the EKG. Rate : 82 BPM Rhythm : Afib Interpretation : Non-specific ST changes. No changes from previous EKG. Comparison : 10/28/2016 11/20/16 20:[address] Wooten who will admit to his service. He recommended Dr. Obrien for ID. Consult also placed with Dr. Hoffman for Podiatry. Potassium elevated and treated with Kayexalate. - Lab Interpretations Lab Results: 11/20/16 19:30 11/20/16 19:30 Lab Results 11/20/16 19:30: Sodium 140, Chloride 100, Potassium 5.2 H, Carbon Dioxide 30, Anion Gap 15, BUN 32 H, Creatinine 0.9, Est GFR ( Amer) > 60, Est GFR ( Non-Af Amer) > 60, Random Glucose 217 H, Calcium 9.6, Phosphorus 3.5, Magnesium 1.7, Total Bilirubin 0.3, AST 19, ALT 28, Alkaline Phosphatase 149 H, Total Protein 6.2, Albumin 3.5, Globulin 2.7, Albumin/Globulin Ratio 1.3 11/20/16 19:30: pO2 45, VBG pH 7.31 L, VBG pCO2 65.0 H, VBG HCO3 32.7 H, VBG Total CO2 34.7 H, VBG O2 Sat (Calc) 76.8 H, VBG Base Excess 5.3 H, VBG Potassium 4.7, Sodium 140.0, Chloride 104.0, Glucose 223 H, Lactate 3.2 H, FiO2 21.0, Venous Blood Potassium 4.7 11/20/16 19:30: PT 27.5 H, INR 2.55 H, APTT 42.2 H 11/20/16 19:30: WBC 10.3 D, RBC 3.23 L, Hgb 8.9 L, Hct 28.3 L, MCV 87.6, MCH 27.6, MCHC 31.4, RDW 16.9 H, Plt Count 240, MPV 8.8, Gran % 79.0 H, Lymph % ( Auto) 11.8 L, Jay % (Auto) 5.4, Eos % (Auto) 3.6, Baso % (Auto) 0.2, Gran # 8.13 H, Lymph # 1.2, Jay # 0.6, Eos # 0.4, Baso # 0.02 - RAD Interpretation Radiology Orders: 11/20/16 19:02 CHEST PORTABLE [RAD] Stat - EKG Interpretation Interpreted by ED Physician: Yes Type: 12 lead EKG - Medication Orders Current Medication Orders: Vancomycin HCl (Vancomycin 1gm) 1 gm in 250 mls @ 167 mls/hr IVPB STAT STA PRN Reason: Protocol Stop: 11/20/16 20:31 Last Admin: 11/20/16 19:45 Dose: 167 mls/hr Piperacillin Sod/Tazobactam Sod (Zosyn 4.5 Gm In Ns 100ml) 4.5 gm in 100 mls @ 200 mls/hr IVPB STAT STA PRN Reason: Protocol Stop: 11/20/16 20:23 Discontinued Medications Sodium Polystyrene Sulfonate (Kayexalate Oral Susp) 15 gm PO STAT STA Stop: 11/20/16 20:06 - Scribe Statement The provider has reviewed the documentation as recorded by the Scribe 11/20/2016 Savana Burton Provider Scribe Attestation: All medical record entries made by the Scribe were at my direction and personally dictated by me. I have reviewed the chart and agree that the record accurately reflects my personal performance of the history, physical exam, medical decision making, and the department course for this patient. I have also personally directed, reviewed, and agree with the discharge instructions and disposition. Disposition/Present on Arrival - Present on Arrival Any Indicators Present on Arrival: No History of DVT/PE: No History of Uncontrolled Diabetes: No Urinary Catheter: No History of Decub. Ulcer: No History Surgical Site Infection Following: None - Disposition Have Diagnosis and Disposition been Completed?: Yes Diagnosis: Toe gangrene, Cellulitis of leg Disposition: HOSPITALIZED Disposition Time: 20:27 Patient Plan: Admission Condition: FAIR Discharge Instructions (ExitCare): Cellulitis (ED)
[2016-11-20 19:45] LABS: BASO # 0.02 K/mm3 (0.0-2.0); BASO % 0.2 % (0.0-3.0); EOS # 0.4 (0.0-0.7); EOS % 3.6 % (1.5-5.0); GRAN # 8.13 (1.4-6.5); HEMATOCRIT 28.3 % (36.0-48.0); LYMPH # 1.2 (1.2-3.4); LYMPH % 11.8 % (22.0-35.0); MEAN CELL VOLUME 87.6 fl (80.0-105.0); MEAN CORPUSCULAR HEMOGLOBIN 27.6 pg (25.0-35.0); MEAN CORPUSCULAR HGB CONC 31.4 g/dl (31.0-37.0); MEAN PLATELET VOLUME 8.8 fl (7.0-11.0); MONO # 0.6 (0.1-0.6); MONO % 5.4 % (1.0-6.0); RED CELL DISTRIBUTION WIDTH 16.9 % (11.5-14.5); WHITE BLOOD COUNT 10.3 10^3/ul (4.5-11.0)
[2016-11-20 19:46] LABS: VENOUS BLOOD GAS BASE EXCESS 5.3 mmol/L (0.0-2.0); VENOUS BLOOD PH 7.31 (7.32-7.43)
[2016-11-20] MEDS ORDERED: Piperacill/Tazo 4.5gm in NS 4.5 GM/100 ML BAG IVPB STA (19:54)
[2016-11-20 19:56] LABS: INR 2.55 (0.93-1.08); PARTIAL THROMBOPLASTIN TIME 42.2 Seconds (23.7-30.8)
[2016-11-20 20:00] LABS: ALB/GLOB RATIO 1.3 (1.1-1.8); ALKALINE PHOSPHATASE 149 U/L (38-126); ALT/SGPT 28 U/L (7-56); AST/SGOT 19 U/L (14-36); BILIRUBIN,TOTAL 0.3 mg/dL (0.2-1.3); BLOOD UREA NITROGEN 32 mg/dL (7-21); CALCIUM 9.6 mg/dL (8.4-10.5); CARBON DIOXIDE 30 mmol/L (21-33); CHLORIDE 100 mmol/L (98-107); GFR AFRICAN-AMERICAN > 60; GLUCOSE,RANDOM 217 mg/dL (70-110); MAGNESIUM 1.7 mg/dL (1.7-2.2); PHOSPHOROUS 3.5 mg/dL (2.5-4.5); POTASSIUM 5.2 mmol/L (3.6-5.0); SODIUM 140 mmol/L (132-148); TOTAL PROTEIN 6.2 g/dL (5.8-8.3)
[2016-11-20] MEDS ORDERED: Sod Polystyrene Sulf 15 gm/60 ml Susp PO STA (20:05)
[2016-11-20] MEDS ORDERED: Albuterol-Ipratrop 3 mg / 0.5 (3 ml) UD IH PRN (21:40)
[2016-11-20 21:57] LABS: URINE BILIRUBIN NEGATIVE (NEGATIVE); URINE BLOOD NEGATIVE (NEGATIVE); URINE GLUCOSE (UA) NEGATIVE (NEGATIVE); URINE KETONE NEGATIVE (NEGATIVE); URINE LEUKOCYTE ESTERASE NEGATIVE Leu/uL (NEGATIVE); URINE PROTEIN NEGATIVE mg/dL (<30 mg/dL); URINE UROBILINOGEN 0.2 E.U./dL (<1 E.U./dL)
[2016-11-20 22:04] VITALS: BMI 41.1
[2016-11-20 22:04] LABS: URINE APPEARANCE CLEAR (CLEAR); URINE COLOR YELLOW (YELLOW)
[2016-11-20] MEDS ORDERED: Pneumococcal 23-Valent Vaccine IM ONE (22:05)
[2016-11-20 23:27] LABS: VENOUS BLOOD GAS BASE EXCESS 5.5 mmol/L (0.0-2.0); VENOUS BLOOD PH 7.37 (7.32-7.43)
[2016-11-21] MEDS: Piperacill/Tazo 4.5gm in NS 4.5 GM/100 ML BAG IVPB SCH ×5 (07:01→23:17)
--- NOTE | 2016-11-21 07:35 | RAD ---
HISTORY: Sepsis Patient COMPARISON: Portable chest 10/28/2016 FINDINGS: LUNGS: Patient rotated toward the left. Trace of pleural effusion is not excluded however no definite infiltrate is appreciated bilaterally and no effusion is seen the right. There is no pneumothorax bilaterally. Prominent PICC silhouette remains. No pulmonary derangement or pneumothorax. Trachea is midline. PLEURA: As per above. CARDIOVASCULAR: As per above. OSSEOUS STRUCTURES: No significant abnormalities. VISUALIZED UPPER ABDOMEN: Normal. OTHER FINDINGS: None. IMPRESSION: Trace of pleural effusion not excluded with cardiac silhouette remaining prominent. No acute infiltrate identified or pneumothorax bilaterally.
[2016-11-21] MEDS: Vancomycin 1gm in NS 250ml 1 GM/250 ML BAG IVPB SCH ×2 (08:09→18:51)
--- NOTE | 2016-11-21 11:06 | CP.PCM.PN ---
Subjective - Date & Time of Evaluation Date of Evaluation: 11/21/16 Time of Evaluation: 10:50 - Subjective Subjective: César Rodriguez D.O. PGY-2, D.O. On Duty (D.O.O.D.) Received page from RN that patient was having a nose bleed. Responded at bedside. Patient is a 71 year old female on coumadin. Per nursing staff patient had a scab on the left nostril that she may have picked at. Was on oxygen with NC. Nurse at bedside applying ice. Blood noted at left nares with active bleeding. Pressure was held for approximately 10 minutes and then the nose was re-evaluated. Small amount of coagulated blood noted at nares. No more active bleeding. Patient fully awake, alert, coherent, in no distress, not in pain, comfortably sitting. Repeat CBC and INR ordered. Currently had coumadin held by primary team. Changed nasal cannula to mask and used humidified air. Instructed nurse to use mask to avoid direct nasal air air for at least the next hour to 2 hours. Will continue humidified air to avoid re- bleeding. Dr. Oneill covering for Dr. Wooten seen at [facility], discussed aforementioned events with her in detail. Also discussed with Dr. May hospitalists. Objective - Vital Signs/Intake and Output Vital Signs (last 24 hours): Temp Pulse Resp BP Pulse Ox 98.7 F 86 20 146/88 100 11/21/16 08:11 11/21/16 08:11 11/21/16 08:11 11/21/16 08:11 11/21/16 08:11 - Medications Medications: Current Medications Acetaminophen (Tylenol 325mg Tab) 650 mg PO Q4H PRN PRN Reason: Fever >100.5 F Albuterol/Ipratropium (Duoneb 3 Mg/0.5 Mg (3 Ml) Ud) 3 ml IH Q3H PRN PRN Reason: Shortness of Breath Vancomycin HCl (Vancomycin 1gm) 1 gm in 250 mls @ 167 mls/hr IVPB Q12H WAYNE PRN Reason: Protocol Last Admin: 11/21/16 08:09 Dose: 167 mls/hr Piperacillin Sod/Tazobactam Sod (Zosyn 4.5 Gm In Ns 100ml) 4.5 gm in 100 mls @ 200 mls/hr IVPB Q6 WAYNE PRN Reason: Protocol Stop: 11/28/16 00:01 Last Admin: 11/21/16 08:05 Dose: Not Given Ondansetron HCl (Zofran Inj) 4 mg IVP Q4H PRN PRN Reason: Nausea/Vomiting - Labs Labs: PT 27.5 Seconds (9.9-11.8) H 11/20/16 19:30 INR 2.55 (0.93-1.08) H 11/20/16 19:30 APTT 42.2 Seconds (23.7-30.8) H 11/20/16 19:30
[2016-11-21] MEDS ORDERED: Permethrin 5% Cream(60 gm) TOP ONE (11:18)
--- NOTE | 2016-11-21 11:31 | CARD ---
APPROVED REPORT EKG Measurement Heart [id number] <Conclusion> Atrial fibrillation Baseline artifact Inferior infarct, age indeterminate Anteroseptal infarct, age undetermined T wave abnormality, consider lateral ischemia Abnormal ECG
[2016-11-21 11:55] LABS: HEMATOCRIT 29.7 % (36.0-48.0); MEAN CELL VOLUME 87.4 fl (80.0-105.0); MEAN CORPUSCULAR HEMOGLOBIN 27.1 pg (25.0-35.0)
[2016-11-21 12:03] LABS: INR 1.95 (0.93-1.08)
[2016-11-21] MEDS: Insulin Lispro (humaLOG) MEDIUM Coverage SC SCH ×3 (12:11→21:32)
--- NOTE | 2016-11-21 12:45 | RAD ---
PROCEDURE: Left Foot Radiographs. HISTORY: left hallux ulcer COMPARISON: 10/06/2016 FINDINGS: BONES: There is a cortical defect along the medial margin of the 1st proximal phalanx as well as a bony lucency in the distal aspect of the 1st proximal phalanx. Findings are consistent with osteomyelitis. This is the site of the soft tissue ulcer. This bony erosion was not present on the previous study JOINTS: Normal. SOFT TISSUES: Normal. OTHER FINDINGS: None. IMPRESSION: Probable osteomyelitis distal aspect the 1st proximal phalanx
--- NOTE | 2016-11-21 14:04 | CON ---
HISTORY OF PRESENT ILLNESS: A 71-year-old female seen at bedside for continued evaluation and management of an increasingly gangrenous left diabetic hallux ulceration. The patient had undergone a successful angioplasty in September by Dr. Maldonado Barnett. She had palpable pulses at that time but in ensuing 6 weeks the wound has gotten increasingly gangrenous. The patient was seen by myself at [facility] and the wound did not respond to aggressive local wound care. MEDICAL HISTORY: Significant for type 1 diabetes with peripheral arterial disease, CAD, renal failure, AFib, CHF, hyperlipidemia, COPD. ALLERGIES: THE PATIENT HAS NO KNOWN DRUG ALLERGIES. MEDICATIONS: All medications are noted in MAR. SOCIAL HISTORY: The patient was a heavy smoker for over 50 years. She denies illicit drug use. There is no history of alcohol abuse. PAST SURGICAL HISTORY: Includes recent vascular intervention in September of this year as well as bilateral knee replacements. LABORATORY FINDINGS: Reveal a white count of 10.3, hemoglobin of 8.9, hematocrit of 28.3, platelet count of 169. Her ESR is elevated at 100. There is no microbiology report at this time. There are no x-rays noted at this time. Vascular intervention performed on 09/27 reveals successful left posterior tibial artery angioplasty. OBJECTIVE: Nonpalpable pedal pulses noted bilaterally, +2 nonpitting lower extremity edema noted bilaterally. Absent pedal hair growth noted bilaterally. The patient is unable to detect 5.07 g monofilament wire testing bilaterally. Capillary filling time is delayed x10. There is noted to be full-thickness gangrenous ulceration on the dorsal aspect of the left hallux that measures approximately 2.5 x 2.2 x 0.2 cm. The base of the ulcer is primarily gangrenous. There is noted to be no granular tissue. The wound has no purulence. The wound does not probe to tendon or bone. There are no signs of abscess formation. ASSESSMENT: Diabetic gangrenous left hallux ulceration. PLAN: New culture was taken and submitted for sensitivities. We will order x-rays to rule out underlying osteomyelitis. Spoke with Dr. Maldonado Barnett at length. We stated that we will order new ABIs and PVRs and ascertain whether vascular intervention is feasible or even warranted at this time. Infectious disease note is warranted immediately to evaluate culture and sensitivity results. The wound was cleansed with normal sterile saline. We will apply Betadine and a dry sterile dressing. Spoke with Esther at length and explained to her that we are in a bit of conundrum as to whether or not we can amputate her left great toe. I explained to her that if we remove the toe when it does not heal, she is in jeopardy of losing her lower leg. At this point, we will order ABIs and PVRs before any surgical intervention is attempted. Deric Henriquez DPM
--- NOTE | 2016-11-21 15:12 | CON ---
DATE: 11/21/2016 LOCATIONS: The patient is in room 565 bed 2. CHIEF COMPLAINT: Left toe infection from several days. HISTORY OF PRESENT ILLNESS: This is a 71-year-old female with past medical history of coronary artery disease, GERD, arthritis, congestive heart failure, breast cancer, diabetes mellitus, history of Streptococcus bovis bacteremia, history of Port-A-Cath and who has had recent hospitalization this past September and October, admitted now with a left first toe gangrene and cellulitis. The patient was on ventilator in October and was treated with antibiotics at that time and now was admitted through the emergency room yesterday, was seen by Dr. Meraz. The patient had completed 10 days of Zyvox and meropenem for enterococcus faecalis pseudomonas for infection of the toe. Urine had grown Klebsiella. Now, admitted through the emergency room, Dr. Meraz had seen the patient yesterday in the emergency room. She had complaint of left toe infection from several days, foul odorous. The patient denies any fevers or chills. No nausea or vomiting at this time. No abdominal pain. No headaches, blurred vision, or neck pain. PAST MEDICAL HISTORY: Significant for breast cancer, diabetes, Streptococcus bovis bacteremia, renal disease, atrial fibrillation, coronary artery disease, GERD, arthritis, congestive heart failure, chronic obstructive lung disease, and anemia. PAST SURGICAL HISTORY: Port-A-Cath. ALLERGIES: THE PATIENT HAS NO KNOWN ALLERGIES. MEDICATIONS AT HOME: Include Coumadin, spironolactone, oxycodone, Lasix, metoprolol, and aspirin. PHYSICAL EXAMINATION: GENERAL: The patient is in bed in no acute distress. VITAL SIGNS: Temperature of 99.4, heart rate of 87, respiratory rate of 20, and blood pressure 131/88. HEENT: Unremarkable. NECK: Supple. LUNGS: Decreased breath sounds. HEART: Normal S1 and S2. ABDOMEN: Soft and nontender. No organomegaly. No rebound. No guarding. EXTREMITIES: Examination of the left big toe has large ulcer infected with erythema and foul odorous, necrotic area, it is the left big first toe. LABORATORY DATA: Reveals white count of 10.3, hemoglobin of 8, and platelets of 240. Chemistry reveals an BUN of 32 and creatinine 0.9. Urinalysis is noted. Microbiology is pending. Microbiology from previous admissions reviewed revealing Klebsiella in the urine and pseudomonas and enterococcus in the foot and the patient also had a chest x-ray, which is reported to be portable chest and no infiltrates. ASSESSMENT AND PLAN: This is a 71-year-old female with coronary artery disease, gastroesophageal reflux disease, breast cancer, diabetes, Streptococcus bovis bacteremia, renal disease, atrial fibrillation, arthritis, congestive heart failure, chronic obstructive pulmonary disease, anemia, with left first toe gangrene and cellulitis and must rule out underlying peripheral vascular disease. Recommend Dr. Maldonado Barnett for evaluation of vascular disease. Dr. Hoffman is on consult for podiatric care and we will start the patient on vancomycin and Zosyn. Pending culture, vascular, and podiatric workup. We will follow closely with you. The patient's creatinine is 0.9. Cultures were ordered of the blood, urine, and wound. Benjamin Obrien MD
--- NOTE | 2016-11-22 01:54 | HP ---
HISTORY OF PRESENT ILLNESS: Ms. Baxter is 71-year-old female with complex past medical history. She has history of diabetes mellitus, uncontrolled, COPD, hyperlipidemia, CHF, atrial fibrillation, chronic anemia, GERD. She presented to the ED with left toe swelling with blackish discoloration. She also has discharge from the left toe, she has it for the past few days. No fever. No cough. No chest pain. No bleeding from any site. Diabetes mellitus is uncontrolled. She has history of breast cancer in remission, left-sided. Also atrial fibrillation, heart rate controlled. She has chronic GI bleed, has chronic iron deficiency anemia, gets chronically IV iron and blood transfusions. PAST MEDICAL HISTORY: Atrial fibrillation, congestive cardiac failure, left breast cancer, COPD, coronary artery disease, chronic kidney disease, diabetes mellitus uncontrolled. PAST SURGICAL HISTORY: Lumpectomy, left-sided. ALLERGIES: NO KNOWN DRUG ALLERGIES. HOME MEDICATIONS: Spironolactone 25 mg daily, Coumadin 2.5 mg daily, insulin, Imdur 50 mg daily, albuterol p.r.n., Tylenol 650 q. 6 hours p.r.n. PERSONAL HISTORY: Continues to smoke more than 10 cigarettes a day, heavy smoker. No history of alcohol abuse. FAMILY HISTORY: No positive history in mother and father; noncontributory. SOCIAL HISTORY: Lives at home alone. PHYSICAL EXAMINATION: GENERAL: Comfortable in bed in no acute distress. VITAL SIGNS: Heart rate is 87 per minute, respiratory rate 16 per minute, blood pressure 130/80, pulse ox 99% room air, temperature 99.4. HEENT: Head is atraumatic, normocephalic. Oral mucosa moist. Morbidly obese. Pallor positive, normal. NECK: Supple. CARDIOVASCULAR: Heart rate irregularly irregular. No murmur, no gallop. RESPIRATORY: Air entry present and equal bilateral. No added sounds. ABDOMEN: Obese, nontender. EXTREMITIES: Left toe oozing pus, blackish discoloration of the left toe. SKIN: Pallor positive. No rash. NEUROLOGIC: Alert, oriented x3. Cranial nerves intact. Speech is normal. LABORATORY DATA: White count 10.3, hemoglobin 8.9, hematocrit 28.3, platelet count 240. Sodium 140, potassium 5.2, creatinine 0.5, glucose 217. Chest x-ray, no infiltrate. ASSESSMENT: 1. Left toe gangrene. 2. Diabetes mellitus, uncontrolled. 3. Hypertension. 4. Atrial fibrillation. 5. Chronic obstructive pulmonary disease. 6. History of breast cancer, left-sided. 7. Anemia. 8. Occult gastrointestinal bleed. PLAN: She will be admitted to tele-monitoring. Podiatry consultation with Dr. Hoffman requested, ID consultation with Dr. Obrien requested. IV antibiotics, Zosyn and vancomycin. We will continue cardiac medications. Hydralazine 50 mg p.o. b.i.d., Imdur 60 mg daily, metoprolol 25 mg p.o. b.i.d., Zofran 4 mg IV q. 4 hours p.r.n., spironolactone 25 mg daily, Ultram 50 mg p.o. t.i.d., p.r.n. for pain. Continue Diovan 320 mg p.o. daily, Coumadin 2.5 mg daily. We will monitor PT/INR, DuoNeb p.r.n. Suellen Oneill MD
[2016-11-22] MEDS: Piperacill/Tazo 4.5gm in NS 4.5 GM/100 ML BAG IVPB SCH ×4 (06:47→23:06)
[2016-11-22 07:12] LABS: HEMATOCRIT 28.2 % (36.0-48.0); MEAN CELL VOLUME 88.4 fl (80.0-105.0); MEAN CORPUSCULAR HEMOGLOBIN 27.3 pg (25.0-35.0); MEAN CORPUSCULAR HGB CONC 30.9 g/dl (31.0-37.0); MEAN PLATELET VOLUME 9.4 fl (7.0-11.0); WHITE BLOOD COUNT 9.5 10^3/ul (4.5-11.0)
[2016-11-22 07:18] LABS: INR 1.51 (0.93-1.08)
[2016-11-22 07:21] LABS: ALB/GLOB RATIO 1.2 (1.1-1.8); ALKALINE PHOSPHATASE 151 U/L (38-126); ALT/SGPT 29 U/L (7-56); AST/SGOT 22 U/L (14-36); BILIRUBIN,TOTAL 0.3 mg/dL (0.2-1.3); BLOOD UREA NITROGEN 17 mg/dL (7-21); CALCIUM 9.4 mg/dL (8.4-10.5); CARBON DIOXIDE 29 mmol/L (21-33); CHLORIDE 103 mmol/L (98-107); GFR AFRICAN-AMERICAN > 60; GLUCOSE,RANDOM 131 mg/dL (70-110); POTASSIUM 3.5 mmol/L (3.6-5.0); SODIUM 140 mmol/L (132-148); TOTAL PROTEIN 6.2 g/dL (5.8-8.3)
[2016-11-22] MEDS: Vancomycin 1gm in NS 250ml 1 GM/250 ML BAG IVPB SCH ×2 (07:27→18:17)
[2016-11-22] MEDS: Insulin Lispro (humaLOG) MEDIUM Coverage SC SCH ×4 (08:00→21:56)
--- NOTE | 2016-11-22 09:00 | CP.PCM.PN ---
<Monserrat Rodriguez - Last Filed: 11/22/16 09:06> Subjective - Date & Time of Evaluation Date of Evaluation: 11/22/16 Time of Evaluation: 08:56 - Subjective Subjective: Podiatry progress note for Dr. Henriquez 71 y/o female seen at bedside for left hallux gangrenous ulcer secondary to DM. Patient states she is experiencing pain that comes and goes but is doing ok overall. Patient denies any F/C/N/V/SOB. Patient's dressing has remained clean, dry and intact since yesterday's visit. Patient says she had new studies done to check the blood flow in her legs. Objective - Vital Signs/Intake and Output Vital Signs (last 24 hours): Temp Pulse Resp BP Pulse Ox 98.7 F 81 22 144/109 H 93 L 11/22/16 07:30 11/22/16 07:30 11/22/16 07:30 11/22/16 07:30 11/22/16 07:30 Intake and Output: 11/22/16 11/22/16 06:59 18:59 Intake Total 780 Balance 780 - Medications Medications: Current Medications Acetaminophen (Tylenol 325mg Tab) 650 mg PO Q4H PRN PRN Reason: Fever >100.5 F Albuterol/Ipratropium (Duoneb 3 Mg/0.5 Mg (3 Ml) Ud) 3 ml IH Q3H PRN PRN Reason: Shortness of Breath Furosemide (Lasix) 40 mg PO BID [facility] Hydralazine HCl (Apresoline) 50 mg PO BID [facility] Last Admin: 11/21/16 21:41 Dose: 50 mg Vancomycin HCl (Vancomycin 1gm) 1 gm in 250 mls @ 167 mls/hr IVPB Q12H [facility] PRN Reason: Protocol Last Admin: 11/22/16 07:27 Dose: 167 mls/hr Piperacillin Sod/Tazobactam Sod (Zosyn 4.5 Gm In Ns 100ml) 4.5 gm in 100 mls @ 200 mls/hr IVPB Q6 [facility] PRN Reason: Protocol Stop: 11/28/16 00:01 Last Admin: 11/22/16 06:47 Dose: 200 mls/hr Insulin Human Lispro (Humalog Med) 0 units SC ACHS [facility] PRN Reason: Protocol Last Admin: 11/21/16 21:32 Dose: Not Given Isosorbide Mononitrate (Imdur) 60 mg PO DAILY [facility] Metoprolol Tartrate (Lopressor) 25 mg PO BID [facility] Ondansetron HCl (Zofran Inj) 4 mg IVP Q4H PRN PRN Reason: Nausea/Vomiting Spironolactone (Aldactone) 25 mg PO DAILY [facility] Tramadol HCl (Ultram) 50 mg PO TID PRN PRN Reason: Pain, moderate (4-7) Last Admin: 11/21/16 17:27 Dose: 50 mg Valsartan (Diovan) 320 mg PO DAILY [facility] Warfarin Sodium (Coumadin) 2.5 mg PO 1800 [facility] PRN Reason: Protocol - Labs Labs: 11/22/16 07:00 11/22/16 07:00 PT 16.3 Seconds (9.9-11.8) H 11/22/16 07:00 INR 1.51 (0.93-1.08) H 11/22/16 07:00 APTT 42.2 Seconds (23.7-30.8) H 11/20/16 19:30 - Constitutional Appears: Well, Non-toxic, No Acute Distress - Extremities Exam Additional comments: Left lower extremity focused examination: Vasc: DP/PT pulses non-palpable, +2 non-pitting edema noted from mid calf extending distally to digits, CFT delayed to all digits. absence of pedal hair growth. Neuro: Protective sensation is grossly diminished Derm: Full-thickness ulceration of dorsum of L hallux measuring approx 2.7 x 2.5 x 0.2cm. Wound base is gangrenous with significant necrotic changes. No granular or fibrotic tissue is present. No active purulent drainage expressed. No probe to bone or abscess formation. Ortho: Tenderness to palpation of L hallux - Neurological Exam Neurological Exam: Alert, Awake, Oriented x3 - Psychiatric Exam Psychiatric exam: Normal Affect, Normal Mood Assessment and Plan - Assessment and Plan (Free Text) Assessment: 71 y/o female with left hallux gangrenous ulcer secondary to diabetes mellitus Plan: Pt seen and evaluated at bedside with Dr. Henriquez Chart, labs and vitals reviewed- afebrile, WBC WNL at 9.0 Wound cultures of L hallux pending X-rays of L foot reveal break in medial cortex of L hallux proximal phalanx RAMON/PVRs reviewed - likely false elevation in values due to calcification of vessels Pt to continue on IV abx as per ID - Vancomycin & Zosyn Dressing change to L foot with Adaptic, Betadine, and DSD Pt likely to go to OR next week for L hallux amputation pending vascular clearance - will speak to family Podiatry will continue to follow while in house <Leandro Henriquezraegan - Last Filed: 11/22/16 09:53> Objective - Vital Signs/Intake and Output Vital Signs (last 24 hours): Temp Pulse Resp BP Pulse Ox 98.7 F 81 22 144/109 H 93 L 11/22/16 07:30 11/22/16 07:30 11/22/16 07:30 11/22/16 07:30 11/22/16 07:30 Intake and Output: 11/22/16 11/22/16 06:59 18:59 Intake Total 780 Balance 780 - Medications Medications: Current Medications Acetaminophen (Tylenol 325mg Tab) 650 mg PO Q4H PRN PRN Reason: Fever >100.5 F Albuterol/Ipratropium (Duoneb 3 Mg/0.5 Mg (3 Ml) Ud) 3 ml IH Q3H PRN PRN Reason: Shortness of Breath Furosemide (Lasix) 40 mg PO BID [facility] Hydralazine HCl (Apresoline) 50 mg PO BID [facility] Last Admin: 11/21/16 21:41 Dose: 50 mg Vancomycin HCl (Vancomycin 1gm) 1 gm in 250 mls @ 167 mls/hr IVPB Q12H [facility] PRN Reason: Protocol Last Admin: 11/22/16 07:27 Dose: 167 mls/hr Piperacillin Sod/Tazobactam Sod (Zosyn 4.5 Gm In Ns 100ml) 4.5 gm in 100 mls @ 200 mls/hr IVPB Q6 [facility] PRN Reason: Protocol Stop: 11/28/16 00:01 Last Admin: 11/22/16 06:47 Dose: 200 mls/hr Insulin Human Lispro (Humalog Med) 0 units SC ACHS [facility] PRN Reason: Protocol Last Admin: 11/21/16 21:32 Dose: Not Given Isosorbide Mononitrate (Imdur) 60 mg PO DAILY [facility] Metoprolol Tartrate (Lopressor) 25 mg PO BID [facility] Ondansetron HCl (Zofran Inj) 4 mg IVP Q4H PRN PRN Reason: Nausea/Vomiting Spironolactone (Aldactone) 25 mg PO DAILY [facility] Tramadol HCl (Ultram) 50 mg PO TID PRN PRN Reason: Pain, moderate (4-7) Last Admin: 11/21/16 17:27 Dose: 50 mg Valsartan (Diovan) 320 mg PO DAILY [facility] Warfarin Sodium (Coumadin) 2.5 mg PO 1800 [facility] PRN Reason: Protocol - Labs Labs: 11/22/16 07:00 11/22/16 07:00 PT 16.3 Seconds (9.9-11.8) H 11/22/16 07:00 INR 1.51 (0.93-1.08) H 11/22/16 07:00 APTT 42.2 Seconds (23.7-30.8) H 11/20/16 19:30 Attending/Attestation - Attestation I have personally seen and examined this patient.: Yes I have fully participated in the care of the patient.: Yes I have reviewed all pertinent clinical information, including history, physical exam and plan: Yes
--- NOTE | 2016-11-22 10:17 | US ---
PROCEDURE: Duplex arterial ultrasound of the left lower extremity HISTORY: Recent left lower extremity endovascular treatment. Persistent ischemia and gangrene left foot. Evaluate for subacute thrombosis PHYSICIAN(S): Maldonado Barnett MD. FINDINGS: There is diffuse atherosclerotic change throughout the visualized left lower extremity. The left common femoral artery is patent The left SFA is patent with normal velocities throughout. No sonographically significant stenosis or thrombosis is appreciated. The left popliteal artery is patent with normal velocities. IMPRESSION: 1. The left SFA and popliteal arteries are patent with diffuse atherosclerotic disease. No sonographically significant velocities are noted. There is no evidence of thrombosis.
--- NOTE | 2016-11-22 10:32 | US ---
PROCEDURE: Lower extremity RAMON exam HISTORY: Peripheral vascular disease with left foot ischemia. Previous LLE intervention. PHYSICIAN(S): Maldonado Barnett MD. FINDINGS: The resting RAMON's are normal: right, 1.01and left, 0.94. The resting ABIs are inaccurate The brachial systolic pressures are symmetric. The low thigh pressures and waveforms are relatively normal. The calf PVR waveforms augment normally. No significant gradients are noted across the thighs. The ankle and metatarsal waveforms are moderately blunted consistent with tibial disease. IMPRESSION: 1. Bilateral tibial disease
[2016-11-22] MEDS ORDERED: Potassium Chloride 20 mEq ER Tab PO ONE (18:30)
--- NOTE | 2016-11-23 00:22 | PN ---
DATE: 11/22/2016 SUBJECTIVE: The patient is seen earlier this morning in room 562, bed 2. No fevers and chills. No nausea. PHYSICAL EXAMINATION: VITAL SIGNS: Temperature is 98, blood pressure is 140/70, respiratory rate is 16. HEENT: Unremarkable. NECK: Supple. LUNGS: Decreased breath sounds. HEART: Normal S1 and S2. ABDOMEN: Soft. LABORATORY DATA: Laboratory examination reveals a white count of 9.5, hemoglobin of 8, platelets of 270. Chemistry reveals a BUN of 17, creatinine of 0.7. Urinalysis is noted. Microbiology reveals urine cultures have gram-negative rods and review of orders reveals the patient should to be on Zosyn and vancomycin and blood cultures are reported to be negative. Dr. Henriquez's note is reviewed and he is planning to take the patient to the OR next week for a left hallux amputation based on the pending vascular clearance. ASSESSMENT AND PLAN: A 71-year-old female with coronary artery disease, gastroesophageal reflux disease, breast cancer, diabetes, Streptococcus bovis bacteremia, renal disease, atrial fibrillation, arthritis, congestive heart failure, chronic obstructive lung disease, anemia, left first toe gangrene and cellulitis, must rule out underlying peripheral vascular disease and the patient for possible amputation next week. Dr. Maldonado Barnett's interpretation of the ultrasound of the extremity is noted. The patient has left superficial femoral artery and popliteal arteries are patent with diffuse atherosclerotic disease and no evidence of thrombosis. The patient also had venous Dopplers done. Chest x-ray is negative. We will continue current antibiotic therapy. Benjamin Obrien MD
--- NOTE | 2016-11-23 02:00 | PN ---
DATE: 11/22/2016 SUBJECTIVE: The patient has no complaints of any chest pain. No shortness of breath. No headaches or dizziness. PHYSICAL EXAMINATION VITAL SIGNS: Temperature is 98.7, pulse of 100, blood pressure 144/100, and respirations 20. GENERAL: The patient is comfortable, in no acute distress. HEENT: Anicteric sclerae. Moist mucosa. NECK: No JVD or adenopathy. CARDIAC: S1, S2. No murmurs. No rubs. Regular. RESPIRATORY: Clear to auscultation bilaterally. No wheezes, rales, or rhonchi. Good air entry. ABDOMEN: Bowel sounds are positive, soft, nontender, and nondistended. EXTREMITIES: No edema. Has 1+ pulses. LABORATORY DATA: Potassium is 3.5 and creatinine 0.7. The lower extremity arterial Dopplers showed bilateral tibial disease. Lower extremity Dopplers show left SFA and popliteal arteries are patent with diffuse atherosclerotic disease. ASSESSMENT: 1. Left hallux gangrenous ulcer. 2. Diabetes type 2. 3. Peripheral arterial disease. 4. Obese with a body mass index of 41. 5. Hypertension. 6. Dyslipidemia. 7. Coronary artery disease. PLAN: The patient is currently comfortable. She is on Aldactone. She is going to continue with hydralazine for her hypertension. She is receiving Coumadin. She has an INR that is subtherapeutic at 1.5. We will increase the patient's Coumadin dosage from 2.5 to 5. The patient is on Lasix daily for edema. She is on Diovan for hypertension. She is receiving isosorbide. She is on antibiotic, Zosyn. She has cultures that are positive for Gram-negative rods. She is being followed by Infectious Disease, as well as, Podiatry and I appreciate their input. The patient has a full-thickness ulceration of the left hallux measuring 2.7 x 2.5 cm. The patient will most likely need to go to the OR. We will discontinue the patient's Coumadin and place the patient on Lovenox in preparation for the OR. Da Wooten MD [facility] # [id number]
[2016-11-23] MEDS: Piperacill/Tazo 4.5gm in NS 4.5 GM/100 ML BAG IVPB SCH ×4 (05:39→23:00)
[2016-11-23] MEDS: Vancomycin 1gm in NS 250ml 1 GM/250 ML BAG IVPB SCH ×2 (06:17→18:42)
[2016-11-23] MEDS: Insulin Lispro (humaLOG) MEDIUM Coverage SC SCH ×4 (08:16→22:00)
[2016-11-23] MEDS: Enoxaparin 100 mg Syringe SC SCH ×2 (10:10→22:52)
--- NOTE | 2016-11-23 11:29 | PN ---
DATE: 11/23/2016 SUBJECTIVE: The patient has no complaints of headaches or dizziness. No nausea. PHYSICAL EXAMINATION: VITAL SIGNS: Temperature is 97.6, pulse of 78, blood pressure is 131/48, respirations 20. GENERAL: The patient is lying in bed, flat, comfortable. HEENT: No oral lesion. Anicteric sclerae. Moist mucosa. NECK: No JVD, adenopathy, or thyromegaly. CARDIOVASCULAR: S1 and S2, regular. No murmurs, rubs, or gallops. LUNGS: Clear to auscultation bilaterally. No wheeze, rales, or rhonchi. ABDOMEN: Bowel sounds are positive, soft, nontender and nondistended. EXTREMITIES: No cyanosis, clubbing or edema. LABORATORY DATA: Creatinine is 0.7 ASSESSMENT: 1. Left hallux gangrenous ulcer. 2. Diabetes type 2. 3. Peripheral arterial disease. 4. Obese with a body mass index of 41. 5. Hypertension. 6. Dyslipidemia. 7. Coronary artery disease. PLAN: The patient is on hydralazine for high blood pressure. She is going to continue on Aldactone. She is receiving potassium. She is on Lasix. The patient is on Lovenox for anticoagulation. She is off her Coumadin because of requiring surgery. She is on Ultram for pain. She is receiving vancomycin for antibiotics. She has Gram stain that showed Citrobacter and Pseudomonas. She is also on Zosyn for antibiotics, being followed by Infectious Disease. Da Wooten MD
--- NOTE | 2016-11-23 13:11 | PN ---
DATE: 11/23/2016 SUBJECTIVE: The patient is in bed in no acute distress. PHYSICAL EXAMINATION VITAL SIGNS: Temperature of 97, blood pressure 130/40, respiratory rate of 16. HEENT: Unremarkable. NECK: Supple. LUNGS: Have decreased breath sounds. HEART: Normal S1 and S2. ABDOMEN: Soft. LABORATORY DATA: Reveals white count of 9.5, hemoglobin of 8, platelets of 270. Chemistries reveals BUN of 17, creatinine of 0.7. Urinalysis is noted. Microbiology reveals Citrobacter and Pseudomonas. ASSESSMENT AND PLAN: This is a 71-year-old female with coronary artery disease, gastroesophageal reflux disease, breast cancer, diabetes, status post bacteremia by history, renal disease, atrial fibrillation, arthritis, congestive heart failure, chronic obstructive lung disease, anemia. Admitted on this admission with left first toe gangrene and cellulitis with possible amputation for next week. Currently, on vancomycin and Zosyn with creatinine of 0.7. We will follow with you. Benjamin Obrien MD
--- NOTE | 2016-11-23 14:08 | CP.PCM.PN ---
Subjective - Date & Time of Evaluation Date of Evaluation: 11/23/16 Time of Evaluation: 11:30 - Subjective Subjective: 71 y/o female seen at bedside for left hallux gangrenous ulcer secondary to DM. Patient states she is still having pain in the toe but she is managing. Patient denies any F/C/N/V/SOB. Patient's dressing has remained clean, dry and intact since yesterday's visit. Objective - Vital Signs/Intake and Output Vital Signs (last 24 hours): Temp Pulse Resp BP Pulse Ox 97.6 F 78 20 131/48 L 98 11/23/16 07:30 11/23/16 10:10 11/23/16 07:30 11/23/16 10:10 11/23/16 07:30 Intake and Output: 11/23/16 11/23/16 06:59 18:59 Intake Total 1140 Output Total 100 Balance 1040 - Medications Medications: Current Medications Acetaminophen (Tylenol 325mg Tab) 650 mg PO Q4H PRN PRN Reason: Fever >100.5 F Albuterol/Ipratropium (Duoneb 3 Mg/0.5 Mg (3 Ml) Ud) 3 ml IH Q3H PRN PRN Reason: Shortness of Breath Enoxaparin Sodium (Lovenox) 100 mg SC Q12H [facility] PRN Reason: Protocol Last Admin: 11/23/16 10:10 Dose: 100 mg Furosemide (Lasix) 40 mg PO BID [facility] Last Admin: 11/23/16 10:08 Dose: 40 mg Hydralazine HCl (Apresoline) 50 mg PO BID [facility] Last Admin: 11/23/16 10:10 Dose: 50 mg Vancomycin HCl (Vancomycin 1gm) 1 gm in 250 mls @ 167 mls/hr IVPB Q12H [facility] PRN Reason: Protocol Last Admin: 11/23/16 06:17 Dose: 167 mls/hr Piperacillin Sod/Tazobactam Sod (Zosyn 4.5 Gm In Ns 100ml) 4.5 gm in 100 mls @ 200 mls/hr IVPB Q6 [facility] PRN Reason: Protocol Stop: 11/28/16 00:01 Last Admin: 11/23/16 13:01 Dose: 200 mls/hr Insulin Human Lispro (Humalog Med) 0 units SC ACHS [facility] PRN Reason: Protocol Last Admin: 11/23/16 12:59 Dose: 1 units Isosorbide Mononitrate (Imdur) 60 mg PO DAILY [facility] Last Admin: 11/23/16 10:07 Dose: 60 mg Metoprolol Tartrate (Lopressor) 25 mg PO BID [facility] Last Admin: 11/23/16 10:10 Dose: 25 mg Ondansetron HCl (Zofran Inj) 4 mg IVP Q4H PRN PRN Reason: Nausea/Vomiting Spironolactone (Aldactone) 25 mg PO DAILY [facility] Last Admin: 11/23/16 10:09 Dose: 25 mg Tramadol HCl (Ultram) 50 mg PO TID PRN PRN Reason: Pain, moderate (4-7) Last Admin: 11/23/16 10:08 Dose: 50 mg Valsartan (Diovan) 320 mg PO DAILY [facility] Last Admin: 11/23/16 10:08 Dose: 320 mg - Labs Labs: 11/22/16 07:00 11/22/16 07:00 PT 16.3 Seconds (9.9-11.8) H 11/22/16 07:00 INR 1.51 (0.93-1.08) H 11/22/16 07:00 APTT 42.2 Seconds (23.7-30.8) H 11/20/16 19:30 - Constitutional Appears: Well, Non-toxic, No Acute Distress - Extremities Exam Additional comments: Left lower extremity focused examination: Vasc: DP/PT pulses non-palpable, +2 non-pitting edema noted from mid calf extending distally to digits, CFT delayed to all digits. absence of pedal hair growth Neuro: Protective sensation grossly diminished Derm: Full-thickness ulceration of dorsum of L hallux measuring approx 2.9 x 2.5 x 0.2cm. Wound base is gangrenous with significant necrotic changes. No granular or fibrotic tissue is present. No active purulent drainage expressed. Yellow discharge noted to dressing. No probe to bone or abscess formation. Ortho: Mild tenderness to palpation of L hallux - Neurological Exam Neurological Exam: Alert, Awake, Oriented x3 - Psychiatric Exam Psychiatric exam: Normal Affect, Normal Mood Assessment and Plan - Assessment and Plan (Free Text) Assessment: 71 y/o female with left hallux gangrenous ulcer secondary to diabetes mellitus Plan: Pt seen and evaluated at bedside with Dr. Henriquez Chart, labs and vitals reviewed- afebrile, WBC WNL at 9.5 on 11/22 Wound culture shows growth of Citrobacter and Pseudomonas X-rays of L foot reveal break in medial cortex of L hallux proximal phalanx RAMON/PVRs reviewed - likely false elevation in values due to calcification of vessels Arterial duplex ultrasound reveals patent left SFA and popliteal vessels with diffuse atherosclerosis Pt to continue on IV abx as per ID - Vancomycin & Zosyn Dressing change to L foot with Adaptic, Betadine, and DSD Pt likely to go to OR sometime next week for L hallux amputation pending vascular clearance Podiatry will continue to follow while in house
[2016-11-24] MEDS: Piperacill/Tazo 4.5gm in NS 4.5 GM/100 ML BAG IVPB SCH ×4 (06:00→23:52)
[2016-11-24 06:29] LABS: BASO # 0.03 K/mm3 (0.0-2.0); BASO % 0.4 % (0.0-3.0); EOS # 0.3 (0.0-0.7); EOS % 3.2 % (1.5-5.0); GRAN # 6.21 (1.4-6.5); GRAN % 77.2 % (50.0-68.0); HEMATOCRIT 25.8 % (36.0-48.0); LYMPH # 1.2 (1.2-3.4); LYMPH % 14.6 % (22.0-35.0); MEAN CELL VOLUME 88.4 fl (80.0-105.0); MEAN CORPUSCULAR HEMOGLOBIN 27.4 pg (25.0-35.0); MONO # 0.4 (0.1-0.6); MONO % 4.6 % (1.0-6.0); RED CELL DISTRIBUTION WIDTH 17.2 % (11.5-14.5)
[2016-11-24 06:52] LABS: ALB/GLOB RATIO 1.3 (1.1-1.8); ALKALINE PHOSPHATASE 135 U/L (38-126); ALT/SGPT 31 U/L (7-56); AST/SGOT 21 U/L (14-36); BILIRUBIN,TOTAL 0.4 mg/dL (0.2-1.3); BLOOD UREA NITROGEN 16 mg/dL (7-21); CALCIUM 9.3 mg/dL (8.4-10.5); CARBON DIOXIDE 31 mmol/L (21-33); CHLORIDE 102 mmol/L (98-107); GFR AFRICAN-AMERICAN > 60; GLUCOSE,RANDOM 118 mg/dL (70-110); POTASSIUM 3.7 mmol/L (3.6-5.0); SODIUM 141 mmol/L (132-148); TOTAL PROTEIN 6.3 g/dL (5.8-8.3)
[2016-11-24] MEDS: Vancomycin 1gm in NS 250ml 1 GM/250 ML BAG IVPB SCH ×2 (07:53→18:01)
[2016-11-24] MEDS: Insulin Lispro (humaLOG) MEDIUM Coverage SC SCH ×4 (08:15→23:17)
[2016-11-24] MEDS: Enoxaparin 100 mg Syringe SC SCH ×2 (09:12→23:14)
--- NOTE | 2016-11-24 10:52 | CP.PCM.PN ---
<Monserrat Rodriguez - Last Filed: 11/24/16 11:00> Subjective - Date & Time of Evaluation Date of Evaluation: 11/24/16 Time of Evaluation: 10:52 - Subjective Subjective: 71 y/o female seen at bedside with Dr. Hoffman for left hallux gangrenous ulcer. Patient states she is feeling moderate amount of pain in the left big toe. Patient wishes to proceed with treating the infection aggressively, even if that means surgical intervention. Patient denies any F/C/N/V/SOB. Patient's dressing has remained clean, dry and intact since yesterday's visit. Objective - Vital Signs/Intake and Output Vital Signs (last 24 hours): Temp Pulse Resp BP Pulse Ox 98.3 F 80 22 126/57 L 94 L 11/24/16 07:27 11/24/16 07:27 11/24/16 07:27 11/24/16 09:13 11/24/16 07:27 Intake and Output: 11/24/16 11/24/16 06:59 18:59 Intake Total 120 Balance 120 - Medications Medications: Current Medications Acetaminophen (Tylenol 325mg Tab) 650 mg PO Q4H PRN PRN Reason: Fever >100.5 F Albuterol/Ipratropium (Duoneb 3 Mg/0.5 Mg (3 Ml) Ud) 3 ml IH Q3H PRN PRN Reason: Shortness of Breath Enoxaparin Sodium (Lovenox) 100 mg SC Q12H [facility] PRN Reason: Protocol Last Admin: 11/24/16 09:12 Dose: 100 mg Furosemide (Lasix) 40 mg PO BID [facility] Last Admin: 11/24/16 09:12 Dose: 40 mg Hydralazine HCl (Apresoline) 50 mg PO BID [facility] Last Admin: 11/24/16 09:13 Dose: 50 mg Vancomycin HCl (Vancomycin 1gm) 1 gm in 250 mls @ 167 mls/hr IVPB Q12H [facility] PRN Reason: Protocol Last Admin: 11/24/16 07:53 Dose: 167 mls/hr Piperacillin Sod/Tazobactam Sod (Zosyn 4.5 Gm In Ns 100ml) 4.5 gm in 100 mls @ 200 mls/hr IVPB Q6 [facility] PRN Reason: Protocol Stop: 11/28/16 00:01 Last Admin: 11/24/16 06:00 Dose: 200 mls/hr Insulin Human Lispro (Humalog Med) 0 units SC ACHS [facility] PRN Reason: Protocol Last Admin: 11/24/16 08:15 Dose: Not Given Isosorbide Mononitrate (Imdur) 60 mg PO DAILY [facility] Last Admin: 11/24/16 09:12 Dose: 60 mg Metoprolol Tartrate (Lopressor) 25 mg PO BID [facility] Last Admin: 11/24/16 09:13 Dose: 25 mg Ondansetron HCl (Zofran Inj) 4 mg IVP Q4H PRN PRN Reason: Nausea/Vomiting Spironolactone (Aldactone) 25 mg PO DAILY [facility] Last Admin: 11/24/16 09:12 Dose: 25 mg Tramadol HCl (Ultram) 50 mg PO TID PRN PRN Reason: Pain, moderate (4-7) Last Admin: 11/24/16 09:20 Dose: 50 mg Valsartan (Diovan) 320 mg PO DAILY [facility] Last Admin: 11/24/16 09:12 Dose: 320 mg - Labs Labs: 11/24/16 06:26 11/24/16 06:26 PT 16.3 Seconds (9.9-11.8) H 11/22/16 07:00 INR 1.51 (0.93-1.08) H 11/22/16 07:00 APTT 42.2 Seconds (23.7-30.8) H 11/20/16 19:30 - Constitutional Appears: Well, Non-toxic, No Acute Distress - Extremities Exam Additional comments: Left lower extremity focused examination: Vasc: DP/PT pulses non-palpable, +2 non-pitting edema noted from mid calf extending distally to digits, CFT delayed to all digits. Absence of pedal hair growth is noted Neuro: Protective sensation grossly diminished Derm: Full-thickness ulceration of dorsum of L hallux measuring approx 2.9 x 2.5 x 0.2cm. Wound base is gangrenous with significant necrotic changes. No granular or fibrotic tissue is present. No purulence. Yellow discharge noted to dressing. Wound does not probe down to bone. Ortho: Mild tenderness to palpation of L hallux - Neurological Exam Neurological Exam: Alert, Awake, Oriented x3 - Psychiatric Exam Psychiatric exam: Normal Affect, Normal Mood Assessment and Plan - Assessment and Plan (Free Text) Assessment: 71 y/o female with left hallux gangrenous ulcer secondary to diabetes mellitus Plan: Pt seen and evaluated at bedside with Dr. Hoffman Chart, labs and vitals reviewed- afebrile, WBC WNL 8.0 Wound culture shows growth of Citrobacter and Pseudomonas X-rays of L foot reveal break in medial cortex of L hallux proximal phalanx RAMON/PVRs reviewed - likely false elevation in values due to calcification of vessels. Waveforms show blunting at ankle and metatarsal level Arterial duplex ultrasound reveals patent left SFA and popliteal vessels with diffuse atherosclerosis Pt to continue on IV abx as per ID - Vancomycin & Zosyn Dressing change to L foot with Betadine, and DSD Will discuss with vascular team on Thursday to determine next step - pt likely to go for L hallux amputation Thursday or pending vascular clearance Podiatry will continue to follow while in house <Nikia Hoffman - Last Filed: 11/28/16 13:30> Objective - Vital Signs/Intake and Output Vital Signs (last 24 hours): Temp Pulse Resp BP Pulse Ox 98.4 F 79 20 177/86 H 97 11/28/16 07:30 11/28/16 07:30 11/28/16 07:30 11/28/16 09:03 11/28/16 07:30 Intake and Output: 11/28/16 11/28/16 06:59 18:59 Intake Total 660 Output Total 2500 Balance -1840 - Medications Medications: Current Medications Acetaminophen (Tylenol 325mg Tab) 650 mg PO Q4H PRN PRN Reason: Fever >100.5 F Albuterol/Ipratropium (Duoneb 3 Mg/0.5 Mg (3 Ml) Ud) 3 ml IH Q3H PRN PRN Reason: Shortness of Breath Enoxaparin Sodium (Lovenox) 100 mg SC Q12H [facility] PRN Reason: Protocol Last Admin: 11/24/16 23:14 Dose: 100 mg Enoxaparin Sodium (Lovenox) 40 mg SC DAILY [facility] PRN Reason: Protocol Last Admin: 11/28/16 13:25 Dose: 40 mg Furosemide (Lasix) 40 mg PO BID [facility] Last Admin: 11/28/16 09:03 Dose: 40 mg Hydralazine HCl (Apresoline) 50 mg PO BID [facility] Last Admin: 11/28/16 09:04 Dose: 50 mg Piperacillin Sod/Tazobactam Sod (Zosyn 4.5 Gm In Ns 100ml) 4.5 gm in 100 mls @ 200 mls/hr IVPB Q6 [facility] PRN Reason: Protocol Stop: 11/28/16 18:29 Last Admin: 11/28/16 13:24 Dose: 200 mls/hr Insulin Human Lispro (Humalog Med) 0 units SC ACHS [facility] PRN Reason: Protocol Last Admin: 11/28/16 12:30 Dose: 3 units Isosorbide Mononitrate (Imdur) 60 mg PO DAILY [facility] Last Admin: 11/28/16 09:04 Dose: 60 mg Metoprolol Tartrate (Lopressor) 25 mg PO BID [facility] Last Admin: 11/28/16 09:04 Dose: 25 mg Nicotine (Nicoderm Cq) 1 patch TD DAILY [facility] Last Admin: 11/28/16 09:06 Dose: 1 patch Ondansetron HCl (Zofran Inj) 4 mg IVP Q4H PRN PRN Reason: Nausea/Vomiting Oxycodone/Acetaminophen (Percocet 5/325 Mg Tab) 1 tab PO Q4H PRN PRN Reason: Pain, moderate (4-7) Stop: 11/30/16 10:03 Last Admin: 11/28/16 09:49 Dose: 1 tab Oxycodone/Acetaminophen (Percocet 5/325 Mg Tab) 2 tab PO Q4H PRN PRN Reason: Pain, severe (8-10) Stop: 11/30/16 10:03 Last Admin: 11/27/16 22:38 Dose: 2 tab Pantoprazole Sodium (Protonix Inj) 40 mg IVP DAILY [facility] Last Admin: 11/28/16 09:50 Dose: 40 mg Spironolactone (Aldactone) 25 mg PO DAILY [facility] Last Admin: 11/28/16 09:04 Dose: 25 mg Valsartan (Diovan) 320 mg PO DAILY [facility] Last Admin: 11/28/16 09:04 Dose: 320 mg - Labs Labs: 11/28/16 06:15 11/28/16 06:15 PT 12.7 Seconds (9.9-11.8) H 11/26/16 17:10 INR 1.18 (0.93-1.08) H 11/26/16 17:10 APTT 28.0 Seconds (23.7-30.8) 11/26/16 23:59 Attending/Attestation - Attestation I have personally seen and examined this patient.: Yes I have fully participated in the care of the patient.: Yes I have reviewed all pertinent clinical information, including history, physical exam and plan: Yes
--- NOTE | 2016-11-24 11:07 | PN ---
DATE: 11/24/2016 SUBJECTIVE: The patient has no complaints of any chest pain. No shortness of breath. PHYSICAL EXAMINATION: VITAL SIGNS: Temperature is 98.3, pulse of 80, blood pressure 126/57, and respirations are 22. GENERAL: The patient is lying in bed, flat, comfortable. HEENT: No oral lesion. Anicteric sclerae. Moist mucosa. NECK: No JVD, adenopathy, or thyromegaly. CARDIOVASCULAR: S1 and S2, regular. No murmurs, rubs, or gallops. LUNGS: Clear to auscultation bilaterally. No wheeze, rales, or rhonchi. ABDOMEN: Bowel sounds are positive, soft, nontender and nondistended. EXTREMITIES: No cyanosis, clubbing or edema. LABORATORY DATA: Hemoglobin is 8.0 and creatinine is 0.8. ASSESSMENT: 1. Left hallux gangrenous ulcer. 2. Diabetes type 2. 3. Peripheral arterial disease. 4. Hypertension. 5. Dyslipidemia. 6. Coronary artery disease. 7. Obesity with a body mass index of 41. PLAN: The patient has a hemoglobin that is low. She is on valsartan for hypertension. The patient is on Lasix. She is on Lovenox for anticoagulation. She is on Ultram for pain. She is on Zosyn for antibiotics. She is being followed by Dr. Hoffman. She may need surgery. The patient has been seen by Dr. Sandra before. I will get him to evaluate the patient preop and the patient has also been seen by Dr. Vanegas, I will get him to evaluate the anemia. Da Wooten MD
[2016-11-24 11:21] LABS: IRON 38 ug/dL (45-180)
--- NOTE | 2016-11-24 11:51 | PN ---
DATE: SUBJECTIVE: Patient is seen earlier this morning. No fevers and no chills. Patient has no chest pain. PHYSICAL EXAMINATION: VITAL SIGNS: On exam, temperature is 98, blood pressure is 120/50, respiratory rate of 20, heart rate of 80. HEENT: Unremarkable. NECK: Supple. LUNGS: Decreased breath sounds. HEART: Normal S1 and S2. ABDOMEN: Soft, nontender. LABORATORY DATA: Laboratory examination reveals white count of 8000, hemoglobin of 8, platelets of 260. Chemistry reveals BUN of 16, creatinine of 0.8. Urinalysis is noted. Microbiology reveals the patient's urine culture has Pseudomonas and toe culture has Pseudomonas and Citrobacter and another toe culture Citrobacter and gram negative rods. Review of orders reveals the patient to be on vancomycin and Zosyn. ASSESSMENT AND PLAN: This is a 71-year-old female with coronary artery disease, gastroesophageal reflux disease, breast cancer, diabetes mellitus status post bacteremia, by history renal disease, atrial fibrillation, arthritis, congestive heart failure, chronic obstructive lung disease, anemia with the left first toe gangrene and cellulitis and possible amputation, recurrently on vancomycin and Zosyn. We will follow with you. Benjamin Obrien MD
[2016-11-24] MEDS ORDERED: Permethrin 5% Cream(60 gm) TOP ONE (12:23)
[2016-11-25] MEDS: Piperacill/Tazo 4.5gm in NS 4.5 GM/100 ML BAG IVPB SCH ×4 (06:41→23:11)
[2016-11-25 07:12] LABS: HEMATOCRIT 25.9 % (36.0-48.0); MEAN CELL VOLUME 88.7 fl (80.0-105.0); MEAN CORPUSCULAR HEMOGLOBIN 27.1 pg (25.0-35.0); MEAN CORPUSCULAR HGB CONC 30.5 g/dl (31.0-37.0); MEAN PLATELET VOLUME 8.7 fl (7.0-11.0); RED CELL DISTRIBUTION WIDTH 17.2 % (11.5-14.5); WHITE BLOOD COUNT 7.6 10^3/ul (4.5-11.0)
[2016-11-25 07:48] LABS: ALB/GLOB RATIO 1.3 (1.1-1.8); ALKALINE PHOSPHATASE 134 U/L (38-126); ALT/SGPT 24 U/L (7-56); AST/SGOT 21 U/L (14-36); BILIRUBIN,TOTAL 0.3 mg/dL (0.2-1.3); BLOOD UREA NITROGEN 14 mg/dL (7-21); CALCIUM 9.3 mg/dL (8.4-10.5); CARBON DIOXIDE 30 mmol/L (21-33); CHLORIDE 102 mmol/L (98-107); GFR AFRICAN-AMERICAN > 60; GLUCOSE,RANDOM 128 mg/dL (70-110); POTASSIUM 3.4 mmol/L (3.6-5.0); SODIUM 143 mmol/L (132-148); TOTAL PROTEIN 6.3 g/dL (5.8-8.3)
[2016-11-25] MEDS: Insulin Lispro (humaLOG) MEDIUM Coverage SC SCH ×3 (08:25→17:15)
[2016-11-25 08:55] LABS: INR 1.18 (0.93-1.08)
[2016-11-25] MEDS: Vancomycin 1gm in NS 250ml 1 GM/250 ML BAG IVPB SCH (09:07)
--- NOTE | 2016-11-25 09:19 | CON ---
DATE: 11/24/2016 ADDENDUM HISTORY OF PRESENT ILLNESS: This patient was seen and evaluated earlier. Discussed with the nursing staff. This 71-year-old patient, who is well known to our GI Service with multiple admissions in the past. This 71-year-old patient with past medical history of anemia, portal hypertension, portal gastropathy, duodenal angiodysplasia, multiple colonic polyps, history of ulceration. This patient was admitted with a left toe gangrene. The patient was also found to be anemic. GI consult was requested to evaluate this. The patient denies having any bright red blood per rectum or melena. No abdominal pain, no vomiting, tolerating the diet. PAST MEDICAL HISTORY: Other past medical history is portal hypertension. Other past medical history is significant for atrial fibrillation, congestive heart failure, history of left breast cancer, COPD, coronary artery disease, chronic kidney disease, history of multiple colon polyps. Her last endoscopy was on 05/12/2016. She had a push enteroscopy. ALLERGIES: NO KNOWN DRUG ALLERGIES. PAST SURGICAL HISTORY: Lumpectomy left breast. REVIEW OF SYSTEMS: Positive as above. Other systems reviewed. PHYSICAL EXAMINATION HEENT: Atraumatic, anicteric. GENERAL: On examination, the patient is comfortable, sitting, not in acute distress today. She said her pain medication requirement also has come down. NECK: Supple. HEART: S1 and S2 heard. LUNGS: Bilateral air entry present and reduced in the bases. ABDOMEN: Soft. There is no tenderness. EXTREMITIES: Mild edema present. NEUROLOGIC: Alert and oriented. Moves all her extremities. LABORATORY DATA: Hemoglobin 8.0, hematocrit 25.8, WBC is 8.0, platelets 290. PLAN: The plan is to consider mainly followup of the hemoglobin and hematocrit, continue with iron infusions the patient may need. The patient does have a high risk for endoscopy procedure in the past, if he did desaturate and the conservative approach may be the reasonable thing, care and follow up the hemoglobin and hematocrit. If the hemoglobin continues to fall down, then we will consider repeating the endoscopy. Thank you very much for allowing me to participate in the care of the patient. Rahel Hamilton MD [facility] # [id number]
[2016-11-25] MEDS ORDERED: Potassium Chloride 20 mEq ER Tab PO ONE ×2 (10:00→17:00)
[2016-11-25] MEDS ORDERED: Potassium Chloride 20 mEq ER Tab PO SCH (10:00)
--- NOTE | 2016-11-25 10:01 | CP.PCM.PN ---
<Laisha De Leon - Last Filed: 11/25/16 09:59> Subjective - Date & Time of Evaluation Date of Evaluation: 11/25/16 Time of Evaluation: 09:59 - Subjective Subjective: 71 y/o female seen at bedside with Dr. Hoffman for left hallux gangrenous ulcer. Patient states she is feeling moderate amount of pain in the left big toe. Patient wishes to proceed with treating the infection aggressively, even if that means surgical intervention. Patient denies any F/C/N/V/SOB. Patient's dressing has remained clean, dry and intact since yesterday's visit. Objective - Vital Signs/Intake and Output Vital Signs (last 24 hours): Temp Pulse Resp BP Pulse Ox 97.9 F 82 22 165/75 H 98 11/25/16 07:30 11/25/16 09:23 11/25/16 07:30 11/25/16 09:23 11/25/16 07:30 Intake and Output: 11/25/16 11/25/16 06:59 18:59 Intake Total 720 Balance 720 - Medications Medications: Current Medications Acetaminophen (Tylenol 325mg Tab) 650 mg PO Q4H PRN PRN Reason: Fever >100.5 F Albuterol/Ipratropium (Duoneb 3 Mg/0.5 Mg (3 Ml) Ud) 3 ml IH Q3H PRN PRN Reason: Shortness of Breath Enoxaparin Sodium (Lovenox) 100 mg SC Q12H [facility] PRN Reason: Protocol Last Admin: 11/24/16 23:14 Dose: 100 mg Furosemide (Lasix) 40 mg PO BID [facility] Last Admin: 11/25/16 09:20 Dose: Not Given Furosemide (Lasix) 40 mg IVP ONCE ONE Stop: 11/25/16 12:01 Hydralazine HCl (Apresoline) 50 mg PO BID [facility] Last Admin: 11/25/16 09:08 Dose: 50 mg Vancomycin HCl (Vancomycin 1gm) 1 gm in 250 mls @ 167 mls/hr IVPB Q12H [facility] PRN Reason: Protocol Last Admin: 11/25/16 09:07 Dose: 167 mls/hr Piperacillin Sod/Tazobactam Sod (Zosyn 4.5 Gm In Ns 100ml) 4.5 gm in 100 mls @ 200 mls/hr IVPB Q6 [facility] PRN Reason: Protocol Stop: 11/28/16 00:01 Last Admin: 11/25/16 06:41 Dose: 200 mls/hr Sodium Chloride (Sodium Chloride 0.45%) 1,000 mls @ 60 mls/hr IV .[id number] [facility] Stop: 11/27/16 08:00 Insulin Human Lispro (Humalog Med) 0 units SC ACHS [facility] PRN Reason: Protocol Last Admin: 11/25/16 08:25 Dose: Not Given Isosorbide Mononitrate (Imdur) 60 mg PO DAILY [facility] Last Admin: 11/25/16 09:08 Dose: 60 mg Metoprolol Tartrate (Lopressor) 25 mg PO BID [facility] Last Admin: 11/25/16 09:23 Dose: 25 mg Nicotine (Nicoderm Cq) 1 patch TD DAILY [facility] Last Admin: 11/25/16 09:17 Dose: 1 patch Ondansetron HCl (Zofran Inj) 4 mg IVP Q4H PRN PRN Reason: Nausea/Vomiting Pantoprazole Sodium (Protonix Inj) 40 mg IVP DAILY [facility] Potassium Chloride (K-Dur 20 Meq Er Tab) 40 meq PO ONCE ONE Stop: 11/25/16 10:01 Last Admin: 11/25/16 09:09 Dose: 40 meq Spironolactone (Aldactone) 25 mg PO DAILY [facility] Last Admin: 11/25/16 09:08 Dose: 25 mg Tramadol HCl (Ultram) 50 mg PO TID PRN PRN Reason: Pain, moderate (4-7) Last Admin: 11/24/16 09:20 Dose: 50 mg Valsartan (Diovan) 320 mg PO DAILY [facility] Last Admin: 11/25/16 09:08 Dose: 320 mg - Labs Labs: 11/25/16 06:55 11/25/16 06:55 PT 12.7 Seconds (9.9-11.8) H 11/25/16 08:21 INR 1.18 (0.93-1.08) H 11/25/16 08:21 APTT 42.2 Seconds (23.7-30.8) H 11/20/16 19:30 - Constitutional Appears: Well, Non-toxic, No Acute Distress - Extremities Exam Additional comments: Left lower extremity focused examination: Vasc: DP/PT pulses non-palpable, +2 non-pitting edema noted from mid calf extending distally to digits, CFT delayed to all digits. Absence of pedal hair growth is noted Neuro: Protective sensation grossly diminished Derm: Full-thickness ulceration of dorsum of L hallux measuring approx 2.9 x 2.5 x 0.2cm. Wound base is gangrenous with significant necrotic changes. No granular or fibrotic tissue is present. No purulence. Yellow discharge noted to dressing. Wound does not probe down to bone. Ortho: Mild tenderness to palpation of L hallux - Neurological Exam Neurological Exam: Alert, Awake, Oriented x3 - Psychiatric Exam Psychiatric exam: Normal Affect, Normal Mood Assessment and Plan - Assessment and Plan (Free Text) Assessment: 71 y/o female with left hallux gangrenous ulcer secondary to diabetes mellitus Plan: Pt seen and evaluated at bedside with Dr. Hoffman Chart, labs and vitals reviewed- afebrile, WBC WNL 7.6 Wound culture shows growth of Citrobacter and Pseudomonas X-rays of L foot reveal break in medial cortex of L hallux proximal phalanx RAMON/PVRs reviewed - likely false elevation in values due to calcification of vessels. Waveforms show blunting at ankle and metatarsal level Arterial duplex ultrasound reveals patent left SFA and popliteal vessels with diffuse atherosclerosis Pt to continue on IV abx as per ID - Vancomycin & Zosyn Dressing change to L foot with Betadine, and DSD Will discuss with vascular team on Thursday to determine next step - pt likely to go for L hallux amputation pending vascular clearance Podiatry will continue to follow while in house <Nikia Hoffman - Last Filed: 11/28/16 13:30> Objective - Vital Signs/Intake and Output Vital Signs (last 24 hours): Temp Pulse Resp BP Pulse Ox 98.4 F 79 20 177/86 H 97 11/28/16 07:30 11/28/16 07:30 11/28/16 07:30 11/28/16 09:03 11/28/16 07:30 Intake and Output: 11/28/16 11/28/16 06:59 18:59 Intake Total 660 Output Total 2500 Balance -1840 - Medications Medications: Current Medications Acetaminophen (Tylenol 325mg Tab) 650 mg PO Q4H PRN PRN Reason: Fever >100.5 F Albuterol/Ipratropium (Duoneb 3 Mg/0.5 Mg (3 Ml) Ud) 3 ml IH Q3H PRN PRN Reason: Shortness of Breath Enoxaparin Sodium (Lovenox) 100 mg SC Q12H [facility] PRN Reason: Protocol Last Admin: 11/24/16 23:14 Dose: 100 mg Enoxaparin Sodium (Lovenox) 40 mg SC DAILY [facility] PRN Reason: Protocol Last Admin: 11/28/16 13:25 Dose: 40 mg Furosemide (Lasix) 40 mg PO BID [facility] Last Admin: 11/28/16 09:03 Dose: 40 mg Hydralazine HCl (Apresoline) 50 mg PO BID [facility] Last Admin: 11/28/16 09:04 Dose: 50 mg Piperacillin Sod/Tazobactam Sod (Zosyn 4.5 Gm In Ns 100ml) 4.5 gm in 100 mls @ 200 mls/hr IVPB Q6 [facility] PRN Reason: Protocol Stop: 11/28/16 18:29 Last Admin: 11/28/16 13:24 Dose: 200 mls/hr Insulin Human Lispro (Humalog Med) 0 units SC ACHS [facility] PRN Reason: Protocol Last Admin: 11/28/16 12:30 Dose: 3 units Isosorbide Mononitrate (Imdur) 60 mg PO DAILY [facility] Last Admin: 11/28/16 09:04 Dose: 60 mg Metoprolol Tartrate (Lopressor) 25 mg PO BID [facility] Last Admin: 11/28/16 09:04 Dose: 25 mg Nicotine (Nicoderm Cq) 1 patch TD DAILY [facility] Last Admin: 11/28/16 09:06 Dose: 1 patch Ondansetron HCl (Zofran Inj) 4 mg IVP Q4H PRN PRN Reason: Nausea/Vomiting Oxycodone/Acetaminophen (Percocet 5/325 Mg Tab) 1 tab PO Q4H PRN PRN Reason: Pain, moderate (4-7) Stop: 11/30/16 10:03 Last Admin: 11/28/16 09:49 Dose: 1 tab Oxycodone/Acetaminophen (Percocet 5/325 Mg Tab) 2 tab PO Q4H PRN PRN Reason: Pain, severe (8-10) Stop: 11/30/16 10:03 Last Admin: 11/27/16 22:38 Dose: 2 tab Pantoprazole Sodium (Protonix Inj) 40 mg IVP DAILY [facility] Last Admin: 11/28/16 09:50 Dose: 40 mg Spironolactone (Aldactone) 25 mg PO DAILY [facility] Last Admin: 11/28/16 09:04 Dose: 25 mg Valsartan (Diovan) 320 mg PO DAILY [facility] Last Admin: 11/28/16 09:04 Dose: 320 mg - Labs Labs: 11/28/16 06:15 11/28/16 06:15 PT 12.7 Seconds (9.9-11.8) H 11/26/16 17:10 INR 1.18 (0.93-1.08) H 11/26/16 17:10 APTT 28.0 Seconds (23.7-30.8) 11/26/16 23:59 Attending/Attestation - Attestation I have personally seen and examined this patient.: Yes I have fully participated in the care of the patient.: Yes I have reviewed all pertinent clinical information, including history, physical exam and plan: Yes
--- NOTE | 2016-11-25 11:14 | CP.PCM.PN ---
<Rahel Hamilton V - Last Filed: 11/25/16 22:11> Subjective - Date & Time of Evaluation Date of Evaluation: 11/25/16 Objective - Vital Signs/Intake and Output Vital Signs (last 24 hours): Temp Pulse Resp BP Pulse Ox 98.3 F 78 20 160/73 H 100 11/25/16 16:14 11/25/16 17:16 11/25/16 16:14 11/25/16 17:16 11/25/16 16:14 Intake and Output: 11/25/16 11/26/16 18:59 06:59 Intake Total 935 660 Balance 935 660 - Medications Medications: Current Medications Acetaminophen (Tylenol 325mg Tab) 650 mg PO Q4H PRN PRN Reason: Fever >100.5 F Albuterol/Ipratropium (Duoneb 3 Mg/0.5 Mg (3 Ml) Ud) 3 ml IH Q3H PRN PRN Reason: Shortness of Breath Enoxaparin Sodium (Lovenox) [address] [facility] PRN Reason: Protocol Last Admin: 11/24/16 23:14 Dose: 100 mg Furosemide (Lasix) [address] [facility] Last Admin: 11/25/16 18:28 Dose: Not Given Hydralazine HCl (Apresoline) [address] [facility] Last Admin: 11/25/16 17:14 Dose: 50 mg Piperacillin Sod/Tazobactam Sod (Zosyn 4.5 Gm In Ns 100ml) 4.5 gm in 100 mls @ 200 mls/hr IVPB Q6 [facility] PRN Reason: Protocol Stop: 11/28/16 00:01 Last Admin: 11/25/16 17:17 Dose: 200 mls/hr Sodium Chloride (Sodium Chloride 0.45%) 1,000 mls @ 60 mls/hr IV .[id number] [facility] Stop: 11/27/16 08:00 Last Admin: 11/25/16 17:17 Dose: 60 mls/hr Insulin Human Lispro (Humalog Med) [address] [facility] PRN Reason: Protocol Last Admin: 11/25/16 17:15 Dose: 1 units Isosorbide Mononitrate (Imdur) [address] [facility] Last Admin: 11/25/16 09:08 Dose: 60 mg Metoprolol Tartrate (Lopressor) [address] [facility] Last Admin: 11/25/16 17:16 Dose: 25 mg Nicotine (Nicoderm Cq) [address] [facility] Last Admin: 11/25/16 09:17 Dose: 1 patch Ondansetron HCl (Zofran Inj) 4 mg IVP Q4H PRN PRN Reason: Nausea/Vomiting Pantoprazole Sodium (Protonix Inj) [address] [facility] Last Admin: 11/25/16 10:59 Dose: 40 mg Spironolactone (Aldactone) [address] [facility] Last Admin: 11/25/16 09:08 Dose: 25 mg Tramadol HCl (Ultram) 50 mg PO TID PRN PRN Reason: Pain, moderate (4-7) Last Admin: 11/25/16 18:35 Dose: 50 mg Valsartan (Diovan) [address] [facility] Last Admin: 11/25/16 09:08 Dose: 320 mg - Labs Labs: 11/25/16 06:55 11/25/16 06:55 PT 12.7 Seconds (9.9-11.8) H 11/25/16 08:21 INR 1.18 (0.93-1.08) H 11/25/16 08:21 APTT 42.2 Seconds (23.7-30.8) H 11/20/16 19:30 Attending/Attestation - Attestation I have personally seen and examined this patient.: Yes I have fully participated in the care of the patient.: Yes I have reviewed all pertinent clinical information, including history, physical exam and plan: Yes Notes (Text): 11/25/16 22:12 this patient was seen and evaluated earlier, status post transfusion. 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 Patient had also an angiodysplasias which were treated now has this significant anemia with a drop in blood count. [employer] consult was requested to evaluate because of his anemia. Multiple previous endoscopy studies were reviewed On examination abdomen soft and there is no tenderness. Recommendations Multiple previous endoscopy studies reviewed. Patient is high risk for anesthesia deep sedation. May even need to be intubated for the procedure Option to be consider should include a capsule endoscopy and a double balloon enteroscopy evaluations Reasonable now is also to follow conservative management with a long-term iron supplement and follow up of the hemoglobin hematocrit Will discuss with Dr. Maguire regarding the patient <Esther Santos - Last Filed: 11/25/16 22:48> Subjective - Date & Time of Evaluation Date of Evaluation: 11/25/16 Time of Evaluation: 09:15 - Subjective Subjective: Seen and examined at the bedside earlier today. The chart was reviewed. No acute overnight events reported. Patient denies nausea, vomiting, shortness of breath or chest pain,or abdominal pain. No reports of acute overt GI bleed. Objective - Vital Signs/Intake and Output Vital Signs (last 24 hours): Temp Pulse Resp BP Pulse Ox 97.9 F 82 22 165/75 H 98 11/25/16 07:30 11/25/16 09:23 11/25/16 07:30 11/25/16 09:23 11/25/16 07:30 Intake and Output: 11/25/16 11/25/16 06:59 18:59 Intake Total 720 Balance 720 - Medications Medications: Current Medications Acetaminophen (Tylenol 325mg Tab) 650 mg PO Q4H PRN PRN Reason: Fever >100.5 F Albuterol/Ipratropium (Duoneb 3 Mg/0.5 Mg (3 Ml) Ud) 3 ml IH Q3H PRN PRN Reason: Shortness of Breath Enoxaparin Sodium (Lovenox) 100 mg SC Q12H [facility] PRN Reason: Protocol Last Admin: 11/24/16 23:14 Dose: 100 mg Furosemide (Lasix) 40 mg PO BID [facility] Last Admin: 11/25/16 09:20 Dose: Not Given Furosemide (Lasix) 40 mg IVP ONCE ONE Stop: 11/25/16 12:01 Furosemide (Lasix) 40 mg IV ONCE ONE Stop: 11/25/16 14:01 Hydralazine HCl (Apresoline) 50 mg PO BID [facility] Last Admin: 11/25/16 09:08 Dose: 50 mg Vancomycin HCl (Vancomycin 1gm) 1 gm in 250 mls @ 167 mls/hr IVPB Q12H [facility] PRN Reason: Protocol Last Admin: 11/25/16 09:07 Dose: 167 mls/hr Piperacillin Sod/Tazobactam Sod (Zosyn 4.5 Gm In Ns 100ml) 4.5 gm in 100 mls @ 200 mls/hr IVPB Q6 [facility] PRN Reason: Protocol Stop: 11/28/16 00:01 Last Admin: 11/25/16 06:41 Dose: 200 mls/hr Sodium Chloride (Sodium Chloride 0.45%) 1,000 mls @ 60 mls/hr IV .[id number] [facility] Stop: 11/27/16 08:00 Insulin Human Lispro (Humalog Med) [address] [facility] PRN Reason: Protocol Last Admin: 11/25/16 08:25 Dose: Not Given Isosorbide Mononitrate (Imdur) [address] [facility] Last Admin: 11/25/16 09:08 Dose: 60 mg Metoprolol Tartrate (Lopressor) [address] [facility] Last Admin: 11/25/16 09:23 Dose: 25 mg Nicotine (Nicoderm Cq) [address] [facility] Last Admin: 11/25/16 09:17 Dose: 1 patch Ondansetron HCl (Zofran Inj) 4 mg IVP Q4H PRN PRN Reason: Nausea/Vomiting Pantoprazole Sodium (Protonix Inj) [address] [facility] Potassium Chloride (K-Dur 20 Meq Er Tab) 40 meq PO ONCE ONE Stop: 11/25/16 17:01 Spironolactone (Aldactone) [address] [facility] Last Admin: 11/25/16 09:08 Dose: 25 mg Tramadol HCl (Ultram) 50 mg PO TID PRN PRN Reason: Pain, moderate (4-7) Last Admin: 11/24/16 09:20 Dose: 50 mg Valsartan (Diovan) [address] [facility] Last Admin: 11/25/16 09:08 Dose: 320 mg - Labs Labs: 11/25/16 06:55 11/25/16 06:55 PT 12.7 Seconds (9.9-11.8) H 11/25/16 08:21 INR 1.18 (0.93-1.08) H 11/25/16 08:21 APTT 42.2 Seconds (23.7-30.8) H 11/20/16 19:30 - Constitutional Appears: No Acute Distress - Head Exam Head Exam: NORMOCEPHALIC - Eye Exam Eye Exam: absent: Scleral icterus - ENT Exam ENT Exam: Mucous Membranes Moist - Respiratory Exam Respiratory Exam: Decreased Breath Sounds, Rhonchi, NORMAL BREATHING PATTERN. absent: Respiratory Distress - Cardiovascular Exam Cardiovascular Exam: +S1, +S2 - GI/Abdominal Exam GI & Abdominal Exam: Soft (obese), Normal Bowel Sounds. absent: Guarding, Tenderness, Organomegaly, Rebound - Extremities Exam Extremities Exam: Normal Capillary Refill, Pedal Edema. absent: Calf Tenderness - Neurological Exam Neurological Exam: Awake, Oriented x3 - Skin Skin Exam: Dry, Pallor, Warm Assessment and Plan - Assessment and Plan (Free Text) Assessment: Assessment: Left toe gangrenous Anemia History of duodenal angiodysplasia History of multiple colonic polyps History of portal hypertension Peripheral arterial disease Atrial fibrillation CHF COPD Chronic kidney disease Plan: Follow-up H&H Continue iron infusion Continue PPI Lovenox on hold transfuse as needed on IV antibiotics as per ID podiatry following Patient does have high risk for endoscopy procedure in the past, continue to monitor H&H if showed marked downward trend then consider repeating the endoscopy. Seen and discussed with Dr. Hamilton.
--- NOTE | 2016-11-25 12:25 | PCM.PAD ---
PAD Screening - Peripheral Artery Disease Assessment When you walk, do you experience aching, cramping or pain in your legs, thighs, or buttocks: Yes When do you feel the pain: After walking 100 yards If you have pain, does the pain subside with rest: Yes Have you ever been diagnosed with Peripheral Vascular Disease or been diagnosed as having poor circulation: Yes Have you ever had surgery, balloon procedures or stents in your heart, kidneys, belly, legs, or arms: Yes Do you have any painful sores or ulcers on legs or feet that do not heal: Yes Are your legs discolored or bluish: Yes PVD Past Medical & Familial Hx - Past Medical History Hx Tobacco Use: Yes Hx Diabetes Mellitus Type 1: Yes Hx Diabetes Mellitus Type 2: Yes Hx Hypercholesterolemia: Yes Hx Hypertension: Yes Hx Coronary Artery Disease: Yes
--- NOTE | 2016-11-25 14:24 | CP.PCM.PN ---
Subjective - Date & Time of Evaluation Date of Evaluation: 11/25/16 Time of Evaluation: 10:50 - Subjective Subjective: Patient is comfortable on a chair, not in distress, afebrile. Still has occasional pain on her left foot. Objective - Vital Signs/Intake and Output Vital Signs (last 24 hours): Temp Pulse Resp BP Pulse Ox 97.9 F 82 22 165/75 H 98 11/25/16 07:30 11/25/16 09:23 11/25/16 07:30 11/25/16 09:23 11/25/16 07:30 Intake and Output: 11/25/16 11/25/16 06:59 18:59 Intake Total 720 Balance 720 - Medications Medications: Current Medications Acetaminophen (Tylenol 325mg Tab) 650 mg PO Q4H PRN PRN Reason: Fever >100.5 F Albuterol/Ipratropium (Duoneb 3 Mg/0.5 Mg (3 Ml) Ud) 3 ml IH Q3H PRN PRN Reason: Shortness of Breath Enoxaparin Sodium (Lovenox) 100 mg SC Q12H [facility] PRN Reason: Protocol Last Admin: 11/24/16 23:14 Dose: 100 mg Furosemide (Lasix) 40 mg PO BID [facility] Last Admin: 11/25/16 09:20 Dose: Not Given Furosemide (Lasix) 40 mg IVP ONCE ONE Stop: 11/25/16 12:01 Hydralazine HCl (Apresoline) 50 mg PO BID [facility] Last Admin: 11/25/16 09:08 Dose: 50 mg Vancomycin HCl (Vancomycin 1gm) 1 gm in 250 mls @ 167 mls/hr IVPB Q12H [facility] PRN Reason: Protocol Last Admin: 11/25/16 09:07 Dose: 167 mls/hr Piperacillin Sod/Tazobactam Sod (Zosyn 4.5 Gm In Ns 100ml) 4.5 gm in 100 mls @ 200 mls/hr IVPB Q6 [facility] PRN Reason: Protocol Stop: 11/28/16 00:01 Last Admin: 11/25/16 06:41 Dose: 200 mls/hr Sodium Chloride (Sodium Chloride 0.45%) 1,000 mls @ 60 mls/hr IV .[id number] [facility] Stop: 11/27/16 08:00 Insulin Human Lispro (Humalog Med) 0 units SC ACHS [facility] PRN Reason: Protocol Last Admin: 11/25/16 08:25 Dose: Not Given Isosorbide Mononitrate (Imdur) 60 mg PO DAILY [facility] Last Admin: 11/25/16 09:08 Dose: 60 mg Metoprolol Tartrate (Lopressor) 25 mg PO BID [facility] Last Admin: 11/25/16 09:23 Dose: 25 mg Nicotine (Nicoderm Cq) 1 patch TD DAILY [facility] Last Admin: 11/25/16 09:17 Dose: 1 patch Ondansetron HCl (Zofran Inj) 4 mg IVP Q4H PRN PRN Reason: Nausea/Vomiting Potassium Chloride (K-Dur 20 Meq Er Tab) 40 meq PO ONCE ONE Stop: 11/25/16 10:01 Last Admin: 11/25/16 09:09 Dose: 40 meq Spironolactone (Aldactone) 25 mg PO DAILY [facility] Last Admin: 11/25/16 09:08 Dose: 25 mg Tramadol HCl (Ultram) 50 mg PO TID PRN PRN Reason: Pain, moderate (4-7) Last Admin: 11/24/16 09:20 Dose: 50 mg Valsartan (Diovan) 320 mg PO DAILY [facility] Last Admin: 11/25/16 09:08 Dose: 320 mg - Labs Labs: 11/25/16 06:55 11/25/16 06:55 PT 12.7 Seconds (9.9-11.8) H 11/25/16 08:21 INR 1.18 (0.93-1.08) H 11/25/16 08:21 APTT 42.2 Seconds (23.7-30.8) H 11/20/16 19:30 - Constitutional Appears: Non-toxic, No Acute Distress - Head Exam Head Exam: NORMAL INSPECTION - Neck Exam Neck Exam: absent: Meningismus - Respiratory Exam Respiratory Exam: Decreased Breath Sounds - Cardiovascular Exam Cardiovascular Exam: +S1, +S2 - GI/Abdominal Exam GI & Abdominal Exam: Soft. absent: Tenderness - Extremities Exam Additional comments: left foot with dressings in place Assessment and Plan - Assessment and Plan (Free Text) Plan: Assessment left hallux gangrene and foot gangrene, growing Pseudomonas and Citrobacter history of sepsis from UTI, and cellulitis of the left foot history of Ventilator-dependent respiratory failure probably from pulmonary edema and aspiration pneumonia, healthcare-associated history of infected diabetic ulceration of the left hallux associated with trauma with probable peripheral vascular disease, growing MRSA with no evidence of osteomyelitis on MRI S/P arthrectomy and angioplasty of left sided lower extremity vasculature S/P Sepsis with acute hypoxic respiratory failure secondary to left-sided healthcare-associated pneumonia with possible gram positive cocci and/or gram negative bacilli history of sepsis from persistent methicillin-resistant coagulase negative staph bacteremia, probably port infection S/P removal of the port history of Group G Strep bacteremia history of E. coli UTI history of healthcare-associated pneumonia acute renal failure obesity with BMI 38 CAD GERD arthritis history of bilateral knee replacements chronic CHF COPD DM history of breast CA History of Strep bovis bacteremia (2012) S/P Port-a-cath placement Plan will continue Zosyn pending plans for amputation of the left hallux / parts of the left foot will monitor clinically
[2016-11-25] MEDS: Sodium Chloride 0.45% 1,000 ML IV SCH (17:17)
--- NOTE | 2016-11-25 22:39 | CON ---
DATE OF SERVICE: 11/25/2016 SERVICE: Cardiology. ATTENDING PROVIDER: Dr. Brianna Sandra. REASON FOR EVALUATION: Preop evaluation and risk stratification for possible toe amputation, coronary artery disease. BRIEF CLINICAL HISTORY: This is a 71-year-old female with a past medical history significant for diabetes, hypertension, hyperlipidemia, history of COPD, one-vessel coronary artery disease, status post cardiac catheterization, renal insufficiency, chronic atrial fibrillation, on anticoagulation, moderate aortic stenosis, admitted with pain in the right foot and a nonhealing ulcer on the right big toe, possibly requiring amputation, so Cardiology consult was called for preop evaluation and risk stratification. The patient denies any chest pain, denies any shortness of breath, denies any palpitation. PAST MEDICAL HISTORY: Significant for morbid obesity, COPD, chronic atrial fibrillation, moderate aortic stenosis, valve area 1 cm2, CHF secondary to diastolic dysfunction, valvular heart disease, type 2 diabetes. RECENT CARDIAC WORKUP: As follows: The patient had a DARIUS on 04/07/2016, ejection fraction 65%, trace aortic regurgitation, moderate aortic stenosis, valve area 1 cm2, mild tricuspid regurgitation, [id number] mitral regurgitation, status post cardiac catheterization 2-1/2 years ago, single-vessel disease, RCA totally occluded, very well collateralized from LAD, medical treatment recommended. SOCIAL HISTORY: Active tobacco abuse. Denies any history of alcohol abuse. CURRENT MEDICATIONS: The patient was taking at home hydralazine 50 mg b.i.d., guanfacine, Mucinex 200 mg, Coumadin 2.5 mg, valsartan 320 mg, Spiriva 18 mcg, spironolactone 25, Protonix 40, oxycodone, nicotine, metoprolol 25, Xopenex 1.25, isosorbide 60, insulin, Lasix, aspirin, albuterol, Xanax 0.25 mg. ALLERGIES: NO KNOWN DRUG ALLERGIES. REVIEW OF SYSTEMS: As per HPI. PHYSICAL EXAMINATION: VITAL SIGNS: Temperature afebrile, heart rate 82, blood pressure 165/75. HEENT: PERRLA. Extraocular muscles intact. NECK: Supple. No thyromegaly. CHEST: Clear to auscultation. HEART: S1 and S2 regular. ABDOMEN: Soft. EXTREMITIES: Clubbing and cyanosis negative. LABORATORY DATA: WBC 7.6, hemoglobin 7.9, hematocrit 25.9, platelet count 242. Chemistry shows sodium 143, potassium 3.7, chloride 102, bicarb of 30, anion gap of 14, BUN 14, creatinine 0.9, random sugar 128, alkaline phosphatase 134. EKG showed atrial fibrillation, rate of 79, poor RR progression, T wave in II, III, aVF indicative of VT of undetermined age. IMPRESSION: A 71-year-old morbidly obese female with a past medical history significant for chronic obstructive pulmonary disease, chronic atrial fibrillation, on anticoagulation, hypertension, hyperlipidemia, single-vessel coronary artery disease status post cardiac catheterization 2-1/2 years ago, nonobstructive coronary artery disease, chronic renal insufficiency, tobacco abuse, history of gastrointestinal bleed in the past, anemia, admitted with right toe gangrene requiring amputation. Blood cultures are negative. Moderate aortic stenosis in the valve area of 1 cm2. RECOMMENDATIONS: The patient can go for surgery, low-risk procedure, continue perioperative beta-chico, hold anticoagulation, we will give 2 units of packed RBCs, transfuse 2 units and give the 40 of Lasix in between the packed RBC. No absolute contraindication. No evidence of ischemia, no evidence of arrhythmia except baseline AFib, known history of congestive heart failure, preserved LV function. Last echo shows ejection fraction 65%, slight dysfunction, moderate aortic valve area of 1 cm2, moderate aortic stenosis. The patient is at moderate risk for procedure, though procedure itself is very low risk. We will clear the patient to go for this. Continue perioperative beta-chico. Continue a low-dose beta-chico. Continue valsartan, continue hydralazine p.r.n., monitor renal function. We will hold Coumadin, hold Lovenox, give 2 units of blood. We will follow with you. Thank you Dr. Tracey for providing an opportunity in taking care of the patient. Brianna Sandra MD
--- NOTE | 2016-11-26 01:43 | PN ---
DATE: 11/25/2016 SUBJECTIVE: She is comfortable in the chair. Complaining of pain in the left toe. She is altered. She is talking irrelevantly, does not make any sense. She is talking about the things in the past. She has left toe gangrene. Amputation is planned for . Hemoglobin declined to 7.9 g per deciliter. She is scheduled to receive 2 units of blood transfusion, completed 1 unit of blood transfusion in the morning. No fever. No cough with expectoration. She is short of breath and walking short distances, not able to ambulate. She also has history of GI bleed now. REVIEW OF SYSTEMS: As per HPI. Rest of the 12-point review of systems reviewed and negative. PHYSICAL EXAMINATION: GENERAL: Comfortable in chair, in no acute distress. VITAL SIGNS: Temperature 98.3, blood pressure 140/76, respiratory rate 20 per minute, and oxygen saturation 100% on room air, heart rate is 80 per minute. HEENT: Pallor positive. NECK: Supple. CHEST: Air entry present and equal and bilaterally. No added sounds. CARDIOVASCULAR: Atrial fibrillation. No murmur. No gallop. ABDOMEN: Obese, nontender. EXTREMITIES: Left toe gangrene and dressing. Bilateral leg edema 2+. SPINE: Nontender. CENTRAL NERVOUS SYSTEM: Confused, oriented to time and place. Cranial nerves intact. LABORATORY DATA: White count is 7.6, hemoglobin 7.9, hematocrit 25.9, platelet 242. Sodium 143, potassium 3.4, chloride 102, creatinine 0.9. Alkaline phosphatase 34. ASSESSMENT AND PLAN: 1. Left toe gangrene. 2. Atrial fibrillation. 3. Diabetes mellitus type 2. 4. History of gastrointestinal bleed. 5. Chronic anemia. 6. Left breast cancer in remission. 7. Congestive heart failure. 8. Chronic obstructive pulmonary disease. PLAN: Two units of blood transfusion today for severe anemia. She has history of GI bleed. Left toe amputation on . Anticoagulation with Lovenox 100 mg subcutaneous q. 12. We will hold Lovenox daily for night before surgery. Hydralazine 50 mg p.o. b.i.d., continue insulin sliding scale, Imdur 60 mg daily, metoprolol 25 mg p.o. b.i.d.,nicotine patch 1 patch daily, Protonix 40 mg daily. Antibiotics, Zosyn as per ID. Continue Diovan 320 mg daily. Pain control with Ultram 50 mg p.o. t.i.d. Aldactone mg daily. Suellen Oneill MD
--- NOTE | 2016-11-26 06:19 | CP.PCM.PN ---
Subjective - Date & Time of Evaluation Date of Evaluation: 11/26/16 Time of Evaluation: 06:18 - Subjective Subjective: Patient was seen at bedside. Her blood pressure was 191/77. She has no complaints. Denies headache, heaviness in the head, lightheadedness, dizziness, nausea, chest pain, sob, paraesthesia, weakness. ROS:Negative except as mentioned above. Medical record was reviewed. This 71 year old woman was admitted Has PMH of DM, CAD, COPD, HLD, CHF, atrial fibrillation, anemia, left breast cancer, CKD, GERD, left sided lumpectomy. Objective - Vital Signs/Intake and Output Vital Signs (last 24 hours): Temp Pulse Resp BP Pulse Ox 97.6 F 68 20 148/94 H 100 11/26/16 05:14 11/26/16 05:14 11/26/16 05:14 11/26/16 05:14 11/25/16 16:14 Intake and Output: 11/25/16 11/26/16 18:59 06:59 Intake Total 935 1395 Balance 935 1395 - Medications Medications: Current Medications Acetaminophen (Tylenol 325mg Tab) 650 mg PO Q4H PRN PRN Reason: Fever >100.5 F Albuterol/Ipratropium (Duoneb 3 Mg/0.5 Mg (3 Ml) Ud) 3 ml IH Q3H PRN PRN Reason: Shortness of Breath Enoxaparin Sodium (Lovenox) 100 mg SC Q12H [facility] PRN Reason: Protocol Last Admin: 11/24/16 23:14 Dose: 100 mg Furosemide (Lasix) 40 mg PO BID [facility] Last Admin: 11/25/16 18:28 Dose: Not Given Hydralazine HCl (Apresoline) 50 mg PO BID [facility] Last Admin: 11/25/16 17:14 Dose: 50 mg Piperacillin Sod/Tazobactam Sod (Zosyn 4.5 Gm In Ns 100ml) 4.5 gm in 100 mls @ 200 mls/hr IVPB Q6 [facility] PRN Reason: Protocol Stop: 11/28/16 00:01 Last Admin: 11/25/16 23:11 Dose: 200 mls/hr Sodium Chloride (Sodium Chloride 0.45%) 1,000 mls @ 60 mls/hr IV .[id number] [facility] Stop: 11/27/16 08:00 Last Admin: 11/25/16 17:17 Dose: 60 mls/hr Insulin Human Lispro (Humalog Med) 0 units SC ACHS [facility] PRN Reason: Protocol Last Admin: 11/25/16 17:15 Dose: 1 units Isosorbide Mononitrate (Imdur) 60 mg PO DAILY [facility] Last Admin: 11/25/16 09:08 Dose: 60 mg Metoprolol Tartrate (Lopressor) 25 mg PO BID [facility] Last Admin: 11/25/16 17:16 Dose: 25 mg Nicotine (Nicoderm Cq) 1 patch TD DAILY [facility] Last Admin: 11/25/16 09:17 Dose: 1 patch Ondansetron HCl (Zofran Inj) 4 mg IVP Q4H PRN PRN Reason: Nausea/Vomiting Pantoprazole Sodium (Protonix Inj) 40 mg IVP DAILY [facility] Last Admin: 11/25/16 10:59 Dose: 40 mg Spironolactone (Aldactone) 25 mg PO DAILY [facility] Last Admin: 11/25/16 09:08 Dose: 25 mg Tramadol HCl (Ultram) 50 mg PO TID PRN PRN Reason: Pain, moderate (4-7) Last Admin: 11/26/16 00:56 Dose: 50 mg Valsartan (Diovan) 320 mg PO DAILY [facility] Last Admin: 11/25/16 09:08 Dose: 320 mg - Labs Labs: 11/25/16 06:55 11/25/16 06:55 PT 12.7 Seconds (9.9-11.8) H 11/25/16 08:21 INR 1.18 (0.93-1.08) H 11/25/16 08:21 APTT 42.2 Seconds (23.7-30.8) H 11/20/16 19:30 - Constitutional Appears: Well, No Acute Distress - Head Exam Head Exam: ATRAUMATIC, NORMAL INSPECTION, NORMOCEPHALIC - Eye Exam Eye Exam: Normal appearance - ENT Exam ENT Exam: Normal External Ear Exam - Neck Exam Neck Exam: Normal Inspection - Respiratory Exam Respiratory Exam: NORMAL BREATHING PATTERN - Cardiovascular Exam Cardiovascular Exam: absent: JVD - GI/Abdominal Exam GI & Abdominal Exam: absent: Distended - Rectal Exam Rectal Exam: Deferred - Exam Additional comments: Deferred. - Extremities Exam Extremities Exam: Normal Inspection - Back Exam Back Exam: NORMAL INSPECTION - Neurological Exam Neurological Exam: Alert, Oriented x3 - Psychiatric Exam Psychiatric exam: Normal Affect, Normal Mood - Skin Skin Exam: Normal Color Assessment and Plan - Assessment and Plan (Free Text) Assessment: Elevated blood pressure reading. DM. CAD. COPD. HLD. CHF. Atrial fibrillation. Anemia. Left breast cancer. CKD. GERDl Plan: Clonidine .2mg PO now. Recheck blood pressure in one hour. Continue present management.
[2016-11-26] MEDS: Piperacill/Tazo 4.5gm in NS 4.5 GM/100 ML BAG IVPB SCH ×2 (07:30→12:34)
[2016-11-26] MEDS: Insulin Lispro (humaLOG) MEDIUM Coverage SC SCH ×3 (08:05→21:52)
[2016-11-26] MEDS: Sodium Chloride 0.45% 1,000 ML IV SCH ×2 (10:13→21:51)
--- NOTE | 2016-11-26 11:21 | CP.PCM.PN ---
<Esther Santos - Last Filed: 11/26/16 11:20> Subjective - Date & Time of Evaluation Date of Evaluation: 11/26/16 Time of Evaluation: 09:20 - Subjective Subjective: Seen and examined at the bedside earlier today, she completed her blood transfusion earlier this morning, CBC to be drawn. No reports of overt GI bleed. The patient is more awake and alert, denies shortness of breath chest pain. No abdominal pain. She did have a bowel movement this morning it was formed, no melena or bright red blood. Objective - Vital Signs/Intake and Output Vital Signs (last 24 hours): Temp Pulse Resp BP Pulse Ox 97.6 F 68 22 148/94 H 96 11/26/16 07:00 11/26/16 10:10 11/26/16 07:00 11/26/16 10:10 11/26/16 07:00 Intake and Output: 11/26/16 11/26/16 06:59 18:59 Intake Total 1395 360 Balance 1395 360 - Medications Medications: Current Medications Acetaminophen (Tylenol 325mg Tab) 650 mg PO Q4H PRN PRN Reason: Fever >100.5 F Albuterol/Ipratropium (Duoneb 3 Mg/0.5 Mg (3 Ml) Ud) 3 ml IH Q3H PRN PRN Reason: Shortness of Breath Enoxaparin Sodium (Lovenox) 100 mg SC Q12H [facility] PRN Reason: Protocol Last Admin: 11/24/16 23:14 Dose: 100 mg Furosemide (Lasix) 40 mg PO BID [facility] Last Admin: 11/26/16 10:10 Dose: 40 mg Hydralazine HCl (Apresoline) 50 mg PO BID [facility] Last Admin: 11/26/16 10:10 Dose: 50 mg Piperacillin Sod/Tazobactam Sod (Zosyn 4.5 Gm In Ns 100ml) 4.5 gm in 100 mls @ 200 mls/hr IVPB Q6 [facility] PRN Reason: Protocol Stop: 11/28/16 00:01 Last Admin: 11/26/16 07:30 Dose: 200 mls/hr Sodium Chloride (Sodium Chloride 0.45%) 1,000 mls @ 60 mls/hr IV .[id number] [facility] Stop: 11/27/16 08:00 Last Admin: 11/26/16 10:13 Dose: 60 mls/hr Insulin Human Lispro (Humalog Med) 0 units SC ACHS [facility] PRN Reason: Protocol Last Admin: 11/26/16 08:05 Dose: Not Given Isosorbide Mononitrate (Imdur) 60 mg PO DAILY [facility] Last Admin: 11/26/16 10:09 Dose: 60 mg Metoprolol Tartrate (Lopressor) 25 mg PO BID [facility] Last Admin: 11/26/16 10:10 Dose: 25 mg Nicotine (Nicoderm Cq) 1 patch TD DAILY [facility] Last Admin: 11/26/16 10:09 Dose: 1 patch Ondansetron HCl (Zofran Inj) 4 mg IVP Q4H PRN PRN Reason: Nausea/Vomiting Pantoprazole Sodium (Protonix Inj) 40 mg IVP DAILY [facility] Last Admin: 11/26/16 10:09 Dose: 40 mg Spironolactone (Aldactone) 25 mg PO DAILY [facility] Last Admin: 11/26/16 10:10 Dose: 25 mg Tramadol HCl (Ultram) 50 mg PO TID PRN PRN Reason: Pain, moderate (4-7) Last Admin: 11/26/16 10:28 Dose: 50 mg Valsartan (Diovan) 320 mg PO DAILY [facility] Last Admin: 11/26/16 10:09 Dose: 320 mg - Labs Labs: 11/25/16 06:55 11/25/16 06:55 PT 12.7 Seconds (9.9-11.8) H 11/25/16 08:21 INR 1.18 (0.93-1.08) H 11/25/16 08:21 APTT 42.2 Seconds (23.7-30.8) H 11/20/16 19:30 - Constitutional Appears: No Acute Distress - Head Exam Head Exam: NORMOCEPHALIC - Eye Exam Eye Exam: Normal appearance. absent: Scleral icterus - ENT Exam ENT Exam: Mucous Membranes Moist - Neck Exam Neck Exam: Normal Inspection - Respiratory Exam Respiratory Exam: NORMAL BREATHING PATTERN. absent: Respiratory Distress - Cardiovascular Exam Cardiovascular Exam: +S1, +S2 - GI/Abdominal Exam GI & Abdominal Exam: Soft, Normal Bowel Sounds. absent: Guarding, Tenderness, Organomegaly, Rebound Additional comments: obese - Extremities Exam Extremities Exam: Normal Capillary Refill, Pedal Edema. absent: Calf Tenderness Additional comments: left toe dressing in place. - Neurological Exam Neurological Exam: Alert, Awake, Oriented x3 - Skin Skin Exam: Dry, Warm Assessment and Plan - Assessment and Plan (Free Text) Assessment: Assessment: Left toe gangrenous Anemia ,s/p blood transfusion History of duodenal angiodysplasia History of multiple colonic polyps History of portal hypertension Peripheral arterial disease Atrial fibrillation CHF COPD Chronic kidney disease Plan: Follow-up CBC Continue iron infusion Continue PPI Lovenox on hold on IV antibiotics as per ID podiatry following plans for toe amputation, timing as per surgical team Patient does have high risk for endoscopy procedure in the past, continue to monitor H&H if showed marked downward trend then consider repeating the endoscopy. Seen and discussed with Dr. Hamilton. <Rahel Hamilton V - Last Filed: 11/26/16 21:31> Objective - Vital Signs/Intake and Output Vital Signs (last 24 hours): Temp Pulse Resp BP Pulse Ox 97.9 F 110 H 18 161/79 H 94 L 11/26/16 19:00 11/26/16 19:15 11/26/16 19:15 11/26/16 19:15 11/26/16 16:35 Intake and Output: 11/26/16 11/27/16 18:59 06:59 Intake Total 720 Balance 720 - Medications Medications: Current Medications Acetaminophen (Tylenol 325mg Tab) 650 mg PO Q4H PRN PRN Reason: Fever >100.5 F Albuterol/Ipratropium (Duoneb 3 Mg/0.5 Mg (3 Ml) Ud) 3 ml IH Q3H PRN PRN Reason: Shortness of Breath Enoxaparin Sodium (Lovenox) 100 mg SC Q12H [facility] PRN Reason: Protocol Last Admin: 11/24/16 23:14 Dose: 100 mg Furosemide (Lasix) 40 mg PO BID [facility] Last Admin: 11/26/16 10:10 Dose: 40 mg Hydralazine HCl (Apresoline) 50 mg PO BID [facility] Last Admin: 11/26/16 10:10 Dose: 50 mg Piperacillin Sod/Tazobactam Sod (Zosyn 4.5 Gm In Ns 100ml) 4.5 gm in 100 mls @ 200 mls/hr IVPB Q6 [facility] PRN Reason: Protocol Stop: 11/28/16 00:01 Last Admin: 11/26/16 12:34 Dose: Not Given Sodium Chloride (Sodium Chloride 0.45%) 1,000 mls @ 60 mls/hr IV .[id number] [facility] Stop: 11/27/16 08:00 Last Admin: 11/26/16 10:13 Dose: 60 mls/hr Insulin Human Lispro (Humalog Med) 0 units SC ACHS [facility] PRN Reason: Protocol Last Admin: 11/26/16 12:33 Dose: Not Given Isosorbide Mononitrate (Imdur) 60 mg PO DAILY [facility] Last Admin: 11/26/16 10:09 Dose: 60 mg Metoprolol Tartrate (Lopressor) 25 mg PO BID [facility] Last Admin: 11/26/16 10:10 Dose: 25 mg Nicotine (Nicoderm Cq) 1 patch TD DAILY [facility] Last Admin: 11/26/16 10:09 Dose: 1 patch Ondansetron HCl (Zofran Inj) 4 mg IVP Q4H PRN PRN Reason: Nausea/Vomiting Pantoprazole Sodium (Protonix Inj) 40 mg IVP DAILY [facility] Last Admin: 11/26/16 10:09 Dose: 40 mg Spironolactone (Aldactone) 25 mg PO DAILY [facility] Last Admin: 11/26/16 10:10 Dose: 25 mg Tramadol HCl (Ultram) 50 mg PO TID PRN PRN Reason: Pain, moderate (4-7) Last Admin: 11/26/16 21:15 Dose: 50 mg Valsartan (Diovan) 320 mg PO DAILY [facility] Last Admin: 11/26/16 10:09 Dose: 320 mg - Labs Labs: 11/26/16 17:10 11/26/16 17:10 PT 12.7 Seconds (9.9-11.8) H 11/26/16 17:10 INR 1.18 (0.93-1.08) H 11/26/16 17:10 APTT 42.2 Seconds (23.7-30.8) H 11/20/16 19:30 Attending/Attestation - Attestation I have personally seen and examined this patient.: Yes I have fully participated in the care of the patient.: Yes I have reviewed all pertinent clinical information, including history, physical exam and plan: Yes Notes (Text): 11/26/16 21:28 this is an addendum to the GI progress report dictated by Esther Santos APN. The patient was seen and evaluated earlier. Schedule for possible amputation tomorrow. Status post transfusion hemoglobin improved. History of colon polyps history of AVM,GAVE , portal hypertensive gastropathy, history of colon polyps Multiple EGD colonoscopies in the past Continue iron supplements follow-up of the hemoglobin and hematocrit low-dose PPI Would consider push enteroscopy if there is significant drop in blood count or active bleeding Thank you very much for allowing us to participate in the care of the patient
[2016-11-26] MEDS ORDERED: Lidocaine 2% Inj (20ml) ONE ×2 (14:16→14:21)
[2016-11-26] MEDS ORDERED: Iodixanol 320 MG/ML 200 ML BOTTLE IV ONE ×2 (14:16→14:20)
[2016-11-26] MEDS ORDERED: Midazolam 2 MG/2 ML VIAL ONE ×2 (14:51→16:09)
[2016-11-26] MEDS ORDERED: Nitroglycerin 50mg in D5W 50 MG/250 ML BOTTLE IV ONE (15:20)
--- NOTE | 2016-11-26 15:42 | PN ---
DATE: 11/26/2016 REASON FOR CONSULTATION AND FOLLOWUP: Preop evaluation risk stratification for possible amputation of left toe, history of coronary artery disease, severe aortic stenosis. SUBJECTIVE: The patient is a 71-year-old female. The patient denies any chest pain, shortness of breath, any palpitation. PHYSICAL EXAMINATION: GENERAL: Sitting on the chair, had breakfast and should be NPO for possible OR today. VITAL SIGNS: Temperature afebrile, heart rate 60, and blood pressure 148/94. HEENT: PERRLA. Extraocular muscles intact. NECK: Supple. No carotid or thyromegaly. CHEST: Clear to auscultation. HEART: S1 and S2 regular. ABDOMEN: Soft. EXTREMITIES: Clubbing and cyanosis negative. LABORATORY DATA: Blood workup as follows: WBC 7.6, hemoglobin 7.9, hematocrit 25.9, and platelet count 249 as of yesterday. Yesterday, sodium 140 and potassium 3.4. IMPRESSION: A 71-year-old female with past medical history of obesity, chronic obstructive pulmonary disease, chronic atrial fibrillation off anticoagulation. Last transesophageal echocardiogram shows ejection fraction 65%, diastolic dysfunction, moderate aortic stenosis 1 cm2 area, history of single vessel coronary artery, right coronary artery very well collateralized from left anterior descending, admitted with gangrene of the toe requiring OR and amputation of the toe. The patient also is status post two packed RBC RECOMMENDATION: Follow CBC to be drawn today. Keep hemoglobin 10. Continue preoperative beta-[place]. The patient is at moderate risk of procedure though the procedure itself is very low risk, amputation of the toe, but because of the comorbidity and moderate risk, but no absolute no evidence of acute arrhythmia except baseline atrial fibrillation. No evidence of CHF. Monitor H and H. We will repeat H and H tomorrow as well. Today, lab is pending, status post two packed RBC blood transfusion. We will follow with you. Thank you Dr. Kirby as well as Dr. Tracey for providing an opportunity in taking care of the patient. Brianna Sandra MD
[2016-11-26] MEDS ORDERED: Iodixanol 320 MG/ML 100 ML BOTTLE IV ONE (16:25)
[2016-11-26] MEDS ORDERED: Potassium Chloride 20 mEq/15 ml LIQ UD ONE (16:32)
[2016-11-26] MEDS ORDERED: Heparin 25,000units in D5W 25,000 UNITS/250 ML BAG IV ONE (16:33)
[2016-11-26] MEDS ORDERED: Heparin 25,000units in D5W 25,000 UNITS/250 ML BAG IV PRN (17:09)
[2016-11-26 17:45] LABS: HEMATOCRIT 32.3 % (36.0-48.0); MEAN CORPUSCULAR HEMOGLOBIN 28.7 pg (25.0-35.0); MEAN CORPUSCULAR HGB CONC 31.9 g/dl (31.0-37.0); RED CELL DISTRIBUTION WIDTH 17.1 % (11.5-14.5); WHITE BLOOD COUNT 11.4 10^3/ul (4.5-11.0)
[2016-11-26 17:49] LABS: ALB/GLOB RATIO 1.3 (1.1-1.8); ALKALINE PHOSPHATASE 150 U/L (38-126); ALT/SGPT 29 U/L (7-56); AST/SGOT 20 U/L (14-36); BILIRUBIN,TOTAL 0.8 mg/dL (0.2-1.3); BLOOD UREA NITROGEN 11 mg/dL (7-21); CALCIUM 9.4 mg/dL (8.4-10.5); CARBON DIOXIDE 28 mmol/L (21-33); CHLORIDE 100 mmol/L (98-107); GFR AFRICAN-AMERICAN > 60; GLUCOSE,RANDOM 183 mg/dL (70-110); MAGNESIUM 1.5 mg/dL (1.7-2.2); PHOSPHOROUS 4.2 mg/dL (2.5-4.5); POTASSIUM 4.2 mmol/L (3.6-5.0); SODIUM 140 mmol/L (132-148); TOTAL PROTEIN 6.8 g/dL (5.8-8.3)
--- NOTE | 2016-11-26 18:16 | CP.PCM.PN ---
Subjective - Date & Time of Evaluation Date of Evaluation: 11/26/16 Time of Evaluation: 11:45 - Subjective Subjective: Afebrile, not in distress. Objective - Vital Signs/Intake and Output Vital Signs (last 24 hours): Temp Pulse Resp BP Pulse Ox 97.6 F 68 22 148/94 H 96 11/26/16 07:00 11/26/16 07:00 11/26/16 07:00 11/26/16 07:00 11/26/16 07:00 Intake and Output: 11/26/16 11/26/16 06:59 18:59 Intake Total 1395 360 Balance 1395 360 - Medications Medications: Current Medications Acetaminophen (Tylenol 325mg Tab) 650 mg PO Q4H PRN PRN Reason: Fever >100.5 F Albuterol/Ipratropium (Duoneb 3 Mg/0.5 Mg (3 Ml) Ud) 3 ml IH Q3H PRN PRN Reason: Shortness of Breath Enoxaparin Sodium (Lovenox) 100 mg SC Q12H [facility] PRN Reason: Protocol Last Admin: 11/24/16 23:14 Dose: 100 mg Furosemide (Lasix) 40 mg PO BID [facility] Last Admin: 11/25/16 18:28 Dose: Not Given Hydralazine HCl (Apresoline) 50 mg PO BID [facility] Last Admin: 11/25/16 17:14 Dose: 50 mg Piperacillin Sod/Tazobactam Sod (Zosyn 4.5 Gm In Ns 100ml) 4.5 gm in 100 mls @ 200 mls/hr IVPB Q6 [facility] PRN Reason: Protocol Stop: 11/28/16 00:01 Last Admin: 11/26/16 07:30 Dose: 200 mls/hr Sodium Chloride (Sodium Chloride 0.45%) 1,000 mls @ 60 mls/hr IV .[id number] [facility] Stop: 11/27/16 08:00 Last Admin: 11/25/16 17:17 Dose: 60 mls/hr Insulin Human Lispro (Humalog Med) 0 units SC ACHS [facility] PRN Reason: Protocol Last Admin: 11/26/16 08:05 Dose: Not Given Isosorbide Mononitrate (Imdur) 60 mg PO DAILY [facility] Last Admin: 11/25/16 09:08 Dose: 60 mg Metoprolol Tartrate (Lopressor) 25 mg PO BID [facility] Last Admin: 11/25/16 17:16 Dose: 25 mg Nicotine (Nicoderm Cq) 1 patch TD DAILY [facility] Last Admin: 11/25/16 09:17 Dose: 1 patch Ondansetron HCl (Zofran Inj) 4 mg IVP Q4H PRN PRN Reason: Nausea/Vomiting Pantoprazole Sodium (Protonix Inj) 40 mg IVP DAILY [facility] Last Admin: 11/25/16 10:59 Dose: 40 mg Spironolactone (Aldactone) 25 mg PO DAILY [facility] Last Admin: 11/25/16 09:08 Dose: 25 mg Tramadol HCl (Ultram) 50 mg PO TID PRN PRN Reason: Pain, moderate (4-7) Last Admin: 11/26/16 00:56 Dose: 50 mg Valsartan (Diovan) 320 mg PO DAILY [facility] Last Admin: 11/25/16 09:08 Dose: 320 mg - Labs Labs: 11/25/16 06:55 11/25/16 06:55 PT 12.7 Seconds (9.9-11.8) H 11/25/16 08:21 INR 1.18 (0.93-1.08) H 11/25/16 08:21 APTT 42.2 Seconds (23.7-30.8) H 11/20/16 19:30 - Constitutional Appears: Non-toxic, No Acute Distress - Head Exam Head Exam: NORMAL INSPECTION - ENT Exam ENT Exam: Mucous Membranes Moist - Respiratory Exam Respiratory Exam: Decreased Breath Sounds - Cardiovascular Exam Cardiovascular Exam: +S1, +S2 - GI/Abdominal Exam GI & Abdominal Exam: Soft. absent: Tenderness - Extremities Exam Additional comments: left foot with dressings in place Assessment and Plan - Assessment and Plan (Free Text) Plan: Assessment left hallux gangrene and foot gangrene, growing Pseudomonas and Citrobacter history of sepsis from UTI, and cellulitis of the left foot history of Ventilator-dependent respiratory failure probably from pulmonary edema and aspiration pneumonia, healthcare-associated history of infected diabetic ulceration of the left hallux associated with trauma with probable peripheral vascular disease, growing MRSA with no evidence of osteomyelitis on MRI S/P arthrectomy and angioplasty of left sided lower extremity vasculature S/P Sepsis with acute hypoxic respiratory failure secondary to left-sided healthcare-associated pneumonia with possible gram positive cocci and/or gram negative bacilli history of sepsis from persistent methicillin-resistant coagulase negative staph bacteremia, probably port infection S/P removal of the port history of Group G Strep bacteremia history of E. coli UTI history of healthcare-associated pneumonia acute renal failure obesity with BMI 38 CAD GERD arthritis history of bilateral knee replacements chronic CHF COPD DM history of breast CA History of Strep bovis bacteremia (2012) S/P Port-a-cath placement Plan will continue Zosyn pending plans for amputation of the left hallux / parts of the left foot (for possible amputation tomorrow) will continue to monitor clinically
[2016-11-26 18:19] LABS: IRON 147 ug/dL (45-180)
[2016-11-26] MEDS ORDERED: D5W IV ONE (18:28)
[2016-11-26] MEDS ORDERED: HEPARIN IV ONE (18:28)
[2016-11-26 18:39] LABS: INR 1.18 (0.93-1.08)
--- NOTE | 2016-11-26 18:40 | VASCULAR ---
PROCEDURE: 1. Abdominal aortogram and bilateral lower extremity runoff with left selective views. 2. Left posterior tibial artery angioplasty 3. Left anterior tibial artery CS I atherectomy and angioplasty 4. Rescue thrombolysis left tibioperoneal trunk and tibial arteries. HISTORY: Severe peripheral vascular disease. Recent left lower extremity endovascular intervention. Persistent ischemia left foot with gangrene left great toe. Needs amputation. Re- evaluate for subacute thrombosis. Smoker. Diabetes. PHYSICIAN(S): Maldonado Barnett M.D. TECHNIQUE: The relative risks and indications of the procedure were explained to the patient and consent obtained. The patient was hydrated prior to the procedure and the appropriate labs drawn. The patient was placed supine on the arteriogram table and the right groin prepped and draped in the usual sterile fashion. Conscious sedation and monitoring were provided throughout the procedure by a nurse. Via a right common femoral artery approach, a 5 Wallisian sheath was placed in the right groin. Through the sheath and over a guidewire, a 5 Wallisian flush catheter was placed in the abdominal aorta at the level of the distal aorta and bilateral oblique abdominal and pelvic arteriograms performed. Overlapping bilateral lower extremity DSA arteriograms were obtained from the inguinal ligaments to the ankles. A 0.035 angled Glidewire was advanced over the bifurcation and placed in the distal left SFA. With some difficulty a 6 Wallisian 65 cm sheath was advanced over the bifurcation to the right common iliac artery stent and placed in the distal left SFA. Heparin 7500units IV and nitroglycerin in 250 mcg aliquots were given. During sheath placement a small embolus was noted in the left tibioperoneal trunk. A 5 Wallisian Trailblazer catheter was placed the tibioperoneal trunk and rescue thrombolysis performed with a total of 12 mg tPA. The clots were chased into the tibial arteries and resolved. 0.014 support wire was placed in the distal left posterior tibial artery. The severe stenosis in the mid left posterior tibial artery was dilated with a 3.0 x 4 cm balloon. The residual stenosis at the origin of the left posterior tibial artery was dilated with the same 3.0 mm balloon. Antegrade flow was re-established. Next the long segment calcified occlusion of the left anterior tibial artery was crossed with 5 Wallisian catheter and 0.035 glidewire. Exchange is made for a 0.017 Viper support wire. CS I atherectomy of the proximal and mid left anterior tibial artery was performed with 1.25 mm micro eladio. The mid and distal left anterior tibial artery was dilated with a 0.0 x 200 mm balloon. The proximal left anterior tibial artery was dilated with a 3.5 x 8 cm balloon. Slow antegrade flow was noted. Additional imaging distally and revealed significant pedal occlusive disease with some small emboli. Additional tPA was given in the small vessels of the foot along with Vasodilators. Completion arteriograms were obtained. The sheath was removed and hemostasis obtained with a Perclose device. Heparin IV will be continued overnight along with IV fluids. The patient tolerated the procedure well. 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 Vascular calcification is seen. The stent in the right common iliac artery origin is widely patent. Common iliac arteries are calcified but patent. The external iliac arteries are somewhat tortuous and patent. The internal iliac arteries are patent bilaterally. Right lower extremity: The right common femoral artery is patent. The right profunda femoral artery is hypertrophied.. The right superficial femoral artery is calcified and patent with a severe E centric stenosis is in its mid segment. Right popliteal artery is somewhat obscured by the knee replacement. The visualized segments are patent. The right trifurcation is intact. There is 3 vessel runoff via the right anterior tibial, peroneal, and posterior tibial arteries. The right posterior tibial artery is small and diffusely diseased. The right anterior tibial artery is a predominant supply to the foot.. Left lower extremity: Left common femoral artery is patent. The left profunda femoral artery is patent. The previously treated left SFA is widely patent with brisk flow. No re- stenosis is seen. The left popliteal artery is patent on two views, though somewhat obscured by the knee joint replacement. There is narrowing at the left posterior tibial artery origin. There is a critical stenosis of the mid left posterior tibial artery. The left peroneal artery is patent. There is long segment occlusive disease of the left anterior tibial artery. There is severe left pedal occlusive disease. IMPRESSION: 1.Successful recanalization of a long segment occlusion of the left anterior tibial artery utilizing CS I atherectomy and angioplasty P 2. Successful focal angioplasty of the proximal and mid left posterior tibial artery. 3. The previously treated left SFA and popliteal segments are widely patent. 4. Severe left pedal occlusive disease. 5. Successful rescue thrombolysis of small emboli in the left tibioperoneal trunk and distal tibial vessels.
--- NOTE | 2016-11-26 18:41 | VASCULAR ---
PROCEDURE: Ultrasound and fluoroscopically placed right upper extremity PICC line. HISTORY: Left foot gangrene. Long-term IV antibiotics. Limited IV access. PHYSICIAN(S): Maldonado Barnett MD. TECHNIQUE: The relative risks and indications of the procedure were explained to the patient and consent obtained. The patient was placed supine on the arteriogram table and the right arm prepped and draped in the usual sterile fashion. A tourniquet was applied to the right axilla. 1% Xylocaine was used to anesthetize the skin and soft tissues at the puncture site above the elbow. The right basilic vein was punctured under direct ultrasound guidance with a micropuncture set. A 0.018 guidewire was advanced centrally and used to measure the length to the SVC/RA junction. A 5 Bahamian single-lumen PICC line 46 cm long was advanced to the SVC/RA junction. The catheter was flushed and secured. The patient tolerated the procedure well. IMPRESSION: 1. Ultrasound and fluoroscopically placed right upper extremity PICC line. A 5 Bahamian single-lumen PICC line 46 cm long was advanced to the SVC/RA junction.
[2016-11-27] MEDS: Piperacill/Tazo 4.5gm in NS 4.5 GM/100 ML BAG IVPB SCH ×5 (00:29→23:41)
[2016-11-27] MEDS ORDERED: Lidocaine 2% Inj (20ml) ONE ×2 (07:43→08:26)
[2016-11-27 07:49] LABS: BASO # 0.03 K/mm3 (0.0-2.0); BASO % 0.3 % (0.0-3.0); EOS # 0.2 (0.0-0.7); EOS % 2.2 % (1.5-5.0); GRAN # 8.63 (1.4-6.5); GRAN % 87.3 % (50.0-68.0); HEMATOCRIT 28.5 % (36.0-48.0); LYMPH # 0.5 (1.2-3.4); LYMPH % 5.4 % (22.0-35.0); MEAN CELL VOLUME 88.8 fl (80.0-105.0); MEAN CORPUSCULAR HGB CONC 31.6 g/dl (31.0-37.0); MEAN PLATELET VOLUME 8.8 fl (7.0-11.0); MONO # 0.5 (0.1-0.6); MONO % 4.8 % (1.0-6.0); WHITE BLOOD COUNT 9.9 10^3/ul (4.5-11.0)
[2016-11-27 08:02] LABS: ALB/GLOB RATIO 1.3 (1.1-1.8); ALKALINE PHOSPHATASE 119 U/L (38-126); ALT/SGPT 13 U/L (7-56); AST/SGOT 16 U/L (14-36); BILIRUBIN,TOTAL 0.7 mg/dL (0.2-1.3); BLOOD UREA NITROGEN 10 mg/dL (7-21); CALCIUM 9.3 mg/dL (8.4-10.5); CARBON DIOXIDE 33 mmol/L (21-33); CHLORIDE 100 mmol/L (98-107); GFR AFRICAN-AMERICAN > 60; GLUCOSE,RANDOM 126 mg/dL (70-110); MAGNESIUM 1.5 mg/dL (1.7-2.2); PHOSPHOROUS 3.4 mg/dL (2.5-4.5); POTASSIUM 3.4 mmol/L (3.6-5.0); SODIUM 140 mmol/L (132-148)
[2016-11-27] MEDS ORDERED: Lactated Ringer's 1,000 ML IV SCH (08:07)
[2016-11-27] MEDS ORDERED: Midazolam 2 MG/2 ML VIAL ONE (08:15)
[2016-11-27] MEDS ORDERED: Bupivacaine 0.5% Inj(30mL) ONE (08:26)
--- NOTE | 2016-11-27 10:00 | PCM.SURG1 ---
Surgeon's Initial Post Op Note - Surgeon's Notes Surgeon: Dr. Hoffman Access Analyst: Dr. De Leon PGY-2 Type of Anesthesia: IV Sedation, Local Anesthesia Administered By: Dr. Block Pre-Operative Diagnosis: left foot hallux gangrene Operative Findings: see dictation. 17 CC 2% lidocaine plain. 3-0 vicryl, 4-0 nylon Post-Operative Diagnosis: same Operation Performed: left foot hallux amputation with metatarsal head resection Specimen/Specimens Removed: bone and soft tissue Estimated Blood Loss: EBL {In ML}: 10 Blood Products Given: N/A Drains Used: No Drains Post-Op Condition: Good Date of Surgery/Procedure: 11/27/16 Time of Surgery/Procedure: 10:00
--- NOTE | 2016-11-27 11:27 | RAD ---
PROCEDURE: Left foot three views HISTORY: s/p left foot surgery COMPARISON: TECHNIQUE: Three views portable FINDINGS: There has been amputation of the big toe. There is also partial resection of the head of the 1st metatarsal. The study is otherwise unremarkable IMPRESSION: Postoperative changes big toe
[2016-11-27] MEDS: Insulin Lispro (humaLOG) MEDIUM Coverage SC SCH ×4 (11:30→22:33)
[2016-11-27] MEDS: Oxycodone/Acetaminophen 5/325 mg Tab PO PRN ×2 (11:31→22:38)
[2016-11-27] MEDS ORDERED: Potassium Chloride 20 mEq ER Tab PO STA (14:47)
[2016-11-27 17:35] VITALS: RESP 20
--- NOTE | 2016-11-27 19:25 | PN ---
DATE: 11/27/2016 SUBJECTIVE: The patient is in bed, in no acute distress, nontoxic. PHYSICAL EXAMINATION: VITAL SIGNS: Temperature is 98, blood pressure is 140/80, respiratory rate of 18, heart rate of 77. HEENT: Unremarkable. NECK: Supple. LUNGS: Decreased breath sounds. HEART: Normal S1 and S2. ABDOMEN: Soft, nontender. LABORATORY DATA: Reveals a white count of 9.9, hemoglobin of 9, platelets of 216. BUN of 10, creatinine of 0.7. Procalcitonin is negative. Microbiology is noted. ASSESSMENT AND PLAN: A 71-year-old female with left hallux gangrene and foot gangrene, Pseudomonas and Citrobacter, history of sepsis with urinary tract infection and cellulitis in the left foot. The patient has a history of group B strep bacteremia, history of Escherichia coli urinary tract infection, history of healthcare associate pneumonia, acute renal failure, obesity, body mass index of 38, chronic obstructive lung disease, diabetes, history of breast cancer, Streptococcus bovis bacteremia and the patient is scheduled for amputation of left hallux today and currently on Zosyn. The patient was seen early this morning, waiting for her first toe amputation, on Zosyn. Benjamin Obrien MD
--- NOTE | 2016-11-27 20:11 | PN ---
REASON FOR CONSULTATION: Followup preop evaluation, risk stratification for possible amputation of the toe, history of coronary artery disease, moderate aortic stenosis with valve area of 1.0 sq cm. SUBJECTIVE: Denies any chest pain, shortness of breath, any palpitation, waiting to go to OR. OBJECTIVE: GENERAL: Not in apparent distress, sitting in chair, waiting to go to the OR. VITAL SIGNS: Temperature afebrile, heart rate 84, blood pressure 146/81. HEENT: PERRLA. Extraocular muscles intact. NECK: Supple. No carotid bruit. No thyromegaly. CHEST: Clear to auscultation. HEART: S1 and S2 regular. ABDOMEN: Soft. EXTREMITIES: Clubbing and cyanosis negative. LABORATORY DATA: Blood workup as follows: WBC 9.0, hemoglobin 9.0, hematocrit 28.5, platelet 216. Chemistry shows sodium 140, potassium 3.4, chloride 100, bicarbonate 33, anion gap of 10, BUN 10, creatinine 1.0. IMPRESSION: Anemia, status post packed red blood cells transfusion, moderate aortic stenosis, one-vessel coronary artery disease, chronic atrial fibrillation, off anticoagulation for amputation of toe today. RECOMMENDATION: Continue perioperative clonidine. Continue valsartan. Continue . Continue beta [place]. Anticoagulation on hold for amputation and when amputation is completed, we will restart anticoagulation. Supplement potassium. We will follow with you after the surgery. We will repeat blood workup tomorrow. Thank you Dr. Wooten for providing me the opportunity in taking care of the patient Esther Baxter. Brianna Sandra MD cc: Da Wooten MD
--- NOTE | 2016-11-27 20:32 | OP ---
PROCEDURE DATE: 11/27/2016 PREOPERATIVE DIAGNOSIS: Left foot hallux gangrene. POSTOPERATIVE DIAGNOSIS: Left foot hallux gangrene. PROCEDURE: Left foot hallux amputation with partial metatarsal head resection. SURGEON: Nikia Hoffman DPM STORE MANAGER: Laisha De Leon PGY2 TYPE OF ANESTHESIA: IV sedation with local. ANESTHESIA ADMINISTERED BY: Dr. Block INDICATIONS: The patient is a 71-year-old female with the above diagnosis. The patient has exhausted all conservative treatments at this time and now requests surgical intervention. The patient signed the consent after careful explanation of risks, benefits, complications, and alternatives for surgical procedure. No guarantees were given nor implied. PREPARATION: The patient was brought into the operating room and placed on the operating room table in a supine position. A time-out was performed for identification of the correct patient and procedure. After induction of IV sedation the patient received a total of 17 mL of 2% lidocaine plain in a local block-type fashion to the left foot. Once local anesthesia was achieved, the left foot was then prepped and draped in normal sterile manner and the procedure began. No tourniquet was used during the procedure. DESCRIPTION OF PROCEDURE: Left foot hallux amputation with partial first metatarsal head resection. Attention was directed to the left first metatarsal where a rocket-type incision was made circumferentially at the level of the first metatarsophalangeal joint using a #15 blade. The incision was then extended down to the subcutaneous layer down to the level of bone. Using a bone clamp to stabilize the toe, the first digit was then disarticulated from the foot at the level of the first metatarsophalangeal joint. The specimen was then passed from the operative filed and sent to pathology. Using a #15 blade, all necrotic and nonviable tissue was then excisionally debrided from the surgical site. Next, utilizing a #15 blade all periosteal tissue was carefully resected off of the metatarsal head. Using a sagittal saw, the distal aspect of the first metatarsal head was then resected and passed from the operative field. The surgical site was then irrigated with copious amounts of normal sterile saline. The subcutaneous tissue was then reapproximated with 3-0 Vicryl and the skin layers were then reapproximated using 4-0 nylon. The left foot was then dressed with Xeroform, 4 x 4 gauze, ABD pads, Kerlix, and Coban. POSTOPERATIVE CONDITION: The patient tolerated the anesthesia and procedure well and was escorted to the recovery room with vital signs stable and neurovascular status intact to the left foot. The patient is to be weightbearing to the left lower extremity with a forefoot wedged Darco shoe and podiatry will continue to follow the patient while the patient remains in-house. Laisha De Leon DPM
[2016-11-27] MEDS ORDERED: Sodium Chloride 0.45% 1,000 ML IV SCH (21:45)
--- NOTE | 2016-11-28 02:01 | PN ---
DATE: 11/27/2016 SUBJECTIVE: She is comfortable in bed, sedated. She underwent left toe amputation today in the OR by Dr. Hoffman because of the gangrene. She received 2 units of blood transfusion yesterday. Denies any pain. No shortness of breath. REVIEW OF SYSTEMS: As per HPI. Rest of 12-point review of systems reviewed and negative. PHYSICAL EXAMINATION GENERAL: Comfortable in bed, sedated, arousable. VITAL SIGNS: Stable. Temperature is 98.6, heart rate 87 per minute, blood pressure 130/60, respiratory rate 20 per minute, pulse ox is 98% on room air. HEENT: Normal pallor positive. NECK: Supple. CHEST: Air entry present and equal bilaterally. No added sounds. CARDIOVASCULAR: Within normal limits. ABDOMEN: Soft and nontender. No hepatosplenomegaly. EXTREMITIES: Left foot in dressing. Right foot 2+ edema. LABORATORY DATA: White count 9.9, hemoglobin 9, hematocrit 28.5, and platelet count 216. Sodium 140, potassium 3.4, Bun 10, creatinine 0.7. PTT 39.6. MEDICATIONS: Tylenol 650 q. 4 hours p.r.n., DuoNeb p.r.n., Lovenox 100 mg subcutaneous q. 12 on hold, Lasix 40 mg b.i.d., hydralazine 50 mg p.o. b.i.d., Imdur 60 mg p.o. daily, metoprolol 25 mg p.o. b.i.d., Nicotine 1 patch daily, Zofran 4 mg IV q. 4 hours p.r.n. for pain, Percocet p.r.n. for pain, Protonix, spironolactone 25 mg daily, Diovan 320 mg daily, Protonix 40 mg IV daily. ASSESSMENT AND PLAN: 1. Left toe gangrene. 2. Congestive heart failure. 3. Anemia. 4. History of breast cancer, left-sided. 5. Chronic obstructive pulmonary disease. 6. Atrial fibrillation. PLAN: She underwent amputation of the left toe in the OR today, sedated right now, anticoagulation is on hold today. We can resume from tomorrow. Lovenox full dose anticoagulation for atrial fibrillation if no bleeding from the amputation site. Continue cardiac medications, Imdur. Continue nicotine patch. Continue hydralazine. Hemoglobin and hematocrit stable status post 2 units of blood transfusion. We will monitor the blood count. COPD, no issues. CHF compensated. Suellen Oneill MD [facility]
[2016-11-28 07:07] LABS: BASO # 0.03 K/mm3 (0.0-2.0); BASO % 0.4 % (0.0-3.0); EOS # 0.3 (0.0-0.7); EOS % 3.7 % (1.5-5.0); GRAN # 6.82 (1.4-6.5); GRAN % 80.5 % (50.0-68.0); HEMATOCRIT 28.4 % (36.0-48.0); LYMPH # 0.7 (1.2-3.4); LYMPH % 8.2 % (22.0-35.0); MEAN CORPUSCULAR HEMOGLOBIN 27.9 pg (25.0-35.0); MEAN CORPUSCULAR HGB CONC 30.6 g/dl (31.0-37.0); MONO # 0.6 (0.1-0.6); MONO % 7.2 % (1.0-6.0); RED CELL DISTRIBUTION WIDTH 17.2 % (11.5-14.5); WHITE BLOOD COUNT 8.5 10^3/ul (4.5-11.0)
[2016-11-28 07:43] LABS: ALB/GLOB RATIO 1.3 (1.1-1.8); ALKALINE PHOSPHATASE 115 U/L (38-126); ALT/SGPT 26 U/L (7-56); AST/SGOT 17 U/L (14-36); BILIRUBIN,TOTAL 0.4 mg/dL (0.2-1.3); BLOOD UREA NITROGEN 10 mg/dL (7-21); CALCIUM 9.1 mg/dL (8.4-10.5); CARBON DIOXIDE 35 mmol/L (21-33); CHLORIDE 99 mmol/L (98-107); GFR AFRICAN-AMERICAN > 60; GLUCOSE,RANDOM 155 mg/dL (70-110); MAGNESIUM 1.5 mg/dL (1.7-2.2); PHOSPHOROUS 3.3 mg/dL (2.5-4.5); POTASSIUM 3.2 mmol/L (3.6-5.0); SODIUM 142 mmol/L (132-148)
[2016-11-28] MEDS ORDERED: Magnesium Sulfate 1 gm in D5W 1 GM/100 ML BAG IVPB ONE (08:54)
[2016-11-28] MEDS: Insulin Lispro (humaLOG) MEDIUM Coverage SC SCH ×5 (09:02→21:25)
[2016-11-28] MEDS ORDERED: Potassium Chloride 20 mEq ER Tab PO ONE (09:05)
[2016-11-28] MEDS: Oxycodone/Acetaminophen 5/325 mg Tab PO PRN ×2 (09:49→17:17)
--- NOTE | 2016-11-28 11:39 | CP.PCM.PN ---
<Laisha De Leon - Last Filed: 11/28/16 11:36> Subjective - Date & Time of Evaluation Date of Evaluation: 11/28/16 Time of Evaluation: 11:36 - Subjective Subjective: 71 y/o female seen at bedside with Dr. Henriquez 1 day s/p left hallux amputation. Patient denies any acute events overnight. patient denies any pain in her foot. patient's dressing remains clean,dry,intact. Patient denies any F/C/N/V/SOB. Objective - Vital Signs/Intake and Output Vital Signs (last 24 hours): Temp Pulse Resp BP Pulse Ox 98.4 F 79 20 177/86 H 97 11/28/16 07:30 11/28/16 07:30 11/28/16 07:30 11/28/16 09:03 11/28/16 07:30 Intake and Output: 11/28/16 11/28/16 06:59 18:59 Intake Total 660 Output Total 2500 Balance -1840 - Medications Medications: Current Medications Acetaminophen (Tylenol 325mg Tab) 650 mg PO Q4H PRN PRN Reason: Fever >100.5 F Albuterol/Ipratropium (Duoneb 3 Mg/0.5 Mg (3 Ml) Ud) 3 ml IH Q3H PRN PRN Reason: Shortness of Breath Enoxaparin Sodium (Lovenox) 100 mg SC Q12H [facility] PRN Reason: Protocol Last Admin: 11/24/16 23:14 Dose: 100 mg Enoxaparin Sodium (Lovenox) 40 mg SC DAILY [facility] PRN Reason: Protocol Furosemide (Lasix) 40 mg PO BID [facility] Last Admin: 11/28/16 09:03 Dose: 40 mg Hydralazine HCl (Apresoline) 50 mg PO BID [facility] Last Admin: 11/28/16 09:04 Dose: 50 mg Piperacillin Sod/Tazobactam Sod (Zosyn 4.5 Gm In Ns 100ml) 4.5 gm in 100 mls @ 200 mls/hr IVPB Q6 [facility] PRN Reason: Protocol Stop: 11/28/16 18:29 Insulin Human Lispro (Humalog Med) 0 units SC ACHS [facility] PRN Reason: Protocol Last Admin: 11/28/16 09:03 Dose: 3 units Isosorbide Mononitrate (Imdur) 60 mg PO DAILY [facility] Last Admin: 11/28/16 09:04 Dose: 60 mg Metoprolol Tartrate (Lopressor) 25 mg PO BID [facility] Last Admin: 11/28/16 09:04 Dose: 25 mg Nicotine (Nicoderm Cq) 1 patch TD DAILY [facility] Last Admin: 11/28/16 09:06 Dose: 1 patch Ondansetron HCl (Zofran Inj) 4 mg IVP Q4H PRN PRN Reason: Nausea/Vomiting Oxycodone/Acetaminophen (Percocet 5/325 Mg Tab) 1 tab PO Q4H PRN PRN Reason: Pain, moderate (4-7) Stop: 11/30/16 10:03 Last Admin: 11/28/16 09:49 Dose: 1 tab Oxycodone/Acetaminophen (Percocet 5/325 Mg Tab) 2 tab PO Q4H PRN PRN Reason: Pain, severe (8-10) Stop: 11/30/16 10:03 Last Admin: 11/27/16 22:38 Dose: 2 tab Pantoprazole Sodium (Protonix Inj) 40 mg IVP DAILY [facility] Last Admin: 11/28/16 09:50 Dose: 40 mg Spironolactone (Aldactone) 25 mg PO DAILY [facility] Last Admin: 11/28/16 09:04 Dose: 25 mg Valsartan (Diovan) 320 mg PO DAILY [facility] Last Admin: 11/28/16 09:04 Dose: 320 mg - Labs Labs: 11/28/16 06:15 11/28/16 06:15 PT 12.7 Seconds (9.9-11.8) H 11/26/16 17:10 INR 1.18 (0.93-1.08) H 11/26/16 17:10 APTT 28.0 Seconds (23.7-30.8) 11/26/16 23:59 - Constitutional Appears: Well, Non-toxic, No Acute Distress - Extremities Exam Additional comments: Left lower extremity focused examination: Vasc: DP/PT pulses non-palpable, +2 non-pitting edema noted from mid calf extending distally to digits, CFT delayed to all digits. Absence of pedal hair growth is noted Neuro: Protective sensation grossly diminished Derm: surgical incision site well coapted, sutures intact, mild active bleeding noted, no purulence, no malodor, no edema, no erythema, no ascending cellulitis , no fluctuance, no acute clinical signs of infection ortho: no pain on palpation of surgical site - Neurological Exam Neurological Exam: Alert, Awake, Oriented x3 - Psychiatric Exam Psychiatric exam: Normal Affect, Normal Mood Assessment and Plan - Assessment and Plan (Free Text) Assessment: 71 y/o female seen at bedside 1 day s.p left hallux amputation Plan: Pt seen and evaluated at bedside with Dr. Henriquez Chart, labs and vitals reviewed- afebrile, WBC WNL 8.5 Wound culture shows growth of Citrobacter and Pseudomonas, awaiting intra-op cultures Pt to continue on IV abx as per ID - Vancomycin & Zosyn Dressing change to L foot with Betadine, adaptic and DSD, BONI patient to ambulate with forefoot offloading shoe and work with PT Podiatry will continue to follow while in house <Deric Henriquez - Last Filed: 11/28/16 15:52> Objective - Vital Signs/Intake and Output Vital Signs (last 24 hours): Temp Pulse Resp BP Pulse Ox 98.4 F 79 20 150/61 97 11/28/16 07:30 11/28/16 12:00 11/28/16 07:30 11/28/16 12:00 11/28/16 07:30 Intake and Output: 11/28/16 11/28/16 06:59 18:59 Intake Total 660 600 Output Total 2500 600 Balance -1840 0 - Medications Medications: Current Medications Acetaminophen (Tylenol 325mg Tab) 650 mg PO Q4H PRN PRN Reason: Fever >100.5 F Albuterol/Ipratropium (Duoneb 3 Mg/0.5 Mg (3 Ml) Ud) 3 ml IH Q3H PRN PRN Reason: Shortness of Breath Enoxaparin Sodium (Lovenox) 100 mg SC Q12H [facility] PRN Reason: Protocol Last Admin: 11/24/16 23:14 Dose: 100 mg Enoxaparin Sodium (Lovenox) 40 mg SC DAILY [facility] PRN Reason: Protocol Last Admin: 11/28/16 13:25 Dose: 40 mg Furosemide (Lasix) 40 mg PO BID [facility] Last Admin: 11/28/16 09:03 Dose: 40 mg Hydralazine HCl (Apresoline) 50 mg PO BID [facility] Last Admin: 11/28/16 09:04 Dose: 50 mg Piperacillin Sod/Tazobactam Sod (Zosyn 4.5 Gm In Ns 100ml) 4.5 gm in 100 mls @ 200 mls/hr IVPB Q6 [facility] PRN Reason: Protocol Stop: 11/28/16 18:29 Last Admin: 11/28/16 13:24 Dose: 200 mls/hr Insulin Human Lispro (Humalog Med) 0 units SC ACHS [facility] PRN Reason: Protocol Last Admin: 11/28/16 12:30 Dose: 3 units Isosorbide Mononitrate (Imdur) 60 mg PO DAILY [facility] Last Admin: 11/28/16 09:04 Dose: 60 mg Metoprolol Tartrate (Lopressor) 25 mg PO BID [facility] Last Admin: 11/28/16 09:04 Dose: 25 mg Nicotine (Nicoderm Cq) 1 patch TD DAILY [facility] Last Admin: 11/28/16 09:06 Dose: 1 patch Ondansetron HCl (Zofran Inj) 4 mg IVP Q4H PRN PRN Reason: Nausea/Vomiting Oxycodone/Acetaminophen (Percocet 5/325 Mg Tab) 1 tab PO Q4H PRN PRN Reason: Pain, moderate (4-7) Stop: 11/30/16 10:03 Last Admin: 11/28/16 09:49 Dose: 1 tab Oxycodone/Acetaminophen (Percocet 5/325 Mg Tab) 2 tab PO Q4H PRN PRN Reason: Pain, severe (8-10) Stop: 11/30/16 10:03 Last Admin: 11/27/16 22:38 Dose: 2 tab Pantoprazole Sodium (Protonix Inj) 40 mg IVP DAILY [facility] Last Admin: 11/28/16 09:50 Dose: 40 mg Spironolactone (Aldactone) 25 mg PO DAILY [facility] Last Admin: 11/28/16 09:04 Dose: 25 mg Valsartan (Diovan) 320 mg PO DAILY [facility] Last Admin: 11/28/16 09:04 Dose: 320 mg - Labs Labs: 11/28/16 06:15 11/28/16 06:15 PT 12.7 Seconds (9.9-11.8) H 11/26/16 17:10 INR 1.18 (0.93-1.08) H 11/26/16 17:10 APTT 28.0 Seconds (23.7-30.8) 11/26/16 23:59 Attending/Attestation - Attestation I have personally seen and examined this patient.: Yes I have fully participated in the care of the patient.: Yes I have reviewed all pertinent clinical information, including history, physical exam and plan: Yes
[2016-11-28] MEDS: Piperacill/Tazo 4.5gm in NS 4.5 GM/100 ML BAG IVPB SCH ×2 (13:24→17:15)
[2016-11-28] MEDS: Enoxaparin 40 mg Syringe SC SCH (13:25)
--- NOTE | 2016-11-28 17:44 | PN ---
DATE: 11/28/2016 REASON FOR CONSULTATION AND FOLLOWUP: Preop evaluation with postop followup, history of CAD, history of aortic stenosis, moderate aortic valve area of 1 centimeter square. SUBJECTIVE: Denies any chest pain, shortness of breath, any palpitation, status post OR. PHYSICAL EXAMINATION: GENERAL: Lying on the bed, not in apparent distress. VITAL SIGNS: Temperature afebrile, heart rate 79, blood pressure 128/69. HEENT: PERRLA intact. NECK: Supple. No carotid bruit. No thyromegaly. CHEST: Clear to auscultation. HEART: S1 and S2 regular. ABDOMEN: Soft. EXTREMITIES: Clubbing and cyanosis negative. LABORATORY DATA: WBC 8.5, hemoglobin 8.7, hematocrit 28.4, platelet count 239. Chemistry shows sodium 142, potassium 3.2, chloride 99, carbon dioxide 35, anion gap of 11, BUN 10, creatinine 0.8, total protein 6, albumin 3.4. IMPRESSION: Hypokalemia, anemia, history of chronic atrial fibrillation, one-vessel coronary artery disease, morbid obesity, peripheral arterial disease, status post left toe amputation. RECOMMENDATION: Continue spironolactone, continue isosorbide nitrate, supplement potassium, continue metoprolol, continue Lovenox. Once the intervention for PAD is completed, we will restart back on Coumadin. Thank you for taking care of the patient. Brianna Sandra MD cc:
--- NOTE | 2016-11-28 19:57 | CP.PCM.PN ---
Subjective - Date & Time of Evaluation Date of Evaluation: 11/28/16 Time of Evaluation: 11:55 - Subjective Subjective: Comfortable in bed, not in distress, afebrile, left foot still a little sore. Objective - Vital Signs/Intake and Output Vital Signs (last 24 hours): Temp Pulse Resp BP Pulse Ox 98.4 F 79 20 177/86 H 97 11/28/16 07:30 11/28/16 07:30 11/28/16 07:30 11/28/16 09:03 11/28/16 07:30 Intake and Output: 11/28/16 11/28/16 06:59 18:59 Intake Total 660 Output Total 2500 Balance -1840 - Medications Medications: Current Medications Acetaminophen (Tylenol 325mg Tab) 650 mg PO Q4H PRN PRN Reason: Fever >100.5 F Albuterol/Ipratropium (Duoneb 3 Mg/0.5 Mg (3 Ml) Ud) 3 ml IH Q3H PRN PRN Reason: Shortness of Breath Enoxaparin Sodium (Lovenox) 100 mg SC Q12H [facility] PRN Reason: Protocol Last Admin: 11/24/16 23:14 Dose: 100 mg Furosemide (Lasix) 40 mg PO BID [facility] Last Admin: 11/28/16 09:03 Dose: 40 mg Hydralazine HCl (Apresoline) 50 mg PO BID [facility] Last Admin: 11/28/16 09:04 Dose: 50 mg Piperacillin Sod/Tazobactam Sod (Zosyn 4.5 Gm In Ns 100ml) 4.5 gm in 100 mls @ 200 mls/hr IVPB Q6 [facility] PRN Reason: Protocol Stop: 11/28/16 18:29 Insulin Human Lispro (Humalog Med) 0 units SC ACHS [facility] PRN Reason: Protocol Last Admin: 11/28/16 09:03 Dose: 3 units Isosorbide Mononitrate (Imdur) 60 mg PO DAILY [facility] Last Admin: 11/28/16 09:04 Dose: 60 mg Metoprolol Tartrate (Lopressor) 25 mg PO BID [facility] Last Admin: 11/28/16 09:04 Dose: 25 mg Nicotine (Nicoderm Cq) 1 patch TD DAILY [facility] Last Admin: 11/28/16 09:06 Dose: 1 patch Ondansetron HCl (Zofran Inj) 4 mg IVP Q4H PRN PRN Reason: Nausea/Vomiting Oxycodone/Acetaminophen (Percocet 5/325 Mg Tab) 1 tab PO Q4H PRN PRN Reason: Pain, moderate (4-7) Stop: 11/30/16 10:03 Last Admin: 11/28/16 09:49 Dose: 1 tab Oxycodone/Acetaminophen (Percocet 5/325 Mg Tab) 2 tab PO Q4H PRN PRN Reason: Pain, severe (8-10) Stop: 11/30/16 10:03 Last Admin: 11/27/16 22:38 Dose: 2 tab Pantoprazole Sodium (Protonix Inj) 40 mg IVP DAILY [facility] Last Admin: 11/28/16 09:50 Dose: 40 mg Spironolactone (Aldactone) 25 mg PO DAILY [facility] Last Admin: 11/28/16 09:04 Dose: 25 mg Valsartan (Diovan) 320 mg PO DAILY [facility] Last Admin: 11/28/16 09:04 Dose: 320 mg - Labs Labs: 11/28/16 06:15 11/28/16 06:15 PT 12.7 Seconds (9.9-11.8) H 11/26/16 17:10 INR 1.18 (0.93-1.08) H 11/26/16 17:10 APTT 28.0 Seconds (23.7-30.8) 11/26/16 23:59 - Constitutional Appears: Non-toxic, No Acute Distress - Head Exam Head Exam: NORMAL INSPECTION - ENT Exam ENT Exam: Mucous Membranes Moist - Neck Exam Neck Exam: absent: Lymphadenopathy, Meningismus - Respiratory Exam Respiratory Exam: Decreased Breath Sounds - Cardiovascular Exam Cardiovascular Exam: +S1, +S2 - GI/Abdominal Exam GI & Abdominal Exam: Soft. absent: Tenderness - Extremities Exam Additional comments: left foot with dressings in place Assessment and Plan - Assessment and Plan (Free Text) Plan: Assessment left hallux gangrene and foot gangrene, growing Pseudomonas and Citrobacter S/P amputation POD #1 history of sepsis from UTI, and cellulitis of the left foot history of Ventilator-dependent respiratory failure probably from pulmonary edema and aspiration pneumonia, healthcare-associated history of infected diabetic ulceration of the left hallux associated with trauma with probable peripheral vascular disease, growing MRSA with no evidence of osteomyelitis on MRI S/P arthrectomy and angioplasty of left sided lower extremity vasculature S/P Sepsis with acute hypoxic respiratory failure secondary to left-sided healthcare-associated pneumonia with possible gram positive cocci and/or gram negative bacilli history of sepsis from persistent methicillin-resistant coagulase negative staph bacteremia, probably port infection S/P removal of the port history of Group G Strep bacteremia history of E. coli UTI history of healthcare-associated pneumonia acute renal failure obesity with BMI 38 CAD GERD arthritis history of bilateral knee replacements chronic CHF COPD DM history of breast CA History of Strep bovis bacteremia (2012) S/P Port-a-cath placement Plan will continue Zosyn pending OR cx and pathology will continue to monitor clinically
[2016-11-29] MEDS: Piperacill/Tazo 4.5gm in NS 4.5 GM/100 ML BAG IVPB SCH ×4 (00:02→17:03)
[2016-11-29] MEDS: Oxycodone/Acetaminophen 5/325 mg Tab PO PRN ×2 (00:07→20:17)
[2016-11-29 06:58] LABS: HEMATOCRIT 29.5 % (36.0-48.0); MEAN CELL VOLUME 92.2 fl (80.0-105.0); MEAN CORPUSCULAR HEMOGLOBIN 27.8 pg (25.0-35.0); MEAN CORPUSCULAR HGB CONC 30.2 g/dl (31.0-37.0); MEAN PLATELET VOLUME 9.2 fl (7.0-11.0); RED CELL DISTRIBUTION WIDTH 17.2 % (11.5-14.5); WHITE BLOOD COUNT 6.5 10^3/ul (4.5-11.0)
[2016-11-29 07:22] LABS: ALB/GLOB RATIO 1.3 (1.1-1.8); ALKALINE PHOSPHATASE 112 U/L (38-126); ALT/SGPT 24 U/L (7-56); AST/SGOT 20 U/L (14-36); BILIRUBIN,TOTAL 0.5 mg/dL (0.2-1.3); BLOOD UREA NITROGEN 13 mg/dL (7-21); CALCIUM 9.3 mg/dL (8.4-10.5); CARBON DIOXIDE 38 mmol/L (21-33); CHLORIDE 97 mmol/L (98-107); GFR AFRICAN-AMERICAN > 60; GLUCOSE,RANDOM 135 mg/dL (70-110); MAGNESIUM 1.6 mg/dL (1.7-2.2); POTASSIUM 3.4 mmol/L (3.6-5.0); SODIUM 143 mmol/L (132-148); TOTAL PROTEIN 6.2 g/dL (5.8-8.3)
[2016-11-29] MEDS: Insulin Lispro (humaLOG) MEDIUM Coverage SC SCH ×3 (08:30→17:03)
[2016-11-29] MEDS: Enoxaparin 40 mg Syringe SC SCH (10:49)
--- NOTE | 2016-11-29 13:31 | CP.PCM.PN ---
Subjective - Date & Time of Evaluation Date of Evaluation: 11/29/16 Time of Evaluation: 12:35 - Subjective Subjective: Comfortable, afebrile, not in distress. Objective - Vital Signs/Intake and Output Vital Signs (last 24 hours): Temp Pulse Resp BP Pulse Ox 98.4 F 79 20 146/81 97 11/28/16 07:30 11/28/16 12:00 11/28/16 07:30 11/28/16 17:18 11/28/16 07:30 Intake and Output: 11/28/16 11/29/16 18:59 06:59 Intake Total 600 Output Total 600 Balance 0 - Medications Medications: Current Medications Acetaminophen (Tylenol 325mg Tab) 650 mg PO Q4H PRN PRN Reason: Fever >100.5 F Albuterol/Ipratropium (Duoneb 3 Mg/0.5 Mg (3 Ml) Ud) 3 ml IH Q3H PRN PRN Reason: Shortness of Breath Enoxaparin Sodium (Lovenox) 100 mg SC Q12H [facility] PRN Reason: Protocol Last Admin: 11/24/16 23:14 Dose: 100 mg Enoxaparin Sodium (Lovenox) 40 mg SC DAILY [facility] PRN Reason: Protocol Last Admin: 11/28/16 13:25 Dose: 40 mg Furosemide (Lasix) 40 mg PO BID [facility] Last Admin: 11/28/16 17:18 Dose: 40 mg Hydralazine HCl (Apresoline) 50 mg PO BID [facility] Last Admin: 11/28/16 17:20 Dose: 50 mg Insulin Human Lispro (Humalog Med) 0 units SC ACHS [facility] PRN Reason: Protocol Last Admin: 11/28/16 17:16 Dose: 5 units Isosorbide Mononitrate (Imdur) 60 mg PO DAILY [facility] Last Admin: 11/28/16 09:04 Dose: 60 mg Metoprolol Tartrate (Lopressor) 25 mg PO BID [facility] Last Admin: 11/28/16 17:17 Dose: 25 mg Nicotine (Nicoderm Cq) 1 patch TD DAILY [facility] Last Admin: 11/28/16 09:06 Dose: 1 patch Ondansetron HCl (Zofran Inj) 4 mg IVP Q4H PRN PRN Reason: Nausea/Vomiting Oxycodone/Acetaminophen (Percocet 5/325 Mg Tab) 1 tab PO Q4H PRN PRN Reason: Pain, moderate (4-7) Stop: 11/30/16 10:03 Last Admin: 11/28/16 17:17 Dose: 1 tab Oxycodone/Acetaminophen (Percocet 5/325 Mg Tab) 2 tab PO Q4H PRN PRN Reason: Pain, severe (8-10) Stop: 11/30/16 10:03 Last Admin: 11/27/16 22:38 Dose: 2 tab Pantoprazole Sodium (Protonix Inj) 40 mg IVP DAILY [facility] Last Admin: 11/28/16 09:50 Dose: 40 mg Spironolactone (Aldactone) 25 mg PO DAILY [facility] Last Admin: 11/28/16 09:04 Dose: 25 mg Valsartan (Diovan) 320 mg PO DAILY [facility] Last Admin: 11/28/16 09:04 Dose: 320 mg - Labs Labs: 11/28/16 06:15 11/28/16 06:15 PT 12.7 Seconds (9.9-11.8) H 11/26/16 17:10 INR 1.18 (0.93-1.08) H 11/26/16 17:10 APTT 28.0 Seconds (23.7-30.8) 11/26/16 23:59 - Constitutional Appears: Non-toxic, No Acute Distress - Head Exam Head Exam: NORMAL INSPECTION - ENT Exam ENT Exam: Mucous Membranes Moist - Neck Exam Neck Exam: absent: Lymphadenopathy, Meningismus - Respiratory Exam Respiratory Exam: Decreased Breath Sounds - Cardiovascular Exam Cardiovascular Exam: +S1, +S2 - GI/Abdominal Exam GI & Abdominal Exam: Soft. absent: Tenderness - Extremities Exam Additional comments: left foot with dressings in place Assessment and Plan - Assessment and Plan (Free Text) Plan: Assessment left hallux gangrene and foot gangrene, growing Pseudomonas and Citrobacter S/P amputation POD #2 history of sepsis from UTI, and cellulitis of the left foot history of Ventilator-dependent respiratory failure probably from pulmonary edema and aspiration pneumonia, healthcare-associated history of infected diabetic ulceration of the left hallux associated with trauma with probable peripheral vascular disease, growing MRSA with no evidence of osteomyelitis on MRI S/P arthrectomy and angioplasty of left sided lower extremity vasculature S/P Sepsis with acute hypoxic respiratory failure secondary to left-sided healthcare-associated pneumonia with possible gram positive cocci and/or gram negative bacilli history of sepsis from persistent methicillin-resistant coagulase negative staph bacteremia, probably port infection S/P removal of the port history of Group G Strep bacteremia history of E. coli UTI history of healthcare-associated pneumonia acute renal failure obesity with BMI 38 CAD GERD arthritis history of bilateral knee replacements chronic CHF COPD DM history of breast CA History of Strep bovis bacteremia (2012) S/P Port-a-cath placement Plan will continue Zosyn pending OR cx and pathology will continue to follow clinically
--- NOTE | 2016-11-29 15:07 | PN ---
DATE: 11/28/2016 SUBJECTIVE: She is comfortable in bed, in no acute distress. Not able to ambulate. She underwent left toe amputation in the OR. Swelling of the feet bilateral stable. Pain controlled with current medications. Hemoglobin and hematocrit stable. Denies any chest pain. No shortness of breath. REVIEW OF SYSTEMS: As per HPI. Rest of 12-point review of systems reviewed and negative. PHYSICAL EXAMINATION: GENERAL: Comfortable in bed, in no acute distress. VITAL SIGNS: Temperature 98.7, heart rate 80 per minute, blood pressure is 137/88, respirator rate is 18 per minute, and pulse ox is 98% on room air. HEENT: Pallor positive. NECK: No lymphadenopathy. CHEST: Air entry present and equal bilaterally. No added sounds. CARDIOVASCULAR: S1 and S2 normal. No murmur. No gallop. ABDOMEN: Soft, nontender, and obese. EXTREMITIES: Bilateral edema present. Left foot in dressing. LABORATORY DATA: White count 6.5, hemoglobin 8.9, hematocrit 29.5, and platelet count 223. Sodium 143, potassium 3.4, creatinine 0.8, and magnesium 1.6. MEDICATIONS: Tylenol 650 mg q.4 hour p.r.n., DuoNeb p.r.n., Lovenox 40 mg subQ daily, Lasix 40 mg p.o. b.i.d., hydralazine 50 mg p.o. b.i.d., insulin sliding scale and Imdur 60 mg daily, Lopressor 25 mg p.o. b.i.d., nicotine patch, Zofran 4 mg IV q.6 hour p.r.n., Percocet p.r.n., Aldactone 25 mg daily, and Diovan 320 mg p.o. daily. ASSESSMENT: Left toe gangrene, status post amputation; congestive cardiac failure; history of gastrointestinal bleed, severe anemia; history of breast cancer, left-sided, in remission; chronic obstructive pulmonary disease, and atrial fibrillation. PLAN: Pain control with current medications will continue same. Continue Zosyn as per ID. Continue Aldactone 25 mg daily and Diovan 320 mg daily. She is on prophylactic doses of Lovenox 30 mg subQ daily. We will start full dose Lovenox from tomorrow and Imdur 60 mg daily, hydralazine 50 mg p.o. b.i.d., and Lasix 40 mg IV b.i.d. Suellen Oneill MD [facility]
[2016-11-29 16:16] VITALS: PULSE 86; TEMP 98; O2SAT 95
[2016-11-29 17:04] VITALS: BP 138/82
[2016-11-29] MEDS ORDERED: Nystatin 100,000 Units/gm Topical Pow(15 gm) TOP SCH (18:00)
--- NOTE | 2016-11-30 00:12 | DS ---
DISCHARGE DIAGNOSES: 1. Left toe gangrene. 2. Congestive cardiac failure. 3. History of gastrointestinal bleed. 4. Severe anemia. 5. History of breast cancer left sided. 6. Chronic obstructive pulmonary disease. 7. Congestive heart failure. 8. Atrial fibrillation. HOSPITAL COURSE: She was admitted with pain in the left foot and severe gangrene of the left toe. She underwent amputation of the left toe. She received IV antibiotics. Zosyn as per ID recommendation. Consultations during hospitalization, infectious disease, and podiatry. She was on anticoagulation with Lovenox full doses 100 mg q.12 hours, which was held for surgery. Lovenox to be started at prophylactic doses. She was not able to ambulate, status post surgery. She is being transferred to transitional care unit for deconditioning and strengthening of the gait. PHYSICAL EXAMINATION: GENERAL: Comfortable in bed, in no acute distress. VITAL SIGNS: Temperature 98.8, heart rate 75 per minute, blood pressure 130/60, respiratory rate 20 per minute, and pulse oximetry is 98% on room air. HEENT: Pallor positive. NECK: No lymphadenopathy. CHEST: Air entry present and equal bilaterally. No added sounds. CARDIOVASCULAR: S1 and S2 normal. No murmur. No gallop. ABDOMEN: Soft and nontender. No hepatosplenomegaly. EXTREMITIES: Bilateral edema. Left toe is dressing. LABORATORY DATA: White count is 6.5, hemoglobin is 8.9, hematocrit is 29.5, and platelet count is 223. Sodium is 143, potassium is 3.4, creatinine is 0.8, and magnesium is 1.6. CONDITION ON DISCHARGE: Stable. DISPOSITION: Discharged to transitional care unit. MEDICATIONS: Continue all the medications. Tylenol 650 q.4 hours p.r.n., DuoNeb p.r.n., Lasix 100 mg subcutaneously b.i.d. from tomorrow, Lasix 40 mg p.o. b.i.d., hydralazine 50 mg p.o. b.i.d., insulin sliding scale, Imdur 60 mg daily, Lopressor 25 mg p.o. b.i.d., nicotine patch, Zofran 4 mg IV q.4 hours p.r.n., Percocet p.r.n., Aldactone 25 mg daily, and Diovan 320 mg daily. DIET: Regular diet. Discussed with the staff nurse. Time spent in preparing discharge and coordinating care 60 minutes. Suellen Oneill MD [facility]
[2016-11-30] MEDS ORDERED: Potassium Chloride 20 mEq ER Tab PO SCH (10:00)
== END 2016-11-29 21:21 | DRG 271 ==
LOC: ED 18:19 → ERH 20:19 → 5RNO 22:34 → 2RSO 11-26 18:52 → 5RNO 11-27 01:58
PROVIDERS: ADMIT Internal Medicine Nephrology; ATTEND Internal Medicine
PROC: 30233N1 Transfusion of Nonautologous Red Blood Cells into Peripheral Vein, Percutaneous Approach (ICD-10-PCS; 2016-11-25)
PROC: 04CQ3ZZ Extirpation of Matter from Left Anterior Tibial Artery, Percutaneous Approach (ICD-10-PCS; 2016-11-26)
PROC: 047S3ZZ Dilation of Left Posterior Tibial Artery, Percutaneous Approach (ICD-10-PCS; 2016-11-26)
PROC: B41D1ZZ Fluoroscopy of Aorta and Bilateral Lower Extremity Arteries using Low Osmolar Contrast (ICD-10-PCS; 2016-11-26)
PROC: 3E05317 Introduction of Other Thrombolytic into Peripheral Artery, Percutaneous Approach (ICD-10-PCS; 2016-11-26)
PROC: 02HV33Z Insertion of Infusion Device into Superior Vena Cava, Percutaneous Approach (ICD-10-PCS; 2016-11-26)
PROC: B548ZZA Ultrasonography of Superior Vena Cava, Guidance (ICD-10-PCS; 2016-11-26)
PROC: 0Y6Q0Z0 Detachment at Left 1st Toe, Complete, Open Approach (ICD-10-PCS; principal; 2016-11-27 07:45)
DX: E11.52 Type 2 diabetes mellitus with diabetic peripheral angiopathy with gangrene (principal); I13.0 Hypertensive heart and chronic kidney disease with heart failure and stage 1 through stage 4 chronic kidney disease, or unspecified chronic kidney disease; N17.9 Acute kidney failure, unspecified; K76.6 Portal hypertension; E11.22 Type 2 diabetes mellitus with diabetic chronic kidney disease; I27.2 Other secondary pulmonary hypertension; I50.30 Unspecified diastolic (congestive) heart failure; K92.2 Gastrointestinal hemorrhage, unspecified; Z68.41 Body mass index [BMI] 40.0-44.9, adult; E66.01 Morbid (severe) obesity due to excess calories; N18.9 Chronic kidney disease, unspecified; I25.10 Atherosclerotic heart disease of native coronary artery without angina pectoris; I35.0 Nonrheumatic aortic (valve) stenosis; I48.2 Chronic atrial fibrillation; Z85.3 Personal history of malignant neoplasm of breast; D50.9 Iron deficiency anemia, unspecified; E03.9 Hypothyroidism, unspecified; E78.00 Pure hypercholesterolemia, unspecified; E78.5 Hyperlipidemia, unspecified; E87.6 Hypokalemia; F17.210 Nicotine dependence, cigarettes, uncomplicated; Z86.19 Personal history of other infectious and parasitic diseases; Z87.01 Personal history of pneumonia (recurrent); Z87.440 Personal history of urinary (tract) infections; Z89.422 Acquired absence of other left toe(s); Z96.653 Presence of artificial knee joint, bilateral; Z87.09 Personal history of other diseases of the respiratory system; Z86.010 Personal history of colon polyps; Z79.899 Other long term (current) drug therapy; Z79.01 Long term (current) use of anticoagulants; J44.9 Chronic obstructive pulmonary disease, unspecified; K21.9 Gastro-esophageal reflux disease without esophagitis; L97.529 Non-pressure chronic ulcer of other part of left foot with unspecified severity; M19.90 Unspecified osteoarthritis, unspecified site; M20.10 Hallux valgus (acquired), unspecified foot; M21.00 Valgus deformity, not elsewhere classified, unspecified site; M72.2 Plantar fascial fibromatosis; M77.30 Calcaneal spur, unspecified foot; R04.0 Epistaxis; E11.621 Type 2 diabetes mellitus with foot ulcer; E11.622 Type 2 diabetes mellitus with other skin ulcer; E11.65 Type 2 diabetes mellitus with hyperglycemia; L03.032 Cellulitis of left toe

== ENCOUNTER 2016-11-29 21:24 | Inpatient (IN) | payer MEDICARE, OTHER ==
[2016-11-29] MEDS ORDERED: Albuterol-Ipratrop 3 mg / 0.5 (3 ml) UD IH PRN (22:21)
[2016-11-29] MEDS ORDERED: Oxycodone/Acetaminophen 5/325 mg Tab PO PRN (22:29)
[2016-11-29] MEDS ORDERED: Pneumococcal 23-Valent Vaccine IM ONE (22:57)
[2016-11-29] MEDS: Oxycodone/Acetaminophen 5/325 mg Tab PO PRN (22:58)
[2016-11-29] MEDS: Insulin Lispro (humaLOG) MEDIUM Coverage SC SCH (23:11)
[2016-11-30] MEDS: Piperacill/Tazo 4.5gm in NS 4.5 GM/100 ML BAG IVPB SCH ×4 (00:11→17:14)
[2016-11-30] MEDS: Oxycodone/Acetaminophen 5/325 mg Tab PO PRN ×2 (02:30→21:48)
[2016-11-30] MEDS ORDERED: Enoxaparin 40 mg Syringe SC SCH (06:00)
[2016-11-30] MEDS: Pantoprazole 40 mg EC Tab PO SCH (06:06)
[2016-11-30] MEDS: Insulin Lispro (humaLOG) MEDIUM Coverage SC SCH ×4 (06:52→21:49)
[2016-11-30] MEDS: Potassium Chloride 20 mEq ER Tab PO SCH (08:17)
[2016-11-30] MEDS: Nystatin 100,000 Units/gm Topical Pow(15 gm) TOP SCH ×2 (11:21→17:13)
--- NOTE | 2016-11-30 13:50 | CP.PCM.CON ---
History of Present Illness - History of Present Illness History of Present Illness: 71 year old female with PMH of obesity with BMI 39, CAD, GERD, arthritis, history of bilateral knee replacements, chronic CHF, COPD, DM, history of breast CA, History of Strep bovis bacteremia (2012), S/P Port-a-cath placement, history of Group G Strep bacteremia, history of E. coli UTI, history of left sided HCAP, S/P methicillin-resistant coagulase negative staph bacteremia, probably port infection S/P removal of the port came initally becasue of left hallux worsening gangrene and ulceration. She had an amputation done of the left hallux and partially of the 1st metatarsal and she is now transferrred to [facility] for continued medical therapy and physical rehabilitation. Infectious Diseases consult is requested to continue her antibiotic therapy. She is currently afebrile, denies headache or dizziness, no chest pain , no SOB, no abdominal pain, no diarrhea, no dysuria, has less foot pain. Review of Systems - Review of Systems All systems: reviewed and no additional remarkable complaints except (as per HPI ) Past Patient History - Infectious Disease Hx of Infectious Diseases: None - Tetanus Immunizations Tetanus Immunization: Unknown - Past Medical History & Family History Past Medical History?: Yes - Past Social History Smoking Status: Former Smoker - CARDIAC Hx Cardiac Disorders: (cad) - PULMONARY Hx Chronic Obstructive Pulmonary Disease (COPD): Yes - HEENT Hx HEENT Problems: No - RENAL Hx Renal Failure: Yes - ENDOCRINE/METABOLIC Hx Diabetes Mellitus Type 1: Yes Hx Diabetes Mellitus Type 2: Yes - HEMATOLOGICAL/ONCOLOGICAL Hx Blood Transfusions: No - INTEGUMENTARY Other/Comment: ble +3 pitting edema dng to lle mult small scabs rle, left great toe necrotic/gangrene, bruise left lower abd, small mass left head no pain - MUSCULOSKELETAL/RHEUMATOLOGICAL Hx Falls: Yes (past) - GASTROINTESTINAL Hx Gastrointestinal Disorders: (3 loose stools today) - GENITOURINARY/GYNECOLOGICAL Hx Reproductive Disorders: Yes (hx breast ca/left lumpectomy/hyst) - PSYCHIATRIC Hx Psychophysiologic Disorder: Yes Hx Anxiety: Yes Hx Substance Use: No - SURGICAL HISTORY Hx Surgeries: Yes - ANESTHESIA Hx Anesthesia Reactions: No Hx Malignant Hyperthermia: No Meds Allergies/Adverse Reactions: Allergies Allergy/AdvReac Type Severity Reaction Status Date / Time No Known Allergies Allergy Verified 09/09/17 22:09 - Medications Medications: Current Medications Acetaminophen (Tylenol 325mg Tab) 650 mg PO Q4H PRN; Protocol PRN Reason: fever >100.5 Albuterol/Ipratropium (Duoneb 3 Mg/0.5 Mg (3 Ml) Ud) 3 ml IH Q3H PRN; Protocol PRN Reason: Shortness of Breath Enoxaparin Sodium (Lovenox) 40 mg SC 0600 [facility] PRN Reason: Protocol Furosemide (Lasix) 40 mg PO BID [facility] PRN Reason: Protocol Hydralazine HCl (Apresoline) 50 mg PO BID [facility] PRN Reason: Protocol Piperacillin Sod/Tazobactam Sod (Zosyn 4.5 Gm In Ns 100ml) 4.5 gm in 100 mls @ 200 mls/hr IVPB Q6 [facility] PRN Reason: Protocol Stop: 12/07/16 00:01 Insulin Human Lispro (Humalog Med) 0 units SC ACHS [facility] PRN Reason: Protocol Isosorbide Mononitrate (Imdur) 60 mg PO 0600 [facility] PRN Reason: Protocol Metoprolol Tartrate (Lopressor) 25 mg PO 0800,1700 [facility] PRN Reason: Protocol Nicotine (Nicoderm Cq) 1 patch TD DAILY [facility] PRN Reason: Protocol Nystatin (Nystop Topical Powder) 0 gm TOP BID [facility] PRN Reason: Protocol Ondansetron HCl (Zofran Inj) 4 mg IVP Q4H PRN; Protocol PRN Reason: Nausea/Vomiting Oxycodone/Acetaminophen (Percocet 5/325 Mg Tab) 1 tab PO Q4H PRN; Protocol PRN Reason: moderate pain Stop: 12/02/16 22:22 Last Admin: 11/29/16 22:58 Dose: 1 tab Oxycodone/Acetaminophen (Percocet 5/325 Mg Tab) 2 tab PO Q4H PRN; Protocol PRN Reason: severe pain Stop: 12/02/16 22:30 Pantoprazole Sodium (Protonix Ec Tab) 40 mg PO 0600 [facility] PRN Reason: Protocol Potassium Chloride (K-Dur 20 Meq Er Tab) 20 meq PO 0800 [facility] PRN Reason: Protocol Spironolactone (Aldactone) 25 mg PO DAILY [facility] PRN Reason: Protocol Valsartan (Diovan) 320 mg PO DAILY [facility] PRN Reason: Protocol Physical Exam - Constitutional Appears: Non-toxic, No Acute Distress - Head Exam Head Exam: NORMAL INSPECTION - ENT Exam ENT Exam: Mucous Membranes Moist - Neck Exam Neck exam: Negative for: Meningismus - Respiratory Exam Respiratory Exam: Decreased Breath Sounds - Cardiovascular Exam Cardiovascular Exam: +S1, +S2 - GI/Abdominal Exam GI & Abdominal Exam: Soft. absent: Tenderness - Extremities Exam Additional comments: left foot with dressings in place Results - Vital Signs Recent Vital Signs: Last Vital Signs Temp 98.7 F 11/29/16 22:42 Pulse 83 11/29/16 22:42 Resp 20 11/29/16 22:42 BP 130/66 11/29/16 22:42 Pulse Ox Assessment & Plan - Assessment and Plan (Free Text) Plan: Assessment left hallux gangrene and foot gangrene, growing Pseudomonas and Citrobacter S/P amputation POD #3 history of sepsis from UTI, and cellulitis of the left foot history of Ventilator-dependent respiratory failure probably from pulmonary edema and aspiration pneumonia, healthcare-associated history of infected diabetic ulceration of the left hallux associated with trauma with probable peripheral vascular disease, growing MRSA with no evidence of osteomyelitis on MRI S/P arthrectomy and angioplasty of left sided lower extremity vasculature S/P Sepsis with acute hypoxic respiratory failure secondary to left-sided healthcare-associated pneumonia with possible gram positive cocci and/or gram negative bacilli history of sepsis from persistent methicillin-resistant coagulase negative staph bacteremia, probably port infection S/P removal of the port history of Group G Strep bacteremia history of E. coli UTI history of healthcare-associated pneumonia acute renal failure obesity with BMI 38 CAD GERD arthritis history of bilateral knee replacements chronic CHF COPD DM history of breast CA History of Strep bovis bacteremia (2012) S/P Port-a-cath placement Plan will continue Zosyn pending OR cx and pathology will continue to follow clinically
--- NOTE | 2016-11-30 18:03 | CARD ---
APPROVED REPORT EKG Measurement Heart [id number] <Conclusion> Atrial fibrillation Nonspecific intraventricular block Cannot rule out Septal infarct, age undetermined Possible Lateral infarct, age undetermined Abnormal ECG
--- NOTE | 2016-12-01 00:20 | CP.PCM.HP ---
History of Present Illness - History of Present Illness History of Present Illness: 11/30/2016 History of present illness: : She was admitted with pain in the left foot and severe gangrene of the left toe. She underwent amputation of the left toe. She received IV antibiotics. Zosyn as per ID recommendation. Consultations during hospitalization, infectious disease, and podiatry. She was on anticoagulation with Lovenox full doses 100 mg q.12 hours, which was held for surgery. Lovenox to be started at prophylactic doses. She was not able to ambulate, status post surgery. She is admitted to transitional care unit for deconditioning and strengthening of the gait. PHYSICAL EXAMINATION: GENERAL: Comfortable in bed, in no acute distress. VITAL SIGNS: reviewed. HEENT: Pallor positive. NECK: No lymphadenopathy. CHEST: Air entry present and equal bilaterally. No added sounds. CARDIOVASCULAR: S1 and S2 normal. No murmur. No gallop. ABDOMEN: Soft and nontender. No hepatosplenomegaly. EXTREMITIES: Bilateral edema. Left toe is dressing. LABORATORY DATA: White count is 6.5, hemoglobin is 8.9, hematocrit is 29.5, and platelet count is 223. Sodium is 143, potassium is 3.4, creatinine is 0.8, and magnesium is 1.6. MEDICATIONS: Continue all the medications. Tylenol 650 q.4 hours p.r.n., DuoNeb p.r.n., Lasix 100 mg subcutaneously b.i.d. from tomorrow, Lasix 40 mg p.o. b.i.d., hydralazine 50 mg p.o. b.i.d., insulin sliding scale, Imdur 60 mg daily, Lopressor 25 mg p.o. b.i.d., nicotine patch, Zofran 4 mg IV q.4 hours p.r.n., Percocet p.r.n., Aldactone 25 mg daily, and Diovan 320 mg daily. 1. Left toe gangrene. 2. Congestive cardiac failure. 3. History of gastrointestinal bleed. 4. Severe anemia. 5. History of breast cancer left sided. 6. Chronic obstructive pulmonary disease. 7. Congestive heart failure. 8. Atrial fibrillation. Plan : continue current meds. limited ambulation. Pain controlled with current meds. anticoagulation lovenox full dose. Hb/Hct stable. Suellen Oneill MD Present on Admission - Present on Admission Any Indicators Present on Admission: No Past Patient History - Infectious Disease Hx of Infectious Diseases: None - Tetanus Immunizations Tetanus Immunization: Unknown - Past Medical History & Family History Past Medical History?: Yes - Past Social History Smoking Status: Former Smoker - CARDIAC Hx Cardiac Disorders: Yes Hx Congestive Heart Failure: Yes Hx Hypercholesterolemia: Yes - PULMONARY Hx Chronic Obstructive Pulmonary Disease (COPD): Yes - HEENT Hx HEENT Problems: No - RENAL Hx Renal Failure: Yes - ENDOCRINE/METABOLIC Hx Diabetes Mellitus Type 2: Yes - HEMATOLOGICAL/ONCOLOGICAL Hx Blood Transfusions: No - INTEGUMENTARY Other/Comment: ble +3 pitting edema dng to lle mult small scabs rle, left great toe necrotic/gangrene, bruise left lower abd, small mass left head no pain - MUSCULOSKELETAL/RHEUMATOLOGICAL Hx Falls: Yes (past) - GASTROINTESTINAL Hx Gastrointestinal Disorders: (3 loose stools today) - GENITOURINARY/GYNECOLOGICAL Hx Reproductive Disorders: Yes (hx breast ca/left lumpectomy/hyst) - PSYCHIATRIC Hx Psychophysiologic Disorder: Yes Hx Anxiety: Yes Hx Substance Use: No - SURGICAL HISTORY Hx Surgeries: Yes - ANESTHESIA Hx Anesthesia Reactions: No Hx Malignant Hyperthermia: No Meds Allergies/Adverse Reactions: Allergies Allergy/AdvReac Type Severity Reaction Status Date / Time No Known Allergies Allergy Verified 11/29/16 22:09 Results - Vital Signs Recent Vital Signs: Last Vital Signs Temp 97.8 F 11/30/16 10:00 Pulse 72 11/30/16 17:11 Resp 18 11/30/16 10:00 BP 139/80 11/30/16 17:13 Pulse Ox 98 11/30/16 10:00
[2016-12-01] MEDS: Piperacill/Tazo 4.5gm in NS 4.5 GM/100 ML BAG IVPB SCH ×4 (00:27→17:33)
[2016-12-01] MEDS ORDERED: Enoxaparin 100 mg Syringe SC SCH (00:30)
--- NOTE | 2016-12-01 01:05 | CON ---
CARDIOLOGY CONSULTATION HISTORY OF PRESENT ILLNESS: The patient is a 71-year-old female, who has a history of hypertension, diabetes mellitus, hyperlipidemia, chronic atrial fibrillation, single-vessel coronary artery disease, history of moderate aortic stenosis, was admitted late last month with right toe gangrene. The patient was evaluated by Dr. Sandra, who cleared the patient for surgery with continuation of preoperative beta-blockers. The patient underwent amputation of the left first toe on the of this month, and currently is transferred to TCU. The patient denies any chest pain or shortness of breath at this time. SOCIAL HISTORY: The patient is a smoker. MEDICATIONS: Aldactone 25 mg once a day, hydralazine 50 mg p.o. twice a day, Diovan 320 mg once a day, albuterol inhaler, Imdur 60 mg once a day, K-Dur 20 mEq once a day, Lasix 40 mg p.o. twice a day, Lopressor 25 mg twice a day, nicotine patch, Protonix 40 mg p.o. once a day, Zosyn 4.5 g intravenously q. 6 hours. REVIEW OF SYSTEMS: No nausea or vomiting. The patient denies any fever or chills at this time. PHYSICAL EXAMINATION: GENERAL: The patient is an elderly female, who does not appear to be in acute distress. VITAL SIGNS: Blood pressure 132/73, heart rate 77, temperature 97.8, respirations 18. HEENT: Pale conjunctivae. NECK: No JVD. CHEST: Diffuse bilateral rhonchi. HEART: S1 and S2 regular. EXTREMITIES: 1+ pitting edema. LABORATORY DATA: Hemoglobin and hematocrit 8.9 and 29.5, white count and platelet count are within normal limits. SMA-7; sodium 143, potassium 3.4, chloride 97, CO2 of 38, glucose 135, BUN 13, creatinine 0.8. Echocardiographic study performed in March of this year reveals normal ejection fraction, [id number] concentric LVH, moderate valvular aortic stenosis. EKG performed on 11/20, revealed atrial fibrillation with heart rate of 83, inferior infarct of undetermined age, anteroseptal infarct of undetermined age, lateral ischemic T wave changes. ASSESSMENT: 1. Status post left big toe amputation. 2. Chronic atrial fibrillation. 3. Status post amputation of the left big toe. 4. Hypertension. 5. Hypokalemia. 6. Moderate aortic stenosis. RECOMMENDATIONS: Continue Aldactone 25 mg once a day, hydralazine 50 mg p.o. twice a day, Diovan 320 mg once a day, Imdur 60 mg once a day, K-Dur 20 mEq once a day, Lasix 40 mg intravenous twice a day. Consider resuming therapeutic Lovenox therapy if cleared by surgical team. Obtain a followup BMP as well as EKG in the a.m. Farhad Laws MD
--- NOTE | 2016-12-01 03:51 | PN ---
DATE: 11/30/2016 SUBJECTIVE: This patient was seen and evaluated earlier today. Discussed with the nursing staff. This 71-year-old patient, well known to our service with a past medical history of obesity, diabetes mellitus, COPD, CHF, pulmonary hypertension, and history of breast cancer. The patient has a large colonic polyp, status post polypectomies, and multiple colon polyps, history of portal cirrhosis, portal hypertension, admitted with worsening of the gangrene of the left hallux, status post surgery. The patient was anemic and was transfused. Denies any bleeding per rectum or melena. The patient is now in the TCU, requested GI evaluation for followup of this anemia. PHYSICAL EXAMINATION: GENERAL: The patient is lying on the bed, not in acute distress. HEENT: Atraumatic and anicteric. NECK: Supple. HEART: S1 and S2 heard. LUNGS: Bilateral air entry present. IMPRESSION AND PLAN: This 71-year-old patient with history of atrial fibrillation, congestive heart failure, and chronic kidney disease. Would recommend to followup of the hemoglobin and hematocrit. The patient is on proton pump inhibitor, followup on that hemoglobin and hematocrit, if there is any acute worsening of the symptoms gastrointestinal bleeding, we will consider repeating the endoscopy. The patient did have arteriovenous malformations in the past, treated with portal hypertensive gastropathy. Thank you very much for allowing me to participate in the care of the patient. Rahel Hamilton MD
[2016-12-01] MEDS: Pantoprazole 40 mg EC Tab PO SCH (05:51)
[2016-12-01 06:39] LABS: BLOOD UREA NITROGEN 16 mg/dL (7-21); CALCIUM 9.3 mg/dL (8.4-10.5); CHLORIDE 93 mmol/L (95-110); GFR AFRICAN-AMERICAN > 60; GLUCOSE,RANDOM 157 mg/dL (70-110); POTASSIUM 3.3 mmol/L (3.6-5.0); SODIUM 141 mmol/L (132-148)
[2016-12-01] MEDS: Enoxaparin 100 mg Syringe SC SCH ×2 (06:49→17:20)
[2016-12-01] MEDS: Insulin Lispro (humaLOG) MEDIUM Coverage SC SCH ×4 (06:50→21:50)
[2016-12-01 06:53] LABS: CARBON DIOXIDE 40 mmol/L (21-33)
[2016-12-01] MEDS: Potassium Chloride 20 mEq ER Tab PO SCH (08:29)
[2016-12-01] MEDS: Nystatin 100,000 Units/gm Topical Pow(15 gm) TOP SCH ×2 (10:16→17:20)
[2016-12-01] MEDS: Oxycodone/Acetaminophen 5/325 mg Tab PO PRN (10:42)
--- NOTE | 2016-12-01 14:31 | CP.PCM.PN ---
Subjective - Date & Time of Evaluation Date of Evaluation: 12/01/16 Time of Evaluation: 12:00 - Subjective Subjective: Comfortable, not in distress, afebrile. Objective - Vital Signs/Intake and Output Vital Signs (last 24 hours): Temp Pulse Resp BP Pulse Ox 97.8 F 77 18 132/73 98 11/30/16 10:00 11/30/16 11:19 11/30/16 10:00 11/30/16 11:19 11/30/16 10:00 - Medications Medications: Current Medications Acetaminophen (Tylenol 325mg Tab) 650 mg PO Q4H PRN; Protocol PRN Reason: fever >100.5 Albuterol/Ipratropium (Duoneb 3 Mg/0.5 Mg (3 Ml) Ud) 3 ml IH Q3H PRN; Protocol PRN Reason: Shortness of Breath Furosemide (Lasix) 40 mg PO BID [facility] PRN Reason: Protocol Last Admin: 11/30/16 11:17 Dose: 40 mg Hydralazine HCl (Apresoline) 50 mg PO BID [facility] PRN Reason: Protocol Last Admin: 11/30/16 11:19 Dose: 50 mg Piperacillin Sod/Tazobactam Sod (Zosyn 4.5 Gm In Ns 100ml) 4.5 gm in 100 mls @ 200 mls/hr IVPB Q6 [facility] PRN Reason: Protocol Stop: 12/07/16 00:01 Last Admin: 11/30/16 11:57 Dose: 200 mls/hr Insulin Human Lispro (Humalog Med) 0 units SC ACHS [facility] PRN Reason: Protocol Last Admin: 11/30/16 13:25 Dose: 3 units Isosorbide Mononitrate (Imdur) 60 mg PO 0600 [facility] PRN Reason: Protocol Last Admin: 11/30/16 06:06 Dose: 60 mg Metoprolol Tartrate (Lopressor) 25 mg PO 0800,1700 [facility] PRN Reason: Protocol Last Admin: 11/30/16 08:17 Dose: 25 mg Nicotine (Nicoderm Cq) 1 patch TD DAILY [facility] PRN Reason: Protocol Last Admin: 11/30/16 11:17 Dose: 1 patch Nystatin (Nystop Topical Powder) 0 gm TOP BID [facility] PRN Reason: Protocol Last Admin: 11/30/16 11:21 Dose: 1 appl Ondansetron HCl (Zofran Inj) 4 mg IVP Q4H PRN; Protocol PRN Reason: Nausea/Vomiting Oxycodone/Acetaminophen (Percocet 5/325 Mg Tab) 1 tab PO Q4H PRN; Protocol PRN Reason: moderate pain Stop: 12/02/16 22:22 Last Admin: 11/30/16 02:30 Dose: 1 tab Oxycodone/Acetaminophen (Percocet 5/325 Mg Tab) 2 tab PO Q4H PRN; Protocol PRN Reason: severe pain Stop: 12/02/16 22:30 Pantoprazole Sodium (Protonix Ec Tab) 40 mg PO 0600 [facility] PRN Reason: Protocol Last Admin: 11/30/16 06:06 Dose: 40 mg Potassium Chloride (K-Dur 20 Meq Er Tab) 20 meq PO 0800 [facility] PRN Reason: Protocol Last Admin: 11/30/16 08:17 Dose: 20 meq Spironolactone (Aldactone) 25 mg PO DAILY [facility] PRN Reason: Protocol Last Admin: 11/30/16 11:19 Dose: 25 mg Valsartan (Diovan) 320 mg PO DAILY [facility] PRN Reason: Protocol Last Admin: 11/30/16 11:18 Dose: 320 mg - Constitutional Appears: Non-toxic, No Acute Distress - Head Exam Head Exam: NORMAL INSPECTION - ENT Exam ENT Exam: Mucous Membranes Moist - Neck Exam Neck Exam: absent: Meningismus - Respiratory Exam Respiratory Exam: Decreased Breath Sounds - Cardiovascular Exam Cardiovascular Exam: +S1, +S2 - GI/Abdominal Exam GI & Abdominal Exam: Soft. absent: Tenderness - Extremities Exam Additional comments: left foot with dressings in place Assessment and Plan - Assessment and Plan (Free Text) Plan: Assessment left hallux gangrene and foot gangrene, growing Pseudomonas and Citrobacter S/P amputation POD #4 history of sepsis from UTI, and cellulitis of the left foot history of Ventilator-dependent respiratory failure probably from pulmonary edema and aspiration pneumonia, healthcare-associated history of infected diabetic ulceration of the left hallux associated with trauma with probable peripheral vascular disease, growing MRSA with no evidence of osteomyelitis on MRI S/P arthrectomy and angioplasty of left sided lower extremity vasculature S/P Sepsis with acute hypoxic respiratory failure secondary to left-sided healthcare-associated pneumonia with possible gram positive cocci and/or gram negative bacilli history of sepsis from persistent methicillin-resistant coagulase negative staph bacteremia, probably port infection S/P removal of the port history of Group G Strep bacteremia history of E. coli UTI history of healthcare-associated pneumonia acute renal failure obesity with BMI 38 CAD GERD arthritis history of bilateral knee replacements chronic CHF COPD DM history of breast CA History of Strep bovis bacteremia (2012) S/P Port-a-cath placement Plan will continue Zosyn pending OR cx and pathology will continue to follow clinically
[2016-12-01] MEDS ORDERED: Potassium Chloride 20 mEq ER Tab PO ONE (14:37)
--- NOTE | 2016-12-01 16:32 | CP.PCM.PN ---
<Luci Hatch - Last Filed: 12/02/16 11:27> Subjective - Date & Time of Evaluation Date of Evaluation: 12/01/16 Time of Evaluation: 15:45 - Subjective Subjective: Podiatry Progress Note - Dr. Hoffman 71 y/o female seen at bedside with Dr. Hoffman 4 days s/p left hallux amputation. Patient states she started to have diarrhea overnight and had an accident on her left foot dressing. patient denies any pain in her foot. Patient denies any F/C/N/V/SOB. Objective - Vital Signs/Intake and Output Vital Signs (last 24 hours): Temp Pulse Resp BP Pulse Ox 97.3 F L 70 18 143/84 97 12/01/16 10:00 12/01/16 10:15 12/01/16 10:00 12/01/16 10:15 12/01/16 10:00 - Medications Medications: Current Medications Acetaminophen (Tylenol 325mg Tab) 650 mg PO Q4H PRN; Protocol PRN Reason: fever >100.5 Albuterol/Ipratropium (Duoneb 3 Mg/0.5 Mg (3 Ml) Ud) 3 ml IH Q3H PRN; Protocol PRN Reason: Shortness of Breath Enoxaparin Sodium (Lovenox) 100 mg SC 0600,1800 [facility] PRN Reason: Protocol Last Admin: 12/01/16 06:49 Dose: 100 mg Furosemide (Lasix) 40 mg PO BID [facility] PRN Reason: Protocol Last Admin: 12/01/16 10:15 Dose: 40 mg Hydralazine HCl (Apresoline) 50 mg PO BID [facility] PRN Reason: Protocol Last Admin: 12/01/16 10:15 Dose: 50 mg Piperacillin Sod/Tazobactam Sod (Zosyn 4.5 Gm In Ns 100ml) 4.5 gm in 100 mls @ 200 mls/hr IVPB Q6 [facility] PRN Reason: Protocol Stop: 12/07/16 00:01 Last Admin: 12/01/16 12:21 Dose: 200 mls/hr Insulin Human Lispro (Humalog Med) 0 units SC ACHS [facility] PRN Reason: Protocol Last Admin: 12/01/16 12:28 Dose: 1 units Isosorbide Mononitrate (Imdur) 60 mg PO 0600 [facility] PRN Reason: Protocol Last Admin: 12/01/16 05:51 Dose: 60 mg Metoprolol Tartrate (Lopressor) 25 mg PO 0800,1700 [facility] PRN Reason: Protocol Last Admin: 12/01/16 08:29 Dose: 25 mg Nicotine (Nicoderm Cq) 1 patch TD DAILY [facility] PRN Reason: Protocol Last Admin: 12/01/16 10:14 Dose: 1 patch Nystatin (Nystop Topical Powder) 0 gm TOP BID [facility] PRN Reason: Protocol Last Admin: 12/01/16 10:16 Dose: 1 appl Ondansetron HCl (Zofran Inj) 4 mg IVP Q4H PRN; Protocol PRN Reason: Nausea/Vomiting Oxycodone/Acetaminophen (Percocet 5/325 Mg Tab) 1 tab PO Q4H PRN; Protocol PRN Reason: moderate pain Stop: 12/02/16 22:22 Last Admin: 12/01/16 10:42 Dose: 1 tab Oxycodone/Acetaminophen (Percocet 5/325 Mg Tab) 2 tab PO Q4H PRN; Protocol PRN Reason: severe pain Stop: 12/02/16 22:30 Pantoprazole Sodium (Protonix Ec Tab) 40 mg PO 0600 [facility] PRN Reason: Protocol Last Admin: 12/01/16 05:51 Dose: 40 mg Potassium Chloride (K-Dur 20 Meq Er Tab) 20 meq PO 0800 [facility] PRN Reason: Protocol Last Admin: 12/01/16 08:29 Dose: 20 meq Spironolactone (Aldactone) 25 mg PO DAILY [facility] PRN Reason: Protocol Last Admin: 12/01/16 10:14 Dose: 25 mg Valsartan (Diovan) 320 mg PO DAILY [facility] PRN Reason: Protocol Last Admin: 12/01/16 10:15 Dose: 320 mg Warfarin Sodium (Coumadin) 5 mg PO 1800 [facility] PRN Reason: Protocol - Labs Labs: 12/01/16 06:00 - Constitutional Appears: Well, Non-toxic, No Acute Distress - Extremities Exam Additional comments: Left lower extremity focused examination: Vasc: DP/PT pulses non-palpable, +2 non-pitting edema noted from mid calf extending distally to digits, CFT delayed to all digits. Absence of pedal hair growth is noted Neuro: Protective sensation grossly diminished Derm: surgical incision site well coapted at proximal and distal aspects with wound dehiscence at midpoint, sutures intact, mild active bleeding noted, no purulence, no malodor, no edema, no erythema, no ascending cellulitis, no fluctuance, no acute clinical signs of infection ortho: no pain on palpation of surgical site - Neurological Exam Neurological Exam: Alert, Awake, Oriented x3 - Psychiatric Exam Psychiatric exam: Normal Affect, Normal Mood Assessment and Plan - Assessment and Plan (Free Text) Assessment: 71 y/o female seen at bedside 4 days s.p left hallux amputation Plan: Pt seen and evaluated at bedside with Dr. Hoffman Chart, labs and vitals reviewed- afebrile Intra-op culture shows Citrobacter and Pseudomonas Pt to continue on IV abx as per ID - Vancomycin & Zosyn Pathology final report reviewed: Gangrenous necrosis and acute osteomyelitis of toe. Resection margin is viable and free of inflammation. Dressing change to L foot with Acticoat and DSD. patient to ambulate with forefoot offloading shoe and work with PT Podiatry will continue to follow while in house <Nikia Hoffman - Last Filed: 12/05/16 16:29> Objective - Vital Signs/Intake and Output Vital Signs (last 24 hours): Temp Pulse Resp BP Pulse Ox 98.4 F 85 18 133/68 94 L 12/05/16 06:00 12/05/16 09:59 12/05/16 06:00 12/05/16 10:00 12/05/16 06:00 Intake and Output: 12/05/16 12/05/16 06:59 18:59 Intake Total 480 Output Total 650 Balance -170 - Medications Medications: Current Medications Acetaminophen (Tylenol 325mg Tab) 650 mg PO Q4H PRN; Protocol PRN Reason: fever >100.5 Albuterol/Ipratropium (Duoneb 3 Mg/0.5 Mg (3 Ml) Ud) 3 ml IH Q3H PRN; Protocol PRN Reason: Shortness of Breath Enoxaparin Sodium (Lovenox) 100 mg SC 0600,1800 [facility] PRN Reason: Protocol Last Admin: 12/05/16 05:54 Dose: 100 mg Furosemide (Lasix) 40 mg PO BID [facility] PRN Reason: Protocol Last Admin: 12/05/16 10:00 Dose: 40 mg Glipizide (Glucotrol) 10 mg PO 0700,1700 [facility] Last Admin: 12/05/16 08:03 Dose: 10 mg Hydralazine HCl (Apresoline) 50 mg PO BID [facility] PRN Reason: Protocol Last Admin: 12/05/16 09:59 Dose: 50 mg Isosorbide Mononitrate (Imdur) 60 mg PO 0600 [facility] PRN Reason: Protocol Last Admin: 12/05/16 05:54 Dose: 60 mg Metoprolol Tartrate (Lopressor) 25 mg PO 0800,1700 [facility] PRN Reason: Protocol Last Admin: 12/05/16 08:03 Dose: 25 mg Nicotine (Nicoderm Cq) 1 patch TD DAILY [facility] PRN Reason: Protocol Last Admin: 12/05/16 09:58 Dose: 1 patch Nystatin (Nystop Topical Powder) 0 gm TOP BID [facility] PRN Reason: Protocol Last Admin: 12/05/16 09:58 Dose: 1 appl Ondansetron HCl (Zofran Inj) 4 mg IVP Q4H PRN; Protocol PRN Reason: Nausea/Vomiting Oxycodone/Acetaminophen (Percocet 5/325 Mg Tab) 1 tab PO Q4H PRN; Protocol PRN Reason: Pain, moderate (4-7) Stop: 12/06/16 12:22 Last Admin: 12/05/16 16:19 Dose: 1 tab Oxycodone/Acetaminophen (Percocet 5/325 Mg Tab) 2 tab PO Q4H PRN; Protocol PRN Reason: Pain, severe (8-10) Stop: 12/06/16 12:23 Pantoprazole Sodium (Protonix Ec Tab) 40 mg PO 0600 [facility] PRN Reason: Protocol Last Admin: 12/05/16 05:56 Dose: 40 mg Potassium Chloride (K-Dur 20 Meq Er Tab) 20 meq PO 0800 [facility] PRN Reason: Protocol Last Admin: 12/05/16 08:03 Dose: 20 meq Sitagliptin Phosphate (Januvia) 50 mg PO DAILY [facility] Last Admin: 12/05/16 09:57 Dose: 50 mg Spironolactone (Aldactone) 25 mg PO DAILY [facility] PRN Reason: Protocol Last Admin: 12/05/16 09:59 Dose: 25 mg Valsartan (Diovan) 320 mg PO DAILY [facility] PRN Reason: Protocol Last Admin: 12/05/16 10:00 Dose: 320 mg Warfarin Sodium (Coumadin) 7.5 mg PO 1800 [facility] Last Admin: 12/04/16 17:48 Dose: 7.5 mg Warfarin Sodium (Coumadin) 2.5 mg PO 1800 [facility] PRN Reason: Protocol Zolpidem Tartrate (Ambien) 5 mg PO HS PRN; Protocol PRN Reason: Insomnia - Labs Labs: 12/02/16 07:30 12/02/16 07:30 PT 14.0 Seconds (9.9-11.8) H 12/05/16 06:30 INR 1.30 (0.93-1.08) H 12/05/16 06:30 Attending/Attestation - Attestation I have personally seen and examined this patient.: Yes I have fully participated in the care of the patient.: Yes I have reviewed all pertinent clinical information, including history, physical exam and plan: Yes
--- NOTE | 2016-12-01 16:58 | PN ---
DATE: 12/01/2016 REASON FOR CONSULTATION: Followup continuity of care in the transitional care unit, coronary artery disease, aortic stenosis, status post amputation of left big toe. SUBJECTIVE: The patient denies any chest pain. Denies any shortness of breath. Denies any palpitation. PHYSICAL EXAMINATION: GENERAL: Sitting in the bed in the transitional care unit, room 302, not in apparent distress. VITAL SIGNS: As follows: Temperature afebrile, heart rate 70, and blood pressure 142/84. HEENT: PERRLA. Extraocular muscles intact. NECK: Supple. No carotid bruits or thyromegaly. LUNGS: Chest clear to auscultation. HEART: S1 and S2. Regular. ABDOMEN: Soft. EXTREMITIES: Clubbing and cyanosis negative. LABORATORY DATA: Blood workup as follows: CBC was not done. Chemistry shows a sodium 141, potassium 3.2, chloride 93, carbon dioxide 40, anion gap of 11, BUN 16, and creatinine 0.8. IMPRESSION: Hypokalemia, peripheral arterial disease, status post left big toe amputation, one-vessel coronary artery disease, very well collateralized from right coronary artery, diabetes, hypertension, hyperlipidemia, morbid obesity, preoperative evaluation for left big toe, cleared for surgery, on beta-[place], moderate aortic stenosis, valve area of 1.1 cm2, history of chronic atrial fibrillation, and history of moderate aortic stenosis. RECOMMENDATIONS: Continue hydralazine. Avoid nephrotoxic medications. Continue Imdur. Continue Lasix. Continue anticoagulation until INR gets therapeutic. Continue valsartan. Continue isosorbide. We will start p.o. Coumadin. W will repeat the blood workup in the morning after supplementing potassium. We will give 40 of K-Dur today and repeat the lab in the morning. Repeat the blood workup, CBC, magnesium, phosphatase as well as CMP in the morning. Brianna Sandra MD
[2016-12-02] MEDS: Piperacill/Tazo 4.5gm in NS 4.5 GM/100 ML BAG IVPB SCH ×5 (00:06→23:06)
[2016-12-02] MEDS: Enoxaparin 100 mg Syringe SC SCH ×2 (05:33→17:29)
[2016-12-02] MEDS: Pantoprazole 40 mg EC Tab PO SCH (05:33)
[2016-12-02] MEDS: Insulin Lispro (humaLOG) MEDIUM Coverage SC SCH ×4 (06:53→22:11)
[2016-12-02 07:48] LABS: BASO # 0.03 K/mm3 (0.0-2.0); BASO % 0.5 % (0.0-3.0); EOS # 0.3 (0.0-0.7); EOS % 5.6 % (1.5-5.0); GRAN # 3.69 (1.4-6.5); GRAN % 66.7 % (50.0-68.0); HEMATOCRIT 29.7 % (36.0-48.0); LYMPH % 17.4 % (22.0-35.0); MEAN CELL VOLUME 91.4 fl (80.0-105.0); MEAN CORPUSCULAR HEMOGLOBIN 28.3 pg (25.0-35.0); MEAN PLATELET VOLUME 9.1 fl (7.0-11.0); MONO # 0.5 (0.1-0.6); MONO % 9.8 % (1.0-6.0); WHITE BLOOD COUNT 5.5 10^3/ul (4.5-11.0)
[2016-12-02] MEDS: Potassium Chloride 20 mEq ER Tab PO SCH (07:51)
[2016-12-02 07:59] LABS: INR 1.08 (0.93-1.08)
[2016-12-02 08:00] LABS: ALB/GLOB RATIO 1.5 (1.1-1.8); ALKALINE PHOSPHATASE 113 U/L (38-126); ALT/SGPT 30 U/L (7-56); AST/SGOT 24 U/L (14-36); BILIRUBIN,TOTAL 0.7 mg/dL (0.2-1.3); BLOOD UREA NITROGEN 17 mg/dL (7-21); CALCIUM 9.6 mg/dL (8.4-10.5); CARBON DIOXIDE 39 mmol/L (21-33); CHLORIDE 94 mmol/L (98-107); GFR AFRICAN-AMERICAN > 60; GLUCOSE,RANDOM 139 mg/dL (70-110); MAGNESIUM 1.7 mg/dL (1.7-2.2); PHOSPHOROUS 3.8 mg/dL (2.5-4.5); POTASSIUM 3.6 mmol/L (3.6-5.0); SODIUM 141 mmol/L (132-148); TOTAL PROTEIN 6.4 g/dL (5.8-8.3)
[2016-12-02] MEDS: Nystatin 100,000 Units/gm Topical Pow(15 gm) TOP SCH ×2 (10:15→17:29)
--- NOTE | 2016-12-02 13:27 | PN ---
DATE: 12/02/2016 SUBJECTIVE: The patient is in bed, in no acute distress, nontoxic. PHYSICAL EXAMINATION: VITAL SIGNS: Temperature is 98, blood pressure is 150/60, and respiratory rate of 20. HEENT: Unremarkable. NECK: Supple. LUNGS: Decreased breath sounds. HEART: Normal S1 and S2. ABDOMEN: Soft. LABORATORY DATA: Reveals a white count of 5.5, hemoglobin of 9, and platelets of 235. BUN of 70 and creatinine of 0.8. Microbiology is noted. ASSESSMENT AND PLAN: This is a 71-year-old with left hallux gangrene versus foot gangrene showing Pseudomonas and Citrobacter, status post amputation, postoperative day #4, history of sepsis and cellulitis of the left foot, history of ventilatory-dependent respiratory failure and currently on Zosyn, awaiting for OR cultures from the bone, which shows Citrobacter freundii and initial cultures of Citrobacter and Pseudomonas, pansensitive to Citrobacter. We will check on the pathology from 11/27/2016, which reveals resection, which is viable and free of inflammation and we treat with 5-7 days of antibiotics. Benjamin Obrien MD
[2016-12-02] MEDS: Oxycodone/Acetaminophen 5/325 mg Tab PO PRN (15:25)
--- NOTE | 2016-12-02 16:32 | PN ---
DATE: REASON FOR CONSULTATION AND FOLLOWUP: Continuity of care in transitional care unit; aortic stenosis; status post amputation of big toe, PAD; CAD. SUBJECTIVE: The patient denies any chest pain, any shortness of breath, any palpitation. OBJECTIVE: GENERAL: Lying flat in bed, not in apparent distress, room 302. VITAL SIGNS: As follows, temperature afebrile, heart rate 78, blood pressure 156/79. HEENT: PERRLA. Extraocular muscles intact. NECK: Supple. No carotid bruits or thyromegaly. CHEST: Clear to auscultation. HEART: S1 and S2 regular. ABDOMEN: Soft. EXTREMITIES: Clubbing and cyanosis negative. LABORATORY DATA: WBC 5.5, hemoglobin 9.8, hematocrit 29.7, platelet count 235. Chemistry shows sodium 141, potassium 3.6, chloride 94, carbon dioxide 39, anion gap of 12, BUN 17, creatinine 0.8. IMPRESSION: Peripheral arterial disease, status post amputation of left toe; coronary artery disease, one-vessel coronary artery disease; right coronary artery very well collateralized from left anterior descending artery; moderate aortic stenosis; chronic atrial fibrillation; diabetes; hypertension; hyperlipidemia. RECOMMENDATIONS: We started yesterday Coumadin. Continue hydralazine. Avoid nephrotoxic medication. Continue Imdur. Continue Lasix. Continue valsartan. Continue isosorbide nitrate. Repeat blood workup in the morning. Continue rehab. We will discontinue Lovenox when the INR gets therapeutic. In the interim, continue Lovenox. Supplement potassium as needed. We will follow with you. K-Dur to the next high dose. The patient is already on Lovenox and spironolactone. We will follow with you. Thank you Dr. Kirby for providing me the opportunity in taking care of the patient, Esther Baxter. Brianna Sandra MD
--- NOTE | 2016-12-02 16:40 | CP.PCM.PN ---
Subjective - Date & Time of Evaluation Date of Evaluation: 12/02/16 Time of Evaluation: 09:25 - Subjective Subjective: Seen and examined at the bedside earlier today, patient tolerating oral intake. Reporting BMs, no overt GI bleed. Does report diarrhea. Denies nausea, vomiting, abdominal pain, shortness of breath, or chest pain. Objective - Vital Signs/Intake and Output Vital Signs (last 24 hours): Temp Pulse Resp BP Pulse Ox 98.2 F 76 20 142/85 94 L 12/02/16 16:00 12/02/16 16:00 12/02/16 16:00 12/02/16 16:00 12/02/16 16:00 Intake and Output: 12/02/16 12/02/16 06:59 18:59 Intake Total 420 Output Total 1601 Balance -1181 - Medications Medications: Current Medications Acetaminophen (Tylenol 325mg Tab) 650 mg PO Q4H PRN; Protocol PRN Reason: fever >100.5 Albuterol/Ipratropium (Duoneb 3 Mg/0.5 Mg (3 Ml) Ud) 3 ml IH Q3H PRN; Protocol PRN Reason: Shortness of Breath Enoxaparin Sodium (Lovenox) 100 mg SC 0600,1800 [facility] PRN Reason: Protocol Last Admin: 12/02/16 05:33 Dose: 100 mg Furosemide (Lasix) 40 mg PO BID [facility] PRN Reason: Protocol Last Admin: 12/02/16 10:14 Dose: 40 mg Hydralazine HCl (Apresoline) 50 mg PO BID [facility] PRN Reason: Protocol Last Admin: 12/02/16 10:12 Dose: 50 mg Piperacillin Sod/Tazobactam Sod (Zosyn 4.5 Gm In Ns 100ml) 4.5 gm in 100 mls @ 200 mls/hr IVPB Q6 [facility] PRN Reason: Protocol Stop: 12/07/16 00:01 Last Admin: 12/02/16 11:39 Dose: 200 mls/hr Insulin Human Lispro (Humalog Med) 0 units SC ACHS [facility] PRN Reason: Protocol Last Admin: 12/02/16 11:38 Dose: 1 units Isosorbide Mononitrate (Imdur) 60 mg PO 0600 [facility] PRN Reason: Protocol Last Admin: 12/02/16 05:33 Dose: 60 mg Metoprolol Tartrate (Lopressor) 25 mg PO 0800,1700 [facility] PRN Reason: Protocol Last Admin: 12/02/16 07:51 Dose: 25 mg Nicotine (Nicoderm Cq) 1 patch TD DAILY [facility] PRN Reason: Protocol Last Admin: 12/02/16 10:11 Dose: 1 patch Nystatin (Nystop Topical Powder) 0 gm TOP BID [facility] PRN Reason: Protocol Last Admin: 12/02/16 10:15 Dose: 1 appl Ondansetron HCl (Zofran Inj) 4 mg IVP Q4H PRN; Protocol PRN Reason: Nausea/Vomiting Oxycodone/Acetaminophen (Percocet 5/325 Mg Tab) 1 tab PO Q4H PRN; Protocol PRN Reason: moderate pain Stop: 12/02/16 22:22 Last Admin: 12/02/16 15:25 Dose: 1 tab Oxycodone/Acetaminophen (Percocet 5/325 Mg Tab) 2 tab PO Q4H PRN; Protocol PRN Reason: severe pain Stop: 12/02/16 22:30 Pantoprazole Sodium (Protonix Ec Tab) 40 mg PO 0600 [facility] PRN Reason: Protocol Last Admin: 12/02/16 05:33 Dose: 40 mg Potassium Chloride (K-Dur 20 Meq Er Tab) 20 meq PO 0800 [facility] PRN Reason: Protocol Last Admin: 12/02/16 07:51 Dose: 20 meq Spironolactone (Aldactone) 25 mg PO DAILY [facility] PRN Reason: Protocol Last Admin: 12/02/16 10:12 Dose: 25 mg Valsartan (Diovan) 320 mg PO DAILY [facility] PRN Reason: Protocol Last Admin: 12/02/16 10:13 Dose: 320 mg Warfarin Sodium (Coumadin) 5 mg PO 1800 [facility] PRN Reason: Protocol Last Admin: 12/01/16 17:19 Dose: 5 mg - Labs Labs: 12/02/16 07:30 12/02/16 07:30 PT 11.7 Seconds (9.9-11.8) 12/02/16 07:30 INR 1.08 (0.93-1.08) 12/02/16 07:30 - Constitutional Appears: No Acute Distress - Head Exam Head Exam: NORMOCEPHALIC - Eye Exam Eye Exam: Normal appearance. absent: Scleral icterus - ENT Exam ENT Exam: Mucous Membranes Moist - Neck Exam Neck Exam: Normal Inspection - Respiratory Exam Respiratory Exam: Decreased Breath Sounds, Rhonchi, NORMAL BREATHING PATTERN. absent: Respiratory Distress - Cardiovascular Exam Cardiovascular Exam: +S1, +S2 - GI/Abdominal Exam GI & Abdominal Exam: Soft, Normal Bowel Sounds. absent: Guarding, Tenderness, Rebound - Extremities Exam Extremities Exam: Pedal Edema. absent: Calf Tenderness Additional comments: Left foot with Jerrod bandage status post total amputation Assessment and Plan - Assessment and Plan (Free Text) Assessment: Assessment: Left toe gangrenous, status post amputation Anemia ,s/p blood transfusion History of duodenal angiodysplasia History of multiple colonic polyps History of portal hypertension Peripheral arterial disease Atrial fibrillation CHF COPD Chronic kidney disease Plan: monitor CBC Stool for C. difficile Continue iron infusion Continue PPI on Lovenox and Coumadin on IV antibiotics as per ID podiatry following plans for toe amputation, timing as per surgical team Patient does have high risk for endoscopy procedure in the past, continue to monitor H&H if showed marked downward trend then consider repeating the endoscopy. Seen and discussed with Dr. Hamilton.
--- NOTE | 2016-12-02 16:45 | PN ---
DATE: SUBJECTIVE: The patient is a 71 years old, seen and examined, sitting in chair, seems to be comfortable. Does not offer any complaints. PHYSICAL EXAMINATION: VITAL SIGNS: She is afebrile, pulse 70, respirations 20, and blood pressure 156/79. LUNGS: Bilateral air flow. No rhonchi or crackles. HEART: S1 and S2, audible. Regular, rate controlled. ABDOMEN: Soft, obese, nontender. No rebound. No guarding. NEUROLOGIC: Patient is awake and alert, communicative. Status post left big toe amputation because of gangrene. LABORATORY DATA: WBC is 5.5, hemoglobin 9.2, hematocrit 9.7, platelet 235. PT 11.7, INR 1.08. Chemistry: Sodium 141, potassium 3.6, chloride 94, carbon dioxide 39, BUN 17, creatinine 0.8. Blood sugar of 169. ASSESSMENT: 1. Severe peripheral vascular disease status post angioplasty, status post left big toe amputation. 2. Coronary artery disease, stable. 3. Non-insulin dependant diabetes. 4. Hypertension. 5. Hyperlipidemia. 6. Morbid obesity. 7. Congestive gastropathy. 8. Pulmonary hypertension. 9. Chronic obstructive pulmonary disease. 10. Chronic atrial fibrillation. PLAN: Currently patient is on Coumadin. We will continue her current medications. All medications reviewed and found to be appropriate. Edwige Kirby MD
[2016-12-03] MEDS: Piperacill/Tazo 4.5gm in NS 4.5 GM/100 ML BAG IVPB SCH ×4 (05:58→23:52)
[2016-12-03] MEDS: Pantoprazole 40 mg EC Tab PO SCH (05:58)
[2016-12-03] MEDS: Enoxaparin 100 mg Syringe SC SCH ×2 (05:59→17:43)
[2016-12-03 07:30] LABS: INR 1.08 (0.93-1.08)
[2016-12-03] MEDS: Insulin Lispro (humaLOG) MEDIUM Coverage SC SCH ×2 (07:59→11:36)
[2016-12-03] MEDS: Potassium Chloride 20 mEq ER Tab PO SCH (08:37)
[2016-12-03] MEDS: Nystatin 100,000 Units/gm Topical Pow(15 gm) TOP SCH ×2 (09:09→17:43)
[2016-12-03] MEDS ORDERED: Oxycodone/Acetaminophen 5/325 mg Tab PO PRN (12:22)
--- NOTE | 2016-12-03 15:13 | PN ---
DATE: SUBJECTIVE: The patient is a 71-year-old, seen and examined, lying in bed comfortable, and not in any acute distress. Scanty cough. No fever. No chills. No nausea. No vomiting. No rectal bleeding. PHYSICAL EXAMINATION: VITAL SIGNS: She is afebrile, pulse 78, respirations 18, and blood pressure 139/78. HEART: S1 and S2 audible. LUNGS: Bilateral fair air flow. No rhonchi or crackles. ABDOMEN: Soft and nontender. No rebound. No guarding. NEUROLOGIC: She is awake and alert, able to communicate. Moves all extremities. Walks with the walker. LABORATORY DATA: PT 11.7 and INR 1.08. Blood sugar is 383. ASSESSMENT: 1. Status post left big toe amputation secondary to gangrene. 2. Severe peripheral vascular disease. 3. Chronic obstructive pulmonary disease. 4. Pulmonary hypertension. 5. Congestive gastropathy. 6. . 7. Pseudomonas and Citrobacter wound infection, postoperative day 5. PLAN: Currently, the patient is on we will give her 7.5 of Coumadin today. Followup PT/INR in a.m. Encourage ambulation. Blood sugar seems to be running, I will adjust her insulin and we will reevaluate in a.m. Edwige Kirby MD
--- NOTE | 2016-12-03 16:03 | PN ---
DATE: 12/03/2016 LOCATION: Room 302, bed 1. REASON FOR CONSULTATION: Followup aortic stenosis, status post amputation of big toe, peripheral vascular disease, coronary artery disease. SUBJECTIVE: The patient is sitting in chair without any chest pain, shortness of breath, or palpitation. PHYSICAL EXAMINATION: VITAL SIGNS: Blood pressure is 129/78, respirations 18, pulse 78, the patient is afebrile. HEENT: Head is normocephalic. Eyes: Pupils normal. Conjunctivae, slightly pale. NECK: JVP low. Carotids are equal. THORAX: AP diameter normal. LUNGS: Clear. CARDIOVASCULAR: S1 and S2. Systolic murmur. ABDOMEN: Protuberant. No organomegaly. EXTREMITIES: No clubbing. No cyanosis. LABORATORY DATA: WBC 5.5, hemoglobin 9.2, hematocrit 29.7, platelets 235. Sodium 141, potassium 3.6, BUN 17, creatinine 0.8. Sugar random 383, other sugar random 139. Phosphorus, magnesium, total bilirubin, AST and ALT, total protein and albumin normal. DIAGNOSES: Peripheral vascular disease, status post amputation of big toe on the left foot; one-vessel coronary artery disease, which was right coronary, which was very well collateralized from the left descending artery, moderate aortic stenosis, chronic atrial fibrillation, diabetes, hypertension, hyperlipidemia, obesity PLAN: The patient started back on Coumadin yesterday and today's prothrombin time is 11.7 with an INR 1.08. The patient is getting warfarin 5 mg daily. We will give today total 10 mg, we will give 5 mg extra dose today. Diovan 320 daily, isosorbide mononitrate 60 daily, potassium 20 mEq p.o. daily, Lasix 40 mg p.o. b.i.d., metoprolol 25 b.i.d., Lovenox 100 mg subcutaneously b.i.d.; we will continue that till we get the PT/INR therapeutic, Protonix 40 mg p.o. daily. The patient is on IV antibiotic piperacillin tazobactam 4.5 grams IV q. 6 hours. We will follow PT/INR and we will follow with you. Brianna Deng MD
--- NOTE | 2016-12-03 19:31 | CP.PCM.PN ---
Subjective - Date & Time of Evaluation Date of Evaluation: 12/03/16 Time of Evaluation: 18:05 - Subjective Subjective: Comfortable, not in distress, afebrile. Objective - Vital Signs/Intake and Output Vital Signs (last 24 hours): Temp Pulse Resp BP Pulse Ox 98.2 F 78 20 129/78 94 L 12/02/16 16:00 12/03/16 09:08 12/02/16 16:00 12/03/16 09:09 12/02/16 16:00 Intake and Output: 12/03/16 12/03/16 06:59 18:59 Intake Total 600 Balance 600 - Medications Medications: Current Medications Acetaminophen (Tylenol 325mg Tab) 650 mg PO Q4H PRN; Protocol PRN Reason: fever >100.5 Albuterol/Ipratropium (Duoneb 3 Mg/0.5 Mg (3 Ml) Ud) 3 ml IH Q3H PRN; Protocol PRN Reason: Shortness of Breath Enoxaparin Sodium (Lovenox) 100 mg SC 0600,1800 [facility] PRN Reason: Protocol Last Admin: 12/03/16 05:59 Dose: 100 mg Furosemide (Lasix) 40 mg PO BID [facility] PRN Reason: Protocol Last Admin: 12/03/16 09:09 Dose: 40 mg Hydralazine HCl (Apresoline) 50 mg PO BID [facility] PRN Reason: Protocol Last Admin: 12/03/16 09:08 Dose: 50 mg Piperacillin Sod/Tazobactam Sod (Zosyn 4.5 Gm In Ns 100ml) 4.5 gm in 100 mls @ 200 mls/hr IVPB Q6 [facility] PRN Reason: Protocol Stop: 12/07/16 00:01 Last Admin: 12/03/16 05:58 Dose: 200 mls/hr Insulin Human Lispro (Humalog Med) 0 units SC ACHS [facility] PRN Reason: Protocol Last Admin: 12/03/16 07:59 Dose: 1 units Isosorbide Mononitrate (Imdur) 60 mg PO 0600 [facility] PRN Reason: Protocol Last Admin: 12/03/16 05:58 Dose: 60 mg Metoprolol Tartrate (Lopressor) 25 mg PO 0800,1700 [facility] PRN Reason: Protocol Last Admin: 12/03/16 08:39 Dose: 25 mg Nicotine (Nicoderm Cq) 1 patch TD DAILY [facility] PRN Reason: Protocol Last Admin: 12/03/16 09:08 Dose: 1 patch Nystatin (Nystop Topical Powder) 0 gm TOP BID [facility] PRN Reason: Protocol Last Admin: 12/03/16 09:09 Dose: 1 appl Ondansetron HCl (Zofran Inj) 4 mg IVP Q4H PRN; Protocol PRN Reason: Nausea/Vomiting Pantoprazole Sodium (Protonix Ec Tab) 40 mg PO 0600 [facility] PRN Reason: Protocol Last Admin: 12/03/16 05:58 Dose: 40 mg Potassium Chloride (K-Dur 20 Meq Er Tab) 20 meq PO 0800 [facility] PRN Reason: Protocol Last Admin: 12/03/16 08:37 Dose: 20 meq Spironolactone (Aldactone) 25 mg PO DAILY [facility] PRN Reason: Protocol Last Admin: 12/03/16 09:08 Dose: 25 mg Valsartan (Diovan) 320 mg PO DAILY [facility] PRN Reason: Protocol Last Admin: 12/03/16 09:08 Dose: 320 mg Warfarin Sodium (Coumadin) 5 mg PO 1800 [facility] PRN Reason: Protocol Last Admin: 12/02/16 17:38 Dose: 5 mg - Labs Labs: 12/02/16 07:30 12/02/16 07:30 PT 11.7 Seconds (9.9-11.8) 12/03/16 06:30 INR 1.08 (0.93-1.08) 12/03/16 06:30 - Constitutional Appears: Non-toxic, No Acute Distress - Head Exam Head Exam: NORMAL INSPECTION - ENT Exam ENT Exam: Mucous Membranes Moist - Neck Exam Neck Exam: absent: Meningismus - Respiratory Exam Respiratory Exam: Decreased Breath Sounds - Cardiovascular Exam Cardiovascular Exam: +S1, +S2 - GI/Abdominal Exam GI & Abdominal Exam: Soft. absent: Tenderness - Extremities Exam Additional comments: left foot with dressings in place Assessment and Plan - Assessment and Plan (Free Text) Plan: Assessment left hallux gangrene and foot gangrene, growing Pseudomonas and Citrobacter S/P amputation POD #6; bone margins are clear of inflammation on pathology history of sepsis from UTI, and cellulitis of the left foot history of Ventilator-dependent respiratory failure probably from pulmonary edema and aspiration pneumonia, healthcare-associated history of infected diabetic ulceration of the left hallux associated with trauma with probable peripheral vascular disease, growing MRSA with no evidence of osteomyelitis on MRI S/P arthrectomy and angioplasty of left sided lower extremity vasculature S/P Sepsis with acute hypoxic respiratory failure secondary to left-sided healthcare-associated pneumonia with possible gram positive cocci and/or gram negative bacilli history of sepsis from persistent methicillin-resistant coagulase negative staph bacteremia, probably port infection S/P removal of the port history of Group G Strep bacteremia history of E. coli UTI history of healthcare-associated pneumonia acute renal failure obesity with BMI 38 CAD GERD arthritis history of bilateral knee replacements chronic CHF COPD DM history of breast CA History of Strep bovis bacteremia (2012) S/P Port-a-cath placement Plan will continue Zosyn day 6 to complete 7 days of antibiotics will continue to follow clinically
[2016-12-03] MEDS: Oxycodone/Acetaminophen 5/325 mg Tab PO PRN (23:54)
[2016-12-04] MEDS: Piperacill/Tazo 4.5gm in NS 4.5 GM/100 ML BAG IVPB SCH (05:36)
[2016-12-04] MEDS: Pantoprazole 40 mg EC Tab PO SCH (05:39)
[2016-12-04] MEDS: Enoxaparin 100 mg Syringe SC SCH ×2 (05:39→17:44)
[2016-12-04 07:13] LABS: INR 1.14 (0.93-1.08)
[2016-12-04] MEDS: Potassium Chloride 20 mEq ER Tab PO SCH (08:11)
[2016-12-04] MEDS: Nystatin 100,000 Units/gm Topical Pow(15 gm) TOP SCH ×2 (11:18→17:48)
--- NOTE | 2016-12-04 13:45 | PN ---
DATE: 12/04/2016 SUBJECTIVE: The patient is seen in bed, in no acute distress, nontoxic. She did have an episode of diarrhea. PHYSICAL EXAMINATION VITAL SIGNS: Temperature is 98, blood pressure is 150/60, respiratory rate of 18. HEENT: Unremarkable. NECK: Supple. LUNGS: Decreased breath sounds. HEART: Normal S1 and S2. ABDOMEN: Soft, nontender. LABORATORY DATA: Reveals a white count of 5.5, hemoglobin of 9. Chemistries are noted with patient's BUN of 17, creatinine of 0.8. The patient had a stool for C. diff because of episode of diarrhea, which is reported to be negative antigen, negative toxin and case was discussed with Dr. Hoffman. Dr. Hoffman reports that the patient's pathology report from the toe reveals the margins to be free of osteomyelitis. Review of the pathology from 11/27/2016 reveals the resection margin is viable and free of inflammation and that was from 7. ASSESSMENT AND PLAN: This is a 71-year-old with left hallux gangrene and foot gangrene growing Pseudomonas and Citrobacter status post amputation postop day #7. Bone margins are clear of inflammation on pathology. The patient has a history of sepsis, urinary tract infection, and cellulitis of left foot. History of vent dependant respiratory failure, probably from pulmonary edema and aspiration pneumonia and healthcare associated pneumonia, history of infected diabetic ulceration of left hallux associated with trauma, with severe underlying peripheral vascular disease, history of methicillin-resistant Staphylococcus aureus, no evidence of osteomyelitis on MRI in the past and currently we will discontinue Zosyn, patient today is day #7 and stool C. diff is negative. Dr. Hoffman states that the foot is clean. No evidence of infection at this point. No further antibiotics needed. Benjamin Obrien MD
--- NOTE | 2016-12-04 13:49 | PN ---
DATE: SUBJECTIVE: The patient is 71 years old, seen and examined, sitting in chair, seems to be comfortable. Eating and tolerating. PHYSICAL EXAMINATION: VITAL SIGNS: She is afebrile. Pulse 64, respirations 20, blood pressure 120/70. LUNGS: Bilateral good air flow. No rhonchi or crackle. HEART: S1 and S2, audible. ABDOMEN: Soft, obese, nontender. No rebound. No guarding. NEUROLOGIC: She is awake, alert. Her left foot is in the dressing, status post left big toe amputation. LABORATORY EXAMINATION:: PT 12.3, INR 1.14. Blood sugar is 209. ASSESSMENT: 1. Left big toe gangrene, status post amputation. 2. Peripheral vascular disease. 3. Hypertension. 4. Morbid obesity. 5. Pulmonary hypertension. 6. Congestive gastropathy. 7. GI arteriovenous malformations. 8. Chronic congestive heart failure. 9. History of carcinoma to the breast. 10. Non-insulin dependent diabetes. 11. Chronic obstructive pulmonary disease. PLAN: Currently, the patient is on Zosyn today is day #7 as recommended by ID. Plan for discharge in the a.m. Edwige Kirby MD
--- NOTE | 2016-12-04 15:08 | PN ---
DATE: 12/04/2016 LOCATION: The patient is in room 302, bed 1. REASON FOR CONSULTATION: Followup aortic stenosis, status post amputation of big toe, peripheral vascular disease, and coronary artery disease. SUBJECTIVE: The patient is sitting in chair without any cardiac symptoms like chest pain, shortness of breath, palpitation. The patient is getting physical therapy. PHYSICAL EXAMINATION: VITAL SIGNS: Blood pressure is 120/70, respirations 20, pulse 64, and temperature 97.8. HEENT: Head is normocephalic. Eyes, pupils are normal. Conjunctivae slightly pale. NECK: JVP low. Carotids are equal. Thorax, AP diameter is normal. LUNGS: Clear. CARDIOVASCULAR: S1 and S2. Ejection systolic murmur grade 3/6. No rub. ABDOMEN: Protuberant. No organomegaly. EXTREMITIES: As mentioned, the patient had amputation of big toe. LABORATORY DATA: WBC 5.5, hemoglobin 9.2, hematocrit 29.7, platelets 235, and random sugar 209. Sodium 141, potassium 3.6, BUN 17, creatinine 0.8, and random sugar 139. Phosphorus, magnesium, AST and ALT are normal. DIAGNOSES: Peripheral vascular disease, status post amputation of big toe on the left foot, one-vessel coronary artery disease, which was right coronary, which was very well collateralized from the left anterior and descending coronary artery, moderate aortic stenosis, chronic atrial fibrillation, diabetes, hypertension, hyperlipidemia, and obesity. PLAN: The patient started Coumadin two days ago, for two days prothrombin time is 12.3, INR 1.14. The patient is getting spironolactone 25 mg daily and hydralazine 50 mg b.i.d. She is now on warfarin 7.5 mg p.o. daily. We will give extra 2.5 today to make it 10 mg today, Diovan 325 mg p.o. daily, glipizide 10 mg b.i.d., DuoNeb hand nebulizer therapy, isosorbide mononitrate 60 mg p.o. daily, furosemide 40 mg b.i.d., metoprolol 25 mg b.i.d., Lovenox 100 mg subcu b.i.d. until INR becomes therapeutic. Protonix 40 mg daily. We will follow with you. Brianna Deng MD
[2016-12-04] MEDS: Oxycodone/Acetaminophen 5/325 mg Tab PO PRN (21:56)
[2016-12-05] MEDS: Enoxaparin 100 mg Syringe SC SCH ×2 (05:54→17:53)
[2016-12-05] MEDS: Pantoprazole 40 mg EC Tab PO SCH (05:56)
[2016-12-05 07:18] LABS: INR 1.3 (0.93-1.08)
[2016-12-05] MEDS: Potassium Chloride 20 mEq ER Tab PO SCH (08:03)
[2016-12-05] MEDS: Nystatin 100,000 Units/gm Topical Pow(15 gm) TOP SCH ×2 (09:58→17:54)
--- NOTE | 2016-12-05 13:48 | PN ---
DATE: 12/05/2016 SUBJECTIVE: The patient is seen in earlier this morning in room 302. No fevers. No chills. PHYSICAL EXAMINATION VITAL SIGNS: Temperature is 98, blood pressure is 150/70, respiratory rate of 18. HEENT: Unremarkable. NECK: Supple. LUNGS: Decreased breath sounds. HEART: Normal S1 and S2. ABDOMEN: Soft. LABORATORY DATA: Reveals a white count of 5.5, hemoglobin of 9, platelets of 235. BUN of 17, creatinine of 0.8. Review of orders reveals the patient to be on no antibiotics. ASSESSMENT AND PLAN: This is a 71-year-old with left hallux gangrene and foot gangrene growing Pseudomonas and Citrobacter status post amputation postop day #8. Bone margins are clear of any inflammation on pathology. The patient has a history of sepsis, urinary tract infection, and cellulitis of left foot. The patient with severe peripheral vascular disease, history of methicillin-resistant Staphylococcus aureus, no osteomyelitis on this admission with MRI and currently off of antibiotics. Low risk for developing of nosocomial infections. Benjamin Obrien MD
--- NOTE | 2016-12-05 13:56 | CP.PCM.PN ---
Subjective - Date & Time of Evaluation Date of Evaluation: 12/05/16 Time of Evaluation: 10:35 - Subjective Subjective: seen and examined at the bedside earlier today, patient wasn't PT gym. No reports of acute overnight events. Patient moving bowel movements, denies diarrhea, no melena or bright red blood per rectum. Stool for C. difficile negative. Denies nausea, vomiting, or abdominal pain. Objective - Vital Signs/Intake and Output Vital Signs (last 24 hours): Temp Pulse Resp BP Pulse Ox 98.4 F 85 18 133/68 94 L 12/05/16 06:00 12/05/16 09:59 12/05/16 06:00 12/05/16 10:00 12/05/16 06:00 Intake and Output: 12/05/16 12/05/16 06:59 18:59 Intake Total 480 Output Total 650 Balance -170 - Medications Medications: Current Medications Acetaminophen (Tylenol 325mg Tab) 650 mg PO Q4H PRN; Protocol PRN Reason: fever >100.5 Albuterol/Ipratropium (Duoneb 3 Mg/0.5 Mg (3 Ml) Ud) 3 ml IH Q3H PRN; Protocol PRN Reason: Shortness of Breath Enoxaparin Sodium (Lovenox) 100 mg SC 0600,1800 [facility] PRN Reason: Protocol Last Admin: 12/05/16 05:54 Dose: 100 mg Furosemide (Lasix) 40 mg PO BID [facility] PRN Reason: Protocol Last Admin: 12/05/16 10:00 Dose: 40 mg Glipizide (Glucotrol) 10 mg PO 0700,1700 [facility] Last Admin: 12/05/16 08:03 Dose: 10 mg Hydralazine HCl (Apresoline) 50 mg PO BID [facility] PRN Reason: Protocol Last Admin: 12/05/16 09:59 Dose: 50 mg Isosorbide Mononitrate (Imdur) 60 mg PO 0600 [facility] PRN Reason: Protocol Last Admin: 12/05/16 05:54 Dose: 60 mg Metoprolol Tartrate (Lopressor) 25 mg PO 0800,1700 [facility] PRN Reason: Protocol Last Admin: 12/05/16 08:03 Dose: 25 mg Nicotine (Nicoderm Cq) 1 patch TD DAILY [facility] PRN Reason: Protocol Last Admin: 12/05/16 09:58 Dose: 1 patch Nystatin (Nystop Topical Powder) 0 gm TOP BID [facility] PRN Reason: Protocol Last Admin: 12/05/16 09:58 Dose: 1 appl Ondansetron HCl (Zofran Inj) 4 mg IVP Q4H PRN; Protocol PRN Reason: Nausea/Vomiting Oxycodone/Acetaminophen (Percocet 5/325 Mg Tab) 1 tab PO Q4H PRN; Protocol PRN Reason: Pain, moderate (4-7) Stop: 12/06/16 12:22 Last Admin: 12/04/16 21:56 Dose: 1 tab Oxycodone/Acetaminophen (Percocet 5/325 Mg Tab) 2 tab PO Q4H PRN; Protocol PRN Reason: Pain, severe (8-10) Stop: 12/06/16 12:23 Pantoprazole Sodium (Protonix Ec Tab) 40 mg PO 0600 [facility] PRN Reason: Protocol Last Admin: 12/05/16 05:56 Dose: 40 mg Potassium Chloride (K-Dur 20 Meq Er Tab) 20 meq PO 0800 [facility] PRN Reason: Protocol Last Admin: 12/05/16 08:03 Dose: 20 meq Sitagliptin Phosphate (Januvia) 50 mg PO DAILY [facility] Last Admin: 12/05/16 09:57 Dose: 50 mg Spironolactone (Aldactone) 25 mg PO DAILY [facility] PRN Reason: Protocol Last Admin: 12/05/16 09:59 Dose: 25 mg Valsartan (Diovan) 320 mg PO DAILY [facility] PRN Reason: Protocol Last Admin: 12/05/16 10:00 Dose: 320 mg Warfarin Sodium (Coumadin) 7.5 mg PO 1800 [facility] Last Admin: 12/04/16 17:48 Dose: 7.5 mg Zolpidem Tartrate (Ambien) 5 mg PO HS PRN; Protocol PRN Reason: Insomnia - Labs Labs: 12/02/16 07:30 12/02/16 07:30 PT 14.0 Seconds (9.9-11.8) H 12/05/16 06:30 INR 1.30 (0.93-1.08) H 12/05/16 06:30 - Constitutional Appears: No Acute Distress - Head Exam Head Exam: NORMOCEPHALIC - Eye Exam Eye Exam: Normal appearance. absent: Scleral icterus - ENT Exam ENT Exam: Mucous Membranes Moist - Neck Exam Neck Exam: Normal Inspection - Respiratory Exam Respiratory Exam: NORMAL BREATHING PATTERN. absent: Respiratory Distress - Cardiovascular Exam Cardiovascular Exam: +S1, +S2 - GI/Abdominal Exam GI & Abdominal Exam: Soft, Normal Bowel Sounds. absent: Guarding, Tenderness, Rebound - Extremities Exam Extremities Exam: Normal Capillary Refill, Pedal Edema. absent: Calf Tenderness - Neurological Exam Neurological Exam: Alert, Awake, Oriented x3 - Skin Skin Exam: Dry, Warm Assessment and Plan - Assessment and Plan (Free Text) Assessment: Assessment: Left toe gangrenous, status post amputation Anemia ,s/p blood transfusion History of duodenal angiodysplasia History of multiple colonic polyps History of portal hypertension Peripheral arterial disease Atrial fibrillation CHF COPD Chronic kidney disease Plan: monitor CBC Continue PPI on Lovenox and Coumadin Patient does have high risk for endoscopy procedure in the past, continue to monitor H&H if showed marked downward trend then consider repeating the endoscopy. Seen and discussed with Dr. Hamilton.
[2016-12-05] MEDS: Oxycodone/Acetaminophen 5/325 mg Tab PO PRN (16:19)
--- NOTE | 2016-12-05 17:11 | PN ---
DATE: 12/05/2016 LOCATION: The patient is in room 302, bed 1. REASON FOR CONSULTATION: Follow up aortic stenosis, status post amputation of big toe, peripheral vascular disease, coronary artery disease, and atrial fibrillation. SUBJECTIVE: The patient is sitting in chair without any cardiac symptoms like chest pain, shortness of breath or palpitation. PHYSICAL EXAMINATION: VITAL SIGNS: Blood pressure is 133/60, respirations 18, pulse 85, and temperature 98.4. HEENT: Head is normocephalic. Eyes: Pupils are normal. Conjunctivae slightly pale. NECK: JVP low. Carotids are equal. THORAX: AP diameter is normal. LUNGS: Clear. CARDIOVASCULAR: S1 and S2. Systolic murmur. No rub. ABDOMEN: Protuberant. No organomegaly. EXTREMITIES: As mentioned, amputation of the big toe on the foot. LABORATORY DATA: WBC 5.5, hemoglobin 9.2, hematocrit 29.7, platelets 235, and sugar 187. DIAGNOSES: Peripheral vascular disease, status post amputation of big toe on the left foot; one-vessel coronary artery disease. The right coronary artery which was very well collateralized from the left anterior and descending coronary artery, moderate aortic stenosis, chronic atrial fibrillation, diabetes, hypertension, hyperlipidemia, and obesity. PLAN: Today's prothrombin time is 14.0, INR 1.30. The patient is getting warfarin 7.5 mg p.o. daily, spironolactone 25 daily, hydralazine 50 b.i.d., Diovan 320 daily, glipizide 10 mg b.i.d., isosorbide mononitrate 60 daily, Januvia 50 mg p.o. daily, furosemide 40 b.i.d., metoprolol tartrate 25 b.i.d., Lovenox 100 mg subcu b.i.d., Protonix 40 daily. Continue the therapy. We will follow PT/INR. We will follow. Brianna Deng MD
--- NOTE | 2016-12-06 01:06 | PN ---
DATE: SUBJECTIVE: The patient is 71 years old, seen and examined, sitting in chair seems to be comfortable. No fever. No chills. No nausea or vomiting. No diarrhea. Eating and tolerating. PHYSICAL EXAMINATION: VITAL SIGNS: She is afebrile, pulse 81, respirations 18, and blood pressure 130/60. LUNGS: Bilateral fair air flow. No rhonchi or crackles. There are decreased breath sounds. HEART: S1 and S2 audible. ABDOMEN: Soft and nontender. No rebound. No guarding. NEUROLOGIC: The patient is awake and alert, able to communicate. Moves all extremities. Status post left big toe amputation. LABORATORY DATA: PT is 14 and INR is 1.30. Chemistry blood sugar is 187. ASSESSMENT: 1. Status post left big toe gangrene, status post amputation. 2. Hypertension. 3. Pulmonary hypertension. 4. Non-insulin dependent diabetes. 5. Severe peripheral vascular disease, status post angioplasty. 6. Coronary artery disease with total right coronary artery occlusion. 7. Aortic stenosis. 8. Chronic atrial fibrillation. PLAN: Currently, she finished her course of antibiotics. Blood sugar is being monitored. Wound care has been done by the podiatry team. Monitor the blood sugar. Continue physical therapy. Discharge plan for Thursday. Edwige Kirby MD
[2016-12-06] MEDS: Pantoprazole 40 mg EC Tab PO SCH (06:18)
[2016-12-06] MEDS: Enoxaparin 100 mg Syringe SC SCH ×2 (06:18→18:09)
[2016-12-06] MEDS: Potassium Chloride 20 mEq ER Tab PO SCH (08:07)
--- NOTE | 2016-12-06 08:43 | CP.PCM.PN ---
<Luci Hatch - Last Filed: 12/06/16 08:40> Subjective - Date & Time of Evaluation Date of Evaluation: 12/06/16 Time of Evaluation: 08:00 - Subjective Subjective: Podiatry Progress Note - Dr. Henriquez 70 year old female patient seen at bedside with attending, Dr. Henriquez. Patient seen sleeping comfortably. No acute events overnight. Objective - Vital Signs/Intake and Output Vital Signs (last 24 hours): Temp Pulse Resp BP Pulse Ox 97.7 F 83 20 136/76 92 L 12/06/16 06:00 12/06/16 08:08 12/06/16 06:00 12/06/16 08:08 12/06/16 06:00 - Medications Medications: Current Medications Acetaminophen (Tylenol 325mg Tab) 650 mg PO Q4H PRN; Protocol PRN Reason: fever >100.5 Albuterol/Ipratropium (Duoneb 3 Mg/0.5 Mg (3 Ml) Ud) 3 ml IH Q3H PRN; Protocol PRN Reason: Shortness of Breath Enoxaparin Sodium (Lovenox) 100 mg SC 0600,1800 [facility] PRN Reason: Protocol Last Admin: 12/06/16 06:18 Dose: 100 mg Furosemide (Lasix) 40 mg PO BID [facility] PRN Reason: Protocol Last Admin: 12/05/16 17:54 Dose: 40 mg Glipizide (Glucotrol) 10 mg PO 0700,1700 [facility] Last Admin: 12/06/16 08:07 Dose: 10 mg Hydralazine HCl (Apresoline) 50 mg PO BID [facility] PRN Reason: Protocol Last Admin: 12/05/16 17:55 Dose: 50 mg Isosorbide Mononitrate (Imdur) 60 mg PO 0600 [facility] PRN Reason: Protocol Last Admin: 12/06/16 06:18 Dose: 60 mg Metoprolol Tartrate (Lopressor) 25 mg PO 0800,1700 [facility] PRN Reason: Protocol Last Admin: 12/06/16 08:08 Dose: 25 mg Nicotine (Nicoderm Cq) 1 patch TD DAILY [facility] PRN Reason: Protocol Last Admin: 12/05/16 09:58 Dose: 1 patch Nystatin (Nystop Topical Powder) 0 gm TOP BID [facility] PRN Reason: Protocol Last Admin: 12/05/16 17:54 Dose: 1 appl Ondansetron HCl (Zofran Inj) 4 mg IVP Q4H PRN; Protocol PRN Reason: Nausea/Vomiting Oxycodone/Acetaminophen (Percocet 5/325 Mg Tab) 1 tab PO Q4H PRN; Protocol PRN Reason: Pain, moderate (4-7) Stop: 12/06/16 12:22 Last Admin: 12/05/16 16:19 Dose: 1 tab Oxycodone/Acetaminophen (Percocet 5/325 Mg Tab) 2 tab PO Q4H PRN; Protocol PRN Reason: Pain, severe (8-10) Stop: 12/06/16 12:23 Pantoprazole Sodium (Protonix Ec Tab) 40 mg PO 0600 [facility] PRN Reason: Protocol Last Admin: 12/06/16 06:18 Dose: 40 mg Potassium Chloride (K-Dur 20 Meq Er Tab) 20 meq PO 0800 [facility] PRN Reason: Protocol Last Admin: 12/06/16 08:07 Dose: 20 meq Sitagliptin Phosphate (Januvia) 50 mg PO DAILY [facility] Last Admin: 12/05/16 09:57 Dose: 50 mg Spironolactone (Aldactone) 25 mg PO DAILY [facility] PRN Reason: Protocol Last Admin: 12/05/16 09:59 Dose: 25 mg Valsartan (Diovan) 320 mg PO DAILY [facility] PRN Reason: Protocol Last Admin: 12/05/16 10:00 Dose: 320 mg Warfarin Sodium (Coumadin) 7.5 mg PO 1800 [facility] Last Admin: 12/05/16 17:52 Dose: 7.5 mg Warfarin Sodium (Coumadin) 2.5 mg PO 1800 [facility] PRN Reason: Protocol Last Admin: 12/05/16 17:52 Dose: 2.5 mg Zolpidem Tartrate (Ambien) 5 mg PO HS PRN; Protocol PRN Reason: Insomnia Last Admin: 12/05/16 23:54 Dose: 5 mg - Labs Labs: 12/02/16 07:30 12/02/16 07:30 PT 14.0 Seconds (9.9-11.8) H 12/05/16 06:30 INR 1.30 (0.93-1.08) H 12/05/16 06:30 - Constitutional Appears: Well, Non-toxic, No Acute Distress - Extremities Exam Additional comments: Dressing to LLE appears clean, dry, intact with no strikethrough noted. - Neurological Exam Neurological Exam: Alert, Awake, Oriented x3 - Psychiatric Exam Psychiatric exam: Normal Affect, Normal Mood Assessment and Plan - Assessment and Plan (Free Text) Assessment: 71 y/o female seen at bedside 9 days s/p left hallux amputation (DOS: 11/27/16) Plan: Patient seen and evaluated at bedside with attending, Dr. Henriquez Chart, vitals, labs reviewed = afebrile C.diff antigen and toxin = negative Dressing to left foot to be changed Thursday, 12/08 Patient to ambulate with forefoot offloading shoe and work with PT Podiatry will continue to follow while in house <Deric Henriquez - Last Filed: 12/06/16 13:42> Objective - Vital Signs/Intake and Output Vital Signs (last 24 hours): Temp Pulse Resp BP Pulse Ox 98.3 F 84 20 157/57 H 92 L 12/06/16 10:12 12/06/16 10:20 12/06/16 10:12 12/06/16 10:21 12/06/16 10:12 - Medications Medications: Current Medications Acetaminophen (Tylenol 325mg Tab) 650 mg PO Q4H PRN; Protocol PRN Reason: fever >100.5 Albuterol/Ipratropium (Duoneb 3 Mg/0.5 Mg (3 Ml) Ud) 3 ml IH Q3H PRN; Protocol PRN Reason: Shortness of Breath Enoxaparin Sodium (Lovenox) 100 mg SC 0600,1800 [facility] PRN Reason: Protocol Last Admin: 12/06/16 06:18 Dose: 100 mg Furosemide (Lasix) 40 mg PO BID [facility] PRN Reason: Protocol Last Admin: 12/06/16 10:21 Dose: 40 mg Glipizide (Glucotrol) 10 mg PO 0700,1700 [facility] Last Admin: 12/06/16 08:07 Dose: 10 mg Hydralazine HCl (Apresoline) 50 mg PO BID [facility] PRN Reason: Protocol Last Admin: 12/06/16 10:20 Dose: 50 mg Isosorbide Mononitrate (Imdur) 60 mg PO 0600 [facility] PRN Reason: Protocol Last Admin: 12/06/16 06:18 Dose: 60 mg Metoprolol Tartrate (Lopressor) 25 mg PO 0800,1700 [facility] PRN Reason: Protocol Last Admin: 12/06/16 08:08 Dose: 25 mg Nicotine (Nicoderm Cq) 1 patch TD DAILY [facility] PRN Reason: Protocol Last Admin: 12/06/16 10:21 Dose: 1 patch Nystatin (Nystop Topical Powder) 0 gm TOP BID [facility] PRN Reason: Protocol Last Admin: 12/06/16 10:21 Dose: 1 appl Ondansetron HCl (Zofran Inj) 4 mg IVP Q4H PRN; Protocol PRN Reason: Nausea/Vomiting Pantoprazole Sodium (Protonix Ec Tab) 40 mg PO 0600 [facility] PRN Reason: Protocol Last Admin: 12/06/16 06:18 Dose: 40 mg Potassium Chloride (K-Dur 20 Meq Er Tab) 20 meq PO 0800 [facility] PRN Reason: Protocol Last Admin: 12/06/16 08:07 Dose: 20 meq Sitagliptin Phosphate (Januvia) 50 mg PO DAILY [facility] Last Admin: 12/06/16 10:21 Dose: 50 mg Spironolactone (Aldactone) 25 mg PO DAILY [facility] PRN Reason: Protocol Last Admin: 12/06/16 10:20 Dose: 25 mg Valsartan (Diovan) 320 mg PO DAILY [facility] PRN Reason: Protocol Last Admin: 12/06/16 10:21 Dose: 320 mg Warfarin Sodium (Coumadin) 7.5 mg PO 1800 [facility] Last Admin: 12/05/16 17:52 Dose: 7.5 mg Zolpidem Tartrate (Ambien) 5 mg PO HS PRN; Protocol PRN Reason: Insomnia Last Admin: 12/05/16 23:54 Dose: 5 mg - Labs Labs: 12/06/16 09:55 12/02/16 07:30 PT 16.7 Seconds (9.9-11.8) H 12/06/16 09:55 INR 1.55 (0.93-1.08) H 12/06/16 09:55 Attending/Attestation - Attestation I have personally seen and examined this patient.: Yes I have fully participated in the care of the patient.: Yes I have reviewed all pertinent clinical information, including history, physical exam and plan: Yes
[2016-12-06 10:06] LABS: BASO # 0.02 K/mm3 (0.0-2.0); BASO % 0.4 % (0.0-3.0); EOS # 0.3 (0.0-0.7); EOS % 5.4 % (1.5-5.0); GRAN # 3.44 (1.4-6.5); GRAN % 63.6 % (50.0-68.0); HEMATOCRIT 31.8 % (36.0-48.0); LYMPH # 1.2 (1.2-3.4); LYMPH % 21.7 % (22.0-35.0); MEAN CELL VOLUME 92.2 fl (80.0-105.0); MEAN CORPUSCULAR HEMOGLOBIN 28.1 pg (25.0-35.0); MEAN CORPUSCULAR HGB CONC 30.5 g/dl (31.0-37.0); MEAN PLATELET VOLUME 9.5 fl (7.0-11.0); MONO # 0.5 (0.1-0.6); MONO % 8.9 % (1.0-6.0); RED CELL DISTRIBUTION WIDTH 17.2 % (11.5-14.5); WHITE BLOOD COUNT 5.4 10^3/ul (4.5-11.0)
[2016-12-06 10:11] LABS: INR 1.55 (0.93-1.08)
[2016-12-06] MEDS: Nystatin 100,000 Units/gm Topical Pow(15 gm) TOP SCH ×2 (10:21→18:09)
[2016-12-06] MEDS ORDERED: Permethrin 5% Cream(60 gm) TOP ONE (11:41)
[2016-12-06] MEDS ORDERED: LINDANE 1% TOP ONE (11:41)
--- NOTE | 2016-12-06 12:13 | PN ---
DATE: 12/06/2016 SUBJECTIVE: Mrs. Esther Baxter with seen earlier this morning in 302. The patient has no fevers and chills. PHYSICAL EXAMINATION: VITAL SIGNS: Temperature is 98, blood pressure is 130/60, and respiratory rate of 16. HEENT: Unremarkable. NECK: Supple. LUNGS: Decreased breath sounds. HEART: Normal S1 and S2. ABDOMEN: Soft. LABORATORY DATA: Reveals a white count of 5.5. Chemistries are noted and review of orders reveals the patient to be off of antibiotics. ASSESSMENT AND PLAN: This is a 71-year-old with left hallux gangrene and foot gangrene Pseudomonas and Citrobacter status post amputation postprocedure day #9. Bone margins are clear of any inflammation on pathology. The patient has completed the antibiotics and a history of sepsis with a urinary tract infection, and cellulitis of left foot. Currently, now off of antibiotics afebrile local wound care. The patient at risk for developing of nosocomial infections. Benjamin Obrien MD
--- NOTE | 2016-12-06 17:12 | PN ---
DATE: 12/06/2016 REASON FOR CONSULTATION: Followup cardiac evaluation, followup in transitional care unit for the continuity of care, history of coronary artery disease, history of PAD, status post amputation of big toe, atrial fibrillation and aortic stenosis. SUBJECTIVE: The patient denies any chest pain, shortness of breath, or any palpitation. PHYSICAL EXAMINATION GENERAL: Lying flat on the bed, not in apparent distress. VITAL SIGNS: Temperature afebrile, heart rate 84, and blood pressure 157/57. HEENT: PERRLA. Extraocular muscles intact. NECK: Supple. No carotid bruit. No thyromegaly. CHEST: Clear to auscultation. HEART: S1 and S2 regular. ABDOMEN: Soft. EXTREMITIES: Clubbing and cyanosis negative. LABORATORY DATA: Blood workup as follows: WBC 5.5, hemoglobin 9.3, hematocrit 31.8, platelet count 227. Chemistries shows sodium 141, potassium 3.6, chloride 94, carbon dioxide 39, anion gap 12, BUN 17, and creatinine 0.7. IMPRESSION: A 71-year-old morbidly obese female with past medical history of diabetes, hypertension, hyperlipidemia, chronic obstructive pulmonary disease, active tobacco abuse, peripheral vascular disease status post amputation of the toe, one-vessel coronary artery disease, admitted with gangrene status post amputation, now in the transitional care unit for the continuity of care. Now, INR is 1.55. RECOMMENDATIONS: Increase Coumadin to 7.5. Follow up PT/INR tomorrow. We will check her INR tomorrow. Apparently, it looks like the patient is getting 10 mg of Coumadin, we will cut down the Coumadin to 5 mg and follow up PT/INR in the morning. Brianna Sandra MD
--- NOTE | 2016-12-07 01:54 | PN ---
DATE: SUBJECTIVE: The patient is 71 years old seen and examined, she is sitting in chair, she is very upset. She was found to have lice infestation in her head. She does not know where she got from. She said she got from [facility]. She is going to be treated with Lindane shampoo application. She also will receive permethrin body lotion for tonight, it will be washed in the morning. PHYSICAL EXAMINATION GENERAL: She is awake, alert, and communicative. VITAL SIGNS: She is afebrile, pulse 99, respirations 18, and blood pressure 136/84. LUNGS: Bilateral fair air flow. No rhonchi or crackle. HEART: S1 and S2 audible. ABDOMEN: Soft, nontender, no rebound, and obese. No hepatosplenomegaly. NEUROLOGIC: She is awake and alert, communicative. LABORATORY DATA: WBC 5.4, hemoglobin 9.7, hematocrit 31.8, and platelets of 227. PT 16.7 and INR 1.55. Chemistry; blood sugar is 110. ASSESSMENT: Left big toe gangrene status post amputation, lice infestation, coronary artery disease, pulmonary hypertension, congestive gastropathy, peptic ulcer disease, gastrointestinal arteriovenous malformation. PLAN: She will get Lindane shampoo and permethrin body lotion for tonight. She will continue on current medication. We will follow up her PT/INR. Edwige Kirby MD
[2016-12-07] MEDS: Enoxaparin 100 mg Syringe SC SCH (06:14)
[2016-12-07] MEDS: Pantoprazole 40 mg EC Tab PO SCH (06:14)
[2016-12-07 06:51] LABS: INR 1.84 (0.93-1.08)
[2016-12-07] MEDS: Potassium Chloride 20 mEq ER Tab PO SCH (08:28)
[2016-12-07 10:24] VITALS: BP 108/77; PULSE 82; RESP 18; TEMP 97.8; O2SAT 97
[2016-12-07] MEDS: Nystatin 100,000 Units/gm Topical Pow(15 gm) TOP SCH (10:24)
--- NOTE | 2016-12-07 11:27 | CP.PCM.PN ---
<Luci Hatch - Last Filed: 12/07/16 14:48> Subjective - Date & Time of Evaluation Date of Evaluation: 12/07/16 Time of Evaluation: 11:26 - Subjective Subjective: Podiatry Progress Note - Dr. Hoffman 71 year old female patient seen at bedside POD#10 left hallux amputation. Patient seen out of bed and in chair, AAOx3 and NAD. Patient denies acute events overnight. Patient denies any pain to left foot at this visit. Patient states she no longer has diarrhea. Patient states she is to be discharged today , and is aware she is to follow up in the wound care clinic as an outpatient. Patient denies N/V/F/D/C/SOB/calf pain. No other pedal complaints at this time. Objective - Vital Signs/Intake and Output Vital Signs (last 24 hours): Temp Pulse Resp BP Pulse Ox 97.8 F 82 18 108/77 97 12/07/16 10:23 12/07/16 10:23 12/07/16 10:23 12/07/16 10:24 12/07/16 10:23 Intake and Output: 12/07/16 12/07/16 06:59 18:59 Intake Total 520 Balance 520 - Medications Medications: Current Medications Acetaminophen (Tylenol 325mg Tab) 650 mg PO Q4H PRN; Protocol PRN Reason: fever >100.5 Albuterol/Ipratropium (Duoneb 3 Mg/0.5 Mg (3 Ml) Ud) 3 ml IH Q3H PRN; Protocol PRN Reason: Shortness of Breath Enoxaparin Sodium (Lovenox) 100 mg SC 0600,1800 [facility] PRN Reason: Protocol Last Admin: 12/07/16 06:14 Dose: 100 mg Furosemide (Lasix) 40 mg PO BID [facility] PRN Reason: Protocol Last Admin: 12/07/16 10:24 Dose: 40 mg Glipizide (Glucotrol) 10 mg PO 0700,1700 [facility] Last Admin: 12/07/16 08:27 Dose: 10 mg Hydralazine HCl (Apresoline) 50 mg PO BID [facility] PRN Reason: Protocol Last Admin: 12/07/16 10:23 Dose: 50 mg Isosorbide Mononitrate (Imdur) 60 mg PO 0600 [facility] PRN Reason: Protocol Last Admin: 12/07/16 06:14 Dose: 60 mg Metoprolol Tartrate (Lopressor) 25 mg PO 0800,1700 [facility] PRN Reason: Protocol Last Admin: 12/07/16 08:28 Dose: 25 mg Nicotine (Nicoderm Cq) 1 patch TD DAILY [facility] PRN Reason: Protocol Last Admin: 12/07/16 10:24 Dose: 1 patch Nystatin (Nystop Topical Powder) 0 gm TOP BID [facility] PRN Reason: Protocol Last Admin: 12/07/16 10:24 Dose: 1 appl Ondansetron HCl (Zofran Inj) 4 mg IVP Q4H PRN; Protocol PRN Reason: Nausea/Vomiting Pantoprazole Sodium (Protonix Ec Tab) 40 mg PO 0600 [facility] PRN Reason: Protocol Last Admin: 12/07/16 06:14 Dose: 40 mg Potassium Chloride (K-Dur 20 Meq Er Tab) 20 meq PO 0800 [facility] PRN Reason: Protocol Last Admin: 12/07/16 08:28 Dose: 20 meq Sitagliptin Phosphate (Januvia) 50 mg PO DAILY [facility] Last Admin: 12/07/16 10:24 Dose: 50 mg Spironolactone (Aldactone) 25 mg PO DAILY [facility] PRN Reason: Protocol Last Admin: 12/07/16 10:23 Dose: 25 mg Valsartan (Diovan) 320 mg PO DAILY [facility] PRN Reason: Protocol Last Admin: 12/07/16 10:24 Dose: 320 mg Warfarin Sodium (Coumadin) 7.5 mg PO 1800 [facility] Last Admin: 12/06/16 18:08 Dose: 7.5 mg Zolpidem Tartrate (Ambien) 5 mg PO HS PRN; Protocol PRN Reason: Insomnia Last Admin: 12/05/16 23:54 Dose: 5 mg - Labs Labs: 12/06/16 09:55 12/02/16 07:30 PT 19.9 Seconds (9.9-11.8) H 12/07/16 06:30 INR 1.84 (0.93-1.08) H 12/07/16 06:30 - Constitutional Appears: Well, Non-toxic, No Acute Distress - Extremities Exam Additional comments: Dressing to LLE appears clean, dry, intact with no strikethrough noted. - Neurological Exam Neurological Exam: Alert, Awake, Oriented x3 - Psychiatric Exam Psychiatric exam: Normal Affect, Normal Mood Assessment and Plan - Assessment and Plan (Free Text) Assessment: 71 y/o female seen at bedside 10 days s/p left hallux amputation (DOS: 11/27/16) Plan: Patient seen and evaluated at bedside Discussed with attending, Dr. Hoffman Chart, vitals, labs reviewed = afebrile Dressing to left foot to be changed as outpatient in wound care clinic this week , Thursday-Thursday, with Drs. Hoffman/Martinez Patient to ambulate with forefoot offloading shoe and work with PT Podiatry will continue to follow while in house <Nikia Hoffman - Last Filed: 12/21/16 14:25> Objective - Vital Signs/Intake and Output Vital Signs (last 24 hours): Temp Pulse Resp BP Pulse Ox 97.8 F 82 18 108/77 97 12/07/16 10:23 12/07/16 10:23 12/07/16 10:23 12/07/16 10:24 12/07/16 10:23 - Labs Labs: 12/06/16 09:55 12/02/16 07:30 PT 19.9 Seconds (9.9-11.8) H 12/07/16 06:30 INR 1.84 (0.93-1.08) H 12/07/16 06:30 Attending/Attestation - Attestation I have personally seen and examined this patient.: Yes I have fully participated in the care of the patient.: Yes I have reviewed all pertinent clinical information, including history, physical exam and plan: Yes
--- NOTE | 2016-12-07 12:34 | PN ---
DATE: 12/07/2016 SUBJECTIVE: The patient is in bed, in no acute distress, nontoxic. PHYSICAL EXAMINATION: VITAL SIGNS: Temperature is 97, blood pressure is 108/70, and respiratory rate of 18, and heart rate of 81. HEENT: Unremarkable. NECK: Supple. LUNGS: Decreased breath sounds. HEART: Normal S1 and S2. ABDOMEN: Soft and nontender. LABORATORY EXAMINATION: Reveals a white count of 5.4 and chemistries reveals the patient creatinine is at 0.8. Review of orders. Reveals the patient to have on no antibiotics. ASSESSMENT AND PLAN: This is a 71-year-old with left hallux gangrene and left foot gangrene Pseudomonas and Citrobacter status post amputation postprocedure day #10. Bone margins are clear of any inflammation on pathology. I completed antibiotics therapy. The patient has a history of sepsis with a urinary tract infection, and cellulitis of left foot. Currently off of antibiotics, afebrile. The patient is at risk for developing of nosocomial infections. Benjamin Obrien MD
--- NOTE | 2016-12-07 14:18 | PN ---
DATE: 12/07/2016 REASON FOR CONSULTATION: Followup cardiac evaluation, PAD, CAD, chronic atrial fibrillation, aortic stenosis, status post amputation of the left toe. SUBJECTIVE: Denies any chest pain, shortness of breath, or any palpitation. OBJECTIVE: GENERAL: Sitting in tianna chair, not in apparent distress. Examination as follows: VITAL SIGNS: Temperature afebrile, heart rate 86, and blood pressure 108/77. HEENT: PERRLA. Extraocular muscles intact. NECK: Supple. No carotid bruit. No thyromegaly. CHEST: Clear to auscultation. HEART: S1 and S2 regular. ABDOMEN: Soft. EXTREMITIES: Clubbing and cyanosis negative. LABORATORY DATA: Blood workup as follows: WBC 5.5, hemoglobin 9.3, hematocrit 31.8, platelet count 227. As of yesterday, chemistry shows sodium 141, potassium 3.6, chloride 96, carbon dioxide 39, anion gap 12, BUN 17, and creatinine 0.8. IMPRESSION: A 71-year-old female, morbidly obese, chronic atrial fibrillation, coronary artery disease one vessel, moderate aortic stenosis, peripheral arterial disease, active tobacco abuse, chronic obstructive pulmonary disease, history of chronic atrial fibrillation, admitted with left toe gangrene, status post amputation, now in transitional care unit for the continuity of care, getting rehab. INR today is 1.84. RECOMMENDATIONS: Continue Coumadin 7.5 mg. Follow up INR level. Continue spironolactone. Continue hydralazine. Continue Lasix. We will discontinue Lovenox. INR is almost therapeutic, by tonight would be therapeutic, we will discontinue after tonight's dose. We will follow up PT/INR in the morning. We will check PT/INR and CBC in the morning with electrolytes. Brianna Sandra MD
--- NOTE | 2016-12-07 20:41 | PN ---
SUBJECTIVE: This patient was seen and evaluated earlier, on isolation now. No bleeding per rectum. Tolerating the diet. PHYSICAL EXAMINATION VITAL SIGNS: Afebrile, blood pressure 157/57, heart rate 84. HEENT: Atraumatic. Anicteric. NECK: Supple. HEART: S1 and S2 heard. LUNGS: Bilateral air entry present. ABDOMEN: Soft. No tenderness. LABORATORY DATA: Today's INR is 1.84. Hemoglobin yesterday was stable at 9.7. ASSESSMENT AND PLAN: This 71-year-old patient is on isolation in transitional care because of the life infection and the patient is status post amputation and history of coronary artery disease, pulmonary hypertension, congestive heart failure, history of gastric antral vascular ectasia. 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 History of multiple colonic polyps in the past, history of anemia, history of atrial fibrillation. Hemoglobin has been stable. We will continue the patient back on antibiotics and we will continue to closely follow up the care. No plan for an endoscopy now. The patient has been morbidly obese, high risk for endoscopic procedure. The patient would consider only if there is an active bleeding or significant amount of blood loss and it is reasonable to maintain the patient on a long-term iron supplements and close follow up of the hemoglobin and hematocrit. Thank you very much for allowing us to participate in the care of the patient. Rahel Hamilton MD
--- NOTE | 2016-12-08 14:28 | DS ---
HISTORY OF PRESENT ILLNESS: The patient is 71 years old known to me from multiple previous admissions, came to emergency room because of increasing pain and gangrenous changing in her left foot was found to have osteomyelitis, underwent left big toe amputation, has been on antibiotics and wound care was in TCU, stable, uneventful, has been completing her course of antibiotic. PHYSICAL EXAMINATION: GENERAL: Today, she is awake and alert, communicative. VITAL SIGNS: She is afebrile, pulse 82, respirations 18 and blood pressure 108/77. LUNGS: Bilateral fair air flow. Diffusely decreased breath sound. HEART: S1 and S2 audible. ABDOMEN: Soft and nontender. No rebound. No guarding. NEUROLOGIC: The patient is awake and alert, communicative, ambulates with a walker. LABORATORY DATA: Blood sugar is 103. PT 19.9 and INR 1.84. ASSESSMENT: 1. Coronary artery disease with right coronary artery occlusion with good collaterals. 2. Pulmonary hypertension. 3. Congestive heart failure, stable. 4. Congestive gastropathy. 5. Gastrointestinal arteriovenous malformation. 6. Non-insulin dependent diabetes. 7. Morbid obesity. 8. Peripheral vascular disease, status post angioplasty, status post left big toe amputation. 9. Recent lice infestation. The patient was treated with Chan shampoo and permethrin body wash. PLAN: The patient is being discharge home today. Her discharge medications are as follows. She is on nadolol 20 mg daily. She is on Xopenex. She is getting Lasix 40 twice a day and aspirin 81 daily. She is on Coumadin 5 mg daily, Xanax 0.25 at bedtime and hydralazine 50 mg twice a day. She is on valsartan 320 daily, Spiriva 18 mcg daily, spironolactone 25 daily, Januvia 100 mg daily, Protonix 40 daily, isosorbide 30 mg daily and glipizide 10 mg twice a day. She will followup in office next week to check PT/INR.. Edwige Kirby MD
--- NOTE | 2016-12-13 05:35 | CON ---
ORTHOPEDIC CONSULT HISTORY OF PRESENT ILLNESS: The patient is a 71-year-old female who came into the emergency room today which is 12/12/2016, this morning after falling at home yesterday, 12/11/2016 and inflicting injury to her left knee. X-rays in our ER showed a highly comminuted distal femur fracture just above the total knee that was done about 10 to 15 years ago from history. Further x-ray show that the comminution is too severe confirmed by a CAT scan due to a retrograde carolyn, so she will need a total hip surgeon to do a revision of the total knee with a fixation of the fracture with sophisticated implants that we do not have at [facility] and that is a highly skilled surgeon for these massive trauma cases to do reconstruction here would not be advisable, as he has a whole team of residents and fellows with him at another facility. So, I would like to transfer her to the facility that he is at tomorrow, and I will speak with Dr. Kirby to inform her, the family also requested that go in the hands of a super specialist for this periprosthetic fracture that has much more experience than I do. FINAL DIAGNOSIS: Highly comminuted, unstable peritrochanteric fracture of distal femur above the total knee with massive comminution. It should be in the hands of a highly skilled trauma-prosthetic surgeon. I will try to do that transfer tomorrow morning as she gets a control of herself, and we put her in a knee immobilizer for now and she has good circulation, but she does have peripheral vascular disease and she was a heavy smoker for several years. Tony Arnett DO
== END 2016-12-07 16:15 | disposition home or self-care (01) | DRG 300 ==
LOC: TRCU 21:24
PROVIDERS: ADMIT Internal Medicine Nephrology; ATTEND Internal Medicine
PROC: F07Z9FZ Gait Training/Functional Ambulation Treatment using Assistive, Adaptive, Supportive or Protective Equipment (ICD-10-PCS; principal; 2016-11-30)
PROC: F08Z4FZ Home Management Treatment using Assistive, Adaptive, Supportive or Protective Equipment (ICD-10-PCS; 2016-12-02)
DX: E11.52 Type 2 diabetes mellitus with diabetic peripheral angiopathy with gangrene (principal); Z79.2 Long term (current) use of antibiotics; Z89.412 Acquired absence of left great toe; I13.0 Hypertensive heart and chronic kidney disease with heart failure and stage 1 through stage 4 chronic kidney disease, or unspecified chronic kidney disease; N17.9 Acute kidney failure, unspecified; E11.22 Type 2 diabetes mellitus with diabetic chronic kidney disease; K76.6 Portal hypertension; I27.2 Other secondary pulmonary hypertension; I50.9 Heart failure, unspecified; I48.2 Chronic atrial fibrillation; K74.69 Other cirrhosis of liver; B85.2 Pediculosis, unspecified; L03.116 Cellulitis of left lower limb; Z68.41 Body mass index [BMI] 40.0-44.9, adult; N18.9 Chronic kidney disease, unspecified; D64.9 Anemia, unspecified; K21.9 Gastro-esophageal reflux disease without esophagitis; I25.10 Atherosclerotic heart disease of native coronary artery without angina pectoris; E78.5 Hyperlipidemia, unspecified; I35.0 Nonrheumatic aortic (valve) stenosis; E87.6 Hypokalemia; J44.9 Chronic obstructive pulmonary disease, unspecified; K31.89 Other diseases of stomach and duodenum; E66.01 Morbid (severe) obesity due to excess calories; K31.819 Angiodysplasia of stomach and duodenum without bleeding; F17.210 Nicotine dependence, cigarettes, uncomplicated; E78.00 Pure hypercholesterolemia, unspecified; Z85.3 Personal history of malignant neoplasm of breast; Z79.84 Long term (current) use of oral hypoglycemic drugs; Z86.14 Personal history of Methicillin resistant Staphylococcus aureus infection; Z87.01 Personal history of pneumonia (recurrent); Z96.653 Presence of artificial knee joint, bilateral; Z86.010 Personal history of colon polyps; Z87.440 Personal history of urinary (tract) infections

== ENCOUNTER 2016-12-12 13:17 | Inpatient (IN) | payer MEDICARE ==
[2016-12-12 13:51] VITALS: BMI 39.3
--- NOTE | 2016-12-12 14:03 | ED PDOC ---
Arrival/HPI - General Chief Complaint: Lower Extremity Problem/Injury Time Seen by Provider: 12/12/16 13:37 Historian: Patient - History of Present Illness Narrative History of Present Illness (Text): 12/12/16 14:00 Esther Baxter is a 71 year old female, whose past medical history includes diabetes , COPD, hyperlipidemia, CHF, anemia, CAD, renal failure and Afib, presents to the Emergency department complaining of left knee pain after a mechanical fall yesterday. Patient reports she tripped going into her house with her walker and ever since then has not been able to bend her knee. Patient denies hitting her head or loss of consciousness. No other complaints were made. PMD: Dr. Kirby Time/Duration: Prior to Arrival Symptom Onset: Sudden Symptom Course: Unchanged Activities at Onset: Light Modifying Factors (Text): pain on palpation of knee and trying to bend the knee Context: Home, Tripped Past Medical History - Provider Review Nursing Documentation Reviewed: Yes - Infectious Disease Hx of Infectious Diseases: None - Tetanus Immunization Tetanus Immunization: Unknown - Cardiac Hx Cardiac Disorders: Yes (Afib, baseline artifacts) Hx Congestive Heart Failure: Yes - Pulmonary Hx Respiratory Disorders: Yes Hx Chronic Obstructive Pulmonary Disease (COPD): Yes - Neurological Hx Neurological Disorder: No - HEENT Hx HEENT Disorder: No - Renal Hx Renal Disorder: Yes Hx Renal Failure: Yes - Endocrine/Metabolic Hx Endocrine Disorders: Yes Hx Diabetes Mellitus Type 2: Yes - Hematological/Oncological Hx Blood Disorders: Yes (sepsis) Hx Anemia: Yes (iron deficiency) Hx Cancer: Yes (left breast lumpectomy yrs ago) Hx Chemotherapy: Yes - Integumentary Hx Dermatological Disorder: No Other/Comment: ble +3 pitting edema dng to lle mult small scabs rle, left great toe necrotic/gangrene, bruise left lower abd, small mass left head no pain - Musculoskeletal/Rheumatological Hx Musculoskeletal Disorders: Yes Hx Falls: Yes - Gastrointestinal Hx Gastrointestinal Disorders: Yes Hx Diarrhea: Yes - Genitourinary/Gynecological Hx Genitourinary Disorders: No Hx Reproductive Disorders: No - Psychiatric Hx Psychophysiologic Disorder: Yes Hx Anxiety: Yes Hx Substance Use: No - Surgical History Hx Cardiac Catheterization: Yes Hx Joint Replacement: Yes (b/l knees) Hx Orthopedic Surgery: Yes - Anesthesia Hx Anesthesia Reactions: No Hx Malignant Hyperthermia: No - Suicidal Assessment Feels Threatened In Home Enviroment: No Family/Social History - Physician Review Nursing Documentation Reviewed: Yes Family/Social History: Unknown Family HX Smoking Status: Former Smoker Hx Alcohol Use: No Hx Substance Use: No Hx Substance Use Treatment: No Allergies/Home Meds Allergies/Adverse Reactions: Allergies No Known Allergies Allergy (Verified 11/29/16 22:09) Home Medications: Home Meds Medication Instructions Recorded Confirmed ALPRAZolam [Xanax] 0.25 mg PO HS 11/29/16 12/12/16 Acetaminophen [Tylenol 325mg tab] 325 mg PO PRN PRN 11/29/16 12/12/16 Aspirin [Ecotrin] 81 mg PO DAILY 11/29/16 12/12/16 Furosemide [Lasix] 40 mg PO BID 11/29/16 12/12/16 Insulin Lispro-LOW [humALOG LOW] See Protocol SQ ACHS 11/29/16 12/12/16 Levalbuterol [Xopenex] 1.25 mg IH Q6H PRN 11/29/16 12/12/16 Metoprolol Tartrate [Lopressor] 25 mg PO BID 11/29/16 12/12/16 Nicotine 21 mg/24 hr [Nicoderm Cq] 21 mg TD DAILY 11/29/16 12/12/16 guaiFENesin [Mucinex LA] 200 mg PO Q4H PRN 11/29/16 12/12/16 Review of Systems - Review of Systems Constitutional: absent: Fevers Respiratory: absent: SOB Cardiovascular: absent: Chest Pain Gastrointestinal: absent: Abdominal Pain Musculoskeletal: Other (left knee pain ) Neurological: absent: Headache Physical Exam Vital Signs Reviewed: Yes Vital Signs Temp Pulse Resp BP Pulse Ox 12/12/16 15:33 74 18 102/54 L 95 12/12/16 13:31 98.2 F 79 18 100/48 L 95 Temperature: Afebrile Blood Pressure: Hypotensive Pulse: Regular Respiratory Rate: Normal Appearance: Positive for: Well-Appearing, Non-Toxic, Comfortable Pain Distress: None Mental Status: Positive for: Alert and Oriented X 3 - Systems Exam Head: Present: Atraumatic, Normocephalic Pupils: Present: PERRL Extroacular Muscles: Present: EOMI Conjunctiva: Present: Normal Mouth: Present: Moist Mucous Membranes Respiratory/Chest: Present: Clear to Auscultation, Good Air Exchange. No: Respiratory Distress, Accessory Muscle Use Cardiovascular: Present: Regular Rate and Rhythm, Normal S1, S2. No: Murmurs Abdomen: Present: Normal Bowel Sounds. No: Tenderness, Distention, Peritoneal Signs Upper Extremity: Present: Normal Inspection. No: Cyanosis, Edema Lower Extremity: Present: NORMAL PULSES, Tenderness (Left knee and left side of hip), Swelling (Left knee), Neurovascularly Intact, Other (ankle and foot have normal range of motion. No pain. ). No: Edema, Deformity Neurological: Present: GCS=15, CN II-XII Intact, Speech Normal Skin: Present: Warm, Dry, Normal Color. No: Rashes Psychiatric: Present: Alert, Oriented x 3, Normal Insight, Normal Concentration Medical Decision Making ED Course and Treatment: 12/12/16 Impression: 71 year old female with tenderness and swelling on left knee. Tenderness to left hip. Differential Diagnosis included but are not limited to: Left Hip and Knee Pain r/o fx Plan: -- Labs -- Left hip x-ray -- Left knee x-ray -- Reassess and disposition Progress Notes: 12/12/16 15:42 Left Hip Xray IMPRESSION: Acute nondisplaced left intertrochanteric fracture. Left Knee Xray IMPRESSION: Acute comminuted displaced impacted fracture in the distal femur 12/12/16 15:[address] Kirby who will admit under her service. Case discussed with Dr. Miller who will evaluate the patient. 12/12/16 16:27 Dr. Miller came to evaluate patient and placed her in a knee immoblizer. He recommended a CT pelvis and CT knee that he will followup. He discussed his plan with Dr. Kirby. - Critical Care Critical Care Minutes: 30 minutes - Lab Interpretations Lab Results: 12/12/16 14:10 12/12/16 14:10 Lab Results 12/12/16 14:10: Sodium 142, Potassium 4.2, Chloride 107, Carbon Dioxide 25, Anion Gap 14, BUN 35 H, Creatinine 1.0, Est GFR ( Amer) > 60, Est GFR ( Non-Af Amer) 55, Random Glucose 135 H, Calcium 9.0, Magnesium 1.9 12/12/16 14:10: WBC 10.4 D, RBC 3.19 L, Hgb 9.2 L, Hct 29.2 L, MCV 91.5, MCH 28.8, MCHC 31.5, RDW 16.5 H, Plt Count 246, MPV 9.5, Gran % 77.0 H, Lymph % ( Auto) 11.3 L, [place] % (Auto) 8.7 H, Eos % (Auto) 2.7, Baso % (Auto) 0.3, Gran # 7.98 H, Lymph # 1.2, [place]wood # 0.9 H, Eos # 0.3, Baso # 0.03 I have reviewed the lab results: Yes - RAD Interpretation Radiology Orders: 12/12/16 13:58 Hip Left [HIP MIN 2V W/ PELVIS LT] [RAD] Stat KNEE LEFT 2 VIEWS (AP & LAT) [RAD] Stat 12/12/16 15:17 CHEST PORTABLE [RAD] Stat - Medication Orders Current Medication Orders: Discontinued Medications Acetaminophen (Tylenol 325mg Tab) 650 mg PO STAT STA Stop: 12/12/16 14:01 Last Admin: 12/12/16 14:06 Dose: 650 mg MAR Pain/Vitals Document 12/12/16 14:06 (Rec: 12/12/16 14:06 [id number]) Pain Reassessment Is This A Pain ReAssessment? Yes Sleep Is patient sleeping during reassessment? No Presence of Pain Presence of Pain Yes Sodium Chloride (Sodium Chloride 0.9%) 500 mls @ 999 mls/hr IV .Q31M STA Stop: 12/12/16 15:00 - Scribe Statement The provider has reviewed the documentation as recorded by the Martina Burton Provider Scribe Attestation: All medical record entries made by the Scribjanel were at my direction and personally dictated by me. I have reviewed the chart and agree that the record accurately reflects my personal performance of the history, physical exam, medical decision making, and the department course for this patient. I have also personally directed, reviewed, and agree with the discharge instructions and disposition. Disposition/Present on Arrival - Present on Arrival Any Indicators Present on Arrival: Yes History of DVT/PE: No History of Uncontrolled Diabetes: No Urinary Catheter: Yes (Purewick external catheter at night in bed) History of Decub. Ulcer: No History Surgical Site Infection Following: None - Disposition Have Diagnosis and Disposition been Completed?: Yes Diagnosis: Hip fracture, left, Knee fracture, left Disposition: HOSPITALIZED Disposition Time: 15:58 Patient Plan: Admission Patient Problems: Current Active Problems Problem Status Onset Hip fracture, left Acute Knee fracture, left Acute Condition: FAIR
[2016-12-12 14:17] LABS: BASO # 0.03 K/mm3 (0.0-2.0); BASO % 0.3 % (0.0-3.0); EOS # 0.3 (0.0-0.7); EOS % 2.7 % (1.5-5.0); GRAN # 7.98 (1.4-6.5); HEMATOCRIT 29.2 % (36.0-48.0); LYMPH # 1.2 (1.2-3.4); LYMPH % 11.3 % (22.0-35.0); MEAN CELL VOLUME 91.5 fl (80.0-105.0); MEAN CORPUSCULAR HEMOGLOBIN 28.8 pg (25.0-35.0); MEAN CORPUSCULAR HGB CONC 31.5 g/dl (31.0-37.0); MEAN PLATELET VOLUME 9.5 fl (7.0-11.0); MONO # 0.9 (0.1-0.6); MONO % 8.7 % (1.0-6.0); RED CELL DISTRIBUTION WIDTH 16.5 % (11.5-14.5); WHITE BLOOD COUNT 10.4 10^3/ul (4.5-11.0)
[2016-12-12 14:27] LABS: BLOOD UREA NITROGEN 35 mg/dL (7-21); CARBON DIOXIDE 25 mmol/L (21-33); CHLORIDE 107 mmol/L (98-107); GFR AFRICAN-AMERICAN > 60; GLUCOSE,RANDOM 135 mg/dL (70-110); MAGNESIUM 1.9 mg/dL (1.7-2.2); POTASSIUM 4.2 mmol/L (3.6-5.0); SODIUM 142 mmol/L (132-148)
[2016-12-12] MEDS ORDERED: Sodium Chloride 0.9% 500 ML IV STA (14:30)
--- NOTE | 2016-12-12 15:28 | RAD ---
PROCEDURE: Left Knee Radiographs. HISTORY: Pain. COMPARISON: None. FINDINGS: BONES: There is an acute comminuted displaced impacted fracture in the distal femur. JOINTS: Status post total knee arthroplasty. JOINT EFFUSION: There is a small suprapatellar joint effusion. OTHER FINDINGS: Atherosclerotic vascular calcifications are present. IMPRESSION: Acute comminuted displaced impacted fracture in the distal femur.
--- NOTE | 2016-12-12 15:33 | RAD ---
PROCEDURE: Left Hip X-ray Radiographs. HISTORY: fall r/o fx COMPARISON: None. FINDINGS: BONES: There is an acute nondisplaced left intertrochanteric fracture. The pelvic ring is intact. There is mild diffuse bone demineralization. There is no evidence of bone destruction. JOINTS: There is mild degenerative osteoarthrosis in the hip joints and sacroiliac joints. SOFT TISSUES: Normal. OTHER FINDINGS: None. IMPRESSION: Acute nondisplaced left intertrochanteric fracture.
--- NOTE | 2016-12-12 16:25 | RAD ---
HISTORY: preop COMPARISON: No prior. FINDINGS: LUNGS: No active pulmonary disease. PLEURA: No significant pleural effusion identified, no pneumothorax apparent. CARDIOVASCULAR: Cardiomegaly. No evidence of acute, significant cardiovascular disease. OSSEOUS STRUCTURES: No significant abnormalities. VISUALIZED UPPER ABDOMEN: Normal. OTHER FINDINGS: None. IMPRESSION: No active disease.
[2016-12-12] MEDS ORDERED: Levalbuterol 1.25 MG/3 ML Inhal Soln UD IH PRN (16:43)
[2016-12-12] MEDS: Pantoprazole 40 mg EC Tab PO SCH (18:06)
[2016-12-12] MEDS: Nystatin 100,000 Units/gm Topical Pow(15 gm) TOP SCH (18:23)
--- NOTE | 2016-12-12 18:38 | RAD ---
PROCEDURE: Left Knee Radiographs. HISTORY: Pain. COMPARISON: Right knee radiographs 12/12/2016. FINDINGS: BONES: A comminuted fracture of the distal left femur is appreciated somewhat reduced in the interval but not completely. Limited partial reduction is noted in this patient with a total knee replacement in position. No interval tibial or fibular fracture appreciable. JOINTS: Left total knee replacement hardware noted. . JOINT EFFUSION: None. OTHER FINDINGS: None. IMPRESSION: Partial reduction of major fracture fragment and comminuted fracture of the distal left femur which involves purchase at the femoral prosthetic component of the total knee replacement.
--- NOTE | 2016-12-12 19:02 | CT ---
PROCEDURE: CT Pelvis without contrast HISTORY: left hip pain r/o fx COMPARISON: None. TECHNIQUE: Contiguous axial images of the pelvis . No intravenous or oral contrast given. Coronal and sagittal reformats generated. Radiation dose: Total exam DLP = 1068.47 mGy-cm. This CT exam was performed using one or more of the following dose reduction techniques: Automated exposure control, adjustment of the mA and/or kV according to patient size, and/or use of iterative reconstruction technique. FINDINGS: BLADDER: Unremarkable. No mass. REPRODUCTIVE ORGANS: Prior hysterectomy identified. No suspicious adnexal findings grossly. VISUALIZED BOWEL: Unremarkable. PERITONEUM: Unremarkable, as visualized. No free fluid. No free air. LYMPH NODES: Unremarkable. No enlarged lymph nodes. BONES: No fracture subluxation or dislocation. Pubic symphysis remains intact as well as the right of the pelvic ring. Degenerate change of the bilateral sacroiliac and hip joints. There is a nonaggressive sclerotic lesion identified at the left intertrochanteric region of the proximal left femur. VASCULATURE: A non aneurysmal but atherosclerotic inferior abdominal aorta is appreciated. Wall stent is identified at the proximal right common iliac artery with atherosclerotic change identified in the bilateral iliac arterial systems throughout the pelvis. OTHER FINDINGS: None. IMPRESSION: No fracture subluxation or dislocation involving either hip joint bilaterally. Other additional findings are as discussed above.
--- NOTE | 2016-12-12 19:07 | CT ---
PROCEDURE: CT LEFT KNEE WITHOUT CONTRAST HISTORY: left distal fem fx please evaluate COMPARISON: Left knee radiographs 12/12/2016. TECHNIQUE: A volumetric CT acquisition was performed using serial contiguous sections through the left knee without intravenous contrast as requested. Total DLP radiation dose: 484.58 mGy. FINDINGS: The patella proximal tibia and proximal fibula are intact without fracture peritoneum placed hardware is appreciated with the tibial prosthetic component in good apparent position. However, a comminuted fracture of the distal femur is identified impacted with the distal left femoral diaphysis impacted and surrounded by distal metaphyseal fragments. Artifact from the femoral component obscures evaluation is significantly. No prominent dislocation or subluxation appreciable. Vascular calcification is seen in the posterior soft tissues and there is a limited amount of blood identified in the suprapatellar bursa. IMPRESSION: Impacted, comminuted fracture of the distal right femur without obvious dislocation. Artifact from total left knee replacement hardware obscure the evaluation. Please see discussion above.
[2016-12-12 19:14] LABS: INR 2.57 (0.93-1.08)
[2016-12-12] MEDS: Insulin Reg-HIGH-Coverage SC SCH (22:25)
[2016-12-12] MEDS: HYDROmorphone 0.5 mg/0.5 ml ISec IVP PRN (23:24)
--- NOTE | 2016-12-12 23:55 | HP ---
HISTORY OF PRESENT ILLNESS: The patient is a 71-year-old known to me from multiple previous admissions. She was recently discharged home almost a week ago after she had left big toe amputation done. She was ambulating with a walker. The patient states she got up but lost balance and fell and was unable to walk. She was having left knee pain. She is having difficulty bending her knee, so today, when homemaker and daughter saw her. Her knee was swollen, so she was brought to emergency room for further evaluation. She cannot recall hitting her head or losing consciousness. PAST MEDICAL HISTORY: She has significant past medical history positive for: 1. Hypertension. 2. Coronary artery disease, status post cardiac catheterization with RCA occlusion. 3. Hyperlipidemia. 4. Pulmonary hypertension. 5. COPD. 6. History of congestive heart failure. 7. History of GI bleed. 8. 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 9. Chronic anemia, status post multiple blood transfusion, and iron infusion. 10. History of bilateral knee replacement. 11. Right breast lumpectomy. 12. Chronic Afib. ALLERGIES: SHE IS NOT ALLERGIC TO ANY MEDICATIONS. MEDICATIONS AT HOME: 1. She is on nystatin under the breast. 2. Metoprolol 25 twice a day. 3. Xopenex every 6 hours. 4. Glipizide 10 mg twice a day. 5. Lasix 40 mg twice a day. 6. Aspirin 81 daily. 7. Xanax 0.25 twice a day. 8. Hydralazine 50 mg twice a day. 9. Coumadin 5 mg daily. 10. Diovan 320 daily. 11. Spiriva 18 mcg daily. 12. Januvia 100 mg daily. 13. Protonix 40 mg daily. 14. Oxycodone 1 tablet q.6. SOCIAL HISTORY: She lives by herself. She has daughter who lives close to her. She still actively smoke almost one pack a day. Denies alcohol use. REVIEW OF SYSTEMS: Significant for left knee pain, difficulty walking. PHYSICAL EXAMINATION: GENERAL: She is awake and alert, complaints of pain. VITAL SIGNS: She is afebrile, pulse 79, respiration 18, and blood pressure 102/54. LUNGS: Bilateral fair airflow. Diffusely decreased breath sound. HEART: S1 and S2 audible. ABDOMEN: Soft, nontender. No rebound, no guarding. NEUROLOGIC: The patient is awake and alert, able to communicate. Having difficulty bending left knee with +2 leg edema. LABORATORY DATA: WBC is 10.4, hemoglobin 9.2, hematocrit 29, platelet 246. Chemistry; sodium 142, potassium 4.2, chloride 107, CO2 of 25, BUN 25, creatinine 1.0, and blood sugar of 135. X-ray of the knee shows acute comminuted displaced, impacted fracture in the distal femur, acute nondisplaced left intertrochanteric fracture. ASSESSMENT: 1. Status post mechanical fall. 2. Nondisplaced left intertrochanteric fracture.. 3. Left distal femur fracture. 4. Hypertension. 5. Coronary artery disease. 6. Pulmonary hypertension. 7. Chronic obstructive pulmonary disease. 8. Non-insulin dependent diabetes. 9. Hyperlipidemia. 10. Chronic anemia. 11. History of gastrointestinal bleed secondary to arteriovenous malformation. PLAN: We will restart the patient her usual medications. Monitor her blood sugars. Dr. Arnett had been requested cardiology consult by Dr. Sandra. It is going to be difficult surgical intervention because of her fracture at 2 site and with multiple comorbidities. We will discuss with the family. There might be consideration to transfer her to [facility] for joint replacement. Edwige Kirby MD
[2016-12-13] MEDS: HYDROmorphone 0.5 mg/0.5 ml ISec IVP PRN ×3 (03:14→16:44)
--- NOTE | 2016-12-13 04:01 | CON ---
DATE: 12/12/2016 LOCATION: The patient in room number 571, bed 1. REASON FOR CONSULTATION: Cardiac risk stratification for surgery for fractured knee. The patient known case of peripheral vascular disease, coronary artery disease, hypertension, hyperlipidemia, diabetes mellitus, COPD, renal insufficiency, chronic atrial fibrillation, and moderate aortic stenosis. HISTORY OF PRESENT ILLNESS: The patient is a 71-year-old female who known to have diabetes mellitus, hypertension, hyperlipidemia, COPD, one-vessel coronary artery disease, right coronary occluded and has very well collateralized status post cardiac catheterization about two and a half years ago, renal insufficiency, chronic atrial fibrillation on anticoagulation and moderate aortic stenosis, PVD, Recent Amputation of Left Foot Large Toe due to Gangrene few weeks ago. Now admitted with history that she has a fall at home. There is no history of syncope and have severe pain in the left knee and found to have fracture. Cardiology consult has been requested for risk stratification and preop evaluation. The patient right now lying flat in bed without any chest pain, shortness of breath or palpitation. PAST MEDICAL HISTORY: The patient's past medical history is positive for morbid obesity, COPD, chronic atrial fibrillation, and moderate aortic stenosis, wall area of about 1 cm square, CHF secondary to diastolic dysfunction, type 2 diabetes, COPD, and morbid obesity.PVD. Status post Amputation Left Foot Large Toe few weeks ago. PERSONAL HISTORY: The patient is still actively smoking. Denies any alcohol abuse. RECENT CARDIO-VASCULAR WORKUP: The patient had transesophageal echo on 2016, which showed ejection fraction of 65%, trace aortic regurgitation, moderate aortic stenosis, valve area 1 cm square, mild tricuspid regurgitation, moderate to severe mitral regurgitation, status post cardiac catheterization two and a half years ago, single vessel disease, RCA totally occluded, but was very well collateralized from LAD and no intervention was done for this. 1. Peripheral vascular disease. Recently the patient was found to have gangrene of the left foot large toe for which the patient underwent angiography and this was done on 11/26/2016, successful recanalization of a long segment collusion of the left anterior tibial artery utilizing atherectomy and angioplasty. 2. Successful focal angioplasty of the proximal and mid left posterior tibial artery. 3. Previously treated left SFA and popliteal segments were widely patent. 4. Severe left pedal occlusive disease. 5. Successful rescue thrombosis of small emboli in the left tibioperoneal trunk and distal tibial vessel following that the patient had amputation of the large toe of the left foot because of gangrene. HOME MEDICATIONS: The patient's home medication included metoprolol tartrate 25 mg b.i.d., Xopenex hand nebulizer therapy, insulin lispro, glipizide 10 mg p.o. b.i.d., Lasix 40 b.i.d., aspirin 81 mg daily, hydralazine 50 mg b.i.d., Mucinex LA 200 mg p.o. q. 4 hours p.r.n., warfarin 5 mg daily, Diovan 320 mg p.o. daily, Spiriva 18 mcg IH daily, spironolactone 25 mg p.o. daily, Januvia 100 mg p.o. daily, Protonix 40 mg daily, Endocet 10-325 mg tablet one tablet p.o. q. 6 hours p.r.n., and isosorbide mononitrate 30 mg p.o. daily. PHYSICAL EXAMINATION VITAL SIGNS: Blood pressure of 151/77, respirations of 21, pulse of 72, and temperature of 98.2. HEENT: Head is normocephalic. Eyes: Pupils are normal. Conjunctiva slightly pale. NECK: JVP low. Carotids are equal. Thorax, AP diameter normal. LUNGS: Clear. CARDIOVASCULAR: S1 and S2. Ejection systolic murmur grade III/. No rub. ABDOMEN: Protuberant. No organomegaly. EXTREMITIES: The patient has amputation of the left foot, large toe because of gangrene. This was done about left knee the one which showed fracture with the fall. There is no clubbing or cyanosis. LABORATORY DATA: WBC is 10.4, hemoglobin is 9.2, hematocrit is 29.2, and platelets are 240. Sodium is 142, potassium is 4.2, BUN is 35, and creatinine is 1.0. Random sugar of 135. Calcium is 9.0 and magnesium is 1.9. DIAGNOSTIC DATA: CHEST XRAY; no active disease, cardiomegaly. EKG; Atrial Fibrillation Rate Controlled. Old Inferior Wall [place].Clockwise Rotation. IVCD. ST_T Changes. No Change from Old EKGs including EKG on 07/16/2016. ASSESSMENT: Fractured left knee, coronary artery disease, single vessel coronary disease, right coronary artery totally occluded, well collateralized, diabetes mellitus, hypertension, chronic obstructive pulmonary disease, hyperlipidemia, morbid obesity, active smoker, peripheral vascular disease, and moderate aortic stenosis, valve area of 1.0 cm square. Left ventricular ejection fracture 60% to 65%, mild tricuspid regurgitation, moderate mitral regurgitation and aortic valve gradient 21 mmHg. Active tobacco abuse, status post amputation large toe of the left foot due to gangrene, peripheral vascular disease, atrial fibrillation, chronic, morbid obesity and anemia. PLAN: The patient's prothrombin time today is 27.8 and INR is 2.57. From a cardiac point of view and given all the patient's comorbidities, the patient moderate to high risk for surgery, but there is no absolute contraindication for Surgery. If we do not do surgery, the patient probably will not walk again, so with that understanding that the patient is moderate to high risk, the patient can go for surgery. The patient is on hydralazine 50 mg b.i.d., Diovan 320 daily, glipizide 10 mg b.i.d., insulin as ordered, isosorbide mononitrate 30 daily, furosemide 40 IV daily, metoprolol 25 mg b.i.d., Nicoderm patch, Protonix 40 mg daily, and Xopenex hand nebulizer therapy. The patient will have repeat labs, CBC and prothrombin time in the morning. We will follow. Brianna Deng MD [facility]
[2016-12-13 07:14] LABS: BASO # 0.03 K/mm3 (0.0-2.0); BASO % 0.3 % (0.0-3.0); EOS # 0.2 (0.0-0.7); EOS % 2.2 % (1.5-5.0); GRAN # 6.56 (1.4-6.5); GRAN % 72.3 % (50.0-68.0); HEMATOCRIT 26.8 % (36.0-48.0); LYMPH # 1.2 (1.2-3.4); LYMPH % 12.7 % (22.0-35.0); MEAN CELL VOLUME 92.1 fl (80.0-105.0); MEAN CORPUSCULAR HEMOGLOBIN 28.5 pg (25.0-35.0); MEAN PLATELET VOLUME 9.9 fl (7.0-11.0); MONO # 1.1 (0.1-0.6); MONO % 12.5 % (1.0-6.0); RED CELL DISTRIBUTION WIDTH 16.8 % (11.5-14.5); WHITE BLOOD COUNT 9.1 10^3/ul (4.5-11.0)
[2016-12-13 07:16] LABS: INR 2.67 (0.93-1.08)
[2016-12-13 07:44] LABS: ALB/GLOB RATIO 1.4 (1.1-1.8); ALKALINE PHOSPHATASE 96 U/L (38-126); ALT/SGPT 37 U/L (7-56); AST/SGOT 24 U/L (14-36); BILIRUBIN,TOTAL 0.5 mg/dL (0.2-1.3); BLOOD UREA NITROGEN 32 mg/dL (7-21); CALCIUM 9.1 mg/dL (8.4-10.5); CARBON DIOXIDE 24 mmol/L (21-33); CHLORIDE 108 mmol/L (98-107); GFR AFRICAN-AMERICAN > 60; GLUCOSE,RANDOM 94 mg/dL (70-110); POTASSIUM 4.1 mmol/L (3.6-5.0); SODIUM 142 mmol/L (132-148); TOTAL PROTEIN 5.8 g/dL (5.8-8.3)
[2016-12-13] MEDS: Insulin Reg-HIGH-Coverage SC SCH ×3 (08:13→16:47)
[2016-12-13] MEDS: Pantoprazole 40 mg EC Tab PO SCH (09:42)
[2016-12-13] MEDS: Nystatin 100,000 Units/gm Topical Pow(15 gm) TOP SCH (09:42)
--- NOTE | 2016-12-13 10:56 | CON ---
HISTORY OF PRESENT ILLNESS: A 71-year-old diabetic female, well-known to the [facility], seen at bedside for continued evaluation and management of her amputated left hallux. Her amputation was approximately 2 weeks ago at which time she was discharged home and apparently and unfortunately, she tripped and fell on December 12 and fractured her left femur. 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 CURRENT MEDICATIONS: Include insulin, glipizide, valsartan, hydralazine, furosemide, isosorbide, metoprolol, nicotine patch, nystatin, levalbuterol and Protonix EC. ALLERGIES: THE PATIENT HAS NO KNOWN DRUG ALLERGIES. SOCIAL HISTORY: The patient was a smoker for over 50 years; she states she recently stopped, approximately 3 weeks ago. There is no history of alcohol or drug abuse. The patient is , lives with her family. PAST SURGICAL HISTORY: The patient had undergone left hallux amputation secondary to gangrene in November 2016. OBJECTIVE: VITAL SIGNS: Today revealed temperature of 98.9, pulse rate of 74, blood pressure of 101/52 and respiratory rate 18. EXTREMITIES: Nonpalpable posterior tibial pulse noted bilaterally, weakly palpable dorsalis pedis pulse noted bilaterally. The patient is unable to detect 5.07 g monofilament wire testing bilaterally. Capillary filling time is delayed x9. There is noted to be absent pedal hair growth in lower extremities and lower extremity skin presents thin, shining and discolored bilaterally. The patient is unable to move her left leg due to her fracture and is in severe pain upon any palpation or range of motion. Left foot presents with an amputated hallux surgical site, has all sutures intact. There are no signs of dehiscence. There are no signs of drainage, no signs of acute bacterial infection. LABORATORY FINDINGS: Revealed white count of 9.1, hemoglobin of 8.3, hematocrit of 26.8, platelet count of 252. ASSESSMENT: Status post left hallux amputation secondary to gangrene, approximately 2 weeks ago. PLAN: The patient's surgical site was evaluated, there was found to be no evidence of wound dehiscence or acute bacterial infection. We will apply a dry sterile dressing to the wound daily while the patient is in-house. The patient will be seen and followed daily while in-house. Deric Henriquez DPM
--- NOTE | 2016-12-13 13:32 | PN ---
DATE: 12/13/2016 LOCATION: The patient is in room #571, bed 1. REASON FOR CONSULTATION: Coronary artery disease, atrial fibrillation, aortic stenosis, and fracture of the left knee due to fall. SUBJECTIVE: The patient is lying flat in bed without chest pain, shortness of breath or palpitation. PHYSICAL EXAMINATION: VITAL SIGNS: Blood pressure is 101/52, respirations 18, pulse 74, and temperature 98.9. HEENT: Head is normocephalic. Eyes: Pupils are normal. Conjunctivae slightly pale. NECK: JVP low. Carotids are equal. THORAX: AP diameter is normal. LUNGS: Clear. CARDIOVASCULAR: S1 and S2. Ejection systolic murmur grade 3/6. Irregular rhythm due to atrial fibrillation. ABDOMEN: Soft. No organomegaly. EXTREMITIES: As mentioned, the patient had fracture of left knee. The patient also had recent amputation of the large toe of the left foot. There is no clubbing or cyanosis. LABORATORY DATA: Show WBC 9.1, hemoglobin 8.3, hematocrit 26.8,and platelets 252. Sodium 142, potassium 4.1, BUN 32, and creatinine 0.9. AST, ALT, protein, and albumin were normal. Random sugar 123. Prothrombin time today is 28.8. INR is 2.67. DIAGNOSES: Fracture of left knee, coronary artery disease, single-vessel coronary artery disease, right coronary artery total occluded, well collateralized from the left anterior descending, atrial fibrillation, chronic hypertension, moderate aortic stenosis, valve area of 1.0 cm sq, left ventricular ejection fraction 60 to 65%. 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 The patient had transesophageal echo on 04/07/2016. PLAN: Compare the EKG with the old EKGs and no change. EKG shows atrial fibrillation, rate controlled, old inferior wall IL, clockwise rotation which is showing poor progression of R wave across V lead. The patient also has intraventricular conduction defect, there is some ST-T changes, ischemic trait, but these are same changes which the patient has on old EKGs. Anemia, active tobacco abuse, renal dysfunction. Plan is the patient still therapeutic PT/INR we will give vitamin K 5 mg p.o. daily, also we will stop Lasix. The patient does have any signs of fluid overload at this movement. Dr. Tony Arnett is going to give blood transfusion and preparation for surgeries of the knee and we will going repeat SMA-7, CBC, and PT/INR tomorrow morning. Please refer to my consult note of yesterday with all the details of cardiovascular history and also risk stratification which shows the patient is moderate to high risk because of comorbidities, but there is no absolute contraindications to not to do surgery. The patient is already on beta chico and isosorbide. We will follow with you closely. Brianna Deng MD
[2016-12-13] MEDS ORDERED: Enoxaparin 30 mg Syringe SC SCH (14:00)
[2016-12-13 16:29] VITALS: BP 149/73; PULSE 86; RESP 22; TEMP 98.4; O2SAT 100
--- NOTE | 2016-12-13 19:27 | CARD ---
APPROVED REPORT EKG Measurement Heart [id number] <Conclusion> Atrial fibrillation Nonspecific intraventricular block Cannot rule out Septal infarct, age undetermined T wave abnormality, consider lateral ischemia or digitalis effect Abnormal ECG
--- NOTE | 2016-12-14 05:41 | DS ---
HISTORY OF PRESENT ILLNESS: The patient is a 71-year-old known to me from multiple previous admission. The patient had multiple comorbidities. She had mechanical fall at home sustained left hip and knee fracture that she has total knee replacement done couple of years ago and was evaluated by Dr. Arnett who thinks this is going to be a complicated surgery and need to be , so he made arrangement and spoke to who is willing to accept the patient and plan is being made to transfer her to [facility] later on today for her surgical intervention. PHYSICAL EXAMINATION: GENERAL: She is awake, alert, and communicative. VITAL SIGNS: She is afebrile, pulse 74, respirations 18, and blood pressure 101/52. LUNGS: Bilateral fair airflow. No rhonchi or crackle. HEART: S1 and S2 audible. Regular. Rate controlled. ABDOMEN: Soft and nontender. Obese. No hepatosplenomegaly. NEUROLOGIC: The patient is awake and alert, able to communicate. EXTREMITIES: Left knee is in a mobilizer. LABORATORY DATA: WBC is 9.1, hemoglobin 8.3, hematocrit 26.8, and platelet 252. PT 28.8 and INR 2.67. Chemistry: Sodium 142, potassium 4.1, chloride 108, CO2 of 24, BUN 32, creatinine 0.9, and blood sugar of 194. ASSESSMENT: 1. Status post fall. 2. Left hip fracture. 3. Left knee fracture, lower condyle of femur. 4. Chronic obstructive pulmonary disease. 5. Hypertension. 6. Pulmonary hypertension. 7. Coronary artery disease. 8. Non-insulin dependent diabetes. PLAN: The patient will be transferred to [facility] later on today for possible intervention on Thursday. At this point, she is fully anticoagulated. Edwige Kirby MD
--- NOTE | 2016-12-15 08:48 | DS ---
ORTHOPEDIC DISCHARGE REPORT LOCATION: Presently in room #571, bed #1. The patient is being ready for transfer to [facility] under the speciality care for a complex fracture of her left femur just above her total knee where it is completely unstable total knee replacement put in 10 years ago. Doctor that is accepting the case is Dr. Gregorio Bowman who is a customer sales consultant type of orthopedic doctor who does these speciality cases because of his expertise in the orthopedic hardware and prosthesis that is needed to reconstruct her left knee, so she could ambulate again. We are getting [place] ready [place] [facility] [place]_ with a hemoglobin 8.2 and the realization that she is going to need surgery in the next 2 days and they will transfuse her there and get her ready for surgery that is very possible, so we are going to send her by ambulance today. The family consented to the transfer and the patient also consents. Dr. Deng said her cardiac state is good to go for surgery and they will send her with a chart and Dr. Deng's consult. FINAL DIAGNOSES: Complex fracture left distal femur above her total knee that is completely unstable femoral prosthesis component of that left total knee that needs expertise reconstructive surgery by Dr. Gregorio Bowman at [facility]. Tony Arnett DO [email or web address]
== END 2016-12-13 17:12 | disposition short-term general hospital (02) | DRG 536 ==
LOC: ED 13:17 → ERH 15:27 → 5RSO 18:29
PROVIDERS: ADMIT Internal Medicine; ATTEND Internal Medicine
DX: S72.142A Displaced intertrochanteric fracture of left femur, initial encounter for closed fracture (principal); E11.42 Type 2 diabetes mellitus with diabetic polyneuropathy; I11.0 Hypertensive heart disease with heart failure; E66.01 Morbid (severe) obesity due to excess calories; I50.32 Chronic diastolic (congestive) heart failure; I25.82 Chronic total occlusion of coronary artery; S72.402A Unspecified fracture of lower end of left femur, initial encounter for closed fracture; W01.0XXA Fall on same level from slipping, tripping and stumbling without subsequent striking against object, initial encounter; I08.3 Combined rheumatic disorders of mitral, aortic and tricuspid valves; E11.51 Type 2 diabetes mellitus with diabetic peripheral angiopathy without gangrene; Z96.653 Presence of artificial knee joint, bilateral; Y92.009 Unspecified place in unspecified non-institutional (private) residence as the place of occurrence of the external cause; Z89.412 Acquired absence of left great toe; E78.5 Hyperlipidemia, unspecified; D64.9 Anemia, unspecified; F17.200 Nicotine dependence, unspecified, uncomplicated; I25.10 Atherosclerotic heart disease of native coronary artery without angina pectoris; I25.2 Old myocardial infarction; I27.2 Other secondary pulmonary hypertension; I48.2 Chronic atrial fibrillation; J44.9 Chronic obstructive pulmonary disease, unspecified; N28.9 Disorder of kidney and ureter, unspecified; Z79.01 Long term (current) use of anticoagulants; Z79.82 Long term (current) use of aspirin; Z79.84 Long term (current) use of oral hypoglycemic drugs; Z79.899 Other long term (current) drug therapy; Q27.33 Arteriovenous malformation of digestive system vessel